=== PATIENT | female | born 1950 | race Caucasian/White ===

== ENCOUNTER → 2016-12-18 | Outpatient (CLI) | payer OTHER ==
[~2016-12-18] MED LIST: ALIGN PO; APIX1TAB3 PO; CALC8.5C PO; DIGO0.1267 PO; DILT-115 PO; FLUO40CA8 PO; LISI20TA3 PO; LSN20 PO; METO1TAB69 PO; MISC4CAP PO; MULT-506 PO; MULTCHW4 PO; MULTTAB58 PO; ONDA4TAB10 SL; OXYC-57 PO; OXYC-609 PO; OXYC1TAB3 PO; PRAV20TA PO; PRLSR20 PO; TPRSR/100 PO; VANC5CAP PO; ZINC100T2 PO; ZINC1CAP PO
[2016-12-18 16:02] LABS: URINE APPEARANCE TURBID (CLEAR); URINE COLOR DK YELLOW; URINE EPITHELIAL CELL AUTO >30 /lpf (0-5); URINE NITRITE NEG (NEG); URINE SPECIFIC GRAVITY 1.024 (1.000-1.030); UROBILINOGEN NEG (NEG)
[2016-12-18 16:19] LABS: MANUAL MICROSCOPIC REQUIRED? NO; REVIEW REQ? YES; URINE BILIRUBIN NEG (NEG)
== END | disposition home or self-care (01) ==
LOC: C.LAB1850 14:24
PROVIDERS: ATTEND Internal Medicine Infectious Disease
DX: R31.9 Hematuria, unspecified (principal)

== ENCOUNTER → 2016-12-24 | Outpatient (CLI) | payer OTHER ==
--- NOTE | 2016-12-24 11:30 | DIAGNOSTIC IMAGING REPORT ---
RENAL ULTRASOUND HISTORY: HEMATURIA COMPARISON: Abdomen and pelvis CT outside hospital 06/22/2016. FINDINGS: Right kidney: 11.4 cm. No hydronephrosis. Normal corticomedullary differentiation and cortical thickness. There is a 1 cm lower pole stone. Left kidney: 11.8 cm. No hydronephrosis. Normal corticomedullary differentiation and cortical thickness. There is a 3.5 x 3.1 cm cyst within the interpolar region. This is not significantly change. There are few stones within largest in the lower pole measuring 1 cm. Bladder: No bladder wall thickening. The bilateral ureteral jets were identified. IMPRESSION: 1. Bilateral nephrolithiasis. No hydronephrosis. 2. Left renal cyst, unchanged. Electronically signed by: Sky Gardner M.D. 12/24/2016 11:28 AM Dictated Date/Time: 12/24/2016 9:44 AM
== END | disposition home or self-care (01) ==
LOC: C.ULTR 08:53
PROVIDERS: ATTEND Internal Medicine Infectious Disease
DX: R31.9 Hematuria, unspecified (principal); N20.0 Calculus of kidney; N28.1 Cyst of kidney, acquired

== ENCOUNTER → 2016-12-27 | Outpatient (CLI) | payer OTHER ==
[2016-12-27 15:36] LABS: BASO % 0.2 %; BASO ABS # 0.01 K/uL (0-0.2); COMPLETE YES; EOS % 1.7 %; HEMATOCRIT 44.4 % (37-47); IG% 0.2 %; LYMPH % 33.1 %; LYMPH ABS # 2.13 K/uL (1.2-3.4); MEAN CELL VOLUME 96.9 fL (80-100); MEAN CORPUSCULAR HEMOGLOBIN 32.3 pg (25-34); MEAN CORPUSCULAR HGB CONC 33.3 g/dl (32-36); MEAN PLATELET VOLUME 9.4 fL (7.4-10.4); MONO % 3.6 %; NEUT % 61.2 %; PLATELET COUNT 277 K/uL (130-400); RED BLOOD COUNT 4.58 M/uL (4.2-5.4); WHITE BLOOD COUNT 6.44 K/uL (4.8-10.8)
[2016-12-27 16:21] LABS: BLOOD UREA NITROGEN 19 mg/dl (7-18); CALCIUM 9.1 mg/dl (8.5-10.1); CARBON DIOXIDE 28 mmol/L (21-32); CHLORIDE 107 mmol/L (98-107); GLUCOSE 192 mg/dl (70-99); POTASSIUM 4.1 mmol/L (3.5-5.1); SODIUM 143 mmol/L (136-145)
== END | disposition home or self-care (01) ==
LOC: C.LAB 14:34
PROVIDERS: ATTEND Urology
DX: N20.0 Calculus of kidney (principal)

== ENCOUNTER → 2017-01-04 | Day surgery (SDC) | payer OTHER ==
[2016-12-31 15:37] VITALS: Ht 160 cm; Wt 77.3 kg
[~2017-01-04] VITALS: Ht 160 cm; Wt 77.3 kg
[~2017-01-04] MED LIST changes: +ATROPINE SULFATE 0.1 MG/ML 5ML SYR IV PRN; +CIPROFLOXACIN 400MG / D5W IV SCH; +EpHEDrine SULFATE INJ 50 MG/ML AMP IV PRN; +FENTANYL CITRATE INJ 50 MCG/1 ML 2 ML VIAL IV PRN; +FENTANYL CITRATE INJ 50 MCG/1 ML 2 ML VIAL ONE; +FLUMAZENIL 0.1 MG/1 ML 10 ML VIAL IV PRN; +HYDROmorphone INJ 2 MG/ML SYR/VIAL IV PRN; +LABETALOL HCL IV 5 MG/ML 20ML IV PRN; +LACTATED RINGER'S 1000ML 1,000 ML IV SCH; +LIDOCAINE HCL 2% 2 ML VIAL (20MG/ML) ONE; -LSN20 PO; +MEPERIDINE HCL 25 MG/ML CARP IV PRN; +MIDAZOLAM HCL 1 MG/ML 2ML VIAL ONE; -MISC4CAP PO; -MULTCHW4 PO; -MULTTAB58 PO; +NALOXONE HCL 0.4 MG/1 ML VIAL/CARP IV PRN; -ONDA4TAB10 SL; +ONDANSETRON INJ 2 MG/ML 2 ML VIAL IV PRN; +ONDANSETRON INJ 2 MG/ML 2 ML VIAL ONE; +OXYCODONE/ACETAMINOPHEN 5-325 TAB PO PRN; +PHENYLEPHRINE 100MCG/ML 5ML SYR IV PRN; +PROPOFOL IV EMULSION 10 MG/ML 20 ML VIAL IV ONE; -TPRSR/100 PO; -ZINC100T2 PO
--- NOTE | 2017-01-04 11:18 | DIAGNOSTIC IMAGING REPORT ---
KUB CLINICAL HISTORY: N20.0 [id number] COMPARISON STUDY: 11/27/2016 FINDINGS: There are surgical clips within the right upper quadrant consistent with a prior cholecystectomy. There is anastomotic suture line present within the left mid abdomen and left upper quadrant. The findings are suggestive of a prior gastric bypass. There is a 13 mm lower pole right renal calculus. There are multiple small cluster left renal calculi measuring 2.6 cm in aggregate. Pelvic basin calcifications remain similar and likely represent phleboliths. IMPRESSION: Bilateral nephrolithiasis, similar to the preceding study. Electronically signed by: Shahid Dempsey M.D. 01/04/2017 11:17 AM Dictated Date/Time: 01/04/2017 11:15 AM
--- NOTE | 2017-01-04 12:08 | History & Physical Bridge Note ---
H&P Re-Evaluation Bridge Note: I have examined the patient, reviewed the History & Physical and in the interval since the performance of the History & Physical I have noted the following changes of clinical significance: No changes noted
--- NOTE | 2017-01-04 12:21 | Discharge Instructions ---
Discharge Instructions Admission Reason for Admission: Stones Discharge Discharge Diagnosis / Problem: Right renal ESWL Discharge Goals Goal(s): Decrease discomfort, Improve function, Improve disease control, Therapeutic intervention Activity Recommendations Activity Limitations: as noted below Lifting Limitations: gradually increase as tolerated Exercise/Sports Limitations: rest today May Resume Sexual Activity: when tolerated Shower/Bathe: no limitations Driving or Machine Use: resume 1 day after discharge . Instructions / Follow-Up Instructions / Follow-Up Follow-up as planned in office with KUB Xray prior to visit. Strain urine and bring in stone fragments to visit. Discharge Diet Recommended Diet: Regular Diet (good fluid intake) Procedures Procedures Performed: Right renal ESWL Pending Studies Studies pending at discharge: no Medical Emergencies . Who to Call and When: Medical Emergencies: If at any time you feel your situation is an emergency, please call 911 immediately. . Non-Emergent Contact Non-Emergency issues call your: Urologist Call Non-Emergent contact if: you have a fever, temperature is above 101, your pain is not controlled, your pain is worsening, your pain is unusual for you, your pain is concerning you, you have any medication questions . . "Provider Documentation" section prepared by Garcia Alegria. VTE Core Measure Inpt VTE Proph given/why not?: SCD's [place] Drug Monitoring Program Search Results: patient reviewed within database, no issues identified
--- NOTE | 2017-01-04 14:28 | [facility] Post Operative Brief Note ---
Immediate Operative Summary Operative Date Jan 04, 2017. Pre-Operative Diagnosis Right Renal Calculi Post-Operative Diagnosis Same Procedure(s) Performed Right Renal Extracorporeal Shock Wave Lithotripsy Surgeon Dr. Blu Alegria Dials Inspector Surgeon(s) None Estimated Blood Loss 0 mL Specimens None Drains NA Anesthesia MAC Complication(s) None Disposition Recovery Room / PACU
--- NOTE | 2017-01-04 14:51 | OPERATIVE REPORT ---
DATE OF OPERATION: 01/04/2017 PREOPERATIVE DIAGNOSIS: Right renal stone. POSTOPERATIVE DIAGNOSIS: Same. PROCEDURE: Right-sided renal extracorporeal shockwave lithotripsy. SURGEON: Dr. Garcia Alegria. JOB PLACEMENT OFFICER: None. ANESTHESIA: General anesthesia with laryngeal mask. COMPLICATIONS: None. FINDINGS: Good stone fragmentation on fluoroscopy. No intravenous antibiotics provided secondary to history of C. difficile colitis. DETAILS OF PROCEDURE: The patient was brought to the litho suite. She was correctly identified and the stone was visualized on his most recent x-rays. After the correct time out was performed the patient was positioned over the therapy head. An adequate level of anesthesia was administered. The extracorporeal shockwave lithotripsy treatment was then commenced. Please see the [place] Kidney Stone Management sheet for complete treatment summary. After completion of the procedure the patient was taken to the recovery room in stable condition. I attest to the content of the Intraoperative Record and any orders documented therein. Any exceptio ns are noted below.
[2017-01-04 15:01] VITALS: BP 154/88; PULSE 71; TEMP 36.5; O2SAT 96
--- NOTE | 2017-01-04 15:10 | Anesthesia Progress Nt - [facility] ---
Anesthesia Post Op Note Date & Time Jan 04, 2017 at 15:10 Vital Signs Pain Intensity: 0 Vital Signs Past 12 Hours Date Time Temp Pulse Resp B/P Pulse Ox O2 Delivery O2 Flow Rate FiO2 01/04/17 15:01 36.5 71 14 154/88 96 Room Air 01/04/17 14:36 36.5 62 14 128/76 96 Room Air 01/04/17 11:58 36.6 86 20 144/92 98 Room Air Notes Mental Status: alert / awake / arousable, participated in evaluation Pt Amnestic to Procedure: Yes Nausea / Vomiting: adequately controlled Pain: adequately controlled Airway Patency, RR, SpO2: stable & adequate BP & HR: stable & adequate Hydration State: stable & adequate Anesthetic Complications: no major complications apparent
== END | disposition home or self-care (01) ==
LOC: X.SURG 11:12
PROVIDERS: ATTEND Urology
DX: N20.0 Calculus of kidney (principal); R31.9 Hematuria, unspecified; I48.2 Chronic atrial fibrillation; I51.9 Heart disease, unspecified; I10 Essential (primary) hypertension; H91.90 Unspecified hearing loss, unspecified ear

== ENCOUNTER → 2017-01-17 | Outpatient (CLI) | payer OTHER ==
[~2017-01-17] MED LIST changes: -ATROPINE SULFATE 0.1 MG/ML 5ML SYR IV PRN; -CIPROFLOXACIN 400MG / D5W IV SCH; -EpHEDrine SULFATE INJ 50 MG/ML AMP IV PRN; -FENTANYL CITRATE INJ 50 MCG/1 ML 2 ML VIAL IV PRN; -FENTANYL CITRATE INJ 50 MCG/1 ML 2 ML VIAL ONE; -FLUMAZENIL 0.1 MG/1 ML 10 ML VIAL IV PRN; -HYDROmorphone INJ 2 MG/ML SYR/VIAL IV PRN; -LABETALOL HCL IV 5 MG/ML 20ML IV PRN; -LACTATED RINGER'S 1000ML 1,000 ML IV SCH; -LIDOCAINE HCL 2% 2 ML VIAL (20MG/ML) ONE; -MEPERIDINE HCL 25 MG/ML CARP IV PRN; -MIDAZOLAM HCL 1 MG/ML 2ML VIAL ONE; -NALOXONE HCL 0.4 MG/1 ML VIAL/CARP IV PRN; -ONDANSETRON INJ 2 MG/ML 2 ML VIAL IV PRN; -ONDANSETRON INJ 2 MG/ML 2 ML VIAL ONE; -OXYCODONE/ACETAMINOPHEN 5-325 TAB PO PRN; -PHENYLEPHRINE 100MCG/ML 5ML SYR IV PRN; -PROPOFOL IV EMULSION 10 MG/ML 20 ML VIAL IV ONE
--- NOTE | 2017-01-17 15:28 | DIAGNOSTIC IMAGING REPORT ---
KUB CLINICAL HISTORY: Nephrolithiasis EYES: 2 AP supine abdominal radiograph are compared to study dated 01/04/17 and correlated with abdominal CT dated 03/28/2016. There is a nonobstructed abdominal bowel gas pattern noting moderate colonic fecal retention. Suture material projects over the right upper and left lower quadrant. Cholecystectomy clips are noted. There has been partial fragmentation of a large right renal calculus as compared to previous. The largest residual fragment measures 1.3 cm. Additional smaller fragments project over the right renal pelvis. There are several stone fragments identified in the left kidney. These measure up to 7 mm. No calcifications are clearly identified projecting over the ureters. The skeletal structures are osteopenic. Mild lumbosacral spondylosis is noted. Calcified phleboliths in the pelvis are unchanged from previous. IMPRESSION: 1. The large calculus in the right kidney appears to have been partially fragmented as detailed above. 2. Additional stone fragments project over the left kidney. 3. No calcifications are clearly identified projecting over the ureters. Electronically signed by: Norberto Martinez M.D. 01/17/2017 3:26 PM Dictated Date/Time: 01/17/2017 3:23 PM
== END | disposition home or self-care (01) ==
LOC: C.RAD1850 15:07
PROVIDERS: ATTEND Urology
DX: N20.0 Calculus of kidney (principal)

== ENCOUNTER → 2017-01-17 | Outpatient (CLI) | payer OTHER ==
[2017-01-17 17:55] LABS: BASO % 0.1 %; BASO ABS # 0.01 K/uL (0-0.2); COMPLETE YES; EOS % 1.6 %; HEMATOCRIT 42.3 % (37-47); IG% 0.1 %; LYMPH % 27.8 %; LYMPH ABS # 1.94 K/uL (1.2-3.4); MEAN CELL VOLUME 94.6 fL (80-100); MEAN CORPUSCULAR HEMOGLOBIN 32.2 pg (25-34); MEAN PLATELET VOLUME 9.4 fL (7.4-10.4); MONO % 9.7 %; NEUT % 60.7 %; PLATELET COUNT 267 K/uL (130-400); RED BLOOD COUNT 4.47 M/uL (4.2-5.4); WHITE BLOOD COUNT 6.99 K/uL (4.8-10.8)
[2017-01-17 18:47] LABS: BLOOD UREA NITROGEN 17 mg/dl (7-18); BUN/CREATININE RATIO 19.4 (10-20); CALCIUM 8.8 mg/dl (8.5-10.1); CARBON DIOXIDE 25 mmol/L (21-32); CHLORIDE 109 mmol/L (98-107); CREATININE 0.87 mg/dl (0.60-1.20); GLUCOSE 132 mg/dl (70-99); POTASSIUM 3.9 mmol/L (3.5-5.1); SODIUM 144 mmol/L (136-145)
== END | disposition home or self-care (01) ==
LOC: C.LAB 16:25
PROVIDERS: ATTEND Urology
DX: N20.0 Calculus of kidney (principal)

== ENCOUNTER → 2017-01-17 | Outpatient (CLI) | payer OTHER | END | disposition home or self-care (01) | LOC: C.LABSPEC 17:30 | PROVIDERS: ATTEND Urology | DX: N20.0 Calculus of kidney (principal) ==

== ENCOUNTER → 2017-01-31 | Outpatient (CLI) | payer OTHER | END | disposition home or self-care (01) | LOC: C.LABBFT 12:01 | PROVIDERS: ATTEND Internal Medicine | DX: I48.2 Chronic atrial fibrillation (principal) ==

== ENCOUNTER → 2017-02-01 | Outpatient (CLI) | payer OTHER ==
--- NOTE | 2017-02-01 08:37 | DIAGNOSTIC IMAGING REPORT ---
KUB CLINICAL HISTORY: N20.0 NEPHROLITHIASIS COMPARISON STUDY: 01/17/2017 FINDINGS: There are surgical clips within the right upper quadrant consistent with a prior cholecystectomy. There are postsurgical changes are prior gastric bypass. There is bilateral nephrolithiasis. The findings remain similar to the preceding study. The largest cluster on the right measures 12 mm. The largest cluster on the left measures 10 mm. Pelvic basin calcifications remain similar to the prior study. IMPRESSION: Persistent bilateral nephrolithiasis. Electronically signed by: Shahid Dempsey M.D. 02/01/2017 8:35 AM Dictated Date/Time: 02/01/2017 8:34 AM
== END | disposition home or self-care (01) ==
LOC: C.RAD 07:58
PROVIDERS: ATTEND Urology
DX: R19.7 Diarrhea, unspecified (principal); N20.0 Calculus of kidney

== ENCOUNTER → 2017-02-01 | Day surgery (SDC) | payer OTHER ==
[2017-01-24 10:19] VITALS: Ht 160 cm; Wt 77.3 kg
[~2017-02-01] VITALS: Ht 160 cm; Wt 77.3 kg
[~2017-02-01] MED LIST changes: +CIPROFLOXACIN 400MG / D5W IV SCH; +DEXAMETHASONE SOD INJ 4 MG/ML VIAL ONE; +FENTANYL CITRATE INJ 50 MCG/1 ML 2 ML VIAL ONE; +LACTATED RINGER'S 1000ML 1,000 ML IV SCH; +LIDOCAINE HCL 2% 2 ML VIAL (20MG/ML) ONE; +MIDAZOLAM HCL 1 MG/ML 2ML VIAL ONE; +ONDANSETRON INJ 2 MG/ML 2 ML VIAL ONE; +PROPOFOL IV EMULSION 10 MG/ML 20 ML VIAL IV ONE
[2017-02-01 08:53] VITALS: BP 175/85; PULSE 77; TEMP 36.5; O2SAT 97
== END | disposition home or self-care (01) ==
LOC: X.SURG 08:44
PROVIDERS: ATTEND Urology
DX: N20.0 Calculus of kidney (principal)

== ENCOUNTER → 2017-02-08 | Day surgery (SDC) | payer OTHER ==
[2017-02-04 14:02] VITALS: Ht 160 cm; Wt 77.3 kg
[~2017-02-08] VITALS: Ht 160 cm; Wt 77.3 kg
[~2017-02-08] MED LIST changes: +ATROPINE SULFATE 0.1 MG/ML 5ML SYR IV PRN; +EpHEDrine SULFATE INJ 50 MG/ML AMP IV PRN; +FENTANYL CITRATE INJ 50 MCG/1 ML 2 ML VIAL IV PRN; +OXYCODONE/ACETAMINOPHEN 5-325 TAB PO PRN
--- NOTE | 2017-02-08 07:33 | DIAGNOSTIC IMAGING REPORT ---
KUB CLINICAL HISTORY: STONES nephrocalcinosis COMPARISON STUDY: 02/01/2017 FINDINGS: Bilateral nephrocalcinosis unchanged in the prior study. Nonobstructive bowel pattern. IMPRESSION: Bilateral nephrocalcinosis. No change from the prior study. Electronically signed by: Oumar Garza M.D. 02/08/2017 7:32 AM Dictated Date/Time: 02/08/2017 7:31 AM
--- NOTE | 2017-02-08 09:50 | [facility] Post Operative Brief Note ---
Immediate Operative Summary Operative Date Feb 08, 2017. Pre-Operative Diagnosis right renal stone Post-Operative Diagnosis same Procedure(s) Performed right eswl Surgeon hugh Surgical Pathologist Surgeon(s) none Estimated Blood Loss none Findings right renal stone Specimens none
--- NOTE | 2017-02-08 09:52 | Discharge Instructions-[facility] ---
Discharge Instructions Date of Service Feb 08, 2017. Visit Reason for Visit: Stones Discharge Discharge Diagnosis / Problem: stones Discharge Goals Goal(s): Therapeutic intervention Activity Recommendations Activity Limitations: resume your previous activity (take it easy today) MEDICATIONS: Resume previous medications unless instructed otherwise by your surgeon. Resume pre-ESWL medication except for aspirin, coumadin or other blood thinners. __ Toradol 10 mg every 6 hours for initial pain. __ Lortab 5 mg 1-2 every 4 hours for pain. _x_ Percocet 5 mg 1-2 every 4 hours for pain. __ Macrodantin 50 mg x 3 a day. __ Flomax 1 tab daily one half (1/2) hour after supper. SPECIAL CARE INSTRUCTIONS: 1. Get KUB (x-ray) _x_ day before or day of office visit and bring x-ray to office __ get x-ray 2 days before and tell office you are getting x-rays when you call for the appointment. 2. Strain ALL urine. 3. Please call if you have a fever, chills, severe pain, or constant dribbling of urine. 4. Office phone number . FOLLOW UP VISIT: Please call the office to schedule a follow-up appointment at . Anesthesia . Post Anesthesia Instructions: If you have had General Anesthesia or IV Sedation: * Do not drive today. * Resume driving when surgeon permits. * Do not make important decisions or sign legal documents today. * Call surgeon for: 1. Temperature elevations greater than 101 degrees F. 2. Uncontrollable pain. 3. Excessive bleeding. 4. Persistent nausea and vomiting. 5. Medication intolerance (nausea, vomiting or rash). * For nausea and vomiting use only clear liquids such as: tea, soda, bouillon until nausea subsides, then gradually increase diet as tolerated. * If you have any concerns or questions, call your surgeon's office. If physician is unavailable and it is an emergency, call 911 or go to the nearest emergency room. . Diet Recommendations Home Diet: resume previous diet Procedures Procedures Performed: right eswl Pending Studies Studies pending at discharge: no Medical Emergencies . Who to Call and When: Medical Emergencies: If at any time you feel your situation is an emergency, please call 911 immediately. . Non-Emergent Contact Non-Emergency issues call your: Urologist . . "Provider Documentation" section prepared by Damian Barnett. [place] Drug Monitoring Program Search Results: patient reviewed within database
--- NOTE | 2017-02-08 10:56 | Anesthesia Progress Nt - [facility] ---
Anesthesia Post Op Note Date & Time Feb 08, 2017 at 10:55 Vital Signs Vital Signs Past 12 Hours Date Time Temp Pulse Resp B/P Pulse Ox O2 Delivery O2 Flow Rate FiO2 02/08/17 10:48 36.8 63 16 172/82 95 Room Air 02/08/17 10:42 54 18 02/08/17 10:42 55 18 02/08/17 10:40 170/91 02/08/17 10:37 54 13 159/92 100 02/08/17 10:37 58 13 02/08/17 10:35 151/103 02/08/17 10:32 57 18 100 02/08/17 10:32 60 18 02/08/17 10:30 155/87 02/08/17 10:27 43 16 100 02/08/17 10:27 50 16 02/08/17 10:27 36.5 64 16 146/79 100 Mask 8 02/08/17 10:26 57 16 152/82 99 02/08/17 10:26 54 16 02/08/17 10:22 146/79 02/08/17 07:54 36.9 67 16 158/97 98 Room Air Notes Mental Status: alert / awake / arousable, participated in evaluation Pt Amnestic to Procedure: Yes Nausea / Vomiting: adequately controlled Pain: adequately controlled Airway Patency, RR, SpO2: stable & adequate BP & HR: stable & adequate Hydration State: stable & adequate Anesthetic Complications: no major complications apparent
[2017-02-08 11:04] VITALS: TEMP 36.4
[2017-02-08 11:30] VITALS: BP 149/76; PULSE 63; O2SAT 96
--- NOTE | 2017-02-14 09:35 | OPERATIVE REPORT ---
DATE OF OPERATION: 02/08/2017 PREOPERATIVE DIAGNOSIS: Right renal calculus. POSTOPERATIVE DIAGNOSIS: Same. PROCEDURE: Extracorporeal shockwave lithotripsy. FINDINGS: KUB showed stone right kidney. SURGEON: Dr. Barnett. ANESTHESIA: General. DRAINS: None. COMPLICATIONS: None. SPECIMENS: None. INDICATIONS: The patient is a 66-year-old white female with a right renal stone being brought in for ESWL. DETAILS OF PROCEDURE: The patient was brought to the litho suite. He was correctly identified and the stone was visualized on his most recent x-rays. After the correct time out was performed the patient was positioned over the therapy head. An adequate level of anesthesia was administered. The extracorporeal shockwave lithotripsy treatment was then commenced. Please see the [place] Kidney Stone Management sheet for complete treatment summary. After completion of the procedure the patient was taken to the recovery room in stable condition. I attest to the content of the Intraoperative Record and any orders documented therein. Any exceptio ns are noted below.
== END | disposition home or self-care (01) ==
LOC: X.SURG 07:32
PROVIDERS: ATTEND Urology
DX: N20.0 Calculus of kidney (principal); I10 Essential (primary) hypertension; I48.91 Unspecified atrial fibrillation; K21.9 Gastro-esophageal reflux disease without esophagitis; E78.5 Hyperlipidemia, unspecified; D64.9 Anemia, unspecified; G47.30 Sleep apnea, unspecified; F32.9 Major depressive disorder, single episode, unspecified; Z90.710 Acquired absence of both cervix and uterus; Z98.51 Tubal ligation status; Z98.890 Other specified postprocedural states

== ENCOUNTER → 2017-02-18 | Outpatient (CLI) | payer OTHER ==
[~2017-02-18] MED LIST changes: -ATROPINE SULFATE 0.1 MG/ML 5ML SYR IV PRN; -CIPROFLOXACIN 400MG / D5W IV SCH; -DEXAMETHASONE SOD INJ 4 MG/ML VIAL ONE; -EpHEDrine SULFATE INJ 50 MG/ML AMP IV PRN; -FENTANYL CITRATE INJ 50 MCG/1 ML 2 ML VIAL IV PRN; -FENTANYL CITRATE INJ 50 MCG/1 ML 2 ML VIAL ONE; -LACTATED RINGER'S 1000ML 1,000 ML IV SCH; -LIDOCAINE HCL 2% 2 ML VIAL (20MG/ML) ONE; -MIDAZOLAM HCL 1 MG/ML 2ML VIAL ONE; -ONDANSETRON INJ 2 MG/ML 2 ML VIAL ONE; -OXYCODONE/ACETAMINOPHEN 5-325 TAB PO PRN; -PROPOFOL IV EMULSION 10 MG/ML 20 ML VIAL IV ONE
--- NOTE | 2017-02-18 10:12 | DIAGNOSTIC IMAGING REPORT ---
KUB HISTORY: Nephrolithiasis. COMPARISON: KUB 02/08/2017. FINDINGS: The bowel gas pattern is unremarkable. There are no dilated loops of small bowel to suggest an obstruction. Prior cholecystectomy and gastric bypass. No ureteral calculi. Stable round calcifications in the deep pelvis suggestive of phleboliths. There are multiple bilateral renal calculi, unchanged. No pneumoperitoneum or pneumatosis. No ureteral calculi. IMPRESSION: Bilateral nephrolithiasis which is not significantly changed. Electronically signed by: Sky Gardner M.D. 02/18/2017 10:10 AM Dictated Date/Time: 02/18/2017 10:08 AM
== END | disposition home or self-care (01) ==
LOC: C.RAD1850 09:46
PROVIDERS: ATTEND Urology
DX: N20.0 Calculus of kidney (principal)

== ENCOUNTER → 2017-03-12 | Outpatient (CLI) | payer OTHER ==
[~2017-03-12] MED LIST changes: +METO100T44 PO; -METO1TAB69 PO
--- NOTE | 2017-03-12 14:11 | DIAGNOSTIC IMAGING REPORT ---
KUB CLINICAL HISTORY: Nephrolithiasis FINDINGS: 2 AP supine abdominal radiograph are compared to study dated 02/18/2017 and correlated with abdominal CT dated 03/28/2016. There is a nonobstructed abdominal bowel gas pattern noting moderate colonic fecal retention. Suture material projects over the right upper and left lower quadrant. Cholecystectomy clips are noted. There are least 2 large stone fragments projecting over the lower pole the right kidney. These measure 10 mm and 5 mm. Additional punctate calculi are also suspected. There several stone fragments in the left kidney are similar to 02/18/2017 and measure up to 7 mm. No calcifications are clearly identified projecting over the ureters. The skeletal structures are osteopenic. Mild lumbosacral spondylosis is noted. Calcified phleboliths in the pelvis are unchanged from previous. IMPRESSION: 1. Bilateral nephrolithiasis, overall similar in appearance to the 02/18/2017 examination. 2. No calcifications are clearly identified projecting over the ureters. Electronically signed by: Norberto Martinez M.D. 03/12/2017 2:09 PM Dictated Date/Time: 03/12/2017 2:06 PM
== END | disposition home or self-care (01) ==
LOC: C.RAD1850 13:39
PROVIDERS: ATTEND Nurse Practitioner Family
DX: N20.0 Calculus of kidney (principal)

== ENCOUNTER → 2017-03-26 | Outpatient (CLI) | payer OTHER | END | disposition home or self-care (01) | LOC: C.LAB1850 12:16 | PROVIDERS: ATTEND Internal Medicine Infectious Disease | DX: A04.7 Enterocolitis due to Clostridium difficile (principal) ==

== ENCOUNTER → 2017-04-22 | Outpatient (CLI) | payer OTHER, MEDICARE ==
--- NOTE | 2017-04-22 10:54 | DIAGNOSTIC IMAGING REPORT ---
KUB CLINICAL HISTORY: Nephrolithiasis FINDINGS: An AP supine abdominal radiograph is compared to study dated 03/12/2017 and correlated with abdominal CT dated 03/28/2016. There is a nonobstructed abdominal bowel gas pattern. Suture material projects over the right upper and left lower quadrants. Cholecystectomy clips are noted. Tiny stone fragments are suggested projecting over the lower pole the right kidney. These measure up to 3 mm. The number of fragments projecting over the left kidney have decreased from previous end measure up to 5 mm. A 5 monitor calcification projects over the left proximal ureter at the level of L3. The skeletal structures are osteopenic. Mild lumbosacral spondylosis is noted. Calcified phleboliths in the pelvis are unchanged from previous. IMPRESSION: 1. Overall decrease in the size and number of bilateral stones/stone fragments as compared to 03/12/2017. 2. A 5 mm calcification projects over the left proximal ureter and may represent a passing fragment. Electronically signed by: Norberto Martinez M.D. 04/22/2017 10:53 AM Dictated Date/Time: 04/22/2017 10:50 AM
== END | disposition home or self-care (01) ==
LOC: C.RAD1850 10:30
PROVIDERS: ATTEND Urology
DX: N20.0 Calculus of kidney (principal)

== ENCOUNTER → 2017-04-22 | Outpatient (CLI) | payer OTHER, MEDICARE | END | disposition home or self-care (01) | LOC: C.LABSPEC 17:16 | PROVIDERS: ATTEND Urology | DX: N20.0 Calculus of kidney (principal) ==

== ENCOUNTER → 2017-04-22 | Outpatient (CLI) | payer OTHER, MEDICARE ==
[2017-04-22 14:57] LABS: BASO % 0.3 %; BASO ABS # 0.02 K/uL (0-0.2); COMPLETE YES; EOS % 1.6 %; HEMATOCRIT 45.9 % (37-47); IG% 0.2 %; LYMPH % 24.8 %; LYMPH ABS # 1.55 K/uL (1.2-3.4); MEAN CELL VOLUME 98.3 fL (80-100); MEAN CORPUSCULAR HEMOGLOBIN 32.1 pg (25-34); MEAN CORPUSCULAR HGB CONC 32.7 g/dl (32-36); MEAN PLATELET VOLUME 9.3 fL (7.4-10.4); MONO % 6.6 %; NEUT % 66.5 %; PLATELET COUNT 223 K/uL (130-400); RED BLOOD COUNT 4.67 M/uL (4.2-5.4); WHITE BLOOD COUNT 6.25 K/uL (4.8-10.8)
[2017-04-22 15:23] LABS: BLOOD UREA NITROGEN 18 mg/dl (7-18); BUN/CREATININE RATIO 19.7 (10-20); CARBON DIOXIDE 27 mmol/L (21-32); CHLORIDE 109 mmol/L (98-107); CREATININE 0.93 mg/dl (0.60-1.20); POTASSIUM 3.8 mmol/L (3.5-5.1); SODIUM 143 mmol/L (136-145)
== END | disposition home or self-care (01) ==
LOC: C.LAB 14:09
PROVIDERS: ATTEND Urology
DX: N20.0 Calculus of kidney (principal)

== ENCOUNTER → 2017-04-26 | Outpatient (CLI) | payer OTHER, MEDICARE ==
[~2017-04-26] MED LIST changes: -OXYC-57 PO; -VANC5CAP PO
--- NOTE | 2017-04-26 08:47 | DIAGNOSTIC IMAGING REPORT ---
KUB HISTORY: NEPHROLITHIASIS COMPARISON: KUB 04/22/2017. FINDINGS: The bowel gas pattern is unremarkable. There are no dilated loops of small bowel to suggest an obstruction. No change in the bilateral nephrolithiasis. Cholecystectomy. Calcifications in the deep pelvis also remain stable and likely represent phleboliths. No definite ureteral calculi identified this time. Suture material within the left side the abdomen. No pneumoperitoneum or pneumatosis. IMPRESSION: Stable bilateral nephrolithiasis. No definite ureteral calculi. Electronically signed by: Sky Gardner M.D. 04/26/2017 8:45 AM Dictated Date/Time: 04/26/2017 8:44 AM
== END | disposition home or self-care (01) ==
LOC: C.RAD 06:58
PROVIDERS: ATTEND Urology
DX: N20.0 Calculus of kidney (principal)

== ENCOUNTER → 2017-04-26 | Day surgery (SDC) | payer OTHER, MEDICARE ==
[2017-04-24 10:54] VITALS: Ht 160 cm; Wt 81.8 kg
[~2017-04-26] VITALS: Ht 160 cm; Wt 81.8 kg
[~2017-04-26] MED LIST changes: +ATROPINE SULFATE 0.1 MG/ML 5ML SYR IV PRN; +CIPROFLOXACIN 400MG / D5W IV SCH; +DEXAMETHASONE SOD INJ 4 MG/ML VIAL ONE; +EpHEDrine SULFATE INJ 50 MG/ML AMP IV PRN; +FENTANYL CITRATE INJ 50 MCG/1 ML 2 ML VIAL IV PRN; +FENTANYL CITRATE INJ 50 MCG/1 ML 2 ML VIAL ONE; +HydrALAZINE HCL 20 MG/ML VIAL IM STA; +HydrALAZINE HCL 20 MG/ML VIAL ONE; +LACTATED RINGER'S 1000ML 1,000 ML IV SCH; +LIDOCAINE HCL 2% 2 ML VIAL (20MG/ML) ONE; +MIDAZOLAM HCL 1 MG/ML 2ML VIAL ONE; +NURSING VERBAL MED ORDER ONE; +ONDANSETRON INJ 2 MG/ML 2 ML VIAL ONE; +OXYCODONE/ACETAMINOPHEN 5-325 TAB PO PRN; +PROPOFOL IV EMULSION 10 MG/ML 20 ML VIAL IV ONE
--- NOTE | 2017-04-26 09:27 | Discharge Instructions ---
Discharge Instructions Date of Service April 26, 2017. Admission Reason for Admission: STONE Discharge Discharge Diagnosis / Problem: L renal stone s/p ESWL Discharge Goals Goal(s): Decrease discomfort, Improve disease control, Therapeutic intervention Activity Recommendations Activity Limitations: per Instructions/Follow-up section Lifting Limitations: no more than 25 pounds, gradually increase as tolerated Exercise/Sports Limitations: rest today, gradually increase as tolerated May Resume Sexual Activity: when tolerated Shower/Bathe: no limitations Driving or Machine Use: resume 1 day after discharge . Instructions / Follow-Up Instructions / Follow-Up Strain urine as instructed KUB Xray before follow-up visit in office Discharge Diet Recommended Diet: Regular Diet (good fluid intake) Procedures Procedures Performed: L renal ESWL Pending Studies Studies pending at discharge: no Medical Emergencies . Who to Call and When: Medical Emergencies: If at any time you feel your situation is an emergency, please call 911 immediately. . Non-Emergent Contact Non-Emergency issues call your: Urologist Call Non-Emergent contact if: you have a fever, temperature is above 101, your pain is not controlled, your pain is worsening, your pain is unusual for you, your pain is concerning you, you have any medication questions . . "Provider Documentation" section prepared by Garcia Alegria. . VTE Core Measure Inpt VTE Proph given/why not?: SCD's [place] Drug Monitoring Program Search Results: patient reviewed within database, see additional documentation (regular Rx for pain medication from numerous providers - short Rx provided for postop analgesia)
--- NOTE | 2017-04-26 09:28 | [facility] Post Operative Brief Note ---
Immediate Operative Summary Operative Date April 26, 2017. Pre-Operative Diagnosis Left renal stone Post-Operative Diagnosis Same Procedure(s) Performed L renal ESWL Surgeon Dr Hannah Alegria Radio Installer Surgeon(s) 0 Estimated Blood Loss 0 Findings Good stone fragmentation Specimens 0 Drains NA Anesthesia GALMA Complication(s) None Disposition Recovery Room / PACU
--- NOTE | 2017-04-26 09:55 | OPERATIVE REPORT ---
DATE OF OPERATION: 04/26/2017 PREOPERATIVE DIAGNOSIS: Left renal stones. POSTOPERATIVE DIAGNOSIS: Same. PROCEDURE: Left-sided extracorporeal shockwave lithotripsy, renal. SURGEON: Dr. Garcia Alegria. ROVING CHANGER: None. ANESTHESIA: General anesthesia with laryngeal mask. COMPLICATIONS: None. FINDINGS: Good stone fragmentation on fluoroscopic imaging. DETAILS OF PROCEDURE: The patient was brought to the litho suite. She was correctly identified and the stone was visualized on her most recent x-rays. After the correct time out was performed the patient was positioned over the therapy head. An adequate level of anesthesia was administered. The extracorporeal shockwave lithotripsy treatment was then commenced. Please see the [place] Kidney Stone Management sheet for complete treatment summary. After completion of the procedure the patient was taken to the recovery room in stable condition. I attest to the content of the Intraoperative Record and any orders documented therein. Any exceptio ns are noted below.
[2017-04-26 10:51] VITALS: TEMP 36.6
--- NOTE | 2017-04-26 10:54 | Anesthesia Progress Nt - [facility] ---
Anesthesia Post Op Note Date & Time April 26, 2017 at 10:54 Vital Signs Pain Intensity: 0 Vital Signs Past 12 Hours Date Time Temp Pulse Resp B/P Pulse Ox O2 Delivery O2 Flow Rate FiO2 04/26/17 10:43 36.7 78 16 152/77 96 Room Air 04/26/17 10:41 152/77 04/26/17 10:40 80 22 95 04/26/17 10:40 78 22 04/26/17 10:36 160/91 04/26/17 10:35 78 12 96 04/26/17 10:35 76 12 04/26/17 10:31 172/109 04/26/17 10:30 71 17 96 04/26/17 10:30 76 17 04/26/17 10:26 160/88 04/26/17 10:25 76 17 04/26/17 10:25 65 17 95 04/26/17 10:21 173/96 04/26/17 10:20 68 16 04/26/17 10:20 70 16 96 04/26/17 10:16 178/102 04/26/17 10:15 73 15 99 04/26/17 10:15 72 15 04/26/17 10:11 187/88 04/26/17 10:10 70 18 04/26/17 10:10 65 18 100 04/26/17 10:06 193/114 04/26/17 10:05 70 19 100 04/26/17 10:05 70 19 04/26/17 10:01 179/107 04/26/17 10:00 70 12 100 04/26/17 10:00 67 12 04/26/17 09:56 194/104 04/26/17 09:55 70 15 04/26/17 09:55 72 15 100 04/26/17 09:53 194/111 04/26/17 09:51 185/106 04/26/17 09:50 65 31 04/26/17 09:50 63 31 100 04/26/17 09:46 178/102 04/26/17 09:45 68 31 04/26/17 09:45 71 31 100 04/26/17 09:41 170/102 04/26/17 09:40 70 16 100 04/26/17 09:40 67 16 04/26/17 09:36 165/95 04/26/17 09:35 64 15 100 04/26/17 09:35 62 15 04/26/17 09:31 161/100 04/26/17 09:30 36.4 65 16 161/100 100 Mask 6 04/26/17 09:30 64 97 04/26/17 09:30 64 04/26/17 07:43 36.6 88 18 162/101 96 Room Air Notes Mental Status: alert / awake / arousable, participated in evaluation Pt Amnestic to Procedure: Yes Nausea / Vomiting: adequately controlled Pain: adequately controlled Airway Patency, RR, SpO2: stable & adequate BP & HR: stable & adequate Hydration State: stable & adequate Anesthetic Complications: no major complications apparent
[2017-04-26 11:17] VITALS: BP 134/66; PULSE 74; O2SAT 96
== END | disposition home or self-care (01) ==
LOC: X.SURG 07:28
PROVIDERS: ATTEND Urology
DX: N20.0 Calculus of kidney (principal); I48.2 Chronic atrial fibrillation; I10 Essential (primary) hypertension; K21.9 Gastro-esophageal reflux disease without esophagitis; Z90.49 Acquired absence of other specified parts of digestive tract; Z98.51 Tubal ligation status; Z98.84 Bariatric surgery status; Z98.890 Other specified postprocedural states; Z90.710 Acquired absence of both cervix and uterus; Z87.891 Personal history of nicotine dependence; Z83.3 Family history of diabetes mellitus; Z80.0 Family history of malignant neoplasm of digestive organs; Z82.49 Family history of ischemic heart disease and other diseases of the circulatory system

== ENCOUNTER → 2017-05-06 | Outpatient (CLI) | payer OTHER, MEDICARE ==
[~2017-05-06] MED LIST changes: -ATROPINE SULFATE 0.1 MG/ML 5ML SYR IV PRN; -CIPROFLOXACIN 400MG / D5W IV SCH; -DEXAMETHASONE SOD INJ 4 MG/ML VIAL ONE; -EpHEDrine SULFATE INJ 50 MG/ML AMP IV PRN; -FENTANYL CITRATE INJ 50 MCG/1 ML 2 ML VIAL IV PRN; -FENTANYL CITRATE INJ 50 MCG/1 ML 2 ML VIAL ONE; -HydrALAZINE HCL 20 MG/ML VIAL IM STA; -HydrALAZINE HCL 20 MG/ML VIAL ONE; -LACTATED RINGER'S 1000ML 1,000 ML IV SCH; -LIDOCAINE HCL 2% 2 ML VIAL (20MG/ML) ONE; -MIDAZOLAM HCL 1 MG/ML 2ML VIAL ONE; -NURSING VERBAL MED ORDER ONE; -ONDANSETRON INJ 2 MG/ML 2 ML VIAL ONE; -OXYCODONE/ACETAMINOPHEN 5-325 TAB PO PRN; -PROPOFOL IV EMULSION 10 MG/ML 20 ML VIAL IV ONE
--- NOTE | 2017-05-06 14:33 | DIAGNOSTIC IMAGING REPORT ---
KUB CLINICAL HISTORY: Nephrolithiasis. COMPARISON STUDY: KUB April 26, [address] of the abdomen and pelvis March 28, 2016. FINDINGS: Numerous bilateral renal calculi are again noted. Pelvic calcifications are unchanged and represent phleboliths or vascular calcifications. No ureteral calculi are identified on this exam although sensitivity is diminished given stool and gas within bowel. IMPRESSION: 1. Extensive bilateral nephrolithiasis. 2. No ureteral calculi identified. Electronically signed by: Robe Patterson M.D. 05/06/2017 2:32 PM Dictated Date/Time: 05/06/2017 2:08 PM
== END | disposition home or self-care (01) ==
LOC: C.RAD 12:20
PROVIDERS: ATTEND Urology
DX: N20.0 Calculus of kidney (principal)

== ENCOUNTER → 2017-06-13 | Day surgery (SDC) | payer OTHER, MEDICARE ==
[2017-06-12 14:37] VITALS: Ht 160 cm; Wt 83.6 kg
[~2017-06-13] VITALS: Ht 160 cm; Wt 83.6 kg
[~2017-06-13] MED LIST changes: +LABETALOL HCL IV 5 MG/ML 20ML IV ONE; +LIDOCAINE HCL 2% 2 ML VIAL (20MG/ML) ONE; -METO100T44 PO; +METO1TAB69 PO; +MIDAZOLAM HCL 1 MG/ML 2ML VIAL ONE; -OXYC-609 PO; +PROPOFOL IV EMULSION 10 MG/ML 20 ML VIAL IV ONE; +SODIUM CHLORIDE 0.9% 500ML 500 ML IV ONE
--- NOTE | 2017-06-13 13:44 | Endo History and Physical ---
History & Physical Date of Service: Jun 13, 2017. Chief Complaint: DIARRHEA, N/V, ABD PAIN Referring Physician: DR MONTOYA History of Present Illness Pt with diarrhea, change in BM; abdominal pain, nausea with prior gastric mass on [id number]) Past Medical History Atrial Fibrillation, Reflux Past Surgical History Hx Cardiac Surgery: Yes (CARDIAC ALBATION X 2) Hx Internal Defibrillator: No Hx Pacemaker: No Hx Abdominal Surgery: Yes (TUBAL LIGATION, GASTRIC BYPASS, ABDOMINAL MASS REMOVED X 2) Hx of Implantable Prosthesis: No Hx Post-Op Nausea and Vomiting: No Hx Cancer Surgery: No Hx Thoracic Surgery: No Hx Orthopedic: No Hx Urinary Tract Surgery: Yes (LITHOTRIPSY) Family History None Social History Smoking Status: Former Smoker Hx Substance Use: Yes (SEE MED REC) Hx Alcohol Use: Yes (RARELY) Allergies Coded Allergies: No Known Allergies (Verified , 06/13/17) Current Medications Reported Home Medications Medications Dose Route/Sig Max Daily Dose Days Date Category Dose Instructions Roxicodone Ir (Oxycodone HCl) 5 Mg Tab 5 Mg PO Q6H PRN 06/12/17 Reported Eliquis (Apixaban) 5 Mg Tab 5 Mg PO BID 04/24/17 Reported PRESENTLY STOPPED PER RECOMMENDATIONS. Zinc Sulfate 220 Mg Cap 2 Tab PO QAM 12/31/16 Reported Viactiv (Calcium W/ Vitamins D & K) 1 Chw Chw 1 Tab PO QAM 12/31/16 Reported Prilosec (Omeprazole) 20 Mg Capcr 20 Mg PO QAM 12/31/16 Reported Multivitamin (Multivitamins) Tab 1 Tab PO QAM 12/31/16 Reported Toprol-Xl (Metoprolol Succinate) 100 Mg Tabcr 200 Mg PO QAM 12/31/16 Reported Prinivil (Lisinopril) 20 Mg Tab 20 Mg PO QAM 12/31/16 Reported [Align] 1 Tab PO QAM 12/31/16 Reported Pravachol (Pravastatin Sodium) 20 Mg Tab 20 Mg PO HS 10/20/15 Reported Prozac (Fluoxetine HCl) 40 Mg Cap 40 Mg PO QAM 10/20/15 Reported Tiazac (Diltiazem HCl) 240 Mg Capcr 240 Mg PO QAM 10/20/15 Reported Lanoxin (Digoxin) 0.125 Mg Tab 1 Tab PO QAM 10/20/15 Reported Vital Signs Weight (Kilograms): 83.64 Height (Feet): 5 Height (Inches): 3 Date Time Temp Pulse Resp B/P (MAP) Pulse Ox O2 Delivery O2 Flow Rate FiO2 06/13/17 13:25 36.9 114 18 140/125 (130) 95 Room Air Physical Exam AAOx3 Nls1s2 Lungs CTA Abd soft mild tender in epigastrium; + BS - CCE Assessment and Plan EGD with bx; colon with biopsy
--- NOTE | 2017-06-13 14:31 | GI REPORT ---
Procedure Date: 06/13/2017 1:16 PM Procedure: Colonoscopy Indications: Chronic diarrhea Medicines: Propofol per Anesthesia Complications: No immediate complications. Estimated blood loss: Minimal. Estimated Blood Loss: Estimated blood loss was minimal. Procedure: Pre-Anesthesia Assessment: - Prior to the procedure, a History and Physical was performed, and patient medications and allergies were reviewed. The patient's tolerance of previous anesthesia was also reviewed. The risks and benefits of the procedure and the sedation options and risks were discussed with the patient. All questions were answered, and informed consent was obtained. Prior Anticoagulants: The patient has taken no previous anticoagulant or antiplatelet agents. ASA Grade Assessment: III - A patient with severe systemic disease. After reviewing the risks and benefits, the patient was deemed in satisfactory condition to undergo the procedure. After I obtained informed consent, the scope was passed under direct vision. Throughout the procedure, the patient's blood pressure, pulse, and oxygen saturations were monitored continuously. The scope was introduced through the anus and advanced to the terminal ileum, with identification of the appendiceal orifice and IC valve. The colonoscopy was performed without difficulty. The patient tolerated the procedure well. The quality of the bowel preparation was good. Findings: The perianal and digital rectal examinations were normal. Pertinent negatives include normal sphincter tone, no palpable rectal lesions and no anal lesion or abnormality was detected. The ileum appeared normal. Biopsies were taken with a cold forceps for histology. Verification of patient identification for the specimen was done by the physician and paint prep technician using the patient's name and medical record number. The descending colon and ascending colon appeared normal. Biopsies for histology were taken with a cold forceps from the ascending colon and descending colon for evaluation of microscopic colitis. Estimated blood loss was minimal. Verification of patient identification for the specimen was done by the physician and paint prep technician using the patient's name and medical record number. The exam was otherwise without abnormality. Non-bleeding internal hemorrhoids were found during retroflexion. The hemorrhoids were mild and small. Impression: - The terminal ileum is normal. Biopsied. - The descending colon and ascending colon are normal. Biopsied. - The examination was otherwise normal. - Non-bleeding internal hemorrhoids. Recommendation: - Discharge patient to home (ambulatory). - Advance diet as tolerated. - Continue present medications. - Await pathology results. - Return to GI clinic as previously scheduled. MD Taco Linares MD 06/13/2017 2:30:27 PM This report has been signed electronically. Note Initiated On: 06/13/2017 1:16 PM I attest to the content of the Intraoperative Record and orders documented therein, exceptions below
--- NOTE | 2017-06-13 14:40 | GI REPORT ---
Procedure Date: 06/13/2017 1:30 PM Procedure: Upper GI endoscopy Indications: Epigastric abdominal pain, Diarrhea, Vomiting Medicines: Propofol per Anesthesia Complications: No immediate complications. Estimated blood loss: Minimal. Estimated Blood Loss: Estimated blood loss was minimal. Procedure: Pre-Anesthesia Assessment: - Prior to the procedure, a History and Physical was performed, and patient medications and allergies were reviewed. The patient's tolerance of previous anesthesia was also reviewed. The risks and benefits of the procedure and the sedation options and risks were discussed with the patient. All questions were answered, and informed consent was obtained. Prior Anticoagulants: The patient has taken no previous anticoagulant or antiplatelet agents. ASA Grade Assessment: III - A patient with severe systemic disease. After reviewing the risks and benefits, the patient was deemed in satisfactory condition to undergo the procedure. After obtaining informed consent, the endoscope was passed under direct vision. Throughout the procedure, the patient's blood pressure, pulse, and oxygen saturations were monitored continuously. The scope was introduced through the mouth, and advanced to the second part of duodenum. The upper GI endoscopy was accomplished without difficulty. The patient tolerated the procedure well. Findings: The examined esophagus was normal. A widely patent and non-obstructing Schatzki ring (acquired) was found at the gastroesophageal junction. A small hiatus hernia was found. The proximal extent of the gastric folds (end of tubular esophagus) was 37 cm from the incisors. The hiatal narrowing was 40 cm from the incisors. The Z-line was 37 cm from the incisors. Evidence of a patent Billroth I appearing gastroduodenostomy was found. A gastric pouch was found containing sutures. The gastroduodenal anastomosis was characterized by erythema, inflammation and an intact suture line. This was traversed. Biopsies were taken with a cold forceps for Helicobacter pylori testing. Verification of patient identification for the specimen was done by the physician and photographic laboratory technician using the patient's name and medical record number. The examined jejunum was normal. Biopsies were taken with a cold forceps for histology. Verification of patient identification for the specimen was done by the physician and photographic laboratory technician using the patient's name and medical record number. The cardia and gastric fundus were normal on retroflexion. Retained gastric contents are not identified on this exam. Impression: - Normal esophagus. - Widely patent and non-obstructing Schatzki ring. - Small hiatus hernia. - Patent Billroth I appearing gastroduodenostomy was found, characterized by erythema, inflammation and an intact staple line. Biopsied. - Normal examined jejunum. Biopsied. Recommendation: - Discharge patient to home (ambulatory). - Advance diet as tolerated. - Continue present medications. - Resume Eliquis (apixaban) at prior dose tomorrow. - Await pathology results. - Return to GI clinic as previously scheduled. - Perform a colonoscopy today. MD Taco Linares MD 06/13/2017 2:40:01 PM This report has been signed electronically. Note Initiated On: 06/13/2017 1:30 PM I attest to the content of the Intraoperative Record and orders documented therein, exceptions below
--- NOTE | 2017-06-13 14:42 | Discharge Instructions ---
Endoscopy Patient Instructions Date / Procedure(s) Performed Jun 13, 2017. Colonoscopy, EGD Allergy Information Coded Allergies: No Known Allergies (Verified , 06/13/17) Discharge Date / Findings Jun 13, 2017. 10 colon with mild diverticulosis and otherwise normal( biopsied for diarrhea) EGD wioth post op changes and mild gastritis Medication Instructions Stopped Medication(s): ELIQUIS 06/10/17 Restart Stopped Medication(s): Reported Home Medications Medications Dose Route/Sig Max Daily Dose Days Date Category Dose Instructions Roxicodone Ir (Oxycodone HCl) 5 Mg Tab 5 Mg PO Q6H PRN 06/12/17 Reported Eliquis (Apixaban) 5 Mg Tab 5 Mg PO BID 04/24/17 Reported PRESENTLY STOPPED PER RECOMMENDATIONS. Zinc Sulfate 220 Mg Cap 2 Tab PO QAM 12/31/16 Reported Viactiv (Calcium W/ Vitamins D & K) 1 Chw Chw 1 Tab PO QAM 12/31/16 Reported Prilosec (Omeprazole) 20 Mg Capcr 20 Mg PO QAM 12/31/16 Reported Multivitamin (Multivitamins) Tab 1 Tab PO QAM 12/31/16 Reported Toprol-Xl (Metoprolol Succinate) 100 Mg Tabcr 200 Mg PO QAM 12/31/16 Reported Prinivil (Lisinopril) 20 Mg Tab 20 Mg PO QAM 12/31/16 Reported [Align] 1 Tab PO QAM 12/31/16 Reported Pravachol (Pravastatin Sodium) 20 Mg Tab 20 Mg PO HS 10/20/15 Reported Prozac (Fluoxetine HCl) 40 Mg Cap 40 Mg PO QAM 10/20/15 Reported Tiazac (Diltiazem HCl) 240 Mg Capcr 240 Mg PO QAM 10/20/15 Reported Lanoxin (Digoxin) 0.125 Mg Tab 1 Tab PO QAM 10/20/15 Reported Resume Eliquis tomorrow resume Eliquis tomorrow Provider Instructions Activity Restrictions - No exercising or heavy lifting for 24 hours. - Do not drink alcohol the day of the procedure. - Do not drive a car or operate machinery until the day after the procedure. - Do not make any important decisions or sign important papers in 24 hours after the procedure. Following Day: - Return to full activity which may include returning to work/school. Diet Start your diet with liquids and light foods (jello, soup, juice, toast). Then eat your usual diet if not nauseated. Treatment For Common After Affects For mild abdominal pain, bloating, or excessive gas: - Rest - Eat lightly - Lie on right side Follow-Up Information Follow-up with DR MONTOYA as scheduled Anesthesia Information What You Should Know You have had a procedure that required some medicine to reduce anxiety and discomfort. This treatment is called moderate sedation. After receiving the treatment, you may be sleepy, but you will be able to breathe on your own. The effects of the treatment may last for several hours. Follow these instructions along with Activity/Diet recommendations noted above: * Do NOT do anything where dizziness or clumsiness would be dangerous. * Rest quietly at home today, then you can be up and about tomorrow. * Have a responsible person stay with you the rest of today. * You may have had an I.V. today. If so, you may take the dressing off later today. Recommendations Call your doctor if: * Trouble breathing * Continuous vomiting for more than 24 hours * Temperature above 101 degrees * Severe abdominal pain or bloating * Pain not relieved by pain medicine ordered * There is increased drainage or redness from any incision * A large amount of rectal bleeding greater than 2-3 tablespoons. (If you had a polyp/s removed or have hemorrhoids, a small amount of blood - from the rectum is to be expected.) * You have any unanswered questions or concerns. IN THE EVENT OF A SERIOUS EMERGENCY, GO TO THE NEAREST EMERGENCY ROOM Your discharge instructions were prepared by provider Taco Ortiz. Patient Instructions Signature Page Tea Dawkins Patient (or Guardian) Signature/Date: I have read and understand the instructions given to me by my caregivers. Caregiver/RN/Doctor Signature/Date: The above-named patient and/or guardian has received patient instructions on this date. + Original Patient Signature Page (only) stays with chart. Please make copy for patient.
[2017-06-13 14:50] VITALS: BP 126/89; PULSE 131; O2SAT 96
--- NOTE | 2017-06-13 15:17 | Anesthesiology Progress Note ---
Anesthesia Post Op Note Date & Time Jun 13, 2017 at 15:13 Vital Signs Pain Intensity: 0 Vital Signs Past 12 Hours Date Time Temp Pulse Resp B/P (MAP) Pulse Ox O2 Delivery O2 Flow Rate FiO2 06/13/17 14:50 131 16 126/89 (101) 96 Room Air 06/13/17 14:35 118 16 166/75 (105) 96 Room Air 06/13/17 14:20 113 12 109/72 (84) 95 Mask 5 06/13/17 13:35 158/92 (114) Room Air 06/13/17 13:25 36.9 114 18 140/125 (130) 95 Room Air Notes Mental Status: alert / awake / arousable, participated in evaluation Pt Amnestic to Procedure: Yes Nausea / Vomiting: adequately controlled Pain: adequately controlled Airway Patency, RR, SpO2: stable & adequate BP & HR: stable & adequate Hydration State: stable & adequate Anesthetic Complications: no major complications apparent Pt continues to have irregular rhythm in PACU with significantly fluctuating rate by monitors. Pulse check showed rate consistently in 117s which is at her preop baseline. Patient without symptoms and otherwise hemodynamically stable. Ok to d/c home.
== END | disposition home or self-care (01) ==
LOC: C.GI 12:25
PROVIDERS: ATTEND Internal Medicine Gastroenterology
DX: R19.7 Diarrhea, unspecified (principal); R11.2 Nausea with vomiting, unspecified; R10.13 Epigastric pain; K44.9 Diaphragmatic hernia without obstruction or gangrene; K57.30 Diverticulosis of large intestine without perforation or abscess without bleeding; K29.70 Gastritis, unspecified, without bleeding; Z93.8 Other artificial opening status; Z98.84 Bariatric surgery status; Z87.891 Personal history of nicotine dependence

== ENCOUNTER → 2017-06-18 | Outpatient (CLI) | payer OTHER, MEDICARE ==
[~2017-06-18] MED LIST changes: -LABETALOL HCL IV 5 MG/ML 20ML IV ONE; -LIDOCAINE HCL 2% 2 ML VIAL (20MG/ML) ONE; -MIDAZOLAM HCL 1 MG/ML 2ML VIAL ONE; -PROPOFOL IV EMULSION 10 MG/ML 20 ML VIAL IV ONE; -SODIUM CHLORIDE 0.9% 500ML 500 ML IV ONE
[2017-06-18 18:07] LABS: BASO % 0.3 %; BASO ABS # 0.02 K/uL (0-0.2); COMPLETE YES; EOS % 0.7 %; HEMATOCRIT 41.1 % (37-47); IG% 0.1 %; LYMPH % 20.1 %; LYMPH ABS # 1.44 K/uL (1.2-3.4); MEAN CELL VOLUME 98.3 fL (80-100); MEAN CORPUSCULAR HEMOGLOBIN 32.8 pg (25-34); MEAN CORPUSCULAR HGB CONC 33.3 g/dl (32-36); MEAN PLATELET VOLUME 9.6 fL (7.4-10.4); MONO % 7.8 %; PLATELET COUNT 272 K/uL (130-400); RED BLOOD COUNT 4.18 M/uL (4.2-5.4); WHITE BLOOD COUNT 7.17 K/uL (4.8-10.8)
[2017-06-18 18:27] LABS: THYROID STIMULATING HORMONE 1.37 uIu/ml (0.300-4.500)
== END | disposition home or self-care (01) ==
LOC: C.LABBFT 11:57
PROVIDERS: ATTEND Physician Assistant Medical
DX: R10.9 Unspecified abdominal pain (principal); I48.2 Chronic atrial fibrillation; R53.83 Other fatigue

== ENCOUNTER → 2017-06-25 | Outpatient (CLI) | payer OTHER, MEDICARE ==
[2017-06-25 12:54] LABS: BLOOD UREA NITROGEN 15 mg/dl (7-18); BUN/CREATININE RATIO 19.1 (10-20); CALCIUM 8.8 mg/dl (8.5-10.1); CARBON DIOXIDE 28 mmol/L (21-32); CHLORIDE 111 mmol/L (98-107); CHOLESTEROL 152 mg/dl (0-200); CHOLESTEROL/HDL RATIO 2.9; GLUCOSE 87 mg/dl (70-99); HDL CHOLESTEROL 53 mg/dl; LDL CHOLESTEROL CALCULATED 80 mg/dl; MAGNESIUM 1.9 mg/dl (1.8-2.4); POTASSIUM 4.8 mmol/L (3.5-5.1); SODIUM 143 mmol/L (136-145); TRIGLYCERIDES 94 mg/dl (0-150); VERY LOW DENSITY LIPOPROT CALC 19 mg/dl
== END | disposition home or self-care (01) ==
LOC: C.LABBFT 09:44
PROVIDERS: ATTEND Internal Medicine
DX: I48.2 Chronic atrial fibrillation (principal); E78.5 Hyperlipidemia, unspecified

== ENCOUNTER → 2017-06-26 | Outpatient (CLI) | payer OTHER, MEDICARE | END | disposition home or self-care (01) | LOC: C.LABBFT 10:09 | PROVIDERS: ATTEND Internal Medicine | DX: R19.7 Diarrhea, unspecified (principal) ==

== ENCOUNTER → 2017-06-28 | Outpatient (CLI) | payer OTHER, MEDICARE ==
[~2017-06-28] MED LIST changes: +OPTIRAY 320 IV PRN
--- NOTE | 2017-06-28 11:43 | DIAGNOSTIC IMAGING REPORT ---
CT SCAN OF THE ABDOMEN AND PELVIS WITH IV CONTRAST CLINICAL HISTORY: Generalized abdominal pain. COMPARISON STUDY: KUB dated 05/06/2017. Abdominal CT dated 03/28/2016. TECHNIQUE: Following the IV administration of 93 cc of Optiray 320, CT scan of the abdomen and pelvis is performed from the lung bases to the proximal femora. Images are reviewed in the axial, sagittal, and coronal planes. IV contrast was administered without complication. Automated dose control exposure was utilized. A dose lowering technique was utilized adhering to the principles of ALARA. CT DOSE: 854.41 mGycm FINDINGS: Lung bases: The heart is enlarged and without pericardial effusion. The lung bases are clear. Liver: The contrast-enhanced liver is normal in size, contour, and attenuation. There is mild central intrahepatic biliary ductal dilatation. The hepatic veins and portal veins are patent. Gallbladder: Surgically absent noting clips in the gallbladder fossa. Spleen: Normal in size and attenuation. Pancreas: Unremarkable. Adrenal glands: Unremarkable. Kidneys: The contrast enhanced kidneys are atrophic and without hydronephrosis. The kidneys enhance symmetrically. There is a 3.7 cm left renal cyst. Additional smaller cysts and too small to characterize hypodensities are similar to previous. There are numerous bilateral nonobstructing renal calculi. Abdominal vasculature: The abdominal aorta is normal in course and caliber noting moderate to advanced atherosclerotic calcification. Stomach and bowel: There is a tiny hiatal hernia. Postoperative changes are consistent with a Ngoc-en-Y gastric bypass procedure. No bowel obstruction is seen. The appendix is well-visualized and normal. Peritoneum: There is no intraperitoneal free air or abdominal ascites. There is no regular mesenteric lesion seen on axial image #206. This measures approximately 2.5 x 1.5 cm. Numerous additional tiny mesenteric nodules are seen. A lesion on image #155 measures 10 mm, lesions seen on image #191 measure up to 8 mm, and numerous nodules on image #223 measure up to 8 mm. Lymphadenopathy: Prominent retroperitoneal lymph nodes measure up to 8mm in short axis. Pelvic viscera: The bladder is normal as visualized. The uterus is surgically absent. No adnexal lesion is seen. Findings suggest pelvic floor prolapse. Skeletal structures: The skeletal structures are osteopenic. Mild lumbosacral spondylosis is observed. No lytic or blastic lesions are seen. Remodeling of several posterior lumbar vertebral bodies is similar to prior studies and of doubtful significance. IMPRESSION: 1. There are no acute infectious or inflammatory findings in the abdomen or pelvis. 2. There are postoperative changes from a gastric bypass surgery. No bowel obstruction is seen. 3. There are numerous bilateral nonobstructing renal calculi. 4. Cardiomegaly. 5. A 2.5 cm mesenteric lesion is identified, with numerous additional peritoneal nodules. This is been seen on multiple prior examinations and appears to waxed/waned or time. This could represent mesenteric inflammation/fibrosis, with metastatic disease considered less likely but not excluded. Correlation the patient's medical history will be essential. 6. Additional findings as above. Electronically signed by: Norberto Martinez M.D. 06/28/2017 11:42 AM Dictated Date/Time: 06/28/2017 11:25 AM
== END | disposition home or self-care (01) ==
LOC: C.CTS 09:14
PROVIDERS: ATTEND Internal Medicine
DX: R10.9 Unspecified abdominal pain (principal); N20.0 Calculus of kidney; I51.7 Cardiomegaly; K66.9 Disorder of peritoneum, unspecified; Z98.84 Bariatric surgery status

== ENCOUNTER → 2017-07-22 | Outpatient (CLI) | payer OTHER, MEDICARE ==
[~2017-07-22] MED LIST changes: -OPTIRAY 320 IV PRN
== END | disposition home or self-care (01) ==
LOC: C.MAMM 11:13
PROVIDERS: ATTEND Internal Medicine
DX: M85.88 Other specified disorders of bone density and structure, other site (principal)

== ENCOUNTER → 2017-08-13 | Outpatient (CLI) | payer OTHER, MEDICARE ==
--- NOTE | 2017-08-14 14:21 | MAMMOGRAPHY REPORT ---
BILATERAL DIGITAL SCREENING MAMMOGRAM TOMOSYNTHESIS WITH CAD: 08/13/2017 CLINICAL HISTORY: Routine screening. Patient has no complaints. TECHNIQUE: Breast tomosynthesis in addition to standard 2D mammography was performed. Current study was also evaluated with a Computer Aided Detection (CAD) system. COMPARISON: Comparison is made to exams dated: 02/03/2016 mammogram, 10/22/2014 mammogram, 10/20/2012 mammogram, 10/21/2013 mammogram, 10/17/2011 mammogram, and 10/16/2010 mammogram - [facility]. BREAST COMPOSITION: There are scattered areas of fibroglandular density in both breasts. FINDINGS: There is stable asymmetry in the lateral left breast. No new suspicious mass, architectur al distortion or cluster of microcalcifications is seen. IMPRESSION: ACR BI-RADS CATEGORY 1: NEGATIVE There is no mammographic evidence of malignancy. A 1 year screening mammogram is recommended. The pa tient will receive written notification of the results. Approximately 10% of breast cancers are not detected with mammography. A negative mammographic report should not delay biopsy if a clinically suggestive mass is present. Anahy Rowe M.D. ay/:08/13/2017 18:21:18 Manager Customer: Inés MAYBERRY(Jeb)(Lissette), [facility] letter sent: Normal 1/2 BI-RADS Code: ACR BI-RADS Category 1: Negative
== END | disposition home or self-care (01) ==
LOC: C.MAMM 13:08
PROVIDERS: ATTEND Internal Medicine
DX: Z12.31 Encounter for screening mammogram for malignant neoplasm of breast (principal)

== ENCOUNTER → 2017-08-14 | Outpatient (CLI) | payer OTHER, MEDICARE | END | disposition home or self-care (01) | LOC: C.LABBFT 08:49 | PROVIDERS: ATTEND Physician Assistant Medical | DX: R19.7 Diarrhea, unspecified (principal) ==

== ENCOUNTER → 2017-11-06 | Outpatient (CLI) | payer OTHER, MEDICARE ==
[~2017-11-06] MED LIST changes: +METO100T44 PO; -METO1TAB69 PO
[2017-11-06 12:49] LABS: ALT/SGPT 28 U/L (12-78); AST/SGOT 18 U/L (15-37); BLOOD UREA NITROGEN 17 mg/dl (7-18); BUN/CREATININE RATIO 19.5 (10-20); CALCIUM 9.2 mg/dl (8.5-10.1); CARBON DIOXIDE 23 mmol/L (21-32); CHLORIDE 107 mmol/L (98-107); CREATININE 0.88 mg/dl (0.60-1.20); GLUCOSE 103 mg/dl (70-99); POTASSIUM 4.2 mmol/L (3.5-5.1); SODIUM 136 mmol/L (136-145)
[2017-11-06 12:50] LABS: ALB/GLOB RATIO 0.9 (0.9-2); ALKALINE PHOSPHATASE 129 U/L (45-117); CHOLESTEROL 135 mg/dl (0-200); CHOLESTEROL/HDL RATIO 1.9; HDL CHOLESTEROL 71 mg/dl; LDL CHOLESTEROL CALCULATED 48 mg/dl; TRIGLYCERIDES 81 mg/dl (0-150); VERY LOW DENSITY LIPOPROT CALC 16 mg/dl
== END | disposition home or self-care (01) ==
LOC: C.LABBFT 08:33
PROVIDERS: ATTEND Internal Medicine
DX: R19.7 Diarrhea, unspecified (principal); E78.5 Hyperlipidemia, unspecified; M85.80 Other specified disorders of bone density and structure, unspecified site

== ENCOUNTER → 2017-12-23 | Outpatient (CLI) | payer OTHER, MEDICARE ==
[~2017-12-23] MED LIST changes: +NITR100C2 PO
--- NOTE | 2017-12-23 14:28 | DIAGNOSTIC IMAGING REPORT ---
KUB HISTORY: R39.9 Urinary symptom or signR10.9 Abdominal painConcern of kidn COMPARISON: KUB 05/06/2017, CT abdomen and pelvis 06/28/2017 FINDINGS: The bowel gas pattern is non-obstructive. There is no organomegaly. Renal shadows are partially obscured by overlying bowel gas. Multiple bilateral renal calculi are again seen measuring up to 4 mm bilaterally. No definite ureteral calculi identified. Calcifications of the pelvis suggest phleboliths. Surgical clips of the right upper abdomen compatible with prior cholecystectomy. Suture material the left upper and midabdomen compatible with prior gastric bypass. No pneumoperitoneum or pneumatosis. No fracture. IMPRESSION: 1. Bilateral nephrolithiasis without ureteral calculi identified. 2. Nonobstructive bowel gas pattern. Electronically signed by: Merlin Gresham M.D. 12/23/2017 2:27 PM Dictated Date/Time: 12/23/2017 2:24 PM
== END | disposition home or self-care (01) ==
LOC: C.RAD1850 14:03
PROVIDERS: ATTEND Physician Assistant
DX: R39.9 Unspecified symptoms and signs involving the genitourinary system (principal); R10.9 Unspecified abdominal pain

== ENCOUNTER → 2017-12-23 | Outpatient (CLI) | payer OTHER, MEDICARE | END | disposition home or self-care (01) | LOC: C.LABSPEC 14:19 | PROVIDERS: ATTEND Physician Assistant | DX: R10.9 Unspecified abdominal pain (principal) ==

== ENCOUNTER 2017-12-25 11:22 | Emergency (ER) | payer OTHER, MEDICARE ==
[~2017-12-25] VITALS: Ht 160 cm; Wt 94.8 kg
[~2017-12-25 11:22] MED LIST changes: -NITR100C2 PO
[2017-12-25 11:28] VITALS: Ht 160 cm; Wt 94.8 kg
[2017-12-25] MEDS ORDERED: SODIUM CHLORIDE 0.9% 1000ML 1,000 ML IV STA (11:54)
[2017-12-25] MEDS ORDERED: ONDANSETRON INJ 2 MG/ML 2 ML VIAL IV STA (11:54)
--- NOTE | 2017-12-25 11:56 | EMERGENCY ROOM VISIT NOTE ---
History Report prepared by Neena: Justin Monahan Under the Supervision of: Dr. Michael Alcantara D.O. First contact with patient: 11:38 Chief Complaint: ABDOMINAL PAIN Stated Complaint: PAIN IN STOMACH Nursing Triage Summary: Pt reports nausea, diarrhea and mid abd pain for the past couple days. Hx of gastric bypass in 2007. SBO 2-3 yrs ago. Hx of c.diff last year, last test was neg. Pt seen at dr on Mon and placed on abx for possible kidney infection. History of Present Illness The patient is a 67 year old female who presents to the Emergency Room with complaints of waxing and waning upper/lower abdominal pain that the patient has been experiencing for the past two days. She also complains of pain in the center of her chest. She describes her chest pain as "terrible." The patient visited with her PCP two days ago and was diagnosed with a UTI. She has been having bouts of diarrhea, but this is common for her at baseline. She has a history of abdominal hernia, gastric bypass, bowel obstruction, c. Diff, and atrial fibrillation. Source of History: patient Onset: Two days [employer]OR Position: abdomen Timing: waxes/wanes Associated Symptoms: + chest pain, + diarrhea Review of Systems See HPI for pertinent positives & negatives. A total of 10 systems reviewed and were otherwise negative. Past Medical & Surgical Medical Problems: (1) ATRIAL FIBRILLATION (2) Atrial fibrillation with RVR (3) Enteritis (4) ESOPHAGEAL REFLUX (5) HYPERTENSION NOS (6) Pain in the abdomen (7) Uncontrolled hypertension Surgical Problems: (1) History of colostomy (2) Hx of cholecystectomy Family History Cancer Diabetes mellitus Gallbladder disease Heart disease Hypertension Social History Smoking Status: Former Smoker Alcohol Use: none Marital Status: Housing Status: lives with family Occupation Status: employed Current/Historical Medications Scheduled Apixaban (Eliquis), 5 MG PO BID Calcium W/ Vitamins D & K (Viactiv), 1 TAB PO QAM Diltiazem Hcl Ext Rel (Tiazac), 240 MG PO QAM Fluoxetine (Prozac), 40 MG PO QAM Lisinopril (Prinivil), 20 MG PO QAM Metoprolol Succ (Toprol Xl) (Toprol-Xl ), 200 MG PO QAM Multivitamin (Multivitamin), 1 TAB PO QAM Nitrofurantoin Macrocrystal (Nitrofurantoin Macrocryst), 100 MG PO Q12 Pravastatin (Pravachol ), 20 MG PO HS Zinc Sulfate (Zinc Sulfate), 2 TAB PO QAM [Align], 1 TAB PO QAM Scheduled PRN Oxycodone Ir (Roxicodone Ir), 5 MG PO Q6H PRN for Pain Allergies Coded Allergies: No Known Allergies (Verified , 12/25/17) Physical Exam Vital Signs Date Time Temp Pulse Resp B/P (MAP) Pulse Ox O2 Delivery O2 Flow Rate FiO2 12/25/17 16:04 95 Nasal Cannula 2.0 12/25/17 15:10 86 Room Air 12/25/17 14:49 36.9 97 16 157/93 91 Room Air 12/25/17 13:31 83 20 161/91 96 Room Air 12/25/17 13:08 84 20 179/109 Room Air 12/25/17 12:23 84 12/25/17 11:28 36.8 61 18 167/85 98 Room Air Physical Exam GENERAL: Patient is awake, alert, very anxious, and appears uncomfortable. EYES: The conjunctivae are clear. The pupils are round and reactive. EARS, NOSE, MOUTH AND THROAT: The nose is without any evidence of any deformity. Mucous membranes are moist tongue is midline NECK: The neck is nontender and supple. RESPIRATORY: Normal respiratory effort is noted there is no evidence of wheezing rhonchi or rales CARDIOVASCULAR: Regular rate and rhythm noted there no murmurs rubs or gallops normal S1 normal S2 GASTROINTESTINAL: The abdomen is diffusely tender to palpation. There is specific tenderness in the epigastric region. Bowel sounds are present in all quadrants. Abdomen is nontender MUSCULOSKELETAL/EXTREMITIES: There is no evidence of gross deformity full range of motion is noted in the hips and shoulders SKIN: There is pedal edema bilaterally. There is no obvious evidence of any rash. There are no petechiae, pallor or cyanosis noted. NEUROLOGIC: Patient is awake alert and oriented x3. Medical Decision & Procedures ER Provider Diagnostic Interpretation: Radiology results as stated below per my review and radiologist interpretation: ABDOMEN AND PELVIS CT WITH IV CONTRAST CT DOSE: 1009.00 mGy.cm HISTORY: Acute upper abdominal pain upper pain TECHNIQUE: Multiaxial CT images of the abdomen and pelvis were performed following the use of intravenous contrast. A dose lowering technique was utilized adhering to the principles of ALARA. COMPARISON STUDY: CT abdomen and pelvis 06/28/2017.. FINDINGS: Small right and trace left pleural effusions with subsegmental dependent consolidative opacities suggesting compressive atelectasis. 5 x 4 mm groundglass nodule of the right lower lobe is seen on image 7 series 3 which appears new from prior exam. Attention at follow-up recommended. Additional scattered groundglass opacities are present within the right lung base. There is no pneumatosis or pneumoperitoneum identified. Imaged inferior cardiac chambers are mildly enlarged. Prior cholecystectomy. Mild intrahepatic and extrahepatic biliary ductal dilation is likely secondary to expected postcholecystectomy state with common bile duct measuring 9 mm. The liver, spleen and right adrenal gland are unremarkable. Mild thickening of the left adrenal gland. Multiple bilateral nonobstructing nephrolithiasis with calculi on the right measuring up to 6 mm. Multiple low attenuating lesions of the kidneys bilaterally suggests renal cysts, largest of which is within the interpolar left kidney, 3.7 x 2.5 cm. Mild nonspecific bilateral perinephric stranding. There is no ureteral calculi or obstructive uropathy. Urinary bladder is partially collapsed. Prior hysterectomy. No definite adnexal mass lesions identified. Moderate to extensive atherosclerosis of the aorta. Postoperative changes from prior gastric bypass. Mild wall thickening with surrounding inflammatory stranding is seen within the excluded stomach and adjacent to the distal portion of the gastrojejunal anastomosis as seen on images 89 through 120 of series 3. The jejunal jejunal anastomosis appears intact and unremarkable. No bowel obstruction. Mild colonic diverticulosis without diverticulitis. Mild mesenteric edema. The appendix appears noninflamed. Trace fluid tracks along the left pericolic gutter. Ill-defined soft tissue attenuating mesenteric mass is again seen, 2.8 x 1.4 cm, previously measuring 2.7 x 1.5 cm. Multi mesenteric nodules are also again noted which appear unchanged measuring up to 7 mm. Soft tissues are unremarkable. Bones appear intact. IMPRESSION: 1. Prior Ngoc-en-Y gastric bypass. Mild wall thickening with surrounding inflammatory stranding involves the midportion of the excluded stomach and also adjacent to the gastrojejunal anastomosis with the jejunal jejunal anastomosis appearing intact and unremarkable. Findings may be secondary to an infectious or inflammatory gastritis/enteritis however a possible developing anastomotic dehiscence may have a similar appearance. A follow-up upper GI series may be considered to further evaluate. 2. No bowel obstruction or pneumoperitoneum. 3. Unchanged heterogeneous mildly spiculated soft tissue lesion of the mid mesentery is again seen measuring up to 2.8 cm which has not significant change from prior. Additionally, there are unchanged scattered subcentimeter soft tissue nodules throughout the mid mesentery. 4. Colonic diverticulosis without diverticulitis. 5. Small right and trace left pleural effusions with probable subsegmental bibasilar atelectasis. 6. Nonobstructing bilateral nephrolithiasis. Electronically signed by: Merlin Gresham M.D. 12/25/2017 1:19 PM Dictated Date/Time: 12/25/2017 12:57 PM CHEST ONE VIEW PORTABLE CLINICAL HISTORY: ABDOMINAL PAIN/GI pain COMPARISON STUDY: 11/27/2016 FINDINGS: Moderate stable cardiomegaly. Slight increase in pulmonary vascular congestion. Diaphragms are smooth. IMPRESSION: Moderate cardiomegaly. Pulmonary vascular congestion. The above report was generated using voice recognition software. It may contain grammatical, syntax or spelling errors. Electronically signed by: Oumar Garza M.D. 12/25/2017 12:52 PM Dictated Date/Time: 12/25/2017 12:52 PM Laboratory Results 12/25/17 12:20 Red Blood Count 4.33, Mean Corpuscular Volume 92.1, Mean Corpuscular Hemoglobin 29.6, Mean Corpuscular Hemoglobin Concent 32.1, Mean Platelet Volume 9.4, Neutrophils (%) (Auto) 71.7, Lymphocytes (%) (Auto) 20.1, Monocytes (%) (Auto) 6.5, Eosinophils (%) (Auto) 1.3, Basophils (%) (Auto) 0.2, Neutrophils # (Auto) 4.44, Lymphocytes # (Auto) 1.24, Monocytes # (Auto) 0.40, Eosinophils # (Auto) 0.08, Basophils # (Auto) 0.01 12/25/17 12:20 Test 12/25/17 12:15 12/25/17 12:20 12/25/17 12:30 12/25/17 12:35 Urine Color DK YELLOW Urine Appearance CLEAR (CLEAR) Urine pH 6.0 (4.5-7.5) Urine Specific [place] 1.021 (1.000-1.030) Urine Protein 2+ (NEG) Urine Glucose (UA) NEG (NEG) Urine Ketones TRACE (NEG) Urine Occult Blood NEG (NEG) Urine Nitrite NEG (NEG) Urine Bilirubin NEG (NEG) Urine Urobilinogen NEG (NEG) Urine Leukocyte Esterase SMALL (NEG) Urine WBC (Auto) 1-5 /hpf (0-5) Urine RBC (Auto) 0-4 /hpf (0-4) Urine Hyaline Casts (Auto) 5-10 /lpf (0-5) Urine Epithelial Cells (Auto) >30 /lpf (0-5) Urine Bacteria (Auto) NEG (NEG) White Blood Count 6.18 K/uL (4.8-10.8) Red Blood Count 4.33 M/uL (4.2-5.4) Hemoglobin 12.8 g/dL (12.0-16.0) Hematocrit 39.9 % (37-47) Mean Corpuscular Volume 92.1 fL (80-100) Mean Corpuscular Hemoglobin 29.6 pg (25-34) Mean Corpuscular Hemoglobin Concent 32.1 g/dl (32-36) Platelet Count 286 K/uL (130-400) Mean Platelet Volume 9.4 fL (7.4-10.4) Neutrophils (%) (Auto) 71.7 % Lymphocytes (%) (Auto) 20.1 % Monocytes (%) (Auto) 6.5 % Eosinophils (%) (Auto) 1.3 % Basophils (%) (Auto) 0.2 % Neutrophils # (Auto) 4.44 K/uL (1.4-6.5) Lymphocytes # (Auto) 1.24 K/uL (1.2-3.4) Monocytes # (Auto) 0.40 K/uL (0.11-0.59) Eosinophils # (Auto) 0.08 K/uL (0-0.5) Basophils # (Auto) 0.01 K/uL (0-0.2) RDW Standard Deviation 52.0 fL (36.4-46.3) RDW Coefficient of Variation 15.4 % (11.5-14.5) Immature Granulocyte % (Auto) 0.2 % Immature Granulocyte # (Auto) 0.01 K/uL (0.00-0.02) Est Creatinine Clear Calc Drug Dose 77.7 ml/min Estimated GFR () 91.0 Estimated GFR (Non- 78.6 BUN/Creatinine Ratio 18.8 (10-20) Calcium Level 9.2 mg/dl (8.5-10.1) Magnesium Level 1.9 mg/dl (1.8-2.4) Total Bilirubin 0.8 mg/dl (0.2-1) Direct Bilirubin 0.2 mg/dl (0-0.2) Aspartate Amino Transf (AST/SGOT) 16 U/L (15-37) Alanine Aminotransferase (ALT/SGPT) 25 U/L (12-78) Alkaline Phosphatase 139 U/L (45-117) Total Creatine Kinase 48 U/L (26-192) Creatine Kinase MB 1.3 ng/ml (0.5-3.6) Creatine Kinase MB Ratio 2.7 (0-3.0) Troponin I < 0.015 ng/ml (0-0.045) Total Protein 7.4 gm/dl (6.4-8.2) Albumin 3.4 gm/dl (3.4-5.0) Lipase 142 U/L (73-393) Bedside Lactic Acid Venous 1.68 mmol/L (0.90-1.70) Bedside Hemoglobin 13.3 g/dl (12.0-16.0) Bedside Hematocrit 39 % (37-47) Bedside Sodium 142 mEq/L (135-144) Bedside Potassium 3.8 mEq/L (3.3-5.0) Bedside Chloride 100 mEq/L (101-112) Bedside Total CO2 27 mEq/l (24-31) Anion Gap 19.0 mmol/L (16-25) Bedside Blood Urea Nitrogen 16 mg/dl (7-18) Bedside Creatinine 0.8 mg/dl (0.6-1.3) Bedside Glucose (other) 160 mg/dl (70-99) Bedside Ionized Calcium (Stella) 1.20 mmol/l (1.12-1.32) Test 12/25/17 13:46 Prothrombin Time 11.9 SECONDS (9.0-12.0) Prothromb Time International Ratio 1.1 (0.9-1.1) Activated Partial Thromboplast Time 26.6 SECONDS (21.0-31.0) Partial Thromboplastin Ratio 1.0 Laboratory results per my review. Medications Administered Medications (Trade) Dose Ordered Sig/Elliott Route Start Time Stop Time Status Last Admin Dose Admin Sodium Chloride 1,000 ml @ 999 mls/hr Q1H1M STAT IV 12/25/17 11:54 12/25/17 12:54 DC 12/25/17 12:35 999 MLS/HR Ondansetron HCl (Zofran Inj) 4 mg NOW STAT IV 12/25/17 11:54 12/25/17 11:56 DC 12/25/17 12:35 4 MG Morphine Sulfate (MoRPHine SULFATE INJ) 4 mg Q15M PRN IV 12/25/17 12:00 01/08/18 11:59 12/25/17 13:21 4 MG Hydromorphone HCl (Dilaudid Inj) 1 mg NOW STAT IV 12/25/17 14:59 12/25/17 15:00 DC 12/25/17 15:04 1 MG Lidocaine HCl (Viscous Lidocaine 2% Soln) 20 ml STK-MED ONCE .ROUTE 12/25/17 15:02 12/25/17 15:03 DC 12/25/17 15:04 20 ML Al Hydroxide/Mg Hydroxide (Maalox Susp) 30 ml STK-MED ONCE .ROUTE 12/25/17 15:02 12/25/17 15:03 DC 12/25/17 15:04 30 ML ECG Indication: abdominal pain Rate (beats per minute): 83 Findings: no acute ischemic change, no ectopy Comparison ECG Date: 02/24/2016 Change: no significant change Change: Patient's EKG was interpreted by me. ED Course 1151: The patient was evaluated in room C1. A complete history and physical examination were performed. 1154: Ordered Zofran 4 mg IV, Sodium Chloride 1000 mL @ 999 mL/hr IV. 1200: Ordered Morphine Sulfate 4 mg IV. 1331: I checked on the patient at this time She was resting in bed. 1332: Ordered GI Cocktail 24 mL PO. 1510: I checked on the patient at this time. She is not feeling better. 1515: Dr. Holm [facility] Hospitalist will evaluate the patient for further treatment. Medical Decision Differential diagnosis: Etiologies such as appendicitis, diverticulitis, PUD, biliary pathology, UTI, pancreatitis, obstruction, mesenteric ischemia, aortic pathology, infections, inflammatory bowel disease, renal colic, as well as others were entertained. Nursing notes reviewed. The patient is a 67-year-old female who presented to the emergency department for abdominal discomfort. The patient has a history of a pancreatic and bowel surgery in the past. She states that she's had similar problems in the past with bowel obstruction. She also had some nausea symptoms. The patient was treated with IV fluids IV pain medicine and IV antiemetics. On subsequent reevaluation she was not significantly improved. I discussed the patient's laboratory and radiographic studies with her. No definite cause for her pain could be found at this time. For this reason patient was assigned to the on- call [facility] hospitalist. They've agreed to evaluate the patient in the emergency department for further management and disposition. It is likely the patient may require an observation period until her pain is better controlled. The patient was treated with IV narcotic pain medication and started to have a low oxygen saturation but still had very significant pain. I do feel the patient 's pain is very significant at this point. Consults Time Called: 1515 Consulting Physician: Dr. M[facility] Hospitalist Returned Call: 1515 Impression Primary Impression: Intractable epigastric abdominal pain Scribe Attestation The scribe's documentation has been prepared under my direction and personally reviewed by me in its entirety. I confirm that the note above accurately reflects all work, treatment, procedures, and medical decision making performed by me. Departure Information Dispostion Being Evaluated By Hospitalist Referrals Christopher Guevara M.D. (PCP) Patient Instructions My [facility]
[2017-12-25] MEDS ORDERED: OPTIRAY 320 IV PRN (12:15)
[2017-12-25] MEDS: MoRPHine SULFATE 4 MG/ML 1 ML CARP\\VIAL IV PRN ×2 (12:34→13:21)
[2017-12-25] MEDS ORDERED: NITR100C2 PO (12:34)
[2017-12-25] MEDS ORDERED: APIX1TAB3 PO (12:36)
[2017-12-25 12:44] LABS: BASO % 0.2 %; BASO ABS # 0.01 K/uL (0-0.2); EOS % 1.3 %; EOS ABS # 0.08 K/uL (0-0.5); HEMATOCRIT 39.9 % (37-47); HEMOGLOBIN 12.8 g/dL (12.0-16.0); IG# 0.01 K/uL (0.00-0.02); LYMPH % 20.1 %; LYMPH ABS # 1.24 K/uL (1.2-3.4); MEAN CELL VOLUME 92.1 fL (80-100); MEAN CORPUSCULAR HEMOGLOBIN 29.6 pg (25-34); MEAN CORPUSCULAR HGB CONC 32.1 g/dl (32-36); MEAN PLATELET VOLUME 9.4 fL (7.4-10.4); MONO % 6.5 %; NEUT % 71.7 %; NEUT ABS # 4.44 K/uL (1.4-6.5); PLATELET COUNT 286 K/uL (130-400); RED CELL DISTRIBUTION WIDTH CV 15.4 % (11.5-14.5); WHITE BLOOD COUNT 6.18 K/uL (4.8-10.8)
[2017-12-25 12:46] LABS: ISTAT CREATININE 0.8 mg/dl (0.6-1.3); ISTAT IONIZED CALCIUM 1.2 mmol/l (1.12-1.32); ISTAT POTASSIUM 3.8 mEq/L (3.3-5.0)
--- NOTE | 2017-12-25 12:54 | DIAGNOSTIC IMAGING REPORT ---
CHEST ONE VIEW PORTABLE CLINICAL HISTORY: ABDOMINAL PAIN/GI pain COMPARISON STUDY: 11/27/2016 FINDINGS: Moderate stable cardiomegaly. Slight increase in pulmonary vascular congestion. Diaphragms are smooth. IMPRESSION: Moderate cardiomegaly. Pulmonary vascular congestion. The above report was generated using voice recognition software. It may contain grammatical, syntax or spelling errors. Electronically signed by: Oumar Garza M.D. 12/25/2017 12:52 PM Dictated Date/Time: 12/25/2017 12:52 PM
[2017-12-25 13:04] LABS: ALBUMIN 3.4 gm/dl (3.4-5.0); ALT/SGPT 25 U/L (12-78); BLOOD UREA NITROGEN 15 mg/dl (7-18); CALCIUM 9.2 mg/dl (8.5-10.1); CARBON DIOXIDE 27 mmol/L (21-32); CREATININE 0.79 mg/dl (0.60-1.20); GLUCOSE 151 mg/dl (70-99); LIPASE 142 U/L (73-393); POTASSIUM 3.7 mmol/L (3.5-5.1); SODIUM 139 mmol/L (136-145)
[2017-12-25 13:07] LABS: ALKALINE PHOSPHATASE 139 U/L (45-117); AST/SGOT 16 U/L (15-37); CKMB 1.3 ng/ml (0.5-3.6); TOTAL PROTEIN 7.4 gm/dl (6.4-8.2)
--- NOTE | 2017-12-25 13:20 | DIAGNOSTIC IMAGING REPORT ---
ABDOMEN AND PELVIS CT WITH IV CONTRAST CT DOSE: 1009.00 mGy.cm HISTORY: Acute upper abdominal pain upper pain TECHNIQUE: Multiaxial CT images of the abdomen and pelvis were performed following the use of intravenous contrast. A dose lowering technique was utilized adhering to the principles of ALARA. COMPARISON STUDY: CT abdomen and pelvis 06/28/2017.. FINDINGS: Small right and trace left pleural effusions with subsegmental dependent consolidative opacities suggesting compressive atelectasis. 5 x 4 mm groundglass nodule of the right lower lobe is seen on image 7 series 3 which appears new from prior exam. Attention at follow-up recommended. Additional scattered groundglass opacities are present within the right lung base. There is no pneumatosis or pneumoperitoneum identified. Imaged inferior cardiac chambers are mildly enlarged. Prior cholecystectomy. Mild intrahepatic and extrahepatic biliary ductal dilation is likely secondary to expected postcholecystectomy state with common bile duct measuring 9 mm. The liver, spleen and right adrenal gland are unremarkable. Mild thickening of the left adrenal gland. Multiple bilateral nonobstructing nephrolithiasis with calculi on the right measuring up to 6 mm. Multiple low attenuating lesions of the kidneys bilaterally suggests renal cysts, largest of which is within the interpolar left kidney, 3.7 x 2.5 cm. Mild nonspecific bilateral perinephric stranding. There is no ureteral calculi or obstructive uropathy. Urinary bladder is partially collapsed. Prior hysterectomy. No definite adnexal mass lesions identified. Moderate to extensive atherosclerosis of the aorta. Postoperative changes from prior gastric bypass. Mild wall thickening with surrounding inflammatory stranding is seen within the excluded stomach and adjacent to the distal portion of the gastrojejunal anastomosis as seen on images 89 through 120 of series 3. The jejunal jejunal anastomosis appears intact and unremarkable. No bowel obstruction. Mild colonic diverticulosis without diverticulitis. Mild mesenteric edema. The appendix appears noninflamed. Trace fluid tracks along the left pericolic gutter. Ill-defined soft tissue attenuating mesenteric mass is again seen, 2.8 x 1.4 cm, previously measuring 2.7 x 1.5 cm. Multi mesenteric nodules are also again noted which appear unchanged measuring up to 7 mm. Soft tissues are unremarkable. Bones appear intact. IMPRESSION: 1. Prior Nogc-en-Y gastric bypass. Mild wall thickening with surrounding inflammatory stranding involves the midportion of the excluded stomach and also adjacent to the gastrojejunal anastomosis with the jejunal jejunal anastomosis appearing intact and unremarkable. Findings may be secondary to an infectious or inflammatory gastritis/enteritis however a possible developing anastomotic dehiscence may have a similar appearance. A follow-up upper GI series may be considered to further evaluate. 2. No bowel obstruction or pneumoperitoneum. 3. Unchanged heterogeneous mildly spiculated soft tissue lesion of the mid mesentery is again seen measuring up to 2.8 cm which has not significant change from prior. Additionally, there are unchanged scattered subcentimeter soft tissue nodules throughout the mid mesentery. 4. Colonic diverticulosis without diverticulitis. 5. Small right and trace left pleural effusions with probable subsegmental bibasilar atelectasis. 6. Nonobstructing bilateral nephrolithiasis. Electronically signed by: Merlin Gresham M.D. 12/25/2017 1:19 PM Dictated Date/Time: 12/25/2017 12:57 PM
[2017-12-25] MEDS: GI COCKTAIL PO STA (13:32)
[2017-12-25 14:08] LABS: INR 1.1 (0.9-1.1); PTT PATIENT 26.6 SECONDS (21.0-31.0)
--- NOTE | 2017-12-25 14:47 | DIAGNOSTIC IMAGING REPORT ---
GI SERIES W/O KUB CLINICAL HISTORY: 67 years-old Female with epigastic pain. Acute epigastric abdominal pain and dysphasia. History of prior Ngoc-en-Y gastric bypass and hiatal hernia repair TECHNIQUE: A standard air contrast upper GI series was performed following administration of barium and effervescent crystals. Multiple spot fluoroscopic images were obtained and provided for review. COMPARISON STUDY: CT abdomen and pelvis of same day FLUOROSCOPY TIME: 2.6 minutes. 22 images were submitted. FINDINGS: The patient swallowed barium without difficulty. No aspiration was definitively visualized. The esophagus distended normally with barium and effervescent crystals. No strictures, mucosal ulcerations, or intraluminal mass lesions were identified involving the esophagus. There was no significant gastroesophageal reflux. Barium was seen to flow freely through the gastroesophageal junction. Mild to moderate distal esophageal dysmotility. No active reflux was demonstrated with Valsalva maneuver. Evaluation of the stomach demonstrates no gastric mucosal irregularity or filling defect. Postoperative changes from prior Ngoc-en-Y gastric bypass without evidence of anastomotic dehiscence or bowel obstruction. No reflux into the excluded limb. IMPRESSION: 1. Mild to moderate distal esophageal dysmotility with otherwise unremarkable upper GI series. 2. Postoperative changes from prior Ngoc-en-Y gastric bypass without evidence of anastomotic dehiscence. 3. No evidence of obstruction. The above report was generated using voice recognition software. It may contain grammatical, syntax or spelling errors. Electronically signed by: Merlin Gresham M.D. 12/25/2017 2:46 PM Dictated Date/Time: 12/25/2017 2:15 PM
[2017-12-25 14:49] VITALS: TEMP 36.9
[2017-12-25] MEDS ORDERED: HYDROmorphone INJ 1 MG/ML SYR IV STA (14:59)
[2017-12-25] MEDS ORDERED: LIDOCAINE HCL 2% VISC SOLN 20 ML UDC ONE (15:02)
[2017-12-25] MEDS ORDERED: ALUMINUM/MAGNESIUM SUSP 30 ML UDC ONE (15:02)
--- NOTE | 2017-12-25 16:48 | History and Physical ---
History & Physical Date & Time of Service: Dec 25, 2017 at 16:31 Chief Complaint: Pain In Stomach Primary Care Physician: Christopher Guevara M.D. Past Medical/Surgical History Medical Problems: (1) ATRIAL FIBRILLATION Status: Chronic (2) ESOPHAGEAL REFLUX Status: Chronic (3) HYPERTENSION NOS Status: Chronic Surgical Problems: (1) History of colostomy Status: Chronic (2) Hx of cholecystectomy Status: Chronic Family History Cancer Diabetes mellitus Gallbladder disease Heart disease Hypertension Social History Smoking Status: Former Smoker Marital Status: Housing status: lives with family Occupational Status: employed Immunizations History of Influenza Vaccine: Yes Influenza Vaccine Date: Sep 18, 2011 History of Tetanus Vaccine?: Unknown History of Pneumococcal: No History of Hepatitis B Vaccine: Yes Hepatitis Immunization Date: Mar 27, 2011 Multi-Drug Resistant Organisms History of MDRO: No Allergies Coded Allergies: No Known Allergies (Verified , 12/25/17) Home Medications Scheduled Apixaban (Eliquis), 5 MG PO BID Calcium W/ Vitamins D & K (Viactiv), 1 TAB PO QAM Diltiazem Hcl Ext Rel (Tiazac), 240 MG PO QAM Fluoxetine (Prozac), 40 MG PO QAM Lisinopril (Prinivil), 20 MG PO QAM Metoprolol Succ (Toprol Xl) (Toprol-Xl ), 200 MG PO QAM Multivitamin (Multivitamin), 1 TAB PO QAM Nitrofurantoin Macrocrystal (Nitrofurantoin Macrocryst), 100 MG PO Q12 Pravastatin (Pravachol ), 20 MG PO HS Zinc Sulfate (Zinc Sulfate), 2 TAB PO QAM [Align], 1 TAB PO QAM Scheduled PRN Oxycodone Ir (Roxicodone Ir), 5 MG PO Q6H PRN for Pain Physical Exam Vital Signs Date Time Temp Pulse Resp B/P (MAP) Pulse Ox O2 Delivery O2 Flow Rate FiO2 12/25/17 16:04 95 Nasal Cannula 2.0 12/25/17 15:10 86 Room Air 12/25/17 14:49 36.9 97 16 157/93 91 Room Air 12/25/17 13:31 83 20 161/91 96 Room Air 12/25/17 13:08 84 20 179/109 Room Air 12/25/17 12:23 84 12/25/17 11:28 36.8 61 18 167/85 98 Room Air Diagnostics Laboratory Results Results Past 24 Hours Test 12/25/17 12:15 12/25/17 12:20 12/25/17 12:30 12/25/17 12:35 Range/Units Urine Color DK YELLOW Urine Appearance CLEAR CLEAR Urine pH 6.0 4.5-7.5 Urine Specific [place] 1.021 1.000-1.030 Urine Protein 2+ NEG Urine Glucose (UA) NEG NEG Urine Ketones TRACE NEG Urine Occult Blood NEG NEG Urine Nitrite NEG NEG Urine Bilirubin NEG NEG Urine Urobilinogen NEG NEG Urine Leukocyte Esterase SMALL NEG Urine WBC (Auto) 1-5 0-5 /hpf Urine RBC (Auto) 0-4 0-4 /hpf Urine Hyaline Casts (Auto) 5-10 0-5 /lpf Urine Epithelial Cells (Auto) >30 0-5 /lpf Urine Bacteria (Auto) NEG NEG White Blood Count 6.18 4.8-10.8 K/uL Red Blood Count 4.33 4.2-5.4 M/uL Hemoglobin 12.8 12.0-16.0 g/dL Hematocrit 39.9 37-47 % Mean Corpuscular Volume 92.1 80-100 fL Mean Corpuscular Hemoglobin 29.6 25-34 pg Mean Corpuscular Hemoglobin Concent 32.1 32-36 g/dl Platelet Count 286 130-400 K/uL Mean Platelet Volume 9.4 7.4-10.4 fL Neutrophils (%) (Auto) 71.7 % Lymphocytes (%) (Auto) 20.1 % Monocytes (%) (Auto) 6.5 % Eosinophils (%) (Auto) 1.3 % Basophils (%) (Auto) 0.2 % Neutrophils # (Auto) 4.44 1.4-6.5 K/uL Lymphocytes # (Auto) 1.24 1.2-3.4 K/uL Monocytes # (Auto) 0.40 0.11-0.59 K/uL Eosinophils # (Auto) 0.08 0-0.5 K/uL Basophils # (Auto) 0.01 0-0.2 K/uL RDW Standard Deviation 52.0 36.4-46.3 fL RDW Coefficient of Variation 15.4 11.5-14.5 % Immature Granulocyte % (Auto) 0.2 % Immature Granulocyte # (Auto) 0.01 0.00-0.02 K/uL Sodium Level 139 136-145 mmol/L Potassium Level 3.7 3.5-5.1 mmol/L Chloride Level 104 98-107 mmol/L Carbon Dioxide Level 27 21-32 mmol/L Anion Gap 8.0 19.0 16-25 mmol/L Blood Urea Nitrogen 15 7-18 mg/dl Creatinine 0.79 0.60-1.20 mg/dl Est Creatinine Clear Calc Drug Dose 77.7 ml/min Estimated GFR () 91.0 Estimated GFR (Non- 78.6 BUN/Creatinine Ratio 18.8 10-20 Random Glucose 151 70-99 mg/dl Calcium Level 9.2 8.5-10.1 mg/dl Magnesium Level 1.9 1.8-2.4 mg/dl Total Bilirubin 0.8 0.2-1 mg/dl Direct Bilirubin 0.2 0-0.2 mg/dl Aspartate Amino Transf (AST/SGOT) 16 15-37 U/L Alanine Aminotransferase (ALT/SGPT) 25 12-78 U/L Alkaline Phosphatase 139 45-117 U/L Total Creatine Kinase 48 26-192 U/L Creatine Kinase MB 1.3 0.5-3.6 ng/ml Creatine Kinase MB Ratio 2.7 0-3.0 Troponin I < 0.015 0-0.045 ng/ml Total Protein 7.4 6.4-8.2 gm/dl Albumin 3.4 3.4-5.0 gm/dl Lipase 142 73-393 U/L Bedside Lactic Acid Venous 1.68 0.90-1.70 mmol/L Bedside Hemoglobin 13.3 12.0-16.0 g/dl Bedside Hematocrit 39 37-47 % Bedside Sodium 142 135-144 mEq/L Bedside Potassium 3.8 3.3-5.0 mEq/L Bedside Chloride 100 101-112 mEq/L Bedside Total CO2 27 24-31 mEq/l Bedside Blood Urea Nitrogen 16 7-18 mg/dl Bedside Creatinine 0.8 0.6-1.3 mg/dl Bedside Glucose (other) 160 70-99 mg/dl Bedside Ionized Calcium (Stella) 1.20 1.12-1.32 mmol/l Test 12/25/17 13:46 Range/Units Prothrombin Time 11.9 9.0-12.0 SECONDS Prothromb Time International Ratio 1.1 0.9-1.1 Activated Partial Thromboplast Time 26.6 21.0-31.0 SECONDS Partial Thromboplastin Ratio 1.0
[2017-12-25] MEDS ORDERED: PANTOprazole SOD 40 MG TAB PO STA (17:03)
[2017-12-25] MEDS ORDERED: RANITIDINE HCL 150 MG TAB PO ONE (17:15)
--- NOTE | 2017-12-25 17:20 | Medical Consult ---
Consultation Date of Consultation: Dec 25, 2017. Attending Physician: Reason for Consultation: Possible admission for intractable pain History of Present Illness Mrs Dawkins is a 67 year old female who presents to the ER with abdominal pain. She has LUQ cramping pain which started 3 days ago, getting progressively worse , lasting for 15 minutes at a time but occurring 3-5 times/day. No apparent association with food. Severity 10/10 at worse, 8/10 on arrival to ER, currently 5/10 when seen. She denies any nausea or vomiting and has chronic diarrhea with no recent changes. She denies any melena or GI bleeding. She notes this is similar to her chronic abdominal pains but is of increased severity which is why she came to the ER. Her chronic abdominal pain can be days or months between episodes. She is under Dr Murphy for this but with no specific diagnosis. Since receiving the GI cocktail in the ER her pain has significantly improved. Most recently she was diagnosed with a UTI by her PCP and is currently taking a course of nitrofurantoin for this. She also reportedly stopped taking omeprazole 3 weeks ago under the guidance of her PCP due to concern about termite helper side effects. She reports having worsening heartburn about a week after stopping this medication. She has a complex abdominal history with history obtained from [facility] medical records with verbal consent of the patient. She underwent laparoscopic Ngoc en Y bypass done at [facility] (Dr Ruiz) in 2007. 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 In June 2015 she had a laparoscopic duodenojejunal bypass and cholecystectomy performed at [employer] [facility] by Dr Garcia. The surgery was complicated by an incisional hernia that was repaired in September 2016. Post-operatively she developed c. diff. Since her bypass operation she notes she has had chronic abdominal pain and diarrhea (see above). She underwent her most recent EGD and colonoscopy in June 2017 which showed normal esophagus, widely patient non-obstructing Schatzki ring, small hiatus hernia, patient BillrothI appearing gastroduodenostomy, normal jejunum, non bleeding hemorrhoids and otherwise normal colonoscopy. Past Medical/Surgical History Medical Problems: (1) Abdominal pain, left upper quadrant Status: Acute (2) Chest wall pain Status: Acute (3) Intractable epigastric abdominal pain Status: Acute (4) Pain from gastrostomy tube Status: Acute (5) Substernal chest pain Status: Acute Family History Cancer Diabetes mellitus Gallbladder disease Heart disease Hypertension Social History Smoking Status: Former Smoker Marital Status: Housing Status: lives with family Occupation Status: employed Allergies Coded Allergies: No Known Allergies (Verified , 12/25/17) Home Medications Reported Home Medications Medications Dose Route/Sig Max Daily Dose Days Date Category Eliquis (Apixaban) 5 Mg Tab 5 Mg PO BID 12/25/17 Reported Nitrofurantoin Macrocryst (Nitrofurantoin Macrocrystal) 100 Mg Cap 100 Mg PO Q12 12/25/17 Reported Roxicodone Ir (Oxycodone HCl) 5 Mg Tab 5 Mg PO Q6H PRN 06/12/17 Reported Zinc Sulfate 220 Mg Cap 2 Tab PO QAM 12/31/16 Reported Viactiv (Calcium W/ Vitamins D & K) 1 Chw Chw 1 Tab PO QAM 12/31/16 Reported Multivitamin (Multivitamins) Tab 1 Tab PO QAM 12/31/16 Reported Toprol-Xl (Metoprolol Succinate) 100 Mg Tabcr 200 Mg PO QAM 12/31/16 Reported Prinivil (Lisinopril) 20 Mg Tab 20 Mg PO QAM 12/31/16 Reported [Align] 1 Tab PO QAM 12/31/16 Reported Pravachol (Pravastatin Sodium) 20 Mg Tab 20 Mg PO HS 10/20/15 Reported Prozac (Fluoxetine HCl) 40 Mg Cap 40 Mg PO QAM 10/20/15 Reported Tiazac (Diltiazem HCl) 240 Mg Capcr 240 Mg PO QAM 10/20/15 Reported Current Inpatient Medications Current Inpatient Medications Medications (Trade) Dose Ordered Sig/Elliott Route Start Time Stop Time Status Last Admin Dose Admin Ioversol (Optiray 320) 100 ml UD PRN IV 12/25/17 12:15 12/29/17 12:14 Ranitidine HCl (zANTac TAB) 150 mg NOW ONCE PO 12/25/17 17:15 12/25/17 17:16 Review of Systems Constitutional: No fever, No chills Abdomen: + pain, + diarrhea, No nausea, No vomiting, No constipation, No GI bleeding Genitourinary - Female: No dysuria Physical Exam Date Time Temp Pulse Resp B/P (MAP) Pulse Ox O2 Delivery O2 Flow Rate FiO2 12/25/17 16:04 95 Nasal Cannula 2.0 12/25/17 15:10 86 Room Air 12/25/17 14:49 36.9 97 16 157/93 91 Room Air 12/25/17 13:31 83 20 161/91 96 Room Air 12/25/17 13:08 84 20 179/109 Room Air 12/25/17 12:23 84 12/25/17 11:28 36.8 61 18 167/85 98 Room Air General Appearance: no apparent distress, + obese Head: normocephalic, atraumatic Eyes: normal inspection (pupils equal) ENT: pharynx normal Respiratory/Chest: chest non-tender, no respiratory distress, no accessory muscle use, + decreased breath sounds (poor inspiratory effort, obese) Cardiovascular: no murmur, normal peripheral pulses, + irregularly irregular Abdomen/GI: soft, + tenderness (LUQ on deep palpation, no rebound or guarding) , + abnormal bowel sounds (hypoactive) Back: no CVA tenderness Extremities/Musculoskelatal: normal capillary refill Neurologic/Psych: no motor/sensory deficits, alert, oriented x 3 Skin: normal color, warm/dry, no rash Laboratory Results Last 24 Hours Test 12/25/17 12:15 12/25/17 12:20 12/25/17 12:30 12/25/17 12:35 Urine Color DK YELLOW Urine Appearance CLEAR Urine pH 6.0 Urine Specific [place] 1.021 Urine Protein 2+ Urine Glucose (UA) NEG Urine Ketones TRACE Urine Occult Blood NEG Urine Nitrite NEG Urine Bilirubin NEG Urine Urobilinogen NEG Urine Leukocyte Esterase SMALL Urine WBC (Auto) 1-5 /hpf Urine RBC (Auto) 0-4 /hpf Urine Hyaline Casts (Auto) 5-10 /lpf Urine Epithelial Cells (Auto) >30 /lpf Urine Bacteria (Auto) NEG White Blood Count 6.18 K/uL Red Blood Count 4.33 M/uL Hemoglobin 12.8 g/dL Hematocrit 39.9 % Mean Corpuscular Volume 92.1 fL Mean Corpuscular Hemoglobin 29.6 pg Mean Corpuscular Hemoglobin Concent 32.1 g/dl Platelet Count 286 K/uL Mean Platelet Volume 9.4 fL Neutrophils (%) (Auto) 71.7 % Lymphocytes (%) (Auto) 20.1 % Monocytes (%) (Auto) 6.5 % Eosinophils (%) (Auto) 1.3 % Basophils (%) (Auto) 0.2 % Neutrophils # (Auto) 4.44 K/uL Lymphocytes # (Auto) 1.24 K/uL Monocytes # (Auto) 0.40 K/uL Eosinophils # (Auto) 0.08 K/uL Basophils # (Auto) 0.01 K/uL RDW Standard Deviation 52.0 fL RDW Coefficient of Variation 15.4 % Immature Granulocyte % (Auto) 0.2 % Immature Granulocyte # (Auto) 0.01 K/uL Sodium Level 139 mmol/L Potassium Level 3.7 mmol/L Chloride Level 104 mmol/L Carbon Dioxide Level 27 mmol/L Anion Gap 8.0 mmol/L 19.0 mmol/L Blood Urea Nitrogen 15 mg/dl Creatinine 0.79 mg/dl Est Creatinine Clear Calc Drug Dose 77.7 ml/min Estimated GFR () 91.0 Estimated GFR (Non- 78.6 BUN/Creatinine Ratio 18.8 Random Glucose 151 mg/dl Calcium Level 9.2 mg/dl Magnesium Level 1.9 mg/dl Total Bilirubin 0.8 mg/dl Direct Bilirubin 0.2 mg/dl Aspartate Amino Transf (AST/SGOT) 16 U/L Alanine Aminotransferase (ALT/SGPT) 25 U/L Alkaline Phosphatase 139 U/L Total Creatine Kinase 48 U/L Creatine Kinase MB 1.3 ng/ml Creatine Kinase MB Ratio 2.7 Troponin I < 0.015 ng/ml Total Protein 7.4 gm/dl Albumin 3.4 gm/dl Lipase 142 U/L Bedside Lactic Acid Venous 1.68 mmol/L Bedside Hemoglobin 13.3 g/dl Bedside Hematocrit 39 % Bedside Sodium 142 mEq/L Bedside Potassium 3.8 mEq/L Bedside Chloride 100 mEq/L Bedside Total CO2 27 mEq/l Bedside Blood Urea Nitrogen 16 mg/dl Bedside Creatinine 0.8 mg/dl Bedside Glucose (other) 160 mg/dl Bedside Ionized Calcium (Stella) 1.20 mmol/l Test 12/25/17 13:46 Prothrombin Time 11.9 SECONDS Prothromb Time International Ratio 1.1 Activated Partial Thromboplast Time 26.6 SECONDS Partial Thromboplastin Ratio 1.0 Assessment & Plan 67 year old female with acute on chronic abdominal pain with complex abdominal history (please see HPI). Abdominal pain - appears to have significantly improved with GI cocktail. She is not anemic. No change in chronic diarrhea and despite c. diff history. Reassuringly normal CT and upper GI series with regards to anastomosis or repeat obstruction - inflammation around stomach less likely infective given normal WBC and no fever/ chills. - the patient's main concern is the pain returning when she gets home and requested oxycodone which she has previously taken for this. On review of PDMP she has had multiple oxycodone prescriptions from different providers but appears related to history of kidney stones - most likely related to stopping her omeprazole possibly causing some gastritis. Will give ranitidine and pantoprazole in the ER and recommended she continues ranitidine for the next 3 days and continues omeprazole 40mg PO daily until follow up with her PCP. - discussed admission vs. discharge with the patient and given such a large improvement of her pain from earlier most notably with the GI cocktail she elected to go home - I discussed the patient with Dr Alcantara (ER Physician) and Dr Holm (Attending hospitalist) - given vast improvement of her pain from earlier I agreed to discharge her from the ER. - Recommended she follows up with her PCP in the next 1-2 days and call her GI doctor (Dr Murphy) to discuss sooner follow up than planned. Hypoxia - now resolved. Secondary to opiates given mixed with obesity hypoventilation. She is now saturating well off oxygen. Atrial fibrillation - appears rate controlled, continue current medications Disposition - discharge home Resident Physician Supervision Note: I was present with Dr. Alejo during the history and exam. I discussed the case with the resident and agree with the findings and plan as documented in the note. 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 he pt has chronic abdominal pain and presented with acute worsening. Imaging did not reveal an acute issue and the pt's pain largely resolved following narcotic administration. She was hypoxic following narcotic administration and was initially intended for overnight observation. The hypoxia resolved however, as did her pain and she was then requesting discharge. OE AAO x 3 S1,2 R CTAB NT, ND No CCE P: Pt will be DCd Is told to follow-up with her GI MD Would return to the hospital with recurrence of pain, N/V, fever Cont scheduled meds for AF Above discussed with pt, resident, ER attending Documented By: Real Holm Additional Copies To Kyle Murphy M.D.; Christopher Guevara M.D.
[2017-12-25] MEDS ORDERED: ONDANSETRON HOME PACK 4MG OD TAB PO ONE (17:30)
[2017-12-25] MEDS ORDERED: OXYCODONE IR HOME PACK PO ONE (17:30)
[2017-12-25 17:50] VITALS: BP 123/78; PULSE 76; O2SAT 92
== END 2017-12-25 17:50 | disposition home or self-care (01) ==
LOC: C.EDB 11:27 → C.EDC 17:50
DX: R10.13 Epigastric pain (principal); Z98.84 Bariatric surgery status; I48.91 Unspecified atrial fibrillation; R19.7 Diarrhea, unspecified; G89.29 Other chronic pain; K21.9 Gastro-esophageal reflux disease without esophagitis; I10 Essential (primary) hypertension; Z90.49 Acquired absence of other specified parts of digestive tract; Z80.9 Family history of malignant neoplasm, unspecified; Z83.3 Family history of diabetes mellitus; Z82.49 Family history of ischemic heart disease and other diseases of the circulatory system; Z87.891 Personal history of nicotine dependence; Z79.899 Other long term (current) drug therapy

== ENCOUNTER 2018-03-24 16:19 | Inpatient (IN) | payer OTHER, MEDICARE ==
[~2018-03-24] VITALS: Ht 160 cm; Wt 99.7 kg
[~2018-03-24 16:19] MED LIST changes: -DIGO0.1267 PO; +NITR-90 PO; -PRLSR20 PO
[2018-03-24] MEDS ORDERED: SODIUM CHLORIDE 0.9% 1000ML 250 ML IV STA (16:28)
--- NOTE | 2018-03-24 16:37 | EMERGENCY ROOM VISIT NOTE ---
History Report prepared by Neena: Eleazar Chou Under the Supervision of: Dr. Norberto Reynoso M.D. First contact with patient: 16:22 Chief Complaint: CHEST PAIN Stated Complaint: CHEST PAIN History of Present Illness The patient is a 67 year old female who presents to the Emergency Room by EMS with complaints of constant lower chest pain beginning one hour ago. She also complains of diaphoresis, and SOB. The patient has a history of similar symptoms with uncertain cause. She has no known history of heart attack. She has a history of A-fib for which she is on Eliquis. The patient denies nausea, vomiting, or pain radiation. She took two Oxycodone at home. She was given IV Fentanyl, oral aspirin and IV Zofran en route. The patient rates her current pain as an 8/10 in severity after the medications. She states that it was a 10/ 10 at its worst. The patient has a history of gastric bypass and bowel resection. Source of History: patient Onset: One hour ago Position: chest (lower) Symptom Intensity: 8/10 currently Timing: constant Modifying Factors (Relieving): other (Oxycodone, Fentanyl, Zofran) Associated Symptoms: + diaphoresis, + SOB, No nausea, No vomiting Note: Negative: pain radiation. Review of Systems See HPI for pertinent positives & negatives. A total of 10 systems reviewed and were otherwise negative. Past Medical & Surgical Medical Problems: (1) ATRIAL FIBRILLATION (2) Atrial fibrillation with RVR (3) Enteritis (4) ESOPHAGEAL REFLUX (5) HYPERTENSION NOS (6) Pain in the abdomen (7) Uncontrolled hypertension Surgical Problems: (1) H/O gastric bypass (2) History of colostomy (3) Hx of cholecystectomy Family History Cancer Diabetes mellitus Gallbladder disease Heart disease Hypertension Social History Smoking Status: Former Smoker Alcohol Use: none Marital Status: Housing Status: lives with family Occupation Status: employed Current/Historical Medications Scheduled Apixaban (Eliquis), 5 MG PO BID Atorvastatin (Lipitor), 40 MG PO DAILY Cholecalciferol (Vitamin D), 2,000 UNITS PO DAILY Diltiazem Hcl Ext Rel (Tiazac), 240 MG PO QAM Fluoxetine (Prozac), 40 MG PO QAM Lisinopril (Prinivil), 20 MG PO QAM Metoprolol Succ (Toprol Xl) (Toprol-Xl ), 200 MG PO QAM Metoprolol Succinate (Metoprolol Succinate ER), 100 MG PO QPM Multivitamin (Multivitamin), 1 TAB PO QAM Omeprazole (Prilosec), 20 MG PO DAILY Ranitidine HCl (Ranitidine HCl), 150 MG PO BID Zinc Sulfate (Zinc Sulfate), 2 TAB PO QAM Scheduled PRN Oxycodone Ir (Roxicodone Ir), 5 MG PO Q6H PRN for Pain Allergies Coded Allergies: No Known Allergies (Verified , 12/25/17) Physical Exam Vital Signs Date Time Temp Pulse Resp B/P (MAP) Pulse Ox O2 Delivery O2 Flow Rate FiO2 03/24/18 18:08 98 18 140/87 98 Room Air 03/24/18 16:28 80 03/24/18 16:24 Nasal Cannula 2.0 03/24/18 16:22 87 Room Air 03/24/18 16:22 98 Nasal Cannula 2.0 03/24/18 16:22 36.5 83 16 137/97 87 Room Air Physical Exam GENERAL: Patient is in no acute distress. HEENT: No acute trauma, normocephalic atraumatic, mucous membranes moist, no nasal congestion, no scleral icterus. NECK: No stridor, no adenopathy, no meningismus, trachea is midline. LUNGS: Clear to auscultation bilaterally, no wheeze, no rhonchi, breath sounds equal. HEART: Irregular with a normal rate. No murmurs. ABDOMEN: Bowel sounds are positive. No peritonitis. Abdomen is soft. Fullness in the epigastrium and RUQ on exam. No significant tenderness. EXTREMITIES: No cyanosis or edema, full range of motion of all the joints without pain or difficulty, no signs for acute trauma. NEUROLOGIC: Oriented x 3, no acute motor or sensory deficits, no focal weakness. SKIN: No rash, no jaundice, no diaphoresis. Medical Decision & Procedures ER Provider Diagnostic Interpretation: Radiology results as stated below per my review and radiologist interpretation: CHEST ONE VIEW PORTABLE FINDINGS: Moderate cardiomegaly. Slight pulmonary vascular prominence unchanged from the prior study. Diaphragms are smooth. There are no focal infiltrates. IMPRESSION: Moderate cardiomegaly. Pulmonary vascular congestion The above report was generated using voice recognition software. It may contain grammatical, syntax or spelling errors. Electronically signed by: Oumar Garza M.D. 03/24/2018 4:46 PM [address]OMEN AND PELVIS CT WITH IV CONTRAST FINDINGS: Trace right pleural effusion has improved. A few small scattered patchy groundglass densities within the lung bases. This is nonspecific and could be due to resolving atelectasis or inflammatory/infectious change. These are stable to improved. Stable 4 mm nodule within the left lower lobe. No pneumoperitoneum. No pneumatosis. No fractures within the visualized osseous structures. Stable smooth erosions within the left posterior L3 and L4 vertebral bodies. This remains unchanged. The heart remains mildly enlarged. Postoperative changes consistent with prior Ngoc-en-Y gastric bypass. The fat stranding adjacent to the gastrojejunostomy has essentially resolved. The central mesenteric fat stranding and prominent mesenteric lymph nodes is also stable to improved. Irregular soft tissue density within the central mesentery has decreased in size and almost completely resolved. This currently measures 13 mm. The bladder is unremarkable. The uterus is surgically absent. Colonic diverticulosis. No bowel wall thickening or obstruction. Normal appendix. No pelvic free fluid. Subcentimeter retroperitoneal lymph nodes are not significantly changed. Mild intrahepatic bile duct dilatation is stable to slightly progressed. Nodular contour to the liver suggestive of cirrhosis. The spleen, adrenal glands, and pancreas are unremarkable. Cholecystectomy. Bilateral renal hypodense lesions remain stable. Bilateral nephrolithiasis. No ureteral stones. No hydronephrosis. No bowel wall thickening or obstruction. IMPRESSION: 1. Improvement in the mesenteric fat stranding and near complete resolution of the irregular soft tissue density within the central mesentery. 2. Stable to slight improvement within the basilar groundglass nodular densities. 3. Trace right pleural effusion has improved. 4. Postoperative changes as described above. 5. Mild intrahepatic bile duct dilatation is stable to slightly progressed. Recommend correlation with LFTs. 6. Bilateral nephrolithiasis. No hydronephrosis. 7. Additional findings as described above. Electronically signed by: Sky Gardner M.D. 03/24/2018 6:01 PM Laboratory Results 03/24/18 16:25 03/24/18 16:25 Test 03/24/18 16:25 Red Blood Count 4.07 M/uL (4.2-5.4) Mean Corpuscular Volume 90.4 fL (80-100) Mean Corpuscular Hemoglobin 28.3 pg (25-34) Mean Corpuscular Hemoglobin Concent 31.3 g/dl (32-36) RDW Standard Deviation 50.0 fL (36.4-46.3) RDW Coefficient of Variation 15.3 % (11.5-14.5) Mean Platelet Volume 8.6 fL (7.4-10.4) Prothrombin Time 11.8 SECONDS (9.0-12.0) Prothromb Time International Ratio 1.1 (0.9-1.1) Activated Partial Thromboplast Time 24.6 SECONDS (21.0-31.0) Partial Thromboplastin Ratio 0.9 Anion Gap 8.0 mmol/L (3-11) Est Creatinine Clear Calc Drug Dose 59.8 ml/min Estimated GFR () 63.8 Estimated GFR (Non- 55.1 BUN/Creatinine Ratio 21.8 (10-20) Calcium Level 8.4 mg/dl (8.5-10.1) Magnesium Level 2.0 mg/dl (1.8-2.4) Total Bilirubin 0.8 mg/dl (0.2-1) Aspartate Amino Transf (AST/SGOT) 43 U/L (15-37) Alanine Aminotransferase (ALT/SGPT) 29 U/L (12-78) Alkaline Phosphatase 159 U/L (45-117) Troponin I < 0.015 ng/ml (0-0.045) Total Protein 6.9 gm/dl (6.4-8.2) Albumin 3.3 gm/dl (3.4-5.0) Globulin 3.6 gm/dl (2.5-4.0) Albumin/Globulin Ratio 0.9 (0.9-2) Lipase 1306 U/L (73-393) Laboratory results reviewed by me. Medications Administered Medications (Trade) Dose Ordered Sig/Elliott Route Start Time Stop Time Status Last Admin Dose Admin Sodium Chloride 250 ml @ 999 mls/hr Q16M STAT IV 03/24/18 16:28 03/24/18 16:43 DC 03/24/18 16:45 999 MLS/HR ECG Per My Interpretation Indication: chest pain Rate (beats per minute): 82 Rhythm: atrial fibrillation Findings: no ectopy, other (No PVCs. No ST elevation. ) ED Course 1621: The patient was evaluated in room B2. A complete history and physical exam was performed. 1628: Ordered Sodium Chloride 250 ml @ 999 mls/hr IV. 1808: Upon reexamination the patient is resting comfortably. I discussed results and treatment plan with the patient. She verbalizes agreement and understanding. I [place] Odon[place] [facility] [place] We discussed the patient's results and findings. The patient will be evaluated [place] [facility] [place]. Medical Decision The patient is a 67 year old female who presents to the ED with complaints of chest pain. Differential diagnoses considered include AL, angina, dysrhythmia, pancreatitis, bowel obstruction, intraabdominal mass, pneumonia, pneumothorax, and PE. There is no leukocytosis or concerning anemia. No significant electrolyte abnormality, no kidney failure. There were a few scattered liver enzyme elevations. There is elevation to the pancreatic enzymes. EKG shows A. fib with a controlled rate, no acute ischemia. Cardiac enzyme testing 1 is not consistent with acute cardiac injury. Abdominal and pelvis CT shows some chronic findings, no bowel obstruction, no free air. Chest x-ray does not show pneumonia, mediastinal widening or pneumothorax. Patient received IV saline, she has been resting comfortably. She had received aspirin prior to arrival, no additional aspirin was given. The patient is improved from how she felt earlier. I do think she requires further cardiac workup. We will need to follow her lipase values as she appears to have acute pancreatitis. I spoke with the patient and case management. The on-call hospitalist was consulted. Medication Reconcilliation Current Medication List: was personally reviewed by me Blood Pressure Screening Patient's blood pressure: Elevated blood pressure Blood pressure disposition: Elevated BP felt to be situational Consults Time Called: 1805 Consulting Physician: Dr. Odonnell - [facility] [place] Returned Call: [phone] Discussed the patient's case. The patient will be evaluated for further management. Impression Primary Impression: Precordial chest pain Additional Impression: Pancreatitis Scribe Attestation The scribe's documentation has been prepared under my direction and personally reviewed by me in its entirety. I confirm that the note above accurately reflects all work, treatment, procedures, and medical decision making performed by me. Departure Information Dispostion Being Evaluated By Hospitalist Referrals Christopher Guevara M.D. (PCP) Patient Instructions My [facility] Problem Qualifiers
[2018-03-24] MEDS ORDERED: OPTIRAY 320 IV PRN (16:45)
--- NOTE | 2018-03-24 16:47 | DIAGNOSTIC IMAGING REPORT ---
CHEST ONE VIEW PORTABLE CLINICAL HISTORY: CHEST PAIN pain COMPARISON STUDY: 12/25/2017 FINDINGS: Moderate cardiomegaly. Slight pulmonary vascular prominence unchanged from the prior study. Diaphragms are smooth. There are no focal infiltrates. IMPRESSION: Moderate cardiomegaly. Pulmonary vascular congestion The above report was generated using voice recognition software. It may contain grammatical, syntax or spelling errors. Electronically signed by: Oumar Garza M.D. 03/24/2018 4:46 PM Dictated Date/Time: 03/24/2018 4:45 PM
[2018-03-24 16:54] LABS: HEMATOCRIT 36.8 % (37-47); HEMOGLOBIN 11.5 g/dL (12.0-16.0); MEAN CELL VOLUME 90.4 fL (80-100); MEAN CORPUSCULAR HEMOGLOBIN 28.3 pg (25-34); MEAN CORPUSCULAR HGB CONC 31.3 g/dl (32-36); MEAN PLATELET VOLUME 8.6 fL (7.4-10.4); PLATELET COUNT 260 K/uL (130-400); RED CELL DISTRIBUTION WIDTH CV 15.3 % (11.5-14.5)
[2018-03-24 17:10] LABS: INR 1.1 (0.9-1.1); PTT PATIENT 24.6 SECONDS (21.0-31.0)
[2018-03-24 17:12] LABS: ALBUMIN 3.3 gm/dl (3.4-5.0); ALT/SGPT 29 U/L (12-78); AST/SGOT 43 U/L (15-37); BLOOD UREA NITROGEN 23 mg/dl (7-18); CALCIUM 8.4 mg/dl (8.5-10.1); CARBON DIOXIDE 25 mmol/L (21-32); CREATININE 1.06 mg/dl (0.60-1.20); GLUCOSE 94 mg/dl (70-99); LIPASE 1306 U/L (73-393); POTASSIUM 4.4 mmol/L (3.5-5.1); SODIUM 143 mmol/L (136-145)
[2018-03-24 17:17] LABS: ALKALINE PHOSPHATASE 159 U/L (45-117); TOTAL PROTEIN 6.9 gm/dl (6.4-8.2)
[2018-03-24] MEDS ORDERED: TPRSR/100 PO (17:26)
[2018-03-24] MEDS ORDERED: LPT40 PO (17:26)
[2018-03-24] MEDS ORDERED: RANI150T2 PO (17:26)
[2018-03-24] MEDS ORDERED: CHOL20009 PO (17:26)
[2018-03-24] MEDS ORDERED: OMEP20CA9 PO (17:26)
--- NOTE | 2018-03-24 18:03 | DIAGNOSTIC IMAGING REPORT ---
ABDOMEN AND PELVIS CT WITH IV CONTRAST CT DOSE: 994.64 mGy.cm HISTORY: Generalized abdominal pain, POSS OBSTRUCTION, IV CONTRAST ONLY TECHNIQUE: Multiaxial CT images of the abdomen and pelvis were performed following the use of intravenous contrast. A dose lowering technique was utilized adhering to the principles of ALARA. COMPARISON STUDY: Abdomen and pelvis CT 12/25/2007. FINDINGS: Trace right pleural effusion has improved. A few small scattered patchy groundglass densities within the lung bases. This is nonspecific and could be due to resolving atelectasis or inflammatory/infectious change. These are stable to improved. Stable 4 mm nodule within the left lower lobe. No pneumoperitoneum. No pneumatosis. No fractures within the visualized osseous structures. Stable smooth erosions within the left posterior L3 and L4 vertebral bodies. This remains unchanged. The heart remains mildly enlarged. Postoperative changes consistent with prior Ngoc-en-Y gastric bypass. The fat stranding adjacent to the gastrojejunostomy has essentially resolved. The central mesenteric fat stranding and prominent mesenteric lymph nodes is also stable to improved. Irregular soft tissue density within the central mesentery has decreased in size and almost completely resolved. This currently measures 13 mm. The bladder is unremarkable. The uterus is surgically absent. Colonic diverticulosis. No bowel wall thickening or obstruction. Normal appendix. No pelvic free fluid. Subcentimeter retroperitoneal lymph nodes are not significantly changed. Mild intrahepatic bile duct dilatation is stable to slightly progressed. Nodular contour to the liver suggestive of cirrhosis. The spleen, adrenal glands, and pancreas are unremarkable. Cholecystectomy. Bilateral renal hypodense lesions remain stable. Bilateral nephrolithiasis. No ureteral stones. No hydronephrosis. No bowel wall thickening or obstruction. IMPRESSION: 1. Improvement in the mesenteric fat stranding and near complete resolution of the irregular soft tissue density within the central mesentery. 2. Stable to slight improvement within the basilar groundglass nodular densities. 3. Trace right pleural effusion has improved. 4. Postoperative changes as described above. 5. Mild intrahepatic bile duct dilatation is stable to slightly progressed. Recommend correlation with LFTs. 6. Bilateral nephrolithiasis. No hydronephrosis. 7. Additional findings as described above. Electronically signed by: Sky Gardner M.D. 03/24/2018 6:01 PM Dictated Date/Time: 03/24/2018 5:41 PM
[2018-03-24] MEDS ORDERED: ALUMINUM/MAGNESIUM SUSP 30 ML UDC ONE (19:56)
[2018-03-24] MEDS ORDERED: LIDOCAINE HCL 2% VISC SOLN 20 ML UDC ONE (19:56)
[2018-03-24] MEDS ORDERED: GI COCKTAIL PO ONE (20:00)
--- NOTE | 2018-03-24 20:38 | History and Physical ---
History & Physical Date & Time of Service: Mar 24, 2018 at 19:55 Chief Complaint: Chest Pain Primary Care Physician: Christopher Guevara M.D. History of Present Illness Source: patient, family (), hospital records Mrs Dawkins is a 67 year old female who presents to the ER with sudden onset epigastric pain. She has chronic epigastric pain which occurs after she eats ever since her gastric bypass operation in 2007. On this occasion she was out doing yard work but then while sitting in the car around 3pm she noticed sudden onset epigastric pain associated with nausea, diaphoresis and shortness of breath. Severity 09/10. No radiation. She took oxycodone x2 which did not help. Her last bowel movement was watery which is unusual for her (she does have a history of c. diff. She has chronic atrial fibrillation and did not notice any palpitations during this episode. Since she was in the car she does not know if the pain was exertional or positional as they came straight to the ER. She was seen in the ER in December with LUQ cramping pain which resolved with a GI cocktail. On that occasion she was off of her omeprazole. She reports no heartburn recently. She has a complex abdominal history with history obtained from [facility] medical records on prior ER visit in Dec. She underwent laparoscopic Raudel en Y bypass done at [facility] (Dr Ruiz) in 2007. 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 In June 2015 she had a laparoscopic duodenojejunal bypass and cholecystectomy performed at [place] by Dr Garcia. The surgery was complicated by an incisional hernia that was repaired in September 2016. Post-operatively she developed c. diff. Since her bypass operation she notes she has had chronic abdominal pain and diarrhea (see above). She underwent her most recent EGD and colonoscopy in June 2017 which showed normal esophagus, widely patient non-obstructing Schatzki ring , small hiatus hernia, patient BillrothI appearing gastroduodenostomy, normal jejunum, non bleeding hemorrhoids and otherwise normal colonoscopy. Past Medical/Surgical History Medical Problems: (1) A-fib (2) Abdominal pain (3) Abdominal pain, left upper quadrant (9) Enteritis (10) ESOPHAGEAL REFLUX (11) HYPERTENSION NOS (12) Intractable epigastric abdominal pain (15) Pancreatitis Surgical Problems: (1) H/O gastric bypass (2) History of colostomy (3) Hx of cholecystectomy (4) Hx of hernia repair Family History Cancer Diabetes mellitus Gallbladder disease Heart disease Hypertension Social History Smoking Status: Former Smoker Marital Status: Housing status: lives with family Occupational Status: employed Immunizations History of Influenza Vaccine: Yes Influenza Vaccine Date: Sep 18, 2011 History of Tetanus Vaccine?: Unknown History of Pneumococcal: No History of Hepatitis B Vaccine: Yes Hepatitis Immunization Date: Mar 27, 2011 Allergies Coded Allergies: No Known Allergies (Verified , 12/25/17) Home Medications Scheduled Apixaban (Eliquis), 5 MG PO BID Atorvastatin (Lipitor), 40 MG PO DAILY Cholecalciferol (Vitamin D), 2,000 UNITS PO DAILY Diltiazem Hcl Ext Rel (Tiazac), 240 MG PO QAM Fluoxetine (Prozac), 40 MG PO QAM Lisinopril (Prinivil), 20 MG PO QAM Metoprolol Succ (Toprol Xl) (Toprol-Xl ), 200 MG PO QAM Metoprolol Succinate (Metoprolol Succinate ER), 100 MG PO QPM Multivitamin (Multivitamin), 1 TAB PO QAM Omeprazole (Prilosec), 20 MG PO DAILY Ranitidine HCl (Ranitidine HCl), 150 MG PO BID Zinc Sulfate (Zinc Sulfate), 2 TAB PO QAM Scheduled PRN Oxycodone Ir (Roxicodone Ir), 5 MG PO Q6H PRN for Pain Review of Systems All systems reviewed and otherwise negative other than HPI Physical Exam Vital Signs Date Time Temp Pulse Resp B/P (MAP) Pulse Ox O2 Delivery O2 Flow Rate FiO2 03/24/18 19:54 36.5 94 18 113/79 96 03/24/18 19:38 94 18 113/79 96 Room Air 03/24/18 18:08 98 18 140/87 98 Room Air 03/24/18 16:28 80 03/24/18 16:24 Nasal Cannula 2.0 03/24/18 16:22 87 Room Air 03/24/18 16:22 98 Nasal Cannula 2.0 03/24/18 16:22 36.5 83 16 137/97 87 Room Air General Appearance: WD/WN, no apparent distress Head: normocephalic, atraumatic Eyes: normal inspection (pupils equal) ENT: pharynx normal Neck: trachea midline Respiratory/Chest: lungs clear, normal breath sounds, no respiratory distress, no accessory muscle use Cardiovascular: no murmur, normal peripheral pulses, + irregularly irregular Abdomen/GI: normal bowel sounds, soft, + tenderness (epigastric pain without guarding or rebound tenderness) Back: no CVA tenderness Extremities/Musculoskelatal: no calf tenderness, normal capillary refill, no pedal edema 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 (no facial droop), no motor/sensory deficits (grossly normal), alert, oriented x 3 Skin: normal color, warm/dry, no rash Diagnostics Laboratory Results Results Past 24 Hours Test 03/24/18 16:25 Range/Units White Blood Count 7.30 4.8-10.8 K/uL Red Blood Count 4.07 4.2-5.4 M/uL Hemoglobin 11.5 12.0-16.0 g/dL Hematocrit 36.8 37-47 % Mean Corpuscular Volume 90.4 80-100 fL Mean Corpuscular Hemoglobin 28.3 25-34 pg Mean Corpuscular Hemoglobin Concent 31.3 32-36 g/dl RDW Standard Deviation 50.0 36.4-46.3 fL RDW Coefficient of Variation 15.3 11.5-14.5 % Platelet Count 260 130-400 K/uL Mean Platelet Volume 8.6 7.4-10.4 fL Prothrombin Time 11.8 9.0-12.0 SECONDS Prothromb Time International Ratio 1.1 0.9-1.1 Activated Partial Thromboplast Time 24.6 21.0-31.0 SECONDS Partial Thromboplastin Ratio 0.9 Sodium Level 143 136-145 mmol/L Potassium Level 4.4 3.5-5.1 mmol/L Chloride Level 110 98-107 mmol/L Carbon Dioxide Level 25 21-32 mmol/L Anion Gap 8.0 3-11 mmol/L Blood Urea Nitrogen 23 7-18 mg/dl Creatinine 1.06 0.60-1.20 mg/dl Est Creatinine Clear Calc Drug Dose 59.8 ml/min Estimated GFR () 63.8 Estimated GFR (Non- 55.1 BUN/Creatinine Ratio 21.8 10-20 Random Glucose 94 70-99 mg/dl Calcium Level 8.4 8.5-10.1 mg/dl Magnesium Level 2.0 1.8-2.4 mg/dl Total Bilirubin 0.8 0.2-1 mg/dl Aspartate Amino Transf (AST/SGOT) 43 15-37 U/L Alanine Aminotransferase (ALT/SGPT) 29 12-78 U/L Alkaline Phosphatase 159 45-117 U/L Troponin I < 0.015 0-0.045 ng/ml Total Protein 6.9 6.4-8.2 gm/dl Albumin 3.3 3.4-5.0 gm/dl Globulin 3.6 2.5-4.0 gm/dl Albumin/Globulin Ratio 0.9 0.9-2 Lipase 1306 73-393 U/L Diagnostic Radiology CHEST ONE VIEW PORTABLE CLINICAL HISTORY: CHEST PAIN pain COMPARISON STUDY: 12/25/2017 FINDINGS: Moderate cardiomegaly. Slight pulmonary vascular prominence unchanged from the prior study. Diaphragms are smooth. There are no focal infiltrates. IMPRESSION: Moderate cardiomegaly. Pulmonary vascular congestion The above report was generated using voice recognition software. It may contain grammatical, syntax or spelling errors. Electronically signed by: Oumar Garza M.D. 03/24/2018 4:46 PM Dictated Date/Time: 03/24/2018 4:45 PM EKG Atrial fibrillation probable Inferior infarct , age undetermined Abnormal ECG When compared with ECG of 25-DEC-2017 12:14, No significant change was found Confirmed by Christopher Monzon ([id number]) on 03/24/2018 5:22:32 PM Impression Assessment and Plan 67 year old female with complicated GI history including gastric raudel en Y presents with acute epigastric pain Epigastric pain - likely acute on chronic non specific epigastric pain, will try GI cocktail as this worked for her in December, consult GI (Dr Murphy) in am - possible pancreatitis given elevated lipase (see below) - will get 6 hour and AM troponin to rule out VA given risk factors but patient description is epigastric rather than chest pain Acute Pancreatitis - based on elevated lipase, unclear if this is the cause of her pain given acute on chronic nature - LR 150 MLS/HR - Ondansetron for nausea GERD - continue ranitidine - switch omeprazole to pantoprazole as per formulary Atrial fibrillation - rate controlled with metoprolol (patient reports no longer taking evening dose ) and diltiazem - anticoagulation with apixaban VTE Prophylaxis - apixaban 5mg BID I personally interviewed and examined the patient. I agree with history of present illness and physical exam mentioned above, I also performed my own history taking and examination. Past medical history and review of system has been obtained by myself I reviewed all pertinent labs and studies Reviewed current medications I discussed and formulated of the assessment and plan mentioned above. Please refer to the Summary mentioned below. 67 years old female with past medical history of Prior Raudel-en-Y gastric bypass in 2007 and atrial fibrillation currently on Eliquis. She was in her regular state of health until today she was working in the yard when she developed sudden epigastric pain slightly referred to the right side of the chest. Patient presented to the ED and was found to have extremely elevated lipase, 1300. Patient's last alcoholic beverage was about 2 weeks ago. Patient also has cholecystectomy and previous CAT scan abdomen there was some dilation and hepatic ducts possibly postoperative changes status post cholecystectomy state. On arrival to the ED patient slightly improved with IV fluid hydration and pain management. Plan Admit patient to telemetry Keep n.p.o. for bowel rest except medications and ice chips and sips of water Introduce oral intake as early as possible Generous IV fluid hydration CT scan abdomen reviewed and ruled out hemorrhagic pancreatitis Hold off on antibiotics unless hemorrhagic pancreatitis is suspected Lipid panel rule out hypertriglyceridemia Pain management Pepcid IV twice daily Heparin for DVT prophylaxis General Appearance: not in acute distress Eyes: normal Sclerae, extraocular muscle intact ENT: hearing grossly normal Neck: supple Respiratory/Chest: normal air entry bilateral ,no respiratory distress, no accessory muscle use Cardiovascular: regular rate, rhythm, no murmur Abdomen: Epigastric tenderness, soft, no masses Extremities: no edema musculoskeletal: no significant swelling or inflammation in any joint Neurologic/Psychiatric: Awake alert oriented times place and person moves all extremities sensation intact cranial nerves II-12 appear to be intact Skin: normal color, warm/dry, no rash Alexander Rivera MD, [facility] hospitalist group Resuscitation Status Full VTE Prophylaxis Will order VTE Prophylaxis: Yes (apixaban) Additional Copies To Christopher Guevara M.D. Resident Tracking Resident Involvement: Resident Care Provided Care Provided: Adult Hospital Medicine
[2018-03-24 20:53] VITALS: BP 132/84; PULSE 108; TEMP 36.5; O2SAT 94
[2018-03-24] MEDS: LACTATED RINGER'S 1000ML 1,000 ML IV SCH (21:26)
[2018-03-24] MEDS: OXYCODONE HCL IR 5 MG TAB (IMMEDIATE RELEASE) PO PRN (21:39)
[2018-03-24] MEDS: APIXABAN 2.5 MG TAB PO SCH (21:49)
[2018-03-24] MEDS: PANTOprazole SOD 40 MG TAB PO SCH (21:49)
[2018-03-24 22:15] VITALS: O2SAT 94; Ht 160 cm; Wt 99.7 kg
[2018-03-24] MEDS: RANITIDINE HCL 150 MG TAB PO SCH (22:23)
[2018-03-25] VITALS (9 sets, daily range): BP systolic 131–155; BP diastolic 81–91; PULSE 58–92; TEMP 36.7–36.8; O2SAT 90–95
[2018-03-25] MEDS: LACTATED RINGER'S 1000ML 1,000 ML IV SCH ×4 (03:56→21:48)
[2018-03-25 05:06] LABS: EOS ABS # 0.05 K/uL (0-0.5); HEMATOCRIT 35.5 % (37-47); HEMOGLOBIN 10.9 g/dL (12.0-16.0); LYMPH % 18.3 %; LYMPH ABS # 0.88 K/uL (1.2-3.4); MEAN CELL VOLUME 90.8 fL (80-100); MEAN CORPUSCULAR HEMOGLOBIN 27.9 pg (25-34); MEAN CORPUSCULAR HGB CONC 30.7 g/dl (32-36); MEAN PLATELET VOLUME 8.6 fL (7.4-10.4); MONO % 11.2 %; MONO ABS # 0.54 K/uL (0.11-0.59); NEUT % 69.5 %; NEUT ABS # 3.35 K/uL (1.4-6.5); PLATELET COUNT 221 K/uL (130-400); RED CELL DISTRIBUTION WIDTH CV 15.2 % (11.5-14.5); RED CELL DISTRIBUTION WIDTH SD 50.7 fL (36.4-46.3); WHITE BLOOD COUNT 4.82 K/uL (4.8-10.8)
[2018-03-25 05:29] LABS: ALBUMIN 2.8 gm/dl (3.4-5.0); ALT/SGPT 180 U/L (12-78); AST/SGOT 211 U/L (15-37); BLOOD UREA NITROGEN 22 mg/dl (7-18); CALCIUM 8.6 mg/dl (8.5-10.1); CARBON DIOXIDE 29 mmol/L (21-32); CREATININE 1.01 mg/dl (0.60-1.20); GLUCOSE 88 mg/dl (70-99); POTASSIUM 4.3 mmol/L (3.5-5.1); SODIUM 141 mmol/L (136-145)
[2018-03-25 05:35] LABS: ALKALINE PHOSPHATASE 313 U/L (45-117); LIPASE 2158 U/L (73-393); TOTAL PROTEIN 6.4 gm/dl (6.4-8.2)
[2018-03-25] MEDS: PANTOprazole SOD 40 MG TAB PO SCH ×2 (07:49→20:03)
[2018-03-25] MEDS: MULTIVITAMIN TAB PO SCH (07:49)
[2018-03-25] MEDS: APIXABAN 2.5 MG TAB PO SCH ×2 (07:49→20:03)
[2018-03-25] MEDS: DILTIAZEM HCL 120 MG EXT REL CAP PO SCH (07:49)
[2018-03-25] MEDS: CHOLECALCIFEROL 1000 INTER.UNIT TAB PO SCH (07:49)
[2018-03-25] MEDS: ZINC SULFATE 220 MG CAP PO SCH (07:49)
[2018-03-25] MEDS: FLUOXETINE HCL 20 MG CAP PO SCH (07:50)
[2018-03-25] MEDS: ATORVASTATIN 40 MG TAB PO SCH (07:50)
[2018-03-25] MEDS: METOPROLOL SUCC 50MG EXT REL TAB PO SCH (07:50)
[2018-03-25] MEDS: RANITIDINE HCL 150 MG TAB PO SCH ×2 (07:50→20:02)
[2018-03-25] MEDS ORDERED: LISINOPRIL 20 MG TAB PO SCH (09:00)
[2018-03-25] MEDS ORDERED: LACTATED RINGER'S 1000ML 1,000 ML IV SCH (14:15)
--- NOTE | 2018-03-25 14:28 | Gastrointestinal Consultation ---
Gastrointestinal Consultation Date of Consultation: Mar 25, 2018 Attending Physician: DR Miguel Jenkins Consulting Physician: Dr Freddy Marshall Reason for Consultation: pancreatitis History of Present Illness Patient is a 67 year old female with cc of abd pain. HPI with patient for H and P. Reviewed [place] EMR and [facility] EMR. Pt sees Dr Murphy in the office and saw him last 12/31/17. Pt has mesenteric fibrosing disease causing adhesions. She is s/p gastric bypass 2007 with benign mesenteric process developing afterwards obstructing duodenum. She had duodenal bypasss 2014. She had colonscopy to TI normal exam 06/2017 and random bx of TI and colon normal. She had EGD 06/2017 also showing gastric bypass, small HH, ring, inflammation at suture line. Random bx of jejunum and antrum negative. She had abrupt onset of epigastric/lower chest pain up to 09/10 and came to ER. CT a/p showieed cirrhosis, somewhat worse bile duct dilatation, stable LLL nodule. She is s/p irwin. Lipase elevated on admit worse today. LFTS on admit normal now worse. Abd pain better at 01/11. No i/o ordered but patient states urine cloudy and dark and burning. Some n/v with this process and had n/v today. Most recent stool was at home and loose but no stools since admit. She states lately gaining weight. No bloody stools nor black stools. Past Medical/Surgical History Medical Problems: (1) Abdominal pain, left upper quadrant Status: Acute (2) Chest wall pain Status: Acute (3) Intractable epigastric abdominal pain Status: Acute (4) Pain from gastrostomy tube Status: Acute (5) Pancreatitis Status: Acute (6) Precordial chest pain Status: Acute (7) Substernal chest pain Status: Acute Family History Cancer Diabetes mellitus Gallbladder disease Heart disease Hypertension Social History Smoking Status: Former Smoker Alcohol Use: none Marital Status: Housing Status: lives with family Occupation Status: employed Allergies Coded Allergies: No Known Allergies (Verified , 12/25/17) Current Medications Home Meds and Scripts Medications Dose Route/Sig Max Daily Dose Days Date Category Vitamin D (Cholecalciferol) 2,000 Unit Tab 2,000 Units PO DAILY 03/24/18 Reported Ranitidine HCl 150 Mg Tab 150 Mg PO BID 03/24/18 Reported Lipitor (Atorvastatin Calcium) 40 Mg Tab 40 Mg PO DAILY 03/24/18 Reported Prilosec (Omeprazole) 20 Mg Cap 20 Mg PO DAILY 03/24/18 Reported Metoprolol Succinate ER (Metoprolol Succinate) 100 Mg Tabcr 100 Mg PO QPM 03/24/18 Reported Eliquis (Apixaban) 5 Mg Tab 5 Mg PO BID 12/25/17 Reported Roxicodone Ir (Oxycodone HCl) 5 Mg Tab 5 Mg PO Q6H PRN 06/12/17 Reported Zinc Sulfate 220 Mg Cap 2 Tab PO QAM 12/31/16 Reported Multivitamin (Multivitamins) Tab 1 Tab PO QAM 12/31/16 Reported Toprol-Xl (Metoprolol Succinate) 100 Mg Tabcr 200 Mg PO QAM 12/31/16 Reported Prinivil (Lisinopril) 20 Mg Tab 20 Mg PO QAM 12/31/16 Reported Prozac (Fluoxetine HCl) 40 Mg Cap 40 Mg PO QAM 10/20/15 Reported Tiazac (Diltiazem HCl) 240 Mg Capcr 240 Mg PO QAM 10/20/15 Reported Review of Systems see HPI. Otherwise 10 ROS negative. Physical Exam Date Time Temp Pulse Resp B/P (MAP) Pulse Ox O2 Delivery O2 Flow Rate FiO2 03/25/18 11:25 36.8 75 18 155/90 (111) 92 Room Air 03/25/18 08:00 Room Air 03/25/18 07:22 36.8 77 18 148/83 (104) 90 Room Air 03/25/18 04:00 Room Air 03/25/18 04:00 36.8 58 16 137/91 (106) 92 Room Air 03/25/18 00:29 36.8 92 16 138/84 (102) 90 Room Air 03/25/18 00:00 Room Air 03/24/18 22:15 94 Room Air 03/24/18 20:53 36.5 108 18 132/84 (100) 94 Room Air 03/24/18 19:54 36.5 94 18 113/79 96 03/24/18 19:38 94 18 113/79 96 Room Air 03/24/18 18:08 98 18 140/87 98 Room Air 03/24/18 16:28 80 03/24/18 16:24 Nasal Cannula 2.0 03/24/18 16:22 87 Room Air 03/24/18 16:22 98 Nasal Cannula 2.0 03/24/18 16:22 36.5 83 16 137/97 87 Room Air General Appearance: WD/WN, no apparent distress Eyes: normal inspection, PERRL ENT: hearing grossly normal, pharynx normal Neck: supple, trachea midline Respiratory/Chest: lungs clear, no respiratory distress Cardiovascular: regular rate, rhythm, no murmur Abdomen: normal bowel sounds, soft, no organomegaly, no pulsatile mass, + tenderness (subjective epigastric pain but no guarding nor rebound) Extremities: normal range of motion, normal inspection 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, normal mood/affect, oriented x 3 Skin: normal color, warm/dry Laboratory Results Last 24 Hours Test 03/24/18 16:25 03/24/18 20:50 03/24/18 20:55 03/25/18 04:49 White Blood Count 7.30 K/uL 4.82 K/uL Red Blood Count 4.07 M/uL 3.91 M/uL Hemoglobin 11.5 g/dL 10.9 g/dL Hematocrit 36.8 % 35.5 % Mean Corpuscular Volume 90.4 fL 90.8 fL Mean Corpuscular Hemoglobin 28.3 pg 27.9 pg Mean Corpuscular Hemoglobin Concent 31.3 g/dl 30.7 g/dl RDW Standard Deviation 50.0 fL 50.7 fL RDW Coefficient of Variation 15.3 % 15.2 % Platelet Count 260 K/uL 221 K/uL Mean Platelet Volume 8.6 fL 8.6 fL Prothrombin Time 11.8 SECONDS Prothromb Time International Ratio 1.1 Activated Partial Thromboplast Time 24.6 SECONDS Partial Thromboplastin Ratio 0.9 Sodium Level 143 mmol/L 141 mmol/L Potassium Level 4.4 mmol/L 4.3 mmol/L Chloride Level 110 mmol/L 110 mmol/L Carbon Dioxide Level 25 mmol/L 29 mmol/L Anion Gap 8.0 mmol/L 2.0 mmol/L Blood Urea Nitrogen 23 mg/dl 22 mg/dl Creatinine 1.06 mg/dl 1.01 mg/dl Est Creatinine Clear Calc Drug Dose 59.8 ml/min 62.8 ml/min Estimated GFR () 63.8 67.7 Estimated GFR (Non- 55.1 58.4 BUN/Creatinine Ratio 21.8 21.9 Random Glucose 94 mg/dl 88 mg/dl Calcium Level 8.4 mg/dl 8.6 mg/dl Magnesium Level 2.0 mg/dl Total Bilirubin 0.8 mg/dl 1.2 mg/dl Aspartate Amino Transf (AST/SGOT) 43 U/L 211 U/L Alanine Aminotransferase (ALT/SGPT) 29 U/L 180 U/L Alkaline Phosphatase 159 U/L 313 U/L Troponin I < 0.015 ng/ml < 0.015 ng/ml < 0.015 ng/ml Total Protein 6.9 gm/dl 6.4 gm/dl Albumin 3.3 gm/dl 2.8 gm/dl Globulin 3.6 gm/dl 3.6 gm/dl Albumin/Globulin Ratio 0.9 0.8 Lipase 1306 U/L 2158 U/L Hepatitis C Antibody Screen NEG Neutrophils (%) (Auto) 69.5 % Lymphocytes (%) (Auto) 18.3 % Monocytes (%) (Auto) 11.2 % Eosinophils (%) (Auto) 1.0 % Basophils (%) (Auto) 0.0 % Neutrophils # (Auto) 3.35 K/uL Lymphocytes # (Auto) 0.88 K/uL Monocytes # (Auto) 0.54 K/uL Eosinophils # (Auto) 0.05 K/uL Basophils # (Auto) 0.00 K/uL Immature Granulocyte % (Auto) 0.0 % Immature Granulocyte # (Auto) 0.00 K/uL Direct Bilirubin 0.6 mg/dl Triglycerides Level 59 mg/dl Impression pancreatits--lipase worse and by clinical history urine is dark. If pancreas does not see adequate fluid the pancreatitis can turn into necrotizing pancreatits. I feel she clinically has pancreatitis although no mention on CT. Will bolus LR and increase rate to 250 ml/hour with goal to have 0.5 ml/kg/hour urine output or higher. Would not advance to solid food until clearly improved with much improved lipase. epigastric pain from pancreatiti cirrhosis suggestion on CT--no evidence of varices on EGD 06/2017, outpt workup elevated LFTS--I am worried about bump in LFTS today along with dilated duct worsening on ct --check MRCP for bile duct stone n/v--secondary to pancreaitis urine dark and burning--check UA and culture. normocytica anemia--no history of GI bleeding.
--- NOTE | 2018-03-25 18:51 | DIAGNOSTIC IMAGING REPORT ---
MRCP CLINICAL HISTORY: pancreatitis, elevated LFTs. Evaluate for common bile duct calculus. COMPARISON STUDY: CT scan dated 03/24/2018 FINDINGS: The gallbladder surgically absent. There is no pancreatic ductal dilatation. The common bile duct measures 6.7 mm. There are no filling defects to indicate common bile duct calculi. There are T2 bright renal lesions consistent with cysts. There is a T2 bright 8 mm lesion near the right hepatic dome likely representing a cyst. 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 IMPRESSION: 1. Surgically absent gallbladder 2. 6.7 mm common bile duct 3. Normal caliber pancreatic duct 4. No common bile duct calculi identified 5. Mild peripancreatic and periduodenal edema consistent with the clinical history of pancreatitis. Electronically signed by: Shahid Dempsey M.D. 03/25/2018 6:49 PM Dictated Date/Time: 03/25/2018 6:43 PM
[2018-03-25] MEDS: NITROFURANTOIN MONOHYDRATE 100 MG CAP PO SCH (20:02)
[2018-03-26] VITALS (10 sets, daily range): BP systolic 128–191; BP diastolic 80–122; PULSE 84–108; TEMP 36.4–36.9; O2SAT 91–97
[2018-03-26] MEDS: LACTATED RINGER'S 1000ML 1,000 ML IV SCH ×4 (01:14→16:20)
[2018-03-26] MEDS: OXYCODONE HCL IR 5 MG TAB (IMMEDIATE RELEASE) PO PRN (06:00)
[2018-03-26 06:48] LABS: BASO % 0.3 %; BASO ABS # 0.01 K/uL (0-0.2); EOS ABS # 0.06 K/uL (0-0.5); HEMATOCRIT 36.8 % (37-47); HEMOGLOBIN 11.6 g/dL (12.0-16.0); LYMPH % 25.9 %; LYMPH ABS # 0.78 K/uL (1.2-3.4); MEAN CELL VOLUME 90.6 fL (80-100); MEAN CORPUSCULAR HEMOGLOBIN 28.6 pg (25-34); MEAN CORPUSCULAR HGB CONC 31.5 g/dl (32-36); MEAN PLATELET VOLUME 8.8 fL (7.4-10.4); MONO ABS # 0.27 K/uL (0.11-0.59); NEUT % 62.8 %; NEUT ABS # 1.89 K/uL (1.4-6.5); PLATELET COUNT 199 K/uL (130-400); RED CELL DISTRIBUTION WIDTH CV 15.3 % (11.5-14.5); WHITE BLOOD COUNT 3.01 K/uL (4.8-10.8)
--- NOTE | 2018-03-26 06:50 | Clinical Documentation Query ---
CLINICAL DOCUMENTATION QUERY Dr. PINO, In your clinical opinion is this patient being managed for: ( x ) Urinary tract infection, POA ( ) Urinary tract infection, not POA ( ) Not Agree ( ) Other explanation of clinical findings (Please Explain. If no explanation given, this would be considered a no response.) ( ) Unable to determine ( ) Need to Discuss (Please call CDS via extension or qliq. If no interaction occurs this is considered a no response.) The medical record reflects the following clinical findings, treatment, and risk factors. Clinical Indicators: 67 yo female presenting with acute pancreatitis. UA showed Large LE, >30 WBC and +3 bacteria. Treatment: macrobid, IV fluids, UA with cx which is pending Risk Factors: age, gender Please clarify and document your clinical opinion in the progress notes and discharge summary. Terms such as "probable", "suspected", "likely", "questionable", "possible", or "still to be ruled out" are acceptable. IF IN AGREEMENT, YOU MUST DOCUMENT ABOVE DIAGNOSTIC STATEMENT IN DAILY PROGRESS NOTES AND DISCHARGE SUMMARY. This document is not part of the patient's record. Thank You, Trupti Jackman, RN [phone]
[2018-03-26 07:28] LABS: ALBUMIN 2.7 gm/dl (3.4-5.0); CALCIUM 8.4 mg/dl (8.5-10.1); CREATININE 0.82 mg/dl (0.60-1.20); POTASSIUM 3.9 mmol/L (3.5-5.1); TOTAL PROTEIN 6.3 gm/dl (6.4-8.2)
[2018-03-26] MEDS: RANITIDINE HCL 150 MG TAB PO SCH ×2 (07:55→20:41)
[2018-03-26] MEDS: PANTOprazole SOD 40 MG TAB PO SCH ×2 (07:55→20:41)
--- NOTE | 2018-03-26 08:00 | Progress Note ---
Subjective Date of Service: Mar 25, 2018. Subjective Pt evaluation today including: conversation w/ patient Late input. Patient seen on 03-25-18. Patient reports feeling better this afternoon. Patient in the AM had an episode of vomiting. Patient however states that now, her nausea has decreased, and her abdominal pain has improved. Problem List Medical Problems: (1) Abdominal pain, left upper quadrant Status: Acute (2) Chest wall pain Status: Acute (3) Intractable epigastric abdominal pain Status: Acute (4) Pain from gastrostomy tube Status: Acute (5) Pancreatitis Status: Acute (6) Precordial chest pain Status: Acute (7) Substernal chest pain Status: Acute Review of Systems Constitutional: No fever, No chills Eyes: No worsening of vision Respiratory: No cough Cardiac: No chest pain Abdomen: + pain, + nausea, + vomiting, + diarrhea Neurologic: No memory loss Psychiatric: No depression symptoms Heme: No abnormal bleeding/bruising Endo: No fatigue Skin: No rash All Other Systems: Reviewed and Negative Objective Vital Signs Date Time Temp Pulse Resp B/P (MAP) Pulse Ox O2 Delivery O2 Flow Rate FiO2 03/26/18 07:26 36.4 97 16 138/84 (102) 97 Room Air 03/26/18 04:19 36.9 84 16 152/98 (116) 91 Room Air 03/26/18 04:00 Room Air 03/26/18 00:20 Room Air 03/25/18 23:46 36.7 81 16 146/82 (103) 91 Room Air 03/25/18 20:01 36.7 71 20 146/85 (105) 95 Room Air 03/25/18 20:00 93 Room Air 03/25/18 16:00 93 Room Air 03/25/18 15:34 36.7 61 18 131/81 (98) 93 Room Air 03/25/18 11:25 36.8 75 18 155/90 (111) 92 Room Air 03/25/18 08:00 Room Air Physical Exam Comments: General Appearance: WD/WN, no apparent distress Eyes: normal inspection, PERRL ENT: hearing grossly normal, pharynx normal Neck: supple, trachea midline Respiratory/Chest: lungs clear, no respiratory distress Cardiovascular: regular rate, rhythm, no murmur Abdomen: normal bowel sounds, soft, no organomegaly, no pulsatile mass, + tenderness to epigastric region with deep palpation. Extremities: normal range of motion, normal inspection Neurologic/Psych: traffic court magistrate II-XII nml as tested, normal mood/affect, oriented x 3 Skin: normal color, warm/dry Laboratory Results Last 24 Hours Test 03/25/18 15:15 03/26/18 06:24 Urine Color YELLOW Urine Appearance CLOUDY Urine pH 5.0 Urine Specific [place] 1.021 Urine Protein NEG Urine Glucose (UA) NEG Urine Ketones NEG Urine Occult Blood 1+ Urine Nitrite POS Urine Bilirubin NEG Urine Urobilinogen NEG Urine Leukocyte Esterase LARGE Urine WBC (Auto) >30 /hpf Urine RBC (Auto) 0-4 /hpf Urine Hyaline Casts (Auto) 1-5 /lpf Urine Epithelial Cells (Auto) 20-30 /lpf Urine Bacteria (Auto) 3+ Urine Yeast (Auto) White Blood Count 3.01 K/uL Red Blood Count 4.06 M/uL Hemoglobin 11.6 g/dL Hematocrit 36.8 % Mean Corpuscular Volume 90.6 fL Mean Corpuscular Hemoglobin 28.6 pg Mean Corpuscular Hemoglobin Concent 31.5 g/dl Platelet Count 199 K/uL Mean Platelet Volume 8.8 fL Neutrophils (%) (Auto) 62.8 % Lymphocytes (%) (Auto) 25.9 % Monocytes (%) (Auto) 9.0 % Eosinophils (%) (Auto) 2.0 % Basophils (%) (Auto) 0.3 % Neutrophils # (Auto) 1.89 K/uL Lymphocytes # (Auto) 0.78 K/uL Monocytes # (Auto) 0.27 K/uL Eosinophils # (Auto) 0.06 K/uL Basophils # (Auto) 0.01 K/uL RDW Standard Deviation 51.0 fL RDW Coefficient of Variation 15.3 % Immature Granulocyte % (Auto) 0.0 % Immature Granulocyte # (Auto) 0.00 K/uL Sodium Level 140 mmol/L Potassium Level 3.9 mmol/L Chloride Level 109 mmol/L Carbon Dioxide Level 28 mmol/L Anion Gap 3.0 mmol/L Blood Urea Nitrogen 14 mg/dl Creatinine 0.82 mg/dl Est Creatinine Clear Calc Drug Dose 77.6 ml/min Estimated GFR () 87.0 Estimated GFR (Non- 75.1 BUN/Creatinine Ratio 16.8 Random Glucose 83 mg/dl Calcium Level 8.4 mg/dl Total Bilirubin 0.8 mg/dl Direct Bilirubin 0.3 mg/dl Aspartate Amino Transf (AST/SGOT) 72 U/L Alanine Aminotransferase (ALT/SGPT) 111 U/L Alkaline Phosphatase 273 U/L Total Protein 6.3 gm/dl Albumin 2.7 gm/dl Globulin 3.6 gm/dl Albumin/Globulin Ratio 0.8 Lipase 272 U/L Assessment and Plan 67 year old female with complicated GI history including gastric raudel en Y presents with acute epigastric pain Epigastric pain Likely due to pancreatitis -Consulted GI, awaiting input - Lipase elevated today, however, clinically patient is doing better. Acute Pancreatitis - based on elevated lipase, unclear if this is the cause of her pain given acute on chronic nature - LR 150 MLS/HR - Ondansetron for nausea Elevated Liver function tests awaiting GI input. patient has had cholecystectomy in the past. Given lack of alcohol history, biliary stone will need to be ruled out. Possible MRCP GERD - continue ranitidine - switch omeprazole to pantoprazole as per formulary Atrial fibrillation - rate controlled with metoprolol (patient reports no longer taking evening dose ) and diltiazem - anticoagulation with apixaban VTE Prophylaxis - apixaban 5mg BID
[2018-03-26] MEDS: ATORVASTATIN 40 MG TAB PO SCH (09:19)
[2018-03-26] MEDS: APIXABAN 2.5 MG TAB PO SCH ×2 (09:20→20:40)
[2018-03-26] MEDS: FLUOXETINE HCL 20 MG CAP PO SCH (09:20)
[2018-03-26] MEDS: CHOLECALCIFEROL 1000 INTER.UNIT TAB PO SCH (09:20)
[2018-03-26] MEDS: NITROFURANTOIN MONOHYDRATE 100 MG CAP PO SCH ×2 (09:20→20:40)
[2018-03-26] MEDS: DILTIAZEM HCL 120 MG EXT REL CAP PO SCH (09:20)
[2018-03-26] MEDS: ZINC SULFATE 220 MG CAP PO SCH (09:20)
[2018-03-26] MEDS: METOPROLOL SUCC 50MG EXT REL TAB PO SCH (09:20)
[2018-03-26] MEDS: MULTIVITAMIN TAB PO SCH (09:20)
[2018-03-26] MEDS: ONDANSETRON INJ 2 MG/ML 2 ML VIAL IV PRN ×2 (11:42→17:49)
--- NOTE | 2018-03-26 14:38 | Gastroenterology Progress Note ---
Progress Note Date of Service: Mar 26, 2018 Subjective Pt evaluation today including: conversation w/ patient, conversation w/ family (), physical exam, chart review, lab review, review of studies, review of inpatient medication list cc f/u pancreattitis HPI Pt states abd pain improved is 5/10 and states does not need IV narcotics. MRCP yesterday pancreatittis but otherwise normal. Urine output good. Review of Systems Respiratory: No shortness of breath Cardiac: No chest pain Medications Current Inpatient Medications Medications (Trade) Dose Ordered Sig/Elliott Route Start Time Stop Time Status Last Admin Dose Admin Ioversol (Optiray 320) 100 ml UD PRN IV 03/24/18 16:45 03/28/18 16:44 Ondansetron HCl (Zofran Inj) 4 mg Q4H PRN IV 03/24/18 19:30 04/23/18 19:29 03/26/18 11:42 4 MG Atorvastatin Calcium (Lipitor Tab) 40 mg DAILY PO 03/25/18 09:00 04/24/18 08:59 03/26/18 09:19 40 MG Diltiazem HCl (TIAzac CAP) 240 mg QAM PO 03/25/18 09:00 04/24/18 08:59 03/26/18 09:20 240 MG Fluoxetine HCl (Prozac Cap) 40 mg QAM PO 03/25/18 09:00 04/24/18 08:59 03/26/18 09:20 40 MG Metoprolol Succinate (Toprol Xl Tab) 200 mg QAM PO 03/25/18 09:00 04/24/18 08:59 03/26/18 09:20 200 MG Multivitamins (Multivitamin Tab) 1 tab QAM PO 03/25/18 09:00 04/24/18 08:59 03/26/18 09:20 1 TAB Oxycodone HCl (Roxicodone Immediate Rel Tab) 5 mg Q6H PRN PO 03/24/18 20:00 04/07/18 19:59 03/26/18 06:00 5 MG Ranitidine HCl (zANTac TAB) 150 mg BID PO 03/24/18 21:00 04/23/18 20:59 03/26/18 07:55 150 MG Zinc Sulfate (Zinc Sulfate Cap) 440 mg QAM PO 03/25/18 09:00 5/24/18 08:59 03/26/18 09:20 440 MG Apixaban (Eliquis Tab) 5 mg BID PO 03/24/18 21:00 04/23/18 20:59 03/26/18 09:20 5 MG Cholecalciferol (Vitamin D Tab) 2,000 inter.unit QAM PO 03/25/18 09:00 04/24/18 08:59 03/26/18 09:20 2,000 INTER.UNIT Pantoprazole Sodium (Protonix Tab) 40 mg BID PO 03/24/18 21:00 04/23/18 20:59 03/26/18 07:55 40 MG Lactated Ringer's 1,000 ml @ 200 mls/hr Q5H IV 03/25/18 15:15 04/24/18 15:14 03/26/18 11:27 200 MLS/HR Nitrofurantoin Macrocrystals (Macrobid Cap) 100 mg BID PO 03/25/18 21:00 03/30/18 20:59 03/26/18 09:20 100 MG Objective Vital Signs Date Time Temp Pulse Resp B/P (MAP) Pulse Ox O2 Delivery O2 Flow Rate FiO2 03/26/18 13:00 98 183/96 (125) 03/26/18 12:00 Room Air 03/26/18 08:00 Room Air 03/26/18 07:26 36.4 97 16 138/84 (102) 97 Room Air 03/26/18 04:19 36.9 84 16 152/98 (116) 91 Room Air 03/26/18 04:00 Room Air 03/26/18 00:20 Room Air 03/25/18 23:46 36.7 81 16 146/82 (103) 91 Room Air 03/25/18 20:01 36.7 71 20 146/85 (105) 95 Room Air 03/25/18 20:00 93 Room Air 03/25/18 16:00 93 Room Air 03/25/18 15:34 36.7 61 18 131/81 (98) 93 Room Air Physical Exam General Appearance: WD/WN, no apparent distress Respiratory/Chest: lungs clear, normal breath sounds Abdomen: normal bowel sounds, non tender, soft, no organomegaly Neurologic/Psych: alert, normal mood/affect, oriented x 3 Skin: normal color Laboratory Results Last 24 Hours Test 03/25/18 15:15 03/26/18 06:24 Urine Color YELLOW Urine Appearance CLOUDY Urine pH 5.0 Urine Specific [place] 1.021 Urine Protein NEG Urine Glucose (UA) NEG Urine Ketones NEG Urine Occult Blood 1+ Urine Nitrite POS Urine Bilirubin NEG Urine Urobilinogen NEG Urine Leukocyte Esterase LARGE Urine WBC (Auto) >30 /hpf Urine RBC (Auto) 0-4 /hpf Urine Hyaline Casts (Auto) 1-5 /lpf Urine Epithelial Cells (Auto) 20-30 /lpf Urine Bacteria (Auto) 3+ Urine Yeast (Auto) White Blood Count 3.01 K/uL Red Blood Count 4.06 M/uL Hemoglobin 11.6 g/dL Hematocrit 36.8 % Mean Corpuscular Volume 90.6 fL Mean Corpuscular Hemoglobin 28.6 pg Mean Corpuscular Hemoglobin Concent 31.5 g/dl Platelet Count 199 K/uL Mean Platelet Volume 8.8 fL Neutrophils (%) (Auto) 62.8 % Lymphocytes (%) (Auto) 25.9 % Monocytes (%) (Auto) 9.0 % Eosinophils (%) (Auto) 2.0 % Basophils (%) (Auto) 0.3 % Neutrophils # (Auto) 1.89 K/uL Lymphocytes # (Auto) 0.78 K/uL Monocytes # (Auto) 0.27 K/uL Eosinophils # (Auto) 0.06 K/uL Basophils # (Auto) 0.01 K/uL RDW Standard Deviation 51.0 fL RDW Coefficient of Variation 15.3 % Immature Granulocyte % (Auto) 0.0 % Immature Granulocyte # (Auto) 0.00 K/uL Sodium Level 140 mmol/L Potassium Level 3.9 mmol/L Chloride Level 109 mmol/L Carbon Dioxide Level 28 mmol/L Anion Gap 3.0 mmol/L Blood Urea Nitrogen 14 mg/dl Creatinine 0.82 mg/dl Est Creatinine Clear Calc Drug Dose 77.6 ml/min Estimated GFR () 87.0 Estimated GFR (Non- 75.1 BUN/Creatinine Ratio 16.8 Random Glucose 83 mg/dl Calcium Level 8.4 mg/dl Total Bilirubin 0.8 mg/dl Direct Bilirubin 0.3 mg/dl Aspartate Amino Transf (AST/SGOT) 72 U/L Alanine Aminotransferase (ALT/SGPT) 111 U/L Alkaline Phosphatase 273 U/L Total Protein 6.3 gm/dl Albumin 2.7 gm/dl Globulin 3.6 gm/dl Albumin/Globulin Ratio 0.8 Lipase 272 U/L Assessment and Plan pancreatits--improved by number with lipase and also clinicallyy epigastric pain from pancreatitis--improved cirrhosis suggestion on CT--no evidence of varices on EGD 06/2017, outpt workup-- discussed with patient and needs outpt f/u for this and to call DR Borjas office on DC to make appt. elevated LFTS--MRCP neg for obstruction--improved n/v--improved urine dark and burning--urine cx pos--defer rx to PCP normocytica anemia--no history of GI bleeding. Advance to low fat diet.
[2018-03-26] MEDS ORDERED: CAPTOPRIL 12.5 MG TAB PO ONE (15:30)
[2018-03-26] MEDS ORDERED: METOPROLOL TARTRATE 100 MG TAB PO STA (17:50)
[2018-03-26] MEDS ORDERED: METOPROLOL TARTRATE 50 MG TAB PO SCH (18:45)
[2018-03-26] MEDS ORDERED: NURSING VERBAL MED ORDER ONE (18:45)
--- NOTE | 2018-03-26 22:49 | Progress Note ---
Subjective Date of Service: Mar 26, 2018. Subjective Pt evaluation today including: conversation w/ patient 67 yo female had vomiting this AM. She vomiting 3 pills. We are unsure exactly what patient vomited. In the afternoon, patient reports that she is feeling better. She has had no nausea or vomiting. She is interested in advancing her diet. Patient also reports her dysuria has improved. Problem List Medical Problems: (1) Abdominal pain, left upper quadrant Status: Acute (2) Chest wall pain Status: Acute (3) Intractable epigastric abdominal pain Status: Acute (4) Pain from gastrostomy tube Status: Acute (5) Pancreatitis Status: Acute (6) Precordial chest pain Status: Acute (7) Substernal chest pain Status: Acute Review of Systems Constitutional: No fever, No chills Eyes: No worsening of vision Respiratory: No cough Cardiac: No chest pain Abdomen: + pain, + nausea, + vomiting, + diarrhea Neurologic: No memory loss Psychiatric: No depression symptoms Heme: No abnormal bleeding/bruising Endo: No fatigue Skin: No rash All Other Systems: Reviewed and Negative All Other Systems: Reviewed and Negative Medications Current Inpatient Medications Medications (Trade) Dose Ordered Sig/Elliott Route Start Time Stop Time Status Last Admin Dose Admin Ioversol (Optiray 320) 100 ml UD PRN IV 03/24/18 16:45 03/28/18 16:44 Ondansetron HCl (Zofran Inj) 4 mg Q4H PRN IV 03/24/18 19:30 04/23/18 19:29 03/27/18 01:01 4 MG Atorvastatin Calcium (Lipitor Tab) 40 mg DAILY PO 03/25/18 09:00 04/24/18 08:59 03/27/18 07:58 40 MG Diltiazem HCl (TIAzac CAP) 240 mg QAM PO 03/25/18 09:00 04/24/18 08:59 03/27/18 08:01 240 MG Fluoxetine HCl (Prozac Cap) 40 mg QAM PO 03/25/18 09:00 04/24/18 08:59 03/27/18 08:00 40 MG Metoprolol Succinate (Toprol Xl Tab) 200 mg QAM PO 03/25/18 09:00 04/24/18 08:59 03/27/18 07:58 200 MG Multivitamins (Multivitamin Tab) 1 tab QAM PO 03/25/18 09:00 04/24/18 08:59 03/27/18 08:00 1 TAB Oxycodone HCl (Roxicodone Immediate Rel Tab) 5 mg Q6H PRN PO 03/24/18 20:00 04/07/18 19:59 03/26/18 06:00 5 MG Ranitidine HCl (zANTac TAB) 150 mg BID PO 03/24/18 21:00 04/23/18 20:59 03/27/18 07:59 150 MG Zinc Sulfate (Zinc Sulfate Cap) 440 mg QAM PO 03/25/18 09:00 04/24/18 08:59 03/27/18 07:59 440 MG Apixaban (Eliquis Tab) 5 mg BID PO 03/24/18 21:00 04/23/18 20:59 03/27/18 07:59 5 MG Cholecalciferol (Vitamin D Tab) 2,000 inter.unit QAM PO 03/25/18 09:00 04/24/18 08:59 03/27/18 07:58 2,000 INTER.UNIT Pantoprazole Sodium (Protonix Tab) 40 mg BID PO 03/24/18 21:00 04/23/18 20:59 03/27/18 07:57 40 MG Lactated Ringer's 1,000 ml @ 125 mls/hr Q8H IV 03/25/18 15:15 04/24/18 15:14 03/27/18 00:53 125 MLS/HR Nitrofurantoin Macrocrystals (Macrobid Cap) 100 mg BID PO 03/25/18 21:00 03/30/18 20:59 03/27/18 08:00 100 MG Trazodone HCl (Desyrel Tab) 25 mg HS PRN PO 03/27/18 05:15 04/26/18 05:14 03/27/18 05:36 25 MG Objective Vital Signs Date Time Temp Pulse Resp B/P (MAP) Pulse Ox O2 Delivery O2 Flow Rate FiO2 03/26/18 20:00 Room Air 03/26/18 18:51 36.8 104 18 138/82 (100) 92 Room Air 03/26/18 18:24 108 128/80 (96) 03/26/18 17:48 151/99 (116) 03/26/18 17:36 157/103 (121) 03/26/18 16:38 171/93 (119) 03/26/18 16:04 99 191/106 (134) 03/26/18 16:00 Room Air 03/26/18 15:26 36.5 105 16 170/122 (138) 93 165/110 (128) 03/26/18 13:00 98 183/96 (125) 03/26/18 12:00 Room Air 03/26/18 08:00 Room Air 03/26/18 07:26 36.4 97 16 138/84 (102) 97 Room Air 03/26/18 04:19 36.9 84 16 152/98 (116) 91 Room Air 03/26/18 04:00 Room Air 03/26/18 00:20 Room Air 03/25/18 23:46 36.7 81 16 146/82 (103) 91 Room Air Physical Exam Comments: General Appearance: WD/WN, no apparent distress Eyes: normal inspection, PERRL ENT: hearing grossly normal, pharynx normal Neck: supple, trachea midline Respiratory/Chest: lungs clear, no respiratory distress Cardiovascular: regular rate, rhythm, no murmur Abdomen: normal bowel sounds, soft, no organomegaly, no pulsatile mass, + tenderness to epigastric region with deep palpation. Extremities: normal range of motion, normal inspection Neurologic/Psych: chief commercial officer II-XII nml as tested, normal mood/affect, oriented x 3 Skin: normal color, warm/dry Laboratory Results Last 24 Hours Test 03/26/18 06:24 White Blood Count 3.01 K/uL Red Blood Count 4.06 M/uL Hemoglobin 11.6 g/dL Hematocrit 36.8 % Mean Corpuscular Volume 90.6 fL Mean Corpuscular Hemoglobin 28.6 pg Mean Corpuscular Hemoglobin Concent 31.5 g/dl Platelet Count 199 K/uL Mean Platelet Volume 8.8 fL Neutrophils (%) (Auto) 62.8 % Lymphocytes (%) (Auto) 25.9 % Monocytes (%) (Auto) 9.0 % Eosinophils (%) (Auto) 2.0 % Basophils (%) (Auto) 0.3 % Neutrophils # (Auto) 1.89 K/uL Lymphocytes # (Auto) 0.78 K/uL Monocytes # (Auto) 0.27 K/uL Eosinophils # (Auto) 0.06 K/uL Basophils # (Auto) 0.01 K/uL RDW Standard Deviation 51.0 fL RDW Coefficient of Variation 15.3 % Immature Granulocyte % (Auto) 0.0 % Immature Granulocyte # (Auto) 0.00 K/uL Sodium Level 140 mmol/L Potassium Level 3.9 mmol/L Chloride Level 109 mmol/L Carbon Dioxide Level 28 mmol/L Anion Gap 3.0 mmol/L Blood Urea Nitrogen 14 mg/dl Creatinine 0.82 mg/dl Est Creatinine Clear Calc Drug Dose 77.6 ml/min Estimated GFR () 87.0 Estimated GFR (Non- 75.1 BUN/Creatinine Ratio 16.8 Random Glucose 83 mg/dl Calcium Level 8.4 mg/dl Total Bilirubin 0.8 mg/dl Direct Bilirubin 0.3 mg/dl Aspartate Amino Transf (AST/SGOT) 72 U/L Alanine Aminotransferase (ALT/SGPT) 111 U/L Alkaline Phosphatase 273 U/L Total Protein 6.3 gm/dl Albumin 2.7 gm/dl Globulin 3.6 gm/dl Albumin/Globulin Ratio 0.8 Lipase 272 U/L Assessment and Plan 67 year old female with complicated GI history including gastric raudel en Y presents with acute epigastric pain Epigastric pain Likely due to pancreatitis -Consulted GI, awaiting input - Lipase normalized today. MRCP was negative. UTI Present on admission Added Nitrofurantoin yesterday. Patient will be treated for 5 days. Acute Pancreatitis - based on elevated lipase, unclear if this is the cause of her pain given acute on chronic nature - LR 150 MLS/HR - Ondansetron for nausea Elevated Liver function tests awaiting GI input. patient has had cholecystectomy in the past. MRCP ruled out biliary stone GERD - continue ranitidine - switch omeprazole to pantoprazole as per formulary Atrial fibrillation - rate controlled with metoprolol (patient reports no longer taking evening dose ) and diltiazem - anticoagulation with apixaban. Heart rate is elevated today. Will give extra dose of metoprolol this PM. will monitor. VTE Prophylaxis - apixaban 5mg BID Continued [facility] stay due to: abnormal vital signs, other Discharge planning: home
[2018-03-27] VITALS (9 sets, daily range): BP systolic 141–182; BP diastolic 88–121; PULSE 66–108; TEMP 36.4–37.2; O2SAT 89–95
[2018-03-27] MEDS: LACTATED RINGER'S 1000ML 1,000 ML IV SCH ×3 (00:53→17:07)
[2018-03-27] MEDS ORDERED: NURSING VERBAL MED ORDER ONE ×3 (01:00→21:45)
[2018-03-27] MEDS: ONDANSETRON INJ 2 MG/ML 2 ML VIAL IV PRN ×2 (01:01→08:56)
[2018-03-27] MEDS ORDERED: LORAZEPAM INJ 0.5 MG in SYRINGE 0.75 ML IV ONE (01:15)
[2018-03-27] MEDS ORDERED: TRAZODONE HCL 50 MG TAB PO PRN (05:15)
[2018-03-27 07:50] LABS: BASO % 0.1 %; BASO ABS # 0.01 K/uL (0-0.2); EOS % 0.7 %; EOS ABS # 0.05 K/uL (0-0.5); HEMATOCRIT 35.7 % (37-47); HEMOGLOBIN 11.2 g/dL (12.0-16.0); IG# 0.01 K/uL (0.00-0.02); LYMPH ABS # 0.47 K/uL (1.2-3.4); MEAN CELL VOLUME 90.6 fL (80-100); MEAN CORPUSCULAR HEMOGLOBIN 28.4 pg (25-34); MEAN CORPUSCULAR HGB CONC 31.4 g/dl (32-36); MEAN PLATELET VOLUME 8.7 fL (7.4-10.4); MONO % 6.7 %; MONO ABS # 0.45 K/uL (0.11-0.59); NEUT % 85.4 %; NEUT ABS # 5.77 K/uL (1.4-6.5); PLATELET COUNT 230 K/uL (130-400); RED CELL DISTRIBUTION WIDTH CV 15.2 % (11.5-14.5); RED CELL DISTRIBUTION WIDTH SD 50.4 fL (36.4-46.3); WHITE BLOOD COUNT 6.76 K/uL (4.8-10.8)
[2018-03-27] MEDS: PANTOprazole SOD 40 MG TAB PO SCH ×2 (07:57→21:05)
[2018-03-27] MEDS: METOPROLOL SUCC 50MG EXT REL TAB PO SCH (07:58)
[2018-03-27] MEDS: ATORVASTATIN 40 MG TAB PO SCH (07:58)
[2018-03-27] MEDS: CHOLECALCIFEROL 1000 INTER.UNIT TAB PO SCH (07:58)
[2018-03-27] MEDS: RANITIDINE HCL 150 MG TAB PO SCH ×2 (07:59→21:05)
[2018-03-27] MEDS: APIXABAN 2.5 MG TAB PO SCH ×2 (07:59→21:05)
[2018-03-27] MEDS: ZINC SULFATE 220 MG CAP PO SCH (07:59)
[2018-03-27] MEDS: NITROFURANTOIN MONOHYDRATE 100 MG CAP PO SCH ×2 (08:00→21:05)
[2018-03-27] MEDS: MULTIVITAMIN TAB PO SCH (08:00)
[2018-03-27] MEDS: FLUOXETINE HCL 20 MG CAP PO SCH (08:00)
[2018-03-27] MEDS: DILTIAZEM HCL 120 MG EXT REL CAP PO SCH (08:01)
[2018-03-27 08:27] LABS: ALBUMIN 2.8 gm/dl (3.4-5.0); CALCIUM 8.1 mg/dl (8.5-10.1); CREATININE 0.94 mg/dl (0.60-1.20); POTASSIUM 3.8 mmol/L (3.5-5.1); TOTAL PROTEIN 6.5 gm/dl (6.4-8.2)
--- NOTE | 2018-03-27 12:02 | Gastroenterology Progress Note ---
Progress Note Date of Service: Mar 27, 2018 Subjective Pt evaluation today including: conversation w/ patient, physical exam, chart review, lab review, review of studies, review of inpatient medication list cc f/u pancreatitsi HPI Some SOB last night now none. Abd pain improved now . Is tolerting solid food but gets nauseated requiring meds. She states gets nausea at home also. Review of Systems Respiratory: No shortness of breath Cardiac: No chest pain Medications Current Inpatient Medications Medications (Trade) Dose Ordered Sig/Elliott Route Start Time Stop Time Status Last Admin Dose Admin Ioversol (Optiray 320) 100 ml UD PRN IV 03/24/18 16:45 03/28/18 16:44 Ondansetron HCl (Zofran Inj) 4 mg Q4H PRN IV 03/24/18 19:30 04/23/18 19:29 03/27/18 08:56 4 MG Atorvastatin Calcium (Lipitor Tab) 40 mg DAILY PO 03/25/18 09:00 04/24/18 08:59 03/27/18 07:58 40 MG Diltiazem HCl (TIAzac CAP) 240 mg QAM PO 03/25/18 09:00 04/24/18 08:59 03/27/18 08:01 240 MG Fluoxetine HCl (Prozac Cap) 40 mg QAM PO 03/25/18 09:00 04/24/18 08:59 03/27/18 08:00 40 MG Metoprolol Succinate (Toprol Xl Tab) 200 mg QAM PO 03/25/18 09:00 04/24/18 08:59 03/27/18 07:58 200 MG Multivitamins (Multivitamin Tab) 1 tab QAM PO 03/25/18 09:00 04/24/18 08:59 03/27/18 08:00 1 TAB Oxycodone HCl (Roxicodone Immediate Rel Tab) 5 mg Q6H PRN PO 03/24/18 20:00 04/07/18 19:59 03/26/18 06:00 5 MG Ranitidine HCl (zANTac TAB) 150 mg BID PO 03/24/18 21:00 04/23/18 20:59 03/27/18 07:59 150 MG Zinc Sulfate (Zinc Sulfate Cap) 440 mg QAM PO 03/25/18 09:00 04/24/18 08:59 03/27/18 07:59 440 MG Apixaban (Eliquis Tab) 5 mg BID PO 03/24/18 21:00 04/23/18 20:59 03/27/18 07:59 5 MG Cholecalciferol (Vitamin D Tab) 2,000 inter.unit QAM PO 03/25/18 09:00 04/24/18 08:59 03/27/18 07:58 2,000 INTER.UNIT Pantoprazole Sodium (Protonix Tab) 40 mg BID PO 03/24/18 21:00 04/23/18 20:59 03/27/18 07:57 40 MG Lactated Ringer's 1,000 ml @ 125 mls/hr Q8H IV 03/25/18 15:15 04/24/18 15:14 03/27/18 09:46 125 MLS/HR Nitrofurantoin Macrocrystals (Macrobid Cap) 100 mg BID PO 03/25/18 21:00 03/30/18 20:59 03/27/18 08:00 100 MG Trazodone HCl (Desyrel Tab) 25 mg HS PRN PO 03/27/18 05:15 04/26/18 05:14 03/27/18 05:36 25 MG Objective Vital Signs Date Time Temp Pulse Resp B/P (MAP) Pulse Ox O2 Delivery O2 Flow Rate FiO2 03/27/18 08:00 95 Nasal Cannula 2.0 03/27/18 07:07 36.9 103 18 168/103 (124) 95 03/27/18 04:28 36.6 108 17 141/112 (122) 91 Nasal Cannula 2.0 03/27/18 04:00 Nasal Cannula 2.0 03/27/18 01:24 36.7 84 18 182/118 (139) 90 Room Air 03/27/18 00:00 Room Air 03/26/18 20:00 Room Air 03/26/18 18:51 36.8 104 18 138/82 (100) 92 Room Air 03/26/18 18:24 108 128/80 (96) 03/26/18 17:48 151/99 (116) 03/26/18 17:36 157/103 (121) 03/26/18 16:38 171/93 (119) 03/26/18 16:04 99 191/106 (134) 03/26/18 16:00 Room Air 03/26/18 15:26 36.5 105 16 170/122 (138) 93 165/110 (128) 03/26/18 13:00 98 183/96 (125) 03/26/18 12:00 Room Air Physical Exam General Appearance: WD/WN, no apparent distress Respiratory/Chest: lungs clear, no respiratory distress Cardiovascular: regular rate, rhythm, no murmur Abdomen: normal bowel sounds, non tender, soft, no organomegaly Neurologic/Psych: alert, normal mood/affect, oriented x 3 Laboratory Results Last 24 Hours Test 03/27/18 07:20 White Blood Count 6.76 K/uL Red Blood Count 3.94 M/uL Hemoglobin 11.2 g/dL Hematocrit 35.7 % Mean Corpuscular Volume 90.6 fL Mean Corpuscular Hemoglobin 28.4 pg Mean Corpuscular Hemoglobin Concent 31.4 g/dl Platelet Count 230 K/uL Mean Platelet Volume 8.7 fL Neutrophils (%) (Auto) 85.4 % Lymphocytes (%) (Auto) 7.0 % Monocytes (%) (Auto) 6.7 % Eosinophils (%) (Auto) 0.7 % Basophils (%) (Auto) 0.1 % Neutrophils # (Auto) 5.77 K/uL Lymphocytes # (Auto) 0.47 K/uL Monocytes # (Auto) 0.45 K/uL Eosinophils # (Auto) 0.05 K/uL Basophils # (Auto) 0.01 K/uL RDW Standard Deviation 50.4 fL RDW Coefficient of Variation 15.2 % Immature Granulocyte % (Auto) 0.1 % Immature Granulocyte # (Auto) 0.01 K/uL Sodium Level 140 mmol/L Potassium Level 3.8 mmol/L Chloride Level 107 mmol/L Carbon Dioxide Level 28 mmol/L Anion Gap 6.0 mmol/L Blood Urea Nitrogen 12 mg/dl Creatinine 0.94 mg/dl Est Creatinine Clear Calc Drug Dose 68.4 ml/min Estimated GFR () 73.8 Estimated GFR (Non- 63.7 BUN/Creatinine Ratio 12.7 Random Glucose 98 mg/dl Calcium Level 8.1 mg/dl Total Bilirubin 1.0 mg/dl Direct Bilirubin 0.4 mg/dl Aspartate Amino Transf (AST/SGOT) 37 U/L Alanine Aminotransferase (ALT/SGPT) 79 U/L Alkaline Phosphatase 248 U/L Total Protein 6.5 gm/dl Albumin 2.8 gm/dl Globulin 3.7 gm/dl Albumin/Globulin Ratio 0.8 Lipase 174 U/L Assessment and Plan pancreatits--improved epigastric pain from pancreatitis--improved cirrhosis suggestion on CT--no evidence of varices on EGD 06/2017, outpt workup-- discussed with patient and needs outpt f/u for this and to call DR Borjas office on DC to make appt. elevated LFTS--MRCP neg for obstruction--improved n/v--improved urine dark and burning--urine cx pos--defer rx to PCP normocytica anemia--no history of GI bleeding-overall stable n/v currently and as outpt. Discussed doing EGD for n/v and she agrees so will be set up for tomorrow. I am going off service tomorrow 03/28/[address] Murphy is on schedule to be assuming GI care then.
[2018-03-27] MEDS ORDERED: ALBUT/IPRATROP 3MG/0.5MG NEB 3 ML VIAL INH PRN (23:00)
[2018-03-27] MEDS ORDERED: HydrALAZINE 10 MG TAB PO PRN (23:00)
--- NOTE | 2018-03-27 23:08 | Progress Note ---
Subjective Date of Service: Mar 27, 2018. Subjective Pt evaluation today including: conversation w/ patient, physical exam Patient reports feelign better today. Patient still has some nausea today. But pain is about 3/10. Problem List Medical Problems: (1) Abdominal pain, left upper quadrant Status: Acute (2) Chest wall pain Status: Acute (3) Intractable epigastric abdominal pain Status: Acute (4) Pain from gastrostomy tube Status: Acute (5) Pancreatitis Status: Acute (6) Precordial chest pain Status: Acute (7) Substernal chest pain Status: Acute Review of Systems Constitutional: No fever, No chills Eyes: No worsening of vision Respiratory: No cough Cardiac: No chest pain Abdomen: + pain, + nausea, Neurologic: No memory loss Psychiatric: No depression symptoms Heme: No abnormal bleeding/bruising Endo: No fatigue Skin: No rash Objective Vital Signs Date Time Temp Pulse Resp B/P (MAP) Pulse Ox O2 Delivery O2 Flow Rate FiO2 03/27/18 20:21 36.4 78 16 166/121 (136) 90 Room Air 03/27/18 20:00 Room Air 03/27/18 16:00 Room Air 03/27/18 15:19 37.2 66 20 150/88 (108) 89 Room Air 03/27/18 12:00 95 Nasal Cannula 03/27/18 11:47 36.7 99 18 147/95 (112) 91 Room Air 03/27/18 08:00 95 Nasal Cannula 2.0 03/27/18 07:07 36.9 103 18 168/103 (124) 95 03/27/18 04:28 36.6 108 17 141/112 (122) 91 Nasal Cannula 2.0 03/27/18 04:00 Nasal Cannula 2.0 03/27/18 01:24 36.7 84 18 182/118 (139) 90 Room Air 03/27/18 00:00 Room Air Physical Exam Comments: General Appearance: WD/WN, no apparent distress Eyes: normal inspection, PERRL ENT: hearing grossly normal, pharynx normal Neck: supple, trachea midline Respiratory/Chest: lungs clear, no respiratory distress Cardiovascular: regular rate, rhythm, no murmur Abdomen: normal bowel sounds, soft, no organomegaly, no pulsatile mass, + tenderness to epigastric region with deep palpation. Extremities: normal range of motion, normal inspection Neurologic/Psych: digital recruiter II-XII nml as tested, normal mood/affect, oriented x 3 Skin: normal color, warm/dry Laboratory Results Last 24 Hours Test 03/27/18 07:20 White Blood Count 6.76 K/uL Red Blood Count 3.94 M/uL Hemoglobin 11.2 g/dL Hematocrit 35.7 % Mean Corpuscular Volume 90.6 fL Mean Corpuscular Hemoglobin 28.4 pg Mean Corpuscular Hemoglobin Concent 31.4 g/dl Platelet Count 230 K/uL Mean Platelet Volume 8.7 fL Neutrophils (%) (Auto) 85.4 % Lymphocytes (%) (Auto) 7.0 % Monocytes (%) (Auto) 6.7 % Eosinophils (%) (Auto) 0.7 % Basophils (%) (Auto) 0.1 % Neutrophils # (Auto) 5.77 K/uL Lymphocytes # (Auto) 0.47 K/uL Monocytes # (Auto) 0.45 K/uL Eosinophils # (Auto) 0.05 K/uL Basophils # (Auto) 0.01 K/uL RDW Standard Deviation 50.4 fL RDW Coefficient of Variation 15.2 % Immature Granulocyte % (Auto) 0.1 % Immature Granulocyte # (Auto) 0.01 K/uL Sodium Level 140 mmol/L Potassium Level 3.8 mmol/L Chloride Level 107 mmol/L Carbon Dioxide Level 28 mmol/L Anion Gap 6.0 mmol/L Blood Urea Nitrogen 12 mg/dl Creatinine 0.94 mg/dl Est Creatinine Clear Calc Drug Dose 68.4 ml/min Estimated GFR () 73.8 Estimated GFR (Non- 63.7 BUN/Creatinine Ratio 12.7 Random Glucose 98 mg/dl Calcium Level 8.1 mg/dl Total Bilirubin 1.0 mg/dl Direct Bilirubin 0.4 mg/dl Aspartate Amino Transf (AST/SGOT) 37 U/L Alanine Aminotransferase (ALT/SGPT) 79 U/L Alkaline Phosphatase 248 U/L Total Protein 6.5 gm/dl Albumin 2.8 gm/dl Globulin 3.7 gm/dl Albumin/Globulin Ratio 0.8 Lipase 174 U/L Assessment and Plan 67 year old female with complicated GI history including gastric raudel en Y presents with acute epigastric pain Epigastric pain Likely due to pancreatitis -Consulted GI - Lipase normalized today. MRCP was negative. will do EGD in AM. UTI Present on admission Added Nitrofurantoin yesterday. Patient will be treated for 5 days. Acute Pancreatitis - based on elevated lipase, unclear if this is the cause of her pain given acute on chronic nature - Appears to be improving. -still on IV fluids. -No signs of pulmonary edema. - Patient still having abd. pain, but is milder Elevated Liver function tests patient has had cholecystectomy in the past. MRCP ruled out biliary stone GERD - continue ranitidine - switch omeprazole to pantoprazole as per formulary Atrial fibrillation - rate controlled with metoprolol (patient reports no longer taking evening dose ) and diltiazem - anticoagulation with apixaban. will monitor. better controlled today. VTE Prophylaxis - apixaban 5mg BID Continued [facility] stay due to: abnormal vital signs, other Discharge planning: home
[2018-03-27] MEDS ORDERED: FUROSEMIDE INJ 20 MG in SYRINGE 0 ML IV ONE (23:15)
--- NOTE | 2018-03-27 23:37 | Progress Note ---
Progress Note Date of Service Mar 27, 2018. Progress Note I received a page around [id number] about patient having chest discomfort. Upon assessment, patient denied chest pain and reported SOB, wheezing. Upon assessment , pulse ox 92 % she had left sided crackles, mild wheeze and weight has gone up 2 kg since yesterday. I ordered 20 mg of Lasix, ordered a CXR., held fluids. Given wheezing on exam, so i ordered prn duoneb
[2018-03-27] MEDS ORDERED: FUROSEMIDE 40 MG/4 ML VIAL IV ONE (23:45)
[2018-03-28] VITALS (12 sets, daily range): BP systolic 108–180; BP diastolic 69–136; PULSE 75–120; TEMP 36.6–37; O2SAT 90–97
--- NOTE | 2018-03-28 06:42 | DIAGNOSTIC IMAGING REPORT ---
CHEST ONE VIEW PORTABLE HISTORY: 67 years-old Female sob acute shortness of breath COMPARISON: Chest radiograph 03/24/2018 TECHNIQUE: Portable AP view of the chest FINDINGS: Cardiac silhouette is again enlarged, unchanged. There is no pneumothorax. Interval development of mild pulmonary edema with small right and trace left pleural effusions and hazy perihilar and bibasilar opacities. Bones of the chest appear grossly intact. Telemetry leads overlie the chest. IMPRESSION: 1. Cardiomegaly with interval development of mild pulmonary edema with small right and trace left pleural effusions 2. Right greater than left bibasilar opacities favor atelectasis. Superimposed pneumonia would be difficult to exclude. The above report was generated using voice recognition software. It may contain grammatical, syntax or spelling errors. Electronically signed by: Merlin Gresham M.D. 03/28/2018 6:41 AM Dictated Date/Time: 03/28/2018 6:39 AM
[2018-03-28 06:59] LABS: BASO % 0.2 %; BASO ABS # 0.01 K/uL (0-0.2); EOS % 0.7 %; EOS ABS # 0.04 K/uL (0-0.5); HEMATOCRIT 34.8 % (37-47); HEMOGLOBIN 11.1 g/dL (12.0-16.0); IG# 0.01 K/uL (0.00-0.02); LYMPH % 14.3 %; LYMPH ABS # 0.78 K/uL (1.2-3.4); MEAN CELL VOLUME 89.5 fL (80-100); MEAN CORPUSCULAR HEMOGLOBIN 28.5 pg (25-34); MEAN CORPUSCULAR HGB CONC 31.9 g/dl (32-36); MONO % 8.6 %; MONO ABS # 0.47 K/uL (0.11-0.59); NEUT ABS # 4.13 K/uL (1.4-6.5); PLATELET COUNT 245 K/uL (130-400); RED CELL DISTRIBUTION WIDTH CV 15.3 % (11.5-14.5); RED CELL DISTRIBUTION WIDTH SD 49.6 fL (36.4-46.3); WHITE BLOOD COUNT 5.44 K/uL (4.8-10.8)
[2018-03-28] MEDS: ALBUT/IPRATROP 3MG/0.5MG NEB 3 ML VIAL INH SCH ×4 (07:23→18:46)
[2018-03-28 07:25] LABS: CALCIUM 8.1 mg/dl (8.5-10.1); POTASSIUM 3.6 mmol/L (3.5-5.1)
[2018-03-28 07:28] LABS: TOTAL PROTEIN 6.9 gm/dl (6.4-8.2)
[2018-03-28] MEDS: CHOLECALCIFEROL 1000 INTER.UNIT TAB PO SCH (07:39)
[2018-03-28] MEDS: ZINC SULFATE 220 MG CAP PO SCH (07:39)
[2018-03-28] MEDS: PANTOprazole SOD 40 MG TAB PO SCH ×2 (07:40→21:04)
[2018-03-28] MEDS: NITROFURANTOIN MONOHYDRATE 100 MG CAP PO SCH ×2 (07:40→21:04)
[2018-03-28] MEDS: DILTIAZEM HCL 120 MG EXT REL CAP PO SCH (07:40)
[2018-03-28] MEDS: RANITIDINE HCL 150 MG TAB PO SCH ×2 (07:40→21:04)
[2018-03-28] MEDS: METOPROLOL SUCC 50MG EXT REL TAB PO SCH (07:40)
[2018-03-28] MEDS: APIXABAN 2.5 MG TAB PO SCH ×2 (07:40→21:04)
[2018-03-28] MEDS: FLUOXETINE HCL 20 MG CAP PO SCH (07:40)
[2018-03-28] MEDS: ATORVASTATIN 40 MG TAB PO SCH (07:41)
[2018-03-28] MEDS: MULTIVITAMIN TAB PO SCH (07:41)
[2018-03-28] MEDS: ONDANSETRON INJ 2 MG/ML 2 ML VIAL IV PRN (09:27)
[2018-03-28] MEDS ORDERED: FUROSEMIDE INJ 40 MG in SYRINGE 0 ML IV ONE (12:15)
--- NOTE | 2018-03-28 12:16 | Clinical Documentation Query ---
CLINICAL DOCUMENTATION QUERY Dr. PINO, In your clinical opinion is this patient being managed for: ( ) Acute pulmonary edema ( ) Not Agree ( ) Other explanation of clinical findings (Please Explain. If no explanation given, this would be considered a no response.) ( ) Unable to determine ( ) Need to Discuss (Please call CDS via extension or qliq. If no interaction occurs this is considered a no response.) The medical record reflects the following clinical findings, treatment, and risk factors. Clinical Indicators: 67 yo female who developed dyspnea and wheezing. CXR showed mild pulmonary edema with small right and trace left pleural effusions, Per I/O had 7L + fluid balance prior to lasix administration. Resident noted pt with L sided crackles and wt gain of 2 kg since prior day Treatment: IV lasix, IV hydralazine, IV fluids d/c, O2 support, duonebs, I/O, EKG Risk Factors: age, A fib, HTN, IV fluid intake Please clarify and document your clinical opinion in the progress notes and discharge summary. Terms such as "probable", "suspected", "likely", "questionable", "possible", or "still to be ruled out" are acceptable. IF IN AGREEMENT, YOU MUST DOCUMENT ABOVE DIAGNOSTIC STATEMENT IN DAILY PROGRESS NOTES AND DISCHARGE SUMMARY. This document is not part of the patient's record. Thank You, Trupti Jackman RN [phone]
--- NOTE | 2018-03-28 17:19 | PROGRESS NOTE ---
DATE: 03/28/2018 REASON FOR EVALUATION: Pancreatitis. HISTORY: The patient has mesenteric fibrosis and was admitted with pancreatitis. The patient has been placed on bowel rest and is improving. She continued to have some epigastric pain and was scheduled for an EGD today, but overnight went into rapid AFib and had some congestive heart failure with shortness of breath. So the EGD today was canceled. Currently, her blood pressure is 128/69, pulse 81, temperature is 37, lipase is 174, which is normal. Liver tests show bilirubin of 1.3, alkaline phosphatase 232, AST 27, ALT of 64. White count is 5.44, hemoglobin 11.1 which is stable, platelets 245. Imaging showed some fat stranding around the pancreas, the central mesentery from her abdominal fibrosis. The MRCP showed no pancreatic ductal dilation. Gallbladder was surgically absent. Common bile duct measures 6.7 mm which is normal. There were no filling defects. There was some mild peripancreatic edema consistent with pancreatitis. The patient did eat solid food this afternoon. Abdomen has midline scar. There is some mild diffuse tenderness throughout the abdomen. IMPRESSION: The patient has pancreatitis of unclear etiology. She is improving and is able to tolerate p.o. She did have rapid AFib and a little bit of congestive heart failure overnight. So we plan on watching her overnight and if she is improved, she can go home tomorrow and follow up as an outpatient. EGD can be done as an outpatient if needed.
--- NOTE | 2018-03-28 22:05 | Progress Note ---
Subjective Date of Service: Mar 28, 2018. Subjective Pt evaluation today including: conversation w/ patient, physical exam Patient had a. fib overnight and developed shortness of breath. Fluid was stopped. Patient received a dose of 20 mg of IV lasix. Patient ordered an additional 40mg IV of lasix. Patient reports that the past 2 nights, she has had shortness of breath. Patient reports her abdominal pain is mild. Patient denies any chest pain, nausea, vomiting today. Problem List Medical Problems: (1) Abdominal pain, left upper quadrant Status: Acute (2) Chest wall pain Status: Acute (3) Intractable epigastric abdominal pain Status: Acute (4) Pain from gastrostomy tube Status: Acute (5) Pancreatitis Status: Acute (6) Precordial chest pain Status: Acute (7) Substernal chest pain Status: Acute Review of Systems Constitutional: No fever, No chills Eyes: No worsening of vision Respiratory: No cough Cardiac: No chest pain Abdomen: + pain, + nausea, Neurologic: No memory loss Psychiatric: No depression symptoms Heme: No abnormal bleeding/bruising Endo: No fatigue Skin: No rash All Other Systems: Reviewed and Negative Medications Current Inpatient Medications Medications (Trade) Dose Ordered Sig/Elliott Route Start Time Stop Time Status Last Admin Dose Admin Ondansetron HCl (Zofran Inj) 4 mg Q4H PRN IV 03/24/18 19:30 04/23/18 19:29 03/28/18 09:27 4 MG Atorvastatin Calcium (Lipitor Tab) 40 mg DAILY PO 03/25/18 09:00 04/24/18 08:59 03/28/18 07:41 40 MG Diltiazem HCl (TIAzac CAP) 240 mg QAM PO 03/25/18 09:00 04/24/18 08:59 03/28/18 07:40 240 MG Fluoxetine HCl (Prozac Cap) 40 mg QAM PO 03/25/18 09:00 04/24/18 08:59 03/28/18 07:40 40 MG Metoprolol Succinate (Toprol Xl Tab) 200 mg QAM PO 03/25/18 09:00 04/24/18 08:59 03/28/18 07:40 200 MG Multivitamins (Multivitamin Tab) 1 tab QAM PO 03/25/18 09:00 04/24/18 08:59 03/28/18 07:41 1 TAB Oxycodone HCl (Roxicodone Immediate Rel Tab) 5 mg Q6H PRN PO 03/24/18 20:00 04/07/18 19:59 03/26/18 06:00 5 MG Ranitidine HCl (zANTac TAB) 150 mg BID PO 03/24/18 21:00 04/23/18 20:59 03/28/18 21:04 150 MG Zinc Sulfate (Zinc Sulfate Cap) 440 mg QAM PO 03/25/18 09:00 04/24/18 08:59 03/28/18 07:39 440 MG Apixaban (Eliquis Tab) 5 mg BID PO 03/24/18 21:00 04/23/18 20:59 03/28/18 21:04 5 MG Cholecalciferol (Vitamin D Tab) 2,000 inter.unit QAM PO 03/25/18 09:00 04/24/18 08:59 03/28/18 07:39 2,000 INTER.UNIT Pantoprazole Sodium (Protonix Tab) 40 mg BID PO 03/24/18 21:00 04/23/18 20:59 03/28/18 21:04 40 MG Lactated Ringer's 1,000 ml @ 125 mls/hr Q8H IV 03/25/18 15:15 04/24/18 15:14 Future Hold 03/27/18 17:07 125 MLS/HR Nitrofurantoin Macrocrystals (Macrobid Cap) 100 mg BID PO 03/25/18 21:00 03/30/18 20:59 03/28/18 21:04 100 MG Trazodone HCl (Desyrel Tab) 25 mg HS PRN PO 03/27/18 05:15 04/26/18 05:14 03/27/18 05:36 25 MG Albuterol/ Ipratropium (Duoneb) 3 ml QIDR INH 03/28/18 08:00 04/27/18 07:59 03/28/18 18:46 3 ML Albuterol/ Ipratropium (Duoneb) 3 ml Q2H PRN INH 03/27/18 23:00 04/26/18 22:59 03/27/18 23:06 3 ML Hydralazine HCl (Apresoline Tab) 10 mg Q6H PRN PO 03/27/18 23:00 04/26/18 22:59 03/28/18 00:16 10 MG Objective Vital Signs Date Time Temp Pulse Resp B/P (MAP) Pulse Ox O2 Delivery O2 Flow Rate FiO2 03/28/18 20:13 36.6 92 18 140/81 (100) 91 Room Air 03/28/18 18:48 86 16 90 Room Air 03/28/18 16:00 Room Air 03/28/18 15:06 75 16 90 Room Air 03/28/18 14:54 37.0 81 16 128/69 (88) 90 Room Air 03/28/18 12:00 Room Air 03/28/18 11:32 36.9 99 20 155/84 (107) 95 03/28/18 11:08 92 16 96 Nasal Cannula 2.0 03/28/18 08:15 Room Air 03/28/18 07:34 36.8 110 20 177/109 (131) 96 Nasal Cannula 3.0 03/28/18 07:23 100 16 97 Nasal Cannula 2.0 03/28/18 04:39 37.0 120 18 169/106 (127) 94 Nasal Cannula 2.0 03/28/18 04:00 Nasal Cannula 3.0 03/28/18 01:30 36.8 110 22 108/69 (82) 91 Room Air 03/28/18 00:28 36.9 104 20 180/136 (151) 94 Nasal Cannula 3.0 03/28/18 00:00 Nasal Cannula 3.0 03/27/18 23:08 89 16 91 Nasal Cannula 2.0 Physical Exam Comments: General Appearance: WD/WN, no apparent distress Eyes: normal inspection, PERRL ENT: hearing grossly normal, pharynx normal Neck: supple, trachea midline Respiratory/Chest: lungs clear, no respiratory distress Cardiovascular: regular rate, rhythm, no murmur Abdomen: normal bowel sounds, soft, no organomegaly, no pulsatile mass, + tenderness to epigastric region with deep palpation. Extremities: normal range of motion, normal inspection Neurologic/Psych: party director II-XII nml as tested, normal mood/affect, oriented x 3 Skin: normal color, warm/dry Laboratory Results Last 24 Hours Test 03/28/18 06:13 White Blood Count 5.44 K/uL Red Blood Count 3.89 M/uL Hemoglobin 11.1 g/dL Hematocrit 34.8 % Mean Corpuscular Volume 89.5 fL Mean Corpuscular Hemoglobin 28.5 pg Mean Corpuscular Hemoglobin Concent 31.9 g/dl Platelet Count 245 K/uL Mean Platelet Volume 9.0 fL Neutrophils (%) (Auto) 76.0 % Lymphocytes (%) (Auto) 14.3 % Monocytes (%) (Auto) 8.6 % Eosinophils (%) (Auto) 0.7 % Basophils (%) (Auto) 0.2 % Neutrophils # (Auto) 4.13 K/uL Lymphocytes # (Auto) 0.78 K/uL Monocytes # (Auto) 0.47 K/uL Eosinophils # (Auto) 0.04 K/uL Basophils # (Auto) 0.01 K/uL RDW Standard Deviation 49.6 fL RDW Coefficient of Variation 15.3 % Immature Granulocyte % (Auto) 0.2 % Immature Granulocyte # (Auto) 0.01 K/uL Sodium Level 140 mmol/L Potassium Level 3.6 mmol/L Chloride Level 106 mmol/L Carbon Dioxide Level 30 mmol/L Anion Gap 4.0 mmol/L Blood Urea Nitrogen 16 mg/dl Creatinine 1.00 mg/dl Est Creatinine Clear Calc Drug Dose 64.5 ml/min Estimated GFR () 68.5 Estimated GFR (Non- 59.1 BUN/Creatinine Ratio 15.8 Random Glucose 95 mg/dl Calcium Level 8.1 mg/dl Total Bilirubin 1.3 mg/dl Aspartate Amino Transf (AST/SGOT) 27 U/L Alanine Aminotransferase (ALT/SGPT) 64 U/L Alkaline Phosphatase 232 U/L Total Protein 6.9 gm/dl Albumin 3.0 gm/dl Globulin 3.9 gm/dl Albumin/Globulin Ratio 0.8 Assessment and Plan 67 year old female with complicated GI history including gastric raudel en Y presents with acute epigastric pain Pulmonary edema Likely precipatated by fluid patient was receiving for her pancreatitis Patient had a. fib overnight and developed shortness of breath. IVF was stopped. Patient received a dose of 20 mg of IV lasix. Patient ordered an additional 40mg IV of lasix. WILL MONITOR Is and Os. She is currently positive 6 liters. At this time will hold off echo cardiogram as this is likely iatrogenic. Epigastric pain Likely due to pancreatitis -Consulted GI - Lipase normalized today. MRCP was negative. EGD postponed due to a. fib and pulmonary edema. will f/u as outpatient. UTI Present on admission Continue nitrofurantoin Patient will be treated for 5 days. Acute Pancreatitis - based on elevated lipase, unclear if this is the cause of her pain given acute on chronic nature - Appears to be improving. -still on IV fluids. -No signs of pulmonary edema. - Patient still having abd. pain, but is milder Elevated Liver function tests patient has had cholecystectomy in the past. MRCP ruled out biliary stone GERD - continue ranitidine - switch omeprazole to pantoprazole as per formulary Atrial fibrillation - rate controlled with metoprolol (patient reports no longer taking evening dose ) and diltiazem - anticoagulation with apixaban. will monitor. better controlled today. Episodes of elevated hr coincide with albuterol neb. VTE Prophylaxis - apixaban 5mg BID Continued [facility] stay due to: abnormal vital signs, other Discharge planning: home
[2018-03-29 04:55] VITALS: BP 170/136; PULSE 91; TEMP 36.9; O2SAT 97
[2018-03-29 06:10] LABS: HEMATOCRIT 34.2 % (37-47); HEMOGLOBIN 10.6 g/dL (12.0-16.0); MEAN CELL VOLUME 90.7 fL (80-100); MEAN CORPUSCULAR HEMOGLOBIN 28.1 pg (25-34); MEAN PLATELET VOLUME 8.9 fL (7.4-10.4); PLATELET COUNT 231 K/uL (130-400); RED CELL DISTRIBUTION WIDTH CV 15.6 % (11.5-14.5); RED CELL DISTRIBUTION WIDTH SD 50.3 fL (36.4-46.3); WHITE BLOOD COUNT 4.05 K/uL (4.8-10.8)
[2018-03-29 06:38] LABS: CALCIUM 7.9 mg/dl (8.5-10.1); CREATININE 0.95 mg/dl (0.60-1.20); POTASSIUM 3.4 mmol/L (3.5-5.1)
[2018-03-29] MEDS: ALBUT/IPRATROP 3MG/0.5MG NEB 3 ML VIAL INH SCH ×2 (06:51→11:12)
[2018-03-29 06:52] VITALS: PULSE 86; O2SAT 94
[2018-03-29 07:06] VITALS: BP_SYST 155; BP_SYST 166; BP_DIAS 120; BP_DIAS 124; PULSE 92; TEMP 37; O2SAT 99
[2018-03-29] MEDS: ZINC SULFATE 220 MG CAP PO SCH (07:50)
[2018-03-29] MEDS: RANITIDINE HCL 150 MG TAB PO SCH (07:50)
[2018-03-29] MEDS: CHOLECALCIFEROL 1000 INTER.UNIT TAB PO SCH (07:50)
[2018-03-29] MEDS: FLUOXETINE HCL 20 MG CAP PO SCH (07:51)
[2018-03-29] MEDS: METOPROLOL SUCC 50MG EXT REL TAB PO SCH (07:51)
[2018-03-29] MEDS: ATORVASTATIN 40 MG TAB PO SCH (07:51)
[2018-03-29] MEDS: DILTIAZEM HCL 120 MG EXT REL CAP PO SCH (07:51)
[2018-03-29] MEDS: MULTIVITAMIN TAB PO SCH (07:51)
[2018-03-29] MEDS: PANTOprazole SOD 40 MG TAB PO SCH (07:51)
[2018-03-29] MEDS: NITROFURANTOIN MONOHYDRATE 100 MG CAP PO SCH (07:51)
[2018-03-29] MEDS: APIXABAN 2.5 MG TAB PO SCH (07:52)
[2018-03-29] MEDS ORDERED: MCRB100 PO (10:45)
--- NOTE | 2018-03-29 10:47 | Discharge Instructions ---
Discharge Instructions Date of Service Mar 29, 2018. Admission Reason for Admission: Pancreatitis Discharge Discharge Diagnosis / Problem: Pancreatitis Discharge Goals Goal(s): Decrease discomfort, Improve function Activity Recommendations Activity Limitations: resume your previous activity . Instructions / Follow-Up Instructions / Follow-Up Recommend followup with Dr. Brewer in 1-2 weeks Recommend F/U with PCP in 1 week Recommend f/u with Dr. Murphy in 1-2 weeks for possible upper endoscopy. Current Hospital Diet Patient's current hospital diet: Low Fat Diet Discharge Diet Recommended Diet: Low Fat Diet Pending Studies Studies pending at discharge: no Laboratory Results Lipid Panel Test 03/25/18 04:49 Range/Units Triglycerides Level 59 0-150 mg/dl Medical Emergencies . Who to Call and When: Medical Emergencies: If at any time you feel your situation is an emergency, please call 911 immediately. . Non-Emergent Contact Non-Emergency issues call your: Primary Care Provider Call Non-Emergent contact if: you have any medication questions . . "Provider Documentation" section prepared by Devon Ventura. .
--- NOTE | 2018-03-29 10:50 | Discharge Summary ---
Discharge Summary Date of Service Mar 29, 2018. Discharge Summary Admission Date: Mar 24, 2018 at 19:32 Discharge Date: Mar 29, 2018 Immunizations: Have You Had Influenza Vaccine: Yes Influenza Vaccine Date: Sep 18, 2011 History of Tetanus Vaccine?: Unknown History of Pneumococcal: No History of Hepatitis B Vaccine: Yes Hepatitis Immunization Date: Mar 27, 2011 Hospital Course On room air. 67 year old female with complicated GI history including gastric raudel en Y presents with acute epigastric pain Pulmonary edema Likely precipatated by fluid patient was receiving for her pancreatitis Patient had a. fib overnight and developed shortness of breath. IVF was stopped. Patient received a dose of 20 mg of IV lasix. Patient ordered an additional 40mg IV of lasix. WILL MONITOR Is and Os. She is currently positive 6 liters. At this time will hold off echo cardiogram as this is likely iatrogenic. Epigastric pain Likely due to pancreatitis -Consulted GI - Lipase normalized today. MRCP was negative. EGD postponed due to a. fib and pulmonary edema. will f/u as outpatient. UTI Present on admission Continue nitrofurantoin Patient will be treated for 5 days. Acute Pancreatitis - based on elevated lipase, unclear if this is the cause of her pain given acute on chronic nature - Appears to be improving. -still on IV fluids. -No signs of pulmonary edema. - Patient still having abd. pain, but is milder Elevated Liver function tests patient has had cholecystectomy in the past. MRCP ruled out biliary stone GERD - continue ranitidine - switch omeprazole to pantoprazole as per formulary Atrial fibrillation - rate controlled with metoprolol (patient reports no longer taking evening dose ) and diltiazem - anticoagulation with apixaban. will monitor. better controlled today. Episodes of elevated hr coincide with albuterol neb. VTE Prophylaxis - apixaban 5mg BID This includes examination of the patient, discharge planning, medication reconciliation, and communication with other providers. Discharge Instructions Please refer to the electronic Patient Visit Report (Discharge Instructions) for additional information.
[2018-03-29] MEDS ORDERED: POTASSIUM CHLORIDE 10 MEQ TABCR PO STA (10:59)
[2018-03-29] MEDS ORDERED: MCRK20 PO (11:02)
[2018-03-29] MEDS ORDERED: FUROSEMIDE INJ 20 MG in SYRINGE 0 ML IV STA (11:06)
[2018-03-29 11:13] VITALS: PULSE 86; O2SAT 94
[2018-03-29] MEDS ORDERED: FUROSEMIDE 40 MG TAB PO STA (11:19)
[2018-03-29 11:36] VITALS: BP 155/120; PULSE 86; TEMP 37; O2SAT 94
== END 2018-03-29 12:00 | disposition home or self-care (01) | DRG 438 ==
LOC: EDBD 16:19 → C.EDB 16:20 → C.MED 19:32 → ENRESERV 19:40
PROVIDERS: ADMIT Internal Medicine; ATTEND Internal Medicine Sports Medicine
DX: K85.90 Acute pancreatitis without necrosis or infection, unspecified (principal); J81.0 Acute pulmonary edema; N39.0 Urinary tract infection, site not specified; R79.89 Other specified abnormal findings of blood chemistry; I48.2 Chronic atrial fibrillation; K21.9 Gastro-esophageal reflux disease without esophagitis; I10 Essential (primary) hypertension; D64.9 Anemia, unspecified; Z79.01 Long term (current) use of anticoagulants; Z79.899 Other long term (current) drug therapy; Z98.84 Bariatric surgery status; Z87.891 Personal history of nicotine dependence

== ENCOUNTER → 2018-07-24 | Outpatient (CLI) | payer OTHER, MEDICARE ==
[~2018-07-24] MED LIST changes: -ALIGN PO; +CHOL400C6 PO; +LPT40 PO; -NITR-90 PO; +OMEP20CA9 PO; -OXYC1TAB3 PO; -PRAV20TA PO; +RANI150T2 PO; +TPRSR/100 PO
[2018-07-24 12:27] LABS: BASO % 0.4 %; BASO ABS # 0.02 K/uL (0-0.2); EOS % 2.2 %; HEMATOCRIT 42.2 % (37-47); HEMOGLOBIN 13.3 g/dL (12.0-16.0); IG# 0.01 K/uL (0.00-0.02); LYMPH % 27.4 %; LYMPH ABS # 1.24 K/uL (1.2-3.4); MEAN CELL VOLUME 91.9 fL (80-100); MEAN CORPUSCULAR HGB CONC 31.5 g/dl (32-36); MEAN PLATELET VOLUME 9.7 fL (7.4-10.4); MONO % 7.9 %; MONO ABS # 0.36 K/uL (0.11-0.59); NEUT % 61.9 %; PLATELET COUNT 270 K/uL (130-400); RED CELL DISTRIBUTION WIDTH CV 16.1 % (11.5-14.5); RED CELL DISTRIBUTION WIDTH SD 54.4 fL (36.4-46.3); WHITE BLOOD COUNT 4.53 K/uL (4.8-10.8)
== END | disposition home or self-care (01) ==
LOC: C.LABBFT 09:04
PROVIDERS: ATTEND Internal Medicine
DX: D64.9 Anemia, unspecified (principal)

== ENCOUNTER 2018-11-30 08:42 | Inpatient (IN) ==
--- NOTE | 2018-11-30 08:59 | CT Scan Report ---
CT head/brain wo con CLINICAL HISTORY: 68 years-old Female with stroke. Acute strokelike symptoms TECHNIQUE: Multiple axial CT images of the head were obtained without contrast. A dose lowering tech nique was utilized adhering to the principles of ALARA. CT DOSE: 614.27 mGy.cm COMPARISON: MRI brain 10/13/2018. FINDINGS: No acute intracranial hemorrhage, midline shift, intracranial mass, hydrocephalus, territorial ischem ia or abnormal extra-axial collection. Mild atrophy. Extensive white matter hypodensities redemonstra jeannie suggestive of advanced chronic microvascular ischemic changes. The calvarium is intact. Previously described 2.5 cm lesion of the right frontal calvarium is not def initively seen by CT. The paranasal sinuses, mastoid air cells, and middle ear cavities are clear. IMPRESSION: 1. No acute intracranial hemorrhage, midline shift or territorial infarct. 2. Mild atrophy with redemonstration of extensive white matter hypodensities suggestive of chronic mi crovascular ischemic changes with demyelinating process thought to be less likely. The above report was generated using voice recognition software. It may contain grammatical, syntax o r spelling errors. Electronically signed by: Merlin Gresham M.D. 11/30/2018 8:57 AM
[2018-11-30] MEDS ORDERED: dilTIAZem HCl 5 MG/ML 5 ML VIAL IV STA ×3 (09:05→18:24)
[2018-11-30 09:11] LABS: Hematocrit (blood only) 40.5 % (37-47); Hemoglobin 12.7 g/dL (12.0-16.0); Mean Corpuscular Hgb Conc 31.4 g/dL (32-36); Mean Corpuscular Volume 94.4 fL (80-100); Platelet Count 235 K/uL (130-400); RDW Standard Deviation 51.7 fL (36.4-46.3); Red Blood Count 4.29 M/uL (4.2-5.4); White Blood Count 5.06 K/uL (4.8-10.8)
[2018-11-30 09:20] LABS: iSTAT Hemoglobin 13.3 g/dl (12.0-16.0); iSTAT Ionized Calcium 1.2 mmol/l (1.12-1.32)
[2018-11-30 09:23] LABS: INR 1.1 (0.9-1.1); Partial Thromboplastin Ratio 0.9; Partial Thromboplastin Time 24.5 Seconds (21.0-31.0); Prothrombin Time 11.2 Seconds (9.0-12.0)
[2018-11-30 09:31] LABS: Albumin Level 3.4 gm/dl (3.4-5.0); BUN Creatinine Ratio 21.3 (10-20); Creatinine Clr Calc Pharmacy 64.9 ml/min; Est GFR (Non-African American) 58.7; Potassium 3.9 mmol/L (3.5-5.1)
[2018-11-30 09:34] LABS: Albumin Globulin Ratio 0.8 (0.9-2); Bilirubin,Total 0.8 mg/dl (0.1-1); Total Protein 7.4 gm/dl (6.4-8.2)
--- NOTE | 2018-11-30 09:49 | Emergency Department Note ---
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 She was given additional 15 mg of IV Cardizem for heart rate control in addition to the Cardizem drip at 15 mg/h. Impression & Plan Atrial fibrillation with RVR Critical Care Time I have personally spent 35minutes of critical care time in the direct management of this patient. This includes bedside care, interpretation of diagnostic studies, and testing, discussion with consultants, patient, and family members, and other required patient management activities. This 35 minutes is in excess of all separately billable procedures. Critical Care Time: Yes Total Critical Care Time: 35 Discharge Plan Visit Data Chief Complaint: Stroke/CVA Symptoms Stated Complaint: SLURRED SPEECH, UNBALANCED ED Provider: Ciro Peter Discharge Problem: Atrial fibrillation with RVR Patient Disposition: Being Evaluated by Hospitalist Forms Stand Alone Forms: My [facility] Prescriptions Prescriptions: No Action atorvastatin 40 mg tablet 40 mg PO DAILY RF: 0 diltiazem HCl 240 mg capsule,extended release 24hr 240 mg PO DAILY RF: 0 apixaban 5 mg tablet 5 mg PO BID RF: 0 multivitamin Tablet 1 tab PO DAILY RF: 0 lisinopril 20 mg tablet 20 mg PO DAILY RF: 0 omeprazole 20 mg capsule,delayed release(DR/EC) 20 mg PO BID RF: 0 fluoxetine 40 mg capsule 40 mg PO DAILY RF: 0 metoprolol succinate 100 mg tablet extended release 24 hr 100 mg PO BID RF: 0 ranitidine HCl 150 mg tablet 150 mg PO BID PRN (Reason: Heartburn) RF: 0 cholecalciferol (vitamin D3) [Vitamin D3] 400 unit Capsule 800 unit PO DAILY RF: 0 zinc sulfate [Zinc-220] 220 (50) mg Capsule 440 mg PO DAILY RF: 0 calcium carbonate-vitamin D3 [Calcium 600 with Vitamin D3] 600 mg(1,500mg) - 200 unit Tablet 1 tab PO BID RF: 0 Referrals Referrals: Donal Guevara MD [Primary Care Provider] - The scribe's documentation has been prepared under my direction and personally reviewed by me in its entirety. I confirm that the note above accurately reflects all work, treatment, procedures, and medical decision making performed by me.
[2018-11-30] MEDS ORDERED: OPTIRAY 320 125ml IV PRN (10:04)
--- NOTE | 2018-11-30 10:28 | CT Scan Report ---
CT angio neck with con, CT angio head w con CLINICAL HISTORY: 68 years-old Female with ?CVA. Acute strokelike symptoms COMPARISON STUDY: CT head 11/30/2018, MRI brain 10/13/2018 TECHNIQUE: Following the IV administration of 119 mL of Optiray 320, CT angiogram of the head and nec k was performed from the aortic arch to the skull apex. Images are reviewed in the axial, sagittal, a nd coronal planes. 3-D MIPS images are created and assessed. IV contrast was administered without com plication. All measurements were calculated based on NASCET criteria. A dose lowering technique was utilized adhering to the principles of ALARA. CT DOSE: 528.16 mGy.cm FINDINGS: Three-vessel morphology of aortic arch with moderate mixed plaque formation. Patency of the imaged bi lateral subclavian arteries. Bilateral common carotid arteries are widely patent and demonstrate mild degree of mixed plaque formation. Moderate mixed plaque formation of the bilateral carotid bulbs and proximal internal carotid arteries without high-grade stenosis. Calcified plaque noted about the cav ernous segments of the bilateral internal carotid arteries. Tortuosity about the distal cervical segm ent right ICA. The middle and anterior cerebral arteries are widely patent. 70% luminal narrowing at the origin of the left vertebral artery secondary to atheromatous and athero sclerotic plaque formation. The vertebral arteries are codominant. Calcified plaque at the origin of the right vertebral artery results in 60% luminal narrowing. Mild luminal irregularity about the V2 s egment right vertebral artery at the level of C5-C6 on image 158 series 4 is noted with associated in timal flap, compatible with a short segment dissection. The remainder of the bilateral vertebral raza izabel are unremarkable and are widely patent. The basilar artery is unremarkable and patent. The bilat eral posterior cerebral arteries are patent and within normal limits. Cerebral venous sinuses appear patent. Right pleural effusion is partially imaged. Intralobular septal thickening with groundglass opacities suggestive of pulmonary edema. Thickening of the bronchovascular bundles. Calcified granulomata abou t the right lung apex. Indeterminate AP window lymph nodes measure up to 7 mm. Multinodular thyroid. 6 mm hypodense lesion of the left thyroid cartilage on image 157 series 4, likely benign. Minimal rig htward and deviation of the true vocal fold, nonspecific. Degenerative changes of the spine. Mastoid air cells and middle ear cavities are clear. Mild mucosal thickening of the ethmoid air cells. IMPRESSION: 1. Mixed plaque formation at the origin of the bilateral vertebral arteries results in 70% stenosis o n the left and 60% stenosis on the right. 2. 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 3. Mixed plaque formation about the bilateral carotid bulbs causes less than 50% luminal narrowing. 4. No aneurysm or proximal branch occlusion. 5. Additional findings as above. The above report was generated using voice recognition software. It may contain grammatical, syntax o r spelling errors. Electronically signed by: Merlin Gresham M.D. 11/30/2018 10:25 AM
--- NOTE | 2018-11-30 10:28 | XRay Report ---
XR chest 1V portable HISTORY: 68 years-old Female afib w/ rvr acute shortness of breath with atrial fibrillation COMPARISON: Chest radiograph 10/12/2018 TECHNIQUE: Portable AP view of the chest FINDINGS: Cardiac silhouette is enlarged, unchanged. Pulmonary vascular congestion with interstitial coarsening . Small right and trace left pleural effusions. No pneumothorax. No lobar airspace consolidation. Deg enerative changes of the shoulders and spine. IMPRESSION: 1. Cardiomegaly with mild pulmonary edema. 2. Small right and trace left pleural effusions. The above report was generated using voice recognition software. It may contain grammatical, syntax o r spelling errors. Electronically signed by: Merlin Gresham M.D. 11/30/2018 10:27 AM
[2018-11-30] MEDS: dilTIAZem HCl 125 MG in DEXTROSE 5% 100 ML IV SCH ×2 (10:36→20:25)
--- NOTE | 2018-11-30 12:18 | History & Physical Report ---
Date of Service November 30, 2018 Assessment & Plan (1) TIA (transient ischemic attack): Patient presented with aphasia and some dysequilibrium for about 1 hour which spontaneously resolved. Did miss a few doses of apixaban last week when she ran out, but has been back on it for at least 3 days. - MRI brain - Started ASA 81mg - Continue statin - Neurology consult - Telemetry - Monitor BP & HR (2) Dissection of vertebral artery: CTA neck on 11/30 showed "Short segment dissection about the V2 segment right vertebral artery." Also showed some plaque formation and stenosis of both vertebral arteries. No symptoms at the time of my interview. Per my review of the guidelines in UpToDate (2013 AHA & 2011 ACCP), the standard treatment is standard TIA treatment (an anti-platelet agent in this case). If she has recurrent symptoms, would need to consider possible transfer. - Vascular consult on Saturday - Monitor for worsening stroke symptoms (higher NIHSS score) - HR and BP control (3) Atrial fibrillation with RVR: Incidentally noted to have afib with RVR in the ED. Blood pressure stable. Started on cardizem gtt. She is unsure if she took her metoprolol and/ or diltiazem this morning as she reports she takes about 1/2 her pills once in the morning, then the other half later. - Continue diltiazem gtt with titration instructions - Restart metoprolol XL 100mg PO BID - Start diltiazem 60mg PO TID to better titrate (holding her long-acting diltazem) - Continue apixaban (patient says she now has enough to last until December) (4) Hypertension: BP in good range at present (130/95). Will try to control BP slightly more than usual post-TIA given the vertebral artery dissection. - Continue home meds - Monitor BP (5) H/O gastric bypass: Takes her pills in batches to be easier on her stomach. - Continue PPI and H2 for gastric protection (especially since I'm starting ASA) (6) Depression: - Continue fluoxetine (7) DVT prophylaxis: On apixaban for afib History of Present Illness Primary Care Provider: Donal Guevara MD 68yo F w/ hx of afib, pancreatitis, Ngoc-n-Y gastric bypass who presents with an episode concerning for TIA. Per patient and , was in her normal state of health this morning when she awoke. She was going toward the car to go to [employer], when she started to mumble, have trouble speaking, and speak jibberish words. She also stumbled somewhat and had some difficulty walking and getting into the car. At no point did she have focal weakness as far as they could determine. In the ED, she had a stroke alert and went to CT scanner which did not show acute bleed. After getting back to the room, the symptoms improved and resolved about the time the CTA was ordered. At present, she reports fatigue, but is otherwise back to baseline. However, she was also noted to be in afib with RVR. She reports she took about half of her medications this morning, but is not sure which ones. Allergies Allergy/AdvReac Type Severity Reaction Status Date / Time No Known Allergies Allergy Verified 11/30/18 09:28 Home Medications Home Medications Medication Instructions Recorded Confirmed Type apixaban 5 mg PO BID 10/12/18 11/30/18 History atorvastatin 40 mg PO DAILY 10/12/18 11/30/18 History calcium carbonate-vitamin D3 1 tab PO BID 10/12/18 11/30/18 History [Calcium 600 with Vitamin D3] cholecalciferol (vitamin D3) 800 unit PO DAILY 10/12/18 11/30/18 History [Vitamin D3] diltiazem HCl 240 mg PO DAILY 10/12/18 11/30/18 History fluoxetine 40 mg PO DAILY 10/12/18 11/30/18 History lisinopril 20 mg PO DAILY 10/12/18 11/30/18 History metoprolol succinate 100 mg PO BID 10/12/18 11/30/18 History multivitamin 1 tab PO DAILY 10/12/18 11/30/18 History omeprazole 20 mg PO BID 10/12/18 11/30/18 History ranitidine HCl 150 mg PO BID PRN 10/12/18 11/30/18 History zinc sulfate [Zinc-220] 440 mg PO DAILY 10/12/18 11/30/18 History Past Med/Surg History Medical History Atrial fibrillation (Chronic) CHF (congestive heart failure) FH: cholecystectomy GERD (gastroesophageal reflux disease) H/O: hysterectomy Hypertension Pancreatitis Tubal ligation status Surgical History H/O gastric bypass (Resolved) Hx of removal of cyst Family History Other Pancreatic cancer Stomach cancer Social History Current Living Situation: Spouse Other 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 Helps Us Care for You: No Feels Safe at Home: Yes Safety Concerns: Feels Safe At This Time Smoking Status: Former smoker Second Hand Exposure: No Hx Alcohol Use: Yes Alcohol type: beer, wine and hard liquor Alcohol Intake Frequency: a few times a week Hx Substance Use: Yes substance use type: marijuana, crack/cocaine, amphetamines, hallucinogens, sedatives and opiates Substance Use Type Other:: last use was 40 years ago Beliefs That Will Affect Care: None Preferred Language: Libyan Communication Ability: Effective Review of Systems Constitutional: no fever, no chills and no sweats Eyes: no diplopia Ear, Nose, Mouth, Throat: no ear trauma, no nasal discharge and no dental pain Respiratory: no cough, no chest congestion and no dyspnea Cardiovascular: no chest pain, no dyspnea on exertion, no palpitations and no syncope Gastrointestinal: no abdominal pain, no belching, no constipation, no diarrhea/ loose stools, no blood in stools and no melena Musculoskeletal: no back pain, no joint pain and no muscle weakness Integumentary: no rash, no skin ulcer and no erythema Neurologic: no generalized weakness, no loss of sensation, no numbness and no paresthesia Psychiatric: no depression and no anxiety Endocrine: + fatigue; no polydipsia and no polyphagia Physical Exam 2 Vital Signs (Past 24 Hours): Last Vital Signs Temp 36.9 C 11/30/18 08:50 Pulse 100 H 11/30/18 11:45 Resp 17 11/30/18 11:45 BP 157/113 H 11/30/18 11:45 Pulse Ox 97 11/30/18 11:45 Constitutional: WD/WN, vitals as above + obese and + lethargic Eyes: EOM intact bilaterally; no conjunctival abnormality ENMT: external ear and nose normal, oropharynx normal Neck: trachea midline, no thyromegaly normal visual inspection Respiratory: normal respiratory effort, lungs clear to auscultation no respiratory distress Cardiovascular: Rate/Rhythm: + tachycardic; + abnormal rhythm Heart Sounds : normal S1 and normal S2 Gastrointestinal (Abdomen): Inspection/Auscultation: abdomen normal to inspection; abdomen not distended Musculoskeletal: no cyanosis or clubbing, extremities motor strength 5/5 Skin: no rashes, warm and dry Neurologic: moves all extremities and awake Psychiatric: Orientation: alert, oriented to person and cooperative _ (1) Hypertension Hypertension type: essential hypertension Qualified Code(s): I10 - Essential (primary) hypertension
[2018-11-30] MEDS ORDERED: ACETAMINOPHEN 325 MG TAB PO PRN (14:08)
[2018-11-30] MEDS ORDERED: PHARMACIST DISCHARGE MED REC CONSULT PRN (14:08)
[2018-11-30] MEDS: dilTIAZem HCl 60 MG TAB PO SCH ×2 (15:22→20:28)
--- NOTE | 2018-11-30 15:31 | Magnetic Resonance Report ---
MR brain wo con HISTORY: 68 years-old Female Possible TIA acute strokelike symptoms COMPARISON: Brain MRI 10/13/2018, CTA head 11/30/2018 TECHNIQUE: Multiplanar multisequence MRI of the brain was obtained without the use of IV contrast. FINDINGS: 2.5 cm T1 hypointense lesion of the right frontal calvarium redemonstrated which appears unchanged fr om comparison and likely benign. Degenerative changes noted about the imaged cervical spine. Sella ap pears empty. Corpus callosum, brainstem and optic chiasm appear unremarkable. No cerebellar tonsillar herniation. No restricted diffusion to suggest acute or subacute infarction. No acute intracranial hemorrhage, mi dline shift, abnormal extra-axial collections, hydrocephalus or intracranial mass. Mild to moderate a trophy. Extensive T2/FLAIR hyperintensities about the white matter redemonstrated. Major flow voids a ppear patent. Mastoid air cells are clear. Mild mucosal thickening of the ethmoid air cells and maxil shira sinuses. Orbits, and soft tissues are unremarkable. IMPRESSION: 1. No acute intracranial abnormality, specifically no acute or subacute infarction. 2. Atrophy with extensive T2/FLAIR hyperintensities again noted about the white matter suggestive of chronic microvascular ischemic changes. 3. Unchanged 2.5 cm indeterminate T1 hypointense lesion of the right frontal calvarium The above report was generated using voice recognition software. It may contain grammatical, syntax o r spelling errors. Electronically signed by: Merlin Gresham M.D. 11/30/2018 3:30 PM
[2018-11-30] MEDS ORDERED: ONDANSETRON INJ 2 MG/ML 2 ML VIAL IV PRN (18:24)
[2018-11-30] MEDS: METOPROLOL SUCC 50MG EXT REL TAB PO SCH (20:28)
[2018-11-30] MEDS: APIXABAN 5 MG TABLET PO SCH (20:28)
[2018-11-30] MEDS: PANTOprazole 40 MG TAB PO SCH (20:28)
[2018-12-01 06:04] LABS: Hemoglobin 11.8 g/dL (12.0-16.0); Mean Corpuscular Hgb Conc 31.1 g/dL (32-36); Mean Corpuscular Volume 94.1 fL (80-100); Mean Platelet Volume 9.1 fL (7.4-10.4); Platelet Count 224 K/uL (130-400); RDW Coefficient of Variation 15.2 % (11.5-14.5); RDW Standard Deviation 52.3 fL (36.4-46.3); Red Blood Count 4.04 M/uL (4.2-5.4); White Blood Count 3.47 K/uL (4.8-10.8)
[2018-12-01 06:41] LABS: BUN Creatinine Ratio 19.7 (10-20); Calcium 8.6 mg/dl (8.5-10.1); Creatinine Clr Calc Pharmacy 74.6 ml/min; Est GFR (African American) 80.5; Est GFR (Non-African American) 69.4; Magnesium 2.1 mg/dl (1.8-2.4); Potassium 3.9 mmol/L (3.5-5.1)
[2018-12-01 06:53] LABS: Estimated Average Glucose 114 mg/dl
[2018-12-01] MEDS: dilTIAZem HCl 60 MG TAB PO SCH (08:30)
[2018-12-01] MEDS: METOPROLOL SUCC 50MG EXT REL TAB PO SCH (08:31)
[2018-12-01] MEDS: PANTOprazole 40 MG TAB PO SCH (08:31)
[2018-12-01] MEDS ORDERED: LISINOPRIL 20 MG TAB PO SCH (09:00)
[2018-12-01] MEDS ORDERED: ATORVASTATIN 40 MG TAB PO SCH (09:00)
[2018-12-01] MEDS ORDERED: ASPIRIN 81 MG ECTAB PO SCH (09:00)
[2018-12-01] MEDS ORDERED: FLUOXETINE HCL 20 MG CAP PO SCH (09:00)
--- NOTE | 2018-12-01 09:20 | Neurology Consultation ---
Date of Consultation December 01, 2018 Assessment & Plan (1) TIA (transient ischemic attack): TIA probably localized in the left cerebral hemisphere, left middle cerebral artery territory. Notable risk factors in this patient include atrial fibrillation and noncompliance with anticoagulation recently. I stressed the importance of ongoing compliance with Eliquis directly with the patient to reduce her risk of stroke or TIA going forward. I agree with the addition of aspirin 81 mg/day for the time being. However, if she were to remain clinically stable over the next 3 months the daily low-dose aspirin could probably be discontinued. Continue with other medications for cardiovascular risk reduction including atorvastatin as well as her antihypertensive regimen. (2) Dissection of vertebral artery: This patient's recently completed CT angiogram of the neck reveals a short segment right vertebral dissection at the C5-6 level. This finding is incidental and of unknown chronicity. There is no role for surgical intervention. Treatment for vertebral artery dissection consists of either antiplatelet or anticoagulant medications. She is already prescribed Eliquis for her atrial fibrillation which should be adequate to address any theoretical increased risk of vertebral artery dissection related thromboembolic events. History of Present Illness Reason for Consultation: TIA Requesting Physician: Dr. Garland Alegria Attending Physician: Juventino Hui MD, PhD, [facility] History of Present Illness The patient is a 68-year old female who presented to the emergency department yesterday for further assessment of an episode of acute onset stumbling, confusion, and delayed verbal responses which occurred while she was in her garage yesterday morning just prior to going to restorationism. The patient indicates that her had considerable difficulty assisting her into the vehicle at that time. She recalls feeling as if she was completely unable to move. There was no fall or loss of consciousness. Her symptoms gradually improved and route to the hospital where she was not found to have any significant neurologic deficits at the time of arrival. The patient wonders if stress may have brought on the above episode as she admits to having a significant argument with her son prior to symptom onset. The patient denies a past medical history of stroke or TIA although she does have a history of atrial fibrillation which was diagnosed several years ago for which she has been taking Eliquis. The patient does admit that she missed at least 3 dosages of her Eliquis within the past week. The patient denies any acute or residual neurological symptoms at this point in time. She denies headache, vision loss, diplopia, vertigo, focal weakness, sensory loss, or speech changes currently. A CT of the head completed in the emergency department was negative for hemorrhage or acute process or signs suggestive of a subacute evolving infarct. The study did reveal chronic microvascular ischemic disease. A CT angiogram of the head and neck revealed a 70% narrowing of the left vertebral artery, a 60 % narrowing of the right vertebral artery, and bilateral 50% narrowing at the carotid bulbs. There was also a short segment right vertebral dissection at the level of C5-6. The patient has no known past medical history of vertebral artery dissection. She denies a past medical history of significant head or neck trauma. She denies any head or neck pain currently. A blood glucose in the emergency department was 90. Electrocardiogram revealed atrial fibrillation with a heart rate of 133 bpm. The patient was started on daily low -dose aspirin in addition to her other medications. A follow-up brain MRI was ordered as well. This study was negative for any evidence of acute or subacute infarct and revealed chronic, extensive, microvascular ischemic disease. Allergies Allergy/AdvReac Type Severity Reaction Status Date / Time No Known Allergies Allergy Verified 11/30/18 09:28 Home Medications Home Medications Medication Instructions Recorded Confirmed Type apixaban 5 mg PO BID 10/12/18 11/30/18 History atorvastatin 40 mg PO DAILY 10/12/18 11/30/18 History calcium carbonate-vitamin D3 1 tab PO BID 10/12/18 11/30/18 History [Calcium 600 with Vitamin D3] cholecalciferol (vitamin D3) 800 unit PO DAILY 10/12/18 11/30/18 History [Vitamin D3] diltiazem HCl 240 mg PO DAILY 10/12/18 11/30/18 History fluoxetine 40 mg PO DAILY 10/12/18 11/30/18 History lisinopril 20 mg PO DAILY 10/12/18 11/30/18 History metoprolol succinate 100 mg PO BID 10/12/18 11/30/18 History multivitamin 1 tab PO DAILY 10/12/18 11/30/18 History omeprazole 20 mg PO BID 10/12/18 11/30/18 History ranitidine HCl 150 mg PO BID PRN 10/12/18 11/30/18 History zinc sulfate [Zinc-220] 440 mg PO DAILY 10/12/18 11/30/18 History Patient History Medical History Atrial fibrillation (Chronic) CHF (congestive heart failure) FH: cholecystectomy GERD (gastroesophageal reflux disease) H/O: hysterectomy Hypertension Pancreatitis Tubal ligation status Surgical History H/O gastric bypass (Resolved) Hx of removal of cyst Family History Other Pancreatic cancer Stomach cancer Social History Current Living Situation: Spouse Other 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 Helps Us Care for You: No Feels Safe at Home: Yes Safety Concerns: Feels Safe At This Time Smoking Status: Former smoker Second Hand Exposure: No Hx Alcohol Use: Yes Alcohol type: beer, wine and hard liquor Alcohol Intake Frequency: a few times a week Hx Substance Use: Yes substance use type: marijuana, crack/cocaine, amphetamines, hallucinogens, sedatives and opiates Substance Use Type Other:: last use was 40 years ago Beliefs That Will Affect Care: None Preferred Language: Lithuanian Communication Ability: Effective Review of Systems Constitutional: no fever and no chills Eyes: no blind spots and no diplopia Ear, Nose, Mouth, Throat: no hearing loss Respiratory: no cough and no dyspnea Cardiovascular: no chest pain and no palpitations Gastrointestinal: no abdominal pain and no vomiting Genitourinary (Female): no dysuria Musculoskeletal: no neck pain and no myalgia Integumentary: no rash and no lesions Neurologic: as per Subjective / HPI Psychiatric: no depression and no anxiety Hematologic / Lymphatic: no easy bleeding and no easy bruising Physical Exam 2 Vital Signs (Past 24 Hours): Last Vital Signs Temp 36.7 C 12/01/18 08:19 Pulse 75 12/01/18 08:19 Resp 16 12/01/18 08:19 BP 157/74 H 12/01/18 08:19 Pulse Ox 97 12/01/18 08:19 Physical Exam: The patient is a well-developed, well-nourished elderly female. She is alert and fully oriented. Recent and remote memory intact. Attention and concentration normal. Patient exhibits a normal spontaneous speech pattern. She is able to name objects, repeat phrases, and read text. Patient exhibits an age-appropriate fund of knowledge and normal vocabulary. Visual angel full to confrontation. Visual acuity normal. Pupils equal round reactive to light and accommodation. Eye movements normal. Facial sensation intact. There is slight flattening of the right nasolabial fold. Hearing intact. Palate elevates to midline. Shoulder shrug intact. Tongue protrudes to midline. Sensation intact to all modalities in all 4 limbs. Deep tendon reflexes are intact and symmetrical for the arms and legs bilaterally. Plantar responses downgoing bilaterally. There is no dysdiadochokinesia or dysmetria finger to nose or heel to malave bilaterally. Ophthalmoscopic examination reveals normal-appearing optic disks and posterior segments. No papilledema or hemorrhages. Carotid pulses normal bilaterally, no bruits to auscultation. Gait and station not tested due to safety concerns. Patient exhibits normal muscle strength and tone for all 4 limbs. No atrophy. No abnormal movements observed.
[2018-12-01] MEDS: APIXABAN 5 MG TABLET PO SCH (10:17)
[2018-12-01] MEDS ORDERED: STROKE PATIENT DISCHARGE STA (12:34)
--- NOTE | 2018-12-01 12:37 | Discharge Summary ---
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 Per patient and , was in her normal state of health this morning when she awoke. She was going toward the car to go to [employer], when she started to mumble, have trouble speaking, and speak jibberish words. She also stumbled somewhat and had some difficulty walking and getting into the car. At no point did she have focal weakness as far as they could determine. In the ED, she had a stroke alert and went to CT scanner which did not show acute bleed. After getting back to the room, the symptoms improved and resolved about the time the CTA was ordered. At present, she reports fatigue, but is otherwise back to baseline. However, she was also noted to be in afib with RVR. She reports she took about half of her medications this morning, but is not sure which ones. Principal Diagnosis TIA, Discharge Data Allergies Allergy/AdvReac Type Severity Reaction Status Date / Time No Known Allergies Allergy Verified 11/30/18 09:28 Consultations 11/30/18 12:10 ED Decision to Admit Stat 11/30/18 14:08 Consult Case Management - Discharge Planning Routine Consult Neurology Routine 11/30/18 15:26 Consult Vascular Surgery Routine Ordered Studies 11/30/18 08:44 CT head/brain wo con Stat 11/30/18 09:35 CT angio head w con Stat CT angio neck with con Stat 11/30/18 14:08 MR brain wo con Routine Hospital Course (1) TIA (transient ischemic attack): Patient presented with aphasia and some dysequilibrium for about 1 hour which spontaneously resolved. Did miss a few doses of apixaban last week when she ran out, but has been back on it for at least 3 days. - MRI brain - Started ASA 81mg - Continue statin - Neurology consult - Telemetry - Monitor BP & HR (2) Dissection of vertebral artery: CTA neck on 11/30 showed "Short segment dissection about the V2 segment right vertebral artery." Also showed some plaque formation and stenosis of both vertebral arteries. No symptoms at the time of my interview. Per my review of the guidelines in UpToDate (2014 AHA & 2011 ACCP), the standard treatment is standard TIA treatment (an anti-platelet agent in this case). If she has recurrent symptoms, would need to consider possible transfer. - Vascular consult on Saturday - Monitor for worsening stroke symptoms (higher NIHSS score) - HR and BP control (3) Atrial fibrillation with RVR: Incidentally noted to have afib with RVR in the ED. Blood pressure stable. Started on cardizem gtt. She is unsure if she took her metoprolol and/ or diltiazem this morning as she reports she takes about 1/2 her pills once in the morning, then the other half later. - Continue diltiazem gtt with titration instructions - Restart metoprolol XL 100mg PO BID - Start diltiazem 60mg PO TID to better titrate (holding her long-acting diltazem) - Continue apixaban (patient says she now has enough to last until December) (4) Hypertension: BP in good range at present (130/95). Will try to control BP slightly more than usual post-TIA given the vertebral artery dissection. - Continue home meds - Monitor BP (5) H/O gastric bypass: Takes her pills in batches to be easier on her stomach. - Continue PPI and H2 for gastric protection (especially since I'm starting ASA) (6) Depression: - Continue fluoxetine (7) DVT prophylaxis: On apixaban for afib On the day of discharge, I saw the patient, she has been up and walk, no dizziness no weakness no difficulty finding words or dysphagia, Review of system: Constitutional: negative weakness, or fatigue Respiratory: no cough, sputum, wheezing, or dyspnea on exertion Cardiac: No chest pain, No orthopnea, No PND, No claudication, No palpitations , Abdomen: No pain, No nausea, No vomiting, No diarrhea, No constipation, No GI bleeding Musculoskeletal: No joint pain, No muscle pain, No swelling, No calf pain, No problem reported : No dysuria, No urinary frequency, No incontinence, No hematuria Neurologic: No paralysis, No weakness, No numbness/tingling, No vertigo, No balance problems Psychiatric: No depression symptoms, No anhedonism, No anxiety, No insomnia, No substance abuse Heme: No abnormal bleeding/bruising, No clotting problems, No swollen lymph nodes, No night sweats Skin: No rash, No itch, No new/changing skin lesions, No color change, No bleeding Physical exam: General Appearance: WD/WN, no apparent distress, Eyes: normal inspection, PERRL, EOMI, sclerae normal ENT: normal ENT inspection, hearing grossly normal, pharynx normal Neck: supple, no adenopathy, thyroid normal, no JVD, Respiratory/Chest: chest non-tender, decreased breath sounds, no respiratory distress, Cardiovascular: regular rate, rhythm, no JVD, no murmur Abdomen: normal bowel sounds, non tender, soft, no organomegaly, Extremities: normal range of motion, non-tender, normal inspection, no pedal edema, no calf tenderness, normal capillary refill , pelvis stable, joint has no limited range of motion, Neurologic/Psychiatric: synthetic plasterer II-XII nml as tested, no motor/sensory deficits, alert, normal mood/affect, oriented x 3 Skin: normal color, warm/dry, no rash Lymphatic: no adenopathy Labs reviewed: Laboratory Results - last 24 hr 12/01/18 12/01/18 12/01/18 05:35 05:35 05:35 WBC 3.47 L RBC 4.04 L Hgb 11.8 L Hct 38.0 MCV 94.1 MCH 29.2 MCHC 31.1 L RDW Std Deviation 52.3 H RDW Coeff of Rodrigo 15.2 H Plt Count 224 MPV 9.1 Sodium 140 Potassium 3.9 Chloride 106 Carbon Dioxide 28 Anion Gap 6.0 BUN 17 Creatinine 0.87 Est Cr Clr Drug Dosing 74.6 Est GFR ( Amer) 80.5 Est GFR (Non-Af Amer) 69.4 BUN/Creatinine Ratio 19.7 Glucose 96 Estimat Average Glucose 114 Hemoglobin A1c 5.6 Calcium 8.6 Magnesium 2.1 Triglycerides 80 Cholesterol 120 LDL Cholesterol, Calc 61 VLDL Cholesterol, Calc 16 HDL Cholesterol 43 Cholesterol/HDL Ratio 3 Upon discharge today I discussed with patient and neurologist, she has transient ischemic attack, so has atrial fibrillation, however she has been noncompliance with anticoagulation recently. I readdressed that it is so importance of ongoing compliance with Eliquis b/c you are in risk of stroke or TIA. Discussed the risk and benefit of medication, new medication is aspirin 81 mg/day for the time being. Also told her patient's mom in the bedside that she has dissection of vertebral artery per CT angiogram of the neck reveals a short segment right vertebral dissection at the C5-6 level. Follow-up with neurologist. I told patient to follow-up with PCP for other medical conditions such as A. fib , depression, hypertension, GERD, history of gastric bypass, Answered all questions, Total Time Total Time Spent Total Time Spent (In Minutes): 35 Total Time Includes: Examination of the Patient, Discharge Planning, Medication Reconciliation and Communication With Other Providers Discharge Plan Discharge Items Patient Disposition: Home - Self-Care Reason For Visit: TIA Discharge Diagnosis: TIA Condition: Fair Discharge Goals: Decrease discomfort, Diagnostic testing, Improve disease control, Improve function and Increase independence Activity: Resume your previous activity Non-emergency contact: Primary Care Provider and Neurologist Call non-emergency contact if: you have any medication questions Diet: Heart Healthy Addtl Provider Instructions: you have transient ischemic attack you have atrial fibrillation you were noncompliance with anticoagulation recently. it is so importance of ongoing compliance with Eliquis b/c you are in risk of stroke or TIA g new medication is aspirin 81 mg/day for the time being. you have Dissection of vertebral artery per CT angiogram of the neck reveals a short segment right vertebral dissection at the C5-6 level. Follow-up with neurologist you need to follow up with your primary care physician in 1 week, - take medication as instructed, never overdose or any misuse, or take with alcohol, because misuse of medicine may cause organ damage or , call me , or your primary care physician if have questions of discharge medicaitons. - call your primary care physician, or go to local emergency room if has any fever/chill, chest pain, shortness of breathing, nausea/vomiting/abdominal pain , facial droop/slurry speech/local weakness, or if has any questions. - fall precaution - diet as instructed - you need to follow up with your subspecialist, such as Dr. Campbell Risk Factors for Stroke: You can reduce your chances of stroke by working with your medical provider to adopt a healthy lifestyle. Some specific ways to lower your chance of stroke are: * If you are a smoker, now is the time to stop smoking cigarettes * If you are diabetic, improve the control of your blood sugars * Avoid excessive amounts of alcohol * Control high blood pressure * Lose weight if you are overweight * Be sure to lead an active lifestyle * Eat a healthy diet low in salt, cholesterol and fat You should know about other risk factors for stroke that you are unable to control. These include: * Age 55 years or older * Male gender * Certain racial groups: , or / * Family History of Stroke, Mini stroke or Heart Attack * Sickle Cell Disease Follow Up: It is important for you to keep your follow up appointments with your medical provider. Who to Call and When: Medical Emergencies: Call 911 immediately if you experience any of the following warning signs and symptoms of Stroke: * Sudden numbness or weakness of the face, arm or leg, especially on one side of the body * Sudden confusion, trouble speaking or understanding * Sudden trouble seeing in one or both eyes * Sudden trouble walking, dizziness, loss of balance or coordination * Sudden severe headache with no cause Do not delay calling 911 if you experience any warning signs or symptoms of a stroke. Delay in seeking medical attention may affect what treatments can be given to you. . Prescriptions: New aspirin [Ecotrin Low Strength] 81 mg Tablet,Delayed Release (Dr/Ec) 81 mg PO QAM 90 Days Qty: 90 RF: 0 Continue atorvastatin 40 mg tablet 40 mg PO DAILY RF: 0 diltiazem HCl 240 mg capsule,extended release 24hr 240 mg PO DAILY RF: 0 apixaban 5 mg tablet 5 mg PO BID RF: 0 multivitamin Tablet 1 tab PO DAILY RF: 0 lisinopril 20 mg tablet 20 mg PO DAILY RF: 0 omeprazole 20 mg capsule,delayed release(DR/EC) 20 mg PO BID RF: 0 fluoxetine 40 mg capsule 40 mg PO DAILY RF: 0 metoprolol succinate 100 mg tablet extended release 24 hr 100 mg PO BID RF: 0 ranitidine HCl 150 mg tablet 150 mg PO BID PRN (Reason: Heartburn) RF: 0 cholecalciferol (vitamin D3) [Vitamin D3] 400 unit Capsule 800 unit PO DAILY RF: 0 zinc sulfate [Zinc-220] 220 (50) mg Capsule 440 mg PO DAILY RF: 0 calcium carbonate-vitamin D3 [Calcium 600 with Vitamin D3] 600 mg(1,500mg) - 200 unit Tablet 1 tab PO BID RF: 0 Visit Report Forms: [facility] Stand-Alone Forms: [facility] Discharge Orders: Discharge Order (Routine); Ordered 12/01/18 Ordered By: Juventino Hui Admission Data Admit Date/Time: 11/30/18 12:59 Attending Provider: Juventino Hui Admit Provider: Garland Alegria. Primary Care Provider: Donal Guevara Other Providers: Garland Alegria. ; Kacie Rodríguez Eugene J Service: Telemetry
--- NOTE | 2018-12-03 07:40 | Communication Note ---
Date of Service: December 03, 2018 Pt was discharged before Vascular Surgery Consult was done.
--- NOTE | 2018-12-03 08:22 | Consultation ---
Date of Consultation December 03, 2018 History of Present Illness Attending Physician: Juventino Hui MD, PhD, [facility] History of Present Illness I was on vacation during this time. Allergies Allergy/AdvReac Type Severity Reaction Status Date / Time No Known Allergies Allergy Verified 11/30/18 09:28 Home Medications Home Medications Medication Instructions Recorded Confirmed Type apixaban 5 mg PO BID 10/12/18 11/30/18 History atorvastatin 40 mg PO DAILY 10/12/18 11/30/18 History calcium carbonate-vitamin D3 1 tab PO BID 10/12/18 11/30/18 History [Calcium 600 with Vitamin D3] cholecalciferol (vitamin D3) 800 unit PO DAILY 10/12/18 11/30/18 History [Vitamin D3] diltiazem HCl 240 mg PO DAILY 10/12/18 11/30/18 History fluoxetine 40 mg PO DAILY 10/12/18 11/30/18 History lisinopril 20 mg PO DAILY 10/12/18 11/30/18 History metoprolol succinate 100 mg PO BID 10/12/18 11/30/18 History multivitamin 1 tab PO DAILY 10/12/18 11/30/18 History omeprazole 20 mg PO BID 10/12/18 11/30/18 History ranitidine HCl 150 mg PO BID PRN 10/12/18 11/30/18 History zinc sulfate [Zinc-220] 440 mg PO DAILY 10/12/18 11/30/18 History aspirin [Ecotrin Low Strength] 81 mg PO QAM 90 Days #90 tab 12/01/18 Rx Patient History Medical History Atrial fibrillation (Chronic) CHF (congestive heart failure) FH: cholecystectomy GERD (gastroesophageal reflux disease) H/O: hysterectomy Hypertension Pancreatitis Tubal ligation status Surgical History H/O gastric bypass (Resolved) Hx of removal of cyst Family History Other Pancreatic cancer Stomach cancer Social History Current Living Situation: Spouse Other 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 Helps Us Care for You: No Feels Safe at Home: Yes Safety Concerns: Feels Safe At This Time Smoking Status: Former smoker Second Hand Exposure: No Hx Alcohol Use: Yes Alcohol type: beer, wine and hard liquor Alcohol Intake Frequency: a few times a week Hx Substance Use: Yes substance use type: marijuana, crack/cocaine, amphetamines, hallucinogens, sedatives and opiates Substance Use Type Other:: last use was 40 years ago Beliefs That Will Affect Care: None Preferred Language: Palauan Physical Exam 2 Vital Signs (Past 24 Hours): Last Vital Signs Temp 36.7 C 12/01/18 12:40 Pulse 75 12/01/18 12:40 Resp 16 12/01/18 12:40 BP 157/74 H 12/01/18 12:40 Pulse Ox 97 12/01/18 12:40
== END 2018-12-01 13:53 | disposition home or self-care (01) | DRG 308 ==
LOC: ED 08:42 → 2E 12:59 → SUATTDRO 12:59 → 2E 13:34

== ENCOUNTER 2019-12-23 23:12 | Observation (INO) ==
[2019-12-23 23:49] LABS: Basophils # (auto) 0.02 K/uL (0-0.2); Basophils % (auto) 0.2 %; Eosinophils # (auto) 0.12 K/uL (0-0.5); Eosinophils % (auto) 1.5 %; Hemoglobin 11.4 g/dL (12.0-16.0); Immature Granulocytes # (auto) 0.02 K/uL (0.00-0.02); Immature Granulocytes % (auto) 0.2 %; Lymphocytes # (auto) 1.21 K/uL (1.2-3.4); Mean Corpuscular Hgb Conc 30.8 g/dL (32-36); Mean Corpuscular Volume 87.5 fL (80-100); Mean Platelet Volume 8.7 fL (7.4-10.4); Monocytes # (auto) 0.59 K/uL (0.11-0.59); Monocytes % (auto) 7.3 %; Neutrophils # (auto) 6.11 K/uL (1.4-6.5); Neutrophils % (auto) 75.8 %; Platelet Count 295 K/uL (130-400); RDW Coefficient of Variation 16.6 % (11.5-14.5); RDW Standard Deviation 53.2 fL (36.4-46.3); Red Blood Count 4.23 M/uL (4.2-5.4); White Blood Count 8.07 K/uL (4.8-10.8)
[2019-12-24 00:08] LABS: Alanine Aminotransferase 33 U/L (12-78); Albumin Level 3.4 gm/dl (3.4-5.0); Aspartate Aminotransferase 41 U/L (15-37); BUN Creatinine Ratio 22.8 (10-20); Blood Urea Nitrogen 29 mg/dl (7-18); Calcium 8.7 mg/dl (8.5-10.1); Carbon Dioxide 27 mmol/L (21-32); Chloride 108 mmol/L (98-107); Creatinine Clr Calc Pharmacy 50.5 ml/min; Est GFR (African American) 50.6; Est GFR (Non-African American) 43.6; Glucose 102 mg/dl (70-99); Lipase 194 U/L (73-393); Potassium 4.7 mmol/L (3.5-5.1); Sodium 138 mmol/L (136-145)
[2019-12-24 00:13] LABS: Albumin Globulin Ratio 0.8 (0.9-2); Alkaline Phosphatase 121 U/L (45-117); Bilirubin,Total 0.3 mg/dl (0.2-1); Total Protein 7.4 gm/dl (6.4-8.2); Troponin I < 0.015 ng/ml (0-0.045)
--- NOTE | 2019-12-24 02:27 | Emergency Department Note ---
Entered by Estephania Alexander acting as a scribe for History of Present Illness General Chief complaint: Shortness of Breath/Dyspnea Stated complaint: CHEST PAIN/SHORT OF BREATH Time Seen by Provider: 12/23/19 23:13 History of Present Illness Provider complaint: chest pain Onset (ago): hour(s) 2 Location: chest (center) Radiation: non-radiation Pain Consistency: + now resolved Maximum Pain Intensity: 2 Quality: + sharp and + other (pressure) Relieved By: + medication (324 mg Aspirin) Associated symptoms: + shortness of breath and + other (pain started when unloading groceries) The patient is a 69 year old female who presents to the ED with complaints of now resolved chest pain that started 2 hours ago. The patient states that that t he pain was in the center of her chest and it was non-radiating. The patient states that the pain felt like pressure and it was also sharp. The patient states that she became short of breath secondary to the pain. The patient notes that she was unloading groceries when the pain started. The patient states that her pain resolved 20 minutes ago after receiving 324 mg of Aspirin from EMS. Home Medications Home Medications Medication Instructions Recorded Confirmed Type atorvastatin 40 mg PO DAILY 10/12/18 12/24/19 History diltiazem HCl 240 mg PO DAILY 10/12/18 12/24/19 History zinc sulfate [Zinc-220] 440 mg PO DAILY 10/12/18 12/24/19 History metoprolol succinate 100 mg 150 mg PO BID tab 07/09/19 12/24/19 History tablet,extended release 24 hr aspirin 81 mg tablet,delayed 81 mg PO DAILY tab 09/02/19 12/24/19 History release apixaban 5 mg tablet 5 mg PO BID #180 tab 09/23/19 12/24/19 Rx cholecalciferol (vitamin D3) 400 1,000 units PO DAILY cap 10/09/19 12/24/19 History unit capsule furosemide 40 mg tablet 40 mg PO BID #60 tab 10/09/19 12/24/19 Rx fluoxetine 40 mg capsule 40 mg PO DAILY #30 cap 10/20/19 12/24/19 Rx omeprazole 20 mg capsule,delayed 20 mg PO DAILY cap 11/23/19 12/24/19 History release ciprofloxacin HCl 500 mg tablet 500 mg PO BID 12/15/19 12/24/19 History Allergies Allergy/AdvReac Type Severity Reaction Status Date / Time No Known Allergies Allergy Unverified 12/24/19 00:02 Past Med/Surg History Medical History CHF (congestive heart failure) Depression FH: cholecystectomy GERD (gastroesophageal reflux disease) Hypertension Pancreatitis Surgical History H/O gastric bypass (Resolved) H/O: hysterectomy Hx of abdominal surgery Hx of laparoscopy Hx of removal of cyst S/P laparotomy Tubal ligation status Family History Grandmother Diabetes Hypertension Mother Hypertension Heart disease Grandfather Hypertension Stomach cancer Father Pancreatic cancer Hypertension Social History Preferred Language: Mosotho Communication Ability: Effective Visual Impairment: No Limitations Hearing Ability: Normal Mechanical Adjuster Required: No Beliefs That Will Affect Care: None marital status: Current Living Situation: Spouse 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 status: 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 and A total of 10 systems reviewed and were otherwise negative Physical Exam Vital Signs Vital Signs - 24 hr 12/23/19 23:17 12/23/19 23:39 12/24/19 00:00 Temperature 36.7 C Temperature Source Oral Pulse Rate 75 72 75 Pulse Rate from SpO2 Sensor 74 72 Respiratory Rate 22 16 17 Respiratory Effort / Characteristics Non-Labored Respiratory Depth Normal Blood Pressure 133/79 137/73 161/85 H Blood Pressure Mean 97 101 106 Blood Pressure Position Sitting Pulse Oximetry 99 98 99 Oxygen Delivery Method Room Air Room Air Sepsis Recent Fever Within 48 Hours No Sepsis Action Taken by Nursing No Action Required 12/24/19 01:00 12/24/19 01:30 12/24/19 02:00 Temperature Temperature Source Pulse Rate 73 74 72 Pulse Rate from SpO2 Sensor 72 68 62 Respiratory Rate 15 15 16 Respiratory Effort / Characteristics Respiratory Depth Blood Pressure 156/76 H 146/83 H 138/89 Blood Pressure Mean 91 99 107 Blood Pressure Position Pulse Oximetry 98 98 99 Oxygen Delivery Method Sepsis Recent Fever Within 48 Hours Sepsis Action Taken by Nursing Constitutional: Vital signs reviewed. Eyes: Pupils are equal round reactive to light. Conjunctiva are noninjected. ENT: Pharynx is clear without erythema or exudate. Mucous membranes are moist. Neck supple without meningeal signs. Respiratory: Clear to auscultation bilaterally. Breath sounds are equal bilaterally. Cardiovascular: Regular rate and irregularly irregular rhythm. No rubs or gallops. GI: Soft, nondistended and nontender. Bowel sounds are present. Musculoskeletal: Bilateral lower extremity edema, left greater than right. No lower extremity tenderness. No significant tenderness to palpation of chest. Integumentary: No cyanosis. Neurological: The patient is awake and alert. No focal deficits. Psychiatric: Normal affect. Course Course 2316: Past medical records reviewed. The patient was evaluated in room A03. A complete history and physical exam was performed. 0021: I reevaluated the patient and she is asymptomatic. I discussed the patient's test results with her. I recommended she stay in the hospital and she is agreeable. 0026: I discussed the patient's case with Dr. Somers [facility], Hospitalist. He will evaluate the patient for further management. Consultations Consultation #1: I discussed the patient's case with Dr. Somers [facility], Hospitalist. He will evaluate the patient for further management. Time: 00:26 Administered Medications Medical Decision Making Differential Diagnosis Differentials include unstable angina, [place], pleurisy, pneumothorax, pneumonia. Medical Records Attestation: I reviewed the patient's medical records. The patient follows with the heart failure clinic. She was last seen there on 11/23/2019. The patient has chronic diastolic heart failure. Home Medications Current Medication List: was personally reviewed by me Laboratory Data Attestation: I reviewed the patient's lab results. Result diagrams: 12/23/19 23:28 12/23/19 23:28 Lab Results 12/23/19 12/23/19 Range/Units 23:28 23:28 WBC 8.07 (4.8-10.8) K/uL RBC 4.23 (4.2-5.4) M/uL Hgb 11.4 L (12.0-16.0) g/dL Hct 37.0 (37-47) % MCV 87.5 (80-100) fL MCH 27.0 (25-34) pg MCHC 30.8 L (32-36) g/dL RDW Std Deviation 53.2 H (36.4-46.3) fL RDW Coeff of Rodrigo 16.6 H (11.5-14.5) % Plt Count 295 (130-400) K/uL MPV 8.7 (7.4-10.4) fL Immature Gran % (Auto) 0.2 % Neut % (Auto) 75.8 % Lymph % (Auto) 15.0 % [place] % (Auto) 7.3 % Eos % (Auto) 1.5 % Baso % (Auto) 0.2 % Immature Gran # (Auto) 0.02 (0.00-0.02) K/uL Neut # (Auto) 6.11 (1.4-6.5) K/uL Lymph # (Auto) 1.21 (1.2-3.4) K/uL [place] # (Auto) 0.59 (0.11-0.59) K/uL Eos # (Auto) 0.12 (0-0.5) K/uL Baso # (Auto) 0.02 (0-0.2) K/uL Sodium 138 (136-145) mmol/L Potassium 4.7 (3.5-5.1) mmol/L Chloride 108 H (98-107) mmol/L Carbon Dioxide 27 (21-32) mmol/L Anion Gap 3.0 (3-11) BUN 29 H (7-18) mg/dl Creatinine 1.27 H (0.6-1.2) mg/dl Est Cr Clr Drug Dosing 50.5 ml/min Est GFR ( Amer) 50.6 Est GFR (Non-Af Amer) 43.6 BUN/Creatinine Ratio 22.8 H (10-20) Glucose 102 H (70-99) mg/dl Calcium 8.7 (8.5-10.1) mg/dl Total Bilirubin 0.3 (0.2-1) mg/dl AST 41 H (15-37) U/L ALT 33 (12-78) U/L Alkaline Phosphatase 121 H (45-117) U/L Troponin I < 0.015 (0-0.045) ng/ml Total Protein 7.4 (6.4-8.2) gm/dl Albumin 3.4 (3.4-5.0) gm/dl Globulin 4.0 (2.5-4.0) gm/dl Albumin/Globulin Ratio 0.8 L (0.9-2) Lipase 194 (73-393) U/L Imaging Data Attestation: I personally reviewed and interpreted this imaging study as f lars: My Impression: No acute cardiopulmonary process, no pneumonia, no effusion. ECG Data Attestation: I personally reviewed and interpreted this ECG as follows: Indication: + chest pain Rate (beats per minute): 72 Rhythm: + atrial fibrillation ECG ST segments: no ST depression and no ST elevation ECG Findings: + Other (low voltage QRS); no PVCs Blood Pressure Blood Pressure Findings: Elevated blood pressure Blood Pressure Disposition: further management by hospitalist MDM Narrative I did evaluate the patient as noted above. The patient is presenting with chest discomfort described as a pressure and sharp pain. It is now resolved. She did receive aspirin in the ambulance. IV access was established. The patient was placed on a continuous environmental monitoring specialist. I did order and personally review the patient's 12-lead EKG as described above. Her twelve-lead EKG does not demonstrate any acute ischemia. She does have atrial fibrillation and is on Eliquis. I did order and personally reviewed the images of the patient's chest x-ray as described above. Per my interpretation this is unremarkable without acute cardiopulmonary process. I did order and review the patient's blood work as noted in the electronic medical record. CBC demonstrates a mild anemia. Her creatinine is 1.27 which is slightly elevated above her baseline. She does state that she has not been taking her Lasix but has been taking her old prescription for triamterene instead. Her troponin is negative. I did discuss the test results with her. She is not having any recurrent chest pain. I did recommend hospitalization for further care and evaluation. The manager of case management and hospitalist were informed. Impression & Plan Precordial chest pain, Anticoagulated, Elevated serum creatinine Discharge Plan Visit Data Chief Complaint: Shortness of Breath/Dyspnea Stated Complaint: CHEST PAIN/SHORT OF BREATH ED Provider: Robert,Ray S. Discharge Problem: Precordial chest pain, Anticoagulated, Elevated serum creatinine Patient Disposition: Being Evaluated by Hospitalist Forms Stand Alone Forms: My [facility] Prescriptions Prescriptions: No Action Eliquis 5 mg tablet 5 mg PO BID Qty: 180 RF: 3 fluoxetine 40 mg capsule 40 mg PO DAILY Qty: 30 RF: 0 metoprolol succinate 100 mg tablet extended release 24 hr 150 mg PO BID RF: 0 furosemide 40 mg tablet 40 mg PO BID Qty: 60 RF: 2 omeprazole 20 mg capsule,delayed release(DR/EC) 20 mg PO DAILY RF: 0 ciprofloxacin HCl 500 mg tablet 500 mg PO BID RF: 0 aspirin 81 mg tablet,delayed release (DR/EC) 81 mg PO DAILY RF: 0 atorvastatin 40 mg tablet 40 mg PO DAILY RF: 0 diltiazem HCl 240 mg capsule,extended release 24hr 240 mg PO DAILY RF: 0 zinc sulfate [Zinc-220] 220 (50) mg Capsule 440 mg PO DAILY RF: 0 cholecalciferol (vitamin D3) [Vitamin D3] 400 unit capsule 1,000 units PO DAILY RF: 0 Referrals Referrals: Donal Guevara MD [Primary Care Provider] - The scribe's documentation has been prepared under my direction and personally reviewed by me in its entirety. I confirm that the note above accurately reflects all work, treatment, procedures, and medical decision making performed by me.
[2019-12-24] MEDS ORDERED: ONDANSETRON INJ 2 MG/ML 2 ML VIAL IV PRN (03:47)
[2019-12-24] MEDS ORDERED: ACETAMINOPHEN 325 MG TAB PO PRN (03:47)
[2019-12-24] MEDS ORDERED: MoRPHine SULFATE 2 MG/ML CARP IV PRN (03:47)
[2019-12-24] MEDS ORDERED: ALUMINUM/MAGNESIUM SUSP 30 ML UDC PO PRN (03:47)
[2019-12-24] MEDS ORDERED: MAGNESIUM HYDROXIDE SUSP 30 ML UDC PO PRN (03:47)
--- NOTE | 2019-12-24 03:59 | History & Physical Report ---
Date of Service December 24, 2019 Assessment & Plan (1) Precordial chest pain: Precordial chest pains/permanent atrial fibrillation- The patient will be admitted to telemetry for serial cardiac enzymes, serial EKG's, cardiac rhythm monitoring and a 2-D echocardiogram with Dopplers. Continue apixaban 5 mg p.o. twice daily, aspirin 81 mg p.o. daily, diltiazem 240 mg p.o. daily, furosemide 40 mg p.o. twice daily, and metoprolol succinate 150 mg p.o. twice daily Consult her i&c technician Dr. Brewer Present on Admission?: Yes (2) Permanent atrial fibrillation: See above Present on Admission?: Yes (3) Hyperlipidemia LDL goal <70: Continue atorvastatin 40 mg p.o. daily. Present on Admission?: Yes (4) GERD (gastroesophageal reflux disease): Continue omeprazole 20 mg p.o. daily Present on Admission?: Yes (5) Anticoagulant long-term use: On apixaban as noted above. Present on Admission?: Yes (6) Depression: Continue fluoxetine 40 mg p.o. daily Present on Admission?: Yes History of Present Illness Chief Complaint: The patient reports acute onset of right parasternal chest discomfort, shortness of breath and dyspnea on exertion while carrying groceries into her house. Primary Care Provider: Christopher Guevara MD The patient is a 69-year-old female with a past medical history including hypertension, hyperlipidemia, TIA, sleep apnea, recurrent pancreatitis, permanent atrial fibrillation, mesenteric mass and fibrosis, cholangitis, history of C. difficile, CHF, vertebral artery dissection and long-term anticoagulant use. She presents to the emergency department due to acute onset of right parasternal chest pain of 30 minutes duration, that was accompanied by shortness of breath and dyspnea on exertion while carrying groceries into the house. The symptoms did resolve on their own, have not returned, and have not occurred prior to this event. She reports that she had her triamterene/HCTZ discontinued, and was started on Lasix 4 weeks ago at the heart failure clinic. However, she reports that her Lasix was in her truck, which is now at the shop, and has not had the Lasix for 1 week, and therefore went back to taking the triamterene/HCTZ. Allergies Allergy/AdvReac Type Severity Reaction Status Date / Time No Known Allergies Allergy Unverified 12/24/19 00:02 Home Medications Home Medications Medication Instructions Recorded Confirmed Type atorvastatin 40 mg PO DAILY 10/12/18 12/24/19 History diltiazem HCl 240 mg PO DAILY 10/12/18 12/24/19 History zinc sulfate [Zinc-220] 440 mg PO DAILY 10/12/18 12/24/19 History metoprolol succinate 100 mg 150 mg PO BID tab 07/09/19 12/24/19 History tablet,extended release 24 hr aspirin 81 mg tablet,delayed 81 mg PO DAILY tab 09/02/19 12/24/19 History release apixaban 5 mg tablet 5 mg PO BID #180 tab 09/23/19 12/24/19 Rx cholecalciferol (vitamin D3) 400 1,000 units PO DAILY cap 10/09/19 12/24/19 History unit capsule furosemide 40 mg tablet 40 mg PO BID #60 tab 10/09/19 12/24/19 Rx fluoxetine 40 mg capsule 40 mg PO DAILY #30 cap 10/20/19 12/24/19 Rx omeprazole 20 mg capsule,delayed 20 mg PO DAILY cap 11/23/19 12/24/19 History release ciprofloxacin HCl 500 mg tablet 500 mg PO BID 12/15/19 12/24/19 History Past Med/Surg History Medical History CHF (congestive heart failure) Depression FH: cholecystectomy GERD (gastroesophageal reflux disease) Hypertension Pancreatitis Surgical History H/O gastric bypass (Resolved) H/O: hysterectomy Hx of abdominal surgery Hx of laparoscopy Hx of removal of cyst S/P laparotomy Tubal ligation status Family History Grandmother Diabetes Hypertension Mother Hypertension Heart disease Grandfather Hypertension Stomach cancer Father Pancreatic cancer Hypertension Social History Preferred Language: Bhutanese Communication Ability: Effective Visual Impairment: No Limitations Hearing Ability: Normal 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: No Beliefs That Will Affect Care: None marital status: Current Living Situation: Spouse 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 status: 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 Feels Safe at Home: Yes Smoking Status: Never smoker Second Hand Exposure: No ; Hx Alcohol Use: No Hx Substance Use: Yes substance use type: marijuana, crack/cocaine, amphetamines, hallucinogens, sedatives and opiates Substance Use Type Other:: last use was 40 years ago Seatbelt Use: always Sunscreen Use: No Review of Systems Review of Systems: The patient denies shortness of breath, cough, sore throat, fevers, chills, sweats, fatigue, nausea, vomiting, diarrhea , constipation, abdominal pain, pelvic pain, blood in urine or stool, dysuria, urinary frequency or urgency, lightheadedness, dizziness, headache, memory loss, loss of consciousness, rash, abnormal bruising or bleeding, focal or generalized weakness, numbness or tingling in arms or legs, generalized arthralgias or myalgias, back or neck pain, or night sweats. The review of systems is otherwise negative other than for that already noted above, and at least 10 systems have been reviewed. Physical Exam Physical Exam: The patient is awake, alert and oriented 3, well developed and well nourished, normocephalic and atraumatic, lying in bed and in no acute distress. HEENT--PERRL, EOMI, mucous membranes and oropharynx dry. Neck--supple. No JVD. No bruits. Thyroid normal, trachea midline, no adenopathy. Heart--normal S1 and S2. No murmurs, rubs or gallops. Lungs--clear bilaterally, no respiratory distress, no accessory muscle use. Abdomen--normal bowel sounds and soft. Nontender. Nondistended. Extremities--no cyanosis or clubbing. Trace bilateral pretibial pitting edema. Dermatologic--normal skin turgor, normal color, no abnormal lymph nodes, no rash. Neurologic--cranial nerves II through XII grossly intact. Rheumatologic--normal range of motion. Psychiatric--normal affect. Results & Data Vital Signs (Past 12 Hours) Vital Signs Temp Pulse Resp BP Pulse Ox 12/24/19 03:00 67 14 143/89 H 98 12/24/19 02:30 72 17 141/101 H 98 12/24/19 02:00 72 16 138/89 99 12/24/19 01:30 74 15 146/83 H 98 12/24/19 01:00 73 15 156/76 H 98 12/24/19 00:00 75 17 161/85 H 99 12/23/19 23:39 72 16 137/73 98 12/23/19: 98.1 F 75 22 133/79 99 Laboratory Results Laboratory Results WBC 8.07 K/uL (4.8-10.8) 12/23/19: RBC 4.23 M/uL (4.2-5.4) 12/23/19: Hgb 11.4 g/dL (12.0-16.0) L 12/23/19: Hct 37.0 % (37-47) 12/23/19: MCV 87.5 fL (80-100) 12/23/19: MCH 27.0 pg (25-34) 12/23/19: MCHC 30.8 g/dL (32-36) L 12/23/19: RDW Std Deviation 53.2 fL (36.4-46.3) H 12/23/19: RDW Coeff of Rodrigo 16.6 % (11.5-14.5) H 12/23/19: Plt Count 295 K/uL (130-400) 12/23/19: MPV 8.7 fL (7.4-10.4) 12/23/19: Immature Gran % (Auto) 0.2 % 12/23/19: Neut % (Auto) 75.8 % 12/23/19: Lymph % (Auto) 15.0 % 12/23/19: [place] % (Auto) 7.3 % 12/23/19: Eos % (Auto) 1.5 % 12/23/19: Baso % (Auto) 0.2 % 12/23/19: Immature Gran # (Auto) 0.02 K/uL (0.00-0.02) 12/23/19: Neut # (Auto) 6.11 K/uL (1.4-6.5) 12/23/19: Lymph # (Auto) 1.21 K/uL (1.2-3.4) 12/23/19: [place] # (Auto) 0.59 K/uL (0.11-0.59) 12/23/19 23: Eos # (Auto) 0.12 K/uL (0-0.5) 12/23/19 23: Baso # (Auto) 0.02 K/uL (0-0.2) 12/23/19: Sodium 138 mmol/L (136-145) 12/23/19: Potassium 4.7 mmol/L (3.5-5.1) 12/23/19: Chloride 108 mmol/L (98-107) H 12/23/19: Carbon Dioxide 27 mmol/L (21-32) 12/23/19: Anion Gap 3.0 (3-11) 12/23/19: BUN 29 mg/dl (7-18) H 12/23/19: Creatinine 1.27 mg/dl (0.6-1.2) H 12/23/19: Est Cr Clr Drug Dosing 50.5 ml/min 12/23/19: Est GFR ( Amer) 50.6 12/23/19: Est GFR (Non-Af Amer) 43.6 12/23/19: BUN/Creatinine Ratio 22.8 (10-20) H 12/23/19: Glucose 102 mg/dl (70-99) H 12/23/19: Calcium 8.7 mg/dl (8.5-10.1) 12/23/19: Total Bilirubin 0.3 mg/dl (0.2-1) 12/23/19: AST 41 U/L (15-37) H 12/23/19: ALT 33 U/L (12-78) 12/23/19: Alkaline Phosphatase 121 U/L (45-117) H 12/23/19: Troponin I < 0.015 ng/ml (0-0.045) 12/23/19: Total Protein 7.4 gm/dl (6.4-8.2) 12/23/19: Albumin 3.4 gm/dl (3.4-5.0) 12/23/19: Globulin 4.0 gm/dl (2.5-4.0) 12/23/19 23:28 Albumin/Globulin Ratio 0.8 (0.9-2) L 12/23/19 23:28 Lipase 194 U/L (73-393) 12/23/19 23:28 Code Status & VTE Plan Code Status Full code VTE Prophylaxis Plan VTE Prophylaxis will be ordered: Yes PG Care Time/CCT Total # of Minutes Spent Total Time Spent with Patient: Total time spent is greater than 50% in coordination of care (as documented) at patient's floor/unit and/or counseling patient: (1) GERD (gastroesophageal reflux disease) Esophagitis presence: without esophagitis Qualified Code(s): K21.9 - Gastro- esophageal reflux disease without esophagitis
[2019-12-24] MEDS ORDERED: PNEUMOCOCCAL POLYSACCHARIDES 25 MCG/0.5 ML VIAL/SYR IM ONE (04:15)
[2019-12-24] MEDS ORDERED: PNEUMOCOCCAL ADMINISTRATION CHARGE ONE (04:15)
[2019-12-24 04:20] LABS: Basophils # (auto) 0.01 K/uL (0-0.2); Basophils % (auto) 0.2 %; Eosinophils % (auto) 1.8 %; Hematocrit (blood only) 36.1 % (37-47); Hemoglobin 11.4 g/dL (12.0-16.0); Immature Granulocytes # (auto) 0.01 K/uL (0.00-0.02); Immature Granulocytes % (auto) 0.2 %; Lymphocytes # (auto) 1.29 K/uL (1.2-3.4); Lymphocytes % (auto) 22.6 %; Mean Corpuscular Hemoglobin 27.2 pg (25-34); Mean Corpuscular Hgb Conc 31.6 g/dL (32-36); Mean Corpuscular Volume 86.2 fL (80-100); Mean Platelet Volume 8.7 fL (7.4-10.4); Monocytes # (auto) 0.44 K/uL (0.11-0.59); Monocytes % (auto) 7.7 %; Neutrophils # (auto) 3.85 K/uL (1.4-6.5); Neutrophils % (auto) 67.5 %; Platelet Count 284 K/uL (130-400); RDW Coefficient of Variation 16.7 % (11.5-14.5); Red Blood Count 4.19 M/uL (4.2-5.4)
[2019-12-24 04:37] LABS: Albumin Level 3.3 gm/dl (3.4-5.0); BUN Creatinine Ratio 23.6 (10-20); Calcium 8.8 mg/dl (8.5-10.1); Creatinine Clr Calc Pharmacy 57.5 ml/min; Est GFR (African American) 60.2; Est GFR (Non-African American) 51.9; Magnesium 2.2 mg/dl (1.8-2.4); Potassium 4.7 mmol/L (3.5-5.1)
[2019-12-24 04:40] LABS: Albumin Globulin Ratio 0.8 (0.9-2); Bilirubin,Total 0.4 mg/dl (0.2-1); Total Protein 7.3 gm/dl (6.4-8.2)
--- NOTE | 2019-12-24 08:00 | XRay Report ---
XR chest 1V portable HISTORY: Atypical Chest Pain COMPARISON: Chest 11/30/2018. FINDINGS: There are low lung volumes. The heart remains mildly enlarged. No focal lung consolidations to suggest pneumonia. No evidence for pulmonary edema. Stable right hilar prominence. No pleural eff usions. No pneumothorax. IMPRESSION: No significant change compared to the prior study. No acute process. ACT 112: Negative or not required by law. Electronically signed by: Sky Gardner M.D. 12/24/2019 7:59 AM
[2019-12-24] MEDS ORDERED: CHOLECALCIFEROL 1,000 UNITS 25 MCG TAB PO SCH (09:00)
[2019-12-24] MEDS ORDERED: PANTOprazole 40 MG TAB PO SCH (09:00)
[2019-12-24] MEDS ORDERED: CIPROFLOXACIN 500 MG TAB PO SCH (09:00)
[2019-12-24] MEDS ORDERED: ATORVASTATIN 40 MG TAB PO SCH (09:00)
[2019-12-24] MEDS ORDERED: METOPROLOL SUCC 50MG EXT REL TAB PO SCH (09:00)
[2019-12-24] MEDS ORDERED: ASPIRIN 81 MG ECTAB PO SCH (09:00)
[2019-12-24] MEDS ORDERED: APIXABAN 5 MG TABLET PO SCH (09:00)
[2019-12-24] MEDS ORDERED: dilTIAZem HCL 240 MG CAPCR PO SCH (09:00)
[2019-12-24] MEDS ORDERED: ZINC SULFATE 220 MG CAPSULE PO SCH (09:00)
[2019-12-24] MEDS ORDERED: FLUOXETINE HCL 20 MG CAP PO SCH (09:00)
[2019-12-24] MEDS: FUROSEMIDE 40 MG TAB PO SCH ×2 (09:04→16:32)
--- NOTE | 2019-12-24 12:15 | Cardiology Consultation ---
Date of Consultation December 24, 2019 Assessment & Plan (1) Chest pain: Given prodrome of GI symptoms with severe chest/epigastric pain without associated enzyme elevation or ECG changes, suspect non-cardiac etiology, possibly recurrent pancreatitis. Would check repeat lipase and check amylase. She has a third set of cardiac enzymes to around noon, if these are negative as well will proceed with a stress echocardiogram to further exclude myocardial ischemia. Given her recent dyspnea on exertion and the high dose of negative chronic troponin required for rate control, this will also allow for his assessment of her hemodynamic response to physical activity. Based on results, medications can be further titrated. Case discussed with Dr. Bell. (2) Chronic diastolic congestive heart failure: Her leg edema is minimal and she is not obviously volume overloaded by neck veins or chest x-ray. However, would recommend that she be continued on furosemide rather than Dyazide as a daily diuretic to maintain current volume status. She does have a weight based sliding scale diuretic regimen to fall at home. (3) Permanent atrial fibrillation: Continue anticoagulation with apixaban. As noted, will assess rate control with stress echo and adjust chronotropic medications accordingly. (4) Anticoagulant long-term use: She is on apixaban for her permanent atrial fibrillation. She is also on low-dose aspirin, this was started at time of a TIA. Since she has not had bleeding problems, reasonable to continue. (5) Hypertension: BP normotensive currently. (6) H/O gastric bypass: History of Present Illness Reason for Consultation: Chest Pain Attending Physician: Isra Bell, DO History of Present Illness 69-year-old woman, whom I follow for outpatient cardiology, with permanent atrial fibrillation and chronic diastolic congestive heart failure but no known history of coronary artery disease admitted last evening with severe chest pain. Her cardiac history is notable for him being permanent atrial fibrillation after 2 separate a pulmonary venous ablation procedures years apart, she is on apixaban for anticoagulation and both diltiazem and metoprolol for rate control. She also has history of chronic diastolic congestive heart failure, she had been on daily Dyazide but was recently switched to furosemide due to increasing w eight/edema. Unfortunately, she ran out of furosemide and reverted to Dyazide over the past week, as result she notes her weight is again increasing and her mild leg edema is more pronounced. She has noted increased dyspnea exertion over the past several weeks but no orthopnea or PND. She has a complex GI history including remote gastric bypass, recurrent pancreatitis, cholangitis, mesenteric mass with fibrosis, C diff colitis. She had an extensive workup at [place] and had a symptomatic improvement, but in recent weeks she has again been noting lower abdominal pain occurring unpredictably in intermittently. She is also noted postprandial nausea with occasional nonbloody emesis. These are similar to her long-term symptoms. Last evening, while carrying groceries from the car she developed the sudden severe lower sternal/epigastric region pain which was nonradiating. She denied any diaphoresis, lightheadedness, presyncope, or syncope. She did note there was difficult to catch her breath. No subjective palpitations. Symptoms resolved in about half an hour and have not recurred. She was admitted through the emergency department, ECG shows atrial fibrillation with no ischemic changes and troponin x2 her was unmeasurably low. She was comfortable at the time of my evaluation, she had just deep small breakfast had no GI symptoms and noted no dyspnea or chest pain at rest. Allergies Allergy/AdvReac Type Severity Reaction Status Date / Time No Known Allergies Allergy Unverified 12/24/19 00:02 Home Medications Home Medications Medication Instructions Recorded Confirmed Type atorvastatin 40 mg PO DAILY 10/12/18 12/24/19 History diltiazem HCl 240 mg PO DAILY 10/12/18 12/24/19 History zinc sulfate [Zinc-220] 440 mg PO DAILY 10/12/18 12/24/19 History metoprolol succinate 100 mg 150 mg PO BID tab 07/09/19 12/24/19 History tablet,extended release 24 hr aspirin 81 mg tablet,delayed 81 mg PO DAILY tab 09/02/19 12/24/19 History release apixaban 5 mg tablet 5 mg PO BID #180 tab 09/23/19 12/24/19 Rx cholecalciferol (vitamin D3) 400 1,000 units PO DAILY cap 10/09/19 12/24/19 History unit capsule furosemide 40 mg tablet 40 mg PO BID #60 tab 10/09/19 12/24/19 Rx fluoxetine 40 mg capsule 40 mg PO DAILY #30 cap 10/20/19 12/24/19 Rx omeprazole 20 mg capsule,delayed 20 mg PO DAILY cap 11/23/19 12/24/19 History release ciprofloxacin HCl 500 mg tablet 500 mg PO BID 12/15/19 12/24/19 History Patient History Medical History (Updated 12/24/19 @ 12:38 by Trace Brewer MD) Chronic diastolic congestive heart failure Depression FH: cholecystectomy GERD (gastroesophageal reflux disease) Hypertension Pancreatitis Recurrent pancreatitis (Inactive) Surgical History H/O gastric bypass (Resolved) H/O: hysterectomy Hx of abdominal surgery Hx of laparoscopy Hx of removal of cyst S/P laparotomy Tubal ligation status Family History Grandmother Diabetes Hypertension Mother Hypertension Heart disease Grandfather Hypertension Stomach cancer Father Pancreatic cancer Hypertension Social History Preferred Language: Korean Communication Ability: Effective Visual Impairment: No Limitations Hearing Ability: Normal Humanities Division Chair Required: No Beliefs That Will Affect Care: None marital status: Current Living Situation: Spouse 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 status: retired current occupation: [employer] Other 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 Helps Us Care for You: No Feels Safe at Home: Yes Safety Concerns: Feels Safe At This Time Smoking Status: Unknown if ever smoked Hx Alcohol Use: No Hx Substance Use: No Seatbelt Use: always Sunscreen Use: No Review of Systems Constitutional: + fatigue and + weight gain; no fever and no chills Eyes: no problem reported Ear, Nose, Mouth, Throat: no problem reported Respiratory: + dyspnea; no cough Cardiovascular: as per Subjective / HPI Gastrointestinal: + abdominal pain and + change in stools Genitourinary: no problem reported Musculoskeletal: no myalgia Integumentary: no rash and no new lesions Neurologic: no falls and no syncope Psychiatric: no problem reported Hematologic / Lymphatic: no easy bleeding and no easy bruising Physical Exam Physical Exam: No distress. Skin: No unusual lesions or ecchymosis. HEENT: Unremarkable. Neck: Jugular venous pulse just above the clavicle at 90, no carotid bruits. Lungs: Clear and equal breath sounds bilaterally. No wheezing or crackles. Cardiac: Irregular rhythm without obvious murmur gallop. Abdomen: Minimal epigastric tenderness, nondistended. Extremities: Nontender with trace to 1+ pretibial edema. Intact peripheral pulses. Neurologic: Normal affect, nonfocal Results & Data Vital Signs (Past 12 Hours) Vital Signs Temp Pulse Pulse Resp BP BP Pulse Ox 12/24/19 11:16 97.9 F 66 18 138/80 95 12/24/19 07:40 97.7 F 71 18 142/94 H 97 12/24/19 03:30 98.2 F 62 20 161/75 H 98 12/24/19 03:00 67 14 143/89 H 98 12/24/19 02:30 72 17 141/101 H 98 12/24/19 02:00 72 16 138/89 99 12/24/19 01:30 74 15 146/83 H 98 12/24/19 01:00 73 15 156/76 H 98 Laboratory Results 12/23/19 12/24/19 12/24/19 23:28 04:01 04:01 BUN 26 H Creatinine 1.10 Troponin I < 0.015 < 0.015 Lipase 194 Diagnostic Findings Echocardiogram April 2019 showed normal systolic function (EF 60-65%), mild mitral tricuspid regurgitation with mildly right ventricular systolic pressure. Chest x-ray was unremarkable. ECG Additional Comments: ECG showed atrial fibrillation with controlled ventricular response (70 to be p.m.), unremarkable ST and T-wave segments. No change compared with prior. PG Care Time/CCT Total # of Minutes Spent Total Time Spent with Patient: Total time spent is greater than 50% in coordination of care (as documented) at patient's floor/unit and/or counseling patient: (1) Hypertension Hypertension type: essential hypertension Qualified Code(s): I10 - Essential (primary) hypertension
--- NOTE | 2019-12-24 21:27 | Discharge Summary ---
Date of Service December 24, 2019 Admission HPI Per Admitting Provider The patient is a 69-year-old female with a past medical history including hypertension, hyperlipidemia, TIA, sleep apnea, recurrent pancreatitis, permanent atrial fibrillation, mesenteric mass and fibrosis, cholangitis, history of C. difficile, CHF, vertebral artery dissection and long-term anticoagulant use. She presents to the emergency department due to acute onset of right parasternal chest pain of 30 minutes duration, that was accompanied by shortness of breath and dyspnea on exertion while carrying groceries into the house. The symptoms did resolve on their own, have not returned, and have not occurred prior to this event. She reports that she had her triamterene/HCTZ discontinued, and was started on Lasix 4 weeks ago at the heart failure clinic. However, she reports that her Lasix was in her truck, which is now at the shop, and has not had the Lasix for 1 week, and therefore went back to taking the triamterene/HCTZ. Principal Diagnosis Chest pain Discharge Exam Constitutional WD/WN, vitals as above + overweight Eyes PERRL, conjunctivae normal, anicteric sclerae ENMT external ear and nose normal, oropharynx normal Neck trachea midline, no thyromegaly Respiratory normal respiratory effort, lungs clear to auscultation Cardiovascular RRR, no murmur, no edema Gastrointestinal (Abdomen) normal bowel sounds, soft, nontender, no hepatosplenomegaly Musculoskeletal no cyanosis or clubbing, extremities motor strength 5/5 Skin no rashes, warm and dry Neurologic patellar DTR's 2+ bilat, sensation intact and PERRL, EOMI, accommodation nl, no face palsy, no dysarthria Psychiatric A+Ox3, euthymic affect Lymphatic no cervical or axillary lymphadenopathy Discharge Data Allergies Allergy/AdvReac Type Severity Reaction Status Date / Time No Known Allergies Allergy Unverified 12/24/19 00:02 Consultations 12/24/19 00:26 ED Decision to Admit Stat 12/24/19 03:47 Consult Cardiology Routine Consult Case Management - Discharge Planning Routine Hospital Course (1) Precordial chest pain: troponin negative x 3 sets, no ischemic changes on EKG normal resting 2D echocardiogram evaluated by Dr. Brewer, he recommended exercise stress echo patient performed suboptimally but she never had chest pain, no changes on EKG discussed with Dr. Brewer, he feels that she is over medicated with her atrial fibrillation her HR could not even get above 80 on exertion he recommends decreasing Toprol to 50mg twice a day will follow up in the office, she knows to keep track of her HR at home (2) Permanent atrial fibrillation: continue Eliquis continue Diltiazem 240mg REDUCE Toprol to 50mg twice a day per Dr. Brewer's recommendations (3) Hyperlipidemia LDL goal <70: Continue atorvastatin 40 mg p.o. daily. (4) GERD (gastroesophageal reflux disease): change to Protonix 40mg daily as her symptoms sounded like GERD (5) Anticoagulant long-term use: On apixaban as noted above. (6) Depression: Continue fluoxetine 40 mg p.o. daily Total Time Total Time Spent Total Time Spent (In Minutes): 33 minutes Total Time Includes: Examination of the Patient, Discharge Planning, Medication Reconciliation and Communication With Other Providers (Dr. Brewer) Discharge Plan Discharge Items Patient Disposition: Home - Self-Care Reason For Visit: EXERTIONAL CHEST PAIN Discharge Diagnosis: Chest pain, non-cardiac Condition on Discharge: Good Goals: reduce metoprolol to 50mg twice a day trial of Protonix 40mg daily to prevent recurrence of symptoms Activity: Resume your previous activity Non-emergency contact: Primary Care Provider and Front Attendant Call non-emergency contact if: you have any medication questions, your symptoms worsen, your pain is worsening and you have a fever Follow-up/Referrals: Donal Guevara MD [Primary Care Provider] - Diet: Heart Healthy Addtl Attending Provider Instructions: Medications: - TOPROL: note that Dr. Brewer recommends reducing dose to 50mg twice a day from 150mg twice a day - PROTONIX: 40mg daily, this replaces omeprazole Chest pain no evidence of acute heart attack as heart enzymes were negative and no changes on EKG echocardiogram shows preserved ejection fraction, no wall motion abnormalities on stress test, you were unable to get your heart rate above 80, likely due to medications Dr. Brewer recommends reducing your Toprol to 50mg twice a day from 150mg twice a day he feels that you are likely over medicated continue the Diltiazem at 240mg and the Eliquis for anticoagulation Epigastric pain certainly could be reflux, recommend trying Protonix over omeprazole take daily for the next 1-2 weeks to see if there are no further symptoms please keep track of when you get symptoms, if if correlate with any specific type of food lipase and liver enzymes were noted to be normal on admission FOLLOW UP - please call for appt with Dr. Guevara to be seen in one week for hospital follow up Pending Studies at Discharge: No Stand-Alone Forms: My [facility], Smoking Cessation Medications and DC Order Prescriptions: New pantoprazole 40 mg Tablet,Delayed Release (Dr/Ec) 40 mg PO DAILY 30 Days Qty: 30 RF: 1 metoprolol succinate [Toprol XL] 50 mg tablet extended release 24 hr 50 mg PO BID Qty: 60 RF: 1 Continued Eliquis 5 mg tablet 5 mg PO BID Qty: 180 RF: 3 fluoxetine 40 mg capsule 40 mg PO DAILY Qty: 30 RF: 0 furosemide 40 mg tablet 40 mg PO BID Qty: 60 RF: 2 ciprofloxacin HCl 500 mg tablet 500 mg PO BID RF: 0 aspirin 81 mg tablet,delayed release (DR/EC) 81 mg PO DAILY RF: 0 atorvastatin 40 mg tablet 40 mg PO DAILY RF: 0 diltiazem HCl 240 mg capsule,extended release 24hr 240 mg PO DAILY RF: 0 zinc sulfate [Zinc-220] 220 (50) mg Capsule 440 mg PO DAILY RF: 0 cholecalciferol (vitamin D3) [Vitamin D3] 400 unit capsule 1,000 units PO DAILY RF: 0 Discontinued metoprolol succinate 100 mg tablet extended release 24 hr 150 mg PO BID RF: 0 omeprazole 20 mg capsule,delayed release(DR/EC) 20 mg PO DAILY RF: 0 Discharge Orders: Discharge Order (Routine); Ordered 12/24/19 Ordered By: Isra Bell Admission Data Admit Date/Time: 12/24/19 01:11 Attending Provider: Isra Bell Admit Provider: Jose Segal Primary Care Provider: Donal Guevara Other Providers: Jose Segal ; Trace Brewer Other Interventions: Discharge Summary Assessment (RN) Last Done: 12/24/19 16:25 DC Date/Time DO NOT enter until pt leaves facility: 12/24/19 16:49 Coding Level of Care Code 84151 OBS Care - Discharge Diagnoses Precordial chest pain R07.2 Permanent atrial fibrillation I48.21 Hyperlipidemia LDL goal <70 E78.5 GERD (gastroesophageal reflux disease) K21.9 Esophagitis presence: without esophagitis Anticoagulant long-term use Z79.01 Depression F32.9
--- NOTE | 2019-12-25 05:31 | Electrocardiogram Report ---
Test Reason : Blood Pressure : / mmHG Vent. Rate : 072 BPM Atrial Rate : 088 BPM P-R Int : 000 ms QRS Dur : 084 ms QT Int : 406 ms P-R-T Axes : 000 -07 005 degrees QTc Int : 444 ms Atrial fibrillation Low voltage QRS Possible Inferior infarct Abnormal ECG When compared with ECG of 30-NOV-2018 09:30, No significant change Confirmed by Leonardo Herr ([id number]) on 12/25/2019 5:31:12 AM Referred By: REFERRED SELF Confirmed By:Leonardo Herr
== END 2019-12-24 16:49 | disposition home or self-care (01) ==
LOC: ED 23:12 → 2E 23:12 → SUATTDRO 12-24 01:11 → 2E 12-24 03:13

== ENCOUNTER 2020-07-31 17:39 | Observation (INO) ==
[2020-07-31] MEDS ORDERED: ONDANSETRON INJ 2 MG/ML 2 ML VIAL IV STA ×2 (18:22→19:59)
[2020-07-31] MEDS ORDERED: MoRPHine SULFATE 4 MG/ML 1 ML CARP\\VIAL IV STA (18:22)
--- NOTE | 2020-07-31 18:27 | Emergency Department Note ---
History of Present Illness General Chief complaint: Abdominal Pain Time Seen by Provider: 07/31/20 18:16 Source: patient History of Present Illness Provider complaint: Abdominal pain Onset (ago): week(s) Location: abdomen Radiation: other (Lower chest) Severity: severe Pain Consistency: + intermittent Maximum Pain Intensity: 7 Quality: + other (Sore) Relieved By: + medication (Oxycodone) Exacerbated By: + eating Associated symptoms: + nausea/vomiting; no chest pain, no cough, no fever/chills and no shortness of breath This is a 70-year-old female presents with abdominal pain for the past week. The patient states it is in her lower abdomen. It sometimes radiates into her lower chest but she denies any chest pain or shortness of breath. She has had a few episodes of vomiting with it. She denies any diarrhea and states she had a normal bowel movement today. She denies any urinary symptoms. She does state that her pain is worse after she eats. It did get better after she took an oxycodone but this was only temporary. She did fall out of her chair when her chair collapsed about a week ago but she states that she had the pain prior to the fall. She denies any cough, fever or known exposure to COVID-19. Home Medications Home Medications Medication Instructions Recorded Confirmed Type aspirin 81 mg tablet,delayed 81 mg PO DAILY tab 09/02/19 07/31/20 History release cholecalciferol (vitamin D3) 10 1,000 units PO DAILY cap 10/09/19 07/31/20 History mcg (400 unit) capsule metoprolol succinate 50 mg 50 mg PO BID #180 tab 01/26/20 07/31/20 Rx tablet,extended release 24 hr apixaban 5 mg tablet 5 mg PO BID 04/29/20 07/31/20 History atorvastatin 40 mg tablet 40 mg PO DAILY #90 tab 04/29/20 07/31/20 Rx diltiazem HCl 240 mg PO QAM 05/23/20 07/31/20 History fluoxetine 40 mg PO QAM 05/23/20 07/31/20 History pantoprazole 40 mg PO QAM 05/23/20 07/31/20 History furosemide 40 mg tablet 80 mg PO DAILY #180 tab 06/23/20 07/31/20 Rx Iron Infusions 0 mg IV UD 07/31/20 07/31/20 History Zinc Sulfate Pill 100 mg PO BID 07/31/20 07/31/20 History Allergies Allergy/AdvReac Type Severity Reaction Status Date / Time No Known Drug Allergies Allergy Unknown Verified 07/31/20 20:19 Past Med/Surg History Medical History Anemia Atrial fibrillation dx approx 5 years ago - on eliquis - follows w/ Dr. Brewer Cardiac murmur Chronic diastolic congestive heart failure Depression Diverticular disease GERD (gastroesophageal reflux disease) HTN (hypertension) Hx SBO Hyperlipemia Hypertension Recurrent pancreatitis TIA (transient ischemic attack) approx 1 year ago - [place] - no residual Surgical History H/O: hysterectomy History of cardiac radiofrequency ablation History of cardioversion multiple History of colonoscopy History of colostomy History of colostomy reversal History of esophagogastroduodenoscopy (EGD) History of umbilical hernia repair Hx of abdominal surgery Hx of cholecystectomy Hx of laparoscopy Hx of removal of cyst Tubal ligation status Family History Grandmother Diabetes Hypertension Mother Heart disease Hypertension Grandfather Stomach cancer Hypertension Father Pancreatic cancer Hypertension Other No family history of adverse response to anesthesia Denies family history of Ovarian cancer Breast cancer Colorectal cancer Social History Smoking Status: Never smoker Second Hand Exposure: No; Hx Alcohol Use: No Hx Substance Use: No Preferred Language: Salvadorean Communication Ability: Effective Visual Impairment: No Limitations Hearing Ability: Normal Band And Cuff Cutter Required: No Beliefs That Will Affect Care: None marital status: Current Living Situation: Spouse 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 status: retired current occupation: [employer] Feels Safe at Home: Yes Safety Concerns: Feels Safe At This Time Seatbelt Use: always Sunscreen Use: No Review of Systems See HPI for pertinent positives & negatives. and A total of 10 systems reviewed and were otherwise negative Physical Exam Vital Signs Vital Signs - 24 hr 07/31/20 17:52 07/31/20 17:59 07/31/20 19:03 Temperature 36.6 C Temperature Source Oral Pulse Rate 84 Pulse Rate [Left Finger] 79 Pulse Rate from SpO2 Sensor Respiratory Rate 20 16 Blood Pressure 128/73 Blood Pressure [Left Arm] 126/91 Blood Pressure Mean 91 Blood Pressure Mean [Left Arm] 102 Pulse Oximetry 94 94 94 Oxygen Delivery Method Room Air Room Air Room Air Sepsis Recent Fever Within 48 Hours No Sepsis New/Unexplained Change in Mental Status No Sepsis Action Taken by Nursing No Action Required 07/31/20 20:01 07/31/20 20:31 07/31/20 21:01 Temperature Temperature Source Pulse Rate 77 98 H 77 Pulse Rate [Left Finger] Pulse Rate from SpO2 Sensor 78 93 H 82 Respiratory Rate 18 18 15 Blood Pressure 123/62 131/65 128/93 Blood Pressure [Left Arm] Blood Pressure Mean 90 102 102 Blood Pressure Mean [Left Arm] Pulse Oximetry 97 91 95 Oxygen Delivery Method Sepsis Recent Fever Within 48 Hours Sepsis New/Unexplained Change in Mental Status Sepsis Action Taken by Nursing Constitutional: Vital signs reviewed. Eyes: Pupils are equal round reactive to light. Conjunctiva are noninjected. ENT: Pharynx is clear without erythema or exudate. Mucous membranes are dry. Neck supple without meningeal signs. Respiratory: Clear to auscultation bilaterally. Breath sounds are equal bilaterally. Cardiovascular: Regular rate and rhythm. No rubs or gallops. GI: Soft, nondistended with suprapubic tenderness. No guarding. Bowel sounds are present. Musculoskeletal: No peripheral edema. No lower extremity tenderness. Integumentary: No cyanosis. or jaundice. Neurological: The patient is awake and alert. No focal deficits. Psychiatric: Normal affect. Not anxious appearing. Course Administered Medications Discontinued Medications Fentanyl Citrate (Fentanyl Citrate 100 Mcg/2 Ml Vial) 50 mcg IV NOW STA Stop: 07/31/20 20:00 Last Admin: 07/31/20 20:26 Dose: 50 mcg Documented by: [id number] Sodium Chloride (Nss) 500 mls @ 999 mls/hr IV .Q31M JESSIE Stop: 07/31/20 19:00 Last Infusion: 07/31/20 19:37 Dose: 0 mls/hr Documented by: [id number] Admin: 07/31/20 19:02 Dose: 999 mls/hr Documented by: [id number] Morphine Sulfate (Morphine Sulfate 4 Mg/Ml 1 Ml Carp\Vial) 4 mg IV NOW STA Stop: 07/31/20 18:23 Last Admin: 07/31/20 19:02 Dose: 4 mg Documented by: [id number] Ondansetron HCl (Ondansetron Inj 2 Mg/Ml 2 Ml Vial) 4 mg IV NOW STA Stop: 07/31/20 18:23 Last Admin: 07/31/20 19:02 Dose: 4 mg Documented by: [id number] Ondansetron HCl (Ondansetron Inj 2 Mg/Ml 2 Ml Vial) 4 mg IV NOW STA Stop: 07/31/20 20:00 Last Admin: 07/31/20 20:26 Dose: 4 mg Documented by: [id number] Medical Decision Making Differential Diagnosis Diverticulitis, abscess, perforation, UTI, IBS Medical Records Attestation: I reviewed the patient's medical records. I did perform a limited focused review of portions of the patient's old chart on the electronic medical record. The patient has had no recent pertinent visits to this hospital. Home Medications Current Medication List: was personally reviewed by me Laboratory Data Attestation: I reviewed the patient's lab results. Result diagrams: 07/31/20 19:00 07/31/20 19:00 Lab Results 07/31/20 07/31/20 07/31/20 Range/Units 19:00 19:00 19:00 WBC 8.07 (4.8-10.8) K/uL RBC 4.51 (4.2-5.4) M/uL Hgb 13.4 (12.0-16.0) g/dL Hct 43.3 (37-47) % MCV 96.0 (80-100) fL MCH 29.7 (25-34) pg MCHC 30.9 L (32-36) g/dL RDW Std Deviation 77.2 H (36.4-46.3) fL RDW Coeff of Rodrigo 21.9 H (11.5-14.5) % Plt Count 189 (130-400) K/uL MPV 9.4 (7.4-10.4) fL Immature Gran % (Auto) 0.2 % Neut % (Auto) 88.2 % Lymph % (Auto) 5.2 % [place] % (Auto) 5.9 % Eos % (Auto) 0.4 % Baso % (Auto) 0.1 % Neut # (Auto) 7.11 H (1.4-6.5) K/uL Lymph # (Auto) 0.42 L (1.2-3.4) K/uL [place] # (Auto) 0.48 (0.11-0.59) K/uL Eos # (Auto) 0.03 (0-0.5) K/uL Baso # (Auto) 0.01 (0-0.2) K/uL Immature Gran # (Auto) 0.02 (0.00-0.02) K/uL Polychromasia 1+ Anisocytosis Present Echinocytes 1+ Sodium 143 (136-145) mmol/L Potassium 4.2 (3.5-5.1) mmol/L Chloride 107 (98-107) mmol/L Carbon Dioxide 27 (21-32) mmol/L Anion Gap 8.0 (3-11) BUN 29 H (7-18) mg/dl Creatinine 1.19 (0.6-1.2) mg/dl Est Cr Clr Drug Dosing 54.5 ml/min Est GFR ( Amer) 54.3 Est GFR (Non-Af Amer) 46.9 BUN/Creatinine Ratio 24.3 H (10-20) Glucose 143 H (70-99) mg/dl Calcium 8.9 (8.5-10.1) mg/dl Total Bilirubin 1.2 H (0.2-1) mg/dl AST 155 H (15-37) U/L ALT 81 H (12-78) U/L Alkaline Phosphatase 222 H (45-117) U/L Total Protein 7.3 (6.4-8.2) gm/dl Albumin 3.6 (3.4-5.0) gm/dl Globulin 3.7 (2.5-4.0) gm/dl Albumin/Globulin Ratio 1.0 (0.9-2) Lipase 450 H Cancelled (73-393) U/L Urine Color Urine Appearance (Clear) Urine pH (4.5-7.5) Ur Specific [place] (1.000-1.030) Urine Protein (Negative) Urine Glucose (UA) (Negative) Urine Ketones (Negative) Urine Blood (Negative) Urine Nitrite (Negative) Urine Bilirubin (Negative) Urine Urobilinogen (Negative) Ur Leukocyte Esterase (Negative) Urine WBC (Auto) (0-5) /hpf Urine RBC (Auto) (0-4) /hpf U Hyaline Cast (Auto) (0-5) /lpf U Epithel Cells (Auto) (0-5) /lpf Urine Bacteria (Auto) (Negative) 07/31/20 Range/Units 19:29 WBC (4.8-10.8) K/uL RBC (4.2-5.4) M/uL Hgb (12.0-16.0) g/dL Hct (37-47) % MCV (80-100) fL MCH (25-34) pg MCHC (32-36) g/dL RDW Std Deviation (36.4-46.3) fL RDW Coeff of Rodrigo (11.5-14.5) % Plt Count (130-400) K/uL MPV (7.4-10.4) fL Immature Gran % (Auto) % Neut % (Auto) % Lymph % (Auto) % [place] % (Auto) % Eos % (Auto) % Baso % (Auto) % Neut # (Auto) (1.4-6.5) K/uL Lymph # (Auto) (1.2-3.4) K/uL [place] # (Auto) (0.11-0.59) K/uL Eos # (Auto) (0-0.5) K/uL Baso # (Auto) (0-0.2) K/uL Immature Gran # (Auto) (0.00-0.02) K/uL Polychromasia Anisocytosis Echinocytes Sodium (136-145) mmol/L Potassium (3.5-5.1) mmol/L Chloride (98-107) mmol/L Carbon Dioxide (21-32) mmol/L Anion Gap (3-11) BUN (7-18) mg/dl Creatinine (0.6-1.2) mg/dl Est Cr Clr Drug Dosing ml/min Est GFR ( Amer) Est GFR (Non-Af Amer) BUN/Creatinine Ratio (10-20) Glucose (70-99) mg/dl Calcium (8.5-10.1) mg/dl Total Bilirubin (0.2-1) mg/dl AST (15-37) U/L ALT (12-78) U/L Alkaline Phosphatase (45-117) U/L Total Protein (6.4-8.2) gm/dl Albumin (3.4-5.0) gm/dl Globulin (2.5-4.0) gm/dl Albumin/Globulin Ratio (0.9-2) Lipase (73-393) U/L Urine Color Yellow Urine Appearance Clear (Clear) Urine pH 5.0 (4.5-7.5) Ur Specific [place] 1.017 (1.000-1.030) Urine Protein Negative (Negative) Urine Glucose (UA) Negative (Negative) Urine Ketones Negative (Negative) Urine Blood Negative (Negative) Urine Nitrite Negative (Negative) Urine Bilirubin Negative (Negative) Urine Urobilinogen Negative (Negative) Ur Leukocyte Esterase Trace H (Negative) Urine WBC (Auto) 1-5 (0-5) /hpf Urine RBC (Auto) 0-4 (0-4) /hpf U Hyaline Cast (Auto) 0 (0-5) /lpf U Epithel Cells (Auto) 10-20 H (0-5) /lpf Urine Bacteria (Auto) 2+ H (Negative) Imaging Data Radiologist's Impression: CT SCAN OF THE ABDOMEN AND PELVIS WITHOUT CONTRAST CLINICAL HISTORY: Lower abdominal pain. Possible diverticulitis. COMPARISON STUDY: January 20, 2020 TECHNIQUE: CT scan of the abdomen and pelvis was performed from the lung bases to the proximal femurs. Images are reviewed in the axial, sagittal, and coronal planes. IV contrast was not administered for this examination. A dose lowering technique was utilized adhering to the principles of ALARA. CT DOSE: 1421.78 mGy.cm FINDINGS: Lower chest: There is mild right lower lobe surgical bronchiectasis. There are small right pleural effusion. There are right basilar atelectatic changes. The heart is enlarged. Liver: The liver surface is mildly lobular particularly involving the right lobe inferiorly. Evaluation of the liver is limited by the lack of intravenous contrast. There is no significant ductal dilatation. Gallbladder: Surgically absent Spleen: Normal in size and attenuation. Pancreas: Unremarkable. Adrenal glands: There is mild adrenal gland thickening Kidneys: There are bilateral hypodense renal masses, likely representing cysts. There is left-sided nephrolithiasis. There is mild right-sided hydronephrosis and perinephric stranding. There is mild right periureteral edema. No calculus is visualized. Bowel: There are postsurgical changes of a gastric bypass and Ngoc-en-Y anastomosis. There are no transition zones to indicate bowel obstruction. The appendix appears normal. There is colonic diverticulosis. There are no acute peridiverticular inflammatory changes. Peritoneum: There is no intraperitoneal free air or abdominal ascites. Vasculature: The abdominal aorta is normal in course and caliber. Adenopathy: None. Pelvic viscera: The uterus is surgically absent Skeletal structures: There is persistent dilatation of the left L3-4, and L4-5 neural foramina. The findings are likely secondary to perineural cysts although they're sheath tumors could appear similar. IMPRESSION: 1. Examination limited due to the lack of intravenous and oral contrast 2. Postsurgical changes of a gastric bypass, hysterectomy, and cholecystectomy 3. Lobulated hepatic contour 4. Left-sided nephrolithiasis 5. Right-sided hydronephrosis perinephric stranding and periureteral edema. No obstructing calculus is visualized. Clinical correlation for evidence of a recently passed calculus is recommended. Other etiologies of renal obstruction cannot be excluded. Follow-up is recommended. 6. Left-sided nephrolithiasis 7. Multiple hypodense renal masses likely representing cysts 8. No evidence of bowel obstruction. No evidence of free air 9. Normal appendix 10. Diverticulosis. No evidence of acute diverticulitis ACT 112: Negative or not required by law. Electronically signed by: Shahid Dempsey M.D. 07/31/2020 7:29 PM Dictated: 07/31/201920 Transcribed: 07/31/201928 ECG Data Attestation: I personally reviewed and interpreted this ECG as follows: Indication: + abdominal pain Rate (beats per minute): 69 Rhythm: + atrial fibrillation ECG ST segments: no ST elevation ECG Findings: + Q waves (Inferior); no PVCs Comparison ECG Date: from (December 23, 2019) Change: no significant change Blood Pressure Blood Pressure Findings: Elevated blood pressure Blood Pressure Disposition: Referred to patients primary care provider [facility] Narrative I did evaluate the patient as noted above. The patient is presenting with lower abdominal pain with tenderness in the suprapubic region. She did have some vomiting associated with it. IV access was established. I did treat her with normal saline IV. She was also given IV morphine and Zofran for pain and nausea. She had persistent pain and nausea and was given IV fentanyl and Zofran. I did order and personally review the patient's 12-lead EKG as described above. She has no acute ischemic changes on her EKG. I did order a urine analysis. There is bacteriuria but no other signs of infection. She does not appear to have hematuria. She denies any urinary symptoms. I did order and review the patient's blood work as noted in the electronic medical record. She has no leukocytosis. She is not anemic. Electrolytes are unremarkable. She has mild elevation of her total bilirubin and AST. Lipase is slightly elevated at 450. I did order a CT of the abdomen and pelvis. I did review the images myself as well as the radiology report as described above. She has right-sided hydronephrosis without evidence of a stone in the ureter. She does have left- sided nephrolithiasis. She does have diverticulosis without evidence of diverticulitis. I did discuss the test results with the patient. I did reassess her. She still has pain and nausea. She states she does not drink alcohol and has not had an alcoholic drink in 30 years. At this time it did not seem prudent to send her home with continued symptoms. It is unclear why she has hydronephrosis. It is possible she may have passed a stone but her symptomatology is not consistent with renal colic on the right side. She has had no right-sided flank pain. Her pain is mostly suprapubic and rating up towards her epigastric region. She is agreeable with the plan for hospitalization. I did discuss the case with the hospitalist and rn field case manager. Impression & Plan Intractable abdominal pain, Hydronephrosis of right kidney, Abnormal LFTs Discharge Plan Visit Data Chief Complaint: Abdominal Pain ED Provider: Ray Jones Discharge Problem: Intractable abdominal pain, Hydronephrosis of right kidney, Abnormal LFTs Patient Disposition: Admitted As Inpatient Discharge Instructions Interventions: ED Discharge Assessment Last Done: 07/31/20 22:11
[2020-07-31] MEDS ORDERED: SODIUM CHLORIDE 0.9% 500 ML IV SCH (18:30)
[2020-07-31 19:06] LABS: Hematocrit (blood only) 43.3 % (37-47); Hemoglobin 13.4 g/dL (12.0-16.0); Lymphocytes % (auto) 5.2 %; Mean Corpuscular Hemoglobin 29.7 pg (25-34); Mean Corpuscular Hgb Conc 30.9 g/dL (32-36); Mean Platelet Volume 9.4 fL (7.4-10.4); Neutrophils % (auto) 88.2 %; Platelet Count 189 K/uL (130-400); RDW Coefficient of Variation 21.9 % (11.5-14.5); RDW Standard Deviation 77.2 fL (36.4-46.3); Red Blood Count 4.51 M/uL (4.2-5.4); White Blood Count 8.07 K/uL (4.8-10.8)
[2020-07-31 19:07] LABS: Basophils # (auto) 0.01 K/uL (0-0.2); Basophils % (auto) 0.1 %; Eosinophils # (auto) 0.03 K/uL (0-0.5); Eosinophils % (auto) 0.4 %; Immature Granulocytes # (auto) 0.02 K/uL (0.00-0.02); Immature Granulocytes % (auto) 0.2 %; Lymphocytes # (auto) 0.42 K/uL (1.2-3.4); Monocytes # (auto) 0.48 K/uL (0.11-0.59); Monocytes % (auto) 5.9 %; Neutrophils # (auto) 7.11 K/uL (1.4-6.5)
[2020-07-31 19:23] LABS: Albumin Level 3.6 gm/dl (3.4-5.0); BUN Creatinine Ratio 24.3 (10-20); Calcium 8.9 mg/dl (8.5-10.1); Creatinine Clr Calc Pharmacy 54.5 ml/min; Est GFR (African American) 54.3; Est GFR (Non-African American) 46.9; Potassium 4.2 mmol/L (3.5-5.1)
[2020-07-31 19:26] LABS: Bilirubin,Total 1.2 mg/dl (0.2-1); Globulin 3.7 gm/dl (2.5-4.0); Total Protein 7.3 gm/dl (6.4-8.2)
[2020-07-31 19:28] LABS: Anisocytosis Present; Echinocytes 1+; Polychromasia 1+
--- NOTE | 2020-07-31 19:31 | CT Scan Report ---
CT SCAN OF THE ABDOMEN AND PELVIS WITHOUT CONTRAST CLINICAL HISTORY: Lower abdominal pain. Possible diverticulitis. COMPARISON STUDY: January 20, 2020 TECHNIQUE: CT scan of the abdomen and pelvis was performed from the lung bases to the proximal femurs . Images are reviewed in the axial, sagittal, and coronal planes. IV contrast was not administered fo r this examination. A dose lowering technique was utilized adhering to the principles of ALARA. CT DOSE: 1421.78 mGy.cm FINDINGS: Lower chest: There is mild right lower lobe surgical bronchiectasis. There are small right pleural ef fusion. There are right basilar atelectatic changes. The heart is enlarged. Liver: The liver surface is mildly lobular particularly involving the right lobe inferiorly. Evaluati on of the liver is limited by the lack of intravenous contrast. There is no significant ductal dilata tion. Gallbladder: Surgically absent Spleen: Normal in size and attenuation. Pancreas: Unremarkable. Adrenal glands: There is mild adrenal gland thickening Kidneys: There are bilateral hypodense renal masses, likely representing cysts. There is left-sided n ephrolithiasis. There is mild right-sided hydronephrosis and perinephric stranding. There is mild rig ht periureteral edema. No calculus is visualized. Bowel: There are postsurgical changes of a gastric bypass and Ngoc-en-Y anastomosis. There are no tra nsition zones to indicate bowel obstruction. The appendix appears normal. There is colonic diverticul osis. There are no acute peridiverticular inflammatory changes. Peritoneum: There is no intraperitoneal free air or abdominal ascites. Vasculature: The abdominal aorta is normal in course and caliber. Adenopathy: None. Pelvic viscera: The uterus is surgically absent Skeletal structures: There is persistent dilatation of the left L3-4, and L4-5 neural foramina. The f indings are likely secondary to perineural cysts although they're sheath tumors could appear similar. IMPRESSION: 1. Examination limited due to the lack of intravenous and oral contrast 2. Postsurgical changes of a gastric bypass, hysterectomy, and cholecystectomy 3. Lobulated hepatic contour 4. Left-sided nephrolithiasis 5. Right-sided hydronephrosis perinephric stranding and periureteral edema. No obstructing calculus i s visualized. Clinical correlation for evidence of a recently passed calculus is recommended. Other e tiologies of renal obstruction cannot be excluded. Follow-up is recommended. 6. Left-sided nephrolithiasis 7. Multiple hypodense renal masses likely representing cysts 8. No evidence of bowel obstruction. No evidence of free air 9. Normal appendix 10. Diverticulosis. No evidence of acute diverticulitis ACT 112: Negative or not required by law. Electronically signed by: Shahid Dempsey M.D. 07/31/2020 7:29 PM
[2020-07-31 19:44] LABS: Appearance Urine Clear (Clear); Bacteria Urine Automated 2+ (Negative); Bilirubin Urine Negative (Negative); Blood Urine Negative (Negative); Cast Urine Automated 0 /lpf (0-5); Color Urine Yellow; Glucose Urine UA Negative (Negative); Ketones Urine Negative (Negative); Leukocyte Esterase Urine Trace (Negative); Nitrite Urine Negative (Negative); Protein Urine Negative (Negative); RBC Urine Automated 0-4 /hpf (0-4); Specific Gravity Urine 1.017 (1.000-1.030); Urobilinogen Urine Negative (Negative)
[2020-07-31] MEDS ORDERED: fentaNYL citrate 100 MCG/2 ML VIAL IV STA (19:59)
--- NOTE | 2020-07-31 21:54 | History & Physical Report ---
Date of Service July 31, 2020 Assessment & Plan (1) Intractable abdominal pain: Tea Dawkins is a 70 y/o female with past medical hx of chronic diastolic failure, permanent a fib on Eliquis, HTN, morbid obesity, gastric bypass, abdominal pain, kidney stones, pancreatitis, HLD, TIA, depression, s/p cholecystectomy, s/p hysterectomy who presents with CC of Abdominal Pain. - Differential includes pain from kidney stone as questionable from CT, but no blood in urine. However colicky pain would be consistent with such. She notes pain is similar to previous. - In the setting of her gastric bypass, I believe most likely that she is eating inappropriately large meals and/or poor food choices (spicy, sodas, meats) that is leading to regurgitation, which explains worsening after meals. Would recommend small meals, will start on clear liquid diet and advance as tolerated. - She had a normal EGD performed recently within the last 2 months and is on a PPI at home. This didn't show any gastritis and she is on a PPI, but would be included on the differential. - She has several visits to the ED in the past for abdominal pain, and this could be chronic pain related to her gastric bypass. Or maybe gastroparesis, but not diabetic, but not normal anatomy from surgery. - There are no signs of infectious process, appendix was normal on CT, no diverticulitis, Lipase not 3xgreater than the upper level of normal so no pancreatitis - which she was relieved to hear. She has no Gallbladder. - This could also be from right sided hydronephrosis seen on CT scan, but unsure of clinical relevance since no stone is seen. - LFTs are slightly elevated but she has history of this and most likely from fatty liver. - She did not improve at all with morphine 4mg IV, she stressed no relief. She was given Fentanyl in ED. I discussed with her that it will be unlikely that we will eliminate all pain, but will treat her pain appropriately. I discussed that use of pain meds can cause constipation and could lead to more problems for her. I believe her pain is functional and possibly damage to ureter from kidney stone or irritation to GI lining from over-eating. - Currently, there is no consideration for consult to urology or GI. I'm not sure any further workup is needed at this time other than trialing small meals. - c/w home PPI Pantoprazole 40mg PO qAM - Had Hgb A1C two months ago that was 5.9. No need to repeat. CT Abd pelvis showed: IMPRESSION: 1. Examination limited due to the lack of intravenous and oral contrast 2. Postsurgical changes of a gastric bypass, hysterectomy, and cholecystectomy 3. Lobulated hepatic contour 4. Left-sided nephrolithiasis 5. Right-sided hydronephrosis perinephric stranding and periureteral edema. No obstructing calculus is visualized. Clinical correlation for evidence of a recently passed calculus is recommended. Other etiologies of renal obstruction cannot be excluded. Follow-up is recommended. 6. Left-sided nephrolithiasis 7. Multiple hypodense renal masses likely representing cysts 8. No evidence of bowel obstruction. No evidence of free air 9. Normal appendix 10. Diverticulosis. No evidence of acute diverticulitis DVT ppx: On Eliquis continue with FENGI: Start clear liquids, heart healthy/DM2 Dispo: Obs, med/surg Code: Full code (2) Hydronephrosis of right kidney: as noted above (3) Abnormal LFTs: as noted above, trend in AM Not from EtOH, notes last drink was 10 years ago (4) Hypertension: WNL in ED, continue with home Diltiazem 240mg PO Metoprolol succinate ER 50mg PO BID (5) GERD (gastroesophageal reflux disease): as above (6) Depression: c/w Fluoxetine 40mg PO qAM (7) Fatigue: Most likely from deconditioning and effort to move large body habitus at age 70. Discussed at length need to be more active to prevent muscle loss that could lead to eventually becoming bedbound. (8) History of gastric bypass: as noted in hx (9) Chronic diastolic congestive heart failure: Doesn't appear fluid overloaded, but weight obtained in the ED is unreliable. IandOs on the floor, recheck weight on floor consider ASA 81mg PO C/w Lasix 80mg PO daily, home dose. She follows with the heart failure clinic. She was last seen there about one month ago. From Heart failure note on 06/23/20, Her dry weight was thought to be around 220 lb. at previous visits. She has been weighing herself daily and is 233 lb today. Her range has generally been 230-235 lb. She notes compliance with meds. Heart failure clinic was also following her for dyspnea on exertion and fatigue. Weight recorded here in ED appears unreliable. Recent cardiac studies: 1. 04/09/19 Echocardiogram- LV size, wall motion, and systolic function are normal. EF 60-65%. Mild concentric LVH. RV is borderline dilated. RV systolic function is normal. Mild MR, left atrium is moderately dilated. Mild TR. PA pressure estimate is mildly increased. Borderline dilated vena cava. 2. 12/24/19 Echo- LV normal size. No wall motion abnormalities. EF 55-60%. LV systolic function is normal. Mild LVH. Mild-mod MR. Left atrium is mildly dilated. Mild TR. RVSP elevated at 40-50 mmHg. (10) Permanent atrial fibrillation: c/w eliquis and cardiac meds as noted above (11) Nausea and vomiting: as noted above Zofran 4mg IV PRN ordered. Consider Reglan could be more beneficial. (12) Hyperlipidemia LDL goal <70: c/w home atorvastatin 40mg daily History of Present Illness Chief Complaint: Abdominal Pain Primary Care Provider: Christopher Guevara MD Tea Dawkins is a 70 y/o female with past medical hx of chronic diastolic failure, permanent a fib on Eliquis, HTN, morbid obesity, gastric bypass, abdominal pain, kidney stones, pancreatitis, HLD, TIA, depression, s/p cholecystectomy, s/p hysterectomy who presents with CC of Abdominal Pain. She notes pain located to central abdomen that radiates to epigastric. She notes pain started about one week ago and has been intermittent. She notes episodes last hours. Tea states that both frequency and severity of pain increased today that led her to come here to the ED. She notes she has had similar pain in the past related to kidney stones and chronic pain s/p gastric bypass. She notes she has had nausea with vomiting that is worsened with meals, worsened with eating meats, worsened with drinking soda, and worsened with eating spicy foods. She denies any chest pain, she notes dyspnea on exertion but this is chronic. She has a history of deconditioning from review of prior EMR and notes she feels fatigued. It was mildly improved with PO Oxy at home. It was improved by avoiding meats, spicy foods, soda. She recently had an EGD on 05/26/2020 for evaluation of iron deficiency anemia, which showed normal esophagus, gastric bypass appeared normal with healthy appearing gastrojejunal anastomosis, normal jejunum, no specimen collected. She had her anemia corrected with IV Iron infusions. Her Hgb was WNL in ED. CMP showed no electrolyte abnormalities, creat 1.19, Glucose 143, AST 155, ALT 81, Lipase 450. UA was unremarkable, with epithelial cells. In the ED, she was given Morphine 4mg IV which she notes did not help with pain at all. She was given Fentanyl 50mcg IV prior to me entering room. She was also given 500cc NSS, Zofran 4mg IV x [address] Abd pelvis showed: IMPRESSION: 1. Examination limited due to the lack of intravenous and oral contrast 2. Postsurgical changes of a gastric bypass, hysterectomy, and cholecystectomy 3. Lobulated hepatic contour 4. Left-sided nephrolithiasis 5. Right-sided hydronephrosis perinephric stranding and periureteral edema. No obstructing calculus is visualized. Clinical correlation for evidence of a recently passed calculus is recommended. Other etiologies of renal obstruction cannot be excluded. Follow-up is recommended. 6. Left-sided nephrolithiasis 7. Multiple hypodense renal masses likely representing cysts 8. No evidence of bowel obstruction. No evidence of free air 9. Normal appendix 10. Diverticulosis. No evidence of acute diverticulitis She follows with the heart failure clinic. She was last seen there about one month ago. From Heart failure note on 06/23/20, Her dry weight was thought to be around 220 lb. at previous visits. She has been weighing herself daily and is 233 lb today. Her range has generally been 230-235 lb. She notes compliance with meds. Heart failure clinic was also following her for dyspnea on exertion and fatigue. Weight recorded here in ED appears unreliable. Recent cardiac studies: 1. 04/09/19 Echocardiogram- LV size, wall motion, and systolic function are normal. EF 60-65%. Mild concentric LVH. RV is borderline dilated. RV systolic function is normal. Mild MR, left atrium is moderately dilated. Mild TR. PA pressure estimate is mildly increased. Borderline dilated vena cava. 2. 12/24/19 Echo- LV normal size. No wall motion abnormalities. EF 55-60%. LV systolic function is normal. Mild LVH. Mild-mod MR. Left atrium is mildly dilated. Mild TR. RVSP elevated at 40-50 mmHg. Allergies Allergy/AdvReac Type Severity Reaction Status Date / Time No Known Drug Allergies Allergy Unknown Verified 07/31/20 20:19 Home Medications Home Medications Medication Instructions Recorded Confirmed Type aspirin 81 mg tablet,delayed 81 mg PO DAILY tab 09/02/19 07/31/20 History release cholecalciferol (vitamin D3) 10 1,000 units PO DAILY cap 10/09/19 07/31/20 History mcg (400 unit) capsule metoprolol succinate 50 mg 50 mg PO BID #180 tab 01/26/20 07/31/20 Rx tablet,extended release 24 hr apixaban 5 mg tablet 5 mg PO BID 04/29/20 07/31/20 History atorvastatin 40 mg tablet 40 mg PO DAILY #90 tab 04/29/20 07/31/20 Rx diltiazem HCl 240 mg PO QAM 05/23/20 07/31/20 History fluoxetine 40 mg PO QAM 05/23/20 07/31/20 History pantoprazole 40 mg PO QAM 05/23/20 07/31/20 History furosemide 40 mg tablet 80 mg PO DAILY #180 tab 06/23/20 07/31/20 Rx Iron Infusions 0 mg IV UD 07/31/20 07/31/20 History Zinc Sulfate Pill 100 mg PO BID 07/31/20 07/31/20 History Past Med/Surg History Medical History Anemia Atrial fibrillation dx approx 5 years ago - on eliquis - follows w/ Dr. Brewer Cardiac murmur Chronic diastolic congestive heart failure Depression Diverticular disease GERD (gastroesophageal reflux disease) HTN (hypertension) Hx SBO Hyperlipemia Hypertension Recurrent pancreatitis TIA (transient ischemic attack) approx 1 year ago - [place] - no residual Surgical History H/O: hysterectomy History of cardiac radiofrequency ablation History of cardioversion multiple History of colonoscopy History of colostomy History of colostomy reversal History of esophagogastroduodenoscopy (EGD) History of umbilical hernia repair Hx of abdominal surgery Hx of cholecystectomy Hx of laparoscopy Hx of removal of cyst Tubal ligation status Family History Grandmother Diabetes Hypertension Mother Heart disease Hypertension Grandfather Stomach cancer Hypertension Father Pancreatic cancer Hypertension Other No family history of adverse response to anesthesia Denies family history of Ovarian cancer Breast cancer Colorectal cancer Social History Smoking Status: Never smoker Second Hand Exposure: No; Hx Alcohol Use: No Hx Substance Use: No Preferred Language: Danish Communication Ability: Effective Visual Impairment: No Limitations Hearing Ability: Normal Child Care Nurse Required: No Beliefs That Will Affect Care: None marital status: Current Living Situation: Spouse 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 status: retired current occupation: [employer] Feels Safe at Home: Yes Safety Concerns: Feels Safe At This Time Seatbelt Use: always Sunscreen Use: No Review of Systems Review of Systems: All systems reviewed & are unremarkable except as noted in HPI & below Constitutional: no fever, no chills and no body aches Eyes: no blind spots and no spots in vision Ear, Nose, Mouth, Throat: no ear pain, no nasal congestion, no nasal obstruction and no epistaxis Respiratory: no cough and no dyspnea Cardiovascular: + dyspnea on exertion (chronic); no chest pain Gastrointestinal: as per Subjective / HPI; no coffee ground emesis and no constipation Genitourinary: no dysuria and no urinary frequency Musculoskeletal: no back pain and no neck pain Integumentary: no rash Neurologic: no numbness and no syncope Physical Exam Constitutional: + morbidly obese, cooperative and comfortable Eyes: PERRL, conjunctivae normal, anicteric sclerae ENMT: external ear and nose normal, oropharynx normal Neck: normal visual inspection and trachea midline Respiratory: normal respiratory effort; no respiratory distress Auscultation: + diminished lung sounds; no wheezes Cardiovascular: Rate/Rhythm: regular rate irregular irregular, 1+ pitting edema Gastrointestinal (Abdomen): Inspection/Auscultation: normal bowel sounds Percussion/Palpation: abdomen soft; abdomen nontender, no guarding and abdomen not rigid Musculoskeletal: Head/Neck/Chest: normocephalic and head atraumatic Skin: no rashes, warm and dry Neurologic: CN's II-XI intact bilaterally, moves all extremities and awake Psychiatric: Orientation: alert and oriented x 3 Results & Data Results & Data ([facility] [place]) Vital Signs (Past 12 Hours) Vital Signs Temp Pulse Pulse Resp BP BP Pulse Ox 07/31/20 20:31 98 H 18 131/65 91 07/31/20 20:01 77 18 123/62 97 07/31/20 19:03 79 16 126/91 94 07/31/20 17:59 94 07/31/20 17:52 36.6 C 84 20 128/73 94 Laboratory Results Laboratory Results - last 24 hr 07/31/20 07/31/20 07/31/20 19:00 19:00 19:00 WBC 8.07 RBC 4.51 Hgb 13.4 Hct 43.3 MCV 96.0 MCH 29.7 MCHC 30.9 L RDW Std Deviation 77.2 H RDW Coeff of Rodrigo 21.9 H Plt Count 189 MPV 9.4 Immature Gran % (Auto) 0.2 Neut % (Auto) 88.2 Lymph % (Auto) 5.2 Haines % (Auto) 5.9 Eos % (Auto) 0.4 Baso % (Auto) 0.1 Neut # (Auto) 7.11 H Lymph # (Auto) 0.42 L Haines # (Auto) 0.48 Eos # (Auto) 0.03 Baso # (Auto) 0.01 Immature Gran # (Auto) 0.02 Polychromasia 1+ Anisocytosis Present Echinocytes 1+ Sodium 143 Potassium 4.2 Chloride 107 Carbon Dioxide 27 Anion Gap 8.0 BUN 29 H Creatinine 1.19 Est Cr Clr Drug Dosing 54.5 Est GFR ( Amer) 54.3 Est GFR (Non-Af Amer) 46.9 BUN/Creatinine Ratio 24.3 H Glucose 143 H Calcium 8.9 Total Bilirubin 1.2 H AST 155 H ALT 81 H Alkaline Phosphatase 222 H Total Protein 7.3 Albumin 3.6 Globulin 3.7 Albumin/Globulin Ratio 1.0 Lipase 450 H Cancelled Urine Color Urine Appearance Urine pH Ur Specific [place] Urine Protein Urine Glucose (UA) Urine Ketones Urine Blood Urine Nitrite Urine Bilirubin Urine Urobilinogen Ur Leukocyte Esterase Urine WBC (Auto) Urine RBC (Auto) U Hyaline Cast (Auto) U Epithel Cells (Auto) Urine Bacteria (Auto) 07/31/20 19:29 WBC RBC Hgb Hct MCV MCH MCHC RDW Std Deviation RDW Coeff of Rodrigo Plt Count MPV Immature Gran % (Auto) Neut % (Auto) Lymph % (Auto) Haines % (Auto) Eos % (Auto) Baso % (Auto) Neut # (Auto) Lymph # (Auto) Haines # (Auto) Eos # (Auto) Baso # (Auto) Immature Gran # (Auto) Polychromasia Anisocytosis Echinocytes Sodium Potassium Chloride Carbon Dioxide Anion Gap BUN Creatinine Est Cr Clr Drug Dosing Est GFR ( Amer) Est GFR (Non-Af Amer) BUN/Creatinine Ratio Glucose Calcium Total Bilirubin AST ALT Alkaline Phosphatase Total Protein Albumin Globulin Albumin/Globulin Ratio Lipase Urine Color Yellow Urine Appearance Clear Urine pH 5.0 Ur Specific [place] 1.017 Urine Protein Negative Urine Glucose (UA) Negative Urine Ketones Negative Urine Blood Negative Urine Nitrite Negative Urine Bilirubin Negative Urine Urobilinogen Negative Ur Leukocyte Esterase Trace H Urine WBC (Auto) 1-5 Urine RBC (Auto) 0-4 U Hyaline Cast (Auto) 0 U Epithel Cells (Auto) 10-20 H Urine Bacteria (Auto) 2+ H Diagnostic Findings CT Abd pelvis showed: IMPRESSION: 1. Examination limited due to the lack of intravenous and oral contrast 2. Postsurgical changes of a gastric bypass, hysterectomy, and cholecystectomy 3. Lobulated hepatic contour 4. Left-sided nephrolithiasis 5. Right-sided hydronephrosis perinephric stranding and periureteral edema. No obstructing calculus is visualized. Clinical correlation for evidence of a recently passed calculus is recommended. Other etiologies of renal obstruction cannot be excluded. Follow-up is recommended. 6. Left-sided nephrolithiasis 7. Multiple hypodense renal masses likely representing cysts 8. No evidence of bowel obstruction. No evidence of free air 9. Normal appendix 10. Diverticulosis. No evidence of acute diverticulitis Code Status & VTE Plan Code Status Full Code VTE Prophylaxis Plan VTE Prophylaxis will be ordered: Yes Supervising Physician Co-Signing Physician Notes Patient seen and examined, chart reviewed, case discussed with Dr. Fernando and I agree with his assessment and plan as documented above Resident Activity Tracking Resident Involvement: Resident Care Provided Care Provided: Adult Hospital Medicine (1) GERD (gastroesophageal reflux disease) Esophagitis presence: without esophagitis Qualified Code(s): K21.9 - Gastro- esophageal reflux disease without esophagitis (2) Hypertension Hypertension type: essential hypertension Qualified Code(s): I10 - Essential (primary) hypertension
[2020-07-31] MEDS ORDERED: MoRPHine SULFATE 4 MG/ML 1 ML CARP\\VIAL IV PRN (22:55)
[2020-07-31] MEDS ORDERED: ACETAMINOPHEN 325 MG TAB PO PRN (22:55)
[2020-07-31] MEDS ORDERED: POLYETHYLENE (MIRALAX) 17 GM PACK PO PRN (22:55)
[2020-08-01] MEDS: ONDANSETRON INJ 2 MG/ML 2 ML VIAL IV PRN (00:05)
[2020-08-01] MEDS: OXYCODONE HCL IR 5 MG TAB (IMMEDIATE RELEASE) PO PRN (00:05)
[2020-08-01 06:12] LABS: Hematocrit (blood only) 39.9 % (37-47); Hemoglobin 12.3 g/dL (12.0-16.0); Mean Corpuscular Hemoglobin 29.4 pg (25-34); Mean Corpuscular Hgb Conc 30.8 g/dL (32-36); Mean Corpuscular Volume 95.2 fL (80-100); Mean Platelet Volume 9.6 fL (7.4-10.4); Platelet Count 189 K/uL (130-400); RDW Coefficient of Variation 22.1 % (11.5-14.5); RDW Standard Deviation 77.1 fL (36.4-46.3); Red Blood Count 4.19 M/uL (4.2-5.4); White Blood Count 4.42 K/uL (4.8-10.8)
[2020-08-01 06:41] LABS: Albumin Level 3.1 gm/dl (3.4-5.0); BUN Creatinine Ratio 22.9 (10-20); Calcium 8.9 mg/dl (8.5-10.1); Creatinine Clr Calc Pharmacy 56.9 ml/min; Est GFR (African American) 57.2; Est GFR (Non-African American) 49.4; Potassium 4.5 mmol/L (3.5-5.1)
[2020-08-01 06:44] LABS: Albumin Globulin Ratio 0.9 (0.9-2); Bilirubin,Total 1.1 mg/dl (0.2-1); Globulin 3.5 gm/dl (2.5-4.0); Total Protein 6.6 gm/dl (6.4-8.2)
--- NOTE | 2020-08-01 06:44 | Billing Data ---
Date of Service August 01, 2020 Coding Level of Care Code 27548 OBS Care - Level 3
[2020-08-01] MEDS: dilTIAZem HCL 240 MG CAPCR PO SCH (09:25)
[2020-08-01] MEDS: FLUOXETINE HCL 20 MG CAP PO SCH (09:26)
[2020-08-01] MEDS: APIXABAN 5 MG TABLET PO SCH ×2 (09:26→21:17)
[2020-08-01] MEDS: ASPIRIN 81 MG ECTAB PO SCH (09:27)
[2020-08-01] MEDS: FUROSEMIDE 80 MG TAB PO SCH (09:27)
[2020-08-01] MEDS: METOPROLOL SUCC 50MG EXT REL TAB PO SCH ×2 (09:27→21:17)
[2020-08-01] MEDS: PANTOprazole 40 MG TAB PO SCH (09:28)
[2020-08-01] MEDS: ATORVASTATIN 40 MG TAB PO SCH (09:28)
--- NOTE | 2020-08-01 14:45 | Hospitalist Progress Note ---
Date of Service August 01, 2020 Assessment & Plan (1) Intractable abdominal pain: Tea Dawkins is a 70 y/o female with past medical hx of chronic diastolic failure, permanent a fib on Eliquis, HTN, morbid obesity, gastric bypass, abdominal pain, kidney stones, pancreatitis, HLD, TIA, depression, s/p cholecystectomy, s/p hysterectomy who presents with CC of Abdominal Pain. Intractable abdominal pain Patient doing better today from pain - Possibly ?choledocolithiasis/?kidney stone/?gastritis - S/p cholecystectomy but elevated LFTs with R value pointing to cholestatic source--abdominal US to check for choledocolithiasis - Normal EGD within 2 months, on PPI at home--gastritis less likely - No signs of infectious cause--no diverticulitis, appendix normal on CT, lipase elevated but not to level of pancreatitis. - Left sided nephrolithiasis on CT - History of gastric bypass--possible chronic pain - Clear liquid diet, advance as tolerated - F/U abdominal US results - c/w home PPI Pantoprazole 40mg PO qAM Abnormal LFTs - As stated above - Not from EtOH--last drink 10 years ago - Trend LFTs in AM Hypertension - Well controlled currently - c/w home Metoprolol succinate ER 50mg PO BID - c/w home Diltiazem 240mg PO qAM GERD - c/w home Pantoprazole 40mg PO qAM as above Depression - c/w home Fluoxetine 40mg PO qAM Chronic diastolic congestive heart failure - c/w home lasix 80mg PO daily DVT ppx: c/w Eliquis 5mg PO BID FENGI: Start clear liquids, heart healthy/DM2 Dispo: Obs, med/surg Code: Full code (2) Hydronephrosis of right kidney: (3) Abnormal LFTs: (4) Hypertension: (5) GERD (gastroesophageal reflux disease): (6) Depression: (7) Fatigue: (8) History of gastric bypass: (9) Chronic diastolic congestive heart failure: (10) Permanent atrial fibrillation: (11) Nausea and vomiting: (12) Hyperlipidemia LDL goal <70: Admission and Anticipated Discharge Date Admission Date: July 31, 2020 Supervising Physician Co-Signing Physician Notes I personally examined the patient and verified all baxter points of history and exam, discussed case, and agree with decision making with Dr Hernandez. feeling ok now but also hasn't eaten much. no dysuria, frequency, urgency. some chills and sweats vitals noted nad heent nc at mmm breathing unlabored no accessory muscles good effort skin no rashes no pallor or icterus. mild epigastric ttp no guarding/rebound. (+) suprapubic tenderness as well no guarding/rebound abdominal pain - timing/etc fitting w UGI source - LFTs concerning for retained stone/sludge/biliary source. fortunately does not appear c/w acute cholangitis picture - but worrisome for biliary process. US. if inconclusive, then MRCP. ongoing serial exams, labs, supportive care suprapubic tendernes s- but no other urinary sx. ?due to stool in rectum behind bladder (noted on CT) - follow, serial exams, symptom monitoring - but no clear role for treatment at this time - despite urine showing gram negatives - without any symptoms would have to view as asymptomatic bacteriuria othewrise as above Subjective Patient evaluated today at bedside. She reports feeling much better and is glad the pain has subsided. Described the pain as being a deep, dull ache that went up from epigastric area to chest around an hour after a large meal. Does report having been eating irritative foods lately, especially lots of tomatoes. She's had no further symptoms since yesterday. She denies CP, palpitations, SOB, cough, dysuria, urinary frequency, nausea, vomiting, diarrhea. Review of Systems Constitutional: no fever, no chills, no sweats, no fatigue and no weakness Respiratory: no cough and no dyspnea Cardiovascular: no chest pain, no palpitations, no lightheadedness and no edema Gastrointestinal: + abdominal pain (much better today); no nausea and no vomiting Genitourinary: no dysuria, no difficulty urinating, no urinary frequency, no urinary urgency and no flank pain Physical Exam Constitutional: well developed, well nourished and + obese; no acute distress Respiratory: normal respiratory effort, lungs clear to auscultation Auscultation: no crackles, no rales, no rhonchi and no wheezes Cardiovascular: RRR, no murmur, no edema Heart Sounds: normal S1 and normal S2; no gallop, no murmur and no cardiac rub Gastrointestinal (Abdomen): Inspection/Auscultation: normal bowel sounds; abdomen not distended Percussion/Palpation: + abdomen tender (tender to palpation at midline inferiorly) Psychiatric: A+Ox3, euthymic affect Affect: euthymic affect Insight: good insight Results & Data Results & Data ([facility]) Vital Signs (Past 12 Hours) Vital Signs Temp Pulse Resp BP Pulse Ox 08/01/20 09:24 74 111/75 08/01/20 07:39 36.5 C 85 16 114/79 93 Resident Activity Tracking Resident Involvement: Resident Care Provided Care Provided: Adult Hospital Medicine (1) GERD (gastroesophageal reflux disease) Esophagitis presence: without esophagitis Qualified Code(s): K21.9 - Gastro- esophageal reflux disease without esophagitis (2) Hypertension Hypertension type: essential hypertension Qualified Code(s): I10 - Essential (primary) hypertension
--- NOTE | 2020-08-01 19:54 | Billing Data ---
Date of Service August 01, 2020 Coding Level of Care Code 90729 Subseq Obs Care Lvl 3
--- NOTE | 2020-08-02 06:36 | Electrocardiogram Report ---
Test Reason : Blood Pressure : / mmHG Vent. Rate : 069 BPM Atrial Rate : 073 BPM P-R Int : 000 ms QRS Dur : 094 ms QT Int : 424 ms P-R-T Axes : 000 -10 -01 degrees QTc Int : 454 ms Atrial fibrillation Inferior infarct , age undetermined Cannot rule out Anterior infarct , age undetermined Abnormal ECG When compared with ECG of 23-DEC-2019 23:23, No significant change Confirmed by Leonardo Herr ([id number]) on 08/02/2020 6:35:47 AM Referred By: REFERRED SELF Confirmed By:Leonardo Herr
[2020-08-02 06:44] LABS: Basophils # (auto) 0.01 K/uL (0-0.2); Basophils % (auto) 0.3 %; Eosinophils # (auto) 0.09 K/uL (0-0.5); Eosinophils % (auto) 2.5 %; Hemoglobin 13.3 g/dL (12.0-16.0); Lymphocytes # (auto) 0.48 K/uL (1.2-3.4); Lymphocytes % (auto) 13.5 %; Mean Corpuscular Hemoglobin 29.3 pg (25-34); Mean Corpuscular Hgb Conc 30.9 g/dL (32-36); Mean Corpuscular Volume 94.7 fL (80-100); Mean Platelet Volume 9.8 fL (7.4-10.4); Monocytes # (auto) 0.36 K/uL (0.11-0.59); Monocytes % (auto) 10.1 %; Neutrophils # (auto) 2.62 K/uL (1.4-6.5); Neutrophils % (auto) 73.6 %; Platelet Count 163 K/uL (130-400); RDW Coefficient of Variation 21.8 % (11.5-14.5); RDW Standard Deviation 75.9 fL (36.4-46.3); Red Blood Count 4.54 M/uL (4.2-5.4); White Blood Count 3.56 K/uL (4.8-10.8)
[2020-08-02 07:07] LABS: Anisocytosis Present
[2020-08-02 07:12] LABS: Albumin Level 3.2 gm/dl (3.4-5.0); BUN Creatinine Ratio 17.7 (10-20); Bilirubin,Total 1.4 mg/dl (0.2-1); Est GFR (African American) 54.9; Est GFR (Non-African American) 47.4; Total Protein 6.9 gm/dl (6.4-8.2)
--- NOTE | 2020-08-02 07:12 | Ultrasound Report ---
BILIARY ULTRASOUND CLINICAL HISTORY: upper abdominal pain, transaminitis COMPARISON STUDY: CT scan dated 07/31/2020 FINDINGS: The appendix appears normal as visualized. There is heterogeneous hepatic echotexture without evidence of focal mass. The gallbladder is surgically absent. The common bile duct measures 8 mm. There is mild right-sided hydronephrosis. There is a small right pleural effusion. IMPRESSION: 1. Surgically absent gallbladder. 2. 8 mm common bile duct 3. Mild right-sided hydronephrosis 4. Mildly heterogeneous hepatic echotexture 5. Small right pleural effusion ACT 112: Negative or not required by law. Electronically signed by: Shahid Dempsey M.D. 08/02/2020 7:11 AM
[2020-08-02 07:19] LABS: Potassium 3.8 mmol/L (3.5-5.1)
[2020-08-02] MEDS: ONDANSETRON INJ 2 MG/ML 2 ML VIAL IV PRN (07:46)
[2020-08-02] MEDS: OXYCODONE HCL IR 5 MG TAB (IMMEDIATE RELEASE) PO PRN (07:48)
[2020-08-02] MEDS: dilTIAZem HCL 240 MG CAPCR PO SCH (08:33)
[2020-08-02] MEDS: FUROSEMIDE 80 MG TAB PO SCH (08:34)
[2020-08-02] MEDS: APIXABAN 5 MG TABLET PO SCH (08:34)
[2020-08-02] MEDS: ASPIRIN 81 MG ECTAB PO SCH (08:34)
[2020-08-02] MEDS: FLUOXETINE HCL 20 MG CAP PO SCH (08:35)
[2020-08-02] MEDS: PANTOprazole 40 MG TAB PO SCH (08:35)
[2020-08-02] MEDS: ATORVASTATIN 40 MG TAB PO SCH (08:35)
[2020-08-02] MEDS: METOPROLOL SUCC 50MG EXT REL TAB PO SCH (08:36)
--- NOTE | 2020-08-02 09:18 | Hospitalist Progress Note ---
Date of Service August 02, 2020 Assessment & Plan (1) Intractable abdominal pain: Tea Dawkins is a 70 y/o female with past medical hx of chronic diastolic failure, permanent a fib on Eliquis, HTN, morbid obesity, gastric bypass, abdominal pain, kidney stones, pancreatitis, HLD, TIA, depression, s/p cholecystectomy, s/p hysterectomy who presents with CC of Abdominal Pain. Intractable abdominal pain Patient does not have pain today. Cause of abdominal pain uncertain but has subsided today. - S/p cholecystectomy but elevated LFTs with R value pointing to cholestatic source--abdominal US to check for choledocolithiasis - Normal EGD within 2 months, on PPI at home--gastritis less likely - No signs of infectious cause--no diverticulitis, appendix normal on CT, lipase elevated but not to level of pancreatitis. - Left sided nephrolithiasis on CT - History of gastric bypass--possible chronic pain - Clear liquid diet, advance as tolerated - Abdominal US and MRCP done today--no bile duct calculi - Advance diet to regular--monitor response - c/w home PPI Pantoprazole 40mg PO qAM UTI - Patient complaining otday of increased urinary frequency and suprapubic tenderness - Positive urine culture - Start macrobid 100mg PO BID Abnormal LFTs - As stated above - Not from EtOH--last drink 10 years ago - Trend LFTs in AM Hypertension - Well controlled currently - c/w home Metoprolol succinate ER 50mg PO BID - c/w home Diltiazem 240mg PO qAM GERD - c/w home Pantoprazole 40mg PO qAM as above Depression - c/w home Fluoxetine 40mg PO qAM Chronic diastolic congestive heart failure - c/w home lasix 80mg PO daily DVT ppx: c/w Eliquis 5mg PO BID FENGI: Heart healthy/DM2 Dispo: Med/surg Code: Full code Admission and Anticipated Discharge Date Admission Date: July 31, 2020 Subjective Patient evaluated today at bedside. She reports feeling much better and is glad the pain has subsided. Described the pain as being a deep, dull ache that went up from epigastric area to chest a round an hour after a large meal. Does report having been eating irritative foods lately, especially lots of tomatoes. She's had no further symptoms since yesterday. She denies CP, palpitations, SOB, cough, dysuria, urinary frequency, nausea, vomiting, diarrhea. Review of Systems Constitutional: no fever, no chills, no sweats, no fatigue and no malaise Respiratory: no cough and no dyspnea Cardiovascular: no chest pain, no palpitations and no edema Gastrointestinal: + abdominal pain (suprapubic tenderness); no nausea and no vomiting Genitourinary: + urinary frequency; no dysuria, no difficulty urinating and no hematuria Physical Exam Constitutional: well developed, well nourished and + obese; no acute distress Respiratory: normal respiratory effort, lungs clear to auscultation Auscultation: no crackles, no rales, no rhonchi and no wheezes Cardiovascular: RRR, no murmur, no edema Heart Sounds: normal S1 and normal S2; no gallop, no murmur and no cardiac rub Gastrointestinal (Abdomen): Inspection/Auscultation: normal bowel sounds; abdomen not distended Percussion/Palpation: + abdomen tender (supapubic tenderness) Psychiatric: A+Ox3, euthymic affect Affect: euthymic affect Insight: good insight Results & Data Results & Data ([facility]) Vital Signs (Past 12 Hours) Vital Signs Temp Pulse Resp BP BP Pulse Ox 08/02/20 08:31 87 139/94 08/02/20 07:32 36.5 C 91 H 16 148/90 H 96 08/01/20 23:17 36.6 C 73 16 111/75 93
--- NOTE | 2020-08-02 13:55 | Magnetic Resonance Report ---
MR MRCP CLINICAL HISTORY: postprandial pain, elevated LFTs COMPARISON STUDY: Biliary ultrasound dated 08/01/2020, CT scan dated 07/31/2020 FINDINGS: A breath-hold MRCP was performed. MIP images were acquired. There is a small right pleural effusion. The gallbladder is surgically absent. The common bile duct measures 7 mm, likely secondary to a reservoir effect from prior cholecystectomy . There are no filling defects to indicate common bile duct calculi. There are a few small subcentimeter pancreatic cystic lesions measuring up to 6 mm. Side branch IPMN' s are suspected There are bilateral renal cysts. There is right-sided hydronephrosis. There is infiltration of the right perinephric fat and infiltrat ion of the fat surrounding the proximal right ureter. Further renal workup is recommended. There are left spinal perineural cysts with secondary bony remodeling. IMPRESSION: 1. Surgically absent gallbladder 2. Minimal ductal prominence including a 7 mm common bile duct likely secondary to a reservoir effect from prior cholecystectomy 3. No evidence of common bile duct calculi 4. Small cystic pancreatic lesions likely representing side branch IPMN's 5. Right-sided hydronephrosis and infiltration of the right renal hilum and proximal ureteral soft ti ssues. Further renal workup is recommended. 6. Small right pleural effusion ACT 112: Negative or not required by law. Electronically signed by: Shahid Dempsey M.D. 08/02/2020 1:54 PM
--- NOTE | 2020-08-02 18:52 | Discharge Summary ---
Date of Service August 02, 2020 Admission HPI Per Admitting Provider Tea Dawkins is a 70 y/o female with past medical hx of chronic diastolic failure, permanent a fib on Eliquis, HTN, morbid obesity, gastric bypass, abdominal pain, kidney stones, pancreatitis, HLD, TIA, depression, s/p cholecystectomy, s/p hysterectomy who presents with CC of Abdominal Pain. She notes pain located to central abdomen that radiates to epigastric. She notes pain started about one week ago and has been intermittent. She notes episodes last hours. Tea states that both frequency and severity of pain increased today that led her to come here to the ED. She notes she has had similar pain in the past related to kidney stones and chronic pain s/p gastric bypass. She notes she has had nausea with vomiting that is worsened with meals, worsened with eating meats, worsened with drinking soda, and worsened with eating spicy foods. She denies any chest pain, she notes dyspnea on exertion but this is chronic. She has a history of deconditioning from review of prior EMR and notes she feels fatigued. It was mildly improved with PO Oxy at home. It was improved by avoiding meats, spicy foods, soda. She recently had an EGD on 05/26/2020 for evaluation of iron deficiency anemia, which showed normal esophagus, gastric bypass appeared normal with healthy appearing gastrojejunal anastomosis, normal jejunum, no specimen collected. She had her anemia corrected with IV Iron infusions. Her Hgb was WNL in ED. CMP showed no electrolyte abnormalities, creat 1.19, Glucose 143, AST 155, ALT 81, Lipase 450. UA was unremarkable, with epithelial cells. In the ED, she was given Morphine 4mg IV which she notes did not help with pain at all. She was given Fentanyl 50mcg IV prior to me entering room. She was also given 500cc NSS, Zofran 4mg IV x [address] Abd pelvis showed: IMPRESSION: 1. Examination limited due to the lack of intravenous and oral contrast 2. Postsurgical changes of a gastric bypass, hysterectomy, and cholecystectomy 3. Lobulated hepatic contour 4. Left-sided nephrolithiasis 5. Right-sided hydronephrosis perinephric stranding and periureteral edema. No obstructing calculus is visualized. Clinical correlation for evidence of a recently passed calculus is recommended. Other etiologies of renal obstruction cannot be excluded. Follow-up is recommended. 6. Left-sided nephrolithiasis 7. Multiple hypodense renal masses likely representing cysts 8. No evidence of bowel obstruction. No evidence of free air 9. Normal appendix 10. Diverticulosis. No evidence of acute diverticulitis She follows with the heart failure clinic. She was last seen there about one month ago. From Heart failure note on 06/23/20, Her dry weight was thought to be around 220 lb. at previous visits. She has been weighing herself daily and is 233 lb today. Her range has generally been 230-235 lb. She notes compliance with meds. Heart failure clinic was also following her for dyspnea on exertion and fatigue. Weight recorded here in ED appears unreliable. Recent cardiac studies: 1. 04/09/19 Echocardiogram- LV size, wall motion, and systolic function are normal. EF 60-65%. Mild concentric LVH. RV is borderline dilated. RV systolic function is normal. Mild MR, left atrium is moderately dilated. Mild TR. PA pressure estimate is mildly increased. Borderline dilated vena cava. 2. 12/24/19 Echo- LV normal size. No wall motion abnormalities. EF 55-60%. LV systolic function is normal. Mild LVH. Mild-mod MR. Left atrium is mildly dilated. Mild TR. RVSP elevated at 40-50 mmHg. Admission Exam Per Admitting Provider Constitutional: morbidly obese, cooperative and comfortable Eyes: PERRL, conjunctivae normal, anicteric sclerae ENMT: external ear and nose normal, oropharynx normal Neck: normal visual inspection and trachea midline Respiratory: normal respiratory effort; no respiratory distress Auscultation: + diminished lung sounds; no wheezes Cardiovascular: Rate/Rhythm: regular rate irregular irregular, 1+ pitting edema Gastrointestinal (Abdomen): Inspection/Auscultation: normal bowel sounds Percussion/Palpation: abdomen soft; abdomen nontender, no guarding and abdomen not rigid Musculoskeletal: Head/Neck/Chest: normocephalic and head atraumatic Skin: no rashes, warm and dry Neurologic: CN's II-XI intact bilaterally, moves all extremities and awake Psychiatric: Orientation: alert and oriented x 3 Principal Diagnosis Intractable abdominal pain Discharge Exam Constitutional WD/WN, vitals as above cooperative and comfortable Respiratory normal respiratory effort, lungs clear to auscultation Auscultation: no crackles, no rales, no rhonchi and no wheezes Cardiovascular RRR, no murmur, no edema Heart Sounds: normal S1 and normal S2; no click, no gallop, no murmur and no cardiac rub Gastrointestinal (Abdomen) Inspection/Auscultation: abdomen not distended Percussion/Palpation: + abdomen tender (suprapubic) and abdomen soft Discharge Data Allergies Allergy/AdvReac Type Severity Reaction Status Date / Time No Known Drug Allergies Allergy Unknown Verified 07/31/20 20:19 Consultations 07/31/20 20:16 ED Decision to Admit Stat Ordered Studies 07/31/20 18:22 CT abd pelvis wo con Stat 08/01/20 14:12 US abdomen limited Urgent 08/02/20 08:42 MR MRCP Routine Hospital Course (1) Intractable abdominal pain: Tea Dawkins is a 70 y/o female with past medical hx of chronic diastolic failure, permanent a fib on Eliquis, HTN, morbid obesity, gastric bypass, abdominal pain, kidney stones, pancreatitis, HLD, TIA, depression, s/p cholecystectomy, s/p hysterectomy who presents with CC of Abdominal Pain. Intractable abdominal pain Patient does not have pain today. Cause of abdominal pain uncertain but has subsided today. - S/p cholecystectomy but elevated LFTs with R value pointing to cholestatic source--abdominal US to check for choledocolithiasis - Normal EGD within 2 months, on PPI at home--gastritis less likely - No signs of infectious cause--no diverticulitis, appendix normal on CT, lipase elevated but not to level of pancreatitis. - Left sided nephrolithiasis on CT - History of gastric bypass--possible chronic pain - Abdominal US and MRCP done--no bile duct calculi - Advanced diet to regular--responded well - continued home PPI Pantoprazole 40mg PO qAM UTI - Patient complaining otday of increased urinary frequency and suprapubic tenderness - Positive urine culture - Start macrobid 100mg PO BID Abnormal LFTs - As stated above - Not from EtOH--last drink 10 years ago Hypertension - Well controlled - continued home Metoprolol succinate ER 50mg PO BID - continued home Diltiazem 240mg PO qAM GERD - continued home Pantoprazole 40mg PO qAM as above Depression - continued home Fluoxetine 40mg PO qAM Chronic diastolic congestive heart failure - continued home lasix 80mg PO daily FENGI: Heart healthy/DM2 Dispo: Home Code: Full code Total Time Total Time Spent Total Time Spent (In Minutes): see Attending attestation Discharge Plan Discharge Items Patient Disposition: Home - Self-Care Reason For Visit: ABDOMINAL PAIN Discharge Diagnosis: Abdominal pain Activity: Per Instructions section Non-emergency contact: Primary Care Provider Call non-emergency contact if: your symptoms worsen, your pain is not controlled, your pain is worsening and your pain is unusual for you Follow-up/Referrals: Donal Guevara MD [Primary Care Provider] - Diet: Carb Consistent or DM2 and Heart Healthy Addtl Attending Provider Instructions: You came to [facility] for abdominal pain. During your hospital stay you were evaluated for several causes with lab tests and imaging including ultrasound, CT, and MRI. No immediate causes were found but you progressed well while here. Most likely y ou had transient biliary sludge that escaped imaging, or a viral process that passed on its own. You developed suprapubic discomfort and urinary frequency while here. Due to your positive urinary culture you will receive antibiotics at home. Please follow up with you primary care provider at your earliest convenience. Pending Studies at Discharge: No Stand-Alone Forms: My [facility], Smoking Cessation Medications and DC Order Prescriptions: New nitrofurantoin monohyd/m-cryst 100 mg capsule 100 mg PO BID Qty: 14 RF: 0 Continued metoprolol succinate [Toprol XL] 50 mg tablet extended release 24 hr 50 mg PO BID Qty: 180 RF: 3 Eliquis 5 mg tablet 5 mg PO BID RF: 0 atorvastatin 40 mg tablet 40 mg PO DAILY Qty: 90 RF: 3 furosemide 40 mg tablet 80 mg PO DAILY Qty: 180 RF: 3 aspirin 81 mg tablet,delayed release (DR/EC) 81 mg PO DAILY RF: 0 fluoxetine 40 mg capsule 40 mg PO QAM RF: 0 diltiazem HCl 240 mg capsule,extended release 24hr 240 mg PO QAM RF: 0 pantoprazole 40 mg tablet,delayed release (DR/EC) 40 mg PO QAM RF: 0 Iron Infusions 0 mg IV UD RF: 0 Zinc Sulfate Pill 100 mg PO BID RF: 0 cholecalciferol (vitamin D3) [Vitamin D3] 400 unit capsule 1,000 units PO DAILY RF: 0 Discharge Orders: Discharge Order (Routine); Ordered 08/02/20 Ordered By: Stepan Zabala/Other Patient Handouts: Abdominal Pain, Healthy Kidneys, How Your Kidneys Work, Understanding Hydronephrosis Admission Data Admit Date/Time: 07/31/20 21:30 Attending Provider: Darius Bates Admit Provider: Davi Segal Primary Care Provider: Donal Guevara Other Providers: Bindu Kumar Other Interventions: Discharge Summary Assessment (RN) Last Done: 08/02/20 19:21 Supervising Physician Co-Signing Physician Notes I personally examined the patient and verified all baxter points of history and exam, discussed case, and agree with decision making with Dr Hernandez. feeling better, really wants to go home. no new complaints. hasn't had recurrence of UGI sx again. ongoing suprapubic pressure vitals noted nad heent nc at mmm breathing unlabored no accessory muscles good effort skin no rashes no pallor or icterus neuro no focal deficits upper abdominal pain, elevated bili, alk phos, ast/alt -CT, US, MRCP without telling features - sx were c/w biliary colic / indigestion - but with LFT pattern concern on hepatobiliary (despite lack of GB) -no cholangitis -no stone/sludge seen - although imaging was done after sx had abated - ?possibly small amount of sludge that passed before imaging would capture -?possibly intrahepatic cholestatic if she had mild viral illness that bumped AST/ALT first then a little swelling caused intrahepatic compression --->either way getting better clinically. discussed GI consult inpt vs trial of food and if does well - then home, PCP f/u labs (starting on 08/04) and then following through until normalized -she opted for the latter - ate well, stable for home -next labs (CMP) on 08/04 suprapubic pain, mild urinary frequency -macrobid (cabrera sensitive E Coli on culture) Resident Activity Tracking Resident Involvement: Resident Care Provided Care Provided: Adult Hospital Medicine
--- NOTE | 2020-08-02 20:19 | Billing Data ---
Date of Service August 02, 2020 Coding Level of Care Code D/C Day Management <30 mins
[2020-08-02] MEDS ORDERED: NITROFURANTOIN MONOHYDRATE 100 MG CAP PO SCH (21:00)
== END 2020-08-02 19:52 | disposition home or self-care (01) ==
LOC: 3W 17:39 → ED 17:39 → SUATTDRO 21:30 → 3W 22:11

== ENCOUNTER 2020-11-03 14:26 | Observation (INO) ==
--- NOTE | 2020-11-03 14:44 | Emergency Department Note ---
Impression & Plan Infection due to ESBL-producing Escherichia coli, Nausea & vomiting, Dehydration ED Provider Note NAME: GUSTABO MCKEON AGE: 70 SEX: F : 1950 ARRIVES VIA: Walk-In INFORMANT: Patient, ED PROVIDER(S): Ahmet Ricardo MD Chief Complaint: Nausea vomiting HPI: Patient does present with nausea and vomiting decreased p.o. intake. The patient was recently seen on November 01 diagnosed with a pyelonephritis with some right-sided hydronephrosis. The patient at that time had complained of some flank and abdominal pain. The patient was treated initially with Rocephin and discharged on p.o. Keflex twice daily. The patient's urine culture did come back with ESBL E. coli but given the patient's weakness nausea and vomiting the patient was encouraged to return for evaluation treatment and likely IV antibiotic therapy. The patient states that her pain is improved. The patient states that she has not had any bloody emesis. Patient states that this is only happened several times. Patient denies any changes in diet. Patient still complains of nausea. The patient believes that she has been able to take her regular medications. The patient has felt warm but has not taken a temperature to indicate true fever. The patient has had regular bowel movements and denies any blood in the urine. Patient states that she is to take the Keflex. ROS: See HPI for pertinent positives and negatives. A total of 10 systems were reviewed and otherwise negative. Past medical history: See below Surgical history: See below Social history: See below Physical Exam: GENERAL: Wearing a mask, mildly ill in appearance but nontoxic. EYE EXAM: Normal conjunctiva. PERRL, no anisocoria and EOM's grossly intact w/o pain. NECK: Supple, no nuchal rigidity, no adenopathy, non-tender. No signs of meningismus. LUNGS: Clear to auscultation. Normal chest wall mechanics. HEART: NSR, no MRG. ABDOMEN: Abdomen soft, non-tender, normo-active bowel sounds, no masses, no rebound or guarding. BACK: No CVA TTP. SKIN: No rashes and no bruising. UPPER EXTREMITIES: Upper extremities are grossly normal. LOWER EXTREMITIES: Grossly normal, no edema. NEURO EXAM: A&O x3, cranial nerves II-XII grossly intact, normal speech, moves all 4 extremities on command w/o issue. Differential diagnoses: Renal colic, UTI, appendicitis, diverticulitis, mesenteric ischemia, aortic pathology, infections, inflammatory bowel disease, PUD, biliary pathology, as well as other pathologies. Course: Patient was seen and evaluated the bedside. Full history physical exam was performed. EKG: None Imaging Studies: None Cardiac monitoring: An order was placed for continuous cardiac monitoring. The monitor shows a rate of 85 with sinus rhythm. MDM: Patient does present with concern for pyelonephritis but is resistant to the antibiotics that she was taking at home. The patient does not complain of any pain currently has no CVA tenderness palpation. The patient is afebrile. Blood work was obtained and the patient was given nausea medication. The patient has a normal white count H&H and platelet count. The patient's kidney function is slightly worse compared to prior with an BUN of 35 and creatinine 1.7. Prior of 26 and 1.2. Would not be surprising given the possibility of dehydration. Patient's urinalysis still shows positive leuks and whites but no obvious bacteria. Patient was ordered ertapenem per pharmacy. Given the patient's symptoms dehydration nausea vomiting and ESBL believe the patient would benefit from admission. I did speak the on-call hospitalist Dr. Kumar. Patient was admitted to the medicine service. Do not believe the patient requires a repeat CT scan at this time. Believe the patient's ARIADNE is likely related to dehydration with the nausea and vomiting. The patient does not have any CVA tenderness to palpation and no abdominal pain. The patient is afebrile with normal white count. Past Med/Surg History Medical History (Updated 11/03/20 @ 19:11 by Ahmet Ricardo MD) Abnormal LFTs Anemia Atrial fibrillation dx approx 5 years ago - on eliquis - follows w/ Dr. Brewer Cardiac murmur Chronic diastolic congestive heart failure Depression Diverticular disease GERD (gastroesophageal reflux disease) HTN (hypertension) Hx SBO Hyperlipemia Hypertension Intractable abdominal pain Recurrent pancreatitis TIA (transient ischemic attack) approx 1 year ago - [place] - no residual Surgical History H/O: hysterectomy History of cardiac radiofrequency ablation History of cardioversion multiple History of colonoscopy History of colostomy History of colostomy reversal History of esophagogastroduodenoscopy (EGD) History of umbilical hernia repair Hx of abdominal surgery Hx of cholecystectomy Hx of laparoscopy Hx of removal of cyst Tubal ligation status Family History Grandmother Diabetes Hypertension Mother Heart disease Hypertension Grandfather Stomach cancer Hypertension Father Pancreatic cancer Hypertension Other No family history of adverse response to anesthesia Denies family history of Ovarian cancer Breast cancer Colorectal cancer Social History Smoking Status: Never smoker Second Hand Exposure: No; Hx Alcohol Use: No Hx Substance Use: No Preferred Language: [place] Communication Ability: Effective Visual Impairment: No Limitations Hearing Ability: Normal 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 Beliefs That Will Affect Care: None marital status: Current Living Situation: Spouse 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 status: retired 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 Safe at Home: Yes Seatbelt Use: always Sunscreen Use: No Assistive Devices: None Allergies Allergies Allergy/AdvReac Type Severity Reaction Status Date / Time No Known Allergies Allergy Verified 11/03/20 16:12 Home Meds Home Medications Medication Instructions Recorded Confirmed aspirin 81 mg tablet,delayed 81 mg PO QAM tab 09/02/19 11/03/20 release diltiazem HCl 240 mg PO QAM 05/23/20 11/03/20 pantoprazole 40 mg PO QAM 05/23/20 11/03/20 atorvastatin 40 mg PO QAM 11/03/20 11/03/20 cholecalciferol (vitamin D3) 1,000 unit PO QAM 11/03/20 11/03/20 [Vitamin D3] fluoxetine 20 mg PO QAM 11/03/20 11/03/20 fluoxetine 40 mg PO QAM 11/03/20 11/03/20 furosemide 80 mg PO QAM 11/03/20 11/03/20 zinc 100 mg PO QAM 11/03/20 11/03/20 Previous Rx's Medication Instructions Recorded metoprolol succinate 50 mg 50 mg PO BID #180 tab 01/26/20 tablet,extended release 24 hr apixaban 5 mg tablet 5 mg PO BID #180 tab 08/25/20 Results & Data (ED) Vital Signs Vital Signs - 24 hr 11/03/20 14:30 11/03/20 15:42 11/03/20 16:00 Temperature 36.5 C Temperature Source Oral Pulse Rate 93 H 93 H 80 Pulse Rate from SpO2 Sensor 86 Pulse Rhythm Regular Respiratory Rate 18 18 16 Blood Pressure 140/82 149/91 H Blood Pressure Mean 101 100 Pulse Oximetry 96 96 97 Oxygen Delivery Method Room Air Sepsis Recent Fever Within 48 Hours No Sepsis New/Unexplained Change in Mental Status No Sepsis Action Taken by Nursing No Action Required 11/03/20 16:30 11/03/20 17:00 Temperature Temperature Source Pulse Rate 85 92 H Pulse Rate from SpO2 Sensor 86 92 H Pulse Rhythm Respiratory Rate 18 20 Blood Pressure 154/96 H 161/93 H Blood Pressure Mean 124 102 Pulse Oximetry 98 98 Oxygen Delivery Method Sepsis Recent Fever Within 48 Hours Sepsis New/Unexplained Change in Mental Status Sepsis Action Taken by Long-Term Medications Current Medication List: was personally reviewed by me Laboratory Data Attestation: I reviewed the patient's lab results. Result diagrams: 11/03/20 14:45 11/03/20 14:45 Lab Results 11/03/20 11/03/20 11/03/20 Range/Units 14:45 14:45 15:40 WBC 7.71 (4.8-10.8) K/uL RBC 4.13 L (4.2-5.4) M/uL Hgb 13.6 (12.0-16.0) g/dL Hct 40.7 (37-47) % MCV 98.5 (80-100) fL MCH 32.9 (25-34) pg MCHC 33.4 (32-36) g/dL RDW Std Deviation 52.3 H (36.4-46.3) fL RDW Coeff of Rodrigo 14.5 (11.5-14.5) % Plt Count 160 (130-400) K/uL MPV 10.2 (7.4-10.4) fL Immature Gran % (Auto) 0.1 % Neut % (Auto) 90.1 % Lymph % (Auto) 3.4 % [place] % (Auto) 5.7 % Eos % (Auto) 0.6 % Baso % (Auto) 0.1 % Neut # (Auto) 6.94 H (1.4-6.5) K/uL Lymph # (Auto) 0.26 L (1.2-3.4) K/uL [place] # (Auto) 0.44 (0.11-0.59) K/uL Eos # (Auto) 0.05 (0-0.5) K/uL Baso # (Auto) 0.01 (0-0.2) K/uL Immature Gran # (Auto) 0.01 (0.00-0.02) K/uL Sodium 140 (136-145) mmol/L Potassium 3.6 (3.5-5.1) mmol/L Chloride 106 (98-107) mmol/L Carbon Dioxide 30 (21-32) mmol/L Anion Gap 4.0 (3-11) BUN 35 H (7-18) mg/dl Creatinine 1.77 H (0.6-1.2) mg/dl Est Cr Clr Drug Dosing 36.0 ml/min Est GFR ( Amer) 33.6 Est GFR (Non-Af Amer) 29.0 BUN/Creatinine Ratio 19.7 (10-20) Glucose 98 (70-99) mg/dl Calcium 8.7 (8.5-10.1) mg/dl Magnesium 2.3 (1.8-2.4) mg/dl Total Bilirubin 0.9 (0.2-1) mg/dl AST 19 (15-37) U/L ALT 21 (12-78) U/L Alkaline Phosphatase 145 H (45-117) U/L Total Protein 7.2 (6.4-8.2) gm/dl Albumin 3.0 L (3.4-5.0) gm/dl Globulin 4.2 H (2.5-4.0) gm/dl Albumin/Globulin Ratio 0.7 L (0.9-2) TSH 0.879 (0.300-4.500) uIu/ml Urine Color Yellow Urine Appearance Turbid A (Clear) Urine pH 5.0 (4.5-7.5) Ur Specific [place] 1.016 (1.000-1.030) Urine Protein Trace H (Negative) Urine Glucose (UA) Negative (Negative) Urine Ketones Negative (Negative) Urine Blood 3+ H (Negative) Urine Nitrite Negative (Negative) Urine Bilirubin Negative (Negative) Urine Urobilinogen Negative (Negative) Ur Leukocyte Esterase 3+ H (Negative) Urine WBC (Auto) >30 H (0-5) /hpf Urine RBC (Auto) 10-30 H (0-4) /hpf U Hyaline Cast (Auto) 1-5 (0-5) /lpf U Epithel Cells (Auto) 10-20 H (0-5) /lpf Urine Bacteria (Auto) Negative (Negative) Urine Yeast Not Reportable SARS-CoV-2 Ag (Rapid) (Negative) 11/03/20 Range/Units 17:09 WBC (4.8-10.8) K/uL RBC (4.2-5.4) M/uL Hgb (12.0-16.0) g/dL Hct (37-47) % MCV (80-100) fL MCH (25-34) pg MCHC (32-36) g/dL RDW Std Deviation (36.4-46.3) fL RDW Coeff of Rodrigo (11.5-14.5) % Plt Count (130-400) K/uL MPV (7.4-10.4) fL Immature Gran % (Auto) % Neut % (Auto) % Lymph % (Auto) % [place] % (Auto) % Eos % (Auto) % Baso % (Auto) % Neut # (Auto) (1.4-6.5) K/uL Lymph # (Auto) (1.2-3.4) K/uL [place] # (Auto) (0.11-0.59) K/uL Eos # (Auto) (0-0.5) K/uL Baso # (Auto) (0-0.2) K/uL Immature Gran # (Auto) (0.00-0.02) K/uL Sodium (136-145) mmol/L Potassium (3.5-5.1) mmol/L Chloride (98-107) mmol/L Carbon Dioxide (21-32) mmol/L Anion Gap (3-11) BUN (7-18) mg/dl Creatinine (0.6-1.2) mg/dl Est Cr Clr Drug Dosing ml/min Est GFR ( Amer) Est GFR (Non-Af Amer) BUN/Creatinine Ratio (10-20) Glucose (70-99) mg/dl Calcium (8.5-10.1) mg/dl Magnesium (1.8-2.4) mg/dl Total Bilirubin (0.2-1) mg/dl AST (15-37) U/L ALT (12-78) U/L Alkaline Phosphatase (45-117) U/L Total Protein (6.4-8.2) gm/dl Albumin (3.4-5.0) gm/dl Globulin (2.5-4.0) gm/dl Albumin/Globulin Ratio (0.9-2) TSH (0.300-4.500) uIu/ml Urine Color Urine Appearance (Clear) Urine pH (4.5-7.5) Ur Specific [place] (1.000-1.030) Urine Protein (Negative) Urine Glucose (UA) (Negative) Urine Ketones (Negative) Urine Blood (Negative) Urine Nitrite (Negative) Urine Bilirubin (Negative) Urine Urobilinogen (Negative) Ur Leukocyte Esterase (Negative) Urine WBC (Auto) (0-5) /hpf Urine RBC (Auto) (0-4) /hpf U Hyaline Cast (Auto) (0-5) /lpf U Epithel Cells (Auto) (0-5) /lpf Urine Bacteria (Auto) (Negative) Urine Yeast SARS-CoV-2 Ag (Rapid) Negative (Negative) Administered Medications Discontinued Medications Ertapenem 1,000 mg/ Sodium (Chloride) 60 mls @ 100 mls/hr IV NOW STA Stop: 11/03/20 15:24 Last Infusion: 11/03/20 16:32 Dose: 0 mls/hr Documented by: [id number] Admin: 11/03/20 15:45 Dose: 100 mls/hr Documented by: [id number] Sodium Chloride (Nss 1000ml) 1,000 mls @ 999 mls/hr IV .[id number] [email or web address] Stop: 11/03/20 16:15 Last Infusion: 11/03/20 17:03 Dose: 0 mls/hr Documented by: [id number] Admin: 11/03/20 15:45 Dose: 999 mls/hr Documented by: [id number] Ondansetron HCl (Ondansetron Inj 2 Mg/Ml 2 Ml Vial) 4 mg IV NOW STA Stop: 11/03/20 15:09 Last Admin: 11/03/20 15:45 Dose: 4 mg Documented by: [id number] Discharge Plan Visit Data Chief Complaint: Urinary Symptoms Stated Complaint: KIDNEY INFECTION, SENT FOR ADMISSION ED Provider: Ahmet Ricardo Discharge Problem: Infection due to ESBL-producing Escherichia coli, Nausea & vomiting, Dehydration Discharge Instructions Interventions: ED Discharge Assessment Last Done: 11/03/20 18:55 Discharge Problem: Nausea & vomiting Qualifiers: Vomiting type: unspecified Vomiting Intractability: non-intractable Qualified Code(s): R11.2 - Nausea with vomiting, unspecified
[2020-11-03] MEDS ORDERED: ERTAPENEM SODIUM 1,000 MG in SODIUM CHLORIDE 0.9% 50 ML IV STA (14:49)
[2020-11-03] MEDS ORDERED: ONDANSETRON INJ 2 MG/ML 2 ML VIAL IV STA (15:08)
[2020-11-03] MEDS ORDERED: SODIUM CHLORIDE 0.9% 1000ML 1,000 ML IV SCH (15:15)
--- NOTE | 2020-11-03 16:03 | Electrocardiogram Report ---
Test Reason : Blood Pressure : / mmHG Vent. Rate : 096 BPM Atrial Rate : 108 BPM P-R Int : 000 ms QRS Dur : 098 ms QT Int : 332 ms P-R-T Axes : 000 -05 -03 degrees QTc Int : 419 ms Atrial fibrillation Abnormal ECG Confirmed by Christopher Monzon ([id number]) on 11/03/2020 4:02:50 PM Referred By: REFERRED SELF Confirmed By:Ramon Monzon
[2020-11-03 16:11] LABS: Appearance Urine Turbid (Clear); Bacteria Urine Automated Negative (Negative); Bilirubin Urine Negative (Negative); Blood Urine 3+ (Negative); Color Urine Yellow; Glucose Urine UA Negative (Negative); Ketones Urine Negative (Negative); Leukocyte Esterase Urine 3+ (Negative); Nitrite Urine Negative (Negative); Protein Urine Trace (Negative); Specific Gravity Urine 1.016 (1.000-1.030); Urobilinogen Urine Negative (Negative); WBC Urine Automated >30 /hpf (0-5)
[2020-11-03 16:12] LABS: BUN Creatinine Ratio 19.7 (10-20); Calcium 8.7 mg/dl (8.5-10.1); Est GFR (African American) 33.6; Magnesium 2.3 mg/dl (1.8-2.4); Potassium 3.6 mmol/L (3.5-5.1)
[2020-11-03 16:16] LABS: Basophils # (auto) 0.01 K/uL (0-0.2); Basophils % (auto) 0.1 %; Eosinophils # (auto) 0.05 K/uL (0-0.5); Eosinophils % (auto) 0.6 %; Hematocrit (blood only) 40.7 % (37-47); Hemoglobin 13.6 g/dL (12.0-16.0); Immature Granulocytes # (auto) 0.01 K/uL (0.00-0.02); Immature Granulocytes % (auto) 0.1 %; Lymphocytes # (auto) 0.26 K/uL (1.2-3.4); Lymphocytes % (auto) 3.4 %; Mean Corpuscular Hemoglobin 32.9 pg (25-34); Mean Corpuscular Hgb Conc 33.4 g/dL (32-36); Mean Corpuscular Volume 98.5 fL (80-100); Mean Platelet Volume 10.2 fL (7.4-10.4); Monocytes # (auto) 0.44 K/uL (0.11-0.59); Monocytes % (auto) 5.7 %; Neutrophils # (auto) 6.94 K/uL (1.4-6.5); Neutrophils % (auto) 90.1 %; Platelet Count 160 K/uL (130-400); RDW Coefficient of Variation 14.5 % (11.5-14.5); RDW Standard Deviation 52.3 fL (36.4-46.3); Red Blood Count 4.13 M/uL (4.2-5.4); White Blood Count 7.71 K/uL (4.8-10.8)
[2020-11-03 16:22] LABS: Albumin Globulin Ratio 0.7 (0.9-2); Bilirubin,Total 0.9 mg/dl (0.2-1); Globulin 4.2 gm/dl (2.5-4.0); Thyroid Stimulating Hormone 0.879 uIu/ml (0.300-4.500); Total Protein 7.2 gm/dl (6.4-8.2)
--- NOTE | 2020-11-03 17:29 | History & Physical Report ---
Date of Service November 03, 2020 Assessment & Plan (1) Infection due to ESBL-producing Escherichia coli: Patient afebrile, HD stable. Still with persistent nausea, mild abdominal pain. -Follow culture sent from ER -Ertapenem 1gm IV daily - consider DC home with Ciprofloxacin -Tylenol as needed for fever -Urology followup - patient with abnormal soft tissue findings in the ureteropelvic junction Present on Admission?: Yes (2) Nausea & vomiting: Possibly secondary to underlying infection -Zofran PRN Present on Admission?: Yes (3) Atrial fibrillation: Rate controlled -Continue Metoprolol -Continue Cardizem -Continue Apixaban Present on Admission?: Yes (4) Dehydration: Mildly elevated BUN and Cr -NSS as below Present on Admission?: Yes (5) Hypertension: Blood pressure mildly elevated -Continue Metoprolol -Continue Diltiazem Present on Admission?: Yes (6) GERD (gastroesophageal reflux disease): Chronic -Continue Protonix 40mg po qAM Present on Admission?: Yes (7) TIA (transient ischemic attack): Chronic. -Continue ASA 81mg po daily -Continue Atorvastatin 40mg po daily Present on Admission?: Yes (8) Depression: Chronic. Stable -Continue Prozac 60mg po qdaily Present on Admission?: Yes (9) Hyperlipidemia LDL goal <70: Chronic -Continue Atorvastatin Present on Admission?: Yes (10) Chronic diastolic congestive heart failure: Chronic. Patient appears mildly hypovolemic -Continue Metoprolol -Continue Lasix Present on Admission?: Yes (11) Vitamin D deficiency: Chronic -Continue Vitamin D supplementation F/E/N - NSS at 80mL/hr, monitor electrolytes and replete as needed, heart healthy diet as tolerated Ppx - Continue Apixaban Code - Full Dispo - Observation to medical Present on Admission?: Yes History of Present Illness Chief Complaint: nausea/vomiting, abdominal pain Primary Care Provider: Christopher Guevara MD Tea Dawkins is a 70yo C female with history of AF, HTN/HLP/GERD presenting with nausea/vomiting and decreased oral intake. She was seen in the ER yesterday 11/01/20 and diagnosed with pyelonephritis with right sided hydronephrosis. She was given Ceftriaxone in the ER and discharged home on Keflex. She returns today with persistent symptoms. Urine culture from yesterday with ESBL E.coli Sn to Cefoxitin, Cipro, Ertapenem, Levofloxacin, Meropenem, Nitrofurantoin and Zosyn. No additional complaints at this time. Rapid Covid-19 antigen testing performed in ER and is NEGATIVE ER Course: Ertapenem 1gm, Zofran 4mg Allergies Allergy/AdvReac Type Severity Reaction Status Date / Time No Known Allergies Allergy Verified 11/03/20 16:12 Home Medications Medication Instructions Recorded Confirmed Type aspirin 81 mg tablet,delayed 81 mg PO QAM tab 09/02/19 11/03/20 History release metoprolol succinate 50 mg 50 mg PO BID #180 tab 01/26/20 11/03/20 Rx tablet,extended release 24 hr diltiazem HCl 240 mg PO QAM 05/23/20 11/03/20 History pantoprazole 40 mg PO QAM 05/23/20 11/03/20 History apixaban 5 mg tablet 5 mg PO BID #180 tab 08/25/20 11/03/20 Rx atorvastatin 40 mg PO QAM 11/03/20 11/03/20 History cholecalciferol (vitamin D3) 1,000 unit PO QAM 11/03/20 11/03/20 History [Vitamin D3] fluoxetine 20 mg PO QAM 11/03/20 11/03/20 History fluoxetine 40 mg PO QAM 11/03/20 11/03/20 History furosemide 80 mg PO QAM 11/03/20 11/03/20 History zinc 100 mg PO QAM 11/03/20 11/03/20 History Past Med/Surg History Medical History (Updated 11/03/20 @ 20:33 by Bindu Kumar DO) Abnormal LFTs Anemia Atrial fibrillation dx approx 5 years ago - on eliquis - follows w/ Dr. Brewer Cardiac murmur Chronic diastolic congestive heart failure Depression Diverticular disease GERD (gastroesophageal reflux disease) HTN (hypertension) Hx SBO Hyperlipemia Hypertension Intractable abdominal pain Recurrent pancreatitis TIA (transient ischemic attack) approx 1 year ago - [place] - no residual Surgical History H/O: hysterectomy History of cardiac radiofrequency ablation History of cardioversion multiple History of colonoscopy History of colostomy History of colostomy reversal History of esophagogastroduodenoscopy (EGD) History of umbilical hernia repair Hx of abdominal surgery Hx of cholecystectomy Hx of laparoscopy Hx of removal of cyst Tubal ligation status Family History Grandmother Diabetes Hypertension Mother Heart disease Hypertension Grandfather Stomach cancer Hypertension Father Pancreatic cancer Hypertension Other No family history of adverse response to anesthesia Denies family history of Ovarian cancer Breast cancer Colorectal cancer Social History Smoking Status: Never smoker Second Hand Exposure: No; Hx Alcohol Use: No Hx Substance Use: No Preferred Language: Syriac Communication Ability: Effective Visual Impairment: No Limitations Hearing Ability: Normal Real Estate Coordinator Required: No Beliefs That Will Affect Care: None marital status: Current Living Situation: Spouse 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 status: retired current occupation: [employer] Feels Safe at Home: Yes Seatbelt Use: always Sunscreen Use: No Assistive Devices: None Review of Systems Review of Systems: All systems reviewed & are unremarkable except as noted in HPI & below Physical Exam Physical Exam: General: patient resting comfortably, NAD, non-toxic in meir earance, AA&O x 4 Skin: warm, dry, intact, no rashes or lesions HEENT: NC/AT, PERRL, EOMI, anicteric sclera, conjunctiva without injection, external ear normal to inspection and nontender, nares patent, moist mucus membranes, dentition intact, no oropharyngeal lesions, neck supple, trachea midline, no LAD, no thyromegaly, no JVD Heart: +S1/S2, irregularly irregular, 2/6 KASIE at LSB Lungs: equal air entry bilaterally, no rales/rhonchi/wheezes Abd: +BS, soft, ND, mild tenderness with deep palpation, no rebound/guarding, no masses/organomegaly/ascites Ext: warm, 2+ pulses in UE/LE bilaterally, no clubbing/cyanosis, trace pitting edema bilateral LEs Neuro: nonfocal, patient AA&O x 4, speech intact, no facial droop, moving all extremities on command with equal strength 5/5 Results & Data Results & Data ([facility]) Vital Signs (Past 12 Hours) Vital Signs Temp Pulse Resp BP Pulse Ox 11/03/20 17:00 92 H 20 161/93 H 98 11/03/20 16:30 85 18 154/96 H 98 11/03/20 16:00 80 16 149/91 H 97 11/03/20 15:42 93 H 18 96 11/03/20 14:30 36.5 C 93 H 18 140/82 96 Laboratory Results Lab Results 11/03/20 11/03/20 11/03/20 Range/Units 14:45 14:45 14:45 WBC 7.71 (4.8-10.8) K/uL RBC 4.13 L (4.2-5.4) M/uL Hgb 13.6 (12.0-16.0) g/dL Hct 40.7 (37-47) % MCV 98.5 (80-100) fL MCH 32.9 (25-34) pg MCHC 33.4 (32-36) g/dL RDW Std Deviation 52.3 H (36.4-46.3) fL RDW Coeff of Rodrigo 14.5 (11.5-14.5) % Plt Count 160 (130-400) K/uL MPV 10.2 (7.4-10.4) fL Immature Gran % (Auto) 0.1 % Neut % (Auto) 90.1 % Lymph % (Auto) 3.4 % [place] % (Auto) 5.7 % Eos % (Auto) 0.6 % Baso % (Auto) 0.1 % Neut # (Auto) 6.94 H (1.4-6.5) K/uL Lymph # (Auto) 0.26 L (1.2-3.4) K/uL [place] # (Auto) 0.44 (0.11-0.59) K/uL Eos # (Auto) 0.05 (0-0.5) K/uL Baso # (Auto) 0.01 (0-0.2) K/uL Immature Gran # (Auto) 0.01 (0.00-0.02) K/uL Sodium 140 (136-145) mmol/L Potassium 3.6 (3.5-5.1) mmol/L Chloride 106 (98-107) mmol/L Carbon Dioxide 30 (21-32) mmol/L Anion Gap 4.0 (3-11) BUN 35 H (7-18) mg/dl Creatinine 1.77 H (0.6-1.2) mg/dl Est Cr Clr Drug Dosing 36.0 ml/min Est GFR ( Amer) 33.6 Est GFR (Non-Af Amer) 29.0 BUN/Creatinine Ratio 19.7 (10-20) Glucose 98 (70-99) mg/dl Calcium 8.7 (8.5-10.1) mg/dl Magnesium 2.3 (1.8-2.4) mg/dl Total Bilirubin 0.9 (0.2-1) mg/dl AST 19 (15-37) U/L ALT 21 (12-78) U/L Alkaline Phosphatase 145 H (45-117) U/L Total Protein 7.2 (6.4-8.2) gm/dl Albumin 3.0 L (3.4-5.0) gm/dl Globulin 4.2 H (2.5-4.0) gm/dl Albumin/Globulin Ratio 0.7 L (0.9-2) Lipase 75 (73-393) U/L TSH 0.879 (0.300-4.500) uIu/ml Urine Color Urine Appearance (Clear) Urine pH (4.5-7.5) Ur Specific [place] (1.000-1.030) Urine Protein (Negative) Urine Glucose (UA) (Negative) Urine Ketones (Negative) Urine Blood (Negative) Urine Nitrite (Negative) Urine Bilirubin (Negative) Urine Urobilinogen (Negative) Ur Leukocyte Esterase (Negative) Urine WBC (Auto) (0-5) /hpf Urine RBC (Auto) (0-4) /hpf U Hyaline Cast (Auto) (0-5) /lpf U Epithel Cells (Auto) (0-5) /lpf Urine Bacteria (Auto) (Negative) Urine Yeast SARS-CoV-2 Ag (Rapid) (Negative) 11/03/20 11/03/20 Range/Units 15:40 17:09 WBC (4.8-10.8) K/uL RBC (4.2-5.4) M/uL Hgb (12.0-16.0) g/dL Hct (37-47) % MCV (80-100) fL MCH (25-34) pg MCHC (32-36) g/dL RDW Std Deviation (36.4-46.3) fL RDW Coeff of Rodrigo (11.5-14.5) % Plt Count (130-400) K/uL MPV (7.4-10.4) fL Immature Gran % (Auto) % Neut % (Auto) % Lymph % (Auto) % [place] % (Auto) % Eos % (Auto) % Baso % (Auto) % Neut # (Auto) (1.4-6.5) K/uL Lymph # (Auto) (1.2-3.4) K/uL [place] # (Auto) (0.11-0.59) K/uL Eos # (Auto) (0-0.5) K/uL Baso # (Auto) (0-0.2) K/uL Immature Gran # (Auto) (0.00-0.02) K/uL Sodium (136-145) mmol/L Potassium (3.5-5.1) mmol/L Chloride (98-107) mmol/L Carbon Dioxide (21-32) mmol/L Anion Gap (3-11) BUN (7-18) mg/dl Creatinine (0.6-1.2) mg/dl Est Cr Clr Drug Dosing ml/min Est GFR ( Amer) Est GFR (Non-Af Amer) BUN/Creatinine Ratio (10-20) Glucose (70-99) mg/dl Calcium (8.5-10.1) mg/dl Magnesium (1.8-2.4) mg/dl Total Bilirubin (0.2-1) mg/dl AST (15-37) U/L ALT (12-78) U/L Alkaline Phosphatase (45-117) U/L Total Protein (6.4-8.2) gm/dl Albumin (3.4-5.0) gm/dl Globulin (2.5-4.0) gm/dl Albumin/Globulin Ratio (0.9-2) Lipase (73-393) U/L TSH (0.300-4.500) uIu/ml Urine Color Yellow Urine Appearance Turbid A (Clear) Urine pH 5.0 (4.5-7.5) Ur Specific [place] 1.016 (1.000-1.030) Urine Protein Trace H (Negative) Urine Glucose (UA) Negative (Negative) Urine Ketones Negative (Negative) Urine Blood 3+ H (Negative) Urine Nitrite Negative (Negative) Urine Bilirubin Negative (Negative) Urine Urobilinogen Negative (Negative) Ur Leukocyte Esterase 3+ H (Negative) Urine WBC (Auto) >30 H (0-5) /hpf Urine RBC (Auto) 10-30 H (0-4) /hpf U Hyaline Cast (Auto) 1-5 (0-5) /lpf U Epithel Cells (Auto) 10-20 H (0-5) /lpf Urine Bacteria (Auto) Negative (Negative) Urine Yeast Not Reportable SARS-CoV-2 Ag (Rapid) Negative (Negative) Diagnostic Findings CT SCAN OF THE ABDOMEN AND PELVIS WITHOUT IV CONTRAST CLINICAL HISTORY: Hematuria. Generalized abdominal pain radiating to the back. COMPARISON STUDY: Abdominal CT dated 07/31/2020 end 03/24/2018. TECHNIQUE: CT scan of the abdomen and pelvis is performed from the lung bases to the proximal femora. Images are reviewed in the axial, sagittal, and coronal planes. IV contrast was not administered for this examination as per the referring clinician. A dose lowering technique was utilized adhering to the principles of ALARA. CT DOSE: 1529.91 mGy.cm FINDINGS: Lung bases: The heart is enlarged and without pericardial effusion. There is a small right pleural effusion with associated atelectasis. No airspace consolidation is seen typical for pneumonia. Liver: The unenhanced liver is normal in size and heterogeneous in attenuation. Nodularity of the surface contour suggests early change of cirrhosis. There is minimal central intrahepatic biliary ductal dilatation. Gallbladder: Surgically absent noting clips in the gallbladder fossa. Spleen: Normal in size and attenuation. Pancreas: The unenhanced pancreas is moderately atrophic and grossly unremarkable. Adrenal glands: Unremarkable. Kidneys: The unenhanced kidneys demonstrate cortical atrophy. There is moderate right-sided hydronephrosis. No obstructing calculus is identified, and the right ureter is normal in caliber. Question abnormal soft tissue in the region of the right ureteropelvic junction (axial image #178). Inflammatory stranding and trace fluid is seen around the right kidney. There is no left-sided h ydronephrosis. There are 2 nonobstructing left renal calculi which measure up to 12 mm. No right renal calculi are seen. Bilateral renal cysts measure up to 4.7 cm. Abdominal vasculature: The abdominal aorta is normal in course and caliber noting advanced atherosclerotic calcification. Stomach and bowel: Postoperative change is consistent with a history of Ngoc-en-Y gastric bypass surgery. Mild dilatation at the distal anastomosis is likely related to denervation. There is mild colonic diverticulosis without CT evidence of acute diverticulitis. No bowel obstruction is seen. The appendix is well-visualized and normal. Peritoneum: There is no intraperitoneal free air or abdominal ascites. Mesenteric stranding and nodularity is unchanged from prior studies. Lymphadenopathy: There are prominent subcentimeter retroperitoneal lymph nodes. An aortocaval node on image #144 measures 7 mm in short axis. Pelvic viscera: The bladder is normal as visualized. The uterus is surgically absent. No adnexal lesion is seen. Skeletal structures: The skeletal structures are osteopenic. No lytic or blastic lesions are seen. There is mild lumbosacral spondylosis. Low attenuation expansile lesions are again seen extending the left neural foramina at L3-L4 and L4-L5. IMPRESSION: 1. There is moderate right hydronephrosis with associated perinephric stranding and trace fluid. No right renal or ureteral calculi are identified, and there is suspected abnormal soft tissue within the region of the ureteropelvic junction. An obstructing urothelial lesion is not excluded. Follow-up with urology is recommended. 2. There are nonobstructing left renal calculi. 3. Cardiomegaly and small right pleural effusion. 4. Postoperative change is consistent with a Ngoc-en-Y gastric bypass procedure. No bowel obstruction is seen. 5. The appearance of the liver suggests early change of cirrhosis. 6. Additional findings as above. ACT 112: Negative or not required by law. Electronically signed by: Norberto Martinez M.D. 11/01/2020 3:35 PM Dictated: 11/01/20 1516Transcribed: 11/01/20 1516 ECG Additional Comments: DICTATED BY: Christopher Monzon MD Test Reason : Blood Pressure : / mmHG Vent. Rate : 096 BPM Atrial Rate : 108 BPM P-R Int : 000 ms QRS Dur : 098 ms QT Int : 332 ms P-R-T Axes : 000 -05 -03 degrees QTc Int : 419 ms Atrial fibrillation Abnormal ECG Confirmed by Christopher Monzon ([id number]) on 11/03/2020 4:02:50 PM Referred By: REFERRED SELF Confirmed By:Ramon Monzon Code Status & VTE Plan Code Status Full PG Care Time/CCT Total # of Minutes Spent Total Time Spent with Patient: Total time spent is greater than 50% in coordination of care (as documented) at patient's floor/unit and/or counseling patient: Coding Level of Care Code 29081 OBS Care - Level 3 Diagnoses Infection due to ESBL-producing Escherichia coli A49.8; Z16.12 Nausea & vomiting R11.2 Vomiting Intractability: non-intractable Vomiting type: unspecified Atrial fibrillation I48.91 Dehydration E86.0 Hypertension I10 Hypertension type: essential hypertension GERD (gastroesophageal reflux disease) K21.9 Esophagitis presence: without esophagitis TIA (transient ischemic attack) G45.9 Depression F32.9 Depression Type: unspecified Hyperlipidemia LDL goal <70 E78.5 Chronic diastolic congestive heart failure I50.32 Vitamin D deficiency E55.9 (1) Nausea & vomiting Vomiting Intractability: non-intractable Vomiting type: unspecified Qualified Code(s): R11.2 - Nausea with vomiting, unspecified (2) Hypertension Hypertension type: essential hypertension Qualified Code(s): I10 - Essential (primary) hypertension (3) GERD (gastroesophageal reflux disease) Esophagitis presence: without esophagitis Qualified Code(s): K21.9 - Gastro- esophageal reflux disease without esophagitis (4) Depression Depression Type: unspecified Qualified Code(s): F32.9 - Major depressive disorder, single episode, unspecified
[2020-11-03] MEDS ORDERED: ACETAMINOPHEN 325 MG TAB PO PRN (19:41)
[2020-11-03] MEDS ORDERED: ONDANSETRON INJ 2 MG/ML 2 ML VIAL IV PRN (19:41)
[2020-11-03] MEDS ORDERED: POLYETHYLENE (MIRALAX) 17 GM PACK PO PRN (19:41)
[2020-11-03] MEDS: SODIUM CHLORIDE 0.9% 1000ML 1,000 ML IV SCH (19:54)
[2020-11-03] MEDS ORDERED: PROMETHAZINE HCL 6.25 MG in SODIUM CHLORIDE 0.9% 50 ML IV STA (20:08)
[2020-11-03] MEDS: METOPROLOL SUCC 50MG EXT REL TAB PO SCH (20:44)
[2020-11-03] MEDS: APIXABAN 5 MG TABLET PO SCH (20:44)
[2020-11-04] MEDS: SODIUM CHLORIDE 0.9% 1000ML 1,000 ML IV SCH (06:19)
[2020-11-04 08:02] LABS: Basophils # (auto) 0.01 K/uL (0-0.2); Basophils % (auto) 0.2 %; Eosinophils # (auto) 0.09 K/uL (0-0.5); Eosinophils % (auto) 1.5 %; Hematocrit (blood only) 40.7 % (37-47); Hemoglobin 13.3 g/dL (12.0-16.0); Immature Granulocytes # (auto) 0.01 K/uL (0.00-0.02); Immature Granulocytes % (auto) 0.2 %; Lymphocytes # (auto) 0.36 K/uL (1.2-3.4); Lymphocytes % (auto) 6.1 %; Mean Corpuscular Hemoglobin 32.1 pg (25-34); Mean Corpuscular Hgb Conc 32.7 g/dL (32-36); Mean Corpuscular Volume 98.3 fL (80-100); Mean Platelet Volume 9.7 fL (7.4-10.4); Monocytes # (auto) 0.36 K/uL (0.11-0.59); Monocytes % (auto) 6.1 %; Neutrophils # (auto) 5.05 K/uL (1.4-6.5); Neutrophils % (auto) 85.9 %; Platelet Count 138 K/uL (130-400); RDW Coefficient of Variation 14.5 % (11.5-14.5); Red Blood Count 4.14 M/uL (4.2-5.4); White Blood Count 5.88 K/uL (4.8-10.8)
[2020-11-04 08:36] LABS: BUN Creatinine Ratio 19.8 (10-20); Calcium 8.8 mg/dl (8.5-10.1); Creatinine Clr Calc Pharmacy 48.9 ml/min; Est GFR (African American) 48.4; Est GFR (Non-African American) 41.7; Potassium 3.4 mmol/L (3.5-5.1)
[2020-11-04] MEDS: METOPROLOL SUCC 50MG EXT REL TAB PO SCH (08:56)
[2020-11-04] MEDS: APIXABAN 5 MG TABLET PO SCH (08:56)
[2020-11-04] MEDS ORDERED: FLUoxetine HCL 20 MG CAP PO SCH ×2 (09:00)
[2020-11-04] MEDS ORDERED: CHOLECALCIFEROL 1,000 UNITS 25 MCG TAB PO SCH (09:00)
[2020-11-04] MEDS ORDERED: ZINC SULFATE 220 MG CAPSULE PO SCH (09:00)
[2020-11-04] MEDS ORDERED: ASPIRIN 81 MG ECTAB PO SCH (09:00)
[2020-11-04] MEDS ORDERED: dilTIAZem HCL 240 MG CAPCR PO SCH (09:00)
[2020-11-04] MEDS ORDERED: PANTOprazole 40 MG TAB PO SCH (09:00)
[2020-11-04] MEDS ORDERED: ATORVASTATIN 40 MG TAB PO SCH (09:00)
[2020-11-04] MEDS ORDERED: FUROSEMIDE 80 MG TAB PO SCH (09:00)
--- NOTE | 2020-11-04 14:23 | Discharge Summary ---
Date of Service November 04, 2020 Admission HPI Per Admitting Provider Tea Dawkins is a 70yo C female with history of AF, HTN/HLP/GERD presenting with nausea/vomiting and decreased oral intake. She was seen in the ER yesterday 11/01/20 and diagnosed with pyelonephritis with right sided hydronephrosis. She was given Ceftriaxone in the ER and discharged home on Keflex. She returns today with persistent symptoms. Urine culture from yesterday with ESBL E.coli Sn to Cefoxitin, Cipro, Ertapenem, Levofloxacin, Meropenem, Nitrofurantoin and Zosyn. No additional complaints at this time. Rapid Covid-19 antigen testing performed in ER and is NEGATIVE ER Course: Ertapenem 1gm, Zofran 4mg Admission Exam Per Admitting Provider General: patient resting comfortably, NAD, non-toxic in appearance, AA&O x 4 Skin: warm, dry, intact, no rashes or lesions HEENT: NC/AT, PERRL, EOMI, anicteric sclera, conjunctiva without injection, external ear normal to inspection and nontender, nares patent, moist mucus membranes, dentition intact, no oropharyngeal lesions, neck supple, trachea midline, no LAD, no thyromegaly, no JVD Heart: +S1/S2, irregularly irregular, 2/6 KASIE at LSB Lungs: equal air entry bilaterally, no rales/rhonchi/wheezes Abd: +BS, soft, ND, mild tenderness with deep palpation, no rebound/guarding, no masses/organomegaly/ascites Ext: warm, 2+ pulses in UE/LE bilaterally, no clubbing/cyanosis, trace pitting edema bilateral LEs Neuro: nonfocal, patient AA&O x 4, speech intact, no facial droop, moving all extremities on command with equal strength 5/5 Principal Diagnosis Pyelonephritis Discharge Exam Constitutional well developed, well nourished and cooperative; no acute distress Eyes + anicteric sclerae ENMT external ear and nose normal, oropharynx normal Neck normal visual inspection and trachea midline Respiratory normal respiratory effort, lungs clear to auscultation Cardiovascular Rate/Rhythm: + irregularly irregular Heart Sounds: normal S1 and normal S2 Extremities: + pedal edema (trace) Gastrointestinal (Abdomen) Inspection/Auscultation: normal bowel sounds Percussion/Palpation: + abdomen tender Skin no rashes, warm and dry Psychiatric A+Ox3, euthymic affect Genitourinary no CVA tenderness Discharge Data Allergies Allergy/AdvReac Type Severity Reaction Status Date / Time No Known Allergies Allergy Verified 11/03/20 16:12 Consultations 11/03/20 16:46 ED Decision to Admit Stat Hospital Course (1) Pyelonephritis: Mrs. Dawkins is a 70 yo F who was admitted to [facility] for pyelonephritis. On 11/01/20 she came to the emergency department at which time her urinalysis was concerning for infection. She was given a dose of Ceftriaxone and sent out with a script for cephalexin. She was contacted on 11/03/20 by our staff when her urine culture grew multi-drug resistant ESBL e.coli - bacteria was sensitive to Cefoxitin, Cipro, Ertapenem, Levofloxacin, Meropenem, Nitrofurantoin and Zosyn. Mrs. Dawkins denies any risk factors for multi-drug resistant bacteria - she does not reside in a alf care facility, she had no recent antibiotic use or hospitalizations. Has had several UTIs in the past, but not recurrent infections. Mrs. Dawkins was started on IV Ertapenum and IV saline. She remained afebrile and was hemodynamically stable throughout her hospitalization. Her WBC normalized, and her creatinine trended down to 1.6. She was discharged with direction to complete 5 days of Ciprofloxacin 500mg, PO, BID for 5 days (total of a 7 day antimicrobial course). A cat scan was obtained of abdomen on admission which showed 2 non-obstructing stones in the left kidney, bilateral renal cysts and a small tissues abnormality in the R ureteropelvic junction. She has follow up arranged with Dr. Barnett in urology next week. Atrial fibrillation: - chronic. Rate controlled -Continue Metoprolol -Continue Cardizem -Continue Apixaban Hypertension: -Continue Metoprolol -Continue Diltiazem GERD (gastroesophageal reflux disease): - Chronic. Continue Protonix 40mg po qAM TIA (transient ischemic attack): - Chronic. -Continue ASA 81mg po daily -Continue Atorvastatin 40mg po daily Depression: Chronic. Stable -Continue Prozac 60mg po qdaily Hyperlipidemia LDL goal <70: Chronic -Continue Atorvastatin Chronic diastolic congestive heart failure: Chronic. -Continue Metoprolol -Continue Lasix Vitamin D deficiency: Chronic -Continue Vitamin D supplementation Total Time Total Time Spent Total Time Spent (In Minutes): see attending attestation Discharge Plan Discharge Items Patient Disposition: Home - Self-Care Reason For Visit: ESBL UTI, PELVIC PAIN Discharge Diagnosis: Pyelonephritis Activity: Resume your previous activity Non-emergency contact: Primary Care Provider Call non-emergency contact if: you have any medication questions and your symptoms worsen Follow-up/Referrals: Donal Guevara MD [Primary Care Provider] - 11/08/20 9:00 am (Your appointment is with the physician loan assistant, Angela Palomino.If you need to change this appointment, please call [phone].) Diet: Regular Addtl Attending Provider Instructions: You were hospitalized at [facility] for a urinary tract infection that ascended up from the bladder to the kidneys. This kind of infection is known as pyelonephritis. Your urine culture from 11/01/20 grew a strain of e.coli (bacteria) that was resistant to multiple antibiotics - that is why the antibiotic you were given initially in the emergency department on 11/01 did not work (the bacteria was resistant to it). A cat scan of your abdomen and pelvis was obtained during your hospital stay, which showed two stones in the left kidney, cysts on both kidneys, and an abnormality of the soft tissue on the R side of your urinary tract. Please follow up with Dr. Franco next week to discuss these findings. During your overnight hospital stay, you were treated with a potent IV antibiotic that we know (from the culture results) will kill the bacteria. You clinically improved while under our care. In order to totally treat your infection, you will need to complete the following antibiotic course at home: Ciprofloxacin, 500mg, twice daily for 5 days. Please follow up with your primary care provider within 1 week of hospital discharge. Pending Studies at Discharge: Yes Stand-Alone Forms: My [facility] Kiosked, Smoking Cessation Medications and DC Order Prescriptions: New ciprofloxacin HCl 500 mg tablet 500 mg PO BID 5 Days Qty: 10 RF: 0 Continued metoprolol succinate [Toprol XL] 50 mg tablet extended release 24 hr 50 mg PO BID Qty: 180 RF: 3 Eliquis 5 mg tablet 5 mg PO BID Qty: 180 RF: 3 aspirin 81 mg tablet,delayed release (DR/EC) 81 mg PO QAM RF: 0 diltiazem HCl 240 mg capsule,extended release 24hr 240 mg PO QAM RF: 0 pantoprazole 40 mg tablet,delayed release (DR/EC) 40 mg PO QAM RF: 0 zinc 50 mg Tablet 100 mg PO QAM RF: 0 cholecalciferol (vitamin D3) [Vitamin D3] 25 mcg (1,000 unit) Capsule 1,000 unit PO QAM RF: 0 fluoxetine 40 mg capsule 40 mg PO QAM RF: 0 furosemide 40 mg tablet 80 mg PO QAM RF: 0 atorvastatin 40 mg tablet 40 mg PO QAM RF: 0 fluoxetine 20 mg capsule 20 mg PO QAM RF: 0 Discharge Orders: Discharge Order (Routine); Ordered 11/04/20 Ordered By: Kimber Moraes Admission Data Admit Date/Time: 11/03/20 17:27 Attending Provider: Donal Rhoades Admit Provider: Bindu Kumar Primary Care Provider: Donal Guevara Other Providers: Bindu Kumar Other Interventions: Discharge Summary Assessment (RN) Last Done: 11/04/20 16:18 Supervising Physician Co-Signing Physician Notes Attending attestation Pt seen and examined in concert with Dr. Moraes. In agreement with the documented findings as noted in the resident documentation with any exceptions or additions as noted here. 70 y/o female h/o AF, HTN p/w UTI, complicated PErsistent but improved suprapubic discomfort. Tolerating POI liquids and some food without nausea, though still decreased appetite. On examination, S1/S2 nl RRR no MCG. CTAB. Abd TTP suprapubically BS+ve UTI, complicated - complete course of ciprofloxacin Else see resident documentation as noted. Resident Activity Tracking Resident Involvement: Resident Care Provided Care Provided: Adult Hospital Medicine
[2020-11-04] MEDS ORDERED: ERTAPENEM SODIUM 1,000 MG in SODIUM CHLORIDE 0.9% 50 ML IV SCH (16:00)
== END 2020-11-04 17:00 | disposition home or self-care (01) ==
LOC: 2W 14:26 → ED 14:26 → SUATTDRO 17:27 → 2W 18:55

== ENCOUNTER 2021-04-07 16:59 | Observation (INO) ==
[2021-04-07] MEDS ORDERED: ONDANSETRON INJ 2 MG/ML 2 ML VIAL IV STA (18:42)
--- NOTE | 2021-04-07 19:08 | Emergency Department Note ---
Impression & Plan Abdominal pain, acute, epigastric, Abnormal results of liver function studies, Urinary tract infection, Abnormal computed tomography of abdomen and pelvis ED Provider Note NAME: GUSTABO MCKEON AGE: 70 SEX: F : 1950 ARRIVES VIA: Walk-In INFORMANT: Patient, ED PROVIDER(S): Michael Alcantara DO CHIEF COMPLAINT: Epigastric pain HPI: The patient is a 70-year-old female who presented to the emergency department with epigastric pain. She had an acute onset of epigastric pain which began a few hours prior to arrival. The patient states that she noticed that it radiates into her lower abdomen. She was short of breath when the pain started. She denies having any chest pain or back pain at this time. She denies having any nausea. She denies had any lower extremity swelling or pain. She did take 2 of her outpatient prescribed pain pills with some relief of her symptoms. The pain continued so she presented to the emergency department for further evaluation. Pain is worsened with ambulation as well as palpation over the abdomen. She denies having any recent trauma. She was not seen by her primary care physician for the symptoms today. She does have a history of kidney problems and had a CT of the abdomen and pelvis as recently as March. ROS: See above HPI for pertinent positives & negatives. A total of 10 systems reviewed and were otherwise negative. PAST MEDICAL HISTORY: See Below PAST SURGICAL HISTORY: See Below FAMILY HISTORY: See Below SOCIAL HISTORY: See Below HOME MEDICATIONS: See Below ALLERGIES: See Below VITALS: See Below PHYSICAL EXAMINATION: GENERAL: The patient is awake and alert. She is somewhat anxious appearing and appears to be uncomfortable. EYES: The conjunctivae are clear. The pupils are round and reactive. EARS, NOSE, MOUTH AND THROAT: The nose is without any evidence of any deformity. NECK: The neck is nontender and supple. RESPIRATORY: Normal respiratory effort is noted there is no evidence of wheezing rhonchi or rales CARDIOVASCULAR: Irregular rhythm was noted to auscultation. There was no definite murmur. GASTROINTESTINAL: The abdomen is mildly distended but soft. There is tenderness to palpation which is significant in the epigastric region as well as lower abdomen. MUSCULOSKELETAL/EXTREMITIES: There is no evidence of gross deformity full range of motion is noted in the hips and shoulders. SKIN: There is no obvious evidence of any rash. Trace pedal edema was noted bilaterally. NEUROLOGIC: Patient is awake alert and oriented x3. MEDICAL DECISION MAKING: The patient is a 70-year-old female who presented to the emergency department for an evaluation of epigastric pain. The patient had very significant reproducible upper abdominal pain as well as lower abdominal pain. The patient was treated with IV fluids and IV pain medication emergency department. She was also treated with IV antibiotics. I discussed the patient's laboratory and radiographic studies with her. She was found to have elevation in her liver function studies. She did have a mild elevation in her pancreas levels however I do not feel this is consistent with pancreatitis. The patient's other CT fi ndings appear to be consistent with her previous findings specifically the hydronephrosis in the right kidney. Given the patient's worsening pain I discussed her case with the on-call [facility] hospitalist. They have agreed to evaluate the patient in the emergency department for further management and disposition. Triage Nursing notes reviewed. Prior medical records reviewed Vital Signs: reviewed and remarkable for no significant abnormalities Differential diagnosis: Etiologies such as appendicitis, diverticulitis, obstruction, inflammatory bowel disease, renal colic, PUD, biliary pathology, pancreatitis, mesenteric ischemia, aortic pathology, infections, genitourinary, UTI, perforated viscus, as well as others were entertained. ER treatment provided: See below Diagnostics interpreted by me: ECG: EKG was obtained in the emergency department. My interpretation is atrial fibrillation at 83 bpm. There was no PVCs noted. There was no acute ST segment abnormalities noted. This was compared to a tracing from November [id number]. No significant changes were noted. Cardiac Monitoring: An order was placed for continuous cardiac monitoring. The monitor shows a rate of 85 beats per with sinus rhythm. Laboratory studies: As stated above and show below. Imaging studies: See below Consultation(s): Dr. Kumar with the [facility] hospitalist group was notified about the patient. Past Med/Surg History Medical History Anemia HX OF - IRON INFUSION SEVERAL MONTHS AGO Atrial fibrillation Dx approx 5 years ago - follows w/ Dr. Brewer (s/p remote pulmonary venous ablation X 2, on Eliquis and multiple negative chronotropes Cardiac murmur Mild-moderate mitral regurgitation on 12/2019 echo, mild TR and [place] Chronic diastolic congestive heart failure GERD (gastroesophageal reflux disease) History of skin cancer & REMOVED History of sleep apnea HX SLEEP STUDY AND MACHINE, SINCE D/C'D - SLEEP APNEA RESOLVED Hyperlipemia Hypertension Kidney stones Lesion of ureter biopsy 12/29/2020 (pt unsure of results) Morbid obesity PFO (patent foramen ovale) Suspected per records Recurrent pancreatitis HX OF / 3-4 YR AGO SOB (shortness of breath) on exertion TIA (transient ischemic attack) 2018- [place] - no residual -NO ISSUES SINCE Surgical History H/O: hysterectomy History of cardiac radiofrequency ablation D/T AFIB - PT REPORTS HAD 1 BUT MAYBE 2 - NOT SURE DATES ([place]) History of cardioversion multiple History of colonoscopy History of colostomy History of colostomy reversal History of cystoscopy and Right Ureteroscopy with stent. Following with Dr Rowe. 12/2020. History of esophagogastroduodenoscopy (EGD) History of tubal ligation History of umbilical hernia repair Hx of abdominal surgery FOR REMOVAL OF CYST - PT NOT SURE TYPE Hx of cholecystectomy Hx of laparoscopy Family History Grandmother Diabetes Hypertension Mother Heart disease Hypertension Grandfather Stomach cancer Hypertension Father Pancreatic cancer Hypertension Other No family history of adverse response to anesthesia Denies family history of Ovarian cancer Breast cancer Colorectal cancer Social History Smoking Status: Never smoker Second Hand Exposure: No; Hx Alcohol Use: No Hx Substance Use: Yes Substance Use Type Other:: last use was 40 years ago Preferred Language: Romanian Communication Ability: Effective Visual Impairment: No Limitations Hearing Ability: Normal Hand Former Required: No Beliefs That Will Affect Care: None marital status: Current Living Situation: Spouse 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 status: retired 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 other: [employer] Feels Safe at Home: Yes Seatbelt Use: always Sunscreen Use: No Assistive Devices: None Allergies Allergies Allergy/AdvReac Type Severity Reaction Status Date / Time No Known Allergies Allergy Verified 04/07/21 19:20 Home Meds Home Medications Medication Instructions Recorded Confirmed aspirin 81 mg tablet,delayed 81 mg PO QAM tab 09/02/19 04/07/21 release atorvastatin 40 mg PO QAM 11/03/20 04/07/21 fluoxetine 20 mg PO QAM 11/03/20 04/07/21 fluoxetine 40 mg PO QAM 11/03/20 04/07/21 cholecalciferol (vitamin D3) 25 2,000 unit PO QAM cap 02/07/21 04/07/21 mcg (1,000 unit) capsule furosemide 100 mg PO QAM 03/24/21 04/07/21 losartan 25 mg PO QAM 03/24/21 04/07/21 Previous Rx's Medication Instructions Recorded apixaban 5 mg tablet 5 mg PO BID #180 tab 08/25/20 diltiazem HCl 240 mg 240 mg PO QAM #90 cap 12/09/20 capsule,extended release 24 hr hydrocodone-acetaminophen 1 tab PO Q6H PRN #15 tab 12/29/20 nystatin 100,000 unit/gram topical 1 applic TOPICAL BID PRN #60 g 02/06/21 powder metoprolol succinate 50 mg 50 mg PO BID #180 tab 02/17/21 tablet,extended release 24 hr pantoprazole 40 mg tablet,delayed 40 mg PO BID #90 tab 03/09/21 release Results & Data (ED) Vital Signs Vital Signs - 24 hr 04/07/21 17:08 04/07/21 20:00 04/07/21 20:30 Temperature 36.4 C L Temperature Source Oral Pulse Rate 75 79 81 Pulse Rate from SpO2 Sensor 76 81 Pulse Rhythm Regular Pulse Strength Normal Respiratory Rate 20 14 15 Respiratory Effort / Characteristics Non-Labored Spontaneous Respiratory Depth Normal Respiratory Pattern Regular Blood Pressure 127/80 140/92 Blood Pressure Mean 95 108 Pulse Oximetry 96 97 97 Oxygen Delivery Method Room Air Sepsis Recent Fever Within 48 Hours No Sepsis New/Unexplained Change in Mental Status No Sepsis Action Taken by Nursing No Action Required 04/07/21 23:00 04/07/21 23:30 04/07/21 23:33 Temperature Temperature Source Pulse Rate 88 87 82 Pulse Rate from SpO2 Sensor 85 75 84 Pulse Rhythm Pulse Strength Respiratory Rate 19 13 13 Respiratory Effort / Characteristics Respiratory Depth Respiratory Pattern Blood Pressure 124/84 Blood Pressure Mean 97 Pulse Oximetry 95 96 97 Oxygen Delivery Method Room Air Room Air Room Air Sepsis Recent Fever Within 48 Hours Sepsis New/Unexplained Change in Mental Status Sepsis Action Taken by Nursing 04/08/21 00:00 04/08/21 00:30 Temperature Temperature Source Pulse Rate 78 83 Pulse Rate from SpO2 Sensor 80 79 Pulse Rhythm Pulse Strength Respiratory Rate 17 22 Respiratory Effort / Characteristics Respiratory Depth Respiratory Pattern Blood Pressure Blood Pressure Mean Pulse Oximetry 96 96 Oxygen Delivery Method Room Air Room Air Sepsis Recent Fever Within 48 Hours Sepsis New/Unexplained Change in Mental Status Sepsis Action Taken by [facility] Medications Current Medication List: was personally reviewed by me Laboratory Data Attestation: I reviewed the patient's lab results. Result diagrams: 04/07/21 20:30 04/07/21 20:30 Lab Results 04/07/21 04/07/21 04/07/21 Range/Units 20:30 20:30 20:30 WBC 8.89 (4.8-10.8) K/uL RBC 4.15 L (4.2-5.4) M/uL Hgb 13.3 (12.0-16.0) g/dL Hct 40.5 (37-47) % MCV 97.6 (80-100) fL MCH 32.0 (25-34) pg MCHC 32.8 (32-36) g/dL RDW Std Deviation 49.1 H (36.4-46.3) fL RDW Coeff of Rodrigo 13.8 (11.5-14.5) % Plt Count 204 (130-400) K/uL MPV 9.3 (7.4-10.4) fL Immature Gran % (Auto) 0.2 % Neut % (Auto) 86.0 % Lymph % (Auto) 7.9 % [place] % (Auto) 5.6 % Eos % (Auto) 0.2 % Baso % (Auto) 0.1 % Neut # (Auto) 7.64 H (1.4-6.5) K/uL Lymph # (Auto) 0.70 L (1.2-3.4) K/uL [place] # (Auto) 0.50 (0.11-0.59) K/uL Eos # (Auto) 0.02 (0-0.5) K/uL Baso # (Auto) 0.01 (0-0.2) K/uL Immature Gran # (Auto) 0.02 (0.00-0.02) K/uL ESR 16 (0-30) mm/hr PT 10.6 (9.0-12.0) Seconds INR 1.0 (0.9-1.1) APTT 23.2 (21.0-31.0) Seconds PTT Ratio 0.9 Sodium (136-145) mmol/L Potassium (3.5-5.1) mmol/L Chloride (98-107) mmol/L Carbon Dioxide (21-32) mmol/L Anion Gap (3-11) BUN (7-18) mg/dl Creatinine (0.6-1.2) mg/dl Est Cr Clr Drug Dosing ml/min Est GFR ( Amer) Est GFR (Non-Af Amer) BUN/Creatinine Ratio (10-20) Glucose (70-99) mg/dl Calcium (8.5-10.1) mg/dl Total Bilirubin (0.2-1) mg/dl AST (15-37) U/L ALT (12-78) U/L Alkaline Phosphatase (45-117) U/L Troponin I (0-0.045) ng/ml C-Reactive Protein (0-0.29) mg/dl Total Protein (6.4-8.2) gm/dl Albumin (3.4-5.0) gm/dl Globulin (2.5-4.0) gm/dl Albumin/Globulin Ratio (0.9-2) Lipase (73-393) U/L Urine Color Urine Appearance (Clear) Urine pH (4.5-7.5) Ur Specific [place] (1.000-1.030) Urine Protein (Negative) Urine Glucose (UA) (Negative) Urine Ketones (Negative) Urine Blood (Negative) Urine Nitrite (Negative) Urine Bilirubin (Negative) Urine Urobilinogen (Negative) Ur Leukocyte Esterase (Negative) Urine WBC (Auto) (0-5) /hpf Urine RBC (Auto) (0-4) /hpf U Hyaline Cast (Auto) (0-5) /lpf U Epithel Cells (Auto) (0-5) /lpf Urine Bacteria (Auto) (Negative) Urine Yeast (None Prsent) COVID-19 Eval Order 04/07/21 04/07/21 04/07/21 Range/Units 20:30 22:35 23:51 WBC (4.8-10.8) K/uL RBC (4.2-5.4) M/uL Hgb (12.0-16.0) g/dL Hct (37-47) % MCV (80-100) fL MCH (25-34) pg MCHC (32-36) g/dL RDW Std Deviation (36.4-46.3) fL RDW Coeff of Rodrigo (11.5-14.5) % Plt Count (130-400) K/uL MPV (7.4-10.4) fL Immature Gran % (Auto) % Neut % (Auto) % Lymph % (Auto) % [place] % (Auto) % Eos % (Auto) % Baso % (Auto) % Neut # (Auto) (1.4-6.5) K/uL Lymph # (Auto) (1.2-3.4) K/uL [place] # (Auto) (0.11-0.59) K/uL Eos # (Auto) (0-0.5) K/uL Baso # (Auto) (0-0.2) K/uL Immature Gran # (Auto) (0.00-0.02) K/uL ESR (0-30) mm/hr PT (9.0-12.0) Seconds INR (0.9-1.1) APTT (21.0-31.0) Seconds PTT Ratio Sodium 140 (136-145) mmol/L Potassium 4.6 D (3.5-5.1) mmol/L Chloride 107 (98-107) mmol/L Carbon Dioxide 28 (21-32) mmol/L Anion Gap 5.0 (3-11) BUN 34 H (7-18) mg/dl Creatinine 1.29 H (0.6-1.2) mg/dl Est Cr Clr Drug Dosing 53.6 ml/min Est GFR ( Amer) 49.3 Est GFR (Non-Af Amer) 42.5 BUN/Creatinine Ratio 26.7 H (10-20) Glucose 121 H (70-99) mg/dl Calcium 8.7 (8.5-10.1) mg/dl Total Bilirubin 0.8 (0.2-1) mg/dl AST 222 H (15-37) U/L ALT 121 H (12-78) U/L Alkaline Phosphatase 281 H (45-117) U/L Troponin I < 0.015 (0-0.045) ng/ml C-Reactive Protein < 0.29 (0-0.29) mg/dl Total Protein 6.9 (6.4-8.2) gm/dl Albumin 3.4 (3.4-5.0) gm/dl Globulin 3.5 (2.5-4.0) gm/dl Albumin/Globulin Ratio 1.0 (0.9-2) Lipase 651 H (73-393) U/L Urine Color Yellow Urine Appearance Cloudy A (Clear) Urine pH 5.0 (4.5-7.5) Ur Specific [place] 1.017 (1.000-1.030) Urine Protein Negative (Negative) Urine Glucose (UA) Negative (Negative) Urine Ketones Negative (Negative) Urine Blood Trace H (Negative) Urine Nitrite Negative (Negative) Urine Bilirubin Negative (Negative) Urine Urobilinogen Negative (Negative) Ur Leukocyte Esterase 2+ H (Negative) Urine WBC (Auto) >30 H (0-5) /hpf Urine RBC (Auto) 0-4 (0-4) /hpf U Hyaline Cast (Auto) 1-5 (0-5) /lpf U Epithel Cells (Auto) >30 H (0-5) /lpf Urine Bacteria (Auto) Negative (Negative) Urine Yeast Budding A (None Prsent) COVID-19 Eval Order [facility]FluRsv at [facility] Administered Medications Fentanyl Citrate (Fentanyl Citrate 100 Mcg/2 Ml Vial) 50 mcg IV Q15M PRN PRN Reason: Pain Stop: 04/21/21 18:41 Last Admin: 04/07/21 20:35 Dose: 50 mcg Documented by: [id number] Discontinued Medications Piperacillin Sod/Tazobactam Sod (Zosyn) 4.5 gm in 120 mls @ 240 mls/hr IV NOW ONE Stop: 04/08/21 00:10 Last Infusion: 04/08/21 00:33 Dose: 0 mls/hr Documented by: [id number] Admin: 04/07/21 23:59 Dose: 240 mls/hr Documented by: [id number] Ioversol (Optiray 300 100ml) 86 ml IV ONCE ONE Stop: 04/07/21 21:34 Last Admin: 04/07/21 21:34 Dose: 86 ml Documented by: [id number] Ondansetron HCl (Ondansetron Inj 2 Mg/Ml 2 Ml Vial) 4 mg IV NOW STA Stop: 04/07/21 18:43 Last Admin: 04/07/21 20:35 Dose: 4 mg Documented by: [id number] Imaging Data Radiologist's Impression: Chest X-Ray 04/07/21 18:42 SINGLE VIEW CHEST CLINICAL HISTORY: Epigastric abdominal pain. FINDINGS: An AP, portable, upright chest radiograph is compared to study dated 12/23/2020. The heart is enlarged. The pulmonary vasculature is noncongested. Chronic interstitial thickening is similar to previous. There is mild bibasilar atelectasis. The lungs and pleural spaces are otherwise clear. No pneumothorax is seen. The skeletal structures are osteopenic. The bony thorax is grossly intact. IMPRESSION: Cardiomegaly with no active disease in the chest. ACT 112: Negative or not required by law. Electronically signed by: Norberto Martinez M.D. 04/07/2021 8:00 PM Abdomen/Pelvis CT 04/07/21 18:45 CT SCAN OF THE ABDOMEN AND PELVIS WITH IV CONTRAST CLINICAL HISTORY: Epigastric abdominal pain. COMPARISON STUDY: Abdominal CT dated 03/13/2021. TECHNIQUE: Following the IV administration of 86 cc of Optiray 300, CT scan of the abdomen and pelvis is performed from the lung bases to the proximal femora. Images are reviewed in the axial, sagittal, and coronal planes. IV contrast was administered without complication. A dose lowering technique was utilized adhering to the principles of ALARA. CT DOSE: 1411.58 mGy.cm FINDINGS: Lung bases: The heart is mildly enlarged and without pericardial effusion. There is trace right pleural effusion and bibasilar atelectasis. Liver: The contrast-enhanced liver is cirrhotic in morphology and heterogeneous in attenuation. There is nodularity of the hepatic surface contour. There is mild intrahepatic biliary ductal dilatation. The hepatic veins and portal veins are patent. Gallbladder: Surgically absent noting clips in the gallbladder fossa. Spleen: Normal in size and attenuation. Pancreas: Moderately atrophic and grossly unremarkable. Adrenal glands: Unremarkable. Kidneys: The contrast enhanced kidneys demonstrate cortical atrophy. There is moderate right-sided hydronephrosis, with associated urothelial thickening and enhancement the right renal pelvis and associated perinephric stranding. No obstructing calculus is identified, and this is similar in appearance to the 03/13/2021 examination. Stricture or urothelial neoplasm at the ureteropelvic junction is not excluded. The kidneys enhance symmetrically. Bilateral renal cysts are unchanged and measure up to 4.7 cm. There are at least 3 nonobstructing left renal calculi which measure up to 9 mm. No right renal calculi are identified on this contrast-enhanced examination. Abdominal vasculature: The abdominal aorta is normal in course and caliber. Stomach and bowel: Postoperative changes consistent with a history of Ngoc-en-Y gastric bypass surgery. There is mild colonic diverticulosis without CT evidence of acute diverticulitis No bowel obstruction is seen. The appendix is well- visualized and normal. Peritoneum: There is no intraperitoneal free air or abdominal ascites noting advanced atherosclerotic calcification. Lymphadenopathy: None. Pelvic viscera: The bladder is normal as visualized. The uterus is surgically absent. No adnexal lesion is seen. Skeletal structures: The skeletal structures are osteopenic. There is mild lumbo sacral spondylosis. No lytic or blastic lesions are seen. IMPRESSION: 1. Again seen is moderate right-sided hydroureteronephrosis with associated urothelial thickening/enhancement and perinephric stranding. No obstructing calculus is identified. Correlate clinically for evidence of urinary tract infection. This is similar to the 03/13/2021 examination. 2. Stricture or urothelial neoplasm at the ureteropelvic junction is not excluded. This was better assessed on the recent CT urogram. 3. Left-sided nephrolithiasis. 4. Cirrhotic liver morphology. 5. Cardiomegaly and trace right pleural effusion. This is similar to previous. 6. Additional findings as above. ACT 112: Negative or not required by law. Electronically signed by: Norberto Martinez M.D. 04/07/2021 9:53 PM Discharge Plan Visit Data Chief Complaint: Cardiac Assessment Stated Complaint: PAIN BETWEEN BREASTS ED Provider: Michael Alcantara Discharge Problem: Abdominal pain, acute, epigastric, Abnormal results of liver function studies, Urinary tract infection, Abnormal computed tomography of abdomen and pelvis Patient Disposition: Being Evaluated by Hospitalist Condition: Good Forms Stand Alone Forms: My Diversion Prescriptions Prescriptions: No Action Eliquis 5 mg tablet 5 mg PO BID Qty: 180 RF: 3 diltiazem HCl 240 mg capsule,extended release 24hr 240 mg PO QAM Qty: 90 RF: 3 cholecalciferol (vitamin D3) [Vitamin D3] 25 mcg (1,000 unit) capsule 2,000 unit PO QAM RF: 0 metoprolol succinate [Toprol XL] 50 mg tablet extended release 24 hr 50 mg PO BID Qty: 180 RF: 3 pantoprazole 40 mg tablet,delayed release (DR/EC) 40 mg PO BID Qty: 90 RF: 1 aspirin 81 mg tablet,delayed release (DR/EC) 81 mg PO QAM RF: 0 nystatin 100,000 unit/gram powder 1 applic topical BID PRN (Reason: Candidiasis) Qty: 60 RF: 5 fluoxetine 40 mg capsule 40 mg PO QAM RF: 0 atorvastatin 40 mg tablet 40 mg PO QAM RF: 0 fluoxetine 20 mg capsule 20 mg PO QAM RF: 0 hydrocodone-acetaminophen 5-325 mg tablet 1 tab PO Q6H PRN (Reason: pain) Qty: 15 RF: 0 furosemide 40 mg tablet 100 mg PO QAM RF: 0 losartan 25 mg tablet 25 mg PO QAM RF: 0 Referrals Referrals: Donal Guevara MD [Primary Care Provider] - Discharge Problem: Urinary tract infection Qualifiers: Urinary tract infection type: site unspecified Hematuria presence: without hematuria Qualified Code(s): N39.0 - Urinary tract infection, site not specified
--- NOTE | 2021-04-07 20:01 | XRay Report ---
SINGLE VIEW CHEST CLINICAL HISTORY: Epigastric abdominal pain. FINDINGS: An AP, portable, upright chest radiograph is compared to study dated 12/23/2020. The heart i s enlarged. The pulmonary vasculature is noncongested. Chronic interstitial thickening is similar to previous. There is mild bibasilar atelectasis. The lungs and pleural spaces are otherwise clear. No p neumothorax is seen. The skeletal structures are osteopenic. The bony thorax is grossly intact. IMPRESSION: Cardiomegaly with no active disease in the chest. ACT 112: Negative or not required by law. Electronically signed by: Norberto Martinez M.D. 04/07/2021 8:00 PM
[2021-04-07] MEDS: fentaNYL citrate 100 MCG/2 ML VIAL IV PRN (20:35)
[2021-04-07 20:57] LABS: Basophils # (auto) 0.01 K/uL (0-0.2); Basophils % (auto) 0.1 %; Eosinophils # (auto) 0.02 K/uL (0-0.5); Eosinophils % (auto) 0.2 %; Hematocrit (blood only) 40.5 % (37-47); Hemoglobin 13.3 g/dL (12.0-16.0); Immature Granulocytes # (auto) 0.02 K/uL (0.00-0.02); Immature Granulocytes % (auto) 0.2 %; Lymphocytes % (auto) 7.9 %; Mean Corpuscular Hgb Conc 32.8 g/dL (32-36); Mean Corpuscular Volume 97.6 fL (80-100); Mean Platelet Volume 9.3 fL (7.4-10.4); Monocytes % (auto) 5.6 %; Neutrophils # (auto) 7.64 K/uL (1.4-6.5); Platelet Count 204 K/uL (130-400); RDW Coefficient of Variation 13.8 % (11.5-14.5); RDW Standard Deviation 49.1 fL (36.4-46.3); Red Blood Count 4.15 M/uL (4.2-5.4); White Blood Count 8.89 K/uL (4.8-10.8)
[2021-04-07 21:02] LABS: Partial Thromboplastin Ratio 0.9; Partial Thromboplastin Time 23.2 Seconds (21.0-31.0); Prothrombin Time 10.6 Seconds (9.0-12.0)
[2021-04-07 21:06] LABS: Alanine Aminotransferase 121 U/L (12-78); Albumin Level 3.4 gm/dl (3.4-5.0); Aspartate Aminotransferase 222 U/L (15-37); BUN Creatinine Ratio 26.7 (10-20); Blood Urea Nitrogen 34 mg/dl (7-18); C Reactive Protein < 0.29 mg/dl (0-0.29); Calcium 8.7 mg/dl (8.5-10.1); Carbon Dioxide 28 mmol/L (21-32); Chloride 107 mmol/L (98-107); Creatinine Clr Calc Pharmacy 53.6 ml/min; Est GFR (African American) 49.3; Est GFR (Non-African American) 42.5; Glucose 121 mg/dl (70-99); Lipase 651 U/L (73-393); Potassium 4.6 mmol/L (3.5-5.1); Sodium 140 mmol/L (136-145)
[2021-04-07 21:11] LABS: Alkaline Phosphatase 281 U/L (45-117); Bilirubin,Total 0.8 mg/dl (0.2-1); Globulin 3.5 gm/dl (2.5-4.0); Total Protein 6.9 gm/dl (6.4-8.2); Troponin I < 0.015 ng/ml (0-0.045)
[2021-04-07] MEDS ORDERED: OPTIRAY 300 100mL IV ONE (21:33)
--- NOTE | 2021-04-07 21:54 | CT Scan Report ---
CT SCAN OF THE ABDOMEN AND PELVIS WITH IV CONTRAST CLINICAL HISTORY: Epigastric abdominal pain. COMPARISON STUDY: Abdominal CT dated 03/13/2021. TECHNIQUE: Following the IV administration of 86 cc of Optiray 300, CT scan of the abdomen and pelvi s is performed from the lung bases to the proximal femora. Images are reviewed in the axial, sagittal , and coronal planes. IV contrast was administered without complication. A dose lowering technique wa s utilized adhering to the principles of ALARA. CT DOSE: 1411.58 mGy.cm FINDINGS: Lung bases: The heart is mildly enlarged and without pericardial effusion. There is trace right pleur al effusion and bibasilar atelectasis. Liver: The contrast-enhanced liver is cirrhotic in morphology and heterogeneous in attenuation. There is nodularity of the hepatic surface contour. There is mild intrahepatic biliary ductal dilatation. The hepatic veins and portal veins are patent. Gallbladder: Surgically absent noting clips in the gallbladder fossa. Spleen: Normal in size and attenuation. Pancreas: Moderately atrophic and grossly unremarkable. Adrenal glands: Unremarkable. Kidneys: The contrast enhanced kidneys demonstrate cortical atrophy. There is moderate right-sided hy dronephrosis, with associated urothelial thickening and enhancement the right renal pelvis and associ ated perinephric stranding. No obstructing calculus is identified, and this is similar in appearance to the 03/13/2021 examination. Stricture or urothelial neoplasm at the ureteropelvic junction is not e xcluded. The kidneys enhance symmetrically. Bilateral renal cysts are unchanged and measure up to 4.7 cm. There are at least 3 nonobstructing left renal calculi which measure up to 9 mm. No right renal calculi are identified on this contrast-enhanced examination. Abdominal vasculature: The abdominal aorta is normal in course and caliber. Stomach and bowel: Postoperative changes consistent with a history of Ngoc-en-Y gastric bypass surger y. There is mild colonic diverticulosis without CT evidence of acute diverticulitis No bowel obstruct ion is seen. The appendix is well-visualized and normal. Peritoneum: There is no intraperitoneal free air or abdominal ascites noting advanced atherosclerotic calcification. Lymphadenopathy: None. Pelvic viscera: The bladder is normal as visualized. The uterus is surgically absent. No adnexal lesi on is seen. Skeletal structures: The skeletal structures are osteopenic. There is mild lumbosacral spondylosis. N o lytic or blastic lesions are seen. IMPRESSION: 1. Again seen is moderate right-sided hydroureteronephrosis with associated urothelial thickening/enh ancement and perinephric stranding. No obstructing calculus is identified. Correlate clinically for e vidence of urinary tract infection. This is similar to the 03/13/2021 examination. 2. Stricture or urothelial neoplasm at the ureteropelvic junction is not excluded. This was better as sessed on the recent CT urogram. 3. Left-sided nephrolithiasis. 4. Cirrhotic liver morphology. 5. Cardiomegaly and trace right pleural effusion. This is similar to previous. 6. Additional findings as above. ACT 112: Negative or not required by law. Electronically signed by: Norberto Martinez M.D. 04/07/2021 9:53 PM
[2021-04-07 22:58] LABS: Appearance Urine Cloudy (Clear); Bacteria Urine Automated Negative (Negative); Bilirubin Urine Negative (Negative); Blood Urine Trace (Negative); Color Urine Yellow; Epithelial Cell Urine Auto >30 /lpf (0-5); Glucose Urine UA Negative (Negative); Ketones Urine Negative (Negative); Leukocyte Esterase Urine 2+ (Negative); Nitrite Urine Negative (Negative); Protein Urine Negative (Negative); RBC Urine Automated 0-4 /hpf (0-4); Specific Gravity Urine 1.017 (1.000-1.030); Urobilinogen Urine Negative (Negative); WBC Urine Automated >30 /hpf (0-5)
[2021-04-07] MEDS ORDERED: PIPERACILL/TAZOBAC CONSULT ACTIVE PRN (23:41)
[2021-04-07] MEDS ORDERED: PIPERACILLIN/TAZOBACTAM 4.5 GM/120 ML BAG IV ONE (23:41)
[2021-04-08] MEDS: fentaNYL citrate 100 MCG/2 ML VIAL IV PRN (00:47)
[2021-04-08 01:09] LABS: Influenza A virus by PCR Negative (Neg); Influenza B virus by PCR Negative (Neg); RSV by PCR Negative (Neg); SARS CoV2 RNA(COVID-19) InHosp NEGATIVE (Negative)
[2021-04-08] MEDS ORDERED: HYDROCODONE/ACETAMOPHEN 5/325MG TAB PO PRN (02:50)
[2021-04-08] MEDS ORDERED: NYSTATIN POWDER 15GM BTL EXT PRN (02:50)
[2021-04-08] MEDS ORDERED: ONDANSETRON INJ 2 MG/ML 2 ML VIAL IV PRN (02:50)
[2021-04-08] MEDS ORDERED: SIMETHICONE 80 MG CHEW PO PRN (02:50)
[2021-04-08] MEDS ORDERED: MoRPHine SULFATE 2 MG/ML CARP IV PRN (02:50)
--- NOTE | 2021-04-08 04:41 | History & Physical Report ---
Date of Service April 08, 2021 Assessment & Plan (1) Abdominal pain, acute, epigastric: Resolved. Patient denies melena/hematochezia -Continue PPI -Continue to monitor -Repeat LFTs in AM (2) Abnormal results of liver function studies: Etiology uncertain. Patient has had elevated LFTs in the past -Repeat LFTs in AM -Hold Atorvastatin for now Present on Admission?: Yes (3) Hypertension: Blood pressure adequately controlled -Continue Metoprolol -Continue Losartan -Continue Diltiazem -Monitor (4) GERD (gastroesophageal reflux disease): Chronic -Continue Protonix 40mg po BID Present on Admission?: Yes (5) Depression: Chronic -Continue Fluoxetine Present on Admission?: Yes (6) Permanent atrial fibrillation: Rate controlled. Anticoagulated on Apixaban -Continue Apixaban 5mg po BID -Continue Diltiazem -Continue Metoprolol -Continue to monitor F/E/N - Ppx - On Apixaban and Protonix Code - Full Dispo - Observation to medical Present on Admission?: Yes Admission and Anticipated Discharge Date Admission Date: April 08, 2021 History of Present Illness Chief Complaint: ABDOMINAL PAIN Primary Care Provider: Christopher Guevara MD Tea Dawkins is a 70yo C female with history of HTN, HLP, GERD, AF on anticoagulation, recurrent pancreatitis presenting with abdominal discomfort. Patient has frequent episodes of abdominal pain at baseline. She reports over the last several years getting intermittent episodes of epigastric pain that radiates to her lower abdomen. She also has nausea with vomiting 1-2 times per week at baseline and intermittent diarrhea. These complaints have been ongoing for several years. She also reports worsening exercise tolerance, SOB, fatigue and LE ongoing for the last year She presents today with an episode of her usual abdominal pain - epigastric with radiation to her lower abdomen. Pain much more severe than prior episodes. Lasted approximately 1 hour and was associated with dizziness and sweating. She passed gas which provided some relief. No additional episodes of abdominal pain. Allergies Allergy/AdvReac Type Severity Reaction Status Date / Time No Known Allergies Allergy Verified 04/07/21 19:20 Home Medications Medication Instructions Recorded Confirmed Type aspirin 81 mg tablet,delayed 81 mg PO QAM tab 09/02/19 04/07/21 History release apixaban 5 mg tablet 5 mg PO BID #180 tab 08/25/20 04/07/21 Rx atorvastatin 40 mg PO QAM 11/03/20 04/07/21 History fluoxetine 20 mg PO QAM 11/03/20 04/07/21 History fluoxetine 40 mg PO QAM 11/03/20 04/07/21 History diltiazem HCl 240 mg 240 mg PO QAM #90 cap 12/09/20 04/07/21 Rx capsule,extended release 24 hr hydrocodone-acetaminophen 1 tab PO Q6H PRN #15 tab 12/29/20 04/07/21 Rx nystatin 100,000 unit/gram topical 1 applic TOPICAL BID PRN #60 g 02/06/21 04/07/21 Rx powder cholecalciferol (vitamin D3) 25 2,000 unit PO QAM cap 02/07/21 04/07/21 History mcg (1,000 unit) capsule metoprolol succinate 50 mg 50 mg PO BID #180 tab 02/17/21 04/07/21 Rx tablet,extended release 24 hr pantoprazole 40 mg tablet,delayed 40 mg PO BID #90 tab 03/09/21 04/07/21 Rx release furosemide 100 mg PO QAM 03/24/21 04/07/21 History losartan 25 mg PO QAM 03/24/21 04/07/21 History Past Med/Surg History Medical History Anemia HX OF - IRON INFUSION SEVERAL MONTHS AGO Atrial fibrillation Dx approx 5 years ago - follows w/ Dr. Brewer (s/p remote pulmonary venous ablation X 2, on Eliquis and multiple negative chronotropes Cardiac murmur Mild-moderate mitral regurgitation on 12/2019 echo, mild TR and [place] Chronic diastolic congestive heart failure GERD (gastroesophageal reflux disease) History of skin cancer & REMOVED History of sleep apnea HX SLEEP STUDY AND MACHINE, SINCE D/C'D - SLEEP APNEA RESOLVED Hyperlipemia Hypertension Kidney stones Lesion of ureter biopsy 12/29/2020 (pt unsure of results) Morbid obesity PFO (patent foramen ovale) Suspected per records Recurrent pancreatitis HX OF / 3-4 YR AGO SOB (shortness of breath) on exertion TIA (transient ischemic attack) 2017- [place] - no residual -NO ISSUES SINCE Surgical History H/O: hysterectomy History of cardiac radiofrequency ablation D/T AFIB - PT REPORTS HAD 1 BUT MAYBE 2 - NOT SURE DATES ([facility]) History of cardioversion multiple History of colonoscopy History of colostomy History of colostomy reversal History of cystoscopy and Right Ureteroscopy with stent. Following with Dr Rowe. 12/2020. History of esophagogastroduodenoscopy (EGD) History of tubal ligation History of umbilical hernia repair Hx of abdominal surgery FOR REMOVAL OF CYST - PT NOT SURE TYPE Hx of cholecystectomy Hx of laparoscopy Family History Grandmother Diabetes Hypertension Mother Heart disease Hypertension Grandfather Stomach cancer Hypertension Father Pancreatic cancer Hypertension Other No family history of adverse response to anesthesia Denies family history of Ovarian cancer Breast cancer Colorectal cancer Social History Smoking Status: Never smoker Second Hand Exposure: No; Hx Alcohol Use: No Hx Substance Use: Yes Substance Use Type Other:: last use was 40 years ago Preferred Language: Yi Communication Ability: Effective Visual Impairment: No Limitations Hearing Ability: Normal Calibration Tester Required: No Beliefs That Will Affect Care: None marital status: Current Living Situation: Spouse 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 status: retired 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 Other 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 Helps Us Care for You: No other: [employer] Feels Safe at Home: Yes Seatbelt Use: always Sunscreen Use: No Assistive Devices: None Review of Systems Review of Systems: All systems reviewed & are unremarkable except as noted in HPI & below Physical Exam Physical Exam: General: patient resting comfortably, NAD, non-toxic in appearance, AA&O x 4 Skin: warm, dry, intact, redness under bilateral breasts HEENT: NC/AT, PERRL, EOMI, anicteric sclera, conjunctiva without injection, external ear normal to inspection and nontender, nares patent, moist mucus membranes, dentition intact, no oropharyngeal lesions, neck supple, trachea midline, no LAD, no thyromegaly, no JVD Heart: +S1/S2, irregularly irregular, no m/r/g Lungs: equal air entry bilaterally, no rales/rhonchi/wheezes Abd: +BS, soft, ND, no masses/organomegaly/ascites, tender in the epigastric area, very tender in lower abdomen with voluntary guarding Ext: warm, 2+ pulses in UE/LE bilaterally, no clubbing/cyanosis or edema Neuro: nonfocal, patient AA&O x 4, speech intact, no facial droop, moving all extremities on command with equal strength 5/5 Results & Data Results & Data ([facility]) Vital Signs (Past 12 Hours) Vital Signs Temp Pulse Pulse Resp BP BP Pulse Ox 04/08/21 02:51 36.5 C 91 H 16 121/81 95 04/08/21 02:50 36.5 C 91 H 16 121/81 95 04/08/21 02:24 74 12 98/68 L 95 04/08/21 00:53 83 18 150/80 H 98 04/08/21 00:30 83 22 96 04/08/21 00:00 78 17 96 04/07/21 23:33 82 13 124/84 97 04/07/21 23:30 87 13 96 04/07/21 23:00 88 19 95 04/07/21 20:30 81 15 140/92 97 04/07/21 20:00 79 14 97 04/07/21 17:08 36.4 C L 75 20 127/80 96 Laboratory Results Lab Results 04/07/21 04/07/21 04/07/21 Range/Units 20:30 20:30 20:30 WBC 8.89 (4.8-10.8) K/uL RBC 4.15 L (4.2-5.4) M/uL Hgb 13.3 (12.0-16.0) g/dL Hct 40.5 (37-47) % MCV 97.6 (80-100) fL MCH 32.0 (25-34) pg MCHC 32.8 (32-36) g/dL RDW Std Deviation 49.1 H (36.4-46.3) fL RDW Coeff of Rodrigo 13.8 (11.5-14.5) % Plt Count 204 (130-400) K/uL MPV 9.3 (7.4-10.4) fL Immature Gran % (Auto) 0.2 % Neut % (Auto) 86.0 % Lymph % (Auto) 7.9 % [place] % (Auto) 5.6 % Eos % (Auto) 0.2 % Baso % (Auto) 0.1 % Neut # (Auto) 7.64 H (1.4-6.5) K/uL Lymph # (Auto) 0.70 L (1.2-3.4) K/uL [place] # (Auto) 0.50 (0.11-0.59) K/uL Eos # (Auto) 0.02 (0-0.5) K/uL Baso # (Auto) 0.01 (0-0.2) K/uL Immature Gran # (Auto) 0.02 (0.00-0.02) K/uL ESR 16 (0-30) mm/hr PT 10.6 (9.0-12.0) Seconds INR 1.0 (0.9-1.1) APTT 23.2 (21.0-31.0) Seconds PTT Ratio 0.9 Sodium (136-145) mmol/L Potassium (3.5-5.1) mmol/L Chloride (98-107) mmol/L Carbon Dioxide (21-32) mmol/L Anion Gap (3-11) BUN (7-18) mg/dl Creatinine (0.6-1.2) mg/dl Est Cr Clr Drug Dosing ml/min Est GFR ( Amer) Est GFR (Non-Af Amer) BUN/Creatinine Ratio (10-20) Glucose (70-99) mg/dl Calcium (8.5-10.1) mg/dl Total Bilirubin (0.2-1) mg/dl AST (15-37) U/L ALT (12-78) U/L Alkaline Phosphatase (45-117) U/L Troponin I (0-0.045) ng/ml C-Reactive Protein (0-0.29) mg/dl Total Protein (6.4-8.2) gm/dl Albumin (3.4-5.0) gm/dl Globulin (2.5-4.0) gm/dl Albumin/Globulin Ratio (0.9-2) Lipase (73-393) U/L Urine Color Urine Appearance (Clear) Urine pH (4.5-7.5) Ur Specific [place] (1.000-1.030) Urine Protein (Negative) Urine Glucose (UA) (Negative) Urine Ketones (Negative) Urine Blood (Negative) Urine Nitrite (Negative) Urine Bilirubin (Negative) Urine Urobilinogen (Negative) Ur Leukocyte Esterase (Negative) Urine WBC (Auto) (0-5) /hpf Urine RBC (Auto) (0-4) /hpf U Hyaline Cast (Auto) (0-5) /lpf U Epithel Cells (Auto) (0-5) /lpf Urine Bacteria (Auto) (Negative) Urine Yeast (None Prsent) COVID-19 Eval Order SARS-CoV-2 (PCR) (Negative) Influenza Type A (PCR) (Neg) Influenza Type B (PCR) (Neg) RSV (RT-PCR) (Neg) 04/07/21 04/07/21 04/07/21 Range/Units 20:30 22:35 23:51 WBC (4.8-10.8) K/uL RBC (4.2-5.4) M/uL Hgb (12.0-16.0) g/dL Hct (37-47) % MCV (80-100) fL MCH (25-34) pg MCHC (32-36) g/dL RDW Std Deviation (36.4-46.3) fL RDW Coeff of Rodrigo (11.5-14.5) % Plt Count (130-400) K/uL MPV (7.4-10.4) fL Immature Gran % (Auto) % Neut % (Auto) % Lymph % (Auto) % [place] % (Auto) % Eos % (Auto) % Baso % (Auto) % Neut # (Auto) (1.4-6.5) K/uL Lymph # (Auto) (1.2-3.4) K/uL [place] # (Auto) (0.11-0.59) K/uL Eos # (Auto) (0-0.5) K/uL Baso # (Auto) (0-0.2) K/uL Immature Gran # (Auto) (0.00-0.02) K/uL ESR (0-30) mm/hr PT (9.0-12.0) Seconds INR (0.9-1.1) APTT (21.0-31.0) Seconds PTT Ratio Sodium 140 (136-145) mmol/L Potassium 4.6 D (3.5-5.1) mmol/L Chloride 107 (98-107) mmol/L Carbon Dioxide 28 (21-32) mmol/L Anion Gap 5.0 (3-11) BUN 34 H (7-18) mg/dl Creatinine 1.29 H (0.6-1.2) mg/dl Est Cr Clr Drug Dosing 53.6 ml/min Est GFR ( Amer) 49.3 Est GFR (Non-Af Amer) 42.5 BUN/Creatinine Ratio 26.7 H (10-20) Glucose 121 H (70-99) mg/dl Calcium 8.7 (8.5-10.1) mg/dl Total Bilirubin 0.8 (0.2-1) mg/dl AST 222 H (15-37) U/L ALT 121 H (12-78) U/L Alkaline Phosphatase 281 H (45-117) U/L Troponin I < 0.015 (0-0.045) ng/ml C-Reactive Protein < 0.29 (0-0.29) mg/dl Total Protein 6.9 (6.4-8.2) gm/dl Albumin 3.4 (3.4-5.0) gm/dl Globulin 3.5 (2.5-4.0) gm/dl Albumin/Globulin Ratio 1.0 (0.9-2) Lipase 651 H (73-393) U/L Urine Color Yellow Urine Appearance Cloudy A (Clear) Urine pH 5.0 (4.5-7.5) Ur Specific [place] 1.017 (1.000-1.030) Urine Protein Negative (Negative) Urine Glucose (UA) Negative (Negative) Urine Ketones Negative (Negative) Urine Blood Trace H (Negative) Urine Nitrite Negative (Negative) Urine Bilirubin Negative (Negative) Urine Urobilinogen Negative (Negative) Ur Leukocyte Esterase 2+ H (Negative) Urine WBC (Auto) >30 H (0-5) /hpf Urine RBC (Auto) 0-4 (0-4) /hpf U Hyaline Cast (Auto) 1-5 (0-5) /lpf U Epithel Cells (Auto) >30 H (0-5) /lpf Urine Bacteria (Auto) Negative (Negative) Urine Yeast Budding A (None Prsent) COVID-19 Eval Order CovFluRsv at [facility] SARS-CoV-2 (PCR) (Negative) Influenza Type A (PCR) (Neg) Influenza Type B (PCR) (Neg) RSV (RT-PCR) (Neg) 04/07/21 Range/Units 23:51 WBC (4.8-10.8) K/uL RBC (4.2-5.4) M/uL Hgb (12.0-16.0) g/dL Hct (37-47) % MCV (80-100) fL MCH (25-34) pg MCHC (32-36) g/dL RDW Std Deviation (36.4-46.3) fL RDW Coeff of Rodrigo (11.5-14.5) % Plt Count (130-400) K/uL MPV (7.4-10.4) fL Immature Gran % (Auto) % Neut % (Auto) % Lymph % (Auto) % [place] % (Auto) % Eos % (Auto) % Baso % (Auto) % Neut # (Auto) (1.4-6.5) K/uL Lymph # (Auto) (1.2-3.4) K/uL [place] # (Auto) (0.11-0.59) K/uL Eos # (Auto) (0-0.5) K/uL Baso # (Auto) (0-0.2) K/uL Immature Gran # (Auto) (0.00-0.02) K/uL ESR (0-30) mm/hr PT (9.0-12.0) Seconds INR (0.9-1.1) APTT (21.0-31.0) Seconds PTT Ratio Sodium (136-145) mmol/L Potassium (3.5-5.1) mmol/L Chloride (98-107) mmol/L Carbon Dioxide (21-32) mmol/L Anion Gap (3-11) BUN (7-18) mg/dl Creatinine (0.6-1.2) mg/dl Est Cr Clr Drug Dosing ml/min Est GFR ( Amer) Est GFR (Non-Af Amer) BUN/Creatinine Ratio (10-20) Glucose (70-99) mg/dl Calcium (8.5-10.1) mg/dl Total Bilirubin (0.2-1) mg/dl AST (15-37) U/L ALT (12-78) U/L Alkaline Phosphatase (45-117) U/L Troponin I (0-0.045) ng/ml C-Reactive Protein (0-0.29) mg/dl Total Protein (6.4-8.2) gm/dl Albumin (3.4-5.0) gm/dl Globulin (2.5-4.0) gm/dl Albumin/Globulin Ratio (0.9-2) Lipase (73-393) U/L Urine Color Urine Appearance (Clear) Urine pH (4.5-7.5) Ur Specific [place] (1.000-1.030) Urine Protein (Negative) Urine Glucose (UA) (Negative) Urine Ketones (Negative) Urine Blood (Negative) Urine Nitrite (Negative) Urine Bilirubin (Negative) Urine Urobilinogen (Negative) Ur Leukocyte Esterase (Negative) Urine WBC (Auto) (0-5) /hpf Urine RBC (Auto) (0-4) /hpf U Hyaline Cast (Auto) (0-5) /lpf U Epithel Cells (Auto) (0-5) /lpf Urine Bacteria (Auto) (Negative) Urine Yeast (None Prsent) COVID-19 Eval Order SARS-CoV-2 (PCR) NEGATIVE (Negative) Influenza Type A (PCR) Negative (Neg) Influenza Type B (PCR) Negative (Neg) RSV (RT-PCR) Negative (Neg) Diagnostic Findings CT SCAN OF THE ABDOMEN AND PELVIS WITH IV CONTRAST CLINICAL HISTORY: Epigastric abdominal pain. COMPARISON STUDY: Abdominal CT dated 03/13/2021. TECHNIQUE: Following the IV administration of 86 cc of Optiray 300, CT scan of the abdomen and pelvis is performed from the lung bases to the proximal femora. Images are reviewed in the axial, sagittal, and coronal planes. IV contrast was administered without complication. A dose lowering technique was utilized adhering to the principles of ALARA. CT DOSE: 1411.58 mGy.cm FINDINGS: Lung bases: The heart is mildly enlarged and without pericardial effusion. There is trace right pleural effusion and bibasilar atelectasis. Liver: The contrast-enhanced liver is cirrhotic in morphology and heterogeneous in attenuation. There is nodularity of the hepatic surface contour. There is mild intrahepatic biliary ductal dilatation. The hepatic veins and portal veins are patent. Gallbladder: Surgically absent noting clips in the gallbladder fossa. Spleen: Normal in size and attenuation. Pancreas: Moderately atrophic and grossly unremarkable. Adrenal glands: Unremarkable. Kidneys: The contrast enhanced kidneys demonstrate cortical atrophy. There is moderate right-sided hydronephrosis, with associated urothelial thickening and enhancement the right renal pelvis and associated perinephric stranding. No obstructing calculus is identified, and this is similar in appearance to the 03/13/2021 examination. Stricture or urothelial neoplasm at the ureteropelvic junction is not excluded. The kidneys enhance symmetrically. Bilateral renal cysts are unchanged and measure up to 4.7 cm. There are at least 3 nonobstructing left renal calculi which measure up to 9 mm. No right renal calculi are identified on this contrast-enhanced examination. Abdominal vasculature: The abdominal aorta is normal in course and caliber. Stomach and bowel: Postoperative changes consistent with a history of Ngoc-en-Y gastric bypass surgery. There is mild colonic diverticulosis without CT evidence of acute diverticulitis No bowel obstruction is seen. The appendix is well- visualized and normal. Peritoneum: There is no intraperitoneal free air or abdominal ascites noting advanced atherosclerotic calcification. Lymphadenopathy: None. Pelvic viscera: The bladder is normal as visualized. The uterus is surgically absent. No adnexal lesion is seen. Skeletal structures: The skeletal structures are osteopenic. There is mild lumbosacral spondylosis. No lytic or blastic lesions are seen. IMPRESSION: 1. Again seen is moderate right-sided hydroureteronephrosis with associated urothelial thickening/enhancement and perinephric stranding. No obstructing calculus is identified. Correlate clinically for evidence of urinary tract infection. This is similar to the 03/13/2021 examination. 2. Stricture or urothelial neoplasm at the ureteropelvic junction is not excluded. This was better assessed on the recent CT urogram. 3. Left-sided nephrolithiasis. 4. Cirrhotic liver morphology. 5. Cardiomegaly and trace right pleural effusion. This is similar to previous. 6. Additional findings as above. ACT 112: Negative or not required by law. Electronically signed by: Norberto Martinez M.D. 04/07/2021 9:53 PM Dictated: [id number]: 04/07/212143 SINGLE VIEW CHEST CLINICAL HISTORY: Epigastric abdominal pain. FINDINGS: An AP, portable, upright chest radiograph is compared to study dated 12/23/2020. The heart is enlarged. The pulmonary vasculature is noncongested. Chronic interstitial thickening is similar to previous. There is mild bibasilar atelectasis. The lungs and pleural spaces are otherwise clear. No pneumothorax is seen. The skeletal structures are osteopenic. The bony thorax is grossly intact. IMPRESSION: Cardiomegaly with no active disease in the chest. ACT 112: Negative or not required by law. Electronically signed by: Norberto Martinez M.D. 04/07/2021 8:00 PM Dictated: [id number]: 04/07/211958 PG Care Time/CCT Total # of Minutes Spent Total Time Spent with Patient: Total time spent is greater than 50% in coordination of care (as documented) at patient's floor/unit and/or counseling patient: Coding Level of Care Code 76483 OBS Care - Level 3 Diagnoses Abdominal pain, acute, epigastric R10.13 Abnormal results of liver function studies R94.5 Hypertension I10 Hypertension type: essential hypertension GERD (gastroesophageal reflux disease) K21.9 Esophagitis presence: without esophagitis Depression F32.9 Depression Type: unspecified Permanent atrial fibrillation I48.21 (1) Hypertension Hypertension type: essential hypertension Qualified Code(s): I10 - Essential (primary) hypertension (2) GERD (gastroesophageal reflux disease) Esophagitis presence: without esophagitis Qualified Code(s): K21.9 - Gastro- esophageal reflux disease without esophagitis (3) Depression Depression Type: unspecified Qualified Code(s): F32.9 - Major depressive disorder, single episode, unspecified
[2021-04-08] MEDS: APIXABAN 5 MG TABLET PO SCH ×2 (08:20→21:04)
[2021-04-08] MEDS: PANTOprazole 40 MG TAB PO SCH ×2 (08:21→21:04)
[2021-04-08] MEDS: FLUoxetine HCL 20 MG CAP PO SCH (08:21)
[2021-04-08] MEDS: ASPIRIN 81 MG ECTAB PO SCH (08:21)
[2021-04-08] MEDS: dilTIAZem HCL 240 MG CAPCR PO SCH (08:21)
[2021-04-08] MEDS: METOPROLOL SUCC 50MG EXT REL TAB PO SCH ×2 (08:21→21:04)
[2021-04-08] MEDS: LOSARTAN POTASSIUM 25 MG TAB PO SCH (08:22)
[2021-04-08] MEDS: FUROSEMIDE 20 MG TAB PO SCH (08:22)
[2021-04-08] MEDS ORDERED: FLUoxetine HCL 20 MG CAP PO SCH (09:00)
[2021-04-08] MEDS ORDERED: ATORVASTATIN 40 MG TAB PO SCH (09:00)
[2021-04-08 09:38] LABS: Albumin Level 3.3 gm/dl (3.4-5.0); BUN Creatinine Ratio 20.4 (10-20); Calcium 8.6 mg/dl (8.5-10.1); Creatinine Clr Calc Pharmacy 46.5 ml/min; Est GFR (African American) 45.4; Est GFR (Non-African American) 39.2; Potassium 4.3 mmol/L (3.5-5.1)
[2021-04-08 09:41] LABS: Albumin Globulin Ratio 0.9 (0.9-2); Bilirubin,Total 0.8 mg/dl (0.2-1); Globulin 3.5 gm/dl (2.5-4.0); Total Protein 6.8 gm/dl (6.4-8.2)
--- NOTE | 2021-04-08 09:54 | Electrocardiogram Report ---
Test Reason : Blood Pressure : / mmHG Vent. Rate : 083 BPM Atrial Rate : 089 BPM P-R Int : 000 ms QRS Dur : 096 ms QT Int : 422 ms P-R-T Axes : 000 -09 009 degrees QTc Int : 495 ms Atrial fibrillation Inferior infarct (cited on or before 07-APR-2021) Poor R wave progression, consider anterior TX vs. lead placement vs. LVH Abnormal ECG When compared with ECG of 03-NOV-2020 15:42, QT has lengthened Confirmed by Michael Stanley ([id number]) on 04/08/2021 9:54:17 AM Referred By: REFERRED SELF Confirmed By:Michael Stanley
--- NOTE | 2021-04-08 10:36 | Hospitalist Progress Note ---
Date of Service April 08, 2021 Assessment & Plan (1) Exertional dyspnea: Tea Dawkins is a 70 y/o F with PMH significant for HTN, HLP, GERD, AF on Eliquis, and recurrent pancreatitis; who presented to the ER for concerns of persistent abdominal discomfort. Exertional dyspnea: - shortness of breath with exertion over the last several months - previous history of sleep apnea but has not utilized CPAP in many years as she hated the mask, and was told that she had improved - negative troponin on admission - given history of potential sleep apnea in the absence of CPAP use, this could contribute to right sided heart failure from pulmonary hypertension with subsequent development portal congestion - last sleep study (12/26/18): No evidence of clinically significant sleep apnea/hypopnea or nocturnal hypoxemia. - Echo in AM - follow accordingly. - Consider event monitor as outpatient. - EKG noted - should have stress test if no new WMA in am. Permanent atrial fibrillation: Currently in A fib - Rate controlled - Continue Apixaban 5mg po BID - Continue Diltiazem - Continue Metoprolol Abdominal pain, acute, epigastric: - resolved at this time - troponin neg. Abnormal results of liver function studies: - AST/ALT/Alk phos elevated on admission - patient is many months from - Repeat LFTs in AM demonstrating slight downtrend - Liver US demonstrating cirrhosis, obscured pancreas - continue to hold Atorvastatin given potential confounding increase in LFTs while on medication GERD (gastroesophageal reflux disease): - Continue Protonix 40mg po BID Depression: - Continue Fluoxetine Diet: Heart healthy DVT ppx: Eliquis CODE STATUS: Full code (2) Abdominal discomfort, epigastric: (3) Hypertension: (4) Cirrhosis: (5) Abnormal results of liver function studies: (6) Fatigue: (7) Permanent atrial fibrillation: Admission and Anticipated Discharge Date Admission Date: April 08, 2021 Supervising Physician Co-Signing Physician Notes Resident Physician Supervision Note: I independently interviewed and examined the patient and verified the baxter history and physical, reviewed labs and image studies and agree with resident Dr. Cohen findings and care plan. Subjective Patient's abdominal pain and discomfort has continued to be resolved this morning, with tolerance of food and drink without difficulty at this time. Expresses concern regarding her recent shortness of breath with walking short distances that she has been having over the last 3-6 months. Does not have difficulty with laying flat, has not noticed progressive swelling of her arms or feet. Does not have the shortness of breath or feelings of fatigue at rest. Knows that she previously was supposed to use her CPAP mask nightly for sleep apnea, but she stopped using it and subsequently had a sleep study that said she did not have sleep apnea anymore. Review of Systems Review of Systems: All systems reviewed & are unremarkable except as noted in Subjective Physical Exam Constitutional: WD/WN, vitals as above Eyes: PERRL, conjunctivae normal, anicteric sclerae Respiratory: normal respiratory effort, lungs clear to auscultation Auscultation: no crackles, no rales, no rhonchi and no wheezes Cardiovascular: Rate/Rhythm: regular rate and regular rhythm Heart Sounds: no gallop, no murmur and no cardiac rub Vessels: normal peripheral pulses; no JVD Extremities: no edema Gastrointestinal (Abdomen): Inspection/Auscultation: normal bowel sounds; abdomen not distended Percussion/Palpation: abdomen soft; abdomen nontender and no guarding Musculoskeletal: no cyanosis or clubbing, extremities motor strength 5/5 Skin: no rashes, warm and dry Neurologic: PERRL, EOMI, accommodation nl, no face palsy, no dysarthria CN's II-XI intact bilaterally and moves all extremities Psychiatric: Orientation: alert and oriented x 3 Results & Data Results & Data ([facility]) Vital Signs (Past 12 Hours) Vital Signs Temp Pulse Pulse Resp BP BP Pulse Ox 04/08/21 02:51 36.5 C 91 H 16 121/81 95 04/08/21 02:50 36.5 C 91 H 16 121/81 95 04/08/21 02:24 74 12 98/68 L 95 04/08/21 00:53 83 18 150/80 H 98 04/08/21 00:30 83 22 96 04/08/21 00:00 78 17 96 04/07/21 23:33 82 13 124/84 97 04/07/21 23:30 87 13 96 04/07/21 23:00 88 19 95 Laboratory Results 04/08/21 04/07/21 04/07/21 Range/Units 08:54 23:51 23:51 WBC (4.8-10.8) K/uL RBC (4.2-5.4) M/uL Hgb (12.0-16.0) g/dL Hct (37-47) % MCV (80-100) fL MCH (25-34) pg MCHC (32-36) g/dL RDW Std Deviation (36.4-46.3) fL RDW Coeff of Rodrigo (11.5-14.5) % Plt Count (130-400) K/uL MPV (7.4-10.4) fL Immature Gran % (Auto) % Neut % (Auto) % Lymph % (Auto) % Montgomery % (Auto) % Eos % (Auto) % Baso % (Auto) % Neut # (Auto) (1.4-6.5) K/uL Lymph # (Auto) (1.2-3.4) K/uL Montgomery # (Auto) (0.11-0.59) K/uL Eos # (Auto) (0-0.5) K/uL Baso # (Auto) (0-0.2) K/uL Immature Gran # (Auto) (0.00-0.02) K/uL ESR (0-30) mm/hr PT (9.0-12.0) Seconds INR (0.9-1.1) APTT (21.0-31.0) Seconds PTT Ratio Sodium 143 (136-145) mmol/L Potassium 4.3 (3.5-5.1) mmol/L Chloride 110 H (98-107) mmol/L Carbon Dioxide 30 (21-32) mmol/L Anion Gap 3.0 (3-11) BUN 28 H (7-18) mg/dl Creatinine 1.38 H (0.6-1.2) mg/dl Est Cr Clr Drug Dosing 46.5 ml/min Est GFR ( Amer) 45.4 Est GFR (Non-Af Amer) 39.2 BUN/Creatinine Ratio 20.4 H (10-20) Glucose 169 H (70-99) mg/dl Calcium 8.6 (8.5-10.1) mg/dl Total Bilirubin 0.8 (0.2-1) mg/dl AST 85 H (15-37) U/L ALT 101 H (12-78) U/L Alkaline Phosphatase 278 H (45-117) U/L Troponin I (0-0.045) ng/ml C-Reactive Protein (0-0.29) mg/dl Total Protein 6.8 (6.4-8.2) gm/dl Albumin 3.3 L (3.4-5.0) gm/dl Globulin 3.5 (2.5-4.0) gm/dl Albumin/Globulin Ratio 0.9 (0.9-2) Lipase (73-393) U/L Urine Color Urine Appearance (Clear) Urine pH (4.5-7.5) Ur Specific S[place] (1.000-1.030) Urine Protein (Negative) Urine Glucose (UA) (Negative) Urine Ketones (Negative) Urine Blood (Negative) Urine Nitrite (Negative) Urine Bilirubin (Negative) Urine Urobilinogen (Negative) Ur Leukocyte Esterase (Negative) Urine WBC (Auto) (0-5) /hpf Urine RBC (Auto) (0-4) /hpf U Hyaline Cast (Auto) (0-5) /lpf U Epithel Cells (Auto) (0-5) /lpf Urine Bacteria (Auto) (Negative) Urine Yeast (None Prsent) COVID-19 Eval Order CovFluRsv at [facility] SARS-CoV-2 (PCR) NEGATIVE (Negative) Hepatitis C Ab Screen Influenza Type A (PCR) Negative (Neg) Influenza Type B (PCR) Negative (Neg) RSV (RT-PCR) Negative (Neg) 04/07/21 04/07/21 04/07/21 Range/Units 22:35 20:30 20:30 WBC (4.8-10.8) K/uL RBC (4.2-5.4) M/uL Hgb (12.0-16.0) g/dL Hct (37-47) % MCV (80-100) fL MCH (25-34) pg MCHC (32-36) g/dL RDW Std Deviation (36.4-46.3) fL RDW Coeff of Rodrigo (11.5-14.5) % Plt Count (130-400) K/uL MPV (7.4-10.4) fL Immature Gran % (Auto) % Neut % (Auto) % Lymph % (Auto) % Montgomery % (Auto) % Eos % (Auto) % Baso % (Auto) % Neut # (Auto) (1.4-6.5) K/uL Lymph # (Auto) (1.2-3.4) K/uL Montgomery # (Auto) (0.11-0.59) K/uL Eos # (Auto) (0-0.5) K/uL Baso # (Auto) (0-0.2) K/uL Immature Gran # (Auto) (0.00-0.02) K/uL ESR (0-30) mm/hr PT 10.6 (9.0-12.0) Seconds INR 1.0 (0.9-1.1) APTT 23.2 (21.0-31.0) Seconds PTT Ratio 0.9 Sodium 140 (136-145) mmol/L Potassium 4.6 D (3.5-5.1) mmol/L Chloride 107 (98-107) mmol/L Carbon Dioxide 28 (21-32) mmol/L Anion Gap 5.0 (3-11) BUN 34 H (7-18) mg/dl Creatinine 1.29 H (0.6-1.2) mg/dl Est Cr Clr Drug Dosing 53.6 ml/min Est GFR ( Amer) 49.3 Est GFR (Non-Af Amer) 42.5 BUN/Creatinine Ratio 26.7 H (10-20) Glucose 121 H (70-99) mg/dl Calcium 8.7 (8.5-10.1) mg/dl Total Bilirubin 0.8 (0.2-1) mg/dl AST 222 H (15-37) U/L ALT 121 H (12-78) U/L Alkaline Phosphatase 281 H (45-117) U/L Troponin I < 0.015 (0-0.045) ng/ml C-Reactive Protein < 0.29 (0-0.29) mg/dl Total Protein 6.9 (6.4-8.2) gm/dl Albumin 3.4 (3.4-5.0) gm/dl Globulin 3.5 (2.5-4.0) gm/dl Albumin/Globulin Ratio 1.0 (0.9-2) Lipase 651 H (73-393) U/L Urine Color Yellow Urine Appearance Cloudy A (Clear) Urine pH 5.0 (4.5-7.5) Ur Specific [place] 1.017 (1.000-1.030) Urine Protein Negative (Negative) Urine Glucose (UA) Negative (Negative) Urine Ketones Negative (Negative) Urine Blood Trace H (Negative) Urine Nitrite Negative (Negative) Urine Bilirubin Negative (Negative) Urine Urobilinogen Negative (Negative) Ur Leukocyte Esterase 2+ H (Negative) Urine WBC (Auto) >30 H (0-5) /hpf Urine RBC (Auto) 0-4 (0-4) /hpf U Hyaline Cast (Auto) 1-5 (0-5) /lpf U Epithel Cells (Auto) >30 H (0-5) /lpf Urine Bacteria (Auto) Negative (Negative) Urine Yeast Budding A (None Prsent) COVID-19 Eval Order SARS-CoV-2 (PCR) (Negative) Hepatitis C Ab Screen Influenza Type A (PCR) (Neg) Influenza Type B (PCR) (Neg) RSV (RT-PCR) (Neg) 04/07/21 04/07/21 04/07/21 Range/Units 20:30 20:30 20:25 WBC 8.89 (4.8-10.8) K/uL RBC 4.15 L (4.2-5.4) M/uL Hgb 13.3 (12.0-16.0) g/dL Hct 40.5 (37-47) % MCV 97.6 (80-100) fL MCH 32.0 (25-34) pg MCHC 32.8 (32-36) g/dL RDW Std Deviation 49.1 H (36.4-46.3) fL RDW Coeff of Rodrigo 13.8 (11.5-14.5) % Plt Count 204 (130-400) K/uL MPV 9.3 (7.4-10.4) fL Immature Gran % (Auto) 0.2 % Neut % (Auto) 86.0 % Lymph % (Auto) 7.9 % Montgomery % (Auto) 5.6 % Eos % (Auto) 0.2 % Baso % (Auto) 0.1 % Neut # (Auto) 7.64 H (1.4-6.5) K/uL Lymph # (Auto) 0.70 L (1.2-3.4) K/uL Montgomery # (Auto) 0.50 (0.11-0.59) K/uL Eos # (Auto) 0.02 (0-0.5) K/uL Baso # (Auto) 0.01 (0-0.2) K/uL Immature Gran # (Auto) 0.02 (0.00-0.02) K/uL ESR 16 (0-30) mm/hr PT (9.0-12.0) Seconds INR (0.9-1.1) APTT (21.0-31.0) Seconds PTT Ratio Sodium (136-145) mmol/L Potassium (3.5-5.1) mmol/L Chloride (98-107) mmol/L Carbon Dioxide (21-32) mmol/L Anion Gap (3-11) BUN (7-18) mg/dl Creatinine (0.6-1.2) mg/dl Est Cr Clr Drug Dosing ml/min Est GFR ( Amer) Est GFR (Non-Af Amer) BUN/Creatinine Ratio (10-20) Glucose (70-99) mg/dl Calcium (8.5-10.1) mg/dl Total Bilirubin (0.2-1) mg/dl AST (15-37) U/L ALT (12-78) U/L Alkaline Phosphatase (45-117) U/L Troponin I (0-0.045) ng/ml C-Reactive Protein (0-0.29) mg/dl Total Protein (6.4-8.2) gm/dl Albumin (3.4-5.0) gm/dl Globulin (2.5-4.0) gm/dl Albumin/Globulin Ratio (0.9-2) Lipase (73-393) U/L Urine Color Urine Appearance (Clear) Urine pH (4.5-7.5) Ur Specific [place] (1.000-1.030) Urine Protein (Negative) Urine Glucose (UA) (Negative) Urine Ketones (Negative) Urine Blood (Negative) Urine Nitrite (Negative) Urine Bilirubin (Negative) Urine Urobilinogen (Negative) Ur Leukocyte Esterase (Negative) Urine WBC (Auto) (0-5) /hpf Urine RBC (Auto) (0-4) /hpf U Hyaline Cast (Auto) (0-5) /lpf U Epithel Cells (Auto) (0-5) /lpf Urine Bacteria (Auto) (Negative) Urine Yeast (None Prsent) COVID-19 Eval Order SARS-CoV-2 (PCR) (Negative) Hepatitis C Ab Screen Pending Influenza Type A (PCR) (Neg) Influenza Type B (PCR) (Neg) RSV (RT-PCR) (Neg) Medications Administered Current Inpatient Medications Hydrocodone Bitart/Acetaminophen (Hydrocodone/Acetamophen 5/325mg Tab) 1 tab PO Q6H PRN PRN Reason: pain Stop: 04/22/21 02:49 Apixaban (Apixaban 5 Mg Tablet) 5 mg PO BID [facility] Stop: 05/08/21 08:59 Last Admin: 04/08/21 08:20 Dose: 5 mg Documented by: Aspirin (Aspirin 81 Mg Ectab) 81 mg PO [facility] Stop: 05/08/21 08:59 Last Admin: 04/08/21 08:21 Dose: 81 mg Documented by: Diltiazem HCl (Diltiazem Hcl 240 Mg Capcr) 240 mg PO [facility] Stop: 05/08/21 08:59 Last Admin: 04/08/21 08:21 Dose: 240 mg Documented by: Fluoxetine HCl (Fluoxetine Hcl 20 Mg Cap) 60 mg PO [facility] Stop: 05/08/21 08:59 Last Admin: 04/08/21 08:21 Dose: 60 mg Documented by: Furosemide (Furosemide 20 Mg Tab) 100 mg PO [facility] Stop: 05/08/21 08:59 Last Admin: 04/08/21 08:22 Dose: 100 mg Documented by: Losartan Potassium (Losartan Potassium 25 Mg Tab) 25 mg PO [facility] Stop: 05/08/21 08:59 Last Admin: 04/08/21 08:22 Dose: 25 mg Documented by: Metoprolol Succinate (Metoprolol Succ 50mg Ext Rel Tab) 50 mg PO BID [facility] Stop: 05/08/21 08:59 Last Admin: 04/08/21 08:21 Dose: 50 mg Documented by: Morphine Sulfate (Morphine Sulfate 2 Mg/Ml Carp) 1 mg IV Q4H PRN PRN Reason: Pain Stop: 04/22/21 02:49 Nystatin (Nystatin Powder 15gm Btl) 1 appln EXT BID PRN PRN Reason: Candidiasis Stop: 05/08/21 02:49 Ondansetron HCl (Ondansetron Inj 2 Mg/Ml 2 Ml Vial) 4 mg IV Q6H PRN PRN Reason: Nausea And Vomiting Stop: 05/08/21 02:49 Pantoprazole Sodium (Pantoprazole 40 Mg Tab) 40 mg PO BID J[facility]IE Stop: 05/08/21 08:59 Last Admin: 04/08/21 08:21 Dose: 40 mg Documented by: Simethicone (Simethicone 80 Mg Chew) 80 mg PO Q6H PRN PRN Reason: Gas or Constipation Stop: 05/08/21 02:49 Resident Activity Tracking Resident Involvement: Resident Care Provided Care Provided: Adult Hospital Medicine (1) Hypertension Hypertension type: essential hypertension Qualified Code(s): I10 - Essential (primary) hypertension
--- NOTE | 2021-04-08 13:46 | Ultrasound Report ---
US liver CLINICAL HISTORY: elevated LFTs, continued abdominal pain COMPARISON STUDY: CT of the abdomen and pelvis April 07, 2021. FINDINGS: This exam is compromised by suboptimal penetration. Liver is heterogeneous. Sensitivity for detection of hepatic lesions is diminished on this exam. Slight dilatation of the common bile duct i s likely related to cholecystectomy. The pancreas is obscured. A 2.4 cm lesion within the upper pole of the right kidney favors a cyst. Right hydronephrosis is again noted. This was shown on CT of April. IMPRESSION: 1. Exam compromised by suboptimal penetration. Obscured pancreas. 2. Cirrhosis. 2. Redemonstration of right hydronephrosis, shown on CT of April 07, 2021. ACT 112: Negative or not required by law. Electronically signed by: Robe Patterson M.D. 04/08/2021 1:45 PM
[2021-04-09 05:58] LABS: Basophils # (auto) 0.01 K/uL (0-0.2); Basophils % (auto) 0.3 %; Eosinophils # (auto) 0.14 K/uL (0-0.5); Eosinophils % (auto) 3.5 %; Hematocrit (blood only) 40.5 % (37-47); Hemoglobin 13.2 g/dL (12.0-16.0); Lymphocytes # (auto) 0.92 K/uL (1.2-3.4); Lymphocytes % (auto) 23.1 %; Mean Corpuscular Hgb Conc 32.6 g/dL (32-36); Mean Corpuscular Volume 98.3 fL (80-100); Mean Platelet Volume 9.4 fL (7.4-10.4); Monocytes # (auto) 0.38 K/uL (0.11-0.59); Monocytes % (auto) 9.5 %; Neutrophils # (auto) 2.54 K/uL (1.4-6.5); Neutrophils % (auto) 63.6 %; Platelet Count 202 K/uL (130-400); RDW Coefficient of Variation 14.1 % (11.5-14.5); RDW Standard Deviation 50.1 fL (36.4-46.3); Red Blood Count 4.12 M/uL (4.2-5.4); White Blood Count 3.99 K/uL (4.8-10.8)
[2021-04-09 06:30] LABS: Albumin Level 3.2 gm/dl (3.4-5.0); BUN Creatinine Ratio 25.4 (10-20); Bilirubin Direct 0.1 mg/dl (0-0.2); Calcium 8.3 mg/dl (8.5-10.1); Creatinine Clr Calc Pharmacy 50.2 ml/min; Est GFR (African American) 49.7; Est GFR (Non-African American) 42.9; Potassium 4.1 mmol/L (3.5-5.1)
[2021-04-09 06:33] LABS: Bilirubin,Total 0.5 mg/dl (0.2-1); Total Protein 6.6 gm/dl (6.4-8.2)
[2021-04-09] MEDS: METOPROLOL SUCC 50MG EXT REL TAB PO SCH (08:12)
[2021-04-09] MEDS: PANTOprazole 40 MG TAB PO SCH (08:12)
[2021-04-09] MEDS: APIXABAN 5 MG TABLET PO SCH (08:12)
[2021-04-09] MEDS: LOSARTAN POTASSIUM 25 MG TAB PO SCH (08:13)
[2021-04-09] MEDS: ASPIRIN 81 MG ECTAB PO SCH (08:13)
[2021-04-09] MEDS: dilTIAZem HCL 240 MG CAPCR PO SCH (08:14)
[2021-04-09] MEDS: FLUoxetine HCL 20 MG CAP PO SCH (08:14)
[2021-04-09] MEDS: FUROSEMIDE 20 MG TAB PO SCH (08:14)
--- NOTE | 2021-04-09 16:14 | Discharge Summary ---
Date of Service April 09, 2021 Admission HPI Per Admitting Provider Tea Dawkins is a 70yo C female with history of HTN, HLP, GERD, AF on anticoagulation, recurrent pancreatitis presenting with abdominal discomfort. Patient has frequent episodes of abdominal pain at baseline. She reports over the last several years getting intermittent episodes of epigastric pain that radiates to her lower abdomen. She also has nausea with vomiting 1-2 times per week at baseline and intermittent diarrhea. These complaints have been ongoing for several years. She also reports worsening exercise tolerance, SOB, fatigue and LE ongoing for the last year She presents today with an episode of her usual abdominal pain - epigastric with radiation to her lower abdomen. Pain much more severe than prior episodes. Lasted approximately 1 hour and was associated with dizziness and sweating. She passed gas which provided some relief. No additional episodes of abdominal pain. Principal Diagnosis exertional dyspnea Discharge Exam Constitutional WD/WN, vitals as above Eyes PERRL, conjunctivae normal, anicteric sclerae Respiratory normal respiratory effort, lungs clear to auscultation Auscultation: no crackles, no rales, no rhonchi and no wheezes Cardiovascular Rate/Rhythm: regular rate and regular rhythm Heart Sounds: no gallop, no murmur and no cardiac rub Vessels: normal peripheral pulses; no JVD Extremities: no edema Gastrointestinal (Abdomen) Inspection/Auscultation: normal bowel sounds; abdomen not distended Percussion/Palpation: + abdomen tender (suprapubic tenderness) and abdomen soft; no guarding Musculoskeletal no cyanosis or clubbing, extremities motor strength 5/5 Skin no rashes, warm and dry Neurologic PERRL, EOMI, accommodation nl, no face palsy, no dysarthria CN's II-XI intact bilaterally and moves all extremities Psychiatric Orientation: alert and oriented x 3 Discharge Data Allergies Allergy/AdvReac Type Severity Reaction Status Date / Time No Known Allergies Allergy Verified 04/07/21 19:20 Consultations 04/08/21 00:19 ED Decision to Admit Stat Ordered Studies 04/07/21 18:45 CT abd pelvis IV con only Stat 04/08/21 12:41 US liver Routine Hospital Course (1) Exertional dyspnea: Tea Dawkins is a 70 y/o F with PMH significant for HTN, HLP, GERD, AF on Eliquis, and recurrent pancreatitis; who presented to the ER for concerns of persistent abdominal discomfort. Exertional dyspnea: - shortness of breath with exertion over the last several months - previous history of sleep apnea but has not utilized CPAP in many years as she hated the mask, and was told that she had improved - negative troponins during admission - last sleep study (12/26/18): No evidence of clinically significant sleep apnea/hypopnea or nocturnal hypoxemia. So, less concern of right sided dysfunction. - Echo to have final read on 04/10 but preliminary review by camera tuning engineer indicates good function - Recommend event monitor as outpatient for persistent exertional symptoms Permanent atrial fibrillation: Currently in A fib - Rate controlled - Continue Apixaban 5mg po BID - Continue Diltiazem - Continue Metoprolol Abdominal pain, acute, epigastric with elevated LFT: - troponins negative - AST/ALT/Alk phos elevated on admission - Repeat LFTs in AM demonstrating continued downtrend - Liver US demonstrating cirrhosis, obscured pancreas - Held Atorvastatin on admission - resumed on discharged. - s/p cholecystectomy - so likely not biliary colic. - Etiology - ? intestinal colic. - symptoms never recurred during hospital stay. - follow as outpatient. GERD (gastroesophageal reflux disease): - Continue Protonix 40mg po BID Depression: - Continue Fluoxetine Urinary Tract Infection: - patient with increased frequency of urination, with suprapubic tenderness - Urinalysis with 2+ leuk esterase, >30 WBC, and >30 epithelial cells - Urine culture demonstrating normal mixed luis - 5 days of Bactrim provided (2) Abdominal discomfort, epigastric: (3) Hypertension: (4) Cirrhosis: (5) Abnormal results of liver function studies: (6) Fatigue: (7) Permanent atrial fibrillation: Total Time Total Time Spent Total Time Spent (In Minutes): <30 Discharge Plan Discharge Items Patient Disposition: Home - Self-Care Reason For Visit: ABDOMINAL PAIN Discharge Diagnosis: dyspnea on exertion Condition on Discharge: Good Activity: Per Instructions section Non-emergency contact: Primary Care Provider Call non-emergency contact if: you have any medication questions, your symptoms worsen and you have a fever Follow-up/Referrals: Donal Guevara MD [Primary Care Provider] - (follow-up within one week) Diet: Regular Addtl Attending Provider Instructions: You were seen and admitted for concern for returned abdominal pain, your abdominal pain resolved, but with further conversations it was revealed that you have also been having increased shortness of breath with activity over the last several months. For this you had additional evaluations that ultimately were unable to determine the origin of your shortness of breath. You should continue to work with your family doctor on determining the origin of your shortness of breath of this time. They may consider doing a longer monitor of your heart activity that is called an event monitor to determine if the rhythm of your heart is changing during these times when you feel short of breath. Separately, you had a urine study that demonstrated signs of urinary tract infection, while this would not explain your shortness of breath, with your recent increased frequency of urination and the urine test showing signs of infection we determined that it was important to treat at this point. You will have an antibiotic that you can take twice a day for the next 5 days, which will resolve the concerns for the infection. Pending Studies at Discharge: No Stand-Alone Forms: My [facility], Opioid Pain Management, Smoking Cessation Medications and DC Order Prescriptions: New sulfamethoxazole-trimethoprim 800-160 mg Tablet 1 tab PO Q12 5 Days Qty: 9 RF: 0 Continued Eliquis 5 mg tablet 5 mg PO BID Qty: 180 RF: 3 diltiazem HCl 240 mg capsule,extended release 24hr 240 mg PO QAM Qty: 90 RF: 3 cholecalciferol (vitamin D3) [Vitamin D3] 25 mcg (1,000 unit) capsule 2,000 unit PO QAM RF: 0 metoprolol succinate [Toprol XL] 50 mg tablet extended release 24 hr 50 mg PO BID Qty: 180 RF: 3 pantoprazole 40 mg tablet,delayed release (DR/EC) 40 mg PO BID Qty: 90 RF: 1 aspirin 81 mg tablet,delayed release (DR/EC) 81 mg PO QAM RF: 0 nystatin 100,000 unit/gram powder 1 applic topical BID PRN (Reason: Candidiasis) Qty: 60 RF: 5 fluoxetine 40 mg capsule 40 mg PO QAM RF: 0 atorvastatin 40 mg tablet 40 mg PO QAM RF: 0 fluoxetine 20 mg capsule 20 mg PO QAM RF: 0 hydrocodone-acetaminophen 5-325 mg tablet 1 tab PO Q6H PRN (Reason: pain) Qty: 15 RF: 0 furosemide 40 mg tablet 100 mg PO QAM RF: 0 losartan 25 mg tablet 25 mg PO QAM RF: 0 Discharge Orders: Discharge Order (Routine); Ordered 04/09/21 Ordered By: Jairon Zabala/Other Patient Handouts: Understanding Urinary Tract ... Admission Data Admit Date/Time: 04/08/21 01:17 Attending Provider: Erin Jensen Admit Provider: Bindu Kumar Primary Care Provider: Donal Guevara Other Providers: Bindu Kumar Other Interventions: Discharge Summary Assessment (RN) Last Done: 04/09/21 16:11 Supervising Physician Co-Signing Physician Notes Resident Physician Supervision Note: I independently interviewed and examined the patient and verified the baxter history and physical, reviewed labs and image studies and agree with resident Dr. Cohen findings and care plan. Resident Activity Tracking Resident Involvement: Resident Care Provided Care Provided: Adult Hospital Medicine
[2021-04-09] MEDS ORDERED: SULFAMETHOXAZOLE/TRIMETHOPRIM DS 800/160MG TAB PO SCH (21:00)
--- NOTE | 2021-04-10 15:36 | XCELERA ---
[id number]
== END 2021-04-09 17:19 | disposition home or self-care (01) ==
LOC: ED 16:59 → 3W 16:59 → SUATTDRO 04-08 01:17 → 3W 04-08 02:31

== ENCOUNTER 2021-04-16 20:00 | Inpatient (IN) ==
[2021-04-16] MEDS ORDERED: SODIUM CHLORIDE 0.9% 1000ML 1,000 ML IV ONE (20:21)
[2021-04-16] MEDS ORDERED: MoRPHine SULFATE 4 MG/ML 1 ML CARP\\VIAL IV STA ×2 (20:21→22:35)
[2021-04-16] MEDS ORDERED: ONDANSETRON INJ 2 MG/ML 2 ML VIAL IV STA (20:21)
--- NOTE | 2021-04-16 20:25 | Emergency Department Note ---
Impression & Plan Abdominal pain, Chest pain, ARIADNE (acute kidney injury) ED Provider Note NAME: GUSTABO MCKEON AGE: 71 SEX: F : 1950 ARRIVES VIA: Walk-In INFORMANT: Patient ED PROVIDER(S): Darius Zimmerman DO CHIEF COMPLAINT: Abdominal pain HPI: Patient is a 71-year-old female who presents to the ER for abdominal pain. She was here several days ago and had a ureteral stent replaced. For the past 3 days she has been having nausea and vomiting. This has improved markedly today. She denies any headache or change in vision. No chest pain or shortness of breath. Denies any dysuria, urgency, or frequency. She does have pain in the lower pelvis. Is about a 6 out of 10. No other exacerbating or remitting factors. She then later started complaining of chest pain which was in the middle of her chest. She describes as a sharp stabbing/tightness. ROS: See above HPI for pertinent positives & negatives. A total of 10 systems reviewed and were otherwise negative. PAST MEDICAL HISTORY:See Below PAST SURGICAL HISTORY:See Below FAMILY HISTORY:See Below SOCIAL HISTORY:See Below HOME MEDICATIONS:See Below ALLERGIES:See Below VITALS:See Below PHYSICAL EXAMINATION: GENERAL: Sitting up in bed, alert, well appearing, well nourished, no distress, non-toxic EYE EXAM: normal conjunctiva. OROPHARYNX: no exudate, no erythema, lips, buccal mucosa, and tongue normal and mucous membranes are moist NECK: supple, no nuchal rigidity, no adenopathy, non-tender LUNGS: Clear to auscultation. Normal chest wall mechanics HEART: no murmurs, S1 normal and S2 normal ABDOMEN: abdomen soft, tender in the lower abdomen, normo-active bowel sounds, no masses, no rebound or guarding. UPPER EXTREMITIES: upper extremities are grossly normal. LOWER EXTREMITIES: No pitting edema. NEURO EXAM: Normal sensorium, cranial nerves II-XII grossly intact, normal speech, no gross weakness of arms, no gross weakness of legs. MEDICAL DECISION MAKING: Patient is a 71-year-old female who presents the ER for abdominal pain associate with nausea vomiting. She notes that she has been unable to get out of bed and unable to keep any down for the past 2 to 3 days. It has improved a little bit today. IV was established blood work was obtained. Labs showed no significant leukocytosis or anemia. INR was unremarkable. BMP with an elevated BUN at 35. Creatinine at 1.83 up from baseline of 1.2-1.1. LFTs bilirubin was unremarkable. Troponin was negative. Lipase was unremarkable. Covid was negative. CT abdomen pelvis showed ureteral stent in place with some hydro-. Does not appear to be significantly changed from previous. After evaluation was near complete started complaining of chest pain. EKG was obtained as well as chest x-ray and troponin. She was given morphine. I do favor that this is likely musculoskeletal but cannot be certain. She notes that she was feeling worse. Eventually discussed the case with the hospitalist for observation. She does have an extensive history of CVA, hypertension, morbid obesity and CAD Triage Nursing notes reviewed. Limited review of prior medical records performed Vital Signs: reviewed and remarkable for Tachy Differential diagnosis: Differential diagnoses includes but is not limited to gastritis, peptic ulcer disease, GERD, gallbladder disease, pancreatitis, small bowel obstruction, acute coronary syndrome, pericarditis, ischemic bowel, irritable bowel disease, irritable bowel syndrome, appendicitis, diverticulitis, malignancy, hernia, u rinary tract infection, torsion, /ectopic (if female), perforation, trauma, infectious. ER treatment provided: See below Diagnostics interpreted by me: ECG:/A. fib rate of 97 Normal axis Low voltage QTC 490 Septal Q waves Cardiac Monitoring: An order was placed for continuous cardiac monitoring. The monitor shows a rate of 92 with A. fib rhythm. Laboratory studies: As stated above and show below. Imaging studies: CT abdomen pelvis as discussed above Consultation(s): none Procedures: none Critical Care: None Past Med/Surg History Medical History (Updated 04/17/21 @ 00:07 by Darius Zimmerman DO) Abdominal pain, acute, epigastric Abnormal computed tomography of abdomen and pelvis Abnormal results of liver function studies Anemia HX OF - IRON INFUSION SEVERAL MONTHS AGO Atrial fibrillation Dx approx 5 years ago - follows w/ Dr. Brewer (s/p remote pulmonary venous ablation X 2, on Eliquis and multiple negative chronotropes Bilateral pleural effusion Cardiac murmur Mild-moderate mitral regurgitation on 12/2019 echo, mild TR and MT Cholangitis Chronic diastolic congestive heart failure Cirrhosis Diaphoresis Dissection of vertebral artery Encounter for pre-operative examination Fecal incontinence GERD (gastroesophageal reflux disease) History of skin cancer & REMOVED History of sleep apnea HX SLEEP STUDY AND MACHINE, SINCE D/C'D - SLEEP APNEA RESOLVED Hydronephrosis of right kidney Hyperlipemia Hypertension Infection due to ESBL-producing Escherichia coli Kidney stones Lesion of ureter biopsy 12/29/2020 (pt unsure of results) Morbid obesity Pain in the abdomen Perineal itching, female PFO (patent foramen ovale) Suspected per records Recurrent pancreatitis HX OF / 3-4 YR AGO Scalp itch Skin abscess Skin irritation SOB (shortness of breath) on exertion TIA (transient ischemic attack) TIA (transient ischemic attack) 2018- [place] - no residual -NO ISSUES SINCE Tick bite Urinary tract infection Surgical History (Updated 04/17/21 @ 00:05 by Marielena Benavides MD) H/O: hysterectomy History of cardiac radiofrequency ablation D/T AFIB - PT REPORTS HAD 1 BUT MAYBE 2 - NOT SURE DATES ([facility]) History of cardioversion multiple History of colonoscopy History of colostomy History of colostomy reversal History of cystoscopy and Right Ureteroscopy with stent. Following with Dr Rowe. 12/2020. History of esophagogastroduodenoscopy (EGD) History of tubal ligation History of umbilical hernia repair Hx of abdominal surgery FOR REMOVAL OF CYST - PT NOT SURE TYPE Hx of cholecystectomy Hx of laparoscopy Hx of removal of cyst Tubal ligation status Family History Grandmother Diabetes Hypertension Mother Heart disease Hypertension Grandfather Stomach cancer Hypertension Father Pancreatic cancer Hypertension Other No family history of adverse response to anesthesia Denies family history of Ovarian cancer Breast cancer Colorectal cancer Social History Smoking Status: Never smoker Second Hand Exposure: No; Hx Alcohol Use: No Hx Substance Use: Yes Substance Use Type Other:: last use was 40 years ago Preferred Language: Vietnamese Communication Ability: Effective Visual Impairment: No Limitations Hearing Ability: Normal Molecular Biology Director Required: No Beliefs That Will Affect Care: None marital status: Current Living Situation: Spouse 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 status: 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 other: H[employer]IEF [employer] Feels Safe at Home: Yes Seatbelt Use: always Sunscreen Use: No Assistive Devices: None Allergies Allergies Allergy/AdvReac Type Severity Reaction Status Date / Time No Known Allergies Allergy Verified 04/16/21 22:14 Home Meds Home Medications Medication Instructions Recorded Confirmed aspirin 81 mg tablet,delayed 81 mg PO QAM tab 09/02/19 04/16/21 release atorvastatin 40 mg PO QAM 11/03/20 04/16/21 fluoxetine 20 mg PO QAM 11/03/20 04/16/21 fluoxetine 40 mg PO QAM 11/03/20 04/16/21 cholecalciferol (vitamin D3) 25 2,000 unit PO QAM cap 02/07/21 04/16/21 mcg (1,000 unit) capsule furosemide 80 mg PO QAM 03/24/21 04/16/21 losartan 25 mg PO QAM 03/24/21 04/16/21 Previous Rx's Medication Instructions Recorded apixaban 5 mg tablet 5 mg PO BID #180 tab 08/25/20 diltiazem HCl 240 mg 240 mg PO QAM #90 cap 12/09/20 capsule,extended release 24 hr nystatin 100,000 unit/gram topical 1 applic TOPICAL BID PRN #60 g 02/06/21 powder metoprolol succinate 50 mg 50 mg PO BID #180 tab 02/17/21 tablet,extended release 24 hr pantoprazole 40 mg tablet,delayed 40 mg PO BID #90 tab 03/09/21 release ciprofloxacin HCl [Cipro] 500 mg PO BID #6 tab 04/13/21 hydrocodone-acetaminophen 1 tab PO Q6H PRN #20 tab 04/13/21 Results & Data (ED) Vital Signs Vital Signs - 24 hr 04/16/21 20:01 04/16/21 20:41 04/16/21 20:42 Temperature 36.4 C L Temperature Source Temporal Artery Scan Pulse Rate 107 H 94 H 96 H Pulse Rate from SpO2 Sensor 104 H 96 H Respiratory Rate 18 22 28 H Respiratory Effort / Characteristics Non-Labored Spontaneous Respiratory Depth Normal Blood Pressure 117/81 113/76 Blood Pressure Mean 93 88 Pulse Oximetry 95 96 95 Oxygen Delivery Method Room Air Sepsis Recent Fever Within 48 Hours No Sepsis New/Unexplained Change in Mental Status N/A Sepsis Action Taken by Nursing No Action Required 04/16/21 20:46 04/16/21 21:00 04/16/21 21:01 Temperature Temperature Source Pulse Rate 87 92 H Pulse Rate from SpO2 Sensor 90 96 H Respiratory Rate 14 18 Respiratory Effort / Characteristics Respiratory Depth Blood Pressure 107/64 Blood Pressure Mean 78 Pulse Oximetry 94 94 94 Oxygen Delivery Method Room Air Sepsis Recent Fever Within 48 Hours Sepsis New/Unexplained Change in Mental Status Sepsis Action Taken by Nursing 04/16/21 21:31 04/16/21 21:33 04/16/21 22:00 Temperature Temperature Source Pulse Rate 91 H 93 H 88 Pulse Rate from SpO2 Sensor 92 H 96 H 93 H Respiratory Rate 15 13 19 Respiratory Effort / Characteristics Respiratory Depth Blood Pressure 122/76 125/75 Blood Pressure Mean 91 91 Pulse Oximetry 96 95 96 Oxygen Delivery Method Sepsis Recent Fever Within 48 Hours Sepsis New/Unexplained Change in Mental Status Sepsis Action Taken by Nursing 04/16/21 22:30 04/16/21 22:31 04/16/21 23:00 Temperature Temperature Source Pulse Rate 89 98 H 98 H Pulse Rate from SpO2 Sensor 87 95 H 94 H Respiratory Rate 16 17 14 Respiratory Effort / Characteristics Respiratory Depth Blood Pressure 123/73 115/82 Blood Pressure Mean 89 93 Pulse Oximetry 93 94 96 Oxygen Delivery Method Sepsis Recent Fever Within 48 Hours Sepsis New/Unexplained Change in Mental Status Sepsis Action Taken by Nursing 04/16/21 23:01 04/16/21 23:30 Temperature Temperature Source Pulse Rate 92 H 94 H Pulse Rate from SpO2 Sensor 93 H 96 H Respiratory Rate 15 14 Respiratory Effort / Characteristics Respiratory Depth Blood Pressure 102/63 Blood Pressure Mean 76 Pulse Oximetry 95 94 Oxygen Delivery Method Sepsis Recent Fever Within 48 Hours Sepsis New/Unexplained Change in Mental Status Sepsis Action Taken by Nursing Laboratory Data Result diagrams: 04/16/21 20:35 04/16/21 20:35 Lab Results 04/16/21 04/16/21 04/16/21 Range/Units 20:35 20:35 20:35 WBC 4.94 (4.8-10.8) K/uL RBC 4.41 (4.2-5.4) M/uL Hgb 14.3 (12.0-16.0) g/dL POC Hgb (12.0-16.0) g/dl Hct 42.4 (37-47) % POC Hct (37-47) % MCV 96.1 (80-100) fL MCH 32.4 (25-34) pg MCHC 33.7 (32-36) g/dL RDW Std Deviation 50.1 H (36.4-46.3) fL RDW Coeff of Rodrigo 14.2 (11.5-14.5) % Plt Count 195 (130-400) K/uL MPV 9.2 (7.4-10.4) fL Immature Gran % (Auto) 0.2 % Neut % (Auto) 79.2 % Lymph % (Auto) 10.9 % Leon % (Auto) 9.1 % Eos % (Auto) 0.4 % Baso % (Auto) 0.2 % Neut # (Auto) 3.91 (1.4-6.5) K/uL Lymph # (Auto) 0.54 L (1.2-3.4) K/uL Leon # (Auto) 0.45 (0.11-0.59) K/uL Eos # (Auto) 0.02 (0-0.5) K/uL Baso # (Auto) 0.01 (0-0.2) K/uL Immature Gran # (Auto) 0.01 (0.00-0.02) K/uL PT 10.8 (9.0-12.0) Seconds INR 1.1 (0.9-1.1) POC Sodium (135-144) mmol/L Sodium 137 (136-145) mmol/L POC Potassium (3.3-5.0) mmol/L Potassium 4.2 (3.5-5.1) mmol/L POC Chloride (101-112) mmol/L Chloride 103 (98-107) mmol/L Carbon Dioxide 25 (21-32) mmol/L POC Total CO2 (24-31) mmol/L Anion Gap 10.0 (3-11) POC Anion Gap (16-25) mmol/L POC BUN (7-18) mg/dl BUN 33 H (7-18) mg/dl Creatinine 1.83 H (0.6-1.2) mg/dl POC Creatinine (0.6-1.3) mg/dl Est Cr Clr Drug Dosing 34.0 ml/min Est GFR ( Amer) 32.1 ml/min Est GFR (Non-Af Amer) 27.7 ml/min BUN/Creatinine Ratio 18.0 (10-20) Glucose 137 H (70-99) mg/dl POC Glucose (other) (70-99) mg/dl Calcium 8.7 (8.5-10.1) mg/dl POC Ioniz Calcium Stella (1.12-1.32) mmol/l Total Bilirubin 0.6 (0.2-1) mg/dl AST 31 (15-37) U/L ALT 32 (12-78) U/L Alkaline Phosphatase 147 H (45-117) U/L Troponin I (0-0.045) ng/ml Total Protein 7.4 (6.4-8.2) gm/dl Albumin 3.2 L (3.4-5.0) gm/dl Globulin 4.2 H (2.5-4.0) gm/dl Albumin/Globulin Ratio 0.8 L (0.9-2) Lipase 132 (73-393) U/L Specimen Hemolysis COVID-19 Eval Order SARS-CoV-2 (PCR) (Negative) 04/16/21 04/16/21 04/16/21 Range/Units 20:45 22:44 22:44 WBC (4.8-10.8) K/uL RBC (4.2-5.4) M/uL Hgb (12.0-16.0) g/dL POC Hgb 14.6 (12.0-16.0) g/dl Hct (37-47) % POC Hct 43 (37-47) % MCV (80-100) fL MCH (25-34) pg MCHC (32-36) g/dL RDW Std Deviation (36.4-46.3) fL RDW Coeff of Rodrigo (11.5-14.5) % Plt Count (130-400) K/uL MPV (7.4-10.4) fL Immature Gran % (Auto) % Neut % (Auto) % Lymph % (Auto) % Leon % (Auto) % Eos % (Auto) % Baso % (Auto) % Neut # (Auto) (1.4-6.5) K/uL Lymph # (Auto) (1.2-3.4) K/uL Leon # (Auto) (0.11-0.59) K/uL Eos # (Auto) (0-0.5) K/uL Baso # (Auto) (0-0.2) K/uL Immature Gran # (Auto) (0.00-0.02) K/uL PT (9.0-12.0) Seconds INR (0.9-1.1) POC Sodium 138 (135-144) mmol/L Sodium (136-145) mmol/L POC Potassium 4.3 (3.3-5.0) mmol/L Potassium (3.5-5.1) mmol/L POC Chloride 102 (101-112) mmol/L Chloride (98-107) mmol/L Carbon Dioxide (21-32) mmol/L POC Total CO2 28 (24-31) mmol/L Anion Gap (3-11) POC Anion Gap 13.0 L (16-25) mmol/L POC BUN 35 H (7-18) mg/dl BUN (7-18) mg/dl Creatinine (0.6-1.2) mg/dl POC Creatinine 2.2 H (0.6-1.3) mg/dl Est Cr Clr Drug Dosing ml/min Est GFR ( Amer) ml/min Est GFR (Non-Af Amer) ml/min BUN/Creatinine Ratio (10-20) Glucose (70-99) mg/dl POC Glucose (other) 135 H (70-99) mg/dl Calcium (8.5-10.1) mg/dl POC Ioniz Calcium Stella 1.03 L (1.12-1.32) mmol/l Total Bilirubin (0.2-1) mg/dl AST (15-37) U/L ALT (12-78) U/L Alkaline Phosphatase (45-117) U/L Troponin I (0-0.045) ng/ml Total Protein (6.4-8.2) gm/dl Albumin (3.4-5.0) gm/dl Globulin (2.5-4.0) gm/dl Albumin/Globulin Ratio (0.9-2) Lipase (73-393) U/L Specimen Hemolysis COVID-19 Eval Order Covid19 at [facility] SARS-CoV-2 (PCR) NEGATIVE (Negative) 04/16/21 Range/Units 23:08 WBC (4.8-10.8) K/uL RBC (4.2-5.4) M/uL Hgb (12.0-16.0) g/dL POC Hgb (12.0-16.0) g/dl Hct (37-47) % POC Hct (37-47) % MCV (80-100) fL MCH (25-34) pg MCHC (32-36) g/dL RDW Std Deviation (36.4-46.3) fL RDW Coeff of Rodrigo (11.5-14.5) % Plt Count (130-400) K/uL MPV (7.4-10.4) fL Immature Gran % (Auto) % Neut % (Auto) % Lymph % (Auto) % Leon % (Auto) % Eos % (Auto) % Baso % (Auto) % Neut # (Auto) (1.4-6.5) K/uL Lymph # (Auto) (1.2-3.4) K/uL Leon # (Auto) (0.11-0.59) K/uL Eos # (Auto) (0-0.5) K/uL Baso # (Auto) (0-0.2) K/uL Immature Gran # (Auto) (0.00-0.02) K/uL PT (9.0-12.0) Seconds INR (0.9-1.1) POC Sodium (135-144) mmol/L Sodium (136-145) mmol/L POC Potassium (3.3-5.0) mmol/L Potassium (3.5-5.1) mmol/L POC Chloride (101-112) mmol/L Chloride (98-107) mmol/L Carbon Dioxide (21-32) mmol/L POC Total CO2 (24-31) mmol/L Anion Gap (3-11) POC Anion Gap (16-25) mmol/L POC BUN (7-18) mg/dl BUN (7-18) mg/dl Creatinine (0.6-1.2) mg/dl POC Creatinine (0.6-1.3) mg/dl Est Cr Clr Drug Dosing ml/min Est GFR ( Amer) ml/min Est GFR (Non-Af Amer) ml/min BUN/Creatinine Ratio (10-20) Glucose (70-99) mg/dl POC Glucose (other) (70-99) mg/dl Calcium (8.5-10.1) mg/dl POC Ioniz Calcium Stella (1.12-1.32) mmol/l Total Bilirubin (0.2-1) mg/dl AST (15-37) U/L ALT (12-78) U/L Alkaline Phosphatase (45-117) U/L Troponin I < 0.015 (0-0.045) ng/ml Total Protein (6.4-8.2) gm/dl Albumin (3.4-5.0) gm/dl Globulin (2.5-4.0) gm/dl Albumin/Globulin Ratio (0.9-2) Lipase (73-393) U/L Specimen Hemolysis COVID-19 Eval Order SARS-CoV-2 (PCR) (Negative) Administered Medications Discontinued Medications Sodium Chloride (Nss 1000ml) 1,000 mls @ 999 mls/hr IV .[id number] ONE Stop: 04/16/21 21:21 Last Infusion: 04/16/21 22:00 Dose: 999 mls/hr Documented by: [id number] Admin: 04/16/21 20:39 Dose: 999 mls/hr Documented by: [id number] Morphine Sulfate (Morphine Sulfate 4 Mg/Ml 1 Ml Carp\Vial) 4 mg IV NOW STA Stop: 04/16/21 20:22 Last Admin: 04/16/21 20:38 Dose: 4 mg Documented by: [id number] Morphine Sulfate (Morphine Sulfate 4 Mg/Ml 1 Ml Carp\Vial) 4 mg IV NOW STA Stop: 04/16/21 22:36 Last Admin: 04/16/21 22:41 Dose: 4 mg Documented by: [id number] Ondansetron HCl (Ondansetron Inj 2 Mg/Ml 2 Ml Vial) 4 mg IV NOW STA Stop: 04/16/21 20:22 Last Admin: 04/16/21 20:39 Dose: 4 mg Documented by: [id number] Discharge Plan Visit Data Chief Complaint: Constipation Stated Complaint: CONSTIPATED ED Provider: Darius Zimmerman Discharge Problem: Abdominal pain, Chest pain, ARIADNE (acute kidney injury) Discharge Instructions Interventions: ED Discharge Assessment Last Done: 04/16/21 23:57 Forms Stand Alone Forms: [facility] Prescriptions Prescriptions: No Action Eliquis 5 mg tablet 5 mg PO BID Qty: 180 RF: 3 diltiazem HCl 240 mg capsule,extended release 24hr 240 mg PO QAM Qty: 90 RF: 3 cholecalciferol (vitamin D3) [Vitamin D3] 25 mcg (1,000 unit) capsule 2,000 unit PO QAM RF: 0 metoprolol succinate [Toprol XL] 50 mg tablet extended release 24 hr 50 mg PO BID Qty: 180 RF: 3 pantoprazole 40 mg tablet,delayed release (DR/EC) 40 mg PO BID Qty: 90 RF: 1 aspirin 81 mg tablet,delayed release (DR/EC) 81 mg PO QAM RF: 0 nystatin 100,000 unit/gram powder 1 applic topical BID PRN (Reason: Candidiasis) Qty: 60 RF: 5 fluoxetine 40 mg capsule 40 mg PO QAM RF: 0 atorvastatin 40 mg tablet 40 mg PO QAM RF: 0 fluoxetine 20 mg capsule 20 mg PO QAM RF: 0 furosemide 40 mg tablet 80 mg PO QAM RF: 0 losartan 25 mg tablet 25 mg PO QAM RF: 0 ciprofloxacin HCl [Cipro] 500 mg tablet 500 mg PO BID Qty: 6 RF: 0 hydrocodone-acetaminophen 5-325 mg tablet 1 tab PO Q6H PRN (Reason: pain) Qty: 20 RF: 0 Referrals Referrals: Donal Guevara MD [Primary Care Provider] - Discharge Problem: Abdominal pain Qualifiers: Abdominal location: unspecified location Qualified Code(s): R10.9 - Unspecified abdominal pain Chest pain Qualifiers: Chest pain type: unspecified Qualified Code(s): R07.9 - Chest pain, unspecified
[2021-04-16 20:51] LABS: Basophils # (auto) 0.01 K/uL (0-0.2); Basophils % (auto) 0.2 %; Eosinophils # (auto) 0.02 K/uL (0-0.5); Eosinophils % (auto) 0.4 %; Hematocrit (blood only) 42.4 % (37-47); Hemoglobin 14.3 g/dL (12.0-16.0); Immature Granulocytes # (auto) 0.01 K/uL (0.00-0.02); Immature Granulocytes % (auto) 0.2 %; Lymphocytes # (auto) 0.54 K/uL (1.2-3.4); Lymphocytes % (auto) 10.9 %; Mean Corpuscular Hemoglobin 32.4 pg (25-34); Mean Corpuscular Hgb Conc 33.7 g/dL (32-36); Mean Corpuscular Volume 96.1 fL (80-100); Mean Platelet Volume 9.2 fL (7.4-10.4); Monocytes # (auto) 0.45 K/uL (0.11-0.59); Monocytes % (auto) 9.1 %; Neutrophils # (auto) 3.91 K/uL (1.4-6.5); Neutrophils % (auto) 79.2 %; Platelet Count 195 K/uL (130-400); RDW Coefficient of Variation 14.2 % (11.5-14.5); RDW Standard Deviation 50.1 fL (36.4-46.3); Red Blood Count 4.41 M/uL (4.2-5.4); White Blood Count 4.94 K/uL (4.8-10.8)
[2021-04-16 20:59] LABS: iSTAT Creatinine 2.2 mg/dl (0.6-1.3); iSTAT Hemoglobin 14.6 g/dl (12.0-16.0); iSTAT Ionized Calcium 1.03 mmol/l (1.12-1.32); iSTAT Potassium 4.3 mmol/L (3.3-5.0)
[2021-04-16 21:00] LABS: INR 1.1 (0.9-1.1); Prothrombin Time 10.8 Seconds (9.0-12.0)
[2021-04-16 21:14] LABS: Albumin Globulin Ratio 0.8 (0.9-2); Albumin Level 3.2 gm/dl (3.4-5.0); Bilirubin,Total 0.6 mg/dl (0.2-1); Calcium 8.7 mg/dl (8.5-10.1); Est GFR (African American) 32.1 ml/min; Est GFR (Non-African American) 27.7 ml/min; Globulin 4.2 gm/dl (2.5-4.0); Potassium 4.2 mmol/L (3.5-5.1); Total Protein 7.4 gm/dl (6.4-8.2)
--- NOTE | 2021-04-16 23:01 | History & Physical Report ---
Date of Service April 16, 2021 Assessment & Plan (1) Constipation: 71 yo F w extensive PMH including Afib, cirrhosis, TIA, GERD, HTN,HFpEF, morbid obesity, recently had a ureteral stent placed for hydronephrosis of r kidney. Constipation - CT A/P negative for infection - Scheduled miralax BID, senna daily - gentle IV fluids NS 125 - ambulate ad patricia ARIADNE on CKD - Cr normally 1.18- 1.23, 1.83 today - fluids as above - most likely secondary to poor PO intake in addition to recent urologic procedure - daily CMP S/P R Ureteral Stent placement - continue ciprofloxacin BID - monitor I/O - daily CBC Chronic Medical Problems GERD - cont pantoprazole AFib - cont diltiazem, eliquis Hx TIA - cont statin, ASA Anx/Dep - cont fluoxetine 60 mg AM HTN - cont losartan, metoprolol DVT ppx: on eliquis FEN/GI: full liquid diet, pantoprazole Code Status: Full Code Dispo: Med/surg (2) Exertional dyspnea: (3) Cirrhosis: (4) Hypertension: (5) GERD (gastroesophageal reflux disease): (6) TIA (transient ischemic attack): (7) Acute renal insufficiency: (8) Anticoagulant long-term use: (9) BMI 36.0-36.9,adult: (10) Permanent atrial fibrillation: (11) Chronic diastolic congestive heart failure: (12) Morbid obesity: (13) ARIADNE (acute kidney injury): History of Present Illness 71-year-old female with a past medical history of cirrhosis, hypertension, GERD, TIA, vertebral artery dissection, mesenteric fibrosis, PAF, ESBL UTI, diastolic heart failure who presents to the emergency department for week of ongoing abdominal pain. She states that earlier in the week she had acute abdominal pain and was seen by urology who placed a ureteral stent on the right side for an infection stones. She states that since then she has continued to have nausea and some episodes of nonbilious nonbloody vomiting. She states she also has not had an bowel movement in approximately 4 days. She describes her pain as being in the anterior lower abdomen as a from her uterus. She is menopausal and denies any vaginal bleeding but says she has had hematuria. She denies any melanotic stools or diarrhea. She denies any fevers or chills at home. She does attest to having dyspnea on exertion but is been worsening over the last few months particularly when she is going up steps. Primary Care Provider: Christopher Guevraa MD Allergies Allergy/AdvReac Type Severity Reaction Status Date / Time No Known Allergies Allergy Verified 04/16/21 22:14 Home Medications Medication Instructions Recorded Confirmed Type aspirin 81 mg tablet,delayed 81 mg PO QAM tab 09/02/19 04/20/21 History release apixaban 5 mg tablet 5 mg PO BID #180 tab 08/25/20 04/20/21 Rx atorvastatin 40 mg PO QAM 11/03/20 04/20/21 History fluoxetine 20 mg PO QAM 11/03/20 04/20/21 History fluoxetine 40 mg PO QAM 11/03/20 04/20/21 History diltiazem HCl 240 mg 240 mg PO QAM #90 cap 12/09/20 04/20/21 Rx capsule,extended release 24 hr nystatin 100,000 unit/gram topical 1 applic TOPICAL BID PRN #60 g 02/06/21 04/20/21 Rx powder cholecalciferol (vitamin D3) 25 2,000 unit PO QAM cap 02/07/21 04/20/21 History mcg (1,000 unit) capsule metoprolol succinate 50 mg 50 mg PO BID #180 tab 02/17/21 04/20/21 Rx tablet,extended release 24 hr pantoprazole 40 mg tablet,delayed 40 mg PO BID #90 tab 03/09/21 04/20/21 Rx release furosemide 80 mg PO QAM 03/24/21 04/20/21 History losartan 25 mg PO QAM 03/24/21 04/20/21 History hydrocodone-acetaminophen 1 tab PO Q6H PRN #20 tab 04/13/21 04/20/21 Rx polyethylene glycol 3350 [Miralax] 8.5 g PO DAILY PRN #119 g 04/19/21 04/20/21 Rx Past Med/Surg History Medical History Abdominal pain, acute, epigastric Abnormal computed tomography of abdomen and pelvis Abnormal results of liver function studies Anemia HX OF - IRON INFUSION SEVERAL MONTHS AGO Atrial fibrillation Dx approx 5 years ago - follows w/ Dr. Brewer (s/p remote pulmonary venous ablation X 2, on Eliquis and multiple negative chronotropes Bilateral pleural effusion Cardiac murmur Mild-moderate mitral regurgitation on 12/2019 echo, mild TR and [place] Cholangitis Chronic diastolic congestive heart failure Cirrhosis Diaphoresis Dissection of vertebral artery Encounter for pre-operative examination Fecal incontinence GERD (gastroesophageal reflux disease) History of skin cancer & REMOVED History of sleep apnea HX SLEEP STUDY AND MACHINE, SINCE D/C'D - SLEEP APNEA RESOLVED Hydronephrosis of right kidney Hyperlipemia Hypertension Infection due to ESBL-producing Escherichia coli Kidney stones Lesion of ureter biopsy 12/29/2020 (pt unsure of results) Morbid obesity Pain in the abdomen Perineal itching, female PFO (patent foramen ovale) Suspected per records Recurrent pancreatitis HX OF / 3-4 YR AGO Scalp itch Skin abscess Skin irritation SOB (shortness of breath) on exertion TIA (transient ischemic attack) TIA (transient ischemic attack) 2018- [place] - no residual -NO ISSUES SINCE Tick bite Urinary tract infection Surgical History H/O: hysterectomy History of cardiac radiofrequency ablation D/T AFIB - PT REPORTS HAD 1 BUT MAYBE 2 - NOT SURE DATES ([facility]) History of cardioversion multiple History of colonoscopy History of colostomy History of colostomy reversal History of cystoscopy and Right Ureteroscopy with stent. Following with Dr Rowe. 12/2020. History of esophagogastroduodenoscopy (EGD) History of tubal ligation History of umbilical hernia repair Hx of abdominal surgery FOR REMOVAL OF CYST - PT NOT SURE TYPE Hx of cholecystectomy Hx of laparoscopy Hx of removal of cyst Tubal ligation status Family History Grandmother Diabetes Hypertension Mother Heart disease Hypertension Grandfather Stomach cancer Hypertension Father Pancreatic cancer Hypertension Other No family history of adverse response to anesthesia Denies family history of Ovarian cancer Breast cancer Colorectal cancer Social History Smoking Status: Former smoker Second Hand Exposure: No; Hx Alcohol Use: No Hx Substance Use: No Preferred Language: Italian Communication Ability: Effective Visual Impairment: No Limitations Hearing Ability: Normal Saw Straightener Required: No Beliefs That Will Affect Care: None marital status: Current Living Situation: Spouse 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 status: retired current occupation: [employer] other: [employer] Feels Safe at Home: Yes Seatbelt Use: always Sunscreen Use: No Assistive Devices: None Review of Systems Constitutional: no fever, no chills, no sweats and no fatigue Eyes: no blind spots and no discharge Ear, Nose, Mouth, Throat: no hearing loss and no nasal congestion Respiratory: no cough and no dyspnea Cardiovascular: no chest pain, no dyspnea on exertion and no edema Gastrointestinal: + abdominal pain, + nausea, + vomiting and + constipation; no diarrhea/loose stools and no blood in stools Genitourinary: no dysuria Musculoskeletal: no joint pain and no myalgia Neurologic: no tingling, no numbness and no headache(s) Endocrine: no fatigue Physical Exam Physical Exam: Constitutional: obese, in no apparent distress,laying comfortably in bed. Eyes: EOMI, pupils equal and reactive bilaterally, no scleral icterus Cardiac: RRR, no murmurs, gallops or rubs. Normal S1, S2 Pulm: CTA BL, no wheezes, rhonchi, crackles or rubs, moving air well throughout both lungs Abd: soft, distended, TTP in right and left lower quadrants, normal bowel sounds, no rebound or guarding Extremities: 2+ peripheral pulses, no edema Neuro: no focal deficits, moving all 4 limbs, A&Ox3 Results & Data Results & Data ([facility]) Vital Signs (Past 12 Hours) Vital Signs Temp Pulse Resp BP Pulse Ox 04/16/21 22:31 98 H 17 94 04/16/21 22:30 89 16 123/73 93 04/16/21 22:00 88 19 125/75 96 04/16/21 21:33 93 H 13 95 04/16/21 21:31 91 H 15 122/76 96 04/16/21 21:01 92 H 18 94 04/16/21 21:00 87 14 107/64 94 04/16/21 20:46 94 04/16/21 20:42 96 H 28 H 95 04/16/21 20:41 94 H 22 113/76 96 04/16/21 20:01 36.4 C L 107 H 18 117/81 95 Laboratory Results WBC 4.94 K/uL (4.8-10.8) 04/16/21 20:35 RBC 4.41 M/uL (4.2-5.4) 04/16/21 20:35 Hgb 14.3 g/dL (12.0-16.0) 04/16/21 20:35 POC Hgb 14.6 g/dl (12.0-16.0) 04/16/21 20:45 Hct 42.4 % (37-47) 04/16/21 20:35 POC Hct 43 % (37-47) 04/16/21 20:45 MCV 96.1 fL (80-100) 04/16/21 20:35 MCH 32.4 pg (25-34) 04/16/21 20:35 MCHC 33.7 g/dL (32-36) 04/16/21 20:35 RDW Std Deviation 50.1 fL (36.4-46.3) H 04/16/21 20:35 RDW Coeff of Rodrigo 14.2 % (11.5-14.5) 04/16/21 20:35 Plt Count 195 K/uL (130-400) 04/16/21 20:35 MPV 9.2 fL (7.4-10.4) 04/16/21 20:35 Immature Gran % (Auto) 0.2 % 04/16/21 20:35 Neut % (Auto) 79.2 % 04/16/21 20:35 Lymph % (Auto) 10.9 % 04/16/21 20:35 Delta % (Auto) 9.1 % 04/16/21 20:35 Eos % (Auto) 0.4 % 04/16/21 20:35 Baso % (Auto) 0.2 % 04/16/21 20:35 Neut # (Auto) 3.91 K/uL (1.4-6.5) 04/16/21 20:35 Lymph # (Auto) 0.54 K/uL (1.2-3.4) L 04/16/21 20:35 Delta # (Auto) 0.45 K/uL (0.11-0.59) 04/16/21 20:35 Eos # (Auto) 0.02 K/uL (0-0.5) 04/16/21 20:35 Baso # (Auto) 0.01 K/uL (0-0.2) 04/16/21 20:35 Immature Gran # (Auto) 0.01 K/uL (0.00-0.02) 04/16/21 20:35 PT 10.8 Seconds (9.0-12.0) 04/16/21 20:35 INR 1.1 (0.9-1.1) 04/16/21 20:35 POC Sodium 138 mmol/L (135-144) 04/16/21 20:45 Sodium 137 mmol/L (136-145) 04/16/21 20:35 POC Potassium 4.3 mmol/L (3.3-5.0) 04/16/21 20:45 Potassium 4.2 mmol/L (3.5-5.1) 04/16/21 20:35 POC Chloride 102 mmol/L (101-112) 04/16/21 20:45 Chloride 103 mmol/L (98-107) 04/16/21 20:35 Carbon Dioxide 25 mmol/L (21-32) 04/16/21 20:35 POC Total CO2 28 mmol/L (24-31) 04/16/21 20:45 Anion Gap 10.0 (3-11) 04/16/21 20:35 POC Anion Gap 13.0 mmol/L (16-25) L 04/16/21 20:45 POC BUN 35 mg/dl (7-18) H 04/16/21 20:45 BUN 33 mg/dl (7-18) H 04/16/21 20:35 Creatinine 1.83 mg/dl (0.6-1.2) H 04/16/21 20:35 POC Creatinine 2.2 mg/dl (0.6-1.3) H 04/16/21 20:45 Est Cr Clr Drug Dosing 34.0 ml/min 04/16/21 20:35 Est GFR ( Amer) 32.1 ml/min 04/16/21 20:35 Est GFR (Non-Af Amer) 27.7 ml/min 04/16/21 20:35 BUN/Creatinine Ratio 18.0 (10-20) 04/16/21 20:35 Glucose 137 mg/dl (70-99) H 04/16/21 20:35 POC Glucose (other) 135 mg/dl (70-99) H 04/16/21 20:45 Calcium 8.7 mg/dl (8.5-10.1) 04/16/21 20:35 POC Ioniz Calcium Stella 1.03 mmol/l (1.12-1.32) L 04/16/21 20:45 Total Bilirubin 0.6 mg/dl (0.2-1) 04/16/21 20:35 AST 31 U/L (15-37) 04/16/21 20:35 ALT 32 U/L (12-78) 04/16/21 20:35 Alkaline Phosphatase 147 U/L (45-117) H 04/16/21 20:35 Troponin I < 0.015 ng/ml (0-0.045) 04/16/21 23:08 Total Protein 7.4 gm/dl (6.4-8.2) 04/16/21 20:35 Albumin 3.2 gm/dl (3.4-5.0) L 04/16/21 20:35 Globulin 4.2 gm/dl (2.5-4.0) H 04/16/21 20:35 Albumin/Globulin Ratio 0.8 (0.9-2) L 04/16/21 20:35 Lipase 132 U/L (73-393) 04/16/21 20:35 Specimen Hemolysis 04/16/21 20:35 COVID-19 Eval Order Covid19 at [facility] 04/16/21 22:44 SARS-CoV-2 (PCR) NEGATIVE (Negative) 04/16/21 22:44 Supervising Physician Co-Signing Physician Notes Attending addendum: I have physically seen this patient, have supervised the medical residents activities, and agree with the H&P unless as otherwise noted. Assessment and Plan: Constipation- CT abdomen pelvis negative MiraLAX 17 g p.o. twice daily, senna daily NSS 125 mils per hour Dulcolax suppository daily as needed ARIADNE on CKD- creatinine 1.83 today, with baseline range 1.18-1.23 Continue IV fluids as noted above Repeat laboratories in a.m. Status post right ureteral stent placement- In position on CT Continue Cipro p.o. twice daily Remaining orders and notations as noted Resident Activity Tracking Resident Involvement: Resident Care Provided Care Provided: Adult Hospital Medicine (1) GERD (gastroesophageal reflux disease) Esophagitis presence: without esophagitis Qualified Code(s): K21.9 - Gastro- esophageal reflux disease without esophagitis (2) Hypertension Hypertension type: essential hypertension Qualified Code(s): I10 - Essential (primary) hypertension
[2021-04-17] MEDS ORDERED: MAGNESIUM HYDROXIDE SUSP 30 ML UDC PO PRN (00:22)
[2021-04-17] MEDS ORDERED: ALUMINUM/MAGNESIUM SUSP 30 ML UDC PO PRN (00:22)
[2021-04-17] MEDS ORDERED: NYSTATIN POWDER 15GM BTL EXT PRN (00:22)
[2021-04-17] MEDS ORDERED: ACETAMINOPHEN 325 MG TAB PO PRN (00:22)
[2021-04-17] MEDS: SODIUM CHLORIDE 0.9% 1000ML 1,000 ML IV SCH ×2 (01:12→08:09)
[2021-04-17] MEDS: METOPROLOL SUCC 50MG EXT REL TAB PO SCH ×3 (01:19→21:16)
[2021-04-17] MEDS: PANTOprazole 40 MG TAB PO SCH ×2 (01:56→07:57)
[2021-04-17] MEDS: APIXABAN 5 MG TABLET PO SCH ×2 (01:56→07:58)
[2021-04-17] MEDS: CIPROFLOXACIN 500 MG TAB PO SCH ×3 (01:56→21:15)
--- NOTE | 2021-04-17 07:26 | XRay Report ---
SINGLE VIEW CHEST CLINICAL HISTORY: Atypical chest pain. FINDINGS: An AP, portable, upright chest radiograph is compared to study dated 04/07/2021. The heart is enlarged. The pulmonary vasculature is noncongested. Chronic interstitial thickening is similar to p revious. There is bibasilar scarring/atelectasis. No airspace consolidation or large pleural effusion is identified. No pneumothorax is seen. The skeletal structures are osteopenic. The bony thorax is g rossly intact. Degenerative change is seen throughout the thoracic spine. IMPRESSION: Cardiomegaly with no acute cardiopulmonary abnormality. ACT 112: Negative or not required by law. Electronically signed by: Norberto Martinez M.D. 04/17/2021 7:25 AM
[2021-04-17] MEDS: ONDANSETRON INJ 2 MG/ML 2 ML VIAL IV PRN ×2 (07:47→18:37)
--- NOTE | 2021-04-17 07:51 | CT Scan Report ---
ABDOMEN AND PELVIS CT WITHOUT CONTRAST CT DOSE: 1289.03 mGy.cm HISTORY: Acute bilateral flank pain with nausea and vomiting flank pain and lower abd pain w/ n/v TECHNIQUE: Multiaxial CT images of the abdomen and pelvis were performed without contrast. A dose lo wering technique was utilized adhering to the principles of ALARA. COMPARISON STUDY: Chest radiograph of same day, CT abdomen pelvis 04/07/2021 FINDINGS: Mild cardiomegaly. Coronary artery calcifications. Trace right pleural effusion has decreas ed in size in the interval. Mild bibasilar atelectasis. No pneumatosis or pneumoperitoneum. The unenh anced spleen, pancreas, and adrenal glands are unremarkable. Cholecystectomy. Mild marginal nodularit y of the liver suggestive of cirrhosis redemonstrated. Bilateral renal hypodensities suggestive of cysts are redemonstrated measuring up to 4.7 cm on the le ft. There are at least 5 nonobstructing calculi left kidney redemonstrated measuring up to approximat elliot 7 mm. A right ureteral stent appears to be in satisfactory positioning. No right-sided renal or u reteral calculi are identified. Mild persistent right-sided hydroureteronephrosis. There is suggestio n of persistent urothelial thickening of the right renal collecting system and right ureter. There is persistent perinephric and periureteral stranding. Unremarkable urinary bladder. Hysterectomy. No ad nexal mass lesion. Extensive calcified plaque of the abdominal aorta and branch vessels. There is no adenopathy. Prior gastric bypass. There is no high-grade small bowel obstruction or bowel wall thickening. Modera te fecal retention of the rectum. Mild colonic diverticulosis. Mild perirectal stranding. Numerous st ool-filled loops of small bowel. Several loops of small bowel are mildly dilated within the midabdome n measuring up to 3.2 cm proximal to the small bowel anastomosis. Noninflamed appendix. IMPRESSION: 1. Satisfactory positioning of the right ureteral stent with mild hydroureteronephrosis. Urothelial t hickening of the right renal collecting system and ureter redemonstrated. No right-sided renal or ure teral calculi. 2. Left-sided nephrolithiasis. 3. Constipation with moderate fecal retention of the rectum. Additionally, there are numerous mildly dilated stool-filled loops of small bowel within the midabdomen proximal to the small bowel anastomos is. Findings may reflect decreased small bowel transit with developing low-grade small bowel obstruct ion considered less likely. Follow-up recommended. 4. Cirrhotic liver. 5. Cardiomegaly with trace right pleural effusion. 6. Additional findings as above. ACT 112: Negative or not required by law. The above report was generated using voice recognition software. It may contain grammatical, syntax o r spelling errors. Electronically signed by: Jeffery Gresham M.D. 04/17/2021 7:49 AM
[2021-04-17] MEDS: FLUoxetine HCL 20 MG CAP PO SCH (07:55)
[2021-04-17] MEDS: ASPIRIN 81 MG ECTAB PO SCH (07:55)
[2021-04-17] MEDS: ATORVASTATIN 40 MG TAB PO SCH (07:55)
[2021-04-17] MEDS: CHOLECALCIFEROL 1,000 UNITS 25 MCG TAB PO SCH (07:56)
[2021-04-17] MEDS: dilTIAZem HCL 240 MG CAPCR PO SCH (07:56)
[2021-04-17] MEDS ORDERED: LOSARTAN POTASSIUM 25 MG TAB PO SCH (09:00)
[2021-04-17] MEDS ORDERED: FLUoxetine HCL 20 MG CAP PO SCH (09:00)
[2021-04-17] MEDS ORDERED: FUROSEMIDE 80 MG TAB PO SCH (09:00)
[2021-04-17] MEDS ORDERED: POLYETHYLENE (MIRALAX) 17 GM PACK PO SCH (09:00)
[2021-04-17] MEDS ORDERED: SENNA 8.6 MG TAB PO SCH (09:00)
[2021-04-17] MEDS ORDERED: bisacodyL 5 MG TABEC PO ONE (09:11)
[2021-04-17 09:45] LABS: Hematocrit (blood only) 39.4 % (37-47); Hemoglobin 12.8 g/dL (12.0-16.0); Mean Corpuscular Hemoglobin 32.2 pg (25-34); Mean Corpuscular Hgb Conc 32.5 g/dL (32-36); Mean Platelet Volume 8.9 fL (7.4-10.4); Platelet Count 168 K/uL (130-400); RDW Coefficient of Variation 14.2 % (11.5-14.5); RDW Standard Deviation 51.5 fL (36.4-46.3); Red Blood Count 3.98 M/uL (4.2-5.4); White Blood Count 4.24 K/uL (4.8-10.8)
[2021-04-17 10:18] LABS: BUN Creatinine Ratio 20.1 (10-20); Calcium 8.4 mg/dl (8.5-10.1); Est GFR (African American) 37.7 ml/min; Est GFR (Non-African American) 32.5 ml/min; Potassium 3.7 mmol/L (3.5-5.1)
[2021-04-17 10:27] LABS: Thyroid Stimulating Hormone 1.49 uIu/ml (0.300-4.500)
--- NOTE | 2021-04-17 11:01 | Hospitalist Progress Note ---
Date of Service April 17, 2021 Assessment & Plan (1) Constipation: 71 yo F w extensive PMH including Afib, cirrhosis, TIA, GERD, HTN,HFpEF, morbid obesity, recently had a ureteral stent placed for hydronephrosis of r kidney. Had scope in past 5-10 years. Hx gastric bypass 20+ years ago. Initia lly with anion gap 12, now resolved. Changed to full admission Constipation --> SMALL BOWEL OBSTRUCTION * - CT A/P negative for infection but does note constipation with moderate fecal retention of the rectum. Additionally, there are numerous mildly dilated stool-filled loops of small bowel within the midabdomen proximal to the small bowel anastomosis. Findings may reflect decreased small bowel transit with developing low-grade small bowel obstruction considered less likely. Follow-up recommended. * Scheduled miralax BID, senna daily * --> Added dulcolax PO daily * 04/17 KUB:--> with Mildly dilated loops of small bowel within the left midabdomen are re-demonstrated. Follow-up recommended to exclude a developing low-grade small bowel obstruction * General surgery consulted -- appreciate recs * Made NPO * NSS @125cc/hr * TSH wnl * Mag level pending * Labs in AM ARIADNE on CKD, also possible UTI * also possibly with UTI, retention possibly secondary to constipation * Cr normally 1.18- 1.23, 1.83 on admission * most likely secondary to poor PO intake in addition to recent urologic pr ocedure * Cr improving -- currently 1.6 * Will hold lasix 80mg daily and losartan 25mg (did get her doses this morning 04/17) * UA cloudy with +leuk est, WBC>epi, RBC and noted small amount of clot * --> Urology consulted s well given recent RIGHT ureteral stent * --> Placed on Ceftriaxone as above (possible Ecoli/quinolone resistance?) * fluids as above * daily CMP S/P R Ureteral Stent placement * continue ciprofloxacin BID * monitor I/O --> required st cath for PVR >600 -- see above * Urology on consult GERD * cont pantoprazole BID AFib * cont diltiazem 240 PO daily, eliquis 5mg PO BID Hx TIA * cont statin, ASA Anx/Dep * cont fluoxetine 60 mg AM HTN * BP 109/76 * Metoprolol 50mg PO BID continued * Holding losartan/lasix as above * Continue to monitor Vit D deficiency -Low january. Continue supplementation 2000IU daily DVT ppx: * on eliquis Dispo: continued inpatient stay (2) Exertional dyspnea: (3) Cirrhosis: (4) Hypertension: (5) GERD (gastroesophageal reflux disease): (6) TIA (transient ischemic attack): (7) Acute renal insufficiency: (8) Anticoagulant long-term use: (9) BMI 36.0-36.9,adult: (10) Permanent atrial fibrillation: (11) Chronic diastolic congestive heart failure: (12) Morbid obesity: (13) ARIADNE (acute kidney injury): Admission and Anticipated Discharge Date Admission Date: April 16, 2021 Subjective Patient seen this morning. Some nausea but no vomiting. No further chest pain -- of note, she had been vomiting LEAF TIER and wretching and this could have been contributing. She has had c-scope in past 5-[address] Foster. History of gastric bypass ~20 years ago. She notes pain is in umbilical region but she also has suprapubic discomfort and her RLQ. Less urination with her constipation. Did have liquid diet this morning but did not eat much. She notes she took approximately 3-4 hydrocodone since her stent procedure and this can contribute to constipation as well as possible SBO on imaging. Got miralax, dulcolax and senna so far. Passing gas but still now 5 days without BM. Will repeat KUB and possibly make NPO +/- consultation with GI pending KUB results. NO fever, chills, chest pain, shortness of breath. Review of Systems Review of Systems: All systems reviewed & are unremarkable except as noted in HPI & below Physical Exam Physical Exam: Constitutional: obese, ,laying comfortably in bed. NAD Eyes: EOMI, pupils equal and reactive bilaterally, no scleral icterus Cardiac: RRR, no murmurs, gallops or rubs. Normal S1, S2 Pulm: CTA BL, no wheezes, rhonchi, crackles or rubs, moving air well throughout both lungs Abd: soft, distended, TTP in right lower quadrants, suprapubic region and umbilical region. +BS, hypoactive, no rebound or guarding Extremities: 2+ peripheral pulses, no edema Neuro: no focal deficits, moving all 4 limbs, A&Ox3 Results & Data Results & Data (MN) Vital Signs (Past 12 Hours) Vital Signs Temp Pulse Pulse Resp BP BP BP 04/17/21 07:59 36.4 C L 97 H 18 109/76 04/17/21 07:55 36.4 C L 88 18 101/68 04/17/21 00:26 36.4 C L 108 H 20 100/70 04/16/21 23:30 94 H 14 102/63 04/16/21 23:01 92 H 15 Pulse Ox 04/17/21 07:59 95 04/17/21 07:55 95 04/17/21 00:26 92 04/16/21 23:30 94 04/16/21 23:01 95 Laboratory Results 04/17/21 04/17/21 04/17/21 Range/Units 09:33 09:33 09:33 WBC 4.24 L (4.8-10.8) K/uL RBC 3.98 L (4.2-5.4) M/uL Hgb 12.8 (12.0-16.0) g/dL POC Hgb (12.0-16.0) g/dl Hct 39.4 (37-47) % POC Hct (37-47) % MCV 99.0 (80-100) fL MCH 32.2 (25-34) pg MCHC 32.5 (32-36) g/dL RDW Std Deviation 51.5 H (36.4-46.3) fL RDW Coeff of Rodrigo 14.2 (11.5-14.5) % Plt Count 168 (130-400) K/uL MPV 8.9 (7.4-10.4) fL Immature Gran % (Auto) % Neut % (Auto) % Lymph % (Auto) % [place] % (Auto) % Eos % (Auto) % Baso % (Auto) % Neut # (Auto) (1.4-6.5) K/uL Lymph # (Auto) (1.2-3.4) K/uL [place] # (Auto) (0.11-0.59) K/uL Eos # (Auto) (0-0.5) K/uL Baso # (Auto) (0-0.2) K/uL Immature Gran # (Auto) (0.00-0.02) K/uL PT (9.0-12.0) Seconds INR (0.9-1.1) POC Sodium (135-144) mmol/L Sodium 141 (136-145) mmol/L POC Potassium (3.3-5.0) mmol/L Potassium 3.7 (3.5-5.1) mmol/L POC Chloride (101-112) mmol/L Chloride 109 H (98-107) mmol/L Carbon Dioxide 23 (21-32) mmol/L POC Total CO2 (24-31) mmol/L Anion Gap 9.0 (3-11) POC Anion Gap (16-25) mmol/L POC BUN (7-18) mg/dl BUN 32 H (7-18) mg/dl Creatinine 1.60 H (0.6-1.2) mg/dl POC Creatinine (0.6-1.3) mg/dl Est Cr Clr Drug Dosing 39.0 ml/min Est GFR ( Amer) 37.7 ml/min Est GFR (Non-Af Amer) 32.5 ml/min BUN/Creatinine Ratio 20.1 H (10-20) Glucose 166 H (70-99) mg/dl POC Glucose (other) (70-99) mg/dl Calcium 8.4 L (8.5-10.1) mg/dl POC Ioniz Calcium Stella (1.12-1.32) mmol/l Magnesium Pending Total Bilirubin (0.2-1) mg/dl AST (15-37) U/L ALT (12-78) U/L Alkaline Phosphatase (45-117) U/L Troponin I (0-0.045) ng/ml Total Protein (6.4-8.2) gm/dl Albumin (3.4-5.0) gm/dl Globulin (2.5-4.0) gm/dl Albumin/Globulin Ratio (0.9-2) Lipase (73-393) U/L TSH 1.490 (0.300-4.500) uIu/ml Specimen Hemolysis COVID-19 Eval Order SARS-CoV-2 (PCR) (Negative) 04/16/21 04/16/21 04/16/21 Range/Units 23:08 22:44 22:44 WBC (4.8-10.8) K/uL RBC (4.2-5.4) M/uL Hgb (12.0-16.0) g/dL POC Hgb (12.0-16.0) g/dl Hct (37-47) % POC Hct (37-47) % MCV (80-100) fL MCH (25-34) pg MCHC (32-36) g/dL RDW Std Deviation (36.4-46.3) fL RDW Coeff of Rodrigo (11.5-14.5) % Plt Count (130-400) K/uL MPV (7.4-10.4) fL Immature Gran % (Auto) % Neut % (Auto) % Lymph % (Auto) % [place] % (Auto) % Eos % (Auto) % Baso % (Auto) % Neut # (Auto) (1.4-6.5) K/uL Lymph # (Auto) (1.2-3.4) K/uL [place] # (Auto) (0.11-0.59) K/uL Eos # (Auto) (0-0.5) K/uL Baso # (Auto) (0-0.2) K/uL Immature Gran # (Auto) (0.00-0.02) K/uL PT (9.0-12.0) Seconds INR (0.9-1.1) POC Sodium (135-144) mmol/L Sodium (136-145) mmol/L POC Potassium (3.3-5.0) mmol/L Potassium (3.5-5.1) mmol/L POC Chloride (101-112) mmol/L Chloride (98-107) mmol/L Carbon Dioxide (21-32) mmol/L POC Total CO2 (24-31) mmol/L Anion Gap (3-11) POC Anion Gap (16-25) mmol/L POC BUN (7-18) mg/dl BUN (7-18) mg/dl Creatinine (0.6-1.2) mg/dl POC Creatinine (0.6-1.3) mg/dl Est Cr Clr Drug Dosing ml/min Est GFR ( Amer) ml/min Est GFR (Non-Af Amer) ml/min BUN/Creatinine Ratio (10-20) Glucose (70-99) mg/dl POC Glucose (other) (70-99) mg/dl Calcium (8.5-10.1) mg/dl POC Ioniz Calcium Stella (1.12-1.32) mmol/l Magnesium Total Bilirubin (0.2-1) mg/dl AST (15-37) U/L ALT (12-78) U/L Alkaline Phosphatase (45-117) U/L Troponin I < 0.015 (0-0.045) ng/ml Total Protein (6.4-8.2) gm/dl Albumin (3.4-5.0) gm/dl Globulin (2.5-4.0) gm/dl Albumin/Globulin Ratio (0.9-2) Lipase (73-393) U/L TSH (0.300-4.500) uIu/ml Specimen Hemolysis COVID-19 Eval Order Covid19 at [facility] SARS-CoV-2 (PCR) NEGATIVE (Negative) 04/16/21 04/16/21 04/16/21 Range/Units 20:45 20:35 20:35 WBC (4.8-10.8) K/uL RBC (4.2-5.4) M/uL Hgb (12.0-16.0) g/dL POC Hgb 14.6 (12.0-16.0) g/dl Hct (37-47) % POC Hct 43 (37-47) % MCV (80-100) fL MCH (25-34) pg MCHC (32-36) g/dL RDW Std Deviation (36.4-46.3) fL RDW Coeff of Rodrigo (11.5-14.5) % Plt Count (130-400) K/uL MPV (7.4-10.4) fL Immature Gran % (Auto) % Neut % (Auto) % Lymph % (Auto) % [place] % (Auto) % Eos % (Auto) % Baso % (Auto) % Neut # (Auto) (1.4-6.5) K/uL Lymph # (Auto) (1.2-3.4) K/uL [place] # (Auto) (0.11-0.59) K/uL Eos # (Auto) (0-0.5) K/uL Baso # (Auto) (0-0.2) K/uL Immature Gran # (Auto) (0.00-0.02) K/uL PT 10.8 (9.0-12.0) Seconds INR 1.1 (0.9-1.1) POC Sodium 138 (135-144) mmol/L Sodium 137 (136-145) mmol/L POC Potassium 4.3 (3.3-5.0) mmol/L Potassium 4.2 (3.5-5.1) mmol/L POC Chloride 102 (101-112) mmol/L Chloride 103 (98-107) mmol/L Carbon Dioxide 25 (21-32) mmol/L POC Total CO2 28 (24-31) mmol/L Anion Gap 10.0 (3-11) POC Anion Gap 13.0 L (16-25) mmol/L POC BUN 35 H (7-18) mg/dl BUN 33 H (7-18) mg/dl Creatinine 1.83 H (0.6-1.2) mg/dl POC Creatinine 2.2 H (0.6-1.3) mg/dl Est Cr Clr Drug Dosing 34.0 ml/min Est GFR ( Amer) 32.1 ml/min Est GFR (Non-Af Amer) 27.7 ml/min BUN/Creatinine Ratio 18.0 (10-20) Glucose 137 H (70-99) mg/dl POC Glucose (other) 135 H (70-99) mg/dl Calcium 8.7 (8.5-10.1) mg/dl POC Ioniz Calcium Stella 1.03 L (1.12-1.32) mmol/l Magnesium Total Bilirubin 0.6 (0.2-1) mg/dl AST 31 (15-37) U/L ALT 32 (12-78) U/L Alkaline Phosphatase 147 H (45-117) U/L Troponin I (0-0.045) ng/ml Total Protein 7.4 (6.4-8.2) gm/dl Albumin 3.2 L (3.4-5.0) gm/dl Globulin 4.2 H (2.5-4.0) gm/dl Albumin/Globulin Ratio 0.8 L (0.9-2) Lipase 132 (73-393) U/L TSH (0.300-4.500) uIu/ml Specimen Hemolysis COVID-19 Eval Order SARS-CoV-2 (PCR) (Negative) 04/16/21 Range/Units 20:35 WBC 4.94 (4.8-10.8) K/uL RBC 4.41 (4.2-5.4) M/uL Hgb 14.3 (12.0-16.0) g/dL POC Hgb (12.0-16.0) g/dl Hct 42.4 (37-47) % POC Hct (37-47) % MCV 96.1 (80-100) fL MCH 32.4 (25-34) pg MCHC 33.7 (32-36) g/dL RDW Std Deviation 50.1 H (36.4-46.3) fL RDW Coeff of Rodrigo 14.2 (11.5-14.5) % Plt Count 195 (130-400) K/uL MPV 9.2 (7.4-10.4) fL Immature Gran % (Auto) 0.2 % Neut % (Auto) 79.2 % Lymph % (Auto) 10.9 % [place] % (Auto) 9.1 % Eos % (Auto) 0.4 % Baso % (Auto) 0.2 % Neut # (Auto) 3.91 (1.4-6.5) K/uL Lymph # (Auto) 0.54 L (1.2-3.4) K/uL [place] # (Auto) 0.45 (0.11-0.59) K/uL Eos # (Auto) 0.02 (0-0.5) K/uL Baso # (Auto) 0.01 (0-0.2) K/uL Immature Gran # (Auto) 0.01 (0.00-0.02) K/uL PT (9.0-12.0) Seconds INR (0.9-1.1) POC Sodium (135-144) mmol/L Sodium (136-145) mmol/L POC Potassium (3.3-5.0) mmol/L Potassium (3.5-5.1) mmol/L POC Chloride (101-112) mmol/L Chloride (98-107) mmol/L Carbon Dioxide (21-32) mmol/L POC Total CO2 (24-31) mmol/L Anion Gap (3-11) POC Anion Gap (16-25) mmol/L POC BUN (7-18) mg/dl BUN (7-18) mg/dl Creatinine (0.6-1.2) mg/dl POC Creatinine (0.6-1.3) mg/dl Est Cr Clr Drug Dosing ml/min Est GFR ( Amer) ml/min Est GFR (Non-Af Amer) ml/min BUN/Creatinine Ratio (10-20) Glucose (70-99) mg/dl POC Glucose (other) (70-99) mg/dl Calcium (8.5-10.1) mg/dl POC Ioniz Calcium Stella (1.12-1.32) mmol/l Magnesium Total Bilirubin (0.2-1) mg/dl AST (15-37) U/L ALT (12-78) U/L Alkaline Phosphatase (45-117) U/L Troponin I (0-0.045) ng/ml Total Protein (6.4-8.2) gm/dl Albumin (3.4-5.0) gm/dl Globulin (2.5-4.0) gm/dl Albumin/Globulin Ratio (0.9-2) Lipase (73-393) U/L TSH (0.300-4.500) uIu/ml Specimen Hemolysis COVID-19 Eval Order SARS-CoV-2 (PCR) (Negative) Diagnostic Findings Abdomen/Pelvis CT 04/16/21 20:[address] WITHOUT CONTRAST CT DOSE: 1289.03 mGy.cm HISTORY: Acute bilateral flank pain with nausea and vomiting flank pain and lower abd pain w/ n/v TECHNIQUE: Multiaxial CT images of the abdomen and pelvis were performed without contrast. A dose lowering technique was utilized adhering to the principles of ALARA. COMPARISON STUDY: Chest radiograph of same day, CT abdomen pelvis 04/07/2021 FINDINGS: Mild cardiomegaly. Coronary artery calcifications. Trace right pleural effusion has decreased in size in the interval. Mild bibasilar atelectasis. No pneumatosis or pneumoperitoneum. The unenhanced spleen, pancreas, and adrenal glands are unremarkable. Cholecystectomy. Mild marginal nodularity of the liver suggestive of cirrhosis redemonstrated. Bilateral renal hypodensities suggestive of cysts are redemonstrated measuring up to 4.7 cm on the left. There are at least 5 nonobstructing calculi left kidney redemonstrated measuring up to approximately 7 mm. A right ureteral stent appears to be in satisfactory positioning. No right-sided renal or ureteral calculi are identified. Mild persistent right-sided hydroureteronephrosis. There is suggestion of persistent urothelial thickening of the right renal collecting system and right ureter. There is persistent perinephric and periureteral stranding. Unremarkable urinary bladder. Hysterectomy. No adnexal mass lesion. Extensive calcified plaque of the abdominal aorta and branch vessels. There is no adenopathy. Prior gastric bypass. There is no high-grade small bowel obstruction or bowel wall thickening. Moderate fecal retention of the rectum. Mild colonic diverticulosis. Mild perirectal stranding. Numerous stool-filled loops of small bowel. Several loops of small bowel are mildly dilated within the midabdomen measuring up to 3.2 cm proximal to the small bowel anastomosis. Noninflamed appendix. IMPRESSION: 1. Satisfactory positioning of the right ureteral stent with mild hydroureteronephrosis. Urothelial thickening of the right renal collecting system and ureter redemonstrated. No right-sided renal or ureteral calculi. 2. Left-sided nephrolithiasis. 3. Constipation with moderate fecal retention of the rectum. Additionally, there are numerous mildly dilated stool-filled loops of small bowel within the midabdomen proximal to the small bowel anastomosis. Findings may reflect decreased small bowel transit with developing low-grade small bowel obstruction considered less likely. Follow-up recommended. 4. Cirrhotic liver. 5. Cardiomegaly with trace right pleural effusion. 6. Additional findings as above. ACT 112: Negative or not required by law. The above report was generated using voice recognition software. It may contain grammatical, syntax or spelling errors. Electronically signed by: Jeffery Gresham M.D. 04/17/2021 7:49 AM Chest X-Ray 04/16/21 22:30 SINGLE VIEW CHEST CLINICAL HISTORY: Atypical chest pain. FINDINGS: An AP, portable, upright chest radiograph is compared to study dated 04/07/2021. The heart is enlarged. The pulmonary vasculature is noncongested. Chronic interstitial thickening is similar to previous. There is bibasilar scarring/atelectasis. No airspace consolidation or large pleural effusion is identified. No pneumothorax is seen. The skeletal structures are osteopenic. The bony thorax is grossly intact. Degenerative change is seen throughout the thoracic spine. IMPRESSION: Cardiomegaly with no acute cardiopulmonary abnormality. ACT 112: Negative or not required by law. Electronically signed by: Norberto Martinez M.D. 04/17/2021 7:25 AM KUB X-Ray 04/17/21 10:39 KUB HISTORY: Follow up study in a patient with constipation f/u constipation COMPARISON: CT abdomen pelvis 04/16/2021 FINDINGS: Cholecystectomy. A right ureteral stent appears to be in satisfactory positioning. No ureteral calculi identified. Left nephrolithiasis is better appreciated on the CT abdomen and pelvis study of same day. Surgical suture material of the epigastric and left midabdomen from prior gastric bypass. Moderate fecal retention. Mildly dilated loops of small bowel are again noted within the left midabdomen measuring up to approximately 4.2 cm transversely. No acute fracture. IMPRESSION: 1. Satisfactory positioning of the right ureteral stent. No ureteral calculi identified. 2. Left nephrolithiasis are better appreciated on the CT study of same day. 3. Moderate fecal retention. 4. Mildly dilated loops of small bowel within the left midabdomen are redemonstrated. Follow-up recommended to exclude a developing low-grade small bowel obstruction. ACT 112: Negative or not required by law. The above report was generated using voice recognition software. It may contain grammatical, syntax or spelling errors. Electronically signed by: Jeffery Gresham M.D. 04/17/2021 12:18 PM PG Care Time/CCT Total # of Minutes Spent Total Time Spent with Patient: Total time spent is greater than 50% in coordination of care (as documented) at patient's floor/unit and/or counseling patient: Coding Level of Care Code 55353 Subseq Hosp Care Lvl 3 Diagnoses Constipation K59.00 Exertional dyspnea R06.00 Cirrhosis K74.60 Hypertension I10 Hypertension type: essential hypertension GERD (gastroesophageal reflux disease) K21.9 Esophagitis presence: without esophagitis TIA (transient ischemic attack) G45.9 Acute renal insufficiency N28.9 Anticoagulant long-term use Z79.01 BMI 36.0-36.9,adult Z68.36 Permanent atrial fibrillation I48.21 Chronic diastolic congestive heart failure I50.32 Morbid obesity E66.01 ARIADNE (acute kidney injury) N17.9 (1) GERD (gastroesophageal reflux disease) Esophagitis presence: without esophagitis Qualified Code(s): K21.9 - Gastro- esophageal reflux disease without esophagitis (2) Hypertension Hypertension type: essential hypertension Qualified Code(s): I10 - Essential (primary) hypertension
[2021-04-17] MEDS: HYDROCODONE/ACETAMOPHEN 5/325MG TAB PO PRN (11:54)
--- NOTE | 2021-04-17 12:19 | XRay Report ---
KUB HISTORY: Follow up study in a patient with constipation f/u constipation COMPARISON: CT abdomen pelvis 04/16/2021 FINDINGS: Cholecystectomy. A right ureteral stent appears to be in satisfactory positioning. No urete ral calculi identified. Left nephrolithiasis is better appreciated on the CT abdomen and pelvis study of same day. Surgical suture material of the epigastric and left midabdomen from prior gastric bypas s. Moderate fecal retention. Mildly dilated loops of small bowel are again noted within the left mida bdomen measuring up to approximately 4.2 cm transversely. No acute fracture. IMPRESSION: 1. Satisfactory positioning of the right ureteral stent. No ureteral calculi identified. 2. Left nephrolithiasis are better appreciated on the CT study of same day. 3. Moderate fecal retention. 4. Mildly dilated loops of small bowel within the left midabdomen are redemonstrated. Follow-up recom mended to exclude a developing low-grade small bowel obstruction. ACT 112: Negative or not required by law. The above report was generated using voice recognition software. It may contain grammatical, syntax o r spelling errors. Electronically signed by: Jeffery Gresham M.D. 04/17/2021 12:18 PM
[2021-04-17] MEDS ORDERED: ACETAMINOPHEN 1000 MG/100 ML IV IV PRN (13:22)
[2021-04-17] MEDS ORDERED: SOD PHOSPHATE/SOD BIPHOSPHATE ENEMA 132 ML BTL PR PRN (13:23)
[2021-04-17 13:29] LABS: Appearance Urine Cloudy (Clear); Bilirubin Urine 1+ (Negative); Blood Urine 3+ (Negative); Color Urine Brown; Glucose Urine UA Negative (Negative); Ketones Urine Negative (Negative); Leukocyte Esterase Urine Negative (Negative); Nitrite Urine Negative (Negative); Protein Urine 3+ (Negative); Specific Gravity Urine 1.025 (1.000-1.030); Urobilinogen Urine Negative (Negative); pH Urine 5.5 (4.5-7.5)
[2021-04-17 13:35] LABS: Bacteria Urine 1+ (Negative); RBC Urine >30 /hpf (0-4)
--- NOTE | 2021-04-17 13:54 | Urology Consultation ---
Date of Consultation April 17, 2021 Assessment & Plan (1) Hematuria: (2) S/P ureteral stent placement: 71 year-old female patient, with multiple comorbidities, admitted with constipation with concern for SBO, nausea, and ARIADNE on CKD. -Patient s/p cystoscopy, right ureteroscopy, ureteral biopsies, and insertion of right ureteral stent on with Dr. Rowe on 04/13/21. -Plan of care reviewed with Will. -Reassured patient that hematuria can be expected post urologic procedure and with ureteral stent in place. -She is afebrile. -Imaging reviewed - satisfactory position of right ureteral stent. -Labs reviewed - white count stable, creatinine elevated above baseline at 1.60 (improved from prior 1.83). -Urine culture pending, await results and treat if indicated. -Recommend bowel regimen, general surgery also consulted. -Patient declines indwelling greenfield catheter at this time. -Monitor for continued retention with bladder scan q shift and PRN. Straight cath PRN if bladder scan >300 ml. -No acute urologic intervention required at this time. -Will continue to follow while inpatient. History of Present Illness Reason for Consultation: s/p stent placement, hematuria with clot Attending Physician: Garland Alegria MD History of Present Illness 71-year-old female with a past medical history of cirrhosis, hypertension, GERD, TIA, vertebral artery dissection, mesenteric fibrosis, atrial fibrillation on chronic anticoagulation, hx of ESBL UTI, diastolic heart failure, and other comorbidities listed below who presented to the emergency department with complaints of abdominal pain that started roughly one week ago. She also was experiencing intermittent nausea and vomiting. Imaging was performed which was consistent with constipation and concern for low-grade small bowel obstruction. She was admitted to medicine for further evaluation and treatment. Urology consulted for evaluation of hematuria with clots s/p stent placement. Patient known to [facility] urology, follows with Dr. Rowe. Follows with urology service for right-sided filling defect and right hydronephrosis. She recently underwent cystoscopy, right ureteronephroscopy, ureteral biopsies, and insertion of right ureteral stent with Dr. Rowe on 04/13/21. Pathology of areas biopsied - A. Ureter, right #1, biopsy: - Benign urothelium and submucosa with mild chronic inflammation - Negative for atypia and malignancy B. Ureter, right #2, biopsy: - Benign urothelium and submucosa with mild chronic inflammation - Negative for atypia and malignancy C. Ureter, right #3, biopsy: - Benign urothelium and submucosa with mild to moderate chronic inflammation - Negative for atypia and malignancy Chart review: Afebrile Wbc 4.24 Hgb 12.8 Creatinine 1.60 (previously 1.83) - preoperative creatinine 1.28. Urinalysis negative leukocytes, >30 rbc, 10-30 wbc, +1 bacteria, negative nitrates. Urine culture 04/07 with more than three types of organisms present, all high counts mixed probable skin luis. Repeat urine culture 04/17 pending. Patient placed on IV Ceftriaxone. Imaging - CT abd/pelvis without contrast - IMPRESSION: 1. Satisfactory positioning of the right ureteral stent with mild hydroureteronephrosis. Urothelial thickening of the right renal collecting system and ureter redemonstrated. No right-sided renal or ureteral calculi. 2. Left-sided nephrolithiasis. 3. Constipation with moderate fecal retention of the rectum. Additionally, there are numerous mildly dilated stool-filled loops of small bowel within the midabdomen proximal to the small bowel anastomosis. Findings may reflect decreased small bowel transit with developing low-grade small bowel obstruction considered less likely. Follow-up recommended. 4. Cirrhotic liver. 5. Cardiomegaly with trace right pleural effusion. KUB - IMPRESSION: 1. Satisfactory positioning of the right ureteral stent. No ureteral calculi identified. 2. Left nephrolithiasis are better appreciated on the CT study of same day. 3. Moderate fecal retention. 4. Mildly dilated loops of small bowel within the left midabdomen are re- demonstrated. Follow-up recommended to exclude a developing low-grade small bowel obstruction. Patient seen and examined at bedside. She is resting comfortably. Currently denies significant abdominal pain, does not "soreness" to abdomen. Denies flank pain. States she currently does not have nausea or vomiting. Has been NPO. States she believes she had a fever over the weekend, unsure of what her temperature was exactly. Currently denies fevers or chills. She states she has had gross hematuria intermittently since urology procedure. Denies dysuria. Patient recently was straight catheterized for for roughly 800 ml urine due inability to urinate. Per nursing, a small clot was noted. Patient reports she had bladder pressure prior to cath and was unable to initiate stream. Denied significant urgency/frequency prior to this. Tolerated catheterization well without difficulty. Patient is requesting not to have greenfield catheter at this time. Denies additional urologic concerns today. Allergies Allergy/AdvReac Type Severity Reaction Status Date / Time No Known Allergies Allergy Verified 04/16/21 22:14 Home Medications Medication Instructions Recorded Confirmed Type aspirin 81 mg tablet,delayed 81 mg PO QAM tab 09/02/19 04/16/21 History release apixaban 5 mg tablet 5 mg PO BID #180 tab 08/25/20 04/16/21 Rx atorvastatin 40 mg PO QAM 11/03/20 04/16/21 History fluoxetine 20 mg PO QAM 11/03/20 04/16/21 History fluoxetine 40 mg PO QAM 11/03/20 04/16/21 History diltiazem HCl 240 mg 240 mg PO QAM #90 cap 12/09/20 04/16/21 Rx capsule,extended release 24 hr nystatin 100,000 unit/gram topical 1 applic TOPICAL BID PRN #60 g 02/06/21 04/16/21 Rx powder cholecalciferol (vitamin D3) 25 2,000 unit PO QAM cap 02/07/21 04/16/21 History mcg (1,000 unit) capsule metoprolol succinate 50 mg 50 mg PO BID #180 tab 02/17/21 04/16/21 Rx tablet,extended release 24 hr pantoprazole 40 mg tablet,delayed 40 mg PO BID #90 tab 03/09/21 04/16/21 Rx release furosemide 80 mg PO QAM 03/24/21 04/16/21 History losartan 25 mg PO QAM 03/24/21 04/16/21 History ciprofloxacin HCl [Cipro] 500 mg PO BID #6 tab 04/13/21 04/16/21 Rx hydrocodone-acetaminophen 1 tab PO Q6H PRN #20 tab 04/13/21 04/16/21 Rx Patient History Medical History Abdominal pain, acute, epigastric Abnormal computed tomography of abdomen and pelvis Abnormal results of liver function studies Anemia HX OF - IRON INFUSION SEVERAL MONTHS AGO Atrial fibrillation Dx approx 5 years ago - follows w/ Dr. Brewer (s/p remote pulmonary venous ablation X 2, on Eliquis and multiple negative chronotropes Bilateral pleural effusion Cardiac murmur Mild-moderate mitral regurgitation on 12/2019 echo, mild TR and [place] Cholangitis Chronic diastolic congestive heart failure Cirrhosis Diaphoresis Dissection of vertebral artery Encounter for pre-operative examination Fecal incontinence GERD (gastroesophageal reflux disease) History of skin cancer & REMOVED History of sleep apnea HX SLEEP STUDY AND MACHINE, SINCE D/C'D - SLEEP APNEA RESOLVED Hydronephrosis of right kidney Hyperlipemia Hypertension Infection due to ESBL-producing Escherichia coli Kidney stones Lesion of ureter biopsy 12/29/2020 (pt unsure of results) Morbid obesity Pain in the abdomen Perineal itching, female PFO (patent foramen ovale) Suspected per records Recurrent pancreatitis HX OF / 3-4 YR AGO Scalp itch Skin abscess Skin irritation SOB (shortness of breath) on exertion TIA (transient ischemic attack) TIA (transient ischemic attack) 2018- [place] - no residual -NO ISSUES SINCE Tick bite Urinary tract infection Surgical History H/O: hysterectomy History of cardiac radiofrequency ablation D/T AFIB - PT REPORTS HAD 1 BUT MAYBE 2 - NOT SURE DATES ([place]) History of cardioversion multiple History of colonoscopy History of colostomy History of colostomy reversal History of cystoscopy and Right Ureteroscopy with stent. Following with Dr Rowe. 12/2020. History of esophagogastroduodenoscopy (EGD) History of tubal ligation History of umbilical hernia repair Hx of abdominal surgery FOR REMOVAL OF CYST - PT NOT SURE TYPE Hx of cholecystectomy Hx of laparoscopy Hx of removal of cyst Tubal ligation status Family History Grandmother Diabetes Hypertension Mother Heart disease Hypertension Grandfather Stomach cancer Hypertension Father Pancreatic cancer Hypertension Other No family history of adverse response to anesthesia Denies family history of Ovarian cancer Breast cancer Colorectal cancer Social History Smoking Status: Former smoker Second Hand Exposure: No; Hx Alcohol Use: No Hx Substance Use: No Preferred Language: Italian Communication Ability: Effective Visual Impairment: No Limitations Hearing Ability: Normal Finish Machine Tender Required: No Beliefs That Will Affect Care: None marital status: Current Living Situation: Spouse 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 status: retired 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 [employer] Other 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 Helps Us Care for You: 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 [employer]TTIME Feels Safe at Home: Yes Safety Concerns: Feels Safe At This Time Seatbelt Use: always Sunscreen Use: No Assistive Devices: None Review of Systems Constitutional: as per Subjective / HPI Eyes: no problem reported Ear, Nose, Mouth, Throat: + dizziness Respiratory: + dyspnea on exertion (chronic for patient); no cough Cardiovascular: + chest pain (Intermittent mid sternal discomfort); no edema Gastrointestinal: as per Subjective / HPI Genitourinary: as per Subjective / HPI Musculoskeletal: as per Subjective / HPI Neurologic: + dizziness (Intermittent) Endocrine: + fatigue Hematologic / Lymphatic: as per Subjective / HPI Physical Exam Constitutional: well developed and well nourished; no acute distress and not ill appearing ENMT: Ears: no external ear abnormality Nose: no external nose abnormality Neck: normal visual inspection and trachea midline Respiratory: normal respiratory effort and able to speak in complete sentences; no respiratory distress and no audible wheezes Cardiovascular: Extremities: no calf tenderness and no edema Gastrointestinal (Abdomen): Inspection/Auscultation: abdomen normal to inspection and + abdomen distended Percussion/Palpation: + abdomen tender (Diffuse tenderness to abdomen. ) and abdomen soft; no guarding Musculoskeletal: Moves all extremities without difficulty. Skin: No visible rashes, lesions, or wounds noted. Neurologic: moves all extremities and awake Psychiatric: Orientation: alert, oriented x 3 and cooperative Affect: euthymic affect Genitourinary: no CVA tenderness Results & Data ([facility]) Vital Signs (Past 12 Hours) Vital Signs Temp Pulse Resp BP BP Pulse Ox 04/17/21 07:59 36.4 C L 97 H 18 109/76 95 04/17/21 07:55 36.4 C L 88 18 101/68 95 PG Care Time/CCT Total # of Minutes Spent Total Time Spent with Patient: Total time spent is greater than 50% in coordination of care (as documented) at patient's floor/unit and/or counseling patient: Coding Level of Care Code 74154 Initial Inpt Care Lvl 2 Diagnoses Hematuria R31.9 S/P ureteral stent placement Z96.0
--- NOTE | 2021-04-17 14:01 | Surgery Consultation ---
Date of Consultation April 17, 2021 Assessment & Plan (1) Constipation: This is a 71y F with a PMH of afib on eliquis, morbid obesity, history of gastric bypass, who presents to the [facility] ED on 04/16/21 with nausea/vomiting and abdominal pain. She has a recent history of a R ureteral stent placed on 04/13 and her abdominal pain/n/v started one day after the procedure. She has not had a BM in 4 days which is unusual for her. She has not vomited since a couple days ago, but did report some nausea earlier today and her abd pain remains present and intermittent. She underwent a CT a/p and a KUB that showed mildly dilated loops of small bowel with concerns for developing low grade SBO. She also has moderate fecal retention. WBC 4. Patient's VSS. She points to her epigastric region and b/l lower abdomen when asked where her pain is. Her PSH includes a gastric bypass, abdominal surgery for bowel obstruction at [place], cholecystectomy, hysterectomy, and cysts removed from the abdomen. She did have an EGD with Dr. Foster earlier this year that showed chronic esophagitis with an intact GJ anastomosis that was friable and erythematous. On exam patient's abdomen is soft, she reports some discomfort to palpation in the bilateral lower abdomen. At this time would proceed with conservative management, bowel rest and IVF for hydration. No need for an NGT unless develops worsening nausea and + vomiting. No plans for surgical intervention at this time. as above. pt with multiple abdominal surgeries. feeling better now. no nausea or pain. would like something to drink. no bowel fx yet. agree with suppositories and enemas. will recheck KUB tomorrow. if still indications of early/psbo will obtain a sbft. may have ice chips tonight. will hold eliquis for now. History of Present Illness Attending Physician: Garland Alegria MD History of Present Illness This is a 71y F with a PMH of afib on eliquis, morbid obesity, history of gastric bypass, who presents to the [facility] ED on 04/16/21 with nausea/vomiting and abdominal pain. Patient had a R ureteral stent placed by Urology on 04/13 and she reports the day after she developed abdominal pain along with n/v. She reports her abdominal pain is in the epigastric region and bilateral lower abdomen. She is also concerned because she has not had a BM in 4 days. She reports passing flatus currently. In the ER she underwent a CT a/p that revealed constipation with moderate fecal retention of the rectum, along with numerous mildly dilated stool-filled loops of small bowel within the midabdomen proximal to the small bowel anastomosis concerning for slow gastric transit vs low grade SBO. KUB today showed mildly dilated loops of small bowel within the left midabdomen c/f low grade SBO. Patient's past surgical history includes a gastric bypass, abdominal surgery for bowel obstruction at [place], cholecystectomy, hysterectomy, and cysts removed from the abdomen. She states she feels about the same as when she came in for admission and that the pain comes and goes. She says this is the 2nd time she has been told she has an obstruction. Allergies Allergy/AdvReac Type Severity Reaction Status Date / Time No Known Allergies Allergy Verified 04/16/21 22:14 Home Medications Medication Instructions Recorded Confirmed Type aspirin 81 mg tablet,delayed 81 mg PO QAM tab 09/02/19 04/16/21 History release apixaban 5 mg tablet 5 mg PO BID #180 tab 08/25/20 04/16/21 Rx atorvastatin 40 mg PO QAM 11/03/20 04/16/21 History fluoxetine 20 mg PO QAM 11/03/20 04/16/21 History fluoxetine 40 mg PO QAM 11/03/20 04/16/21 History diltiazem HCl 240 mg 240 mg PO QAM #90 cap 12/09/20 04/16/21 Rx capsule,extended release 24 hr nystatin 100,000 unit/gram topical 1 applic TOPICAL BID PRN #60 g 02/06/21 04/16/21 Rx powder cholecalciferol (vitamin D3) 25 2,000 unit PO QAM cap 02/07/21 04/16/21 History mcg (1,000 unit) capsule metoprolol succinate 50 mg 50 mg PO BID #180 tab 02/17/21 04/16/21 Rx tablet,extended release 24 hr pantoprazole 40 mg tablet,delayed 40 mg PO BID #90 tab 03/09/21 04/16/21 Rx release furosemide 80 mg PO QAM 03/24/21 04/16/21 History losartan 25 mg PO QAM 03/24/21 04/16/21 History ciprofloxacin HCl [Cipro] 500 mg PO BID #6 tab 04/13/21 04/16/21 Rx hydrocodone-acetaminophen 1 tab PO Q6H PRN #20 tab 04/13/21 04/16/21 Rx Patient History Medical History Abdominal pain, acute, epigastric Abnormal computed tomography of abdomen and pelvis Abnormal results of liver function studies Anemia HX OF - IRON INFUSION SEVERAL MONTHS AGO Atrial fibrillation Dx approx 5 years ago - follows w/ Dr. Brewer (s/p remote pulmonary venous ablation X 2, on Eliquis and multiple negative chronotropes Bilateral pleural effusion Cardiac murmur Mild-moderate mitral regurgitation on 12/2019 echo, mild TR and [place] Cholangitis Chronic diastolic congestive heart failure Cirrhosis Diaphoresis Dissection of vertebral artery Encounter for pre-operative examination Fecal incontinence GERD (gastroesophageal reflux disease) History of skin cancer & REMOVED History of sleep apnea HX SLEEP STUDY AND MACHINE, SINCE D/C'D - SLEEP APNEA RESOLVED Hydronephrosis of right kidney Hyperlipemia Hypertension Infection due to ESBL-producing Escherichia coli Kidney stones Lesion of ureter biopsy 12/29/2020 (pt unsure of results) Morbid obesity Pain in the abdomen Perineal itching, female PFO (patent foramen ovale) Suspected per records Recurrent pancreatitis HX OF / 3-4 YR AGO Scalp itch Skin abscess Skin irritation SOB (shortness of breath) on exertion TIA (transient ischemic attack) TIA (transient ischemic attack) 2018- [place] - no residual -NO ISSUES SINCE Tick bite Urinary tract infection Surgical History H/O: hysterectomy History of cardiac radiofrequency ablation D/T AFIB - PT REPORTS HAD 1 BUT MAYBE 2 - NOT SURE DATES ([place]) History of cardioversion multiple History of colonoscopy History of colostomy History of colostomy reversal History of cystoscopy and Right Ureteroscopy with stent. Following with Dr Rowe. 12/2020. History of esophagogastroduodenoscopy (EGD) History of tubal ligation History of umbilical hernia repair Hx of abdominal surgery FOR REMOVAL OF CYST - PT NOT SURE TYPE Hx of cholecystectomy Hx of laparoscopy Hx of removal of cyst Tubal ligation status Family History Grandmother Diabetes Hypertension Mother Heart disease Hypertension Grandfather Stomach cancer Hypertension Father Pancreatic cancer Hypertension Other No family history of adverse response to anesthesia Denies family history of Ovarian cancer Breast cancer Colorectal cancer Social History Smoking Status: Former smoker Second Hand Exposure: No; Hx Alcohol Use: No Hx Substance Use: No Preferred Language: Maldivian Communication Ability: Effective Visual Impairment: No Limitations Hearing Ability: Normal Poultry Raiser Required: No Beliefs That Will Affect Care: None marital status: Current Living Situation: Spouse 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 status: 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 Other 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 Helps Us Care for 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 [employer] Feels Safe at Home: Yes Safety Concerns: Feels Safe At This Time Seatbelt Use: always Sunscreen Use: No Assistive Devices: None Review of Systems Constitutional: + fever (subjective fevers after stent, but not today) Respiratory: no dyspnea Cardiovascular: no chest pain Gastrointestinal: + abdominal pain, + nausea, + vomiting and + constipation; no bloating + flatus Physical Exam Physical Exam: awake Constitutional: + morbidly obese; no acute distress Respiratory: normal respiratory effort Gastrointestinal (Abdomen): Inspection/Auscultation: abdomen not distended Percussion/Palpation: + abdomen tender (generalized discomfort to palpation, mostly lower abdomen) and abdomen soft; no guarding Results & Data ([facility]) Vital Signs (Past 12 Hours) Vital Signs Temp Pulse Resp BP BP Pulse Ox 04/17/21 07:59 36.4 C L 97 H 18 109/76 95 04/17/21 07:55 36.4 C L 88 18 101/[address] WITHOUT CONTRAST CT DOSE: 1289.03 mGy.cm HISTORY: Acute bilateral flank pain with nausea and vomiting flank pain and lower abd pain w/ n/v TECHNIQUE: Multiaxial CT images of the abdomen and pelvis were performed without contrast. A dose lowering technique was utilized adhering to the principles of ALARA. COMPARISON STUDY: Chest radiograph of same day, CT abdomen pelvis 04/07/2021 FINDINGS: Mild cardiomegaly. Coronary artery calcifications. Trace right pleural effusion has decreased in size in the interval. Mild bibasilar atelectasis. No pneumatosis or pneumoperitoneum. The unenhanced spleen, pancreas, and adrenal glands are unremarkable. Cholecystectomy. Mild marginal nodularity of the liver suggestive of cirrhosis redemonstrated. Bilateral renal hypodensities suggestive of cysts are redemonstrated measuring up to 4.7 cm on the left. There are at least 5 nonobstructing calculi left kidney redemonstrated measuring up to approximately 7 mm. A right ureteral stent appears to be in satisfactory positioning. No right-sided renal or ureteral calculi are identified. Mild persistent right-sided hydroureteronephrosis. There is suggestion of persistent urothelial thickening of the right renal collecting system and right ureter. There is persistent perinephric and periureteral stranding. Unremarkable urinary bladder. Hysterectomy. No adnexal mass lesion. Extensive calcified plaque of the abdominal aorta and branch vessels. There is no adenopathy. Prior gastric bypass. There is no high-grade small bowel obstruction or bowel wall thickening. Moderate fecal retention of the rectum. Mild colonic diverticulosis. Mild perirectal stranding. Numerous stool-filled loops of small bowel. Several loops of small bowel are mildly dilated within the midabdomen measuring up to 3.2 cm proximal to the small bowel anastomosis. Noninflamed appendix. IMPRESSION: 1. Satisfactory positioning of the right ureteral stent with mild hydroureteronephrosis. Urothelial thickening of the right renal collecting system and ureter redemonstrated. No right-sided renal or ureteral calculi. 2. Left-sided nephrolithiasis. 3. Constipation with moderate fecal retention of the rectum. Additionally, there are numerous mildly dilated stool-filled loops of small bowel within the midabdomen proximal to the small bowel anastomosis. Findings may reflect decreased small bowel transit with developing low-grade small bowel obstruction considered less likely. Follow-up recommended. 4. Cirrhotic liver. 5. Cardiomegaly with trace right pleural effusion. 6. Additional findings as above. ACT 112: Negative or not required by law. The above report was generated using voice recognition software. It may contain grammatical, syntax or spelling errors. Electronically signed by: Jeffery Gresham M.D. 04/17/2021 7:49 AM KUB HISTORY: Follow up study in a patient with constipation f/u constipation COMPARISON: CT abdomen pelvis 04/16/2021 FINDINGS: Cholecystectomy. A right ureteral stent appears to be in satisfactory positioning. No ureteral calculi identified. Left nephrolithiasis is better appreciated on the CT abdomen and pelvis study of same day. Surgical suture material of the epigastric and left midabdomen from prior gastric bypass. Moderate fecal retention. Mildly dilated loops of small bowel are again noted within the left midabdomen measuring up to approximately 4.2 cm transversely. No acute fracture. IMPRESSION: 1. Satisfactory positioning of the right ureteral stent. No ureteral calculi identified. 2. Left nephrolithiasis are better appreciated on the CT study of same day. 3. Moderate fecal retention. 4. Mildly dilated loops of small bowel within the left midabdomen are redemonstrated. Follow-up recommended to exclude a developing low-grade small bowel obstruction. ACT 112: Negative or not required by law. The above report was generated using voice recognition software. It may contain grammatical, syntax or spelling errors. Electronically signed by: Jeffery Gresham M.D. 04/17/2021 12:18 PM PG Care Time/CCT Total # of Minutes Spent Total Time Spent with Patient: Total time spent is greater than 50% in coordination of care (as documented) at patient's floor/unit and/or counseling patient: Coding Level of Care Code 72261 Initial Inpt Care Lvl 3 Diagnoses Constipation K59.00
[2021-04-17] MEDS ORDERED: cefTRIAXone SODIUM 1,000 MG in DEXTROSE 5% 50 ML IV SCH (14:15)
[2021-04-17] MEDS: cefTRIAXone SODIUM 2,000 MG in DEXTROSE 5% 50 ML IV SCH (15:58)
[2021-04-17] MEDS ORDERED: bisacodyL 10 MG SUPP PR PRN (16:02)
--- NOTE | 2021-04-17 17:56 | Electrocardiogram Report ---
Test Reason : Blood Pressure : / mmHG Vent. Rate : 097 BPM Atrial Rate : 084 BPM P-R Int : 000 ms QRS Dur : 102 ms QT Int : 386 ms P-R-T Axes : 000 037 023 degrees QTc Int : 490 ms Atrial fibrillation Low voltage QRS Abnormal ECG When compared with ECG of 07-APR-2021 17:12, Criteria for Inferior infarct are no longer Present T wave amplitude has decreased in Lateral leads Confirmed by Christopher Monzon ([id number]) on 04/17/2021 5:56:13 PM Referred By: REFERRED SELF Confirmed By:Ramon Monzon
[2021-04-17] MEDS: PANTOprazole 40 MG in SYRINGE 0 ML IV SCH (21:17)
[2021-04-18] MEDS: HYDROCODONE/ACETAMOPHEN 5/325MG TAB PO PRN (00:30)
[2021-04-18 07:44] LABS: Basophils # (auto) 0.01 K/uL (0-0.2); Basophils % (auto) 0.2 %; Eosinophils # (auto) 0.08 K/uL (0-0.5); Eosinophils % (auto) 1.2 %; Hemoglobin 12.6 g/dL (12.0-16.0); Immature Granulocytes # (auto) 0.02 K/uL (0.00-0.02); Immature Granulocytes % (auto) 0.3 %; Lymphocytes # (auto) 0.53 K/uL (1.2-3.4); Mean Corpuscular Hgb Conc 32.3 g/dL (32-36); Mean Platelet Volume 9.1 fL (7.4-10.4); Monocytes # (auto) 0.53 K/uL (0.11-0.59); Neutrophils # (auto) 5.42 K/uL (1.4-6.5); Neutrophils % (auto) 82.3 %; Platelet Count 189 K/uL (130-400); RDW Coefficient of Variation 14.3 % (11.5-14.5); RDW Standard Deviation 52.3 fL (36.4-46.3); Red Blood Count 3.94 M/uL (4.2-5.4); White Blood Count 6.59 K/uL (4.8-10.8)
[2021-04-18 08:12] LABS: Albumin Level 2.8 gm/dl (3.4-5.0); BUN Creatinine Ratio 21.4 (10-20); Calcium 8.9 mg/dl (8.5-10.1); Creatinine Clr Calc Pharmacy 44.9 ml/min; Est GFR (African American) 45.1 ml/min; Est GFR (Non-African American) 38.9 ml/min; Potassium 4.3 mmol/L (3.5-5.1)
[2021-04-18 08:14] LABS: Albumin Globulin Ratio 0.8 (0.9-2); Bilirubin,Total 0.4 mg/dl (0.2-1); Globulin 3.6 gm/dl (2.5-4.0); Total Protein 6.4 gm/dl (6.4-8.2)
--- NOTE | 2021-04-18 08:50 | Surgery Progress Note ---
Date of Service April 18, 2021 Assessment & Plan (1) Abdominal pain: Patient feeling better today Denies abdominal pain/nausea/vomiting + Flatus and BM's Will evaluate KUB this AM, if improved can start liquids and ADAT Can continue prn suppositories/enema's as above. feeling better. +large bm overnight. KUB better. will start liquids and can advance as tolerated. Admission and Anticipated Discharge Date Admission Date: April 17, 2021 Subjective Patient says she feels like she turned a corner today. She denies nausea/vomiting or abdominal pain. She is starting to pass flatus and had a BM. She said she was able to void on her own. Physical Exam Physical Exam: awake/alert Constitutional: no acute distress Respiratory: normal respiratory effort Gastrointestinal (Abdomen): Inspection/Auscultation: abdomen not distended Percussion/Palpation: abdomen soft; abdomen nontender Results & Data ([facility]) Vital Signs (Past 12 Hours) Vital Signs Temp Pulse Resp BP Pulse Ox 04/17/21 21:16 36.6 C 90 18 107/71 99 PG Care Time/CCT Total # of Minutes Spent Total Time Spent with Patient: Total time spent is greater than 50% in coordination of care (as documented) at patient's floor/unit and/or counseling patient: Coding Level of Care Code 42489 Subseq Hosp Care Lvl 2 Diagnoses Abdominal pain R10.9 Abdominal location: unspecified location (1) Abdominal pain Abdominal location: unspecified location Qualified Code(s): R10.9 - Unspecified abdominal pain
--- NOTE | 2021-04-18 09:01 | Urology Progress Note ---
Date of Service April 18, 2021 Assessment & Plan (1) Hematuria: (2) S/P ureteral stent placement: 71 year-old female patient, with multiple comorbidities, admitted with constipation with concern for SBO, nausea, and ARIADNE on CKD. -Patient s/p cystoscopy, right ureteroscopy, ureteral biopsies, and insertion of right ureteral stent on with Dr. Rowe on 04/13/21. -Patient with improvement of pain, spontaneous voiding, and bowel function. -Reassured patient that hematuria can be expected post urologic procedure and with ureteral stent in place. -She remains afebrile. -Labs reviewed - white count stable, creatinine improved to 1.38 (previously 1.60). -Urine culture pending, await final and treat if indicated. -Recommend continued bowel regimen - general surgery also following. -Continue to monitor for retention with bladder scan q shift and PRN. -No acute urologic intervention required at this time. -Does have outpatient follow-up with urology service scheduled 05/02/21 for stent removal. -Expected clinical course reviewed with patient, all questions answered. Thank you for allowing us to participate in the acute care of Mrs. Dawkins. Please reconsult us with additional questions, concerns or changes in patient status. Admission and Anticipated Discharge Date Admission Date: April 17, 2021 Subjective Patient examined at bedside - she is alert, awake, comfortable. States her abdominal and flank pain have resolved. Currently denies nausea or vomiting. Denies fevers or chills. Has been urinating spontaneously without dysuria. Does report hematuria as expected with stent. Denies urinary frequency/urgency. Feel she empties her bladder fully now. Bladder scans reviewed - 72 ml last evening, 25 ml this AM. Patient did also have a BM, went for KUB this AM. Chart review: Afebrile Wbc 6.59 Hgb 12.6 Creatinine 1.38 (previously 1.60). Urine culture pending. Patient on IV Ceftriaxone. Denies additional urologic concerns today. Review of Systems Constitutional: as per Subjective / HPI; no fever and no chills Gastrointestinal: as per Subjective / HPI; no nausea and no vomiting Genitourinary: as per Subjective / HPI Physical Exam Constitutional: well developed and well nourished; no acute distress and not ill appearing Respiratory: normal respiratory effort and able to speak in complete sentences; no respiratory distress and no audible wheezes Gastrointestinal (Abdomen): Inspection/Auscultation: abdomen normal to inspection; abdomen not distended Percussion/Palpation: abdomen soft; abdomen nontender and no guarding Psychiatric: Orientation: alert, oriented x 3 and cooperative Affect: euthymic affect Genitourinary: no CVA tenderness Results & Data ([facility]) Vital Signs (Past 12 Hours) Vital Signs Temp Pulse Resp BP Pulse Ox 04/17/21 21:16 36.6 C 90 18 107/71 99 PG Care Time/CCT Total # of Minutes Spent Total Time Spent with Patient: Total time spent is greater than 50% in coordination of care (as documented) at patient's floor/unit and/or counseling patient: Coding Level of Care Code 10535 Subseq Hosp Care Lvl 2 Diagnoses Hematuria R31.9 S/P ureteral stent placement Z96.0
--- NOTE | 2021-04-18 09:10 | XRay Report ---
KUB HISTORY: Small bowel obstruction. Follow-up. COMPARISON: 04/17/2021. FINDINGS: The bowel gas pattern is unremarkable. There are no dilated loops of small bowel to suggest an obstruction. A right ureteral stent remains in good position. Stable left-sided nephrolithiasis. There is suture material in the left side of the abdomen. No ureteral calculi. Calcifications in the deep pelvis likely represent phleboliths. No pneumoperitoneum or pneumatosis. Moderate well-formed s tool seen within the colon. IMPRESSION: 1. Stable left-sided nephrolithiasis and a right ureteral stent. No ureteral calculi. 2. No dilated loops of bowel to suggest an obstruction. ACT 112: Negative or not required by law. Electronically signed by: Sky Gardner M.D. 04/18/2021 9:09 AM
[2021-04-18] MEDS ORDERED: SODIUM CHLORIDE 0.45 % 1,000 ML IV SCH (09:15)
--- NOTE | 2021-04-18 09:27 | Hospitalist Progress Note ---
Date of Service April 18, 2021 Assessment & Plan (1) Constipation: 71 yo F w extensive PMH including Afib, cirrhosis, TIA, GERD, HTN,HFpEF, morbid obesity, recently had a ureteral stent placed for hydronephrosis of r kidney. Had scope in past years. Hx gastric bypass 20+ years ago, also with hysterectomy and cholecystectomy. Initially with anion gap 12, now resolved. Changed to full admission Constipation --> SMALL BOWEL OBSTRUCTION * - CT A/P negative for infection but does note constipation with moderate fecal retention of the rectum. Additionally, there are numerous mildly dilated stool-filled loops of small bowel within the midabdomen proximal to the small bowel anastomosis. Findings may reflect decreased small bowel transit with developing low-grade small bowel obstruction considered less likely. Follow-up recommended. * Scheduled miralax BID, senna daily * --> Added dulcolax PO daily * 04/17 KUB:--> with Mildly dilated loops of small bowel within the left midabdomen are re-demonstrated. Follow-up recommended to exclude a developing low-grade small bowel obstruction * General surgery consulted -- appreciate recs * Made NPO after midnight. +BM evening 04/17 * Repeat KUB without evidence of obstruction * Liquid diet this morning -- advance as tolerated to low fiber diet * 1/2 NSS @80cc/hr for now * TSH wnl * Mag level wnl * Labs in AM ARIADNE on CKD, also possible UTI * also possibly with UTI, secondary to retention, possibly secondary to constipation * Cr normally 1.18- 1.23, 1.83 on admission-- most likely secondary to poor PO intake in addition to recent urologic procedure * Cr improving -- 1.6 and improved to 1.38 * Continuing to hold lasix 80mg daily and losartan 25mg (did get her doses this morning 04/17) * UA cloudy with +leuk est, WBC>epi, RBC and noted small amount of clot * --> Urology consulted s well given recent RIGHT ureteral stent * --> Placed on Ceftriaxone as above (possible Ecoli/quinolone resistance?) * --> suspect infection given UA and resolution of discomfort/symptoms since starting abx * fluids as above * Follow urine culture -- (has been on cipro...?resistance if + cx) * daily CMP S/P R Ureteral Stent placement * continue ciprofloxacin BID * monitor I/O --> required st cath for PVR >600 -- see above * Urology on consult GERD * cont pantoprazole BID -- placed on IV BID while NPO and will switch back AFib /chronic diastolic heart failure * stable cont diltiazem 240 PO daily, metoprolol. Holding lasix/losartan as above * eliquis 5mg PO BID held evening 04/17 in event for possible need for surgery --> will resume in AM if continues to be stable * No s/sx volume overload/sob/edema -- monitor IVF use cautiously as lasix on hold as above Hx TIA * cont statin, ASA Anx/Dep * cont fluoxetine 60 mg AM HTN * BP 124/90 * Metoprolol 50mg PO BID continued * Holding losartan/lasix as above * Continue to monitor Vit D deficiency * Low january. Continue supplementation 2000IU daily Elevated LFTs * -- suspect secondary to abx use/GI source. No elevation in Tbili. Hx cholecystectomy * also could be secondary to acetaminophen with pain medication -- will change to Alida * CTAP without evidence of infection. Did have constipation, cirrhosis * Monitor LFTs in AM DVT ppx: * on eliquis (on hold evening 04/17) -- to be resumed in AM Dispo: continued inpatient stay (2) Exertional dyspnea: (3) Cirrhosis: (4) Hypertension: (5) GERD (gastroesophageal reflux disease): (6) TIA (transient ischemic attack): (7) Acute renal insufficiency: (8) Anticoagulant long-term use: (9) BMI 36.0-36.9,adult: (10) Permanent atrial fibrillation: (11) Chronic diastolic congestive heart failure: (12) Morbid obesity: (13) ARIADNE (acute kidney injury): Admission and Anticipated Discharge Date Admission Date: April 17, 2021 Subjective Patient seen this morning. Feeling much better. Large BM last evening. Urinating without issue now that bowels moving. Tolerated diet without n/v. Will advance this evening and d/c fluids if keeping up with oral intake. No fever, chills, chest pain, shortness of breath, abdominal discomfort/flank pain, suprapubic discomfort or dysuria. Still with hematuria on occasion as expected with stents. Questions/concerns addressed at this time. Review of Systems Review of Systems: All systems reviewed & are unremarkable except as noted in HPI & below Physical Exam Physical Exam: Constitutional: obese, ,sitting up in bed, NAD ENT: EOMI, pupils equal and reactive bilaterally, no scleral icterus. mmm Cardiac: RRR, no murmurs, gallops or rubs. Normal S1, S2 Pulm: CTA BL, no wheezes, rhonchi, crackles or rubs, moving air well throughout both lungs Abd: soft, non-distended, non-tender to palpation. +BS throughout, no guarding or rigidity Extremities: 2+ peripheral pulses, no edema Neuro/psych: no focal deficits, moving all 4 limbs, A&Ox3, euthymic Results & Data Results & Data ([facility]) Vital Signs (Past 12 Hours) Vital Signs Temp Pulse Resp BP Pulse Ox 04/18/21 08:58 36.5 C 91 H 16 124/90 96 Laboratory Results 04/18/21 04/18/21 04/17/21 Range/Units 07:26 07:26 12:45 WBC 6.59 (4.8-10.8) K/uL RBC 3.94 L (4.2-5.4) M/uL Hgb 12.6 (12.0-16.0) g/dL Hct 39.0 (37-47) % MCV 99.0 (80-100) fL MCH 32.0 (25-34) pg MCHC 32.3 (32-36) g/dL RDW Std Deviation 52.3 H (36.4-46.3) fL RDW Coeff of Rodrigo 14.3 (11.5-14.5) % Plt Count 189 (130-400) K/uL MPV 9.1 (7.4-10.4) fL Immature Gran % (Auto) 0.3 % Neut % (Auto) 82.3 % Lymph % (Auto) 8.0 % [place] % (Auto) 8.0 % Eos % (Auto) 1.2 % Baso % (Auto) 0.2 % Neut # (Auto) 5.42 (1.4-6.5) K/uL Lymph # (Auto) 0.53 L (1.2-3.4) K/uL [place] # (Auto) 0.53 (0.11-0.59) K/uL Eos # (Auto) 0.08 (0-0.5) K/uL Baso # (Auto) 0.01 (0-0.2) K/uL Immature Gran # (Auto) 0.02 (0.00-0.02) K/uL Sodium 144 (136-145) mmol/L Potassium 4.3 D (3.5-5.1) mmol/L Chloride 111 H (98-107) mmol/L Carbon Dioxide 27 (21-32) mmol/L Anion Gap 6.0 (3-11) BUN 30 H (7-18) mg/dl Creatinine 1.38 H (0.6-1.2) mg/dl Est Cr Clr Drug Dosing 44.9 ml/min Est GFR ( Amer) 45.1 ml/min Est GFR (Non-Af Amer) 38.9 ml/min BUN/Creatinine Ratio 21.4 H (10-20) Glucose 97 (70-99) mg/dl Calcium 8.9 (8.5-10.1) mg/dl Magnesium (1.8-2.4) mg/dl Total Bilirubin 0.4 (0.2-1) mg/dl AST 107 H (15-37) U/L ALT 137 H (12-78) U/L Alkaline Phosphatase 463 H D (45-117) U/L Total Protein 6.4 (6.4-8.2) gm/dl Albumin 2.8 L (3.4-5.0) gm/dl Globulin 3.6 (2.5-4.0) gm/dl Albumin/Globulin Ratio 0.8 L (0.9-2) TSH (0.300-4.500) uIu/ml Urine Color Brown Urine Appearance Cloudy A (Clear) Urine pH 5.5 (4.5-7.5) Ur Specific [place] 1.025 (1.000-1.030) Urine Protein 3+ H (Negative) Urine Glucose (UA) Negative (Negative) Urine Ketones Negative (Negative) Urine Blood 3+ H (Negative) Urine Nitrite Negative (Negative) Urine Bilirubin 1+ H (Negative) Urine Urobilinogen Negative (Negative) Ur Leukocyte Esterase Negative (Negative) Urine RBC >30 H (0-4) /hpf Urine WBC 10-30 H (0-5) /hpf Ur Epithelial Cells 5-10 H (0-5) /lpf Urine Bacteria 1+ H (Negative) 04/17/21 04/17/21 04/17/21 Range/Units 09:33 09:33 09:33 WBC 4.24 L (4.8-10.8) K/uL RBC 3.98 L (4.2-5.4) M/uL Hgb 12.8 (12.0-16.0) g/dL Hct 39.4 (37-47) % MCV 99.0 (80-100) fL MCH 32.2 (25-34) pg MCHC 32.5 (32-36) g/dL RDW Std Deviation 51.5 H (36.4-46.3) fL RDW Coeff of Rodrigo 14.2 (11.5-14.5) % Plt Count 168 (130-400) K/uL MPV 8.9 (7.4-10.4) fL Immature Gran % (Auto) % Neut % (Auto) % Lymph % (Auto) % [place] % (Auto) % Eos % (Auto) % Baso % (Auto) % Neut # (Auto) (1.4-6.5) K/uL Lymph # (Auto) (1.2-3.4) K/uL [place] # (Auto) (0.11-0.59) K/uL Eos # (Auto) (0-0.5) K/uL Baso # (Auto) (0-0.2) K/uL Immature Gran # (Auto) (0.00-0.02) K/uL Sodium 141 (136-145) mmol/L Potassium 3.7 (3.5-5.1) mmol/L Chloride 109 H (98-107) mmol/L Carbon Dioxide 23 (21-32) mmol/L Anion Gap 9.0 (3-11) BUN 32 H (7-18) mg/dl Creatinine 1.60 H (0.6-1.2) mg/dl Est Cr Clr Drug Dosing 39.0 ml/min Est GFR ( Amer) 37.7 ml/min Est GFR (Non-Af Amer) 32.5 ml/min BUN/Creatinine Ratio 20.1 H (10-20) Glucose 166 H (70-99) mg/dl Calcium 8.4 L (8.5-10.1) mg/dl Magnesium 2.6 H (1.8-2.4) mg/dl Total Bilirubin (0.2-1) mg/dl AST (15-37) U/L ALT (12-78) U/L Alkaline Phosphatase (45-117) U/L Total Protein (6.4-8.2) gm/dl Albumin (3.4-5.0) gm/dl Globulin (2.5-4.0) gm/dl Albumin/Globulin Ratio (0.9-2) TSH 1.490 (0.300-4.500) uIu/ml Urine Color Urine Appearance (Clear) Urine pH (4.5-7.5) Ur Specific [place] (1.000-1.030) Urine Protein (Negative) Urine Glucose (UA) (Negative) Urine Ketones (Negative) Urine Blood (Negative) Urine Nitrite (Negative) Urine Bilirubin (Negative) Urine Urobilinogen (Negative) Ur Leukocyte Esterase (Negative) Urine RBC (0-4) /hpf Urine WBC (0-5) /hpf Ur Epithelial Cells (0-5) /lpf Urine Bacteria (Negative) Diagnostic Findings KUB X-Ray 04/17/21 10:39 KUB HISTORY: Follow up study in a patient with constipation f/u constipation COMPARISON: CT abdomen pelvis 04/16/2021 FINDINGS: Cholecystectomy. A right ureteral stent appears to be in satisfactory positioning. No ureteral calculi identified. Left nephrolithiasis is better appreciated on the CT abdomen and pelvis study of same day. Surgical suture material of the epigastric and left midabdomen from prior gastric bypass. Moderate fecal retention. Mildly dilated loops of small bowel are again noted within the left midabdomen measuring up to approximately 4.2 cm transversely. No acute fracture. IMPRESSION: 1. Satisfactory positioning of the right ureteral stent. No ureteral calculi identified. 2. Left nephrolithiasis are better appreciated on the CT study of same day. 3. Moderate fecal retention. 4. Mildly dilated loops of small bowel within the left midabdomen are redemonstrated. Follow-up recommended to exclude a developing low-grade small bowel obstruction. ACT 112: Negative or not required by law. The above report was generated using voice recognition software. It may contain grammatical, syntax or spelling errors. Electronically signed by: Jeffery Gresham M.D. 04/17/2021 12:18 PM KUB X-Ray 04/18/21 00:00 KUB HISTORY: Small bowel obstruction. Follow-up. COMPARISON: 04/17/2021. FINDINGS: The bowel gas pattern is unremarkable. There are no dilated loops of small bowel to suggest an obstruction. A right ureteral stent remains in good position. Stable left-sided nephrolithiasis. There is suture material in the left side of the abdomen. No ureteral calculi. Calcifications in the deep pelvis likely represent phleboliths. No pneumoperitoneum or pneumatosis. Moderate well- formed stool seen within the colon. IMPRESSION: 1. Stable left-sided nephrolithiasis and a right ureteral stent. No ureteral calculi. 2. No dilated loops of bowel to suggest an obstruction. ACT 112: Negative or not required by law. Electronically signed by: Sky Gardner M.D. 04/18/2021 9:09 AM PG Care Time/CCT Total # of Minutes Spent Total Time Spent with Patient: Total time spent is greater than 50% in coordination of care (as documented) at patient's floor/unit and/or counseling patient: Coding Level of Care Code 44842 Subseq Hosp Care Lvl 3 Diagnoses Constipation K59.00 Exertional dyspnea R06.00 Cirrhosis K74.60 Hypertension I10 Hypertension type: essential hypertension GERD (gastroesophageal reflux disease) K21.9 Esophagitis presence: without esophagitis TIA (transient ischemic attack) G45.9 Acute renal insufficiency N28.9 Anticoagulant long-term use Z79.01 BMI 36.0-36.9,adult Z68.36 Permanent atrial fibrillation I48.21 Chronic diastolic congestive heart failure I50.32 Morbid obesity E66.01 ARIADNE (acute kidney injury) N17.9 (1) GERD (gastroesophageal reflux disease) Esophagitis presence: without esophagitis Qualified Code(s): K21.9 - Gastro- esophageal reflux disease without esophagitis (2) Hypertension Hypertension type: essential hypertension Qualified Code(s): I10 - Essential (primary) hypertension
[2021-04-18] MEDS: CIPROFLOXACIN 500 MG TAB PO SCH ×2 (10:22→20:15)
[2021-04-18] MEDS: ASPIRIN 81 MG ECTAB PO SCH (10:23)
[2021-04-18] MEDS: dilTIAZem HCL 240 MG CAPCR PO SCH (10:23)
[2021-04-18] MEDS: FLUoxetine HCL 20 MG CAP PO SCH (10:24)
[2021-04-18] MEDS: METOPROLOL SUCC 50MG EXT REL TAB PO SCH ×2 (10:24→20:15)
[2021-04-18] MEDS: PANTOprazole 40 MG in SYRINGE 0 ML IV SCH (10:25)
[2021-04-18] MEDS: cefTRIAXone SODIUM 2,000 MG in DEXTROSE 5% 50 ML IV SCH (10:27)
[2021-04-18] MEDS ORDERED: oxyCODONE HCL IR 5 MG TAB (IMMEDIATE RELEASE) PO PRN (11:07)
[2021-04-18] MEDS ORDERED: LACTATED RINGER'S 1,000 ML IV SCH (18:30)
[2021-04-18] MEDS: PANTOprazole 40 MG TAB PO SCH (20:14)
[2021-04-18] MEDS: APIXABAN 5 MG TABLET PO SCH (20:14)
[2021-04-19 05:38] LABS: Hematocrit (blood only) 36.5 % (37-47); Mean Corpuscular Hemoglobin 31.8 pg (25-34); Mean Corpuscular Hgb Conc 32.9 g/dL (32-36); Mean Corpuscular Volume 96.8 fL (80-100); Mean Platelet Volume 8.9 fL (7.4-10.4); Platelet Count 190 K/uL (130-400); RDW Coefficient of Variation 14.3 % (11.5-14.5); RDW Standard Deviation 51.2 fL (36.4-46.3); Red Blood Count 3.77 M/uL (4.2-5.4); White Blood Count 3.78 K/uL (4.8-10.8)
[2021-04-19 05:55] LABS: Albumin Level 2.7 gm/dl (3.4-5.0); BUN Creatinine Ratio 18.7 (10-20); Bilirubin Direct 0.1 mg/dl (0-0.2); Calcium 8.3 mg/dl (8.5-10.1); Est GFR (African American) 55.1 ml/min; Est GFR (Non-African American) 47.5 ml/min; Potassium 4.2 mmol/L (3.5-5.1)
[2021-04-19 05:58] LABS: Bilirubin,Total 0.4 mg/dl (0.2-1); Total Protein 6.1 gm/dl (6.4-8.2)
[2021-04-19] MEDS: CIPROFLOXACIN 500 MG TAB PO SCH (08:04)
[2021-04-19] MEDS: METOPROLOL SUCC 50MG EXT REL TAB PO SCH (08:04)
[2021-04-19] MEDS: APIXABAN 5 MG TABLET PO SCH (08:05)
[2021-04-19] MEDS: FLUoxetine HCL 20 MG CAP PO SCH (08:06)
[2021-04-19] MEDS: ASPIRIN 81 MG ECTAB PO SCH (08:06)
[2021-04-19] MEDS: PANTOprazole 40 MG TAB PO SCH (08:06)
[2021-04-19] MEDS: dilTIAZem HCL 240 MG CAPCR PO SCH (08:06)
--- NOTE | 2021-04-19 08:26 | Surgery Progress Note ---
Date of Service April 19, 2021 Assessment & Plan (1) Abdominal pain: Here with concern of SBO and constipation KUB yesterday revealed non obstructive bowel gas pattern Diet has been advanced to full liquids which she is tolerating without abdominal complaints + flatus/BMs Okay to advance diet this AM to regular If tolerates she may be discharged today from our standpoint as above. looks good. no pain or nausea. +more bm's. advance diet. discharge planning. Admission and Anticipated Discharge Date Admission Date: April 17, 2021 Subjective Patient states she is feeling well. Passing flatus and BM's. Tolerating a liquid diet, no nausea/vomiting. Hoping to go home today. Physical Exam Physical Exam: awake/alert Constitutional: well developed and well nourished; no acute distress Gastrointestinal (Abdomen): Percussion/Palpation: abdomen soft; abdomen nontender Results & Data ([facility]) Vital Signs (Past 12 Hours) Vital Signs Temp Pulse Resp BP Pulse Ox 04/19/21 07:34 36.7 C 98 H 16 123/81 96 04/18/21 23:17 36.6 C 85 16 114/78 96 PG Care Time/CCT Total # of Minutes Spent Total Time Spent with Patient: Total time spent is greater than 50% in script coordinator rdination of care (as documented) at patient's floor/unit and/or counseling patient: Coding Level of Care Code 46856 Subseq Hosp Care Lvl 2 Diagnoses Abdominal pain R10.9 Abdominal location: unspecified location (1) Abdominal pain Abdominal location: unspecified location Qualified Code(s): R10.9 - Unspecified abdominal pain
[2021-04-19] MEDS: ATORVASTATIN 40 MG TAB PO SCH (09:08)
[2021-04-19] MEDS: CHOLECALCIFEROL 1,000 UNITS 25 MCG TAB PO SCH (09:08)
--- NOTE | 2021-04-19 09:48 | Hospitalist Progress Note ---
Date of Service April 19, 2021 Assessment & Plan (1) Constipation: 71 yo F w extensive PMH including Afib, cirrhosis, TIA, GERD, HTN,HFpEF, morbid obesity, recently had a ureteral stent placed for hydronephrosis of r kidney. Had scope in past years. Hx gastric bypass 20+ years ago, also with hysterectomy and cholecystectomy. Initially with anion gap 12, now resolved. Changed to full admission Constipation --> SMALL BOWEL OBSTRUCTION * - CT A/P negative for infection but does note constipation with moderate fecal retention of the rectum. Additionally, there are numerous mildly dilated stool-filled loops of small bowel within the midabdomen proximal to the small bowel anastomosis. Findings may reflect decreased small bowel transit with developing low-grade small bowel obstruction considered less likely. Follow-up recommended. * Scheduled miralax BID, senna daily * --> Added dulcolax PO daily * 04/17 KUB:--> with Mildly dilated loops of small bowel within the left midabdomen are re-demonstrated. Follow-up recommended to exclude a developing low-grade small bowel obstruction * General surgery consulted -- appreciate recs * Made NPO after midnight. +BM evening 04/17 * Repeat KUB without evidence of obstruction * Liquid diet this morning -- advance as tolerated to low fiber diet * 1/2 NSS @80cc/hr for now * TSH wnl * Mag level wnl * Labs in AM ARIADNE on CKD, also possible UTI * also possibly with UTI, secondary to retention, possibly secondary to constipation * Cr normally 1.18- 1.23, 1.83 on admission-- most likely secondary to poor PO intake in addition to recent urologic procedure * Cr improving -- 1.6 and improved to 1.38 * Continuing to hold lasix 80mg daily and losartan 25mg (did get her doses this morning 04/17) * UA cloudy with +leuk est, WBC>epi, RBC and noted small amount of clot * --> Urology consulted s well given recent RIGHT ureteral stent * --> Placed on Ceftriaxone as above (possible Ecoli/quinolone resistance?) * --> suspect infection given UA and resolution of discomfort/symptoms since starting abx * fluids as above * Follow urine culture -- (has been on cipro...?resistance if + cx) * daily CMP S/P R Ureteral Stent placement * continue ciprofloxacin BID * monitor I/O --> required st cath for PVR >600 -- see above * Urology on consult GERD * cont pantoprazole BID -- placed on IV BID while NPO and will switch back AFib /chronic diastolic heart failure * stable cont diltiazem 240 PO daily, metoprolol. Holding lasix/losartan as above * eliquis 5mg PO BID held evening 04/17 in event for possible need for surgery --> will resume in AM if continues to be stable * No s/sx volume overload/sob/edema -- monitor IVF use cautiously as lasix on hold as above Hx TIA * cont statin, ASA Anx/Dep * cont fluoxetine 60 mg AM HTN * BP 124/90 * Metoprolol 50mg PO BID continued * Holding losartan/lasix as above * Continue to monitor Vit D deficiency * Low january. Continue supplementation 2000IU daily Elevated LFTs * -- suspect secondary to abx use/GI source. No elevation in Tbili. Hx cholecystectomy * also could be secondary to acetaminophen with pain medication -- will change to Alida * CTAP without evidence of infection. Did have constipation, cirrhosis * Monitor LFTs in AM DVT ppx: * on eliquis (on hold evening 04/17) -- to be resumed in AM Dispo: continued inpatient stay (2) Exertional dyspnea: (3) Cirrhosis: (4) Hypertension: (5) GERD (gastroesophageal reflux disease): (6) TIA (transient ischemic attack): (7) Acute renal insufficiency: (8) Anticoagulant long-term use: (9) BMI 36.0-36.9,adult: (10) Permanent atrial fibrillation: (11) Chronic diastolic congestive heart failure: (12) Morbid obesity: (13) ARIADNE (acute kidney injury): Admission and Anticipated Discharge Date Admission Date: April 17, 2021 Results & Data Results & Data ([facility]) Vital Signs (Past 12 Hours) Vital Signs Temp Pulse Resp BP Pulse Ox 04/19/21 07:34 36.7 C 98 H 16 123/81 96 04/18/21 23:17 36.6 C 85 16 114/78 96 Laboratory Results 04/19/21 04/19/21 04/19/21 Range/Units 05:22 05:22 05:22 WBC (4.8-10.8) K/uL RBC (4.2-5.4) M/uL Hgb (12.0-16.0) g/dL Hct (37-47) % MCV (80-100) fL MCH (25-34) pg MCHC (32-36) g/dL RDW Std Deviation (36.4-46.3) fL RDW Coeff of Rodrigo (11.5-14.5) % Plt Count (130-400) K/uL MPV (7.4-10.4) fL Sodium (136-145) mmol/L Potassium (3.5-5.1) mmol/L Chloride (98-107) mmol/L Carbon Dioxide (21-32) mmol/L Anion Gap (3-11) BUN (7-18) mg/dl Creatinine (0.6-1.2) mg/dl Est Cr Clr Drug Dosing ml/min Est GFR ( Amer) ml/min Est GFR (Non-Af Amer) ml/min BUN/Creatinine Ratio (10-20) Glucose (70-99) mg/dl Calcium (8.5-10.1) mg/dl Total Bilirubin (0.2-1) mg/dl Direct Bilirubin (0-0.2) mg/dl GGT Pending AST (15-37) U/L ALT (12-78) U/L Alkaline Phosphatase (45-117) U/L Total Protein (6.4-8.2) gm/dl Albumin (3.4-5.0) gm/dl 25-OH Vitamin D Total Pending Anti-Mitochondrial Ab Pending CMV IgM Ab Pending CMV IgG Ab/TORCH Pending 04/19/21 04/19/21 Range/Units 05:22 05:22 WBC 3.78 L (4.8-10.8) K/uL RBC 3.77 L (4.2-5.4) M/uL Hgb 12.0 (12.0-16.0) g/dL Hct 36.5 L (37-47) % MCV 96.8 (80-100) fL MCH 31.8 (25-34) pg MCHC 32.9 (32-36) g/dL RDW Std Deviation 51.2 H (36.4-46.3) fL RDW Coeff of Rodrigo 14.3 (11.5-14.5) % Plt Count 190 (130-400) K/uL MPV 8.9 (7.4-10.4) fL Sodium 144 (136-145) mmol/L Potassium 4.2 (3.5-5.1) mmol/L Chloride 112 H (98-107) mmol/L Carbon Dioxide 26 (21-32) mmol/L Anion Gap 6.0 (3-11) BUN 22 H (7-18) mg/dl Creatinine 1.17 (0.6-1.2) mg/dl Est Cr Clr Drug Dosing 53.0 ml/min Est GFR ( Amer) 55.1 ml/min Est GFR (Non-Af Amer) 47.5 ml/min BUN/Creatinine Ratio 18.7 (10-20) Glucose 90 (70-99) mg/dl Calcium 8.3 L (8.5-10.1) mg/dl Total Bilirubin 0.4 (0.2-1) mg/dl Direct Bilirubin 0.1 (0-0.2) mg/dl GGT AST 51 H (15-37) U/L ALT 92 H (12-78) U/L Alkaline Phosphatase 361 H (45-117) U/L Total Protein 6.1 L (6.4-8.2) gm/dl Albumin 2.7 L (3.4-5.0) gm/dl 25-OH Vitamin D Total Anti-Mitochondrial Ab CMV IgM Ab CMV IgG Ab/TORCH PG Care Time/CCT Total # of Minutes Spent Total Time Spent with Patient: Total time spent is greater than 50% in coordination of care (as documented) at patient's floor/unit and/or counseling patient: Coding Diagnoses Constipation K59.00 Exertional dyspnea R06.00 Cirrhosis K74.60 Hypertension I10 Hypertension type: essential hypertension GERD (gastroesophageal reflux disease) K21.9 Esophagitis presence: without esophagitis TIA (transient ischemic attack) G45.9 Acute renal insufficiency N28.9 Anticoagulant long-term use Z79.01 BMI 36.0-36.9,adult Z68.36 Permanent atrial fibrillation I48.21 Chronic diastolic congestive heart failure I50.32 Morbid obesity E66.01 ARIADNE (acute kidney injury) N17.9 (1) Hypertension Hypertension type: essential hypertension Qualified Code(s): I10 - Essential (primary) hypertension (2) GERD (gastroesophageal reflux disease) Esophagitis presence: without esophagitis Qualified Code(s): K21.9 - Gastro- esophageal reflux disease without esophagitis
--- NOTE | 2021-04-19 11:35 | Discharge Summary ---
Date of Service April 19, 2021 Admission HPI Per Admitting Provider 71-year-old female with a past medical history of cirrhosis, hypertension, GERD, TIA, vertebral artery dissection, mesenteric fibrosis, PAF, ESBL UTI, diastolic heart failure who presents to the emergency department for week of ongoing abdominal pain. She states that earlier in the week she had acute abdominal pain and was seen by urology who placed a ureteral stent on the right side for an infection stones. She states that since then she has continued to have nausea and some episodes of nonbilious nonbloody vomiting. She states she also has not had an bowel movement in approximately 4 days. She describes her pain as being in the anterior lower abdomen as a from her uterus. She is menopausal and denies any vaginal bleeding but says she has had hematuria. She denies any melanotic stools or diarrhea. She denies any fevers or chills at home. She does attest to having dyspnea on exertion but is been worsening over the last few months particularly when she is going up steps. Primary Care Provider: Christopher Guevara MD Admission Exam Per Admitting Provider Constitutional: obese, in no apparent distress,laying comfortably in bed. Eyes: EOMI, pupils equal and reactive bilaterally, no scleral icterus Cardiac: RRR, no murmurs, gallops or rubs. Normal S1, S2 Pulm: CTA BL, no wheezes, rhonchi, crackles or rubs, moving air well throughout both lungs Abd: soft, distended, TTP in right and left lower quadrants, normal bowel sounds, no rebound or guarding Extremities: 2+ peripheral pulses, no edema Neuro: no focal deficits, moving all 4 limbs, A&Ox3 Principal Diagnosis partial SBO, constipation Discharge Exam Constitutional: well developed, well nourished, morbidly obese, ,sitting up in chair, NAD EENT: EOMI, pupils equal and reactive bilaterally, no scleral icterus. mmm Cardiac: irregularly irregular, no murmurs, gallops or rubs. Normal S1, S2, cap refill <3 seconds, no edema Pulm: CTAB, no wheezes, rhonchi, crackles or rubs, not tachypneic, no cough. on room air Abd: soft, non-distended, non-tender to palpation. +BS throughout, no guarding or rigidity Extremities: 2+ peripheral pulses, no edema, moves all extremities, walks without assistive device Skin: warm, dry Neuro: no focal deficits, moving all 4 limbs Psych: A&Ox3, euthymic Discharge Data Allergies Allergy/AdvReac Type Severity Reaction Status Date / Time No Known Allergies Allergy Verified 04/16/21 22:14 Consultations 04/16/21 22:52 ED Decision to Admit Stat 04/17/21 12:19 Consult General Surgery Routine 04/17/21 13:21 Consult Urology Routine Ordered Studies 04/16/21 20:58 CT abd pelvis wo con Urgent 04/17 KUB 04/18 KUB Hospital Course (1) Constipation: 71 yo F w extensive PMH including Afib, cirrhosis, TIA, GERD, HTN, HFpEF, morbid obesity, recently had a ureteral stent placed for hydronephrosis of r kidney. Had EGD in past year which showed chronic inflammation. Hx gastric bypass , also with hysterectomy and cholecystectomy. Lengthy work-up in past for chronic abd pain. She does have a history of mesenteric fibrosis and it is thought that much of her typical pain is related to adhesive disease from prior surgeries. Recs by GI in past locally for addition of Metamucil however patient did not take this. * Admitted for constipation as she had not moved her bowels for several days. * Was provided bowel regimen and full liquid diet and then developed worsening abdominal pain, urinary retention, and lack of flatus/BS * CTAP on admission with numerous mildly dilated stool-filled loops of small bowel within the midabdomen proximal to the small bowel anastomosis. Findings may reflect decreased small bowel transit with developing low-grade small bowel obstruction considered less likely. Follow-up recommended. * Made NPO * General surgery consulted * Supportive care, pain control, IVF for dehydration. (Lasix held for ARIADNE and instructed patient to f/u with cards about need for this continuous vs prn weight gain/edema and to prevent constipation) * KUB obtained which showed mildly dilated loops of small bowel within the left midabdomen , possible development of SBO * Enema with +BM * Repeat KUB with resolution and tolerated liquid diet without issue, no pain/n/v, and was advanced to low fiber to be continued for 2 weeks post-d/c. * Discussed with GI locally and they feel she should continue to undergo work-up for chronic issues with [facility] as previously scheduled for May but would be happy to see sooner if needed * Instructed to continue with bowel regimen at home until return to normal and then could consider fiber/bulking agent but ensure she is drinking plenty of water to ensure efficacy * No pain, eating well, moving bowels prior to d/c Cirrhosis/LFT elevation * -- unknown etiology, could be from obesity. but does have hx mesenteric fibrosis. ?PBC or other liver pathology. * Imaging c/w cirrhosis. RUQ US on 04/08 with cirrhosis. Hx cholecystectomy * LFTs elevated while inpatient (acute rise possible from GI source, Tbili wnl and chronic elevations) but did trend down prior to d/c but still elevated * Recommended continuing prior scheduled outpt f/u with [facility] in May. +/- heme/onc * ALEXANDRU+ in past, felt to be non-contributory. AMA pending prior to d/c as well as GGT Acute Kidney Injury on CKD III * also possibly with UTI secondary to retention but had been on Cipro abx for recent stent placement. Pathology negative for malignancy * Urology consulted for hematuria -- expected and to f/u as previously scheduled * Cr typically 1.1-1.2 and was elevated to 1.83 on admission secondary to poor PO intake and recent urological procedure * UA appeared infected, but cx NEGATIVE. Ceftriaxone d/c'd as was placed in case of resistance and suprapubic discomfort, but could have been from constipation/retention * Completed course of cipro while inpatient, no further doses required at d/c. WBC wnl. Afebrile * IVF provided and lasix/losartan held * Cr improved to 1.17 prior to d/c * Given labs for repeat BMP in 3 days S/P R Ureteral Stent placement, Hematuria * continue ciprofloxacin BID, completed while inpatient * monitor I/O --> required st cath for PVR >600 x1. * blood counts stable, expected hematuria following stent per urology consultation * She does have multiple stable left sided calculi as well, largest 7mm with b/l renal cysts measuring up to 4.7cm on the left --> rec outpt f/u already scheduled GERD * cont'd pantoprazole BID but utilized IV BID while NPO Permanent Atrial fibrillation/chronic diastolic heart failure * stable. * cont diltiazem 240 PO daily, metoprolol, Eliquis 5mg BID as above * Held lasix/losartan for above ARIADNE/dehydration * Resumed losartan at d/c * Instructed to resume lasix 04/20 but instructed to discuss with cardiology about continued use and monitoring her weights at home and utilizing prn * She had been 235lb on admission. --> Of note, patient stated she did not weigh herself regularly at home but review of chart that she follows with CHF clinic and dry weight 235lb. She was 233 lb at d/c and continued to hold her lasix through tomorrow. Per CHF clinic note, if weight is <230lb patient should drop to 40mg of Lasix daily * --> Messaged Valery Perkins from CHF program about calling patient tomorrow to discuss continued recommendations to prevent readmission and clarify diuretic dosing instructions Hx TIA * cont statin, ASA Anx/Dep * cont fluoxetine 60 mg AM HTN * BP 123/81 * Metoprolol 50mg PO BID continued * losartan/Lasix as above Vit D deficiency * Low january. Repeat 35. Continue supplementation 2000IU daily DVT ppx: * Eliquis Patient stated she felt better. Tolerated diet. No pain, no fever, no n/v. States she is eager for discharge. (2) Cirrhosis: (3) Hypertension: (4) GERD (gastroesophageal reflux disease): (5) TIA (transient ischemic attack): (6) Acute renal insufficiency: (7) Anticoagulant long-term use: (8) BMI 36.0-36.9,adult: (9) Permanent atrial fibrillation: (10) Chronic diastolic congestive heart failure: (11) Morbid obesity: (12) ARIADNE (acute kidney injury): Total Time Total Time Spent Total Time Spent (In Minutes): 70 Discharge Plan Discharge Items Patient Disposition: Home - Self-Care Reason For Visit: CONSTIPATION, ABD PAIN Discharge Diagnosis: Constipation, possible small bowel obstruction Goals: You have been hospitalized for an acute medical problem. During your stay at [facility], we have made an effort to correct the problem that brought you to the hospital while keeping you as comfortable as possible. Medications were used to bring your condition under control and your discharge instructions will include directions for any medications you should take after leaving the hospital. Please make sure you see your Primary Care Provider as part of your follow up plan. Activity: Resume your previous activity Non-emergency contact: Primary Care Provider and Battery Service Technician Call non-emergency contact if: you have any medication questions, your symptoms worsen and your pain is not controlled Follow-up/Referrals: Ashwin Foster DO [Physician] - 05/15/21 11:40 am (1 month) Donal Guevara MD [Primary Care Provider] - 04/26/21 1:00 pm ([facility]) Deandre Solis DO [Physician] - 05/02/21 2:50 pm (May) Diet: Heart Healthy and Low Fiber Addtl Attending Provider Instructions: You have been hospitalized for constipation. You were treated with medications to help get your bowels moving but then developed a possible small bowel obstruction and were given bowel rest and suppositories and IV fluids. Your bowels have begun to move again and you have been tolerating a low fiber diet which you should continue for the next two weeks, then advance as tolerated. Repeat imaging showed resolution of obstruction. Your liver enzymes were elevated and are better, but still elevated. You should keep your follow up appointment with [facility] for further work-up of your cirrhosis. You have completed treatment with Ciprofloxacin from Urology. Repeat urine culture was NEGATIVE and you do not need further treatment. You should discuss continued use of furosemide/daily weights with your cold meat cook to determine if maybe this may be used on an as needed basis to pre vent constipation and dehydration. Your lasix had been held while in the hospital and it is recommended that you call their office prior to resuming this. You may resume your losartan tomorrow but should have repeat labs in the next week to ensure no electrolyte issues. You should utilize miralax/colace over the counter as needed to help you keep bowels moving if needed but once normal you should consider fiber/metamucil to help bulk stools --> PLEASE NOTE, you need to have GLASS of water with metamucil to prevent worsening constipation. Please follow up with Urology in next 2 weeks for stent removal as previously scheduled and for continued monitoring of left sided stones. Please follow up with primary care in the next 1-2 weeks to monitor your progress. Please return to the emergency department with any worsening abdominal pain, fever, chills, chest pain, shortness of breath, or for any other symptoms that are concerning for you. It has been a pleasure being a part of the medical team providing for you while you have been in the hospital. Take care! Pending Studies at Discharge: Yes Studies:: AMA, GGT Stand-Alone Forms: [facility], Smoking Cessation Medications and DC Order Prescriptions: New polyethylene glycol 3350 [Miralax] 17 gram/dose powder 8.5 g PO DAILY PRN (Reason: constipation) Qty: 119 RF: 0 Continued Eliquis 5 mg tablet 5 mg PO BID Qty: 180 RF: 3 diltiazem HCl 240 mg capsule,extended release 24hr 240 mg PO QAM Qty: 90 RF: 3 cholecalciferol (vitamin D3) [Vitamin D3] 25 mcg (1,000 unit) capsule 2,000 unit PO QAM RF: 0 metoprolol succinate [Toprol XL] 50 mg tablet extended release 24 hr 50 mg PO BID Qty: 180 RF: 3 pantoprazole 40 mg tablet,delayed release (DR/EC) 40 mg PO BID Qty: 90 RF: 1 aspirin 81 mg tablet,delayed release (DR/EC) 81 mg PO QAM RF: 0 nystatin 100,000 unit/gram powder 1 applic topical BID PRN (Reason: Candidiasis) Qty: 60 RF: 5 fluoxetine 40 mg capsule 40 mg PO QAM RF: 0 atorvastatin 40 mg tablet 40 mg PO QAM RF: 0 fluoxetine 20 mg capsule 20 mg PO QAM RF: 0 furosemide 40 mg tablet 80 mg PO QAM RF: 0 losartan 25 mg tablet 25 mg PO QAM RF: 0 hydrocodone-acetaminophen 5-325 mg tablet 1 tab PO Q6H PRN (Reason: pain) Qty: 20 RF: 0 Discharge Orders: Discharge Order (Routine); Ordered 04/19/21 Ordered By: Batool Zabala/Other Patient Handouts: Treating Constipation Admission Data Admit Date/Time: 04/17/21 14:15 Attending Provider: Estela Alex Admit Provider: Marielena Benavides Primary Care Provider: Donal Guevara Other Providers: Garland Alegria ; Deandre Solis ; Ziggy Michelle Other Interventions: Discharge Summary Assessment (RN) Last Done: 04/19/21 12:44 Supervising Physician Co-Signing Physician Notes PA Supervision Note: I personally saw and examined the patient. I verified all baxter points and agree with SKYLAR Fajardo with the following exceptions and/or additions: S-Pt feeling well, moving bowels, no abd pain, no N/V, is lolly reg diet. No CP or SOB O- Vitals reviewed Gen: [AAOx3, NAD] HEENT: [anicteric sclerae, EOMI] CV: [irreg irreg, normal rate no mgr nl S1S2] Pulm: [CTAB no wcr] Abd: [+BS soft NT ND no masses or hernias] Ext: [no edema, 2+ DP pulses] Skin: [no rashes, warm/dry] Neuro: [full strength throughout] A/P-71 yo female here with partial SBO, now resolved, doing wlel, f/u with Urology and rest of plan as outlined above Coding Level of Care Code D/C Day Management >30 mins Diagnoses Constipation K59.00 Cirrhosis K74.60 Hypertension I10 Hypertension type: essential hypertension GERD (gastroesophageal reflux disease) K21.9 Esophagitis presence: without esophagitis TIA (transient ischemic attack) G45.9 Acute renal insufficiency N28.9 Anticoagulant long-term use Z79.01 BMI 36.0-36.9,adult Z68.36 Permanent atrial fibrillation I48.21 Chronic diastolic congestive heart failure I50.32 Morbid obesity E66.01 ARIADNE (acute kidney injury) N17.9
--- NOTE | 2021-04-21 02:40 | Billing Data ---
Date of Service April 21, 2021 Coding Level of Care Code 76770 Initial Inpt Care Lvl 2
[2021-04-21 12:09] LABS: Anti Mitochondrial Antibody NEGATIVE (NEGATIVE); CMV IgG Antibody <0.60 U/mL; CMV IgM Antibody <30.00 AU/mL
== END 2021-04-19 14:14 | disposition home or self-care (01) | DRG 389 ==
LOC: ED 20:00 → 3W 20:00 → SUATTDRO 23:06 → 3W 23:57 → SUATTDRO 04-17 14:15

== ENCOUNTER 2021-06-22 12:43 | Inpatient (IN) ==
[2021-06-22] MEDS ORDERED: ONDANSETRON INJ 2 MG/ML 2 ML VIAL IV STA (13:55)
--- NOTE | 2021-06-22 14:28 | Emergency Department Note ---
Impression & Plan Melena, Cirrhosis, Anticoagulant long-term use ED Provider Note NAME: GUSTABO MCKEON AGE: 71 SEX: F ARRIVES VIA: Walk-In INFORMANT: patient ED PROVIDER(S): Avtar Astorga MD CHIEF COMPLAINT: black stool PLAN: Disposition: Admit MEDICAL DECISION MAKING: The patient is a pleasant 71-year-old woman with a past medical history of HOFFMAN cirrhosis, hypertension, GERD, TIA, vertebral artery dissection, mesenteric fibrosis, PAF on eliquis, ESBL UTI, diastolic heart failure who presents to the emergency department for evaluation of new black watery stool that began this morning with associated weakness where she reports having recent blood work yesterday showing anemia. She denies abdominal pain. She reports nausea but denies vomiting. She reports having history of constipation and was recently started on Lactulose for her cirrhosis. She denies fevers, cough, congestion, CP, SOB. The patient was seen on 06/01/2021 by [facility] [place] and was considered to have well-compensated cirrhosis with most recent MELD 14. On arrival the patient is chronically ill appearing but in NAD, AFVSS. MM dry. Abdomen is mildly distended but soft. She has generalized abdominal tenderness to palpation, which her and her report is her baseline. No rebound or guarding. EKG without overt acute ischemia. WBC and platelets wnl. H/H 11.1/35.5, essentially unchanged from 2 days ago. INR 1.0. Chemistry without acidosis. BUN 32, increased from 20 two days ago. Electrolytes unremarkable. LFTs without significant abnormality. Ammonia wnl. L ipase wnl. UA without convincing evidence of infection. Covid-[address] abd pelvis demonstrates known hepatic cirrhosis. However, no ascites. Mild dilation of right renal collecting system appreciated with equivocal mild uroepithelial thickening of the right renal pelvis likely related to previous nephroureteral stent that had been removed. Otherwise, no acute process. Oly-Blatchford Bleeding Score is high risk, thus reasonable to admit for further management including PPI, octreotide, and GI consultation. Patient agrees with plan for admission. Resident, Dr Benavides, discussed the patient's case with Dr. Holm, [facility] hospitalist, who will evaluate the patient for admission. This patient was managed with the assistance of resident, Dr. Benavides. I discussed the case with the resident, examined the patient, and confirm the findings and plan as documented in this note. Triage Nursing notes reviewed and agree them. prior medical records reviewed Vital Signs: reviewed and remarkable for no significant abnormalities Differential diagnosis: Diverticulosis, AVM, coagulopathy, colitis, inflammatory bowel disease, malignancy, Lianet-Cartagena tear, esophagitis, peptic ulcer disease, variceal bleed, gastritis, epistaxis, fissure, hemorrhoids, as well as other pathologies. ER treatment provided: See below. Diagnostics interpreted by me: ECG: Atrial fibrillation, 88 bpm, no ectopy, no overt ST elevation or depression. . Cardiac Monitoring: An order for continuous cardiac monitoring was placed and demonstrated Atrial fibrillation, 88 bpm, no ectopy. Laboratory studies: see below Imaging studies: See below Consultation(s): Dr. Holm, [facility] hospitalist, who will evaluate the patient for admission. HPI: The patient is a pleasant 71-year-old woman with a past medical history of HOFFMAN cirrhosis, hypertension, GERD, TIA, vertebral artery dissection, mesenteric fibrosis, PAF on eliquis, ESBL UTI, diastolic heart failure who presents to the emergency department for evaluation of new black watery stool that began this morning with associated weakness where she reports having recent blood work yesterday showing anemia. She denies abdominal pain. She reports nausea but denies vomiting. She reports having history of constipation and was recently started on Lactulose for her cirrhosis. She denies fevers, cough, congestion, CP, SOB. The patient was seen on 06/01/2021 by [facility] [place] and was considered to have well-compensated cirrhosis with most recent MELD 14. ROS: See above HPI for pertinent positives & negatives. A total of 10 systems reviewed and were otherwise negative. PAST MEDICAL HISTORY: see Below PAST SURGICAL HISTORY: see Below FAMILY HISTORY:See Below SOCIAL HISTORY: see Below HOME MEDICATIONS: see Below ALLERGIES: see Below VITALS: see Below PHYSICAL EXAMINATION: GENERAL: Awake, alert, chronically ill-appearing, in no distress, BMI 43.7. HENT: Normocephalic, atraumatic. Oropharynx with dry mucous membranes and otherwise unremarkable. EYES: Normal conjunctiva. Sclera non-icteric. NECK: Supple. No nuchal rigidity. FROM. No JVD. RESPIRATORY: Clear to auscultation. CARDIAC: Regular rate, normal rhythm. Extremities warm and well perfused. Pulses equal. ABDOMEN: Distended but soft. Mild generalized abdominal tenderness to palpation. No rebound or guarding. No masses. RECTAL: Per resident exam, dark/melanotic stool, heme-occult positive. No gross blood/hemorrhage. MUSCULOSKELETAL: Chest examination reveals no tenderness. The back is symmetrical on inspection without obvious abnormality. There is no CVA tenderness to palpation. No joint edema. LOWER EXTREMITIES: Calves are equal size bilaterally and non-tender. 1+ BLE edema. No discoloration. NEURO: Normal sensorium. No sensory or motor deficits noted. No asterixis. SKIN: No rash or jaundice noted. ED Course: Critical Care: I have personally spent greater than 45 minutes of critical care time in the dir ect management of this patient. This includes bedside care, interpretation of diagnostic studies, and testing, discussion with consultants, patient, and family members, and other required patient management activities. This 45 minutes is in excess of all separately billable procedures. Avtar Astorga MD Past Med/Surg History Medical History Abdominal pain, acute, epigastric Abnormal computed tomography of abdomen and pelvis Abnormal results of liver function studies Anemia HX OF - IRON INFUSION SEVERAL MONTHS AGO Atrial fibrillation Dx approx 5 years ago - follows w/ Dr. Brewer (s/p remote pulmonary venous ablation X 2, on Eliquis and multiple negative chronotropes Bilateral pleural effusion Cardiac murmur Mild-moderate mitral regurgitation on 12/2019 echo, mild TR and CT Cholangitis Chronic diastolic congestive heart failure Cirrhosis Diaphoresis Dissection of vertebral artery Encounter for pre-operative examination Fecal incontinence GERD (gastroesophageal reflux disease) History of skin cancer & REMOVED History of sleep apnea HX SLEEP STUDY AND MACHINE, SINCE D/C'D - SLEEP APNEA RESOLVED Hydronephrosis of right kidney Hyperlipemia Hypertension Infection due to ESBL-producing Escherichia coli Kidney stones Lesion of ureter biopsy 12/29/2020 (pt unsure of results) Morbid obesity Nephrolithiasis Pain in the abdomen Perineal itching, female PFO (patent foramen ovale) Suspected per records Recurrent pancreatitis HX OF / 3-4 YR AGO Scalp itch Skin abscess Skin irritation SOB (shortness of breath) on exertion TIA (transient ischemic attack) TIA (transient ischemic attack) 2018- [place] - no residual -NO ISSUES SINCE Tick bite Urinary tract infection Surgical History H/O: hysterectomy History of cardiac radiofrequency ablation D/T AFIB - PT REPORTS HAD 1 BUT MAYBE 2 - NOT SURE DATES ([place]) History of cardioversion multiple History of colonoscopy History of colostomy History of colostomy reversal History of cystoscopy and Right Ureteroscopy with stent. Following with Dr Rowe. 12/2020. History of esophagogastroduodenoscopy (EGD) History of tubal ligation History of umbilical hernia repair Hx of abdominal surgery FOR REMOVAL OF CYST - PT NOT SURE TYPE Hx of cholecystectomy Hx of laparoscopy Hx of removal of cyst Tubal ligation status Family History Grandmother Diabetes Hypertension Mother Heart disease Hypertension Grandfather Stomach cancer Hypertension Father Pancreatic cancer Hypertension Other No family history of adverse response to anesthesia Denies family history of Ovarian cancer Breast cancer Colorectal cancer Social History Smoking Status: Never smoker Second Hand Exposure: No; Hx Alcohol Use: No Hx Substance Use: No Preferred Language: Vietnamese Communication Ability: Effective Visual Impairment: No Limitations Hearing Ability: Normal Dye Box Operator Required: No Beliefs That Will Affect Care: None marital status: Current Living Situation: Spouse 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 status: retired 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 Other 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 Helps Us Care for You: No other: [employer]GER [employer] Feels Safe at Home: Yes Seatbelt Use: always Sunscreen Use: No Assistive Devices: None Allergies Allergies Allergy/AdvReac Type Severity Reaction Status Date / Time No Known Allergies Allergy Verified 06/22/21 15:39 Home Meds Home Medications Medication Instructions Recorded Confirmed aspirin 81 mg tablet,delayed 81 mg PO QAM tab 09/02/19 06/22/21 release fluoxetine 20 mg capsule 20 mg PO QAM 11/03/20 06/22/21 fluoxetine 40 mg capsule 40 mg PO QAM 11/03/20 06/22/21 cholecalciferol (vitamin D3) 25 2,000 unit PO QAM cap 02/07/21 06/22/21 mcg (1,000 unit) capsule (Vitamin D3) losartan 25 mg tablet 25 mg PO QAM 03/24/21 06/22/21 carvedilol 6.25 mg tablet 6.25 mg PO BID 06/22/21 06/22/21 pantoprazole 40 mg tablet,delayed 40 mg PO DIRECTED 06/22/21 06/22/21 release Previous Rx's Medication Instructions Recorded apixaban 5 mg tablet (Eliquis) 5 mg PO BID #180 tab 08/25/20 diltiazem HCl 240 mg 240 mg PO QAM #90 cap 12/09/20 capsule,extended release 24 hr nystatin 100,000 unit/gram topical 1 applic TOPICAL BID PRN #60 g 02/06/21 powder hydrocodone 5 mg-acetaminophen 325 1 tab PO Q6H PRN #20 tab 04/13/21 mg tablet atorvastatin 40 mg tablet 40 mg PO QAM #90 tab 05/15/21 metoprolol succinate 25 mg 25 mg PO BID #180 tab 06/02/21 tablet,extended release 24 hr furosemide 40 mg tablet 80 mg PO QAM #180 tab 06/15/21 spironolactone 25 mg tablet 25 mg PO DAILY #30 tab 06/19/21 Results & Data (ED) Vital Signs Vital Signs - 24 hr 06/22/21 13:08 06/22/21 13:45 06/22/21 14:49 Temperature 36.9 C Temperature Source Temporal Artery Scan Pulse Rate 81 87 Pulse Rate from SpO2 Sensor 84 Respiratory Rate 18 14 20 Respiratory Effort / Characteristics Non-Labored Respiratory Depth Normal Blood Pressure 135/87 153/95 H Blood Pressure [Right Arm] 148/95 H Blood Pressure Mean 103 114 Blood Pressure Mean [Right Arm] 112 Blood Pressure Position [Right Arm] Lying Pulse Oximetry 96 98 97 Oxygen Delivery Method Room Air Room Air Room Air Sepsis Recent Fever Within 48 Hours No Sepsis New/Unexplained Change in Mental Status No Sepsis Action Taken by Nursing No Action Required 06/22/21 15:30 06/22/21 16:00 06/22/21 17:00 Temperature Temperature Source Pulse Rate 95 H 97 H 95 H Pulse Rate from SpO2 Sensor Respiratory Rate 18 17 19 Respiratory Effort / Characteristics Respiratory Depth Blood Pressure 151/118 H 151/93 H 160/98 H Blood Pressure [Right Arm] Blood Pressure Mean 129 112 118 Blood Pressure Mean [Right Arm] Blood Pressure Position [Right Arm] Pulse Oximetry 97 98 96 Oxygen Delivery Method Sepsis Recent Fever Within 48 Hours Sepsis New/Unexplained Change in Mental Status Sepsis Action Taken by Nursing Laboratory Data Attestation: I reviewed the patient's lab results. Result diagrams: 06/22/21 22:41 06/22/21 14:35 Lab Results 06/22/21 06/22/21 06/22/21 Range/Units 13:50 14:35 14:35 WBC 6.07 (4.8-10.8) K/uL RBC 3.76 L (4.2-5.4) M/uL Hgb 11.1 L (12.0-16.0) g/dL Hct 35.5 L (37-47) % MCV 94.4 (80-100) fL MCH 29.5 (25-34) pg MCHC 31.3 L (32-36) g/dL RDW Std Deviation 49.6 H (36.4-46.3) fL RDW Coeff of Rodrigo 14.4 (11.5-14.5) % Plt Count 225 (130-400) K/uL MPV 8.6 (7.4-10.4) fL Immature Gran % (Auto) 0.2 % Neut % (Auto) 70.8 % Lymph % (Auto) 19.6 % Wirt % (Auto) 8.2 % Eos % (Auto) 1.0 % Baso % (Auto) 0.2 % Neut # (Auto) 4.30 (1.4-6.5) K/uL Lymph # (Auto) 1.19 L (1.2-3.4) K/uL Wirt # (Auto) 0.50 (0.11-0.59) K/uL Eos # (Auto) 0.06 (0-0.5) K/uL Baso # (Auto) 0.01 (0-0.2) K/uL Immature Gran # (Auto) 0.01 (0.00-0.02) K/uL PT (9.0-12.0) Seconds INR (0.9-1.1) APTT (21.0-31.0) Seconds PTT Ratio Sodium 141 (136-145) mmol/L Potassium 4.4 (3.5-5.1) mmol/L Chloride 109 H (98-107) mmol/L Carbon Dioxide 30 (21-32) mmol/L Anion Gap 2.0 L (3-11) BUN 32 H (7-18) mg/dl Creatinine 1.12 (0.6-1.2) mg/dl Est Cr Clr Drug Dosing 57.0 ml/min Est GFR ( Amer) 58.0 ml/min Est GFR (Non-Af Amer) 50.1 ml/min BUN/Creatinine Ratio 28.3 H (10-20) Glucose 93 (70-99) mg/dl Calcium 9.3 (8.5-10.1) mg/dl Total Bilirubin 0.6 (0.2-1) mg/dl AST 14 L (15-37) U/L ALT 19 (12-78) U/L Alkaline Phosphatase 125 H (45-117) U/L Ammonia (11-32) umol/L Total Protein 7.1 (6.4-8.2) gm/dl Albumin 3.5 (3.4-5.0) gm/dl Globulin 3.6 (2.5-4.0) gm/dl Albumin/Globulin Ratio 1.0 (0.9-2) Lipase 114 (73-393) U/L Urine Color Yellow Urine Appearance Clear (Clear) Urine pH 5.5 (4.5-7.5) Ur Specific [place] 1.008 (1.000-1.030) Urine Protein Negative (Negative) Urine Glucose (UA) Negative (Negative) Urine Ketones Negative (Negative) Urine Blood Negative (Negative) Urine Nitrite Negative (Negative) Urine Bilirubin Negative (Negative) Urine Urobilinogen Negative (Negative) Ur Leukocyte Esterase Trace H (Negative) Urine WBC (Auto) 1-5 (0-5) /hpf Urine RBC (Auto) 0-4 (0-4) /hpf U Hyaline Cast (Auto) 1-5 (0-5) /lpf U Epithel Cells (Auto) 20-30 H (0-5) /lpf Urine Bacteria (Auto) Negative (Negative) COVID-19 Eval Order SARS-CoV-2 (PCR) (Negative) 06/22/21 06/22/21 06/22/21 Range/Units 14:35 15:18 15:18 WBC (4.8-10.8) K/uL RBC (4.2-5.4) M/uL Hgb (12.0-16.0) g/dL Hct (37-47) % MCV (80-100) fL MCH (25-34) pg MCHC (32-36) g/dL RDW Std Deviation (36.4-46.3) fL RDW Coeff of Rodrigo (11.5-14.5) % Plt Count (130-400) K/uL MPV (7.4-10.4) fL Immature Gran % (Auto) % Neut % (Auto) % Lymph % (Auto) % Wirt % (Auto) % Eos % (Auto) % Baso % (Auto) % Neut # (Auto) (1.4-6.5) K/uL Lymph # (Auto) (1.2-3.4) K/uL Wirt # (Auto) (0.11-0.59) K/uL Eos # (Auto) (0-0.5) K/uL Baso # (Auto) (0-0.2) K/uL Immature Gran # (Auto) (0.00-0.02) K/uL PT 10.8 (9.0-12.0) Seconds INR 1.1 (0.9-1.1) APTT 23.8 (21.0-31.0) Seconds PTT Ratio 0.9 Sodium (136-145) mmol/L Potassium (3.5-5.1) mmol/L Chloride (98-107) mmol/L Carbon Dioxide (21-32) mmol/L Anion Gap (3-11) BUN (7-18) mg/dl Creatinine (0.6-1.2) mg/dl Est Cr Clr Drug Dosing ml/min Est GFR ( Amer) ml/min Est GFR (Non-Af Amer) ml/min BUN/Creatinine Ratio (10-20) Glucose (70-99) mg/dl Calcium (8.5-10.1) mg/dl Total Bilirubin (0.2-1) mg/dl AST (15-37) U/L ALT (12-78) U/L Alkaline Phosphatase (45-117) U/L Ammonia (11-32) umol/L Total Protein (6.4-8.2) gm/dl Albumin (3.4-5.0) gm/dl Globulin (2.5-4.0) gm/dl Albumin/Globulin Ratio (0.9-2) Lipase (73-393) U/L Urine Color Urine Appearance (Clear) Urine pH (4.5-7.5) Ur Specific [place] (1.000-1.030) Urine Protein (Negative) Urine Glucose (UA) (Negative) Urine Ketones (Negative) Urine Blood (Negative) Urine Nitrite (Negative) Urine Bilirubin (Negative) Urine Urobilinogen (Negative) Ur Leukocyte Esterase (Negative) Urine WBC (Auto) (0-5) /hpf Urine RBC (Auto) (0-4) /hpf U Hyaline Cast (Auto) (0-5) /lpf U Epithel Cells (Auto) (0-5) /lpf Urine Bacteria (Auto) (Negative) COVID-19 Eval Order Covid19 at [facility] SARS-CoV-2 (PCR) NEGATIVE (Negative) 06/22/21 Range/Units 15:28 WBC (4.8-10.8) K/uL RBC (4.2-5.4) M/uL Hgb (12.0-16.0) g/dL Hct (37-47) % MCV (80-100) fL MCH (25-34) pg MCHC (32-36) g/dL RDW Std Deviation (36.4-46.3) fL RDW Coeff of Rodrigo (11.5-14.5) % Plt Count (130-400) K/uL MPV (7.4-10.4) fL Immature Gran % (Auto) % Neut % (Auto) % Lymph % (Auto) % Wirt % (Auto) % Eos % (Auto) % Baso % (Auto) % Neut # (Auto) (1.4-6.5) K/uL Lymph # (Auto) (1.2-3.4) K/uL Wirt # (Auto) (0.11-0.59) K/uL Eos # (Auto) (0-0.5) K/uL Baso # (Auto) (0-0.2) K/uL Immature Gran # (Auto) (0.00-0.02) K/uL PT (9.0-12.0) Seconds INR (0.9-1.1) APTT (21.0-31.0) Seconds PTT Ratio Sodium (136-145) mmol/L Potassium (3.5-5.1) mmol/L Chloride (98-107) mmol/L Carbon Dioxide (21-32) mmol/L Anion Gap (3-11) BUN (7-18) mg/dl Creatinine (0.6-1.2) mg/dl Est Cr Clr Drug Dosing ml/min Est GFR ( Amer) ml/min Est GFR (Non-Af Amer) ml/min BUN/Creatinine Ratio (10-20) Glucose (70-99) mg/dl Calcium (8.5-10.1) mg/dl Total Bilirubin (0.2-1) mg/dl AST (15-37) U/L ALT (12-78) U/L Alkaline Phosphatase (45-117) U/L Ammonia 15.0 (11-32) umol/L Total Protein (6.4-8.2) gm/dl Albumin (3.4-5.0) gm/dl Globulin (2.5-4.0) gm/dl Albumin/Globulin Ratio (0.9-2) Lipase (73-393) U/L Urine Color Urine Appearance (Clear) Urine pH (4.5-7.5) Ur Specific [place] (1.000-1.030) Urine Protein (Negative) Urine Glucose (UA) (Negative) Urine Ketones (Negative) Urine Blood (Negative) Urine Nitrite (Negative) Urine Bilirubin (Negative) Urine Urobilinogen (Negative) Ur Leukocyte Esterase (Negative) Urine WBC (Auto) (0-5) /hpf Urine RBC (Auto) (0-4) /hpf U Hyaline Cast (Auto) (0-5) /lpf U Epithel Cells (Auto) (0-5) /lpf Urine Bacteria (Auto) (Negative) COVID-19 Eval Order SARS-CoV-2 (PCR) (Negative) Administered Medications Carvedilol (Carvedilol 6.25 Mg Tab) 6.25 mg PO BID JESSIE Stop: 07/22/21 20:59 Last Admin: 06/22/21 22:22 Dose: 6.25 mg Documented by: [id number] Pantoprazole Sodium 40 mg/ (Syringe) 10 mls @ 5 mls/min IV BID JESSIE Stop: 07/22/21 20:59 Last Admin: 06/22/21 21:04 Dose: 5 mls/min Documented by: [id number] Ceftriaxone Sodium 2,000 mg/ (Dextrose) 70 mls @ 140 mls/hr IV Q24H JESSIE Stop: 07/02/21 20:59 Last Infusion: 06/22/21 23:25 Dose: 0 mls/hr Documented by: [id number] Admin: 06/22/21 22:22 Dose: 140 mls/hr Documented by: [id number] Octreotide Acetate 500 mcg/ (Sodium Chloride) 105 mls @ 10.5 mls/hr IV .Q10H JESSIE Stop: 07/22/21 23:44 Last Admin: 06/22/21 23:55 Dose: 50 mcg/hr, 10.5 mls/hr Documented by: [id number] Metoprolol Succinate (Metoprolol Succ 25mg Ext Rel Tab) 25 mg PO BID JESSIE Stop: 07/22/21 20:59 Last Admin: 06/22/21 22:22 Dose: 25 mg Documented by: [id number] Discontinued Medications Octreotide Acetate 50 mcg/ (Syringe) 10 mls @ 3 mls/min IV ONE STA Stop: 06/22/21 16:43 Last Admin: 06/22/21 18:07 Dose: Not Given Documented by: [id number] Ioversol (Optiray 320 100ml) 94 ml IV ONCE ONE Stop: 06/22/21 15:36 Last Admin: 06/22/21 15:35 Dose: 94 ml Documented by: [id number] Ondansetron HCl (Ondansetron Inj 2 Mg/Ml 2 Ml Vial) 4 mg IV NOW STA Stop: 06/22/21 13:56 Last Admin: 06/22/21 14:39 Dose: 4 mg Documented by: [id number] Imaging Data Radiologist's Impression: Abdomen/Pelvis CT 06/22/21 14:38 CT abd pelvis IV con only CLINICAL HISTORY: cirrhosis, GI bleed COMPARISON STUDY: 04/16/2021 TECHNIQUE: Patient was scanned in a dynamic helical fashion during intravenous administration of 94 cc of Optiray 320. A dose lowering technique was utilized adhering to the principles of ALARA. CT DOSE: 1510.30 mGy.cm FINDINGS: Lower chest: There is a small right pleural effusion. There are right basilar compressive atelectatic changes. Liver: The liver demonstrates a slightly nodular contour suggestive of underlying hepatic cirrhosis. There is a 9 mm hypodense nodule within the right hepatic lobe inferiorly. There is interval decrease in the size of a 1 cm exophytic nodule arising from the right lobe the liver inferiorly. Gallbladder: Surgically absent Spleen: Normal in size and attenuation. Pancreas: Unremarkable. Adrenal glands: Unremarkable. Kidneys: There are multiple nonobstructing left renal calculi. There are bilateral hypodense renal lesions consistent with cysts. There is mild dilatation of the right renal collecting system with equivocal mild uroepithelial thickening Bowel: There are no transition zones to indicate bowel obstruction. There is no evidence of acute diverticulitis. There are postsurgical changes of a gastric bypass and Ngoc-en-Y anastomosis. The appendix appears normal. Peritoneum: There is no intraperitoneal free air or abdominal ascites. Vasculature: The abdominal aorta is normal in course and caliber. Adenopathy: None. Pelvic viscera: The uterus is surgically absent. Skeletal structures: No destructive osseous lesions are seen. IMPRESSION: 1. Suspected hepatic cirrhosis 2. Indeterminate 9 mm hypodense nodule within the right lobe the liver inferiorly 3. Postsurgical changes of a gastric bypass and Ngoc-en-Y anastomosis 4. Colonic diverticulosis. No evidence of acute diverticulitis. Normal appendix. 5. Left-sided nephrolithiasis 6. Mild dilatation the right renal collecting system. Equivocal mild uroepithelial thickening of the right renal pelvis. Interval removal of the previously identified double pigtail right-sided nephroureteral stent 7. Right pleural effusion ACT 112: Negative or not required by law. Electronically signed by: Shahid Dempsey M.D. 06/22/2021 3:57 PM Discharge Plan Visit Data Chief Complaint: GI Assessment Stated Complaint: BOWEL ISSUES, BLACK ED Provider: Avtar Astorga ED Midlevel Provider: Marielena Benavides Discharge Problem: Melena, Cirrhosis, Anticoagulant long-term use Patient Disposition: Admitted As Inpatient Discharge Instructions Interventions: ED Discharge Assessment Last Done: 06/22/21 19:35 Discharge Problem: Cirrhosis Qualifiers: Hepatic cirrhosis type: unspecified hepatic cirrhosis Ascites presence: with ascites Qualified Code(s): K74.60 - Unspecified cirrhosis of liver
[2021-06-22 14:30] LABS: Appearance Urine Clear (Clear); Bacteria Urine Automated Negative (Negative); Bilirubin Urine Negative (Negative); Blood Urine Negative (Negative); Color Urine Yellow; Epithelial Cell Urine Auto 20-30 /lpf (0-5); Glucose Urine UA Negative (Negative); Ketones Urine Negative (Negative); Leukocyte Esterase Urine Trace (Negative); Nitrite Urine Negative (Negative); Protein Urine Negative (Negative); RBC Urine Automated 0-4 /hpf (0-4); Specific Gravity Urine 1.008 (1.000-1.030); Urobilinogen Urine Negative (Negative); pH Urine 5.5 (4.5-7.5)
[2021-06-22 14:44] LABS: Basophils # (auto) 0.01 K/uL (0-0.2); Basophils % (auto) 0.2 %; Eosinophils # (auto) 0.06 K/uL (0-0.5); Hematocrit (blood only) 35.5 % (37-47); Hemoglobin 11.1 g/dL (12.0-16.0); Immature Granulocytes # (auto) 0.01 K/uL (0.00-0.02); Immature Granulocytes % (auto) 0.2 %; Lymphocytes # (auto) 1.19 K/uL (1.2-3.4); Lymphocytes % (auto) 19.6 %; Mean Corpuscular Hemoglobin 29.5 pg (25-34); Mean Corpuscular Hgb Conc 31.3 g/dL (32-36); Mean Corpuscular Volume 94.4 fL (80-100); Mean Platelet Volume 8.6 fL (7.4-10.4); Monocytes % (auto) 8.2 %; Neutrophils % (auto) 70.8 %; Platelet Count 225 K/uL (130-400); RDW Coefficient of Variation 14.4 % (11.5-14.5); RDW Standard Deviation 49.6 fL (36.4-46.3); Red Blood Count 3.76 M/uL (4.2-5.4); White Blood Count 6.07 K/uL (4.8-10.8)
[2021-06-22 14:56] LABS: INR 1.1 (0.9-1.1); Partial Thromboplastin Ratio 0.9; Partial Thromboplastin Time 23.8 Seconds (21.0-31.0); Prothrombin Time 10.8 Seconds (9.0-12.0)
[2021-06-22 15:16] LABS: Albumin Level 3.5 gm/dl (3.4-5.0); BUN Creatinine Ratio 28.3 (10-20); Calcium 9.3 mg/dl (8.5-10.1); Est GFR (Non-African American) 50.1 ml/min; Potassium 4.4 mmol/L (3.5-5.1)
--- NOTE | 2021-06-22 15:17 | Electrocardiogram Report ---
Test Reason : Blood Pressure : / mmHG Vent. Rate : 088 BPM Atrial Rate : 093 BPM P-R Int : 000 ms QRS Dur : 082 ms QT Int : 374 ms P-R-T Axes : 000 -09 011 degrees QTc Int : 452 ms Atrial fibrillation Possible Old Inferior infarct Abnormal ECG When compared with ECG of 16-APR-2021 22:14, Borderline Criteria for Inferior infarct is now Present Confirmed by Trace Brewer ([id number]) on 06/22/2021 3:17:28 PM Referred By: ED Confirmed By:Trace Brewer
[2021-06-22 15:19] LABS: Bilirubin,Total 0.6 mg/dl (0.2-1); Globulin 3.6 gm/dl (2.5-4.0); Total Protein 7.1 gm/dl (6.4-8.2)
[2021-06-22] MEDS ORDERED: OPTIRAY 320 100ml IV ONE (15:35)
--- NOTE | 2021-06-22 15:58 | CT Scan Report ---
CT abd pelvis IV con only CLINICAL HISTORY: cirrhosis, GI bleed COMPARISON STUDY: 04/16/2021 TECHNIQUE: Patient was scanned in a dynamic helical fashion during intravenous administration of 94 c c of Optiray 320. A dose lowering technique was utilized adhering to the principles of ALARA. CT DOSE: 1510.30 mGy.cm FINDINGS: Lower chest: There is a small right pleural effusion. There are right basilar compressive atelectatic changes. Liver: The liver demonstrates a slightly nodular contour suggestive of underlying hepatic cirrhosis. There is a 9 mm hypodense nodule within the right hepatic lobe inferiorly. There is interval decrease in the size of a 1 cm exophytic nodule arising from the right lobe the liver inferiorly. Gallbladder: Surgically absent Spleen: Normal in size and attenuation. Pancreas: Unremarkable. Adrenal glands: Unremarkable. Kidneys: There are multiple nonobstructing left renal calculi. There are bilateral hypodense renal le sions consistent with cysts. There is mild dilatation of the right renal collecting system with equiv ocal mild uroepithelial thickening Bowel: There are no transition zones to indicate bowel obstruction. There is no evidence of acute div erticulitis. There are postsurgical changes of a gastric bypass and Ngoc-en-Y anastomosis. The append ix appears normal. Peritoneum: There is no intraperitoneal free air or abdominal ascites. Vasculature: The abdominal aorta is normal in course and caliber. Adenopathy: None. Pelvic viscera: The uterus is surgically absent. Skeletal structures: No destructive osseous lesions are seen. IMPRESSION: 1. Suspected hepatic cirrhosis 2. Indeterminate 9 mm hypodense nodule within the right lobe the liver inferiorly 3. Postsurgical changes of a gastric bypass and Ngoc-en-Y anastomosis 4. Colonic diverticulosis. No evidence of acute diverticulitis. Normal appendix. 5. Left-sided nephrolithiasis 6. Mild dilatation the right renal collecting system. Equivocal mild uroepithelial thickening of the right renal pelvis. Interval removal of the previously identified double pigtail right-sided nephrour eteral stent 7. Right pleural effusion ACT 112: Negative or not required by law. Electronically signed by: Shahid Dempsey M.D. 06/22/2021 3:57 PM
[2021-06-22] MEDS ORDERED: OCTREOTIDE ACETATE 50 MCG in SYRINGE 9.5 ML IV STA (16:40)
--- NOTE | 2021-06-22 18:05 | History & Physical Report ---
Date of Service June 22, 2021 Assessment & Plan (1) ARIADNE (acute kidney injury): Plan: Tea is a 71-year-old female with a notable history of nonalcoholic hepatic cirrhosis [place] [facility] [place] previous Ngoc-en-Y gastric bypass, hypertension, GERD, previous TIA, vertebral artery dissection, mesenteric fibrosis, atrial fibrillation on chronic anticoagulation, heart failure with preserved ejection fraction who presented to [facility] for evaluation of melanotic stools, subsequently found to have mild anemia (11.1) and heme-occult (+) stools upon arrival. Melena In the setting of known nonalcoholic hepatic cirrhosis and chronic anticoagulation for atrial fibrillation On arrival, patient found to be hemodynamically stable with hemoglobin 11.1, just mildly reduced from a few days prior Given her hepatic cirrhosis, certainly elevated concern for esophageal varices as potential source N.p.o. Initiate Protonix twice daily IV Patient given 1 dose of octreotide in the ED Given presence of cirrhosis and concern for upper GI bleed, will initiate ceftriaxone Hold Eliquis, aspirin Consult GI for aid in management and need for potential endoscopy Type and screen, recheck H&H at 2200 continue home Coreg, metoprolol for beta-blockade effect (patient currently transitioning at direction of cardiology, hepatology) HOFFMAN Cirrhosis LFTs, INR, ammonia WNL on arrival Hold home lactulose for right now given NPO [place] [facility] [place] per last [place]. No h/o esophageal varices prior. Mild Normocytic Anemia LNN in 04/2021 - at 12.0. On 06/20, reported at 11.4, today 11.1 Suspect d/t mild blood loss at this time Not symptomatic at present. Transfuse Hgb < 7 or if symptomatic CBC qAM Permanent Atrial Fibrillation Noted on exam, rate controlled Hold home Eliquis, as above Continue metoprolol, Coreg (patient on both per recent cardiology note - weening off metoprolol) Continue diltiazem HFpEF Stable. No signs of volume overload on exam today Continue beta-blockade, as above Continue home diuretics for now. Low threshold to discontinue should HoTN become a concern. ASCVD / HTN / H/O TIA Continue statin Hold ASA Continue losartan Anxiety Continue Prozac Code: Full code Diet: NPO Dispo: MS/Tele PPX: Hold pharmacologic in setting of possible GIB. SCDs. (2) Cirrhosis: (3) Hypertension: (4) GERD (gastroesophageal reflux disease): (5) Anemia: (6) Anticoagulant long-term use: (7) Chronic pain of inguinal region: (8) Hyperlipidemia LDL goal <70: (9) Permanent atrial fibrillation: (10) Abdominal discomfort, epigastric: (11) Chronic diastolic congestive heart failure: (12) Morbid obesity: (13) Abdominal pain: History of Present Illness Primary Care Provider: Christopher Guevara MD Tea is a 71-year-old female with a notable history of nonalcoholic hepatic cirrhosis [place] [facility] [place] previous Ngoc-en-Y gastric bypass, hypertension, GERD, previous TIA, vertebral artery dissection, mesenteric fibrosis, atrial fibrillation on chronic anticoagulation, heart failure with preserved ejection fraction who presented to [facility] for evaluation of melanotic stools. Patient said that she felt relatively in her normal health up through this morning, where she did endorse passing two darkly discolored stools. Although she has never had these before, she recognize that they may be a sign of GI bleed, so it was suggested by her primary care physician to come in to be evaluated. She denied any new abdominal pain, loss of appetite, nausea, vomiting over the last several days. Further, she denied any lightheadedness, dizziness, new shortness of breath, or symptoms of presyncope today or over the last several days. Of note, she does receive her [place] care [place] [facility] [place] During her recent visit, she was recommended to transition onto Coreg and off of her ARBwhich is currently in process. She has been taking her medications as prescribed. In the emergency room, she was found to be hemodynamically stable with a hemoglobin of 11.1, just slightly decreased from 11.4 several days ago. Hemoccult was positive. She was started on IV Protonix and given a single dose of octeotride. Medicine was engaged for admission for potential UGIB. Allergies Allergy/AdvReac Type Severity Reaction Status Date / Time No Known Allergies Allergy Verified 06/22/21 15:39 Home Medications Medication Instructions Recorded Confirmed Type aspirin 81 mg tablet,delayed 81 mg PO QAM tab 09/02/19 06/22/21 History release apixaban 5 mg tablet (Eliquis) 5 mg PO BID #180 tab 08/25/20 06/22/21 Rx fluoxetine 20 mg capsule 20 mg PO QAM 11/03/20 06/22/21 History fluoxetine 40 mg capsule 40 mg PO QAM 11/03/20 06/22/21 History diltiazem HCl 240 mg 240 mg PO QAM #90 cap 12/09/20 06/22/21 Rx capsule,extended release 24 hr nystatin 100,000 unit/gram topical 1 applic TOPICAL BID PRN #60 g 02/06/21 06/22/21 Rx powder cholecalciferol (vitamin D3) 25 2,000 unit PO QAM cap 02/07/21 06/22/21 History mcg (1,000 unit) capsule (Vitamin D3) losartan 25 mg tablet 25 mg PO QAM 03/24/21 06/22/21 History hydrocodone 5 mg-acetaminophen 325 1 tab PO Q6H PRN #20 tab 04/13/21 06/22/21 Rx mg tablet atorvastatin 40 mg tablet 40 mg PO QAM #90 tab 05/15/21 06/22/21 Rx metoprolol succinate 25 mg 25 mg PO BID #180 tab 06/02/21 06/22/21 Rx tablet,extended release 24 hr furosemide 40 mg tablet 80 mg PO QAM #180 tab 06/15/21 06/22/21 Rx spironolactone 25 mg tablet 25 mg PO DAILY #30 tab 06/19/21 06/22/21 Rx carvedilol 6.25 mg tablet 6.25 mg PO BID 06/22/21 06/22/21 History pantoprazole 40 mg tablet,delayed 40 mg PO DIRECTED 06/22/21 06/22/21 History release Past Med/Surg History Medical History (Updated 06/13/21 @ 11:57 by Damian Barnett MD) Abdominal pain, acute, epigastric Abnormal computed tomography of abdomen and pelvis Abnormal results of liver function studies Anemia HX OF - IRON INFUSION SEVERAL MONTHS AGO Atrial fibrillation Dx approx 5 years ago - follows w/ Dr. Brewer (s/p remote pulmonary venous ablation X 2, on Eliquis and multiple negative chronotropes Bilateral pleural effusion Cardiac murmur Mild-moderate mitral regurgitation on 12/2019 echo, mild TR and VA Cholangitis Chronic diastolic congestive heart failure Cirrhosis Diaphoresis Dissection of vertebral artery Encounter for pre-operative examination Fecal incontinence GERD (gastroesophageal reflux disease) History of skin cancer & REMOVED History of sleep apnea HX SLEEP STUDY AND MACHINE, SINCE D/C'D - SLEEP APNEA RESOLVED Hydronephrosis of right kidney Hyperlipemia Hypertension Infection due to ESBL-producing Escherichia coli Kidney stones Lesion of ureter biopsy 12/29/2020 (pt unsure of results) Morbid obesity Nephrolithiasis Pain in the abdomen Perineal itching, female PFO (patent foramen ovale) Suspected per records Recurrent pancreatitis HX OF / 3-4 YR AGO Scalp itch Skin abscess Skin irritation SOB (shortness of breath) on exertion TIA (transient ischemic attack) TIA (transient ischemic attack) 2018- [place] - no residual -NO ISSUES SINCE Tick bite Urinary tract infection Surgical History H/O: hysterectomy History of cardiac radiofrequency ablation D/T AFIB - PT REPORTS HAD 1 BUT MAYBE 2 - NOT SURE DATES ([facility]) History of cardioversion multiple History of colonoscopy History of colostomy History of colostomy reversal History of cystoscopy and Right Ureteroscopy with stent. Following with Dr Rowe. 12/2020. History of esophagogastroduodenoscopy (EGD) History of tubal ligation History of umbilical hernia repair Hx of abdominal surgery FOR REMOVAL OF CYST - PT NOT SURE TYPE Hx of cholecystectomy Hx of laparoscopy Hx of removal of cyst Tubal ligation status Family History Grandmother Diabetes Hypertension Mother Heart disease Hypertension Grandfather Stomach cancer Hypertension Father Pancreatic cancer Hypertension Other No family history of adverse response to anesthesia Denies family history of Ovarian cancer Breast cancer Colorectal cancer Social History Smoking Status: Never smoker Second Hand Exposure: No; Hx Alcohol Use: No Hx Substance Use: No Preferred Language: Spanish Communication Ability: Effective Visual Impairment: No Limitations Hearing Ability: Normal Apartment Coordinator Required: No Beliefs That Will Affect Care: None marital status: Current Living Situation: Spouse 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 status: retired 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 [employer] Feels Safe at Home: Yes Seatbelt Use: always Sunscreen Use: No Assistive Devices: None Review of Systems Review of Systems: Constitutional: Denies fever, chills, malaise, weight change Eyes: Denies double vision, vision change, eye pain ENT: Denies ear pain, sore throat, sinus pain Cardiovascular: Denies Chest pain, chest pressure, palpitations, extremity swelling Respiratory: Denies shortness of breath, cough, sputum production, difficulty breathing Gastrointestinal: Denies abdominal pain, nausea, vomiting, constipation, diarrhea Genitourinary: Denies urinary symptoms including dysuria Musculoskeletal: Denies weakness, muscle aches/pain, joint aches/pain Integumentary:Denies rash, lesions, bruising Neurological: Denies headache, numbness, tingling, focal weakness Physical Exam Physical Exam: General: Tired appearing 71-year-old female who is lying back in her hospital bed, relaxed upon my arrival. She converses freely and is in no acute distress. HEENT: NCAT. Eyes - Sclera are white, anicteric, and without injection. No conjunctival pallor. PERRL. Cardiac: Normal rate and irregular rhythm; S1 and S2 present with no murmurs, rubs, or gallops. No JVD. Pulmonary: Good respiratory effort with symmetric expansion of the chest. No use of accessory muscles. Lungs were clear to auscultation bilaterally with no crackles or wheezes. Abdominal: Normoactive bowel sounds. Abdomen was soft and nondistended. There was tenderness to palpation within the left and right lower quadrants, as well as in the suprapubic region. Extremities: Upper and lower extremities are warm and well perfused. There was trace peripheral edema in the lower extremities. Psych: Well-developed, well-nourished, appropriately dressed for occasion. Behavior is cooperative and appropriate. Affect is WNL. Insight is appropriate. Results & Data Results & Data ([facility]) Vital Signs (Past 12 Hours) Vital Signs Temp Pulse Resp BP BP Pulse Ox 06/22/21 16:00 97 H 17 151/93 H 98 06/22/21 15:30 95 H 18 151/118 H 97 06/22/21 14:49 87 20 153/95 H 97 06/22/21 13:45 14 148/95 H 98 06/22/21 13:08 36.9 C 81 18 135/87 96 Code Status & VTE Plan VTE Prophylaxis Plan VTE Prophylaxis will be ordered: No Supervising Physician Co-Signing Physician Notes 71 y/o F Hx HTN, HLD, nonalcoholic cirrhosis, mild systolic CHF, prior TIA, prior gastric bypass, AF - anticoagulated with Eliquis. Presents with 2 episodes of black, tarry stool this AM. The pt did not c/o abominal pain, nausea, vomiting, diarrhea or lightheadedness. Her Hb on arrival was 11.0 from 11.4 a few days prior. A CT abdomen was negative for acute findings. OE: General: AAO x 3, no distress ENT: No erythema or exudates, no thrush Eyes: URIEL, EOMI Head and neck: Normocephalic, atraumatic, No JVD, neck is supple. Chest/heart: Nontender, S1,2, RRR, no murmurs, no gallops Lungs: CTAB, no wheezing or crackles Abdomen: She is tender to palpation in her lower quadrants BL Neuro: AAO x 3, speech is clear, no unilateral weakness or loss of sensation, coordination intact Musculoskeletal: No joint inflammation, muscle tenderness, FROM Skin: No acute rashes or ulcers Extremities: No clubbing, cyanosis, edema P: 1) GI bleed - Due to her Hx of cirrhosis nonalcoholic cirrhosis, she is placed on both octreotide and a PPi. We will trend Hb, transfuse as needed and consult GI. 2) CHF - she has been on both Lasix and Aldactone which are held. We will continue carvedilol as tolerated. She is euvolemic on admission. 3) AF - cont Carvedilol - she is tapering off metoprolol as well. Apixaban is held and may need to be replaced with a more easily reversible agent if varices are discovered. 4) HTN, HLD - resume Losartan, statin when placed on diet 5) History of TIA - ASA held - resume statin as above when taking PO Full code Total time for this admit including review of labs, meds, imaging, records - discussion with pt, resident and ER attending - 45 min Resident Activity Tracking Resident Involvement: Resident Care Provided Care Provided: Adult Hospital Medicine (1) GERD (gastroesophageal reflux disease) Esophagitis presence: without esophagitis Qualified Code(s): K21.9 - Gastro- esophageal reflux disease without esophagitis (2) Abdominal pain Abdominal location: unspecified location Qualified Code(s): R10.9 - Unspecified abdominal pain (3) Hypertension Hypertension type: essential hypertension Qualified Code(s): I10 - Essential (primary) hypertension
[2021-06-22] MEDS ORDERED: ACETAMINOPHEN 325 MG TAB PO PRN (20:50)
[2021-06-22] MEDS ORDERED: cefTRIAXone SODIUM 1,000 MG in DEXTROSE 5% 50 ML IV SCH (20:50)
[2021-06-22] MEDS ORDERED: cefTRIAXone SODIUM 2,000 MG in DEXTROSE 5% 50 ML IV SCH (21:00)
[2021-06-22] MEDS: PANTOprazole 40 MG in SYRINGE 0 ML IV SCH (21:04)
[2021-06-22] MEDS: carvediloL 6.25 MG TAB PO SCH (22:22)
[2021-06-22] MEDS: METOPROLOL SUCC 25MG EXT REL TAB PO SCH (22:22)
[2021-06-22 22:57] LABS: Hematocrit (blood only) 32.6 % (37-47); Hemoglobin 10.4 g/dL (12.0-16.0)
[2021-06-22] MEDS ORDERED: SIMETHICONE 80 MG CHEW PO PRN (23:31)
[2021-06-22] MEDS: OCTREOTIDE ACETATE 500 MCG in 0.9 % SODIUM CHLORIDE 100 ML IV SCH (23:55)
[2021-06-23] MEDS ORDERED: MoRPHine SULFATE 2 MG/ML CARP IV STA (01:23)
[2021-06-23] MEDS ORDERED: MoRPHine SULFATE 2 MG/ML CARP ONE (01:26)
[2021-06-23] MEDS ORDERED: PROMETHAZINE HCL 25 MG in SODIUM CHLORIDE 0.9% 50 ML IV STA (01:39)
[2021-06-23] MEDS ORDERED: MoRPHine SULFATE 4 MG/ML 1 ML CARP\\VIAL IV STA (02:17)
--- NOTE | 2021-06-23 07:19 | XRay Report ---
KUB CLINICAL HISTORY: Abdominal pain. COMPARISON STUDY: CT of the abdomen and pelvis June 22, 2021. FINDINGS: This exam is compromised by suboptimal penetration. Note is made of cholecystectomy clips a s well as postoperative findings from right gastric bypass. There is contrast within the bladder and left collecting system from recent contrast-enhanced CT. Small right pleural effusion is noted. IMPRESSION: No evidence for a bowel obstruction. Exam compromised by suboptimal penetration. ACT 112: Negative or not required by law. Electronically signed by: Robe Pattersno M.D. 06/23/2021 7:18 AM
[2021-06-23 07:27] LABS: Eosinophils # (auto) 0.03 K/uL (0-0.5); Eosinophils % (auto) 0.5 %; Hematocrit (blood only) 33.8 % (37-47); Hemoglobin 10.4 g/dL (12.0-16.0); Immature Granulocytes # (auto) 0.01 K/uL (0.00-0.02); Immature Granulocytes % (auto) 0.2 %; Lymphocytes # (auto) 0.58 K/uL (1.2-3.4); Lymphocytes % (auto) 8.9 %; Mean Corpuscular Hemoglobin 29.6 pg (25-34); Mean Corpuscular Hgb Conc 30.8 g/dL (32-36); Mean Corpuscular Volume 96.3 fL (80-100); Mean Platelet Volume 9.2 fL (7.4-10.4); Monocytes # (auto) 0.33 K/uL (0.11-0.59); Neutrophils % (auto) 85.4 %; Platelet Count 243 K/uL (130-400); RDW Coefficient of Variation 14.5 % (11.5-14.5); RDW Standard Deviation 50.6 fL (36.4-46.3); Red Blood Count 3.51 M/uL (4.2-5.4); White Blood Count 6.55 K/uL (4.8-10.8)
[2021-06-23 07:44] LABS: Partial Thromboplastin Ratio 0.8; Partial Thromboplastin Time 21.9 Seconds (21.0-31.0); Prothrombin Time 10.6 Seconds (9.0-12.0)
[2021-06-23 07:53] LABS: Albumin Level 3.2 gm/dl (3.4-5.0); BUN Creatinine Ratio 25.9 (10-20); Calcium 8.6 mg/dl (8.5-10.1); Creatinine Clr Calc Pharmacy 54.8 ml/min; Est GFR (African American) 55.6 ml/min; Potassium 4.3 mmol/L (3.5-5.1)
[2021-06-23 08:39] LABS: Albumin Globulin Ratio 0.9 (0.9-2); Bilirubin,Total 0.9 mg/dl (0.2-1); Globulin 3.7 gm/dl (2.5-4.0); Total Protein 6.9 gm/dl (6.4-8.2)
[2021-06-23] MEDS ORDERED: FLUoxetine HCL 20 MG CAP PO SCH (09:00)
[2021-06-23] MEDS: PANTOprazole 40 MG in SYRINGE 0 ML IV SCH (09:18)
[2021-06-23] MEDS: carvediloL 6.25 MG TAB PO SCH ×2 (09:19→22:30)
[2021-06-23] MEDS: FLUoxetine HCL 20 MG CAP PO SCH (09:19)
[2021-06-23] MEDS: CHOLECALCIFEROL 1,000 UNITS 25 MCG TAB PO SCH (09:19)
[2021-06-23] MEDS: dilTIAZem HCL 240 MG CAPCR PO SCH (09:19)
[2021-06-23] MEDS: ATORVASTATIN 40 MG TAB PO SCH (09:19)
[2021-06-23] MEDS: METOPROLOL SUCC 25MG EXT REL TAB PO SCH ×2 (09:19→22:27)
[2021-06-23] MEDS: OCTREOTIDE ACETATE 500 MCG in 0.9 % SODIUM CHLORIDE 100 ML IV SCH (09:31)
--- NOTE | 2021-06-23 09:41 | Anesthesiology Consultation ---
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 Rafa Craig MD Height/Weight Height: 5 ft 3 in Weight: 110.9 kg Allergies Allergy/AdvReac Type Severity Reaction Status Date / Time No Known Allergies Allergy Verified 06/22/21 15:39 Medications Home Medications Medication Instructions Recorded Confirmed Last Taken aspirin 81 mg tablet,delayed 81 mg PO QAM tab 09/02/19 06/22/21 06/22/21 09:00 release apixaban 5 mg tablet (Eliquis) 5 mg PO BID #180 tab 08/25/20 06/22/21 06/22/21 09:00 fluoxetine 20 mg capsule 20 mg PO QAM 11/03/20 06/22/21 06/22/21 09:00 fluoxetine 40 mg capsule 40 mg PO QAM 11/03/20 06/22/21 06/22/21 09:00 diltiazem HCl 240 mg 240 mg PO QAM #90 cap 12/09/20 06/22/21 06/22/21 09:00 capsule,extended release 24 hr nystatin 100,000 unit/gram topical 1 applic TOPICAL BID PRN #60 g 02/06/21 06/22/21 04/12/21 21:00 powder cholecalciferol (vitamin D3) 25 2,000 unit PO QAM cap 02/07/21 06/22/21 06/22/21 09:00 mcg (1,000 unit) capsule (Vitamin D3) losartan 25 mg tablet 25 mg PO QAM 03/24/21 06/22/21 06/22/21 09:00 hydrocodone 5 mg-acetaminophen 325 1 tab PO Q6H PRN #20 tab 04/13/21 06/22/21 Unknown mg tablet atorvastatin 40 mg tablet 40 mg PO QAM #90 tab 05/15/21 06/22/21 06/22/21 09:00 metoprolol succinate 25 mg 25 mg PO BID #180 tab 06/02/21 06/22/21 06/22/21 09:00 tablet,extended release 24 hr furosemide 40 mg tablet 80 mg PO QAM #180 tab 06/15/21 06/22/21 06/22/21 09:00 spironolactone 25 mg tablet 25 mg PO DAILY #30 tab 06/19/21 06/22/21 06/22/21 09:00 carvedilol 6.25 mg tablet 6.25 mg PO BID 06/22/21 06/22/21 06/22/21 09:00 pantoprazole 40 mg tablet,delayed 40 mg PO DIRECTED 06/22/21 06/22/21 06/22/21 09:00 release Active Medications Generic Name Dose Route Start Last Admin Trade Name Kamilla PRN Reason Stop Dose Admin Atorvastatin Calcium 40 mg 06/23/21 09:00 06/23/21 09:19 Atorvastatin 40 Mg Tab PO 07/23/21 08:59 40 mg QAM JESSIE Administration Carvedilol 6.25 mg 06/22/21 21:00 06/23/21 09:19 Carvedilol 6.25 Mg Tab PO 07/22/21 20:59 6.25 mg BID JESSIE Administration Diltiazem HCl 240 mg 06/23/21 09:00 06/23/21 09:19 Diltiazem Hcl 240 Mg Capcr PO 07/23/21 08:59 240 mg QAM JESSIE Administration Fluoxetine HCl 60 mg 06/23/21 09:00 06/23/21 09:19 Fluoxetine Hcl 20 Mg Cap PO 07/23/21 08:59 60 mg QAM JESSIE Administration Pantoprazole Sodium 40 mg/ 10 mls @ 5 mls/min 06/22/21 21:00 06/23/21 09:18 Syringe IV 07/22/21 20:59 5 mls/min BID JESSIE Administration Ceftriaxone Sodium 2,000 mg/ 70 mls @ 140 mls/hr 06/22/21 21:00 06/22/21 23:25 Dextrose IV 07/02/21 20:59 Infused Q24H JESSIE Infusion Octreotide Acetate 500 mcg/ 105 mls @ 10.5 mls/hr 06/22/21 23:45 06/23/21 09:31 Sodium Chloride IV 07/22/21 23:44 50 mcg/hr .Q10H JESSIE 10.5 mls/hr Administration 50 MCG/HR Metoprolol Succinate 25 mg 06/22/21 21:00 06/23/21 09:19 Metoprolol Succ 25mg Ext Rel Tab PO 07/22/21 20:59 25 mg BID JESSIE Administration Simethicone 80 mg 06/22/21 23:31 06/23/21 01:23 Simethicone 80 Mg Chew PO 07/22/21 23:30 80 mg Q6H PRN Administration bloating Vitamin D 2,000 units 06/23/21 09:00 06/23/21 09:19 Cholecalciferol 1,000 Units 25 Mcg Tab PO 07/23/21 08:59 2,000 units QAM JESSIE Administration Past Medical History Medical History Abdominal pain, acute, epigastric Abnormal computed tomography of abdomen and pelvis Abnormal results of liver function studies Anemia HX OF - IRON INFUSION SEVERAL MONTHS AGO Atrial fibrillation Dx approx 5 years ago - follows w/ Dr. Brewer (s/p remote pulmonary venous ablation X 2, on Eliquis and multiple negative chronotropes Bilateral pleural effusion Cardiac murmur Mild-moderate mitral regurgitation on 12/2019 echo, mild TR and [place] Cholangitis Chronic diastolic congestive heart failure Cirrhosis Diaphoresis Dissection of vertebral artery Encounter for pre-operative examination Fecal incontinence GERD (gastroesophageal reflux disease) History of skin cancer & REMOVED History of sleep apnea HX SLEEP STUDY AND MACHINE, SINCE D/C'D - SLEEP APNEA RESOLVED Hydronephrosis of right kidney Hyperlipemia Hypertension Infection due to ESBL-producing Escherichia coli Kidney stones Lesion of ureter biopsy 12/29/2020 (pt unsure of results) Morbid obesity Nephrolithiasis Pain in the abdomen Perineal itching, female PFO (patent foramen ovale) Suspected per records Recurrent pancreatitis HX OF / 3-4 YR AGO Scalp itch Skin abscess Skin irritation SOB (shortness of breath) on exertion TIA (transient ischemic attack) TIA (transient ischemic attack) 2018- [place] - no residual -NO ISSUES SINCE Tick bite Urinary tract infection Past Family History Family History Grandmother Diabetes Hypertension Mother Heart disease Hypertension Grandfather Stomach cancer Hypertension Father Pancreatic cancer Hypertension Other No family history of adverse response to anesthesia Denies family history of Ovarian cancer Breast cancer Colorectal cancer Past Surgical History Surgical History H/O: hysterectomy History of cardiac radiofrequency ablation D/T AFIB - PT REPORTS HAD 1 BUT MAYBE 2 - NOT SURE DATES ([facility]) History of cardioversion multiple History of colonoscopy History of colostomy History of colostomy reversal History of cystoscopy and Right Ureteroscopy with stent. Following with Dr Rowe. 12/2020. History of esophagogastroduodenoscopy (EGD) History of tubal ligation History of umbilical hernia repair Hx of abdominal surgery FOR REMOVAL OF CYST - PT NOT SURE TYPE Hx of cholecystectomy Hx of laparoscopy Hx of removal of cyst Tubal ligation status Social History Smoking Status: Never smoker tobacco type: cigarettes Hx Alcohol Use: No alcohol intake frequency: a few times a week Hx Substance Use: No substance use type: former substance user, marijuana, crack/cocaine, hallucinogens, sedatives and opiates Substance Use Type Other:: last use was 40 years ago Physical Exam Vital Signs Last Vital Signs Temp 36.4 C L 06/23/21 07:11 Pulse 106 H 06/23/21 07:11 Resp 18 06/23/21 07:11 BP 113/65 06/23/21 07:11 Pulse Ox 92 06/23/21 07:11 Testing Laboratory Results 06/23/21 06:20 06/23/21 06:20 PT 10.6 Seconds (9.0-12.0) 06/23/21 06:20 INR 1.0 (0.9-1.1) 06/23/21 06:20 APTT 21.9 Seconds (21.0-31.0) 06/23/21 06:20 Urine Color Yellow 06/22/21 13:50 Urine Appearance Clear (Clear) 06/22/21 13:50 Urine pH 5.5 (4.5-7.5) 06/22/21 13:50 Ur Specific [place] 1.008 (1.000-1.030) 06/22/21 13:50 Urine Protein Negative (Negative) 06/22/21 13:50 Urine Glucose (UA) Negative (Negative) 06/22/21 13:50 Urine Ketones Negative (Negative) 06/22/21 13:50 Urine Nitrite Negative (Negative) 06/22/21 13:50 Ur Leukocyte Esterase Trace (Negative) H 07/22/21 13:50 Urine WBC (Auto) 1-5 /hpf (0-5) 06/22/21 13:50 Urine RBC (Auto) 0-4 /hpf (0-4) 06/22/21 13:50 U Hyaline Cast (Auto) 1-5 /lpf (0-5) 06/22/21 13:50 U Epithel Cells (Auto) 20-30 /lpf (0-5) H 06/22/21 13:50 Urine Bacteria (Auto) Negative (Negative) 06/22/21 13:50 Blood Type A Positive 06/22/21 22:41 Antibody Screen NEGATIVE 06/22/21 22:41 06/23/21 07:50 POC Glucose 126 H Electrocardiogram Date: 06/22/21 Test Reason : Blood Pressure : / mmHG Vent. Rate : 088 BPM Atrial Rate : 093 BPM P-R Int : 000 ms QRS Dur : 082 ms QT Int : 374 ms P-R-T Axes : 000 -09 011 degrees QTc Int : 452 ms Atrial fibrillation Possible Old Inferior infarct Abnormal ECG When compared with ECG of 16-APR-2021 22:14, Borderline Criteria for Inferior infarct is now Present Confirmed by Trace Brewer ([id number]) on 06/22/2021 3:17:28 PM Chest X-Ray Date: 04/21/21 SINGLE VIEW CHEST CLINICAL HISTORY: Atypical chest pain. FINDINGS: An AP, portable, upright chest radiograph is compared to study dated 04/07/2021. The heart is enlarged. The pulmonary vasculature is noncongested. Chronic interstitial thickening is similar to previous. There is bibasilar scarring/atelectasis. No airspace consolidation or large pleural effusion is identified. No pneumothorax is seen. The skeletal structures are osteopenic. The bony thorax is grossly intact. Degenerative change is seen throughout the thoracic spine. IMPRESSION: Cardiomegaly with no acute cardiopulmonary abnormality. Echocardiogram Date: 04/09/21 EF: 60-65%
--- NOTE | 2021-06-23 09:54 | Gastrointestinal Consultation ---
Date of Consultation June 23, 2021 Assessment & Plan (1) Melena: (2) Acute blood loss anemia: (3) Cirrhosis: Patient is a 71 y.o. female with a history of morbid obesity s/p gastric bypass and HOFFMAN cirrhosis admitted with melena and acute blood loss anemia. Suspect bleeding likely from anastomosis site of prior bypass as no evidence of varices on EGD from January of 2021. * Keep NPO for now. * Continue Protonix 40 mg BID. * EGD today for further evaluation by Dr. Craig. * Further recommendations pending results of testing. Thank you for allowing us to participate in the care of this pleasant patient. If you have any questions or concerns, please do not hesitate to contact us. Supervising Physician Co-Signing Physician Notes I personally evaluated the patient and agree with the findings as documented by MOLLY Wetzel Exam: abd: soft, nt, nd Proceed with EGD. History of Present Illness Reason for Consultation: GIB Requesting Physician: Dr. Cao Attending Physician: Rafael Fish History of Present Illness Patient is a 71 y.o. female with a history of HOFFMAN cirrhosis, Afib, and morbid obesity s/p gastric bypass presenting with melena. 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 In the ER, she was noted to be heme positive. H&H was normal in April of 2021, but was noted to be 11.1/35.5 on admission. Today, however, her H&H has dropped ot 10.4/33.8. The patient has been made NPO and placed on Protonix 40 mg IV BID. She did undergo an upper endoscopy by Dr. Foster in January of this year. She was noted to have erythema and friability of a suture from prior gastric bypass but no esophageal varices. She denies any melena this morning but endorses epigastric pain. No n/v or hematemesis. +fatigue. Allergies Allergy/AdvReac Type Severity Reaction Status Date / Time No Known Allergies Allergy Verified 06/23/21 11:29 Home Medications Medication Instructions Recorded Confirmed Type aspirin 81 mg tablet,delayed 81 mg PO QAM tab 09/02/19 06/22/21 History release apixaban 5 mg tablet (Eliquis) 5 mg PO BID #180 tab 08/25/20 06/22/21 Rx fluoxetine 20 mg capsule 20 mg PO QAM 11/03/20 06/22/21 History fluoxetine 40 mg capsule 40 mg PO QAM 11/03/20 06/22/21 History diltiazem HCl 240 mg 240 mg PO QAM #90 cap 12/09/20 06/22/21 Rx capsule,extended release 24 hr nystatin 100,000 unit/gram topical 1 applic TOPICAL BID PRN #60 g 02/06/21 06/22/21 Rx powder cholecalciferol (vitamin D3) 25 2,000 unit PO QAM cap 02/07/21 06/22/21 History mcg (1,000 unit) capsule (Vitamin D3) losartan 25 mg tablet 25 mg PO QAM 03/24/21 06/22/21 History hydrocodone 5 mg-acetaminophen 325 1 tab PO Q6H PRN #20 tab 04/13/21 06/22/21 Rx mg tablet atorvastatin 40 mg tablet 40 mg PO QAM #90 tab 05/15/21 06/22/21 Rx metoprolol succinate 25 mg 25 mg PO BID #180 tab 06/02/21 06/22/21 Rx tablet,extended release 24 hr furosemide 40 mg tablet 80 mg PO QAM #180 tab 06/15/21 06/22/21 Rx spironolactone 25 mg tablet 25 mg PO DAILY #30 tab 06/19/21 06/22/21 Rx carvedilol 6.25 mg tablet 6.25 mg PO BID 06/22/21 06/22/21 History pantoprazole 40 mg tablet,delayed 40 mg PO DIRECTED 06/22/21 06/22/21 History release Patient History Medical History Abdominal pain, acute, epigastric Abnormal computed tomography of abdomen and pelvis Abnormal results of liver function studies Anemia HX OF - IRON INFUSION SEVERAL MONTHS AGO Atrial fibrillation Dx approx 5 years ago - follows w/ Dr. Brewer (s/p remote pulmonary venous ablation X 2, on Eliquis and multiple negative chronotropes Bilateral pleural effusion Cardiac murmur Mild-moderate mitral regurgitation on 12/2019 echo, mild TR and [place] Cholangitis Chronic diastolic congestive heart failure Cirrhosis Diaphoresis Dissection of vertebral artery Encounter for pre-operative examination Fecal incontinence GERD (gastroesophageal reflux disease) History of skin cancer & REMOVED History of sleep apnea HX SLEEP STUDY AND MACHINE, SINCE D/C'D - SLEEP APNEA RESOLVED Hydronephrosis of right kidney Hyperlipemia Hypertension Infection due to ESBL-producing Escherichia coli Kidney stones Lesion of ureter biopsy 12/29/2020 (pt unsure of results) Morbid obesity Nephrolithiasis Pain in the abdomen Perineal itching, female PFO (patent foramen ovale) Suspected per records Recurrent pancreatitis HX OF / 3-4 YR AGO Scalp itch Skin abscess Skin irritation SOB (shortness of breath) on exertion TIA (transient ischemic attack) TIA (transient ischemic attack) 2018- [place] - no residual -NO ISSUES SINCE Tick bite Urinary tract infection Surgical History H/O: hysterectomy History of cardiac radiofrequency ablation D/T AFIB - PT REPORTS HAD 1 BUT MAYBE 2 - NOT SURE DATES ([place]) History of cardioversion multiple History of colonoscopy History of colostomy History of colostomy reversal History of cystoscopy and Right Ureteroscopy with stent. Following with Dr Rowe. 12/2020. History of esophagogastroduodenoscopy (EGD) History of tubal ligation History of umbilical hernia repair Hx of abdominal surgery FOR REMOVAL OF CYST - PT NOT SURE TYPE Hx of cholecystectomy Hx of laparoscopy Hx of removal of cyst Tubal ligation status Family History Grandmother Diabetes Hypertension Mother Heart disease Hypertension Grandfather Stomach cancer Hypertension Father Pancreatic cancer Hypertension Other No family history of adverse response to anesthesia Denies family history of Ovarian cancer Breast cancer Colorectal cancer Social History Smoking Status: Never smoker Second Hand Exposure: No; Hx Alcohol Use: No Hx Substance Use: No Preferred Language: Greek Communication Ability: Effective Visual Impairment: No Limitations Hearing Ability: Normal Population Health Coach Required: No Beliefs That Will Affect Care: None marital status: Current Living Situation: Spouse 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 status: retired 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 Other 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 Helps Us Care for You: No 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 [employer] Feels Safe at Home: Yes Seatbelt Use: always Sunscreen Use: No Assistive Devices: None Review of Systems Constitutional: as per Subjective / HPI Respiratory: no cough and no dyspnea Cardiovascular: no chest pain and no palpitations Gastrointestinal: as per Subjective / HPI Physical Exam Constitutional: WD/WN, vitals as above Respiratory: normal respiratory effort, lungs clear to auscultation Cardiovascular: Rate/Rhythm: + tachycardic (irregular rhythm) Gastrointestinal (Abdomen): Inspection/Auscultation: normal bowel sounds (abdomen obese) Percussion/Palpation: + abdomen tender (epigastric) and abdomen soft Psychiatric: A+Ox3, euthymic affect Results & Data ([facility]) Vital Signs (Past 12 Hours) Vital Signs Temp Pulse Pulse Resp BP Pulse Ox 06/23/21 07:11 36.4 C L 106 H 18 113/65 92 06/23/21 03:17 90 06/23/21 03:05 36.6 C 98 H 20 111/69 06/23/21 01:31 36.4 C L 97 H 18 131/84 06/22/21 23:45 36.4 C L 95 H 16 136/80 97 06/22/21 23:08 100 H 06/22/21 22:21 93 H 158/85 H Laboratory Results Abnormal lab results 06/22/21 06/22/21 06/22/21 Range/Units 13:50 14:35 14:35 RBC 3.76 L (4.2-5.4) M/uL Hgb 11.1 L (12.0-16.0) g/dL Hct 35.5 L (37-47) % MCHC 31.3 L (32-36) g/dL RDW Std Deviation 49.6 H (36.4-46.3) fL Lymph # (Auto) 1.19 L (1.2-3.4) K/uL Chloride 109 H (98-107) mmol/L Anion Gap 2.0 L (3-11) BUN 32 H (7-18) mg/dl BUN/Creatinine Ratio 28.3 H (10-20) Glucose (70-99) mg/dl POC Glucose (70-99) mg/dl AST 14 L (15-37) U/L ALT (12-78) U/L Alkaline Phosphatase 125 H (45-117) U/L Albumin (3.4-5.0) gm/dl Ur Leukocyte Esterase Trace H (Negative) U Epithel Cells (Auto) 20-30 H (0-5) /lpf 06/22/21 06/22/2106/23/21 Range/Units 21:15 22:41 06:20 RBC 3.51 L (4.2-5.4) M/uL Hgb 10.4 L 10.4 L (12.0-16.0) g/dL Hct 32.6 L 33.8 L (37-47) % MCHC 30.8 L (32-36) g/dL RDW Std Deviation 50.6 H (36.4-46.3) fL Lymph # (Auto) 0.58 L (1.2-3.4) K/uL Chloride (98-107) mmol/L Anion Gap (3-11) BUN (7-18) mg/dl BUN/Creatinine Ratio (10-20) Glucose (70-99) mg/dl POC Glucose 112 H (70-99) mg/dl AST (15-37) U/L ALT (12-78) U/L Alkaline Phosphatase (45-117) U/L Albumin (3.4-5.0) gm/dl Ur Leukocyte Esterase (Negative) U Epithel Cells (Auto) (0-5) /lpf 06/23/21 06/23/21 Range/Units 06:20 07:50 RBC (4.2-5.4) M/uL Hgb (12.0-16.0) g/dL Hct (37-47) % MCHC (32-36) g/dL RDW Std Deviation (36.4-46.3) fL Lymph # (Auto) (1.2-3.4) K/uL Chloride 109 H (98-107) mmol/L Anion Gap (3-11) BUN 30 H (7-18) mg/dl BUN/Creatinine Ratio 25.9 H (10-20) Glucose 132 H (70-99) mg/dl POC Glucose 126 H (70-99) mg/dl AST 161 H (15-37) U/L ALT 84 H (12-78) U/L Alkaline Phosphatase 285 H D (45-117) U/L Albumin 3.2 L (3.4-5.0) gm/dl Ur Leukocyte Esterase (Negative) U Epithel Cells (Auto) (0-5) /lpf PG Care Time/CCT Total # of Minutes Spent Total Time Spent with Patient: Total time spent is greater than 50% in coordination of care (as documented) at patient's floor/unit and/or counseling patient: Coding Level of Care Code 41851 Initial Inpt Care Lvl 3 Diagnoses Melena K92.1 Acute blood loss anemia D62 Cirrhosis K74.60; R18.8 Ascites presence: with ascites Hepatic cirrhosis type: unspecified hepatic cirrhosis (1) Cirrhosis Ascites presence: with ascites Hepatic cirrhosis type: unspecified hepatic cirrhosis Qualified Code(s): K74.60 - Unspecified cirrhosis of liver; R18.8 - Other ascites
[2021-06-23] MEDS ORDERED: LIDOCAINE 2% 2 ML VIAL/AMP(20MG/ML) INFIL ONE (11:46)
[2021-06-23] MEDS ORDERED: PROPOFOL IV EMULSION 10 MG/ML 20 ML VIAL IV ONE (11:46)
--- NOTE | 2021-06-23 12:35 | GI REPORT ---
Patient Name: Tea Dawkins Procedure Date: 06/23/2021 11:45 AM Date of : 1950 Admit Type: Inpatient Age: 71 Gender: Female Attending MD: Alfonso Craig MD Procedure: Upper GI endoscopy Providers: Alfonso Craig MD Referring MD: Rafael Castro Indications: Melena Medicines: Monitored Anesthesia Care Complications: No immediate complications. Estimated blood loss: None. Estimated Blood Loss: Estimated blood loss: none. Estimated blood loss: none. Procedure: Pre-Anesthesia Assessment: - Prior Anticoagulants: The patient has taken no previous anticoagulant or antiplatelet agents. - ASA Grade Assessment: II - A patient with mild systemic disease. After obtaining informed consent, the endoscope was passed under direct vision. Throughout the procedure, the patient's blood pressure, pulse, and oxygen saturations were monitored continuously. The Endoscope was introduced through the mouth, and advanced to the second part of duodenum. The upper GI endoscopy was accomplished without difficulty. The patient tolerated the procedure well. Findings: The examined esophagus was normal. The anastomosis was normal as well as the remnant stomach. The examined duodenum was normal. No evidence of blood nor active bleeding throughout entire exam. Impression: - Normal esophagus. - Normal anastomosis. - Normal examined duodenum. - No specimens collected. Recommendation: - [facility] care. - Advance diet as tolerated today. -supportive care, trend H/H, transfuse prn -will likely need colonoscopy as an outpatient for further evaluation. Alfonso Craig MD 06/23/2021 12:35:03 PM This report has been signed electronically. Note Initiated On: 06/23/2021 11:45 AM Number of Addenda: 0 I attest to the content of the Intraoperative Record and orders documented therein, exceptions below {[id number]}
--- NOTE | 2021-06-23 13:19 | Anesthesiology Progress Note ---
Date of Service June 23, 2021 Anesthesia Post Procedure Vital Signs Vital Signs: Temp Pulse Pulse Resp BP BP Pulse Ox 06/23/21 13:05 69 16 123/67 93 06/23/21 12:50 76 12 116/69 94 06/23/21 12:35 95 H 12 88/52 L 95 06/23/21 11:31 36.8 C 93 H 18 154/92 H 94 06/23/21 07:11 36.4 C L 106 H 18 113/65 92 06/23/21 07:00 107 H 06/23/21 03:17 90 06/23/21 03:05 36.6 C 98 H 20 111/69 06/23/21 01:31 36.4 C L 97 H 18 131/84 06/22/21 23:45 36.4 C L 95 H 16 136/80 97 06/22/21 23:08 100 H 06/22/21 22:21 93 H 158/85 H 06/22/21 21:26 98 H 142/93 H 06/22/21 20:58 97 H 06/22/21 20:50 36.5 C 102 H 18 196/116 H 95 06/22/21 19:29 36.7 C 94 H 21 140/88 97 06/22/21 19:00 96 H 16 140/88 96 06/22/21 18:08 96 H 17 129/78 97 06/22/21 18:06 96 H 20 95 06/22/21 17:00 95 H 19 160/98 H 96 06/22/21 16:00 97 H 17 151/93 H 98 06/22/21 15:30 95 H 18 151/118 H 97 06/22/21 14:49 87 20 153/95 H 97 06/22/21 13:45 14 148/95 H 98 Pain Intensity Abdomen: Pain Intensity: 10 Transfer of Care Handoff Completed per policy Notes Mental Status: alert / awake / arousable and participated in evaluation Patient Amnestic to Procedure: Yes Nausea / Vomiting: adequately controlled Pain: adequately controlled Airway Patency, RR, SpO2: stable & adequate BP & HR: stable & adequate Hydration State: stable & adequate Anesthetic Complications: no major complications apparent and Pt Satisfied with anesthetic care
--- NOTE | 2021-06-23 16:59 | Hospitalist Progress Note ---
Date of Service June 23, 2021 Assessment & Plan (1) Melena: Plan: likely small bowel in origin; EGD neg for source H/H stable (2) Acute blood loss anemia: Plan: mild, <1gm drop heme + stool, melena reported, EGD neg so small bowel source suspected (3) Abdominal pain: Plan: intestinal spasm? passed a small kidney stone given her right-sided renal collection system dilatation? other? either way resolved (4) Cirrhosis: Plan: 2nd HOFFMAN compensated no hepatic encephalopathy either (5) B12 deficiency: Plan: 2nd gastric bypass status b12 level <300 recently (6) Hypertension: Plan: no issues (7) Iron deficiency: Plan: 2nd gastric bypass status ferritin 15 recently (8) GERD (gastroesophageal reflux disease): (9) Anticoagulant long-term use: (10) Hyperlipidemia LDL goal <70: (11) Permanent atrial fibrillation: Plan: rates acceptable (12) Chronic diastolic congestive heart failure: Plan: compensated (13) Morbid obesity: Plan: BMI 44 Plan: 1. clears, then advance as tolerated 2. d/c PPI drip - no bleed source found 3. d/c octreotide - no varices on EGD 4. venofer 300mg IV x 1 5. b12 injection - 1000mcg daily x 2 doses; then resume as outpatient 6. cbc am 7. cmp am 8. hold eliquis 1 more day updated bedside home tomorrow?? Admission and Anticipated Discharge Date Admission Date: June 22, 2021 Subjective patient feeling well post-EGD no abd pain no stools while hospitalized no emesis no nausea had high epigastric discomfort at home while having the melena stools never had flank pain no urinary symptoms was to have IV iron this Saturday at [facility] has had b12 injections in the past Review of Systems Constitutional: no fever and no chills Cardiovascular: no chest pain Gastrointestinal: no abdominal pain, no nausea, no vomiting and no blood in stools (no bright red blood ) Physical Exam Physical Exam: Gen: NAD, a/o x 3 skin: no rash mouth: MMM heart: RRR, s1 s2 lungs: CTA b/l abd: soft, NT, ND, BS+, no hepatomegaly ext: no edema neuro: no asterixis Results & Data Results & Data ([facility]) Vital Signs (Past 12 Hours) Vital Signs Temp Pulse Pulse Resp BP Pulse Ox 06/23/21 15:14 36.4 C L 77 19 119/80 95 06/23/21 13:05 69 16 123/67 93 06/23/21 12:50 76 12 116/69 94 06/23/21 12:35 95 H 12 88/52 L 95 06/23/21 11:31 36.8 C 93 H 18 154/92 H 94 06/23/21 07:11 36.4 C L 106 H 18 113/65 92 06/23/21 07:00 107 H Laboratory Results Hb 11.1 (at admission) this afternoon Hb 10.6 Diagnostic Findings EGD findings reviewed PG Care Time/CCT Total # of Minutes Spent Total Time Spent with Patient: Total time spent is greater than 50% in coordination of care (as documented) at patient's floor/unit and/or counseling p atient: Coding Level of Care Code 28177 Subseq Hosp Care Lvl 3 Diagnoses Cirrhosis K74.60 Hypertension I10 Hypertension type: essential hypertension GERD (gastroesophageal reflux disease) K21.9 Esophagitis presence: without esophagitis Anticoagulant long-term use Z79.01 Hyperlipidemia LDL goal <70 E78.5 Permanent atrial fibrillation I48.21 Chronic diastolic congestive heart failure I50.32 Morbid obesity E66.01 Abdominal pain R10.9 Abdominal location: unspecified location Acute blood loss anemia D62 Melena K92.1 Iron deficiency E61.1 B12 deficiency E53.8 (1) GERD (gastroesophageal reflux disease) Esophagitis presence: without esophagitis Qualified Code(s): K21.9 - Gastro- esophageal reflux disease without esophagitis (2) Abdominal pain Abdominal location: unspecified location Qualified Code(s): R10.9 - Unspecified abdominal pain (3) Hypertension Hypertension type: essential hypertension Qualified Code(s): I10 - Essential (primary) hypertension
[2021-06-23 17:30] LABS: Hematocrit (blood only) 34.3 % (37-47); Hemoglobin 10.6 g/dL (12.0-16.0)
[2021-06-23] MEDS ORDERED: IRON SUCROSE 300 MG in SODIUM CHLORIDE 0.9% 250 ML IV ONE (17:30)
[2021-06-23] MEDS: CYANOCOBALAMIN 1000 MCG/ML VIAL IM SCH (18:15)
[2021-06-24] MEDS: FLUoxetine HCL 20 MG CAP PO SCH (08:27)
[2021-06-24] MEDS: CHOLECALCIFEROL 1,000 UNITS 25 MCG TAB PO SCH (08:27)
[2021-06-24] MEDS: dilTIAZem HCL 240 MG CAPCR PO SCH (08:27)
[2021-06-24] MEDS: CYANOCOBALAMIN 1000 MCG/ML VIAL IM SCH (08:28)
[2021-06-24] MEDS: carvediloL 6.25 MG TAB PO SCH (08:28)
[2021-06-24] MEDS: ATORVASTATIN 40 MG TAB PO SCH (08:28)
[2021-06-24] MEDS ORDERED: PANTOprazole 40 MG TAB PO SCH (09:00)
[2021-06-24 10:29] LABS: Hematocrit (blood only) 33.6 % (37-47); Hemoglobin 10.5 g/dL (12.0-16.0); Mean Corpuscular Hgb Conc 31.3 g/dL (32-36); Mean Platelet Volume 8.6 fL (7.4-10.4); Platelet Count 223 K/uL (130-400); RDW Coefficient of Variation 14.8 % (11.5-14.5); RDW Standard Deviation 50.8 fL (36.4-46.3); White Blood Count 4.46 K/uL (4.8-10.8)
[2021-06-24 10:48] LABS: Albumin Level 3.1 gm/dl (3.4-5.0); BUN Creatinine Ratio 21.3 (10-20); Calcium 8.4 mg/dl (8.5-10.1); Creatinine Clr Calc Pharmacy 64.2 ml/min; Est GFR (African American) 66.6 ml/min; Est GFR (Non-African American) 57.4 ml/min; Potassium 4.4 mmol/L (3.5-5.1)
[2021-06-24 10:51] LABS: Bilirubin,Total 0.5 mg/dl (0.2-1); Globulin 3.2 gm/dl (2.5-4.0); Total Protein 6.3 gm/dl (6.4-8.2)
--- NOTE | 2021-06-24 13:35 | Discharge Summary ---
Date of Service date of admission - June 22, 2021 date of discharge - June 24, 2021 Admission HPI Per Admitting Provider Tea is a 71-year-old female with a notable history of nonalcoholic hepatic cirrhosis followed by [facility], previous Ngoc-en-Y gastric bypass, hypertension, GERD, previous TIA, vertebral artery dissection, mesenteric fibrosis, atrial fibrillation on chronic anticoagulation, heart failure with preserved ejection fraction who presented to [facility] for evaluation of melanotic stools. Patient said that she felt relatively in her normal health up through this morning, where she did endorse passing two darkly discolored stools. Although she has never had these before, she recognize that they may be a sign of GI bleed, so it was suggested by her primary care physician to come in to be evaluated. She denied any new abdominal pain, loss of appetite, nausea, vomiting over the last several days. Further, she denied any lightheadedness, dizziness, new shortness of breath, or symptoms of presyncope today or over the last several days. Of note, she does receive her hepatology care through [facility]. During her recent visit, she was recommended to transition onto Coreg and off of her ARBwhich is currently in process. She has been taking her medications as prescribed. In the emergency room, she was found to be hemodynamically stable with a hemoglobin of 11.1, just slightly decreased from 11.4 several days ago. Hemoccult was positive. She was started on IV Protonix and given a single dose of octeotride. Medicine was engaged for admission for potential UGIB. Principal Diagnosis Melena stools, negative EGD, source of bleeding uncertain but presumed small bowel Severe iron deficiency Vitamin B12 deficiency Discharge Exam Gen: obese, NAD Eyes: nonicteric Mouth: MMM Heart: irregular, s1, s2 Lungs: CTA b/l Abd: soft, NT, ND, BS+ Ext: no edema Discharge Data Allergies Allergy/AdvReac Type Severity Reaction Status Date / Time No Known Allergies Allergy Verified 07/04/21 14:34 Consultations [facility] Procedures Performed Operation Date: 06/23/21 16:30 Actual Procedures p Esophagogastroduodenoscopy - Alfonso Craig MD - Normal esophagus. - Normal anastomosis. - Normal examined duodenum. - No specimens collected Ordered Studies Abdomen/Pelvis CT 06/22/21 14:38 CT abd pelvis IV con only CLINICAL HISTORY: cirrhosis, GI bleed COMPARISON STUDY: 04/16/2021 TECHNIQUE: Patient was scanned in a dynamic helical fashion during intravenous administration of 94 cc of Optiray 320. A dose lowering technique was utilized adhering to the principles of ALARA. CT DOSE: 1510.30 mGy.cm FINDINGS: Lower chest: There is a small right pleural effusion. There are right basilar compressive atelectatic changes. Liver: The liver demonstrates a slightly nodular contour suggestive of underlying hepatic cirrhosis. There is a 9 mm hypodense nodule within the right hepatic lobe inferiorly. There is interval decrease in the size of a 1 cm exophytic nodule arising from the right lobe the liver inferiorly. Gallbladder: Surgically absent Spleen: Normal in size and attenuation. Pancreas: Unremarkable. Adrenal glands: Unremarkable. Kidneys: There are multiple nonobstructing left renal calculi. There are bilateral hypodense renal lesions consistent with cysts. There is mild dilatation of the right renal collecting system with equivocal mild uroepithelial thickening Bowel: There are no transition zones to indicate bowel obstruction. There is no evidence of acute diverticulitis. There are postsurgical changes of a gastric bypass and Ngoc-en-Y anastomosis. The appendix appears normal. Peritoneum: There is no intraperitoneal free air or abdominal ascites. Vasculature: The abdominal aorta is normal in course and caliber. Adenopathy: None. Pelvic viscera: The uterus is surgically absent. Skeletal structures: No destructive osseous lesions are seen. IMPRESSION: 1. Suspected hepatic cirrhosis 2. Indeterminate 9 mm hypodense nodule within the right lobe the liver inferiorly 3. Postsurgical changes of a gastric bypass and Ngoc-en-Y anastomosis 4. Colonic diverticulosis. No evidence of acute diverticulitis. Normal appendix. 5. Left-sided nephrolithiasis 6. Mild dilatation the right renal collecting system. Equivocal mild uroepithelial thickening of the right renal pelvis. Interval removal of the previously identified double pigtail right-sided nephroureteral stent 7. Right pleural effusion ACT 112: Negative or not required by law. Electronically signed by: Shahid Dempsey M.D. 06/22/2021 3:57 PM KUB X-Ray 06/23/21 01:25 KUB CLINICAL HISTORY: Abdominal pain. COMPARISON STUDY: CT of the abdomen and pelvis June 22, 2021. FINDINGS: This exam is compromised by suboptimal penetration. Note is made of cholecystectomy clips as well as postoperative findings from right gastric bypass. There is contrast within the bladder and left collecting system from recent contrast-enhanced CT. Small right pleural effusion is noted. IMPRESSION: No evidence for a bowel obstruction. Exam compromised by suboptimal penetration. ACT 112: Negative or not required by law. Electronically signed by: Robe Patterson M.D. 06/23/2021 7:18 AM Hospital Course (1) Melena: Presenting hemoglobin was 11.1. Hemoglobin on AM of discharge was 10.5. She was seen by [facility], Dr Alfonso Craig, and underwent EGD. EGD was entirely normal; no source for her melena/GI bleeding was found. She had mild associated abdominal pain at time of presentation that promptly resolved. See below. She will need a repeat CBC within a few days of hospital discharge to ensure stability. We discussed that her melena may have been from a small bowel bleed for which a capsule endoscopy could be considered if deemed a candidate for such. [facility] also discussed possible outpatient colonoscopy. (2) Acute blood loss anemia: mild, <1gm drop heme + stool, melena reported, EGD neg so small bowel source suspected (3) Abdominal pain: intestinal spasm? passed a small kidney stone given her right-sided renal collection system dilatation? other? either way resolved (4) Cirrhosis: 2nd HOFFMAN compensated no hepatic encephalopathy while hospitalized (5) B12 deficiency: 2nd gastric bypass status b12 level <300 recently received 2 injections of vitamin B12 1000mcg each I recommended she increase the frequency of her outpatient b12 injections for a period of time, then transition to once monthly thereafter (6) Hypertension: no issues while hospitalized the following were advised - * stop losartan * increase coreg to 12.5mg bid * lower metoprolol from BID to once daily dosing (7) Iron deficiency: 2nd gastric bypass status ferritin 15 recently received IV venofer without incident while here (8) GERD (gastroesophageal reflux disease): cont PPI (9) Anticoagulant long-term use: patient will hold eliquis at time of discharge due to the heme+ stool she will then report for a CBC in the week post-discharge if H/H stay stable can likely resume eliquis at that time (10) Hyperlipidemia LDL goal <70: remains on lipitor (11) Permanent atrial fibrillation: rates were acceptable at rest but were high with activity. thus, she was instructed to increase her coreg to 12.5mg BID and continue on diltizem 240mg daily. her metoprolol was lowered from BID dosing to daily dosing (the metoprolol was being weaned off by cardiology prior to admission). she will hold eliquis temporarily until repeat cbc is obtained post-discharge. (12) Chronic diastolic congestive heart failure: compensated during the stay (13) Morbid obesity: BMI 44 Total Time Total Time Spent Total Time Spent (In Minutes): 45 Discharge Plan Discharge Items Patient Disposition: Home - Self-Care Reason For Visit: Abdominal pain and melena stools Discharge Diagnosis: 1. melena/dark stool (contains blood) - resolved. Exact cause uncertain. Your upper GI tract (esophagus, gastric pouch, etc) was normal on EGD.0 The bleeding may have been from a spot in your small intestine. 2. abdominal pain - likely due to #1 above but can't rule out a tiny, passed kidney stone. 3. iron and vitamin B12 deficiency. 4. atrial fibrillation. Activity: Resume your previous activity Activity Comment: as tolerated Non-emergency contact: Primary Care Provider and Communications Systems Engineer Call non-emergency contact if: you have any medication questions, your symptoms worsen, your pain is not controlled, your pain is worsening, your pain is unusual for you and your pain is concerning for you Follow-up/Referrals: Trace Brewer MD [Physician] - (see Dr Brewer or SKYLAR Pettit - within a week - to recheck your heart medications and a.fib) Donal Guevara MD [Primary Care Provider] - (see Dr Guevara 1-2 weeks ) Diet: Heart Healthy Fluids: 1800ml (7 cups) Addtl Attending Provider Instructions: Mrs Dawkins, Jose Antonio were admitted for dark-appearing stools that indeed contained blood. You also had had abdominal pain. You were seen by Norman ROCKWELL and underwent an EGD (upper endoscopy) to exclude ulcers and other causes of bleeding. This test was completely normal. Thus, it is suspected that the bleeding came from another portion of your small intestine. For the remainder of your stay your blood counts remained very stable. Your discharge hemoglobin level is 10.5. You do have significant iron deficiency and we gave you IV iron on 06/23/21. You can likely skip your iron infusion on Saturday and have it a week later or so. You also have vitamin B12 deficiency and we gave you shots. Recommendations - 1. HOLD your eliquis for now. 2. Ok to resume your baby aspirin. 3. Do not take atha-nfl-aipvyzo motrin, ibuprofen, etc. 4. Ok to resume a normal diet. 5. Have a blood draw on 06/26/21. If this blood work is normal you can likely resume your eliquis early this week. Wait to hear your test results before resuming your eliquis, however. 6. A.fib/heart medications -- * INCREASE your carvedilol to 12.5mg twice daily, first dose tonight * LOWER your metoprolol to once daily (from twice daily); take your next dose tomorrow morning; Dr Brewer or Ms Perkins can wean you off the rest next week * STOP your losartan 7. continue to check daily weights at home. Call your steel fitter if you gain more than 2-3 pounds over 1-2 days. This is usually a sign of fluid retention. Follow-up - see separate section Return to [facility] if - 1. you have worsening / recurrent abdominal pain 2. you have bright red bleeding from your rectum, persistent dark stools (you may have 1-2 more bowel movements that look dark but should resolve by Saturday/Saturday), or you vomit dark material or bright red blood 3. you have shortness of breath 4. any other concerns Stay well! Dr Fish Pending Studies at Discharge: No Stand-Alone Forms: My [facility], Smoking Cessation Medications and DC Order Prescriptions: Continued cholecalciferol (vitamin D3) [Vitamin D3] 25 mcg (1,000 unit) capsule 2,000 unit PO QAM RF: 0 fluoxetine [Prozac] 40 mg capsule 40 mg PO QAM RF: 0 fluoxetine [Prozac] 20 mg capsule 20 mg PO QAM RF: 0 pantoprazole [Protonix] 40 mg tablet,delayed release (DR/EC) 40 mg PO BID RF: 0 Discontinued Eliquis 5 mg tablet 5 mg PO BID Qty: 180 RF: 3 metoprolol succinate 25 mg tablet extended release 24 hr 25 mg PO BID Qty: 180 RF: 3 losartan 25 mg tablet 25 mg PO QAM RF: 0 carvedilol 6.25 mg tablet 6.25 mg PO BID RF: 0 No Action aspirin [Aspirin Low Dose] 81 mg tablet,delayed release (DR/EC) 81 mg PO Q OTHER DAY RF: 0 metoprolol succinate [Toprol XL] 50 mg tablet extended release 24 hr 25 mg PO QAM RF: 0 furosemide [Lasix] 40 mg tablet 80 mg PO QAM RF: 0 atorvastatin [Lipitor] 40 mg tablet 40 mg PO QAM RF: 0 carvedilol [Coreg] 12.5 mg tablet 12.5 mg PO BID RF: 0 diltiazem HCl [Cardizem CD] 240 mg capsule,extended release 24hr 240 mg PO QAM RF: 0 spironolactone [Aldactone] 25 mg tablet 25 mg PO QAM RF: 0 nystatin [Nystop] 100,000 unit/gram powder 1 applic topical BID PRN (Reason: Candidiasis) RF: 0 Discharge Orders: Discharge Order (Routine); Ordered 06/24/21 Ordered By: Rafael Fish Admission Data Admit Date/Time: 06/22/21 17:43 Attending Provider: Rafael Fish Admit Provider: Darius Cao Primary Care Provider: Donal Guevara Other Providers: Real Holm ; Ashwin Foster ; Fara Fox ; Rebeka Gonzalez ; Alfonso Craig Other Interventions: Discharge Summary Assessment (RN) Last Done: 06/24/21 13:38 Coding Level of Care Code D/C DAY MANAGEMENT >30 MINS Diagnoses Melena K92.1 Acute blood loss anemia D62 Abdominal pain R10.9 Abdominal location: unspecified location Cirrhosis K74.60 B12 deficiency E53.8 Hypertension I10 Hypertension type: essential hypertension Iron deficiency E61.1 GERD (gastroesophageal reflux disease) K21.9 Esophagitis presence: without esophagitis Anticoagulant long-term use Z79.01 Hyperlipidemia LDL goal <70 E78.5 Permanent atrial fibrillation I48.21 Chronic diastolic congestive heart failure I50.32 Morbid obesity E66.01
== END 2021-06-24 14:01 | disposition home or self-care (01) | DRG 378 ==
LOC: ED 12:43 → 2E 17:43 → SUATTDRO 17:43 → 2E 19:35

== ENCOUNTER 2021-12-19 09:39 | Inpatient (IN) ==
[2021-12-19] MEDS ORDERED: MoRPHine SULFATE 4 MG/ML 1 ML CARP\\VIAL IV STA (10:03)
[2021-12-19] MEDS ORDERED: ONDANSETRON INJ 2 MG/ML 2 ML VIAL IV STA ×2 (10:03→16:03)
--- NOTE | 2021-12-19 10:04 | Emergency Department Note ---
Impression & Plan Abdominal pain, Atrial fibrillation, Liver cirrhosis secondary to CALVILLO, Abdominal mass, CHF (congestive heart failure) ED Provider Note NAME: GUSTABO MCKEON AGE: 71 SEX: F : 1950 ARRIVES VIA: Walk-In INFORMANT: Patient ED PROVIDER(S): Darius Zimmerman DO CHIEF COMPLAINT: abdominal pain HPI: Patient is a 71-year-old female with a past medical history of CKD, CHF, Calvillo, A. fib on Eliquis presents to the ER for bilateral lower abdominal pain which has been present for the past several weeks. She notes she saw her PCP today and was referred over to the ER. She has also gained 7 pounds in the past week and has increased edema in the lower extremities. She stopped her Lasix per her physician's direction during the same time. She denies any headache or change in vision. No chest pain. She notes she does have a history of A. fib and did take her medications this morning. No dysuria, urgency, or frequency. No fevers. She does have some intermittent shortness of breath but none now. No other exacerbating remitting factors. ROS: See above HPI for pertinent positives & negatives. A total of 10 systems reviewed and were otherwise negative. PAST MEDICAL HISTORY:See Below PAST SURGICAL HISTORY:See Below FAMILY HISTORY:See Below SOCIAL HISTORY:See Below HOME MEDICATIONS:See Below ALLERGIES:See Below VITALS:See Below PHYSICAL EXAMINATION: GENERAL: Sitting up in bed, alert, well-appearing, obese, no acute distress talking full sentences EYE EXAM: normal conjunctiva. PERRL and EOM's grossly intact. OROPHARYNX: Mask in place NECK: supple, no nuchal rigidity, no adenopathy, non-tender LUNGS: Clear to auscultation. Normal chest wall mechanics HEART: Tachycardic and irregular regular, S1 normal and S2 normal ABDOMEN: abdomen soft, tender in the bilateral lower abdomen, normo-active bowel sounds, no masses, no rebound or guarding. BACK: Back is symmetrical on inspection and there is no deformity, no midline tenderness, no CVA tenderness. SKIN: no rashes and no bruising UPPER EXTREMITIES: upper extremities are grossly normal. LOWER EXTREMITIES: Calves are equal bilateral with pitting edema NEURO EXAM: Normal sensorium, cranial nerves II-XII grossly intact, normal speech, no gross weakness of arms, no gross weakness of legs. MEDICAL DECISION MAKING: Patient is a 71-year-old female who presents to the ER for severe abdominal pain. IV was established blood work was obtained. Referred in by PCP. Labs show no significant leukocytosis or anemia. BMP with creatinine 1.3. LFTs bilirubin are unremarkable. Troponin was negative. Lipase was unremarkable. UA was clean. COVID was negative. CT abdomen pelvis shows likely mesenteric mass with stranding. Do favor this to likely cause her symptoms. She did drop her pressures and was given IV fluids although she has a component of CHF. She was given some morphine as well due to the recurrent severe pain. She is updated at bedside. Discussed with the hospitalist and she will be admitted for further work-up. Initially she was A. fib with RVR but as her pain was controlled to slow down to appropriate rate. Triage Nursing notes reviewed. Limited review of prior medical records performed Vital Signs: reviewed and remarkable for no significant abnormalities Differential diagnosis: Differential diagnoses includes but is not limited to gastritis, peptic ulcer disease, GERD, gallbladder disease, pancreatitis, small bowel obstruction, acute coronary syndrome, pericarditis, ischemic bowel, irritable bowel disease, irritable bowel syndrome, appendicitis, diverticulitis, malignancy, hernia, urinary tract infection, torsion, perforation, trauma, infectious. ER treatment provided: See below Diagnostics interpreted by me: ECG: A. fib RVR rate of 125 Left axis No PVCs QTC 447 Cardiac Monitoring: An order was placed for continuous cardiac monitoring. The monitor shows a rate of 92 with A. fib rhythm. Laboratory studies: As stated above and show below. Imaging studies: CT abdomen pelvis as discussed above Consultation(s): Discussed with Dr. Dumont for further evaluation Procedures: none Critical Care: None Past Med/Surg History Medical History Abdominal pain, acute, epigastric Abnormal computed tomography of abdomen and pelvis Abnormal results of liver function studies ARIADNE (acute kidney injury) Anemia Anemia HX OF - IRON INFUSION SEVERAL MONTHS AGO Anticoagulant long-term use Atrial fibrillation Dx approx 5 years ago - follows w/ Dr. Brewer (s/p remote pulmonary venous ablation X 2, on Eliquis and multiple negative chronotropes Bilateral pleural effusion Cardiac murmur Mild-moderate mitral regurgitation on 12/2019 echo, mild TR and NH Cholangitis Chronic pain of inguinal region Cirrhosis Cirrhosis Diaphoresis Dissection of vertebral artery Encounter for pre-operative examination Fecal incontinence GERD (gastroesophageal reflux disease) History of skin cancer & REMOVED History of sleep apnea HX SLEEP STUDY AND MACHINE, SINCE D/C'D - SLEEP APNEA RESOLVED Hydronephrosis of right kidney Hyperlipemia Hyperlipidemia LDL goal <70 Hypertension Infection due to ESBL-producing Escherichia coli Kidney stones Lesion of ureter biopsy 12/29/2020 (pt unsure of results) Melena Mesenteric mass Nephrolithiasis Pain in the abdomen Perineal itching, female Permanent atrial fibrillation PFO (patent foramen ovale) Suspected per records Recurrent pancreatitis HX OF / 3-4 YR AGO Scalp itch Skin abscess Skin irritation SOB (shortness of breath) on exertion TIA (transient ischemic attack) TIA (transient ischemic attack) 2018- [place] - no residual -NO ISSUES SINCE Tick bite Urinary tract infection Surgical History H/O: hysterectomy History of cardiac radiofrequency ablation D/T AFIB - PT REPORTS HAD 1 BUT MAYBE 2 - NOT SURE DATES ([facility]) History of cardioversion multiple History of colonoscopy History of colostomy History of colostomy reversal History of cystoscopy and Right Ureteroscopy with stent. Following with Dr Rowe. 12/2020. History of esophagogastroduodenoscopy (EGD) History of tubal ligation History of umbilical hernia repair Hx of abdominal surgery FOR REMOVAL OF CYST - PT NOT SURE TYPE Hx of cholecystectomy Hx of laparoscopy Hx of removal of cyst Tubal ligation status Family History Grandmother Diabetes Hypertension Mother Heart disease Hypertension Grandfather Stomach cancer Hypertension Father Pancreatic cancer Hypertension Other No family history of adverse response to anesthesia Denies family history of Ovarian cancer Breast cancer Colorectal cancer Social History Smoking Status: Former smoker Tobacco Type: Cigarettes Second Hand Exposure: No; Hx Alcohol Use: No Hx Substance Use: No Preferred Language: Scottish Communication Ability: Effective Visual Impairment: No Limitations Hearing Ability: Normal Insurance Instructor Required: No Beliefs That Will Affect Care: None marital status: Current Living Situation: Spouse 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 status: retired 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 other: [employer] Feels Safe at Home: Yes caffeine: No Dental Care, Regularly: Yes Physical Activity Frequency: Does not Exercise Seatbelt Use: always Sunscreen Use: No Assistive Devices: None Allergies Allergies Allergy/AdvReac Type Severity Reaction Status Date / Time No Known Allergies Allergy Verified 12/19/21 10:52 Home Meds Home Medications Medication Instructions Recorded Confirmed cholecalciferol (vitamin D3) 25 2,000 unit PO QAM cap 02/07/21 12/19/21 mcg (1,000 unit) capsule (Vitamin D3) atorvastatin 40 mg tablet (Lipitor) 40 mg PO QAM 06/30/21 12/19/21 nystatin 100,000 unit/gram topical 1 applic TOPICAL HS 06/30/21 12/19/21 powder (Nystop) pantoprazole 40 mg tablet,delayed 40 mg PO DAILYBB tab 10/16/21 12/19/21 release (Protonix) furosemide 40 mg tablet (Lasix) 40 mg PO QAM tab 12/07/21 12/19/21 Previous Rx's Medication Instructions Recorded bupropion HCl 150 mg 24 hr tablet, 150 mg PO QAM #30 tab 09/07/21 extended release spironolactone 25 mg tablet 25 mg PO QAM #90 tab 09/14/21 (Aldactone) apixaban 2.5 mg tablet 2.5 mg PO BID #180 tab 09/29/21 carvedilol 12.5 mg tablet (Coreg) 12.5 mg PO BID #180 tab 10/23/21 diltiazem HCl 240 mg 240 mg PO QAM #90 cap 10/31/21 capsule,extended release 24 hr (Cardizem CD) Results & Data (ED) Vital Signs Vital Signs - 24 hr 12/19/21 09:42 12/19/21 10:10 12/19/21 11:11 Temperature 37.3 C Temperature Source Temporal Artery Scan Pulse Rate 97 H 110 H Pulse Rate [Apical] 71 Pulse Rhythm Irregular Pulse Rhythm [Apical] Regular Pulse Strength [Apical] Normal Respiratory Rate 20 20 20 Respiratory Effort / Characteristics Non-Labored Non-Labored Spontaneous Respiratory Depth Normal Normal Respiratory Pattern Regular Blood Pressure 140/90 Blood Pressure [Left Arm] 86/49 L Blood Pressure Mean 106 Blood Pressure Mean [Left Arm] 61 Blood Pressure Position [Left Arm] Sitting Pulse Oximetry 97 96 95 Oxygen Delivery Method Room Air Room Air Room Air Oxygen Flow Rate Sepsis Recent Fever Within 48 Hours No Sepsis New/Unexplained Change in Mental Status N/A Sepsis Action Taken by Nursing No Action Required 12/19/21 11:49 12/19/21 13:22 Temperature Temperature Source Pulse Rate Pulse Rate [Apical] 87 Pulse Rhythm Pulse Rhythm [Apical] Irregular Pulse Strength [Apical] Normal Respiratory Rate 18 Respiratory Effort / Characteristics Non-Labored Spontaneous Respiratory Depth Normal Respiratory Pattern Regular Blood Pressure Blood Pressure [Left Arm] 100/54 L Blood Pressure Mean Blood Pressure Mean [Left Arm] 69 Blood Pressure Position [Left Arm] Sitting Pulse Oximetry 100 100 Oxygen Delivery Method Nasal Cannula Room Air Oxygen Flow Rate 2 Sepsis Recent Fever Within 48 Hours Sepsis New/Unexplained Change in Mental Status Sepsis Action Taken by Nursing Laboratory Data Result diagrams: 12/19/21 10:05 12/19/21 10:05 Lab Results 12/19/21 12/19/21 12/19/21 Range/Units 10:05 10:05 10:05 WBC 6.69 (4.8-10.8) K/uL RBC 4.30 (4.2-5.4) M/uL Hgb 12.5 (12.0-16.0) g/dL Hct 40.3 (37-47) % MCV 93.7 (80-100) fL MCH 29.1 (25-34) pg MCHC 31.0 L (32-36) g/dL RDW Std Deviation 54.9 H (36.4-46.3) fL RDW Coeff of Rodrigo 16.1 H (11.5-14.5) % Plt Count 298 (130-400) K/uL MPV 9.2 (7.4-10.4) fL Immature Gran % (Auto) 0.1 % Neut % (Auto) 74.8 % Lymph % (Auto) 12.4 % [place] % (Auto) 11.1 % Eos % (Auto) 1.3 % Baso % (Auto) 0.3 % Neut # (Auto) 5.00 (1.4-6.5) K/uL Lymph # (Auto) 0.83 L (1.2-3.4) K/uL [place] # (Auto) 0.74 H (0.11-0.59) K/uL Eos # (Auto) 0.09 (0-0.5) K/uL Baso # (Auto) 0.02 (0-0.2) K/uL Immature Gran # (Auto) 0.01 (0.00-0.02) K/uL PT 10.4 (9.0-12.0) Seconds INR 1.0 (0.9-1.1) Sodium 140 (136-145) mmol/L Potassium 4.8 (3.5-5.1) mmol/L Chloride 107 (98-107) mmol/L Carbon Dioxide 27 (21-32) mmol/L Anion Gap 6 (3-11) BUN 25 H (6-23) mg/dl Creatinine 1.38 H (0.6-1.2) mg/dl Est Cr Clr Drug Dosing 46.4 ml/min Est GFR ( Amer) 45.1 ml/min Est GFR (Non-Af Amer) 38.9 ml/min BUN/Creatinine Ratio 18.1 (10-20) Glucose 90 (70-99(Fasting)) mg/dl Calcium 9.2 (8.5-10.1) mg/dl Total Bilirubin 0.7 (0.2-1.0) mg/dl AST 18 (13-39) U/L ALT 15 (7-52) U/L Alkaline Phosphatase 113 H (34-104) U/L Troponin I < 0.03 (0-0.04) ng/ml B-Natriuretic Peptide (0-100) pg/ml Total Protein 6.7 (6.0-8.3) gm/dl Albumin 3.8 (3.4-5.0) gm/dl Globulin 2.9 (2.5-4.0) gm/dl Albumin/Globulin Ratio 1.3 (0.9-2) Lipase 24 (11-82) U/L Urine Color Urine Appearance (Clear) Urine pH (4.5-7.5) Ur Specific Swiss (1.000-1.030) Urine Protein (Negative) Urine Glucose (UA) (Negative) Urine Ketones (Negative) Urine Blood (Negative) Urine Nitrite (Negative) Urine Bilirubin (Negative) Urine Urobilinogen (Negative) Ur Leukocyte Esterase (Negative) Urine WBC (Auto) (0-5) /hpf Urine RBC (Auto) (0-4) /hpf U Hyaline Cast (Auto) (0-5) /lpf U Epithel Cells (Auto) (0-5) /lpf Urine Bacteria (Auto) (Negative) SARS-CoV-2, RNA, NAAT (NEGATIVE) 12/19/21 12/19/21 12/19/21 Range/Units 10:14 10:19 10:35 WBC (4.8-10.8) K/uL RBC (4.2-5.4) M/uL Hgb (12.0-16.0) g/dL Hct (37-47) % MCV (80-100) fL MCH (25-34) pg MCHC (32-36) g/dL RDW Std Deviation (36.4-46.3) fL RDW Coeff of Rodrigo (11.5-14.5) % Plt Count (130-400) K/uL MPV (7.4-10.4) fL Immature Gran % (Auto) % Neut % (Auto) % Lymph % (Auto) % [place] % (Auto) % Eos % (Auto) % Baso % (Auto) % Neut # (Auto) (1.4-6.5) K/uL Lymph # (Auto) (1.2-3.4) K/uL [place] # (Auto) (0.11-0.59) K/uL Eos # (Auto) (0-0.5) K/uL Baso # (Auto) (0-0.2) K/uL Immature Gran # (Auto) (0.00-0.02) K/uL PT (9.0-12.0) Seconds INR (0.9-1.1) Sodium (136-145) mmol/L Potassium (3.5-5.1) mmol/L Chloride (98-107) mmol/L Carbon Dioxide (21-32) mmol/L Anion Gap (3-11) BUN (6-23) mg/dl Creatinine (0.6-1.2) mg/dl Est Cr Clr Drug Dosing ml/min Est GFR ( Amer) ml/min Est GFR (Non-Af Amer) ml/min BUN/Creatinine Ratio (10-20) Glucose (70-99(Fasting)) mg/dl Calcium (8.5-10.1) mg/dl Total Bilirubin (0.2-1.0) mg/dl AST (13-39) U/L ALT (7-52) U/L Alkaline Phosphatase (34-104) U/L Troponin I (0-0.04) ng/ml B-Natriuretic Peptide 230 H (0-100) pg/ml Total Protein (6.0-8.3) gm/dl Albumin (3.4-5.0) gm/dl Globulin (2.5-4.0) gm/dl Albumin/Globulin Ratio (0.9-2) Lipase (11-82) U/L Urine Color Yellow Urine Appearance Clear (Clear) Urine pH 5.0 (4.5-7.5) Ur Specific Swiss 1.007 (1.000-1.030) Urine Protein Negative (Negative) Urine Glucose (UA) Negative (Negative) Urine Ketones Negative (Negative) Urine Blood Negative (Negative) Urine Nitrite Negative (Negative) Urine Bilirubin Negative (Negative) Urine Urobilinogen Negative (Negative) Ur Leukocyte Esterase Trace H (Negative) Urine WBC (Auto) 1-5 (0-5) /hpf Urine RBC (Auto) 0-4 (0-4) /hpf U Hyaline Cast (Auto) 0 (0-5) /lpf U Epithel Cells (Auto) 10-20 H (0-5) /lpf Urine Bacteria (Auto) Negative (Negative) SARS-CoV-2, RNA, NAAT NEGATIVE (NEGATIVE) Administered Medications Discontinued Medications Sodium Chloride (Nss) 250 mls @ 999 mls/hr IV .Q16M ONE Stop: 12/19/21 12:17 Last Infusion: 12/19/21 14:43 Dose: 0 mls/hr Documented by: [id number] Admin: 12/19/21 12:46 Dose: 999 mls/hr Documented by: [id number] Ioversol (Optiray 320 100ml) 95 ml IV ONCE ONE Stop: 12/19/21 11:31 Last Admin: 12/19/21 11:30 Dose: 95 ml Documented by: [id number] Morphine Sulfate (Morphine Sulfate 4 Mg/Ml 1 Ml Carp\Vial) 4 mg IV NOW STA Stop: 12/19/21 10:04 Last Admin: 12/19/21 10:20 Dose: 4 mg Documented by: [id number] Morphine Sulfate (Morphine Sulfate 10 Mg/Ml Carp/Vial) 6 mg IV NOW STA Stop: 12/19/21 10:59 Last Admin: 12/19/21 11:09 Dose: 6 mg Documented by: [id number] Ondansetron HCl (Ondansetron Inj 2 Mg/Ml 2 Ml Vial) 4 mg IV NOW STA Stop: 12/19/21 10:04 Last Admin: 12/19/21 10:20 Dose: 4 mg Documented by: [id number] Imaging Data Radiologist's Impression: Abdomen/Pelvis CT 12/19/21 09:59 CT abd pelvis IV con only CLINICAL HISTORY: abd pain lower b/l TECHNIQUE: Helical axial images of the abdomen and pelvis were obtained and displayed. Automated dose lowering techniques and/or adjustment according to patient size were utilized for this exam. This exam was performed with intravenous contrast. COMPARISON: Comparison is made to CT abdomen pelvis 06/22/2021 FINDINGS: Lower chest: Small right pleural effusion is seen with associated atelectasis. Cardiomegaly is seen. Liver: Irregularity and ill-defined hypodense nodules are again noted in the liver. These are unchanged from prior exam. Gallbladder and biliary tree: Patient is status post cholecystectomy. Physiologic prominence of the biliary ducts is noted. Pancreas: Unremarkable, no focal lesions. Spleen: Unremarkable. Adrenals: Unremarkable. Kidneys and ureters: Previously noted renal cysts are stable. Bladder: Unremarkable. Reproductive organs: Unremarkable. Bowel: Status post gastric surgery. A hiatal hernia is seen. Lymph nodes Retroperitoneal: Subcentimeter lymph nodes are noted. Mesenteric: There is a soft tissue nodule mesentery measuring 28 x 18 x 14 mm with surrounding fat stranding, previously measured 13 x 10 x 10 mm. Pelvic: Subcentimeter lymph nodes are noted. Peritoneum: Normal. Vessels: Atherosclerotic calcifications are seen. Abdominal wall: Midline incision is seen. Bones: Unremarkable. IMPRESSION: 1. Interval enlargement of a mesenteric soft tissue nodule with spiculation surrounding fat stranding. Findings are concerning for neoplasm. 2. Redemonstration of ill-defined nodules in the liver. If further evaluation is desired, MRI hepatic mass protocol can be considered. 3. Cardiomegaly and right pleural effusion are partially visualized. 4. Additional findings as above. ACT 112: Negative or not required by law. Electronically signed by: Isra Wise M.D. 12/19/2021 11:56 AM Chest X-Ray 12/19/21 09:59 XR chest 1V portable CLINICAL HISTORY: swelling in leg. Evaluate cardiopulmonary status COMPARISON STUDY: 04/16/2021 TECHNIQUE: 1 view of the chest FINDINGS: Single frontal view of the chest demonstrates the heart to again be enlarged. The lungs are clear of alveolar opacities. There is no evidence for pleural effusion. There is no evidence for vascular congestion. There is no acute osse ous pathology. IMPRESSION: No acute cardiopulmonary disease. ACT 112: Negative or not required by law. Electronically signed by: Kavon Erickson M.D. 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, Abdominal mass, CHF (congestive heart failure) Forms Stand Alone Forms: My [facility] Exposed Vocals Prescriptions Prescriptions: No Action cholecalciferol (vitamin D3) [Vitamin D3] 25 mcg (1,000 unit) capsule 2,000 unit PO QAM RF: 0 carvedilol [Coreg] 12.5 mg tablet 12.5 mg PO BID Qty: 180 RF: 3 diltiazem HCl [Cardizem CD] 240 mg capsule,extended release 24hr 240 mg PO QAM Qty: 90 RF: 3 spironolactone [Aldactone] 25 mg tablet 25 mg PO QAM Qty: 90 RF: 3 apixaban 2.5 mg tablet 2.5 mg PO BID Qty: 180 RF: 3 pantoprazole [Protonix] 40 mg tablet,delayed release (DR/EC) 40 mg PO DAILYBB RF: 0 furosemide [Lasix] 40 mg tablet 40 mg PO QAM RF: 0 bupropion HCl 150 mg tablet extended release 24 hr 150 mg PO QAM Qty: 30 RF: 5 atorvastatin [Lipitor] 40 mg tablet 40 mg PO QAM RF: 0 nystatin [Nystop] 100,000 unit/gram powder 1 applic topical HS RF: 0 Referrals Referrals: Christopher Guevara MD [Primary Care Provider] -
--- NOTE | 2021-12-19 10:18 | XRay Report ---
XR chest 1V portable CLINICAL HISTORY: swelling in leg. Evaluate cardiopulmonary status COMPARISON STUDY: 04/16/2021 TECHNIQUE: 1 view of the chest FINDINGS: Single frontal view of the chest demonstrates the heart to again be enlarged. The lungs are clear of alveolar opacities. There is no evidence for pleural effusion. There is no evidence for vascular corie estion. There is no acute osseous pathology. IMPRESSION: No acute cardiopulmonary disease. ACT 112: Negative or not required by law. Electronically signed by: Kavon Erickson M.D. 12/19/2021 10:17 AM
[2021-12-19 10:29] LABS: Prothrombin Time 10.4 Seconds (9.0-12.0)
[2021-12-19 10:43] LABS: Basophils # (auto) 0.02 K/uL (0-0.2); Basophils % (auto) 0.3 %; Eosinophils # (auto) 0.09 K/uL (0-0.5); Eosinophils % (auto) 1.3 %; Hematocrit (blood only) 40.3 % (37-47); Hemoglobin 12.5 g/dL (12.0-16.0); Immature Granulocytes # (auto) 0.01 K/uL (0.00-0.02); Immature Granulocytes % (auto) 0.1 %; Lymphocytes # (auto) 0.83 K/uL (1.2-3.4); Lymphocytes % (auto) 12.4 %; Mean Corpuscular Hemoglobin 29.1 pg (25-34); Mean Corpuscular Volume 93.7 fL (80-100); Mean Platelet Volume 9.2 fL (7.4-10.4); Monocytes # (auto) 0.74 K/uL (0.11-0.59); Monocytes % (auto) 11.1 %; Neutrophils % (auto) 74.8 %; Platelet Count 298 K/uL (130-400); RDW Coefficient of Variation 16.1 % (11.5-14.5); RDW Standard Deviation 54.9 fL (36.4-46.3); White Blood Count 6.69 K/uL (4.8-10.8)
[2021-12-19 10:44] LABS: Appearance Urine Clear (Clear); Bacteria Urine Automated Negative (Negative); Bilirubin Urine Negative (Negative); Blood Urine Negative (Negative); Cast Urine Automated 0 /lpf (0-5); Color Urine Yellow; Glucose Urine UA Negative (Negative); Ketones Urine Negative (Negative); Leukocyte Esterase Urine Trace (Negative); Nitrite Urine Negative (Negative); Protein Urine Negative (Negative); RBC Urine Automated 0-4 /hpf (0-4); Specific Gravity Urine 1.007 (1.000-1.030); Urobilinogen Urine Negative (Negative)
[2021-12-19 10:53] LABS: Alanine Aminotransferase 15 U/L (7-52); Albumin Globulin Ratio 1.3 (0.9-2); Albumin Level 3.8 gm/dl (3.4-5.0); Alkaline Phosphatase 113 U/L (34-104); Anion Gap 6 (3-11); Aspartate Aminotransferase 18 U/L (13-39); BUN Creatinine Ratio 18.1 (10-20); Bilirubin,Total 0.7 mg/dl (0.2-1.0); Blood Urea Nitrogen 25 mg/dl (6-23); Calcium 9.2 mg/dl (8.5-10.1); Carbon Dioxide 27 mmol/L (21-32); Chloride 107 mmol/L (98-107); Creatinine Clr Calc Pharmacy 46.4 ml/min; Est GFR (African American) 45.1 ml/min; Est GFR (Non-African American) 38.9 ml/min; Globulin 2.9 gm/dl (2.5-4.0); Glucose 90 mg/dl (70-99(Fasting)); Lipase 24 U/L (11-82); Potassium 4.8 mmol/L (3.5-5.1); Sodium 140 mmol/L (136-145); Total Protein 6.7 gm/dl (6.0-8.3)
[2021-12-19 10:56] LABS: Troponin I < 0.03 ng/ml (0-0.04)
[2021-12-19] MEDS ORDERED: MoRPHine SULFATE 10 MG/ML CARP/VIAL IV STA (10:58)
[2021-12-19] MEDS ORDERED: OPTIRAY 320 100ml IV ONE (11:30)
--- NOTE | 2021-12-19 11:58 | CT Scan Report ---
CT abd pelvis IV con only CLINICAL HISTORY: abd pain lower b/l TECHNIQUE: Helical axial images of the abdomen and pelvis were obtained and displayed. Automated dose lowering techniques and/or adjustment according to patient size were utilized for this exam. This e xam was performed with intravenous contrast. COMPARISON: Comparison is made to CT abdomen pelvis 06/22/2021 FINDINGS: Lower chest: Small right pleural effusion is seen with associated atelectasis. Cardiomegaly is seen. Liver: Irregularity and ill-defined hypodense nodules are again noted in the liver. These are unchang ed from prior exam. Gallbladder and biliary tree: Patient is status post cholecystectomy. Physiologic prominence of the b iliary ducts is noted. Pancreas: Unremarkable, no focal lesions. Spleen: Unremarkable. Adrenals: Unremarkable. Kidneys and ureters: Previously noted renal cysts are stable. Bladder: Unremarkable. Reproductive organs: Unremarkable. Bowel: Status post gastric surgery. A hiatal hernia is seen. Lymph nodes Retroperitoneal: Subcentimeter lymph nodes are noted. Mesenteric: There is a soft tissue nodule mesentery measuring 28 x 18 x 14 mm with surrounding fat st randing, previously measured 13 x 10 x 10 mm. Pelvic: Subcentimeter lymph nodes are noted. Peritoneum: Normal. Vessels: Atherosclerotic calcifications are seen. Abdominal wall: Midline incision is seen. Bones: Unremarkable. IMPRESSION: 1. Interval enlargement of a mesenteric soft tissue nodule with spiculation surrounding fat strandin g. Findings are concerning for neoplasm. 2. Redemonstration of ill-defined nodules in the liver. If further evaluation is desired, MRI hepati c mass protocol can be considered. 3. Cardiomegaly and right pleural effusion are partially visualized. 4. Additional findings as above. ACT 112: Negative or not required by law. Electronically signed by: Isra Wise M.D. 12/19/2021 11:56 AM
[2021-12-19] MEDS ORDERED: SODIUM CHLORIDE 0.9% 250 ML IV ONE (12:02)
--- NOTE | 2021-12-19 14:04 | History & Physical Report ---
Date of Service December 19, 2021 Assessment & Plan (1) Fluid overload: Plan: Fluid overload may be multifactorial. Can consider ascites from known cirrhosis/Calvillo, acute on chronic diastolic CHF. Last echo from 04/21 shows EF of 60/65%. Moderate tricuspid regurg, mild mitral regurg. We will repeat study this admission Patient is on Lasix 40 mg p.o. daily, will change to 40 mg IV twice daily. Also on Aldactone 25 mg daily which we will continue (2) Abdominal mass: Plan: Unclear from CT what this represents but certainly may be the cause of patient's abdominal pain along with fluid overload considering fat stranding Will check MRI of the abdomen Will ask GI to evaluate the patient here. Also consider general surgery consultation (3) Atrial fibrillation: Plan: Concern PCP office and the patient was in rapid atrial fibrillation. I do see EKG that shows rate controlled atrial fibrillation at 70bpm Patient is on carvedilol and diltiazem which we will continue Patient is on apixaban 2.5 mg twice daily. 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 Patient is a decent historian. 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 She follows with a it technical support specialist at an outside facility. Patient states that over the past few days she has had abdominal pain along with a 7 pound weight gain. There was some minimal shortness of breath associated with this. Patient went to see her primary care provider earlier today. In their office she had a low- grade fever. Because the patient's pain and weight gain, there was concern that she had acute CHF and was told to present to the emergency room for further evaluation. The emergency room she was afebrile with a low normal blood pressure. Work-up included a CT of the abdomen and revealed a possible mesenteric mass that was concerning for neoplasm. There is also a liver nodule although, looking back on previous films I did see if this was noted in previous ultrasounds. Patient is now being mated for shortness of breath secondary to fluid overload and a new potential gastric neoplasm. Allergies Allergy/AdvReac Type Severity Reaction Status Date / Time No Known Allergies Allergy Verified 12/19/21 10:52 Home Medications Medication Instructions Recorded Confirmed Type cholecalciferol (vitamin D3) 25 2,000 unit PO QAM cap 02/07/21 12/19/21 History mcg (1,000 unit) capsule (Vitamin D3) atorvastatin 40 mg tablet (Lipitor) 40 mg PO QAM 06/30/21 12/19/21 History nystatin 100,000 unit/gram topical 1 applic TOPICAL HS 06/30/21 12/19/21 History powder (Nystop) bupropion HCl 150 mg 24 hr tablet, 150 mg PO QAM #30 tab 09/07/21 12/19/21 Rx extended release spironolactone 25 mg tablet 25 mg PO QAM #90 tab 09/14/21 12/19/21 Rx (Aldactone) apixaban 2.5 mg tablet 2.5 mg PO BID #180 tab 09/29/21 12/19/21 Rx pantoprazole 40 mg tablet,delayed 40 mg PO DAILYBB tab 10/16/21 12/19/21 History release (Protonix) carvedilol 12.5 mg tablet (Coreg) 12.5 mg PO BID #180 tab 10/23/21 12/19/21 Rx diltiazem HCl 240 mg 240 mg PO QAM #90 cap 10/31/21 12/19/21 Rx capsule,extended release 24 hr (Cardizem CD) furosemide 40 mg tablet (Lasix) 40 mg PO QAM tab 12/07/21 12/19/21 History Past Med/Surg History Medical History Abdominal pain, acute, epigastric Abnormal computed tomography of abdomen and pelvis Abnormal results of liver function studies ARIADNE (acute kidney injury) Anemia Anemia HX OF - IRON INFUSION SEVERAL MONTHS AGO Anticoagulant long-term use Atrial fibrillation Dx approx 5 years ago - follows w/ Dr. Brewer (s/p remote pulmonary venous ablation X 2, on Eliquis and multiple negative chronotropes Bilateral pleural effusion Cardiac murmur Mild-moderate mitral regurgitation on 12/2019 echo, mild TR and NH Cholangitis Chronic pain of inguinal region Cirrhosis Cirrhosis Diaphoresis Dissection of vertebral artery Encounter for pre-operative examination Fecal incontinence GERD (gastroesophageal reflux disease) History of skin cancer & REMOVED History of sleep apnea HX SLEEP STUDY AND MACHINE, SINCE D/C'D - SLEEP APNEA RESOLVED Hydronephrosis of right kidney Hyperlipemia Hyperlipidemia LDL goal <70 Hypertension Infection due to ESBL-producing Escherichia coli Kidney stones Lesion of ureter biopsy 12/29/2020 (pt unsure of results) Melena Mesenteric mass Nephrolithiasis Pain in the abdomen Perineal itching, female Permanent atrial fibrillation PFO (patent foramen ovale) Suspected per records Recurrent pancreatitis HX OF / 3-4 YR AGO Scalp itch Skin abscess Skin irritation SOB (shortness of breath) on exertion TIA (transient ischemic attack) TIA (transient ischemic attack) 2018- [place] - no residual -NO ISSUES SINCE Tick bite Urinary tract infection Surgical History H/O: hysterectomy History of cardiac radiofrequency ablation D/T AFIB - PT REPORTS HAD 1 BUT MAYBE 2 - NOT SURE DATES ([facility]) History of cardioversion multiple History of colonoscopy History of colostomy History of colostomy reversal History of cystoscopy and Right Ureteroscopy with stent. Following with Dr Rowe. 12/2020. History of esophagogastroduodenoscopy (EGD) History of tubal ligation History of umbilical hernia repair Hx of abdominal surgery FOR REMOVAL OF CYST - PT NOT SURE TYPE Hx of cholecystectomy Hx of laparoscopy Hx of removal of cyst Tubal ligation status Family History Grandmother Diabetes Hypertension Mother Heart disease Hypertension Grandfather Stomach cancer Hypertension Father Pancreatic cancer Hypertension Other No family history of adverse response to anesthesia Denies family history of Ovarian cancer Breast cancer Colorectal cancer Social History Smoking Status: Former smoker Tobacco Type: Cigarettes Second Hand Exposure: No; Hx Alcohol Use: No Hx Substance Use: No Preferred Language: [place] Communication Ability: Effective Visual Impairment: No Limitations Hearing Ability: Normal 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 Beliefs That Will Affect Care: None marital status: Current Living Situation: Spouse 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 status: retired 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 [employer] Feels Safe at Home: Yes caffeine: No Dental Care, Regularly: Yes Physical Activity Frequency: Does not Exercise Seatbelt Use: always Sunscreen Use: No Assistive Devices: None Review of Systems Constitutional: + fever, + fatigue and + weight gain; no chills, no weakness and no weight loss Eyes: as per Subjective / HPI Respiratory: + dyspnea on exertion; no cough, no chest congestion and no dyspnea Cardiovascular: no chest pain, no orthopnea, no palpitations, no lightheadedness and no edema Gastrointestinal: + abdominal pain and + diarrhea/loose stools; no heartburn, no nausea, no vomiting, no coffee ground emesis and no constipation Genitourinary: no dysuria, no difficulty urinating, no urinary frequency, no urinary hesitancy, no urinary urgency and no flank pain Musculoskeletal: no back pain, no neck pain, no joint pain, no stiffness and no myalgia Integumentary: no rash Neurologic: no gait abnormality, no unsteadiness, no falls and no generalized weakness Physical Exam Constitutional: cooperative; no acute distress Neck: trachea midline, no thyromegaly Respiratory: normal respiratory effort Auscultation: lungs clear to auscultation bilaterally; no crackles, no rales, no rhonchi and no wheezes Cardiovascular: Rate/Rhythm: regular rate and regular rhythm Heart Sounds: normal S1 and normal S2 Extremities: + edema (2+) Gastrointestinal (Abdomen): Inspection/Auscultation: abdomen normal to inspection Percussion/Palpation: + abdomen tender, + guarding, abdomen soft and + fluid wave; abdomen not rigid and no hepatosplenomegaly Skin: no rashes, warm and dry Results & Data Results & Data ([facility]) Vital Signs (Past 12 Hours) Vital Signs Temp Pulse Pulse Resp BP BP Pulse Ox 12/19/21 13:22 87 18 100/54 L 100 12/19/21 11:49 100 12/19/21 11:11 71 20 86/49 L 95 12/19/21 10:10 110 H 20 96 12/19/21 09:42 37.3 C 97 H 20 140/90 97 Laboratory Results Laboratory Results WBC 6.69 K/uL (4.8-10.8) 12/19/21 10:05 RBC 4.30 M/uL (4.2-5.4) 12/19/21 10:05 Hgb 12.5 g/dL (12.0-16.0) 12/19/21 10:05 Hct 40.3 % (37-47) 12/19/21 10:05 MCV 93.7 fL (80-100) 12/19/21 10:05 MCH 29.1 pg (25-34) 12/19/21 10:05 MCHC 31.0 g/dL (32-36) L 12/19/21 10:05 RDW Std Deviation 54.9 fL (36.4-46.3) H 12/19/21 10:05 RDW Coeff of Rodrigo 16.1 % (11.5-14.5) H 12/19/21 10:05 Plt Count 298 K/uL (130-400) 12/19/21 10:05 MPV 9.2 fL (7.4-10.4) 12/19/21 10:05 Immature Gran % (Auto) 0.1 % 12/19/21 10:05 Neut % (Auto) 74.8 % 12/19/21 10:05 Lymph % (Auto) 12.4 % 12/19/21 10:05 [facility] % (Auto) 11.1 % 12/19/21 10:05 Eos % (Auto) 1.3 % 12/19/21 10:05 Baso % (Auto) 0.3 % 12/19/21 10:05 Neut # (Auto) 5.00 K/uL (1.4-6.5) 12/19/21 10:05 Lymph # (Auto) 0.83 K/uL (1.2-3.4) L 12/19/21 10:05 [facility] # (Auto) 0.74 K/uL (0.11-0.59) H 12/19/21 10:05 Eos # (Auto) 0.09 K/uL (0-0.5) 12/19/21 10:05 Baso # (Auto) 0.02 K/uL (0-0.2) 12/19/21 10:05 Immature Gran # (Auto) 0.01 K/uL (0.00-0.02) 12/19/21 10:05 PT 10.4 Seconds (9.0-12.0) 12/19/21 10:05 INR 1.0 (0.9-1.1) 12/19/21 10:05 Sodium 140 mmol/L (136-145) 12/19/21 10:05 Potassium 4.8 mmol/L (3.5-5.1) 12/19/21 10:05 Chloride 107 mmol/L (98-107) 12/19/21 10:05 Carbon Dioxide 27 mmol/L (21-32) 12/19/21 10:05 Anion Gap 6 (3-11) 12/19/21 10:05 BUN 25 mg/dl (6-23) H 12/19/21 10:05 Creatinine 1.38 mg/dl (0.6-1.2) H 12/19/21 10:05 Est Cr Clr Drug Dosing 46.4 ml/min 12/19/21 10:05 Est GFR ( Amer) 45.1 ml/min 12/19/21 10:05 Est GFR (Non-Af Amer) 38.9 ml/min 12/19/21 10:05 BUN/Creatinine Ratio 18.1 (10-20) 12/19/21 10:05 Glucose 90 mg/dl (70-99(Fasting)) 12/19/21 10:05 Calcium 9.2 mg/dl (8.5-10.1) 12/19/21 10:05 Total Bilirubin 0.7 mg/dl (0.2-1.0) 12/19/21 10:05 AST 18 U/L (13-39) 12/19/21 10:05 ALT 15 U/L (7-52) 12/19/21 10:05 Alkaline Phosphatase 113 U/L (34-104) H 12/19/21 10:05 Troponin I < 0.03 ng/ml (0-0.04) 12/19/21 10:05 B-Natriuretic Peptide 230 pg/ml (0-100) H 12/19/21 10:19 Total Protein 6.7 gm/dl (6.0-8.3) 12/19/21 10:05 Albumin 3.8 gm/dl (3.4-5.0) 12/19/21 10:05 Globulin 2.9 gm/dl (2.5-4.0) 12/19/21 10:05 Albumin/Globulin Ratio 1.3 (0.9-2) 12/19/21 10:05 Lipase 24 U/L (11-82) 12/19/21 10:05 Urine Color Yellow 12/19/21 10:14 Urine Appearance Clear (Clear) 12/19/21 10:14 Urine pH 5.0 (4.5-7.5) 12/19/21 10:14 Ur Specific [place] 1.007 (1.000-1.030) 12/19/21 10:14 Urine Protein Negative (Negative) 12/19/21 10:14 Urine Glucose (UA) Negative (Negative) 12/19/21 10:14 Urine Ketones Negative (Negative) 12/19/21 10:14 Urine Blood Negative (Negative) 12/19/21 10:14 Urine Nitrite Negative (Negative) 12/19/21 10:14 Urine Bilirubin Negative (Negative) 12/19/21 10:14 Urine Urobilinogen Negative (Negative) 12/19/21 10:14 Ur Leukocyte Esterase Trace (Negative) H 12/19/21 10:14 Urine WBC (Auto) 1-5 /hpf (0-5) 12/19/21 10:14 Urine RBC (Auto) 0-4 /hpf (0-4) 12/19/21 10:14 U Hyaline Cast (Auto) 0 /lpf (0-5) 12/19/21 10:14 U Epithel Cells (Auto) 10-20 /lpf (0-5) H 12/19/21 10:14 Urine Bacteria (Auto) Negative (Negative) 12/19/21 10:14 SARS-CoV-2, RNA, NAAT NEGATIVE (NEGATIVE) 12/19/21 10:35 Impressions Abdomen/Pelvis CT 12/19/21 09:59 CT abd pelvis IV con only CLINICAL HISTORY: abd pain lower b/l TECHNIQUE: Helical axial images of the abdomen and pelvis were obtained and displayed. Automated dose lowering techniques and/or adjustment according to patient size were utilized for this exam. This exam was performed with intravenous contrast. COMPARISON: Comparison is made to CT abdomen pelvis 06/22/2021 FINDINGS: Lower chest: Small right pleural effusion is seen with associated atelectasis. Cardiomegaly is seen. Liver: Irregularity and ill-defined hypodense nodules are again noted in the liver. These are unchanged from prior exam. Gallbladder and biliary tree: Patient is status post cholecystectomy. Physiologic prominence of the biliary ducts is noted. Pancreas: Unremarkable, no focal lesions. Spleen: Unremarkable. Adrenals: Unremarkable. Kidneys and ureters: Previously noted renal cysts are stable. Bladder: Unremarkable. Reproductive organs: Unremarkable. Bowel: Status post gastric surgery. A hiatal hernia is seen. Lymph nodes Retroperitoneal: Subcentimeter lymph nodes are noted. Mesenteric: There is a soft tissue nodule mesentery measuring 28 x 18 x 14 mm with surrounding fat stranding, previously measured 13 x 10 x 10 mm. Pelvic: Subcentimeter lymph nodes are noted. Peritoneum: Normal. Vessels: Atherosclerotic calcifications are seen. Abdominal wall: Midline incision is seen. Bones: Unremarkable. IMPRESSION: 1. Interval enlargement of a mesenteric soft tissue nodule with spiculation surrounding fat stranding. Findings are concerning for neoplasm. 2. Redemonstration of ill-defined nodules in the liver. If further evaluation is desired, MRI hepatic mass protocol can be considered. 3. Cardiomegaly and right pleural effusion are partially visualized. 4. Additional findings as above. ACT 112: Negative or not required by law. Electronically signed by: Isra Wise M.D. 12/19/2021 11:56 AM Chest X-Ray 12/19/21 09:59 XR chest 1V portable CLINICAL HISTORY: swelling in leg. Evaluate cardiopulmonary status COMPARISON STUDY: 04/16/2021 TECHNIQUE: 1 view of the chest FINDINGS: Single frontal view of the chest demonstrates the heart to again be enlarged. The lungs are clear of alveolar opacities. There is no evidence for pleural effusion. There is no evidence for vascular congestion. There is no acute osseous pathology. IMPRESSION: No acute cardiopulmonary disease. ACT 112: Negative or not required by law. Electronically signed by: Kavon Erickson M.D. 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
[2021-12-19] MEDS ORDERED: ONDANSETRON INJ 2 MG/ML 2 ML VIAL ONE ×2 (15:14→16:06)
--- NOTE | 2021-12-19 16:27 | XCELERA ---
[id number]
[2021-12-19] MEDS ORDERED: GADOXETATE DISODIUM IV ONE (16:45)
[2021-12-19] MEDS ORDERED: ONDANSETRON INJ 2 MG/ML 2 ML VIAL IV PRN (17:39)
--- NOTE | 2021-12-19 21:19 | Electrocardiogram Report ---
Test Reason : Blood Pressure : / mmHG Vent. Rate : 125 BPM Atrial Rate : 117 BPM P-R Int : 000 ms QRS Dur : 088 ms QT Int : 310 ms P-R-T Axes : 000 -18 003 degrees QTc Int : 447 ms Atrial fibrillation with rapid ventricular response Inferior infarct , age undetermined Abnormal ECG When compared with ECG of 30-JUN-2021 12:00, Vent. rate has increased BY 50 BPM Inferior infarct is now Present Inverted T waves have replaced nonspecific T wave abnormality in Inferior leads Confirmed by Leonardo Herr ([id number]) on 12/19/2021 9:18:59 PM Referred By: SELF Confirmed By:Leonardo Herr
[2021-12-19] MEDS: APIXABAN 2.5 MG TAB PO SCH (21:22)
[2021-12-19] MEDS: carvediloL 12.5 MG TAB PO SCH (21:22)
[2021-12-19] MEDS: FUROSEMIDE 40 MG/4 ML VIAL IV SCH (21:57)
--- NOTE | 2021-12-20 05:58 | Electrocardiogram Report ---
Test Reason : Blood Pressure : / mmHG Vent. Rate : 079 BPM Atrial Rate : 076 BPM P-R Int : 000 ms QRS Dur : 094 ms QT Int : 400 ms P-R-T Axes : 000 -16 -10 degrees QTc Int : 458 ms Atrial fibrillation Inferior infarct (cited on or before 19-DEC-2021) Abnormal ECG When compared with ECG of 19-DEC-2021 09:53, Vent. rate has decreased BY 46 BPM Confirmed by Leonardo Herr ([id number]) on 12/20/2021 5:57:58 AM Referred By: CLOLEEN Confirmed By:Leonardo Herr
[2021-12-20 06:18] LABS: Basophils # (auto) 0.01 K/uL (0-0.2); Basophils % (auto) 0.2 %; Eosinophils # (auto) 0.04 K/uL (0-0.5); Eosinophils % (auto) 0.7 %; Hematocrit (blood only) 39.8 % (37-47); Hemoglobin 12.3 g/dL (12.0-16.0); Immature Granulocytes # (auto) 0.01 K/uL (0.00-0.02); Immature Granulocytes % (auto) 0.2 %; Lymphocytes # (auto) 0.86 K/uL (1.2-3.4); Mean Corpuscular Hemoglobin 29.1 pg (25-34); Mean Corpuscular Hgb Conc 30.9 g/dL (32-36); Mean Corpuscular Volume 94.1 fL (80-100); Monocytes # (auto) 0.47 K/uL (0.11-0.59); Monocytes % (auto) 8.7 %; Neutrophils # (auto) 3.99 K/uL (1.4-6.5); Neutrophils % (auto) 74.2 %; Platelet Count 258 K/uL (130-400); RDW Coefficient of Variation 16.1 % (11.5-14.5); RDW Standard Deviation 55.5 fL (36.4-46.3); Red Blood Count 4.23 M/uL (4.2-5.4); White Blood Count 5.38 K/uL (4.8-10.8)
[2021-12-20] MEDS ORDERED: PANTOprazole 40 MG TAB PO SCH (06:30)
[2021-12-20 06:56] LABS: Albumin Globulin Ratio 1.3 (0.9-2); Albumin Level 3.7 gm/dl (3.4-5.0); BUN Creatinine Ratio 18.1 (10-20); Bilirubin,Total 0.9 mg/dl (0.2-1.0); Calcium 8.8 mg/dl (8.5-10.1); Creatinine Clr Calc Pharmacy 44.5 ml/min; Est GFR (African American) 42.8 ml/min; Globulin 2.9 gm/dl (2.5-4.0); Magnesium 2.1 mg/dl (1.7-2.4); Potassium 4.4 mmol/L (3.5-5.1); Total Protein 6.6 gm/dl (6.0-8.3)
--- NOTE | 2021-12-20 08:32 | Magnetic Resonance Report ---
MR abdomen wo/w con HISTORY: Evaluate mesenteric mass TECHNIQUE: Multiplanar multisequence MRI of the abdomen was performed both before and after the intra venous administration of 10 cc of Eovist contrast to evaluate the liver. COMPARISON STUDY: Abdomen and pelvis CT 12/19/2021. FINDINGS: There is small right pleural effusion, unchanged. The heart remains mildly enlarged. Subopt imal evaluation the abdomen due to motion artifact. Multiple T2 hyperintense nonenhancing lesion with in the kidneys with the largest in the left kidney measuring 4.8 cm. These are consistent with cysts. No hydronephrosis. The adrenal glands and pancreas unremarkable. Prior cholecystectomy. The common b ile duct measures up to 7.9 mm. This is considered to be within the range normal limits given the pat ient's postcholecystectomy state. No filling defects within the common bile duct. The main pancreatic duct is normal in course and caliber. No retroperitoneal lymphadenopathy. Redemonstration of the irr egular and enhancing soft tissue nodule within the central mesentery abutting and partially encasing the superior mesenteric vessels. This measures 2.2 cm. This is highly suspicious for a neoplastic pro cess/metastatic disease. Stable prominent cystic foci along the left side of the L3 and L4 vertebral body suggesting lateral thoracic meningoceles or perineural cysts. These are likely benign. Postopera tive changes consistent with prior Ngoc-en-Y gastric bypass. Redemonstration of the exophytic 9 mm no dule within the right hepatic lobe inferiorly. This is suboptimally assessed due to the motion artifa ct at this location but could represent normal liver parenchyma. Otherwise, no suspicious hepatic les ions identified. The main portal vein is patent. Normal caliber abdominal aorta. No suspicious osseou s lesions. IMPRESSION: 1. Redemonstration of the exophytic 9 mm nodule within the right hepatic lobe inferiorly. This is gregg boptimally assessed due to the motion artifact at this location but could represent normal liver pare nchyma. Otherwise, no suspicious hepatic lesions identified. 2. There is again noted a 2.2 cm irregular soft tissue nodule within the central mesentery abutting a nd partially encasing the superior mesenteric vessels. This is high suspicious for a neoplastic proce ss/metastatic disease. 3. Small right pleural effusion, unchanged. 4. Additional findings as described above. ACT 112: Negative or not required by law. Electronically signed by: Sky Gardner M.D. 12/20/2021 8:31 AM
[2021-12-20] MEDS ORDERED: SPIRONOLACTONE 25 MG TAB PO SCH (09:00)
[2021-12-20] MEDS ORDERED: CHOLECALCIFEROL 1,000 UNITS 25 MCG TAB PO SCH (09:00)
[2021-12-20] MEDS ORDERED: ATORVASTATIN 40 MG TAB PO SCH (09:00)
[2021-12-20] MEDS ORDERED: dilTIAZem HCL 240 MG CAPCR PO SCH (09:00)
[2021-12-20] MEDS ORDERED: buPROPion XL 150 MG TABCR PO SCH (09:00)
[2021-12-20] MEDS: APIXABAN 2.5 MG TAB PO SCH (09:44)
[2021-12-20] MEDS: carvediloL 12.5 MG TAB PO SCH (09:44)
[2021-12-20] MEDS: FUROSEMIDE 40 MG/4 ML VIAL IV SCH (09:44)
--- NOTE | 2021-12-20 09:46 | Gastrointestinal Consultation ---
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 Recommend general surgery consultation or radiology assisted bx. 2. Outpatient follow up for HOFFMAN cirrhosis/colonoscopy as recommended by Dr. Foster. 3. Rest per primary team. Supervising Physician Co-Signing Physician Notes I personally evaluated the patient and agree with the findings as documented by MOLLY Wetzel Exam: abd: soft, nt, nd History of Present Illness Reason for Consultation: abd pain, mesenteric mass Requesting Physician: Dr. Prado Attending Physician: Darius Bates DO History of Present Illness Tea Dawkins is a 71 y.o. known to our office due to history of HOFFMAN cirrhosis. She was last seen in the office by Dr. Foster on 09/07/21. She was reporting sleeping difficulties at that time. This was not felt related to HE due to normal ammonia levels at that time. She presents to the hospital yesterday with an abrupt onset of severe "worst pain I have ever had" 10/10 abdominal pain in the midabdomen radiating into the substernal chest region. Reports associated nausea. She also endorses frequent bilateral lower quadrant cramping and urge to defecate. CT imaging obtained in the ER demonstrated a 2.2cm nodule in the mesentery abutting the superior mesenteric vessel. GI has been consulted in this regard. Allergies Allergy/AdvReac Type Severity Reaction Status Date / Time No Known Allergies Allergy Verified 12/19/21 10:52 Home Medications Medication Instructions Recorded Confirmed Type cholecalciferol (vitamin D3) 25 2,000 unit PO QAM cap 02/07/21 12/19/21 History mcg (1,000 unit) capsule (Vitamin D3) atorvastatin 40 mg tablet (Lipitor) 40 mg PO QAM 06/30/21 12/19/21 History nystatin 100,000 unit/gram topical 1 applic TOPICAL HS 06/30/21 12/19/21 History powder (Nystop) bupropion HCl 150 mg 24 hr tablet, 150 mg PO QAM #30 tab 09/07/21 12/19/21 Rx extended release spironolactone 25 mg tablet 25 mg PO QAM #90 tab 09/14/21 12/19/21 Rx (Aldactone) apixaban 2.5 mg tablet 2.5 mg PO BID #180 tab 09/29/21 12/19/21 Rx pantoprazole 40 mg tablet,delayed 40 mg PO DAILYBB tab 10/16/21 12/19/21 History release (Protonix) carvedilol 12.5 mg tablet (Coreg) 12.5 mg PO BID #180 tab 10/23/21 12/19/21 Rx diltiazem HCl 240 mg 240 mg PO QAM #90 cap 10/31/21 12/19/21 Rx capsule,extended release 24 hr (Cardizem CD) furosemide 40 mg tablet (Lasix) 40 mg PO QAM tab 12/07/21 12/19/21 History spironolactone 25 mg tablet 25 mg PO QAM 30 Days #30 tab 12/20/21 Rx Patient History Medical History Abdominal pain, acute, epigastric Abnormal computed tomography of abdomen and pelvis Abnormal results of liver function studies ARIADNE (acute kidney injury) Anemia Anemia HX OF - IRON INFUSION SEVERAL MONTHS AGO Anticoagulant long-term use Atrial fibrillation Dx approx 5 years ago - follows w/ Dr. Brewer (s/p remote pulmonary venous ablation X 2, on Eliquis and multiple negative chronotropes Bilateral pleural effusion Cardiac murmur Mild-moderate mitral regurgitation on 12/2019 echo, mild TR and OR Cholangitis Chronic pain of inguinal region Cirrhosis Cirrhosis Diaphoresis Dissection of vertebral artery Encounter for pre-operative examination Fecal incontinence GERD (gastroesophageal reflux disease) History of skin cancer & REMOVED History of sleep apnea HX SLEEP STUDY AND MACHINE, SINCE D/C'D - SLEEP APNEA RESOLVED Hydronephrosis of right kidney Hyperlipemia Hyperlipidemia LDL goal <70 Hypertension Infection due to ESBL-producing Escherichia coli Kidney stones Lesion of ureter biopsy 12/29/2020 (pt unsure of results) Melena Mesenteric mass Nephrolithiasis Pain in the abdomen Perineal itching, female Permanent atrial fibrillation PFO (patent foramen ovale) Suspected per records Recurrent pancreatitis HX OF / 3-4 YR AGO Scalp itch Skin abscess Skin irritation SOB (shortness of breath) on exertion TIA (transient ischemic attack) TIA (transient ischemic attack) 2018- [place] - no residual -NO ISSUES SINCE Tick bite Urinary tract infection Surgical History H/O: hysterectomy History of cardiac radiofrequency ablation D/T AFIB - PT REPORTS HAD 1 BUT MAYBE 2 - NOT SURE DATES ([place]) History of cardioversion multiple History of colonoscopy History of colostomy History of colostomy reversal History of cystoscopy and Right Ureteroscopy with stent. Following with Dr Rowe. 12/2020. History of esophagogastroduodenoscopy (EGD) History of tubal ligation History of umbilical hernia repair Hx of abdominal surgery FOR REMOVAL OF CYST - PT NOT SURE TYPE Hx of cholecystectomy Hx of laparoscopy Hx of removal of cyst Tubal ligation status Family History Grandmother Diabetes Hypertension Mother Heart disease Hypertension Grandfather Stomach cancer Hypertension Father Pancreatic cancer Hypertension Other No family history of adverse response to anesthesia Denies family history of Ovarian cancer Breast cancer Colorectal cancer Social History Smoking Status: Former smoker Tobacco Type: Cigarettes Second Hand Exposure: No; Hx Alcohol Use: No Hx Substance Use: No Preferred Language: Mexican Communication Ability: Effective Visual Impairment: No Limitations Hearing Ability: Normal 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: No Beliefs That Will Affect Care: None marital status: Current Living Situation: Spouse 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 status: retired 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 [employer] Feels Safe at Home: Yes caffeine: No Dental Care, Regularly: Yes Physical Activity Frequency: Does not Exercise Seatbelt Use: always Sunscreen Use: No Assistive Devices: None Review of Systems Constitutional: no fever and no chills Gastrointestinal: as per Subjective / HPI Physical Exam Constitutional: WD/WN, vitals as above Respiratory: normal respiratory effort, lungs clear to auscultation Cardiovascular: RRR, no murmur, no edema Gastrointestinal (Abdomen): normal bowel sounds, soft, nontender, no hepatosplenomegaly Psychiatric: A+Ox3, euthymic affect Results & Data ([facility]) Vital Signs (Past 12 Hours) Vital Signs Pulse Pulse Resp BP BP Pulse Ox 12/20/21 09:40 100 H 24 126/79 97 12/20/21 03:30 93 H 19 121/78 96 12/19/21 23:27 116 H 18 119/87 97 12/19/21 23:00 16 12/19/21 22:30 14 95 12/19/21 22:00 19 126/94 96 PG Care Time/CCT Total # of Minutes Spent Total Time Spent with Patient: Total time spent is greater than 50% in coordination of care (as documented) at patient's floor/unit and/or counseling patient: Coding Level of Care Code 14037 Initial Inpt Care Lvl 3 Diagnoses Abdominal mass R19.00 Abdominal location: unspecified location 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
--- NOTE | 2021-12-20 11:40 | Hospitalist Progress Note ---
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 fib pre sents complaining of abdominal pain and weight gain. #Fluid overload Likely multifactorial, combination of chronic diastolic CHF, cirrhosis/HOFFMAN. Most recent echo was from 04/21 demonstrates an EF of 6065%, moderate tricuspid regurg, mild mitral regurg. As an outpatient patient is on 40 mg of Lasix p.o. daily. -12/20 echo normal LV size and systolic function, EF 60 to 65%, no regional wall motion abnormalities, moderate concentric LVH, severe biatrial dilation, A. fib. Similar findings to study on 04/09/2021 -Lasix 40 mg IV twice daily -Started Aldactone 25 mg daily -Patient reports improvement in her symptoms since admission -Daily weights: 122.5 #Abdominal mass CT demonstrating abdominal mass which could be related to patient's underlying presentation.Abdominal MRI was performed demonstrating exophytic 9 mm nodule within the right hepatic lobe inferiorly suboptimally assessed due to motion artifact could represent normal liver parenchyma. 2.2 cm irregular soft tissue nodule within the central mesentery abutting and partially encasing the superior mesenteric vessel suspicious for neoplastic versus metastatic disease. -GI consulted following recommendations -Consult surgery -Outpatient follow-up for HOFFMAN -General surgery consulted appreciate recommendations #Atrial fibrillation In PCPs office patient was then rapid atrial fibrillation, currently while hospitalized EKG demonstrating rate controlled A. fib at 100 bpm. -Monitor on telemetry -Continue carvedilol 12.5 mg p.o. twice daily -Continue diltiazem 240 mg p.o. every morning -Continue apixaban 2.5 mg p.o. 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 Grammatical errors, random word insertions, pronoun errors, and in complete sentences are an occasional consequence of the system. Any questions or concerns about the content, text, or information contained within the body of this dictation should be addressed directly to the physician for clarification. Admission and Anticipated Discharge Date Admission Date: December 19, 2021 Subjective Patient lying in bed this morning in no acute distress. Patient related history similar to that presented in the H&P. Patient endorses abdominal pain, she is unsure whether it is superficial or deep. She reports she has not had a bowel movement in 2 days. otherwise she reports tolerating her diet and voiding and sleeping. Acute concerns related to abdominal mass on imaging, all questions answered. Physical Exam Physical Exam: General: Lying in bed in no acute distress HEENT: Normocephalic atraumatic Neck: Normal to visual inspection Cardiac: Irregularly irregular rhythm I did not appreciate any significant murmurs rubs or gallops, normal S1, normal S2, negative pedal edema, negative calf tenderness Respiratory: Clear to auscultation bilaterally with symmetrical chest expansion I did not appreciate any significant wheezes, rales, rhonchi GI: Soft, distended, positive right upper quadrant and right lower quadrant tenderness MSK: Moves all extremities Neuro: Alert and oriented x3 Psych: Calm and cooperative with the interview Results & Data Results & Data ([facility]) Vital Signs (Past 12 Hours) Vital Signs Pulse Pulse Resp BP BP Pulse Ox 12/20/21 09:40 100 H 24 126/79 97 12/20/21 03:30 93 H 19 121/78 96 12/19/21 23:27 116 H 18 119/87 97 Laboratory Results 12/20/21 12/20/21 Range/Units 05:54 05:54 WBC 5.38 (4.8-10.8) K/uL RBC 4.23 (4.2-5.4) M/uL Hgb 12.3 (12.0-16.0) g/dL Hct 39.8 (37-47) % MCV 94.1 (80-100) fL MCH 29.1 (25-34) pg MCHC 30.9 L (32-36) g/dL RDW Std Deviation 55.5 H (36.4-46.3) fL RDW Coeff of Rodrigo 16.1 H (11.5-14.5) % Plt Count 258 (130-400) K/uL MPV 9.0 (7.4-10.4) fL Immature Gran % (Auto) 0.2 % Neut % (Auto) 74.2 % Lymph % (Auto) 16.0 % [place] % (Auto) 8.7 % Eos % (Auto) 0.7 % Baso % (Auto) 0.2 % Neut # (Auto) 3.99 (1.4-6.5) K/uL Lymph # (Auto) 0.86 L (1.2-3.4) K/uL [place] # (Auto) 0.47 (0.11-0.59) K/uL Eos # (Auto) 0.04 (0-0.5) K/uL Baso # (Auto) 0.01 (0-0.2) K/uL Immature Gran # (Auto) 0.01 (0.00-0.02) K/uL Sodium 140 (136-145) mmol/L Potassium 4.4 (3.5-5.1) mmol/L Chloride 104 (98-107) mmol/L Carbon Dioxide 30 (21-32) mmol/L Anion Gap 6 (3-11) BUN 26 H (6-23) mg/dl Creatinine 1.44 H (0.6-1.2) mg/dl Est Cr Clr Drug Dosing 44.5 ml/min Est GFR ( Amer) 42.8 ml/min Est GFR (Non-Af Amer) 37.0 ml/min BUN/Creatinine Ratio 18.1 (10-20) Glucose 90 (70-99(Fasting)) mg/dl Calcium 8.8 (8.5-10.1) mg/dl Magnesium 2.1 (1.7-2.4) mg/dl Total Bilirubin 0.9 (0.2-1.0) mg/dl AST 114 H (13-39) U/L ALT 120 H (7-52) U/L Alkaline Phosphatase 241 H D (34-104) U/L Total Protein 6.6 (6.0-8.3) gm/dl Albumin 3.7 (3.4-5.0) gm/dl Globulin 2.9 (2.5-4.0) gm/dl Albumin/Globulin Ratio 1.3 (0.9-2) Medications Administered Current Inpatient Medications Apixaban (Apixaban 2.5 Mg Tab) 2.5 mg PO BID [facility] Stop: 01/18/22 20:59 Last Admin: 12/20/21 09:44 Dose: 2.5 mg Documented by: Atorvastatin Calcium (Atorvastatin 40 Mg Tab) 40 mg PO QAM [facility] Stop: 01/19/22 08:59 Last Admin: 12/20/21 09:44 Dose: 40 mg Documented by: Bupropion HCl (Bupropion Xl 150 Mg Tabcr) 150 mg PO QAM [facility] Stop: 01/19/22 08:59 Last Admin: 12/20/21 09:44 Dose: 150 mg Documented by: Carvedilol (Carvedilol 12.5 Mg Tab) 12.5 mg PO BID [facility] Stop: 01/18/22 20:59 Last Admin: 12/20/21 09:44 Dose: 12.5 mg Documented by: Diltiazem HCl (Diltiazem Hcl 240 Mg Capcr) 240 mg PO [facility] Stop: 01/19/22 08:59 Last Admin: 12/20/21 09:44 Dose: 240 mg Documented by: Furosemide (Furosemide 40 Mg/4 Ml Vial) 40 mg IV BID [facility] Stop: 01/18/22 20:59 Last Admin: 12/20/21 09:44 Dose: 40 mg Documented by: Ondansetron HCl (Ondansetron Inj 2 Mg/Ml 2 Ml Vial) 4 mg IV Q6H PRN PRN Reason: Nausea Stop: 01/18/22 17:38 Pantoprazole Sodium (Pantoprazole 40 Mg Tab) 40 mg PO DAILYBB [facility] Stop: 01/19/22 06:29 Last Admin: 12/20/21 05:34 Dose: 40 mg Documented by: Spironolactone (Spironolactone 25 Mg Tab) 25 mg PO QAM [facility] Stop: 01/19/22 08:59 Last Admin: 12/20/21 09:44 Dose: 25 mg Documented by: Vitamin D (Cholecalciferol 1,000 Units 25 Mcg Tab) 2,000 units PO QAM [facility] Stop: 01/19/22 08:59 Last Admin: 12/20/21 09:44 Dose: 2,000 units Documented by: Resident Activity Tracking Resident Involvement: Resident Care Provided Care Provided: Adult Hospital Medicine (1) Abdominal mass Abdominal location: unspecified location Qualified Code(s): R19.00 - Intra- abdominal and pelvic swelling, mass and lump, unspecified site (2) Atrial fibrillation Atrial fibrillation type: unspecified Qualified Code(s): I48.91 - Unspecified atrial fibrillation
[2021-12-20] MEDS ORDERED: POLYETHYLENE (MIRALAX) 17 GM PACK PO ONE (11:43)
--- NOTE | 2021-12-20 12:14 | Surgery Consultation ---
Date of Consultation December 20, 2021 Assessment & Plan (1) Mesenteric mass: This is a 71y F with PMH/PSH of afib on eliquis, CKD, HOFFMAN cirrhosis, CHF, cholecystectomy, hysterectomy, gastric bypass, surgery for SBO who presents to the [facility] ED on 12/19/21 after referral by her PCP for weight gain c/f volume overload in the setting of CHF and abdominal pain. Workup with a CT a/p and an MRI revealed findings of a 2.2cm irregular soft tissue nodule in the central mesentery abutting and partially encasing the superior mesenteric vessels, highly suspicious for neoplasm vs metastatic disease, along with a 9mm hepatic nodule. Based on location of the mesenteric mass and proximity to mesenteric vessels we would not surgically resect or biopsy this here. Would recommend tertiary center for IR guided biopsy of the area with +/- surgical oncology capabilities if needed. Unclear if this is the cause of her abdominal pain and multiple symptoms, but she will need further workup of the mass for diagnosis. History of Present Illness Attending Physician: Darius Bates DO History of Present Illness This is a 71y F with PMH/PSH of afib on eliquis, CKD, HOFFMAN cirrhosis, CHF, cholecystectomy, hysterectomy, gastric bypass, surgery for SBO who presents to the [facility] ED on 12/19/21 after referral by her PCP for weight gain c/f volume overload and abdominal pain. Patient reports multiple symptoms of abdominal pain into her back, dizziness, GOOD, f/c, n/v that have been present on and off over the course of the last couple of months, but worsened over the last couple of days. She saw her PCP yesterday who was concerned for acute CHF and the etiology of her abdominal complaints and was told her to come into the ER for evaluation. She underwent a CT a/p that revealed findings concerning for a suspicious mass c/f neoplasm in her mesentery. She reports low appetite over the last 2days. Her last BM was 2 days ago, normally diarrhea is her baseline. Allergies Allergy/AdvReac Type Severity Reaction Status Date / Time No Known Allergies Allergy Verified 12/19/21 10:52 Home Medications Medication Instructions Recorded Confirmed Type cholecalciferol (vitamin D3) 25 2,000 unit PO QAM cap 02/07/21 12/19/21 History mcg (1,000 unit) capsule (Vitamin D3) atorvastatin 40 mg tablet (Lipitor) 40 mg PO QAM 06/30/21 12/19/21 History nystatin 100,000 unit/gram topical 1 applic TOPICAL HS 06/30/21 12/19/21 History powder (Nystop) bupropion HCl 150 mg 24 hr tablet, 150 mg PO QAM #30 tab 09/07/21 12/19/21 Rx extended release spironolactone 25 mg tablet 25 mg PO QAM #90 tab 09/14/21 12/19/21 Rx (Aldactone) apixaban 2.5 mg tablet 2.5 mg PO BID #180 tab 09/29/21 12/19/21 Rx pantoprazole 40 mg tablet,delayed 40 mg PO DAILYBB tab 10/16/21 12/19/21 History release (Protonix) carvedilol 12.5 mg tablet (Coreg) 12.5 mg PO BID #180 tab 10/23/21 12/19/21 Rx diltiazem HCl 240 mg 240 mg PO QAM #90 cap 10/31/21 12/19/21 Rx capsule,extended release 24 hr (Cardizem CD) furosemide 40 mg tablet (Lasix) 40 mg PO QAM tab 12/07/21 12/19/21 History Patient History Medical History Abdominal pain, acute, epigastric Abnormal computed tomography of abdomen and pelvis Abnormal results of liver function studies ARIADNE (acute kidney injury) Anemia Anemia HX OF - IRON INFUSION SEVERAL MONTHS AGO Anticoagulant long-term use Atrial fibrillation Dx approx 5 years ago - follows w/ Dr. Brewer (s/p remote pulmonary venous ablation X 2, on Eliquis and multiple negative chronotropes Bilateral pleural effusion Cardiac murmur Mild-moderate mitral regurgitation on 12/2019 echo, mild TR and NM Cholangitis Chronic pain of inguinal region Cirrhosis Cirrhosis Diaphoresis Dissection of vertebral artery Encounter for pre-operative examination Fecal incontinence GERD (gastroesophageal reflux disease) History of skin cancer & REMOVED History of sleep apnea HX SLEEP STUDY AND MACHINE, SINCE D/C'D - SLEEP APNEA RESOLVED Hydronephrosis of right kidney Hyperlipemia Hyperlipidemia LDL goal <70 Hypertension Infection due to ESBL-producing Escherichia coli Kidney stones Lesion of ureter biopsy 12/29/2020 (pt unsure of results) Melena Mesenteric mass Nephrolithiasis Pain in the abdomen Perineal itching, female Permanent atrial fibrillation PFO (patent foramen ovale) Suspected per records Recurrent pancreatitis HX OF / 3-4 YR AGO Scalp itch Skin abscess Skin irritation SOB (shortness of breath) on exertion TIA (transient ischemic attack) TIA (transient ischemic attack) 2018- [place] - no residual -NO ISSUES SINCE Tick bite Urinary tract infection Surgical History H/O: hysterectomy History of cardiac radiofrequency ablation D/T AFIB - PT REPORTS HAD 1 BUT MAYBE 2 - NOT SURE DATES ([place]) History of cardioversion multiple History of colonoscopy History of colostomy History of colostomy reversal History of cystoscopy and Right Ureteroscopy with stent. Following with Dr Rowe. 12/2020. History of esophagogastroduodenoscopy (EGD) History of tubal ligation History of umbilical hernia repair Hx of abdominal surgery FOR REMOVAL OF CYST - PT NOT SURE TYPE Hx of cholecystectomy Hx of laparoscopy Hx of removal of cyst Tubal ligation status Family History Grandmother Diabetes Hypertension Mother Heart disease Hypertension Grandfather Stomach cancer Hypertension Father Pancreatic cancer Hypertension Other No family history of adverse response to anesthesia Denies family history of Ovarian cancer Breast cancer Colorectal cancer Social History Smoking Status: Former smoker Tobacco Type: Cigarettes Second Hand Exposure: No; Hx Alcohol Use: No Hx Substance Use: No Preferred Language: Chinese Communication Ability: Effective Visual Impairment: No Limitations Hearing Ability: Normal Alkylation Operator Required: No Beliefs That Will Affect Care: None marital status: Current Living Situation: Spouse 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 status: retired 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 other: [employer] Feels Safe at Home: Yes caffeine: No Dental Care, Regularly: Yes Physical Activity Frequency: Does not Exercise Seatbelt Use: always Sunscreen Use: No Assistive Devices: None Review of Systems Constitutional: + fever, + chills, + anorexia and + weight gain Cardiovascular: Additional Comments: low chest pain Gastrointestinal: + abdominal pain, + bloating, + nausea, + vomiting and + diarrhea/loose stools Neurologic: + dizziness and + headache(s) Physical Exam Physical Exam: awake/alert Respiratory: normal respiratory effort Gastrointestinal (Abdomen): Inspection/Auscultation: + abdominal surgical scar; abdomen not distended Percussion/Palpation: + abdomen tender (generalized discomfort to palpation) and abdomen soft Results & Data ([facility]) Vital Signs (Past 12 Hours) Vital Signs Pulse Pulse Resp BP BP Pulse Ox 12/20/21 09:40 100 H 24 126/79 97 12/20/21 03:30 93 H 19 121/78 96 Diagnostic Findings MR abdomen wo/w con HISTORY: Evaluate mesenteric mass TECHNIQUE: Multiplanar multisequence MRI of the abdomen was performed both before and after the intravenous administration of 10 cc of Eovist contrast to evaluate the liver. COMPARISON STUDY: Abdomen and pelvis CT 12/19/2021. FINDINGS: There is small right pleural effusion, unchanged. The heart remains mildly enlarged. Suboptimal evaluation the abdomen due to motion artifact. Multiple T2 hyperintense nonenhancing lesion within the kidneys with the largest in the left kidney measuring 4.8 cm. These are consistent with cysts. No hydronephrosis. The adrenal glands and pancreas unremarkable. Prior cholecystectomy. The common bile duct measures up to 7.9 mm. This is considered to be within the range normal limits given the patient's postcholecystectomy state. No filling defects within the common bile duct. The main pancreatic duct is normal in course and caliber. No retroperitoneal lymphadenopathy. Redemonstration of the irregular and enhancing soft tissue nodule within the central mesentery abutting and partially encasing the superior mesenteric vessels. This measures 2.2 cm. This is highly suspicious for a neoplastic process/metastatic disease. Stable prominent cystic foci along the left side of the L3 and L4 vertebral body suggesting lateral thoracic meningoceles or perineural cysts. These are likely benign. Postoperative changes consistent with prior Ngoc-en-Y gastric bypass. Redemonstration of the exophytic 9 mm nodule within the right hepatic lobe inferiorly. This is suboptimally assessed due to the motion artifact at this location but could represent normal liver parenchyma. Otherwise, no suspicious hepatic lesions identified. The main portal vein is patent. Normal caliber abdominal aorta. No suspicious osseous lesions. IMPRESSION: 1. Redemonstration of the exophytic 9 mm nodule within the right hepatic lobe inferiorly. This is suboptimally assessed due to the motion artifact at this location but could represent normal liver parenchyma. Otherwise, no suspicious hepatic lesions identified. 2. There is again noted a 2.2 cm irregular soft tissue nodule within the central mesentery abutting and partially encasing the superior mesenteric vessels. This is high suspicious for a neoplastic process/metastatic disease. 3. Small right pleural effusion, unchanged. 4. Additional findings as described above. ACT 112: Negative or not required by law. Electronically signed by: Sky Gardner M.D. 12/20/2021 8:[address] abd pelvis IV con only CLINICAL HISTORY: abd pain lower b/l TECHNIQUE: Helical axial images of the abdomen and pelvis were obtained and displayed. Automated dose lowering techniques and/or adjustment according to patient size were utilized for this exam. This exam was performed with intravenous contrast. COMPARISON: Comparison is made to CT abdomen pelvis 06/22/2021 FINDINGS: Lower chest: Small right pleural effusion is seen with associated atelectasis. Cardiomegaly is seen. Liver: Irregularity and ill-defined hypodense nodules are again noted in the liver. These are unchanged from prior exam. Gallbladder and biliary tree: Patient is status post cholecystectomy. Physiologic prominence of the biliary ducts is noted. Pancreas: Unremarkable, no focal lesions. Spleen: Unremarkable. Adrenals: Unremarkable. Kidneys and ureters: Previously noted renal cysts are stable. Bladder: Unremarkable. Reproductive organs: Unremarkable. Bowel: Status post gastric surgery. A hiatal hernia is seen. Lymph nodes Retroperitoneal: Subcentimeter lymph nodes are noted. Mesenteric: There is a soft tissue nodule mesentery measuring 28 x 18 x 14 mm with surrounding fat stranding, previously measured 13 x 10 x 10 mm. Pelvic: Subcentimeter lymph nodes are noted. Peritoneum: Normal. Vessels: Atherosclerotic calcifications are seen. Abdominal wall: Midline incision is seen. Bones: Unremarkable. IMPRESSION: 1. Interval enlargement of a mesenteric soft tissue nodule with spiculation surrounding fat stranding. Findings are concerning for neoplasm. 2. Redemonstration of ill-defined nodules in the liver. If further evaluation is desired, MRI hepatic mass protocol can be considered. 3. Cardiomegaly and right pleural effusion are partially visualized. 4. Additional findings as above. ACT 112: Negative or not required by law. PG Care Time/CCT Total # of Minutes Spent Total Time Spent with Patient: Total time spent is greater than 50% in coordination of care (as documented) at patient's floor/unit and/or counseling patient: Coding Level of Care Code 62171 Initial Inpt Care Lvl 1 Diagnoses Mesenteric mass K63.89
--- NOTE | 2021-12-20 15:37 | Discharge Summary ---
Date of Service December 20, 2021 Admission HPI Per Admitting Provider This is a 71-year-old female with past medical history of Calvillo, CKD, previous atrial fibrillation that presents complaining of abdominal pain and weight gain. Patient is a decent historian. 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 She follows with a full stack developer at an outside facility. Patient states that over the past few days she has had abdominal pain along with a 7 pound weight gain. There was some minimal shortness of breath associated with this. Patient went to see her primary care provider earlier today. In their office she had a low- grade fever. Because the patient's pain and weight gain, there was concern that she had acute CHF and was told to present to the emergency room for further evaluation. The emergency room she was afebrile with a low normal blood pressure. Work-up included a CT of the abdomen and revealed a possible mesenteric mass that was concerning for neoplasm. There is also a liver nodule although, looking back on previous films I did see if this was noted in previous ultrasounds. Patient is now being mated for shortness of breath secondary to fluid overload and a new potential gastric neoplasm. Admission Exam Per Admitting Provider Constitutional: cooperative; no acute distress Neck: trachea midline, no thyromegaly Respiratory: normal respiratory effort Auscultation: lungs clear to auscultation bilaterally; no crackles, no rales, no rhonchi and no wheezes Cardiovascular: Rate/Rhythm: regular rate and regular rhythm Heart Sounds: normal S1 and normal S2 Extremities: + edema (2+) Gastrointestinal (Abdomen): Inspection/Auscultation: abdomen normal to inspection Percussion/Palpation: + abdomen tender, + guarding, abdomen soft and + fluid wave; abdomen not rigid and no hepatosplenomegaly Skin: no rashes, warm and dry Principal Diagnosis ABD pain Discharge Exam General: Lying in bed in no acute distress HEENT: Normocephalic atraumatic Neck: Normal to visual inspection Cardiac: Irregularly irregular rhythm I did not appreciate any significant murmurs rubs or gallops, normal S1, normal S2, negative pedal edema, negative calf tenderness Respiratory: Clear to auscultation bilaterally with symmetrical chest expansion I did not appreciate any significant wheezes, rales, rhonchi GI: Soft, distended, positive right upper quadrant and right lower quadrant tenderness MSK: Moves all extremities Neuro: Alert and oriented x3 Psych: Calm and cooperative with the interview Discharge Data Allergies Allergy/AdvReac Type Severity Reaction Status Date / Time No Known Allergies Allergy Verified 12/19/21 10:52 Consultations 12/19/21 12:18 ED Decision to Admit Stat 12/19/21 17:39 Consult Gastroenterology Routine 12/20/21 11:25 Consult General Surgery Routine Ordered Studies 12/19/21 09:59 CT abd pelvis IV con only Stat 12/19/21 14:22 MR abdomen wo/w con Routine Hospital Course (1) Abdominal mass: (2) Liver cirrhosis secondary to CALVILLO: (3) Atrial fibrillation: (4) CKD (chronic kidney disease), stage III: 71-year-old female with past medical history of Calvillo, CKD, previous A. fib presents complaining of abdominal pain and weight gain. #Fluid overload Likely multifactorial, combination of chronic diastolic CHF, cirrhosis/CALVILLO. Most recent echo was from 04/21 demonstrates an EF of 6065%, moderate tricuspid regurg, mild mitral regurg. As an outpatient patient is on 40 mg of Lasix p.o. daily. -12/20 echo normal LV size and systolic function, EF 60 to 65%, no regional wall motion abnormalities, moderate concentric LVH, severe biatrial dilation, A. fib. Similar findings to study on 04/09/2021 -Lasix 40 mg IV twice daily, transition to po on d/c -Started Aldactone 25 mg daily -Patient reports improvement in her symptoms since admission #Abdominal mass CT demonstrating abdominal mass which could be related to patient's underlying presentation.Abdominal MRI was performed demonstrating exophytic 9 mm nodule within the right hepatic lobe inferiorly suboptimally assessed due to motion artifact could represent normal liver parenchyma. 2.2 cm irregular soft tissue nodule within the central mesentery abutting and partially encasing the superior mesenteric vessel suspicious for neoplastic versus metastatic disease. -GI consulted following recommendations -Consult surgery -Outpatient follow-up for CALVILLO -General surgery consulted appreciate recommendations -Unable to perform procedure here recommending referral to tertiary care center -We will arrange for outpatient follow-up with interventional radiology or surgical oncology as expeditiously as possible -Patient requested appointment with [facility] [place] [place] -If we do not confirm an appt by discharge. Case Management will Follow up as an outpatient. #Atrial fibrillation In PCPs office patient was then rapid atrial fibrillation, currently while hospitalized EKG demonstrating rate controlled A. fib at 100 bpm. -Monitor on telemetry -Continued carvedilol 12.5 mg p.o. twice daily -Continued diltiazem 240 mg p.o. every morning -Continued apixaban 2.5 mg p.o. twice daily #Liver cirrhosis secondary to CALVILLO -GI consulted recommending outpatient follow-up -Continue Aldactone -Continue Lasix -Ammonia 15 -Outpt CMP tomorrow #Constipation We will initiate bowel regimen with MiraLAX twice daily #Chest pain secondary to costochondritis Reproducible on physical exam. Thought to be costochondritis David Kumar MD PGY 3, FCM This chart was completed utilizing [employer] voice recognition software. Grammatical errors, random word insertions, pronoun errors, and in complete sentences are an occasional consequence of the system. Any questions or concerns about the content, text, or information contained within the body of this dictation should be addressed directly to the physician for clarification. Total Time Total Time Spent Total Time Spent (In Minutes): >30 Discharge Plan Discharge Items Patient Disposition: Home - Self-Care Reason For Visit: ABD PAIN Discharge Diagnosis: Abdominal pain with new suspicious abdominal mass requiring biopsy in tertiary care center Activity: Resume your previous activity Non-emergency contact: Primary Care Provider Call non-emergency contact if: you have any medication questions and your symptoms worsen Follow-up/Referrals: Christopher Guevara MD [Primary Care Provider] - Diet: Low Sodium (2gm) Addtl Attending Provider Instructions: Care instructions: You were admitted to [facility] for treatment of abdominal pain. You were assessed in the emergency department and provided with Lasix and remove some fluid with improvement in your subjective symptoms. Your chest pain was evaluated and determined to be costochondritis. We recommend stretching exercises. Your liver enzymes were elevated on admission. We have provided you with an order to get a laboratory test called a CMP. We recommend you have that test performed tomorrow and follow-up with your primary care provider at your earliest convenience. While hospitalized it was noted on CT and MRI abdominal imaging that there was a suspicious mass near your superior mesenteric artery. This will require further evaluation and biopsy. Unfortunately we are unable to perform this procedure at our facility. We discussed options and you elected for outpatient elective referral to interventional radiology. We have requested that our employment evaluator/case manager assist in helping you schedule an appointment as soon as possible. To Do: -Start taking Aldactone 25 mg/day -CMP Lab Test tomorrow -Schedule follow-up with Dr. Guevara -Follow-up with interventional radiology for biopsy, if we do not confirm an appt by discharge. Case Management will Follow up as an outpatient. A discharge summary will be sent to your primary care physician to ensure continuity of care. Please bring this discharge summary with you to your next office appointment so that your provider can review it at that time. Follow-up appointments: - Keep all your follow-up appointments as already scheduled. If you cannot make an appointment, notify your provider. - Please call to request a follow-up appointment with your primary care physician within one week of discharge. Please let us know if you are unable to obtain an appointment Follow-up labs: - Please go to a lab nearest you and obtain the requested lab work. Please have this completed at least 3 hours before your doctor's appointment (or the day before your appointment if possible). Medications: - Your medication list has been reviewed and reconciled upon discharge to ensure accuracy and continuity of care. - You are provided with a list of all your current medications at this time. Please review this list closely and make note of any changes. - Please take all of your medications exactly as prescribed. - Tell your primary care provider if you cannot afford your medications. - Call your primary care provider if you are having any side effects or any other problems. - Call your primary care provider before taking any over the counter medications or supplements, including herbals and vitamins, because some of these may interact with your current medications and/or make your symptoms worse. Symptoms: Please call your primary care provider for symptoms including, but not limited to: fevers (temperatures greater than 100.4), chills, intractable nausea or vomiting, diarrhea, rash, shortness of breath, bleeding, pain, or if you experience any worsening of the symptoms that brought you to the hospital. For EMERGENCY and VERY SERIOUS health-related issues, such as chest pain, shortness of breath, or sudden onset of the symptoms that brought you to the hospital, you may need to call 911 or go directly to the Emergency Room It has been our privilege to take care of you during your hospital stay. And Above All Else Feel Better! Best Wishes, David Kumar MD PGY3 Resident, Family & Community Medicine [facility] Residency at [facility] [place] [address], [address] MC: [address] [place] [address], [place] [address] Pending Studies at Discharge: No Stand-Alone Forms: My [facility], Smoking Cessation Medications and DC Order Prescriptions: New spironolactone 25 mg Tablet 25 mg PO QAM 30 Days Qty: 30 RF: 0 Continued cholecalciferol (vitamin D3) [Vitamin D3] 25 mcg (1,000 unit) capsule 2,000 unit PO QAM RF: 0 carvedilol [Coreg] 12.5 mg tablet 12.5 mg PO BID Qty: 180 RF: 3 diltiazem HCl [Cardizem CD] 240 mg capsule,extended release 24hr 240 mg PO QAM Qty: 90 RF: 3 spironolactone [Aldactone] 25 mg tablet 25 mg PO QAM Qty: 90 RF: 3 apixaban 2.5 mg tablet 2.5 mg PO BID Qty: 180 RF: 3 pantoprazole [Protonix] 40 mg tablet,delayed release (DR/EC) 40 mg PO DAILYBB RF: 0 furosemide [Lasix] 40 mg tablet 40 mg PO QAM RF: 0 bupropion HCl 150 mg tablet extended release 24 hr 150 mg PO QAM Qty: 30 RF: 5 atorvastatin [Lipitor] 40 mg tablet 40 mg PO QAM RF: 0 nystatin [Nystop] 100,000 unit/gram powder 1 applic topical HS RF: 0 Discharge Orders: Discharge Order (Routine); Ordered 12/20/21 Ordered By: David Kumar Admission Data Admit Date/Time: 12/19/21 14:22 Attending Provider: Darius Bates Admit Provider: Jose Enrique Prado Primary Care Provider: Christopher Guevara Other Providers: Jose Enrique Prado ; Ashwin Foster ; Antonio Leger ; Aidan Javier ; Heladio Venegas ; Davi Pantoja Jr ; Ziggy Michelle ; Damian Cool ; Bina Ramos ; Jose R Hernandez ; Holden,Rosendo R Other Interventions: Discharge Summary Assessment (RN) Last Done: 12/20/21 16:59 Supervising Physician Co-Signing Physician Notes I personally examined the patient and verified all baxter points of history and exam, discussed case, and agree with decision making with Dr Kumar. Feeling better and would like to go home. Discussed LFTs being a little more up than yesterday but not in and of themselves concerning particular given her historyand need for repeat LFTs later this week in the office. Discussed need for biopsyand options of trying to transfer inpatient to inpatient for biopsy versus trying to get arranged as an outpatienthe preferred the latter. Extensive discussion of her multitude of symptoms, answered all questions to the best my ability and to her satisfaction. Vitals noted, in general she is awake and alert pleasant no distress. HEENT normocephalic atraumatic mucous membranes moist. Breathing unlabored no accessory muscle use good effort. Abdomen is soft nondistended nontender. Neur o without focal deficits. Abdominal painprobably multifactorial and somewhat nonspecificmass probably plays a role, liver disease may play a role, constipation may play a role. Improved, and safe to go home. Complexity and location of lesion, combined with morbid obesity with BMI of 43.9, makes it most rational to have specialist such as interventional radiology obtain biopsyresident physician is working on facilitating this as an outpatient. Labs later this week as an outpatient, close PCP follow-up. Otherwise stable for home.
--- NOTE | 2021-12-20 18:14 | Billing Data ---
Date of Service December 20, 2021 Coding Level of Care Code D/C DAY MANAGEMENT >30 MINS
[2021-12-20] MEDS ORDERED: POLYETHYLENE (MIRALAX) 17 GM PACK PO SCH (21:00)
== END 2021-12-21 09:18 | disposition home or self-care (01) | DRG 432 ==
LOC: ED 09:39 → SUATTDRO 14:22 → EDINP 14:22
DX: K75.81 Nonalcoholic steatohepatitis (NASH); E87.70 Fluid overload, unspecified; R19.00 Intra-abdominal and pelvic swelling, mass and lump, unspecified site; M94.0 Chondrocostal junction syndrome [Tietze]; R18.8 Other ascites; D49.0 Neoplasm of unspecified behavior of digestive system; I50.32 Chronic diastolic (congestive) heart failure; Z68.41 Body mass index [BMI] 40.0-44.9, adult; K59.00 Constipation, unspecified; Z87.891 Personal history of nicotine dependence; I50.33 Acute on chronic diastolic (congestive) heart failure; E66.01 Morbid (severe) obesity due to excess calories; I48.21 Permanent atrial fibrillation; I13.0 Hypertensive heart and chronic kidney disease with heart failure and stage 1 through stage 4 chronic kidney disease, or unspecified chronic kidney disease; K74.69 Other cirrhosis of liver; N18.30 Chronic kidney disease, stage 3 unspecified; Z83.3 Family history of diabetes mellitus; Z79.01 Long term (current) use of anticoagulants

== ENCOUNTER 2022-12-22 16:47 | Inpatient (IN) ==
[2022-12-22] MEDS ORDERED: CEFEPIME 20 ML IV STA (17:13)
[2022-12-22 17:30] LABS: Appearance Urine Cloudy (Clear); Bacteria Urine Automated Negative (Negative); Bilirubin Urine Negative (Negative); Blood Urine 1+ (Negative); Color Urine Yellow; Epithelial Cell Urine Auto 20-30 /lpf (0-5); Glucose Urine UA Negative (Negative); Ketones Urine Negative (Negative); Leukocyte Esterase Urine Trace (Negative); Nitrite Urine Positive (Negative); Protein Urine 1+ (Negative); Specific Gravity Urine 1.011 (1.000-1.030); Urobilinogen Urine Negative (Negative); WBC Urine Automated >30 /hpf (0-5)
--- NOTE | 2022-12-22 17:33 | Emergency Department Note ---
History of Present Illness General Chief complaint: Abdominal Pain Stated complaint: ABD PAIN,GOOD,CHILLS,LEG PAIN Time Seen by Provider: 12/22/22 17:03 Source: patient and family ( who is at the bedside) Mode of arrival: ambulatory Limitations: no limitations History of Present Illness Maximum Pain Intensity: 9 This patient is a 9-year-old female comes in saying that she is "very sick". She is been feeling not well for couple weeks is gotten worse over last couple days she was diagnosed with a UTI and started on Macrobid by her urologist a couple days ago she has been taking that she is bilateral lower abdominal pain. No dysuria hematuria. She had normal bowel movements no diarrhea constipation she said fever started today she had a little bit of nausea and vomiting as well. No back pain. No chest pain or shortness of breath or cough. Denies that she is allergic to any medication does have pain in her legs bilaterally. She does have a history of CHF and they have increased her Lasix and she has lost some weight recently. She is also on chronic anticoagulants with apixaban and denies any fall or trauma she also started chemo recently for lymphoma. She took her first dose about 2 weeks ago was followed by Dr. Jade for this. Home Medications Medication Instructions Recorded Confirmed Type bupropion HCl 150 mg 24 hr tablet, 150 mg PO QAM #90 tabs 03/01/22 12/22/22 Rx extended release nystatin 100,000 unit/gram topical 1 applic topical HS PRN fungal site 06/24/22 12/22/22 History powder (Nystop) atorvastatin 40 mg tablet (Lipitor) 40 mg PO QAM #90 tabs 07/06/22 12/22/22 Rx spironolactone 25 mg tablet 25 mg PO QAM #90 tabs 08/21/22 12/22/22 Rx (Aldactone) carvedilol 12.5 mg tablet (Coreg) 12.5 mg PO BID #180 tabs 10/31/22 12/22/22 Rx furosemide 40 mg tablet (Lasix) 40 mg PO Q OTHER DAY weight gain 11/12/22 12/22/22 Rx #90 tabs cholecalciferol (vitamin D3) 25 1,000 unit PO QAM 11/20/22 12/22/22 History mcg (1,000 unit) capsule (Vitamin D3) diltiazem HCl 180 mg capsule,24 180 mg PO DAILY #90 caps 11/20/22 12/22/22 Rx hr,extended release allopurinol 300 mg tablet 300 mg PO QAM 12/04/22 12/22/22 History apixaban 2.5 mg tablet 2.5 mg PO BID #180 tabs 12/07/22 12/22/22 Rx hydrocodone 5 mg-acetaminophen 325 1 tab PO Q4H PRN pain #10 tabs 12/10/22 12/22/22 Rx mg tablet pantoprazole 40 mg tablet,delayed 20 mg PO BID 12/10/22 12/22/22 History release nitrofurantoin macrocrystal 100 mg 100 mg PO BID #14 caps 12/20/22 12/22/22 Rx capsule oxycodone-acetaminophen 5 mg-325 1 tab PO Q6H PRN pain #10 tabs 12/20/22 12/22/22 Rx mg tablet (Percocet) Allergies Allergy/AdvReac Type Severity Reaction Status Date / Time No Known Allergies Allergy Verified 12/22/22 17:58 Past Med/Surg History Medical History Anticoagulant long-term use B-cell lymphoma NEW DX Carcinoid tumor PET SCAN AT [facility]> "PLANS TO TREAT FOR B CELL LYMPHOMA SHOULD TREAT CARCINOID TUMOR" Cardiac murmur Mild MR and TR per 10/2022 ECHO Chronic diastolic congestive heart failure Chronic pain of inguinal region Cirrhosis CKD (chronic kidney disease), stage III Depression Dissection of vertebral artery pt unsure/unaware Dysuria GERD (gastroesophageal reflux disease) History of anemia IRON INFUSIONS IN PAST History of COVID-19 07/2022>RESOLVED History of skin cancer Hx of pancreatitis Hyperlipemia Hypertension Kidney stones CURRENT BUT NO CAUSES NO PROBLEM Lesion of ureter biopsy 12/29/2020 Mesenteric mass recent PET scan --- RECENT B CELL LYMPHOMA CONFIRMED Permanent atrial fibrillation PFO (patent foramen ovale) Suspected per records Prediabetes Sleep apnea NO DEVICE SOB (shortness of breath) on exertion TIA (transient ischemic attack) 2018- [place] - no residual -NO ISSUES SINCE Surgical History H/O: hysterectomy History of bone marrow biopsy History of bowel resection WITH COLOSTOMY R/T SBO History of cardiac radiofrequency ablation D/T AFIB - PT REPORTS HAD 1 BUT MAYBE 2 - NOT SURE DATES ([facility]) History of cardioversion multiple History of colonoscopy (05/2022) History of colostomy r/t bowel blockage History of colostomy reversal History of cystoscopy History of esophagogastroduodenoscopy (EGD) History of tubal ligation History of umbilical hernia repair Hx of abdominal surgery FOR REMOVAL OF CYST - PT NOT SURE TYPE Hx of cholecystectomy Hx of laparoscopy Hx of lymph node biopsy Hx of removal of cyst Port-A-Cath in place (12/10/22) Access port placement and use of fluoroscopy. Dr. 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8 C H Temperature Source Oral Pulse Rate 116 H Respiratory Rate 20 Blood Pressure 128/88 Blood Pressure Mean 101 Blood Pressure Position Sitting Pulse Oximetry 97 Oxygen Delivery Method Room Air Sepsis Recent Fever Within 48 Hours No Sepsis New/Unexplained Change in Mental Status No Sepsis Action Taken by Nursing No Action Required General: Well developed well nourished older female who in no acute distress, breathing comfortably on room air. Normal speech HEENT: Normal cephalic atraumatic. Pupils are equal round and reactive to light. Extraocular movements are intact. Oropharynx is pink with moist mucous membranes. No swelling of the mouth lips or tongue. Neck: Supple with a midline trachea. No meningeal signs or stiffness, no JVD or bruits. No Stridor. Chest: Clear to auscultation bilaterally. No wheezes or rhonchi. No increased work of breathing. Heart: Regular rate and rhythm without murmurs or gallops. Abdomen: Soft, moderately tender in the lower abdomen bilaterally nondistended without rebound guarding or rigidity. Extremities: No cyanosis clubbing or edema. No calf tenderness or assymetry. Le gs are mildly tender bilaterally but not red or warm Spine/Back. Non tender to palpation. No CVA tenderness Skin: Good turgor without rashes. Neurologic exam: Cranial nerves two through 12 are intact. Motor and sensation are intact and symmetrical throughout. Course Administered Medications Discontinued Medications Cefepime HCl (Maxipime) 20 mls @ 5 mls/min IV NOW STA Stop: 12/22/22 17:16 Last Admin: 12/22/22 18:01 Dose: 5 mls/min Documented By: TRUNG Critical Care Time Critical Care Time: Yes Total Critical Care Time: 32 Due to the patient's complex medical history, concern for sepsis, tachycardia, need for multiple blood work, IV antibiotics and frequent reassessment and consultation with hospitalist, I have personally spent greater than 32 minutes of critical care time in the direct management of this patient. This includes bedside care, interpretation of diagnostic studies, and testing, discussion with consultants, patient, and family members, and other required patient management activities. This 32 minutes is in excess of all separately billable procedures. Medical Decision Making Differential Diagnosis Sepsis, UTI, obstructive uropathy, complication related to cancer, neutropenia, intra-abdominal infection or process, bowel obstruction, cardiac disease, CHF Medical Records Attestation: I reviewed the patient's medical records. Home Medications Current Medication List: was personally reviewed by me Laboratory Data Attestation: I reviewed the patient's lab results. Result diagrams: 12/22/22 17:31 12/22/22 17:37 Lab Results 12/22/22 12/22/22 12/22/22 Range/Units 17:05 17:23 17:31 WBC 0.18 L* (4.8-10.8) K/ul RBC 3.57 L (3.93-5.22) M/uL Hgb 12.2 (12.0-16.0) g/dl Hct 35.7 (34.1-44.9) % MCV 100.0 (80.0-100.0) fL MCH 34.2 H (25.0-34.0) pg MCHC 34.2 (32.0-36.0) g/dL RDW Std Deviation 44.7 (36.4-46.3) fL RDW Coeff of Rodrigo 12.2 (11.5-14.5) % Plt Count 51 L (130-400) K/uL MPV 10.2 (9.4-12.3) fL Immature Gran % (Auto) Cancelled Neut % (Auto) Cancelled Lymph % (Auto) Cancelled [place] % (Auto) Cancelled Eos % (Auto) Cancelled Baso % (Auto) Cancelled Neut # (Auto) Cancelled Lymph # (Auto) Cancelled [place] # (Auto) Cancelled Eos # (Auto) Cancelled Baso # (Auto) Cancelled Immature Gran # (Auto) Cancelled Neutrophils % (Manual) Cancelled Band Neutrophils % Cancelled Lymphocytes % (Manual) Cancelled Prolymphocyte % Cancelled Reactive Lymphs % (Man) Cancelled Monocytes % (Manual) Cancelled Eosinophils % (Manual) Cancelled Basophils % (Manual) Cancelled Metamyelocytes % (Man) Cancelled Myelocytes % (Man) Cancelled Promyelocytes % (Man) Cancelled Blast Cells % (Manual) Cancelled Plasma Cell % (Manual) Cancelled Other Cells % Cancelled Nucleated RBC % Cancelled Neutrophils # (Manual) Cancelled Band Neutrophils # Cancelled Total Absolute Neuts Cancelled Lymphocytes # (Manual) Cancelled Prolymphocyte # Cancelled Reactive Lymphs # Cancelled Total Abs Lymphocytes Cancelled Monocytes # (Manual) Cancelled Eosinophils # (Manual) Cancelled Basophils # (Manual) Cancelled Metamyelocytes # (Man) Cancelled Myelocytes # (Manual) Cancelled Promyelocytes # (Man) Cancelled Blast Cells # (Man) Cancelled Plasma Cell # (Manual) Cancelled Other Cells # Cancelled Nucleated RBCs # (Man) Cancelled Hypersegmented Neuts Cancelled Hyposegmented Neuts Cancelled Hypogranular Neuts Cancelled Large Granular Lymphs Cancelled # Lrg Granular Lymphs Cancelled Hairy Cells Cancelled Smudge Cells Cancelled Toxic Granulation Cancelled Toxic Vacuolation Cancelled Dohle Bodies Cancelled Jyoti Rods Cancelled Hypogranular Platelets Cancelled Clumped Platelets Cancelled Giant Platelets Cancelled Platelet Satelliting Cancelled RBC Morphology Cancelled Polychromasia Cancelled Hypochromasia Cancelled Poikilocytosis Cancelled Basophilic Stippling Cancelled Anisocytosis Cancelled Microcytosis Cancelled Macrocytosis Cancelled Spherocytes Cancelled Pappenheimer Bodies Cancelled Sickle Cells Cancelled Target Cells Cancelled Tear Drop Cells Cancelled Ovalocytes Cancelled Stomatocytes Cancelled [place] Bodies Cancelled Echinocytes Cancelled Acanthocytes (Spur) Cancelled Rouleaux Cancelled RBC Agglutinates Cancelled Schistocytes Cancelled [place] Cell Cancelled Sodium (136-145) mmol/L Potassium (3.5-5.1) mmol/L Chloride (98-107) mmol/L Carbon Dioxide (21-32) mmol/L Anion Gap (3-11) BUN (6-23) mg/dl Creatinine (0.6-1.2) mg/dl Est Cr Clr Drug Dosing ml/min Est GFR ( Amer) ml/min Est GFR (Non-Af Amer) ml/min BUN/Creatinine Ratio (10-20) Glucose (70-99(Fasting)) mg/dl Lactate (0.4-2.0) mmol/L Calcium (8.5-10.1) mg/dl Magnesium (1.7-2.4) mg/dl Total Bilirubin (0.2-1.0) mg/dl Direct Bilirubin (0-0.2) mg/dl AST (13-39) U/L ALT (7-52) U/L Alkaline Phosphatase (34-104) U/L Troponin I High Sens (0-14) pg/ml C-Reactive Protein (0-0.5) mg/dl B-Natriuretic Peptide (0-100) pg/ml Total Protein (6.0-8.3) gm/dl Albumin (3.4-5.0) gm/dl Procalcitonin (0-0.5) ng/ml Urine Color Yellow Urine Appearance Cloudy A (Clear) Urine pH 5.0 (4.5-7.5) Ur Specific [place] 1.011 (1.000-1.030) Urine Protein 1+ H (Negative) Urine Glucose (UA) Negative (Negative) Urine Ketones Negative (Negative) Urine Blood 1+ H (Negative) Urine Nitrite Positive A (Negative) Urine Bilirubin Negative (Negative) Urine Urobilinogen Negative (Negative) Ur Leukocyte Esterase Trace H (Negative) Urine WBC (Auto) >30 H (0-5) /hpf Urine RBC (Auto) 5-10 H (0-4) /hpf U Hyaline Cast (Auto) 1-5 (0-5) /lpf U Epithel Cells (Auto) 20-30 H (0-5) /lpf Urine Bacteria (Auto) Negative (Negative) SARS-CoV-2, RNA, NAAT NEGATIVE (NEGATIVE) Blood Parasites ID Cancelled 12/22/22 12/22/22 12/22/22 Range/Units 17:37 17:37 17:37 WBC (4.8-10.8) K/ul RBC (3.93-5.22) M/uL Hgb (12.0-16.0) g/dl Hct (34.1-44.9) % MCV (80.0-100.0) fL MCH (25.0-34.0) pg MCHC (32.0-36.0) g/dL RDW Std Deviation (36.4-46.3) fL RDW Coeff of Rodrigo (11.5-14.5) % Plt Count (130-400) K/uL MPV (9.4-12.3) fL Immature Gran % (Auto) Neut % (Auto) Lymph % (Auto) [place] % (Auto) Eos % (Auto) Baso % (Auto) Neut # (Auto) Lymph # (Auto) [place] # (Auto) Eos # (Auto) Baso # (Auto) Immature Gran # (Auto) Neutrophils % (Manual) Band Neutrophils % Lymphocytes % (Manual) Prolymphocyte % Reactive Lymphs % (Man) Monocytes % (Manual) Eosinophils % (Manual) Basophils % (Manual) Metamyelocytes % (Man) Myelocytes % (Man) Promyelocytes % (Man) Blast Cells % (Manual) Plasma Cell % (Manual) Other Cells % Nucleated RBC % Neutrophils # (Manual) Band Neutrophils # Total Absolute Neuts Lymphocytes # (Manual) Prolymphocyte # Reactive Lymphs # Total Abs Lymphocytes Monocytes # (Manual) Eosinophils # (Manual) Basophils # (Manual) Metamyelocytes # (Man) Myelocytes # (Manual) Promyelocytes # (Man) Blast Cells # (Man) Plasma Cell # (Manual) Other Cells # Nucleated RBCs # (Man) Hypersegmented Neuts Hyposegmented Neuts Hypogranular Neuts Large Granular Lymphs # Lrg Granular Lymphs Hairy Cells Smudge Cells Toxic Granulation Toxic Vacuolation Dohle Bodies Jyoti Rods Hypogranular Platelets Clumped Platelets Giant Platelets Platelet Satelliting RBC Morphology Polychromasia Hypochromasia Poikilocytosis Basophilic Stippling Anisocytosis Microcytosis Macrocytosis Spherocytes Pappenheimer Bodies Sickle Cells Target Cells Tear Drop Cells Ovalocytes Stomatocytes [place] Bodies Echinocytes Acanthocytes (Spur) Rouleaux RBC Agglutinates Schistocytes [place] Cell Sodium 138 (136-145) mmol/L Potassium 3.7 (3.5-5.1) mmol/L Chloride 103 (98-107) mmol/L Carbon Dioxide 28 (21-32) mmol/L Anion Gap 7 (3-11) BUN 19 (6-23) mg/dl Creatinine 1.24 H (0.6-1.2) mg/dl Est Cr Clr Drug Dosing 48.1 ml/min Est GFR ( Amer) 51.0 ml/min Est GFR (Non-Af Amer) 44.0 ml/min BUN/Creatinine Ratio 15.3 (10-20) Glucose 134 H (70-99(Fasting)) mg/dl Lactate 1.2 (0.4-2.0) mmol/L Calcium 8.5 (8.5-10.1) mg/dl Magnesium 1.2 L (1.7-2.4) mg/dl Total Bilirubin 1.2 H (0.2-1.0) mg/dl Direct Bilirubin 0.3 H (0-0.2) mg/dl AST 10 L (13-39) U/L ALT 7 (7-52) U/L Alkaline Phosphatase 81 (34-104) U/L Troponin I High Sens 39.4 H (0-14) pg/ml C-Reactive Protein (0-0.5) mg/dl B-Natriuretic Peptide (0-100) pg/ml Total Protein 6.2 (6.0-8.3) gm/dl Albumin 3.3 L (3.4-5.0) gm/dl Procalcitonin 0.14 (0-0.5) ng/ml Urine Color Urine Appearance (Clear) Urine pH (4.5-7.5) Ur Specific [place] (1.000-1.030) Urine Protein (Negative) Urine Glucose (UA) (Negative) Urine Ketones (Negative) Urine Blood (Negative) Urine Nitrite (Negative) Urine Bilirubin (Negative) Urine Urobilinogen (Negative) Ur Leukocyte Esterase (Negative) Urine WBC (Auto) (0-5) /hpf Urine RBC (Auto) (0-4) /hpf U Hyaline Cast (Auto) (0-5) /lpf U Epithel Cells (Auto) (0-5) /lpf Urine Bacteria (Auto) (Negative) SARS-CoV-2, RNA, NAAT (NEGATIVE) Blood Parasites ID 12/22/22 12/22/22 Range/Units 17:37 17:37 WBC (4.8-10.8) K/ul RBC (3.93-5.22) M/uL Hgb (12.0-16.0) g/dl Hct (34.1-44.9) % MCV (80.0-100.0) fL MCH (25.0-34.0) pg MCHC (32.0-36.0) g/dL RDW Std Deviation (36.4-46.3) fL RDW Coeff of Rodrigo (11.5-14.5) % Plt Count (130-400) K/uL MPV (9.4-12.3) fL Immature Gran % (Auto) Neut % (Auto) Lymph % (Auto) [place] % (Auto) Eos % (Auto) Baso % (Auto) Neut # (Auto) Lymph # (Auto) [place] # (Auto) Eos # (Auto) Baso # (Auto) Immature Gran # (Auto) Neutrophils % (Manual) Band Neutrophils % Lymphocytes % (Manual) Prolymphocyte % Reactive Lymphs % (Man) Monocytes % (Manual) Eosinophils % (Manual) Basophils % (Manual) Metamyelocytes % (Man) Myelocytes % (Man) Promyelocytes % (Man) Blast Cells % (Manual) Plasma Cell % (Manual) Other Cells % Nucleated RBC % Neutrophils # (Manual) Band Neutrophils # Total Absolute Neuts Lymphocytes # (Manual) Prolymphocyte # Reactive Lymphs # Total Abs Lymphocytes Monocytes # (Manual) Eosinophils # (Manual) Basophils # (Manual) Metamyelocytes # (Man) Myelocytes # (Manual) Promyelocytes # (Man) Blast Cells # (Man) Plasma Cell # (Manual) Other Cells # Nucleated RBCs # (Man) Hypersegmented Neuts Hyposegmented Neuts Hypogranular Neuts Large Granular Lymphs # Lrg Granular Lymphs Hairy Cells Smudge Cells Toxic Granulation Toxic Vacuolation Dohle Bodies Jyoti Rods Hypogranular Platelets Clumped Platelets Giant Platelets Platelet Satelliting RBC Morphology Polychromasia Hypochromasia Poikilocytosis Basophilic Stippling Anisocytosis Microcytosis Macrocytosis Spherocytes Pappenheimer Bodies Sickle Cells Target Cells Tear Drop Cells Ovalocytes Stomatocytes [place] Bodies Echinocytes Acanthocytes (Spur) Rouleaux RBC Agglutinates Schistocytes [place] Cell Sodium (136-145) mmol/L Potassium (3.5-5.1) mmol/L Chloride (98-107) mmol/L Carbon Dioxide (21-32) mmol/L Anion Gap (3-11) BUN (6-23) mg/dl Creatinine (0.6-1.2) mg/dl Est Cr Clr Drug Dosing ml/min Est GFR ( Amer) ml/min Est GFR (Non-Af Amer) ml/min BUN/Creatinine Ratio (10-20) Glucose (70-99(Fasting)) mg/dl Lactate (0.4-2.0) mmol/L Calcium (8.5-10.1) mg/dl Magnesium (1.7-2.4) mg/dl Total Bilirubin (0.2-1.0) mg/dl Direct Bilirubin (0-0.2) mg/dl AST (13-39) U/L ALT (7-52) U/L Alkaline Phosphatase (34-104) U/L Troponin I High Sens (0-14) pg/ml C-Reactive Protein 23.57 H (0-0.5) mg/dl B-Natriuretic Peptide 245 H (0-100) pg/ml Total Protein (6.0-8.3) gm/dl Albumin (3.4-5.0) gm/dl Procalcitonin (0-0.5) ng/ml Urine Color Urine Appearance (Clear) Urine pH (4.5-7.5) Ur Specific [place] (1.000-1.030) Urine Protein (Negative) Urine Glucose (UA) (Negative) Urine Ketones (Negative) Urine Blood (Negative) Urine Nitrite (Negative) Urine Bilirubin (Negative) Urine Urobilinogen (Negative) Ur Leukocyte Esterase (Negative) Urine WBC (Auto) (0-5) /hpf Urine RBC (Auto) (0-4) /hpf U Hyaline Cast (Auto) (0-5) /lpf U Epithel Cells (Auto) (0-5) /lpf Urine Bacteria (Auto) (Negative) SARS-CoV-2, RNA, NAAT (NEGATIVE) Blood Parasites ID Imaging Data Attestation: I personally reviewed and interpreted this imaging study as follows: My Impression: Chest x-rayno acute infiltrate, failure, pneumothorax seen Radiologist's Impression: Abdomen/Pelvis CT 12/22/22 17:12 CT abd pelvis wo con CLINICAL HISTORY: lower abd pain TECHNIQUE: Helical axial images of the abdomen and pelvis were obtained. Automated dose lowering techniques and/or adjustment according to patient size were utilized for this exam. This exam was performed without intravenous contrast. CT DOSE: 1189.83 mGy.cm COMPARISON: Comparison is made to CT abdomen pelvis 08/10/2022 FINDINGS: Lower chest: No acute abnormality. Liver: Nodular contour of the liver is seen compatible with cirrhosis. Gallbladder and biliary tree: Patient is status post cholecystectomy. No intra- or extrahepatic biliary ductal dilation. Pancreas: Unremarkable, no focal lesions. Spleen: Unremarkable. Adrenals: Unremarkable. Kidneys and ureters: Multiple renal cysts are seen. There are a few nonobstructive stones. Perinephric stranding is seen. Bladder: Unremarkable. Reproductive organs: Patient is status post hysterectomy. Bowel: Postsurgical changes of Ngoc-en-Y gastric bypass are seen. Lymph nodes Retroperitoneal: There is ill-defined soft tissue density about the right renal vein which appears increased from prior exam, underlying lymph nodes cannot be excluded. Pelvic: Unremarkable. Mesenteric: Unremarkable. Peritoneum: There is a 34 mm nodule in the mid abdomen encasing the superior mesenteric vein, unchanged from prior exam. Vessels: Unremarkable. Abdominal wall: Unremarkable. Bones: Unremarkable. IMPRESSION: 1. No acute abnormalities are seen. There is redemonstration of a ill-defined soft tissue mass encasing the superior mesenteric vein, obstruction cannot be excluded. There may be a soft tissue mass in the right pericaval region as well, although evaluation is limited by noncontrast technique. 2. Additional findings as above. ACT 112: Negative or not required by law. Electronically signed by: Isra Wise M.D. 12/22/2022 6:36 PM Chest X-Ray 12/22/22 17:12 XR chest 1V portable CLINICAL HISTORY: Sepsis TECHNIQUE: Single frontal radiograph of the chest was obtained. Comparison: Comparison is made to chest radiograph 12/10/2022 FINDINGS: Right portacatheter is seen. The aorta is tortuous. The remainder of the cardiomediastinal silhouette is unremarkable. The lungs are clear. No evidence of pleural effusion or pneumothorax. IMPRESSION: No acute abnormalities and in particular no evidence of pneumonia. ACT 112: Negative or not required by law. Electronically signed by: Isra Wise M.D. 12/22/2022 6:15 PM ECG Data Attestation: I personally reviewed and interpreted this ECG as follows: Indication: + tachycardia and + weakness Rate (beats per minute): 115 Rhythm: + atrial fibrillation ECG Intervals/blocks: + Normal QRS and + Normal QT ECG [place]: + Normal ECG ST segments: + Normal ST segments ECG Findings: no PACs or no PVCs Comparison ECG Date: from (06/24/22) Change: no significant change (The rate has increased but otherwise no change) MDM Narrative This patient is a 9-year-old female with a complex medical history as of late as she is being treated for UTI currently and also for lymphoma additionally has a history of being on a blood thinner and CHF, comes in after not feeling well having a fever and having lower abdominal pain. I did establish an IV. Multipl e blood testing was obtained given her history of CHF I did hold off on this fluid boluses as she was normotensive initially and has concern about being fluid overloaded. EKG chest x-ray multiple blood testing was obtained. EKG shows A. fib with a rate of 115. We did access her report. Her COVID testing was negative. Her urinalysis does suggest a UTI. I did review her cultures from the other day and discussed this with her ED pharmacist who recommended cefepime which was ordered IV. I did do a noncontrast CT to evaluate her for obstructive uropathy. CAT scan shows no acute abnormalities she has a soft tissue mass which was previously known and likely the former. She was found to be neutropenic she has been on antibiotics. Her troponin is also mildly elevated and she is a mildly rapid A. fib. She is had no chest pain or shortness of breath to suggest acute ischemia or any EKG changes to suggest ischemia. Her magnesium was low and this was repleted by the hospitalist IV. CRP was also elevated, concerning for infection, although lactate and procalcitonin are normal. I did discuss the case with the hospitalist on several occasions they have assumed care and are evaluating her. The meantime the chest x-ray came back clear. She has been normotensive and given her histor y of CHF and elevated BNP I did not give her any further fluids because of concern for fluid overload. Talking to her she is been fluid overloaded in the past with IV fluids. The hospitalist will further evaluate her and put more orders in and admit her. The hospitalist have ordered a small mount of Plasma-Lyte to help fluid resuscitate her but we are doing this very gently given her history. The patient and her are happy the plan she will be admitted Continuous cardiac monitoring: Orders placed in EMR for continuous Monitoring. Upon interpretation, the patient was noted to be in A. fib with mild tachycardia at 110. Impression & Plan Neutropenic fever, Acute UTI, Lab test negative for COVID-19 virus, A-fib, Current use of bed bug exterminator anticoagulation, Elevated troponin, Hypomagnesemia Discharge Plan Visit Data Chief Complaint: Abdominal Pain Stated Complaint: ABD PAIN,GOOD,CHILLS,LEG PAIN ED Provider: Freddy Gandhi Discharge Problem: Neutropenic fever, Acute UTI, Lab test negative for COVID-19 virus, A-fib, Current use of bed bug exterminator anticoagulation, Elevated troponin, Hypomagnesemia Forms Stand Alone Forms: [facility] [employer] Prescriptions Prescriptions: No Action bupropion HCl 150 mg tablet extended release 24 hr 150 mg PO QAM Qty: 90 3RF atorvastatin [Lipitor] 40 mg tablet 40 mg PO QAM Qty: 90 3RF spironolactone [Aldactone] 25 mg tablet 25 mg PO QAM Qty: 90 3RF carvedilol [Coreg] 12.5 mg tablet 12.5 mg PO BID Qty: 180 3RF Rx Instructions: must administer with a meal/food furosemide [Lasix] 40 mg tablet 40 mg PO Q OTHER DAY Qty: 90 3RF cholecalciferol (vitamin D3) [Vitamin D3] 25 mcg (1,000 unit) capsule 1,000 unit PO QAM apixaban 2.5 mg tablet 2.5 mg PO BID Qty: 180 3RF allopurinol 300 mg tablet 300 mg PO QAM diltiazem HCl 180 mg capsule,extended release 24 hr 180 mg PO DAILY Qty: 90 3RF Label Comments: QAM nitrofurantoin macrocrystal 100 mg capsule 100 mg PO BID Qty: 14 0RF Rx Instructions: STARTED 12/20/22 FOR 7 DAYS. must administer with a meal/food oxycodone-acetaminophen [Percocet] 5-325 mg tablet 1 tab PO Q6H PRN (Reason: pain) Qty: 10 0RF nystatin [Nystop] 100,000 unit/gram powder 1 applic topical HS PRN (Reason: fungal site) pantoprazole 40 mg tablet,delayed release (DR/EC) 20 mg PO BID hydrocodone-acetaminophen 5-325 mg tablet 1 tab PO Q4H PRN (Reason: pain) Qty: 10 0RF Rx Instructions: For severe pain you may take 2 tablets but not more than 6 tablets in a single day Referrals Referrals: Christopher Guevara MD [Primary Care Provider] -
[2022-12-22 17:59] LABS: Hematocrit (blood only) 35.7 % (34.1-44.9); Hemoglobin 12.2 g/dl (12.0-16.0); Mean Corpuscular Hemoglobin 34.2 pg (25.0-34.0); Mean Corpuscular Hgb Conc 34.2 g/dL (32.0-36.0); RDW Coefficient of Variation 12.2 % (11.5-14.5); RDW Standard Deviation 44.7 fL (36.4-46.3); Red Blood Count 3.57 M/uL (3.93-5.22); White Blood Count 0.18 K/ul (4.8-10.8)
[2022-12-22 18:10] LABS: Albumin Level 3.3 gm/dl (3.4-5.0); BUN Creatinine Ratio 15.3 (10-20); Bilirubin Direct 0.3 mg/dl (0-0.2); Bilirubin,Total 1.2 mg/dl (0.2-1.0); Calcium 8.5 mg/dl (8.5-10.1); Creatinine Clr Calc Pharmacy 48.1 ml/min; Magnesium 1.2 mg/dl (1.7-2.4); Potassium 3.7 mmol/L (3.5-5.1); Total Protein 6.2 gm/dl (6.0-8.3)
[2022-12-22 18:13] LABS: Mean Platelet Volume 10.2 fL (9.4-12.3); Platelet Count 51 K/uL (130-400)
[2022-12-22 18:16] LABS: Troponin I High Sensitivity 39.4 pg/ml (0-14)
--- NOTE | 2022-12-22 18:17 | History & Physical Report ---
Date of Service December 22, 2022 Assessment & Plan (1) Acute UTI: Plan: - Started empirically on macrobid 12/20, urine cx growing E Col, Enterobacter cloacae resistant to Macrobid, Rocephin (inducible resistance per discussion with pharmacy, despite reported sensitivity to Rocephin). - Per discussion with pharmacy, patient needs to be admitted with cefepime, may be d/c'd on fluoroquinolone. - UA here with nitrites, leuk esterase, WBC. - Repeat urine culture pending. - Cefepime and vanco x1 dose in ED for now for neutropenic fever, plan to d/c vanco after first dose. (2) Neutropenic fever: Plan: - T 100*F, WBC .018, diff pending. - Started R-CHOP for lymphoma 2 weeks ago, now with diffuse complaints: abdominal pain,leg pain, headache, mouth sores. - Started empirically on cefepime and vancomycin x1 dose in ED, suspect UTI as source of infection/sepsis. - 500 cc bolus followed by IVF 125cc/hr x 0.5 L. - Neutropenic precautions. - CT A/P: No acute abnormalities are seen. There is redemonstration of a ill- defined soft tissue mass encasing the superior mesenteric vein, obstruction cannot be excluded. There may be a soft tissue mass in the right pericaval region as well, although evaluation is limited by noncontrast technique. (3) Sepsis: Plan: - WBC 0.18, tachycardic 110s, PLT 51. With recent chemo initiation, UTi with putpa. - Broad spectrum abx as above. (4) Pancytopenia: Plan: - WBC 0.18, RBC 3.5, PLT 51, all acutely low s/p R-CHOP 2 weeks ago. - Trend daily CBC. (5) Elevated troponin: Plan: - HS trop mildly elevated at 39, no chest pain, suspect secondary to demand from a fib RVR, infection. - Trend overnight. Defer echo as she just had one performed 2 months ago prior to beginning chemo. (6) Lymphoma: Plan: - Extensive work up since initial mesenteric mass seen one year ago, per PCP note from 11/14 for detailed timeline of events over past year. 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 Jade at [facility]. - Defer oncology consult at this time. (7) CKD (chronic kidney disease), stage III: Plan: - Cr 1.24, at/improved from recent baseline. - Mg 1.2, no other electrolyte abnormalities. - Replte lytes prn, CMP daily. - Avoid nephrotoxins, renally dose medications as able. (8) Chronic diastolic congestive heart failure: Plan: - Echo Oct 23: EF 55%, no wma, RV function normal, no significant valvular disease. - ZINC FURNACE CHARGER--> Lasix 40 mg QOD, Aldactone 25 mg daily. Hold on admission for sepsis to avoid hypotension. - Cautious IVF for sepsis, encourage PO intake, monitor for volume overload. - Daily standing weight, strict I/Os. (9) Permanent atrial fibrillation: Plan: - Tachy 100-130. - Continue diltiazem, Eliquis. - EKG with a fib RVR, suspect tachycardia secondary to acute infection/pain/pongoing emesis, will defer on rate control agents other than her daily dilt for now and monitor for resolution of tachycardia with infection treatment. - IVF: 500 cc bolus in ED, followed by Normosol 125 cc/hr x 0.5L, replete ma gm ordered for ED, two additional gm on floor. 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 (11) GERD (gastroesophageal reflux disease): Plan: - Pepcid in Ed for nausea, vomitnig, continue IV - Continue Protonix. (12) Hypertension: Plan: - Hold Coreg on admission to avoid hypotension given sepsis, most likely secondary to UTI. - ZINC FURNACE CHARGER--> Coreg 12.5 mg BID, Lasix + aldactone for HFpEF/NAH< diltiazaem for a fib rate control. (13) Hyperlipemia: Plan: - Contunue statin threapy. Plan - Admit to PCU. - SCDs, Eliquis for VTE ppx. - Full Code. History of Present Illness Chief Complaint: "stomach pain, headache, leg pain, mouth ulcers for a couple days" Primary Care Provider: Christopher Guevara MD Tea Dawkins is a 72-year-old female with a past medical history significant for recently diagnosed follicular lymphoma/? B-cell lymphoma, HOFFMAN cirrhosis, hyperlipidemia, CKD3, HFpEF, A. fib, previous TIA, GERD, ROMULO, hypertension, obesity s/p Ngoc-en-Y bypass in 2007, depression, and anxiety. Her concerns are pain in her stomach that been ongoing for a week, terrible headache, pain shooting up and down her legs, and ulcers in her mouth. She began R-CHOP for lymphoma treatment 2 weeks ago, follows with Dr. Jade. Since starting chemotherapy she has just felt unwell in general, however the past couple days developed dysuria and increased urinary frequency. She was diagnosed with UTI and started on Macrobid 12/20 and has since developed lower abdominal pain, nausea, and vomiting with diffuse body aches and headache. She denies any fevers, chest pain, palpitations, shortness of breath, cough, hematemesis, hematochezia, melena, diarrhea, constipation. No recent falls. Has been compliant with her medications. Her urine culture from the is come back positive for E. coli as well as Enterobacter cloacae, resistant to Macrobid, also with resistance to Rocephin per pharmacy discussion due to inducible resistance. Patient empirically started on cefepime in ED. On presentation she is febrile with a temp 37.8 C and tachycardic at 116, normotensive and 97% on room air. Labs notable for a white count of 0.18, RBC 3.5, platelets 51, all acutely low with new pancytopenia. Lactate 1.2, procalcitonin 0.14, prior, CRP 23.57. Creatinine 1.24, at baseline and magnesium low at 1.2. T bili mildly elevated, AST and ALT within normal limits. Troponin 39.4, BNP 245. CT A/P: No acute abnormalities are seen. There is redemonstration of a ill- defined soft tissue mass encasing the superior mesenteric vein, obstruction cannot be excluded. There may be a soft tissue mass in the right pericaval region as well, although evaluation is limited by noncontrast technique. CXR unremarkable, specifically there is no pneumonia or evidence of pulmonary edema. Allergies Allergy/AdvReac Type Severity Reaction Status Date / Time No Known Allergies Allergy Verified 12/22/22 17:58 Home Medications Medication Instructions Recorded Confirmed Type bupropion HCl 150 mg 24 hr tablet, 150 mg PO QAM #90 tabs 03/01/22 12/22/22 Rx extended release nystatin 100,000 unit/gram topical 1 applic topical HS PRN fungal site 06/24/22 12/22/22 History powder (Nystop) atorvastatin 40 mg tablet (Lipitor) 40 mg PO QAM #90 tabs 07/06/22 12/22/22 Rx spironolactone 25 mg tablet 25 mg PO QAM #90 tabs 08/21/22 12/22/22 Rx (Aldactone) carvedilol 12.5 mg tablet (Coreg) 12.5 mg PO BID #180 tabs 10/31/22 12/22/22 Rx furosemide 40 mg tablet (Lasix) 40 mg PO Q OTHER DAY weight gain 11/12/22 12/22/22 Rx #90 tabs cholecalciferol (vitamin D3) 25 1,000 unit PO QAM 11/20/22 12/22/22 History mcg (1,000 unit) capsule (Vitamin D3) diltiazem HCl 180 mg capsule,24 180 mg PO DAILY #90 caps 11/20/22 12/22/22 Rx hr,extended release allopurinol 300 mg tablet 300 mg PO QAM 12/04/22 12/22/22 History apixaban 2.5 mg tablet 2.5 mg PO BID #180 tabs 12/07/22 12/22/22 Rx hydrocodone 5 mg-acetaminophen 325 1 tab PO Q4H PRN pain #10 tabs 12/10/22 12/22/22 Rx mg tablet pantoprazole 40 mg tablet,delayed 20 mg PO BID 12/10/22 12/22/22 History release nitrofurantoin macrocrystal 100 mg 100 mg PO BID #14 caps 12/20/22 12/22/22 Rx capsule oxycodone-acetaminophen 5 mg-325 1 tab PO Q6H PRN pain #10 tabs 12/20/22 12/22/22 Rx mg tablet (Percocet) Past Med/Surg History Medical History Anticoagulant long-term use B-cell lymphoma NEW DX Carcinoid tumor PET SCAN AT [facility]> "PLANS TO TREAT FOR B CELL LYMPHOMA SHOULD TREAT CARCINOID TUMOR" Cardiac murmur Mild MR and TR per 10/2022 ECHO Chronic diastolic congestive heart failure Chronic pain of inguinal region Cirrhosis CKD (chronic kidney disease), stage III Depression Dissection of vertebral artery pt unsure/unaware Dysuria GERD (gastroesophageal reflux disease) History of anemia IRON INFUSIONS IN PAST History of COVID-19 07/2022>RESOLVED History of skin cancer Hx of pancreatitis Hyperlipemia Hypertension Kidney stones CURRENT BUT NO CAUSES NO PROBLEM Lesion of ureter biopsy 12/29/2020 Mesenteric mass recent PET scan --- RECENT B CELL LYMPHOMA CONFIRMED Permanent atrial fibrillation PFO (patent foramen ovale) Suspected per records Prediabetes Sleep apnea NO DEVICE SOB (shortness of breath) on exertion TIA (transient ischemic attack) 2018- [place] - no residual -NO ISSUES SINCE Surgical History H/O: hysterectomy History of bone marrow biopsy History of bowel resection WITH COLOSTOMY R/T SBO History of cardiac radiofrequency ablation D/T AFIB - PT REPORTS HAD 1 BUT MAYBE 2 - NOT SURE DATES (SARGENT) History of cardioversion multiple History of colonoscopy (05/2022) History of colostomy r/t bowel blockage History of colostomy reversal History of cystoscopy History of esophagogastroduodenoscopy (EGD) History of tubal ligation History of umbilical hernia repair Hx of abdominal surgery FOR REMOVAL OF CYST - PT NOT SURE TYPE Hx of cholecystectomy Hx of laparoscopy Hx of lymph node biopsy Hx of removal of cyst Port-A-Cath in place (12/10/22) Access port placement and use of fluoroscopy. Dr. Leger Family History Grandmother Diabetes Hypertension Mother Heart disease Hypertension Grandfather Stomach cancer Hypertension Father Pancreatic cancer Hypertension Other No family history of adverse response to anesthesia Denies family history of Ovarian cancer Breast cancer Colorectal cancer Social History Smoking Status: Former smoker Tobacco Type: Cigarettes Second Hand Exposure: No; Hx Alcohol Use: No Hx Substance Use: No Preferred Language: Indian Communication Ability: Effective Visual Impairment: No Limitations Hearing Ability: Normal Operator [employer] Required: No Beliefs That Will Affect Care: Buddhism Buddhism Beliefs: TENRIISM marital status: Current Living Situation: Spouse 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 status: retired 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) How many Children do You have: 1 other: [employer] Feels Safe at Home: Yes caffeine: No Dental Care, Regularly: Yes Physical Activity Frequency: Does not Exercise Seatbelt Use: always Sunscreen Use: No Assistive Devices: Glasses Review of Systems Review of Systems: Constitutional: No fever/chills, weakness, fatigue, myalgias, anorexia, night sweats Eyes: No diplopia, no worsening or blurred vision ENT: normal hearing, no trouble swallowing Respiratory: No cough, sputum, dyspnea at rest or on exertion Cardiovascular: No chest pain, tightness or palpitations Abdomen: diffuse abdominal pain for several days with nausea, vomiting today; n o diarrhea or constipation : dysuria, increased urgency/frequency x1 week, no hematuria, urinary retention Musculoskeletal: b/l leg pain; No joint pain, calf pain, swelling Neurologic: No weakness, numbness/tingling, or balance problems Psychiatric: No anxiety or depression Skin: No rash or itch Physical Exam Physical Exam: General: awake, alert, no apparent distress Head: Normocephalic, atraumatic ENT: PERRL, EOMI, no pharyngeal exudate, mucous membranes moist Chest: Clear to auscultation, on room air, no adventitious breath sounds Cardiac: Tachycardic, irregularly irregular rhythm consistent with permanent A. fib, no murmur, no JVD, normal peripheral pulses, good capillary refill Abdominal: NABS x 4 quadrants, soft, nontender to palpation, no rebound, guarding or tenderness Extremities: Some mild bilateral lower leg edema, otherwise normal inspection, no peripheral edema or erythema, calfs nontender to palpation Psych: Normal mood and affect Neuro: AAO x 3, strength intact bilaterally and rated 5/5, no motor deficits, speech is clear, no peripheral sensory deficits Skin: no rash or erythema Results & Data Results & Data ([facility]) Vital Signs (Past 12 Hours) Vital Signs Temp Pulse Resp BP Pulse Ox O2 Del Method 12/22/22 16:50 37.8 C H 116 H 20 128/88 97 Room Air Laboratory Results Abnormal lab results 12/22/22 12/22/22 12/22/22 Range/Units 17:05 17:31 17:37 WBC 0.18 L* (4.8-10.8) K/ul RBC 3.57 L (3.93-5.22) M/uL MCH 34.2 H (25.0-34.0) pg Plt Count 51 L (130-400) K/uL Creatinine 1.24 H (0.6-1.2) mg/dl Glucose 134 H (70-99(Fasting)) mg/dl Magnesium 1.2 L (1.7-2.4) mg/dl Total Bilirubin 1.2 H (0.2-1.0) mg/dl Direct Bilirubin 0.3 H (0-0.2) mg/dl AST 10 L (13-39) U/L Troponin I High Sens 39.4 H (0-14) pg/ml C-Reactive Protein (0-0.5) mg/dl B-Natriuretic Peptide (0-100) pg/ml Albumin 3.3 L (3.4-5.0) gm/dl Urine Appearance Cloudy A (Clear) Urine Protein 1+ H (Negative) Urine Blood 1+ H (Negative) Urine Nitrite Positive A (Negative) Ur Leukocyte Esterase Trace H (Negative) Urine WBC (Auto) >30 H (0-5) /hpf Urine RBC (Auto) 5-10 H (0-4) /hpf U Epithel Cells (Auto) 20-30 H (0-5) /lpf 12/22/22 12/22/22 Range/Units 17:37 17:37 WBC (4.8-10.8) K/ul RBC (3.93-5.22) M/uL MCH (25.0-34.0) pg Plt Count (130-400) K/uL Creatinine (0.6-1.2) mg/dl Glucose (70-99(Fasting)) mg/dl Magnesium (1.7-2.4) mg/dl Total Bilirubin (0.2-1.0) mg/dl Direct Bilirubin (0-0.2) mg/dl AST (13-39) U/L Troponin I High Sens (0-14) pg/ml C-Reactive Protein 23.57 H (0-0.5) mg/dl B-Natriuretic Peptide 245 H (0-100) pg/ml Albumin (3.4-5.0) gm/dl Urine Appearance (Clear) Urine Protein (Negative) Urine Blood (Negative) Urine Nitrite (Negative) Ur Leukocyte Esterase (Negative) Urine WBC (Auto) (0-5) /hpf Urine RBC (Auto) (0-4) /hpf U Epithel Cells (Auto) (0-5) /lpf Diagnostic Findings Abdomen/Pelvis CT 12/22/22 17:12 CT abd pelvis wo con CLINICAL HISTORY: lower abd pain TECHNIQUE: Helical axial images of the abdomen and pelvis were obtained. Automated dose lowering techniques and/or adjustment according to patient size were utilized for this exam. This exam was performed without intravenous contrast. CT DOSE: 1189.83 mGy.cm COMPARISON: Comparison is made to CT abdomen pelvis 08/10/2022 FINDINGS: Lower chest: No acute abnormality. Liver: Nodular contour of the liver is seen compatible with cirrhosis. Gallbladder and biliary tree: Patient is status post cholecystectomy. No intra- or extrahepatic biliary ductal dilation. Pancreas: Unremarkable, no focal lesions. Spleen: Unremarkable. Adrenals: Unremarkable. Kidneys and ureters: Multiple renal cysts are seen. There are a few nonobstructive stones. Perinephric stranding is seen. Bladder: Unremarkable. Reproductive organs: Patient is status post hysterectomy. Bowel: Postsurgical changes of Ngoc-en-Y gastric bypass are seen. Lymph nodes Retroperitoneal: There is ill-defined soft tissue density about the right renal vein which appears increased from prior exam, underlying lymph nodes cannot be excluded. Pelvic: Unremarkable. Mesenteric: Unremarkable. Peritoneum: There is a 34 mm nodule in the mid abdomen encasing the superior mesenteric vein, unchanged from prior exam. Vessels: Unremarkable. Abdominal wall: Unremarkable. Bones: Unremarkable. IMPRESSION: 1. No acute abnormalities are seen. There is redemonstration of a ill-defined soft tissue mass encasing the superior mesenteric vein, obstruction cannot be excluded. There may be a soft tissue mass in the right pericaval region as well, although evaluation is limited by noncontrast technique. 2. Additional findings as above. ACT 112: Negative or not required by law. Electronically signed by: Isra Wise M.D. 12/22/2022 6:36 PM Chest X-Ray 12/22/22 17:12 XR chest 1V portable CLINICAL HISTORY: Sepsis TECHNIQUE: Single frontal radiograph of the chest was obtained. Comparison: Comparison is made to chest radiograph 12/10/2022 FINDINGS: Right portacatheter is seen. The aorta is tortuous. The remainder of the cardiomediastinal silhouette is unremarkable. The lungs are clear. No evidence of pleural effusion or pneumothorax. IMPRESSION: No acute abnormalities and in particular no evidence of pneumonia. ACT 112: Negative or not required by law. Electronically signed by: Isra Wise M.D. 12/22/2022 6:15 PM ECG Additional Comments: Atrial fibrillation with rapid ventricular response Inferior infarct (cited on or before 19-DEC-2021) Cannot rule out Anterior infarct , age undetermined Abnormal ECG When compared with ECG of 24-JUN-2022 17:57, Minimal criteria for Anterior infarct are now Present. Code Status & VTE Plan Code Status Full Code. Supervising Physician Co-Signing Physician Notes Patient seen and examined, chart reviewed, case discussed with Alana Dockery PA-C and I agree with the assessment and plan as above except as otherwise noted Labs and images reviewed Tea is a 72-year-old female with a past medical history of recently diagnosed follicular B-cell lymphoma, HOFFMAN, hyperlipidemia, CKD 3, HFpEF, TIA, ROMULO, A. fib on Eliquis, obesity s/p Ngoc-en-Y bypass 2007, anxiety/depression who presents with abdominal pain, headache, and oral ulcers after starting RCHOP treatment for lymphoma 2 weeks ago with [facility]. 2 days ago patient had dysuria and was diagnosed with a UTI, and was placed on nitrofurantoin. Urine culture shows E. coli/Enterobacter cloaca with Macrobid r esistance. Patient is admitted for neutropenic fever suspect due to UTI. Patient seen at bedside, is nauseous and vomiting clear material without blood/bile. Reports that she has had dysuria and burning with her urine for several days which has not improved on "the antibiotic prescribed ". She denies chest pressure, chest pain, palpitations, shortness of breath, difficulty breathing. Has felt feverish and tired. Lungs are clear on auscultation, heart rate is irregular and tachycardic, legs are with trace ankle edema, abdomen is mildly tender infraumbilically. Neutropenic fever suspect 2/2 UTI UC 12/20 positive for E. coli and Enterobacter cloaca Enterobacter with potential inducible resistance, do not use Rocephin despite sensitivity report per pharmacy discussion. Can treat with cefepime at this time, and can likely target luis quinolone as oral discharge agent if patient is doing well. Given neutropenic fever patient was also treated with vancomycin pending completion of work-up and blood cultures WBC 0.18, differential pending presumed neutropenia Continue cefepime, 1 dose of empiric vancomycin given while pending completion of sepsis work-up including blood cultures. Prior echo with EF 55%, although BNP is elevated. Given her concern for fluid retention/CHF we will treat cautiously with fluids, patient is receiving 500 cc of normal saline as a slightly clinically dry and with tachycardia of this may be reactive to fever and UTI. Continue to follow, encourage p.o. CRP 23.57, trended troponin 39.4 without chest pain, trended. Patient is anticoagulated on DOAC - PCT pending The CT/A&P redemonstrates mass, no acute findings. Nausea/vomiting In the setting of recent chemotherapy and fever/UTI. Pepcid given, Zofran added. QT is not prolonged. Magnesium being repleted. Continue on telemetry. A. fib With intermittent tachycardia ranging from 1001 30, does increase with vomiting which appears reactive. Cautious fluids in the setting of history of CHF, 500 cc running, no significant edema at bedside and CXR is without pulmonary edema. Follicular B-cell lymphoma On R-CHOP therapy with [facility] Defer hematology oncology consultation at this time. CBC daily. Defer Neupogen. CKD Baseline creatinine 1.31.6, admitting creatinine 1.24 Renally dose medications as needed No superimposed ARIADNE on admission Hypomagnesemia Magnesium 1.2, repleted with IV followed by oral. 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
[2022-12-22] MEDS ORDERED: VANCOMYCIN CONSULT ACTIVE PRN ×2 (18:24→21:06)
[2022-12-22] MEDS ORDERED: VANCOMYCIN HCL 2,000 MG in SODIUM CHLORIDE 0.9% 500 ML IV ONE (18:24)
[2022-12-22] MEDS ORDERED: MAGNESIUM SULFATE / D5W 1 GM/100 ML BAG IV ONE (18:27)
--- NOTE | 2022-12-22 18:39 | CT Scan Report ---
CT abd pelvis wo con CLINICAL HISTORY: lower abd pain TECHNIQUE: Helical axial images of the abdomen and pelvis were obtained. Automated dose lowering tech niques and/or adjustment according to patient size were utilized for this exam. This exam was perfor med without intravenous contrast. CT DOSE: 1189.83 mGy.cm COMPARISON: Comparison is made to CT abdomen pelvis 08/10/2022 FINDINGS: Lower chest: No acute abnormality. Liver: Nodular contour of the liver is seen compatible with cirrhosis. Gallbladder and biliary tree: Patient is status post cholecystectomy. No intra- or extrahepatic bilia ry ductal dilation. Pancreas: Unremarkable, no focal lesions. Spleen: Unremarkable. Adrenals: Unremarkable. Kidneys and ureters: Multiple renal cysts are seen. There are a few nonobstructive stones. Perinephri c stranding is seen. Bladder: Unremarkable. Reproductive organs: Patient is status post hysterectomy. Bowel: Postsurgical changes of Ngoc-en-Y gastric bypass are seen. Lymph nodes Retroperitoneal: There is ill-defined soft tissue density about the right renal vein which appears in creased from prior exam, underlying lymph nodes cannot be excluded. Pelvic: Unremarkable. Mesenteric: Unremarkable. Peritoneum: There is a 34 mm nodule in the mid abdomen encasing the superior mesenteric vein, unchang ed from prior exam. Vessels: Unremarkable. Abdominal wall: Unremarkable. Bones: Unremarkable. IMPRESSION: 1. No acute abnormalities are seen. There is redemonstration of a ill-defined soft tissue mass encas ing the superior mesenteric vein, obstruction cannot be excluded. There may be a soft tissue mass in the right pericaval region as well, although evaluation is limited by noncontrast technique. 2. Additional findings as above. ACT 112: Negative or not required by law. Electronically signed by: Isra Wise M.D. 12/22/2022 6:36 PM
[2022-12-22] MEDS ORDERED: SODIUM CHLORIDE 0.9% 1000ML 500 ML IV ONE (18:48)
[2022-12-22] MEDS ORDERED: FAMOTIDINE 20 MG in SYRINGE 3 ML IV ONE (18:53)
[2022-12-22] MEDS ORDERED: ONDANSETRON INJ 2 MG/ML 2 ML VIAL IV STA (18:53)
[2022-12-22] MEDS ORDERED: NORMOSOL-R 1,000 ML IV SCH (19:00)
[2022-12-22] MEDS ORDERED: FAMOTIDINE 20MG/5ML IV PUSH IV ONE (19:14)
[2022-12-22] MEDS ORDERED: ACETAMINOPHEN 325 MG TAB PO PRN (21:06)
[2022-12-22 21:16] LABS: INR 1.2 (0.9-1.1); Prothrombin Time 12.4 Seconds (9.0-12.0)
[2022-12-22] MEDS: MAGNESIUM SULFATE / D5W 1 GM/100 ML BAG IV SCH ×4 (21:29→23:23)
[2022-12-22] MEDS: FIRST - Mouthwash BLM 119 ML PO SCH (22:29)
[2022-12-22] MEDS: PANTOprazole 40 MG TAB PO SCH (22:29)
[2022-12-22] MEDS: APIXABAN 2.5 MG TAB PO SCH (22:29)
[2022-12-22] MEDS: HYDROCODONE/ACETAMOPHEN 5/325MG TAB PO PRN (22:35)
[2022-12-23] MEDS: MAGNESIUM SULFATE / D5W 1 GM/100 ML BAG IV SCH (01:30)
[2022-12-23] MEDS: HYDROCODONE/ACETAMOPHEN 5/325MG TAB PO PRN ×2 (04:37→21:09)
[2022-12-23] MEDS ORDERED: VANCOMYCIN HCL 1,500 MG in SODIUM CHLORIDE 0.9% 500 ML IV SCH (06:00)
[2022-12-23] MEDS: CEFEPIME 2,000 MG in SYRINGE 0 ML IV SCH ×2 (06:16→17:14)
[2022-12-23 06:22] LABS: Albumin Globulin Ratio 1.1 (0.9-2); Albumin Level 2.8 gm/dl (3.4-5.0); C Reactive Protein 21.5 mg/dl (0-0.5); Calcium 8.2 mg/dl (8.5-10.1); Creatinine Clr Calc Pharmacy 56.1 ml/min; Est GFR (African American) 60.9 ml/min; Est GFR (Non-African American) 52.6 ml/min; Globulin 2.6 gm/dl (2.5-4.0); Magnesium 2.7 mg/dl (1.7-2.4); Potassium 3.5 mmol/L (3.5-5.1); Total Protein 5.4 gm/dl (6.0-8.3)
[2022-12-23 06:31] LABS: Hematocrit (blood only) 30.3 % (34.1-44.9); Hemoglobin 10.3 g/dl (12.0-16.0); Mean Corpuscular Hemoglobin 34.1 pg (25.0-34.0); Mean Corpuscular Volume 100.3 fL (80.0-100.0); Mean Platelet Volume 9.9 fL (9.4-12.3); Platelet Count 66 K/uL (130-400); RDW Coefficient of Variation 12.2 % (11.5-14.5); RDW Standard Deviation 45.4 fL (36.4-46.3); Red Blood Count 3.02 M/uL (3.93-5.22); White Blood Count 0.22 K/ul (4.8-10.8)
[2022-12-23] MEDS: allopurinoL 300 MG TAB PO SCH (08:45)
[2022-12-23] MEDS: PANTOprazole 40 MG TAB PO SCH ×2 (08:45→20:56)
[2022-12-23] MEDS: APIXABAN 2.5 MG TAB PO SCH ×2 (08:45→20:56)
[2022-12-23] MEDS: CHOLECALCIFEROL 1,000 UNITS 25 MCG TAB PO SCH (08:46)
[2022-12-23] MEDS: FIRST - Mouthwash BLM 119 ML PO SCH ×4 (08:46→20:54)
[2022-12-23] MEDS: ATORVASTATIN 40 MG TAB PO SCH (08:48)
--- NOTE | 2022-12-23 09:01 | Hospitalist Progress Note ---
Date of Service December 23, 2022 Assessment & Plan (1) Acute UTI: Plan: acute infection- Started empirically on macrobid 12/20, urine cx growing E Col, Enterobacter cloacae resistant to Macrobid, Rocephin (inducible resistance per discussion with pharmacy, despite reported sensitivity to Rocephin). -conitnue cefepime while neutorpenic , may be d/c'd on fluoroquinolone. - Repeat urine culture pending. - vanco x1 dose in ED d/c vanco (2) Neutropenic fever: Plan: -acute neutropenic fever, risk to multiple systems - Started R-CHOP for lymphoma 2 weeks ago, now with diffuse complaints: abdomi nal pain,leg pain, headache, mouth sores. - Started empirically on cefepime and vancomycin x1 dose in ED, suspect UTI as source of infection/sepsis. - Neutropenic precautions. - CT A/P: No acute abnormalities are seen. There is redemonstration of a ill- defined soft tissue mass encasing the superior mesenteric vein, obstruction cannot be excluded. There may be a soft tissue mass in the right pericaval region as well, although evaluation is limited by noncontrast technique. (3) Sepsis: Plan: - acute and resolved cefepime monotherapy Patient not receive complete volume resuscitation due to concern for chronic diastolic heart failure (4) Pancytopenia: Plan: - acute, chemotherapy iniduced (5) Elevated troponin: Plan: -acute self limited problem demand ischemia (6) Lymphoma: Plan: - now acute on chronic issue Extensive work up since initial mesenteric mass seen one year ago, per PCP note from 11/14 for detailed timeline of events over past year. 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 Jade at [facility]. - Defer oncology consult at this time. (7) CKD (chronic kidney disease), stage III: Plan: Chronic and stable - Avoid nephrotoxins, renally dose medications as able. (8) Chronic diastolic congestive heart failure: Plan: - Chronic and stable Echo Oct 23: EF 55%, no wma, RV function normal, no significant valvular disease. 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 Hold on admission for sepsis to avoid hypotension. - (9) Permanent atrial fibrillation: Plan: - Chronic and stable likely influenced by physiological stressors - Continue diltiazem, Eliquis. 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 (11) GERD (gastroesophageal reflux disease): Plan: - Pepcid in Ed for nausea, vomitnig, continue IV - Continue Protonix. (12) Hypertension: Plan: chronic now unstable -restart coreg 12/24/22 (13) Hyperlipemia: Plan: - Contunue statin threapy. Plan - - SCDs, Eliquis for VTE ppx. - Full Code. Admission and Anticipated Discharge Date Admission Date: December 22, 2022 Subjective pt is accompanied by and mother, she is weak and tired has some c/o sore throat Physical Exam Physical Exam: Patient is awake alert appropriate she complains of sore throat. She has no oropharyngeal lesions erythema or exudates. Her throat is without fluctuance or lymphadenopathy her cardiac exam is regular lungs are clear Results & Data Results & Data ([facility]) Vital Signs (Past 12 Hours) Vital Signs Temp Pulse Pulse Resp BP Pulse Ox Pulse Ox 12/23/22 08:00 98.4 F 94 H 18 112/77 94 12/22/22 21:06 96 12/22/22 21:06 12/22/22 23:00 125 H 12/22/22 21:06 120 H 12/23/22 04:32 99.5 F 103 H 17 106/68 92 12/22/22 23:47 99.0 F 112 H 18 120/78 93 O2 Del Method O2 Del Method 12/23/22 08:00 Room Air 12/22/22 21:06 Room Air 12/22/22 21:06 Room Air 12/22/22 23:00 12/22/22 21:06 12/23/22 04:32 Room Air 12/22/22 23:47 Room Air Diagnostic Findings CBC shows pancytopenia and neutropenia platelet counts is 66 Chemistry reviewed is stable CRP is 21.5 with neutropenic fever PG Care Time/CCT Total # of Minutes Spent Total Time Spent with Patient: Total time spent is greater than 50% in coordination of care (as documented) at patient's floor/unit and/or counseling patient: Coding Level of Care Code 90152 SUB INP/OBS CARE 350MIN Diagnoses Acute UTI N39.0 Neutropenic fever D70.9; R50.81 Sepsis A41.9 Pancytopenia D61.818 Elevated troponin R77.8 Lymphoma C85.90 CKD (chronic kidney disease), stage III N18.30 Chronic diastolic congestive heart failure I50.32 Permanent atrial fibrillation I48.21 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
--- NOTE | 2022-12-23 10:48 | Electrocardiogram Report ---
Test Reason : Blood Pressure : / mmHG Vent. Rate : 115 BPM Atrial Rate : 113 BPM P-R Int : 000 ms QRS Dur : 098 ms QT Int : 318 ms P-R-T Axes : 000 -13 -03 degrees QTc Int : 439 ms Atrial fibrillation with rapid ventricular response Inferior infarct (cited on or before 19-DEC-2021) Cannot rule out Anterior infarct , age undetermined vs lead placement Abnormal ECG When compared with ECG of 24-JUN-2022 17:57, Minimal criteria for Anterior infarct are now Present Confirmed by Estiven Schroeder ([id number]) on 12/23/2022 10:48:04 AM Referred By: REFERRED SELF Confirmed By:Estiven Schroeder
[2022-12-23] MEDS: ONDANSETRON INJ 2 MG/ML 2 ML VIAL IV PRN (13:49)
[2022-12-23] MEDS ORDERED: FIRST - Mouthwash BLM 119 ML PO PRN (15:01)
[2022-12-23] MEDS: carvediloL 3.125 MG TAB PO SCH (20:54)
[2022-12-24] MEDS: ONDANSETRON INJ 2 MG/ML 2 ML VIAL IV PRN ×2 (03:58→17:48)
[2022-12-24 04:48] LABS: Albumin Level 2.7 gm/dl (3.4-5.0); Bilirubin,Total 0.8 mg/dl (0.2-1.0); Calcium 8.3 mg/dl (8.5-10.1); Creatinine Clr Calc Pharmacy 56.6 ml/min; Est GFR (African American) 61.6 ml/min; Est GFR (Non-African American) 53.2 ml/min; Globulin 2.7 gm/dl (2.5-4.0); Potassium 3.6 mmol/L (3.5-5.1); Total Protein 5.4 gm/dl (6.0-8.3)
[2022-12-24 05:03] LABS: Hematocrit (blood only) 30.5 % (34.1-44.9); Hemoglobin 10.3 g/dl (12.0-16.0); Mean Corpuscular Hgb Conc 33.8 g/dL (32.0-36.0); Mean Corpuscular Volume 100.7 fL (80.0-100.0); Mean Platelet Volume 9.7 fL (9.4-12.3); Platelet Count 86 K/uL (130-400); RDW Coefficient of Variation 12.4 % (11.5-14.5); RDW Standard Deviation 46.5 fL (36.4-46.3); Red Blood Count 3.03 M/uL (3.93-5.22); White Blood Count 0.48 K/ul (4.8-10.8)
[2022-12-24 05:14] LABS: Dohle Bodies 1+; Giant Platelets 1+; Toxic Granulation 3+
[2022-12-24 05:15] LABS: Immature Granulocytes # (auto) 0.01 K/uL (0.00-0.02); Immature Granulocytes % (auto) 2.1 %; Lymphocytes # (auto) 0.22 K/uL (1.2-3.4); Lymphocytes % (auto) 45.8 %; Monocytes # (auto) 0.13 K/uL (0.24-0.82); Monocytes % (auto) 27.1 %; Neutrophils # (auto) 0.12 K/uL (1.4-6.5)
[2022-12-24] MEDS: CEFEPIME 2,000 MG in SYRINGE 0 ML IV SCH ×2 (08:01→17:48)
[2022-12-24] MEDS: APIXABAN 2.5 MG TAB PO SCH ×2 (08:02→20:24)
[2022-12-24] MEDS: allopurinoL 300 MG TAB PO SCH (08:02)
[2022-12-24] MEDS: PANTOprazole 40 MG TAB PO SCH ×2 (08:02→20:24)
[2022-12-24] MEDS: CHOLECALCIFEROL 1,000 UNITS 25 MCG TAB PO SCH (08:02)
[2022-12-24] MEDS: carvediloL 3.125 MG TAB PO SCH (08:02)
[2022-12-24] MEDS: ATORVASTATIN 40 MG TAB PO SCH (08:02)
[2022-12-24] MEDS: FIRST - Mouthwash BLM 119 ML PO SCH ×4 (08:03→20:25)
[2022-12-24] MEDS ORDERED: carvediloL 3.125 MG TAB PO ONE (09:14)
--- NOTE | 2022-12-24 16:53 | Hospitalist Progress Note ---
Date of Service December 24, 2022 Assessment & Plan (1) Acute UTI: Plan: acute infection- Started empirically on macrobid 12/20, urine cx growing E Col, Enterobacter cloacae resistant to Macrobid, Rocephin (inducible resistance per discussion with pharmacy, despite reported sensitivity to Rocephin). -conitnue cefepime while neutropenic , may be d/c'd on fluoroquinolone. - Repeat urine culture appears to be a contaminated specimen. - vanco x1 dose in ED d/c vanco (2) Neutropenic fever: Plan: -acute neutropenic fever, risk to multiple systems 12/24 pt remains neutropenic and pancytopenic due to chemotherapy - Started R-CHOP for lymphoma 2 weeks ago, now with diffuse complaints: abdominal pain,leg pain, headache, mouth sores. - Started empirically on cefepime and vancomycin x1 dose in ED, suspect UTI as source of infection/sepsis. - Neutropenic precautions. - CT A/P: No acute abnormalities are seen. There is redemonstration of a ill- defined soft tissue mass encasing the superior mesenteric vein, obstruction cannot be excluded. There may be a soft tissue mass in the right pericaval region as well, although evaluation is limited by noncontrast technique. (3) Sepsis: Plan: - acute and resolved cefepime monotherapy Patient not receive complete volume resuscitation due to concern for chronic diastolic heart failure (4) Pancytopenia: Plan: - acute, chemotherapy iniduced (5) Elevated troponin: Plan: -acute self limited problem demand ischemia (6) Lymphoma: Plan: - now acute on chronic issue Extensive work up since initial mesenteric mass seen one year ago, per PCP note from 11/14 for detailed timeline of events over past year. 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 Jade at [facility]. - Defer oncology consult at this time. (7) CKD (chronic kidney disease), stage III: Plan: Chronic and stable - Avoid nephrotoxins, renally dose medications as able. (8) Chronic diastolic congestive heart failure: Plan: - Chronic and stable Echo Oct 23: EF 55%, no wma, RV function normal, no significant valvular disease. 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 Hold on admission for sepsis to avoid hypotension. - (9) Permanent atrial fibrillation: Plan: - Chronic and stable likely influenced by physiological stressors - Continue diltiazem, Eliquis. 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 (11) GERD (gastroesophageal reflux disease): Plan: - Pepcid in Ed for nausea, vomitnig, continue IV - Continue Protonix. (12) Hypertension: Plan: chronic now unstable -restart coreg 12/24/22 (13) Hyperlipemia: Plan: - Contunue statin threapy. Plan - - SCDs, Eliquis for VTE ppx. - Full Code. Admission and Anticipated Discharge Date Admission Date: December 22, 2022 Subjective pt is accompanied by , she is weak and tired, improved sore throat Physical Exam Physical Exam: The patient appeared stable Vital signs as documented. Lungs are clear to auscultation and appear unlabored Cardiac exam, Rhythm is regular.. No murmurs, rubs or gallops. Abdominal exam reveals normal bowel sounds, soft non tender, no masses Extremities are nonedematous and both pedal pulses are normal. Neurologic exam is alert and oriented, no focal loss of strength or sensation Skin is without bruises or rashes Psychologically is with concerns for depression. Results & Data Results & Data ([facility]) Vital Signs (Past 12 Hours) Vital Signs Temp Pulse Pulse Resp BP Pulse Ox O2 Del Method 12/24/22 15:47 120 H 12/24/22 15:46 97.7 F 112 H 18 121/85 97 Room Air 12/24/22 11:21 97.7 F 114 H 18 115/79 97 Room Air 12/24/22 08:47 97.7 F 123 H 17 117/66 96 Room Air PG Care Time/CCT Total # of Minutes Spent Total Time Spent with Patient: Total time spent is greater than 50% in coordination of care (as documented) at patient's floor/unit and/or counseling patient: Coding Level of Care Code 54919 SUB INP/OBS CARE 2/35MIN Diagnoses Acute UTI N39.0 Neutropenic fever D70.9; R50.81 Sepsis A41.9 Pancytopenia D61.818 Elevated troponin R77.8 Lymphoma C85.90 CKD (chronic kidney disease), stage III N18.30 Chronic diastolic congestive heart failure I50.32 Permanent atrial fibrillation I48.21 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
[2022-12-24] MEDS: HYDROCODONE/ACETAMOPHEN 5/325MG TAB PO PRN (17:48)
[2022-12-24] MEDS: carvediloL 12.5 MG TAB PO SCH (20:24)
[2022-12-25] MEDS: HYDROCODONE/ACETAMOPHEN 5/325MG TAB PO PRN ×4 (00:58→23:20)
[2022-12-25] MEDS: CEFEPIME 2,000 MG in SYRINGE 0 ML IV SCH ×2 (06:07→17:49)
[2022-12-25] MEDS: PANTOprazole 40 MG TAB PO SCH ×2 (08:21→21:31)
[2022-12-25] MEDS: carvediloL 12.5 MG TAB PO SCH ×2 (08:21→21:31)
[2022-12-25] MEDS: ATORVASTATIN 40 MG TAB PO SCH (08:22)
[2022-12-25] MEDS: CHOLECALCIFEROL 1,000 UNITS 25 MCG TAB PO SCH (08:22)
[2022-12-25] MEDS: APIXABAN 2.5 MG TAB PO SCH ×2 (08:22→21:31)
[2022-12-25] MEDS: allopurinoL 300 MG TAB PO SCH (08:22)
[2022-12-25] MEDS: FIRST - Mouthwash BLM 119 ML PO SCH ×4 (08:24→21:31)
[2022-12-25] MEDS: HEPARIN 100 UNIT/ML 5ML FLUSH FLUSH PRN (08:55)
[2022-12-25] MEDS: METOPROLOL TARTRATE 1 MG/ML VIAL IV PRN (09:29)
[2022-12-25 10:48] LABS: Hematocrit (blood only) 31.4 % (34.1-44.9); Hemoglobin 10.5 g/dl (12.0-16.0); Mean Corpuscular Hemoglobin 34.1 pg (25.0-34.0); Mean Corpuscular Hgb Conc 33.4 g/dL (32.0-36.0); Mean Corpuscular Volume 101.9 fL (80.0-100.0); Mean Platelet Volume 9.8 fL (9.4-12.3); Nucleated RBC # (auto) 0.03 K/uL (0-0); Nucleated RBC % (auto) 3.2 %; Platelet Count 143 K/uL (130-400); RDW Coefficient of Variation 12.5 % (11.5-14.5); RDW Standard Deviation 47.2 fL (36.4-46.3); Red Blood Count 3.08 M/uL (3.93-5.22); White Blood Count 0.93 K/ul (4.8-10.8)
[2022-12-25 10:55] LABS: BUN Creatinine Ratio 18.6 (10-20); Calcium 8.2 mg/dl (8.5-10.1); Est GFR (African American) 54.1 ml/min; Est GFR (Non-African American) 46.7 ml/min; Potassium 3.4 mmol/L (3.5-5.1)
[2022-12-25 11:02] LABS: Toxic Granulation 1+
[2022-12-25 11:03] LABS: Basophils # (auto) 0.01 K/uL (0-0.2); Basophils % (auto) 1.1 %; Immature Granulocytes # (auto) 0.01 K/uL (0.00-0.02); Immature Granulocytes % (auto) 1.1 %; Lymphocytes # (auto) 0.27 K/uL (1.2-3.4); Monocytes # (auto) 0.21 K/uL (0.24-0.82); Monocytes % (auto) 22.6 %; Neutrophils # (auto) 0.43 K/uL (1.4-6.5); Neutrophils % (auto) 46.2 %
--- NOTE | 2022-12-25 18:01 | Hospitalist Progress Note ---
Date of Service December 25, 2022 Assessment & Plan (1) Acute UTI: Plan: acute infection- Started empirically on macrobid 12/20, urine cx growing E Col, Enterobacter cloacae resistant to Macrobid, Rocephin (inducible resistance per discussion with pharmacy, despite reported sensitivity to Rocephin). -conitnue cefepime while neutropenic , may be d/c'd on fluoroquinolone. - Repeat urine culture appears to be a contaminated specimen. - vanco x1 dose in ED d/c vanco (2) Neutropenic fever: Plan: -acute neutropenic fever, risk to multiple systems 12/25 pt remains neutropenic and pancytopenic due to chemotherapy however counts are improving and we are hopeful they are moving in the right direction - Started R-CHOP for lymphoma 2 weeks ago, now with diffuse complaints: abdominal pain,leg pain, headache, mouth sores. - Started empirically on cefepime and vancomycin x1 dose in ED, suspect UTI as source of infection/sepsis. - Neutropenic precautions. - CT A/P: No acute abnormalities are seen. There is redemonstration of a ill- defined soft tissue mass encasing the superior mesenteric vein, obstruction cannot be excluded. There may be a soft tissue mass in the right pericaval region as well, although evaluation is limited by noncontrast technique. (3) Sepsis: Plan: - acute and resolved cefepime monotherapy Patient not receive complete volume resuscitation due to concern for chronic diastolic heart failure (4) Pancytopenia: Plan: - acute, chemotherapy iniduced (5) Elevated troponin: Plan: -acute self limited problem demand ischemia (6) Lymphoma: Plan: - now acute on chronic issue Extensive work up since initial mesenteric mass seen one year ago, per PCP note from 11/14 for detailed timeline of events over past year. 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 Jade at [facility]. -Outpatient follow-up with oncology will be arranged at time of discharge (7) CKD (chronic kidney disease), stage III: Plan: Chronic and stable - Avoid nephrotoxins, renally dose medications as able. Augment hypokalemia by oral medication (8) Chronic diastolic congestive heart failure: Plan: - Chronic and stable Echo Oct 23: EF 55%, no wma, RV function normal, no significant valvular disease. 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 Hold on admission for sepsis to avoid hypotension. - (9) Permanent atrial fibrillation: Plan: - Chronic and unstable likely influenced by physiological stressors patient has a access to as needed metoprolol dosing - Continue diltiazem, Eliquis. 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 (11) GERD (gastroesophageal reflux disease): Plan: - Pepcid for nausea, vomitnig, continue IV - Continue Protonix. (12) Hypertension: Plan: chronic now unstable -restarted coreg 12/24/22 (13) Hyperlipemia: Plan: - Contunue statin threapy. Plan - - SCDs, Eliquis for VTE ppx. - Full Code. Admission and Anticipated Discharge Date Admission Date: December 22, 2022 Subjective Patient is a good condition today she is got no focal complaints or problems. Her neck and throat pain have improved. Her A. fib control is variable Physical Exam Physical Exam: Awake alert appropriate Irregular heart rhythm tachycardic at times otherwise rate controlled Lungs are clear Right upper chest Mediport site is healing well sutures are in place we will likely try to remove sutures on 12/26/2022 Results & Data Results & Data ([facility]) Vital Signs (Past 12 Hours) Vital Signs Temp Pulse Pulse Resp BP BP Pulse Ox 12/25/22 11:54 115 H 18 109/74 96 12/25/22 11:19 97.5 F L 93 H 18 97/68 L 97 12/25/22 09:29 165 H 119/77 12/25/22 08:25 97.9 F 102 H 18 105/74 96 12/25/22 06:47 94 H O2 Del Method 12/25/22 11:54 Room Air 12/25/22 11:19 Room Air 12/25/22 09:29 12/25/22 08:25 Room Air 12/25/22 06:47 Diagnostic Findings Review of CBC shows total white count of 930 with neutrophil count of 430 Chemistry electrolytes show mild reduction of potassium 3.4 to be augmented orally PG Care Time/CCT Total # of Minutes Spent Total Time Spent with Patient: Total time spent is greater than 50% in coordination of care (as documented) at patient's floor/unit and/or counseling patient: Coding Level of Care Code 73712 SUB INP/OBS CARE 2/35MIN Diagnoses Acute UTI N39.0 Neutropenic fever D70.9; R50.81 Sepsis A41.9 Pancytopenia D61.818 Elevated troponin R77.8 Lymphoma C85.90 CKD (chronic kidney disease), stage III N18.30 Chronic diastolic congestive heart failure I50.32 Permanent atrial fibrillation I48.21 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
[2022-12-25] MEDS: POTASSIUM CHLORIDE CRTAB 20 MEQ TABCR PO SCH (21:31)
[2022-12-26] MEDS: METOPROLOL TARTRATE 1 MG/ML VIAL IV PRN ×2 (01:04→09:15)
[2022-12-26] MEDS: CEFEPIME 2,000 MG in SYRINGE 0 ML IV SCH (06:01)
[2022-12-26] MEDS: HEPARIN 100 UNIT/ML 5ML FLUSH FLUSH PRN (06:02)
[2022-12-26 06:44] LABS: Hemoglobin 10.1 g/dl (12.0-16.0); Mean Corpuscular Hemoglobin 34.5 pg (25.0-34.0); Mean Corpuscular Hgb Conc 33.7 g/dL (32.0-36.0); Mean Corpuscular Volume 102.4 fL (80.0-100.0); Mean Platelet Volume 9.5 fL (9.4-12.3); Nucleated RBC # (auto) 0.02 K/uL (0-0); Nucleated RBC % (auto) 1.3 %; Platelet Count 165 K/uL (130-400); RDW Coefficient of Variation 12.7 % (11.5-14.5); RDW Standard Deviation 47.8 fL (36.4-46.3); Red Blood Count 2.93 M/uL (3.93-5.22); White Blood Count 1.52 K/ul (4.8-10.8)
[2022-12-26 06:57] LABS: Albumin Globulin Ratio 1.1 (0.9-2); Albumin Level 2.8 gm/dl (3.4-5.0); BUN Creatinine Ratio 21.1 (10-20); Bilirubin,Total 0.4 mg/dl (0.2-1.0); Calcium 8.5 mg/dl (8.5-10.1); Creatinine Clr Calc Pharmacy 55.1 ml/min; Est GFR (African American) 59.6 ml/min; Est GFR (Non-African American) 51.4 ml/min; Globulin 2.5 gm/dl (2.5-4.0); Potassium 4.4 mmol/L (3.5-5.1); Total Protein 5.3 gm/dl (6.0-8.3)
[2022-12-26 07:10] LABS: Basophils # (auto) 0.01 K/uL (0-0.2); Basophils % (auto) 0.7 %; Immature Granulocytes # (auto) 0.03 K/uL (0.00-0.02); Lymphocytes # (auto) 0.47 K/uL (1.2-3.4); Lymphocytes % (auto) 30.9 %; Monocytes # (auto) 0.32 K/uL (0.24-0.82); Monocytes % (auto) 21.1 %; Neutrophils # (auto) 0.69 K/uL (1.4-6.5); Neutrophils % (auto) 45.3 %
[2022-12-26] MEDS: carvediloL 12.5 MG TAB PO SCH (07:56)
[2022-12-26] MEDS: POTASSIUM CHLORIDE CRTAB 20 MEQ TABCR PO SCH (07:56)
[2022-12-26] MEDS: CHOLECALCIFEROL 1,000 UNITS 25 MCG TAB PO SCH (07:57)
[2022-12-26] MEDS: ATORVASTATIN 40 MG TAB PO SCH (07:57)
[2022-12-26] MEDS: FIRST - Mouthwash BLM 119 ML PO SCH ×2 (07:57→12:30)
[2022-12-26] MEDS: APIXABAN 2.5 MG TAB PO SCH (07:57)
[2022-12-26] MEDS: allopurinoL 300 MG TAB PO SCH (07:57)
[2022-12-26] MEDS: PANTOprazole 40 MG TAB PO SCH (07:57)
[2022-12-26] MEDS ORDERED: dilTIAZem HCL 30 MG TAB PO ONE (13:36)
--- NOTE | 2022-12-26 13:36 | Hospitalist Progress Note ---
Date of Service December 26, 2022 Assessment & Plan (1) Acute UTI: Plan: acute infection- Started empirically on macrobid 12/20, urine cx growing E Col, Enterobacter cloacae resistant to Macrobid, Rocephin (inducible resistance per discussion with pharmacy, despite reported sensitivity to Rocephin). -conitnue cefepime while neutropenic , may be d/c'd on fluoroquinolone to complete one week LD 12/29/22. - Repeat urine culture appears to be a contaminated specimen. - vanco x1 dose in ED d/c vanco (2) Neutropenic fever: Plan: -acute neutropenic fever, risk to multiple systems 12/26 pt remains neutropenic and pancytopenic due to chemotherapy however counts continue to improve, no further fever - Started R-CHOP for lymphoma 2 weeks ago, now with diffuse complaints: abdominal pain,leg pain, headache, mouth sores. - Started empirically on cefepime and vancomycin x1 dose in ED, suspect UTI as source of infection/sepsis. - Neutropenic precautions. - CT A/P: No acute abnormalities are seen. There is re demonstration of a ill- defined soft tissue mass encasing the superior mesenteric vein, obstruction cannot be excluded. There may be a soft tissue mass in the right pericaval region as well, although evaluation is limited by noncontrast technique. (3) Sepsis: Plan: - acute and resolved cefepime monotherapy Patient not receive complete volume resuscitation due to concern for chronic diastolic heart failure (4) Pancytopenia: Plan: - acute, chemotherapy iniduced (5) Elevated troponin: Plan: -acute self limited problem demand ischemia (6) Lymphoma: Plan: - now acute on chronic issue Extensive work up since initial mesenteric mass seen one year ago, per PCP note from 11/14 for detailed timeline of events over past year. 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 Jade at [facility]. -Outpatient follow-up with oncology will be arranged at time of discharge (7) CKD (chronic kidney disease), stage III: Plan: Chronic and stable - Avoid nephrotoxins, renally dose medications as able. Augment hypokalemia by oral medication (8) Chronic diastolic congestive heart failure: Plan: - Chronic and stable Echo Oct 23: EF 55%, no wma, RV function normal, no significant valvular disease. 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 Hold on admission for sepsis to avoid hypotension. - (9) Permanent atrial fibrillation: Plan: - Chronic and remains unstable likely influenced by physiological stressors patient has a access to as needed metoprolol dosing - Continue coreg restart diltiazem 12/26/22, remains on Eliquis. 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 (11) GERD (gastroesophageal reflux disease): Plan: - Pepcid for nausea, vomitnig, continue IV - Continue Protonix. (12) Hypertension: Plan: chronic now unstable -restarted coreg 12/24/22 (13) Hyperlipemia: Plan: - Contunue statin threapy. Plan - - SCDs, Eliquis for VTE ppx. - Full Code. sutures removed from mediport site by nursing after my inspection, 12/26/22 Admission and Anticipated Discharge Date Admission Date: December 22, 2022 Subjective Patient is a good condition today she is got no focal complaints or problems. he throat pain is resolved Her A. fib control is variable Physical Exam Physical Exam: Awake alert appropriate Irregular heart rhythm tachycardic at times otherwise rate controlled Lungs are clear Right upper chest Mediport site is healing well sutures are in place we will likely try to remove sutures on 12/26/2022 Results & Data Results & Data ([facility]) Vital Signs (Past 12 Hours) Vital Signs Temp Pulse Pulse Resp BP BP Pulse Ox 12/26/22 11:25 97.9 F 84 18 114/73 96 12/26/22 09:15 157 H 126/68 12/26/22 08:08 12/26/22 07:13 126 H 12/26/22 06:58 98.2 F 98 H 17 114/75 95 12/26/22 03:26 97.7 F 92 H 18 106/66 95 O2 Del Method 12/26/22 11:25 Room Air 12/26/22 09:15 12/26/22 08:08 Room Air 12/26/22 07:13 12/26/22 06:58 Room Air 12/26/22 03:26 Room Air Diagnostic Findings Reviewed CBC results with neutropenia Reviewed chemistry panel stable PG Care Time/CCT Total # of Minutes Spent Total Time Spent with Patient: Total time spent is greater than 50% in coordination of care (as documented) at patient's floor/unit and/or counseling patient: Coding Level of Care Code 58369 SUB INP/OBS CARE 3/50MIN Diagnoses Acute UTI N39.0 Neutropenic fever D70.9; R50.81 Sepsis A41.9 Pancytopenia D61.818 Elevated troponin R77.8 Lymphoma C85.90 CKD (chronic kidney disease), stage III N18.30 Chronic diastolic congestive heart failure I50.32 Permanent atrial fibrillation I48.21 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
--- NOTE | 2022-12-26 14:42 | Discharge Summary ---
Date of Service December 26, 2022 Admission HPI Per Admitting Provider Tea Dawkins is a 72-year-old female with a past medical history significant for recently diagnosed follicular lymphoma/? B-cell lymphoma, HOFFMAN cirrhosis, hyperlipidemia, CKD3, HFpEF, A. fib, previous TIA, GERD, ROMULO, hypertension, obesity s/p [place] bypass in 2007, depression, and anxiety. Her concerns are pain in her stomach that been ongoing for a week, terrible headache, pain shooting up and down her legs, and ulcers in her mouth. She began R-CHOP for lymphoma treatment 2 weeks ago, follows with Dr. Jade. Since starting chemotherapy she has just felt unwell in general, however the past couple days d eveloped dysuria and increased urinary frequency. She was diagnosed with UTI and started on Macrobid 12/20 and has since developed lower abdominal pain, nausea, and vomiting with diffuse body aches and headache. She denies any fevers, chest pain, palpitations, shortness of breath, cough, hematemesis, hematochezia, melena, diarrhea, constipation. No recent falls. Has been compliant with her medications. Her urine culture from the is come back positive for E. coli as well as Enterobacter cloacae, resistant to Macrobid, also with resistance to Rocephin per pharmacy discussion due to inducible resistance. Patient empirically started on cefepime in ED. On presentation she is febrile with a temp 37.8 C and tachycardic at 116, normotensive and 97% on room air. Labs notable for a white count of 0.18, RBC 3.5, platelets 51, all acutely low with new pancytopenia. Lactate 1.2, procalcitonin 0.14, prior, CRP 23.57. Creatinine 1.24, at baseline and magnesium low at 1.2. T bili mildly elevated, AST and ALT within normal limits. Troponin 39.4, BNP 245. CT A/P: No acute abnormalities are seen. There is redemonstration of a ill- defined soft tissue mass encasing the superior mesenteric vein, obstruction cannot be excluded. There may be a soft tissue mass in the right pericaval region as well, although evaluation is limited by noncontrast technique. CXR unremarkable, specifically there is no pneumonia or evidence of pulmonary edema. Principal Diagnosis Pancytopenia secondary to chemotherapy Urinary tract infection present on admission Atrial fibrillation RVR Discharge Exam Patient is awake and alert. Her sutures were removed from her Mediport site. Her heart is irregular but tachycardic at times, she has history of atrial fibrillation her lungs are clear Discharge Data Allergies Allergy/AdvReac Type Severity Reaction Status Date / Time No Known Allergies Allergy Verified 12/22/22 17:58 Consultations 12/22/22 18:09 ED Decision to Admit Stat Ordered Studies 12/22/22 17:12 CT stones [CT abd pelvis wo con] Stat Hospital Course (1) Acute UTI: acute infection- Started empirically on macrobid 12/20, urine cx growing E Col, Enterobacter cloacae resistant to Macrobid, Rocephin (inducible resistance per discussion with pharmacy, despite reported sensitivity to Rocephin). Patient was treated with cefepime from admission till the day of discharge she will be discharged on Cipro 250 twice daily for an additional 6 doses - Repeat urine culture appears to be a contaminated specimen. - vanco x1 dose in ED d/c vanco (2) Neutropenic fever: -acute neutropenic fever, risk to multiple systems 12/26 pt remains neutropenic and pancytopenic due to chemotherapy however counts continue to improve, no further fever patient be discharged home with antibiotics in the care of her family - Started R-CHOP for lymphoma 2 weeks ago, now with diffuse complaints: abdominal pain,leg pain, headache, mouth sores. - Started empirically on cefepime and vancomycin x1 dose in ED, suspect UTI as source of infection/sepsis. - - CT A/P: No acute abnormalities are seen. There is re demonstration of a ill- defined soft tissue mass encasing the superior mesenteric vein, obstruction cannot be excluded. There may be a soft tissue mass in the right pericaval region as well, although evaluation is limited by noncontrast technique. (3) Sepsis: - acute and resolved cefepime monotherapy transition to Cipro at discharge Patient not receive complete volume resuscitation due to concern for chronic diastolic heart failure (4) Pancytopenia: - acute, chemotherapy induced [facility] (5) Elevated troponin: -acute self limited problem demand ischemia (6) Lymphoma: - chronic issue Extensive work up since initial mesenteric mass seen one year ago, per PCP note from 11/14 for detailed timeline of events over past year. - Recently diagnosed with follicular B madi lymphoma ans started R-[employer] 2 weeks ago, followw with Dr. Jade at [facility]. -Outpatient follow-up with oncology will be arranged at time of discharge (7) CKD (chronic kidney disease), stage III: Chronic and stable - (8) Chronic diastolic congestive heart failure: - Chronic and stable Echo Oct 23: EF 55%, no wma, RV function normal, no significant valvular disease. - [employer]--> Lasix 40 mg QOD, Aldactone 25 mg daily. Hold on admission for sepsis to avoid hypotension. - (9) Permanent atrial fibrillation: - Chronic and remains unstable likely influenced by physiological stressors patient has a access to as needed metoprolol dosing - Continue coreg restart diltiazem 12/26/22, remains on Eliquis. (10) Liver 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: - Chronic and stable Lasix and Aldactone restart on dc (11) GERD (gastroesophageal reflux disease): - Pepcid for nausea, vomitnig, continue IV - Continue Protonix. (12) Hypertension: chronic now unstable -restarted coreg 12/24/22 (13) Hyperlipemia: - Contunue statin threapy. Plan - - SCDs, Eliquis for VTE ppx. - Full Code. sutures removed from mediport site by nursing after my inspection, 12/26/22 Total Time Total Time Spent Total Time Spent (In Minutes): It required greater than 30 minutes to prepare this patient for discharge Discharge Plan Discharge Items Patient Disposition: Home - Self-Care Reason For Visit: ABD PAIN,GOOD,CHILLS,LEG PAIN Discharge Diagnosis: Pancytopenia from chemotherapy Urinary tract infection present on admission Activity: Per Instructions section Activity Comment: Slowly increase activity Non-emergency contact: Primary Care Provider and Oncologist Call non-emergency contact if: your symptoms worsen Follow-up/Referrals: Christopher Guevara MD [Primary Care Provider] - Diet: Regular Addtl Attending Provider Instructions: Complete your antibiotics plenty of liquids hydration rest and good food Be sure to [facility] for instructions on outpatient blood work and what your next appointment will be Pending Studies at Discharge: No Stand-Alone Forms: My [employer], Smoking Cessation Medications and DC Order Prescriptions: New ciprofloxacin HCl [Cipro] 250 mg tablet 250 mg PO BID Qty: 6 0RF Continued bupropion HCl 150 mg tablet extended release 24 hr 150 mg PO QAM Qty: 90 3RF atorvastatin [Lipitor] 40 mg tablet 40 mg PO QAM Qty: 90 3RF spironolactone [Aldactone] 25 mg tablet 25 mg PO QAM Qty: 90 3RF carvedilol [Coreg] 12.5 mg tablet 12.5 mg PO BID Qty: 180 3RF Rx Instructions: must administer with a meal/food furosemide [Lasix] 40 mg tablet 40 mg PO Q OTHER DAY Qty: 90 3RF cholecalciferol (vitamin D3) [Vitamin D3] 25 mcg (1,000 unit) capsule 1,000 unit PO QAM apixaban 2.5 mg tablet 2.5 mg PO BID Qty: 180 3RF allopurinol 300 mg tablet 300 mg PO QAM diltiazem HCl 180 mg capsule,extended release 24 hr 180 mg PO DAILY Qty: 90 3RF Label Comments: QAM oxycodone-acetaminophen [Percocet] 5-325 mg tablet 1 tab PO Q6H PRN (Reason: pain) Qty: 10 0RF nystatin [Nystop] 100,000 unit/gram powder 1 applic topical HS PRN (Reason: fungal site) pantoprazole 40 mg tablet,delayed release (DR/EC) 20 mg PO BID hydrocodone-acetaminophen 5-325 mg tablet 1 tab PO Q4H PRN (Reason: pain) Qty: 10 0RF Rx Instructions: For severe pain you may take 2 tablets but not more than 6 tablets in a single day Discontinued nitrofurantoin macrocrystal 100 mg capsule 100 mg PO BID Qty: 14 0RF Rx Instructions: STARTED 12/20/22 FOR 7 DAYS. must administer with a meal/food Admission Data Admit Date/Time: 12/22/22 18:24 Attending Provider: Ray Chavez Admit Provider: Jesse Fu Primary Care Provider: Christopher Guevara Other Providers: Jesse Fu Coding Level of Care Code HOSP INP/OBS DISCH >30 MIN Diagnoses Acute UTI N39.0 Neutropenic fever D70.9; R50.81 Sepsis A41.9 Pancytopenia D61.818 Elevated troponin R77.8 Lymphoma C85.90 CKD (chronic kidney disease), stage III N18.30 Chronic diastolic congestive heart failure I50.32 Permanent atrial fibrillation I48.21 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
[2022-12-26] MEDS ORDERED: dilTIAZem HCl 60 MG TAB PO SCH (20:00)
[2022-12-27] MEDS ORDERED: dilTIAZem HCL 180 MG CAPCR PO SCH (09:00)
== END 2022-12-26 18:08 | disposition home or self-care (01) | DRG 871 ==
LOC: ED 16:47 → SUATTDRO 18:24 → 4W 18:24

== ENCOUNTER 2023-01-08 08:53 | Inpatient (IN) ==
[2023-01-08] MEDS ORDERED: dilTIAZem HCl 5 MG/ML 5 ML VIAL IV STA ×2 (09:14→10:20)
[2023-01-08] MEDS ORDERED: SODIUM CHLORIDE 0.9% 1000ML 500 ML IV ONE (09:14)
--- NOTE | 2023-01-08 09:24 | Emergency Department Note ---
Impression & Plan Atrial fibrillation with rapid ventricular response, Substernal chest pain, Generalized abdominal pain ED Provider Note INFORMANT: Patient and ED PROVIDER(S): Vincent Burgos MD CHIEF COMPLAINT: Chest pain PLAN: Disposition: Admitted Condition: Good Outpatient prescription management: none Referral: None MEDICAL DECISION MAKING: Patient presented because of chest discomfort. She also has some mild abdominal discomfort on examination. She underwent a work-up. Her CBC showed a mildly low white blood cell count and hemoglobin. Chemistry panel reveals mild de hydration. Magnesium and potassium measurements were within normal limits but on the low end. She had rapid atrial fibrillation noted on ECG as well as cardiac monitoring. She received 2 doses of IV Cardizem. She was gently hydrated. Her heart rate was better controlled. She was still fluctuating but was not nearly as fast as she had been upon presentation. She was still feeling some discomfort in the chest. Cardiac troponin was within normal limits. COVID testing was negative. Patient was given IV magnesium and potassium. On reassessment she was feeling somewhat better. I discussed further management in the hospital. The patient and were in agreement. I discussed the case with the [facility] hospitalist service, Dr Fu.. I did note the patient was having abdominals comfort and was ordering a CT scan of the abdomen pelvis given her history of diarrhea as well as the chemo and cancer. He did ask for chest CT to be added for further evaluation and help with management in the hospital. This was done. Thankfully no major problems were noted on CT angiography of the chest as well as CT scan of the abdomen pelvis. Patient was evaluated in the emergency department by internal medicine and admitted for further management After review of the information above and other included data, I feel the patient requires admission. Triage Nursing notes reviewed and agree them. Vital Signs: reviewed and remarkable for tachycardia Prior /Outside records reviewed: none Differential diagnosis: Dysrhythmia, cardiac ischemia, aortic dissection, pulmonary embolism, pneumothorax, pneumonia, pericarditis, myocarditis, esophageal rupture, GERD, cholecystitis, pancreatitis, musculoskeletal, as well as other pathologies. Diagnostics, as interpreted by me: ECG: Twelve-lead ECG reveals atrial fibrillation with rapid ventricular response at 144 bpm. Inferior Q waves present. Anterior Q waves present. No ST elevation. No ST depression. Cardiac Monitoring: Cardiac monitoring ordered by me: The patient was placed on continuous cardiac monitoring and observed. It revealed a atrial fibrillation at 151 bpm. Medical decision rules: none Imaging studies: A chest x-ray was performed and revealed no pneumothorax, effusion, infiltrate, pulmonary edema, free air under the diaphragm, or wide mediastinum. CT scans as noted above. I refer you to the EMR for further details. HPI: The patient is a 72year old female who presents to the Emergency Room with complaints of chest pain. This started this morning and is persisting. Patient states it feels like a pressure in her chest.. The patient also notes the following associated symptoms, palpitations, aching in her upper thighs, mild generalized abdominal pain, diarrhea. The patient has found no relieving factors. Current pain is rated as 10/10. Patient has a history of atrial fibrillation. She is anticoagulated. She has just started chemotherapy for lymphoma. Pt denies LOC, headache, fevers, chills, diaphoresis, visual changes, neck pain, breathing difficulties, nausea, vomiting, abdominal pain, back pain, melena, hematochezia, urinary symptoms, numbness, weakness, lymphadenopathy, rash, or other complaints. PAST MEDICAL HISTORY: See Below, A-fib, lymphoma PAST SURGICAL HISTORY: See Below, Mediport SOCIAL HISTORY: See Below, HOME MEDICATIONS: See Below ALLERGIES: See Below VITALS: See Below PHYSICAL EXAMINATION: GENERAL: Awake, alert, uncomfortable-appearing, in no distress HENT: Normocephalic, atraumatic. Oropharynx unremarkable. EYES: Normal conjunctiva. Sclera non-icteric. NECK: Inspection normal. Non-tender. Supple. No nuchal rigidity. FROM. No masses. RESPIRATORY: Clear to auscultation. No wheezes. No rales. Normal respiratory effort. CARDIAC: Tachycardic rate. Irregular rhythm. No murmurs. No rubs. Extremities warm and well perfused. Pulses equal. No JVD. GI: Soft, non-distended. Generalized tenderness to palpation. No rebound but mild guarding. No masses. RECTAL: Deferred. MUSCULOSKELETAL: Atraumatic. Chest examination reveals no tenderness. The back is symmetrical on inspection without obvious abnormality. No joint edema. LOWER EXTREMITIES: Calves are equal size bilaterally and non-tender. No edema. No discoloration. NEURO: Normal sensorium. No sensory or motor deficits noted. SKIN: No rash or jaundice noted. CRITICAL CARE: I have personally spent greater than 31 minutes of critical care time in the direct management of this patient. This includes bedside care, interpretation of diagnostic studies, and testing, discussion with consultants, patient, and family members, and other required patient management activities. These minutes are in excess of all separately billable procedures. Past Med/Surg History Medical History Anticoagulant long-term use B-cell lymphoma Carcinoid tumor Cardiac murmur Chronic diastolic congestive heart failure Chronic pain of inguinal region Cirrhosis CKD (chronic kidney disease), stage III Depression Dissection of vertebral artery Dysuria GERD (gastroesophageal reflux disease) History of anemia History of COVID-19 History of skin cancer Hx of pancreatitis Hyperlipemia Hypertension Kidney stones Lesion of ureter Mesenteric mass Permanent atrial fibrillation PFO (patent foramen ovale) Prediabetes Sleep apnea SOB (shortness of breath) on exertion TIA (transient ischemic attack) Surgical History H/O: hysterectomy History of bone marrow biopsy History of bowel resection History of cardiac radiofrequency ablation History of cardioversion History of colonoscopy (05/2022) History of colostomy History of colostomy reversal History of cystoscopy History of esophagogastroduodenoscopy (EGD) History of tubal ligation History of umbilical hernia repair Hx of abdominal surgery Hx of cholecystectomy Hx of laparoscopy Hx of lymph node biopsy Hx of removal of cyst Port-A-Cath in place (12/10/22) Family History Grandmother Diabetes Hypertension Mother Heart disease Hypertension Grandfather Stomach cancer Hypertension Father Pancreatic cancer Hypertension Other No family history of adverse response to anesthesia Denies family history of Ovarian cancer Breast cancer Colorectal cancer Social History Smoking Status: Former smoker Tobacco Type: Cigarettes Smoking End Date: 20 years ago; Second Hand Exposure: No; Hx Alcohol Use: No Hx Substance Use: No Preferred Language: Vietnamese Communication Ability: Effective Visual Impairment: No Limitations Hearing Ability: Normal [place] S[employer] Required: No Beliefs That Will Affect Care: None marital status: Current Living Situation: Spouse 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 status: retired 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) How many Children do You have: 1 Other 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 Helps Us Care for You: No other: [place] [employer]ATE PARTTIME Feels Safe at Home: Yes Safety Concerns: Feels Safe At This Time caffeine: No Dental Care, Regularly: Yes Physical Activity Frequency: Does not Exercise Seatbelt Use: always Sunscreen Use: No Assistive Devices: Glasses Allergies Allergies Allergy/AdvReac Type Severity Reaction Status Date / Time No Known Allergies Allergy Verified 01/02/23 14:00 Home Meds Home Medications Medication Instructions Recorded Confirmed nystatin 100,000 unit/gram topical 1 applic topical HS PRN fungal site 06/24/22 01/08/23 powder (Nystop) cholecalciferol (vitamin D3) 25 1,000 unit PO QAM 11/20/22 01/08/23 mcg (1,000 unit) capsule (Vitamin D3) allopurinol 300 mg tablet 300 mg PO QAM 12/04/22 01/08/23 pantoprazole 40 mg tablet,delayed 20 mg PO BID 12/10/22 01/08/23 release furosemide 40 mg tablet (Lasix) 40 mg PO DAILY weight gain 01/02/23 01/08/23 prednisone 20 mg tablet 20 mg PO 01/02/23 01/02/23 Previous Rx's Medication Instructions Recorded bupropion HCl 150 mg 24 hr tablet, 150 mg PO QAM #90 tabs 03/01/22 extended release atorvastatin 40 mg tablet (Lipitor) 40 mg PO QAM #90 tabs 07/06/22 spironolactone 25 mg tablet 25 mg PO QAM #90 tabs 08/21/22 (Aldactone) carvedilol 12.5 mg tablet (Coreg) 12.5 mg PO BID #180 tabs 10/31/22 diltiazem HCl 180 mg capsule,24 180 mg PO DAILY #90 caps 11/20/22 hr,extended release apixaban 2.5 mg tablet 2.5 mg PO BID #180 tabs 12/07/22 hydrocodone 5 mg-acetaminophen 325 1 tab PO Q4H PRN pain #10 tabs 12/10/22 mg tablet oxycodone-acetaminophen 5 mg-325 1 tab PO Q6H PRN pain #10 tabs 12/20/22 mg tablet (Percocet) Results & Data (ED) Vital Signs Vital Signs - 24 hr 01/08/23 08:57 01/08/23 09:11 01/08/23 09:11 Temperature 36.6 C Temperature Source Temporal Artery Scan Pulse Rate 122 H 131 H Pulse Rate [Right Finger] Pulse Rate from SpO2 Sensor Respiratory Rate 20 25 H Respiratory Effort / Characteristics Non-Labored Respiratory Depth Normal Blood Pressure 125/86 128/89 Blood Pressure [Right Arm] Blood Pressure Mean 99 102 Blood Pressure Mean [Right Arm] Blood Pressure Position [Right Arm] Pulse Oximetry 97 Oxygen Delivery Method Room Air Sepsis Recent Fever Within 48 Hours No Sepsis New/Unexplained Change in Mental Status N/A Sepsis Action Taken by Nursing No Action Required 01/08/23 09:30 01/08/23 09:40 01/08/23 09:40 Temperature Temperature Source Pulse Rate 131 H 140 H Pulse Rate [Right Finger] Pulse Rate from SpO2 Sensor 117 H 123 H Respiratory Rate 19 20 Respiratory Effort / Characteristics Respiratory Depth Blood Pressure 131/72 Blood Pressure [Right Arm] Blood Pressure Mean 91 Blood Pressure Mean [Right Arm] Blood Pressure Position [Right Arm] Pulse Oximetry 97 96 Oxygen Delivery Method Sepsis Recent Fever Within 48 Hours Sepsis New/Unexplained Change in Mental Status Sepsis Action Taken by Nursing 01/08/23 09:46 01/08/23 09:46 01/08/23 09:50 Temperature Temperature Source Pulse Rate 116 H Pulse Rate [Right Finger] Pulse Rate from SpO2 Sensor 106 H Respiratory Rate 19 Respiratory Effort / Characteristics Respiratory Depth Blood Pressure 113/79 121/66 Blood Pressure [Right Arm] Blood Pressure Mean 90 84 Blood Pressure Mean [Right Arm] Blood Pressure Position [Right Arm] Pulse Oximetry 98 Oxygen Delivery Method Sepsis Recent Fever Within 48 Hours Sepsis New/Unexplained Change in Mental Status Sepsis Action Taken by Nursing 01/08/23 09:50 01/08/23 09:55 01/08/23 09:55 Temperature Temperature Source Pulse Rate 113 H 115 H Pulse Rate [Right Finger] Pulse Rate from SpO2 Sensor 113 H 91 H Respiratory Rate 30 H 19 Respiratory Effort / Characteristics Respiratory Depth Blood Pressure 114/88 Blood Pressure [Right Arm] Blood Pressure Mean 96 Blood Pressure Mean [Right Arm] Blood Pressure Position [Right Arm] Pulse Oximetry 97 97 Oxygen Delivery Method Sepsis Recent Fever Within 48 Hours Sepsis New/Unexplained Change in Mental Status Sepsis Action Taken by Nursing 01/08/23 10:00 01/08/23 10:01 01/08/23 10:01 Temperature Temperature Source Pulse Rate 104 H 106 H Pulse Rate [Right Finger] Pulse Rate from SpO2 Sensor 97 H 95 H Respiratory Rate 25 H 21 Respiratory Effort / Characteristics Respiratory Depth Blood Pressure 104/79 Blood Pressure [Right Arm] Blood Pressure Mean 87 Blood Pressure Mean [Right Arm] Blood Pressure Position [Right Arm] Pulse Oximetry 96 97 Oxygen Delivery Method Sepsis Recent Fever Within 48 Hours Sepsis New/Unexplained Change in Mental Status Sepsis Action Taken by Nursing 01/08/23 10:06 01/08/23 10:06 01/08/23 10:11 Temperature Temperature Source Pulse Rate 109 H Pulse Rate [Right Finger] Pulse Rate from SpO2 Sensor 112 H Respiratory Rate 25 H Respiratory Effort / Characteristics Respiratory Depth Blood Pressure 130/93 133/79 Blood Pressure [Right Arm] Blood Pressure Mean 105 97 Blood Pressure Mean [Right Arm] Blood Pressure Position [Right Arm] Pulse Oximetry 97 Oxygen Delivery Method Sepsis Recent Fever Within 48 Hours Sepsis New/Unexplained Change in Mental Status Sepsis Action Taken by Nursing 01/08/23 10:11 01/08/23 10:30 01/08/23 10:31 Temperature Temperature Source Pulse Rate 121 H 111 H Pulse Rate [Right Finger] Pulse Rate from SpO2 Sensor 116 H 111 H Respiratory Rate 16 22 Respiratory Effort / Characteristics Respiratory Depth Blood Pressure 120/76 Blood Pressure [Right Arm] Blood Pressure Mean 90 Blood Pressure Mean [Right Arm] Blood Pressure Position [Right Arm] Pulse Oximetry 98 96 Oxygen Delivery Method Sepsis Recent Fever Within 48 Hours Sepsis New/Unexplained Change in Mental Status Sepsis Action Taken by Nursing 01/08/23 10:31 01/08/23 11:31 01/08/23 11:31 Temperature Temperature Source Pulse Rate 128 H 122 H Pulse Rate [Right Finger] 134 H Pulse Rate from SpO2 Sensor 107 H Respiratory Rate 29 H 18 18 Respiratory Effort / Characteristics Non-Labored Spontaneous Respiratory Depth Normal Blood Pressure Blood Pressure [Right Arm] 136/81 Blood Pressure Mean Blood Pressure Mean [Right Arm] 99 Blood Pressure Position [Right Arm] Lying Pulse Oximetry 97 96 95 Oxygen Delivery Method Room Air Room Air Sepsis Recent Fever Within 48 Hours Sepsis New/Unexplained Change in Mental Status Sepsis Action Taken by Nursing Laboratory Data 01/08/23 09:35 01/08/23 09:35 Lab Results 01/08/23 01/08/23 01/08/23 Range/Units 09:30 09:35 09:35 WBC 2.80 L (4.8-10.8) K/ul RBC 3.20 L (4.20-5.40) M/uL Hgb 11.0 L (12.0-16.0) g/dl Hct 32.7 L (37.0-47.0) % MCV 102.2 H (80.0-100.0) fL MCH 34.4 H (25.0-34.0) pg MCHC 33.6 (32.0-36.0) g/dL RDW Std Deviation 49.4 H (36.4-46.3) fL RDW Coeff of Rodrigo 13.6 (11.5-14.5) % Plt Count 190 (130-400) K/uL MPV 9.6 (9.4-12.4) fL Immature Gran % (Auto) 6.8 % Neut % (Auto) 47.4 % Lymph % (Auto) 22.9 % [place] % (Auto) 21.8 % Eos % (Auto) 0.0 % Baso % (Auto) 1.1 % Neut # (Auto) 1.33 L (1.40-6.50) K/uL Lymph # (Auto) 0.64 L (1.2-3.4) K/uL [place] # (Auto) 0.61 H (0.11-0.59) K/uL Eos # (Auto) 0.00 (0-0.50) K/uL Baso # (Auto) 0.03 (0-0.2) K/uL Immature Gran # (Auto) 0.19 (0.01-0.20) K/uL Absolute Nucleated RBC 0.21 H (0-0.12) K/uL Nucleated RBC % (auto) 7.5 % PT 11.5 (9.0-12.0) Seconds INR 1.1 (0.9-1.1) APTT 24.7 (21.0-31.0) Seconds PTT Ratio 0.9 Sodium (136-145) mmol/L Potassium (3.5-5.1) mmol/L Chloride (98-107) mmol/L Carbon Dioxide (21-32) mmol/L Anion Gap (3-11) BUN (6-23) mg/dl Creatinine (0.6-1.2) mg/dl Est Cr Clr Drug Dosing ml/min Est GFR ( Amer) ml/min Est GFR (Non-Af Amer) ml/min BUN/Creatinine Ratio (10-20) Glucose (70-99(Fasting)) mg/dl Calcium (8.5-10.1) mg/dl Magnesium (1.7-2.4) mg/dl Total Bilirubin (0.2-1.0) mg/dl AST (13-39) U/L ALT (7-52) U/L Alkaline Phosphatase (34-104) U/L Troponin I High Sens (0-14) pg/ml Total Protein (6.0-8.3) gm/dl Albumin (3.4-5.0) gm/dl Globulin (2.5-4.0) gm/dl Albumin/Globulin Ratio (0.9-2) Lipase (11-82) U/L Urine Color Urine Appearance (Clear) Urine pH (4.5-7.5) Ur Specific [place] (1.000-1.030) Urine Protein (Negative) Urine Glucose (UA) (Negative) Urine Ketones (Negative) Urine Blood (Negative) Urine Nitrite (Negative) Urine Bilirubin (Negative) Urine Urobilinogen (Negative) Ur Leukocyte Esterase (Negative) Urine WBC (Auto) (0-5) /hpf Urine RBC (Auto) (0-4) /hpf U Hyaline Cast (Auto) (0-5) /lpf U Epithel Cells (Auto) (0-5) /lpf Urine Bacteria (Auto) (Negative) SARS-CoV-2, RNA, NAAT NEGATIVE (NEGATIVE) 01/08/23 01/08/23 Range/Units 09:35 11:23 WBC (4.8-10.8) K/ul RBC (4.20-5.40) M/uL Hgb (12.0-16.0) g/dl Hct (37.0-47.0) % MCV (80.0-100.0) fL MCH (25.0-34.0) pg MCHC (32.0-36.0) g/dL RDW Std Deviation (36.4-46.3) fL RDW Coeff of Rodrigo (11.5-14.5) % Plt Count (130-400) K/uL MPV (9.4-12.4) fL Immature Gran % (Auto) % Neut % (Auto) % Lymph % (Auto) % [place] % (Auto) % Eos % (Auto) % Baso % (Auto) % Neut # (Auto) (1.40-6.50) K/uL Lymph # (Auto) (1.2-3.4) K/uL [place] # (Auto) (0.11-0.59) K/uL Eos # (Auto) (0-0.50) K/uL Baso # (Auto) (0-0.2) K/uL Immature Gran # (Auto) (0.01-0.20) K/uL Absolute Nucleated RBC (0-0.12) K/uL Nucleated RBC % (auto) % PT (9.0-12.0) Seconds INR (0.9-1.1) APTT (21.0-31.0) Seconds PTT Ratio Sodium 143 (136-145) mmol/L Potassium 3.8 (3.5-5.1) mmol/L Chloride 109 H (98-107) mmol/L Carbon Dioxide 27 (21-32) mmol/L Anion Gap 7 (3-11) BUN 26 H (6-23) mg/dl Creatinine 1.05 (0.6-1.2) mg/dl Est Cr Clr Drug Dosing 57.1 ml/min Est GFR ( Amer) 62.3 ml/min Est GFR (Non-Af Amer) 53.8 ml/min BUN/Creatinine Ratio 24.8 H (10-20) Glucose 95 (70-99(Fasting)) mg/dl Calcium 8.9 (8.5-10.1) mg/dl Magnesium 1.7 (1.7-2.4) mg/dl Total Bilirubin 0.7 (0.2-1.0) mg/dl AST 12 L (13-39) U/L ALT 9 (7-52) U/L Alkaline Phosphatase 91 (34-104) U/L Troponin I High Sens 9.0 (0-14) pg/ml Total Protein 6.1 (6.0-8.3) gm/dl Albumin 3.5 (3.4-5.0) gm/dl Globulin 2.6 (2.5-4.0) gm/dl Albumin/Globulin Ratio 1.3 (0.9-2) Lipase 21 (11-82) U/L Urine Color Yellow Urine Appearance Cloudy A (Clear) Urine pH 5.0 (4.5-7.5) Ur Specific [place] 1.020 (1.000-1.030) Urine Protein Trace H (Negative) Urine Glucose (UA) Negative (Negative) Urine Ketones Negative (Negative) Urine Blood Negative (Negative) Urine Nitrite Negative (Negative) Urine Bilirubin Negative (Negative) Urine Urobilinogen Negative (Negative) Ur Leukocyte Esterase 1+ H (Negative) Urine WBC (Auto) >30 H (0-5) /hpf Urine RBC (Auto) 0-4 (0-4) /hpf U Hyaline Cast (Auto) 1-5 (0-5) /lpf U Epithel Cells (Auto) >30 H (0-5) /lpf Urine Bacteria (Auto) Negative (Negative) SARS-CoV-2, RNA, NAAT (NEGATIVE) Administered Medications Allopurinol (Allopurinol 300 Mg Tab) 300 mg PO QAM [facility] Stop: 02/07/23 13:50 Last Admin: 01/08/23 15:13 Dose: 300 mg Documented By: COTY Apixaban (Apixaban 2.5 Mg Tab) 2.5 mg PO BID [facility] Stop: 02/07/23 13:50 Last Admin: 01/08/23 15:12 Dose: 2.5 mg Documented By: COTY Furosemide (Furosemide 40 Mg Tab) 40 mg PO DAILY [facility] Stop: 02/07/23 13:50 Last Admin: 01/08/23 15:13 Dose: 40 mg Documented By: COTY Sodium Chloride (Nss 1000ml) 1,000 mls @ 80 mls/hr IV .[id number] [facility] Stop: 02/07/23 09:14 Last Admin: 01/08/23 10:14 Dose: 80 mls/hr Documented By: NOEMÍ Cefepime HCl 2,000 mg/ Syringe 20 mls @ 5 mls/min IV Q12H [facility]; Protocol Stop: 01/18/23 12:59 Last Admin: 01/08/23 13:26 Dose: 5 mls/min Documented By: COTY Metoprolol Tartrate (Metoprolol Tartrate 1 Mg/Ml Vial) 5 mg IV Q4H PRN PRN Reason: Tachycardia, systained HR >120 Stop: 02/07/23 12:29 Last Admin: 01/08/23 13:26 Dose: 5 mg Documented By: COTY Spironolactone (Spironolactone 25 Mg Tab) 25 mg PO QAM JESSIE Stop: 02/07/23 13:50 Last Admin: 01/08/23 15:13 Dose: 25 mg Documented By: COTY Discontinued Medications Carvedilol (Carvedilol 12.5 Mg Tab) 12.5 mg PO NOW ONE Stop: 01/08/23 12:15 Last Admin: 01/08/23 12:53 Dose: 12.5 mg Documented By: COTY Diltiazem HCl (Diltiazem Hcl 5 Mg/Ml 5 Ml Vial) 10 mg IV NOW STA Stop: 01/08/23 09:15 Last Admin: 01/08/23 09:36 Dose: 10 mg Documented By: HS Co-signed By: SELENA Diltiazem HCl (Diltiazem Hcl 5 Mg/Ml 5 Ml Vial) 10 mg IV NOW STA Stop: 01/08/23 10:21 Last Admin: 01/08/23 10:37 Dose: 10 mg Documented By: HS Co-signed By: VINCE Diltiazem HCl (Diltiazem Hcl 180 Mg Capcr) 180 mg PO ONCE STA Stop: 01/08/23 12:15 Last Admin: 01/08/23 12:51 Dose: 180 mg Documented By: COTY Sodium Chloride (Nss 1000ml) 500 mls @ 999 mls/hr IV .Q31M ONE Stop: 01/08/23 09:44 Last Infusion: 01/08/23 10:15 Dose: 0 mls/hr Documented By: Admin: 01/08/23 09:42 Dose: 999 mls/hr Documented By: NOEMÍ Potassium Chloride (K Raj / Wtr) 10 meq in 100 mls @ 100 mls/hr IV ONE ONE; Protocol Stop: 01/08/23 11:51 Last Infusion: 01/08/23 12:51 Dose: 0 mls/hr Documented By: Admin: 01/08/23 11:19 Dose: 100 mls/hr Documented By: COTY Magnesium Sulfate/Dextrose (Magnesium Sulfate / D5w) 1 gm in 100 mls @ 50 mls/hr IV ONE ONE Stop: 01/08/23 12:51 Last Infusion: 01/08/23 14:02 Dose: 0 mls/hr Documented By: Admin: 01/08/23 11:18 Dose: 50 mls/hr Documented By: COTY Ioversol (Optiray 320 500ml) 113 ml IV ONCE ONE Stop: 01/08/23 12:46 Last Admin: 01/08/23 12:46 Dose: 113 ml Documented By: GLEN Imaging Data Radiologist's Impression: Chest X-Ray 01/08/23 09:04 XR chest 1V portable CLINICAL HISTORY: Chest pain, nonspecific COMPARISON STUDY: Chest radiograph December 22, 2022. PET/CT November 14, 2021. FINDINGS a right subclavian [id number] is in place. There is no pneumothorax or pleural effusion. There is no consolidation or evidence for pulmonary edema. Cardiomegaly is unchanged. The appearance of the chest is unchanged. IMPRESSION: No acute cardiopulmonary findings. ACT 112: Negative or not required by law. Electronically signed by: Robe Patterson M.D. 01/08/2023 10:58 AM Abdomen/Pelvis CT 01/08/23 11:12 CT OF THE ABDOMEN AND PELVIS WITH CONTRAST CLINICAL HISTORY: Abdominal pain. Lymphoma. COMPARISON STUDY: PET/CT November 14, 2022. CT of the abdomen and pelvis December 22, 2022. TECHNIQUE: Following IV administration of 113 mL of Optiray, axial images of the abdomen and pelvis were obtained from the lung bases to the proximal femurs. Images were reviewed in the axial, sagittal, and coronal planes. IV contrast was administered without complication. Automated exposure control was utilized for the study. A dose lowering technique was utilized adhering to the principles of ALARA. FINDINGS: A small right pleural effusion is noted. There is no pneumatosis, free air or portal venous gas. There are no suspicious hepatic lesions. Liver surface is slightly lobulated. There is no significant biliary ductal dilatation status post cholecystectomy. Spleen, adrenal glands and pancreas are unremarkable. There is no peripancreatic infiltration. Water attenuation bilateral renal lesions reflect cysts. Multiple left renal calculi measure up to 8 mm. There are no ureteral calculi. There is no hydronephrosis. Urothelial thickening of the collecting systems and proximal ureters is again noted. This is been shown on several prior exams. Ill-defined right retroperitoneal soft tissue superior to the right renal hilum has significantly decreased since PET/CT of November 14, 2022. This measures 4.3 x 2.7 cm. This is unchanged or slightly increased since CT of December 22, 2022. Ill-defined soft tissue within the central mesentery on axial image 164 measures 2.9 x 2.2 cm. This is also significantly improved since prior PET/CT. Lobulated water attenuation left groin abnormalities remain unchanged. This favors postsurgical change. These may reflect seromas. There is no evidence for a bowel obstruction. Sigmoid diverticulosis is present. No evidence for acute diverticulitis. The appendix is normal. Mild mesenteric stranding remains unchanged. No acute fractures are noted. IMPRESSION: 1. No acute process within the abdomen or pelvis. No bowel obstruction. 2. Ill-defined right retroperitoneal and central mesenteric soft tissue, significantly decreased since PET/CT of November 14, 2022. This favors lymphoma with significant treatment response. 3. Bilateral urothelial thickening which has been shown on prior exams. This co uld be correlated with urinalysis. 4. Left-sided nephrolithiasis. No ureteral calculi. 5. Lobulated low-attenuation fluid collections within the left groin which favor seromas. These are unchanged since CT of December 22, 2022. ACT 112: Negative or not required by law. Electronically signed by: Robe Patterson M.D. 01/08/2023 1:38 PM Chest CTA 01/08/23 11:18 CHEST CTA for PULMONARY ARTERIES CT DOSE: 1784.27 mGy.cm HISTORY: Atypical chest pain, eval for PE, hx of lymphoma TECHNIQUE: Multiaxial CT images of the chest were performed following the intravenous administration of contrast to evaluate the pulmonary arteries. Maximal intensity projection images were also obtained. A dose lowering technique was utilized adhering to the principles of ALARA. COMPARISON STUDY: PET CT 11/14/2022. FINDINGS: Normal caliber thoracic aorta with no evidence for a dissection. Mild calcified plaque within the thoracic aorta. A right subclavian Port-A-Cath remains in the SVC. The heart is mildly enlarged. There is a small right pleural effusion. No pleural effusion. Postoperative changes consistent with prior gastric bypass. There is a small hiatus hernia. No filling defects within the pulmonary arteries to suggest a pulmonary embolus. The thyroid gland enhances normally. No mediastinal or hilar lymphadenopathy. Subcutaneous soft tissue nodules in the prior study are no longer visualized. No suspicious lytic or blastic osseous lesions. Stable 3 mm nodule within the left lung apex on image 225. There are few punctate calcified granulomas within the right lung apex and mild dependent changes seen within the lung bases. No focal lung consolidations to suggest a pneumonia. No evidence for pulmonary edema. The central airways are patent. IMPRESSION: 1. No evidence for a pulmonary embolus. 2. Small right pleural effusion. 3. No lymphadenopathy. 4. Mild cardiomegaly. ACT 112: Negative or not required by law. Electronically signed by: Sky Gardner M.D. 01/08/2023 1:22 PM Discharge Plan Visit Data Chief Complaint: Chest Pain Stated Complaint: CHEST PAINS ED Provider: Vincent Burgos Discharge Problem: Atrial fibrillation with rapid ventricular response, Substernal chest pain, Generalized abdominal pain Discharge Instructions Interventions: ED Discharge Assessment Last Done: 01/08/23 13:51
[2023-01-08] MEDS: SODIUM CHLORIDE 0.9% 1000ML 1,000 ML IV SCH ×2 (10:14→20:27)
[2023-01-08 10:27] LABS: Albumin Globulin Ratio 1.3 (0.9-2); Albumin Level 3.5 gm/dl (3.4-5.0); BUN Creatinine Ratio 24.8 (10-20); Bilirubin,Total 0.7 mg/dl (0.2-1.0); Calcium 8.9 mg/dl (8.5-10.1); Creatinine Clr Calc Pharmacy 57.1 ml/min; Est GFR (African American) 62.3 ml/min; Est GFR (Non-African American) 53.8 ml/min; Globulin 2.6 gm/dl (2.5-4.0); Magnesium 1.7 mg/dl (1.7-2.4); Potassium 3.8 mmol/L (3.5-5.1); Total Protein 6.1 gm/dl (6.0-8.3)
[2023-01-08 10:36] LABS: Hematocrit (blood only) 32.7 % (37.0-47.0); Mean Corpuscular Hemoglobin 34.4 pg (25.0-34.0); Mean Corpuscular Hgb Conc 33.6 g/dL (32.0-36.0); Mean Corpuscular Volume 102.2 fL (80.0-100.0); Mean Platelet Volume 9.6 fL (9.4-12.4); Nucleated RBC # (auto) 0.21 K/uL (0-0.12); Nucleated RBC % (auto) 7.5 %; Platelet Count 190 K/uL (130-400); RDW Coefficient of Variation 13.6 % (11.5-14.5); RDW Standard Deviation 49.4 fL (36.4-46.3)
[2023-01-08 10:37] LABS: Basophils # (auto) 0.03 K/uL (0-0.2); Basophils % (auto) 1.1 %; Immature Granulocytes # (auto) 0.19 K/uL (0.01-0.20); Immature Granulocytes % (auto) 6.8 %; Lymphocytes # (auto) 0.64 K/uL (1.2-3.4); Lymphocytes % (auto) 22.9 %; Monocytes # (auto) 0.61 K/uL (0.11-0.59); Monocytes % (auto) 21.8 %; Neutrophils # (auto) 1.33 K/uL (1.40-6.50); Neutrophils % (auto) 47.4 %
[2023-01-08] MEDS ORDERED: MAGNESIUM SULFATE / D5W 1 GM/100 ML BAG IV ONE (10:52)
[2023-01-08] MEDS ORDERED: POTASSIUM CHLORIDE / WTR 10 MEQ/100 ML PLCT IV ONE (10:52)
[2023-01-08 10:54] LABS: INR 1.1 (0.9-1.1); Partial Thromboplastin Ratio 0.9; Partial Thromboplastin Time 24.7 Seconds (21.0-31.0); Prothrombin Time 11.5 Seconds (9.0-12.0)
--- NOTE | 2023-01-08 11:00 | XRay Report ---
XR chest 1V portable CLINICAL HISTORY: Chest pain, nonspecific COMPARISON STUDY: Chest radiograph December 22, 2022. PET/CT November 14, 2021. FINDINGS a right subclavian Rnjncn-b-Rskh is in place. There is no pneumothorax or pleural effusion. There is no consolidation or evidence for pulmonary edema. Cardiomegaly is unchanged. The appearance of the chest is unchanged. IMPRESSION: No acute cardiopulmonary findings. ACT 112: Negative or not required by law. Electronically signed by: Robe Patterson M.D. 01/08/2023 10:58 AM
[2023-01-08 11:39] LABS: Appearance Urine Cloudy (Clear); Bacteria Urine Automated Negative (Negative); Bilirubin Urine Negative (Negative); Blood Urine Negative (Negative); Color Urine Yellow; Epithelial Cell Urine Auto >30 /lpf (0-5); Glucose Urine UA Negative (Negative); Ketones Urine Negative (Negative); Leukocyte Esterase Urine 1+ (Negative); Nitrite Urine Negative (Negative); Protein Urine Trace (Negative); RBC Urine Automated 0-4 /hpf (0-4); Urobilinogen Urine Negative (Negative); WBC Urine Automated >30 /hpf (0-5)
--- NOTE | 2023-01-08 11:43 | History & Physical Report ---
Date of Service January 08, 2023 Assessment & Plan (1) Atrial fibrillation with rapid ventricular response: Plan: -Admit to the PCU on tele -At this time the patient is currently afebrile, hemodynamically stable, stable on RA and wit a HR ranging from the low 100's-103's at the time of the admission -Patient has a known history of permanent afib, unsure of the exactly etiology of her RVR at this time. Her mag was low-normal at 1.7 but otherwise no other electrolyte abnormalities. -CT chest with PE protocol ordered by the ED, will monitor for results to rule out PE, patient is on Eliquis but at a low dose (2.5 mg PO BID) and has active cancer -S/P 2 boluses of diltiazem, patient did not have her morning doses of Diltiazem or carvedilol, will give her am doses now -Will order prn IV lopressor 5 mg q4h prn sustained HR > 120 -Initial High sensitivity trop is 9.0, continue to monitor on tele and pulse oximetry -Will touch base with Dr. Jade to see if her dose of Eliquis needs to be increased -AM CBC, BMP, MAG, PT/INR (2) Substernal chest pain: Plan: -At this time the etiology of the patient's chest pain is unknown -Possibly related to her afib RVR but the pain is also close to her epigastric region so cannot rule out GERD -Initial trop is WNL, patient is currently without chest pain at the time of the exam -Will repeat a 2 hour troponin and monitor on tele (3) Generalized abdominal pain: Plan: -Unsure of the exact etiology at this time -Patient has been undergoing R-Chop chemotherapy with increased episodes of diarrhea recently -Will await results of the abdomen/pelvis CT with IV contrast, will also obtain stool studies as she was recently treated with IV antibiotics for her recent admission for sepsis and UTI -Will hold antidiarrheals until her stool studies result (4) Pancytopenia: Plan: -Currently stable and improved compared to previous admission -Continue to monitor daily (5) Dysuria: Plan: -Patient noted to have dysuria and increased urinary frequency on exam today -Was recently admitted and treated for UTI growing E.coli, and Enterobacter resistant to Macrobid with suspected inducible resistance to ceftriaxone. 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 Jade and had recent chemo last week -Continue to follow with Dr. Jade (10) Depression: Plan: -Continue Bupropion (11) Hyperlipemia: Plan: -Continue statin (12) Chronic diastolic congestive heart failure: Plan: -Examines Euvolemic today -Continue lasix and spironolactone Plan The patient was seen with and discussed with Dr. Fu at the time of the admission History of Present Illness Chief Complaint: Chest pain Primary Care Provider: Christopher Guevara MD Tea Dawkins is a 72-year-old female with a past medical history significant for recently diagnosed follicular lymphoma/B-cell lymphoma (Follows with Dr. Jade and currently on R-CHOP therapy), HOFFMAN cirrhosis, HTN, hyperlipidemia, CKD3, HFpEF, A. fib (on Eliquis), previous TIA, GERD, ROMULO, hypertension, obesity s/p Ngoc-en-Y bypass in 2007, depression, and anxiety who presented to the [facility] ED on 01/08/23 with a chief complaint of substernal chest pain. In the ED the patient was found to be afebrile, hemodynamically stable, stable on RA, but found to be in afib RVR with HR in the 150's. Labs were remarkable for a WBC of 2.80 with neutrophil count of 1.33, stable Hgb of 11.0, stable platelets of 190, stable cr of 1.05, stable electrolytes with a mag of 1.7, stable LFTs, initial high sensitivity trop of 9.0, lipase of 21, and covid negative, and UA showing a cloudy appearance, 1+ leukocyte esterase, >30 WBC, but negative for backteria. The patient was initially given two doses of 10 mg IV diltiazem, 1L NSS, 1gm IV mag, and 10 meq IV KCl and her HR improved into the low 100's. At the time of the admission the patient was undergoing CT of the abdomen/pelvis with IV contrast and CT chest PE protocol. Per chart review, the patient was recent admitted to [facility] from 12/24/22- 12/26/22 for Acute UTI, neutropenic fever, and new pancytopenia. Her UTI grew E.coli Enterobacter resistant to Macrobid with inducible resistance to Rocehpin. She was treated with Cefepime while admitted and then discharged with a course of Ciprofloxacin. Her pancytopenia was thought to be from recently starting R- CHOP therapy and her cell lines continued to improve prior to discharge home. At the time of the exam the patient was resting comfortably in bed in no acute distress with her sitting bedside, history was obtained from both. She states that she woke up this am and shortly after developed lower substernal/epigastric pain. She described the pain as sharp, a 10/10, and constant for approximately 2-3 hours. She took one of her "pain pills" and this did help to reduce the pain but not completely resolve it. Due the episode of chest pain she did become light headed at times but did not lose consciousness. When asked, she states that her chest discomfort did radiate to her shoulder blades at times and she was experiencing pain in the BL upper thighs with her left being worse than her right. She notes that she had lymph nodes removed from her upper left thigh previously and has experienced more swelling and underwent an US of the are last week. Review of her imaging shows a left groin ultrasound completed on 01/02/23. It was read as "Three left groin fluid collections, the largest of which measures 8 x 2.1 x 5.5 cm. Although sterility cannot be assessed by sonography, these are relatively similar appearing and not highly suggestive of abscesses. These may reflect seromas or old liquefying hematomas.". Her last dose of chemo was last Saturday. She feels as though she has been febrile with chills at times over the past few days but did not take her temperature. She denies recent SOB, nausea, vomiting, increased lower extremity swelling, and recent falls. When asked, she states that she has been having baseline diarrhea since starting chemotherapy but her diarrhea has been worse over the past week. She has been experiencing approximately 4-5 episodes of non- bloody diarrhea daily. When asked, she noted that she has been experiencing d ysuria and increased urinary frequency but denies hematuria. When asked, she confirms that these are the same symptoms she had last time she was admitted with the UTI in December. The patient wishes to be a full code and for her to make medical decisions for her if she could not make them herself. Please refer to Dr. Fu's attestation for any changes to the treatment plan Allergies Allergy/AdvReac Type Severity Reaction Status Date / Time No Known Allergies Allergy Verified 01/02/23 14:00 Home Medications Medication Instructions Recorded Confirmed Type bupropion HCl 150 mg 24 hr tablet, 150 mg PO QAM #90 tabs 03/01/22 01/08/23 Rx extended release nystatin 100,000 unit/gram topical 1 applic topical HS PRN fungal site 06/24/22 01/08/23 History powder (Nystop) atorvastatin 40 mg tablet (Lipitor) 40 mg PO QAM #90 tabs 07/06/22 01/08/23 Rx spironolactone 25 mg tablet 25 mg PO QAM #90 tabs 08/21/22 01/08/23 Rx (Aldactone) carvedilol 12.5 mg tablet (Coreg) 12.5 mg PO BID #180 tabs 10/31/22 01/08/23 Rx cholecalciferol (vitamin D3) 25 1,000 unit PO QAM 11/20/22 01/08/23 History mcg (1,000 unit) capsule (Vitamin D3) diltiazem HCl 180 mg capsule,24 180 mg PO DAILY #90 caps 11/20/22 01/08/23 Rx hr,extended release allopurinol 300 mg tablet 300 mg PO QAM 12/04/22 01/08/23 History apixaban 2.5 mg tablet 2.5 mg PO BID #180 tabs 12/07/22 01/08/23 Rx hydrocodone 5 mg-acetaminophen 325 1 tab PO Q4H PRN pain #10 tabs 12/10/22 01/08/23 Rx mg tablet pantoprazole 40 mg tablet,delayed 20 mg PO BID 12/10/22 01/08/23 History release oxycodone-acetaminophen 5 mg-325 1 tab PO Q6H PRN pain #10 tabs 12/20/22 01/08/23 Rx mg tablet (Percocet) furosemide 40 mg tablet (Lasix) 40 mg PO DAILY weight gain 01/02/23 01/08/23 History prednisone 20 mg tablet 20 mg PO 01/02/23 01/02/23 History Past Med/Surg History Medical History Anticoagulant long-term use B-cell lymphoma Carcinoid tumor Cardiac murmur Chronic diastolic congestive heart failure Chronic pain of inguinal region Cirrhosis CKD (chronic kidney disease), stage III Depression Dissection of vertebral artery Dysuria GERD (gastroesophageal reflux disease) History of anemia History of COVID-19 History of skin cancer Hx of pancreatitis Hyperlipemia Hypertension Kidney stones Lesion of ureter Mesenteric mass Permanent atrial fibrillation PFO (patent foramen ovale) Prediabetes Sleep apnea SOB (shortness of breath) on exertion TIA (transient ischemic attack) Surgical History H/O: hysterectomy History of bone marrow biopsy History of bowel resection History of cardiac radiofrequency ablation History of cardioversion History of colonoscopy (05/2022) History of colostomy History of colostomy reversal History of cystoscopy History of esophagogastroduodenoscopy (EGD) History of tubal ligation History of umbilical hernia repair Hx of abdominal surgery Hx of cholecystectomy Hx of laparoscopy Hx of lymph node biopsy Hx of removal of cyst Port-A-Cath in place (12/10/22) Family History Grandmother Diabetes Hypertension Mother Heart disease Hypertension Grandfather Stomach cancer Hypertension Father Pancreatic cancer Hypertension Other No family history of adverse response to anesthesia Denies family history of Ovarian cancer Breast cancer Colorectal cancer Social History Smoking Status: Former smoker Tobacco Type: Cigarettes Second Hand Exposure: No; Hx Alcohol Use: No Hx Substance Use: No Preferred Language: French Communication Ability: Effective Visual Impairment: No Limitations Hearing Ability: Normal Butcher Or Smallgoods Maker Required: No Beliefs That Will Affect Care: None marital status: Current Living Situation: Spouse 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 status: retired 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 All systems have been reviewed and are otherwise negative. Physical Exam Physical Exam: Physical Exam: General: In no acute distress, stated age, chronically ill-appearing but non- toxic appearing HEENT: Normocephalic, atraumatic, no scleral icterus, pupils around round, symmetrical, and reactive to light, moist mucus membranes, trachea midline, no thyromegaly Chest/Pulm: No respiratory distress, symmetrical chest expansion, clear breath sounds throughout Cardiac: irregular rate and rhythm, no murmurs noted Abdomen: Negative for ascites and bruising, normoactive bowel sounds, soft, tender to palpation throughout Musculoskeletal: Symmetrical and without signs of acute trauma, upper and lower extremities with full ROM, no atrophy, spasticity, or flaccidity Extremities: Radial, dorsalis pedis, and posterior tibial pulses are intact and symmetrical, no edema noted in the BL LE's, patient with a small fluid collection at her lymph node resection site in the left upper groin which is non-tender to palpation and without signs of infection Skin: Warm, dry, no rashes , lesions, or scars noted Neuro: Alert and oriented to person, place, month, year, and president, no focal defects, CN II-XII tested and intact, no tremors noted Psych: No acute distress, calm and cooperative during the exam Results & Data Results & Data ([facility]) Vital Signs (Past 12 Hours) Vital Signs Temp Pulse Resp BP Pulse Ox O2 Del Method 01/08/23 10:31 128 H 29 H 97 01/08/23 10:31 120/76 01/08/23 10:30 111 H 22 96 01/08/23 10:11 121 H 16 98 01/08/23 10:11 133/79 01/08/23 10:06 109 H 25 H 97 01/08/23 10:06 130/93 01/08/23 10:01 106 H 21 97 01/08/23 10:01 104/79 01/08/23 10:00 104 H 25 H 96 01/08/23 09:55 114/88 01/08/23 09:55 115 H 19 97 01/08/23 09:50 113 H 30 H 97 01/08/23 09:50 121/66 01/08/23 09:46 116 H 19 98 01/08/23 09:46 113/79 01/08/23 09:40 131/72 01/08/23 09:40 140 H 20 96 01/08/23 09:30 131 H 19 97 01/08/23 09:11 131 H 25 H 01/08/23 09:11 128/89 01/08/23 08:57 36.6 C 122 H 20 125/86 97 Room Air Laboratory Results Abnormal lab results 01/08/23 01/08/23 01/08/23 Range/Units 09:35 09:35 11:23 WBC 2.80 L (4.8-10.8) K/ul RBC 3.20 L (4.20-5.40) M/uL Hgb 11.0 L (12.0-16.0) g/dl Hct 32.7 L (37.0-47.0) % MCV 102.2 H (80.0-100.0) fL MCH 34.4 H (25.0-34.0) pg RDW Std Deviation 49.4 H (36.4-46.3) fL Neut # (Auto) 1.33 L (1.40-6.50) K/uL Lymph # (Auto) 0.64 L (1.2-3.4) K/uL George # (Auto) 0.61 H (0.11-0.59) K/uL Absolute Nucleated RBC 0.21 H (0-0.12) K/uL Chloride 109 H (98-107) mmol/L BUN 26 H (6-23) mg/dl BUN/Creatinine Ratio 24.8 H (10-20) AST 12 L (13-39) U/L Urine Appearance Cloudy A (Clear) Urine Protein Trace H (Negative) Ur Leukocyte Esterase 1+ H (Negative) Urine WBC (Auto) >30 H (0-5) /hpf U Epithel Cells (Auto) >30 H (0-5) /lpf Diagnostic Findings Chest X-Ray 01/08/23 09:04 XR chest 1V portable CLINICAL HISTORY: Chest pain, nonspecific COMPARISON STUDY: Chest radiograph December 22, 2022. PET/CT November 14, 2021. FINDINGS a right subclavian Oaidzv-d-Rhvl is in place. There is no pneumothorax or pleural effusion. There is no consolidation or evidence for pulmonary edema. Cardiomegaly is unchanged. The appearance of the chest is unchanged. IMPRESSION: No acute cardiopulmonary findings. ACT 112: Negative or not required by law. Electronically signed by: Robe Patterson M.D. 01/08/2023 10:58 AM ECG Additional Comments: Atrial fibrillation with rapid ventricular response Old Inferior infarct (cited on or before 19-DEC-2021) Possible Old Anterior infarct (cited on or before 22-DEC-2022) Abnormal ECG When compared with ECG of 22-DEC-2022 17:19, HR has increased by 29 bpm Otherwise no significant change Code Status & VTE Plan Code Status Full code VTE Prophylaxis Plan VTE Prophylaxis will be ordered: Yes Supervising Physician Co-Signing Physician Notes Tea Dawkins is a 72-year-old female with past medical history of A-fib on Eliquis, hyperlipidemia on atorvastatin, lymphoma, CKD, prediabetes, liver cirrhosis 2/2 HOFFMAN, hypertension who presented in A-fib RVR with feelings of abdominal pain markedly different from her prior abdominal/lymphoma pain. While in the ER she was given diltiazem 10 mg pushes x2 for A-fib with RVR rate into the 150s with downtrending rate 117773. At bedside assessment SpO2 with good waveform fluctuating 88%-94%. She is on dose reduced apixaban 2.5 p.o. twice daily, with a BMI of 40 and creatinine clearance of 60 on admission. Patient was pending CT for abdomen with contrast. Did have intermittent hypoxia, presentation with chest pain radiating between shoulder blades, and is at increased risk for clots 2/2 malignancy. Is on eliquis but dose reduced w/ BMI 40 and admit cr 1.08. D-dimer would be presumably positive in the setting of cancer regardless CTA was obtained at the same time to minimize contrast load. No leg swelling. Hr tachycardic irregular on exam. Lungs clear to auscultation. +epigastric tenderness. Permanent atrial fibrillation Rates 150s in ER, received diltiazem 10 mg x 2 with improvement to 376308s Continue carvedilol, diltiazem Electrolyte repletion as noted Pt with pain >8 hours, hs trop is negative. - Last echo 10/2022 EF 55%. Ok to use diltiazem for rate control. Metastatic carcinoid tumor/abdominal mass/follicular lymphoma suspected B-cell lymphoma Follows with CCP, on RCHOP as outpatient which was began in the beginning of 12/2022. Receiving every 21 days. Has been seen at [facility] 12/2021, 09/2022. Not felt to be a surgical candidate for mass resection given location and encasement of SMA. Cirrhosis 2/2 HOFFMAN: Cirrhotic appearance on CT, on lactulose/carvedilol/spironolactone Hyperlipidemia: Atorvastatin CKD 3: Follows with [facility], last baseline around 1.8 with EGFR 30 cc, on admission creatinine is 1.05 with clearance of 57. Trend, renally dose as needed Hypertension: As above Obesity: S/p Ngoc-en-Y gastric bypass 05/2008 at [facility]. +epigastric tenderness to palpation. +PPI as above Depression/anxiety: Wellbutrin Osteopenia: Vitamin D PG Care Time/CCT Total # of Minutes Spent Total Time Spent with Patient: Total time spent is greater than 50% in coordination of care (as documented) at patient's floor/unit and/or counseling patient: Coding [place] [address] INT INP/OBS CARE 3/75MIN Patient Type Established History Comprehensive Exam Comprehensive Medical Decision Making High Complexity Diagnoses Atrial fibrillation with rapid ventricular response I48.91 Substernal chest pain R07.2 Generalized abdominal pain R10.84 Pancytopenia D61.818 Dysuria R30.0 Hypertension I10 GERD (gastroesophageal reflux disease) K21.9 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
[2023-01-08] MEDS ORDERED: carvediloL 12.5 MG TAB PO ONE (12:14)
[2023-01-08] MEDS ORDERED: dilTIAZem HCL 180 MG CAPCR PO STA (12:14)
--- NOTE | 2023-01-08 12:26 | Electrocardiogram Report ---
Test Reason : Blood Pressure : / mmHG Vent. Rate : 144 BPM Atrial Rate : 153 BPM P-R Int : 000 ms QRS Dur : 088 ms QT Int : 284 ms P-R-T Axes : 000 -21 000 degrees QTc Int : 439 ms Atrial fibrillation with rapid ventricular response Old Inferior infarct (cited on or before 19-DEC-2021) Possible Old Anterior infarct (cited on or before 22-DEC-2022) Abnormal ECG When compared with ECG of 22-DEC-2022 17:19, HR has increased by 29 bpm Otherwise no significant change Confirmed by Trace Brewer ([id number]) on 01/08/2023 12:25:49 PM Referred By: ED Confirmed By:Trace Brewer
[2023-01-08] MEDS ORDERED: OPTIRAY 320 500ml IV ONE (12:45)
--- NOTE | 2023-01-08 13:23 | CT Scan Report ---
CHEST CTA for PULMONARY ARTERIES CT DOSE: 1784.27 mGy.cm HISTORY: Atypical chest pain, eval for PE, hx of lymphoma TECHNIQUE: Multiaxial CT images of the chest were performed following the intravenous administration of contrast to evaluate the pulmonary arteries. Maximal intensity projection images were also obtaine d. A dose lowering technique was utilized adhering to the principles of ALARA. COMPARISON STUDY: PET CT 11/14/2022. FINDINGS: Normal caliber thoracic aorta with no evidence for a dissection. Mild calcified plaque with in the thoracic aorta. A right subclavian Port-A-Cath remains in the SVC. The heart is mildly enlarge d. There is a small right pleural effusion. No pleural effusion. Postoperative changes consistent wit h prior gastric bypass. There is a small hiatus hernia. No filling defects within the pulmonary arter ies to suggest a pulmonary embolus. The thyroid gland enhances normally. No mediastinal or hilar lymp hadenopathy. Subcutaneous soft tissue nodules in the prior study are no longer visualized. No suspici ous lytic or blastic osseous lesions. Stable 3 mm nodule within the left lung apex on image 225. Ther e are few punctate calcified granulomas within the right lung apex and mild dependent changes seen wi thin the lung bases. No focal lung consolidations to suggest a pneumonia. No evidence for pulmonary e jacky. The central airways are patent. IMPRESSION: 1. No evidence for a pulmonary embolus. 2. Small right pleural effusion. 3. No lymphadenopathy. 4. Mild cardiomegaly. ACT 112: Negative or not required by law. Electronically signed by: Sky Gardner M.D. 01/08/2023 1:22 PM
[2023-01-08] MEDS: CEFEPIME 2,000 MG in SYRINGE 0 ML IV SCH ×2 (13:26→23:53)
[2023-01-08] MEDS: METOPROLOL TARTRATE 1 MG/ML VIAL IV PRN ×2 (13:26→23:53)
--- NOTE | 2023-01-08 13:40 | CT Scan Report ---
CT OF THE ABDOMEN AND PELVIS WITH CONTRAST CLINICAL HISTORY: Abdominal pain. Lymphoma. COMPARISON STUDY: PET/CT November 14, 2022. CT of the abdomen and pelvis December 22, 2022. TECHNIQUE: Following IV administration of 113 mL of Optiray, axial images of the abdomen and pelvis w ere obtained from the lung bases to the proximal femurs. Images were reviewed in the axial, sagittal, and coronal planes. IV contrast was administered without complication. Automated exposure control w as utilized for the study. A dose lowering technique was utilized adhering to the principles of DENTON Garcia. FINDINGS: A small right pleural effusion is noted. There is no pneumatosis, free air or portal venous gas. There are no suspicious hepatic lesions. Liver surface is slightly lobulated. There is no signi ficant biliary ductal dilatation status post cholecystectomy. Spleen, adrenal glands and pancreas are unremarkable. There is no peripancreatic infiltration. Water attenuation bilateral renal lesions ref lect cysts. Multiple left renal calculi measure up to 8 mm. There are no ureteral calculi. There is n o hydronephrosis. Urothelial thickening of the collecting systems and proximal ureters is again noted . This is been shown on several prior exams. Ill-defined right retroperitoneal soft tissue superior t o the right renal hilum has significantly decreased since PET/CT of November 14, 2022. This measures 4.3 x 2.7 cm. This is unchanged or slightly increased since CT of December 22, 2022. Ill-defined soft tissue within the central mesentery on axial image 164 measures 2.9 x 2.2 cm. This is also significan tly improved since prior PET/CT. Lobulated water attenuation left groin abnormalities remain unchange d. This favors postsurgical change. These may reflect seromas. There is no evidence for a bowel obstr uction. Sigmoid diverticulosis is present. No evidence for acute diverticulitis. The appendix is norm al. Mild mesenteric stranding remains unchanged. No acute fractures are noted. IMPRESSION: 1. No acute process within the abdomen or pelvis. No bowel obstruction. 2. Ill-defined right retroperitoneal and central mesenteric soft tissue, significantly decreased sinc e PET/CT of November 14, 2022. This favors lymphoma with significant treatment response. 3. Bilateral urothelial thickening which has been shown on prior exams. This could be correlated with urinalysis. 4. Left-sided nephrolithiasis. No ureteral calculi. 5. Lobulated low-attenuation fluid collections within the left groin which favor seromas. These are u nchanged since CT of December 22, 2022. ACT 112: Negative or not required by law. Electronically signed by: Robe Patterson M.D. 01/08/2023 1:38 PM
[2023-01-08] MEDS ORDERED: HYDROCODONE/ACETAMOPHEN 5/325MG TAB PO PRN (13:51)
[2023-01-08] MEDS ORDERED: ACETAMINOPHEN 325 MG TAB PO PRN (13:51)
[2023-01-08] MEDS ORDERED: oxyCODONE/ACETAMINOPHEN 5mg/325mg TAB PO PRN (13:51)
[2023-01-08] MEDS: APIXABAN 2.5 MG TAB PO SCH ×2 (15:12→20:27)
[2023-01-08] MEDS: allopurinoL 300 MG TAB PO SCH (15:13)
[2023-01-08] MEDS: SPIRONOLACTONE 25 MG TAB PO SCH (15:13)
[2023-01-08] MEDS: FUROSEMIDE 40 MG TAB PO SCH (15:13)
[2023-01-08] MEDS ORDERED: HEPARIN 100 UNIT/ML 5ML FLUSH FLUSH PRN (17:57)
[2023-01-08] MEDS: carvediloL 12.5 MG TAB PO SCH (20:26)
[2023-01-09] MEDS ORDERED: carvediloL 12.5 MG TAB PO ONE (02:00)
[2023-01-09 06:43] LABS: Hematocrit (blood only) 30.2 % (37.0-47.0); Hemoglobin 10.2 g/dl (12.0-16.0); Mean Corpuscular Hemoglobin 34.3 pg (25.0-34.0); Mean Corpuscular Hgb Conc 33.8 g/dL (32.0-36.0); Mean Corpuscular Volume 101.7 fL (80.0-100.0); Mean Platelet Volume 9.9 fL (9.4-12.4); Nucleated RBC % (auto) 4.8 %; Platelet Count 171 K/uL (130-400); RDW Coefficient of Variation 13.7 % (11.5-14.5); RDW Standard Deviation 49.6 fL (36.4-46.3); Red Blood Count 2.97 M/uL (4.20-5.40); White Blood Count 4.13 K/ul (4.8-10.8)
[2023-01-09 06:58] LABS: BUN Creatinine Ratio 21.5 (10-20); Calcium 8.7 mg/dl (8.5-10.1); Creatinine Clr Calc Pharmacy 56.4 ml/min; Est GFR (African American) 60.9 ml/min; Est GFR (Non-African American) 52.6 ml/min; Magnesium 1.9 mg/dl (1.7-2.4); Potassium 3.8 mmol/L (3.5-5.1)
[2023-01-09 07:16] LABS: INR 1.1 (0.9-1.1); Prothrombin Time 11.4 Seconds (9.0-12.0)
[2023-01-09] MEDS ORDERED: dilTIAZem HCL 180 MG CAPCR PO SCH (09:00)
[2023-01-09] MEDS: SPIRONOLACTONE 25 MG TAB PO SCH (09:05)
[2023-01-09] MEDS: carvediloL 12.5 MG TAB PO SCH ×2 (09:05→20:46)
[2023-01-09] MEDS: PANTOprazole 40 MG TAB PO SCH (09:05)
[2023-01-09] MEDS: buPROPion XL 150 MG TABCR PO SCH (09:05)
[2023-01-09] MEDS: ATORVASTATIN 40 MG TAB PO SCH (09:05)
[2023-01-09] MEDS: allopurinoL 300 MG TAB PO SCH (09:05)
[2023-01-09] MEDS: APIXABAN 2.5 MG TAB PO SCH ×2 (09:05→20:45)
[2023-01-09] MEDS: FUROSEMIDE 40 MG TAB PO SCH (09:05)
[2023-01-09] MEDS: SODIUM CHLORIDE 0.9% 1000ML 1,000 ML IV SCH ×2 (10:11→20:45)
[2023-01-09 11:28] LABS: Adenovirus F 40/41 PCR Not Detected (NotDetected); Astrovirus PCR Not Detected (NotDetected); Campylobacter PCR Not Detected (NotDetected); Cryptosporidium PCR Not Detected (NotDetected); Cyclospora cayetanensis PCR Not Detected (NotDetected); Entamoeba histolytica PCR Not Detected (NotDetected); Enteroaggregative E.coli(EAEC) Not Detected (NotDetected); Enteropathogenic E.coli (EPEC) Not Detected (NotDetected); Enterotoxigenic E.coli (ETEC) Not Detected (NotDetected); Giardia lamblia PCR Not Detected (NotDetected); Norovirus GI/GII PCR Not Detected (NotDetected); Plesiomonas shigelloides PCR Not Detected (NotDetected); Rotavirus A PCR Not Detected (NotDetected); Salmonella PCR Not Detected (NotDetected); Sapovirus PCR Not Detected (NotDetected); Shiga-like Toxin E.coli (STEC) Not Detected (NotDetected); Shigella/Enteroinvasive E.coli Not Detected (NotDetected); Vibrio cholerae PCR Not Detected (NotDetected); Vibrio species PCR Not Detected (NotDetected); Yersinia enterocolitica PCR Not Detected (NotDetected)
[2023-01-09] MEDS ORDERED: dilTIAZem HCl 60 MG TAB PO STA (12:28)
--- NOTE | 2023-01-09 12:38 | Hospitalist Progress Note ---
Date of Service January 09, 2023 Assessment & Plan (1) Atrial fibrillation with rapid ventricular response: Plan: Diltiazem dosage uptitrated slightly. Continue current Coreg dosage. Recent cardiac echo done October 2022 noted. Cardiology consultation pending. Co ntinue Eliquis. Chest CTA negative for PE. (2) Substernal chest pain: Plan: Resolved. Troponin series is normal and not trending. Repeat EKG does not reveal any acute findings. Will await cardiology consultation to determine if stress testing is necessary at this time (3) Generalized abdominal pain: Plan: Now resolved. CAT scan unremarkable. (4) Pancytopenia: Plan: Due to recent chemotherapy. No intervention necessary at this time. Serial labs (5) Dysuria: Plan: No definite evidence of urinary tract infection. Cefepime discontinued. 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 Stable . Treated with lasix and spironolactone (9) Lymphoma: Plan: Follows with Dr. Jade and had recent chemo last week (10) Depression: Plan: Stable and treated with Bupropion (11) Hyperlipemia: Plan: Treated with diet and statin (12) Chronic diastolic congestive heart failure: Plan: No acute exacerbation. Continue current medical management. Monitor intake and output Plan Anticipate discharge home tomorrow, January 10 Admission and Anticipated Discharge Date Admission Date: January 08, 2023 Subjective Alert and oriented. She denies any current chest pain. Troponin series is normal and not trending. Repeat EKG reveals atrial fibrillation with nonspecific ST and T wave changes with slightly rapid rate. Diltiazem CD dosage increased from 1 80-2 40. Continue Coreg at current dosage. Cardiology consu ltation pending. Recent cardiac echo reveals normal left ventricular ejection fraction with age-related valvular changes. Chest CTA negative for PE. Chest x-ray unremarkable. Review of Systems Review of Systems: Constitutional-no fever or chills ENT-no blurred vision, no double vision, no epistaxis, no sore throat Respiratory-no cough, no wheezing, no shortness of breath Cardiac- vague chest discomfort has resolved. Denies feeling palpitations. No syncope GI-no nausea, vomiting, diarrhea, melena, hematochezia. Discomfort has resolved -no urinary retention, no urinary incontinence, no dysuria, no hematuria Musculoskeletal-no joint pain, no muscle tenderness Skin-no bruising, no rashes, no pruritus Neuro-no isolated weakness, no paresthesia, no weakness Psych-no depression, no anxiety Physical Exam Physical Exam: General-alert and oriented x3, no fevers, no chills HEENT-head atraumatic and normocephalic, pupils equal and reactive to light, extraocular muscles intact Neck-no lymphadenopathy or thyromegaly, trachea midline Chest-clear to auscultation percussion. No rales wheezing or rhonchi Cardiac-irregular rhythm, slightly rapid rate. Normal S1 and S2 Abdomen-normal bowel sounds, nontender, no hepatosplenomegaly Extremities-no cyanosis, clubbing, or edema Neuro-cranial nerves II through XII intact, motor and sensory function within normal limits, strength symmetrical , no focal deficits Psych-normal affect, normal mood Results & Data Results & Data ([facility]) Vital Signs (Past 12 Hours) Vital Signs Temp Pulse Resp BP Pulse Ox O2 Del Method 01/09/23 10:51 36.7 C 96 H 19 111/72 95 Room Air 01/09/23 07:00 36.7 C 85 19 119/75 95 Room Air 01/09/23 03:55 108 H 01/09/23 02:28 36.7 C 124 H 16 109/73 94 Room Air Laboratory Results 01/09/23 05:23 01/09/23 05:23 PG Care Time/CCT Total # of Minutes Spent Total Time Spent with Patient: Total time spent is greater than 50% in coordination of care (as documented) at patient's floor/unit and/or counseling patient: Coding Level of Care Code 93728 SUB INP/OBS CARE 3/50MIN Diagnoses Atrial fibrillation with rapid ventricular response I48.91 Substernal chest pain R07.2 Generalized abdominal pain R10.84 Pancytopenia D61.818 Dysuria R30.0 Hypertension I10 GERD (gastroesophageal reflux disease) K21.9 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
--- NOTE | 2023-01-09 14:11 | Electrocardiogram Report ---
Test Reason : Blood Pressure : / mmHG Vent. Rate : 103 BPM Atrial Rate : 105 BPM P-R Int : 000 ms QRS Dur : 106 ms QT Int : 362 ms P-R-T Axes : 000 -16 -03 degrees QTc Int : 474 ms Atrial fibrillation with rapid ventricular response Old Inferior infarct (cited on or before 19-DEC-2021) Old Anterior infarct (cited on or before 22-DEC-2022) Abnormal ECG When compared with ECG of 08-JAN-2023 09:04, No significant change was found Confirmed by Trace Brewer ([id number]) on 01/09/2023 2:10:53 PM Referred By: REFERRED SELF Confirmed By:Trace Brewer
--- NOTE | 2023-01-09 19:15 | Cardiology Consultation ---
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 Negative troponins and absence of dynamic ST changes on ECG despite significant hemodynamic stress away against myocardial ischemia/significant coronary artery disease. As noted, rate control of her atrial fibrillation has been challenging over the years. Unfortunately, doubt that she can tolerate higher doses of diltiazem due to her tendency to hypotension and orthostasis. Would recommend remaining on a low-dose of diltiazem (120 mg daily) if blood pressure allows, while adding other negative chronotropic agents with less hypotensive impact. If she remains borderline hypotensive tomorrow, would hold even diltiazem. Add digoxin 125 mcg daily for additional rate control without BP effect. Beta-evelyn issue is difficult, as delinquent tax collector assistant prefers carvedilol over metoprolol. Unfortunately, carvedilol adds to the hypotensive effect and she needs additional negative chronotropic medications. I have at times use both agents, particularly when more beta-blockade is necessary but additional alpha blocking properties are not desired (e.g., patient exhibiting hypotension). At this point, would reduce her carvedilol to 6.25 mg twice daily with hold orders for systolic blood pressure less than 100 mmHg and start metoprolol 25 mg twice daily. Fortunately, she appears near euvolemic currently and has no heart failure symptoms. Her spironolactone has been continued, low threshold for restarting her furosemide if BP allows to avoid volume retention. Further recommendations based on her hemodynamic response to the above manipulations tomorrow, I will continue to follow her closely over the next several days. History of Present Illness Reason for Consultation: Atrial fibrillation with rapid response Requesting Physician: Antonio Connolly MD Attending Physician: Antonio Connolly MD History of Present Illness 72-year-old woman with permanent atrial fibrillation (s/p remote pulmonary venous ablation X 2, on apixaban/CCB/BB), HFpEF, HOFFMAN with cirrhosis, and lymphoma (undergoing cheotherapy) who was admitted 01/08/23 with abdominal and chest symptoms 1 week after her last chemotherapy regimen of R-CHOP and was noted to have atrial fibrillation and RVR. Her heart rate is quite variable, the past 4 years are plotted above, most of the high rate episodes are during periods of acute medical stress (such as GI bleeding or UTI), often during hospitalizations, of note her rate control had been better over the past year prior to this hospitalization. Due to difficulty controlling her ventricular response, during the initial years her negative chronotropic regimen was progressively increased, with a maximum dose of diltiazem 240 mg daily concurrent with metoprolol 150 mg twice daily. After stress study December 2019 during which she achieved only 64% of maximum predicted heart rate, at a time when she was complaining of marked fatigue, her metoprolol dose was reduced to 50 mg twice daily. Subsequently, at the suggestion of the delinquent tax collector assistant at [place] following her cirrhosis, in 2020 she was changed from metoprolol to carvedilol and this was titrated upward. Most recently (November 2022), due to orthostatic lightheadedness with orthostatic hypotension on exam, her diltiazem dose was reduced from 240 mg daily to 120 mg daily. She is also struggled with volume status, diuretics have been titrated over the years and most recently she has been on furosemide 40 mg daily/spironolactone 25 mg daily. She notes that over the past week her weight has been very steady. She has not had any recent overt heart failure symptoms. Since admission yesterday, she has received increasing doses of diltiazem and currently has good rate control (90 bpm), although her BP is borderline hypotensive (103/67 mmHg). At the time of my evaluation, she was sitting comfortably and had no abdominal or chest discomfort and no dyspnea. Allergies Allergy/AdvReac Type Severity Reaction Status Date / Time No Known Allergies Allergy Verified 01/02/23 14:00 Home Medications Medication Instructions Recorded Confirmed Type bupropion HCl 150 mg 24 hr tablet, 150 mg PO QAM #90 tabs 03/01/22 01/08/23 Rx extended release nystatin 100,000 unit/gram topical 1 applic topical HS PRN fungal site 06/24/22 01/08/23 History powder (Nystop) atorvastatin 40 mg tablet (Lipitor) 40 mg PO QAM #90 tabs 07/06/22 01/08/23 Rx spironolactone 25 mg tablet 25 mg PO QAM #90 tabs 08/21/22 01/08/23 Rx (Aldactone) carvedilol 12.5 mg tablet (Coreg) 12.5 mg PO BID #180 tabs 10/31/22 01/08/23 Rx cholecalciferol (vitamin D3) 25 1,000 unit PO QAM 11/20/22 01/08/23 History mcg (1,000 unit) capsule (Vitamin D3) diltiazem HCl 180 mg capsule,24 180 mg PO DAILY #90 caps 11/20/22 01/08/23 Rx hr,extended release allopurinol 300 mg tablet 300 mg PO QAM 12/04/22 01/08/23 History apixaban 2.5 mg tablet 2.5 mg PO BID #180 tabs 12/07/22 01/08/23 Rx hydrocodone 5 mg-acetaminophen 325 1 tab PO Q4H PRN pain #10 tabs 12/10/22 01/08/23 Rx mg tablet pantoprazole 40 mg tablet,delayed 20 mg PO BID 12/10/22 01/08/23 History release oxycodone-acetaminophen 5 mg-325 1 tab PO Q6H PRN pain #10 tabs 12/20/22 01/08/23 Rx mg tablet (Percocet) furosemide 40 mg tablet (Lasix) 40 mg PO DAILY weight gain 01/02/23 01/08/23 History prednisone 20 mg tablet 20 mg PO 01/02/23 01/02/23 History Patient History Medical History Anticoagulant long-term use B-cell lymphoma Carcinoid tumor Cardiac murmur Chronic diastolic congestive heart failure Chronic pain of inguinal region Cirrhosis CKD (chronic kidney disease), stage III Depression Dissection of vertebral artery Dysuria GERD (gastroesophageal reflux disease) History of anemia History of COVID-19 History of skin cancer Hx of pancreatitis Hyperlipemia Hypertension Kidney stones Lesion of ureter Mesenteric mass Permanent atrial fibrillation PFO (patent foramen ovale) Prediabetes Sleep apnea SOB (shortness of breath) on exertion TIA (transient ischemic attack) Surgical History H/O: hysterectomy History of bone marrow biopsy History of bowel resection History of cardiac radiofrequency ablation History of cardioversion History of colonoscopy (05/2022) History of colostomy History of colostomy reversal History of cystoscopy History of esophagogastroduodenoscopy (EGD) History of tubal ligation History of umbilical hernia repair Hx of abdominal surgery Hx of cholecystectomy Hx of laparoscopy Hx of lymph node biopsy Hx of removal of cyst Port-A-Cath in place (12/10/22) Family History Grandmother Diabetes Hypertension Mother Heart disease Hypertension Grandfather Stomach cancer Hypertension Father Pancreatic cancer Hypertension Other No family history of adverse response to anesthesia Denies family history of Ovarian cancer Breast cancer Colorectal cancer Social History Smoking Status: Former smoker Tobacco Type: Cigarettes Smoking End Date: 20 years ago; Second Hand Exposure: No; Hx Alcohol Use: No Hx Substance Use: No Preferred Language: Belarusian Communication Ability: Effective Visual Impairment: No Limitations Hearing Ability: Normal Road Driver Required: No Beliefs That Will Affect Care: None marital status: Current Living Situation: Spouse 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 status: retired 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 Current weight of 229 pounds is at the low end of her range over the past year (224-248 pounds). BP low normal. Skin: No obvious ecchymoses only, no generalized lesions. HEENT: unremarkable. Neck: Jugular venous pulse just above the clavicle at 90, no carotid bruits. Lungs clear. Cardiac: irregular rhythm with no murmur or gallop. Abdomen: Soft and nontender. Extremities: No edema, pulses brisk. Neurologic: normal affect and conversation, nonfocal. Results & Data ([facility]) Vital Signs (Past 12 Hours) Vital Signs Temp Pulse Resp BP Pulse Ox O2 Del Method 01/09/23 19:00 97.7 F 86 18 103/67 97 Room Air 01/09/23 15:18 98.1 F 82 19 112/76 95 Room Air 01/09/23 10:51 98.1 F 96 H 19 111/72 95 Room Air Laboratory Results High-sensitivity troponin negative x2. Normal electrolytes, BUN 23, creatinine 1.07. Diagnostic Findings Initial ECG showed atrial fibrillation with ventricular rate of 144 bpm, poor R wave progression and possible old inferior infarct. ECG today showed atrial fibrillation with ventricular rate 103 bpm with possible old inferior and anterior infarcts. Echocardiogram October 2022 showed EF 55% with mild MR/TR. Chest x-ray showed no acute findings. Chest CT showed no evidence of pulmonary embolism but did show small right pleural effusion. 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
[2023-01-10 06:35] LABS: Hematocrit (blood only) 28.6 % (37.0-47.0); Hemoglobin 9.5 g/dl (12.0-16.0); Mean Corpuscular Hemoglobin 33.9 pg (25.0-34.0); Mean Corpuscular Hgb Conc 33.2 g/dL (32.0-36.0); Mean Corpuscular Volume 102.1 fL (80.0-100.0); Mean Platelet Volume 9.8 fL (9.4-12.4); Nucleated RBC # (auto) 0.12 K/uL (0-0.12); Nucleated RBC % (auto) 2.6 %; Platelet Count 141 K/uL (130-400); RDW Coefficient of Variation 13.7 % (11.5-14.5); RDW Standard Deviation 49.5 fL (36.4-46.3); White Blood Count 4.67 K/ul (4.8-10.8)
[2023-01-10 06:45] LABS: BUN Creatinine Ratio 21.4 (10-20); Calcium 7.9 mg/dl (8.5-10.1); Creatinine Clr Calc Pharmacy 61.8 ml/min; Est GFR (African American) 67.7 ml/min; Est GFR (Non-African American) 58.4 ml/min; Potassium 3.6 mmol/L (3.5-5.1)
[2023-01-10] MEDS ORDERED: DIGOXIN 0.125 MG TAB PO ONE (08:30)
[2023-01-10] MEDS: FUROSEMIDE 40 MG TAB PO SCH (08:33)
[2023-01-10] MEDS: SPIRONOLACTONE 25 MG TAB PO SCH (08:33)
[2023-01-10] MEDS: ATORVASTATIN 40 MG TAB PO SCH (08:33)
[2023-01-10] MEDS: allopurinoL 300 MG TAB PO SCH (08:33)
[2023-01-10] MEDS: buPROPion XL 150 MG TABCR PO SCH (08:33)
[2023-01-10] MEDS: carvediloL 12.5 MG TAB PO SCH (08:34)
[2023-01-10] MEDS: PANTOprazole 40 MG TAB PO SCH (08:34)
[2023-01-10] MEDS: APIXABAN 2.5 MG TAB PO SCH (08:34)
[2023-01-10] MEDS ORDERED: dilTIAZem HCL 180 MG CAPCR PO SCH (09:00)
[2023-01-10] MEDS ORDERED: dilTIAZem HCL 240 MG CAPCR PO SCH (09:00)
[2023-01-10] MEDS: dilTIAZem HCL 120 MG CAPCR PO SCH (09:22)
--- NOTE | 2023-01-10 10:34 | Cardiology Progress Note ---
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 As noted in consultation, rate control can be quite challenging. Recommend the following for additional rate control while reducing risk of hypo tension: 1. Long-acting diltiazem 120 mg daily. 2. Metoprolol tartrate 25 mg every 8 hours while inpatient. 3. Digoxin 125 mcg loading dose now, second dose at 4 PM and 125 mg daily. In regards to anticoagulation, she was on reduced dose apixaban because of borderline renal function in the past, unspecified cancer diagnosis (which initially appeared to be a solid pancreatic region tumor tumor which would increase risk of bleeding secondary to invasive phenomenon), and the presence of cirrhosis. Her renal function has improved, her cancer is actually lymphoma and not a solid tumor with risk of invasion, and her cirrhosis is not severe and does not appear to impact her coagulation parameters (INR 1.1). Therefore, would recommend increasing apixaban from 2.5 mg twice daily to standard dose 5 mg twice daily. Patient is aware. We will continue to follow, will check back later this afternoon. Admission and Anticipated Discharge Date Admission Date: January 08, 2023 Subjective Uneventful night. She denies any chest pain, dyspnea, palpitations, or lightheadedness. She is comfortable currently. Telemetry showed atrial fibrillation with ventricular rates up to 170 bpm, most recently 110-120 bpm. Physical Exam Physical Exam: No distress. Weight up 1 pound overnight. BP normotensive. Pulse 112 bpm and irregular. Skin: No obvious ecchymoses only, no generalized lesions. HEENT: unremarkable. Neck: Jugular venous pulse at the clavicle at 90, no carotid bruits. Lungs clear. Cardiac: irregular, tachycardic rhythm with no murmur or gallop. Abdomen: Soft and nontender. Extremities: No edema, pulses brisk. Neurologic: normal affect and conversation, nonfocal. Results & Data ([facility]) Vital Signs (Past 12 Hours) Vital Signs Temp Pulse Pulse Resp BP Pulse Ox O2 Del Method 01/10/23 07:06 97.9 F 111 H 19 119/75 97 Room Air 01/10/23 03:00 97.7 F 98 H 18 110/75 96 Room Air 01/09/23 22:30 108 H 01/10/23 00:00 97.9 F 90 18 96/62 L 98 Room Air PG Care Time/CCT Total # of Minutes Spent Total Time Spent with Patient: Total time spent is greater than 50% in coordination of care (as documented) at patient's floor/unit and/or counseling patient: Coding Level of Care Code 41442 SUB INP/OBS CARE 3/50MIN Diagnoses Atrial fibrillation with rapid ventricular response I48.91 (HFpEF) heart failure with preserved ejection fraction I50.30 Current use of penitentiary anticoagulation Z79.01 Lymphoma C85.90 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
[2023-01-10] MEDS: METOPROLOL TARTRATE 25 MG TAB PO SCH ×2 (11:12→18:28)
[2023-01-10] MEDS: SODIUM CHLORIDE 0.9% 1000ML 1,000 ML IV SCH (12:40)
--- NOTE | 2023-01-10 12:57 | Hospitalist Progress Note ---
Date of Service January 10, 2023 Assessment & Plan (1) Atrial fibrillation with rapid ventricular response: Plan: Lanoxin has been added. Diltiazem and metoprolol dosages have been adjusted. Continue current Coreg dosage. Recent cardiac echo done October 2022 noted. Cardiology consultation and recommendations appreciated. Eliquis dosage has also been uptitrated. Chest CTA negative for PE. (2) Substernal chest pain: Plan: Resolved. Troponin series is normal and not trending. Repeat EKG does not reveal any acute findings. Continue telemetry (3) Generalized abdominal pain: Plan: Now resolved. CAT scan unremarkable. (4) Pancytopenia: Plan: Due to recent chemotherapy. No intervention necessary at this time. Serial labs (5) Dysuria: Plan: No definite evidence of urinary tract infection. Cefepime has already been discontinued. 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 Stable . Treated with lasix and spironolactone (9) Lymphoma: Plan: Follows with Dr. Jade and had recent chemo last week (10) Depression: Plan: Stable and treated with Bupropion (11) Hyperlipemia: Plan: Treated with diet and statin (12) Chronic diastolic congestive heart failure: Plan: No acute exacerbation. Continue current medical management. Monitor intake and output Plan Hopeful discharge home tomorrow, January 11 Admission and Anticipated Discharge Date Admission Date: January 08, 2023 Subjective Alert and oriented. We discussed medication changes and cardiology consultation recommendations. Eliquis has been uptitrated. She is now on digoxin. Dosages of diltiazem and metoprolol have been adjusted. Hopefully she can go home tomorrow, January 11 Review of Systems Review of Systems: Constitutional-no fever or chills ENT-no blurred vision, no double vision, no epistaxis, no sore throat Respiratory-no cough, no wheezing, no shortness of breath Cardiac- vague chest discomfort has resolved. Denies feeling palpitations. No syncope GI-no nausea, vomiting, diarrhea, melena, hematochezia. Discomfort has resolved -no urinary retention, no urinary incontinence, no dysuria, no hematuria Musculoskeletal-no joint pain, no muscle tenderness Skin-no bruising, no rashes, no pruritus Neuro-no isolated weakness, no paresthesia, no weakness Psych-no depression, no anxiety Physical Exam Physical Exam: General-alert and oriented x3, no fevers, no chills HEENT-head atraumatic and normocephalic, pupils equal and reactive to light, extraocular muscles intact Neck-no lymphadenopathy or thyromegaly, trachea midline Chest-clear to auscultation percussion. No rales wheezing or rhonchi Cardiac-irregular rhythm, slightly rapid rate. Normal S1 and S2 Abdomen-normal bowel sounds, nontender, no hepatosplenomegaly Extremities-no cyanosis, clubbing, or edema Neuro-cranial nerves II through XII intact, motor and sensory function within normal limits, strength symmetrical , no focal deficits Psych-normal affect, normal mood Results & Data Results & Data ([facility]) Vital Signs (Past 12 Hours) Vital Signs Temp Pulse Resp BP Pulse Ox O2 Del Method 01/10/23 10:49 36.6 C 100 H 19 107/72 96 Room Air 01/10/23 07:06 36.6 C 111 H 19 119/75 97 Room Air 01/10/23 03:00 36.5 C 98 H 18 110/75 96 Room Air Laboratory Results 01/10/23 05:42 01/10/23 05:42 PG Care Time/CCT Total # of Minutes Spent Total Time Spent with Patient: Total time spent is greater than 50% in coordination of care (as documented) at patient's floor/unit and/or counseling patient: Coding Level of Care Code 71746 SUB INP/OBS CARE 3/50MIN Diagnoses Atrial fibrillation with rapid ventricular response I48.91 Substernal chest pain R07.2 Generalized abdominal pain R10.84 Pancytopenia D61.818 Dysuria R30.0 Hypertension I10 GERD (gastroesophageal reflux disease) K21.9 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
[2023-01-10] MEDS ORDERED: DIGOXIN 0.125 MG TAB PO SCH (16:00)
[2023-01-10] MEDS: APIXABAN 5 MG TABLET PO SCH (20:09)
[2023-01-11] MEDS: METOPROLOL TARTRATE 25 MG TAB PO SCH (05:29)
[2023-01-11 06:42] LABS: Calcium 8.3 mg/dl (8.5-10.1); Potassium 3.6 mmol/L (3.5-5.1)
[2023-01-11 06:47] LABS: BUN Creatinine Ratio 19.2 (10-20); Creatinine Clr Calc Pharmacy 61.2 ml/min; Est GFR (African American) 66.9 ml/min; Est GFR (Non-African American) 57.7 ml/min
[2023-01-11] MEDS: allopurinoL 300 MG TAB PO SCH (08:13)
[2023-01-11] MEDS: buPROPion XL 150 MG TABCR PO SCH (08:14)
[2023-01-11] MEDS: ATORVASTATIN 40 MG TAB PO SCH (08:14)
[2023-01-11] MEDS: FUROSEMIDE 40 MG TAB PO SCH (08:14)
[2023-01-11] MEDS: SPIRONOLACTONE 25 MG TAB PO SCH (08:14)
[2023-01-11] MEDS: PANTOprazole 40 MG TAB PO SCH (08:14)
[2023-01-11] MEDS: APIXABAN 5 MG TABLET PO SCH (08:15)
[2023-01-11] MEDS: dilTIAZem HCL 120 MG CAPCR PO SCH (08:15)
[2023-01-11] MEDS ORDERED: carvediloL 6.25 MG TAB PO SCH (09:00)
--- NOTE | 2023-01-11 11:30 | Cardiology Progress Note ---
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 Given breakthrough episodes of tachycardia, would complete the transition by discontinuing carvedilol and increasing metoprolol to 50 mg twice daily. Continue long-acting diltiazem 120 mg daily as well as digoxin 125 mcg daily. She appears euvolemic, continue furosemide 40 mg daily. She will increase her apixaban from 2.5 mg twice daily to 5 mg twice daily. Okay for discharge, case discussed with Dr. Connolly. Follow-up with me in 1 to 2 weeks. Admission and Anticipated Discharge Date Admission Date: January 08, 2023 Subjective Aside from mild fatigue, she continues to feel well, even during periods of tachycardia. Rate generally well controlled overnight (80-90 bpm) with transient elevations this morning (up to 150 bpm briefly). At the time of my evaluation, she had no somatic complaints. Physical Exam Physical Exam: No distress. Weight unchanged overnight. BP normotensive. Pulse 90 bpm and irregular. Skin: No obvious ecchymoses only, no generalized lesions. HEENT: unremarkable. Neck: Jugular venous pulse at the clavicle at 90, no carotid bruits. Lungs clear. Cardiac: irregular, tachycardic rhythm with no murmur or gallop. Abdomen: Soft and nontender. Extremities: No edema, pulses brisk. Neurologic: normal affect and conversation, nonfocal. Results & Data ([facility]) Laboratory Results Normal electrolytes, BUN 19, creatinine 0.99. 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
--- NOTE | 2023-01-11 11:40 | Discharge Summary ---
Date of Service January 11, 2023 Admission HPI Per Admitting Provider Tea Dawkins is a 72-year-old female with a past medical history significant for recently diagnosed follicular lymphoma/B-cell lymphoma (Follows with Dr. Jade and currently on R-CHOP therapy), HOFFMAN cirrhosis, HTN, hyperlipidemia, CKD3, HFpEF, A. fib (on Eliquis), previous TIA, GERD, ROMULO, hypertension, obesity s/p [place]-Y bypass in 2007, depression, and anxiety who presented to the [facility] ED on 01/08/23 with a chief complaint of substernal chest pain. In the ED the patient was found to be afebrile, hemodynamically stable, stable on RA, but found to be in afib RVR with HR in the 150's. Labs were remarkable for a WBC of 2.80 with neutrophil count of 1.33, stable Hgb of 11.0, stable platelets of 190, stable cr of 1.05, stable electrolytes with a mag of 1.7, stable LFTs, initial high sensitivity trop of 9.0, lipase of 21, and covid negative, and UA showing a cloudy appearance, 1+ leukocyte esterase, >30 WBC, but negative for backteria. The patient was initially given two doses of 10 mg IV diltiazem, 1L NSS, 1gm IV mag, and 10 meq IV KCl and her HR improved into the low 100's. At the time of the admission the patient was undergoing CT of the abdomen/pelvis with IV contrast and CT chest PE protocol. Per chart review, the patient was recent admitted to [facility] from 12/24/22- 12/26/22 for Acute UTI, neutropenic fever, and new pancytopenia. Her UTI grew E.coli Enterobacter resistant to Macrobid with inducible resistance to Rocehpin. She was treated with Cefepime while admitted and then discharged with a course of Ciprofloxacin. Her pancytopenia was thought to be from recently starting R- CHOP therapy and her cell lines continued to improve prior to discharge home. At the time of the exam the patient was resting comfortably in bed in no acute distress with her sitting bedside, history was obtained from both. She states that she woke up this am and shortly after developed lower substernal/epigastric pain. She described the pain as sharp, a 10/10, and constant for approximately 2-3 hours. She took one of her "pain pills" and this did help to reduce the pain but not completely resolve it. Due the episode of chest pain she did become light headed at times but did not lose consciousness. When asked, she states that her chest discomfort did radiate to her shoulder blades at times and she was experiencing pain in the BL upper thighs with her left being worse than her right. She notes that she had lymph nodes removed from her upper left thigh previously and has experienced more swelling and underwent an US of the are last week. Review of her imaging shows a left groin ultrasound completed on 01/02/23. It was read as "Three left groin fluid collections, the largest of which measures 8 x 2.1 x 5.5 cm. Although sterility cannot be assessed by sonography, these are relatively similar appearing and not highly suggestive of abscesses. These may reflect seromas or old liquefying hematomas.". Her last dose of chemo was last Saturday. She feels as though she has been febrile with chills at times over the past few days but did not take her temperature. She denies recent SOB, nausea, vomiting, increased lower extremity swelling, and recent falls. When asked, she states that she has been having baseline diarrhea since starting chemotherapy but her diarrhea has been worse over the past week. She has been experiencing approximately 4-5 episodes of non- bloody diarrhea daily. When asked, she noted that she has been experiencing dysuria and increased urinary frequency but denies hematuria. When asked, she confirms that these are the same symptoms she had last time she was admitted with the UTI in December. The patient wishes to be a full code and for her to make medical decisions for her if she could not make them herself. Please refer to Dr. Fu's attestation for any changes to the treatment plan Principal Diagnosis Chronic atrial fibrillation with rapid ventricular rate, chest pain, abdominal pain Discharge Exam General-alert and oriented x3, no fevers, no chills HEENT-head atraumatic and normocephalic, pupils equal and reactive to light, extraocular muscles intact Neck-no lymphadenopathy or thyromegaly, trachea midline Chest-clear to auscultation percussion. No rales wheezing or rhonchi Cardiac-irregular rhythm, slightly rapid rate. Normal S1 and S2 Abdomen-normal bowel sounds, nontender, no hepatosplenomegaly Extremities-no cyanosis, clubbing, or edema Neuro-cranial nerves II through XII intact, motor and sensory function within normal limits, strength symmetrical , no focal deficits Psych-normal affect, normal mood Discharge Data Allergies Allergy/AdvReac Type Severity Reaction Status Date / Time No Known Allergies Allergy Verified 01/02/23 14:00 Consultations 01/09/23 12:31 Consult Cardiology Routine Ordered Studies 01/08/23 11:12 CT Abd and Pelvis [CT abd pelvis IV con only] Stat 01/08/23 11:18 CT angio chest PE protocol Stat Hospital Course (1) Atrial fibrillation with rapid ventricular response: Lanoxin has been added. Diltiazem and metoprolol dosages have been adjusted. Case discussed with cardiology. Coreg will be discontinued. Recent cardiac echo done October 2022 noted. Cardiology consultation and recommendations appreciated. Eliquis dosage has also been uptitrated. Chest CTA negative for PE. (2) Substernal chest pain: Resolved. Troponin series is normal and not trending. Repeat EKG does not reveal any acute findings. Continue telemetry (3) Generalized abdominal pain: Now resolved. CAT scan unremarkable. (4) Pancytopenia: Due to recent chemotherapy. No intervention necessary at this time. Serial labs (5) Dysuria: No definite evidence of urinary tract infection. Cefepime has already been discontinued. 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 Stable . Treated with lasix and spironolactone (9) Lymphoma: Follows with Dr. Jade and had recent chemo last week (10) Depression: Stable and treated with Bupropion (11) Hyperlipemia: Treated with diet and statin (12) Chronic diastolic congestive heart failure: No acute exacerbation. Continue current medical management. Monitor intake and output Plan Discharge to home todayJanuary 11 Total Time Total Time Spent Total Time Spent (In Minutes): 35 minutes Discharge Plan Discharge Items Patient Disposition: Home - Self-Care Reason For Visit: CHEST PAIN Discharge Diagnosis: Chronic atrial fibrillation with rapid ventricular rate, noncardiac chest pain, abdominal pain Activity: Resume your previous activity Non-emergency contact: Primary Care Provider Call non-emergency contact if: you have any medication questions Follow-up/Referrals: Christopher Guevara MD [Primary Care Provider] - Diet: Heart Healthy Addtl Attending Provider Instructions: Carvedilol has been discontinued. Metoprolol is new. Eliquis dosage has been increased. Lanoxin is new. Diltiazem dosage has been decreased Pending Studies at Discharge: No Stand-Alone Forms: My [facility], Smoking Cessation Medications and DC Order Prescriptions: New metoprolol tartrate 50 mg Tablet 50 mg PO BID Qty: 60 0RF diltiazem HCl [Cardizem CD] 120 mg Capsule,Extended Release 24hr 120 mg PO DAILY Qty: 30 0RF digoxin [Digitek] 125 mcg (0.125 mg) Tablet 0.125 mg PO DAILY@1600 Qty: 30 0RF Eliquis 5 mg Tablet 5 mg PO BID Qty: 0 0RF Continued bupropion HCl 150 mg tablet extended release 24 hr 150 mg PO QAM Qty: 90 3RF atorvastatin [Lipitor] 40 mg tablet 40 mg PO QAM Qty: 90 3RF spironolactone [Aldactone] 25 mg tablet 25 mg PO QAM Qty: 90 3RF cholecalciferol (vitamin D3) [Vitamin D3] 25 mcg (1,000 unit) capsule 1,000 unit PO QAM allopurinol 300 mg tablet 300 mg PO QAM oxycodone-acetaminophen [Percocet] 5-325 mg tablet 1 tab PO Q6H PRN (Reason: pain) Qty: 10 0RF furosemide [Lasix] 40 mg tablet 40 mg PO DAILY prednisone 20 mg tablet 20 mg PO Label Comments: as directed at begining of [place] nystatin [Nystop] 100,000 unit/gram powder 1 applic topical HS PRN (Reason: fungal site) pantoprazole 40 mg tablet,delayed release (DR/EC) 20 mg PO BID hydrocodone-acetaminophen 5-325 mg tablet 1 tab PO Q4H PRN (Reason: pain) Qty: 10 0RF Rx Instructions: For severe pain you may take 2 tablets but not more than 6 tablets in a single day Discontinued carvedilol [Coreg] 12.5 mg tablet 12.5 mg PO BID Qty: 180 3RF Rx Instructions: must administer with a meal/food apixaban 2.5 mg tablet 2.5 mg PO BID Qty: 180 3RF diltiazem HCl 180 mg capsule,extended release 24 hr 180 mg PO DAILY Qty: 90 3RF Label Comments: QAM Discharge Orders: Discharge Order (Routine); Ordered 01/11/23 Ordered By: Antonio Connolly Admission Data Admit Date/Time: 01/08/23 11:43 Attending Provider: Antonio Connolly Admit Provider: Jesse Fu Primary Care Provider: Christopher Guevara Other Providers: Filemon Mueller ; Trace Brewer ; Michael Stanley ; Alexey Decker ; Radu Núñez ; Checo Carrillo Jr ; Leonardo Herr ; Desi Bender ; Anahy John ; Donal Jackman ; Christopher Monzon ; Antonio Clarke ; Ivonne Perkins ; Mae Foster ; Chan Day ; José Aleman Henry C. ; Alexey Griggs V. 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
[2023-01-11] MEDS ORDERED: METOPROLOL TARTRATE 50 MG TAB PO SCH (21:00)
== END 2023-01-11 12:14 | disposition home or self-care (01) | DRG 309 ==
LOC: ED 08:53 → EDINP 11:43 → SUATTDRO 11:43 → 4W 13:51

== ENCOUNTER 2023-04-08 12:09 | Inpatient (IN) ==
[2023-04-08] MEDS ORDERED: CEFEPIME 2,000 MG in SYRINGE 0 ML IV STA (13:03)
--- NOTE | 2023-04-08 13:03 | Emergency Department Note ---
History of Present Illness General Chief complaint: Edema To Extremity Stated complaint: UPPER INNER THIGH SWOLLEN AND HOT TO TOUCH Time Seen by Provider: 04/08/23 12:35 Source: patient, family ( who is at the bedside) and old records reviewed (Old records from recent visit/hospitalization. Also an ultrasound report from January 2023) Mode of arrival: ambulatory Limitations: no limitations History of Present Illness Maximum Pain Intensity: 8 This patient is 72-year-old female with a complex medical history with non- Hodgkin's lymphoma, comes in with redness and swelling in her left thigh. It is in the anterior thigh and goes medially. Is been going on for about 2 days she had a lymph node removed and there about 6 months ago. No history of DVT she is on Eliquis for chronic A-fib. She also says she finished her non-Hodgkin's mueller treatment last week is waiting a follow-up PET scan she has had trouble when she eats it feels like her stomach is raw she had no food for 3 days when she eats she gets upset she is also had low back pain but no dysuria or hematuria. no fall or trauma. no abdominal pain.no chest pain or shortness of breath.. She denies any allergies. Home Medications Medication Instructions Recorded Confirmed Type nystatin 100,000 unit/gram topical 1 applic topical HS PRN fungal site 06/24/22 04/08/23 History powder (Nystop) atorvastatin 40 mg tablet (Lipitor) 40 mg PO QAM #90 tabs 07/06/22 04/08/23 Rx spironolactone 25 mg tablet 25 mg PO QAM #90 tabs 08/21/22 04/08/23 Rx (Aldactone) allopurinol 300 mg tablet 300 mg PO QAM 12/04/22 04/08/23 History oxycodone-acetaminophen 5 mg-325 1 tab PO Q6H PRN pain #10 tabs 12/20/22 04/08/23 Rx mg tablet (Percocet) diltiazem HCl 120 mg 120 mg PO DAILY #90 caps 01/22/23 04/08/23 Rx capsule,extended release 24 hr (Cardizem CD) pantoprazole 20 mg tablet,delayed 20 mg PO BID #180 tabs 01/22/23 04/08/23 Rx release bupropion HCl 150 mg 24 hr tablet, 150 mg PO QAM #90 tabs 01/29/23 04/08/23 Rx extended release apixaban 5 mg tablet (Eliquis) 5 mg PO BID #180 tabs 02/05/23 04/08/23 Rx digoxin 125 mcg (0.125 mg) tablet 0.125 mg PO DAILY 02/11/23 04/08/23 History (Digitek) sennosides 8.6 mg-docusate sodium 1 - 2 tab-cap PO BID PRN 02/11/23 04/08/23 Rx 50 mg tablet (Senokot-S) constipation #60 tabs cholecalciferol (vitamin D3) 25 2,000 unit PO QAM 02/19/23 04/08/23 History mcg (1,000 unit) capsule (Vitamin D3) metoprolol tartrate 50 mg tablet 50 mg PO BID #180 tabs 02/19/23 04/08/23 Rx furosemide 40 mg tablet (Lasix) 40 mg PO DAILY weight gain #180 03/18/23 04/08/23 Rx tabs Allergies Allergy/AdvReac Type Severity Reaction Status Date / Time No Known Allergies Allergy Verified 04/08/23 14:46 Past Med/Surg History Medical History (HFpEF) heart failure with preserved ejection fraction Abdominal discomfort, epigastric Acute blood loss anemia Anticoagulant long-term use B-cell lymphoma NEW DX B12 deficiency Carcinoid tumor PET SCAN AT [facility]> "PLANS TO TREAT FOR B CELL LYMPHOMA SHOULD TREAT CARCINOID TUMOR" Cardiac murmur Mild MR and TR per 10/2022 ECHO Chronic diastolic congestive heart failure Chronic diastolic congestive heart failure Chronic pain of inguinal region Cirrhosis Cirrhosis CKD (chronic kidney disease), stage III 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 Depression Dissection of vertebral artery pt unsure/unaware Dysuria Fatigue GERD (gastroesophageal reflux disease) GERD (gastroesophageal reflux disease) History of anemia IRON INFUSIONS IN PAST History of COVID-19 07/2022>RESOLVED History of skin cancer Hx of pancreatitis Hyperlipemia Hypertension Hypertension Iron deficiency Kidney stones CURRENT BUT NO CAUSES NO PROBLEM Lesion of ureter biopsy 12/29/2020 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 recent PET scan --- RECENT B CELL LYMPHOMA CONFIRMED Morbid obesity Nausea and vomiting Pancytopenia Permanent atrial fibrillation PFO (patent foramen ovale) Suspected per records Prediabetes Sleep apnea NO DEVICE SOB (shortness of breath) on exertion TIA (transient ischemic attack) 2018- [place] - no residual -NO ISSUES SINCE Surgical History H/O: hysterectomy History of bone marrow biopsy History of bowel resection WITH COLOSTOMY R/T SBO History of cardiac radiofrequency ablation D/T AFIB - PT REPORTS HAD 1 BUT MAYBE 2 - NOT SURE DATES ([facility]) History of cardioversion multiple History of colonoscopy (05/2022) History of colostomy r/t bowel blockage History of colostomy reversal History of cystoscopy History of esophagogastroduodenoscopy (EGD) History of gastric bypass History of tubal ligation History of umbilical hernia repair Hx of abdominal surgery FOR REMOVAL OF CYST - PT NOT SURE TYPE Hx of cholecystectomy Hx of laparoscopy Hx of lymph node biopsy Hx of removal of cyst Port-A-Cath in place (12/10/22) Access port placement and use of fluoroscopy. Dr. Leger S/P ureteral stent placement Family History Grandmother Diabetes Hypertension Mother Heart disease Hypertension Grandfather Stomach cancer Hypertension Father Pancreatic cancer Hypertension Other No family history of adverse response to anesthesia Denies family history of Ovarian cancer Breast cancer Colorectal cancer Social History Smoking Status: Never smoker Tobacco Type: Cigarettes Second Hand Exposure: No; Do You Dip or Chew Tobacco: No; Hx Alcohol Use: No Hx Substance Use: No Preferred Language: Slovak Communication Ability: Effective Visual Impairment: No Limitations Hearing Ability: Normal Dog Beautician Required: No Beliefs That Will Affect Care: None marital status: Current Living Situation: Spouse 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 status: retired 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) How many Children do You have: 1 other: WE[employer] DES[employer]ER [employer] Feels Safe at Home: Yes Diet: regular caffeine: No Dental Care, Regularly: Yes Physical Activity Frequency: Does not Exercise Seatbelt Use: always Sunscreen Use: No Assistive Devices: None Review of Systems A total of 10 systems reviewed and were otherwise negative Physical Exam Vital Signs Vital Signs - 24 hr 04/08/23 12:14 04/08/23 13:32 04/08/23 14:13 Temperature 36.5 C Temperature Source Temporal Artery Scan Pulse Rate 87 86 98 H Pulse Rate [Apical] Pulse Rhythm Regular Respiratory Rate 20 21 Respiratory Effort / Characteristics Non-Labored Spontaneous Respiratory Depth Normal Blood Pressure 133/72 163/74 H Blood Pressure [Left Arm] Blood Pressure Mean 92 103 Blood Pressure Mean [Left Arm] Pulse Oximetry 97 97 Oxygen Delivery Method Room Air Sepsis Recent Fever Within 48 Hours No Sepsis New/Unexplained Change in Mental Status No Sepsis Action Taken by Nursing No Action Required 04/08/23 14:31 04/08/23 16:03 04/08/23 16:05 Temperature Temperature Source Pulse Rate 84 Pulse Rate [Apical] 86 Pulse Rhythm Respiratory Rate 24 20 Respiratory Effort / Characteristics Non-Labored Spontaneous Respiratory Depth Normal Blood Pressure 122/61 Blood Pressure [Left Arm] 153/83 H Blood Pressure Mean 81 Blood Pressure Mean [Left Arm] 106 Pulse Oximetry 94 97 97 Oxygen Delivery Method Room Air Room Air Sepsis Recent Fever Within 48 Hours Sepsis New/Unexplained Change in Mental Status Sepsis Action Taken by Nursing General: Well developed well nourished older female who in no acute distress, breathing comfortably on room air. Normal speech HEENT: Normal cephalic atraumatic. Pupils are equal round and reactive to light. Extraocular movements are intact. Oropharynx is pink with moist mucous membranes. No swelling of the mouth lips or tongue. Neck: Supple with a midline trachea. No meningeal signs or stiffness, no JVD or bruits. No Stridor. Chest: Clear to auscultation bilaterally. No wheezes or rhonchi. No increased work of breathing. Heart: Regular rate and rhythm without murmurs or gallops. Abdomen: Soft nontender, nondistended without rebound guarding or rigidity. Extremities: No cyanosis clubbing or edema. No calf tenderness or assymetry. The left anterior groin is indurated an red it is very tender and the induration area is large. No crepitus. there is a scar from a previous lymph node removal. Spine/Back. Non tender to palpation. No CVA tenderness Skin: Good turgor without rashes. Neurologic exam: Cranial nerves two through 12 are intact. Motor and sensation are intact and symmetrical throughout. Course Administered Medications Discontinued Medications Cefepime HCl 2,000 mg/ Syringe 20 mls @ 5 mls/min IV NOW STA; Protocol Stop: 04/08/23 13:06 Last Admin: 04/08/23 14:07 Dose: 5 mls/min Documented By: MT Morphine Sulfate (Morphine Sulfate 2 Mg/Ml Carp) 2 mg IV NOW STA Stop: 04/08/23 15:23 Last Admin: 04/08/23 15:30 Dose: 2 mg Documented By: HS Ondansetron HCl (Ondansetron Inj 2 Mg/Ml 2 Ml Vial) 4 mg IV NOW STA Stop: 04/08/23 15:23 Last Admin: 04/08/23 15:55 Dose: 4 mg Documented By: HS Medical Decision Making Differential Diagnosis DVT, abscess, hematoma, dehydration, cancer related complications, sepsis, electrolyte or metabolic abnormality, anemia Medical Records Attestation: I reviewed the patient's medical records. Home Medications Current Medication List: was personally reviewed by me Laboratory Data Attestation: I reviewed the patient's lab results. 04/08/23 12:29 04/08/23 12:29 Lab Results 04/08/23 04/08/23 04/08/23 Range/Units 12:29 12:29 12:29 WBC 1.82 L (4.8-10.8) K/ul RBC 2.68 L (4.20-5.40) M/uL Hgb 9.7 L (12.0-16.0) g/dl Hct 29.1 L (37.0-47.0) % MCV 108.6 H (80.0-100.0) fL MCH 36.2 H (25.0-34.0) pg MCHC 33.3 (32.0-36.0) g/dL RDW Std Deviation 58.4 H (36.4-46.3) fL RDW Coeff of Rodrigo 14.6 H (11.5-14.5) % Plt Count 123 L (130-400) K/uL MPV 10.0 (9.4-12.4) fL Immature Gran % (Auto) 6.0 % Neut % (Auto) 67.6 % Lymph % (Auto) 15.4 % [place] % (Auto) 8.8 % Eos % (Auto) 1.1 % Baso % (Auto) 1.1 % Neut # (Auto) 1.23 L (1.40-6.50) K/uL Lymph # (Auto) 0.28 L (1.2-3.4) K/uL [place] # (Auto) 0.16 (0.11-0.59) K/uL Eos # (Auto) 0.02 (0-0.50) K/uL Baso # (Auto) 0.02 (0-0.2) K/uL Immature Gran # (Auto) 0.11 (0.01-0.20) K/uL Toxic Vacuolation 1+ Dohle Bodies 1+ Tear Drop Cells 1+ Ovalocytes 1+ PT 12.3 H (9.0-12.0) Seconds INR 1.1 (0.9-1.1) APTT 31.9 H (21.0-31.0) Seconds PTT Ratio 1.1 Sodium 139 (136-145) mmol/L Potassium 3.7 (3.5-5.1) mmol/L Chloride 101 (98-107) mmol/L Carbon Dioxide 31 (21-32) mmol/L Anion Gap 7 (3-11) BUN 19 (6-23) mg/dl Creatinine 1.04 (0.6-1.2) mg/dl Est Cr Clr Drug Dosing 56.0 ml/min Est GFR ( Amer) 63.0 ml/min Est GFR (Non-Af Amer) 54.4 ml/min BUN/Creatinine Ratio 18.3 (10-20) Glucose 116 H (70-99(Fasting)) mg/dl Lactate (0.4-2.0) mmol/L Calcium 8.5 L (8.6-10.3) mg/dl Magnesium 1.7 (1.7-2.4) mg/dl Total Bilirubin 1.1 H (0.2-1.0) mg/dl Direct Bilirubin 0.2 (0-0.2) mg/dl AST 10 L (13-39) U/L ALT 8 (7-52) U/L Alkaline Phosphatase 94 (34-104) U/L Troponin I High Sens 14.5 H (0-14) pg/ml Total Protein 6.1 (6.0-8.3) gm/dl Albumin 3.5 (3.4-5.0) gm/dl Procalcitonin (0-0.5) ng/ml Urine Color Urine Appearance (Clear) Urine pH (4.5-7.5) Ur Specific [place] (1.000-1.030) Urine Protein (Negative) Urine Glucose (UA) (Negative) Urine Ketones (Negative) Urine Blood (Negative) Urine Nitrite (Negative) Urine Bilirubin (Negative) Urine Urobilinogen (Negative) Ur Leukocyte Esterase (Negative) 04/08/23 04/08/23 04/08/23 Range/Units 12:29 14:04 Unknown WBC (4.8-10.8) K/ul RBC (4.20-5.40) M/uL Hgb (12.0-16.0) g/dl Hct (37.0-47.0) % MCV (80.0-100.0) fL MCH (25.0-34.0) pg MCHC (32.0-36.0) g/dL RDW Std Deviation (36.4-46.3) fL RDW Coeff of Rodrigo (11.5-14.5) % Plt Count (130-400) K/uL MPV (9.4-12.4) fL Immature Gran % (Auto) % Neut % (Auto) % Lymph % (Auto) % [place] % (Auto) % Eos % (Auto) % Baso % (Auto) % Neut # (Auto) (1.40-6.50) K/uL Lymph # (Auto) (1.2-3.4) K/uL [place] # (Auto) (0.11-0.59) K/uL Eos # (Auto) (0-0.50) K/uL Baso # (Auto) (0-0.2) K/uL Immature Gran # (Auto) (0.01-0.20) K/uL Toxic Vacuolation Dohle Bodies Tear Drop Cells Ovalocytes PT (9.0-12.0) Seconds INR (0.9-1.1) APTT (21.0-31.0) Seconds PTT Ratio Sodium (136-145) mmol/L Potassium (3.5-5.1) mmol/L Chloride (98-107) mmol/L Carbon Dioxide (21-32) mmol/L Anion Gap (3-11) BUN (6-23) mg/dl Creatinine (0.6-1.2) mg/dl Est Cr Clr Drug Dosing ml/min Est GFR ( Amer) ml/min Est GFR (Non-Af Amer) ml/min BUN/Creatinine Ratio (10-20) Glucose (70-99(Fasting)) mg/dl Lactate 0.9 (0.4-2.0) mmol/L Calcium (8.6-10.3) mg/dl Magnesium (1.7-2.4) mg/dl Total Bilirubin (0.2-1.0) mg/dl Direct Bilirubin (0-0.2) mg/dl AST (13-39) U/L ALT (7-52) U/L Alkaline Phosphatase (34-104) U/L Troponin I High Sens (0-14) pg/ml Total Protein (6.0-8.3) gm/dl Albumin (3.4-5.0) gm/dl Procalcitonin 0.20 (0-0.5) ng/ml Urine Color Yellow Urine Appearance Clear (Clear) Urine pH 6.0 (4.5-7.5) Ur Specific [place] 1.011 (1.000-1.030) Urine Protein Negative (Negative) Urine Glucose (UA) Negative (Negative) Urine Ketones Negative (Negative) Urine Blood Negative (Negative) Urine Nitrite Negative (Negative) Urine Bilirubin Negative (Negative) Urine Urobilinogen Negative (Negative) Ur Leukocyte Esterase Negative (Negative) Imaging Data Attestation: I personally reviewed and interpreted this imaging study as follow s: My Impression: Chest x-rayno acute infiltrate, failure, pneumothorax seen Radiologist's Impression: Chest X-Ray 04/08/23 12:55 XR chest 1V portable CLINICAL HISTORY: Sepsis TECHNIQUE: Single frontal radiograph of the chest was obtained. Comparison: Comparison is made to chest radiograph 01/08/2023 FINDINGS: A port catheter is seen. The cardiomediastinal silhouette is normal. The lungs are clear. No evidence of pleural effusion or pneumothorax. IMPRESSION: No acute chest disease. ACT 112: Negative or not required by law. Electronically signed by: Isra Wise M.D. 04/08/2023 1:11 PM Venous Doppler Study 04/08/23 12:56 US venous doppler LE CLINICAL HISTORY: eval for DVT TECHNIQUE: Left lower extremity real-time compression venous ultrasound with Color Doppler imaging. Utilizing real-time ultrasonic imaging multiple real time high-resolution ultrasonic images with compression and noncompression maneuvers of the deep venous system in addition to color doppler imaging were performed from the common femoral vein through the proximal calf veins. COMPARISON: Comparison is made to CT abdomen pelvis 02/11/2023 FINDINGS/IMPRESSION: Currently there is normal compressibility of the deep venous system from the common femoral vein through the proximal calf veins. Exam is limited by inability to compress vessels due to patient pain, there is a complex collection in the left groin measuring 10.1 x 5.1 x 7.6 cm which was seen on prior exams. ACT 112: Negative or not required by law. Electronically signed by: Isra Wise M.D. 04/08/2023 4:03 PM ECG Data Attestation: I personally reviewed and interpreted this ECG as follows: Indication: + weakness Rate (beats per minute): 85 Rhythm: + atrial fibrillation ECG Intervals/blocks: + Normal QRS and + Normal QT ECG [place]: + Normal ECG ST segments: + Nonspecific ST abnormalities ECG Findings: no PACs or no PVCs Comparison ECG Date: from (04/08/23) Change: no significant change MDM Narrative This patient comes in as described above she has several complaints the main complaint seems to be the induration and swelling the left thigh. Distally, she has normal perfusion and normal pulses. This could be an infection. It also could be hematoma or abscess or vascular issue. I did order an venous ultrasound of her leg to evaluate for possible DVT and also ordered an ultrasound of this indurated area. She does have an a port that was accessed. EKG was obtained I did not initially give her fluid as she was afebrile and normotensive and has a history of CHF so I do not want to fluid overload her. I did give her cefepime 2 g IV to cover the possibility of sepsis/infection. Her white count is low consistent with recent chemo she is not neutropenic. Hemoglobin and platelets are also low consistent with pancytopenia likely related to her chemo she has no significant lecture light or metabolic abnormalities. Urinalysis does not suggest a UTI. Chest x-ray was unremarkable. EKG does not suggest cardiac disease. Ultrasound shows a large fluid collection. It apparently was present back in January. I think she likely has a cellulitis with an underlying secondary hematoma and/or abscess. She may have bled into it given the fact that she is on a blood thinner and caused her to be more irritated. Her inflammatory markers are not severely elevated however she is potentially immunocompromise given the fact that she is pancytopenic. She does receive IV antibiotics. Her lactic acid is not elevated I did not treat her with fluid boluses given her CHF history as well. I do think she needs to be admitted for further treatment evaluation of discussed the case at length with Dr. 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, Non Hodgkin's lymphoma, Pancytopenia Discharge Plan Visit Data Chief Complaint: Edema To Extremity Stated Complaint: UPPER INNER THIGH SWOLLEN AND HOT TO TOUCH ED Provider: Freddy Gandhi Discharge Problem: Cellulitis, Hematoma, Current use of senior care anticoagulation, Non Hodgkin's lymphoma, Pancytopenia Forms Stand Alone Forms: My [facility] Prescriptions Prescriptions: No Action atorvastatin [Lipitor] 40 mg tablet 40 mg PO QAM Qty: 90 3RF spironolactone [Aldactone] 25 mg tablet 25 mg PO QAM Qty: 90 3RF diltiazem HCl [Cardizem CD] 120 mg capsule,extended release 24hr 120 mg PO DAILY Qty: 90 3RF pantoprazole 20 mg tablet,delayed release (DR/EC) 20 mg PO BID Qty: 180 3RF bupropion HCl 150 mg tablet extended release 24 hr 150 mg PO QAM Qty: 90 3RF Eliquis 5 mg tablet 5 mg PO BID Qty: 180 3RF cholecalciferol (vitamin D3) [Vitamin D3] 25 mcg (1,000 unit) capsule 2,000 unit PO QAM allopurinol 300 mg tablet 300 mg PO QAM furosemide [Lasix] 40 mg tablet 40 mg PO DAILY Qty: 180 3RF Rx Instructions: Increase to 80 mg daily for weight gain, swelling, SOB. metoprolol tartrate 50 mg tablet 50 mg PO BID Qty: 180 3RF oxycodone-acetaminophen [Percocet] 5-325 mg tablet 1 tab PO Q6H PRN (Reason: pain) Qty: 10 0RF nystatin [Nystop] 100,000 unit/gram powder 1 applic topical HS PRN (Reason: fungal site) sennosides-docusate sodium [Senokot-S] 8.6-50 mg tablet 1 - 2 tab-cap PO BID PRN (Reason: constipation) Qty: 60 2RF digoxin [Digitek] 125 mcg (0.125 mg) tablet 0.125 mg PO DAILY Referrals Referrals: Christopher Guevara MD [Primary Care Provider] -
--- NOTE | 2023-04-08 13:12 | XRay Report ---
XR chest 1V portable CLINICAL HISTORY: Sepsis TECHNIQUE: Single frontal radiograph of the chest was obtained. Comparison: Comparison is made to chest radiograph 01/08/2023 FINDINGS: A port catheter is seen. The cardiomediastinal silhouette is normal. The lungs are clear. No evidence of pleural effusion or pneumothorax. IMPRESSION: No acute chest disease. ACT 112: Negative or not required by law. Electronically signed by: Isra Wise M.D. 04/08/2023 1:11 PM
[2023-04-08 13:47] LABS: Albumin Level 3.5 gm/dl (3.4-5.0); BUN Creatinine Ratio 18.3 (10-20); Bilirubin Direct 0.2 mg/dl (0-0.2); Bilirubin,Total 1.1 mg/dl (0.2-1.0); Calcium 8.5 mg/dl (8.6-10.3); Est GFR (Non-African American) 54.4 ml/min; Magnesium 1.7 mg/dl (1.7-2.4); Potassium 3.7 mmol/L (3.5-5.1); Total Protein 6.1 gm/dl (6.0-8.3)
[2023-04-08 13:48] LABS: Troponin I High Sensitivity 14.5 pg/ml (0-14)
[2023-04-08 13:51] LABS: INR 1.1 (0.9-1.1); Partial Thromboplastin Ratio 1.1; Partial Thromboplastin Time 31.9 Seconds (21.0-31.0); Prothrombin Time 12.3 Seconds (9.0-12.0)
[2023-04-08 14:11] LABS: Basophils # (auto) 0.02 K/uL (0-0.2); Basophils % (auto) 1.1 %; Dohle Bodies 1+; Eosinophils # (auto) 0.02 K/uL (0-0.50); Eosinophils % (auto) 1.1 %; Hematocrit (blood only) 29.1 % (37.0-47.0); Hemoglobin 9.7 g/dl (12.0-16.0); Immature Granulocytes # (auto) 0.11 K/uL (0.01-0.20); Lymphocytes # (auto) 0.28 K/uL (1.2-3.4); Lymphocytes % (auto) 15.4 %; Mean Corpuscular Hemoglobin 36.2 pg (25.0-34.0); Mean Corpuscular Hgb Conc 33.3 g/dL (32.0-36.0); Mean Corpuscular Volume 108.6 fL (80.0-100.0); Monocytes # (auto) 0.16 K/uL (0.11-0.59); Monocytes % (auto) 8.8 %; Neutrophils # (auto) 1.23 K/uL (1.40-6.50); Neutrophils % (auto) 67.6 %; Ovalocytes 1+; Platelet Count 123 K/uL (130-400); RDW Coefficient of Variation 14.6 % (11.5-14.5); RDW Standard Deviation 58.4 fL (36.4-46.3); Red Blood Count 2.68 M/uL (4.20-5.40); Tear Drop Cells 1+; Toxic Vacuolation 1+; White Blood Count 1.82 K/ul (4.8-10.8)
[2023-04-08] MEDS ORDERED: ONDANSETRON INJ 2 MG/ML 2 ML VIAL IV STA (15:22)
[2023-04-08] MEDS ORDERED: MoRPHine SULFATE 2 MG/ML CARP IV STA (15:22)
--- NOTE | 2023-04-08 16:04 | Ultrasound Report ---
US venous doppler LE LT CLINICAL HISTORY: eval for DVT TECHNIQUE: Left lower extremity real-time compression venous ultrasound with Color Doppler imaging. U tilizing real-time ultrasonic imaging multiple real time high-resolution ultrasonic images with compr ession and noncompression maneuvers of the deep venous system in addition to color doppler imaging we re performed from the common femoral vein through the proximal calf veins. COMPARISON: Comparison is made to CT abdomen pelvis 02/11/2023 FINDINGS/IMPRESSION: Currently there is normal compressibility of the deep venous system from the common femoral vein thro ugh the proximal calf veins. Exam is limited by inability to compress vessels due to patient pain, t here is a complex collection in the left groin measuring 10.1 x 5.1 x 7.6 cm which was seen on prior exams. ACT 112: Negative or not required by law. Electronically signed by: Isra Wise M.D. 04/08/2023 4:03 PM
[2023-04-08 16:27] LABS: Appearance Urine Clear (Clear); Bilirubin Urine Negative (Negative); Blood Urine Negative (Negative); Color Urine Yellow; Glucose Urine UA Negative (Negative); Ketones Urine Negative (Negative); Leukocyte Esterase Urine Negative (Negative); Nitrite Urine Negative (Negative); Protein Urine Negative (Negative); Specific Gravity Urine 1.011 (1.000-1.030); Urobilinogen Urine Negative (Negative)
--- NOTE | 2023-04-08 18:04 | History & Physical Report ---
Date of Service April 08, 2023 Assessment & Plan (1) Cellulitis: Plan: Cefepime given in ER. Due to immunocompromised state will also cover for MRSA with vancomycin. Follow up blood cultures (2) Groin fluid collection: Plan: Noted prior CT guided biopsy of left inguinal lymph node 10/2022 then with left inguinal lymph node excision 12/2022 Fluid collection appears to have first been seen on CT on 12/22/2022 therefore suspect post operative seroma/hematoma from excision above. 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 Monitor with CBC in AM (5) Atrial fibrillation with rapid ventricular response: Plan: Last took Eliquis this morning - will hold further doses pending surgical decision regarding fluid collection. Continue rate control wiht metoprolol, digoxin and diltiazem (6) Generalized abdominal pain: Plan: History of raudel en Y - will start on GI prophylaxis with femotidine 20mg IV daily although no specific heartburn or acid reflux symptoms she is high risk of this Continue PPI (7) Cirrhosis: Plan: Spironolactone/Lasix on hold. Monitor for ascites on IV fluids. Plan VTE Prophyalis - Eliquis on hold Diet - NPO Disposition - admit to med/tele Admission and Anticipated Discharge Date Admission Date: April 09, 2023 History of Present Illness Chief Complaint: Left leg pain and swelling Primary Care Provider: Christopher Guevara MD Tea Dawkins is a 72 year old female with history of raudel-en Y and B cell lymphoma who presents to the ER with left leg pain and swelling. No fever or chills. Left leg pain and swelling getting worse over the last 2-3 days. Associated diarrhea and decreased appetite, abdominal pain after eating. No dysphagia, odynophagia, watery stool, melena or hematochezia. Currently on R- CHOP for B cell lymphoma with last chemotherapy on Saturday. Leg erythema and swelling is over site of previous fluid collection that has been there since December after left inguinal excision removal but has been getting larger since then. Never been infected previously and erythema and swelling never been there before. Allergies Allergy/AdvReac Type Severity Reaction Status Date / Time No Known Allergies Allergy Verified 04/08/23 14:46 Home Medications Medication Instructions Recorded Confirmed Type nystatin 100,000 unit/gram topical 1 applic topical HS PRN fungal site 06/24/22 04/08/23 History powder (Nystop) atorvastatin 40 mg tablet (Lipitor) 40 mg PO QAM #90 tabs 07/06/22 04/08/23 Rx spironolactone 25 mg tablet 25 mg PO QAM #90 tabs 08/21/22 04/08/23 Rx (Aldactone) allopurinol 300 mg tablet 300 mg PO QAM 12/04/22 04/08/23 History oxycodone-acetaminophen 5 mg-325 1 tab PO Q6H PRN pain #10 tabs 12/20/22 04/08/23 Rx mg tablet (Percocet) diltiazem HCl 120 mg 120 mg PO DAILY #90 caps 01/22/23 04/08/23 Rx capsule,extended release 24 hr (Cardizem CD) pantoprazole 20 mg tablet,delayed 20 mg PO BID #180 tabs 01/22/23 04/08/23 Rx release bupropion HCl 150 mg 24 hr tablet, 150 mg PO QAM #90 tabs 01/29/23 04/08/23 Rx extended release apixaban 5 mg tablet (Eliquis) 5 mg PO BID #180 tabs 02/05/23 04/08/23 Rx digoxin 125 mcg (0.125 mg) tablet 0.125 mg PO DAILY 02/11/23 04/08/23 History (Digitek) sennosides 8.6 mg-docusate sodium 1 - 2 tab-cap PO BID PRN 02/11/23 04/08/23 Rx 50 mg tablet (Senokot-S) constipation #60 tabs cholecalciferol (vitamin D3) 25 2,000 unit PO QAM 02/19/23 04/08/23 History mcg (1,000 unit) capsule (Vitamin D3) metoprolol tartrate 50 mg tablet 50 mg PO BID #180 tabs 02/19/23 04/08/23 Rx furosemide 40 mg tablet (Lasix) 40 mg PO DAILY weight gain #180 03/18/23 04/08/23 Rx tabs Past Med/Surg History Medical History (HFpEF) heart failure with preserved ejection fraction Abdominal discomfort, epigastric Acute blood loss anemia Anticoagulant long-term use B-cell lymphoma NEW DX B12 deficiency Carcinoid tumor PET SCAN AT [facility]> "PLANS TO TREAT FOR B CELL LYMPHOMA SHOULD TREAT CARCINOID TUMOR" Cardiac murmur Mild MR and TR per 10/2022 ECHO Chronic diastolic congestive heart failure Chronic diastolic congestive heart failure Chronic pain of inguinal region Cirrhosis Cirrhosis CKD (chronic kidney disease), stage III Current use of halfway anticoagulation Depression Dissection of vertebral artery pt unsure/unaware Dysuria Fatigue GERD (gastroesophageal reflux disease) GERD (gastroesophageal reflux disease) History of anemia IRON INFUSIONS IN PAST History of COVID-19 07/2022>RESOLVED History of skin cancer Hx of pancreatitis Hyperlipemia Hypertension Hypertension Iron deficiency Kidney stones CURRENT BUT NO CAUSES NO PROBLEM Lesion of ureter biopsy 12/29/2020 Liver cirrhosis secondary to [place] Lymphoma Mesenteric mass recent PET scan --- RECENT B CELL LYMPHOMA CONFIRMED Morbid obesity Nausea and vomiting Pancytopenia Permanent atrial fibrillation PFO (patent foramen ovale) Suspected per records Prediabetes Sleep apnea NO DEVICE SOB (shortness of breath) on exertion TIA (transient ischemic attack) 2018- [place] - no residual -NO ISSUES SINCE Surgical History H/O: hysterectomy History of bone marrow biopsy History of bowel resection WITH COLOSTOMY R/T SBO History of cardiac radiofrequency ablation D/T AFIB - PT REPORTS HAD 1 BUT MAYBE 2 - NOT SURE DATES ([place]) History of cardioversion multiple History of colonoscopy (05/2022) History of colostomy r/t bowel blockage History of colostomy reversal History of cystoscopy History of esophagogastroduodenoscopy (EGD) History of gastric bypass History of tubal ligation History of umbilical hernia repair Hx of abdominal surgery FOR REMOVAL OF CYST - PT NOT SURE TYPE Hx of cholecystectomy Hx of laparoscopy Hx of lymph node biopsy Hx of removal of cyst Port-A-Cath in place (12/10/22) Access port placement and use of fluoroscopy. Dr. Leger S/P ureteral stent placement Family History Grandmother Diabetes Hypertension Mother Heart disease Hypertension Grandfather Stomach cancer Hypertension Father Pancreatic cancer Hypertension Other No family history of adverse response to anesthesia Denies family history of Ovarian cancer Breast cancer Colorectal cancer Social History Smoking Status: Former smoker Tobacco Type: Cigarettes Second Hand Exposure: No; Do You Dip or Chew Tobacco: No; Hx Alcohol Use: No Hx Substance Use: No Preferred Language: Mongolian Communication Ability: Effective Visual Impairment: No Limitations Hearing Ability: Normal Porcelain Slusher Required: No Beliefs That Will Affect Care: None marital status: Current Living Situation: Spouse Current Living Situation Comment: home with 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 status: retired 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) How many Children do You have: 1 Other 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 Helps Us Care for You: No other: [employer] Feels Safe at Home: Yes Safety Concerns: Feels Safe At This Time Diet: regular caffeine: No Dental Care, Regularly: Yes Physical Activity Frequency: Does not Exercise Seatbelt Use: always Sunscreen Use: No Assistive Devices: None Review of Systems Review of Systems: All systems reviewed & are unremarkable except as noted in HPI & below Physical Exam Constitutional: WD/WN, vitals as above Eyes: + anicteric sclerae; normal pupil size Neck: trachea midline, no thyromegaly Respiratory: normal respiratory effort, lungs clear to auscultation Cardiovascular: Rate/Rhythm: regular rate and + irregularly irregular Heart Sounds: + murmur Extremities: normal capillary refill and + pedal edema (1+ equal b/l pitting); no calf tenderness Gastrointestinal (Abdomen): Inspection/Auscultation: abdomen normal to inspection; abdomen not distended Percussion/Palpation: + abdomen tender (generalized without rebound) and abdomen soft; no guarding and abdomen not rigid Musculoskeletal: no cyanosis or clubbing, extremities motor strength 5/5 Skin: Erythema and swelling over anterior medial left thigh from groin to knee Neurologic: moves all extremities and awake; not confused Psychiatric: A+Ox3, euthymic affect Genitourinary: no CVA tenderness Results & Data Results & Data Vital Signs (Past 12 Hours) Vital Signs Temp Pulse Pulse Resp BP BP Pulse Ox 04/08/23 17:32 104 H 04/08/23 16:05 97 04/08/23 16:03 86 20 153/83 H 97 04/08/23 14:31 84 24 122/61 94 04/08/23 14:13 98 H 21 163/74 H 97 04/08/23 13:32 86 04/08/23 12:14 36.5 C 87 20 133/72 97 O2 Del Method 04/08/23 17:32 04/08/23 16:05 Room Air 04/08/23 16:03 Room Air 04/08/23 14:31 04/08/23 14:13 04/08/23 13:32 04/08/23 12:14 Room Air Diagnostic Findings XR chest 1V portable CLINICAL HISTORY: Sepsis TECHNIQUE: Single frontal radiograph of the chest was obtained. Comparison: Comparison is made to chest radiograph 01/08/2023 FINDINGS: A port catheter is seen. The cardiomediastinal silhouette is normal. The lungs are clear. No evidence of pleural effusion or pneumothorax. IMPRESSION: No acute chest disease. US venous doppler LE LT CLINICAL HISTORY: eval for DVT TECHNIQUE: Left lower extremity real-time compression venous ultrasound with Color Doppler imaging. Utilizing real-time ultrasonic imaging multiple real time high-resolution ultrasonic images with compression and noncompression maneuvers of the deep venous system in addition to color doppler imaging were performed from the common femoral vein through the proximal calf veins. COMPARISON: Comparison is made to CT abdomen pelvis 02/11/2023 FINDINGS/IMPRESSION: Currently there is normal compressibility of the deep venous system from the common femoral vein through the proximal calf veins. Exam is limited by inability to compress vessels due to patient pain, there is a complex collection in the left groin measuring 10.1 x 5.1 x 7.6 cm which was seen on prior exams. Medications Administered ER Medications Given: Cefepime 2g IV Morphine 2mg IV Ondansetron 4mg IV ECG Rate (beats per minute): 88 Rhythm: atrial fibrillation Findings: + other (T wave flattening in lateral leads) Comparison ECG Date: from (Jan 28, 2023) Change: no significant change Code Status & VTE Plan Code Status Full VTE Prophylaxis Plan VTE Prophylaxis will be ordered: No PG Care Time/CCT Total # of Minutes Spent Total Time Spent with Patient: Total time spent is greater than 50% in coordination of care (as documented) at patient's floor/unit and/or counseling patient: Coding Level of Care Code 97152 INT INP/OBS CARE MIN Diagnoses Cellulitis L03.114 Laterality: left Site of cellulitis: extremity Site of cellulitis of extremity: upper extremity Groin fluid collection R18.8 Non Hodgkin's lymphoma C85.90 Non-Hodgkin lymphoma type: unspecified type Pancytopenia due to antineoplastic chemotherapy D61.810; T45.1X5A Atrial fibrillation with rapid ventricular response I48.91 Generalized abdominal pain R10.84 Cirrhosis K74.60 (1) Cellulitis Laterality: left Site of cellulitis: extremity Site of cellulitis of extremity: upper extremity Qualified Code(s): L03.114 - Cellulitis of left upper limb (3) Non Hodgkin's lymphoma Non-Hodgkin lymphoma type: unspecified type
[2023-04-08] MEDS ORDERED: VANCOMYCIN CONSULT ACTIVE PRN (18:28)
[2023-04-08] MEDS ORDERED: VANCOMYCIN HCL 2,000 MG in SODIUM CHLORIDE 0.9% 500 ML IV ONE (19:15)
[2023-04-08] MEDS ORDERED: FAMOTIDINE 20 MG in SYRINGE 3 ML IV STA (19:30)
[2023-04-08] MEDS ORDERED: OPTIRAY 320 100ml IV ONE (19:41)
--- NOTE | 2023-04-08 19:49 | Surgery Consultation ---
Date of Consultation April 08, 2023 Assessment & Plan (1) Groin fluid collection: The patient is being admitted on the hospitalist service. From a surgical perspective we recommend proceeding as follows: Antibiotics in the form of cefepime and vancomycin have been initiated.The patient has had blood cultures obtained today which are pending. Would recommend continuing broad-spectrum antibiotics until further culture data is available. As noted, the patient had a pansensitive E. coli urinary tract infection at the end of March of this year. This raises the concern of whether patient may have seeded this fluid collection from urinary tract infection. The selected antibiotics should be effective against the strain of E. coli if this is what caused the infection. Serial labs should be followed IV fluids for hydration should be provided Admitting service has ordered additional imaging including a CT scan of the abdomen and pelvis as well as a CT scan of the left leg for further evaluation of this fluid collection. We will check on these results once available (see below) Would recommend holding patient's Eliquis if clinically feasible Would recommend making the patient n.p.o. after midnight. Patient will be reevaluated in the morning, assessing her clinical response to her antibiotics and intravenous fluids. Upon reassessment a determination will be made if patient will require incision and drainage of her left groin. As noted the patient had a CT scan of the abdomen pelvis along with a CT scan of the left femur that was pending at the time of my initial encounter with the patient. The CT scan of the femur shows the patient has a fluid collection noted from previous studies measuring approximately 13 x 6 x 6.5 cm. There is no gas noted in the soft tissue but the fluid collection was noted to be thick walled with inflammatory changes noted. This fluid collection was also noted on the abdominal CT scan with the surrounding inflammation of the fluid collection noted to be increased from previous studies. On the abdominal portion of the CT scan there is no sign of small bowel obstruction or other infectious or inflammatory processes. I discussed the above plan with my attending physician as well as the attending hospitalist attending to the patient. Supervising Physician Co-Signing Physician Notes I personally saw and evaluated the patient with Aidan Javier PA-C and agree with the assessment and plan. 72-year-old female with left groin abscess versus seroma versus lymphocele status post open left inguinal lymph node biopsy December [address] images and results were personally viewed by myself, she does have some inflammation throughout the skin however unsure if this is lymph versus purulence She is being admitted to the medical service and her Eliquis is being held We will see how she progresses and see if I&D versus percutaneous drainage is indicated History of Present Illness Reason for Consultation: Left groin fluid collection History of Present Illness This is a 72-year-old female who presented to the emergency department at [facility] secondary to redness and swelling of her left thigh. This patient has a past medical history significant for B-cell lymphoma. The patient notes that she believes that this was diagnosed in November 2022. The patient notes that she required a left groin lymph node biopsy to obtain this diagnosis. She notes this surgery was performed in an open fashion and performed performed at [facility]. The patient has been undergoing R-CHOP therapy which was initiated on 12/11/2022. She does note that her most recent chemotherapy session was approximately 1 week ago on April 01, 2023. The patient notes that she is now in the process of scheduling another PET scan which will determine the next course of action concerning her lymphoma. The patient notes that since she had this lymph node biopsy she developed a fluid collection in the left groin at the site of her surgery. Imaging which describes this fluid collection is listed below. Patient did present to the hospital today because she notes that for approximate the past 3 days she notes that the left fluid collection in her groin has become more swollen, red, and painful. She specifically denies any fevers, shakes, or chills. She also denies any nausea or vomiting. She denies any sore throat or cough. She denies any dysuria. She denies any pain at her port site which is in the right subclavian position. Patient does report she has intermittent diarrhea and some abdominal painthe patient notes that both of these issues have been ongoing for several months. Concerning her abdominal pain, she does note it is primarily located on the left side of her abdomen without radiation or additional modifying factors. It is noteworthy to mention that although the patient does deny dysuria she was recently treated for urinary tract infection. A urine culture from 03/24/2023 did grow E. coli which was noted to be pansensitive. Patient reports that she did take antibiotics for approximately 5 days. The patient also adds that she does take Eliquis for history of atrial fibrillation and her most recent dose was this morning (04/08/2023) her most recent oral intake was 1.5 hours ago where she took a few bites of rice and chicken while she was in the emergency department awaiting her bed assignment. Patient's previous diagnostic imaging was reviewed and the patient did have a CT scan on 01/28/2023 that showed a lobulated fluid collections within the left groin. The interpreting radiologist felt that these favored seromas. These fluid collections were also noted on a CT scan of the abdomen pelvis on 01/08/2023 and also 12/22/2022. In addition, the patient's most recent PET scan was reviewed which was on 01/30/2023. On this study the patient was noted to have a left groin/proximal medial thigh hyperdense fluid collection which was suggestive of a seroma. Since arrival to the hospital today the patient has had a venous Doppler study. On this study the patient was not noted to have any DVT but there was a complex fluid collection in the left groin measuring 10.1 x 5.1 x 7.6 cm. In addition, the patient has had labs were patient's white blood cell count was 1.8. Her hemoglobin and hematocrit were 9.7 and 29.1. Platelet count was 123,000. The patient's neutrophil count was noted to be 1.23. Coagulation studies revealed an INR of 1.1. Her PTT was 31.9. Chemistry profile showed sodium, potassium, BUN, and creatinine were all within normal range. Lactic acid level was checked and was nonelevated at 0.9. Procalcitonin was not elevated at point. A urinalysis was performed and was not indicative of infection. A COVID test was also noted to be negative. At the time of my interview the patient was resting comfortably in bed and she was in no distress. Allergies Allergy/AdvReac Type Severity Reaction Status Date / Time No Known Allergies Allergy Verified 04/08/23 14:46 Home Medications Medication Instructions Recorded Confirmed Type nystatin 100,000 unit/gram topical 1 applic topical HS PRN fungal site 06/24/22 04/08/23 History powder (Nystop) atorvastatin 40 mg tablet (Lipitor) 40 mg PO QAM #90 tabs 07/06/22 04/08/23 Rx spironolactone 25 mg tablet 25 mg PO QAM #90 tabs 08/21/22 04/08/23 Rx (Aldactone) allopurinol 300 mg tablet 300 mg PO QAM 12/04/22 04/08/23 History oxycodone-acetaminophen 5 mg-325 1 tab PO Q6H PRN pain #10 tabs 12/20/22 04/08/23 Rx mg tablet (Percocet) diltiazem HCl 120 mg 120 mg PO DAILY #90 caps 01/22/23 04/08/23 Rx capsule,extended release 24 hr (Cardizem CD) pantoprazole 20 mg tablet,delayed 20 mg PO BID #180 tabs 01/22/23 04/08/23 Rx release bupropion HCl 150 mg 24 hr tablet, 150 mg PO QAM #90 tabs 01/29/23 04/08/23 Rx extended release apixaban 5 mg tablet (Eliquis) 5 mg PO BID #180 tabs 02/05/23 04/08/23 Rx digoxin 125 mcg (0.125 mg) tablet 0.125 mg PO DAILY 02/11/23 04/08/23 History (Digitek) sennosides 8.6 mg-docusate sodium 1 - 2 tab-cap PO BID PRN 02/11/23 04/08/23 Rx 50 mg tablet (Senokot-S) constipation #60 tabs cholecalciferol (vitamin D3) 25 2,000 unit PO QAM 02/19/23 04/08/23 History mcg (1,000 unit) capsule (Vitamin D3) metoprolol tartrate 50 mg tablet 50 mg PO BID #180 tabs 02/19/23 04/08/23 Rx furosemide 40 mg tablet (Lasix) 40 mg PO DAILY weight gain #180 03/18/23 04/08/23 Rx tabs Patient History Medical History (HFpEF) heart failure with preserved ejection fraction Abdominal discomfort, epigastric Acute blood loss anemia Anticoagulant long-term use B-cell lymphoma NEW DX B12 deficiency Carcinoid tumor PET SCAN AT [facility]> "PLANS TO TREAT FOR B CELL LYMPHOMA SHOULD TREAT CARCINOID TUMOR" Cardiac murmur Mild MR and TR per 10/2022 ECHO Chronic diastolic congestive heart failure Chronic diastolic congestive heart failure Chronic pain of inguinal region Cirrhosis Cirrhosis CKD (chronic kidney disease), stage III Current use of [facility] anticoagulation Depression Dissection of vertebral artery pt unsure/unaware Dysuria Fatigue GERD (gastroesophageal reflux disease) GERD (gastroesophageal reflux disease) History of anemia IRON INFUSIONS IN PAST History of COVID-19 07/2022>RESOLVED History of skin cancer Hx of pancreatitis Hyperlipemia Hypertension Hypertension Iron deficiency Kidney stones CURRENT BUT NO CAUSES NO PROBLEM Lesion of ureter biopsy 12/29/2020 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 recent PET scan --- RECENT B CELL LYMPHOMA CONFIRMED Morbid obesity Nausea and vomiting Pancytopenia Permanent atrial fibrillation PFO (patent foramen ovale) Suspected per records Prediabetes Sleep apnea NO DEVICE SOB (shortness of breath) on exertion TIA (transient ischemic attack) 2018- [place] - no residual -NO ISSUES SINCE Surgical History H/O: hysterectomy History of bone marrow biopsy History of bowel resection WITH COLOSTOMY R/T SBO History of cardiac radiofrequency ablation D/T AFIB - PT REPORTS HAD 1 BUT MAYBE 2 - NOT SURE DATES ([place]) History of cardioversion multiple History of colonoscopy (05/2022) History of colostomy r/t bowel blockage History of colostomy reversal History of cystoscopy History of esophagogastroduodenoscopy (EGD) History of gastric bypass History of tubal ligation History of umbilical hernia repair Hx of abdominal surgery FOR REMOVAL OF CYST - PT NOT SURE TYPE Hx of cholecystectomy Hx of laparoscopy Hx of lymph node biopsy Hx of removal of cyst Port-A-Cath in place (12/10/22) Access port placement and use of fluoroscopy. Dr. Leger S/P ureteral stent placement Family History Grandmother Diabetes Hypertension Mother Heart disease Hypertension Grandfather Stomach cancer Hypertension Father Pancreatic cancer Hypertension Other No family history of adverse response to anesthesia Denies family history of Ovarian cancer Breast cancer Colorectal cancer Social History Smoking Status: Former smoker Tobacco Type: Cigarettes Second Hand Exposure: No; Do You Dip or Chew Tobacco: No; Hx Alcohol Use: No Hx Substance Use: No Preferred Language: Kiswahili Communication Ability: Effective Visual Impairment: No Limitations Hearing Ability: Normal Microbiology Lab Assistant Required: No Beliefs That Will Affect Care: None marital status: Current Living Situation: Spouse Current Living Situation Comment: home with 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 status: retired 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) How many Children do You have: 1 Other 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 Helps Us Care for You: No other: [employer] Feels Safe at Home: Yes Safety Concerns: Feels Safe At This Time Diet: regular caffeine: No Dental Care, Regularly: Yes Physical Activity Frequency: Does not Exercise Seatbelt Use: always Sunscreen Use: No Assistive Devices: None Review of Systems Constitutional: no fever and no chills Eyes: no eye pain Ear, Nose, Mouth, Throat: no hearing loss and no sore throat Respiratory: no cough and no dyspnea Cardiovascular: no chest pain Gastrointestinal: + abdominal pain and + diarrhea/loose stools; no nausea and no vomiting Genitourinary: no dysuria Musculoskeletal: + back pain (Chronic) Integumentary: no rash Neurologic: no localized weakness Physical Exam Constitutional: WD/WN, vitals as above Eyes: no conjunctival abnormality ENMT: Ears: no hearing impairment and no external ear abnormality Mouth: no oropharynx abnormality No signs of pharyngeal erythema or oral mucositis Neck: trachea midline No nuchal rigidity noted Respiratory: normal respiratory effort, lungs clear to auscultation Cardiovascular: Rate/Rhythm: regular rate, regular rhythm and + tachycardic Vessels: dorsalis pedis pulses present and radial pulses present Gastrointestinal (Abdomen): Abdomen is rotund and soft. It is nondistended. There is some generalized tenderness with palpation but there is no rebound tenderness or guarding. Musculoskeletal: Feet are warm and well-perfused. The patient's left groin was examined. When compared to her right groin there is a greater degree of warmth. There is also swelling noted in the left groin about the size of a baseball. There is a small amount of overlying erythema. There is no open areas or areas of drainage. There is no crepitus noted in the soft tissue. I do not appreciate any lymphatic streaking. The area was painful to palpation. Skin: no rashes Neurologic: moves all extremities Psychiatric: A+Ox3, euthymic affect Results & Data Vital Signs (Past 12 Hours) Vital Signs Temp Pulse Pulse Resp BP BP Pulse Ox 04/08/23 19:01 148/110 H 04/08/23 19:01 115 H 31 H 95 04/08/23 19:00 118 H 21 86 L 04/08/23 18:30 103 H 28 H 96 04/08/23 18:30 136/61 04/08/23 18:00 122 H 28 H 04/08/23 18:00 137/73 04/08/23 17:58 132/65 04/08/23 17:58 112 H 24 95 04/08/23 17:30 95 H 19 96 04/08/23 17:00 96 H 21 94 04/08/23 16:30 100 H 19 95 04/08/23 16:00 108 H 22 04/08/23 16:00 154/83 H 04/08/23 15:59 104 H 26 H 04/08/23 15:00 90 25 H 04/08/23 15:00 141/95 H 04/08/23 17:32 104 H 04/08/23 16:05 97 04/08/23 16:03 86 20 153/83 H 97 04/08/23 14:31 84 24 122/61 94 04/08/23 14:13 98 H 21 163/74 H 97 04/08/23 13:32 86 04/08/23 12:14 36.5 C 87 20 133/72 97 O2 Del Method 04/08/23 19:01 04/08/23 19:01 04/08/23 19:00 04/08/23 18:30 04/08/23 18:30 04/08/23 18:00 04/08/23 18:00 04/08/23 17:58 04/08/23 17:58 04/08/23 17:30 04/08/23 17:00 04/08/23 16:30 04/08/23 16:00 04/08/23 16:00 04/08/23 15:59 04/08/23 15:00 04/08/23 15:00 04/08/23 17:32 04/08/23 16:05 Room Air 04/08/23 16:03 Room Air 04/08/23 14:31 04/08/23 14:13 04/08/23 13:32 04/08/23 12:14 Room Air PG Care Time/CCT Total # of Minutes Spent Total Time Spent with Patient: Total time spent is greater than 50% in coordination of care (as documented) at patient's floor/unit and/or counseling patient: Coding Level of Care Code 81183 INT INP/OBS CARE MIN Diagnoses Groin fluid collection R18.8
[2023-04-08] MEDS ORDERED: ACETAMINOPHEN 325 MG TAB PO PRN (20:00)
--- NOTE | 2023-04-08 20:56 | CT Scan Report ---
CT SCAN OF THE LEFT FEMUR WITH IV CONTRAST CLINICAL HISTORY: Fluid collection in the left thigh. COMPARISON STUDY: Pelvic CT dated 02/11/2023. TECHNIQUE: Following the IV administration of 86 cc of Optiray 320, CT scan of the left femur was per formed from the bony pelvis to the knee. Images are reviewed in the axial, sagittal, and coronal plan es. Other contrast was administered without complication. A dose lowering technique was utilized adhe ring to the principles of ALARA. CT DOSE: 1612.38 mGy.cm FINDINGS: The skeletal structures are osteopenic. There is no evidence of left femoral fracture. The hip and knee joints appear to be maintained. The visualized left hemipelvis appears intact. No lytic or blastic lesion is seen. There is no bony erosion or periostitis. Soft tissue inflammation is seen in the left upper thigh. There is a thick walled and peripherally enhancing multiloculated fluid lili ection in the anterior thigh. This extends from the level of the lesser trochanter to the mid shaft o f the femur. The fluid collection measures approximately 13 x 6 x 6.5 cm in aggregate dimension. Ther e are adjacent surgical clips. No soft tissue gas is seen. The femoral vessels appear patent. There i s generalized atrophy of the regional musculature. No pathologically enlarged left pelvic sidewall or inguinal lymph nodes are identified. The bladder is normal as visualized. The uterus is surgically a bsent. Superficial venous varicosities are present in the thigh. IMPRESSION: 1. No bony abnormality is seen involving the left femur. 2. There is a thick walled and peripherally enhancing multiloculated fluid collection within the ante rior left upper thigh with significant surrounding inflammation as detailed above. The fluid collecti on was present on 02/11/2023. Inflammatory change in the upper thigh around this collection is signifi cantly increased from previous. The sterility of this fluid cannot be assessed by imaging, and super imposed infection is not excluded. Correlate clinically. ACT 112: Negative or not required by law. Dictated: 04/08/2023 7:47 PM Transcribed: 04/08/2023 8:15 PM David [id number] Boogie [id number] Electronically signed by: Norberto Martinez M.D. 04/08/2023 8:55 PM
--- NOTE | 2023-04-08 20:58 | CT Scan Report ---
CT SCAN OF THE ABDOMEN AND PELVIS WITH IV CONTRAST CLINICAL HISTORY: Generalized abdominal pain. Nausea and vomiting. Reported history of lymphoma. COMPARISON STUDY: Numerous prior abdominal CT scans, most recently dated 02/11/2023. PET/CT dated 01/30. TECHNIQUE: Following the IV administration of 86 cc of Optiray 320, CT scan of the abdomen and pelvi s is performed from the lung bases to the proximal femora. Images are reviewed in the axial, sagittal , and coronal planes. IV contrast was administered without complication. A dose lowering technique wa s utilized adhering to the principles of ALARA. FINDINGS: Lung bases: The heart is enlarged and without pericardial effusion. There is a small right pleural ef fusion with associated atelectasis. No airspace consolidation is seen typical for pneumonia. Liver: The contrast-enhanced liver is normal in size, contour, and attenuation. There is mild intrahe patic biliary ductal dilatation. The hepatic veins and portal veins are patent. Gallbladder: Surgically absent noting clips in the gallbladder fossa. Spleen: Normal in size and attenuation. Pancreas: Atrophic and grossly unremarkable. Adrenal glands: Unremarkable. Kidneys: The contrast enhanced kidneys are atrophic and without hydronephrosis. The kidneys enhance s ymmetrically. Bilateral renal cysts measuring up to 5 cm. Additional subcentimeter cortical hypodensi ties also likely represent cysts but are too small for definitive characterization. A 12 mm nonobstru cting calculus is seen in the left lower pole. Abdominal vasculature: The abdominal aorta is normal in course and caliber noting advanced atheroscle rotic calcification. Stomach and bowel: There is a tiny hiatal hernia. Postsurgical change is consistent with a history of Ngoc-en-Y gastric bypass surgery. Dilatation of the distal anastomosis suggests focal denervation. N o bowel obstruction is seen. There is moderate colonic diverticulosis without CT evidence of acute di verticulitis. The appendix is well-visualized and normal. Peritoneum: There is no intraperitoneal free air or abdominal ascites. Lymphadenopathy: Soft tissue thickening in the central mesentery on image #176 and a 3.2 cm residual right retroperitoneal lesion adjacent to the renal hilum on image #149 likely represent treated disea se. Residual lymphoma is not excluded. Pelvic viscera: The bladder is normal as visualized. The uterus is surgically absent. No adnexal lesi on is seen. A multiloculated fluid collection is again seen in the left groin/upper thigh. Imaged por tions measure up to 7 cm. There is increasing inflammation around this collection as compared to prev ious. See report of left femoral CT performed concurrently for detailed findings. Skeletal structures: The skeletal structures are osteopenic. There is moderate lumbosacral spondylosi s. No lytic or blastic lesions are seen. IMPRESSION: 1. No acute infectious or inflammatory findings are identified in the abdomen or pelvis. 2. Soft tissue thickening in the mesentery and a residual right retroperitoneal lesion are unchanged from 02/11/2023 and likely represent treated disease. Residual lymphoma is not excluded. 3. Cardiomegaly and small right pleural effusion. 4. Left-sided nephrolithiasis. 5. A fluid collection in the left groin/upper thigh is partially visualized. Surrounding inflammation has increased from previous. See report of left femoral CT performed concurrently for detailed findi ngs. 6. Additional findings as above. ACT 112: Negative or not required by law. Electronically signed by: Norberto Martinez M.D. 04/08/2023 8:57 PM
[2023-04-08] MEDS: PANTOprazole 40 MG TAB PO SCH (21:10)
[2023-04-08] MEDS: METOPROLOL TARTRATE 50 MG TAB PO SCH (21:10)
--- NOTE | 2023-04-08 21:34 | Pharmacy Report ---
Pharmacy PK ABX Note - Date of Service April 08, 2023 - Assessment and Plan Assessment 72 year old F receiving CEFEPIME/VANCOMYCIN for treatment of cellulitis/groin fluid collection. Patient with recent chemotherapy for non-Hodgkin's lymphoma, hx of antibiotics in last 90 days: cefdinir. Pertinent microbiologic data includes: remote hx of ESBL E. coli (urine). Blood cultures currently pending Plan Vancomycin * Loading dose: 2000 mg IV x 1 * Maintenance dose: 750 mg IV every 12 hours * Regimen is predicted to achieve target AUC/JULIANNA of 400-600 mg/L.hr * Random level to be ordered if vancomycin continued >48 hrs Pharmacy will continue to follow and will adjust dose/frequency as necessary. Thank you. Pharmacy has transitioned to AUC monitoring for vancomycin. AUC/JULIANNA is the preferred PK/PD target and is associated with decreased risk of nephrotoxicity compared to traditional trough targets.
[2023-04-08] MEDS: LACTATED RINGER'S 1,000 ML IV SCH (23:16)
[2023-04-08] MEDS: MAGNESIUM SULFATE / D5W 1 GM/100 ML BAG IV SCH (23:16)
[2023-04-09] MEDS: CEFEPIME 2,000 MG in SYRINGE 0 ML IV SCH ×3 (01:52→17:52)
[2023-04-09] MEDS: MAGNESIUM SULFATE / D5W 1 GM/100 ML BAG IV SCH (01:56)
[2023-04-09] MEDS ORDERED: HEPARIN 100 UNIT/ML 5ML FLUSH FLUSH PRN (02:38)
[2023-04-09] MEDS ORDERED: CALCIUM CARBONATE 500 MG CHEWABLE TAB PO PRN (03:30)
[2023-04-09] MEDS: VANCOMYCIN HCL 750 MG in SODIUM CHLORIDE 0.9% 250 ML IV SCH ×2 (05:02→17:52)
[2023-04-09] MEDS: LACTATED RINGER'S 1,000 ML IV SCH ×3 (06:16→21:15)
[2023-04-09 07:21] LABS: BUN Creatinine Ratio 16.7 (10-20); Calcium 7.9 mg/dl (8.6-10.3); Creatinine Clr Calc Pharmacy 60.5 ml/min; Est GFR (African American) 69.4 ml/min; Est GFR (Non-African American) 59.9 ml/min; Magnesium 2.3 mg/dl (1.7-2.4); Potassium 3.5 mmol/L (3.5-5.1)
[2023-04-09 07:29] LABS: Partial Thromboplastin Ratio 1.1; Partial Thromboplastin Time 30.5 Seconds (21.0-31.0); Prothrombin Time 11.4 Seconds (9.0-12.0)
[2023-04-09 07:48] LABS: Hematocrit (blood only) 25.6 % (37.0-47.0); Hemoglobin 8.4 g/dl (12.0-16.0); Mean Corpuscular Hemoglobin 36.2 pg (25.0-34.0); Mean Corpuscular Hgb Conc 32.8 g/dL (32.0-36.0); Mean Corpuscular Volume 110.3 fL (80.0-100.0); Mean Platelet Volume 10.1 fL (9.4-12.4); Nucleated RBC # (auto) 0.02 K/uL (0-0.12); Platelet Count 97 K/uL (130-400); Platelet Estimate Decreased (Normal); Polychromasia 1+; RDW Coefficient of Variation 14.6 % (11.5-14.5); RDW Standard Deviation 59.8 fL (36.4-46.3); Red Blood Count 2.32 M/uL (4.20-5.40); Tear Drop Cells 1+; White Blood Count 1.01 K/ul (4.8-10.8)
[2023-04-09 07:50] LABS: Immature Granulocytes % (auto) 12.9 %; Lymphocytes % (auto) 23.8 %; Monocytes % (auto) 16.8 %; Neutrophils % (auto) 44.5 %
[2023-04-09 07:51] LABS: Basophils # (auto) 0.01 K/uL (0-0.2); Eosinophils # (auto) 0.01 K/uL (0-0.50); Immature Granulocytes # (auto) 0.13 K/uL (0.01-0.20); Lymphocytes # (auto) 0.24 K/uL (1.2-3.4); Monocytes # (auto) 0.17 K/uL (0.11-0.59); Neutrophils # (auto) 0.45 K/uL (1.40-6.50)
[2023-04-09] MEDS: allopurinoL 300 MG TAB PO SCH (08:02)
[2023-04-09] MEDS: DIGOXIN 0.125 MG TAB PO SCH (08:03)
[2023-04-09] MEDS: buPROPion XL 150 MG TABCR PO SCH (08:03)
[2023-04-09] MEDS: ATORVASTATIN 40 MG TAB PO SCH (08:03)
[2023-04-09] MEDS: CHOLECALCIFEROL 1,000 UNITS 25 MCG TAB PO SCH (08:03)
[2023-04-09] MEDS: dilTIAZem HCL 120 MG CAPCR PO SCH (08:04)
[2023-04-09] MEDS: PANTOprazole 40 MG TAB PO SCH ×2 (08:04→20:38)
[2023-04-09] MEDS: METOPROLOL TARTRATE 50 MG TAB PO SCH ×2 (08:04→20:33)
--- NOTE | 2023-04-09 08:47 | Hospitalist Progress Note ---
Date of Service April 09, 2023 Assessment & Plan (1) Groin abscess: Plan: Hx left inguinal excision in December, with now area of fluid collection and cellulitis in this area. CTAP and CT L femur note 13 x 6 x 6.5 cm multiloculated fluid collection with surrounding inflammation. Continue vanc/cefepime; BCx pending. General surgery consulted and appreciate recs, currently NPO for hopefully percutaneous drainage of fluid collection. (2) Sepsis due to cellulitis: Plan: With elevated HR and leukopenia on admission, in the setting of immunocompromise and Hx B cell lymphoma. Did not receive bolus IVF on admission due to history of fluid overload and CHF, and patient was hemodynamically stable. Continue IVF LR at 125cc/hr with close monitoring of fluids status. 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 Leukopenia with neutropenia, plts 90s, Hgb 8.5. No evidence of bleeding. Monitor daily. (6) Neutropenia: Plan: Associated with B cell lymphoma, see above. Daily CBC. Neutropenia precautions. (7) Atrial fibrillation with rapid ventricular response: Plan: Last took Eliquis 5/8 AM, continue to hold pending anticipated fluids drainage. Continue metoprolol, diltiazem, digoxin. (8) Generalized abdominal pain: Plan: History of Ngoc-en-Y . Continue PPI. (9) Cirrhosis: Plan: Spironolactone/Lasix on hold in setting of sepsis, monitor closely for fluid overload. Plan VTE Prophylaxis - Eliquis on hold, resume as soon as able Diet - NPO with LR at 125cc/hr, diet post-procedure Disposition - Med/Tele FULL CODE status Admission and Anticipated Discharge Date Admission Date: April 08, 2023 Subjective Patient without any acute events overnight. She is having some softer BPs this morning in the high 90s, asymptomatic. No other concerns from nursing staff. Patient herself reports less redness of her thigh but still with a lot of pain in that area. She is very nervous about having the area drained. Review of Systems Review of Systems: All systems reviewed & are unremarkable except as noted in Subjective Physical Exam Constitutional: WD/WN, vitals as above Respiratory: normal respiratory effort, lungs clear to auscultation Cardiovascular: irregularly irregular HR without murmurs, bilateral 1+ edema Gastrointestinal (Abdomen): normal bowel sounds, soft, nontender, no hepatosplenomegaly Skin: left anteromedial thigh with baseball-sized area of swelling without overlying erythema, tender to palpation Psychiatric: A+Ox3, euthymic affect Results & Data Results & Data Vital Signs (Past 12 Hours) Vital Signs Temp Pulse Pulse Pulse Resp BP Pulse Ox 04/09/23 06:01 86 04/09/23 07:25 36.7 C 95 H 16 112/68 96 04/09/23 04:00 37.2 C 88 22 103/64 95 04/08/23 22:56 37.1 C 85 19 101/45 L 96 O2 Del Method 04/09/23 06:01 04/09/23 07:25 Room Air 04/09/23 04:00 Room Air 04/08/23 22:56 Room Air PG Care Time/CCT Total # of Minutes Spent Total Time Spent with Patient: Total time spent is greater than 50% in coordination of care (as documented) at patient's floor/unit and/or counseling patient: Coding Level of Care Code 23039 SUB INP/OBS CARE 3/50MIN Diagnoses Groin abscess L02.214 Sepsis due to cellulitis L03.90; A41.9 Cellulitis L03.114 Laterality: left Site of cellulitis: extremity Site of cellulitis of extremity: upper extremity Non Hodgkin's lymphoma C85.90 Non-Hodgkin lymphoma type: unspecified type Pancytopenia due to antineoplastic chemotherapy D61.810; T45.1X5A Neutropenia D70.1; T45.1X5A Neutropenia type: secondary to cancer chemotherapy Atrial fibrillation with rapid ventricular response I48.91 Generalized abdominal pain R10.84 Cirrhosis K74.60 (3) Cellulitis Laterality: left Site of cellulitis: extremity Site of cellulitis of extremity: upper extremity Qualified Code(s): L03.114 - Cellulitis of left upper limb (4) Non Hodgkin's lymphoma Non-Hodgkin lymphoma type: unspecified type (6) Neutropenia Neutropenia type: secondary to cancer chemotherapy Qualified Code(s): D70.1 - Agranulocytosis secondary to cancer chemotherapy; T45.1X5A - Adverse effect of antineoplastic and immunosuppressive drugs, initial encounter
--- NOTE | 2023-04-09 11:08 | Surgery Progress Note ---
Date of Service April 09, 2023 Assessment & Plan (1) Groin abscess: Plan: Her CT images and results were again reviewed by myself I think based on her overall clinical picture, she likely has had a slow lymph leak since her open lymph node biopsy With increasing pain and warmth over the area, there is concern for some infection at this point I did discuss with her surgical drainage versus percutaneous drainage With her pancytopenia and recent chemotherapy this would put her at very high risk for wound healing complications I think trying to percutaneously drain the area to minimize this open wound would be the best step for her We will follow along (2) Groin fluid collection: Admission and Anticipated Discharge Date Admission Date: April 08, 2023 Subjective Patient seen and examined. Still with tenderness in her left groin. Afebrile. Review of Systems Constitutional: no fever and no chills Gastrointestinal: + abdominal pain; no nausea and no vomiting Integumentary: + skin swelling Physical Exam Constitutional: WD/WN, vitals as above Skin: Left groin with out skin erythema, 6 to 7 cm area of swelling, tender to touch Results & Data Vital Signs (Past 12 Hours) Vital Signs Temp Pulse Pulse Resp BP Pulse Ox O2 Del Method 04/09/23 10:13 Room Air 04/09/23 06:01 86 04/09/23 07:25 36.7 C 95 H 16 112/68 96 Room Air 04/09/23 04:00 37.2 C 88 22 103/64 95 Room Air PG Care Time/CCT Total # of Minutes Spent Total Time Spent with Patient: Total time spent is greater than 50% in coordination of care (as documented) at patient's floor/unit and/or counseling patient: Coding Level of Care Code 10508 SUB INP/OBS CARE 12/26MIN Diagnoses Groin abscess L02.214 Groin fluid collection R18.8
[2023-04-09] MEDS ORDERED: fentaNYL citrate PF 100 MCG/2 ML VIAL ONE (14:51)
--- NOTE | 2023-04-09 15:22 | Ultrasound Report ---
ULTRASOUND-GUIDED LEFT GROIN/THIGH FLUID COLLECTION DRAIN PLACEMENT CLINICAL HISTORY: Fluid collection left groin/thigh; cellulitis COMPARISON STUDY: CT scan of the left femur dated 04/08/2023. PROCEDURE: Procedure and risks were explained. Informed consent was obtained. A final timeout was com pleted. The left anterior thigh was prepped and draped in sterile fashion. 1% buffered lidocaine was utilized for skin anesthesia. The patient received 25 mcg fentanyl IV. Utilizing ultrasound guidance, an 8 [place] skater catheter was advanced into the left groin/thigh flu id collection. Ultrasound images were obtained. Approximately 100 mL of cloudy yellow fluid was remov ed and sent to lab for analysis. The catheter was sutured to the skin with 2-0 silk and placed to suc tion bag drainage. The patient tolerated the procedure well. Post ultrasound imaging demonstrated connie quate catheter position with significant reduction of the left groin/thigh fluid collection. Vital si gns will be monitored on the floor postprocedure. IMPRESSION: Ultrasound-guided left groin/thigh drainage catheter placement as above. Performed, dictated, and signed by Ziggy Solis PA-C; to be co-signed by Dr. Norberto Martinez. Electronically signed by: Norberto Martinez M.D. 04/09/2023 4:00 PM
[2023-04-10] MEDS: CEFEPIME 2,000 MG in SYRINGE 0 ML IV SCH ×3 (01:33→18:01)
--- NOTE | 2023-04-10 05:10 | Electrocardiogram Report ---
Test Reason : Blood Pressure : / mmHG Vent. Rate : 088 BPM Atrial Rate : 000 BPM P-R Int : 000 ms QRS Dur : 090 ms QT Int : 344 ms P-R-T Axes : 000 -19 -03 degrees QTc Int : 416 ms Atrial fibrillation Possible Anterior infarct (cited on or before 22-DEC-2022) Possible Inferior infarct Nonspecific T wave abnormality Abnormal ECG When compared with ECG of 28-JAN-2023 16:35, Nonspecific T wave abnormality, worse in Lateral leads Confirmed by Leonardo Herr ([id number]) on 04/10/2023 5:10:04 AM Referred By: Ramon Guevara Confirmed By:Leonardo Herr
[2023-04-10] MEDS: VANCOMYCIN HCL 750 MG in SODIUM CHLORIDE 0.9% 250 ML IV SCH ×2 (05:35→18:01)
[2023-04-10] MEDS: LACTATED RINGER'S 1,000 ML IV SCH ×2 (05:35→15:04)
[2023-04-10 07:52] LABS: Est GFR (African American) 77.2 ml/min; Est GFR (Non-African American) 66.6 ml/min
[2023-04-10] MEDS: allopurinoL 300 MG TAB PO SCH (08:54)
[2023-04-10] MEDS: ATORVASTATIN 40 MG TAB PO SCH (08:54)
[2023-04-10] MEDS: buPROPion XL 150 MG TABCR PO SCH (08:55)
[2023-04-10] MEDS: CHOLECALCIFEROL 1,000 UNITS 25 MCG TAB PO SCH (08:55)
[2023-04-10] MEDS: dilTIAZem HCL 120 MG CAPCR PO SCH (08:55)
[2023-04-10] MEDS: DIGOXIN 0.125 MG TAB PO SCH (08:55)
[2023-04-10] MEDS: METOPROLOL TARTRATE 50 MG TAB PO SCH ×2 (08:56→20:46)
[2023-04-10] MEDS: PANTOprazole 40 MG TAB PO SCH ×2 (08:59→21:36)
[2023-04-10] MEDS ORDERED: SODIUM CHLORIDE 0.9% 1000ML 500 ML IV ONE (09:44)
--- NOTE | 2023-04-10 10:22 | Surgery Progress Note ---
Date of Service April 10, 2023 Assessment & Plan (1) Groin fluid collection: Plan: s/p IR drainage of L groin fluid collection yesterday. Fluid sent for cultures/gram stain IR drain output appears yellow and not infected appearing Will f/u on cultures. Continue IR drain for now Swelling mildly improved, pain and symptoms improving per pt Diet as tolerates No plans for surgical intervention indicated at this time Admission and Anticipated Discharge Date Admission Date: April 08, 2023 Supervising Physician Co-Signing Physician Notes I personally saw and evaluated the patient with Bina Ramos PA-C and agree with the assessment and plan. 72-year-old female with left groin lymphocele status post IR guided drain pl acement IR notes reviewed, 100 cc of straw-colored fluid removed at initial drain placement Drains in place and still draining adequately Patient feels much better status post drain placement No plans for any surgical drainage We will touch base with IR to see if they manage the drain and timing of removal versus following up with surgery for this Subjective Patient states she is feeling better than yesterday. Remains with pain in groin, but improved. No CP. Physical Exam Physical Exam: awake/alert, no distress Respiratory: normal respiratory effort Cardiovascular: Rate/Rhythm: + tachycardic Skin: L groin/thigh with improving tenderness to palpation, no overlying skin changes, remains with some swelling. IR drain with a yellow outpt Results & Data Vital Signs (Past 12 Hours) Vital Signs Temp Pulse Pulse Resp BP Pulse Ox O2 Del Method 04/10/23 08:55 126 H 04/10/23 08:44 129 H 20 110/54 L 95 Room Air 04/10/23 07:51 Room Air 04/10/23 07:26 36.4 C L 96 H 18 136/77 97 Room Air 04/10/23 05:57 96 H 04/10/23 03:49 36.0 C L 93 H 20 111/69 93 Room Air 04/10/23 00:15 36.5 C 87 20 123/71 96 Room Air PG Care Time/CCT Total # of Minutes Spent Total Time Spent with Patient: Total time spent is greater than 50% in coordination of care (as documented) at patient's floor/unit and/or counseling patient: Coding Level of Care Code 20122 SUB INP/OBS CARE 1/25MIN Diagnoses Groin fluid collection R18.8
--- NOTE | 2023-04-10 10:36 | Hospitalist Progress Note ---
Date of Service April 10, 2023 Assessment & Plan (1) Groin abscess: Plan: Suspected Hx left inguinal excision in December, treated for fluid collection and cellulitis in this area. CTAP and CT L femur note 13 x 6 x 6.5 cm multiloculated fluid collection with surrounding inflammation. Continue vanc/cefepime; BCx pending, as well as fluid cultures though the fluid does not appear particularly purulent. General surgery consulted and appreciate recs, continuing to follow at this time. (2) Sepsis due to cellulitis: Plan: With elevated HR and leukopenia on admission, in the setting of immunocompromise and Hx B cell lymphoma. Did not receive bolus IVF on admission due to history of fluid overload and CHF, and patient was hemodynamically stable. Received IVF at 125 cc/h overnight, can discontinue in favor of oral intake. 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 Leukopenia with neutropenia on admission, with improvement in WBCs and platelets in the last 24 hours, no longer neutropenic. Hemoglobin 9.1 today, stable and no evidence of acute blood loss. (6) Neutropenia: Plan: Associated with B cell lymphoma, see above. Daily CBC. Neutropenia precautions as required. (7) Atrial fibrillation with rapid ventricular response: Plan: Last took Eliquis 5/8 AM, resume tomorrow AM. Continue metoprolol, diltiazem, digoxin. Episode of atrial fibrillation with rapid ventricular response this morning in the setting of recovering infection, dehydration, improved with rest without any IV medications required. Continue to monitor on telemetry. (8) Generalized abdominal pain: Plan: History of Ngoc-en-Y . Continue PPI. (9) Cirrhosis: Plan: Spironolactone/Lasix on hold in setting of sepsis, monitor closely for fluid overload. Plan VTE Prophylaxis - Eliquis on hold, resume tomorrow a.m. Diet -regular diet Disposition - Med/Tele FULL CODE status Admission and Anticipated Discharge Date Admission Date: April 08, 2023 Subjective Patient without any acute events overnight. She reports that her thigh feels somewhat better today compared to yesterday, distiller but not quite like yesterday. She reports that the redness is better than it was on admission. She did have brief episode of A-fib with rapid ventricular response this morning while getting up to use the bathroom with heart rates in the 160s, rapidly decreased to the 120s, by time of my evaluation patient's heart rate was in the 80s. She denies chest pain or trouble breathing, but does note some sensation of palpitations during that episode of elevated heart rate that has since resolved. Review of Systems Review of Systems: All systems reviewed & are unremarkable except as noted in Subjective Physical Exam Constitutional: WD/WN, vitals as above Respiratory: normal respiratory effort, lungs clear to auscultation Cardiovascular: irregularly irregular HR without murmurs, nontachycardic, bilateral 1+ edema Gastrointestinal (Abdomen): normal bowel sounds, soft, nontender, no hepatosplenomegaly Skin: left anteromedial thigh with swelling without overlying erythema, tender to palpation, drain with clear yellow fluid does not appear purulent Psychiatric: A+Ox3, euthymic affect Results & Data Results & Data Vital Signs (Past 12 Hours) Vital Signs Temp Pulse Pulse Resp BP Pulse Ox O2 Del Method 04/10/23 08:55 126 H 04/10/23 08:44 129 H 20 110/54 L 95 Room Air 04/10/23 07:51 Room Air 04/10/23 07:26 36.4 C L 96 H 18 136/77 97 Room Air 04/10/23 05:57 96 H 04/10/23 03:49 36.0 C L 93 H 20 111/69 93 Room Air 04/10/23 00:15 36.5 C 87 20 123/71 96 Room Air PG Care Time/CCT Total # of Minutes Spent Total Time Spent with Patient: Total time spent is greater than 50% in coordination of care (as documented) at patient's floor/unit and/or counseling patient: Coding Level of Care Code 34075 SUB INP/OBS CARE 3/50MIN Diagnoses Groin abscess L02.214 Sepsis due to cellulitis L03.90; A41.9 Cellulitis L03.114 Laterality: left Site of cellulitis: extremity Site of cellulitis of extremity: upper extremity Non Hodgkin's lymphoma C85.90 Non-Hodgkin lymphoma type: unspecified type Pancytopenia due to antineoplastic chemotherapy D61.810; T45.1X5A Neutropenia D70.1; T45.1X5A Neutropenia type: secondary to cancer chemotherapy Atrial fibrillation with rapid ventricular response I48.91 Generalized abdominal pain R10.84 Cirrhosis K74.60 (3) Cellulitis Laterality: left Site of cellulitis: extremity Site of cellulitis of extremity: upper extremity Qualified Code(s): L03.114 - Cellulitis of left upper limb (4) Non Hodgkin's lymphoma Non-Hodgkin lymphoma type: unspecified type (6) Neutropenia Neutropenia type: secondary to cancer chemotherapy Qualified Code(s): D70.1 - Agranulocytosis secondary to cancer chemotherapy; T45.1X5A - Adverse effect of antineoplastic and immunosuppressive drugs, initial encounter
[2023-04-10 12:41] LABS: Hematocrit (blood only) 28.5 % (37.0-47.0); Hemoglobin 9.1 g/dl (12.0-16.0); Mean Corpuscular Hemoglobin 35.3 pg (25.0-34.0); Mean Corpuscular Hgb Conc 31.9 g/dL (32.0-36.0); Mean Corpuscular Volume 110.5 fL (80.0-100.0); Nucleated RBC # (auto) 0.03 K/uL (0-0.12); Nucleated RBC % (auto) 1.3 %; Platelet Count 111 K/uL (130-400); RDW Coefficient of Variation 14.5 % (11.5-14.5); RDW Standard Deviation 59.1 fL (36.4-46.3); Red Blood Count 2.58 M/uL (4.20-5.40); White Blood Count 2.27 K/ul (4.8-10.8)
[2023-04-10 13:03] LABS: Basophils # (auto) 0.01 K/uL (0-0.2); Basophils % (auto) 0.4 %; Dohle Bodies 1+; Eosinophils # (auto) 0.02 K/uL (0-0.50); Eosinophils % (auto) 0.9 %; Immature Granulocytes # (auto) 0.04 K/uL (0.01-0.20); Immature Granulocytes % (auto) 1.8 %; Lymphocytes # (auto) 0.24 K/uL (1.2-3.4); Lymphocytes % (auto) 10.6 %; Macrocytosis Present; Monocytes # (auto) 0.17 K/uL (0.11-0.59); Monocytes % (auto) 7.5 %; Neutrophils # (auto) 1.79 K/uL (1.40-6.50); Neutrophils % (auto) 78.8 %; Ovalocytes 1+; Polychromasia 1+; Tear Drop Cells 1+; Toxic Granulation 1+
[2023-04-10 13:04] LABS: Calcium 8.2 mg/dl (8.6-10.3); Potassium 3.9 mmol/L (3.5-5.1)
[2023-04-10 13:10] LABS: BUN Creatinine Ratio 15.7 (10-20); Est GFR (African American) 64.5 ml/min; Est GFR (Non-African American) 55.7 ml/min
--- NOTE | 2023-04-10 13:22 | Pharmacy Report ---
Pharmacy PK ABX Note - Date of Service April 10, 2023 - Assessment and Plan Assessment 04/10/23 * Patient is s/p IR drainage of groin fluid collection yesterday, culture pending. Blood culture negative. * No plans for surgical intervention at this time * Continues with vancomycin/cefepime - awaiting final culture results 04/08/23 * 72 year old F receiving CEFEPIME/VANCOMYCIN for treatment of cellulitis/groin fluid collection. Patient with recent chemotherapy for non-Hodgkin's lymphoma, hx of antibiotics in last 90 days: cefdinir. Pertinent microbiologic data includes: remote hx of ESBL E. coli (urine). Blood cultures currently pending Plan Vancomycin * Random vancomycin level came back at ~18 mcg/ml today - patient receiving vancomycin 750 mg iv q 12 hours * Plan to continue current vancomycin regimen as dosing is estimated to achieve a target AUC/JULIANNA of 400-600 mg/L.hr Pharmacy will continue to follow and will adjust dose/frequency as necessary. Thank you. Pharmacy has transitioned to AUC monitoring for vancomycin. AUC/JULIANNA is the preferred PK/PD target and is associated with decreased risk of nephrotoxicity compared to traditional trough targets.
[2023-04-11] MEDS: CEFEPIME 2,000 MG in SYRINGE 0 ML IV SCH ×3 (02:25→17:27)
--- NOTE | 2023-04-11 05:38 | Electrocardiogram Report ---
Test Reason : Blood Pressure : / mmHG Vent. Rate : 118 BPM Atrial Rate : 122 BPM P-R Int : 000 ms QRS Dur : 088 ms QT Int : 314 ms P-R-T Axes : 000 -18 -11 degrees QTc Int : 440 ms Atrial fibrillation with rapid ventricular response Inferior infarct , age undetermined Anterior infarct (cited on or before 22-DEC-2022) Nonspecific T wave abnormality Abnormal ECG When compared with ECG of 08-APR-2023 13:24, No significant change was found Confirmed by Leonardo Herr ([id number]) on 04/11/2023 5:37:52 AM Referred By: Ramon Guevara Confirmed By:Leonardo Herr
[2023-04-11] MEDS: VANCOMYCIN HCL 750 MG in SODIUM CHLORIDE 0.9% 250 ML IV SCH ×2 (05:59→17:27)
[2023-04-11 07:52] LABS: Hematocrit (blood only) 23.9 % (37.0-47.0); Hemoglobin 7.8 g/dl (12.0-16.0); Mean Corpuscular Hemoglobin 35.6 pg (25.0-34.0); Mean Corpuscular Hgb Conc 32.6 g/dL (32.0-36.0); Mean Corpuscular Volume 109.1 fL (80.0-100.0); Mean Platelet Volume 10.2 fL (9.4-12.4); Nucleated RBC # (auto) 0.02 K/uL (0-0.12); Nucleated RBC % (auto) 0.8 %; Platelet Count 102 K/uL (130-400); RDW Coefficient of Variation 14.6 % (11.5-14.5); RDW Standard Deviation 58.4 fL (36.4-46.3); Red Blood Count 2.19 M/uL (4.20-5.40); White Blood Count 2.63 K/ul (4.8-10.8)
[2023-04-11 08:11] LABS: Calcium 7.7 mg/dl (8.6-10.3); Potassium 3.7 mmol/L (3.5-5.1)
[2023-04-11 08:17] LABS: BUN Creatinine Ratio 14.9 (10-20); Basophils # (auto) 0.01 K/uL (0-0.2); Basophils % (auto) 0.4 %; Creatinine Clr Calc Pharmacy 66.7 ml/min; Dohle Bodies 1+; Eosinophils # (auto) 0.02 K/uL (0-0.50); Eosinophils % (auto) 0.8 %; Est GFR (African American) 78.2 ml/min; Est GFR (Non-African American) 67.5 ml/min; Immature Granulocytes # (auto) 0.12 K/uL (0.01-0.20); Immature Granulocytes % (auto) 4.6 %; Lymphocytes # (auto) 0.24 K/uL (1.2-3.4); Lymphocytes % (auto) 9.1 %; Monocytes # (auto) 0.23 K/uL (0.11-0.59); Monocytes % (auto) 8.7 %; Neutrophils # (auto) 2.01 K/uL (1.40-6.50); Neutrophils % (auto) 76.4 %; Ovalocytes 1+; Polychromasia 1+; Tear Drop Cells 1+; Toxic Granulation 1+
--- NOTE | 2023-04-11 08:59 | Surgery Progress Note ---
Date of Service April 11, 2023 Assessment & Plan (1) Groin fluid collection: Plan: s/p IR drainage of L groin fluid collection on 04/09. Fluid sent for cultures/gram stain, says few GPCs but reincubating...likely will be sent home on course of abx IR drain output remains a clear yellow Swelling mildly improved, pain and symptoms improving per pt Diet as tolerates Upon discharge she should follow up with us within 1 week for follow up and drain removal We will sign off, but call with questions/concerns Admission and Anticipated Discharge Date Admission Date: April 08, 2023 Supervising Physician Co-Signing Physician Notes I personally saw and evaluated the patient with Bina Ramos PA-C and agree with the assessment and plan. 72-year-old female with left groin lymphocele status post IR guided drain placement She is doing well status post IR drainage of her left groin lymphocele Cultures are still pending, if they grow out bacteria would place her on antibiotics for 14-day course She can follow-up with me in 1 week status post discharge to follow her drain Surgical sign off at this time, please call with questions or concerns Subjective Patient still with some pain in groin but improved. offers no complaints Physical Exam Physical Exam: awake/alert, no distress Respiratory: normal respiratory effort Gastrointestinal (Abdomen): L groin/thigh remains tender to palpation but improved since admission. IR drain with yellow/serous drainage Results & Data Vital Signs (Past 12 Hours) Vital Signs Temp Pulse Pulse Resp BP Pulse Ox O2 Del Method 04/11/23 07:38 36.7 C 91 H 18 116/70 94 Room Air 04/11/23 07:15 98 H 04/10/23 22:00 74 04/11/23 03:34 36.8 C 80 18 112/70 94 Room Air 04/10/23 22:53 36.8 C 77 18 155/83 H 94 Room Air PG Care Time/CCT Total # of Minutes Spent Total Time Spent with Patient: Total time spent is greater than 50% in coordination of care (as documented) at patient's floor/unit and/or counseling patient: Coding Level of Care Code 53715 SUB INP/OBS CARE 1/25MIN Diagnoses Groin fluid collection R18.8
[2023-04-11] MEDS: PANTOprazole 40 MG TAB PO SCH ×2 (09:09→19:44)
[2023-04-11] MEDS: APIXABAN 5 MG TABLET PO SCH ×2 (09:09→19:43)
[2023-04-11] MEDS: DIGOXIN 0.125 MG TAB PO SCH (09:09)
[2023-04-11] MEDS: allopurinoL 300 MG TAB PO SCH (09:09)
[2023-04-11] MEDS: METOPROLOL TARTRATE 50 MG TAB PO SCH ×2 (09:10→19:43)
[2023-04-11] MEDS: buPROPion XL 150 MG TABCR PO SCH (09:10)
[2023-04-11] MEDS: dilTIAZem HCL 120 MG CAPCR PO SCH (09:10)
[2023-04-11] MEDS: ATORVASTATIN 40 MG TAB PO SCH (09:11)
[2023-04-11] MEDS: CHOLECALCIFEROL 1,000 UNITS 25 MCG TAB PO SCH (09:11)
--- NOTE | 2023-04-11 14:14 | Hospitalist Progress Note ---
Date of Service April 11, 2023 Assessment & Plan (1) Groin abscess: Plan: Possible. Hx left inguinal excision in December, treated for fluid collection and cellulitis in this area. CTAP and CT L femur this admission noted 13 x 6 x 6.5 cm multiloculated fluid collection with surrounding inflammation. Continue vanc/cefepime; BCx negative to date, fluid culture with pinpoint growth that is reaccumulating. General surgery consulted and appreciate recs, will maintain drain and have follow-up with patient next week. Infectious disease consulted for antibiotic recommendations given recent neutropenia, cancer diagnosis, and ongoing infection treatment; case discussed with Dr. Mckee. (2) Sepsis due to cellulitis: Plan: With elevated HR and leukopenia on admission, in the setting of immunocompromise and Hx B cell lymphoma. Did not receive bolus IVF on admission due to history of fluid overload and CHF, and patient was hemodynamically stable. Received IVF at 125 cc/hr x2 days on admission. 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 R-CHOP started 12/11/2022 with inguinal lymph node excision confirming low grade B cell lymphoma. (5) Pancytopenia due to antineoplastic chemotherapy: Plan: In the setting of R-CHOP therapy for B cell lymphoma. Leukopenia with neutropenia on admission, with improvement in WBCs and platelets in the last 24 hours, no longer neutropenic. Hemoglobin 7.8 today, no evidence of acute blood loss, continue to monitor. (6) Neutropenia: Plan: Associated with B cell lymphoma, see above. Daily CBC. Neutropenia precautions as required. (7) Atrial fibrillation with rapid ventricular response: Plan: Last took Eliquis 58 AM, resume tomorrow AM. Continue metoprolol, diltiazem, digoxin. Episode of atrial fibrillation with rapid ventricular response 04/10 in the setting of recovering infection, dehydration, improved with rest without any IV medications required. Continue to monitor on telemetry. (8) Generalized abdominal pain: Plan: History of Ngoc-en-Y . Continue PPI. (9) Cirrhosis: Plan: Spironolactone/Lasix on hold in setting of sepsis, monitor closely for fluid overload. Plan VTE Prophylaxis - Eliquis Diet - regular diet Disposition - Med/Tele FULL CODE status Admission and Anticipated Discharge Date Admission Date: April 08, 2023 Subjective Patient without any acute events overnight. No fevers. She denies shortness of breath or chest pain. endorses some thigh discomfort still. No lightheadedness. Review of Systems Review of Systems: All systems reviewed & are unremarkable except as noted in Subjective Physical Exam Constitutional: WD/WN, vitals as above Respiratory: normal respiratory effort, lungs clear to auscultation Cardiovascular: irregularly irregular HR without murmurs, nontachycardic, bilateral 1+ edema Gastrointestinal (Abdomen): normal bowel sounds, soft, nontender, no hepatosplenomegaly Skin: left anteromedial thigh with swelling without overlying erythema, tender to palpation, drain with clear yellow fluid does not appear purulent Psychiatric: A+Ox3, euthymic affect Results & Data Results & Data Vital Signs (Past 12 Hours) Vital Signs Temp Pulse Pulse Resp BP Pulse Ox O2 Del Method 04/11/23 11:07 36.8 C 70 18 112/69 95 Room Air 04/11/23 07:38 36.7 C 91 H 18 116/70 94 Room Air 04/11/23 07:15 98 H 04/11/23 03:34 36.8 C 80 18 112/70 94 Room Air PG Care Time/CCT Total # of Minutes Spent Total Time Spent with Patient: Total time spent is greater than 50% in coordination of care (as documented) at patient's floor/unit and/or counseling patient: Coding Level of Care Code 39292 SUB INP/OBS CARE 3/50MIN Diagnoses Groin abscess L02.214 Sepsis due to cellulitis L03.90; A41.9 Cellulitis L03.114 Laterality: left Site of cellulitis: extremity Site of cellulitis of extremity: upper extremity Non Hodgkin's lymphoma C85.90 Non-Hodgkin lymphoma type: unspecified type Pancytopenia due to antineoplastic chemotherapy D61.810; T45.1X5A Neutropenia D70.1; T45.1X5A Neutropenia type: secondary to cancer chemotherapy Atrial fibrillation with rapid ventricular response I48.91 Generalized abdominal pain R10.84 Cirrhosis K74.60 (3) Cellulitis Laterality: left Site of cellulitis: extremity Site of cellulitis of extremity: upper extremity Qualified Code(s): L03.114 - Cellulitis of left upper limb (4) Non Hodgkin's lymphoma Non-Hodgkin lymphoma type: unspecified type (6) Neutropenia Neutropenia type: secondary to cancer chemotherapy Qualified Code(s): D70.1 - Agranulocytosis secondary to cancer chemotherapy; T45.1X5A - Adverse effect of antineoplastic and immunosuppressive drugs, initial encounter
[2023-04-11] MEDS ORDERED: FUROSEMIDE 40 MG TAB PO PRN (17:21)
[2023-04-12] MEDS: CEFEPIME 2,000 MG in SYRINGE 0 ML IV SCH ×2 (02:28→09:01)
[2023-04-12] MEDS: VANCOMYCIN HCL 750 MG in SODIUM CHLORIDE 0.9% 250 ML IV SCH (05:46)
[2023-04-12 06:57] LABS: Basophils # (auto) 0.01 K/uL (0-0.2); Basophils % (auto) 0.3 %; Eosinophils # (auto) 0.01 K/uL (0-0.50); Eosinophils % (auto) 0.3 %; Hematocrit (blood only) 23.9 % (37.0-47.0); Hemoglobin 7.7 g/dl (12.0-16.0); Immature Granulocytes # (auto) 0.05 K/uL (0.01-0.20); Immature Granulocytes % (auto) 1.7 %; Lymphocytes # (auto) 0.35 K/uL (1.2-3.4); Lymphocytes % (auto) 12.2 %; Mean Corpuscular Hemoglobin 35.8 pg (25.0-34.0); Mean Corpuscular Hgb Conc 32.2 g/dL (32.0-36.0); Mean Corpuscular Volume 111.2 fL (80.0-100.0); Mean Platelet Volume 10.5 fL (9.4-12.4); Monocytes # (auto) 0.22 K/uL (0.11-0.59); Monocytes % (auto) 7.7 %; Neutrophils # (auto) 2.23 K/uL (1.40-6.50); Neutrophils % (auto) 77.8 %; Nucleated RBC # (auto) 0.03 K/uL (0-0.12); Platelet Count 109 K/uL (130-400); RDW Coefficient of Variation 14.7 % (11.5-14.5); RDW Standard Deviation 59.9 fL (36.4-46.3); Red Blood Count 2.15 M/uL (4.20-5.40); White Blood Count 2.87 K/ul (4.8-10.8)
[2023-04-12 07:11] LABS: BUN Creatinine Ratio 16.7 (10-20); Calcium 7.8 mg/dl (8.6-10.3); Creatinine Clr Calc Pharmacy 64.5 ml/min; Est GFR (African American) 75.1 ml/min; Est GFR (Non-African American) 64.8 ml/min; Potassium 3.6 mmol/L (3.5-5.1)
[2023-04-12 07:25] LABS: Dohle Bodies 2+; Ovalocytes 1+; Polychromasia 1+; Tear Drop Cells 1+
[2023-04-12] MEDS: PANTOprazole 40 MG TAB PO SCH (08:20)
[2023-04-12] MEDS: buPROPion XL 150 MG TABCR PO SCH (08:21)
[2023-04-12] MEDS: APIXABAN 5 MG TABLET PO SCH (08:21)
[2023-04-12] MEDS: DIGOXIN 0.125 MG TAB PO SCH (08:21)
[2023-04-12] MEDS: ATORVASTATIN 40 MG TAB PO SCH (08:21)
[2023-04-12] MEDS: allopurinoL 300 MG TAB PO SCH (08:21)
[2023-04-12] MEDS: METOPROLOL TARTRATE 50 MG TAB PO SCH (08:21)
[2023-04-12] MEDS: CHOLECALCIFEROL 1,000 UNITS 25 MCG TAB PO SCH (08:21)
[2023-04-12] MEDS: dilTIAZem HCL 120 MG CAPCR PO SCH (08:21)
--- NOTE | 2023-04-12 08:44 | Discharge Summary ---
Discharge Summary Date of Service April 12, 2023 Admission HPI Per Admitting Provider Tea Dawkins is a 72 year old female with history of ngoc-en Y and B cell lymphoma who presents to the ER with left leg pain and swelling. No fever or chills. Left leg pain and swelling getting worse over the last 2-3 days. Associated diarrhea and decreased appetite, abdominal pain after eating. No dysphagia, odynophagia, watery stool, melena or hematochezia. Currently on R- CHOP for B cell lymphoma with last chemotherapy on Saturday. Leg erythema and swelling is over site of previous fluid collection that has been there since December after left inguinal excision removal but has been getting larger since then. Never been infected previously and erythema and swelling never been there before. Admission Exam Per Admitting Provider Constitutional: WD/WN, vitals as above Eyes: + anicteric sclerae; normal pupil size Neck: trachea midline, no thyromegaly Respiratory: normal respiratory effort, lungs clear to auscultation Cardiovascular: Rate/Rhythm: regular rate and + irregularly irregular Heart Sounds: + murmur Extremities: normal capillary refill and + pedal edema (1+ equal b/l pitting); no calf tenderness Gastrointestinal (Abdomen): Inspection/Auscultation: abdomen normal to inspection; abdomen not distended Percussion/Palpation: + abdomen tender (generalized without rebound) and abdomen soft; no guarding and abdomen not rigid Musculoskeletal: no cyanosis or clubbing, extremities motor strength 5/5 Skin: Erythema and swelling over anterior medial left thigh from groin to knee Neurologic: moves all extremities and awake; not confused Psychiatric: A+Ox3, euthymic affect Genitourinary: no CVA tenderness Principal Dx & Hospital Course #1 = Principal Diagnosis (1) Groin abscess: Suspected. Hx left inguinal excision in December, treated for fluid collection and cellulitis in this area. CTAP and CT L femur this admission noted 13 x 6 x 6.5 cm multiloculated fluid collection with surrounding inflammation. BCx negative to date, fluid culture with pinpoint growth that is reaccumulating. General surgery consulted and appreciate recs, s/p IR fluid collection drainage 04/09/2023, will maintain drain and have follow-up with surgical office next week. Infectious disease consulted for antibiotic recommendations given recent neutropenia, cancer diagnosis, and ongoing infection treatment; case discussed with Dr. Mckee. Recommended Augmentin/doxycycline x3 weeks, with follow-up thigh ultrasound in 1 week to evaluate for resolution of fluid collection. Can discontinue antibiotics at 2 weeks if fluid collection has resolved, will ultimately need ongoing antibiotics until fluid collection is resolved given immunocompromise status and recent neutropenia. (2) Sepsis due to cellulitis: With elevated HR and leukopenia on admission, in the setting of immunocompromise and Hx B cell lymphoma. Did not receive bolus IVF on admission due to history of fluid overload and CHF, and patient was hemodynamically stable. Received IVF at 125 cc/hr x2 days on admission. 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 R-CHOP started 12/11/2022 with inguinal lymph node excision confirming low grade B cell lymphoma. Per oncology patient is done with treatments at least at this time. (5) Pancytopenia due to antineoplastic chemotherapy: In the setting of R-CHOP therapy for B cell lymphoma. Leukopenia with neutropenia on admission, with improvement in WBCs and platelets in the last 48 hours, no longer neutropenic. Hemoglobin stable at 7.7 today, no evidence of acute blood loss, recommend continued outpatient monitoring. (6) Neutropenia: Associated with B cell lymphoma, see above, resolved. (7) Atrial fibrillation with rapid ventricular response: Eliquis resumed on day of discharge. Continue metoprolol, diltiazem, digoxin. Episode of atrial fibrillation with rapid ventricular response 04/10 in the setting of recovering infection, dehydration, improved with rest without any IV medications required. (8) Generalized abdominal pain: History of Ngoc-en-Y. Continue PPI. (9) Cirrhosis: Can resume home spironolactone and as needed Lasix with close follow-up with heart failure clinic. Plan Disposition: Home with self-care, with close follow-up with general surgery and follow-up ultrasound, Augmentin/doxycycline x3-week Discharge Exam Constitutional WD/WN, vitals as above Skin left anteromedial thigh with swelling without overlying erythema, tender to palpation, drain with clear yellow fluid does not appear purulent Updated Medication List Medication Instructions Recorded Confirmed Type nystatin 100,000 unit/gram topical 1 applic topical HS PRN fungal site 06/24/22 04/08/23 History powder (Nystop) atorvastatin 40 mg tablet (Lipitor) 40 mg PO QAM #90 tabs 07/06/22 04/08/23 Rx spironolactone 25 mg tablet 25 mg PO QAM #90 tabs 08/21/22 04/08/23 Rx (Aldactone) allopurinol 300 mg tablet 300 mg PO QAM 12/04/22 04/08/23 History oxycodone-acetaminophen 5 mg-325 1 tab PO Q6H PRN pain #10 tabs 12/20/22 04/08/23 Rx mg tablet (Percocet) diltiazem HCl 120 mg 120 mg PO DAILY #90 caps 01/22/23 04/08/23 Rx capsule,extended release 24 hr (Cardizem CD) pantoprazole 20 mg tablet,delayed 20 mg PO BID #180 tabs 01/22/23 04/08/23 Rx release bupropion HCl 150 mg 24 hr tablet, 150 mg PO QAM #90 tabs 01/29/23 04/08/23 Rx extended release apixaban 5 mg tablet (Eliquis) 5 mg PO BID #180 tabs 02/05/23 04/08/23 Rx digoxin 125 mcg (0.125 mg) tablet 0.125 mg PO DAILY 02/11/23 04/08/23 History (Digitek) sennosides 8.6 mg-docusate sodium 1 - 2 tab-cap PO BID PRN 02/11/23 04/08/23 Rx 50 mg tablet (Senokot-S) constipation #60 tabs cholecalciferol (vitamin D3) 25 2,000 unit PO QAM 02/19/23 04/08/23 History mcg (1,000 unit) capsule (Vitamin D3) metoprolol tartrate 50 mg tablet 50 mg PO BID #180 tabs 02/19/23 04/08/23 Rx amoxicillin 875 mg-potassium 1 tab PO BID 21 days #42 tabs 04/12/23 Rx clavulanate 125 mg tablet doxycycline hyclate 100 mg capsule 100 mg PO BID 21 days #42 caps 04/12/23 Rx furosemide 40 mg tablet (Lasix) 40 mg PO DAILY PRN swelling/weight 04/12/23 04/08/23 Rx gain #180 tabs Hospital Stay Data Consultations 04/08/23 17:06 ED Decision to Admit Stat 04/08/23 19:26 Consult General Surgery Routine 04/11/23 13:49 Consult Infectious Diseases Routine Diagnostic Imagining Performed 04/08/23 12:56 US venous doppler LE LT Stat 04/08/23 18:45 CT abd pelvis IV con only Stat CT femur LT w con Stat 04/09/23 IR AD softtisspercutan w/gdnce Routine Discharge Instructions Given to Patient (Per Discharging Provider) You were admitted for sepsis due to a thigh infection and sepsis. You had a drain placed to drain the fluid collection. You were given IV antibiotics with improvement in your cellulitis and infection. You were transitioned to Augmentin and doxycycline, to be continued for 3 weeks. This was sent to [facility]. You will have a follow up ultrasound in the future of your thigh to make sure the fluid collection is going down. You will be discharged with a drain in place. Please record output daily and bring record to follow up appointment with Dr. Hernandez in 1 weeks time. Please call [phone] to schedule a post op appointment with the surgery office. You can also call that office if you have questions of concerns about thigh redness, or your bag filling up. I have also ordered an ultrasound for follow up of the fluid collection (this should be in your discharge paperwork). You will need to call [phone] and ask for extension [phone] to talk with the outpatient Radiology schedulers to schedule this for about a week from now. Total Time Total Time Spent Total Time Spent (In Minutes): 40 minutes Coding Level of Care Code 25881 INP/OBS DISCH >30 MIN Diagnoses Groin abscess L02.214 Sepsis due to cellulitis L03.90; A41.9 Cellulitis L03.114 Laterality: left Site of cellulitis: extremity Site of cellulitis of extremity: upper extremity Non Hodgkin's lymphoma C85.90 Non-Hodgkin lymphoma type: unspecified type Pancytopenia due to antineoplastic chemotherapy D61.810; T45.1X5A Neutropenia D70.1; T45.1X5A Neutropenia type: secondary to cancer chemotherapy Atrial fibrillation with rapid ventricular response I48.91 Generalized abdominal pain R10.84 Cirrhosis K74.60
--- NOTE | 2023-04-12 14:26 | Infectious Disease Consult ---
Date of Consultation April 12, 2023 Assessment & Plan (1) Neutropenia: (2) Groin abscess: (3) Sepsis due to cellulitis: (4) Non Hodgkin's lymphoma: Plan #Left groin infected fluid collection s/p drainage #Left upper thigh cellulitis #Neutropenia, resolved #Pancytopenia #NHL 72 year old female with history of raudel-en Y, atrial fibrillation on Eliquis, B cell lymphoma on R CHOP most recently given 04/08, who presents to the ER with left leg pain and swelling on 04/08. Patient with long standing history of right groin fluid collection after CT guided left inguinal node biopsy in 10/2022. Infectious diseases has been consulted for antibiotic management of collection and cellulitis. Patent underwent L groin Lymph node biopsy in 10/2022, Subsequently developed fluid collection noted in 12/2022 and was monitored. Patient denies pain or erythema at site. Left groin ultrasound 01/02 showed 3 fluid eollections 8 x 2.1 x 5.5, 2.9 x 2 x 2.6, and 6.7 x 1.4 x 1.4 these appeared to be hematomas based on imaging. PET scan on 01/30 noted these to be consistent with seromas on 01/30. Patient received her last round of RCHOP on 04/08 and did well however developed acutely redness and pain in L groing. She was admitted on 04/08, WBC 1. CT Femur showed these collections to be multi-loculated with significant increased size since 02/11 imaging She underwent IR drainage of left groin fluid on 04/09, where 100 mL of cloudy yellow fluid was removed, gram stain showed few wbcs and few gram positive cocci, preliminary cultures grew probably skin microbiota. 04/08 Blood cultures no growth Discussion: Patient long standing fluid collection that I suspect became superinfected in setting of chemotherapy. Now she is s/p drainage with no significant growth. Blood cultures are also negative and she has had marked improvement on Vancomycin and Cefepime. I believe we need to treat to collection resolution which will be decided by imaging. Unlikely collection is pseudomonas and suspect this is likely skin micro. Recommend: -Likekly transition to Doxycycline 100mg po BID and Augmentin 875/125 1 po BID -Recommend CBC with diff, CMP weekly -Plan for reimaing with ultrasound in 1 week to evaluate collections if these collections are resolved would treat with above anitbiotics for a total of 2 weeks, if smaller but near resolved would plan for an additional 2 more weeks (for a total of 3 weeks) - I discussed importance of taking pills with food and avoiding dairy 2 hours before/after I spoke with Dr. Michael Mckee MD Infectious Disease, [facility] Consultation Information Consultation was provided via telemedicine using two-way real-time interactive telecommunication between the patient and the telemedicine provider. For the duration of the visit, the provider was performing the assessment from a different facility than the patient. This includesuse of bluetooth stethoscope forauscultationperformed by the telepresenter that the telemedicine provider can hear if described in the physical exam. Senior Hadoop Developer contact information: Please call [facility] [phone]. (Phone Number For Physician Use Only) After establishing a telemedicine visit, patient was: Patient was verified with two unique identifiers, Patient/authorized rep acknowledged consent and understanding and Gave permission to continue telehealth session Time Spent with Patient: Initial => 55 min History of Present Illness Reason for Consultation: Left groin infection, neutropenia Attending Physician: Etta Peace DO History of Present Illness 72 year old female with history of raudel-en Y, atrial fibrillation on Eliquis, B cell lymphoma on R CHOP most recently given 04/08, who presents to the ER with left leg pain and swelling on 04/08. Patient with long standing history of right groin fluid collection after CT guided left inguinal node biopsy in 10/2022. Infectious diseases has been consulted for antibiotic management of collection and cellulitis. Patent underwent L groin Lymph node biopsy in 10/2022, Subsequently developed fluid collection noted in 12/2022 and was monitored. Patient denies pain or erythema at site. Left groin ultrasound 01/02 showed 3 fluid eollections 8 x 2.1 x 5.5, 2.9 x 2 x 2.6, and 6.7 x 1.4 x 1.4 these appeared to be hematomas based on imaging. PET scan on 01/30 noted these to be consistent with seromas on 01/30. Patient received her last round of RCHOP on 04/08 and did well however developed acutely redness and pain in L groing. She was admitted on 04/08, WBC 1. CT Femur showed these collections to be multi-loculated with significant increased size since 02/11 imaging She underwent IR drainage of left groin fluid on 04/09, where 100 mL of cloudy yellow fluid was removed, gram stain showed few wbcs and few gram positive cocc i, preliminary cultures grew probably skin microbiota. 04/08 Blood cultures no growth Today, she is feeling about much better. No fevers/chills. She states swelling and redness of L thigh have improved about 70 percent. No injury to leg. She did have a cat scratch her R arm but denies any animal bites or scratches to L groin. She has a planned repeat PET soon and tells me she has R breast follow up. No other acute issues. ROS is o/w negative Allergies Allergy/AdvReac Type Severity Reaction Status Date / Time No Known Allergies Allergy Verified 04/08/23 14:46 Home Medications Medication Instructions Recorded Confirmed Type nystatin 100,000 unit/gram topical 1 applic topical HS PRN fungal site 06/24/22 04/08/23 History powder (Nystop) atorvastatin 40 mg tablet (Lipitor) 40 mg PO QAM #90 tabs 07/06/22 04/08/23 Rx spironolactone 25 mg tablet 25 mg PO QAM #90 tabs 08/21/22 04/08/23 Rx (Aldactone) allopurinol 300 mg tablet 300 mg PO QAM 12/04/22 04/08/23 History oxycodone-acetaminophen 5 mg-325 1 tab PO Q6H PRN pain #10 tabs 12/20/22 04/08/23 Rx mg tablet (Percocet) diltiazem HCl 120 mg 120 mg PO DAILY #90 caps 01/22/23 04/08/23 Rx capsule,extended release 24 hr (Cardizem CD) pantoprazole 20 mg tablet,delayed 20 mg PO BID #180 tabs 01/22/23 04/08/23 Rx release bupropion HCl 150 mg 24 hr tablet, 150 mg PO QAM #90 tabs 01/29/23 04/08/23 Rx extended release apixaban 5 mg tablet (Eliquis) 5 mg PO BID #180 tabs 02/05/23 04/08/23 Rx digoxin 125 mcg (0.125 mg) tablet 0.125 mg PO DAILY 02/11/23 04/08/23 History (Digitek) sennosides 8.6 mg-docusate sodium 1 - 2 tab-cap PO BID PRN 02/11/23 04/08/23 Rx 50 mg tablet (Senokot-S) constipation #60 tabs cholecalciferol (vitamin D3) 25 2,000 unit PO QAM 02/19/23 04/08/23 History mcg (1,000 unit) capsule (Vitamin D3) metoprolol tartrate 50 mg tablet 50 mg PO BID #180 tabs 02/19/23 04/08/23 Rx furosemide 40 mg tablet (Lasix) 40 mg PO DAILY weight gain #180 03/18/23 04/08/23 Rx tabs amoxicillin 875 mg-potassium 1 tab PO BID 21 days #42 tabs 04/12/23 Rx clavulanate 125 mg tablet doxycycline hyclate 100 mg capsule 100 mg PO BID 21 days #42 caps 04/12/23 Rx Patient History Medical History (HFpEF) heart failure with preserved ejection fraction Abdominal discomfort, epigastric Acute blood loss anemia Anticoagulant long-term use B-cell lymphoma NEW DX B12 deficiency Carcinoid tumor PET SCAN AT [facility]> "PLANS TO TREAT FOR B CELL LYMPHOMA SHOULD TREAT CARCINOID TUMOR" Cardiac murmur Mild MR and TR per 10/2022 ECHO Chronic diastolic congestive heart failure Chronic diastolic congestive heart failure Chronic pain of inguinal region Cirrhosis Cirrhosis CKD (chronic kidney disease), stage III 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 Depression Dissection of vertebral artery pt unsure/unaware Dysuria Fatigue GERD (gastroesophageal reflux disease) GERD (gastroesophageal reflux disease) History of anemia IRON INFUSIONS IN PAST History of COVID-19 07/2022>RESOLVED History of skin cancer Hx of pancreatitis Hyperlipemia Hypertension Hypertension Iron deficiency Kidney stones CURRENT BUT NO CAUSES NO PROBLEM Lesion of ureter biopsy 12/29/2020 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 recent PET scan --- RECENT B CELL LYMPHOMA CONFIRMED Morbid obesity Nausea and vomiting Neutropenia Pancytopenia Permanent atrial fibrillation PFO (patent foramen ovale) Suspected per records Prediabetes Sleep apnea NO DEVICE SOB (shortness of breath) on exertion TIA (transient ischemic attack) 2018- [place] - no residual -NO ISSUES SINCE Surgical History H/O: hysterectomy History of bone marrow biopsy History of bowel resection WITH COLOSTOMY R/T SBO History of cardiac radiofrequency ablation D/T AFIB - PT REPORTS HAD 1 BUT MAYBE 2 - NOT SURE DATES ([facility]) History of cardioversion multiple History of colonoscopy (05/2022) History of colostomy r/t bowel blockage History of colostomy reversal History of cystoscopy History of esophagogastroduodenoscopy (EGD) History of gastric bypass History of tubal ligation History of umbilical hernia repair Hx of abdominal surgery FOR REMOVAL OF CYST - PT NOT SURE TYPE Hx of cholecystectomy Hx of laparoscopy Hx of lymph node biopsy Hx of removal of cyst Port-A-Cath in place (12/10/22) Access port placement and use of fluoroscopy. Dr. Leger S/P ureteral stent placement Family History Grandmother Diabetes Hypertension Mother Heart disease Hypertension Grandfather Stomach cancer Hypertension Father Pancreatic cancer Hypertension Other No family history of adverse response to anesthesia Denies family history of Ovarian cancer Breast cancer Colorectal cancer Social History Smoking Status: Former smoker Tobacco Type: Cigarettes Second Hand Exposure: No; Do You Dip or Chew Tobacco: No; Hx Alcohol Use: No Hx Substance Use: No Preferred Language: Kyrgyz Communication Ability: Effective Visual Impairment: No Limitations Hearing Ability: Normal Tool And Die Repair Required: No Beliefs That Will Affect Care: None marital status: Current Living Situation: Spouse Current Living Situation Comment: home with 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 status: retired 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) How many Children do You have: 1 Other 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 Helps Us Care for You: No other: DEPUTY B[employer] Feels Safe at Home: Yes Safety Concerns: Feels Safe At This Time Diet: regular caffeine: No Dental Care, Regularly: Yes Physical Activity Frequency: Does not Exercise Seatbelt Use: always Sunscreen Use: No Assistive Devices: Glasses and Walker Review of System as per HPI Physical Exam Physical Exam: NAD, pleasant R Chest mediport nontender c/d/i L groin drain with yellow fluid, serous 300cc L groin erythema Results & Data Vital Signs (Past 12 Hours) Vital Signs Temp Pulse Resp BP Pulse Ox O2 Del Method 04/12/23 11:29 36.6 C 81 18 121/69 96 Room Air 04/12/23 08:02 36.5 C 100 H 20 116/63 95 Room Air 04/12/23 03:21 36.8 C 86 16 119/71 95 Room Air Laboratory Results Laboratory Results - last 48 hr 04/11/23 04/11/23 04/11/23 07:17 07:17 Unknown WBC 2.63 L RBC 2.19 L Hgb 7.8 L Hct 23.9 L MCV 109.1 H MCH 35.6 H MCHC 32.6 RDW Std Deviation 58.4 H RDW Coeff of Rodrigo 14.6 H Plt Count 102 L MPV 10.2 Immature Gran % (Auto) 4.6 Neut % (Auto) 76.4 Lymph % (Auto) 9.1 Hettinger % (Auto) 8.7 Eos % (Auto) 0.8 Baso % (Auto) 0.4 Neut # (Auto) 2.01 Lymph # (Auto) 0.24 L Hettinger # (Auto) 0.23 Eos # (Auto) 0.02 Baso # (Auto) 0.01 Immature Gran # (Auto) 0.12 Absolute Nucleated RBC 0.02 Nucleated RBC % (auto) 0.8 Toxic Granulation 1+ Dohle Bodies 1+ Polychromasia 1+ Tear Drop Cells 1+ Ovalocytes 1+ Sodium 141 Potassium 3.7 Chloride 110 H Carbon Dioxide 25 Anion Gap 6 BUN 13 Creatinine 0.87 Est Cr Clr Drug Dosing 66.7 Est GFR ( Amer) 78.2 Est GFR (Non-Af Amer) 67.5 BUN/Creatinine Ratio 14.9 Glucose 97 Calcium 7.7 L Nasal Screen MRSA (PCR) Negative Random Vancomycin 04/12/23 04/12/23 04/12/23 06:32 06:32 13:08 WBC 2.87 L RBC 2.15 L Hgb 7.7 L Hct 23.9 L MCV 111.2 H MCH 35.8 H MCHC 32.2 RDW Std Deviation 59.9 H RDW Coeff of Rodrigo 14.7 H Plt Count 109 L MPV 10.5 Immature Gran % (Auto) 1.7 Neut % (Auto) 77.8 Lymph % (Auto) 12.2 Hettinger % (Auto) 7.7 Eos % (Auto) 0.3 Baso % (Auto) 0.3 Neut # (Auto) 2.23 Lymph # (Auto) 0.35 L Hettinger # (Auto) 0.22 Eos # (Auto) 0.01 Baso # (Auto) 0.01 Immature Gran # (Auto) 0.05 Absolute Nucleated RBC 0.03 Nucleated RBC % (auto) 1.0 Toxic Granulation Dohle Bodies 2+ Polychromasia 1+ Tear Drop Cells 1+ Ovalocytes 1+ Sodium 141 Potassium 3.6 Chloride 113 H Carbon Dioxide 24 Anion Gap 4 BUN 15 Creatinine 0.90 Est Cr Clr Drug Dosing 64.5 Est GFR ( Amer) 75.1 Est GFR (Non-Af Amer) 64.8 BUN/Creatinine Ratio 16.7 Glucose 107 H Calcium 7.8 L Nasal Screen MRSA (PCR) Random Vancomycin 19.2 Microbiology 04/08/23 13:47 Blood Aerobic Blood Culture - Preliminary No growth in Aerobic bottle after 48 hours. 04/08/23 13:47 Blood Anaerobic Blood Culture - Preliminary No growth in Anaerobic bottle after 48 hours. 04/09/23 Unknown Groin Gram Stain - Final 04/09/23 Unknown Groin Aerobic and Anaerobic Culture - Preliminary Pin-point growth present, reincubating. Medications Administered Current Inpatient Medications Acetaminophen (Acetaminophen 325 Mg Tab) 650 mg PO Q4H PRN PRN Reason: Pain or Fever Stop: 05/08/23 19:59 Allopurinol (Allopurinol 300 Mg Tab) 300 mg PO [facility] Stop: 05/09/23 08:59 Last Admin: 04/12/23 08:21 Dose: 300 mg Apixaban (Apixaban 5 Mg Tablet) 5 mg PO BID [facility] Stop: 05/11/23 08:59 Last Admin: 04/12/23 08:21 Dose: 5 mg Atorvastatin Calcium ([facility]vastatin 40 Mg Tab) [facility] [place] Stop: 05/09/23 08:59 Last Admin: 04/12/23 08:21 Dose: 40 mg Bupropion HCl (Bupropion Xl 150 Mg Tabcr) [facility] [place] Stop: 05/09/23 08:59 Last Admin: 04/12/23 08:21 Dose: 150 mg Calcium Carbonate (Calcium Carbonate 500 Mg Chewable Tab) 500 mg PO TID PRN PRN Reason: Indigestion Stop: 05/09/23 03:29 Last Admin: 04/09/23 03:39 Dose: 500 mg Digoxin (Digoxin 0.125 Mg Tab) 0.125 mg PO DAILY [facility] Stop: 05/09/23 08:59 Last Admin: 04/12/23 08:21 Dose: 0.125 mg Diltiazem HCl (Diltiazem Hcl 120 Mg Capcr) 120 mg PO DAILY JESSIE Stop: 05/09/23 08:59 Last Admin: 04/12/23 08:21 Dose: 120 mg Furosemide (Furosemide 40 Mg Tab) 40 mg PO DAILY PRN PRN Reason: Weight gain Stop: 05/12/23 08:59 Heparin Sodium (Porcine) (Heparin 100 Unit/Ml 5ml Flush) 5 ml FLUSH PRN PRN PRN Reason: Flush Stop: 05/09/23 02:37 Vancomycin HCl 750 mg/ Sodium (Chloride) 265 mls @ 200 mls/hr IV Q12H [facility]; Protocol Stop: 04/16/23 05:59 Last Infusion: 04/12/23 07:11 Dose: Infused Cefepime HCl 2,000 mg/ Syringe 20 mls @ 5 mls/min IV Q8H [facility]; Protocol Stop: 04/16/23 01:59 Last Admin: 04/12/23 09:01 Dose: 5 mls/min Metoprolol Tartrate (Metoprolol Tartrate 50 Mg Tab) 50 mg PO BID JESSIE Stop: 05/08/23 20:59 Last Admin: 04/12/23 08:21 Dose: 50 mg Miscellaneous Information (Vancomycin Consult Active) 1 each N/A UD PRN PRN Reason: Consult Stop: 05/08/23 18:27 Pantoprazole Sodium (Pantoprazole 40 Mg Tab) 40 mg PO BID [facility] Stop: 05/08/23 20:59 Vitamin D (Cholecalciferol 1,000 Units 25 Mcg Tab) 2,000 units PO QAM [facility] Stop: 05/09/23 08:59 Last Admin: 04/12/23 08:21 Dose: 2,000 units (1) Neutropenia Neutropenia type: secondary to cancer chemotherapy Qualified Code(s): D70.1 - Agranulocytosis secondary to cancer chemotherapy; T45.1X5A - Adverse effect of antineoplastic and immunosuppressive drugs, initial encounter (4) Non Hodgkin's lymphoma Non-Hodgkin lymphoma type: unspecified type
--- NOTE | 2023-04-12 15:10 | Pharmacy Report ---
Pharmacy PK ABX Note - Date of Service April 12, 2023 - Assessment and Plan Assessment 04/12: * Today is day 5 of Vancomycin therapy. * Patient is on Vancomycin 750 mg IV Q12h for L groin abscess and cellulitis. * Trough Vancomycin level obtained today 5 hrs before dose at 18:00 today 04/10/23 * Patient is s/p IR drainage of groin fluid collection yesterday, culture pending. Blood culture negative. * No plans for surgical intervention at this time * Continues with vancomycin/cefepime - awaiting final culture results 04/08/23 * 72 year old F receiving CEFEPIME/VANCOMYCIN for treatment of cellulitis/groin fluid collection. Patient with recent chemotherapy for non-Hodgkin's lymphoma, hx of antibiotics in last 90 days: cefdinir. Pertinent microbiologic data includes: remote hx of ESBL E. coli (urine). Blood cultures currently pending Plan Vancomycin * Random vancomycin level came back at ~19.2 mcg/ml today at 13:08- patient receiving vancomycin 750 mg iv q 12 hours. Next dose due at 18:00. * This is predicted to achieve target AUC/JULIANNA of 400-600 mg/L.hr * Predicted AUC at steady state: 456 mg/L.hr * Continue Vancomycin 750 mg IV q12h. * Will repeat level in the next 72 hours if therapy is continued and/or change in patient clinical status Pharmacy will continue to follow and will adjust dose/frequency as necessary. Thank you. Pharmacy has transitioned to AUC monitoring for vancomycin. AUC/JULIANNA is the preferred PK/PD target and is associated with decreased risk of nephrotoxicity compared to traditional trough targets.
[2023-04-12] MEDS ORDERED: PANTOprazole 40 MG TAB PO SCH (21:00)
== END 2023-04-12 16:50 | disposition home or self-care (01) | DRG 871 ==
LOC: ED 12:09 → 2N 18:22 → SUATTDRO 18:22 → 2N 20:04

== ENCOUNTER 2023-06-15 03:53 | Inpatient (IN) ==
--- NOTE | 2023-06-15 04:23 | Emergency Department Note ---
History of Present Illness General Chief complaint: Abdominal Pain Stated complaint: ABD PAIN,VOMITING Time Seen by Provider: 06/15/23 04:20 History of Present Illness Maximum Pain Intensity: 10 This 73-year-old female patient presents to the emergency department with her for evaluation of abdominal pain and vomiting that started a few hours ago. Started in the periumbilical area, but has now spread to the rest of her abdomen. Has had 3 episodes of vomiting so far. Denies any urinary symptoms. Typically has loose stools 3 times a day. No recent change in her BMs. Denies chest pain, but has some SOB from the pain. She has a history of CHF. She has had intermittent abdominal pain over the past couple months, but today the pain is much more severe and seems different than usual. She has a history of pancreatitis in the past. She is status postcholecystectomy. She has a history of Non-Hodgkins Lymphoma with a known mass in her abdomen. They are unable to operate on the mass due to the location. She finished chemo approximately 1 month ago for treatment. Recently had a PET scan, but did not get results yet per patient. She took one of her Morphine pills without relief. She states that the oxycodone that she has works better, but she has run out. She rates her discomfort as 10/10. Home Medications Medication Instructions Recorded Confirmed Type spironolactone 25 mg tablet 25 mg PO QAM #90 tabs 08/21/22 06/15/23 Rx (Aldactone) allopurinol 300 mg tablet 300 mg PO QAM 12/04/22 06/15/23 History diltiazem HCl 120 mg 120 mg PO DAILY #90 caps 01/22/23 06/15/23 Rx capsule,extended release 24 hr (Cardizem CD) pantoprazole 20 mg tablet,delayed 20 mg PO BID #180 tabs 01/22/23 06/15/23 Rx release bupropion HCl 150 mg 24 hr tablet, 150 mg PO QAM #90 tabs 01/29/23 06/15/23 Rx extended release apixaban 5 mg tablet (Eliquis) 5 mg PO BID #180 tabs 02/05/23 06/15/23 Rx digoxin 125 mcg (0.125 mg) tablet 0.125 mg PO DAILY 02/11/23 06/15/23 History (Digitek) sennosides 8.6 mg-docusate sodium 1 - 2 tab-cap PO BID PRN 02/11/23 06/15/23 Rx 50 mg tablet (Senokot-S) constipation #60 tabs cholecalciferol (vitamin D3) 25 2,000 unit PO QAM 02/19/23 06/15/23 History mcg (1,000 unit) capsule (Vitamin D3) metoprolol tartrate 50 mg tablet 50 mg PO BID #180 tabs 02/19/23 06/15/23 Rx ondansetron 8 mg disintegrating 8 mg translingual Q8H 05/09/23 06/15/23 History tablet nausea/vomitting prochlorperazine maleate 10 mg 10 mg PO Q6H PRN Nausea 05/09/23 06/15/23 History tablet atorvastatin 40 mg tablet (Lipitor) 40 mg PO QAM #90 tabs 06/07/23 06/15/23 Rx Allergies Allergy/AdvReac Type Severity Reaction Status Date / Time No Known Allergies Allergy Verified 06/15/23 07:00 Past Med/Surg History Medical History (HFpEF) heart failure with preserved ejection fraction Abdominal discomfort, epigastric Acute blood loss anemia Anticoagulant long-term use B-cell lymphoma NEW DX B12 deficiency Carcinoid tumor PET SCAN AT [facility]> "PLANS TO TREAT FOR B CELL LYMPHOMA SHOULD TREAT CARCINOID TUMOR" Cardiac murmur Mild MR and TR per 10/2022 ECHO Chronic diastolic congestive heart failure Chronic diastolic congestive heart failure Chronic pain of inguinal region Cirrhosis Cirrhosis CKD (chronic kidney disease), stage III Current use of detention anticoagulation Depression Dissection of vertebral artery pt unsure/unaware Dysuria Fatigue GERD (gastroesophageal reflux disease) GERD (gastroesophageal reflux disease) History of anemia IRON INFUSIONS IN PAST History of COVID-19 07/2022>RESOLVED History of skin cancer Hx of pancreatitis Hyperlipemia Hypertension Hypertension Iron deficiency Kidney stones CURRENT BUT NO CAUSES NO PROBLEM Lesion of ureter biopsy 12/29/2020 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 recent PET scan --- RECENT B CELL LYMPHOMA CONFIRMED Morbid obesity Nausea and vomiting Neutropenia Pancytopenia Permanent atrial fibrillation PFO (patent foramen ovale) Suspected per records Prediabetes Sleep apnea NO DEVICE SOB (shortness of breath) on exertion TIA (transient ischemic attack) 2018- [place] - no residual -NO ISSUES SINCE Surgical History H/O: hysterectomy History of bone marrow biopsy History of bowel resection WITH COLOSTOMY R/T SBO History of cardiac radiofrequency ablation D/T AFIB - PT REPORTS HAD 1 BUT MAYBE 2 - NOT SURE DATES ([facility]) History of cardioversion multiple History of colonoscopy (05/2022) History of colostomy r/t bowel blockage History of colostomy reversal History of cystoscopy History of esophagogastroduodenoscopy (EGD) History of gastric bypass History of tubal ligation History of umbilical hernia repair Hx of abdominal surgery FOR REMOVAL OF CYST - PT NOT SURE TYPE Hx of cholecystectomy Hx of laparoscopy Hx of lymph node biopsy Hx of removal of cyst Port-A-Cath in place (12/10/22) Access port placement and use of fluoroscopy. Dr. Leger S/P ureteral stent placement Family History Grandmother Diabetes Hypertension Mother Heart disease Hypertension Grandfather Stomach cancer Hypertension Father Pancreatic cancer Hypertension Other No family history of adverse response to anesthesia Denies family history of Ovarian cancer Breast cancer Colorectal cancer Social History Smoking Status: Former smoker Tobacco Type: Cigarettes Second Hand Exposure: No; Do You Dip or Chew Tobacco: No; Hx Alcohol Use: No Hx Substance Use: No Preferred Language: Luxembourgish Communication Ability: Effective Visual Impairment: No Limitations Hearing Ability: Normal Channel Rebuilder Required: No Beliefs That Will Affect Care: None marital status: Current Living Situation: Spouse Current Living Situation Comment: home with 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 status: retired 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 Physical Exam Vital Signs Vital Signs - 24 hr 06/15/23 04:00 06/15/23 04:19 06/15/23 04:20 Temperature 36.4 C L Temperature Source Temporal Artery Scan Pulse Rate 111 H 103 H 113 H Pulse Rate from SpO2 Sensor 91 H 107 H Respiratory Rate 20 20 19 Blood Pressure 158/108 H Blood Pressure Mean 124 Pulse Oximetry 98 96 96 Oxygen Delivery Method Room Air Room Air Room Air Sepsis Recent Fever Within 48 Hours No Sepsis New/Unexplained Change in Mental Status No Sepsis Action Taken by Nursing No Action Required 06/15/23 04:30 06/15/23 04:40 06/15/23 04:50 Temperature Temperature Source Pulse Rate 132 H 106 H 113 H Pulse Rate from SpO2 Sensor 94 H 97 H 105 H Respiratory Rate 22 17 16 Blood Pressure 145/104 H Blood Pressure Mean 117 Pulse Oximetry 97 97 96 Oxygen Delivery Method Room Air Sepsis Recent Fever Within 48 Hours Sepsis New/Unexplained Change in Mental Status Sepsis Action Taken by Nursing 06/15/23 05:00 06/15/23 04:18 06/15/23 05:30 Temperature Temperature Source Pulse Rate 103 H 114 H 117 H Pulse Rate from SpO2 Sensor 109 H Respiratory Rate 21 19 Blood Pressure 133/113 H 152/108 H Blood Pressure Mean 119 122 Pulse Oximetry 96 93 Oxygen Delivery Method Room Air Room Air Sepsis Recent Fever Within 48 Hours Sepsis New/Unexplained Change in Mental Status Sepsis Action Taken by Nursing 06/15/23 05:58 06/15/23 06:05 06/15/23 06:10 Temperature Temperature Source Pulse Rate 105 H 97 H 105 H Pulse Rate from SpO2 Sensor 108 H 104 H 96 H Respiratory Rate 20 22 19 Blood Pressure 142/98 H 136/80 Blood Pressure Mean 112 98 Pulse Oximetry 97 97 95 Oxygen Delivery Method Room Air Room Air Sepsis Recent Fever Within 48 Hours Sepsis New/Unexplained Change in Mental Status Sepsis Action Taken by Nursing 06/15/23 07:00 06/15/23 08:00 06/15/23 08:25 Temperature Temperature Source Pulse Rate 76 69 84 Pulse Rate from SpO2 Sensor Respiratory Rate 16 20 Blood Pressure 151/101 H 137/68 Blood Pressure Mean 117 91 Pulse Oximetry 98 96 Oxygen Delivery Method Sepsis Recent Fever Within 48 Hours Sepsis New/Unexplained Change in Mental Status Sepsis Action Taken by Nursing VITALS: Vitals are noted on the nurse's note and reviewed by myself. GENERAL: Non toxic, no acute distress, non-diaphoretic. SKIN: Capillary refill <2 sec. EYES: PERRLA. EOMI. Conjunctivae without injection, sclerae without icterus. NOSE: Patent without discharge. MOUTH: Mucous membranes moist. Uvula midline. Airway patent. NECK: Supple without nuchal rigidity. HEART: Regular rate and rhythm without murmurs gallops or rubs. LUNGS: Clear to auscultation bilaterally without wheezes, rales or rhonchi. No retractions or accessory muscle use. ABDOMEN: Positive bowel sounds x 4. Normal tympanic percussion. Soft, diffusely tender to palpation over the entire abdomen. No masses or organomegal y. Hanna sign negative. No CVA tenderness. No guarding or rebound tenderness. No focal RLQ or LLQ tenderness. NEURO: Patient was alert and oriented to person place and time. No focal neurological deficits. Course Administered Medications Discontinued Medications Diltiazem HCl (Diltiazem Hcl 5 Mg/Ml 5 Ml Vial) 10 mg IV NOW STA Stop: 06/15/23 06:07 Last Admin: 06/15/23 06:11 Dose: 10 mg Documented By: YELENA Co-signed By: JEAN-CLAUDE Sodium Chloride (Nss) 500 mls @ 999 mls/hr IV .Q31M STA Stop: 06/15/23 05:01 Last Infusion: 06/15/23 05:19 Dose: 0 mls/hr Documented By: Admin: 06/15/23 04:46 Dose: 999 mls/hr Documented By: YELENA Ioversol (Optiray 320 100ml) 93 ml IV ONCE ONE Stop: 06/15/23 05:55 Last Admin: 06/15/23 05:50 Dose: 93 ml Documented By: GRIFFIN Morphine Sulfate (Morphine Sulfate 4 Mg/Ml 1 Ml Carp\\Vial) 4 mg IV NOW STA Stop: 06/15/23 04:32 Last Admin: 06/15/23 04:45 Dose: 4 mg Documented By: YELENA Ondansetron HCl (Ondansetron Inj 2 Mg/Ml 2 Ml Vial) 4 mg IV NOW STA Stop: 06/15/23 04:32 Last Admin: 06/15/23 04:46 Dose: 4 mg Documented By: YELENA Medical Decision Making Differential Diagnosis Differential diagnosis includes hepatitis, pancreatitis, cholecystitis, cholelithiasis, appendicitis, kidney stone, pyelonephritis, UTI, gastritis, gastroenteritis, mesenteric adenitis, obstruction, constipation, hernia, abdominal abscess, perforation, diverticulitis, IBD, ischemic colitis, abdominal aortic aneurysm, or others. Laboratory Data Attestation: I reviewed the patient's lab results. 06/15/23 04:40 06/15/23 04:40 Lab Results 06/15/23 06/15/23 06/15/23 Range/Units 04:17 04:40 04:40 WBC 6.39 (4.8-10.8) K/ul RBC 2.85 L (4.20-5.40) M/uL Hgb 10.3 L (12.0-16.0) g/dl Hct 31.7 L (37.0-47.0) % MCV 111.2 H (80.0-100.0) fL MCH 36.1 H (25.0-34.0) pg MCHC 32.5 (32.0-36.0) g/dL RDW Std Deviation 61.7 H (36.4-46.3) fL RDW Coeff of Rodrigo 15.0 H (11.5-14.5) % Plt Count 163 (130-400) K/uL MPV 9.4 (9.4-12.4) fL Immature Gran % (Auto) 0.5 % Neut % (Auto) 84.9 % Lymph % (Auto) 6.3 % [place] % (Auto) 7.8 % Eos % (Auto) 0.3 % Baso % (Auto) 0.2 % Neut # (Auto) 5.43 (1.40-6.50) K/uL Lymph # (Auto) 0.40 L (1.2-3.4) K/uL [place] # (Auto) 0.50 (0.11-0.59) K/uL Eos # (Auto) 0.02 (0-0.50) K/uL Baso # (Auto) 0.01 (0-0.2) K/uL Immature Gran # (Auto) 0.03 (0.01-0.20) K/uL Polychromasia 1+ Poikilocytosis Present Macrocytosis Present Sodium 141 (136-145) mmol/L Potassium 4.1 (3.5-5.1) mmol/L Chloride 113 H (98-107) mmol/L Carbon Dioxide 21 (21-32) mmol/L Anion Gap 7 (3-11) BUN 21 (6-23) mg/dl Creatinine 0.99 (0.6-1.2) mg/dl Est Cr Clr Drug Dosing 57.2 ml/min Est GFR ( Amer) 66.4 ml/min Est GFR (Non-Af Amer) 57.3 ml/min BUN/Creatinine Ratio 21.2 H (10-20) Glucose 141 H (70-99(Fasting)) mg/dl Lactate (0.4-2.0) mmol/L Calcium 8.4 L (8.6-10.3) mg/dl Total Bilirubin 0.9 (0.2-1.0) mg/dl AST 72 H (13-39) U/L ALT 34 (7-52) U/L Alkaline Phosphatase 128 H (34-104) U/L Troponin I High Sens 93.3 H* (0-14) pg/ml Total Protein 6.2 (6.0-8.3) gm/dl Albumin 3.7 (3.4-5.0) gm/dl Globulin 2.5 (2.5-4.0) gm/dl Albumin/Globulin Ratio 1.5 (0.9-2) Lipase 683 H (11-82) U/L Urine Color Yellow Urine Appearance Cloudy A (Clear) Urine pH 5.0 (4.5-7.5) Ur Specific [place]son 1.018 (1.000-1.030) Urine Protein Negative (Negative) Urine Glucose (UA) Negative (Negative) Urine Ketones Negative (Negative) Urine Blood Negative (Negative) Urine Nitrite Negative (Negative) Urine Bilirubin Negative (Negative) Urine Urobilinogen Negative (Negative) Ur Leukocyte Esterase Trace H (Negative) Urine WBC (Auto) 1-5 (0-5) /hpf Urine RBC (Auto) 0-4 (0-4) /hpf U Hyaline Cast (Auto) 1-5 (0-5) /lpf U Epithel Cells (Auto) >30 H (0-5) /lpf Urine Bacteria (Auto) Negative (Negative) SARS-CoV-2, RNA, NAAT (NEGATIVE) 06/15/23 06/15/23 06/15/23 Range/Units 04:40 04:40 06:40 WBC (4.8-10.8) K/ul RBC (4.20-5.40) M/uL Hgb (12.0-16.0) g/dl Hct (37.0-47.0) % MCV (80.0-100.0) fL MCH (25.0-34.0) pg MCHC (32.0-36.0) g/dL RDW Std Deviation (36.4-46.3) fL RDW Coeff of Rodrigo (11.5-14.5) % Plt Count (130-400) K/uL MPV (9.4-12.4) fL Immature Gran % (Auto) % Neut % (Auto) % Lymph % (Auto) % [place] % (Auto) % Eos % (Auto) % Baso % (Auto) % Neut # (Auto) (1.40-6.50) K/uL Lymph # (Auto) (1.2-3.4) K/uL [place] # (Auto) (0.11-0.59) K/uL Eos # (Auto) (0-0.50) K/uL Baso # (Auto) (0-0.2) K/uL Immature Gran # (Auto) (0.01-0.20) K/uL Polychromasia Poikilocytosis Macrocytosis Sodium (136-145) mmol/L Potassium (3.5-5.1) mmol/L Chloride (98-107) mmol/L Carbon Dioxide (21-32) mmol/L Anion Gap (3-11) BUN (6-23) mg/dl Creatinine (0.6-1.2) mg/dl Est Cr Clr Drug Dosing ml/min Est GFR ( Amer) ml/min Est GFR (Non-Af Amer) ml/min BUN/Creatinine Ratio (10-20) Glucose (70-99(Fasting)) mg/dl Lactate 1.6 (0.4-2.0) mmol/L Calcium (8.6-10.3) mg/dl Total Bilirubin (0.2-1.0) mg/dl AST (13-39) U/L ALT (7-52) U/L Alkaline Phosphatase (34-104) U/L Troponin I High Sens 82.9 H* D (0-14) pg/ml Total Protein (6.0-8.3) gm/dl Albumin (3.4-5.0) gm/dl Globulin (2.5-4.0) gm/dl Albumin/Globulin Ratio (0.9-2) Lipase (11-82) U/L Urine Color Urine Appearance (Clear) Urine pH (4.5-7.5) Ur Specific [place] (1.000-1.030) Urine Protein (Negative) Urine Glucose (UA) (Negative) Urine Ketones (Negative) Urine Blood (Negative) Urine Nitrite (Negative) Urine Bilirubin (Negative) Urine Urobilinogen (Negative) Ur Leukocyte Esterase (Negative) Urine WBC (Auto) (0-5) /hpf Urine RBC (Auto) (0-4) /hpf U Hyaline Cast (Auto) (0-5) /lpf U Epithel Cells (Auto) (0-5) /lpf Urine Bacteria (Auto) (Negative) SARS-CoV-2, RNA, NAAT NEGATIVE (NEGATIVE) Imaging Data Attestation: I personally reviewed and interpreted this imaging study as fol lows: My Impression: Chest x-ray was reviewed by myself as Cardiomegaly with mild congestive change, but no acute changes from previous chest x-ray. Radiology report still pending Radiologist's Impression: Abdomen/Pelvis CT 06/15/23 04:[address] WITH IV CONTRAST CT DOSE: 1322.95 mGy.cm HISTORY: Generalized abdominal pain, nausea, vomiting TECHNIQUE: Multiaxial CT images of the abdomen and pelvis were performed following the use of intravenous contrast. A dose lowering technique was ut ilized adhering to the principles of ALARA. COMPARISON STUDY: Abdomen and pelvis CT 05/09/2023. PET CT 06/05/2023. FINDINGS: There is a small right pleural effusion, unchanged. No pneumoperitoneum. No pneumatosis. No suspicious lytic or blastic osseous lesions. The heart remains mildly enlarged. The left groin fluid collection appears to have decreased in size. This is only partially imaged on this study. The left inguinal lymphadenopathy has also improved. Cholecystectomy. This likely accounts for the mild bile duct dilatation. This remains unchanged. No hepatic masses. The main portal vein is patent. The spleen is normal in size. The adrenal glands and pancreas are unremarkable. Multiple bilateral renal hypodense lesions again noted. These likely represent cysts. There is left-sided nephrolithiasis. No ureteral stones. No hydronephrosis. Calcified plaque within the normal caliber abdominal aorta. Ill-defined soft tissue encasing the right renal vessels and adjacent to the superior mesenteric vessels remains unchanged. Otherwise, no retroperitoneal or pelvic lymphadenopathy. The bladder is unremarkable. Prior hysterectomy. No pelvic free fluid. Colonic diverticulosis. No evidence for acute diverticulitis. Normal appendix. Postoperative changes consistent with prior gastric bypass. Focal dilatation within the proximal duodenum at the anastomotic suture. This is similar to the 04/08/2023 CT examination. Therefore, this is likely transient. Otherwise, no dilated loops of bowel to suggest an obstruction. No bowel wall thickening identified. IMPRESSION: 1. Interval decrease in size in the left groin fluid collection and improvement in the left inguinal lymphadenopathy. 2. Small right pleural effusion, unchanged. 3. No change in the ill-defined soft tissue thickening within the central mesentery and surrounding the right renal vessels. This suggests residual lymphoma/treated disease. 4. No new/progressive lymphadenopathy identified. 5. Left-sided nephrolithiasis. No hydronephrosis. 6. No definite bowel wall thickening or obstruction. 7. Focal dilatation within the proximal duodenum is similar to the prior studies. Therefore, this is likely transient. A. Colonic diverticulosis. No evidence for acute diverticulitis. 9. Additional findings as described above. ACT 112: Negative or not required by law. Electronically signed by: Sky Gardner M.D. 06/15/2023 7:58 AM Chest X-Ray 06/15/23 04:33 XR chest 1V portable HISTORY: Shortness of breath. Generalized abdominal pain. COMPARISON: Chest 05/09/2023. FINDINGS: No pneumothorax. A trace right pleural effusion persists. The heart is enlarged. A few bibasilar linear densities favor subsegmental atelectasis. The upper lung zones remain clear. There is mild pulmonary vascular congestion without overt edema. A right subclavian Port-A-Cath remains in the SVC. IMPRESSION: Cardiomegaly with mild congestive change and a trace right pleural effusion. This is similar to the prior study. ACT 112: Negative or not required by law. Electronically signed by: Sky Gardner M.D. 06/15/2023 8:02 AM MDM Narrative I examined the patient. An IV lock was placed and labs were drawn. She was given a total of 500 mL normal saline solution bolus. She was given morphine 4 mg IV and Zofran 4 mg IV with improvement of her pain and nausea. Initial EKG was interpreted by marionelf and Dr. Davison as A-fib with RVR at 110 bpm, but no acute ST or T wave changes. Repeat EKG was interpreted by myself and Dr. Davison as A-fib with RVR at 113 bpm, but no acute ST or T wave changes. Continuous manager nursing: Order was placed for continuous manager nursing. Patient was placed on the manager nursing and continuous pulse ox. Patient was noted to be in A-fib with RVR ranging from 100 to 117 bpm per my interpretation. The patient was given Cardizem 10 mg IV with improvement of her hypertension as well as her heart rate. White blood cell count normal at 6.39. Hemoglobin improved at 10.3. Platelet count normal at 163. Glucose 141, AST 72, and alk phos 128, but CMP otherwise essentially unremarkable. Lactate and procalcitonin are normal. Lipase elevated at 683. Urinalysis negative for UTI. COVID-negative. Initial high- sensitivity troponin elevated at 93.3. Repeat high-sensitivity troponin improved to 82.9. Chest x-ray was interpreted by myself as cardiomegaly with congestive change, but no acute abnormalities compared to her previous chest x-ray. Radiology rep ort still pending. CT scan of the abdomen pelvis with IV contrast was reviewed by myself and read by radiology as above. Pancreas is normal. Minimal decrease in size in the left groin fluid collection and improvement in the left inguinal lymphadenopathy. Small right pleural effusion which is unchanged. No change in the ill-defined soft tissue thickening within the central mesentery and surroun ding the right renal vessels. This suggests residual lymphoma/treated disease. No new or progressive lymphadenopathy identified. Focal dilation within the proximal duodenum was similar to prior studies. No other acute abnormalities. The patient's elevated troponin may be secondary to her A-fib with RVR, but cannot rule out NSTEMI at this time. While the patient's pancreas is normal on CT scan, her lipase is elevated and she has a history of pancreatitis. Pancreatitis could be the cause of her symptoms. The patient has a history of CHF and I was cautious with IV hydration. The patient has been n.p.o. while in the emergency department. I had a meaningful discussion about this patient with Dr. Davison who agrees with my assessment and the treatment plan. We feel the patient requires admission for further evaluation and treatment. I spoke with the on-call hospitalist who agreed to admit the patient. Please refer to their dictation for further details. The patient's care was transferred in stable condition. Impression & Plan Abdominal pain, Non Hodgkin's lymphoma, Nausea & vomiting, Elevated troponin, Elevated lipase Discharge Plan Visit Data Chief Complaint: Abdominal Pain Stated Complaint: ABD PAIN,VOMITING ED Provider: Ludivina Davison ED Midlevel Provider: Rosy Gifford Discharge Problem: Abdominal pain, Non Hodgkin's lymphoma, Nausea & vomiting, Elevated troponin, Elevated lipase Forms Stand Alone Forms: My [facility] Prescriptions Prescriptions: No Action spironolactone [Aldactone] 25 mg tablet 25 mg PO QAM Qty: 90 3RF diltiazem HCl [Cardizem CD] 120 mg capsule,extended release 24hr 120 mg PO DAILY Qty: 90 3RF pantoprazole 20 mg tablet,delayed release (DR/EC) 20 mg PO BID Qty: 180 3RF bupropion HCl 150 mg tablet extended release 24 hr 150 mg PO QAM Qty: 90 3RF Eliquis 5 mg tablet 5 mg PO BID Qty: 180 3RF cholecalciferol (vitamin D3) [Vitamin D3] 25 mcg (1,000 unit) capsule 2,000 unit PO QAM atorvastatin [Lipitor] 40 mg tablet 40 mg PO QAM Qty: 90 3RF allopurinol 300 mg tablet 300 mg PO QAM metoprolol tartrate 50 mg tablet 50 mg PO BID Qty: 180 3RF prochlorperazine maleate 10 mg tablet 10 mg PO Q6H PRN (Reason: Nausea) ondansetron 8 mg tablet,disintegrating 8 mg translingual Q8H sennosides-docusate sodium [Senokot-S] 8.6-50 mg tablet 1 - 2 tab-cap PO BID PRN (Reason: constipation) Qty: 60 2RF digoxin [Digitek] 125 mcg (0.125 mg) tablet 0.125 mg PO DAILY Referrals Referrals: Christopher Guevara MD [Primary Care Provider] -
[2023-06-15] MEDS ORDERED: ONDANSETRON INJ 2 MG/ML 2 ML VIAL IV STA (04:31)
[2023-06-15] MEDS ORDERED: MoRPHine SULFATE 4 MG/ML 1 ML CARP\\VIAL IV STA (04:31)
[2023-06-15] MEDS ORDERED: SODIUM CHLORIDE 0.9% 500 ML IV STA (04:31)
[2023-06-15 04:46] LABS: Appearance Urine Cloudy (Clear); Bacteria Urine Automated Negative (Negative); Bilirubin Urine Negative (Negative); Blood Urine Negative (Negative); Color Urine Yellow; Epithelial Cell Urine Auto >30 /lpf (0-5); Glucose Urine UA Negative (Negative); Ketones Urine Negative (Negative); Leukocyte Esterase Urine Trace (Negative); Nitrite Urine Negative (Negative); Protein Urine Negative (Negative); RBC Urine Automated 0-4 /hpf (0-4); Specific Gravity Urine 1.018 (1.000-1.030); Urobilinogen Urine Negative (Negative)
[2023-06-15 05:23] LABS: Basophils # (auto) 0.01 K/uL (0-0.2); Basophils % (auto) 0.2 %; Eosinophils # (auto) 0.02 K/uL (0-0.50); Eosinophils % (auto) 0.3 %; Hematocrit (blood only) 31.7 % (37.0-47.0); Hemoglobin 10.3 g/dl (12.0-16.0); Immature Granulocytes # (auto) 0.03 K/uL (0.01-0.20); Immature Granulocytes % (auto) 0.5 %; Lymphocytes % (auto) 6.3 %; Mean Corpuscular Hemoglobin 36.1 pg (25.0-34.0); Mean Corpuscular Hgb Conc 32.5 g/dL (32.0-36.0); Mean Corpuscular Volume 111.2 fL (80.0-100.0); Mean Platelet Volume 9.4 fL (9.4-12.4); Monocytes % (auto) 7.8 %; Neutrophils # (auto) 5.43 K/uL (1.40-6.50); Neutrophils % (auto) 84.9 %; Platelet Count 163 K/uL (130-400); RDW Standard Deviation 61.7 fL (36.4-46.3); Red Blood Count 2.85 M/uL (4.20-5.40); White Blood Count 6.39 K/ul (4.8-10.8)
[2023-06-15 05:31] LABS: BUN Creatinine Ratio 21.2 (10-20); Calcium 8.4 mg/dl (8.6-10.3); Creatinine Clr Calc Pharmacy 57.2 ml/min; Est GFR (African American) 66.4 ml/min; Est GFR (Non-African American) 57.3 ml/min; Potassium 4.1 mmol/L (3.5-5.1)
[2023-06-15 05:43] LABS: Albumin Globulin Ratio 1.5 (0.9-2); Albumin Level 3.7 gm/dl (3.4-5.0); Bilirubin,Total 0.9 mg/dl (0.2-1.0); Globulin 2.5 gm/dl (2.5-4.0); Total Protein 6.2 gm/dl (6.0-8.3); Troponin I High Sensitivity 93.3 pg/ml (0-14)
[2023-06-15 05:54] LABS: Macrocytosis Present; Poikilocytosis Present; Polychromasia 1+
[2023-06-15] MEDS ORDERED: OPTIRAY 320 100ml IV ONE (05:54)
[2023-06-15] MEDS ORDERED: dilTIAZem HCl 5 MG/ML 5 ML VIAL IV STA (06:06)
--- NOTE | 2023-06-15 08:00 | CT Scan Report ---
ABDOMEN AND PELVIS CT WITH IV CONTRAST CT DOSE: 1322.95 mGy.cm HISTORY: Generalized abdominal pain, nausea, vomiting TECHNIQUE: Multiaxial CT images of the abdomen and pelvis were performed following the use of intrave nous contrast. A dose lowering technique was utilized adhering to the principles of ALARA. COMPARISON STUDY: Abdomen and pelvis CT 05/09/2023. PET CT 06/05/2023. FINDINGS: There is a small right pleural effusion, unchanged. No pneumoperitoneum. No pneumatosis. No suspicious lytic or blastic osseous lesions. The heart remains mildly enlarged. The left groin fluid collection appears to have decreased in size. This is only partially imaged on this study. The left inguinal lymphadenopathy has also improved. Cholecystectomy. This likely accounts for the mild bile d uct dilatation. This remains unchanged. No hepatic masses. The main portal vein is patent. The spleen is normal in size. The adrenal glands and pancreas are unremarkable. Multiple bilateral renal hypode nse lesions again noted. These likely represent cysts. There is left-sided nephrolithiasis. No ureter al stones. No hydronephrosis. Calcified plaque within the normal caliber abdominal aorta. Ill-defined soft tissue encasing the right renal vessels and adjacent to the superior mesenteric vessels remains unchanged. Otherwise, no retroperitoneal or pelvic lymphadenopathy. The bladder is unremarkable. Lisa or hysterectomy. No pelvic free fluid. Colonic diverticulosis. No evidence for acute diverticulitis. Normal appendix. Postoperative changes consistent with prior gastric bypass. Focal dilatation within the proximal duodenum at the anastomotic suture. This is similar to the 04/08/2023 CT examination. Ther efore, this is likely transient. Otherwise, no dilated loops of bowel to suggest an obstruction. No b owel wall thickening identified. IMPRESSION: 1. Interval decrease in size in the left groin fluid collection and improvement in the left inguinal lymphadenopathy. 2. Small right pleural effusion, unchanged. 3. No change in the ill-defined soft tissue thickening within the central mesentery and surrounding t he right renal vessels. This suggests residual lymphoma/treated disease. 4. No new/progressive lymphadenopathy identified. 5. Left-sided nephrolithiasis. No hydronephrosis. 6. No definite bowel wall thickening or obstruction. 7. Focal dilatation within the proximal duodenum is similar to the prior studies. Therefore, this is likely transient. A. Colonic diverticulosis. No evidence for acute diverticulitis. 9. Additional findings as described above. ACT 112: Negative or not required by law. Electronically signed by: Sky Gardner M.D. 06/15/2023 7:58 AM
--- NOTE | 2023-06-15 08:04 | XRay Report ---
XR chest 1V portable HISTORY: Shortness of breath. Generalized abdominal pain. COMPARISON: Chest 05/09/2023. FINDINGS: No pneumothorax. A trace right pleural effusion persists. The heart is enlarged. A few biba silar linear densities favor subsegmental atelectasis. The upper lung zones remain clear. There is mi ld pulmonary vascular congestion without overt edema. A right subclavian Port-A-Cath remains in the S VC. IMPRESSION: Cardiomegaly with mild congestive change and a trace right pleural effusion. This is similar to the p rior study. ACT 112: Negative or not required by law. Electronically signed by: Sky Gardner M.D. 06/15/2023 8:02 AM
--- NOTE | 2023-06-15 08:24 | History & Physical Report ---
Date of Service June 15, 2023 Assessment & Plan (1) Abdominal pain: Plan: likely acute pancreatitits mildy elevated lipase. will try NPO, and wiull place on IV fluid will closely monitor abdominal pain. Pancreatitis does not fit exact clinical history. will obtain mesenteric ultrasound will monitor pain (2) Elevated lipase: Plan: as above (3) Cirrhosis: Plan: Spironolactone/Lasix on hold. Monitor for ascites on IV fluids. (4) A-fib: Plan: Continue rate control wiht metoprolol, digoxin and diltiazem on eliquis (5) (HFpEF) heart failure with preserved ejection fraction: Plan: stable History of Present Illness Chief Complaint: abdominal pain Primary Care Provider: Christopher Guevara MD 73 yo female reports worsening abdominal pain. Patient reports having pain in her abdomen epsigastric region whcih worsened over the past day. Patient reports though that this pain has gia ongoing for he past few months and has become more frequent over the past 2 weeks. Pain is now daily. The intensity of the pain worsened over the past 24 hours which prompted her to come in. Patient reports that she has had weight loss over the past 3 months due to a decreased appetite. She reports her pain worsene almost immediately after finishing her meals. Allergies Allergy/AdvReac Type Severity Reaction Status Date / Time No Known Allergies Allergy Verified 06/15/23 07:00 Home Medications Medication Instructions Recorded Confirmed Type spironolactone 25 mg tablet 25 mg PO QAM #90 tabs 08/21/22 06/15/23 Rx (Aldactone) allopurinol 300 mg tablet 300 mg PO QAM 12/04/22 06/15/23 History diltiazem HCl 120 mg 120 mg PO DAILY #90 caps 01/22/23 06/15/23 Rx capsule,extended release 24 hr (Cardizem CD) pantoprazole 20 mg tablet,delayed 20 mg PO BID #180 tabs 01/22/23 06/15/23 Rx release bupropion HCl 150 mg 24 hr tablet, 150 mg PO QAM #90 tabs 01/29/23 06/15/23 Rx extended release apixaban 5 mg tablet (Eliquis) 5 mg PO BID #180 tabs 02/05/23 06/15/23 Rx digoxin 125 mcg (0.125 mg) tablet 0.125 mg PO DAILY 02/11/23 06/15/23 History (Digitek) sennosides 8.6 mg-docusate sodium 1 - 2 tab-cap PO BID PRN 02/11/23 06/15/23 Rx 50 mg tablet (Senokot-S) constipation #60 tabs cholecalciferol (vitamin D3) 25 2,000 unit PO QAM 02/19/23 06/15/23 History mcg (1,000 unit) capsule (Vitamin D3) metoprolol tartrate 50 mg tablet 50 mg PO BID #180 tabs 02/19/23 06/15/23 Rx ondansetron 8 mg disintegrating 8 mg translingual Q8H 05/09/23 06/15/23 History tablet nausea/vomitting prochlorperazine maleate 10 mg 10 mg PO Q6H PRN Nausea 05/09/23 06/15/23 History tablet atorvastatin 40 mg tablet (Lipitor) 40 mg PO QAM #90 tabs 06/07/23 06/15/23 Rx Past Med/Surg History Medical History (Updated 06/16/23 @ 22:33 by Devon Ventura) (HFpEF) heart failure with preserved ejection fraction Abdominal discomfort, epigastric Acute blood loss anemia Anticoagulant long-term use B-cell lymphoma NEW DX B12 deficiency Carcinoid tumor PET SCAN AT [facility]> "PLANS TO TREAT FOR B CELL LYMPHOMA SHOULD TREAT CARCINOID TUMOR" Cardiac murmur Mild MR and TR per 10/2022 ECHO Chronic diastolic congestive heart failure Chronic diastolic congestive heart failure Chronic pain of inguinal region Cirrhosis Cirrhosis CKD (chronic kidney disease), stage III Current use of assisted anticoagulation Depression Dissection of vertebral artery pt unsure/unaware Dysuria Fatigue GERD (gastroesophageal reflux disease) GERD (gastroesophageal reflux disease) History of anemia IRON INFUSIONS IN PAST History of COVID-19 07/2022>RESOLVED History of skin cancer Hx of pancreatitis Hyperlipemia Hypertension Hypertension Iron deficiency Kidney stones CURRENT BUT NO CAUSES NO PROBLEM Lesion of ureter biopsy 12/29/2020 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 recent PET scan --- RECENT B CELL LYMPHOMA CONFIRMED Morbid obesity Nausea and vomiting Neutropenia Pancytopenia Permanent atrial fibrillation PFO (patent foramen ovale) Suspected per records Prediabetes Sleep apnea NO DEVICE SOB (shortness of breath) on exertion TIA (transient ischemic attack) 2018- [place] - no residual -NO ISSUES SINCE Surgical History H/O: hysterectomy History of bone marrow biopsy History of bowel resection WITH COLOSTOMY R/T SBO History of cardiac radiofrequency ablation D/T AFIB - PT REPORTS HAD 1 BUT MAYBE 2 - NOT SURE DATES ([facility]) History of cardioversion multiple History of colonoscopy (05/2022) History of colostomy r/t bowel blockage History of colostomy reversal History of cystoscopy History of esophagogastroduodenoscopy (EGD) History of gastric bypass History of tubal ligation History of umbilical hernia repair Hx of abdominal surgery FOR REMOVAL OF CYST - PT NOT SURE TYPE Hx of cholecystectomy Hx of laparoscopy Hx of lymph node biopsy Hx of removal of cyst Port-A-Cath in place (12/10/22) Access port placement and use of fluoroscopy. Dr. Leger S/P ureteral stent placement Family History Grandmother Diabetes Hypertension Mother Heart disease Hypertension Grandfather Stomach cancer Hypertension Father Pancreatic cancer Hypertension Other No family history of adverse response to anesthesia Denies family history of Ovarian cancer Breast cancer Colorectal cancer Social History Smoking Status: Never smoker Tobacco Type: Cigarettes Second Hand Exposure: No; Do You Dip or Chew Tobacco: No; Hx Alcohol Use: No Hx Substance Use: No Preferred Language: Nepali Communication Ability: Effective Visual Impairment: No Limitations Hearing Ability: Normal Outside 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 Account Executive Required: No Beliefs That Will Affect Care: None marital status: Current Living Situation: Spouse and Family Current Living Situation Comment: home with 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 status: retired 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) How many Children do You have: 1 Other 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 Helps Us Care for You: No other: [employer] PARTTIME Feels Safe at Home: Yes Safety Concerns: Feels Safe At This Time Diet: regular caffeine: No Dental Care, Regularly: Yes Physical Activity Frequency: Does not Exercise Seatbelt Use: always Sunscreen Use: No Assistive Devices: None Review of Systems Review of Systems: All systems reviewed & are unremarkable except as noted in HPI & below Physical Exam Physical Exam: Constitutional: WD/WN, vitals as above Eyes: + anicteric sclerae; normal pupil size Neck: trachea midline, no thyromegaly Respiratory: normal respiratory effort, lungs clear to auscultation Cardiovascular: Rate/Rhythm: regular rate and + irregularly irregular Heart Sounds: + murmur Extremities: normal capillary refill and + pedal edema (1+ equal b/l pitting); no calf tenderness Gastrointestinal (Abdomen): Inspection/Auscultation: abdomen normal to inspection; abdomen not distended Percussion/Palpation: + abdomen tender (generalized without rebound) and abdomen soft; no guarding and abdomen not rigid Musculoskeletal: no cyanosis or clubbing, extremities motor strength 5/5 Skin: Erythema and swelling over anterior medial left thigh from groin to knee Neurologic: moves all extremities and awake; not confused Psychiatric: A+Ox3, euthymic affect Genitourinary: no CVA tenderness Results & Data Results & Data Vital Signs (Past 12 Hours) Vital Signs Temp Pulse Resp BP Pulse Ox O2 Del Method 06/15/23 07:00 76 16 151/101 H 98 06/15/23 06:10 105 H 19 95 06/15/23 06:05 97 H 22 136/80 97 Room Air 06/15/23 05:58 105 H 20 142/98 H 97 Room Air 06/15/23 05:30 117 H 19 152/108 H 93 Room Air 06/15/23 04:18 114 H 06/15/23 05:00 103 H 21 133/113 H 96 Room Air 06/15/23 04:50 113 H 16 145/104 H 96 06/15/23 04:40 106 H 17 97 06/15/23 04:30 132 H 22 97 Room Air 06/15/23 04:20 113 H 19 96 Room Air 06/15/23 04:19 103 H 20 96 Room Air 06/15/23 04:00 36.4 C L 111 H 20 158/108 H 98 Room Air PG Care Time/CCT Total # of Minutes Spent Total Time Spent with Patient: Total time spent is greater than 50% in coordination of care (as documented) at patient's floor/unit and/or counseling patient: Coding Level of Care Code 09172 INT INP/OBS CARE 3/75MIN Diagnoses Abdominal pain R10.84 Abdominal location: generalized Elevated lipase R74.8 Cirrhosis K74.60 A-fib I48.91 (HFpEF) heart failure with preserved ejection fraction I50.30 (1) Abdominal pain Abdominal location: generalized Qualified Code(s): R10.84 - Generalized abdominal pain
[2023-06-15] MEDS: LACTATED RINGER'S 1,000 ML IV SCH ×2 (10:42→18:38)
[2023-06-15] MEDS: dilTIAZem HCL 120 MG CAPCR PO SCH (10:45)
[2023-06-15] MEDS: PANTOprazole 40 MG TAB PO SCH ×2 (10:45→20:24)
[2023-06-15] MEDS: buPROPion XL 150 MG TABCR PO SCH (10:45)
[2023-06-15] MEDS: SPIRONOLACTONE 25 MG TAB PO SCH (10:46)
[2023-06-15] MEDS: METOPROLOL TARTRATE 50 MG TAB PO SCH ×2 (10:46→20:24)
[2023-06-15] MEDS: DOCUSATE SODIUM/SENNA 50/8.6MG TAB PO SCH ×2 (10:46→20:24)
--- NOTE | 2023-06-15 14:16 | Electrocardiogram Report ---
Test Reason : Blood Pressure : / mmHG Vent. Rate : 110 BPM Atrial Rate : 000 BPM P-R Int : 000 ms QRS Dur : 086 ms QT Int : 314 ms P-R-T Axes : 000 -17 000 degrees QTc Int : 424 ms Atrial fibrillation with rapid ventricular response Inferior infarct (cited on or before 19-DEC-2021) Anterior infarct (cited on or before 22-DEC-2022) Abnormal ECG When compared with ECG of 09-MAY-2023 13:13, Nonspecific T wave abnormality no longer evident in Anterolateral leads Confirmed by Michael Stanley ([id number]) on 06/15/2023 2:15:37 PM Referred By: REFERRED SELF Confirmed By:Michael Stanley
--- NOTE | 2023-06-15 14:16 | Electrocardiogram Report ---
Test Reason : Blood Pressure : / mmHG Vent. Rate : 113 BPM Atrial Rate : 000 BPM P-R Int : 000 ms QRS Dur : 088 ms QT Int : 336 ms P-R-T Axes : 000 -20 -25 degrees QTc Int : 460 ms Atrial fibrillation with rapid ventricular response Inferior infarct (cited on or before 19-DEC-2021) Abnormal ECG When compared with ECG of 15-JUN-2023 04:13, (unconfirmed) No significant change was found Confirmed by Michael Stanley ([id number]) on 06/15/2023 2:15:50 PM Referred By: REFERRED SELF Confirmed By:Michael Stanley
[2023-06-15] MEDS ORDERED: DIGOXIN 0.125 MG TAB PO SCH (16:00)
[2023-06-15] MEDS: APIXABAN 5 MG TABLET PO SCH (20:24)
[2023-06-16] MEDS: DOCUSATE SODIUM/SENNA 50/8.6MG TAB PO SCH ×2 (10:57→19:38)
[2023-06-16] MEDS: APIXABAN 5 MG TABLET PO SCH ×2 (10:57→21:24)
[2023-06-16] MEDS: PANTOprazole 40 MG TAB PO SCH ×2 (10:58→21:24)
[2023-06-16] MEDS: METOPROLOL TARTRATE 50 MG TAB PO SCH (10:58)
[2023-06-16] MEDS: SPIRONOLACTONE 25 MG TAB PO SCH (10:59)
[2023-06-16] MEDS: buPROPion XL 150 MG TABCR PO SCH (10:59)
[2023-06-16] MEDS: dilTIAZem HCL 120 MG CAPCR PO SCH (11:00)
[2023-06-16] MEDS ORDERED: HEPARIN 100 UNIT/ML 5ML FLUSH FLUSH PRN (11:03)
--- NOTE | 2023-06-16 11:17 | Ultrasound Report ---
US duplex mesenteric CLINICAL HISTORY: chronic abdominal pain TECHNIQUE: Grayscale, color and spectral waveform Doppler examination of the abdomen was performed. Comparison: Comparison is made to CT abdomen pelvis 06/15/2023 FINDINGS: All vessels are patent without evidence of elevated velocities as follows: Celiac artery: 146 cm/s SMA: 97 cm/s Hepatic artery: 74 cm/s Splenic artery 95 cm/s IMPRESSION: No evidence of elevated velocities. ACT 112: Negative or not required by law. Electronically signed by: Isra Wise M.D. 06/16/2023 11:16 AM
[2023-06-16] MEDS ORDERED: LACTATED RINGER'S 1,000 ML IV SCH (15:00)
[2023-06-16] MEDS ORDERED: ACETAMINOPHEN 1,000 MG/100 ML VIAL IV STA (16:08)
[2023-06-16] MEDS ORDERED: MoRPHine SULFATE 2 MG/ML CARP IV PRN (17:09)
[2023-06-16] MEDS: METOPROLOL TARTRATE 25 MG TAB PO SCH (21:23)
[2023-06-16] MEDS: ACETAMINOPHEN 325 MG TAB PO SCH (21:24)
--- NOTE | 2023-06-16 22:38 | Hospitalist Progress Note ---
Date of Service June 16, 2023 Assessment & Plan (1) Abdominal pain: Plan: likely acute pancreatitits mildy elevated lipase. will try NPO, and wiull place on IV fluid will closely monitor abdominal pain. Pancreatitis does not fit exact clinical history. will obtain mesenteric ultrasound is negative. Given that pain returned after Lunch, I am concerned about a possible duodenal ulcer. Patient may benefit from an upper endoscopy. will consult GI. (2) Elevated lipase: Plan: as above (3) Cirrhosis: Plan: Spironolactone/Lasix on hold. Monitor for ascites on IV fluids. (4) A-fib: Plan: Continue rate control wiht metoprolol, digoxin and diltiazem on eliquis (5) (HFpEF) heart failure with preserved ejection fraction: Plan: stable Admission and Anticipated Discharge Date Admission Date: June 15, 2023 Subjective Patient reports her abdominal pain has subsided at time of lunch. She did not have pain in the AM. Update: Patient had 6/10 pain after finishing her lunch Review of Systems Review of Systems: All systems reviewed & are unremarkable except as noted in HPI & below Physical Exam Physical Exam: Constitutional: WD/WN, vitals as above Eyes: + anicteric sclerae; normal pupil size Neck: trachea midline, no thyromegaly Respiratory: normal respiratory effort, lungs clear to auscultation Cardiovascular: Rate/Rhythm: regular rate and + irregularly irregular Heart Sounds: + murmur Extremities: normal capillary refill and + pedal edema (1+ equal b/l pitting); no calf tenderness Gastrointestinal (Abdomen): Inspection/Auscultation: abdomen normal to inspection; abdomen not distended Percussion/Palpation: + abdomen decreased tenderness (generalized without rebound) and abdomen soft; no guarding and abdomen not rigid Musculoskeletal: no cyanosis or clubbing, extremities motor strength 5/5 Skin: Erythema and swelling over anterior medial left thigh from groin to knee Neurologic: moves all extremities and awake; not confused Psychiatric: A+Ox3, euthymic affect Genitourinary: no CVA tenderness Results & Data Results & Data Vital Signs (Past 12 Hours) Vital Signs Temp Pulse Pulse Resp BP Pulse Ox O2 Del Method 06/16/23 19:47 36.4 C L 67 18 117/57 L 96 Room Air 06/16/23 15:00 56 L 06/16/23 15:28 36.7 C 68 17 129/77 96 Room Air 06/16/23 11:18 36.4 C L 69 18 163/81 H 99 Room Air PG Care Time/CCT Total # of Minutes Spent Total Time Spent with Patient: Total time spent is greater than 50% in coordination of care (as documented) at patient's floor/unit and/or counseling patient: Coding Level of Care Code 60550 SUB INP/OBS CARE 3/50MIN Diagnoses Abdominal pain R10.84 Abdominal location: generalized Elevated lipase R74.8 Cirrhosis K74.60 A-fib I48.91 (HFpEF) heart failure with preserved ejection fraction I50.30 (1) Abdominal pain Abdominal location: generalized Qualified Code(s): R10.84 - Generalized abdominal pain
[2023-06-17] MEDS: DOCUSATE SODIUM/SENNA 50/8.6MG TAB PO SCH (08:38)
[2023-06-17] MEDS: ACETAMINOPHEN 325 MG TAB PO SCH ×3 (08:38→16:39)
[2023-06-17] MEDS: PANTOprazole 40 MG TAB PO SCH (08:42)
[2023-06-17] MEDS: buPROPion XL 150 MG TABCR PO SCH (08:42)
[2023-06-17] MEDS: dilTIAZem HCL 120 MG CAPCR PO SCH (08:42)
[2023-06-17] MEDS: SPIRONOLACTONE 25 MG TAB PO SCH (08:43)
[2023-06-17] MEDS: METOPROLOL TARTRATE 25 MG TAB PO SCH (08:43)
[2023-06-17] MEDS: APIXABAN 5 MG TABLET PO SCH (08:43)
--- NOTE | 2023-06-17 09:24 | Gastrointestinal Consultation ---
Date of Consultation June 17, 2023 Assessment & Plan (1) Abdominal pain: -Given Lipase elevation and epigastric pain, can approach like a mild pancreatitis with NPO status with advancement as tolerated, IV fluids, & pain management -No urgent role for endoscopy, particularly in the setting of possible pancr eatitis and elevated Troponin. Would advise treating empirically with Protonix 40 mg BID, Famotidine 20 mg BID, & Carafate 1 gm four times daily before meals and at bedtime. When acute picture resolves, she can have an EGD as an outpatient. History of Present Illness Reason for Consultation: Abdominal pain Attending Physician: Devon Ventura History of Present Illness Patient is a 73 yo female with multiple medical comorbidities who is admitted to the hospital due to abdominal pain. Patient has been extensively evaluated for her abdominal pain through [facility] as well as [facility]. She was seen in our clinic in 2020 initially after an extensive work-up at that time include multiple colonoscopies, EGDs, CT scans, abdominal/renal US, KUBs, & MRCP. She was seen locally by Dr. Murphy for this work-up. She had an MRCP that questioned some intrahepatic biliary dilatation and ended up being referred to [place] for ERCP. Despite this intervention she continued with abdominal discomfort. 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 She developed an incisional hernia that was felt to intermittently compress her bowels causing abdominal pain and intermittent diarrhea. This was repaired with mesh. She had a CT at the time to indicate resolution of the mesenteric mass. She had an unremarkable EGD in 2020 & colonoscopy in 2021, and was referred to pain management for further evaluation of her abdominal pain. I do not have records of this and am unclear if this was pursued. She had an EUS at [facility] in March 2022 done for a "suspected mass" on CT scan, however they were not able to appreciate any mass on EUS due to her surgical anatomy s/p raudel-en-y bypass. She is currently undergoing chemotherapy for carcinoid vs lymphoma. Due to her history of cirrhosis, she has continued to follow with [facility] hepatology and our office. She presented with complaints of epigastric pain, worsened with food. She notes issues with lower abdominal pain and diarrhea daily, but now noted she is having worsening epigastric pain. Last week it began and she had several episodes of vomiting. No overt GI bleeding. This admission, she notes epigastric pain post- prandially, but does feel better than on admission. CT on admission indicated non-specific findings of focal dilatation of the proximal duodenum felt to be related to transient change. A mesenteric US was unremarkable as well. Of note, her LFTs are not significant this admission (mere AST elevation of 72, ALT 34, AP 128). T Bili unremarkable. Lipase is elevated, however pancreas does appear to be normal on CT scan. Of note, her troponin is 82.9. Allergies Allergy/AdvReac Type Severity Reaction Status Date / Time No Known Allergies Allergy Verified 06/15/23 07:00 Home Medications Medication Instructions Recorded Confirmed Type spironolactone 25 mg tablet 25 mg PO QAM #90 tabs 08/21/22 06/15/23 Rx (Aldactone) allopurinol 300 mg tablet 300 mg PO QAM 12/04/22 06/15/23 History diltiazem HCl 120 mg 120 mg PO DAILY #90 caps 01/22/23 06/15/23 Rx capsule,extended release 24 hr (Cardizem CD) pantoprazole 20 mg tablet,delayed 20 mg PO BID #180 tabs 01/22/23 06/15/23 Rx release bupropion HCl 150 mg 24 hr tablet, 150 mg PO QAM #90 tabs 01/29/23 06/15/23 Rx extended release apixaban 5 mg tablet (Eliquis) 5 mg PO BID #180 tabs 02/05/23 06/15/23 Rx digoxin 125 mcg (0.125 mg) tablet 0.125 mg PO DAILY 02/11/23 06/15/23 History (Digitek) sennosides 8.6 mg-docusate sodium 1 - 2 tab-cap PO BID PRN 02/11/23 06/15/23 Rx 50 mg tablet (Senokot-S) constipation #60 tabs cholecalciferol (vitamin D3) 25 2,000 unit PO QAM 02/19/23 06/15/23 History mcg (1,000 unit) capsule (Vitamin D3) metoprolol tartrate 50 mg tablet 50 mg PO BID #180 tabs 02/19/23 06/15/23 Rx ondansetron 8 mg disintegrating 8 mg translingual Q8H 05/09/23 06/15/23 History tablet nausea/vomitting prochlorperazine maleate 10 mg 10 mg PO Q6H PRN Nausea 05/09/23 06/15/23 History tablet atorvastatin 40 mg tablet (Lipitor) 40 mg PO QAM #90 tabs 06/07/23 06/15/23 Rx Patient History Medical History (HFpEF) heart failure with preserved ejection fraction Abdominal discomfort, epigastric Acute blood loss anemia Anticoagulant long-term use B-cell lymphoma NEW DX B12 deficiency Carcinoid tumor PET SCAN AT [facility]> "PLANS TO TREAT FOR B CELL LYMPHOMA SHOULD TREAT CARCINOID TUMOR" Cardiac murmur Mild MR and TR per 10/2022 ECHO Chronic diastolic congestive heart failure Chronic diastolic congestive heart failure Chronic pain of inguinal region Cirrhosis Cirrhosis CKD (chronic kidney disease), stage III Current use of terminal superintendent anticoagulation Depression Dissection of vertebral artery pt unsure/unaware Dysuria Fatigue GERD (gastroesophageal reflux disease) GERD (gastroesophageal reflux disease) History of anemia IRON INFUSIONS IN PAST History of COVID-19 07/2022>RESOLVED History of skin cancer Hx of pancreatitis Hyperlipemia Hypertension Hypertension Iron deficiency Kidney stones CURRENT BUT NO CAUSES NO PROBLEM Lesion of ureter biopsy 12/29/2020 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 recent PET scan --- RECENT B CELL LYMPHOMA CONFIRMED Morbid obesity Nausea and vomiting Neutropenia Pancytopenia Permanent atrial fibrillation PFO (patent foramen ovale) Suspected per records Prediabetes Sleep apnea NO DEVICE SOB (shortness of breath) on exertion TIA (transient ischemic attack) 2018- [place] - no residual -NO ISSUES SINCE Surgical History H/O: hysterectomy History of bone marrow biopsy History of bowel resection WITH COLOSTOMY R/T SBO History of cardiac radiofrequency ablation D/T AFIB - PT REPORTS HAD 1 BUT MAYBE 2 - NOT SURE DATES ([facility]) History of cardioversion multiple History of colonoscopy (05/2022) History of colostomy r/t bowel blockage History of colostomy reversal History of cystoscopy History of esophagogastroduodenoscopy (EGD) History of gastric bypass History of tubal ligation History of umbilical hernia repair Hx of abdominal surgery FOR REMOVAL OF CYST - PT NOT SURE TYPE Hx of cholecystectomy Hx of laparoscopy Hx of lymph node biopsy Hx of removal of cyst Port-A-Cath in place (12/10/22) Access port placement and use of fluoroscopy. Dr. Leger S/P ureteral stent placement Family History Grandmother Diabetes Hypertension Mother Heart disease Hypertension Grandfather Stomach cancer Hypertension Father Pancreatic cancer Hypertension Other No family history of adverse response to anesthesia Denies family history of Ovarian cancer Breast cancer Colorectal cancer Social History Smoking Status: Never smoker Tobacco Type: Cigarettes Second Hand Exposure: No; Do You Dip or Chew Tobacco: No; Hx Alcohol Use: No Hx Substance Use: No Preferred Language: Pashto Communication Ability: Effective Visual Impairment: No Limitations Hearing Ability: Normal Concrete Finisher Required: No Beliefs That Will Affect Care: None marital status: Current Living Situation: Spouse and Family Current Living Situation Comment: home with 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 status: retired 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) How many Children do You have: 1 Other 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 Helps Us Care for You: No other: SUPER[employer]ING [employer] Feels Safe at Home: Yes Safety Concerns: Feels Safe At This Time Diet: regular caffeine: No Dental Care, Regularly: Yes Physical Activity Frequency: Does not Exercise Seatbelt Use: always Sunscreen Use: No Assistive Devices: None Review of Systems Constitutional: no fever and no chills Respiratory: no cough and no dyspnea Cardiovascular: no chest pain Gastrointestinal: + abdominal pain (improving) Physical Exam Constitutional: well developed Respiratory: normal respiratory effort Cardiovascular: Rate/Rhythm: regular rate Gastrointestinal (Abdomen): Inspection/Auscultation: abdomen normal to inspection Percussion/Palpation: + abdomen tender and abdomen soft Psychiatric: Orientation: alert and oriented x 3 Results & Data Vital Signs (Past 12 Hours) Vital Signs Temp Pulse Pulse Resp BP Pulse Ox O2 Del Method 06/17/23 07:53 85 06/17/23 07:21 36.8 C 84 19 146/79 H 98 Room Air 06/17/23 03:30 36.4 C L 74 18 143/77 H 95 Room Air 06/16/23 23:00 74 06/16/23 23:03 36.6 C 67 18 130/78 95 Room Air PG Care Time/CCT Total # of Minutes Spent Total Time Spent with Patient: Total time spent is greater than 50% in coordination of care (as documented) at patient's floor/unit and/or counseling patient: Coding Level of Care Code 45624 INT INP/OBS CARE 3/75MIN Diagnoses Abdominal pain R10.84 Abdominal location: generalized (1) Abdominal pain Abdominal location: generalized Qualified Code(s): R10.84 - Generalized abdominal pain
[2023-06-17] MEDS ORDERED: FAMOTIDINE 20 MG TAB PO SCH (09:30)
[2023-06-17] MEDS: SUCRALFATE 1 GM/10 ML UDC PO SCH ×2 (11:32→16:38)
--- NOTE | 2023-06-17 13:24 | Electrocardiogram Report ---
Test Reason : Blood Pressure : / mmHG Vent. Rate : 071 BPM Atrial Rate : 066 BPM P-R Int : 000 ms QRS Dur : 098 ms QT Int : 370 ms P-R-T Axes : 000 -14 -11 degrees QTc Int : 402 ms Atrial fibrillation Inferior infarct (cited on or before 19-DEC-2021) Poor R wave progression, consider anterior IL vs. lead placement vs. LVH Abnormal ECG When compared with ECG of 15-JUN-2023 06:02, Vent. rate has decreased BY 42 BPM Confirmed by Michael Stanley ([id number]) on 06/17/2023 1:23:43 PM Referred By: REFERRED SELF Confirmed By:Michael Stanley
--- NOTE | 2023-06-17 17:53 | Discharge Summary ---
Date of Service June 17, 2023 Admission HPI Per Admitting Provider 73 yo female reports worsening abdominal pain. Patient reports having pain in her abdomen epsigastric region whcih worsened over the past day. Patient reports though that this pain has gia ongoing for he past few months and has become more frequent over the past 2 weeks. Pain is now daily. The intensity of the pain worsened over the past 24 hours which prompted her to come in. Patient reports that she has had weight loss over the past 3 months due to a decreased appetite. She reports her pain worsene almost immediately after finishing her meals. Principal Diagnosis acute pancreatitis Discharge Exam Constitutional: WD/WN, vitals as above Eyes: + anicteric sclerae; normal pupil size Neck: trachea midline, no thyromegaly Respiratory: normal respiratory effort, lungs clear to auscultation Cardiovascular: Rate/Rhythm: regular rate and + irregularly irregular Heart Sounds: + murmur Extremities: normal capillary refill and + pedal edema (1+ equal b/l pitting); no calf tenderness Gastrointestinal (Abdomen): Inspection/Auscultation: abdomen normal to inspection; abdomen not distended Percussion/Palpation: + abdomen decreased tenderness (generalized without rebound) and abdomen soft; no guarding and abdomen not rigid Musculoskeletal: no cyanosis or clubbing, extremities motor strength 5/5 Skin: Erythema and swelling over anterior medial left thigh from groin to knee Neurologic: moves all extremities and awake; not confused Psychiatric: A+Ox3, euthymic affect Genitourinary: no CVA tenderness Discharge Data Allergies Allergy/AdvReac Type Severity Reaction Status Date / Time No Known Allergies Allergy Verified 06/15/23 07:00 Consultations 06/15/23 08:18 ED Decision to Admit Stat 06/17/23 07:27 Consult Gastroenterology Routine Ordered Studies 06/15/23 04:31 CT abd pelvis IV con only Stat 06/16/23 17:33 US duplex mesenteric Routine Hospital Course (1) Abdominal pain: likely acute pancreatitits mildy elevated lipase. Pancreatitis does not fit exact clinical history of subacute abdominal pain. mesenteric ultrasound is negative. Consulted GI: -No urgent role for endoscopy, particularly in the setting of possible pancreatitis and elevated Troponin. Would advise treating empirically with Protonix 40 mg BID, Famotidine 20 mg BID, & Carafate 1 gm four times daily before meals and at bedtime. When acute picture resolves, she can have an EGD as an outpatient. (2) Elevated lipase: as above (3) Cirrhosis: Spironolactone/Lasix on hold while in house (4) A-fib: Continue rate control wiht metoprolol, digoxin and diltiazem on eliquis (5) (HFpEF) heart failure with preserved ejection fraction: stable Total Time Total Time Spent Total Time Spent (In Minutes): 35 Discharge Plan Discharge Items Patient Disposition: Home - Self-Care Reason For Visit: PANCREATITIS/ELEVATED TROP Discharge Diagnosis: pancreatitits Activity: Resume your previous activity Non-emergency contact: Primary Care Provider Call non-emergency contact if: you have any medication questions Follow-up/Referrals: Christopher Guevara MD [Primary Care Provider] - Diet: Low Fat Addtl Attending Provider Instructions: Recommend followup with your PCP in 1-2 weeks. Recommend followup with GI in 4-6 weeks A low-fat diet focuses on reducing the intake of dietary fats, particularly saturated and trans fats. Here are some general guidelines for following a low- fat diet: 1. Choose lean protein sources: Opt for lean cuts of meat, skinless poultry, fish, legumes, and low-fat dairy products like skim milk or low-fat yogurt. Limit processed meats and high-fat cuts of meat. 2. Incorporate fruits and vegetables: Include a variety of colorful fruits and vegetables in your diet. They provide essential nutrients, fiber, and are naturally low in fat. 3. Emphasize whole grains: Choose whole grain products like whole wheat bread, brown rice, quinoa, and whole grain cereals. These are higher in fiber and nutrients compared to refined grains. 4. Limit or avoid high-fat dairy: Choose low-fat or fat-free dairy options such as skim milk, low-fat yogurt, and reduced-fat cheeses. Limit or avoid full-fat dairy products like whole milk and regular cheese. 5. Be mindful of cooking methods: Opt for cooking methods that use little to no added fats, such as grilling, baking, steaming, or boiling. Avoid deep frying or using excessive amounts of oil. 6. Reduce added fats and oils: Limit the use of oils, butter, margarine, and salad dressings. When using oils, choose healthier options like olive oil or canola oil in moderation. 7. Read food labels: Check the nutrition labels of packaged foods for the fat content and choose options that are low in saturated and trans fats. Be aware of hidden fats in processed and packaged foods. 8. Limit high-fat snacks and desserts: Minimize consumption of high-fat snacks like chips, cookies, cakes, and pastries. Opt for healthier alternatives like fresh fruits, vegetables, or air-popped popcorn. 9. Practice portion control: Be mindful of portion sizes to avoid overeating, even if the food is low in fat. Moderation is baxter to maintaining a balanced diet. Pending Studies at Discharge: No Stand-Alone Forms: My [facility], Smoking Cessation Medications and DC Order Prescriptions: New famotidine 20 mg Tablet 20 mg PO BID Qty: 60 0RF sucralfate 1 gram tablet 1 g PO ACHS 28 Days Qty: 112 0RF Continued spironolactone [Aldactone] 25 mg tablet 25 mg PO QAM Qty: 90 3RF diltiazem HCl [Cardizem CD] 120 mg capsule,extended release 24hr 120 mg PO DAILY Qty: 90 3RF bupropion HCl 150 mg tablet extended release 24 hr 150 mg PO QAM Qty: 90 3RF Eliquis 5 mg tablet 5 mg PO BID Qty: 180 3RF cholecalciferol (vitamin D3) [Vitamin D3] 25 mcg (1,000 unit) capsule 2,000 unit PO QAM atorvastatin [Lipitor] 40 mg tablet 40 mg PO QAM Qty: 90 3RF allopurinol 300 mg tablet 300 mg PO QAM prochlorperazine maleate 10 mg tablet 10 mg PO Q6H PRN (Reason: Nausea) ondansetron 8 mg tablet,disintegrating 8 mg translingual Q8H sennosides-docusate sodium [Senokot-S] 8.6-50 mg tablet 1 - 2 tab-cap PO BID PRN (Reason: constipation) Qty: 60 2RF digoxin [Digitek] 125 mcg (0.125 mg) tablet 0.125 mg PO DAILY pantoprazole 20 mg tablet,delayed release (DR/EC) 20 mg PO BID Qty: 180 3RF Changed metoprolol tartrate 50 mg tablet 25 mg PO BID Qty: 180 3RF Discharge Orders: Discharge Order (Routine); Ordered 06/17/23 Ordered By: Devon Ventura Admission Data Admit Date/Time: 06/15/23 08:17 Attending Provider: Devon Ventura Admit Provider: Devon Ventura Primary Care Provider: Christopher Guevara Other Providers: Devon Ventura ; Sarina Bell ; Ashwin Foster ; Fara Fox ; Kae Montalvo ; Rebeka Gonzalez ; Shirley Benavidez ; Alfonso Craig ; Jimmy Mora ; Boris Espinoza ; Dominique Sharif ; Alejandro Quevedo ; Claritza Barnard ; Daija Diaz ; Mary Anne Marcus ; Shelia Padron ; Sussy Huffman ; Neo Griffin ; Benigno Hurt ; Sapna Merino ; Alba Tyson Jr Other Interventions: Discharge Summary Assessment (RN) Last Done: 06/17/23 18:17 Coding Level of Care Code 34785 INP/OBS DISCH >30 MIN Diagnoses Abdominal pain R10.84 Abdominal location: generalized Elevated lipase R74.8 Cirrhosis K74.60 A-fib I48.91 (HFpEF) heart failure with preserved ejection fraction I50.30
== END 2023-06-17 18:36 | disposition home or self-care (01) | DRG 439 ==
LOC: ED 03:53 → 2S 08:17

== ENCOUNTER 2023-07-27 12:11 | Inpatient (IN) ==
[2023-07-27 13:15] LABS: Hemoglobin 11.6 g/dl (12.0-16.0); Mean Corpuscular Hemoglobin 35.5 pg (25.0-34.0); Mean Corpuscular Hgb Conc 33.1 g/dL (32.0-36.0); Mean Platelet Volume 9.3 fL (9.4-12.4); Platelet Count 177 K/uL (130-400); RDW Coefficient of Variation 13.7 % (11.5-14.5); RDW Standard Deviation 54.5 fL (36.4-46.3); Red Blood Count 3.27 M/uL (4.20-5.40); White Blood Count 5.22 K/ul (4.8-10.8)
--- NOTE | 2023-07-27 13:15 | CT Scan Report ---
CT OF THE HEAD WITHOUT CONTRAST CLINICAL HISTORY: Neuro deficit, acute, stroke suspected COMPARISON STUDY: MRI of the brain November 30, 2018. Head CT June 24, 2022. CT DOSE: 625.80 mGy.cm TECHNIQUE: Helical axial images of the head were obtained without IV contrast. Automated exposure con trol was utilized for the study. A dose lowering technique was utilized adhering to the principles o f ALARA. FINDINGS: No acute intracranial hemorrhage, midline shift or mass effect is present. Multifocal white matter hypodensities are unchanged. The ventricular system is unremarkable. The basal cisterns are p atent. No extra-axial collections are present. There are no findings to suggest acute dural sinus thr ombosis or acute territorial infarct. No significant calvarial abnormalities are present. Visualized portions of the sinuses and mastoid air cells are clear. IMPRESSION: No acute intracranial findings. No change in appearance of the brain. ACT 112: Negative or not required by law. Electronically signed by: Robe Patterson M.D. 07/27/2023 1:12 PM
[2023-07-27] MEDS ORDERED: diphenhydrAMINE 50 MG/ML VIAL IV STA (13:27)
[2023-07-27] MEDS ORDERED: METOCLOPRAMIDE HCL INJ 5 MG/ML 2 ML VIAL IV ONE (13:27)
[2023-07-27] MEDS ORDERED: KETOROLAC TROMETHAMINE 15 MG/ML VIAL IV STA (13:27)
[2023-07-27] MEDS ORDERED: SODIUM CHLORIDE 0.9% 500 ML IV SCH (13:30)
[2023-07-27 13:41] LABS: Albumin Level 3.8 gm/dl (3.4-5.0); Anion Gap 7 (3-11); Bilirubin,Total 0.8 mg/dl (0.2-1.0); Calcium 8.8 mg/dl (8.6-10.3); Carbon Dioxide 22 mmol/L (21-32); Chloride 111 mmol/L (98-107); INR 1.1 (0.9-1.1); Magnesium 1.7 mg/dl (1.7-2.4); Partial Thromboplastin Time 28.2 Seconds (21.0-31.0); Potassium 4.1 mmol/L (3.5-5.1); Prothrombin Time 11.6 Seconds (9.0-12.0); Sodium 140 mmol/L (136-145)
[2023-07-27 13:47] LABS: Alanine Aminotransferase 12 U/L (7-52); Albumin Globulin Ratio 1.5 (0.9-2); Alkaline Phosphatase 128 U/L (34-104); Aspartate Aminotransferase 19 U/L (13-39); BUN Creatinine Ratio 17.2 (10-20); Blood Urea Nitrogen 16 mg/dl (6-23); Est GFR (African American) 71.7 ml/min; Est GFR (Non-African American) 61.8 ml/min; Globulin 2.5 gm/dl (2.5-4.0); Glucose 161 mg/dl (70-99(Fasting)); Total Protein 6.3 gm/dl (6.0-8.3)
--- NOTE | 2023-07-27 13:51 | XRay Report ---
XR chest 1V portable CLINICAL HISTORY: stroke alert COMPARISON STUDY: Chest CT January 08, 2023. Chest radiograph July 17, 2023. PET/CT June 05, 2023. FINDINGS: Right subclavian [id number] is in place. There is no pneumothorax. Small right and trace left pleural effusions are present. Interstitial thickening favors pulmonary edema. Cardiac silhouet te is enlarged. This is accentuated on this hypoventilatory study. IMPRESSION: Cardiomegaly with a small right pleural effusion and mild interstitial pulmonary edema. ACT 112: Negative or not required by law. Electronically signed by: Robe Patterson M.D. 07/27/2023 1:50 PM
--- NOTE | 2023-07-27 13:52 | History & Physical Report ---
Date of Service July 27, 2023 Assessment & Plan (1) Stroke-like symptoms: Plan: Generalized weakness and confusion but expressive dysphagia out of proportion to other symptoms Brain MRI - if negative consider infective etiology however procalcitonin negative and WBC normal Will defer TTE unless brain MRI positive for stroke given ongoing symptoms doubtful TIA Consult neurology (2) Permanent atrial fibrillation: Plan: Continue digoxin, metoprolol, diltiazem for rate control Eliquis for anticoagulation (3) Generalized abdominal pain: Plan: No acute pathology on CT yesterday - suspected due to her B cell lymphoma (4) Non Hodgkin's lymphoma: Plan VTE Prophylaxis - Eliquis Diet - heart healthy Disposition - observation to med/tele Admission and Anticipated Discharge Date Admission Date: July 27, 2023 History of Present Illness Chief Complaint: Confusion, headache and aphasia Primary Care Provider: Christopher Guevara MD Tea Dawkins is a 73 year old female who presents to the ER with confusion, headache and aphasia. She reports her symptoms started yesterday around 10am following her CT scan for routine follow up of her B cell lymphoma. She went to urgent care with dysphasia and therefore was sent to [facility] where she h ad a CT and was reportedly told she did not have a stroke and was discharged. She reports still having some dysphasia but it is improving. No coughing or choking after swallowing. She also reports generalized weakness and confusion with this. No fever, chills, cough, shortness of breath, urinary symptoms or new GI symptoms with this. She does note ongoing generalized abdominal pain although this is ongoing since her cancer diagnosis and CT yesterday showed no acute findings and it is not worse than then and ongoing for weeks. She denies any one sided weakness, change in vision or hearing. She has atrial fibrillation and is compliant Eliquis. Allergies Allergy/AdvReac Type Severity Reaction Status Date / Time No Known Allergies Allergy Verified 07/27/23 14:20 Home Medications Medication Instructions Recorded Confirmed Type spironolactone 25 mg tablet 25 mg PO QAM #90 tabs 08/21/22 07/27/23 Rx (Aldactone) bupropion HCl 150 mg 24 hr tablet, 150 mg PO QAM #90 tabs 01/29/23 07/27/23 Rx extended release apixaban 5 mg tablet (Eliquis) 5 mg PO BID #180 tabs 02/05/23 07/27/23 Rx digoxin 125 mcg (0.125 mg) tablet 0.125 mg PO . DAILY @ 4:00PM 02/11/23 07/27/23 History (Digitek) cholecalciferol (vitamin D3) 25 2,000 unit PO QAM 02/19/23 07/27/23 History mcg (1,000 unit) capsule (Vitamin D3) prochlorperazine maleate 10 mg 10 mg PO Q6H PRN Nausea 05/09/23 07/27/23 History tablet famotidine 20 mg tablet 20 mg PO BID #60 tabs 06/17/23 07/27/23 Rx pantoprazole 20 mg tablet,delayed 20 mg PO BID #180 tabs 06/17/23 07/27/23 Rx release nystatin 100,000 unit/gram topical 1 applic topical HS PRN fungal 06/26/23 07/27/23 Rx powder (Nystop) site #15 grams diltiazem HCl 120 mg 120 mg PO QAM 07/05/23 07/27/23 History capsule,extended release 24 hr (Cardizem CD) sucralfate 1 gram tablet 1 g PO UD 07/05/23 07/27/23 History atorvastatin 40 mg tablet (Lipitor) 40 mg PO QAM #90 tabs 07/19/23 07/27/23 Rx allopurinol 300 mg tablet 300 mg PO DAILY 07/27/23 07/27/23 History metoprolol tartrate 50 mg tablet 50 mg PO TID 07/27/23 07/27/23 History Past Med/Surg History Medical History (HFpEF) heart failure with preserved ejection fraction f/u dr. 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 Depression Dissection of vertebral artery pt unsure/unaware Fatigue GERD (gastroesophageal reflux disease) History of anemia IRON INFUSIONS IN PAST History of COVID-19 07/2022>RESOLVED History of skin cancer Hx of pancreatitis has had a couple times; most recent was 3 weeks ago, hospitalized at [facility] for 2 nights Hyperlipemia Hypertension Iron deficiency Kidney stones CURRENTLY, NOT CAUSING ISSUES Lesion of ureter biopsy 12/29/2020 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 recent PET scan --- RECENT B CELL LYMPHOMA CONFIRMED, growth has recently stopped due to chemo Morbid obesity Nausea and vomiting Neutropenia Pancytopenia Permanent atrial fibrillation PFO (patent foramen ovale) Suspected per records Prediabetes Sleep apnea NO DEVICE SOB (shortness of breath) on exertion TIA (transient ischemic attack) 2018- [place] - no residual -NO ISSUES SINCE Surgical History H/O: hysterectomy History of bone marrow biopsy History of bowel resection WITH COLOSTOMY R/T SBO History of cardiac radiofrequency ablation D/T AFIB - PT REPORTS HAD 1 BUT MAYBE 2 - NOT SURE DATES ([facility]) History of cardioversion multiple History of colonoscopy (05/2022) History of colostomy r/t bowel blockage History of colostomy reversal History of cystoscopy History of esophagogastroduodenoscopy (EGD) History of gastric bypass History of tubal ligation History of umbilical hernia repair Hx of abdominal surgery FOR REMOVAL OF CYST - PT NOT SURE TYPE Hx of cholecystectomy Hx of laparoscopy Hx of lymph node biopsy Port-A-Cath in place (12/10/22) Access port placement and use of fluoroscopy. Dr. Leger S/P ureteral stent placement Family History Grandmother Diabetes Hypertension Mother Heart disease Hypertension Grandfather Stomach cancer Hypertension Father Pancreatic cancer Hypertension Other No family history of adverse response to anesthesia Denies family history of Ovarian cancer Breast cancer Colorectal cancer Social History Smoking Status: Former smoker Tobacco Type: Cigarettes Second Hand Exposure: No; Do You Dip or Chew Tobacco: No; Tobacco Cessation Education Requested by Patient: No Hx Alcohol Use: No Hx Substance Use: No Preferred Language: Lithuanian Communication Ability: Effective Visual Impairment: No Limitations Hearing Ability: Normal 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: No Beliefs That Will Affect Care: None marital status: Current Living Situation: Spouse Current Living Situation Comment: home with 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 status: retired 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) How many Children do You have: 1 Other 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 Helps Us Care for You: No 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 [employer] Feels Safe at Home: Yes Safety Concerns: Feels Safe At This Time Diet: regular caffeine: No Dental Care, Regularly: Yes Physical Activity Frequency: Does not Exercise Seatbelt Use: always Sunscreen Use: No Assistive Devices: Glasses Review of Systems Review of Systems: All systems reviewed & are unremarkable except as noted in HPI & below Physical Exam Constitutional: WD/WN, vitals as above Eyes: PERRL, conjunctivae normal, anicteric sclerae ENMT: external ear and nose normal, oropharynx normal Respiratory: normal respiratory effort; no respiratory distress Auscultation: + breath sounds absent (right base) Cardiovascular: Rate/Rhythm: regular rate and + irregularly irregular Extremities: normal capillary refill; no calf tenderness and no pedal edema Gastrointestinal (Abdomen): normal bowel sounds, soft, nontender, no hepatosplenomegaly Musculoskeletal: no cyanosis or clubbing, extremities motor strength 5/5 Skin: no rashes, warm and dry Neurologic: moves all extremities and awake; no focal motor deficits and not confused Speech / Cognition: normal speech Motor/Sensory: no tremor, no pronator drift and no sensory deficit Cranial Nerves: PERRL, EOM intact bilaterally, normal facial strength, tongue midline, able to rotate head bilaterally, able to elevate shoulders bilaterally, no nystagmus and symmetric palate elevation Coordination: normal [id number] test Psychiatric: A+Ox3, euthymic affect Genitourinary: no CVA tenderness Results & Data Results & Data Vital Signs (Past 12 Hours) Vital Signs Temp Pulse Resp BP Pulse Ox O2 Del Method 07/27/23 13:33 53 L 07/27/23 12:15 36.2 C L 70 20 147/89 H 97 Room Air Laboratory Results Abnormal lab results 07/27/23 07/27/23 Range/Units 12:50 12:50 RBC 3.27 L (4.20-5.40) M/uL Hgb 11.6 L (12.0-16.0) g/dl Hct 35.0 L (37.0-47.0) % MCV 107.0 H (80.0-100.0) fL MCH 35.5 H (25.0-34.0) pg RDW Std Deviation 54.5 H (36.4-46.3) fL MPV 9.3 L (9.4-12.4) fL Chloride 111 H (98-107) mmol/L Glucose 161 H (70-99(Fasting)) mg/dl Alkaline Phosphatase 128 H (34-104) U/L Diagnostic Findings CT OF THE HEAD WITHOUT CONTRAST CLINICAL HISTORY: Neuro deficit, acute, stroke suspected COMPARISON STUDY: MRI of the brain November 30, 2018. Head CT June 24, 2022. CT DOSE: 625.80 mGy.cm TECHNIQUE: Helical axial images of the head were obtained without IV contrast. Automated exposure control was utilized for the study. A dose lowering technique was utilized adhering to the principles of ALARA. FINDINGS: No acute intracranial hemorrhage, midline shift or mass effect is present. Multifocal white matter hypodensities are unchanged. The ventricular system is unremarkable. The basal cisterns are patent. No extra-axial collections are present. There are no findings to suggest acute dural sinus thrombosis or acute territorial infarct. No significant calvarial abnormalities are present. Visualized portions of the sinuses and mastoid air cells are clear. IMPRESSION: No acute intracranial findings. No change in appearance of the brain. XR chest 1V portable CLINICAL HISTORY: stroke alert COMPARISON STUDY: Chest CT January 08, 2023. Chest radiograph July 17, 2023. PET/CT June 05, 2023. FINDINGS: Right subclavian [id number] is in place. There is no pneumothorax. Small right and trace left pleural effusions are present. Interstitial thickening favors pulmonary edema. Cardiac silhouette is enlarged. This is accentuated on this hypoventilatory study. IMPRESSION: Cardiomegaly with a small right pleural effusion and mild interstitial pulmonary edema. Medications Administered ER Medications Given: Diphenhydramine 25mg IV Metoclopramide 5mg IV Toradol 15mg IV ECG Rate (beats per minute): 79 Rhythm: atrial fibrillation Findings: no acute ischemic change Comparison ECG Date: from (June 17, 2023) Change: no significant change Code Status & VTE Plan Code Status Full VTE Prophylaxis Plan VTE Prophylaxis will be ordered: Yes PG Care Time/CCT Total # of Minutes Spent Total Time Spent with Patient: Total time spent is greater than 50% in coordination of care (as documented) at patient's floor/unit and/or counseling patient: Coding Level of Care Code 58293 INT INP/OBS CARE MIN Diagnoses Stroke-like symptoms R29.90 Permanent atrial fibrillation I48.21 Generalized abdominal pain R10.84 Non Hodgkin's lymphoma C85.90
[2023-07-27] MEDS ORDERED: PHARMACIST DISCHARGE MED REC CONSULT PRN (15:14)
[2023-07-27 15:49] LABS: Lipase 18 U/L (11-82)
[2023-07-27] MEDS ORDERED: GADOBUTROL 10ML VIAL IV ONE (15:58)
--- NOTE | 2023-07-27 16:39 | Magnetic Resonance Report ---
MRI OF THE BRAIN WITHOUT AND WITH IV CONTRAST CLINICAL HISTORY: expressive dysphasia COMPARISON STUDY: Head CT July 27, 2023. MRI of the brain November 30, 2018. TECHNIQUE: Utilizing a 1.5 Holly magnet and dedicated coil, multiplanar, multiecho imaging of the br ain was performed pre and postcontrast administration. IV administration of 9 mL of Gadavist contras t was uneventful. Thin cut T1 post contrast imaging was performed. FINDINGS: There are no foci of restricted diffusion to suggest acute infarct. No acute intracranial h emorrhage, midline shift or mass effect is present. Prominent of the extra-axial spaces is unchanged. There is no intracranial mass or pathologic enhancement. Extensive white matter T2 hyperintense foci are similar to previous MRI. A 2.5 cm T1 hypointense right frontal bone lesion remains unchanged sin ce previous MRI. No evidence for sinusitis. Orbits are unremarkable on this nondedicated exam. IMPRESSION: 1. No acute intracranial findings. 2. No sniffing change in appearance of the brain since MRI of November 30, 2018. ACT 112: Negative or not required by law. Electronically signed by: Robe Patterson M.D. 07/27/2023 4:36 PM
--- NOTE | 2023-07-27 16:57 | Emergency Department Note ---
History of Present Illness General Chief complaint: TIA Symptoms Stated complaint: SLURRED SPEECH, CONFUSION, HEADACHE Time Seen by Provider: 07/27/23 13:19 History of Present Illness Provider complaint: Difficulty speaking Onset (ago): day(s) 2 Maximum Pain Intensity: 8 73-year-old female presents emergency department for difficulty speaking. Patient is on Eliquis. Patient reports her symptoms began 2 days ago. Patient reports that she went to [place] emergency department yesterday and was told that she does not have a stroke after obtaining a CT scan. Patient states her symptoms never improved so she came to this emergency department today. Home Medications Medication Instructions Recorded Confirmed Type spironolactone 25 mg tablet 25 mg PO QAM #90 tabs 08/21/22 07/27/23 Rx (Aldactone) bupropion HCl 150 mg 24 hr tablet, 150 mg PO QAM #90 tabs 01/29/23 07/27/23 Rx extended release apixaban 5 mg tablet (Eliquis) 5 mg PO BID #180 tabs 02/05/23 07/27/23 Rx digoxin 125 mcg (0.125 mg) tablet 0.125 mg PO . DAILY @ 4:00PM 02/11/23 07/27/23 History (Digitek) cholecalciferol (vitamin D3) 25 2,000 unit PO QAM 02/19/23 07/27/23 History mcg (1,000 unit) capsule (Vitamin D3) prochlorperazine maleate 10 mg 10 mg PO Q6H PRN Nausea 05/09/23 07/27/23 History tablet famotidine 20 mg tablet 20 mg PO BID #60 tabs 06/17/23 07/27/23 Rx pantoprazole 20 mg tablet,delayed 20 mg PO BID #180 tabs 06/17/23 07/27/23 Rx release nystatin 100,000 unit/gram topical 1 applic topical HS PRN fungal 06/26/23 07/27/23 Rx powder (Nystop) site #15 grams diltiazem HCl 120 mg 120 mg PO QAM 07/05/23 07/27/23 History capsule,extended release 24 hr (Cardizem CD) sucralfate 1 gram tablet 1 g PO UD 07/05/23 07/27/23 History atorvastatin 40 mg tablet (Lipitor) 40 mg PO QAM #90 tabs 07/19/23 07/27/23 Rx allopurinol 300 mg tablet 300 mg PO DAILY 07/27/23 07/27/23 History metoprolol tartrate 50 mg tablet 50 mg PO TID 07/27/23 07/27/23 History Allergies Allergy/AdvReac Type Severity Reaction Status Date / Time No Known Allergies Allergy Verified 07/27/23 14:20 Past Med/Surg History Medical History (HFpEF) heart failure with preserved ejection fraction f/u dr. 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 Depression Dissection of vertebral artery pt unsure/unaware Fatigue GERD (gastroesophageal reflux disease) History of anemia IRON INFUSIONS IN PAST History of COVID-19 07/2022>RESOLVED History of skin cancer Hx of pancreatitis has had a couple times; most recent was 3 weeks ago, hospitalized at [facility] for 2 nights Hyperlipemia Hypertension Iron deficiency Kidney stones CURRENTLY, NOT CAUSING ISSUES Lesion of ureter biopsy 12/29/2020 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 recent PET scan --- RECENT B CELL LYMPHOMA CONFIRMED, growth has recently stopped due to chemo Morbid obesity Nausea and vomiting Neutropenia Pancytopenia Permanent atrial fibrillation PFO (patent foramen ovale) Suspected per records Prediabetes Sleep apnea NO DEVICE SOB (shortness of breath) on exertion TIA (transient ischemic attack) 2018- [place] - no residual -NO ISSUES SINCE Surgical History H/O: hysterectomy History of bone marrow biopsy History of bowel resection WITH COLOSTOMY R/T SBO History of cardiac radiofrequency ablation D/T AFIB - PT REPORTS HAD 1 BUT MAYBE 2 - NOT SURE DATES ([facility]) History of cardioversion multiple History of colonoscopy (05/2022) History of colostomy r/t bowel blockage History of colostomy reversal History of cystoscopy History of esophagogastroduodenoscopy (EGD) History of gastric bypass History of tubal ligation History of umbilical hernia repair Hx of abdominal surgery FOR REMOVAL OF CYST - PT NOT SURE TYPE Hx of cholecystectomy Hx of laparoscopy Hx of lymph node biopsy Port-A-Cath in place (12/10/22) Access port placement and use of fluoroscopy. Dr. Leger S/P ureteral stent placement Family History Grandmother Diabetes Hypertension Mother Heart disease Hypertension Grandfather Stomach cancer Hypertension Father Pancreatic cancer Hypertension Other No family history of adverse response to anesthesia Denies family history of Ovarian cancer Breast cancer Colorectal cancer Social History Smoking Status: Former smoker Tobacco Type: Cigarettes Second Hand Exposure: No; Do You Dip or Chew Tobacco: No; Hx Alcohol Use: No Hx Substance Use: Yes Last Used Substance Other:: years ago Substance Use Type Other:: last use was 40 years ago Preferred Language: Albanian Communication Ability: Effective Visual Impairment: No Limitations Hearing Ability: Normal 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 Required: No Beliefs That Will Affect Care: None marital status: Current Living Situation: Spouse Current Living Situation Comment: home with 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 status: 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) How many Children do You have: 1 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 Feels Safe at Home: Yes Diet: regular caffeine: No Dental Care, Regularly: Yes Physical Activity Frequency: Does not Exercise Seatbelt Use: always Sunscreen Use: No Assistive Devices: Glasses Physical Exam Vital Signs Vital Signs - 24 hr 07/27/23 12:15 07/27/23 13:33 07/27/23 12:21 Temperature 36.2 C L Temperature Source Temporal Artery Scan Pulse Rate 70 53 L Pulse Rhythm Regular Pulse Strength Normal Respiratory Rate 20 Respiratory Effort / Characteristics Non-Labored Spontaneous Respiratory Depth Normal Respiratory Pattern Regular Blood Pressure 147/89 H Blood Pressure Mean 108 Blood Pressure Position Sitting Pulse Oximetry 97 97 Oxygen Delivery Method Room Air Room Air Sepsis Recent Fever Within 48 Hours No Sepsis New/Unexplained Change in Mental Status No Sepsis Action Taken by Nursing No Action Required Physical Exam HENT: Exam performed. -Head: Normocephalic and atraumatic. -Mouth/Throat: The oropharynx is clear and moist. No trismus in the jaw. No dental abscesses or uvula swelling. No oropharyngeal exudate or tonsillar abscesses. EYES: Conjunctivae and EOM are normal. Pupils are equal, round, and reactive to light. Right eye exhibits no discharge. Left eye exhibits no discharge. No scleral icterus. NECK: Normal range of motion. Neck supple. No JVD present. CV: Normal rate, irregular rhythm, normal heart sounds and intact distal pulses. There is no peripheral edema. Palpable radial pulses bue. PULM/CHEST: Effort normal and breath sounds normal. No respiratory distress. No stridor. She has no wheezes. She has no rales. ABD: The abdomen is soft. There is no tenderness. There is no rebound, no guarding MUSC/SKEL: Normal range of motion. There is no peripheral edema, tenderness or deformity. NEURO: She is alert and oriented to person, place, and time. She has normal strength. No cranial nerve deficit or sensory deficit. Mild dysarthria and expressive aphasia. Course Course 1319: The patient was evaluated in room C4. A complete history and physical exam was performed Administered Medications Discontinued Medications Diphenhydramine HCl (Diphenhydramine 50 Mg/Ml Vial) 25 mg IV NOW STA Stop: 07/27/23 13:28 Last Admin: 07/27/23 14:04 Dose: 25 mg Documented By: DALTON Gadobutrol (Gadobutrol 10ml Vial) 9 ml IV ONCE ONE Stop: 07/27/23 15:59 Last Admin: 07/27/23 15:58 Dose: 9 ml Documented By: BARRERA Sodium Chloride (Nss) 500 mls @ 125 mls/hr IV .Q4H JESSIE Stop: 08/26/23 13:29 Last Admin: 07/27/23 13:55 Dose: 125 mls/hr Documented By: DALTON Ketorolac Tromethamine (Ketorolac Tromethamine 15 Mg/Ml Vial) 15 mg IV NOW STA Stop: 07/27/23 13:28 Last Admin: 07/27/23 14:05 Dose: 15 mg Documented By: DALTON Metoclopramide HCl (Metoclopramide Hcl Inj 5 Mg/Ml 2 Ml Vial) 5 mg IV ONE ONE Stop: 07/27/23 13:28 Last Admin: 07/27/23 14:03 Dose: 5 mg Documented By: DALTON Medical Decision Making Laboratory Data Attestation: I reviewed the patient's lab results. 07/27/23 12:50 07/27/23 12:50 Lab Results 07/27/23 07/27/23 07/27/23 Range/Units 12:50 12:50 12:50 WBC 5.22 (4.8-10.8) K/ul RBC 3.27 L (4.20-5.40) M/uL Hgb 11.6 L (12.0-16.0) g/dl Hct 35.0 L (37.0-47.0) % MCV 107.0 H (80.0-100.0) fL MCH 35.5 H (25.0-34.0) pg MCHC 33.1 (32.0-36.0) g/dL RDW Std Deviation 54.5 H (36.4-46.3) fL RDW Coeff of Rodrigo 13.7 (11.5-14.5) % Plt Count 177 (130-400) K/uL MPV 9.3 L (9.4-12.4) fL ESR (0-30) mm/hr PT 11.6 (9.0-12.0) Seconds INR 1.1 (0.9-1.1) APTT 28.2 (21.0-31.0) Seconds PTT Ratio 1.0 Sodium 140 (136-145) mmol/L Potassium 4.1 (3.5-5.1) mmol/L Chloride 111 H (98-107) mmol/L Carbon Dioxide 22 (21-32) mmol/L Anion Gap 7 (3-11) BUN 16 (6-23) mg/dl Creatinine 0.93 (0.6-1.2) mg/dl Est Cr Clr Drug Dosing Not Reportable Est GFR ( Amer) 71.7 ml/min Est GFR (Non-Af Amer) 61.8 ml/min BUN/Creatinine Ratio 17.2 (10-20) Glucose 161 H (70-99(Fasting)) mg/dl Calcium 8.8 (8.6-10.3) mg/dl Magnesium 1.7 (1.7-2.4) mg/dl Total Bilirubin 0.8 (0.2-1.0) mg/dl AST 19 (13-39) U/L ALT 12 (7-52) U/L Alkaline Phosphatase 128 H (34-104) U/L Total Protein 6.3 (6.0-8.3) gm/dl Albumin 3.8 (3.4-5.0) gm/dl Globulin 2.5 (2.5-4.0) gm/dl Albumin/Globulin Ratio 1.5 (0.9-2) Lipase 18 (11-82) U/L Procalcitonin (0-0.5) ng/ml 07/27/23 07/27/23 Range/Units 12:50 12:50 WBC (4.8-10.8) K/ul RBC (4.20-5.40) M/uL Hgb (12.0-16.0) g/dl Hct (37.0-47.0) % MCV (80.0-100.0) fL MCH (25.0-34.0) pg MCHC (32.0-36.0) g/dL RDW Std Deviation (36.4-46.3) fL RDW Coeff of Rodrigo (11.5-14.5) % Plt Count (130-400) K/uL MPV (9.4-12.4) fL ESR 17 (0-30) mm/hr PT (9.0-12.0) Seconds INR (0.9-1.1) APTT (21.0-31.0) Seconds PTT Ratio Sodium (136-145) mmol/L Potassium (3.5-5.1) mmol/L Chloride (98-107) mmol/L Carbon Dioxide (21-32) mmol/L Anion Gap (3-11) BUN (6-23) mg/dl Creatinine (0.6-1.2) mg/dl Est Cr Clr Drug Dosing Est GFR ( Amer) ml/min Est GFR (Non-Af Amer) ml/min BUN/Creatinine Ratio (10-20) Glucose (70-99(Fasting)) mg/dl Calcium (8.6-10.3) mg/dl Magnesium (1.7-2.4) mg/dl Total Bilirubin (0.2-1.0) mg/dl AST (13-39) U/L ALT (7-52) U/L Alkaline Phosphatase (34-104) U/L Total Protein (6.0-8.3) gm/dl Albumin (3.4-5.0) gm/dl Globulin (2.5-4.0) gm/dl Albumin/Globulin Ratio (0.9-2) Lipase (11-82) U/L Procalcitonin < 0.05 (0-0.5) ng/ml Imaging Data Attestation: I personally reviewed and interpreted this imaging study as follows: My Impression: CT head: No ICH Radiologist's Impression: Chest X-Ray 07/27/23 12:21 XR chest 1V portable CLINICAL HISTORY: stroke alert COMPARISON STUDY: Chest CT January 08, 2023. Chest radiograph July 17, 2023. PET/CT June 05, 2023. FINDINGS: Right subclavian [id number] is in place. There is no pneumothorax. Small right and trace left pleural effusions are present. Interstitial thickening favors pulmonary edema. Cardiac silhouette is enlarged. This is ac centuated on this hypoventilatory study. IMPRESSION: Cardiomegaly with a small right pleural effusion and mild interstitial pulmonary edema. ACT 112: Negative or not required by law. Electronically signed by: Robe Patterson M.D. 07/27/2023 1:[address] 07/27/23 12:21 CT OF THE HEAD WITHOUT CONTRAST CLINICAL HISTORY: Neuro deficit, acute, stroke suspected COMPARISON STUDY: MRI of the brain November 30, 2018. Head CT June 24, 2022. CT DOSE: 625.80 mGy.cm TECHNIQUE: Helical axial images of the head were obtained without IV contrast. Automated exposure control was utilized for the study. A dose lowering technique was utilized adhering to the principles of ALARA. FINDINGS: No acute intracranial hemorrhage, midline shift or mass effect is present. Multifocal white matter hypodensities are unchanged. The ventricular system is unremarkable. The basal cisterns are patent. No extra-axial collections are present. There are no findings to suggest acute dural sinus thrombosis or acute territorial infarct. No significant calvarial abnormalities are present. Visualized portions of the sinuses and mastoid air cells are clear. IMPRESSION: No acute intracranial findings. No change in appearance of the brain. ACT 112: Negative or not required by law. Electronically signed by: Robe Patterson M.D. 07/27/2023 1:12 PM ECG Data Attestation: I personally reviewed and interpreted this ECG as follows: Rate (beats per minute): 79 Rhythm: + atrial fibrillation ECG Intervals/blocks: + Normal QRS and + Normal QT-c ECG ST segments: + Normal ST segments MDM Narrative Cardiac monitoring: An order was placed for continuous cardiac monitoring. The monitor shows a rate of 80 with atrial fibrilation rhythm interpreted by me No code stroke was called as patient is on Eliquis and symptoms have been present for the last 2 days. Vital signs stable. Labs within normal limits imaging shows no ICH patient be admitted for stroke/TIA work-up admitting hospitalist Dr. Alejo notified. Impression & Plan Stroke-like symptoms Discharge Plan Visit Data Chief Complaint: TIA Symptoms Stated Complaint: SLURRED SPEECH, CONFUSION, HEADACHE ED Provider: Soren Colin Discharge Problem: Stroke-like symptoms Patient Disposition: Admitted As Inpatient Discharge Instructions Interventions: ED Discharge Assessment Last Done: 07/27/23 15:05
--- NOTE | 2023-07-27 17:36 | Electrocardiogram Report ---
Test Reason : Blood Pressure : / mmHG Vent. Rate : 079 BPM Atrial Rate : 000 BPM P-R Int : 000 ms QRS Dur : 088 ms QT Int : 376 ms P-R-T Axes : 000 -21 -06 degrees QTc Int : 431 ms Atrial fibrillation Low voltage QRS Inferior infarct (cited on or before 19-DEC-2021) Cannot rule out Anterior infarct (cited on or before 22-DEC-2022) Abnormal ECG Confirmed by Christopher Monzon ([id number]) on 07/27/2023 5:36:06 PM Referred By: Confirmed By:Ramon Monzon
[2023-07-27] MEDS: DIGOXIN 0.125 MG TAB PO SCH (18:56)
[2023-07-27] MEDS: METOPROLOL TARTRATE 50 MG TAB PO SCH (20:33)
[2023-07-27] MEDS: PANTOprazole 40 MG TAB PO SCH (20:33)
[2023-07-27] MEDS: APIXABAN 5 MG TABLET PO SCH (20:34)
[2023-07-27] MEDS: FAMOTIDINE 20 MG TAB PO SCH (20:34)
[2023-07-28] MEDS: ACETAMINOPHEN 325 MG TAB PO PRN ×3 (02:55→18:18)
[2023-07-28 07:42] LABS: Basophils # (auto) 0.01 K/uL (0.00-0.20); Basophils % (auto) 0.2 %; Eosinophils # (auto) 0.05 K/uL (0.00-0.50); Eosinophils % (auto) 0.9 %; Hematocrit (blood only) 35.1 % (37.0-47.0); Hemoglobin 11.8 g/dl (12.0-16.0); Immature Granulocytes # (auto) 0.03 K/uL (0.01-0.20); Immature Granulocytes % (auto) 0.6 %; Lymphocytes # (auto) 0.66 K/uL (1.20-3.40); Lymphocytes % (auto) 12.4 %; Mean Corpuscular Hgb Conc 33.6 g/dL (32.0-36.0); Mean Corpuscular Volume 104.2 fL (80.0-100.0); Mean Platelet Volume 9.9 fL (9.4-12.4); Monocytes # (auto) 0.55 K/uL (0.11-0.59); Monocytes % (auto) 10.3 %; Neutrophils # (auto) 4.02 K/uL (1.40-6.50); Neutrophils % (auto) 75.6 %; Platelet Count 173 K/uL (130-400); RDW Coefficient of Variation 13.5 % (11.5-14.5); RDW Standard Deviation 51.8 fL (36.4-46.3); Red Blood Count 3.37 M/uL (4.20-5.40); White Blood Count 5.32 K/ul (4.8-10.8)
[2023-07-28 07:51] LABS: Estimated Average Glucose 103 mg/dl; Hemoglobin A1C 5.2 % (4.5-5.6)
[2023-07-28 07:54] LABS: BUN Creatinine Ratio 17.4 (10-20); Calcium 8.7 mg/dl (8.6-10.3); Chol HDL Ratio 3.5 (0-5); Creatinine Clr Calc Pharmacy 61.5 ml/min; Est GFR (African American) 72.6 ml/min; Est GFR (Non-African American) 62.6 ml/min
[2023-07-28] MEDS: ATORVASTATIN 40 MG TAB PO SCH (07:58)
[2023-07-28] MEDS: dilTIAZem HCL 120 MG CAPCR PO SCH (07:59)
[2023-07-28] MEDS: PANTOprazole 40 MG TAB PO SCH ×2 (07:59→19:36)
[2023-07-28] MEDS: buPROPion XL 150 MG TABCR PO SCH (07:59)
[2023-07-28] MEDS: APIXABAN 5 MG TABLET PO SCH ×2 (07:59→19:37)
[2023-07-28] MEDS: allopurinoL 300 MG TAB PO SCH ×2 (07:59→08:00)
[2023-07-28] MEDS: FAMOTIDINE 20 MG TAB PO SCH ×2 (07:59→19:37)
[2023-07-28] MEDS: METOPROLOL TARTRATE 50 MG TAB PO SCH ×3 (07:59→19:37)
[2023-07-28] MEDS: FUROSEMIDE 40 MG/4 ML VIAL IV SCH ×2 (08:06→19:35)
[2023-07-28 09:58] LABS: Appearance Urine Clear (Clear); Bacteria Urine Automated Negative (Negative); Bilirubin Urine Negative (Negative); Blood Urine Negative (Negative); Cast Urine Automated 0 /lpf (0-5); Color Urine Yellow; Epithelial Cell Urine Auto >30 /lpf (0-5); Glucose Urine UA Negative (Negative); Ketones Urine Negative (Negative); Leukocyte Esterase Urine Trace (Negative); Nitrite Urine Negative (Negative); Protein Urine Negative (Negative); RBC Urine Automated 0-4 /hpf (0-4); Specific Gravity Urine 1.013 (1.000-1.030); Urobilinogen Urine Negative (Negative)
--- NOTE | 2023-07-28 11:39 | XCELERA ---
[id number] \\[id number]
[2023-07-28] MEDS: SUCRALFATE 1 GM/10 ML UDC PO SCH ×3 (12:35→19:38)
[2023-07-28] MEDS: ASPIRIN 81 MG ECTAB PO SCH (12:36)
--- NOTE | 2023-07-28 12:51 | Hospitalist Progress Note ---
Date of Service July 28, 2023 Assessment & Plan (1) Stroke-like symptoms: Plan: Several episodes of expressive dysphagia could be TIA symptoms. Low-dose aspirin started. Brain MRI scan negative for CVA. Neurology consultation is not necessary at this time. (2) Acute on chronic diastolic CHF (congestive heart failure): Plan: Parenteral Lasix diuresis. Monitor intake and output. Serial chest x-rays. Blood pressure control (3) Permanent atrial fibrillation: Plan: Continue digoxin, metoprolol, diltiazem for rate control. Eliquis for anticoagulation (4) Generalized abdominal pain: Plan: Actually, localized to epigastric area. No specific findings on abdomen CT scan. We will treat with Protonix and Carafate suspension. No evidence of recurrent lymphoma on CT scan (5) Non Hodgkin's lymphoma: Plan: Treated in the past. Recent abdomen CT scan negative for recurrence Plan Eventual discharge to home Admission and Anticipated Discharge Date Admission Date: July 27, 2023 Subjective Alert and oriented. Pleasant. She has had episodes of expressive dysphagia which sound like TIA symptoms. Brain MRI scan negative for CVA. Low-dose aspirin has been started despite epigastric discomfort which could be acute gastritis. Recent CT scan of the abdomen reveals no significant changes. She appears to have acute on chronic diastolic CHF per chest x-ray. She is now on Lasix diuresis. Repeat cardiac echo is pending. Review of Systems Review of Systems: Constitutional-no fever or chills ENT-no blurred vision, no double vision, no epistaxis, no sore throat Respiratory-no cough, no wheezing, no shortness of breath Cardiac-no palpitations, no chest pain, no syncope GI-epigastric discomfort. Chronic diarrhea. No melena or hematochezia. No vomiting. -no urinary retention, no urinary incontinence, no dysuria, no hematuria Musculoskeletal-no joint pain, no muscle tenderness Skin-no bruising, no rashes, no pruritus Neuro-no isolated weakness, no paresthesia, no weakness Psych-no depression, no anxiety Physical Exam Physical Exam: General-alert and oriented x3, no fevers, no chills HEENT-head atraumatic and normocephalic, pupils equal and reactive to light, extraocular muscles intact Neck-no lymphadenopathy or thyromegaly, trachea midline Chest-diminished breath sounds at both bases. Inspiratory bibasilar rales. No wheezing. i Cardiac-irregular rhythm. Controlled rate. Normal S1 and S2. Abdomen-normal bowel sounds,no hepatosplenomegaly. Epigastric area is tender to palpation. No masses. No rebound or guarding Extremities-no cyanosis, clubbing, or edema Neuro-cranial nerves II through XII intact, motor and sensory function within normal limits, strength symmetrical, no focal deficits Psych-normal affect, normal mood Results & Data Results & Data Vital Signs (Past 12 Hours) Vital Signs Temp Pulse Pulse Pulse Resp BP Pulse Ox 07/28/23 11:43 36.7 C 72 19 134/84 97 07/28/23 11:01 07/28/23 11:01 07/28/23 08:13 36.4 C L 83 20 173/125 H 97 07/28/23 07:53 73 07/28/23 03:30 36.4 C L 64 16 152/93 H 95 Pulse Ox O2 Del Method O2 Del Method 07/28/23 11:43 Room Air 07/28/23 11:01 Room Air 07/28/23 11:01 95 Room Air 07/28/23 08:13 Room Air 07/28/23 07:53 07/28/23 03:30 Room Air Laboratory Results 07/28/23 07:05 07/28/23 07:05 PG Care Time/CCT Total # of Minutes Spent Total Time Spent with Patient: Total time spent is greater than 50% in coordination of care (as documented) at patient's floor/unit and/or counseling patient: Coding Level of Care Code 90881 SUB INP/OBS CARE 3/50MIN Diagnoses Stroke-like symptoms R29.90 Acute on chronic diastolic CHF (congestive heart failure) I50.33 Permanent atrial fibrillation I48.21 Generalized abdominal pain R10.84 Non Hodgkin's lymphoma C85.90
[2023-07-28 15:37] LABS: Adenovirus F 40/41 PCR Not Detected (NotDetected); Astrovirus PCR Not Detected (NotDetected); Campylobacter PCR Not Detected (NotDetected); Cryptosporidium PCR Not Detected (NotDetected); Cyclospora cayetanensis PCR Not Detected (NotDetected); Entamoeba histolytica PCR Not Detected (NotDetected); Enteroaggregative E.coli(EAEC) Not Detected (NotDetected); Enteropathogenic E.coli (EPEC) Not Detected (NotDetected); Enterotoxigenic E.coli (ETEC) Not Detected (NotDetected); Giardia lamblia PCR Not Detected (NotDetected); Norovirus GI/GII PCR Not Detected (NotDetected); Plesiomonas shigelloides PCR Not Detected (NotDetected); Rotavirus A PCR Not Detected (NotDetected); Salmonella PCR Not Detected (NotDetected); Sapovirus PCR Not Detected (NotDetected); Shiga-like Toxin E.coli (STEC) Not Detected (NotDetected); Shigella/Enteroinvasive E.coli Not Detected (NotDetected); Vibrio cholerae PCR Not Detected (NotDetected); Vibrio species PCR Not Detected (NotDetected); Yersinia enterocolitica PCR Not Detected (NotDetected)
[2023-07-28] MEDS: DIGOXIN 0.125 MG TAB PO SCH (16:26)
[2023-07-28] MEDS ORDERED: BUTALBITAL/ACETAMIN/CAFFEINE TAB PO STA (19:48)
[2023-07-29 07:08] LABS: Basophils # (auto) 0.02 K/uL (0.00-0.20); Basophils % (auto) 0.3 %; Eosinophils # (auto) 0.05 K/uL (0.00-0.50); Eosinophils % (auto) 0.8 %; Hematocrit (blood only) 35.7 % (37.0-47.0); Immature Granulocytes # (auto) 0.02 K/uL (0.01-0.20); Immature Granulocytes % (auto) 0.3 %; Lymphocytes # (auto) 0.69 K/uL (1.20-3.40); Lymphocytes % (auto) 11.3 %; Mean Corpuscular Hgb Conc 33.6 g/dL (32.0-36.0); Mean Corpuscular Volume 104.1 fL (80.0-100.0); Mean Platelet Volume 9.9 fL (9.4-12.4); Monocytes # (auto) 0.69 K/uL (0.11-0.59); Monocytes % (auto) 11.3 %; Neutrophils # (auto) 4.66 K/uL (1.40-6.50); Platelet Count 194 K/uL (130-400); RDW Coefficient of Variation 13.5 % (11.5-14.5); RDW Standard Deviation 52.1 fL (36.4-46.3); Red Blood Count 3.43 M/uL (4.20-5.40); White Blood Count 6.13 K/ul (4.8-10.8)
[2023-07-29 07:36] LABS: BUN Creatinine Ratio 16.8 (10-20); Creatinine Clr Calc Pharmacy 49.7 ml/min; Est GFR (African American) 56.6 ml/min; Est GFR (Non-African American) 48.9 ml/min; Potassium 3.6 mmol/L (3.5-5.1)
[2023-07-29] MEDS: ASPIRIN 81 MG ECTAB PO SCH (08:09)
[2023-07-29] MEDS: buPROPion XL 150 MG TABCR PO SCH (08:09)
[2023-07-29] MEDS: dilTIAZem HCL 120 MG CAPCR PO SCH (08:09)
[2023-07-29] MEDS: allopurinoL 300 MG TAB PO SCH (08:09)
[2023-07-29] MEDS: ATORVASTATIN 40 MG TAB PO SCH (08:09)
[2023-07-29] MEDS: APIXABAN 5 MG TABLET PO SCH ×2 (08:09→20:00)
[2023-07-29] MEDS: FUROSEMIDE 40 MG/4 ML VIAL IV SCH ×2 (08:10→20:00)
[2023-07-29] MEDS: FAMOTIDINE 20 MG TAB PO SCH ×2 (08:10→20:00)
[2023-07-29] MEDS: METOPROLOL TARTRATE 50 MG TAB PO SCH ×2 (08:10→20:00)
[2023-07-29] MEDS: SUCRALFATE 1 GM/10 ML UDC PO SCH ×4 (08:10→20:26)
[2023-07-29] MEDS: PANTOprazole 40 MG TAB PO SCH ×2 (08:11→20:00)
[2023-07-29] MEDS ORDERED: HEPARIN 100 UNIT/ML 5ML FLUSH FLUSH PRN (08:43)
--- NOTE | 2023-07-29 11:34 | Gastrointestinal Consultation ---
Date of Consultation July 29, 2023 Assessment & Plan (1) Abdominal pain: (2) Diarrhea: Plan Patient is a 73 y.o. female admitted with stroke-like sx, now improved with abdominal pain, mostly bilateral lower quadrant with diarrhea. 1. Stool for C Diff. 2. Continue Pantoprazole 40 mg BID and Carafate 1 g ACHS. 3. If C Diff negative, could consider trial of antispasmodic. 4. Continue supportive care. Thank you for allowing us to participate in the care of this patient. If you have any questions or concerns, please do not hesitate to contact us. Supervising Physician Co-Signing Physician Notes Agree with MOLLY Wetzel as above Abd: Soft, Tender b/l LQ, ND, +BS Continue current therapy and supportive care No plans for invasive workup History of Present Illness Reason for Consultation: Epigastric pain Requesting Physician: Dr. Ventura Attending Physician: Devon Ventura History of Present Illness Patient is a 73 y.o. female with a history of CHF, permanent atrial fibrillation, NHL, CKD, cirrhosis, and nephrolithiasis admitted with stroke-like symptoms concerning for possible TIA. Brain MRI was unremarkable. She was reportedly confused and with aphasia at the time of admission. This has since improved. GI has been consulted in regard to epigastric pain. States she was having the pain for "a while" and did have a diagnosed EGD by Dr. Foster on 07/12/23 for evaluation of this symptom. The procedure demonstrated evidence of prior Ngoc-en-Y bypass but was unremarkable in regard to symptoms. She has been started on BID PPI, Carafate and Famotidine since admission. Today, the patient reports improved epigastric pain but is having more significant bilateral lower quadrant abdominal pain. She describes the pain as sharp and crampy "like menstrual pain". There is associated abdominal tenderness and loose stools. No bloody or melanotic stools. Hemoglobin was 12.0 this morning. Normal renal panel. Stool Biofire was negative. No C Diff testing was performed. Abdominal imaging prior to admission reviewed. She has undergone a recent CT a/p as well as abdominal series which were unremarkable. Allergies Allergy/AdvReac Type Severity Reaction Status Date / Time No Known Allergies Allergy Verified 07/27/23 14:20 Home Medications Medication Instructions Recorded Confirmed Type spironolactone 25 mg tablet 25 mg PO QAM #90 tabs 08/21/22 07/27/23 Rx (Aldactone) bupropion HCl 150 mg 24 hr tablet, 150 mg PO QAM #90 tabs 01/29/23 07/27/23 Rx extended release apixaban 5 mg tablet (Eliquis) 5 mg PO BID #180 tabs 02/05/23 07/27/23 Rx digoxin 125 mcg (0.125 mg) tablet 0.125 mg PO . DAILY @ 4:00PM 02/11/23 07/27/23 History (Digitek) cholecalciferol (vitamin D3) 25 2,000 unit PO QAM 02/19/23 07/27/23 History mcg (1,000 unit) capsule (Vitamin D3) prochlorperazine maleate 10 mg 10 mg PO Q6H PRN Nausea 05/09/23 07/27/23 History tablet famotidine 20 mg tablet 20 mg PO BID #60 tabs 06/17/23 07/27/23 Rx pantoprazole 20 mg tablet,delayed 20 mg PO BID #180 tabs 06/17/23 07/27/23 Rx release nystatin 100,000 unit/gram topical 1 applic topical HS PRN fungal 06/26/23 07/27/23 Rx powder (Nystop) site #15 grams diltiazem HCl 120 mg 120 mg PO QAM 07/05/23 07/27/23 History capsule,extended release 24 hr (Cardizem CD) sucralfate 1 gram tablet 1 g PO UD 07/05/23 07/27/23 History atorvastatin 40 mg tablet (Lipitor) 40 mg PO QAM #90 tabs 07/19/23 07/27/23 Rx allopurinol 300 mg tablet 300 mg PO DAILY 07/27/23 07/27/23 History metoprolol tartrate 50 mg tablet 50 mg PO TID 07/27/23 07/27/23 History Patient History Medical History (HFpEF) heart failure with preserved ejection fraction f/u dr. hernandez, [facility] [place] Abdominal discomfort, epigastric currently Anticoagulant long-term use B-cell lymphoma dx ~03/2022, chemo tx, last tx ~1-2 months ago @[facility] B12 deficiency Carcinoid tumor PET SCAN AT [facility]> "PLANS TO TREAT FOR B CELL LYMPHOMA SHOULD TREAT CARCINOID TUMOR" Cardiac murmur Mild MR and TR per 10/2022 ECHO Chronic diastolic congestive heart failure Chronic pain of inguinal region Cirrhosis CKD (chronic kidney disease), stage III Current use of longterm anticoagulation Depression Dissection of vertebral artery pt unsure/unaware Fatigue GERD (gastroesophageal reflux disease) History of anemia IRON INFUSIONS IN PAST History of COVID-19 07/2022>RESOLVED History of skin cancer Hx of pancreatitis has had a couple times; most recent was 3 weeks ago, hospitalized at [facility] for 2 nights Hyperlipemia Hypertension Iron deficiency Kidney stones CURRENTLY, NOT CAUSING ISSUES Lesion of ureter biopsy 12/29/2020 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 recent PET scan --- RECENT B CELL LYMPHOMA CONFIRMED, growth has recently stopped due to chemo Morbid obesity Nausea and vomiting Neutropenia Pancytopenia Permanent atrial fibrillation PFO (patent foramen ovale) Suspected per records Prediabetes Sleep apnea NO DEVICE SOB (shortness of breath) on exertion TIA (transient ischemic attack) 2018- [place] - no residual -NO ISSUES SINCE Surgical History H/O: hysterectomy History of bone marrow biopsy History of bowel resection WITH COLOSTOMY R/T SBO History of cardiac radiofrequency ablation D/T AFIB - PT REPORTS HAD 1 BUT MAYBE 2 - NOT SURE DATES ([facility]) History of cardioversion multiple History of colonoscopy (05/2022) History of colostomy r/t bowel blockage History of colostomy reversal History of cystoscopy History of esophagogastroduodenoscopy (EGD) History of gastric bypass History of tubal ligation History of umbilical hernia repair Hx of abdominal surgery FOR REMOVAL OF CYST - PT NOT SURE TYPE Hx of cholecystectomy Hx of laparoscopy Hx of lymph node biopsy Port-A-Cath in place (12/10/22) Access port placement and use of fluoroscopy. Dr. Leger S/P ureteral stent placement Family History Grandmother Diabetes Hypertension Mother Heart disease Hypertension Grandfather Stomach cancer Hypertension Father Pancreatic cancer Hypertension Other No family history of adverse response to anesthesia Denies family history of Ovarian cancer Breast cancer Colorectal cancer Social History Smoking Status: Former smoker Tobacco Type: Cigarettes Second Hand Exposure: No; Do You Dip or Chew Tobacco: No; Tobacco Cessation Education Requested by Patient: No Hx Alcohol Use: No Hx Substance Use: No Preferred Language: Vietnamese Communication Ability: Effective Visual Impairment: No Limitations Hearing Ability: Normal Movie Projectionist Required: No Beliefs That Will Affect Care: None marital status: Current Living Situation: Spouse Current Living Situation Comment: home with 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 status: 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) How many Children do You have: 1 Other 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 Helps Us Care for You: No 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[employer] Feels Safe at Home: Yes Safety Concerns: Feels Safe At This Time Diet: regular caffeine: No Dental Care, Regularly: Yes Physical Activity Frequency: Does not Exercise Seatbelt Use: always Sunscreen Use: No Assistive Devices: Glasses and Walker Review of Systems Constitutional: + fatigue Gastrointestinal: as per Subjective / HPI Psychiatric: as per Subjective / HPI Physical Exam Constitutional: WD/WN, vitals as above Eyes: EOM intact bilaterally Neck: normal appearance Respiratory: normal respiratory effort, lungs clear to auscultation Cardiovascular: Rate/Rhythm: + irregularly irregular Gastrointestinal (Abdomen): Inspection/Auscultation: + hyperactive bowel sounds Percussion/Palpation: + abdomen tender (bilateral lower quadrants) and abdomen soft; no guarding and abdomen not rigid Musculoskeletal: Extremities: no cyanosis no lower extremity edema Skin: no rashes, warm and dry Neurologic: moves all extremities Psychiatric: A+Ox3, euthymic affect Results & Data Vital Signs (Past 12 Hours) Vital Signs Temp Pulse Pulse Resp BP Pulse Ox O2 Del Method 07/29/23 07:00 97 H 07/29/23 07:59 36.7 C 101 H 20 149/85 H 96 Room Air 07/29/23 02:52 37 C 86 18 157/92 H 97 Room Air Diagnostic Findings Laboratory Results WBC 6.13 K/ul (4.8-10.8) 07/29/23 06:16 RBC 3.43 M/uL (4.20-5.40) L 07/29/23 06:16 Hgb 12.0 g/dl (12.0-16.0) 07/29/23 06:16 Hct 35.7 % (37.0-47.0) L 07/29/23 06:16 MCV 104.1 fL (80.0-100.0) H 07/29/23 06:16 MCH 35.0 pg (25.0-34.0) H 07/29/23 06:16 MCHC 33.6 g/dL (32.0-36.0) 07/29/23 06:16 RDW Std Deviation 52.1 fL (36.4-46.3) H 07/29/23 06:16 RDW Coeff of Rodrigo 13.5 % (11.5-14.5) 07/29/23 06:16 Plt Count 194 K/uL (130-400) 07/29/23 06:16 MPV 9.9 fL (9.4-12.4) 07/29/23 06:16 Immature Gran % (Auto) 0.3 % 07/29/23 06:16 Neut % (Auto) 76.0 % 07/29/23 06:16 Lymph % (Auto) 11.3 % 07/29/23 06:16 [place] % (Auto) 11.3 % 07/29/23 06:16 Eos % (Auto) 0.8 % 07/29/23 06:16 Baso % (Auto) 0.3 % 07/29/23 06:16 Neut # (Auto) 4.66 K/uL (1.40-6.50) 07/29/23 06:16 Lymph # (Auto) 0.69 K/uL (1.20-3.40) L 07/29/23 06:16 [place] # (Auto) 0.69 K/uL (0.11-0.59) H 07/29/23 06:16 Eos # (Auto) 0.05 K/uL (0.00-0.50) 07/29/23 06:16 Baso # (Auto) 0.02 K/uL (0.00-0.20) 07/29/23 06:16 Immature Gran # (Auto) 0.02 K/uL (0.01-0.20) 07/29/23 06:16 ESR 17 mm/hr (0-30) 07/27/23 12:50 PT 11.6 Seconds (9.0-12.0) 07/27/23 12:50 INR 1.1 (0.9-1.1) 07/27/23 12:50 APTT 28.2 Seconds (21.0-31.0) 07/27/23 12:50 PTT Ratio 1.0 07/27/23 12:50 Sodium 142 mmol/L (136-145) 07/29/23 06:16 Potassium 3.6 mmol/L (3.5-5.1) 07/29/23 06:16 Chloride 107 mmol/L (98-107) 07/29/23 06:16 Carbon Dioxide 26 mmol/L (21-32) 07/29/23 06:16 Anion Gap 9 (3-11) 07/29/23 06:16 BUN 19 mg/dl (6-23) 07/29/23 06:16 Creatinine 1.13 mg/dl (0.6-1.2) 07/29/23 06:16 Est Cr Clr Drug Dosing 49.7 ml/min 07/29/23 06:16 Est GFR ( Amer) 56.6 ml/min 07/29/23 06:16 Est GFR (Non-Af Amer) 48.9 ml/min 07/29/23 06:16 BUN/Creatinine Ratio 16.8 (10-20) 07/29/23 06:16 Glucose 100 mg/dl (70-99(Fasting)) H 07/29/23 06:16 POC Glucose 108 mg/dl (70-99) H 07/27/23 14:12 Estimat Average Glucose 103 mg/dl 07/28/23 07:05 Hemoglobin A1c 5.2 % (4.5-5.6) 07/28/23 07:05 Calcium 9.0 mg/dl (8.6-10.3) 07/29/23 06:16 Magnesium 1.7 mg/dl (1.7-2.4) 07/27/23 12:50 Total Bilirubin 0.8 mg/dl (0.2-1.0) 07/27/23 12:50 AST 19 U/L (13-39) 07/27/23 12:50 ALT 12 U/L (7-52) 07/27/23 12:50 Alkaline Phosphatase 128 U/L (34-104) H 07/27/23 12:50 B-Natriuretic Peptide 438 pg/ml (0-100) H 07/28/23 08:12 Total Protein 6.3 gm/dl (6.0-8.3) 07/27/23 12:50 Albumin 3.8 gm/dl (3.4-5.0) 07/27/23 12:50 Globulin 2.5 gm/dl (2.5-4.0) 07/27/23 12:50 Albumin/Globulin Ratio 1.5 (0.9-2) 07/27/23 12:50 Triglycerides 154 mg/dl (0-150) H 07/28/23 07:05 Cholesterol 123 mg/dl (0-200) 07/28/23 07:05 LDL Cholesterol, Calc 57 mg/dl 07/28/23 07:05 VLDL Cholesterol, Calc 31 mg/dl (0-30) H 07/28/23 07:05 HDL Cholesterol 35 mg/dl 07/28/23 07:05 Cholesterol/HDL Ratio 3.5 (0-5) 07/28/23 07:05 Lipase 18 U/L (11-82) 07/27/23 12:50 Vitamin B12 200 pg/ml (180-914) 07/28/23 07:05 Procalcitonin < 0.05 ng/ml (0-0.5) 07/27/23 12:50 Urine Color Yellow 07/28/23 09:20 Urine Appearance Clear (Clear) 07/28/23 09:20 Urine pH 5.0 (4.5-7.5) 07/28/23 09:20 Ur Specific Stratton 1.013 (1.000-1.030) 07/28/23 09:20 Urine Protein Negative (Negative) 07/28/23 09:20 Urine Glucose (UA) Negative (Negative) 07/28/23 09:20 Urine Ketones Negative (Negative) 07/28/23 09:20 Urine Blood Negative (Negative) 07/28/23 09:20 Urine Nitrite Negative (Negative) 07/28/23 09:20 Urine Bilirubin Negative (Negative) 07/28/23 09:20 Urine Urobilinogen Negative (Negative) 07/28/23 09:20 Ur Leukocyte Esterase Trace (Negative) H 07/28/23 09:20 Urine WBC (Auto) 1-5 /hpf (0-5) 07/28/23 09:20 Urine RBC (Auto) 0-4 /hpf (0-4) 07/28/23 09:20 U Hyaline Cast (Auto) 0 /lpf (0-5) 07/28/23 09:20 U Epithel Cells (Auto) >30 /lpf (0-5) H 07/28/23 09:20 Urine Bacteria (Auto) Negative (Negative) 07/28/23 09:20 Stl C. cayetanensis PCR Not Detected (NotDetected) 07/28/23 13:59 Stool Rotavirus A PCR Not Detected (NotDetected) 07/28/23 13:59 Stl Adenov F 40/41 PCR Not Detected (NotDetected) 07/28/23 13:59 Stool Astrovirus (PCR) Not Detected (NotDetected) 07/28/23 13:59 Stool Campylobacter PCR Not Detected (NotDetected) 07/28/23 13:59 Stool Cryptosporidium PCR Not Detected (NotDetected) 07/28/23 13:59 Stl E.coli Shiga Tox PCR Not Detected (NotDetected) 07/28/23 13:59 Stl Enterotoxigenic E PCR Not Detected (NotDetected) 07/28/23 13:59 Stool EPEC (PCR) Not Detected (NotDetected) 07/28/23 13:59 Stool EAEC (PCR) Not Detected (NotDetected) 07/28/23 13:59 Stl E. histolytica PCR Not Detected (NotDetected) 07/28/23 13:59 Stool Giardia Lamblia PCR Not Detected (NotDetected) 07/28/23 13:59 Stool Salmonella PCR Not Detected (NotDetected) 07/28/23 13:59 Stool Sapovirus (PCR) Not Detected (NotDetected) 07/28/23 13:59 Stl P. shigelloides PCR Not Detected (NotDetected) 07/28/23 13:59 Stl Shigella/EIEC PCR Not Detected (NotDetected) 07/28/23 13:59 St Y.enterocolitica PCR Not Detected (NotDetected) 07/28/23 13:59 Stool Vibrio (PCR) Not Detected (NotDetected) 07/28/23 13:59 Stl Vibrio cholerae PCR Not Detected (NotDetected) 07/28/23 13:59 Stl Norovirus GI/GII PCR Not Detected (NotDetected) 07/28/23 13:59 Impressions Chest X-Ray 07/27/23 12:21 XR chest 1V portable CLINICAL HISTORY: stroke alert COMPARISON STUDY: Chest CT January 08, 2023. Chest radiograph July 17, 2023. PET/CT June 05, 2023. FINDINGS: Right subclavian [id number]-Cchm is in place. There is no pneumothorax. Small right and trace left pleural effusions are present. Interstitial thickening favors pulmonary edema. Cardiac silhouette is enlarged. This is accentuated on this hypoventilatory study. IMPRESSION: Cardiomegaly with a small right pleural effusion and mild interstitial pulmonary edema. ACT 112: Negative or not required by law. Electronically signed by: Robe Patterson M.D. 07/27/2023 1:[address] 07/27/23 12:21 CT OF THE HEAD WITHOUT CONTRAST CLINICAL HISTORY: Neuro deficit, acute, stroke suspected COMPARISON STUDY: MRI of the brain November 30, 2018. Head CT June 24, 2022. CT DOSE: 625.80 mGy.cm TECHNIQUE: Helical axial images of the head were obtained without IV contrast. Automated exposure control was utilized for the study. A dose lowering technique was utilized adhering to the principles of ALARA. FINDINGS: No acute intracranial hemorrhage, midline shift or mass effect is present. Multifocal white matter hypodensities are unchanged. The ventricular system is unremarkable. The basal cisterns are patent. No extra-axial collect ions are present. There are no findings to suggest acute dural sinus thrombosis or acute territorial infarct. No significant calvarial abnormalities are present. Visualized portions of the sinuses and mastoid air cells are clear. IMPRESSION: No acute intracranial findings. No change in appearance of the brain. ACT 112: Negative or not required by law. Electronically signed by: Robe Patterson M.D. 07/27/2023 1:12 PM Brain MRI 07/27/23 14:46 MRI OF THE BRAIN WITHOUT AND WITH IV CONTRAST CLINICAL HISTORY: expressive dysphasia COMPARISON STUDY: Head CT July 27, 2023. MRI of the brain November 30, 2018. TECHNIQUE: Utilizing a 1.5 Holly magnet and dedicated coil, multiplanar, multiecho imaging of the brain was performed pre and postcontrast administration. IV administration of 9 mL of Gadavist contrast was uneventful. Thin cut T1 post contrast imaging was performed. FINDINGS: There are no foci of restricted diffusion to suggest acute infarct. No acute intracranial hemorrhage, midline shift or mass effect is present. Prominent of the extra-axial spaces is unchanged. There is no intracranial mass or pathologic enhancement. Extensive white matter T2 hyperintense foci are similar to previous MRI. A 2.5 cm T1 hypointense right frontal bone lesion remains unchanged since previous MRI. No evidence for sinusitis. Orbits are unremarkable on this nondedicated exam. IMPRESSION: 1. No acute intracranial findings. 2. No sniffing change in appearance of the brain since MRI of November 30, 2018. ACT 112: Negative or not required by law. Electronically signed by: Robe Patterson M.D. 07/27/2023 4:36 PM PG Care Time/CCT Total # of Minutes Spent Total Time Spent with Patient: Total time spent is greater than 50% in coordination of care (as documented) at patient's floor/unit and/or counseling patient: Coding Level of Care Code 88447 INT INP/OBS CARE 3/75MIN Diagnoses Abdominal pain R10.84 Abdominal location: generalized Diarrhea R19.7 (1) Abdominal pain Abdominal location: generalized Qualified Code(s): R10.84 - Generalized abdominal pain
[2023-07-29] MEDS: ACETAMINOPHEN 325 MG TAB PO PRN ×2 (12:02→19:56)
[2023-07-29] MEDS ORDERED: diphenhydrAMINE 50 MG/ML VIAL IV ONE (12:05)
[2023-07-29] MEDS ORDERED: PROCHLORPERAZINE 10 MG in SYRINGE 8 ML IV ONE (12:15)
[2023-07-29] MEDS: DIGOXIN 0.125 MG TAB PO SCH (16:37)
--- NOTE | 2023-07-29 16:44 | Emergency Department Note ---
ED Visit Note I was consulted by the Advanced Practice Provider. I saw the patient personally and performed a substantive portion of the visit. This includes aspects of the HPI, MDM, diagnostic interpretations, and disposition/plan. .
--- NOTE | 2023-07-29 22:19 | Hospitalist Progress Note ---
Date of Service July 29, 2023 Assessment & Plan (1) Stroke-like symptoms: Plan: Several episodes of expressive dysphagia could be TIA symptoms. Low-dose aspirin started. Brain MRI scan negative for CVA. Neurology consultation will be placed. Unsure if this is a TIA. This could be a complex migraine. atient recived and tolerated benadryl and compazine. (2) Acute on chronic diastolic CHF (congestive heart failure): Plan: Parenteral Lasix diuresis. Monitor intake and output. Serial chest x-rays. Blood pressure control (3) Permanent atrial fibrillation: Plan: Continue digoxin, metoprolol, diltiazem for rate control. Eliquis for anticoagulation (4) Generalized abdominal pain: Plan: Actually, localized to epigastric area. No specific findings on abdomen CT scan. We will treat with Protonix and Carafate suspension. No evidence of recurrent lymphoma on CT scan (5) Non Hodgkin's lymphoma: Plan: Treated in the past. Recent abdomen CT scan negative for recurrence Plan Eventual discharge to home Admission and Anticipated Discharge Date Admission Date: July 29, 2023 Subjective Patient reported having aphasia yesterday with a headache which improved with fioricet. Patient reports this happened again. Her reports that her words were unintelligible and sounded like Venezuelan and she does not speak Venezuelan. Review of Systems Review of Systems: All systems reviewed & are unremarkable except as noted in HPI & below Physical Exam Physical Exam: Constitutional: WD/WN, vitals as above Eyes: PERRL, conjunctivae normal, anicteric sclerae ENMT: external ear and nose normal, oropharynx normal Respiratory: normal respiratory effort; no respiratory distress Cardiovascular: Rate/Rhythm: regular rate and + irregularly irregular Extremities: normal capillary refill; no calf tenderness and no pedal edema Gastrointestinal (Abdomen): normal bowel sounds, soft, nontender, no hepatosplenomegaly Musculoskeletal: no cyanosis or clubbing, extremities motor strength 5/5 Skin: no rashes, warm and dry Neurologic: moves all extremities and awake; no focal motor deficits and not confused Speech / Cognition: normal speech Psychiatric: A+Ox3, euthymic affect Genitourinary: no CVA tenderness Results & Data Results & Data Vital Signs (Past 12 Hours) Vital Signs Temp Pulse Pulse Resp BP BP Pulse Ox 07/29/23 20:12 36.6 C 66 18 110/71 92 07/29/23 16:09 36.8 C 73 16 120/79 96 07/29/23 15:20 80 07/29/23 11:00 07/29/23 11:45 36.5 C 70 16 111/71 96 Pulse Ox O2 Del Method O2 Del Method 07/29/23 20:12 Room Air 07/29/23 16:09 Room Air 07/29/23 15:20 07/29/23 11:00 97 Room Air 07/29/23 11:45 Room Air PG Care Time/CCT Total # of Minutes Spent Total Time Spent with Patient: Total time spent is greater than 50% in coordination of care (as documented) at patient's floor/unit and/or counseling patient: Coding Level of Care Code 56240 SUB INP/OBS CARE 2/35MIN Diagnoses Stroke-like symptoms R29.90 Acute on chronic diastolic CHF (congestive heart failure) I50.33 Permanent atrial fibrillation I48.21 Generalized abdominal pain R10.84 Non Hodgkin's lymphoma C85.90
[2023-07-30] MEDS ORDERED: BUTALBITAL/ACETAMIN/CAFFEINE TAB PO STA (05:13)
[2023-07-30 06:10] LABS: Basophils # (auto) 0.01 K/uL (0.00-0.20); Basophils % (auto) 0.2 %; Eosinophils # (auto) 0.07 K/uL (0.00-0.50); Eosinophils % (auto) 1.2 %; Hematocrit (blood only) 36.9 % (37.0-47.0); Hemoglobin 12.6 g/dl (12.0-16.0); Immature Granulocytes # (auto) 0.02 K/uL (0.01-0.20); Immature Granulocytes % (auto) 0.4 %; Lymphocytes # (auto) 0.84 K/uL (1.20-3.40); Lymphocytes % (auto) 14.7 %; Mean Corpuscular Hgb Conc 34.1 g/dL (32.0-36.0); Mean Corpuscular Volume 102.5 fL (80.0-100.0); Mean Platelet Volume 9.7 fL (9.4-12.4); Monocytes # (auto) 0.71 K/uL (0.11-0.59); Monocytes % (auto) 12.5 %; Neutrophils # (auto) 4.05 K/uL (1.40-6.50); Platelet Count 199 K/uL (130-400); RDW Coefficient of Variation 13.3 % (11.5-14.5)
[2023-07-30 06:19] LABS: BUN Creatinine Ratio 18.2 (10-20); Calcium 8.9 mg/dl (8.6-10.3); Creatinine Clr Calc Pharmacy 42.9 ml/min; Est GFR (African American) 46.9 ml/min; Est GFR (Non-African American) 40.5 ml/min; Potassium 3.8 mmol/L (3.5-5.1)
[2023-07-30] MEDS: allopurinoL 300 MG TAB PO SCH (08:29)
[2023-07-30] MEDS: PANTOprazole 40 MG TAB PO SCH (08:30)
[2023-07-30] MEDS: METOPROLOL TARTRATE 50 MG TAB PO SCH (08:30)
[2023-07-30] MEDS: FAMOTIDINE 20 MG TAB PO SCH (08:30)
[2023-07-30] MEDS: SUCRALFATE 1 GM/10 ML UDC PO SCH ×3 (08:30→17:18)
[2023-07-30] MEDS: APIXABAN 5 MG TABLET PO SCH (08:30)
[2023-07-30] MEDS: ASPIRIN 81 MG ECTAB PO SCH (08:30)
[2023-07-30] MEDS: FUROSEMIDE 40 MG/4 ML VIAL IV SCH (08:31)
[2023-07-30] MEDS: buPROPion XL 150 MG TABCR PO SCH (08:31)
[2023-07-30] MEDS: ATORVASTATIN 40 MG TAB PO SCH (08:31)
[2023-07-30] MEDS: dilTIAZem HCL 120 MG CAPCR PO SCH (08:31)
[2023-07-30] MEDS: ACETAMINOPHEN 325 MG TAB PO PRN ×2 (09:48→16:10)
--- NOTE | 2023-07-30 10:27 | Neurology Consultation ---
Date of Consultation July 30, 2023 Assessment & Plan (1) Complicated migraine: (2) Chronic cerebral ischemia: (3) History of TIA (transient ischemic attack): Plan Patient has had the onset of episodes intermittently of expressive aphasia and headache. She can have headaches without other symptoms also. On neurologic examination she has no focal findings, meningeal signs, or encephalopathy. She is quite normal/back to baseline currently. MRI of the brain showed no acute stroke but she does have [id number] old small-vessel ischemic disease. 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 We could consider carotid ultrasound and MR angiography of the head (avoid contrast). This could be done as an inpatient or outpatient. 2. Consider low-dose verapamil (120 mg ER) each morning, which is my drug of choice to prevent vasospasm (complicated migraine). 3. I have no further neurologic recommendations to make at this time. Please contact me if I can be of further assistance. Overall, I spent a total of 75 minutes with this case including review of records, review of MRI films, report generation, direct evaluation the patient at bedside, and discussion of the case with the patient, , and RN at bedside as well as Dr. Ventura including differential diagnosis and treatment options. History of Present Illness Reason for Consultation: Patient is a 73-year-old, who I was asked to see the request of Dr. Ventura, neurologic consultation regarding stroke-like symptoms. Requesting Physician: Dr. 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 Recently, she was discovered to have B-cell lymphoma (diffuse non-Hodgkin's lymphoma, large cell) and the carcinoid tumor was increasing. She has a history of Ngoc-en-Y gastric bypass with iron and B12 deficiency in the past. The patient received multiple doses of R-CHOP starting December 2022 and completed 6 cycles in April of 2023. Apparently, a recent PET-CT showed improvement in all of her cancer diagnoses. She is followed by [facility]. Jade[facility] The patient had an episode in 2018 of headache and blurry vision, and ended up being admitted. An MRI of the brain showed no acute CVA but had moderate old small-vessel ischemic disease. She was not put on any antiplatelet medication. A TIA diagnosis was given at that time. The patient does not have a history of migraine headaches. She started getting headaches about a month ago. She can have intermittent headaches lasting up to 4 hours without any other symptoms (most recent was 4:00 a.m. this morning). They tend to be left or bifrontal and dull to sharp. She could have lightheadedness or blurry vision associated, but tends not to get nausea, vomiting, photophobia, or phonophobia. Over the last week she is had several episodes of headache and difficulty speaking occurring at once. This would occur suddenly without warning. She could comprehend what people say to her but even trying to figure out what she wanted to say was difficult. According to her spouse who was present in the room, she would be jumbled and difficult to understand. The speech problem and the headache would be together and then both resolve the same time. She was admitted July 27. CBC showed an elevated MCV and slight anemia. Chem profile was largely unremarkable. On admission a beta protein was elevated at 438. Triglycerides 154 total cholesterol 123. Vitamin B12 was 200. An MRI of the brain obtained July 27 was remarkable for [id number] old small-vessel ischemic disease (fairly similar to the scan of 2018). There was mild generalized atrophy but no acute stroke. I reviewed these films. Today she feels much better with no speech issues her headaches. She has no weakness or numbness in the limbs or other pain except for her left shoulder. She is in permanent AFib at a rate is in the 80s and 90s since admission. Allergies Allergy/AdvReac Type Severity Reaction Status Date / Time No Known Allergies Allergy Verified 07/27/23 14:20 Home Medications Medication Instructions Recorded Confirmed Type spironolactone 25 mg tablet 25 mg PO QAM #90 tabs 08/21/22 07/27/23 Rx (Aldactone) bupropion HCl 150 mg 24 hr tablet, 150 mg PO QAM #90 tabs 01/29/23 07/27/23 Rx extended release apixaban 5 mg tablet (Eliquis) 5 mg PO BID #180 tabs 02/05/23 07/27/23 Rx digoxin 125 mcg (0.125 mg) tablet 0.125 mg PO . DAILY @ 4:00PM 02/11/23 07/27/23 History (Digitek) cholecalciferol (vitamin D3) 25 2,000 unit PO QAM 02/19/23 07/27/23 History mcg (1,000 unit) capsule (Vitamin D3) prochlorperazine maleate 10 mg 10 mg PO Q6H PRN Nausea 05/09/23 07/27/23 History tablet famotidine 20 mg tablet 20 mg PO BID #60 tabs 06/17/23 07/27/23 Rx pantoprazole 20 mg tablet,delayed 20 mg PO BID #180 tabs 06/17/23 07/27/23 Rx release nystatin 100,000 unit/gram topical 1 applic topical HS PRN fungal 06/26/23 07/27/23 Rx powder (Nystop) site #15 grams diltiazem HCl 120 mg 120 mg PO QAM 07/05/23 07/27/23 History capsule,extended release 24 hr (Cardizem CD) sucralfate 1 gram tablet 1 g PO UD 07/05/23 07/27/23 History atorvastatin 40 mg tablet (Lipitor) 40 mg PO QAM #90 tabs 07/19/23 07/27/23 Rx allopurinol 300 mg tablet 300 mg PO DAILY 07/27/23 07/27/23 History metoprolol tartrate 50 mg tablet 50 mg PO TID 07/27/23 07/27/23 History Patient History Medical History (HFpEF) heart failure with preserved ejection fraction f/u dr. hernandez, [facility] Abdominal discomfort, epigastric currently Anticoagulant long-term use B-cell lymphoma dx ~03/2022, chemo tx, last tx ~1-2 months ago @[facility] B12 deficiency Carcinoid tumor PET SCAN AT [facility]> "PLANS TO TREAT FOR B CELL LYMPHOMA SHOULD TREAT CARCINOID TUMOR" Cardiac murmur Mild MR and TR per 10/2022 ECHO Chronic diastolic congestive heart failure Chronic pain of inguinal region Cirrhosis CKD (chronic kidney disease), stage III Current use of [facility] anticoagulation Depression Dissection of vertebral artery pt unsure/unaware Fatigue GERD (gastroesophageal reflux disease) History of anemia IRON INFUSIONS IN PAST History of COVID-19 07/2022>RESOLVED History of skin cancer Hx of pancreatitis has had a couple times; most recent was 3 weeks ago, hospitalized at [facility] for 2 nights Hyperlipemia Hypertension Iron deficiency Kidney stones CURRENTLY, NOT CAUSING ISSUES Lesion of ureter biopsy 12/29/2020 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 recent PET scan --- RECENT B CELL LYMPHOMA CONFIRMED, growth has recently stopped due to chemo Morbid obesity Nausea and vomiting Neutropenia Pancytopenia Permanent atrial fibrillation PFO (patent foramen ovale) Suspected per records Prediabetes Sleep apnea NO DEVICE SOB (shortness of breath) on exertion TIA (transient ischemic attack) 2018- [place] - no residual -NO ISSUES SINCE Surgical History H/O: hysterectomy History of bone marrow biopsy History of bowel resection WITH COLOSTOMY R/T SBO History of cardiac radiofrequency ablation D/T AFIB - PT REPORTS HAD 1 BUT MAYBE 2 - NOT SURE DATES ([facility]) History of cardioversion multiple History of colonoscopy (05/2022) History of colostomy r/t bowel blockage History of colostomy reversal History of cystoscopy History of esophagogastroduodenoscopy (EGD) History of gastric bypass History of tubal ligation History of umbilical hernia repair Hx of abdominal surgery FOR REMOVAL OF CYST - PT NOT SURE TYPE Hx of cholecystectomy Hx of laparoscopy Hx of lymph node biopsy Port-A-Cath in place (12/10/22) Access port placement and use of fluoroscopy. Dr. Leger S/P ureteral stent placement Family History (Updated 07/30/23 @ 10:17 by Eliseo Noble MD) Grandmother Diabetes Hypertension Mother Heart disease Hypertension Grandfather Stomach cancer Hypertension Father , early 80s of pancreatic cancer Pancreatic cancer Hypertension Other No family history of adverse response to anesthesia Denies family history of Ovarian cancer Breast cancer Colorectal cancer Social History (Updated 07/30/23 @ 10:18 by Eliseo Noble MD) Smoking Status: Former smoker Tobacco Type: Cigarettes Age Started Using Tobacco: 20; Age Quit Using Tobacco: 42; packs per day: 1; Second Hand Exposure: No; Do You Dip or Chew Tobacco: No; Hx Alcohol Use: No Hx Substance Use: No Preferred Language: Italian Communication Ability: Effective Visual Impairment: No Limitations Hearing Ability: Normal Citizenship Teacher Required: No Beliefs That Will Affect Care: None marital status: Current Living Situation: Spouse Current Living Situation Comment: home with 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 status: retired 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) How many Children do You have: 1 other: [employer] Feels Safe at Home: Yes Diet: regular caffeine: No Dental Care, Regularly: Yes Physical Activity Frequency: Does not Exercise Seatbelt Use: always Sunscreen Use: No Assistive Devices: Glasses and Walker Review of Systems Constitutional: + fatigue; no fever and no weakness Eyes: no diplopia, no eye pain and no worsening vision Ear, Nose, Mouth, Throat: no ear pain, no tinnitus, no hearing loss, no dizziness, no snoring, no hoarseness and no dysphagia Respiratory: no cough and no dyspnea Cardiovascular: no chest pain, no palpitations and no lightheadedness Gastrointestinal: no abdominal pain, no nausea and no vomiting Genitourinary: no dysuria, no urinary frequency and no urinary incontinence Musculoskeletal: no back pain, no neck pain, no radicular pain, no joint pain and no myalgia Integumentary: no rash and no lesions Neurologic: + headache(s) and + abnormal speech; no gait abnormality, no localized weakness, no generalized weakness, no tingling, no numbness, no tremor(s), no abnormal movements, no confusion and no memory loss Psychiatric: no depression, no irritability, no anxiety, no difficulty concentrating, no confusion and no hallucinations Endocrine: no fatigue and no flushing Hematologic / Lymphatic: no easy bleeding and no easy bruising Allergy / Immunological: no urticaria and no problem reported Exam (Neuro) Physical Exam: The patient is right-handed. The patient is awake, alert, and attentive. Speech is normal without any aphasia or dysarthria. The patient can name objects, repeat phrases, and has normal spontaneous speech. Mentation and thought processes are intact, with orientation to person, place and time, and normal fund of knowledge. Attention and concentration are normal. Mood and affect are normal and appropriate. General appearance and grooming are normal. Short and long-term memory are intact. Pupils are 4 mm bilaterally and reactive to light. Extraocular eye muscles are intact without nystagmus. Visual acuity and visual angel seem normal grossly to confrontation. There are no deficits to sensation in the face in all 3 distributions of the fifth cranial nerve bilaterally. Corneal reflexes are positive bilaterally. Facial strength and symmetry was normal bilaterally. Hearing seems normal bilaterally. Palate moves well without asymmetry. There is normal sternocleidomastoid and trapezius (shoulder shrug) strength bilaterally. Tongue is midline with good strength bilaterally. Neck has a full range of motion without discomfort. There are no cervical bruits bilaterally. There are no cranial or ocular bruits. Heart is without murmur. There is a regular rhythm and rate. Cervical, thoracic, and lumbar spine are nontender to palpation. Gait is narrow based, with good arm swing, turns, and stance. Balance is normal eyes open or closed. With outstretched arms there is no drift. There are no resting, postural, or action tremors. There is no ataxia with finger to nose testing. There is good facility in the hands. No other abnormal involuntary movements are noted. Motor strength is 5/5 diffusely in the arms bilaterally including deltoids, biceps, triceps, brachioradialis, wrist flexors and extensors, retort engineer, and intrinsic hand muscles. Motor strength is 5/5 diffusely in the legs bilaterally including hip flexors, quadriceps, hamstrings, gastrocnemius, tibialis anterior, tibialis posterior, and Peroneii muscles. Toe extensors are normal and there is good bulk in the extensor digitorum brevis muscles bilaterally. The limbs have good tone without rigidity or spasticity. There is no atrophy noted in the muscles. Muscle bulk is normal, there is no tenderness to palpation, no myotonia to percussion, and no fasciculations seen. Sensory examination is intact to touch and pin throughout all 4 limbs diffusely. Reflexes are 9/4 in the biceps, triceps, brachioradialis, quadriceps, and Achilles tendons bilaterally. There is no clonus bilaterally. Toes are downgoing with plantar stimulation bilaterally. Peripheral pulses are present and of normal quality distally in all 4 limbs. There is no peripheral edema noted in the limbs. Results & Data Vital Signs (Past 12 Hours) Vital Signs Temp Pulse Pulse Resp BP Pulse Ox O2 Del Method 07/30/23 07:46 36.6 C 93 H 19 143/88 H 97 Room Air 07/30/23 07:45 77 07/30/23 03:07 36.6 C 78 20 142/78 H 96 Room Air 07/30/23 00:25 36.8 C 79 20 117/72 95 Room Air PG Care Time/CCT Total # of Minutes Spent Total Time Spent with Patient: Total time spent is greater than 50% in coordination of care (as documented) at patient's floor/unit and/or counseling patient: Coding Level of Care Code 13008 INT INP/OBS CARE 3/75MIN Diagnoses Complicated migraine G43.109 Chronic cerebral ischemia I67.82 History of TIA (transient ischemic attack) Z86.73 Time Spent (min) 75
[2023-07-30] MEDS ORDERED: LACTATED RINGER'S 1,000 ML IV SCH (10:45)
--- NOTE | 2023-07-30 10:48 | Communication Note ---
Date of Service: July 30, 2023 Acute kidney failure Likely iatrogenic, will hold lasix further. Will give IVF. Baseline Cr 0.93 which as trended up to 1.32 Treatment: daily wts, I/O, tele monitoring Risk Factor(s): IV lasix for acute diastolic CHF
--- NOTE | 2023-07-30 10:49 | Discharge Summary ---
Date of Service July 30, 2023 Admission HPI Per Admitting Provider Tea Dawkins is a 73 year old female who presents to the ER with confusion, headache and aphasia. She reports her symptoms started yesterday around 10am following her CT scan for routine follow up of her B cell lymphoma. She went to urgent care with dysphasia and therefore was sent to [place] [facility] where she had a CT and was reportedly told she did not have a stroke and was discharged. She reports still having some dysphasia but it is improving. No coughing or choking after swallowing. She also reports generalized weakness and confusion with this. No fever, chills, cough, shortness of breath, urinary symptoms or new GI symptoms with this. She does note ongoing generalized abdominal pain although this is ongoing since her cancer diagnosis and CT yesterday showed no acute findings and it is not worse than then and ongoing for weeks. She denies any one sided weakness, change in vision or hearing. She has atrial fibrillation and is compliant Eliquis. Principal Diagnosis complex migraine Discharge Exam Constitutional: WD/WN, vitals as above Eyes: PERRL, conjunctivae normal, anicteric sclerae ENMT: external ear and nose normal, oropharynx normal Respiratory: normal respiratory effort; no respiratory distress Cardiovascular: Rate/Rhythm: regular rate Extremities: normal capillary refill; no calf tenderness and no pedal edema Gastrointestinal (Abdomen): normal bowel sounds, soft, nontender, no hepatosplenomegaly Musculoskeletal: no cyanosis or clubbing, extremities motor strength 5/5 Skin: no rashes, warm and dry Neurologic: moves all extremities and awake; no focal motor deficits and not confused Speech / Cognition: normal speech Psychiatric: A+Ox3, euthymic affect Genitourinary: no CVA tenderness Discharge Data Allergies Allergy/AdvReac Type Severity Reaction Status Date / Time No Known Allergies Allergy Verified 07/31/23 11:01 Consultations 07/27/23 13:26 ED Decision to Admit Stat 07/29/23 11:06 Consult Gastroenterology Routine 07/29/23 11:53 Consult Neurology Routine Ordered Studies 07/27/23 12:21 CT head/brain wo con Stat 07/27/23 14:46 MRI Brain [MR brain wo/w con] Stat Hospital Course (1) Stroke-like symptoms: Several episodes of expressive dysphagia could be TIA symptoms. Low-dose aspirin started. Brain MRI scan negative for CVA. Neurology consultation will be placed. This could be a complex migraine. Patient recived and tolerated benadryl and compazine. recommend followup with Neuro as an outpatient. CTA head/neck obtained. No urgent intervention needed (2) Acute on chronic diastolic CHF (congestive heart failure): Parenteral Lasix diuresis. Monitor intake and output. Serial chest x-rays. Blood pressure control hold further lasix (3) Permanent atrial fibrillation: Continue digoxin, metoprolol, diltiazem for rate control. Eliquis for anticoagulation (4) Generalized abdominal pain: Actually, localized to epigastric area. No specific findings on abdomen CT scan. We will treat with Protonix and Carafate suspension. No evidence of recurrent lymphoma on CT scan (5) Non Hodgkin's lymphoma: Treated in the past. Recent abdomen CT scan negative for recurrence Acute kidney failure Baseline Cr 0.93 which as trended up to 1.32 Treatment: daily wts, I/O, tele monitoring Risk Factor(s): IV lasix for acute diastolic CHF Likely iatrogenic, will hold further lasix and monitor as an outpatient. Plan Eventual discharge to home Total Time Total Time Spent Total Time Spent (In Minutes): 32 Discharge Plan Discharge Items Patient Disposition: Home - Self-Care Reason For Visit: STROKE-LIKE SYMPTOMS Discharge Diagnosis: stroke like symptoms Activity: Resume your previous activity Non-emergency contact: Primary Care Provider Call non-emergency contact if: you have any medication questions Follow-up/Referrals: Christopher Guevara MD [Primary Care Provider] - 08/06/23 2:00 pm (APPT. WITH Gerald ESCOTO PA-C) Diet: Heart Healthy Addtl Attending Provider Instructions: Recommend followup with Neurology in 2-3 weeks It appears this is a complex migraine. The migraine is causing your symptoms of difficulty speaking. We will switch your diltiazem to verapamil. This will help decrease your episodes. Please continue to take Tylenol as needed. We will also recommend cutting back on your digoxin to one dose every 2 days. It was a pleasure taking care of you Mrs. Dawkins. I wish you the best. Kindest regards, Devon Audrey Pending Studies at Discharge: No Stand-Alone Forms: My [facility] Oxigene, Smoking Cessation Medications and DC Order Prescriptions: New aspirin 81 mg Tablet,Delayed Release (Dr/Ec) 81 mg PO QAM Qty: 30 0RF verapamil 120 mg tablet extended release 120 mg PO DAILY Qty: 30 0RF Continued spironolactone [Aldactone] 25 mg tablet 25 mg PO QAM Qty: 90 3RF bupropion HCl 150 mg tablet extended release 24 hr 150 mg PO QAM Qty: 90 3RF Eliquis 5 mg tablet 5 mg PO BID Qty: 180 3RF cholecalciferol (vitamin D3) [Vitamin D3] 25 mcg (1,000 unit) capsule 2,000 unit PO QAM nystatin [Nystop] 100,000 unit/gram powder 1 applic topical HS PRN (Reason: fungal site) Qty: 15 1RF atorvastatin [Lipitor] 40 mg tablet 40 mg PO QAM Qty: 90 3RF pantoprazole 20 mg tablet,delayed release (DR/EC) 20 mg PO BID Qty: 180 3RF Changed digoxin [Digitek] 125 mcg (0.125 mg) tablet 0.125 mg PO Q2D@1600 Qty: 15 0RF Discontinued diltiazem HCl [Cardizem CD] 120 mg capsule,extended release 24hr 120 mg PO QAM No Action metoprolol tartrate 50 mg tablet 50 mg PO BID Patient Comments: PER SHE TAKES 50MG BID. CONFIRMED 07/31. folic acid 1 mg tablet 1 mg PO DAILY Patient Comments: CONFIRMED W/ 07/31 Discharge Orders: Discharge Order (Routine); Ordered 07/30/23 Ordered By: Devon Ventura Admission Data Admit Date/Time: 07/29/23 11:07 Attending Provider: Devon Ventura Admit Provider: Rafael Alejo Primary Care Provider: Christopher Guevara Other Providers: Rafael Alejo ; Sarina Bell ; Ashwin Foster ; Fara Fox ; Kae Montalvo ; Rebeka Gonzalez ; Shirley Benavidez ; Alfonso Craig ; Jimmy Mora ; Boris Espinoza ; Dominique Sharif ; Alejandro Quevedo ; Claritza Barnard ; Daija Diaz ; Mary Anne Marcus ; Shelia Padron ; Sussy Huffman ; Neo Griffin ; Benigno Hurt ; Sapna Merino ; Alba Tyson Jr ; Eliseo Noble Other Interventions: Discharge Summary Assessment (RN) Last Done: 07/30/23 18:12 Coding Level of Care Code 05790 INP/OBS DISCH >30 MIN Diagnoses Stroke-like symptoms R29.90 Acute on chronic diastolic CHF (congestive heart failure) I50.33 Permanent atrial fibrillation I48.21 Generalized abdominal pain R10.84 Non Hodgkin's lymphoma C85.90
[2023-07-30] MEDS ORDERED: IOVERSOL 350 MG 125mL Prefilled Syringe IV ONE (11:40)
[2023-07-30] MEDS ORDERED: diphenhydrAMINE 50 MG/ML VIAL IV ONE (11:49)
--- NOTE | 2023-07-30 11:52 | CT Scan Report ---
CT ANGIOGRAM OF THE NECK CLINICAL HISTORY: Episodes of expressive aphasia. Headaches. Stroke like symptoms. COMPARISON STUDY: CT angiogram of the neck dated 11/30/2018. TECHNIQUE: Following the IV administration of 115 of Optiray 350, CT angiogram of the neck was perfor med from the aortic arch to the skull base. Images are reviewed in the axial, sagittal, and coronal p lanes. 3-D MIPS images are created and assessed. IV contrast was administered without complication. A ll measurements were calculated based on NASCET criteria. A dose lowering technique was utilized adh ering to the principles of ALARA. FINDINGS: Thoracic aorta: There is atherosclerotic calcification of the thoracic aorta. Visualized portions of the thoracic aorta are normal in caliber. The aortic arch demonstrates standard 3-vessel anatomy. Right carotid arterial system: The right common carotid artery is widely patent, as are the right int ernal and external carotid arteries. Calcified plaque is noted in the carotid bulb. Left carotid arterial system: The left common carotid artery is widely patent, as are the left fashion intern al and external carotid arteries. Calcified plaque is noted in the carotid bulbs. Vertebral arteries: There is mild stenosis of the origin of the left vertebral artery. The vertebral arteries are otherwise widely patent bilaterally and codominant. Subclavian arteries: Widely patent bilaterally. Intracranial vasculature: The visualized intracranial vessels at the skull base are patent. Jugular veins: Widely patent bilaterally. Brain parenchyma: The visualized brain parenchyma the skull base is within normal limits. Lung apices: Partially visualized upper lobe lung parenchyma appears clear. Soft tissues: The visualized pharyngeal soft tissues are normal in appearance noting angiographic pha se technique. The oropharyngeal airway appears widely patent. The thyroid gland is heterogeneous. The salivary Glands are normal in appearance. No cervical lymphadenopathy is seen. Skeletal structures: The skeletal structures are osteopenic. The visualized calvarium at the skull ba se appears intact. The imaged cervical spine is within normal limits. Sinuses and mastoids: A 12 mm retention cyst is noted in the right maxillary antrum. The remaining vi sualized paranasal sinuses are clear. The mastoid air cells are well pneumatized. IMPRESSION: 1. Mild stenosis of the origin of the left vertebral artery. 2. Otherwise unremarkable CT angiogram of the neck. ACT 112: Negative or not required by law. Electronically signed by: Norberto Martinez M.D. 07/30/2023 11:51 AM
[2023-07-30] MEDS ORDERED: PROCHLORPERAZINE 10 MG in SYRINGE 8 ML IV ONE (12:15)
--- NOTE | 2023-07-30 16:07 | CT Scan Report ---
CT angio head wo/w CLINICAL HISTORY: stroke like symptoms TECHNIQUE: Contiguous axial CT images of the head were acquired from the base of the skull to the faisal janie without intravenous contrast administration. CT angiography of the head and neck was performed f ollowing intravenous administration of iodinated contrast. Coronal and sagittal MIPS were obtained fr om the axial data set and were submitted for review. Automated dose lowering techniques and/or adjus tment according to patient size were utilized for this examination. All measurements were calculated based on NASCET criteria. CT DOSE: 1055.16 mGy.cm Comparison: Comparison is made to CT head 07/27/2023 FINDINGS: CT head: There is no acute intracranial hemorrhage or evidence of acute territorial infarction. No sh ift of the midline structures, mass effect, or extra-axial abnormalities are shown. CTA Head: The anterior and posterior cerebral circulations are patent. No hemodynamically significan t stenosis, aneurysm, dissection, or arteriovenous malformation is shown. IMPRESSION: 1. No acute intracranial hemorrhage, evidence of acute territorial infarction, or other acute intrac ranial disease process. 2. No occlusion, hemodynamically significant stenosis, aneurysm, dissection, or arteriovenous malfor mation in the major intracranial arteries. Assessment of stenosis of the internal carotid arteries is based on NASCET criteria. ACT 112: Negative or not required by law. Electronically signed by: Isra Wise M.D. 07/30/2023 4:06 PM
[2023-07-30] MEDS ORDERED: VERAPAMIL HCL 40 MG TAB PO ONE (16:25)
[2023-07-30] MEDS: DIGOXIN 0.125 MG TAB PO SCH (16:50)
[2023-08-01] MEDS ORDERED: DIGOXIN 0.125 MG TAB PO SCH (16:00)
== END 2023-07-30 18:48 | disposition home or self-care (01) | DRG 102 ==
LOC: ED 12:11 → EDINP 12:11 → SUATTDRO 13:58 → 2N 17:17

== ENCOUNTER 2024-03-13 11:33 | Observation (INO) ==
[2024-03-13 12:14] LABS: Basophils # (auto) 0.02 K/uL (0.00-0.20); Basophils % (auto) 0.3 %; Eosinophils # (auto) 0.05 K/uL (0.00-0.50); Eosinophils % (auto) 0.8 %; Hematocrit (blood only) 41.4 % (37.0-47.0); Immature Granulocytes # (auto) 0.04 K/uL (0.01-0.20); Immature Granulocytes % (auto) 0.6 %; Lymphocytes # (auto) 0.66 K/uL (1.20-3.40); Lymphocytes % (auto) 10.5 %; Mean Corpuscular Hemoglobin 34.1 pg (25.0-34.0); Mean Corpuscular Hgb Conc 33.8 g/dL (32.0-36.0); Mean Corpuscular Volume 100.7 fL (80.0-100.0); Mean Platelet Volume 9.1 fL (9.4-12.4); Monocytes # (auto) 0.77 K/uL (0.11-0.59); Monocytes % (auto) 12.3 %; Neutrophils # (auto) 4.72 K/uL (1.40-6.50); Neutrophils % (auto) 75.5 %; Platelet Count 195 K/uL (130-400); RDW Coefficient of Variation 13.9 % (11.5-14.5); RDW Standard Deviation 51.3 fL (36.4-46.3); Red Blood Count 4.11 M/uL (4.20-5.40); White Blood Count 6.26 K/ul (4.8-10.8)
--- NOTE | 2024-03-13 12:38 | Emergency Department Note ---
Impression & Plan Abdominal pain, Nausea ED Provider Note Provider: Tam Bautista MD DATE OF SERVICE: 03/13/2024 CHIEF COMPLAINT: Abdominal pain, nausea HISTORY OF PRESENT ILLNESS: Patient is a 73-year-old female extensive past medical history including A-fib on Eliquis, heart failure, CKD, non-Hodgkin's lymphoma, and HOFFMAN presenting here today with developing mid abdominal pain maybe little left lower quadrant yesterday. Nausea but no vomiting. Decreased intake. No diarrhea. No falls or trauma. History of multiple abdominal surgery in the past including gastric bypass. On treatment for non-Hodgkin's lymphoma and last. She was in remission's and things were okay. Has been following with nephrology due to chronic kidney disease. Denies to me any significant chest pain or shortness of breath. Oxycodone ineffective for pain control at home. Was initially at the doctor's office for evaluation today but pain got worse and she got diaphoretic/sweaty and thus came here for evaluation via ambulance. PAST MEDICAL HISTORY: As noted above MEDICATIONS: Reviewed home medications includes Eliquis and digoxin SOCIAL HISTORY: PHYSICAL EXAM: GENERAL: alert and oriented in no acute distress on stretcher Head: normocephalic and atraumatic EYES: No injection, discharge or icterus. NECK: Trachea midline. ENT: Mucous membranes pink and moist. LUNGS: Airway patent. No retractions. Breath sounds clear HEART: Regular rate and rhythm. No chest wall tenderness ABDOMEN: Soft mid abdominal tenderness to left lower quadrant. No guarding. SKIN: Acyanotic, warm, dry, without rashes EXTREMITIES: Without swelling, tenderness or deformity NEUROLOGICAL: No focal deficits. No aphasia. No facial droop or slurred speech. EK bpm atrial fibrillation. No acute ST segment elevation or depression with nonspecific T wave inversions. QTc 428. CONTINUOUS CARDIAC MONITORING: was ordered and showed a heart rate of 60s to 90s bpm in atrial fibrillation Patient's laboratory studies and imaging reviewed. Differential includes Appendicitis, diverticulitis, UTI, obstruction, mesenteric ischemia, aortic pathology, inflammatory bowel disease, renal colic, PUD, pancreatitis, biliary pathology, hernia, volvulus, constipation, as well as other pathologies. IMPRESSION/MEDICAL DECISION MAKING: Some mid abdominal left lower quadrant pain. Extensive history of abdominal surgeries. Unfortunate history of fairly severe CKD. Will obtain CT of the abdomen pelvis. Chest x-ray obtained but denies significant shortness of breath to me. EKG and troponin completed as well as basic labs. No significant leukocytosis or anemia on lab work. Normal platelet count. Given some IV fluid, Zofran, and morphine for pain control. Blood work here without significant leukocytosis or anemia. No findings of worsened renal function baseline CKD. No severe electrolyte abnormality. No troponin elevation. No evidence of acute hepatitis or pancreatitis although AST is very slightly elevated at 78 and alkaline phosphatase of 200. Therapeutic digoxin level. Later given some fentanyl for additional pain control. CT of the abdomen pelvis without contrast given her significant renal dysfunction was completed and shows by report no evidence of bowel thickening or obstruction. There is report of question of some residual lymphoma but no progressive lymphadenopathy reported by radiologist. Stable chronic urethral thickening noted. No free air reported. No report of inflammation of the appendix. Discussed findings with patient and . Nausea is improved. Still with significant abdominal pain. Has been through with an 8 mg of morphine as well as some fentanyl here. Given the patient's age and comorbidities with significant pain without clear explanation there are some concerns about sending her home at this time. Did discuss with the patient and her findings and discussed with her possible further observation given her severe abdominal discomfort without etiology. Patient wished for this. Discussed with hospitalist team. Given her history of gastric bypass low no significant stigmata report of any bleeding or bloody stools or elevated BUN of significance, will give an dose of IV Protonix. DIAGNOSIS: Abdominal pain, nausea DISPOSITION: Hospitalist will evaluate Patient was agreeable with this plan. 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 B12 deficiency Iron deficiency PFO (patent foramen ovale) Abdominal discomfort, epigastric Cirrhosis Lesion of ureter Morbid obesity SOB (shortness of breath) on exertion Kidney stones History of skin cancer Cardiac murmur TIA (transient ischemic attack) Hyperlipemia Fatigue Permanent atrial fibrillation Mesenteric mass Depression Chronic pain of inguinal region Anticoagulant long-term use Dissection of vertebral artery GERD (gastroesophageal reflux disease) Hypertension Surgical History Port-A-Cath in place (12/10/22) History of bowel resection Hx of lymph node biopsy History of bone marrow biopsy S/P ureteral stent placement History of cystoscopy History of tubal ligation History of umbilical hernia repair History of colostomy reversal History of esophagogastroduodenoscopy (EGD) History of colonoscopy (05/2022) History of cardiac radiofrequency ablation History of cardioversion History of gastric bypass Hx of laparoscopy Hx of abdominal surgery History of colostomy H/O: hysterectomy Hx of removal of cyst (11/14/23) Hx of cholecystectomy Family History Grandmother Diabetes Hypertension Mother Heart disease Hypertension Grandfather Stomach cancer Hypertension Father Pancreatic cancer Hypertension Other No family history of adverse response to anesthesia Denies family history of Ovarian cancer Breast cancer Colorectal cancer Social History (Updated 03/13/24 @ 10:35 by Consuelo Dawkins LPN) Smoking Status: Unknown if ever smoked Tobacco Type: Cigarettes Age Started Using Tobacco: 20; Age Quit Using Tobacco: 42; packs per day: 1; Second Hand Exposure: No; Do You Dip or Chew Tobacco: No; Hx Alcohol Use: No Hx Substance Use: No Preferred Language: Sudanese Communication Ability: Effective Visual Impairment: No Limitations Hearing Ability: Normal Exceptional Needs Teacher Required: No Beliefs That Will Affect Care: None marital status: Current Living Situation: Spouse Current Living Situation Comment: home with 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 status: retired 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) How many Children do You have: 1 other: [employer] Feels Safe at Home: Yes Diet: regular caffeine: No Dental Care, Regularly: Yes Physical Activity Frequency: Does not Exercise Seatbelt Use: always Sunscreen Use: No Assistive Devices: Glasses Allergies Allergies Allergy/AdvReac Type Severity Reaction Status Date / Time No Known Allergies Allergy Verified 03/13/24 10:22 Home Meds Home Medications Medication Instructions Recorded Confirmed folic acid 1 mg tablet 1 mg PO QAM 07/31/23 03/13/24 magnesium 1 dose PO HS 09/10/23 03/13/24 bumetanide 2 mg tablet 2 mg PO QAM 01/13/24 03/13/24 cholecalciferol (vitamin D3) 25 2,000 unit PO BID 02/12/24 03/13/24 mcg (1,000 unit) capsule (Vitamin D3) ferrous sulfate 325 mg (65 mg 325 mg PO DAILY 02/19/24 03/13/24 iron) tablet (FeroSul) Previous Rx's Medication Instructions Recorded bupropion HCl 150 mg 24 hr tablet, 150 mg PO QAM #90 tabs 01/29/23 extended release apixaban 5 mg tablet (Eliquis) 5 mg PO BID #180 tabs 02/05/23 atorvastatin 40 mg tablet (Lipitor) 40 mg PO QAM #90 tabs 07/19/23 aspirin 81 mg tablet,delayed 81 mg PO QAM #30 tabs 07/30/23 release cyanocobalamin (vitamin B-12) 1,000 mcg IM .COMPLEX PRN B12 08/13/23 1,000 mcg/mL injection solution Deficiency #4 mL metoprolol tartrate 50 mg tablet 50 mg PO BID #180 tabs 12/16/23 pantoprazole 20 mg tablet,delayed 20 mg PO BID #180 tabs 12/16/23 release oxycodone 5 mg tablet 5 mg PO Q6H PRN pain #5 tabs 01/17/24 tamsulosin 0.4 mg capsule (Flomax) 0.4 mg PO DAILY #30 caps 01/17/24 verapamil 120 mg tablet,extended 120 mg PO QAM #90 tabs 02/12/24 release digoxin 125 mcg (0.125 mg) tablet 125 mcg PO .COMPLEX #45 tabs 03/12/24 Results & Data (ED) Vital Signs Vital Signs - 24 hr 03/13/24 11:43 03/13/24 11:43 03/13/24 11:48 Temperature 36.8 C Temperature Source Oral Pulse Rate 64 64 65 Pulse Rate from SpO2 Sensor Respiratory Rate 20 22 20 Blood Pressure 151/100 H 151/100 H Blood Pressure Mean 117 117 Blood Pressure Position Lying Pulse Oximetry 96 96 96 Oxygen Delivery Method Room Air Room Air Sepsis Recent Fever Within 48 Hours No Sepsis New/Unexplained Change in Mental Status No Sepsis Action Taken by Nursing No Action Required 03/13/24 12:00 03/13/24 12:08 03/13/24 12:10 Temperature Temperature Source Pulse Rate 65 75 63 Pulse Rate from SpO2 Sensor 65 Respiratory Rate 18 19 Blood Pressure 147/84 H Blood Pressure Mean 105 Blood Pressure Position Pulse Oximetry 96 96 Oxygen Delivery Method Sepsis Recent Fever Within 48 Hours Sepsis New/Unexplained Change in Mental Status Sepsis Action Taken by Nursing 03/13/24 12:20 03/13/24 14:08 03/13/24 14:30 Temperature Temperature Source Pulse Rate 72 92 H 87 Pulse Rate from SpO2 Sensor 73 Respiratory Rate 15 17 22 Blood Pressure 146/84 H 131/69 Blood Pressure Mean 104 89 Blood Pressure Position Pulse Oximetry 95 97 96 Oxygen Delivery Method Sepsis Recent Fever Within 48 Hours Sepsis New/Unexplained Change in Mental Status Sepsis Action Taken by Nursing 03/13/24 15:00 03/13/24 15:30 Temperature Temperature Source Pulse Rate 80 89 Pulse Rate from SpO2 Sensor 84 Respiratory Rate 23 23 Blood Pressure 136/81 121/76 Blood Pressure Mean 99 91 Blood Pressure Position Pulse Oximetry 98 96 Oxygen Delivery Method Sepsis Recent Fever Within 48 Hours Sepsis New/Unexplained Change in Mental Status Sepsis Action Taken by Nursing Laboratory Data 03/13/24 11:54 03/13/24 11:54 Lab Results 03/13/24 Range/Units 11:54 WBC 6.26 (4.8-10.8) K/ul RBC 4.11 L (4.20-5.40) M/uL Hgb 14.0 (12.0-16.0) g/dl Hct 41.4 (37.0-47.0) % MCV 100.7 H (80.0-100.0) fL MCH 34.1 H (25.0-34.0) pg MCHC 33.8 (32.0-36.0) g/dL RDW Std Deviation 51.3 H (36.4-46.3) fL RDW Coeff of Rodrigo 13.9 (11.5-14.5) % Plt Count 195 (130-400) K/uL MPV 9.1 L (9.4-12.4) fL Immature Gran % (Auto) 0.6 % Neut % (Auto) 75.5 % Lymph % (Auto) 10.5 % Mckean % (Auto) 12.3 % Eos % (Auto) 0.8 % Baso % (Auto) 0.3 % Neut # (Auto) 4.72 (1.40-6.50) K/uL Lymph # (Auto) 0.66 L (1.20-3.40) K/uL Mckean # (Auto) 0.77 H (0.11-0.59) K/uL Eos # (Auto) 0.05 (0.00-0.50) K/uL Baso # (Auto) 0.02 (0.00-0.20) K/uL Immature Gran # (Auto) 0.04 (0.01-0.20) K/uL PT 11.7 (9.0-12.0) Seconds INR 1.1 (0.9-1.1) APTT 30 (21-31) Seconds PTT Ratio 1.1 Sodium 141 (136-145) mmol/L Potassium 4.4 (3.5-5.1) mmol/L Chloride 107 (98-107) mmol/L Carbon Dioxide 28 (21-32) mmol/L Anion Gap 6 (3-11) BUN 34 H (6-23) mg/dl Creatinine 1.37 H (0.6-1.2) mg/dl Est Cr Clr Drug Dosing 40.5 ml/min Est GFR ( Amer) 44.9 ml/min Est GFR (Non-Af Amer) 38.7 ml/min BUN/Creatinine Ratio 24.8 H (10-20) Glucose 89 (70-99(Fasting)) mg/dl Calcium 9.1 (8.6-10.3) mg/dl Total Bilirubin 0.9 (0.2-1.0) mg/dl AST 78 H (13-39) U/L ALT 44 (7-52) U/L Alkaline Phosphatase 200 H (34-104) U/L Troponin I High Sens 6.9 (0-14) pg/ml Total Protein 6.3 (6.0-8.3) gm/dl Albumin 3.8 (3.4-5.0) gm/dl Globulin 2.5 (2.5-4.0) gm/dl Albumin/Globulin Ratio 1.5 (0.9-2) Lipase 40 (11-82) U/L Digoxin 0.7 L (0.8-2.0) ng/ml Administered Medications Discontinued Medications Fentanyl Citrate (Fentanyl Citrate Pf 100 Mcg/2 Ml Vial) 50 mcg IV NOW STA Stop: 03/13/24 13:21 Last Admin: 03/13/24 13:29 Dose: 50 mcg Documented By: CPB Sodium Chloride (Nss) 500 mls @ 999 mls/hr IV .Q31M ONE Stop: 03/13/24 13:06 Last Infusion: 03/13/24 13:15 Dose: Infused Documented By: Admin: 03/13/24 12:43 Dose: 999 mls/hr Documented By: CPB Morphine Sulfate (Morphine Sulfate 4 Mg/Ml 1 Ml Carp\Vial) 4 mg IV NOW STA Stop: 03/13/24 12:37 Last Admin: 03/13/24 12:43 Dose: 4 mg Documented By: CPB Morphine Sulfate (Morphine Sulfate 4 Mg/Ml 1 Ml Carp\Vial) 4 mg IV NOW STA Stop: 03/13/24 14:47 Last Admin: 03/13/24 14:53 Dose: 4 mg Documented By: CPB Ondansetron HCl (Ondansetron Inj 2 Mg/Ml 2 Ml Vial) 4 mg IV NOW STA Stop: 03/13/24 12:37 Last Admin: 03/13/24 12:43 Dose: 4 mg Documented By: CPB Imaging Data Radiologist's Impression: Chest X-Ray 03/13/24 11:47 XR chest 1V portable HISTORY: 73 years-old Female Chest pain, nonspecific acute chest pain COMPARISON: Chest CT 12/19/2023 TECHNIQUE: AP view of the chest FINDINGS: Cardiac silhouette is enlarged. Right subclavian [id number] catheter distal tip noted within the expected location of the mid SVC. No pneumothorax, large pleural effusion, airspace consolidation or overt pulmonary edema. IMPRESSION: Cardiomegaly without acute process. ACT 112: Negative or not required by law. The above report was generated using voice recognition software. It may contain grammatical, syntax or spelling errors. Electronically signed by: Jeffery Gresham M.D. 03/13/2024 12:56 PM Abdomen/Pelvis CT 03/13/24 12:[address] WITHOUT CONTRAST CT DOSE: 1245.44 mGy.cm HISTORY: mid abd pain, nausea, hx gastric bypass TECHNIQUE: Multiaxial CT images of the abdomen and pelvis were performed without contrast. A dose lowering technique was utilized adhering to the principles of ALARA. COMPARISON STUDY: Abdomen and pelvis CT 12/19/2023. FINDINGS: The heart is mildly enlarged. A trace right pleural effusion has improved. No pneumoperitoneum. No pneumatosis. No suspicious lytic or blastic osseous lesions. Chronic remodeling at the left L3 and L4 vertebral bodies remains unchanged. This may represent dural ectasia. Small linear scarlike density remaining within the left groin adjacent to multiple surgical clips again noted. No inguinal lymphadenopathy or fluid collections identified. Small amount of ill-defined soft tissue surrounding the right renal vessels and central mesentery remains unchanged. This may represent treated/residual lymphoma. No new or progressive lymphadenopathy within the abdomen or pelvis. Advanced calcified plaque within the normal caliber abdominal aorta. Cholecystectomy. No hepatic or splenic masses. The spleen is normal in size. The pancreas and adrenal glands unremarkable. Left-sided nephrolithiasis again noted. Bilateral renal hypodense lesions remain unchanged. These favor cysts. No ureteral stones. Mild fullness within the right renal collecting system again noted. Mild urothelial thickening within the bilateral renal collecting systems and ureters, unchanged. This is likely chronic.. The main portal vein is patent. Prior Ngoc-en-Y gastric bypass. Normal bladder. Prior hysterectomy. Colonic diverticulosis. No evidence for acute diverticulitis. No bowel wall thickening or obstruction. Normal appendix. IMPRESSION: 1. No bowel wall thickening or obstruction. 2. Small amount of ill-defined soft tissue surrounding the right renal vessels and within the central mesentery again noted. This may represent treated/residual lymphoma. 3. No new/progressive lymphadenopathy. 4. Mild fullness within the right renal collecting system, unchanged. There is stable chronic urothelial thickening within the bilateral renal collecting systems and ureters.. 5. Left-sided nephrolithiasis. No left-sided hydronephrosis. 6. Trace right pleural effusion has improved. 7. Additional findings as described above. ACT 112: Negative or not required by law. Electronically signed by: Sky Gardner M.D. 03/13/2024 2:49 PM Discharge Plan Visit Data Chief Complaint: Abdominal Pain Stated Complaint: AB PAIN ED Provider: Tam Bautista Discharge Problem: Abdominal pain, Nausea Patient Disposition: Being Evaluated by Hospitalist Forms Stand Alone Forms: My [facility] Prescriptions Prescriptions: No Action bupropion HCl 150 mg tablet extended release 24 hr 150 mg PO QAM Qty: 90 3RF Eliquis 5 mg tablet 5 mg PO BID Qty: 180 3RF Hold Instructions: Resume on 01/20/24. atorvastatin [Lipitor] 40 mg tablet 40 mg PO QAM Qty: 90 3RF folic acid 1 mg tablet 1 mg PO QAM Patient Comments: CONFIRMED W/ 07/31 cholecalciferol (vitamin D3) [Vitamin D3] 25 mcg (1,000 unit) capsule 2,000 unit PO BID Hold Instructions: weekly dose digoxin 125 mcg (0.125 mg) tablet 125 mcg PO .COMPLEX Qty: 45 3RF Rx Instructions: 125 mcg orally every other day; cyanocobalamin (vitamin B-12) 1,000 mcg/mL solution 1,000 mcg IM .COMPLEX PRN (Reason: B12 Deficiency ) Qty: 4 1RF Rx Instructions: 1,000 mcg intramuscularly every week x 4 weeks then once monthly thereafter; PRN; verapamil 120 mg tablet extended release 120 mg PO QAM Qty: 90 3RF pantoprazole 20 mg tablet,delayed release (DR/EC) 20 mg PO BID Qty: 180 3RF metoprolol tartrate 50 mg tablet 50 mg PO BID Qty: 180 3RF magnesium 1 dose PO HS ferrous sulfate [FeroSul] 325 mg (65 mg iron) tablet 325 mg PO DAILY aspirin 81 mg Tablet,Delayed Release (Dr/Ec) 81 mg PO QAM Qty: 30 0RF Hold Instructions: Resume on 01/20/24. bumetanide 2 mg tablet 2 mg PO QAM Rx Instructions: May increase to BID dosing as needed for weight gain, swelling, SOB. tamsulosin [Flomax] 0.4 mg capsule 0.4 mg PO DAILY Qty: 30 0RF oxycodone 5 mg tablet 5 mg PO Q6H PRN (Reason: pain) Qty: 5 0RF Referrals Referrals: Christopher Guevara MD [Primary Care Provider] -
[2024-03-13 12:41] LABS: Albumin Globulin Ratio 1.5 (0.9-2); Albumin Level 3.8 gm/dl (3.4-5.0); BUN Creatinine Ratio 24.8 (10-20); Bilirubin,Total 0.9 mg/dl (0.2-1.0); Calcium 9.1 mg/dl (8.6-10.3); Creatinine Clr Calc Pharmacy 40.5 ml/min; Est GFR (African American) 44.9 ml/min; Est GFR (Non-African American) 38.7 ml/min; Globulin 2.5 gm/dl (2.5-4.0); Potassium 4.4 mmol/L (3.5-5.1); Total Protein 6.3 gm/dl (6.0-8.3)
[2024-03-13] MEDS: ONDANSETRON INJ 2 MG/ML 2 ML VIAL IV STA (12:43)
[2024-03-13] MEDS: SODIUM CHLORIDE 0.9% 500 ML IV ONE (12:43)
[2024-03-13] MEDS: MoRPHine SULFATE 4 MG/ML 1 ML CARP\\VIAL IV STA ×2 (12:43→14:53)
[2024-03-13 12:45] LABS: Troponin I High Sensitivity 6.9 pg/ml (0-14)
[2024-03-13 12:51] LABS: INR 1.1 (0.9-1.1); Partial Thromboplastin Ratio 1.1; Partial Thromboplastin Time 30 Seconds (21-31); Prothrombin Time 11.7 Seconds (9.0-12.0)
--- NOTE | 2024-03-13 12:57 | XRay Report ---
XR chest 1V portable HISTORY: 73 years-old Female Chest pain, nonspecific acute chest pain COMPARISON: Chest CT 12/19/2023 TECHNIQUE: AP view of the chest FINDINGS: Cardiac silhouette is enlarged. Right subclavian Vrflxm-u-[id number] catheter distal tip noted within the e xpected location of the mid SVC. No pneumothorax, large pleural effusion, airspace consolidation or o vert pulmonary edema. IMPRESSION: Cardiomegaly without acute process. ACT 112: Negative or not required by law. The above report was generated using voice recognition software. It may contain grammatical, syntax o r spelling errors. Electronically signed by: Jeffery Gresham M.D. 03/13/2024 12:56 PM
[2024-03-13] MEDS: fentaNYL citrate PF 100 MCG/2 ML VIAL IV STA (13:29)
--- NOTE | 2024-03-13 14:51 | CT Scan Report ---
ABDOMEN AND PELVIS CT WITHOUT CONTRAST CT DOSE: 1245.44 mGy.cm HISTORY: mid abd pain, nausea, hx gastric bypass TECHNIQUE: Multiaxial CT images of the abdomen and pelvis were performed without contrast. A dose lo wering technique was utilized adhering to the principles of ALARA. COMPARISON STUDY: Abdomen and pelvis CT 12/19/2023. FINDINGS: The heart is mildly enlarged. A trace right pleural effusion has improved. No pneumoperiton eum. No pneumatosis. No suspicious lytic or blastic osseous lesions. Chronic remodeling at the left L 3 and L4 vertebral bodies remains unchanged. This may represent dural ectasia. Small linear scarlike density remaining within the left groin adjacent to multiple surgical clips again noted. No inguinal lymphadenopathy or fluid collections identified. Small amount of ill-defined soft tissue surrounding the right renal vessels and central mesentery remains unchanged. This may represent treated/residual lymphoma. No new or progressive lymphadenopathy within the abdomen or pelvis. Advanced calcified plaq ue within the normal caliber abdominal aorta. Cholecystectomy. No hepatic or splenic masses. The sple en is normal in size. The pancreas and adrenal glands unremarkable. Left-sided nephrolithiasis again noted. Bilateral renal hypodense lesions remain unchanged. These favor cysts. No ureteral stones. Mil d fullness within the right renal collecting system again noted. Mild urothelial thickening within th e bilateral renal collecting systems and ureters, unchanged. This is likely chronic.. The main portal vein is patent. Prior Ngoc-en-Y gastric bypass. Normal bladder. Prior hysterectomy. Colonic divertic ulosis. No evidence for acute diverticulitis. No bowel wall thickening or obstruction. Normal appendi x. IMPRESSION: 1. No bowel wall thickening or obstruction. 2. Small amount of ill-defined soft tissue surrounding the right renal vessels and within the central mesentery again noted. This may represent treated/residual lymphoma. 3. No new/progressive lymphadenopathy. 4. Mild fullness within the right renal collecting system, unchanged. There is stable chronic urothel ial thickening within the bilateral renal collecting systems and ureters.. 5. Left-sided nephrolithiasis. No left-sided hydronephrosis. 6. Trace right pleural effusion has improved. 7. Additional findings as described above. ACT 112: Negative or not required by law. Electronically signed by: Sky Gardner M.D. 03/13/2024 2:49 PM
--- NOTE | 2024-03-13 15:51 | History & Physical Report ---
Date of Service March 13, 2024 Assessment & Plan (1) Abdominal pain: Plan: Abdominal pain/chest pain Epigastric pain radiating into the chest and neck Does have some concerning features that she has recently been sweaty and somewhat short of breath when these episodes occur, they last 15 minutes to around 2 hours and have been lasting longer recently. Her current pain has been going on for 4 hours; however despite this has a negative troponin and a normal EKG With history of GERD, and lymphoma. No leukocytosis is seen, renal function is at baseline, BUN is without acute elevation from her baseline, no evidence of GIB Digoxin level is slightly low at 0.7, she is not supratherapeutic on admission CTA/P: No acute findings. No signs of bowel obstruction. Stable chronic findings With history of GERD and Ngoc-en-Y bypass, last endoscopy was without evidence of abnormal mucosa/ulcers No evidence of acute obstructive or infectious pathology on admission. DDx includes cardiac, although suspect this is less likely given several hours of pain with normal biomarkers and no EKG changes although some shortness of breath and sweating with it is concerning. Will continue to follow on telemetry and repeat EKG for worsened pain episodes. trop trended x1. DDx includes esophageal spasm which she has had in the past, gerd. Will trial PPI for hx gerd, additional for ?spasm isosorbide dinitrate as she is already on a calcium channel evelyn and see if this improves her pain. If recurrent worsening chest pain/shortness of breath/diaphoresis repeat EKG and troponin. Patient is anticoagulated with apixaban will continue this for now however if concern for cardiac etiology rises hold this and transition to heparin (2) CKD (chronic kidney disease), stage III: Plan: CKD 3 Baseline creatinine appears around 1.21.3, 1.37 on admission. She appears slightly volume contracted, powers sno pulmonary edema, and has had poor p.o. intake in the last 2 days. Will add gentle maintenance fluids and hold her diuretic Known secondary hyperparathyroidism with stable PTH (3) B-cell lymphoma: Plan: History of B-cell lymphoma, metastatic carcinoid S/p R-CHOP 2022 Follows with [facility], no evidence of worsening/recurrence/expanding mass on imaging (4) Cirrhosis: Plan: Nonalcoholic steatohepatitis with cirrhosis Follows with Dr. Foster in [place] [facility] Spironolactone discontinued due to hyperkalemia EGD 12/06/2023 with normal mucosa, normal jejunum (5) Chronic diastolic congestive heart failure: Plan: Chronic diastolic CHF Last EF 07/2020 360 to 65% Patient has been on Bumex since 12/2023 (6) A-fib: Plan: Permanent A-fib Continue Eliquis, verapamil, metoprolol, digoxin Plan Chronic stable issues Complex migraine: Continue verapamil Depression/anxiety: Continue home medicines Osteopenia: Continue vitamin D Hyperlipidemia: Continue statin - History of TIA with 70% left vertebral artery stenosis, 60% right vertebral artery stenosis: Aspirin, Anticoagulation continued. No residual deficits History of Present Illness Primary Care Provider: Christopher Guevara MD Tea is a 73-year-old female with past medical history of Ngoc-en-Y gastric bypass, A-fib/a flutter on Eliquis and digoxin, heart failure with preserved ejection fraction, B-cell lymphoma s/p Rituxan treatment last 2022, possible carcinoid versus lymphoma previously on octreotide, nonalcoholic steatohepatitis no longer on spironolactone due to hyperkalemia who presents with abdominal pain Suzanna reports for several years she has had intermittent pain in her stomach with get 'very sore and are increadibly painful'. Come and go on their own. Has not noticed any exacerbating factors, seem to happen both at rest and with activity with no pattern. She thinks food can bring out the discomfort and make it worse. Episodes had been lasting from a few minutes ot a few hours, but episodes seem to be lasting longer lately. Episode yesterday lasted about 2 hours. No known remitting factors. Hydrocodone at home and morphine in the ER have helped, sometimes the hydrocodone gets rid of the pain completely and sometimes is only helps a little. At time of admitting assessment pain has improved to a 5/10.More recently pain has started going into her LEFT arm and shoulder and have been associated with shortness of breath and soaking sweats. She has a history of afib and CHF, no history of heart attacks or stents. Did have a TIA in the past with no residual symptoms. Is on eliquis and baby asprin daily. Took all her medications today. Also has a hx of complex migraine with presented with speech deficits and which improved with verapamil. Has a R port, no longer on any type of chemo. Exercises 3 times per week with no pain. Pain today has been present for 4 hours. Trop is normal. Medical History: Reviewed Medications: Reviewed Surgical History: Reviewed Family history: Reviewed Allergies: Reviewed Social History: No tobacco use, no etoh use Code Status: Full Code Allergies Allergy/AdvReac Type Severity Reaction Status Date / Time No Known Allergies Allergy Verified 03/13/24 10:22 Home Medications Medication Instructions Recorded Confirmed Type bupropion HCl 150 mg 24 hr tablet, 150 mg PO QAM #90 tabs 01/29/23 03/13/24 Rx extended release apixaban 5 mg tablet (Eliquis) 5 mg PO BID #180 tabs 02/05/23 03/13/24 Rx atorvastatin 40 mg tablet (Lipitor) 40 mg PO QAM #90 tabs 07/19/23 03/13/24 Rx aspirin 81 mg tablet,delayed 81 mg PO QAM #30 tabs 07/30/23 03/13/24 Rx release folic acid 1 mg tablet 1 mg PO QAM 07/31/23 03/13/24 History cyanocobalamin (vitamin B-12) 1,000 mcg IM .COMPLEX PRN B12 08/13/23 03/13/24 Rx 1,000 mcg/mL injection solution Deficiency #4 mL magnesium 1 dose PO HS 09/10/23 03/13/24 History metoprolol tartrate 50 mg tablet 50 mg PO BID #180 tabs 12/16/23 03/13/24 Rx pantoprazole 20 mg tablet,delayed 20 mg PO BID #180 tabs 12/16/23 03/13/24 Rx release bumetanide 2 mg tablet 2 mg PO QAM 01/13/24 03/13/24 History oxycodone 5 mg tablet 5 mg PO Q6H PRN pain #5 tabs 01/17/24 03/13/24 Rx tamsulosin 0.4 mg capsule (Flomax) 0.4 mg PO DAILY #30 caps 01/17/24 03/13/24 Rx cholecalciferol (vitamin D3) 25 2,000 unit PO BID 02/12/24 03/13/24 History mcg (1,000 unit) capsule (Vitamin D3) verapamil 120 mg tablet,extended 120 mg PO QAM #90 tabs 02/12/24 03/13/24 Rx release ferrous sulfate 325 mg (65 mg 325 mg PO DAILY 02/19/24 03/13/24 History iron) tablet (FeroSul) digoxin 125 mcg (0.125 mg) tablet 125 mcg PO .COMPLEX #45 tabs 03/12/24 03/13/24 Rx Past Med/Surg History Medical History (Updated 03/13/24 @ 16:14 by Jesse Fu MD) Chronic diastolic congestive heart failure Non-Hodgkin lymphoma in remission Neutropenia (HFpEF) heart failure with preserved ejection fraction f/u dr. brewer, [facility] [place] Pancytopenia Current use of retirement anticoagulation Hx of pancreatitis no episodes since Jul 2023 History of anemia IRON INFUSIONS IN PAST History of COVID-19 07/2022 > RESOLVED Sleep apnea NO DEVICE B-cell lymphoma dx ~03/2022, no longer in chemo Lymphoma hx Prediabetes pt unaware Carcinoid tumor PET SCAN AT [facility]> "PLANS TO TREAT FOR B CELL LYMPHOMA SHOULD TREAT CARCINOID TUMOR" > resolved per pt CKD (chronic kidney disease), stage III follows with [place] [facility] per pt Liver 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 B12 deficiency Iron deficiency PFO (patent foramen ovale) Suspected per records Abdominal discomfort, epigastric just on occasion per pt Cirrhosis Lesion of ureter biopsy 12/29/2020 Morbid obesity SOB (shortness of breath) on exertion Kidney stones hx and at present History of skin cancer removed Cardiac murmur Mild MR and TR per 10/2022 ECHO TIA (transient ischemic attack) 2018- [place] - no residual -NO ISSUES SINCE Hyperlipemia Fatigue chronic Permanent atrial fibrillation follows with Dr. Brewer > med controlled Mesenteric mass recent PET scan --- RECENT B CELL LYMPHOMA CONFIRMED, growth has recently stopped due to chemo Depression Chronic pain of inguinal region Anticoagulant long-term use Dissection of vertebral artery pt unsure/unaware GERD (gastroesophageal reflux disease) Hypertension Surgical History Port-A-Cath in place (12/10/22) Access port placement and use of fluoroscopy. Dr. Leger History of bowel resection WITH COLOSTOMY R/T SBO > colostomy reversed Hx of lymph node biopsy groin area History of bone marrow biopsy S/P ureteral stent placement History of cystoscopy History of tubal ligation History of umbilical hernia repair History of colostomy reversal History of esophagogastroduodenoscopy (EGD) History of colonoscopy (05/2022) History of cardiac radiofrequency ablation D/T AFIB - PT REPORTS HAD 1 BUT MAYBE 2 - NOT SURE DATES ([place]) History of cardioversion multiple History of gastric bypass Hx of laparoscopy Hx of abdominal surgery FOR REMOVAL OF CYST - PT NOT SURE TYPE History of colostomy r/t bowel blockage H/O: hysterectomy Hx of removal of cyst (11/14/23) FINAL DIAGNOSIS In office procedure Dr. Hernandez Skin, left flank mass, excision: - Epidermal inclusion cyst Hx of cholecystectomy Family History Grandmother Diabetes Hypertension Mother Heart disease Hypertension Grandfather Stomach cancer Hypertension Father Pancreatic cancer Hypertension Other No family history of adverse response to anesthesia Denies family history of Ovarian cancer Breast cancer Colorectal cancer Social History (Updated 03/13/24 @ 10:35 by Consuelo Dawkins LPN) Smoking Status: Unknown if ever smoked Tobacco Type: Cigarettes Age Started Using Tobacco: 20; Age Quit Using Tobacco: 42; packs per day: 1; Second Hand Exposure: No; Do You Dip or Chew Tobacco: No; Hx Alcohol Use: No Hx Substance Use: No Preferred Language: Kazakh Communication Ability: Effective Visual Impairment: No Limitations Hearing Ability: Normal Car Deliverer Required: No Beliefs That Will Affect Care: None marital status: Current Living Situation: Spouse Current Living Situation Comment: home with 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 status: retired 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 NAD. Cooperative. HEENT: Atraumatic, normocephalic. R port present, C/D/I and without erythema or tenderness Pulm: CTAB A&P. -wheezes, -rales, -rhonchi. Symmetrical chest rise. No increased work of breathing. No respiratory distress. Cardiac: irir, -mrg. Radial pulses intact and symmetrical. Abdominal: Nontender, nondistended, soft. BS present. Results & Data Results & Data Vital Signs (Past 12 Hours) Vital Signs Temp Pulse Resp BP Pulse Ox O2 Del Method 03/13/24 14:08 92 H 17 146/84 H 97 04/12/24 12:20 72 15 95 03/13/24 12:10 63 19 96 03/13/24 12:08 75 03/13/24 12:00 65 18 147/84 H 96 03/13/24 11:48 65 20 96 Room Air 03/13/24 11:43 64 22 151/100 H 96 03/13/24 11:43 36.8 C 64 20 151/100 H 96 Room Air PG Care Time/CCT Total # of Minutes Spent Total Time Spent with Patient: Total time spent is greater than 50% in coordination of care (as documented) at patient's floor/unit and/or counseling patient: Coding Level of Care Code 27398 INT INP/OBS CARE 3/75MIN Diagnoses Abdominal pain R10.9 Stage 3a chronic kidney disease N18.31 Chronic kidney disease stage 3 subtype: stage 3a (GFR 45-59) B-cell lymphoma C85.10 Other cirrhosis of liver K74.69 Hepatic cirrhosis type: other cirrhosis Chronic diastolic congestive heart failure I50.32 Permanent atrial fibrillation I48.21 Atrial fibrillation type: permanent (2) CKD (chronic kidney disease), stage III Chronic kidney disease stage 3 subtype: stage 3a (GFR 45-59) Qualified Code(s): N18.31 - Chronic kidney disease, stage 3a (4) Cirrhosis Hepatic cirrhosis type: other cirrhosis Qualified Code(s): K74.69 - Other cirrhosis of liver (6) A-fib Atrial fibrillation type: permanent Qualified Code(s): I48.21 - Permanent atrial fibrillation
[2024-03-13] MEDS: PANTOprazole 40 MG in SYRINGE 0 ML IV ONE (16:23)
[2024-03-13] MEDS: LACTATED RINGER'S 250 ML IV ONE (17:03)
[2024-03-13] MEDS: LACTATED RINGER'S 1,000 ML IV SCH (17:05)
[2024-03-13] MEDS: ISOSORBIDE DINITRATE 5 MG TAB PO SCH (18:10)
[2024-03-13] MEDS ORDERED: ACETAMINOPHEN 325 MG TAB PO PRN (19:02)
[2024-03-13] MEDS ORDERED: CYANOCOBALAMIN 1000 MCG/ML VIAL IM PRN (19:02)
[2024-03-13] MEDS ORDERED: ONDANSETRON INJ 2 MG/ML 2 ML VIAL IV PRN (19:02)
[2024-03-13] MEDS ORDERED: oxyCODONE HCL IR 5 MG TAB (IMMEDIATE RELEASE) PO PRN (19:02)
[2024-03-13] MEDS: APIXABAN 5 MG TABLET PO SCH (20:30)
[2024-03-13] MEDS: METOPROLOL TARTRATE 50 MG TAB PO SCH (20:30)
[2024-03-13] MEDS: DIGOXIN 0.125 MG TAB PO SCH (20:31)
[2024-03-13] MEDS: MAGNESIUM OXIDE 400 MG TAB PO SCH (20:31)
[2024-03-13] MEDS: CHOLECALCIFEROL 25 MCG (1000 UNITS) TAB PO SCH (20:32)
[2024-03-13] MEDS: PANTOprazole 40 MG TAB PO SCH (21:01)
--- NOTE | 2024-03-14 00:15 | Electrocardiogram Report ---
Test Reason : Blood Pressure : / mmHG Vent. Rate : 069 BPM Atrial Rate : 000 BPM P-R Int : 000 ms QRS Dur : 086 ms QT Int : 400 ms P-R-T Axes : 000 -14 -06 degrees QTc Int : 428 ms Atrial fibrillation Inferior infarct (cited on or before 19-DEC-2021) Anterior infarct (cited on or before 22-DEC-2022) Abnormal ECG When compared with ECG of 27-JUL-2023 12:29, Questionable change in initial forces of Anterior leads Confirmed by Leonardo Herr ([id number]) on 03/14/2024 12:15:48 AM Referred By: Confirmed By:Leonardo Herr
[2024-03-14] MEDS ORDERED: Nursing to Pharmacy Communication SCH (02:30)
[2024-03-14] MEDS: FOLIC ACID 1 MG TAB PO SCH (07:40)
[2024-03-14] MEDS: buPROPion XL 150 MG TABCR PO SCH (07:41)
[2024-03-14] MEDS: TAMSULOSIN HCL 0.4 MG CAP PO SCH (07:41)
[2024-03-14] MEDS: VERAPAMIL HCL 120 MG TABCR PO SCH (07:42)
[2024-03-14] MEDS: ASPIRIN 81 MG ECTAB PO SCH (07:43)
[2024-03-14] MEDS: ATORVASTATIN 40 MG TAB PO SCH (07:43)
[2024-03-14 07:53] LABS: Basophils # (auto) 0.02 K/uL (0.00-0.20); Basophils % (auto) 0.4 %; Eosinophils # (auto) 0.05 K/uL (0.00-0.50); Eosinophils % (auto) 0.9 %; Hematocrit (blood only) 38.5 % (37.0-47.0); Hemoglobin 13.1 g/dl (12.0-16.0); Immature Granulocytes # (auto) 0.09 K/uL (0.01-0.20); Immature Granulocytes % (auto) 1.6 %; Lymphocytes # (auto) 0.25 K/uL (1.20-3.40); Lymphocytes % (auto) 4.6 %; Mean Corpuscular Hemoglobin 34.3 pg (25.0-34.0); Mean Corpuscular Volume 100.8 fL (80.0-100.0); Mean Platelet Volume 8.5 fL (9.4-12.4); Monocytes # (auto) 0.39 K/uL (0.11-0.59); Monocytes % (auto) 7.1 %; Neutrophils # (auto) 4.68 K/uL (1.40-6.50); Neutrophils % (auto) 85.4 %; Platelet Count 145 K/uL (130-400); RDW Coefficient of Variation 13.9 % (11.5-14.5); RDW Standard Deviation 51.3 fL (36.4-46.3); Red Blood Count 3.82 M/uL (4.20-5.40); White Blood Count 5.48 K/ul (4.8-10.8)
[2024-03-14 08:06] LABS: BUN Creatinine Ratio 20.8 (10-20); Calcium 8.7 mg/dl (8.6-10.3); Creatinine Clr Calc Pharmacy 46.3 ml/min; Est GFR (African American) 52.7 ml/min; Est GFR (Non-African American) 45.4 ml/min; Potassium 4.3 mmol/L (3.5-5.1)
--- NOTE | 2024-03-14 09:06 | Hospitalist Progress Note ---
Date of Service March 14, 2024 Assessment & Plan (1) Abdominal pain: Plan: - Presented with abdominal pain with unclear etiology. - Concern for cardiac origin, as patient also had pain radiating to chest and neck, shortness of breath, and was diaphoretic. -- Troponin trended and negative. EKG normal. -- On digoxin for A fib. Digoxin level is slightly low at 0.7, she is not supratherapeutic on admission. -- Last echo 07/2020: EF 60-65%. Consider new echo. -- Cardiac etiology is less likely given the several hours of pain with normal biomarkers and no EKG changes. -- Continue to monitor on telemetry. Repeat EKG and troponin if pain worsens. -- Anticoagulated with apixaban, continue for now. If concern for cardiac etiology rises, hold apixaban and transition to heparin. - Concern for GI origin. -- History of Ngoc-en-Y bypass. Last endoscopy 12/2023 was without evidence of abnormal mucosa/ulcers. -- History of GERD, on Protonix at home. History of esophageal spasm, on verapamil at home. Trial of isosorbide dinitrate to see if this improves pain, although continued esophageal spasm on CCB is unlikely. -- No signs of GI bleed. - On admission: -- No leukocytosis, renal function at baseline, BUN without acute elevation from baseline. -- CTA/P: No acute findings. No signs of bowel obstruction. Stable chronic findings. -- No evidence of acute obstructive or infectious pathology on admission. - Continue Zofran, acetaminophen and oxycodone for pain, Protonix, isosorbide dinitrate, and verapamil. (2) A-fib: Plan: Permanent A-fib Continue Eliquis, verapamil, metoprolol, digoxin (3) CKD (chronic kidney disease), stage III: Plan: - Baseline creatinine appears around 1.21.3, 1.37 on admission. She appeared slightly volume contracted on presentation, had no pulmonary edema, and had poor p.o. intake 2 days prior to admission. - Gentle maintenance fluids and hold her diuretic - Known secondary hyperparathyroidism with stable PTH (4) B-cell lymphoma: Plan: History of B-cell lymphoma, metastatic carcinoid S/p R-CHOP 2022 Follows with [facility], no evidence of worsening/recurrence/expanding mass on imaging (5) Cirrhosis: Plan: Nonalcoholic steatohepatitis with cirrhosis Follows with Dr. Foster in [place] hepatology Spironolactone discontinued due to hyperkalemia EGD 12/06/2023 with normal mucosa, normal jejunum (6) Chronic diastolic congestive heart failure: Plan: Chronic heart failure with preserved ejection fraction Last EF 07/2020 60 to 65% Patient has been on Bumex since 12/2023 Plan Chronic stable issues Complex migraine: Continue verapamil Depression/anxiety: Continue home medicines Osteopenia: Continue vitamin D Hyperlipidemia: Continue statin - History of TIA with 70% left vertebral artery stenosis, 60% right vertebral artery stenosis: Aspirin, Anticoagulation continued. No residual deficits. CODE STATUS: Full code Admission and Anticipated Discharge Date Admission Date: March 13, 2024 Physical Exam Physical Exam: ... ... Results & Data Results & Data Vital Signs (Past 12 Hours) Vital Signs Temp Pulse Pulse Resp BP Pulse Ox O2 Del Method 03/14/24 07:58 36.5 C 87 18 117/73 95 Room Air 03/14/24 07:09 89 03/14/24 03:37 36.7 C 91 H 18 123/81 93 Room Air 03/13/24 23:00 36.5 C 83 18 121/82 95 Room Air 03/13/24 22:00 71 Laboratory Results Reviewed CBC Reviewed chemistries PG Care Time/CCT Total # of Minutes Spent Total Time Spent with Patient: Total time spent is greater than 50% in coordination of care (as documented) at patient's floor/unit and/or counseling patient: Coding Diagnoses Abdominal pain R10.9 Permanent atrial fibrillation I48.21 Atrial fibrillation type: permanent Stage 3a chronic kidney disease N18.31 Chronic kidney disease stage 3 subtype: stage 3a (GFR 45-59) B-cell lymphoma C85.10 Other cirrhosis of liver K74.69 Hepatic cirrhosis type: other cirrhosis Chronic diastolic congestive heart failure I50.32 (2) A-fib Atrial fibrillation type: permanent Qualified Code(s): I48.21 - Permanent atrial fibrillation (3) CKD (chronic kidney disease), stage III Chronic kidney disease stage 3 subtype: stage 3a (GFR 45-59) Qualified Code(s): N18.31 - Chronic kidney disease, stage 3a (5) Cirrhosis Hepatic cirrhosis type: other cirrhosis Qualified Code(s): K74.69 - Other cirrhosis of liver
--- NOTE | 2024-03-14 15:36 | Discharge Summary ---
Date of Service March 14, 2024 Admission HPI Per Admitting Provider Tea is a 73-year-old female with past medical history of Ngoc-en-Y gastric bypass, A-fib/a flutter on Eliquis and digoxin, heart failure with preserved ejection fraction, B-cell lymphoma s/p Rituxan treatment last 2022, possible carcinoid versus lymphoma previously on octreotide, nonalcoholic steatohepatitis no longer on spironolactone due to hyperkalemia who presents with abdominal pain Suzanna reports for several years she has had intermittent pain in her stomach with get 'very sore and are increadibly painful'. Come and go on their own. Has not noticed any exacerbating factors, seem to happen both at rest and with activity with no pattern. She thinks food can bring out the discomfort and make it worse. Episodes had been lasting from a few minutes ot a few hours, but episodes seem to be lasting longer lately. Episode yesterday lasted about 2 hours. No known remitting factors. Hydrocodone at home and morphine in the ER have helped, sometimes the hydrocodone gets rid of the pain completely and sometimes is only helps a little. At time of admitting assessment pain has improved to a 5/10.More recently pain has started going into her LEFT arm and shoulder and have been associated with shortness of breath and soaking sweats. She has a history of afib and CHF, no history of heart attacks or stents. Did have a TIA in the past with no residual symptoms. Is on eliquis and baby asprin daily. Took all her medications today. Also has a hx of complex migraine with presented with speech deficits and which improved with verapamil. Has a R port, no longer on any type of chemo. Exercises 3 times per week with no pain. Pain today has been present for 4 hours. Trop is normal. Medical History: Reviewed Medications: Reviewed Surgical History: Reviewed Family history: Reviewed Allergies: Reviewed Social History: No tobacco use, no etoh use Code Status: Full Code Admission Exam Per Admitting Provider General: A&Ox3. NAD. Cooperative. HEENT: Atraumatic, normocephalic. R port present, C/D/I and without erythema or tenderness Pulm: CTAB A&P. -wheezes, -rales, -rhonchi. Symmetrical chest rise. No increased work of breathing. No respiratory distress. Cardiac: irir, -mrg. Radial pulses intact and symmetrical. Abdominal: Nontender, nondistended, soft. BS present. Principal Diagnosis Abdominal pain with unclear etiology, resolved. Discharge Exam General: No acute distress, nondiaphoretic, well-developed, well-nourished. Skin: The skin was without rashes, erythema, edema, or bruising. Cardiac: Regular rate, irregular rhythm, without murmurs gallops or rubs. Pulm: Clear to auscultation bilaterally without wheezes, rales or rhonchi. No retractions or accessory muscle use. Abdominal: Positive bowel sounds x 4. Soft, nontender, without masses or organomegaly. No guarding or rebound tenderness. Neuro: A&O x3. No focal neurological deficits. Discharge Data Allergies Allergy/AdvReac Type Severity Reaction Status Date / Time No Known Allergies Allergy Verified 03/13/24 10:22 Consultations 03/13/24 15:36 ED Decision to Admit Stat Ordered Studies 03/13/24 12:34 CT abd pelvis wo con Stat Hospital Course (1) Abdominal pain: - Presented with abdominal pain with unclear etiology. - Concern for cardiac origin, as patient also had pain radiating to chest and neck, shortness of breath, and was diaphoretic. -- Troponin trended and negative. EKG normal. -- On digoxin for A fib. Digoxin level is slightly low at 0.7, she is not supratherapeutic on admission. -- Last echo 07/2020: EF 60-65%. No indication for updated echo during this hospitalization. -- Cardiac etiology is less likely given the several hours of pain with normal biomarkers and no EKG changes. - Concern for GI origin. -- History of Ngoc-en-Y bypass. Last endoscopy 12/2023 was without evidence of abnormal mucosa/ulcers. -- History of GERD, on Protonix at home. History of esophageal spasm, on verapamil at home. Trial of isosorbide dinitrate to see if this improves pain, although continued esophageal spasm on CCB is unlikely. -- No signs of GI bleed. - On admission: -- No leukocytosis, renal function at baseline, BUN without acute elevation from baseline. -- CTA/P: No acute findings. No signs of bowel obstruction. Stable chronic findings. -- No evidence of acute obstructive or infectious pathology on admission. - Upon discharge: continue home medications as prescribed, including acetaminophen and oxycodone for pain, Protonix, and verapamil. (2) A-fib: - Permanent A-fib. Reviewed heart monitoring and the patient is rate controlled. - Continue Eliquis, verapamil, metoprolol, digoxin (3) CKD (chronic kidney disease), stage III: - Baseline creatinine appears around 1.21.3, 1.37 on admission. She appeared slightly volume contracted on presentation, had no pulmonary edema, and had poor p.o. intake 2 days prior to admission. - Gentle maintenance fluids and hold her diuretic - Known secondary hyperparathyroidism with stable PTH (4) B-cell lymphoma: History of B-cell lymphoma, metastatic carcinoid S/p R-CHOP 2022 Follows with [facility], no evidence of worsening/recurrence/expanding mass on imaging (5) Cirrhosis: Nonalcoholic steatohepatitis with cirrhosis Follows with Dr. Foster in [place] [facility] Spironolactone discontinued due to hyperkalemia EGD 12/06/2023 with normal mucosa, normal jejunum (6) Chronic diastolic congestive heart failure: Chronic heart failure with preserved ejection fraction Last EF 07/2020 60 to 65% Patient has been on Bumex since 12/2023 Plan Chronic stable issues Complex migraine: Continue verapamil Depression/anxiety: Continue home medicines Osteopenia: Continue vitamin D Hyperlipidemia: Continue statin - History of TIA with 70% left vertebral artery stenosis, 60% right vertebral artery stenosis: Aspirin, Anticoagulation continued. No residual deficits. CODE STATUS: Full code Total Time Total Time Spent Total Time Spent (In Minutes): Greater than 30 minutes spent completing this discharge process including direct patient care, medication reconciliation, documentation, review of labs and images, and coordination of care. Discharge Plan Discharge Items Patient Disposition: Home - Self-Care Reason For Visit: ABDOMINAL/CHEST PEST Discharge Diagnosis: Abdominal pain, unknown clear etiology Activity: Resume your previous activity Non-emergency contact: Primary Care Provider Call non-emergency contact if: you have any medication questions and your symptoms worsen Follow-up/Referrals: Christopher Guevara MD [Primary Care Provider] - Diet: Heart Healthy Addtl Attending Provider Instructions: Mrs. Dawkins, Jose Antonio were admitted to the hospital due to abdominal pain. Since receiving pain medication in the emergency department yesterday upon arrival, you have not received any pain medicine since then and your pain has now returned. There was concern the pain you are experiencing was from a cardiac origin, however this was ruled out with a normal EKG and normal troponin levels. It is possible that the abdominal pain you experienced is from a GI origin. However your last endoscopy in December 2023 did not show any abnormal mucosa or ulcers. Given you take Protonix at home, it is unlikely that you have any ulcers currently. Additionally, since you take a calcium channel evelyn at home, it is unlikely that you are experiencing esophageal spasm. All of this to be said, it is unclear why you had this abdominal pain and have had intermittent episodes of similar pain in the past. This can be further worked up with your primary care provider. Upon discharge from the hospital: * Continue your medications as prescribed. * You can follow-up with your primary care provider as needed. Please return to the hospital if you experience any of the following: Return of severe abdominal pain, severe nausea or vomiting, lightheadedness or dizziness, chest pain or pressure, shortness of breath, difficulty breathing, passing out or fainting. It was a pleasure taking care of you while you were in the hospital, Amanda Muñoz PA-C Pending Studies at Discharge: No Stand-Alone Forms: My [facility], Smoking Cessation Medications and DC Order Prescriptions: Continued bupropion HCl 150 mg tablet extended release 24 hr 150 mg PO QAM Qty: 90 3RF Eliquis 5 mg tablet 5 mg PO BID Qty: 180 3RF Hold Instructions: Resume on 01/20/24. atorvastatin [Lipitor] 40 mg tablet 40 mg PO QAM Qty: 90 3RF folic acid 1 mg tablet 1 mg PO QAM Patient Comments: CONFIRMED W/ 07/31 cholecalciferol (vitamin D3) [Vitamin D3] 25 mcg (1,000 unit) capsule 2,000 unit PO BID Hold Instructions: weekly dose digoxin 125 mcg (0.125 mg) tablet 125 mcg PO .COMPLEX Qty: 45 3RF Rx Instructions: 125 mcg orally every other day; cyanocobalamin (vitamin B-12) 1,000 mcg/mL solution 1,000 mcg IM .COMPLEX PRN (Reason: B12 Deficiency ) Qty: 4 1RF Rx Instructions: 1,000 mcg intramuscularly every week x 4 weeks then once monthly thereafter; PRN; verapamil 120 mg tablet extended release 120 mg PO QAM Qty: 90 3RF pantoprazole 20 mg tablet,delayed release (DR/EC) 20 mg PO BID Qty: 180 3RF metoprolol tartrate 50 mg tablet 50 mg PO BID Qty: 180 3RF magnesium 1 dose PO HS ferrous sulfate [FeroSul] 325 mg (65 mg iron) tablet 325 mg PO DAILY aspirin 81 mg Tablet,Delayed Release (Dr/Ec) 81 mg PO QAM Qty: 30 0RF Hold Instructions: Resume on 01/20/24. bumetanide 2 mg tablet 2 mg PO QAM Rx Instructions: May increase to BID dosing as needed for weight gain, swelling, SOB. tamsulosin [Flomax] 0.4 mg capsule 0.4 mg PO DAILY Qty: 30 0RF oxycodone 5 mg tablet 5 mg PO Q6H PRN (Reason: pain) Qty: 5 0RF Discharge Orders: Discharge Order (Routine); Ordered 03/14/24 Ordered By: Amanda Muñoz Admission Data Admit Date/Time: 03/13/24 16:18 Attending Provider: Ray Chavez Admit Provider: Jesse Fu Primary Care Provider: Christopher Guevara Other Providers: Jesse Fu Other Interventions: Discharge Summary Assessment (RN) Last Done: 03/14/24 14:51 Coding Level of Care Code 08403 INP/OBS DISCH >30 MIN Diagnoses Abdominal pain R10.9 Permanent atrial fibrillation I48.21 Atrial fibrillation type: permanent Stage 3a chronic kidney disease N18.31 Chronic kidney disease stage 3 subtype: stage 3a (GFR 45-59) B-cell lymphoma C85.10 Other cirrhosis of liver K74.69 Hepatic cirrhosis type: other cirrhosis Chronic diastolic congestive heart failure I50.32
[2024-03-14] MEDS: HEPARIN 100 UNIT/ML 5ML FLUSH FLUSH PRN (15:51)
== END 2024-03-14 17:22 | disposition home or self-care (01) ==
LOC: ED 11:33 → 2N 11:33 → SUATTDRO 16:18 → 2N 17:57

== ENCOUNTER 2024-07-29 12:01 | Inpatient (IN) ==
[2024-07-29 12:43] LABS: Hematocrit (blood only) 38.2 % (37.0-47.0); Hemoglobin 12.6 g/dl (12.0-16.0); Mean Platelet Volume 9.1 fL (9.4-12.4); Platelet Count 175 K/uL (130-400); RDW Coefficient of Variation 13.8 % (11.5-14.5); RDW Standard Deviation 51.7 fL (36.4-46.3); Red Blood Count 3.71 M/uL (4.20-5.40); White Blood Count 4.58 K/ul (4.8-10.8)
[2024-07-29] MEDS ORDERED: SODIUM CHLORIDE 0.9% 250 ML IV PRN (12:46)
[2024-07-29 12:47] LABS: Partial Thromboplastin Time 26 Seconds (21-31); Prothrombin Time 11.2 Seconds (9.0-12.0)
--- NOTE | 2024-07-29 12:48 | Emergency Department Note ---
Impression & Plan Acute GI bleeding, Atrial fibrillation with RVR, Anemia ED Provider Note NAME: GUSTABO MCKEON AGE: 74 SEX: F : 1950 ARRIVES VIA: Walk-In INFORMANT: Patient ED PROVIDER(S): Darius Zimmerman DO CHIEF COMPLAINT: black stools HPI: Patient is a 74-year-old female with a past medical history of A-fib, TIA, pancytopenia on Eliquis who presents to the ER for dark tarry stools which has been present for the past 3 days. Patient denies any head pain or neck pain. No chest pain or shortness of breath. Admits to chronic upset stomach but notes that this has been present for several months and has been unchanged. Denies any dysuria, urgency, or frequency. No other exacerbating or remitting factors. provides additional history and notes that he believes she has maybe had this once before but is not certain. ADDITIONAL HISTORY OBTAINED: Per HPI Chronic Medical/Social Conditions Affecting Care: Per HPI PAST MEDICAL HISTORY:See Below PAST SURGICAL HISTORY:See Below FAMILY HISTORY:See Below SOCIAL HISTORY:See Below HOME MEDICATIONS:See Below ALLERGIES:See Below VITALS:See Below PHYSICAL EXAMINATION: GENERAL: Sitting up in bed, alert, well appearing, well nourished, no distress, non-toxic EYE EXAM: normal conjunctiva. OROPHARYNX: mucous membranes are moist NECK: supple, no nuchal rigidity, no adenopathy, non-tender LUNGS: Clear to auscultation. Normal chest wall mechanics HEART: no murmurs, S1 normal and S2 normal ABDOMEN: abdomen soft, non-tender, normo-active bowel sounds, no masses, no rebound or guarding. GI: rectal hem + black stools UPPER EXTREMITIES: upper extremities are grossly normal. LOWER EXTREMITIES: No pitting edema. NEURO EXAM: Normal sensorium, cranial nerves II-XII grossly intact, normal speech, no gross weakness of arms, no gross weakness of legs. MEDICAL DECISION MAKING: Patient is a 74-year-old female female who presents ER for the above-stated complaint. IV was established blood work is obtained. Labs show an mild leukopenia 4.5 thousand. Hemoglobin of 12.6 which is fairly consistent with previous around 13. INR unremarkable. BMP with creatinine 1.4. BUN was elevated suggesting an upper GI bleed in combination with heme positive dark stools on rectal exam. LFTs bilirubin was unremarkable. Troponin was negative. Patient was typed and crossed but was not transfused with a current hemoglobin level of 12. Was placed on a Protonix drip and bolus. Discussed case with the hospitalist for further evaluation management treatment. Also patient was in A- fib with RVR upon arrival. She was given IV Lopressor heart rate trended down to the low 100s from the 120s. This was done after the result of the hemoglobin which showed that this is likely not secondary to rapid GI bleeding. She was also given IV fluids here while in the ER. I did also discuss the case with gastroenterology and they will evaluate the patient as well at the request of the hospital service. Consults/Care Managements Discussions: Per [facility] Triage Nursing notes reviewed. Limited review of prior medical records performed Vital Signs: reviewed and remarkable for tachy Differential diagnosis: Differential diagnosis includes etiologies such as diverticulitis, diverticulosis, AVM, coagulopathy, colitis, inflammatory bowel disease, malignancy, Lianet-Cartagena tear, esophagitis, peptic ulcer disease, variceal bleed, gastritis, epistaxis, fissure, hemorrhoids, as well as others were entertained. ER treatment provided: See below Diagnostics interpreted by me include EKG and cardiac monitoring as listed below: -Cardiac Monitoring: An order was placed for continuous cardiac monitoring. The monitor shows a rate of 116 with AFIB rhythm. -ECG: A-pending sale to [facility] RVR rate of 121 Left axis No PVCs Nonspecific ST wave changes in the inferior leads -Laboratory studies:Interpreted by me as stated above in MDM and shown below. Imaging studies: Xrays: As interpreted by me:none CTs show: none Procedures:none Critical Care: I have personally spent 31 minutes of critical care time in the direct management of this patient. This includes bedside care, interpretation of diagnostic studies, and testing, discussion with consultants, patient, and family members, and other required patient management activities. This 31 minutes is in excess of all separately billable procedures. 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 Abdominal pain (Acute) Hyperparathyroidism Physical deconditioning Urinary symptom or sign History of TIA (transient ischemic attack) Chronic cerebral ischemia Complicated migraine Lymphocele after surgical procedure Pancytopenia due to antineoplastic chemotherapy Non Hodgkin's lymphoma (Acute) Current use of intermediate accountant anticoagulation (Acute) A-fib (Acute) History of back problems Fecal incontinence Permanent atrial fibrillation Mesenteric mass Nephrolithiasis Exertional dyspnea Vitamin D deficiency (Acute) Ventral hernia (Acute) Sleep apnea (Acute) Mesenteric fibrosis (Acute) Leukopenia (Acute) BMI 36.0-36.9,adult (Acute) B12 deficiency Kidney stones hx and at present Lesion of ureter biopsy 12/29/2020 Cirrhosis CKD (chronic kidney disease), stage III follows with [place] [facility] per pt Carcinoid tumor PET SCAN AT [facility]> "PLANS TO TREAT FOR B CELL LYMPHOMA SHOULD TREAT CARCINOID TUMOR" > resolved per pt Prediabetes pt unaware (HFpEF) heart failure with preserved ejection fraction f/u dr. brewer, 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 Brewer > med controlled Mesenteric mass recent PET scan --- RECENT B CELL LYMPHOMA CONFIRMED, growth has recently stopped due to chemo Depression Chronic pain of inguinal region Anticoagulant long-term use Dissection of vertebral artery pt unsure/unaware GERD (gastroesophageal reflux disease) Hypertension Surgical History Port-A-Cath in place (12/10/22) Access port placement and use of fluoroscopy. Dr. Leger History of bowel resection WITH COLOSTOMY R/T SBO > colostomy reversed Hx of lymph node biopsy groin area History of bone marrow biopsy S/P ureteral stent placement History of cystoscopy History of tubal ligation History of umbilical hernia repair History of colostomy reversal History of esophagogastroduodenoscopy (EGD) History of colonoscopy (05/2022) History of cardiac radiofrequency ablation D/T AFIB - PT REPORTS HAD 1 BUT MAYBE 2 - NOT SURE DATES ([place]) History of cardioversion multiple History of gastric bypass Hx of laparoscopy Hx of abdominal surgery FOR REMOVAL OF CYST - PT NOT SURE TYPE History of colostomy r/t bowel blockage H/O: hysterectomy Hx of removal of cyst (11/14/23) FINAL DIAGNOSIS In office procedure Dr. Hernandez Skin, left flank mass, excision: - Epidermal inclusion cyst Hx of cholecystectomy Family History Grandmother Diabetes Hypertension Mother Heart disease Hypertension Grandfather Stomach cancer Hypertension Father Pancreatic cancer Hypertension Other No family history of adverse response to anesthesia Denies family history of Ovarian cancer Breast cancer Colorectal cancer Social History Smoking Status: Never smoker Tobacco Type: Cigarettes Age Started Using Tobacco: 20; Age Quit Using Tobacco: 42; packs per day: 1; Second Hand Exposure: No; Do You Dip or Chew Tobacco: No; Hx Alcohol Use: No Hx Substance Use: No Preferred Language: Citizen Of [place] Communication Ability: Effective Visual Impairment: No Limitations Hearing Ability: Normal Health Manager Required: No Beliefs That Will Affect Care: None marital status: Current Living Situation: Spouse Current Living Situation Comment: home with 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 status: retired 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) How many Children do You have: 1 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 [employer] Feels Safe at Home: Yes Diet: regular caffeine: No Dental Care, Regularly: Yes Physical Activity Frequency: Does not Exercise Seatbelt Use: always Sunscreen Use: No Assistive Devices: Glasses Allergies Allergies Allergy/AdvReac Type Severity Reaction Status Date / Time No Known Allergies Allergy Verified 06/02/24 10:12 Home Meds Home Medications Medication Instructions Recorded Confirmed folic acid 1 mg tablet 1 mg PO QAM 07/31/23 07/29/24 magnesium 1 dose PO HS 09/10/23 07/29/24 ferrous sulfate 325 mg (65 mg 325 mg PO DAILY 02/19/24 07/29/24 iron) tablet (FeroSul) cholecalciferol (vitamin D3) 25 2,000 unit PO DAILY 03/16/24 07/29/24 mcg (1,000 unit) capsule (Vitamin D3) atorvastatin 40 mg tablet 40 mg PO QAM 07/29/24 07/29/24 bumetanide 2 mg tablet 2 mg PO UD 07/29/24 07/29/24 Previous Rx's Medication Instructions Recorded aspirin 81 mg tablet,delayed 81 mg PO QAM #30 tabs 07/30/23 release cyanocobalamin (vitamin B-12) 1,000 mcg IM .COMPLEX PRN B12 08/13/23 1,000 mcg/mL injection solution Deficiency #4 mL pantoprazole 20 mg tablet,delayed 20 mg PO BID #180 tabs 12/16/23 release oxycodone 5 mg tablet 5 mg PO Q6H PRN pain #5 tabs 01/17/24 apixaban 5 mg tablet (Eliquis) 5 mg PO BID #180 tabs 03/18/24 bupropion HCl 150 mg 24 hr tablet, 150 mg PO QAM #90 tabs 03/24/24 extended release metoprolol tartrate 50 mg tablet 50 mg PO BID #180 tabs 03/24/24 spironolactone 25 mg tablet 12.5 mg (1/2 x 25 mg) PO QAM #45 03/31/24 (Aldactone) tabs Results & Data (ED) Vital Signs Vital Signs - 24 hr 07/29/24 12:06 07/29/24 12:43 07/29/24 13:02 Temperature 36.6 C Temperature Source Temporal Artery Scan Pulse Rate 121 H 125 H 119 H Pulse Rate [Finger] Pulse Rhythm Regular Pulse Strength Normal Respiratory Rate 20 Respiratory Effort / Characteristics Non-Labored Spontaneous Respiratory Depth Normal Respiratory Pattern Blood Pressure 134/76 133/85 Blood Pressure [Left Arm] Blood Pressure Mean 95 Blood Pressure Mean [Left Arm] Pulse Oximetry 98 Oxygen Delivery Method Room Air Sepsis Recent Fever Within 48 Hours No Sepsis New/Unexplained Change in Mental Status N/A Sepsis Action Taken by Nursing No Action Required 07/29/24 13:30 07/29/24 14:00 Temperature Temperature Source Pulse Rate 91 H Pulse Rate [Finger] 106 H Pulse Rhythm Pulse Strength Respiratory Rate 18 Respiratory Effort / Characteristics Non-Labored Respiratory Depth Normal Respiratory Pattern Regular Blood Pressure 111/72 Blood Pressure [Left Arm] 114/82 Blood Pressure Mean Blood Pressure Mean [Left Arm] 92 Pulse Oximetry 97 Oxygen Delivery Method Room Air Sepsis Recent Fever Within 48 Hours Sepsis New/Unexplained Change in Mental Status Sepsis Action Taken by Nursing Laboratory Data 07/29/24 16:25 07/29/24 12:25 Lab Results 07/29/24 07/29/24 Range/Units 12:25 12:27 WBC 4.58 L (4.8-10.8) K/ul RBC 3.71 L (4.20-5.40) M/uL Hgb 12.6 (12.0-16.0) g/dl Hct 38.2 (37.0-47.0) % MCV 103.0 H (80.0-100.0) fL MCH 34.0 (25.0-34.0) pg MCHC 33.0 (32.0-36.0) g/dL RDW Std Deviation 51.7 H (36.4-46.3) fL RDW Coeff of Rodrigo 13.8 (11.5-14.5) % Plt Count 175 (130-400) K/uL MPV 9.1 L (9.4-12.4) fL PT 11.2 (9.0-12.0) Seconds INR 1.0 (0.9-1.1) APTT 26 (21-31) Seconds PTT Ratio 1.0 Sodium 139 (136-145) mmol/L Potassium 4.0 (3.5-5.1) mmol/L Chloride 106 (98-107) mmol/L Carbon Dioxide 24 (21-32) mmol/L Anion Gap 9 (3-11) BUN 52 H (6-23) mg/dl Creatinine 1.41 H (0.6-1.2) mg/dl Est Cr Clr Drug Dosing 40.0 ml/min Est GFR ( Amer) 43.0 ml/min Est GFR (Non-Af Amer) 37.1 ml/min BUN/Creatinine Ratio 36.9 H (10-20) Glucose 206 H (70-99(Fasting)) mg/dl Calcium 8.7 (8.6-10.3) mg/dl Total Bilirubin 0.7 (0.2-1.0) mg/dl AST 16 (13-39) U/L ALT 13 (7-52) U/L Alkaline Phosphatase 89 (34-104) U/L Troponin I High Sens 5.7 (0-14) pg/ml Total Protein 6.2 (6.0-8.3) gm/dl Albumin 3.9 (3.4-5.0) gm/dl Globulin 2.3 L (2.5-4.0) gm/dl Albumin/Globulin Ratio 1.7 (0.9-2) Blood Type A Positive Antibody Screen NEGATIVE Crossmatch See Detail Administered Medications Pantoprazole Sodium 40 mg/ (Dextrose) 100 mls @ 20 mls/hr IV Q5H JESSIE Stop: 08/28/24 12:59 Last Admin: 07/29/24 13:36 Dose: 8 mg/hr, 20 mls/hr Documented By: PAYTON Discontinued Medications Sodium Chloride (Nss) 500 mls @ 999 mls/hr IV .Q31M ONE Stop: 07/29/24 13:16 Last Infusion: 07/29/24 14:27 Dose: Infused Documented By: Admin: 07/29/24 13:11 Dose: 999 mls/hr Documented By: PAYTON Pantoprazole Sodium 80 mg/ (Dextrose) 120 mls @ 480 mls/hr IV NOW ONE Stop: 07/29/24 12:59 Last Infusion: 07/29/24 13:45 Dose: Infused Documented By: Admin: 07/29/24 13:07 Dose: 480 mls/hr Documented By: PAYTON Metoprolol Tartrate (Metoprolol Tartrate 1 Mg/Ml Vial) 2.5 mg IV NOW STA Stop: 07/29/24 12:47 Last Admin: 07/29/24 13:02 Dose: 2.5 mg Documented By: PAYTON Pantoprazole Sodium (Pantoprazole Bolus/Drip) 1 each IV NOW STA Stop: 07/29/24 12:46 Last Admin: 07/29/24 13:13 Dose: Not Given Documented By: PAYTON Discharge Plan Visit Data Chief Complaint: Referred by Doctor Stated Complaint: BLACK STOOL ED Provider: Darius Zimmerman Discharge Problem: Acute GI bleeding, Atrial fibrillation with RVR, Anemia Patient Disposition: Admitted As Inpatient Discharge Instructions Interventions: ED Discharge Assessment Last Done: 07/29/24 16:30 Discharge Problem: Anemia Qualifiers: Anemia type: unspecified type Qualified Code(s): D64.9 - Anemia, unspecified
[2024-07-29] MEDS: METOPROLOL TARTRATE 1 MG/ML VIAL IV STA (13:02)
[2024-07-29] MEDS: PANTOprazole 80 MG in DEXTROSE 5% 100 ML IV ONE (13:07)
[2024-07-29] MEDS: SODIUM CHLORIDE 0.9% 500 ML IV ONE (13:11)
[2024-07-29] MEDS: PANTOPRAZOLE BOLUS/DRIP IV STA (13:13)
[2024-07-29 13:18] LABS: Albumin Globulin Ratio 1.7 (0.9-2); Albumin Level 3.9 gm/dl (3.4-5.0); BUN Creatinine Ratio 36.9 (10-20); Bilirubin,Total 0.7 mg/dl (0.2-1.0); Calcium 8.7 mg/dl (8.6-10.3); Est GFR (Non-African American) 37.1 ml/min; Globulin 2.3 gm/dl (2.5-4.0); Total Protein 6.2 gm/dl (6.0-8.3)
[2024-07-29 13:23] LABS: Troponin I High Sensitivity 5.7 pg/ml (0-14)
[2024-07-29] MEDS: PANTOprazole 40 MG in DEXTROSE 5% MINI-B 100 ML IV SCH (13:36)
--- NOTE | 2024-07-29 13:54 | History & Physical Report ---
Date of Service July 29, 2024 Assessment & Plan (1) Upper GI bleed: Plan: Referred by doctor on 07/29 for dark stool x 3 days Hemoccult (+) on arrival Hx of gastric bypass BUN/creatinine level elevated >30 Hgb 12.6 on arrival; Trend H&H q4h Protonix IV bolus + drip Keep n.p.o. for now except for medications, then advance to clear liquid diet as tolerated 1 unit pRBCs ordered, held Gastroenterology consult appreciated A.m. CBC, BMP, mag (2) Atrial fibrillation with RVR: Plan: Patient in A-fib with RVR on arrival Metoprolol 5 mg IV q6h as needed for HR > 140bpm Continue home metoprolol Continuous telemetry monitoring on PCU Hold Eliquis in the setting of acute GI bleed (3) (HFpEF) heart failure with preserved ejection fraction: Plan: Last echocardiogram on LVEF at 60 to 65% with severe biatrial dilation Daily weights Strict I&O monitoring Hold Lasix and spironolactone for now (4) CKD (chronic kidney disease), stage III: Plan: Avoid nephrotoxic agents for possible Plan Disposition: Admit to PCU telemetry Full code N.p.o. then advance to VTE PPx: Hold Eliquis/aspirin; SCDs History of Present Illness Chief Complaint: Referred by Doctor Primary Care Provider: Christopher Guevara MD Tea is a 74-year-old female with PMH of HFpEF, prediabetes, carcinoid tumor, CKD stage III, cirrhosis, sleep apnea, non-Hodgkin's lymphoma, B-cell lymphoma atrial fibrillation (on Eliquis), TIA, and hyperparathyroidism. She presented on 07/29 at the behest of her PCP for dark stools x 3 days. No prior history of GI bleeds. She reports her stool has been a consistency that is both formed at times and diarrhea at times. She also notes mucus in her stool x 1 week. Occasionally, she will note bright red blood in her stool with melena. Patient took her regular morning medications today. Patient takes aspirin for history of heart failure and preventative prophylaxis; no history of stents. She did recently finish a course of ciprofloxacin for UTI. No other recent change in medications. She denies any recent Pepto-Bismol or NSAID use. She does have history of a colonoscopy within the past year. History of multiple abdominal surgeries; gastric bypass in 2007, cyst removal, and hernia repair with mesh. Patient denies smoking, tobacco use, recent alcohol use. Patient is tachycardic at 119 bpm at time of admission; vitals otherwise stable. ED course: Pantoprazole IV bolus + drip Lopressor 2.5 mg IV NSS 750 mL IV ROS: Patient endorses occasional intermittent chest palpitations, abdominal pain (not new; chronic), and melena/black tarry stool with occasional BRB in stool. Patient denies fever, chills, night-sweats, dizziness, lightheadedness, GOOD, chest pain, SOB, nausea, vomiting, burning with urination (recently resolved), or blood in the urine. Allergies Allergy/AdvReac Type Severity Reaction Status Date / Time No Known Allergies Allergy Verified 06/02/24 10:12 Home Medications Medication Instructions Recorded Confirmed Type aspirin 81 mg tablet,delayed 81 mg PO QAM #30 tabs 07/30/23 07/29/24 Rx release folic acid 1 mg tablet 1 mg PO QAM 07/31/23 07/29/24 History cyanocobalamin (vitamin B-12) 1,000 mcg IM .COMPLEX PRN B12 08/13/23 07/29/24 Rx 1,000 mcg/mL injection solution Deficiency #4 mL magnesium 1 dose PO HS 09/10/23 07/29/24 History pantoprazole 20 mg tablet,delayed 20 mg PO BID #180 tabs 12/16/23 07/29/24 Rx release oxycodone 5 mg tablet 5 mg PO Q6H PRN pain #5 tabs 01/17/24 07/29/24 Rx ferrous sulfate 325 mg (65 mg 325 mg PO DAILY 02/19/24 07/29/24 History iron) tablet (FeroSul) cholecalciferol (vitamin D3) 25 2,000 unit PO DAILY 03/16/24 07/29/24 History mcg (1,000 unit) capsule (Vitamin D3) apixaban 5 mg tablet (Eliquis) 5 mg PO BID #180 tabs 03/18/24 07/29/24 Rx bupropion HCl 150 mg 24 hr tablet, 150 mg PO QAM #90 tabs 03/24/24 07/29/24 Rx extended release metoprolol tartrate 50 mg tablet 50 mg PO BID #180 tabs 03/24/24 07/29/24 Rx spironolactone 25 mg tablet 12.5 mg (1/2 x 25 mg) PO QAM #45 03/31/24 07/29/24 Rx (Aldactone) tabs atorvastatin 40 mg tablet 40 mg PO QAM 07/29/24 07/29/24 History bumetanide 2 mg tablet 2 mg PO UD 07/29/24 07/29/24 History Past Med/Surg History Problem List (Updated 07/29/24 @ 13:56 by Sky Griffin PA-C) Upper GI bleed Atrial fibrillation with RVR Atrial fibrillation with slow ventricular response Chronic diastolic congestive heart failure B-cell lymphoma dx ~03/2022, no longer in chemo Abdominal pain (Acute) Hyperparathyroidism Physical deconditioning Urinary symptom or sign History of TIA (transient ischemic attack) Chronic cerebral ischemia Complicated migraine Lymphocele after surgical procedure Pancytopenia due to antineoplastic chemotherapy Non Hodgkin's lymphoma (Acute) Current use of stonework tracer anticoagulation (Acute) A-fib (Acute) History of back problems Fecal incontinence Permanent atrial fibrillation Mesenteric mass Nephrolithiasis Exertional dyspnea Vitamin D deficiency (Acute) Ventral hernia (Acute) Sleep apnea (Acute) Mesenteric fibrosis (Acute) Leukopenia (Acute) BMI 36.0-36.9,adult (Acute) B12 deficiency Kidney stones hx and at present Lesion of ureter biopsy 12/29/2020 Cirrhosis CKD (chronic kidney disease), stage III follows with [place] [facility] per pt Carcinoid tumor PET SCAN AT [facility]> "PLANS TO TREAT FOR B CELL LYMPHOMA SHOULD TREAT CARCINOID TUMOR" > resolved per pt Prediabetes pt unaware (HFpEF) heart failure with preserved ejection fraction f/[place] dr[place] bre[place] [facility] [place] (Updated 07/29/24 @ 13:56 by Sky Griffin PA-C) Nausea Non-Hodgkin lymphoma in remission Neutropenia Pancytopenia Current use of correction anticoagulation Hx of pancreatitis no episodes since Jul 2023 History of anemia IRON INFUSIONS IN PAST History of COVID-19 07/2022 > RESOLVED Sleep apnea NO DEVICE Lymphoma hx 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 Brewer > med controlled Mesenteric mass recent PET scan --- RECENT B CELL LYMPHOMA CONFIRMED, growth has recently stopped due to chemo Depression Chronic pain of inguinal region Anticoagulant long-term use Dissection of vertebral artery pt unsure/unaware GERD (gastroesophageal reflux disease) Hypertension Surgical History Port-A-Cath in place (12/10/22) Access port placement and use of fluoroscopy. Dr. Leger History of bowel resection WITH COLOSTOMY R/T SBO > colostomy reversed Hx of lymph node biopsy groin area History of bone marrow biopsy S/P ureteral stent placement History of cystoscopy History of tubal ligation History of umbilical hernia repair History of colostomy reversal History of esophagogastroduodenoscopy (EGD) History of colonoscopy (05/2022) History of cardiac radiofrequency ablation D/T AFIB - PT REPORTS HAD 1 BUT MAYBE 2 - NOT SURE DATES ([place]) History of cardioversion multiple History of gastric bypass Hx of laparoscopy Hx of abdominal surgery FOR REMOVAL OF CYST - PT NOT SURE TYPE History of colostomy r/t bowel blockage H/O: hysterectomy Hx of removal of cyst (11/14/23) FINAL DIAGNOSIS In office procedure Dr. Hernandez Skin, left flank mass, excision: - Epidermal inclusion cyst Hx of cholecystectomy Family History Grandmother Diabetes Hypertension Mother Heart disease Hypertension Grandfather Stomach cancer Hypertension Father Pancreatic cancer Hypertension Other No family history of adverse response to anesthesia Denies family history of Ovarian cancer Breast cancer Colorectal cancer Social History Smoking Status: Never smoker Tobacco Type: Cigarettes Age Started Using Tobacco: 20; Age Quit Using Tobacco: 42; packs per day: 1; Second Hand Exposure: No; Do You Dip or Chew Tobacco: No; Hx Alcohol Use: No Hx Substance Use: No Preferred Language: Tuvaluan Communication Ability: Effective Visual Impairment: No Limitations Hearing Ability: Normal Recruiting Coordinator Required: No Beliefs That Will Affect Care: None marital status: Current Living Situation: Spouse Current Living Situation Comment: home with 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 status: retired 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) How many Children do You have: 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 Feels Safe at Home: Yes Diet: regular caffeine: No Dental Care, Regularly: Yes Physical Activity Frequency: Does not Exercise Seatbelt Use: always Sunscreen Use: No Assistive Devices: Glasses Review of Systems Review of Systems: See HPI above Physical Exam Physical Exam: General: no acute distress; pleasant affect; non-toxic appearing; well- nourished; cooperative; SpO2 97% on RA HEENT: normocephalic, atraumatic; no scleral icterus; PERRLA w/ EOMs intact; vision and hearing grossly intact Neck: supple; no lymphadenopathy; trachea midline Skin: warm, dry without signs of tenting; no cyanosis; no rashes, bruising, les ions, or erythema noted CV: chest wall NTP; irregularly irregular rhythm tachycardic around 100 bpm; S1/S2 normal; no murmurs/rubs/gallops; pulses intact and symmetric at radial, DP, and PT Lungs: no acute respiratory distress; symmetrical chest wall expansion; clear breath sounds across all lung angel w/o adventitious sounds; no wheezing ABD: Soft; mildly TTP in the lower quadrants bilaterally; no signs of rashes or bruising on the abdomen or flanks; BS present; no rebound/guarding; moderate distention secondary to body habitus MSK: no tics or fasciculations; no edema noted in the LEs b/l, nonerythematous Neuro: A&Ox3; normal mood and affect; fluent speech; no focal deficits; sensation grossly intact and symmetric in the LEs b/l Results & Data Results & Data Vital Signs (Past 12 Hours) Vital Signs Temp Pulse Resp BP Pulse Ox O2 Del Method 07/29/24 13:02 119 H 133/85 07/29/24 12:43 125 H 07/29/24 12:06 36.6 C 121 H 20 134/76 98 Room Air Laboratory Results Abnormal lab results 07/29/24 07/29/24 Range/Units 12:25 12:27 WBC 4.58 L (4.8-10.8) K/ul RBC 3.71 L (4.20-5.40) M/uL MCV 103.0 H (80.0-100.0) fL RDW Std Deviation 51.7 H (36.4-46.3) fL MPV 9.1 L (9.4-12.4) fL BUN 52 H (6-23) mg/dl Creatinine 1.41 H (0.6-1.2) mg/dl BUN/Creatinine Ratio 36.9 H (10-20) Glucose 206 H (70-99(Fasting)) mg/dl Globulin 2.3 L (2.5-4.0) gm/dl Crossmatch See Detail ECG Additional Comments: ECG revealed atrial fibrillation with RVR at 121 bpm; QTc 477 Code Status & VTE Plan Code Status Full code VTE Prophylaxis Plan VTE Prophylaxis will be ordered: Yes Supervising Physician Co-Signing Physician Notes Patient seen and examined, chart reviewed, case discussed with Sky Griffin PA-C and I agree with the assessment and plan as above except as otherwise noted Labs and images reviewed 74yo F who presents with 3 days of melena, no prior GIB. Is on anticoagulation for Afib. Occasional hematochezia. +hx of gastric bipass 2007. Hgb 14.1 --> 12.6. Transiently tachycardic, rate improved post fluids. No NSAID use. At risk for ulcers at bipass site. BUN is acutely elevated. no epigastric TTP. Admitted on PPI drip. GI following. No indication for transfusion at time of admission. Eliquis and aspirin temporarily held. Agree w/ above. PG Care Time/CCT Total # of Minutes Spent Total Time Spent with Patient: Total time spent is greater than 50% in coordination of care (as documented) at patient's floor/unit and/or counseling patient: Coding [place] [address] INT INP/OBS CARE 3/75MIN Patient Type Established History Comprehensive Exam Comprehensive Medical Decision Making High Complexity Diagnoses Upper GI bleed K92.2 Atrial fibrillation with RVR I48.91 (HFpEF) heart failure with preserved ejection fraction I50.30 Stage 3a chronic kidney disease N18.31 Chronic kidney disease stage 3 subtype: stage 3a (GFR 45-59) (4) CKD (chronic kidney disease), stage III Chronic kidney disease stage 3 subtype: stage 3a (GFR 45-59) Qualified Code(s): N18.31 - Chronic kidney disease, stage 3a
--- NOTE | 2024-07-29 14:56 | Gastrointestinal Consultation ---
Date of Consultation July 29, 2024 Assessment & Plan (1) Upper GI bleed: Patient is a 74 year old female here with a few day history of dark stools. hgb currently stable at 12.6. she is on eliquis as an outpatient for a fib with last dose this morning. - continue with protonix drip at this time. - monitor hgb/hct and transfuse as needed. - will plan for EGD to further evaluate but given that she appears stable at this time, will need to wait since she has been on eliquis. last dose was in AM 07/29. Will plan to monitor tomorrow and proceed with EGD Saturday. Supervising Physician Co-Signing Physician Notes I saw and examined this patient with our nurse practitioner and agree with her assessment and plan. Clinical picture consistent with upper GI bleed. Status post gastric bypass need to consider anastomotic ulcer. Last endoscopy was unrevealing back in December. Hemodynamically stable hemoglobin 12.6. Will proceed with upper endoscopy once Eliquis washout has occurred. Plan for Saturday. Continue IV PPI. History of Present Illness Reason for Consultation: Melena Requesting Physician: Dr. Zimmerman History of Present Illness Patient is a 74 year old female with a past medical history of HFpEF, prediabetes, carcinoid tumor, CKD stage III, cirrhosis, sleep apnea, non- Hodgkin's lymphoma, B-cell lymphoma atrial fibrillation (on Eliquis), TIA, and hyperparathyroidism who presented to the ED on 07/29 at the request of her PCP for dark stools x 3 days. she admits to several stools daily over this course. stools tested heme positive on arrival to ED. she is also having mid epigastric pain. no nsaid use. rest of GI ros unermarkable. she does use eliquis as an outpatient for a fib with her last dose being in the AM today 07/29. Last EGD in 12/2023 was unremarkable with healthy mucosa at gastric bypass. she also had colonoscopy at that time with internal hemorrhoids and diverticulosis. 07/29 hgb 12.6 Allergies Allergy/AdvReac Type Severity Reaction Status Date / Time No Known Allergies Allergy Verified 06/02/24 10:12 Home Medications Medication Instructions Recorded Confirmed Type aspirin 81 mg tablet,delayed 81 mg PO QAM #30 tabs 07/30/23 07/29/24 Rx release folic acid 1 mg tablet 1 mg PO QAM 07/31/23 07/29/24 History cyanocobalamin (vitamin B-12) 1,000 mcg IM .COMPLEX PRN B12 08/13/23 07/29/24 Rx 1,000 mcg/mL injection solution Deficiency #4 mL magnesium 1 dose PO HS 09/10/23 07/29/24 History pantoprazole 20 mg tablet,delayed 20 mg PO BID #180 tabs 12/16/23 07/29/24 Rx release oxycodone 5 mg tablet 5 mg PO Q6H PRN pain #5 tabs 01/17/24 07/29/24 Rx ferrous sulfate 325 mg (65 mg 325 mg PO DAILY 02/19/24 07/29/24 History iron) tablet (FeroSul) cholecalciferol (vitamin D3) 25 2,000 unit PO DAILY 03/16/24 07/29/24 History mcg (1,000 unit) capsule (Vitamin D3) apixaban 5 mg tablet (Eliquis) 5 mg PO BID #180 tabs 03/18/24 07/29/24 Rx bupropion HCl 150 mg 24 hr tablet, 150 mg PO QAM #90 tabs 03/24/24 07/29/24 Rx extended release metoprolol tartrate 50 mg tablet 50 mg PO BID #180 tabs 03/24/24 07/29/24 Rx spironolactone 25 mg tablet 12.5 mg (1/2 x 25 mg) PO QAM #45 03/31/24 07/29/24 Rx (Aldactone) tabs atorvastatin 40 mg tablet 40 mg PO QAM 07/29/24 07/29/24 History bumetanide 2 mg tablet 2 mg PO UD 07/29/24 07/29/24 History Patient History Medical History (Updated 07/29/24 @ 13:56 by Sky Griffin PA-C) Nausea Non-Hodgkin lymphoma in remission Neutropenia Pancytopenia Current use of intermediate card tender anticoagulation Hx of pancreatitis no episodes since Jul 2023 History of anemia IRON INFUSIONS IN PAST History of COVID-19 07/2022 > RESOLVED Sleep apnea NO DEVICE Lymphoma hx 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 Brewer > med controlled Mesenteric mass recent PET scan --- RECENT B CELL LYMPHOMA CONFIRMED, growth has recently stopped due to chemo Depression Chronic pain of inguinal region Anticoagulant long-term use Dissection of vertebral artery pt unsure/unaware GERD (gastroesophageal reflux disease) Hypertension Surgical History Port-A-Cath in place (12/10/22) Access port placement and use of fluoroscopy. Dr. Leger History of bowel resection WITH COLOSTOMY R/T SBO > colostomy reversed Hx of lymph node biopsy groin area History of bone marrow biopsy S/P ureteral stent placement History of cystoscopy History of tubal ligation History of umbilical hernia repair History of colostomy reversal History of esophagogastroduodenoscopy (EGD) History of colonoscopy (05/2022) History of cardiac radiofrequency ablation D/T AFIB - PT REPORTS HAD 1 BUT MAYBE 2 - NOT SURE DATES ([place]) History of cardioversion multiple History of gastric bypass Hx of laparoscopy Hx of abdominal surgery FOR REMOVAL OF CYST - PT NOT SURE TYPE History of colostomy r/t bowel blockage H/O: hysterectomy Hx of removal of cyst (11/14/23) FINAL DIAGNOSIS In office procedure Dr. Hernandez Skin, left flank mass, excision: - Epidermal inclusion cyst Hx of cholecystectomy Family History Grandmother Diabetes Hypertension Mother Heart disease Hypertension Grandfather Stomach cancer Hypertension Father Pancreatic cancer Hypertension Other No family history of adverse response to anesthesia Denies family history of Ovarian cancer Breast cancer Colorectal cancer Social History Smoking Status: Never smoker Tobacco Type: Cigarettes Age Started Using Tobacco: 20; Age Quit Using Tobacco: 42; packs per day: 1; Second Hand Exposure: No; Do You Dip or Chew Tobacco: No; Hx Alcohol Use: No Hx Substance Use: No Preferred Language: [place] Communication Ability: Effective Visual Impairment: No Limitations Hearing Ability: Normal 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: No Beliefs That Will Affect Care: None marital status: Current Living Situation: Spouse Current Living Situation Comment: home with 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 status: retired 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 Safe at Home: Yes Diet: regular caffeine: No Dental Care, Regularly: Yes Physical Activity Frequency: Does not Exercise Seatbelt Use: always Sunscreen Use: No Assistive Devices: Glasses Review of Systems Review of Systems: All systems reviewed & are unremarkable except as noted in HPI & below Physical Exam Constitutional: WD/WN, vitals as above Respiratory: normal respiratory effort, lungs clear to auscultation Cardiovascular: Rate/Rhythm: regular rate and regular rhythm Gastrointestinal (Abdomen): normal bowel sounds, soft, nontender, no hepatosplenomegaly Psychiatric: Orientation: alert and oriented x 3 Affect: euthymic affect Results & Data Vital Signs (Past 12 Hours) Vital Signs Temp Pulse Pulse Resp BP BP Pulse Ox 07/29/24 14:00 91 H 111/72 07/29/24 13:30 106 H 18 114/82 97 07/29/24 13:02 119 H 133/85 07/29/24 12:43 125 H 07/29/24 12:06 97.9 F 121 H 20 134/76 98 O2 Del Method 07/29/24 14:00 07/29/24 13:30 Room Air 07/29/24 13:02 07/29/24 12:43 07/29/24 12:06 Room Air Laboratory Results Laboratory Results - last 48 hr 07/29/24 07/29/24 12:25 12:27 WBC 4.58 L RBC 3.71 L Hgb 12.6 Hct 38.2 MCV 103.0 H MCH 34.0 MCHC 33.0 RDW Std Deviation 51.7 H RDW Coeff of Rodrigo 13.8 Plt Count 175 MPV 9.1 L PT 11.2 INR 1.0 APTT 26 PTT Ratio 1.0 Sodium 139 Potassium 4.0 Chloride 106 Carbon Dioxide 24 Anion Gap 9 BUN 52 H Creatinine 1.41 H Est Cr Clr Drug Dosing 40.0 Est GFR ( Amer) 43.0 Est GFR (Non-Af Amer) 37.1 BUN/Creatinine Ratio 36.9 H Glucose 206 H Calcium 8.7 Total Bilirubin 0.7 AST 16 ALT 13 Alkaline Phosphatase 89 Troponin I High Sens 5.7 Total Protein 6.2 Albumin 3.9 Globulin 2.3 L Albumin/Globulin Ratio 1.7 Blood Type A Positive Antibody Screen NEGATIVE Crossmatch See Detail Coding Level of Care Code 33505 INT INP/OBS CARE MIN Diagnoses Upper GI bleed K92.2
[2024-07-29] MEDS ORDERED: METOPROLOL TARTRATE 1 MG/ML VIAL IV PRN (16:29)
[2024-07-29] MEDS ORDERED: ACETAMINOPHEN 325 MG TAB PO PRN (16:29)
[2024-07-29 16:39] LABS: Hematocrit (blood only) 34.3 % (37.0-47.0); Hemoglobin 11.3 g/dl (12.0-16.0)
[2024-07-29] MEDS ORDERED: MAGNESIUM PO SCH (21:00)
[2024-07-29 21:11] LABS: Hematocrit (blood only) 35.3 % (37.0-47.0); Hemoglobin 11.6 g/dl (12.0-16.0)
[2024-07-29] MEDS: METOPROLOL TARTRATE 50 MG TAB PO SCH (21:19)
--- OUTSIDE RECORDS SUMMARY | 2024-07-29 23:31 | External Medical Summary | Continuity of Care Document ---
Author Name Unknown Organization [facility] [address] Address [address] [place], [place] [id number] Care Team Providers Care Line Inspector Name Role Phone Christopher Guevara Primary Care Physician [phone] [id number] Date(s): 06/19/24 - 06/19/24 [facility] [address] [facility] [address], [address] [place], [place] [phone] Encounter Diagnosis Unspecified cirrhosis of liver(Final) - Discharge Disposition: Home or Self Care Attending Physician: MD Angelia, Rafael Rodriguez Referring Physician: MD Angelia, Rafael Rodriguez Allergies, Adverse Reactions, Alerts No Known Allergies Immunizations Given and Recorded Vaccine Date Status Refusal Reason influenza virus vaccine, inactivated 1 09/13/16 Gi makenna 1Early/Late Reason: Other : Medications aspirin 81 mg oral delayed release tablet Start: 06/19/24 2:20:00 PM EDT, 1 tab, PO, Daily Start Date: 06/19/24 Status: Ordered atorvastatin 40 mg oral tablet Start: 02/19/19 3:03:00 PM EDT, 1 tab, PO, Daily Start Date: 02/19/19 Status: Ordered bumetanide 2 mg oral tablet Start: 06/19/24 2:20:00 PM EDT, 1 tab, PO, Daily Start Date: 06/19/24 Status: Ordered buPROPion 150 mg/24 hours (XL) oral tablet, extended release Start: 12/29/21 1:54:00 PM EST, 1 tab, PO, Daily Start Date: 12/29/21 Status: Ordered DilTIAZem (Eqv-Cardizem CD) 120 mg/24 hours oral capsule, extended release Start: 01/25/23 11:39:00 AM EST, 1 cap, PO, Daily Start Date: 01/25/23 Status: Ordered Eliquis 5 mg oral tablet Start: 01/25/23 11:39:00 AM EST, 1 tab, PO, bid Start Date: 01/25/23 Status: Ordered folic acid Start: 10/31/23 8:12:00 AM EST Start Date: 10/31/23 Status: Ordered Lasix 40 mg oral tablet Start: 11/20/23 1:16:00 PM EST, 1 tab, PO, bid, Disp# 60 tab, Refills: 11, take 1 tab daily., Pharmacy: [facility] Start Date: 11/20/23 Status: Ordered magnesium sulfate Start: 10/31/23 8:12:00 AM EST Start Date: 10/31/23 Status: Ordered pantoprazole 40 mg oral delayed release tablet Start: 01/22/20 5:16:00 PM EST, 1 tab, PO, bid Start Date: 01/22/20 Status: Ordered spironolactone 25 mg oral tablet Start: 06/19/24 2:19:00 PM EDT, 0.5 tab, PO, Daily Start Date: 06/19/24 Status: Ordered Vitamin D3 Start: 11/16/22 2:07:00 PM EST, PO, Daily Start Date: 11/16/22 Status: Ordered Problem List Condition Confirmation Course Effective Dates Status H ealt Status Informant Mesenteric mass Confirmed Active Abdominal pain Confirmed Active Atrial Fibrillation Confirmed Active Atrial fibrillation Confirmed Active Dilated bile duct Confirmed Active Cirrhosis Confirmed Active C. difficile diarrhea Confirmed Active Pancreatic cyst Confirmed Active Depression Confirmed Active Diarrhea Confirmed Active Hematuria Confirmed Active GERD Confirmed Active Heart failure Confirmed Active Ventral hernia Confirmed Active Left hip pain Confirmed Active Hyperlipidemia Confirmed Active Hypertension Confirmed Active LUQ pain Confirmed Active Low back pain Confirmed Active Skin cancer Confirmed Active Metabolic syndrome Confirmed Active HOFFMAN (nonalcoholic steatohepatitis) Confirmed Active Pre-op exam Confirmed Active Recurrent pancreatitis Confirmed Active Sleep apnea Confirmed Active Small bowel obstruction Confirmed Active Tobacco user Confirmed Active Brain TIA Confirmed Active Trochanteric bursitis, left hip Confirmed Active Weight disorder Confirmed Active Procedures Procedure Date Related Diagnosis Body Site Status CT of abdomen and pelvis 1 10/12/18 Completed Upper GI endoscopy 2 06/25/18 Comp leted MRCP - Magnetic resonance cholangiopancreatography 3 03/25/18 Compl eted Colonoscopy 4, 5 06/13/17 Complete d Upper GI endoscopy 6, 7 06/13/[address] of abdomen and pelvis wit h contrast 8 03/28/16 Completed Ultrasound-Abdominal 9 02/10/16 Co mpleted Anesthesia for endoscopy 2016 Completed Cholecystectomy 06/15/15 Completed Creation of tube gastrostomy ,GOT INFECTION 06/15/15 Completed Colonoscopy 10 04/11/15 Completed Gastric bypass 2014 Completed Hysterectomy and bilateral salpingo-oophorectomy sample 06/01/14 Com pleted Cardiac albation 2012 Complete d Tubal ligation 2009 Completed 11) Slight increase in size in the trace right pleural effusion. 2) There is slight progression in the peripancreatic/mesenteric fat stranding. This raises the possibiliity of acute pancreatitis. Recommend correlation with pancreatic enzymes for further evaluation. 3) No bowel wall thickening or obstruction. 4) B/L nephrolithiasis. No hydronephrosis. 5) Additional stable findings as described above. 2Z-line regular, 35 cm from the incisors. Widely patent Schatzki ring. Gastric bypass with intact staple line. Gastrojejunal anastomosis characterized by healthy appearing mucosa. Normal examined jejunum. No specimens collected 3surgically absent gallbladder 6.7mm common bile duct Normal caliber pancreatic duct No common bile duct calculi identified Mild peripancreatic and periduodenal edema consistent with the clinical history of pancreatitis 4The terminal ileum is normal, biopsied. The descending colon and ascending colon are normal, biopsied. The examination was otherwise normal. Non-bleeding internal hemorrhoids. 5Pathology results: A) Terminal ileum, biopsies: benign unremarkable ileal mucosa B) Colon, ascending, biopsies: benign unremarkable colonic mucosa C) Colon, descending, biopsies: Benign unremarkable colonic mucosa. 6Pathology results: A) Jejunum, biopsies: benign unremarkable small bowel mucosa. B) Stomach/gastricpouch biopsies: 1) Benign unremarkable gastric mucosa. 2) Negative for gastritis, intestinal metaplasia, dysplasia and carcinoma. 3) No H. pylori organisms identified on H&E stain. 7Normal esophagus Widely patent and non-obstructing Schatzki ring. Small hiatal hernia. Patent Billroth I appearing gastroduodenostomy was found, characterized by erythema, inflammation and an intact staple line. Biopsied. 81) Considerable improvement as compared to the prior study. 2) Small residual right effusion considerably impproved from the prior exam. 3) Considerable decrease in the mid mesenteric infilitrative change with mild improvement of the infilitrative changes of the lateral paracolic gutter regions. 4) Mild residual nodularity and/or gonzalez changes mid mesentery with at least one short segment residual lloop of small bowel thickening 5) Unchanging bowel containing ventral hernia 6) Several nonobstructiong renal calcifications unchanged. 9ilateral nephrolithiasis. No hydronephrosis Left renal cyst Prior cholecystectomy Mild hepatomegaly. There is also slightly nodular contour to the liver suggestive of cirrosis Trace ascites 10Diverticulosis in sigmoid colon Non bleeding internal hemorrhoids. No specimens collected. Repeat 10 YRS for screening. Results Laboratory List Name Date Basic Metabolic Panel (BASIC METAB PANEL ) 06/19/24 Most recent to oldest [Reference Range]: 1 eGFR CKD-EPI [>60 mL/min/1.73 m2] 40 mL/ min/1.73 m2 1 *LOW* (06/19/24 3:02 PM) Estimated CrCl 39.59 mL/min (06/19/24 3:28 PM) Anion Gap [5-14 mmol/L] 4 mmol/L *LOW* (06/19/24 3:02 PM) BUN [7-20 mg/dL] 39 mg/dL *HI* (06/19/24 3:02 PM) Ca [8.4-10.2 mg/dL] 8.7 mg/dL (06/19/24 3:02 PM) Cl- [96-107 mmol/L] 109 mmol/L *HI* (06/19/24 3:02 PM) HCO3 [22-30 mmol/L] 27 mmol/L (06/19/24 3:02 PM) Cret [0.60-1.00 mg/dL] 1.40 mg/dL *HI* (06/19/24 3:02 PM) Glu [74-106 mg/dL] 102 mg/dL (06/19/24 3:02 PM) K [3.5-5.1 mmol/L] 4.3 mmol/L (06/19/24 3:02 PM) Na [137-145 mmol/L] 140 mmol/L (06/19/24 3:02 PM) 1Result Comment: Testing Performed By: Dept of Pathology [facility] [address], [address], [place] [address] Social History Social History Type Response Smoking Status Current every day li ght smoker Sex Female Patient Care team information Care Team Personnel Name: MOLLY Su Ann Smith Position: Nurse Pract - Surgery Oncology Member Role: Lifetime Relationship Address: Address: [address] [place] [phone] Name: MD Paola, Christopher Henderson Position: Referring DIRECT Member Role: Primary Care Provider Address: Address: [address] [place] [id number] Name: MD Montano Jay D Position: Physician - Urology Member Role: Lifetime Relationship Address: Address: [address] [place] [address] [place] Care Team Related Persons Name: JAMILA TEMPLE Address: home No Address Provided SKYLAR HINKLE [phone] Name: MARY JO MCKEON Address: home [address] [place] [phone]
--- OUTSIDE RECORDS SUMMARY | 2024-07-29 23:31 | External Medical Summary | Continuity of Care Document ---
Author Name Unknown Organization [facility] [address] [facility] Address [address], [place] [id number] Care Team Providers Care Occupational Health Nurse Name Role Phone Christopher Guevara Primary Care Physician [phone] [id number] Date(s): 06/19/24 - 06/19/24 [facility], [address] [place] [address] [phone] Encounter Diagnosis Hyperparathyroidism(Discharge Diagnosis) - 06/19/24 Abnormal weight gain(Discharge Diagnosis) - 06/19/24 Abnormal weight gain(Final) - Discharge Disposition: Home or Self Care Attending Physician: DO Jordan Melissa M Referring Physician: MD Paul Stephen M Allergies, Adverse Reactions, Alerts No Known Allergies Assessment and Plan Extracted from: Title:Office Visit Note Author:DO Jordan Meliss a M Date:06/19/24 Hyperparathyroidism It is my impression that Tea Dawkins is a 74-year-old female with biochemical diagnosis of hyperparathyroidism. I do think this is likely secondaryto her Ngoc-en-Y gastric bypass procedure given the normal calciumsthat she has had even when her PTH was around 300 and now around 670. We discussed that surgery for secondary hyperparathyroidism involves 3 or 3-1/2 gland parathyroidectomy. I think this will be problematic for Mrs. Dawkins given the gastric bypass procedure. The Ngoc-en-Y bypass is amalabsorptive procedureand in performing that degree of parathyroidectomy she will most certainlyhave symptomatic hypocalcemia. Supplementation in patients with Ngoc-en-Y gastric bypassgiven their abnormal anatomy is problematic and she will likelynot be able to absorb a significant amount of supplemental calcium +/- vitaminD as the duodenum is bypassed. Thesymptoms from hypocalcemia can be far worse than what she is experiencing currently. Therefore I do not currently recommend aparathyroidectomy for her. Certainly if her PTH risesinto the level of the thousands we could reconsider;I think at this timethe risks of the surgeryparticularlythe postop hypocalcemia far outweigh the benefit. Immunizations Given and Recorded Vaccine Date Status [...] PO, Daily Start Date: 11/16/22 Status: Ordered Mental Status 06/19/24 Barriers to Learning one year None evide nt Mandatory Health Literacy Documentation Yes Health Literacy Communication Barriers N ever Primary Language Cambodian Problem List Condition Confirmation Course Effective Dates Status H ealth Status Informant Mesenteric mass Confirmed Active Abdominal [...] hip Confirmed Active Weight disorder Confirmed Active Diagnosis Diagnosis Type Effective Dates Health Status Clinical Service Informant Hyperparathyroidism Discharge Diagnosis 06/19/24 Non-Specified Abnormal weight gain Discharge Diagnosis 06/19/24 Non-Specified Procedures Procedure Date Related Diagnosis Body Site [...] for screening. Results Laboratory List Name Date Free T3 (T3, FREE) 06/19/24 T4, Free (T4, FREE) 06/19/24 Thyroid Stimulating Hormone (TSH) 4 Most recent to oldest [Reference Range]: 1 Free T4 [0.9-1.7 ng/dL] 1.11 ng/dL (06/19/24 2:59 PM) TSH [0.47-4.68 uIU/mL] 2.01 uIU/mL 1 (06/19/24 2:59 PM) Free T3 [2.0-4.4 pg/mL] 2.3 pg/mL (06/19/24 2:59 PM) 1Result Comment: Testing Performed By: Dept of Pathology [facility], [address] [facility] [place] [address] Vital Signs Most recent to oldest [Reference Range]: 1 Patient Weight 94 kg (06/19/24 2:24 PM) Heart Rate 106 bpm (06/19/24 2:24 PM) Blood Pressure 104/70mmHg (06/19/24 2:24 PM) BP Location # 1 Right Arm (06/19/24 2:24 PM) Social History Social History Type Response Smoking Status Current every day li ght smoker Sex Female Outpatient Note * DO Jordan Melissa M: PERFORM Event Display: .Outpt Note Authored Date: Chief Complaint Hyperthyroid Dr Paul her nephro sent pt due to lab results, no symptoms History of Present Illness I had the pleasure meeting Tea Dawkins in the endocrine surgery clinic at [facility] today on June 18, 2024.She is a 74-year-old female who was referred to me by her nephrologistDr. Paul within the [facility] physician group. The referral isfor biochemical diagnosis of hyperparathyroidism. The most recent labs I have are from May 13, 2024. This revealed a calcium of 9with a phosphorus of 3.5 and a PTH of 672. Looking through her recordsI founda PTH of 292.2 on August 06, 2023. Her calcium levels have been normal; in November 2023 it was 8.5 andin March2024 it was 8.7. She tells me that she does not recall having a PTH checkedprior to the onein August. Additionally, on renal ultrasound performedin January 2022 she had left-sided kidney stones. Otherwise in terms of symptomatologyshjanel reports some neurocognitive complaints such as short-term memory loss may be some brain fog. Otherwise she does not have any other symptoms of excessive fatigue or myalgias or arthralgias. Her surgical history is notable for gastric [id number] procedure performed in about 2006. I did ask about her calcium and PTH levelsas well as vitamin D levels at about that time but she does not recallif she isever had those labs drawn. Additionally her medical history is noted for chronic kidney disease stage IIIbwith baseline creatinine of 1.8as well as vitamin D deficiency, atrial fibrillation, chronic congestive heart failure, cirrhosis, TIA,B-cell lymphoma for whichalyce is in remission. With respect to family history she has no family history of hypercalcemiaor kidney stones. She is reported no personal history of head or neck radiation. Review of Systems 14 point review of systems is negative except as stated above. Physical Exam Vitals & Measurements HR:106(Monitored) BP:104/70 SpO2:98% WT:94kg WT:94.000kg(Dosing) On physical exam she is well-appearing. Her sclera anicteric and mucous membranes are moist. Skin over the anterior neck is smooth. Thyroid is nonpalpable. There are no palpable lymph nodes in the cervical chains bilaterally. Neck ultrasonography was done in the office today. This revealed the thyroid to be overall normal in size with fineechogenicity.She had a subcentimeter thyroid nodule on the left that was complex.Otherwise there were no lesions to suggest parathyroid adenoma. She had benign-appearing lymph nodes in cervicalneck compartments bilaterally. Assessment/Plan Hyperparathyroidism It is my impression that Tea Dawkins is a 74-year-old female with biochemical diagnosis of hyperparathyroidism. I do think this is likely secondaryto her Ngoc-en-Y gastric bypass procedure given the normal calciumsthat she has had even when her PTH was around 300 and now around 670. We discussed that surgery for secondary hyperparathyroidism involves 3 or 3-1/2 gland parathyroidectomy. I think this will be problematic for Mrs. Dawkins given the gastric bypass procedure. The Ngoc-en-Y bypass is amalabsorptive procedureand in performing that degree of parathyroidectomy she will most certainlyhave symptomatic hypocalcemia. Supplementation in patients with Ngoc-en-Y gastric bypassgiven their abnormal anatomy is problematic and she will likelynot be able to absorb a significant amount of supplemental calcium +/- vitaminD as the duodenum is bypassed. Thesymptoms from hypocalcemia can be far worse than what she is experiencing currently. Therefore I do not currently recommend aparathyroidectomy for her. Certainly if her PTH risesinto the level of the thousands we could reconsider;I think at this timethe risks of the surgeryparticularlythe postop hypocalcemia far outweigh the benefit. Problem List/Past Medical History Ongoing Abdominal pain Atrial Fibrillation Atrial fibrillation Brain TIA C. difficile diarrhea Cirrhosis Depression Diarrhea Dilated bile duct GERD Heart failure Hematuria Hyperlipidemia Hypertension Left hip pain Low back pain LUQ pain Mesenteric mass Metabolic syndrome HOFFMAN (nonalcoholic steatohepatitis) Pancreatic cyst Pre-op exam Recurrent pancreatitis Skin cancer Sleep apnea Small bowel obstruction Tobacco user Trochanteric bursitis, left hip Ventral hernia Weight disorder Procedure/Surgical History CT of abdomen and pelvis| Service Date: 10/12/2018Upper GI endoscopy| Service Date: 06/25/2018MRCP - Magnetic resonance cholangiopancreatography| Service Date: 03/25/2018Colonoscopy| Service Date: 06/13/2017Upper GI endoscopy| Service Date: 06/13/2017CT of abdomen and pelvis with contrast| Service Date: 03/28/2016Ultrasound-Abdominal| Service Date: 02/10/2016Anesthesia forendoscopy| Service Date: 2015Cholecystectomy| Service Date: 06/15/2015Creation of tube gastrostomy,GOT INFECTION| Service Date: 06/15/2015Colonoscopy| Service Date: 04/11/2015Gastric bypass| Service Date: 2014Hysterectomy and bilateral salpingo-oophorectomy sample| Service Date: 06/01/2014Cardiac albation| Service Date: 2012Tubal ligation| Service Date: 2009 Medications apixaban(Eliquis 5 mg oral tablet), 5 mg= 1 tab, PO, bid aspirin(aspirin 81 mg oral delayed release tablet), 81 mg= 1 tab, PO, Daily atorvastatin(atorvastatin 40 mg oral tablet), 40 mg= 1 tab, PO, Daily bumetanide(bumetanide 2 mg oral tablet), 2 mg= 1 tab, PO, Daily buPROPion(buPROPion 150 mg/24 hours (XL) oral tablet, extended release), 150 mg= 1 tab, PO, Daily cholecalciferol(Vitamin D3), PO, Daily dilTIAZem(DilTIAZem (Eqv-Cardizem CD) 120 mg/24 hours oral capsule, extended release), 120 mg= 1 cap, PO, Daily folic acid furosemide(Lasix 40 mg oral tablet), 40 mg= 1 tab, PO, bid, 11 refills magnesium sulfate pantoprazole(pantoprazole 40 mg oral delayed release tablet), 40 mg= 1 tab, PO, bid spironolactone(spironolactone 25 mg oral tablet), 12.5 mg= 0.5 tab, PO, Daily Allergies NKA Social History Smoking Status Current every day light smoker Family History Heart disease: Unknown. Hypertension: Unknown. Pancreatic cancer..: Mother. Health Status Family Member(s) Immunizations Vaccine Date Status influenza virus vaccine, inactivated 09/13/2016 Given Comments : Other : Recommendations Health Maintenance Pending(in the next year) Due Adult Influenza Vaccine due05/31/24and every 1year Adult COVID-19 Vaccination due06/21/24Unknown Frequency Adult Social Determinants of Health Screening due06/21/24Unknown Frequency Adult Tdap/Td Vaccine due06/21/24Unknown Frequency Breast Cancer Screening due06/21/24Unknown Frequency Medicare Annual Wellness Visit due06/21/24and every 1year Osteoporosis Screening due06/21/24One-time only Shingles Vaccine due06/21/24One-time only Due In Future Body Mass Index not due until06/20/25and every Satisfied(in the past 1 year) Satisfied Body Mass Index on10/31/23.Satisfied by FARA Vela Rebecca A Electronic Signature on File CC: Deandre Paul MD [facility] [address] [facility] [id number] * CC: Christopher Guevara MD [address] [place] [phone] * Electronically Reviewed/Signed by: Brie Jordan DO Author Signature Dt/Tm:06/21/2024 01:11 PM Division of General Surgery [facility] Patient Care team information Care Team Personnel Name: MOLLY Su Ann Smith Position: Nurse Pract - Surgery Oncology Member Role: Lifetime Relationship Address: Address: [address] [place] [phone] Name: MD Paola, Christopher Henderson Position: Referring DIRECT Member Role: Primary Care Provider Address: Address: [address] [place] [phone] Name: MD Montano Jay D Position: Physician - Urology Member Role: Lifetime Relationship Address: Address: [address] [place] [phone] Care Team Related Persons Name: JAMILA TEMPLE Address: home No Address Provided SKYLAR HINKLE [phone] Name: MARY JO DAWKINS Address: home [address] [place] [phone]"
[2024-07-30 07:44] LABS: Hematocrit (blood only) 32.9 % (37.0-47.0); Hemoglobin 11.1 g/dl (12.0-16.0); Mean Corpuscular Hgb Conc 33.7 g/dL (32.0-36.0); Mean Corpuscular Volume 100.9 fL (80.0-100.0); Platelet Count 157 K/uL (130-400); RDW Coefficient of Variation 13.7 % (11.5-14.5); RDW Standard Deviation 50.6 fL (36.4-46.3); Red Blood Count 3.26 M/uL (4.20-5.40); White Blood Count 3.42 K/ul (4.8-10.8)
[2024-07-30 08:11] LABS: BUN Creatinine Ratio 34.1 (10-20); Calcium 8.3 mg/dl (8.6-10.3); Creatinine Clr Calc Pharmacy 43.8 ml/min; Est GFR (African American) 47.9 ml/min; Est GFR (Non-African American) 41.3 ml/min; Potassium 4.2 mmol/L (3.5-5.1)
[2024-07-30] MEDS: buPROPion XL 150 MG TABCR PO SCH (08:22)
[2024-07-30] MEDS: FOLIC ACID 1 MG TAB PO SCH (08:22)
[2024-07-30] MEDS: FERROUS SULFATE 325 MG TAB PO SCH (08:22)
--- NOTE | 2024-07-30 10:17 | Gastroenterology Progress Note ---
Date of Service July 30, 2024 Assessment & Plan (1) Upper GI bleed: Plan: Patient is a 74 year old female here with a few day history of dark stools. hgb slightly lower today. she is on eliquis as an outpatient for a fib with last dose this 07/29. - continue with protonix drip at this time. - monitor hgb/hct and transfuse as needed. - will plan for EGD to further evaluate but given that she appears stable at this time, will need to wait since she has been on eliquis. last dose was in AM 07/29. Will plan to proceed with EGD Tuesday 07/31. Admission and Anticipated Discharge Date Admission Date: July 29, 2024 Supervising Physician Co-Signing Physician Notes I saw and examined this patient with our nurse practitioner and agree with her assessment and plan. Clinically stable no overt bleeding. Hemoglobin stable. Will plan for endoscopy in a.m. Continue IV Protonix. Subjective Patient tells me no further episodes of dark stool since admission. rest of GI ros unremarkable. she questions advance in diet. 07/30/24 hgb 11.1. (previously 11.6) Review of Systems Review of Systems: All systems reviewed & are unremarkable except as noted in HPI & below Physical Exam Constitutional: WD/WN, vitals as above Respiratory: normal respiratory effort, lungs clear to auscultation Cardiovascular: Rate/Rhythm: regular rate and regular rhythm Gastrointestinal (Abdomen): normal bowel sounds, soft, nontender, no hepatosplenomegaly Psychiatric: Orientation: alert and oriented x 3 Affect: euthymic affect Results & Data Results & Data Vital Signs (Past 12 Hours) Vital Signs Temp Pulse Pulse Resp BP BP Pulse Ox 07/30/24 07:22 97.7 F 78 20 113/75 95 07/30/24 03:10 98.1 F 88 16 91/51 L 94 07/29/24 22:41 111 H O2 Del Method 07/30/24 07:22 Room Air 07/30/24 03:10 Room Air 07/29/24 22:41 Laboratory Results Laboratory Results - last 48 hr 07/29/24 07/29/24 07/29/24 12:25 12:27 16:25 WBC 4.58 L RBC 3.71 L Hgb 12.6 11.3 L Hct 38.2 34.3 L MCV 103.0 H MCH 34.0 MCHC 33.0 RDW Std Deviation 51.7 H RDW Coeff of Rodrigo 13.8 Plt Count 175 MPV 9.1 L PT 11.2 INR 1.0 APTT 26 PTT Ratio 1.0 Sodium 139 Potassium 4.0 Chloride 106 Carbon Dioxide 24 Anion Gap 9 BUN 52 H Creatinine 1.41 H Est Cr Clr Drug Dosing 40.0 Est GFR ( Amer) 43.0 Est GFR (Non-Af Amer) 37.1 BUN/Creatinine Ratio 36.9 H Glucose 206 H Calcium 8.7 Total Bilirubin 0.7 AST 16 ALT 13 Alkaline Phosphatase 89 Troponin I High Sens 5.7 Total Protein 6.2 Albumin 3.9 Globulin 2.3 L Albumin/Globulin Ratio 1.7 POC Stool Occult Blood Blood Type A Positive Antibody Screen NEGATIVE Crossmatch See Detail 07/29/24 07/29/24 07/30/24 19:01 20:45 07:30 WBC 3.42 L RBC 3.26 L Hgb 11.6 L 11.1 L Hct 35.3 L 32.9 L MCV 100.9 H MCH 34.0 MCHC 33.7 RDW Std Deviation 50.6 H RDW Coeff of Rodrigo 13.7 Plt Count 157 MPV 9.0 L PT INR APTT PTT Ratio Sodium 142 Potassium 4.2 Chloride 108 H Carbon Dioxide 30 Anion Gap 4 BUN 44 H Creatinine 1.29 H Est Cr Clr Drug Dosing 43.8 Est GFR ( Amer) 47.9 Est GFR (Non-Af Amer) 41.3 BUN/Creatinine Ratio 34.1 H Glucose 127 H Calcium 8.3 L Total Bilirubin AST ALT Alkaline Phosphatase Troponin I High Sens Total Protein Albumin Globulin Albumin/Globulin Ratio POC Stool Occult Blood Positive A Blood Type Antibody Screen Crossmatch Coding Level of Care Code 31458 SUB INP/OBS CARE 12/26MIN Diagnoses Upper GI bleed K92.2
[2024-07-30] MEDS: ATORVASTATIN 40 MG TAB PO SCH (10:41)
--- NOTE | 2024-07-30 12:42 | Hospitalist Progress Note ---
Date of Service July 30, 2024 Assessment & Plan (1) Upper GI bleed: Plan: Patient was asked to come to the hospital by her PCP on account of the fact that his stools. Positive Hemoccult stool in the emergency department Denies history of heartburn of constant use of NSAIDs also denies excessive use of alcohol Hx of gastric bypass Hemoglobin stable on arrival Protonix IV bolus + drip GI consulted, plan is for EGD tomorrow (2) Atrial fibrillation with RVR: Plan: Patient in A-fib with RVR on arrival Metoprolol 5 mg IV q6h as needed for HR > 140bpm Continue home metoprolol Continuous telemetry monitoring on PCU Hold Eliquis in the setting of acute GI bleed (3) (HFpEF) heart failure with preserved ejection fraction: Plan: Last echocardiogram on LVEF at 60 to 65% with severe biatrial dilation Daily weights Strict I&O monitoring Hold Lasix and spironolactone for now (4) CKD (chronic kidney disease), stage III: Plan: Avoid nephrotoxic agents for possible Plan Disposition: Admit to PCU telemetry Full code N.p.o. then advance to VTE PPx: Hold Eliquis/aspirin; SCDs Admission and Anticipated Discharge Date Admission Date: July 29, 2024 Subjective Patient seen and examined, no further stools while in the hospital, no abdominal pain. Review of Systems Review of Systems: All systems reviewed are negative, apart from the ones contained in the history. Physical Exam Physical Exam: The patient is awake, alert and oriented 3, well developed and well nourished, normocephalic and atraumatic, lying in bed and in no acute distress. HEENT--PERRL, EOMI, mucous membranes and oropharynx mildly dry Neck--supple. No JVD. No bruits. Thyroid normal, trachea midline, no adenopathy. Heart--normal S1 and S2. No murmurs, rubs or gallops. Lungs--clear bilaterally, no respiratory distress, no accessory muscle use. Abdomen--normal bowel sounds and soft. Extremities--no cyanosis or clubbing. No edema. Dermatologic--normal skin turgor, normal color, no abnormal lymph nodes, no rash. Neurologic--cranial nerves II through XII grossly intact. Rheumatologic--normal range of motion. Psychiatric--normal affect. Results & Data Results & Data Vital Signs (Past 12 Hours) Vital Signs Temp Pulse Resp BP BP Pulse Ox O2 Del Method 07/30/24 11:31 97.5 F L 87 19 116/80 96 Room Air 07/30/24 07:22 97.7 F 78 20 113/75 95 Room Air 07/30/24 03:10 98.1 F 88 16 91/51 L 94 Room Air PG Care Time/CCT Total # of Minutes Spent Total Time Spent with Patient: Total time spent is greater than 50% in coordination of care (as documented) at patient's floor/unit and/or counseling patient: Coding Level of Care Code 03627 SUB INP/OBS CARE 2/35MIN Diagnoses Upper GI bleed K92.2 Atrial fibrillation with RVR I48.91 (HFpEF) heart failure with preserved ejection fraction I50.30 Stage 3a chronic kidney disease N18.31 Chronic kidney disease stage 3 subtype: stage 3a (GFR 45-59) Time Spent (min) 35 (4) CKD (chronic kidney disease), stage III Chronic kidney disease stage 3 subtype: stage 3a (GFR 45-59) Qualified Code(s): N18.31 - Chronic kidney disease, stage 3a
[2024-07-31] MEDS ORDERED: HEPARIN 100 UNIT/ML 5ML FLUSH FLUSH PRN (04:08)
[2024-07-31 07:33] LABS: Hematocrit (blood only) 33.1 % (37.0-47.0); Hemoglobin 11.1 g/dl (12.0-16.0); Mean Corpuscular Hemoglobin 34.2 pg (25.0-34.0); Mean Corpuscular Hgb Conc 33.5 g/dL (32.0-36.0); Mean Corpuscular Volume 101.8 fL (80.0-100.0); Platelet Count 149 K/uL (130-400); RDW Coefficient of Variation 13.7 % (11.5-14.5); RDW Standard Deviation 50.5 fL (36.4-46.3); Red Blood Count 3.25 M/uL (4.20-5.40); White Blood Count 4.23 K/ul (4.8-10.8)
[2024-07-31] MEDS: ONDANSETRON INJ 2 MG/ML 2 ML VIAL IV PRN (09:03)
--- NOTE | 2024-07-31 10:08 | History & Physical Bridge Note ---
Date of Service July 31, 2024 History & Physical Bridge Note I have examined the patient, reviewed the History & Physical and in the interval since the performance of the History & Physical I have noted the following changes of clinical significance: no changes noted. hgb stable at 11.1 today, but she reports that she did have 3 dark bowel movements overnight. she is also having nausea and epigastric discomfort. no chest pain or sob. she has been NPO since midnight. - plan for EGD today to further evaluate. Supervising Physician Co-Signing Physician Notes I saw and examined this patient with our nurse practitioner and agree with her assessment and plan. Will proceed with endoscopy to further evaluate cause of upper GI bleeding.
--- NOTE | 2024-07-31 10:21 | Anesthesiology Consultation ---
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 Al Melendez MD Height/Weight Height: 5 ft 3 in Weight: 94.3 kg Allergies Allergy/AdvReac Type Severity Reaction Status Date / Time No Known Allergies Allergy Verified 06/02/24 10:12 Medications Home Medications Medication Instructions Recorded Confirmed Last Taken aspirin 81 mg tablet,delayed 81 mg PO QAM #30 tabs 07/30/23 07/29/24 01/09/24 release folic acid 1 mg tablet 1 mg PO QAM 07/31/23 07/29/24 12/05/23 cyanocobalamin (vitamin B-12) 1,000 mcg IM .COMPLEX PRN B12 08/13/23 07/29/24 11/20/23 1,000 mcg/mL injection solution Deficiency #4 mL magnesium 1 dose PO HS 09/10/23 07/29/24 12/05/23 pantoprazole 20 mg tablet,delayed 20 mg PO BID #180 tabs 12/16/23 07/29/24 01/17/24 05:00 release oxycodone 5 mg tablet 5 mg PO Q6H PRN pain #5 tabs 01/17/24 07/29/24 Unknown ferrous sulfate 325 mg (65 mg 325 mg PO DAILY 02/19/24 07/29/24 Unknown iron) tablet (FeroSul) cholecalciferol (vitamin D3) 25 2,000 unit PO DAILY 03/16/24 07/29/24 Unknown mcg (1,000 unit) capsule (Vitamin D3) apixaban 5 mg tablet (Eliquis) 5 mg PO BID #180 tabs 03/18/24 07/29/24 Unknown bupropion HCl 150 mg 24 hr tablet, 150 mg PO QAM #90 tabs 03/24/24 07/29/24 Unknown extended release metoprolol tartrate 50 mg tablet 50 mg PO BID #180 tabs 03/24/24 07/29/24 Unknown spironolactone 25 mg tablet 12.5 mg (1/2 x 25 mg) PO QAM #45 03/31/24 07/29/24 Unknown (Aldactone) tabs atorvastatin 40 mg tablet 40 mg PO QAM 07/29/24 07/29/24 Unknown bumetanide 2 mg tablet 2 mg PO UD 07/29/24 07/29/24 Unknown Active Medications Generic Name Dose Route Start Last Admin Trade Name Freq PRN Reason Stop Dose Admin Bupropion HCl 150 mg 07/30/24 09:00 07/31/24 08:02 Bupropion Xl 150 Mg Tabcr PO 08/29/24 08:59 150 mg QAM JESSIE Administration Ferrous Sulfate 325 mg 07/30/24 09:00 07/31/24 08:02 Ferrous Sulfate 325 Mg Tab PO 08/29/24 08:59 325 mg DAILY JESSIE Administration Folic Acid 1 mg 07/30/24 09:00 07/31/24 08:01 Folic Acid 1 Mg Tab PO 08/29/24 08:59 1 mg QAM JESSIE Administration Pantoprazole Sodium 40 mg/ 100 mls @ 20 mls/hr 07/29/24 13:00 07/31/24 10:02 Dextrose IV 08/28/24 12:59 8 mg/hr Q5H JESSIE 20 mls/hr Administration 8 MG/HR Metoprolol Tartrate 50 mg 07/29/24 21:00 07/31/24 08:02 Metoprolol Tartrate 50 Mg Tab PO 08/28/24 20:59 Not Given BID JESSIE Ondansetron HCl 4 mg 07/29/24 16:29 07/31/24 09:03 Ondansetron Inj 2 Mg/Ml 2 Ml Vial IV 08/28/24 16:28 4 mg Q6H PRN Administration Nausea Past Medical History Medical History Nausea Non-Hodgkin lymphoma in remission Neutropenia Pancytopenia 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 Brewer > med controlled Mesenteric mass recent PET scan --- RECENT B CELL LYMPHOMA CONFIRMED, growth has recently stopped due to chemo Depression Chronic pain of inguinal region Anticoagulant long-term use Dissection of vertebral artery pt unsure/unaware GERD (gastroesophageal reflux disease) Hypertension Past Family History Family History Grandmother Diabetes Hypertension Mother Heart disease Hypertension Grandfather Stomach cancer Hypertension Father , early 80s of pancreatic cancer Pancreatic cancer Hypertension Other No family history of adverse response to anesthesia Denies family history of Ovarian cancer Breast cancer Colorectal cancer Past Surgical History Surgical History Port-A-Cath in place (12/10/22) Access port placement and use of fluoroscopy. Dr. Leger History of bowel resection WITH COLOSTOMY R/T SBO > colostomy reversed Hx of lymph node biopsy groin area History of bone marrow biopsy S/P ureteral stent placement History of cystoscopy History of tubal ligation History of umbilical hernia repair History of colostomy reversal History of esophagogastroduodenoscopy (EGD) History of colonoscopy (05/2022) History of cardiac radiofrequency ablation D/T AFIB - PT REPORTS HAD 1 BUT MAYBE 2 - NOT SURE DATES ([place]) History of cardioversion multiple History of gastric bypass Hx of laparoscopy Hx of abdominal surgery FOR REMOVAL OF CYST - PT NOT SURE TYPE History of colostomy r/t bowel blockage H/O: hysterectomy Hx of removal of cyst (11/14/23) FINAL DIAGNOSIS In office procedure Dr. Hernandez Skin, left flank mass, excision: - Epidermal inclusion cyst Hx of cholecystectomy Social History Smoking Status: Former smoker tobacco type: cigarettes Do You Dip or Chew Tobacco: No Hx Alcohol Use: No alcohol intake frequency: a few times a week Hx Substance Use: No substance use type: does not use Substance Use Type Other:: last use was 40 years ago Last Used Substance Other:: years ago Physical Exam Vital Signs Last Vital Signs Temp 36.4 C L 07/31/24 07:42 Pulse 91 H 07/31/24 07:42 Resp 18 07/31/24 07:42 BP 95/63 L 07/31/24 07:42 Pulse Ox 95 07/31/24 07:42 O2 Del Method Room Air 07/31/24 07:42 Testing Laboratory Results 07/31/24 06:53 07/30/24 07:30 PT 11.2 Seconds (9.0-12.0) 07/29/24 12:25 INR 1.0 (0.9-1.1) 07/29/24 12: APTT 26 Seconds (21-31) 07/29/24 12:25 Blood Type A Positive 07/29/24 12:27 Antibody Screen NEGATIVE 07/29/24 12:27 Electrocardiogram Date: 07/29/24 AF with RVR @ 121 Chest X-Ray Date: 03/13/24 TECHNIQUE: AP view of the chest FINDINGS: Cardiac silhouette is enlarged. Right subclavian Eognvp-g-Osch catheter distal tip noted within the expected location of the mid SVC. No pneumothorax, large pleural effusion, airspace consolidation or overt pulmonary edema. IMPRESSION: Cardiomegaly without acute process. Echocardiogram Date: 07/28/23 EF: 60-65 LV Function: normal RWMA: + none Other Findings: + atrial enlargement (severe bilaterally) and + LVH (mod) AF rhythm
--- NOTE | 2024-07-31 11:00 | Hospitalist Progress Note ---
Date of Service July 31, 2024 Assessment & Plan (1) Upper GI bleed: Plan: Patient was asked to come to the hospital by her PCP on account of the fact that his stools. Positive Hemoccult stool in the emergency department Denies history of heartburn of constant use of NSAIDs also denies excessive use of alcohol Hx of gastric bypass Hemoglobin stable on arrival Protonix IV bolus + drip GI consulted, plan is for EGD today (2) Atrial fibrillation with RVR: Plan: Patient in A-fib with RVR on arrival Metoprolol 5 mg IV q6h as needed for HR > 140bpm Continue home metoprolol Continuous telemetry monitoring on PCU Hold Eliquis in the setting of acute GI bleed (3) (HFpEF) heart failure with preserved ejection fraction: Plan: Last echocardiogram on LVEF at 60 to 65% with severe biatrial dilation Daily weights Strict I&O monitoring Hold Lasix and spironolactone for now (4) CKD (chronic kidney disease), stage III: Plan: Avoid nephrotoxic agents for possible Plan Disposition: Admit to PCU telemetry Full code N.p.o. then advance to VTE PPx: Hold Eliquis/aspirin; SCDs Admission and Anticipated Discharge Date Admission Date: July 29, 2024 Subjective Plan is for EGD today Review of Systems Review of Systems: All systems reviewed are negative, apart from the ones contained in the history. Physical Exam Physical Exam: The patient is awake, alert and oriented 3, well developed and well nourished, normocephalic and atraumatic, lying in bed and in no acute distress. HEENT--PERRL, EOMI, mucous membranes and oropharynx mildly dry Neck--supple. No JVD. No bruits. Thyroid normal, trachea midline, no adenopathy. Heart--normal S1 and S2. No murmurs, rubs or gallops. Lungs--clear bilaterally, no respiratory distress, no accessory muscle use. Abdomen--normal bowel sounds and soft. Extremities--no cyanosis or clubbing. No edema. Dermatologic--normal skin turgor, normal color, no abnormal lymph nodes, no rash. Neurologic--cranial nerves II through XII grossly intact. Rheumatologic--normal range of motion. Psychiatric--normal affect. Results & Data Results & Data Vital Signs (Past 12 Hours) Vital Signs Temp Pulse Resp BP BP Pulse Ox O2 Del Method 07/31/24 10:54 97.7 F 95 H 18 110/72 93 Room Air 07/31/24 07:42 97.5 F L 91 H 18 95/63 L 95 Room Air 07/31/24 03:22 97.7 F 93 H 17 103/71 96 Room Air 07/30/24 23:28 98.2 F 100 H 17 111/76 96 Room Air PG Care Time/CCT Total # of Minutes Spent Total Time Spent with Patient: Total time spent is greater than 50% in coordination of care (as documented) at patient's floor/unit and/or counseling patient: Coding Level of Care Code 87571 SUB INP/OBS CARE 2/35MIN Diagnoses Upper GI bleed K92.2 Atrial fibrillation with RVR I48.91 (HFpEF) heart failure with preserved ejection fraction I50.30 Stage 3a chronic kidney disease N18.31 Chronic kidney disease stage 3 subtype: stage 3a (GFR 45-59) Time Spent (min) 35 (4) CKD (chronic kidney disease), stage III Chronic kidney disease stage 3 subtype: stage 3a (GFR 45-59) Qualified Code(s): N18.31 - Chronic kidney disease, stage 3a
--- NOTE | 2024-07-31 13:33 | GI REPORT ---
[facility] Patient: GUSTABO MCKEON : 1950 Sex at : Female Age: 74 Years Procedure: Upper GI endoscopy Date: 07/31/2024 Attending Physician: Justin Melendez MD Referring MD: Jesse Fu MD Indications: - Active gastrointestinal bleeding Medications: - Monitored Anesthesia Care Complications: - No immediate complications. Estimated Blood Loss: - Estimated blood loss was minimal. Procedure: - Prior to the procedure, a History and Physical was performed, and patient medications and allergies were reviewed. The patient's tolerance of previous anesthesia was also reviewed. The risks and benefits of the procedure and the sedation options and risks were discussed with the patient. All questions were answered, and informed consent was obtained. [Anticoagulant Agents] [Days Prior to Procedure]. [ASA Grade]. After reviewing the risks and benefits, the patient was deemed in satisfactory condition to undergo the procedure. - The egd scope was introduced through the mouth and advanced to the second part of the duodenum. - The upper GI endoscopy was accomplished without difficulty. - The patient tolerated the procedure well. Findings: - The examined esophagus was normal. - Evidence of a gastric bypass was found. A gastric pouch with a medium size was found. [Staple Line]. The gastrojejunal anastomosis was characterized by friable mucosa and healthy appearing mucosa. [Traversed]. The qcbox-ib-pchxxup limb [Pouch to Jejunum Length ] [Ifmew-yz-Pjybizr Description]. [Jejunojejunal Description]. [Rafa-kc-Tljgfiw Examined?] [Gnbo-xm-Lcmbsap Length] [Vzaa-ck-Wzaynob Description]. The excluded stomach [Excluded Stomach Examined?] and was characterized by [Excluded Stomach Description]. Biopsies were taken with a cold forceps for histology. The bleeding occurred after biopsies treated with 3 endoclips with control of bleeding - The examined jejunum was normal. Impression: - Normal esophagus. - Gastric bypass with a medium-sized pouch. Gastrojejunal anastomosis characterized by friable mucosa and healthy appearing mucosa. Biopsied. 3 endoclips placed postbiopsy. - Normal examined jejunum. Recommendation: - Resume previous diet. - Patient has a contact number available for emergencies. The signs and symptoms of potential delayed complications were discussed with the patient. Return to normal activities tomorrow. Written discharge instructions were provided to the patient. Procedure Code(s): - 27668, Esophagogastroduodenoscopy, flexible, transoral; with biopsy, single or multiple Diagnosis Code(s): - K92.2, Gastrointestinal hemorrhage, unspecified - Z98.84, Bariatric surgery status CPT(R) - 2023 copyright [employer]. All Rights Reserved. The CPT codes, CCI edits and ICD codes generated are intended as suggestions and were generated based on input data. These codes are preliminary and upon him coder review may be revised to meet current compliance and payer requirements. The provider is responsible for the final determination of appropriate codes, and modifiers. Justin Melendez MD This document has been electronically signed. Note Initiated:07/31/2024 Note Completed:07/31/2024 1:32 PM \\[email or web address]\Provation\Results\[email or web address]\[id number]
[2024-07-31] MEDS: LIDOCAINE 2% 2 ML VIAL/AMP(20MG/ML) INFIL ONE (14:24)
[2024-07-31] MEDS: SODIUM CHLORIDE 0.9% 500 ML IV SCH (14:24)
[2024-07-31] MEDS: PHENYLEPHRINE 100MCG/ML 10ML SYR IV ONE (14:25)
[2024-07-31] MEDS: PROPOFOL IV EMULSION 10 MG/ML 20 ML VIAL IV ONE (14:25)
--- NOTE | 2024-07-31 14:41 | Anesthesiology Progress Note ---
Date of Service July 31, 2024 Anesthesia Post Procedure Vital Signs Vital Signs: Temp Pulse Pulse Pulse Resp BP BP 07/31/24 14:00 109 H 17 129/98 07/31/24 13:45 93 H 17 114/95 07/31/24 13:31 100 H 21 98/54 L 07/31/24 12:47 36.5 C 91 H 18 136/80 07/31/24 10:54 36.5 C 95 H 18 110/72 07/31/24 08:00 99 H 07/31/24 07:42 36.4 C L 91 H 18 95/63 L 07/31/24 03:22 36.5 C 93 H 17 103/71 07/30/24 23:28 36.8 C 100 H 17 111/76 07/30/24 19:34 36.6 C 87 19 125/81 07/30/24 15:12 36.3 C L 88 18 113/79 Pulse Ox O2 Del Method 07/31/24 14:00 97 Room Air 07/31/24 13:45 97 Room Air 07/31/24 13:31 97 Room Air 07/31/24 12:47 98 Room Air 07/31/24 10:54 93 Room Air 07/31/24 08:00 07/31/24 07:42 95 Room Air 07/31/24 03:22 96 Room Air 07/30/24 23:28 96 Room Air 07/30/24 19:34 96 Room Air 07/30/24 15:12 96 Room Air Transfer of Care Handoff Completed per policy Notes Mental Status: alert / awake / arousable and participated in evaluation Patient Amnestic to Procedure: Yes Nausea / Vomiting: adequately controlled Pain: adequately controlled Airway Patency, RR, SpO2: stable & adequate BP & HR: stable & adequate Hydration State: stable & adequate Anesthetic Complications: no major complications apparent
--- NOTE | 2024-07-31 21:50 | Electrocardiogram Report ---
Test Reason : Blood Pressure : */* mmHG Vent. Rate : 121 BPM Atrial Rate : * BPM P-R Int : * ms QRS Dur : 86 ms QT Int : 336 ms P-R-T Axes : * -20 11 degrees QTcB Int : 477 ms Poor data quality, interpretation may be adversely affected Atrial fibrillation with rapid ventricular response Nonspecific T wave abnormality Cannot rule out Anterior infarct (cited on or before 13-Mar-2024) Abnormal ECG When compared with ECG of 13-Mar-2024 11:48, Vent. rate has increased by 52 bpm Criteria for Inferior infarct are no longer Present Confirmed by Leonardo Herr ([id number]) on 07/31/2024 9:50:05 PM Referred By: REFERRED SELF Confirmed By: Leonardo Herr
[2024-08-01 06:03] LABS: Hematocrit (blood only) 33.7 % (37.0-47.0); Hemoglobin 11.1 g/dl (12.0-16.0); Mean Corpuscular Hemoglobin 33.8 pg (25.0-34.0); Mean Corpuscular Hgb Conc 32.9 g/dL (32.0-36.0); Mean Corpuscular Volume 102.7 fL (80.0-100.0); Mean Platelet Volume 9.3 fL (9.4-12.4); Platelet Count 156 K/uL (130-400); RDW Coefficient of Variation 13.5 % (11.5-14.5); RDW Standard Deviation 50.6 fL (36.4-46.3); Red Blood Count 3.28 M/uL (4.20-5.40); White Blood Count 4.06 K/ul (4.8-10.8)
[2024-08-01 07:35] VITALS: BP 101/69; RESP 18; TEMP 97.5; O2SAT 95
--- NOTE | 2024-08-01 09:48 | Gastroenterology Progress Note ---
Date of Service August 01, 2024 Assessment & Plan (1) Acute GI bleeding: Plan: Clinically resolved hemoglobin stable. Endoscopy nondiagnostic however status post gastric bypass with friable mucosa at anastomosis requiring endoscopic clipping after biopsies suggest that this could be an area of chronic blood loss possibly aggravated by her anticoagulation. Okay for discharge today recommend that she follow-up in our office with Dr. Foster. Will send her home on a daily dose of a proton pump inhibitor. Admission and Anticipated Discharge Date Admission Date: July 29, 2024 Subjective Feels well no complaints denies abdominal pain shortness of breath or chest pain no evidence of overt GI bleeding Physical Exam Physical Exam: Eyes; anicteric HENT No masses Chest clear to A Cor S1, S2 physiologic Abd: softer nontender no masses Ext no edema Results & Data Results & Data Vital Signs (Past 12 Hours) Vital Signs Temp Pulse Pulse Pulse Resp BP BP 08/01/24 08:20 104 H 08/01/24 07:35 36.4 C L 75 18 101/69 08/01/24 03:00 36.7 C 96 H 17 95/63 L 07/31/24 23:30 88 07/31/24 23:18 36.7 C 81 17 100/63 Pulse Ox O2 Del Method 08/01/24 08:20 08/01/24 07:35 95 Room Air 08/01/24 03:00 94 Room Air 07/31/24 23:30 07/31/24 23:18 96 Room Air Laboratory Results Laboratory Results - last 48 hr 07/31/24 08/01/24 06:53 05:05 WBC 4.23 L 4.06 L RBC 3.25 L 3.28 L Hgb 11.1 L 11.1 L Hct 33.1 L 33.7 L MCV 101.8 H 102.7 H MCH 34.2 H 33.8 MCHC 33.5 32.9 RDW Std Deviation 50.5 H 50.6 H RDW Coeff of Rodrigo 13.7 13.5 Plt Count 149 156 MPV 9.0 L 9.3 L PG Care Time/CCT Total # of Minutes Spent Total Time Spent with Patient: Total time spent is greater than 50% in coordination of care (as documented) at patient's floor/unit and/or counseling patient: Coding Level of Care Code 23335 SUB INP/OBS CARE 2/35MIN Diagnoses Acute GI bleeding K92.2
--- NOTE | 2024-08-01 10:43 | Discharge Summary ---
Date of Service August 01, 2024 Admission HPI Per Admitting Provider Tea is a 74-year-old female with PMH of HFpEF, prediabetes, carcinoid tumor, CKD stage III, cirrhosis, sleep apnea, non-Hodgkin's lymphoma, B-cell lymphoma atrial fibrillation (on Eliquis), TIA, and hyperparathyroidism. She presented on 07/29 at the behest of her PCP for dark stools x 3 days. No prior history of GI bleeds. She reports her stool has been a consistency that is both formed at times and diarrhea at times. She also notes mucus in her stool x 1 week. Occasionally, she will note bright red blood in her stool with melena. Patient took her regular morning medications today. Patient takes aspirin for history of heart failure and preventative prophylaxis; no history of stents. She did recently finish a course of ciprofloxacin for UTI. No other recent change in medications. She denies any recent Pepto-Bismol or NSAID use. She does have history of a colonoscopy within the past year. History of multiple abdominal surgeries; gastric bypass in 2007, cyst removal, and hernia repair with mesh. Patient denies smoking, tobacco use, recent alcohol use. Patient is tachycardic at 119 bpm at time of admission; vitals otherwise stable. ED course: Pantoprazole IV bolus + drip Lopressor 2.5 mg IV NSS 750 mL IV ROS: Patient endorses occasional intermittent chest palpitations, abdominal pain (not new; chronic), and melena/black tarry stool with occasional BRB in stool. Patient denies fever, chills, night-sweats, dizziness, lightheadedness, GOOD, chest pain, SOB, nausea, vomiting, burning with urination (recently resolved), or blood in the urine. Admission Exam (Per Admitting) Constitutional The patient is awake, alert and oriented 3, well developed and well nourished, normocephalic and atraumatic, lying in bed and in no acute distress. HEENT--PERRL, EOMI, mucous membranes and oropharynx mildly dry Neck--supple. No JVD. No bruits. Thyroid normal, trachea midline, no adenopathy. Heart--normal S1 and S2. No murmurs, rubs or gallops. Lungs--clear bilaterally, no respiratory distress, no accessory muscle use. Abdomen--normal bowel sounds and soft. Extremities--no cyanosis or clubbing. No edema. Dermatologic--normal skin turgor, normal color, no abnormal lymph nodes, no rash. Neurologic--cranial nerves II through XII grossly intact. Rheumatologic--normal range of motion. Psychiatric--normal affect. Discharge Data Consultations 07/29/24 13:13 ED Decision to Admit Stat 07/29/24 16:29 Consult Gastroenterology Routine Procedures Performed Operation Date: 07/31/24 16:30 Actual Procedures p EGD Biopsy Cytology - Justin Melendez MD Hospital Course (1) Upper GI bleed: Patient was asked to come to the hospital by her PCP on account of the fact that his stools. Positive Hemoccult stool in the emergency department Denies history of heartburn of constant use of NSAIDs also denies excessive use of alcohol Hx of gastric bypass Hemoglobin stable on arrival s/p EGD which did not show any active bleed, biopsies taken Discharge home on PO Protonix 40mg daily for 30 days (2) Atrial fibrillation with RVR: Patient in A-fib with RVR on arrival Metoprolol 5 mg IV q6h as needed for HR > 140bpm Continue home metoprolol Continuous telemetry monitoring on PCU Hold Eliquis in the setting of acute GI bleed (3) (HFpEF) heart failure with preserved ejection fraction: Last echocardiogram on LVEF at 60 to 65% with severe biatrial dilation Daily weights Strict I&O monitoring Hold Lasix and spironolactone for now (4) CKD (chronic kidney disease), stage III: Avoid nephrotoxic agents for possible Plan Disposition: Admit to PCU telemetry Full code N.p.o. then advance to VTE PPx: Hold Eliquis/aspirin; SCDs Coding Level of Care Code 83950 INP/OBS DISCH >30 MIN Diagnoses Upper GI bleed K92.2 Atrial fibrillation with RVR I48.91 (HFpEF) heart failure with preserved ejection fraction I50.30 Stage 3a chronic kidney disease N18.31 Chronic kidney disease stage 3 subtype: stage 3a (GFR 45-59) Time Spent (min) 35
[2024-08-01 10:56] VITALS: PULSE 96
== END 2024-08-01 11:15 | disposition home or self-care (01) | DRG 378 ==
LOC: ED 12:01 → EDINP 14:24 → SUATTDRO 14:24 → EDINP 16:30 → 4W 22:21

== ENCOUNTER 2024-09-14 10:11 | Inpatient (IN) ==
[2024-09-14 11:42] LABS: Basophils # (auto) 0.02 K/uL (0.00-0.20); Basophils % (auto) 0.4 %; Eosinophils # (auto) 0.06 K/uL (0.00-0.50); Eosinophils % (auto) 1.1 %; Hematocrit (blood only) 40.9 % (37.0-47.0); Immature Granulocytes # (auto) 0.02 K/uL (0.01-0.20); Immature Granulocytes % (auto) 0.4 %; Lymphocytes # (auto) 0.73 K/uL (1.20-3.40); Lymphocytes % (auto) 13.6 %; Mean Corpuscular Hemoglobin 34.7 pg (25.0-34.0); Mean Corpuscular Hgb Conc 34.2 g/dL (32.0-36.0); Mean Corpuscular Volume 101.2 fL (80.0-100.0); Mean Platelet Volume 9.1 fL (9.4-12.4); Monocytes # (auto) 0.73 K/uL (0.11-0.59); Monocytes % (auto) 13.6 %; Neutrophils # (auto) 3.81 K/uL (1.40-6.50); Neutrophils % (auto) 70.9 %; Platelet Count 213 K/uL (130-400); RDW Coefficient of Variation 13.1 % (11.5-14.5); RDW Standard Deviation 48.8 fL (36.4-46.3); Red Blood Count 4.04 M/uL (4.20-5.40); White Blood Count 5.37 K/ul (4.8-10.8)
--- NOTE | 2024-09-14 11:54 | XRay Report ---
XR chest 1V portable CLINICAL HISTORY: GI bleed TECHNIQUE: Single frontal radiograph of the chest was obtained. Comparison: Comparison is made to chest radiograph 03/13/2024 FINDINGS: Right port catheter is unchanged. The cardiomediastinal silhouette is stable. The lungs are clear. No evidence of pleural effusion or pneumothorax. IMPRESSION: No acute chest disease. Cardiomegaly is noted. ACT 112: Negative or not required by law. Electronically signed by: Isra Wise M.D. 09/14/2024 11:53 AM
[2024-09-14 11:58] LABS: Albumin Globulin Ratio 1.6 (0.9-2); Albumin Level 3.9 gm/dl (3.4-5.0); Bilirubin,Total 0.8 mg/dl (0.2-1.0); Calcium 8.9 mg/dl (8.6-10.3); Creatinine Clr Calc Pharmacy 44.7 ml/min; Globulin 2.5 gm/dl (2.5-4.0); Total Protein 6.4 gm/dl (6.0-8.3)
[2024-09-14 12:09] LABS: INR 1.1 (0.9-1.1); Partial Thromboplastin Ratio 0.9; Partial Thromboplastin Time 25 Seconds (21-31); Prothrombin Time 11.4 Seconds (9.0-12.0)
--- NOTE | 2024-09-14 12:19 | Electrocardiogram Report ---
Test Reason : Blood Pressure : */* mmHG Vent. Rate : 102 BPM Atrial Rate : * BPM P-R Int : * ms QRS Dur : 94 ms QT Int : 370 ms P-R-T Axes : * -19 -8 degrees QTcB Int : 482 ms Atrial fibrillation with rapid ventricular response Low voltage QRS Abnormal ECG When compared with ECG of 29-Jul-2024 12:17, No significant change was found Confirmed by Trace Brewer ([id number]) on 09/14/2024 12:19:01 PM Referred By: Christopher Guevara Confirmed By: Trace Brewer
--- NOTE | 2024-09-14 13:52 | Gastrointestinal Consultation ---
<Statement entered by Adan Benson MD - 09/14/24 13:59> I personally saw and examined the patient. I have reviewed the chart and agree with the documentation provided by the ASSOCIATE EMBALMER/FUNERAL DIRECTOR including discussion about the assessment, treatment and plan. Briefly, 74 year old female with history of HFpEF, prediabetes, carcinoid tumor, CKD-III, cirrhosis, sleep apnea, non- Hodgkin's lymphoma, B-cell lymphoma atrial fibrillation (on Eliquis), TIA, and hyperparathyroidism who presented through the ED w/ reports of black stools x 3 days. Hgb is stable at 14. EGD x 2 and colonoscopy in past 6 months, see below. She has h/o mesenteric mass which was biopsy negative and thought to be incisional hernia. Also with h/o B cell lymphoma. Obscure GIB likely from anastamosis friability in setting of asa and eliquis. Will ask cards and neuro if both anti-coag agents needed. PPI bid for now. If persistent bleeding, can do push enteroscopy in am. Otherwise, suggest an outpt capsule endoscopy with patency capsule. Pt agrees and will f/up. Kelley Date of Consultation September 14, 2024 Assessment & Plan (1) Anemia: 74 year old female with history of HFpEF, prediabetes, carcinoid tumor, CKD-III, cirrhosis, sleep apnea, non-Hodgkin's lymphoma, B-cell lymphoma atrial fibrillation (on Eliquis), TIA, and hyperparathyroidism who presented through the ED w/ reports of black stools x 3 days She is hemodynamically stable w/ stable HGB at 14 without BUN elevation. Suspected she has some oozing related to friable mucosa noted at anastomosis on EGD in July. No urgent indiciation for EGD today. Agree w/ admission for observation Agree w/ CT imaging of abd/pelvis Clear liquid diet today NPO aftermidnight until re-evaluated by GI Increase PPI to twice daily Hold NSAIDs, AC Trend H&H Monitor and document GI output Transfuse PRN per primary service If HGB remains stable overnight, will plan for referral for possible VCE as an OP Continued follow up with your hepatology providers through [facility] I spent a total of 60 minutes on the date of service in review of patient's record, and previously obtained information in person and appropriate medical visit, discussion and education of plan, with patient and/or caregiver, placing orders for tests/referral/procedures as medically necessary and documentation of pertinent clinical information in patient's medical records for their visit today. Thank you for allowing us to participate in the care of this patient. Please call with any acute changes, questions or concerns. Please see addendum below with additional recommendation from my supervising physician. History of Present Illness Reason for Consultation: melena Requesting Physician: Vincent Burgos MD Attending Physician: Vincent Burgos MD History of Present Illness 74 year old female with history of HFpEF, prediabetes, carcinoid tumor, CKD-III, cirrhosis, sleep apnea, non-Hodgkin's lymphoma, B-cell lymphoma atrial fibrillation (on Eliquis), TIA, and hyperparathyroidism who presented through the ED w/ reports of black stool. Daily ASA On eliquis No other NSAIDs No ETOH No tobacco HGB 14 BUN 31 EGD 2023: Normal esophagus. - Gastric bypass with a medium-sized pouch. Gastrojejunal anastomosis characterized by friable mucosa and healthy appearing mucosa. Biopsied. 3 endoclips placed postbiopsy. - Normal examined jejunum. EGD 2023: - Normal esophagus. - Gastric bypass with a normal-sized pouch and intact staple line. Gastrojejunal anastomosis characterized by healthy appearing mucosa. - Normal examined jejunum. - No specimens collected. Colonoscopy 2023: - Diverticulosis in the sigmoid colon. - Non-bleeding internal hemorrhoids. - No specimens collected. Allergies Allergy/AdvReac Type Severity Reaction Status Date / Time No Known Allergies Allergy Verified 09/08/24 13:07 Home Medications Medication Instructions Recorded Confirmed Type aspirin 81 mg tablet,delayed 81 mg PO QAM #30 tabs 07/30/23 09/08/24 Rx release folic acid 1 mg tablet 1 mg PO QAM 07/31/23 09/08/24 History cyanocobalamin (vitamin B-12) 1,000 mcg IM .COMPLEX PRN B12 08/13/23 09/08/24 Rx 1,000 mcg/mL injection solution Deficiency #4 mL magnesium 1 dose PO HS 09/10/23 09/08/24 History oxycodone 5 mg tablet 5 mg PO Q6H PRN pain #5 tabs 01/17/24 09/08/24 Rx ferrous sulfate 325 mg (65 mg 325 mg PO DAILY 02/19/24 09/08/24 History iron) tablet (FeroSul) cholecalciferol (vitamin D3) 25 2,000 unit PO DAILY 03/16/24 09/08/24 History mcg (1,000 unit) capsule (Vitamin D3) apixaban 5 mg tablet (Eliquis) 5 mg PO BID #180 tabs 03/18/24 09/08/24 Rx bupropion HCl 150 mg 24 hr tablet, 150 mg PO QAM #90 tabs 03/24/24 09/08/24 Rx extended release metoprolol tartrate 50 mg tablet 50 mg PO BID #180 tabs 03/24/24 09/08/24 Rx spironolactone 25 mg tablet 12.5 mg (1/2 x 25 mg) PO QAM #45 03/31/24 09/08/24 Rx (Aldactone) tabs atorvastatin 40 mg tablet 40 mg PO QAM 07/29/24 09/08/24 History pantoprazole 40 mg tablet,delayed 40 mg PO DAILY #30 tabs 08/01/24 09/08/24 Rx release (Protonix) bumetanide 2 mg tablet 2 mg PO UD 08/05/24 09/08/24 History amoxicillin 875 mg-potassium 1 tab PO BID 7 days #14 tabs 09/08/24 09/08/24 Rx clavulanate 125 mg tablet Patient History Medical History Nausea Non-Hodgkin lymphoma in remission Neutropenia Pancytopenia Current use of rn long term care anticoagulation Hx of pancreatitis History of anemia History of COVID-19 Sleep apnea Lymphoma Liver 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 Iron deficiency PFO (patent foramen ovale) Abdominal discomfort, epigastric Morbid obesity SOB (shortness of breath) on exertion History of skin cancer Cardiac murmur TIA (transient ischemic attack) Hyperlipemia Fatigue Permanent atrial fibrillation Mesenteric mass Depression Chronic pain of inguinal region Anticoagulant long-term use Dissection of vertebral artery GERD (gastroesophageal reflux disease) Hypertension Surgical History Port-A-Cath in place (12/10/22) History of bowel resection Hx of lymph node biopsy History of bone marrow biopsy S/P ureteral stent placement History of cystoscopy History of tubal ligation History of umbilical hernia repair History of colostomy reversal History of esophagogastroduodenoscopy (EGD) History of colonoscopy (05/2022) History of cardiac radiofrequency ablation History of cardioversion History of gastric bypass Hx of laparoscopy Hx of abdominal surgery History of colostomy H/O: hysterectomy Hx of removal of cyst (11/14/23) Hx of cholecystectomy Family History Grandmother Diabetes Hypertension Mother Heart disease Hypertension Grandfather Stomach cancer Hypertension Father Pancreatic cancer Hypertension Other No family history of adverse response to anesthesia Denies family history of Ovarian cancer Breast cancer Colorectal cancer Social History Smoking Status: Former smoker Tobacco Type: Cigarettes Age Started Using Tobacco: 20; Age Quit Using Tobacco: 42; packs per day: 1; Second Hand Exposure: No; Do You Dip or Chew Tobacco: No; Hx Alcohol Use: No Hx Substance Use: No Preferred Language: Luxembourgish Communication Ability: Effective Visual Impairment: No Limitations Hearing Ability: Normal [employer] French Teacher Required: No Beliefs That Will Affect Care: None marital status: Current Living Situation: Spouse Current Living Situation Comment: home with 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 status: retired 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 Physical Exam Constitutional: WD/WN, vitals as above Respiratory: normal respiratory effort Cardiovascular: Rate/Rhythm: regular rate Gastrointestinal (Abdomen): normal bowel sounds, soft, nontender, no hepatosplenomegaly Skin: no rashes, warm and dry Results & Data Vital Signs (Past 12 Hours) Vital Signs Temp Pulse Pulse Resp BP BP Pulse Ox 09/14/24 13:03 116 H 17 82 L 09/14/24 13:01 125/88 09/14/24 13:01 125/88 09/14/24 12:48 108 H 15 96 09/14/24 12:45 98 H 19 96 09/14/24 12:36 86 19 96 09/14/24 12:21 84 21 92 09/14/24 12:15 97 H 22 96 09/14/24 12:05 119/83 09/14/24 12:05 119/83 09/14/24 12:05 119/83 09/14/24 12:03 96 H 18 96 09/14/24 12:00 118/75 09/14/24 12:00 118/75 09/14/24 12:00 118/75 09/14/24 11:55 115/79 09/14/24 11:55 115/79 09/14/24 11:55 115/79 09/14/24 11:55 115/79 09/14/24 11:51 86 18 116/88 96 09/14/24 11:49 100 H 20 96 09/14/24 11:45 93 H 15 122/83 96 09/14/24 11:44 92 H 20 122/83 95 09/14/24 11:39 85 20 118/85 96 09/14/24 11:30 99 H 20 124/87 97 09/14/24 11:27 91 H 18 144/72 H 97 09/14/24 10:45 94 H 20 97 09/14/24 10:18 36.7 C 113 H 20 149/81 H 99 O2 Del Method 09/14/24 13:03 09/14/24 13:01 09/14/24 13:01 09/14/24 12:48 09/14/24 12:45 09/14/24 12:36 09/14/24 12:21 09/14/24 12:15 09/14/24 12:05 09/14/24 12:05 09/14/24 12:05 09/14/24 12:03 09/14/24 12:00 09/14/24 12:00 09/14/24 12:00 09/14/24 11:55 09/14/24 11:55 09/14/24 11:55 09/14/24 11:55 09/14/24 11:51 09/14/24 11:49 Room Air 09/14/24 11:45 09/14/24 11:44 Room Air 09/14/24 11:39 09/14/24 11:30 09/14/24 11:27 09/14/24 10:45 09/14/24 10:18 Room Air Laboratory Results 09/14/24 09/14/24 Range/Units 11:49 10:55 WBC 5.37 (4.8-10.8) K/ul RBC 4.04 L (4.20-5.40) M/uL Hgb 14.0 (12.0-16.0) g/dl Hct 40.9 (37.0-47.0) % MCV 101.2 H (80.0-100.0) fL MCH 34.7 H (25.0-34.0) pg MCHC 34.2 (32.0-36.0) g/dL RDW Std Deviation 48.8 H (36.4-46.3) fL RDW Coeff of Rodrigo 13.1 (11.5-14.5) % Plt Count 213 (130-400) K/uL MPV 9.1 L (9.4-12.4) fL Immature Gran % (Auto) 0.4 % Neut % (Auto) 70.9 % Lymph % (Auto) 13.6 % [place] % (Auto) 13.6 % Eos % (Auto) 1.1 % Baso % (Auto) 0.4 % Neut # (Auto) 3.81 (1.40-6.50) K/uL Lymph # (Auto) 0.73 L (1.20-3.40) K/uL [place] # (Auto) 0.73 H (0.11-0.59) K/uL Eos # (Auto) 0.06 (0.00-0.50) K/uL Baso # (Auto) 0.02 (0.00-0.20) K/uL Immature Gran # (Auto) 0.02 (0.01-0.20) K/uL PT 11.4 (9.0-12.0) Seconds INR 1.1 (0.9-1.1) APTT 25 (21-31) Seconds PTT Ratio 0.9 Sodium 140 (136-145) mmol/L Potassium 4.0 (3.5-5.1) mmol/L Chloride 105 (98-107) mmol/L Carbon Dioxide 27 (21-32) mmol/L Anion Gap 8 (3-11) BUN 31 H (6-23) mg/dl Creatinine 1.29 H (0.6-1.2) mg/dl Est Cr Clr Drug Dosing 44.7 ml/min eGFR 44.10 BUN/Creatinine Ratio 24.0 H (10-20) Glucose 76 (70-99(Fasting)) mg/dl Calcium 8.9 (8.6-10.3) mg/dl Total Bilirubin 0.8 (0.2-1.0) mg/dl AST 19 (13-39) U/L ALT 13 (7-52) U/L Alkaline Phosphatase 106 H (34-104) U/L Total Protein 6.4 (6.0-8.3) gm/dl Albumin 3.9 (3.4-5.0) gm/dl Globulin 2.5 (2.5-4.0) gm/dl Albumin/Globulin Ratio 1.6 (0.9-2) Blood Type A Positive Antibody Screen NEGATIVE PG Care Time/CCT Total # of Minutes Spent Total Time Spent with Patient: Total time spent is greater than 50% in coordination of care (as documented) at patient's floor/unit and/or counseling patient: Coding Level of Care Code 03799 INT INP/OBS CARE 2/55MIN Diagnoses Anemia D64.9 Anemia type: unspecified type (1) Anemia Anemia type: unspecified type Qualified Code(s): D64.9 - Anemia, unspecified
[2024-09-14] MEDS: OPTIRAY 320 100ml IV ONE (14:12)
--- NOTE | 2024-09-14 14:12 | History & Physical Report ---
Date of Service September 14, 2024 Assessment & Plan (1) Acute GI bleeding: Plan: Melena, upper/mid GI bleed With recent GI bleed 08/01/2024 with nondiagnostic endoscopy 07/31/2024 but friable gastric bypass mucosa. GI consulted. Recommended for follow-up CTA/P, admission for observation, clears today, n.p.o. after midnight for GI reevaluation in the morning. Possible capsule endoscopy as outpatient pending hemoglobin stability. Appreciate recommendations CTA/P: No acute process of the abdomen or pelvis. No evidence for bowel obstruction. S/p gastric bypass. Left nephrolithiasis. No change in soft tissue of the right renal hilum and mesentery suggestive of treated lymphoma. No active bleeding/extravasation is noted. Continue PPI twice daily Transfusion threshold 8.0 given underlying cardiac disease. BUN slightly elevated at 31 N.p.o. at midnight Hemoglobin baseline approximately 1113. Hemoglobin on admission 14 Mildly tachycardic at 981 16. Normotensive Discontinued per GI recommendations, IV fluids avoided in period of critical shortage. Renal function at baseline on admission (2) Chronic diastolic congestive heart failure: Plan: Heart failure with preserved ejection fraction Near euvolemic, clinically without chest pain/chest pressure. EKG is A-fib without ischemic changes Bumex held Metoprolol converted to IV while anticipated to be n.p.o. Aspirin temporarily held for acute GI bleed (3) Atrial fibrillation with slow ventricular response: Plan: A-fib Anticoagulation temporarily held for acute melena and pending hemoglobin stability EKG: A-fib without ischemic changes Atorvastatin, spironolactone held while n.p.o. Plan Chronic stable issues Anxiety/depression: Wellbutrin temporarily held, resume once tolerating p.o. DVT prophylaxis: Pharmacoprophylaxis deferred due to melena/GI bleed, patient previously anticoagulated Disposition: PCU CODE STATUS: Full code Diet: Clears until midnight, n.p.o. after midnight pending reevaluation History of Present Illness Primary Care Provider: Christopher Guevara MD Tea is a 74-year-old female with a past medical history of heart failure with preserved ejection fraction, carcinoid, CKD 3, gastric bypass, ROMULO, non- Hodgkin's lymphoma, B-cell lymphoma, atrial fibrillation on Eliquis, TIA, hyperparathyroidism with daily aspirin use and no NSAID use who presented to the ER with melena. Seen at the bedside. She reports that for the last 3 days she has had black bowel movements similar to past GI bleeding. She reports she did have some suprapubic discomfort and burning with urination a week ago was diagnosed with a UTI was put on Augmentin. She reports since that time the dysuria has improved although she deals still have some midline low abdominal/suprapubic discomfort to palpation. Denies epigastric pain. Has been on Eliquis and aspirin, denies history of heart/vascular stents. She took her metoprolol this morning at around 6 AM. She has not had any lightheadedness or dizziness. No chest pain chest pressure shortness of breath or difficulty breathing. Other than the melena and abdominal discomfort, denies other symptoms. Denies NSAID use. Medical History: Reviewed Medications: Reviewed Surgical History: Reviewed Family history: Reviewed Allergies: Reviewed Social History: Denies tobacco/alcohol use Code Status: Full code Allergies Allergy/AdvReac Type Severity Reaction Status Date / Time No Known Allergies Allergy Verified 09/08/24 13:07 Home Medications Medication Instructions Recorded Confirmed Type aspirin 81 mg tablet,delayed 81 mg PO QAM #30 tabs 07/30/23 09/14/24 Rx release folic acid 1 mg tablet 1 mg PO QAM 07/31/23 09/14/24 History cyanocobalamin (vitamin B-12) 1,000 mcg IM .COMPLEX PRN B12 08/13/23 09/14/24 Rx 1,000 mcg/mL injection solution Deficiency #4 mL magnesium 1 dose PO HS 09/10/23 09/14/24 History ferrous sulfate 325 mg (65 mg 325 mg PO DAILY 02/19/24 09/14/24 History iron) tablet (FeroSul) cholecalciferol (vitamin D3) 25 2,000 unit PO DAILY 03/16/24 09/14/24 History mcg (1,000 unit) capsule (Vitamin D3) bupropion HCl 150 mg 24 hr tablet, 150 mg PO QAM #90 tabs 03/24/24 09/14/24 Rx extended release metoprolol tartrate 50 mg tablet 50 mg PO BID #180 tabs 03/24/24 09/14/24 Rx atorvastatin 40 mg tablet 40 mg PO QAM 07/29/24 09/14/24 History pantoprazole 40 mg tablet,delayed 40 mg PO DAILY #30 tabs 08/01/24 09/14/24 Rx release (Protonix) bumetanide 2 mg tablet 2 mg PO UD 08/05/24 09/14/24 History amoxicillin 875 mg-potassium 1 tab PO BID 7 days #14 tabs 09/08/24 09/14/24 Rx clavulanate 125 mg tablet apixaban 5 mg tablet (Eliquis) 5 mg PO UD 09/14/24 09/14/24 History oxycodone 5 mg tablet 5 mg PO UD PRN pain 09/14/24 09/14/24 History spironolactone 25 mg tablet 12.5 mg PO UD 09/14/24 09/14/24 History (Aldactone) Past Med/Surg History Problem List (Updated 09/01/24 @ 00:08 by Background Daemon) Anemia (Acute) Acute GI bleeding (Acute) Upper GI bleed Atrial fibrillation with RVR Atrial fibrillation with slow ventricular response Chronic diastolic congestive heart failure B-cell lymphoma dx ~03/2022, no longer in chemo Abdominal pain (Acute) Hyperparathyroidism Physical deconditioning Urinary symptom or sign History of TIA (transient ischemic attack) Chronic cerebral ischemia Complicated migraine Lymphocele after surgical procedure Pancytopenia due to antineoplastic chemotherapy Non Hodgkin's lymphoma (Acute) Current use of long chain beamer anticoagulation (Acute) A-fib (Acute) History of back problems Fecal incontinence Permanent atrial fibrillation Mesenteric mass Nephrolithiasis Exertional dyspnea Vitamin D deficiency (Acute) Ventral hernia (Acute) Sleep apnea (Acute) Mesenteric fibrosis (Acute) Leukopenia (Acute) BMI 36.0-36.9,adult (Acute) B12 deficiency Kidney stones hx and at present Lesion of ureter biopsy 12/29/2020 Cirrhosis CKD (chronic kidney disease), stage III follows with [facility] per pt Carcinoid tumor PET SCAN AT [facility]> "PLANS TO TREAT FOR B CELL LYMPHOMA SHOULD TREAT CARCINOID TUMOR" > resolved per pt Prediabetes pt unaware (HFpEF) heart failure with preserved ejection fraction f/u dr. 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 Iron deficiency PFO (patent foramen ovale) Abdominal discomfort, epigastric Morbid obesity SOB (shortness of breath) on exertion History of skin cancer Cardiac murmur TIA (transient ischemic attack) Hyperlipemia Fatigue Permanent atrial fibrillation Mesenteric mass Depression Chronic pain of inguinal region Anticoagulant long-term use Dissection of vertebral artery GERD (gastroesophageal reflux disease) Hypertension Surgical History Port-A-Cath in place (12/10/22) History of bowel resection Hx of lymph node biopsy History of bone marrow biopsy S/P ureteral stent placement History of cystoscopy History of tubal ligation History of umbilical hernia repair History of colostomy reversal History of esophagogastroduodenoscopy (EGD) History of colonoscopy (05/2022) History of cardiac radiofrequency ablation History of cardioversion History of gastric bypass Hx of laparoscopy Hx of abdominal surgery History of colostomy H/O: hysterectomy Hx of removal of cyst (11/14/23) Hx of cholecystectomy Family History Grandmother Diabetes Hypertension Mother Heart disease Hypertension Grandfather Stomach cancer Hypertension Father Pancreatic cancer Hypertension Other No family history of adverse response to anesthesia Denies family history of Ovarian cancer Breast cancer Colorectal cancer Social History Smoking Status: Former smoker Tobacco Type: Cigarettes Age Started Using Tobacco: 20; Age Quit Using Tobacco: 42; packs per day: 1; Second Hand Exposure: No; Do You Dip or Chew Tobacco: No; Hx Alcohol Use: No Hx Substance Use: No Preferred Language: Frisian Communication Ability: Effective Visual Impairment: No Limitations Hearing Ability: Normal Nail Sticker Required: No Beliefs That Will Affect Care: None marital status: Current Living Situation: Spouse Current Living Situation Comment: home with 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 status: retired 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 NAD. Cooperative. HEENT: Atraumatic, normocephalic. Vision and hearing grossly intact. Pupils equal and reactive to light. Pulm: CTAB A&P. -wheezes, -rales, -rhonchi. Symmetrical chest rise. No increased work of breathing. No respiratory distress. Cardiac: Irregularly irregular, soft systolic murmur. Radial pulses intact and symmetrical. Abdominal: Mild tenderness to palpation at the epigastrium, left lower quadrant. No rebound/guarding. Abdomen is not rigid Extremities: Some diffuse muscle soreness of the lower extremities without focal tenderness, no calf swelling or asymmetry. No ankle edema Results & Data Results & Data Vital Signs (Past 12 Hours) Vital Signs Temp Pulse Pulse Resp BP BP Pulse Ox 09/14/24 13:30 108 H 18 114/73 96 09/14/24 13:21 93 H 17 97 09/14/24 13:03 116 H 17 82 L 09/14/24 13:01 125/88 09/14/24 13:01 125/88 09/14/24 12:48 108 H 15 96 09/14/24 12:45 98 H 19 96 09/14/24 12:36 86 19 96 09/14/24 12:21 84 21 92 09/14/24 12:15 97 H 22 96 09/14/24 12:05 119/83 09/14/24 12:05 119/83 09/14/24 12:05 119/83 09/14/24 12:03 96 H 18 96 09/14/24 12:00 118/75 09/14/24 12:00 118/75 09/14/24 12:00 118/75 09/14/24 11:55 115/79 09/14/24 11:55 115/79 09/14/24 11:55 115/79 09/14/24 11:55 115/79 09/14/24 11:51 86 18 116/88 96 09/14/24 11:49 100 H 20 96 09/14/24 11:45 93 H 15 122/83 96 09/14/24 11:44 92 H 20 122/83 95 09/14/24 11:39 85 20 118/85 96 09/14/24 11:30 99 H 20 124/87 97 09/14/24 11:27 91 H 18 144/72 H 97 09/14/24 10:45 94 H 20 97 09/14/24 10:18 36.7 C 113 H 20 149/81 H 99 O2 Del Method 09/14/24 13:30 09/14/24 13:21 09/14/24 13:03 09/14/24 13:01 09/14/24 13:01 09/14/24 12:48 09/14/24 12:45 09/14/24 12:36 09/14/24 12:21 09/14/24 12:15 09/14/24 12:05 09/14/24 12:05 09/14/24 12:05 09/14/24 12:03 09/14/24 12:00 09/14/24 12:00 09/14/24 12:00 09/14/24 11:55 09/14/24 11:55 09/14/24 11:55 09/14/24 11:55 09/14/24 11:51 09/14/24 11:49 Room Air 09/14/24 11:45 09/14/24 11:44 Room Air 09/14/24 11:39 09/14/24 11:30 09/14/24 11:27 09/14/24 10:45 09/14/24 10:18 Room Air PG Care Time/CCT Total # of Minutes Spent Total Time Spent with Patient: Total time spent is greater than 50% in coordination of care (as documented) at patient's floor/unit and/or counseling patient: Coding Level of Care Code 71713 INT INP/OBS CARE 3/75MIN Diagnoses Acute GI bleeding K92.2 Chronic diastolic congestive heart failure I50.32 Atrial fibrillation with slow ventricular response I48.91
[2024-09-14] MEDS: PANTOprazole 80 MG in DEXTROSE 5% 100 ML IV ONE (14:28)
--- NOTE | 2024-09-14 14:28 | CT Scan Report ---
CT OF THE ABDOMEN AND PELVIS WITH CONTRAST CLINICAL HISTORY: Upper GI bleed. History of lymphoma. COMPARISON STUDY: CT of the abdomen pelvis June 01, 2024. TECHNIQUE: Following IV administration of 94 mL of Optiray, axial images of the abdomen and pelvis we re obtained from the lung bases to the proximal femurs. Images were reviewed in the axial, sagittal, and coronal planes. IV contrast was administered without complication. Automated exposure control wa s utilized for the study. A dose lowering technique was utilized adhering to the principles of ALARA . CT DOSE: 1299.06 mGy.cm FINDINGS: Lung bases are unremarkable. No pneumatosis, free air or portal venous gas is present. Ther e is no biliary ductal dilatation status post cholecystectomy. Spleen, adrenal glands and pancreas ar e unremarkable. Water attenuation bilateral renal lesions represent cysts. Multiple subcentimeter rohith al lesions are too small to characterize. Left renal calculi measure up to 8 mm. No ureteral calculi. No hydronephrosis. Soft tissue thickening within the right renal hilum and mesentery remains unchang ed. There is no evidence for a bowel obstruction status post Ngoc-en-Y gastric bypass. No intralumina l contrast within the bowel to suggest active GI bleed by CT is present. There are no fluid collectio ns. No new sites of lymphadenopathy are present. IMPRESSION: 1. No acute process within the abdomen or pelvis. 2. No evidence for a bowel obstruction status post Ngoc-en-Y gastric bypass. No bowel wall thickening . 3. Left nephrolithiasis. No ureteral calculi or hydronephrosis. 4. No change in soft tissue thickening within the right renal hilum and mesentery suggestive of treat ed lymphoma. ACT 112: Negative or not required by law. Electronically signed by: Robe Patterson M.D. 09/14/2024 2:27 PM
[2024-09-14 14:57] LABS: Magnesium 2.1 mg/dl (1.7-2.4)
[2024-09-14] MEDS: PANTOPRAZOLE BOLUS/DRIP IV STA (16:02)
[2024-09-14 16:04] LABS: Hematocrit (blood only) 43.3 % (37.0-47.0); Hemoglobin 14.5 g/dl (12.0-16.0)
[2024-09-14] MEDS: PANTOprazole 40 MG in DEXTROSE 5% MINI-B 100 ML IV SCH (16:18)
[2024-09-14] MEDS: METOPROLOL TARTRATE 1 MG/ML VIAL IV SCH (17:44)
--- NOTE | 2024-09-14 19:52 | Emergency Department Note ---
Impression & Plan Acute upper GI bleed ED Provider Note NAME: GUSTABO MCKEON AGE: 74 SEX: Female INFORMANT: Patient ED PROVIDER(S): Vincent Burgos MD CHIEF COMPLAINT: Melanotic stool PLAN: Disposition: Admitted Outpatient prescription management: none Referral: None MEDICAL DECISION MAKING: Patient presented because of melanotic stool. Rectal examination was Hemoccult positive. Patient had an unremarkable CBC and chemistry panel. Patient underwent CT imaging and no acute intra-abdominal process was noted. Findings consistent with gastric bypass present. Patient had a consultation placed with Dr. Benson of gastroenterology. Case was discussed. He did evaluate the patient in the emergency department. Recommended acid suppression and observation. If the patient does well she may require pill endoscopy. If the patient has worsening bleeding issues she may require endoscopy tomorrow. Patient is in agreement with admission. Patient was treated with pantoprazole IV bolus and drip. Consultation was made with Dr. Jesse Fu of the [facility] service. Patient was evaluated in the ER for further management. Care/management discussed with: manager of administration requires escalation of care to admission Level of care consideration(s): After review of the information above and other included data, I feel the patient requires escalation of care to admission. Triage Nursing notes: reviewed and agree them. Vital Signs: reviewed and remarkable for no significant abnormalities Additional History obtained from: none Chronic Medical/Social Conditions affecting care: Anticoagulation Prior/ Outside/ External records reviewed: none Differential Diagnosis: Anastomotic ulcer, Diverticulosis, AVM, coagulopathy, colitis, inflammatory bowel disease, malignancy, Lianet-Cartagena tear, esophagitis, peptic ulcer disease, variceal bleed, gastritis, epistaxis, fissure, hemorrhoids, as well as other pathologies. Diagnostics, independently interpreted by me: ECG: twelve-lead ECG reveals atrial fibrillation at [address] elevation or depression. No T WI. Cardiac Monitoring: Cardiac monitoring ordered by me: The patient was placed on continuous cardiac monitoring and observed. It revealed A-fib at 82 bpm. Medical decision rules: none Imaging studies: CT scan of the abdomen pelvis is negative for acute pathology. Chest x-ray. Findings: A chest x-ray was performed and revealed no pneumothorax, effusion, infiltrate, pulmonary edema, free air under the diaphragm, or wide mediastinum. Impression: No acute disease. I refer you to the EMR for further details. HPI: 74 year old Female arrives for evaluation of melanotic stool. This been present about 3 days. Patient notes history of GI bleed. Patient is anticoagulated. She takes Protonix daily. Patient denies any NSAID use. Notes intermittent abdominal discomfort. .Pt denies LOC, headache, fevers, chills, diaphoresis, visual changes, neck pain, chest pain, breathing difficulties, nausea, vomiting,back pain, hematochezia, urinary symptoms, numbness, weakness, lymphadenopathy, rash, or other complaints. PAST MEDICAL HISTORY: See Below, anticoagulation, A-fib PAST SURGICAL HISTORY: See Below, SOCIAL HISTORY: See Below, HOME MEDICATIONS: See Below ALLERGIES: See Below VITALS: See Below PHYSICAL EXAMINATION: GENERAL: Awake, alert, well-appearing, in no distress HENT: Normocephalic, atraumatic. Oropharynx unremarkable. EYES: Normal conjunctiva. Sclera non-icteric. NECK: Inspection normal. Non-tender. Supple. No nuchal rigidity. FROM. No masses. RESPIRATORY: Clear to auscultation. No wheezes. No rales. Normal respiratory effort. CARDIAC: Normal rate. Normal rhythm. No murmurs. No rubs. Extremities warm and well perfused. Pulses equal. No JVD. GI: Soft, non-distended. Minimal epigastric tenderness to palpation. No rebound or guarding. No masses. RECTAL: Dark stool, Hemoccult positive MUSCULOSKELETAL: Atraumatic. Chest examination reveals no tenderness. The back is symmetrical on inspection without obvious abnormality. There is no CVA tenderness to palpation. No joint edema. LOWER EXTREMITIES: Calves are equal size bilaterally and non-tender. No edema. No discoloration. NEURO: Normal sensorium. No sensory or motor deficits noted. SKIN: No rash or jaundice noted. 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 Abdominal pain (Acute) Hyperparathyroidism Physical deconditioning Urinary symptom or sign History of TIA (transient ischemic attack) Chronic cerebral ischemia Complicated migraine Lymphocele after surgical procedure Pancytopenia due to antineoplastic chemotherapy Non Hodgkin's lymphoma (Acute) Current use of penitentiary anticoagulation (Acute) A-fib (Acute) History of back problems Fecal incontinence Permanent atrial fibrillation Mesenteric mass Nephrolithiasis Exertional dyspnea Vitamin D deficiency (Acute) Ventral hernia (Acute) Sleep apnea (Acute) Mesenteric fibrosis (Acute) Leukopenia (Acute) BMI 36.0-36.9,adult (Acute) B12 deficiency Kidney stones hx and at present Lesion of ureter biopsy 12/29/2020 Cirrhosis CKD (chronic kidney disease), stage III follows with [place] [facility] per pt Carcinoid tumor PET SCAN AT [facility]> "PLANS TO TREAT FOR B CELL LYMPHOMA SHOULD TREAT CARCINOID TUMOR" > resolved per pt Prediabetes pt unaware (HFpEF) heart failure with preserved ejection fraction f/u dr. 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 Iron deficiency PFO (patent foramen ovale) Abdominal discomfort, epigastric Morbid obesity SOB (shortness of breath) on exertion History of skin cancer Cardiac murmur TIA (transient ischemic attack) Hyperlipemia Fatigue Permanent atrial fibrillation Mesenteric mass Depression Chronic pain of inguinal region Anticoagulant long-term use Dissection of vertebral artery GERD (gastroesophageal reflux disease) Hypertension Surgical History Port-A-Cath in place (12/10/22) History of bowel resection Hx of lymph node biopsy History of bone marrow biopsy S/P ureteral stent placement History of cystoscopy History of tubal ligation History of umbilical hernia repair History of colostomy reversal History of esophagogastroduodenoscopy (EGD) History of colonoscopy (05/2022) History of cardiac radiofrequency ablation History of cardioversion History of gastric bypass Hx of laparoscopy Hx of abdominal surgery History of colostomy H/O: hysterectomy Hx of removal of cyst (11/14/23) Hx of cholecystectomy Family History Grandmother Diabetes Hypertension Mother Heart disease Hypertension Grandfather Stomach cancer Hypertension Father Pancreatic cancer Hypertension Other No family history of adverse response to anesthesia Denies family history of Ovarian cancer Breast cancer Colorectal cancer Social History Smoking Status: Former smoker Tobacco Type: Cigarettes Age Started Using Tobacco: 20; Age Quit Using Tobacco: 42; packs per day: 1; Second Hand Exposure: No; Do You Dip or Chew Tobacco: No; Hx Alcohol Use: No Hx Substance Use: No Preferred Language: Vietnamese Communication Ability: Effective Visual Impairment: No Limitations Hearing Ability: Normal Property Consultant Required: No Beliefs That Will Affect Care: None marital status: Current Living Situation: Spouse Current Living Situation Comment: home with 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 status: retired 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) How many Children do You have: 1 Other 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 Helps Us Care for You: No 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 Feels Safe at Home: Yes Safety Concerns: Feels Safe At This Time Diet: regular caffeine: No Dental Care, Regularly: Yes Physical Activity Frequency: Does not Exercise Seatbelt Use: always Sunscreen Use: No Assistive Devices: None Allergies Allergies Allergy/AdvReac Type Severity Reaction Status Date / Time No Known Allergies Allergy Verified 09/08/24 13:07 Home Meds Home Medications Medication Instructions Recorded Confirmed folic acid 1 mg tablet 1 mg PO QAM 07/31/23 09/14/24 magnesium 1 dose PO HS 09/10/23 09/14/24 ferrous sulfate 325 mg (65 mg 325 mg PO DAILY 02/19/24 09/14/24 iron) tablet (FeroSul) cholecalciferol (vitamin D3) 25 2,000 unit PO DAILY 03/16/24 09/14/24 mcg (1,000 unit) capsule (Vitamin D3) atorvastatin 40 mg tablet 40 mg PO QAM 07/29/24 09/14/24 bumetanide 2 mg tablet 2 mg PO UD 08/05/24 09/14/24 apixaban 5 mg tablet (Eliquis) 5 mg PO UD 09/14/24 09/14/24 oxycodone 5 mg tablet 5 mg PO UD PRN pain 09/14/24 09/14/24 spironolactone 25 mg tablet 12.5 mg PO UD 09/14/24 09/14/24 (Aldactone) Previous Rx's Medication Instructions Recorded aspirin 81 mg tablet,delayed 81 mg PO QAM #30 tabs 07/30/23 release cyanocobalamin (vitamin B-12) 1,000 mcg IM .COMPLEX PRN B12 08/13/23 1,000 mcg/mL injection solution Deficiency #4 mL bupropion HCl 150 mg 24 hr tablet, 150 mg PO QAM #90 tabs 03/24/24 extended release metoprolol tartrate 50 mg tablet 50 mg PO BID #180 tabs 03/24/24 pantoprazole 40 mg tablet,delayed 40 mg PO DAILY #30 tabs 08/01/24 release (Protonix) amoxicillin 875 mg-potassium 1 tab PO BID 7 days #14 tabs 09/08/24 clavulanate 125 mg tablet Results & Data (ED) Vital Signs Vital Signs - 24 hr 09/14/24 10:18 09/14/24 10:45 09/14/24 11:27 Temperature 36.7 C Temperature Source Skin Pulse Rate 113 H 94 H 91 H Pulse Rate [Finger] Pulse Rate from SpO2 Sensor 97 H 85 Pulse Rhythm Respiratory Rate 20 20 18 Respiratory Effort / Characteristics Non-Labored Spontaneous Respiratory Depth Normal Respiratory Pattern Regular Blood Pressure 149/81 H 144/72 H Blood Pressure [Left Arm] Blood Pressure Mean 103 96 Blood Pressure Mean [Left Arm] Pulse Oximetry 99 97 97 Oxygen Delivery Method Room Air Sepsis Recent Fever Within 48 Hours No Sepsis New/Unexplained Change in Mental Status N/A Sepsis Action Taken by Nursing No Action Required 09/14/24 11:30 09/14/24 11:39 09/14/24 11:44 Temperature Temperature Source Pulse Rate 99 H 85 Pulse Rate [Finger] 92 H Pulse Rate from SpO2 Sensor 87 86 Pulse Rhythm Respiratory Rate 20 20 20 Respiratory Effort / Characteristics Respiratory Depth Respiratory Pattern Blood Pressure 124/87 118/85 Blood Pressure [Left Arm] 122/83 Blood Pressure Mean 99 96 Blood Pressure Mean [Left Arm] 96 Pulse Oximetry 97 96 95 Oxygen Delivery Method Room Air Sepsis Recent Fever Within 48 Hours Sepsis New/Unexplained Change in Mental Status Sepsis Action Taken by Nursing 09/14/24 11:45 09/14/24 11:49 09/14/24 11:51 Temperature Temperature Source Pulse Rate 93 H 100 H 86 Pulse Rate [Finger] Pulse Rate from SpO2 Sensor 98 H 84 Pulse Rhythm Irregular Respiratory Rate 15 20 18 Respiratory Effort / Characteristics Respiratory Depth Respiratory Pattern Blood Pressure 122/83 116/88 Blood Pressure [Left Arm] Blood Pressure Mean 96 97 Blood Pressure Mean [Left Arm] Pulse Oximetry 96 96 96 Oxygen Delivery Method Room Air Sepsis Recent Fever Within 48 Hours Sepsis New/Unexplained Change in Mental Status Sepsis Action Taken by Nursing 09/14/24 11:55 09/14/24 11:55 09/14/24 11:55 Temperature Temperature Source Pulse Rate Pulse Rate [Finger] Pulse Rate from SpO2 Sensor Pulse Rhythm Respiratory Rate Respiratory Effort / Characteristics Respiratory Depth Respiratory Pattern Blood Pressure 115/79 115/79 115/79 Blood Pressure [Left Arm] Blood Pressure Mean 94 94 94 Blood Pressure Mean [Left Arm] Pulse Oximetry Oxygen Delivery Method Sepsis Recent Fever Within 48 Hours Sepsis New/Unexplained Change in Mental Status Sepsis Action Taken by Nursing 09/14/24 11:55 09/14/24 12:00 09/14/24 12:00 Temperature Temperature Source Pulse Rate Pulse Rate [Finger] Pulse Rate from SpO2 Sensor Pulse Rhythm Respiratory Rate Respiratory Effort / Characteristics Respiratory Depth Respiratory Pattern Blood Pressure 115/79 118/75 118/75 Blood Pressure [Left Arm] Blood Pressure Mean 94 101 101 Blood Pressure Mean [Left Arm] Pulse Oximetry Oxygen Delivery Method Sepsis Recent Fever Within 48 Hours Sepsis New/Unexplained Change in Mental Status Sepsis Action Taken by Nursing 09/14/24 12:00 09/14/24 12:03 09/14/24 12:05 Temperature Temperature Source Pulse Rate 96 H Pulse Rate [Finger] Pulse Rate from SpO2 Sensor 98 H Pulse Rhythm Respiratory Rate 18 Respiratory Effort / Characteristics Respiratory Depth Respiratory Pattern Blood Pressure 118/75 119/83 Blood Pressure [Left Arm] Blood Pressure Mean 101 90 Blood Pressure Mean [Left Arm] Pulse Oximetry 96 Oxygen Delivery Method Sepsis Recent Fever Within 48 Hours Sepsis New/Unexplained Change in Mental Status Sepsis Action Taken by Nursing 09/14/24 12:05 09/14/24 12:05 09/14/24 12:15 Temperature Temperature Source Pulse Rate 97 H Pulse Rate [Finger] Pulse Rate from SpO2 Sensor 89 Pulse Rhythm Respiratory Rate 22 Respiratory Effort / Characteristics Respiratory Depth Respiratory Pattern Blood Pressure 119/83 119/83 Blood Pressure [Left Arm] Blood Pressure Mean 90 90 Blood Pressure Mean [Left Arm] Pulse Oximetry 96 Oxygen Delivery Method Sepsis Recent Fever Within 48 Hours Sepsis New/Unexplained Change in Mental Status Sepsis Action Taken by Nursing 09/14/24 12:21 09/14/24 12:36 09/14/24 12:45 Temperature Temperature Source Pulse Rate 84 86 98 H Pulse Rate [Finger] Pulse Rate from SpO2 Sensor 81 89 86 Pulse Rhythm Respiratory Rate 21 19 19 Respiratory Effort / Characteristics Respiratory Depth Respiratory Pattern Blood Pressure Blood Pressure [Left Arm] Blood Pressure Mean Blood Pressure Mean [Left Arm] Pulse Oximetry 92 96 96 Oxygen Delivery Method Sepsis Recent Fever Within 48 Hours Sepsis New/Unexplained Change in Mental Status Sepsis Action Taken by Nursing 09/14/24 12:48 09/14/24 13:01 09/14/24 13:01 Temperature Temperature Source Pulse Rate 108 H Pulse Rate [Finger] Pulse Rate from SpO2 Sensor 86 Pulse Rhythm Respiratory Rate 15 Respiratory Effort / Characteristics Respiratory Depth Respiratory Pattern Blood Pressure 125/88 125/88 Blood Pressure [Left Arm] Blood Pressure Mean 110 110 Blood Pressure Mean [Left Arm] Pulse Oximetry 96 Oxygen Delivery Method Sepsis Recent Fever Within 48 Hours Sepsis New/Unexplained Change in Mental Status Sepsis Action Taken by Nursing 09/14/24 13:03 09/14/24 13:21 09/14/24 13:30 Temperature Temperature Source Pulse Rate 116 H 93 H 108 H Pulse Rate [Finger] Pulse Rate from SpO2 Sensor 105 H 80 79 Pulse Rhythm Respiratory Rate 17 17 18 Respiratory Effort / Characteristics Respiratory Depth Respiratory Pattern Blood Pressure 114/73 Blood Pressure [Left Arm] Blood Pressure Mean 86 Blood Pressure Mean [Left Arm] Pulse Oximetry 82 L 97 96 Oxygen Delivery Method Sepsis Recent Fever Within 48 Hours Sepsis New/Unexplained Change in Mental Status Sepsis Action Taken by Nursing 09/14/24 13:30 09/14/24 14:00 Temperature Temperature Source Pulse Rate 98 H Pulse Rate [Finger] Pulse Rate from SpO2 Sensor Pulse Rhythm Respiratory Rate 17 Respiratory Effort / Characteristics Respiratory Depth Respiratory Pattern Blood Pressure 114/73 90/68 L Blood Pressure [Left Arm] Blood Pressure Mean 94 77 Blood Pressure Mean [Left Arm] Pulse Oximetry 95 Oxygen Delivery Method Sepsis Recent Fever Within 48 Hours Sepsis New/Unexplained Change in Mental Status Sepsis Action Taken by Nursing Laboratory Data 09/14/24 15:17 09/14/24 10:55 Lab Results 09/14/24 09/14/24 Range/Units 10:55 11:49 WBC 5.37 (4.8-10.8) K/ul RBC 4.04 L (4.20-5.40) M/uL Hgb 14.0 (12.0-16.0) g/dl Hct 40.9 (37.0-47.0) % MCV 101.2 H (80.0-100.0) fL MCH 34.7 H (25.0-34.0) pg MCHC 34.2 (32.0-36.0) g/dL RDW Std Deviation 48.8 H (36.4-46.3) fL RDW Coeff of Rodrigo 13.1 (11.5-14.5) % Plt Count 213 (130-400) K/uL MPV 9.1 L (9.4-12.4) fL Immature Gran % (Auto) 0.4 % Neut % (Auto) 70.9 % Lymph % (Auto) 13.6 % Meigs % (Auto) 13.6 % Eos % (Auto) 1.1 % Baso % (Auto) 0.4 % Neut # (Auto) 3.81 (1.40-6.50) K/uL Lymph # (Auto) 0.73 L (1.20-3.40) K/uL Meigs # (Auto) 0.73 H (0.11-0.59) K/uL Eos # (Auto) 0.06 (0.00-0.50) K/uL Baso # (Auto) 0.02 (0.00-0.20) K/uL Immature Gran # (Auto) 0.02 (0.01-0.20) K/uL PT 11.4 (9.0-12.0) Seconds INR 1.1 (0.9-1.1) APTT 25 (21-31) Seconds PTT Ratio 0.9 Sodium 140 (136-145) mmol/L Potassium 4.0 (3.5-5.1) mmol/L Chloride 105 (98-107) mmol/L Carbon Dioxide 27 (21-32) mmol/L Anion Gap 8 (3-11) BUN 31 H (6-23) mg/dl Creatinine 1.29 H (0.6-1.2) mg/dl Est Cr Clr Drug Dosing 44.7 ml/min eGFR 44.10 BUN/Creatinine Ratio 24.0 H (10-20) Glucose 76 (70-99(Fasting)) mg/dl Calcium 8.9 (8.6-10.3) mg/dl Magnesium 2.1 (1.7-2.4) mg/dl Total Bilirubin 0.8 (0.2-1.0) mg/dl AST 19 (13-39) U/L ALT 13 (7-52) U/L Alkaline Phosphatase 106 H (34-104) U/L Total Protein 6.4 (6.0-8.3) gm/dl Albumin 3.9 (3.4-5.0) gm/dl Globulin 2.5 (2.5-4.0) gm/dl Albumin/Globulin Ratio 1.6 (0.9-2) Blood Type A Positive Antibody Screen NEGATIVE Administered Medications Metoprolol Tartrate (Metoprolol Tartrate 1 Mg/Ml Vial) 2.5 mg IV Q6 JESSIE Stop: 10/14/24 17:59 Last Admin: 09/14/24 17:44 Dose: 2.5 mg Documented By: MAYNOR Discontinued Medications Pantoprazole Sodium 40 mg/ (Dextrose) 100 mls @ 20 mls/hr IV Q5H JESSIE Stop: 09/14/24 18:59 Last Admin: 09/14/24 16:18 Dose: 8 mg/hr, 20 mls/hr Documented By: MAYNOR Pantoprazole Sodium 80 mg/ (Dextrose) 120 mls @ 480 mls/hr IV NOW ONE Stop: 09/14/24 14:03 Last Infusion: 09/14/24 14:46 Dose: Infused Documented By: Admin: 09/14/24 14:28 Dose: 480 mls/hr Documented By: STAN Ioversol (Optiray 320 100ml) 94 ml IV ONCE ONE Stop: 09/14/24 14:13 Last Admin: 09/14/24 14:12 Dose: 94 ml Documented By: KRISTYN Pantoprazole Sodium (Pantoprazole Bolus/Drip) 1 each IV NOW STA Stop: 09/14/24 13:50 Last Admin: 09/14/24 16:02 Dose: 1 each Documented By: MAYNOR Imaging Data Radiologist's Impression: Chest X-Ray 09/14/24 11:13 XR chest 1V portable CLINICAL HISTORY: GI bleed TECHNIQUE: Single frontal radiograph of the chest was obtained. Comparison: Comparison is made to chest radiograph 03/13/2024 FINDINGS: Right port catheter is unchanged. The cardiomediastinal silhouette is stable. The lungs are clear. No evidence of pleural effusion or pneumothorax. IMPRESSION: No acute chest disease. Cardiomegaly is noted. ACT 112: Negative or not required by law. Electronically signed by: Isra Wise M.D. 09/14/2024 11:53 AM Abdomen/Pelvis CT 09/14/24 13:49 CT OF THE ABDOMEN AND PELVIS WITH CONTRAST CLINICAL HISTORY: Upper GI bleed. History of lymphoma. COMPARISON STUDY: CT of the abdomen pelvis June 01, 2024. TECHNIQUE: Following IV administration of 94 mL of Optiray, axial images of the abdomen and pelvis were obtained from the lung bases to the proximal femurs. Images were reviewed in the axial, sagittal, and coronal planes. IV contrast was administered without complication. Automated exposure control was utilized for the study. A dose lowering technique was utilized adhering to the principles of ALARA. CT DOSE: 1299.06 mGy.cm FINDINGS: Lung bases are unremarkable. No pneumatosis, free air or portal venous gas is present. There is no biliary ductal dilatation status post cholecystectomy. Spleen, adrenal glands and pancreas are unremarkable. Water attenuation bilateral renal lesions represent cysts. Multiple subcentimeter renal lesions are too small to characterize. Left renal calculi measure up to 8 mm. No ureteral calculi. No hydronephrosis. Soft tissue thickening within the right renal hilum and mesentery remains unchanged. There is no evidence for a bowel obstruction status post Ngoc-en-Y gastric bypass. No intraluminal contrast within the bowel to suggest active GI bleed by CT is present. There are no fluid collections. No new sites of lymphadenopathy are present. IMPRESSION: 1. No acute process within the abdomen or pelvis. 2. No evidence for a bowel obstruction status post Ngoc-en-Y gastric bypass. No bowel wall thickening. 3. Left nephrolithiasis. No ureteral calculi or hydronephrosis. 4. No change in soft tissue thickening within the right renal hilum and mesentery suggestive of treated lymphoma. ACT 112: Negative or not required by law. Electronically signed by: Robe Patterson M.D. 09/14/2024 2:27 PM Discharge Plan Visit Data Chief Complaint: Rectal Bleed Stated Complaint: BLACK STOOL, ABD PAIN, FATIGUE ED Provider: Vincent Burgos Discharge Problem: Acute upper GI bleed Patient Disposition: Admitted As Inpatient Discharge Instructions Interventions: ED Discharge Assessment Last Done: 09/14/24 14:43
[2024-09-14 20:38] LABS: Hematocrit (blood only) 40.3 % (37.0-47.0); Hemoglobin 13.5 g/dl (12.0-16.0)
[2024-09-14] MEDS: PANTOprazole 40 MG/10 ML SYR IV SCH (21:32)
[2024-09-14] MEDS: METOPROLOL TARTRATE 50 MG TAB PO SCH (21:44)
[2024-09-15] MEDS: LACTATED RINGER'S 1,000 ML IV SCH (00:23)
[2024-09-15 03:00] LABS: BUN Creatinine Ratio 19.4 (10-20); Calcium 8.2 mg/dl (8.6-10.3); Creatinine Clr Calc Pharmacy 45.6 ml/min; Potassium 4.1 mmol/L (3.5-5.1)
[2024-09-15 03:01] LABS: Basophils # (auto) 0.02 K/uL (0.00-0.20); Basophils % (auto) 0.4 %; Eosinophils # (auto) 0.06 K/uL (0.00-0.50); Eosinophils % (auto) 1.3 %; Hematocrit (blood only) 38.5 % (37.0-47.0); Hemoglobin 13.1 g/dl (12.0-16.0); Immature Granulocytes # (auto) 0.01 K/uL (0.01-0.20); Immature Granulocytes % (auto) 0.2 %; Lymphocytes # (auto) 0.89 K/uL (1.20-3.40); Lymphocytes % (auto) 19.2 %; Mean Corpuscular Hemoglobin 34.4 pg (25.0-34.0); Mean Platelet Volume 8.8 fL (9.4-12.4); Monocytes # (auto) 0.56 K/uL (0.11-0.59); Monocytes % (auto) 12.1 %; Neutrophils % (auto) 66.8 %; Platelet Count 192 K/uL (130-400); RDW Coefficient of Variation 13.2 % (11.5-14.5); RDW Standard Deviation 48.7 fL (36.4-46.3); Red Blood Count 3.81 M/uL (4.20-5.40); White Blood Count 4.64 K/ul (4.8-10.8)
[2024-09-15] MEDS: METOPROLOL TARTRATE 1 MG/ML VIAL IV SCH (06:26)
[2024-09-15 09:17] LABS: Hematocrit (blood only) 43.2 % (37.0-47.0); Hemoglobin 14.3 g/dl (12.0-16.0)
--- NOTE | 2024-09-15 09:22 | Gastroenterology Progress Note ---
<Statement entered by Adan Benson MD - 09/15/24 12:58> I personally saw and examined the patient. I have reviewed the chart and agree with the documentation provided by the GAMING HOST including discussion about the assessment, treatment and plan. Briefly, hgb stable and no bleeding. 2 egds and 1 colon in past 6 months. at this point, feed the patient and we will do outpt vce (capsule endoscopy). She agrees to plan. Gi will sign off, please call with questions. Date of Service September 15, 2024 Assessment & Plan (1) Anemia: Plan: 74 year old female with history of HFpEF, prediabetes, carcinoid tumor, CKD-III, cirrhosis, sleep apnea, non-Hodgkin's lymphoma, B-cell lymphoma atrial fibrillation (on Eliquis), TIA, and hyperparathyroidism who presented through the ED w/ reports of black stools x 3 days. She is hemodynamically stable w/ stable HGB at 14 without BUN elevation. Suspected she has some oozing related to friable mucosa noted at anastomosis on EGD in July. No urgent indication for EGD today. She has remained stable overnight without further report of GI bleeding, HGB stable at 14.3 without BUN elevation. No plan for EGD evaluation. May advance diet. Advance diet as tolerated Increase PPI to twice daily shelter May add Carafate QID for 10 days Trend H&H Monitor and document GI output Transfuse PRN per primary service She has an extensive surgical history, however, she should follow up with [facility] for possible VCE evaluation Continued follow up with your hepatology providers through [facility] Recall GI As needed I spent a total of 40 minutes on the date of service in review of patient's record, and previously obtained information in person and appropriate medical visit, discussion and education of plan, with patient and/or caregiver, placing orders for tests/referral/procedures as medically necessary and documentation of pertinent clinical information in patient's medical records for their visit today. Thank you for allowing us to participate in the care of this patient. Please call with any acute changes, questions or concerns. Please see addendum below with additional recommendation from my supervising physician. Admission and Anticipated Discharge Date Admission Date: September 14, 2024 Subjective Pt was seen and evaluated, chart reviewed. Mild epigastric pain. No nausea, vomiting. No further BMs since admission. No fever, chills, CP, SOB. Review of Systems Review of Systems: All other findings negative except as noted in HPI. Physical Exam Constitutional: WD/WN, vitals as above Respiratory: normal respiratory effort, lungs clear to auscultation Cardiovascular: Rate/Rhythm: regular rate and regular rhythm Gastrointestinal (Abdomen): normal bowel sounds, soft, nontender, no hepatosplenomegaly Skin: no rashes, warm and dry Results & Data Results & Data Vital Signs (Past 12 Hours) Vital Signs Temp Pulse Pulse Resp BP BP BP 09/15/24 08:24 115/75 09/15/24 06:27 87 20 115/75 09/15/24 06:26 87 115/75 09/15/24 03:45 36.6 C 95 H 18 125/75 09/14/24 22:58 36.5 C 104 H 16 108/69 09/14/24 22:43 104 H 09/14/24 21:43 96 H 125/90 Pulse Ox O2 Del Method 09/15/24 08:24 09/15/24 06:27 09/15/24 06:26 09/15/24 03:45 94 Room Air 09/14/24 22:58 95 Room Air 09/14/24 22:43 09/14/24 21:43 Laboratory Results 09/15/24 09/15/24 09/14/24 Range/Units 09:02 02:31 20:21 WBC 4.64 L (4.8-10.8) K/ul RBC 3.81 L (4.20-5.40) M/uL Hgb 14.3 13.1 13.5 (12.0-16.0) g/dl Hct 43.2 38.5 40.3 (37.0-47.0) % MCV 101.0 H (80.0-100.0) fL MCH 34.4 H (25.0-34.0) pg MCHC 34.0 (32.0-36.0) g/dL RDW Std Deviation 48.7 H (36.4-46.3) fL RDW Coeff of Rodrigo 13.2 (11.5-14.5) % Plt Count 192 (130-400) K/uL MPV 8.8 L (9.4-12.4) fL Immature Gran % (Auto) 0.2 % Neut % (Auto) 66.8 % Lymph % (Auto) 19.2 % [place] % (Auto) 12.1 % Eos % (Auto) 1.3 % Baso % (Auto) 0.4 % Neut # (Auto) 3.10 (1.40-6.50) K/uL Lymph # (Auto) 0.89 L (1.20-3.40) K/uL [place] # (Auto) 0.56 (0.11-0.59) K/uL Eos # (Auto) 0.06 (0.00-0.50) K/uL Baso # (Auto) 0.02 (0.00-0.20) K/uL Immature Gran # (Auto) 0.01 (0.01-0.20) K/uL PT (9.0-12.0) Seconds INR (0.9-1.1) APTT (21-31) Seconds PTT Ratio Sodium 139 (136-145) mmol/L Potassium 4.1 (3.5-5.1) mmol/L Chloride 105 (98-107) mmol/L Carbon Dioxide 27 (21-32) mmol/L Anion Gap 7 (3-11) BUN 24 H (6-23) mg/dl Creatinine 1.24 H (0.6-1.2) mg/dl Est Cr Clr Drug Dosing 45.6 ml/min eGFR 46.24 BUN/Creatinine Ratio 19.4 (10-20) Glucose 96 (70-99(Fasting)) mg/dl Calcium 8.2 L (8.6-10.3) mg/dl Magnesium (1.7-2.4) mg/dl Total Bilirubin (0.2-1.0) mg/dl AST (13-39) U/L ALT (7-52) U/L Alkaline Phosphatase (34-104) U/L Total Protein (6.0-8.3) gm/dl Albumin (3.4-5.0) gm/dl Globulin (2.5-4.0) gm/dl Albumin/Globulin Ratio (0.9-2) Blood Type Antibody Screen 09/14/24 09/14/24 09/14/24 Range/Units 15:17 11:49 10:55 WBC 5.37 (4.8-10.8) K/ul RBC 4.04 L (4.20-5.40) M/uL Hgb 14.5 14.0 (12.0-16.0) g/dl Hct 43.3 40.9 (37.0-47.0) % MCV 101.2 H (80.0-100.0) fL MCH 34.7 H (25.0-34.0) pg MCHC 34.2 (32.0-36.0) g/dL RDW Std Deviation 48.8 H (36.4-46.3) fL RDW Coeff of Rodrigo 13.1 (11.5-14.5) % Plt Count 213 (130-400) K/uL MPV 9.1 L (9.4-12.4) fL Immature Gran % (Auto) 0.4 % Neut % (Auto) 70.9 % Lymph % (Auto) 13.6 % [place] % (Auto) 13.6 % Eos % (Auto) 1.1 % Baso % (Auto) 0.4 % Neut # (Auto) 3.81 (1.40-6.50) K/uL Lymph # (Auto) 0.73 L (1.20-3.40) K/uL [place] # (Auto) 0.73 H (0.11-0.59) K/uL Eos # (Auto) 0.06 (0.00-0.50) K/uL Baso # (Auto) 0.02 (0.00-0.20) K/uL Immature Gran # (Auto) 0.02 (0.01-0.20) K/uL PT 11.4 (9.0-12.0) Seconds INR 1.1 (0.9-1.1) APTT 25 (21-31) Seconds PTT Ratio 0.9 Sodium 140 (136-145) mmol/L Potassium 4.0 (3.5-5.1) mmol/L Chloride 105 (98-107) mmol/L Carbon Dioxide 27 (21-32) mmol/L Anion Gap 8 (3-11) BUN 31 H (6-23) mg/dl Creatinine 1.29 H (0.6-1.2) mg/dl Est Cr Clr Drug Dosing 44.7 ml/min eGFR 44.10 BUN/Creatinine Ratio 24.0 H (10-20) Glucose 76 (70-99(Fasting)) mg/dl Calcium 8.9 (8.6-10.3) mg/dl Magnesium 2.1 (1.7-2.4) mg/dl Total Bilirubin 0.8 (0.2-1.0) mg/dl AST 19 (13-39) U/L ALT 13 (7-52) U/L Alkaline Phosphatase 106 H (34-104) U/L Total Protein 6.4 (6.0-8.3) gm/dl Albumin 3.9 (3.4-5.0) gm/dl Globulin 2.5 (2.5-4.0) gm/dl Albumin/Globulin Ratio 1.6 (0.9-2) Blood Type A Positive Antibody Screen NEGATIVE PG Care Time/CCT Total # of Minutes Spent Total Time Spent with Patient: Total time spent is greater than 50% in coordination of care (as documented) at patient's floor/unit and/or counseling patient: Coding Level of Care Code 34683 SUB INP/OBS CARE 2/35MIN Diagnoses Anemia D64.9 Anemia type: unspecified type (1) Anemia Anemia type: unspecified type Qualified Code(s): D64.9 - Anemia, unspecified
[2024-09-15] MEDS: SUCRALFATE 1 GM/10 ML UDC PO SCH (17:46)
[2024-09-15] MEDS: HEPARIN 100 UNIT/ML 5ML FLUSH FLUSH PRN (21:17)
--- NOTE | 2024-09-15 21:58 | Hospitalist Progress Note ---
Date of Service September 15, 2024 Assessment & Plan (1) Acute GI bleeding: Plan: Melena, upper/mid GI bleed With recent GI bleed 08/01/2024 with nondiagnostic endoscopy 07/31/2024 but friable gastric bypass mucosa. GI consulted. Recommended for follow-up CTA/P, admission for observation, clears today, n.p.o. after midnight for GI reevaluation in the morning. Possible capsule endoscopy as outpatient pending hemoglobin stability. Appreciate recommendations CTA/P: No acute process of the abdomen or pelvis. No evidence for bowel obstruction. S/p gastric bypass. Left nephrolithiasis. No change in soft tissue of the right renal hilum and mesentery suggestive of treated lymphoma. No active bleeding/extravasation is noted. Continue PPI twice daily Transfusion threshold 8.0 given underlying cardiac disease. BUN slightly elevated at 31 N.p.o. at midnight Hemoglobin baseline approximately 1113. Hemoglobin on admission 14 Mildly tachycardic at 981 16. Normotensive Discontinued per GI recommendations, IV fluids avoided in period of critical shortage. Renal function at baseline on admission On 09/15 less dark stools. reviewed blood work (2) Chronic diastolic congestive heart failure: Plan: Heart failure with preserved ejection fraction Near euvolemic, clinically without chest pain/chest pressure. EKG is A-fib without ischemic changes Bumex held Metoprolol converted to IV while anticipated to be n.p.o. Aspirin temporarily held for acute GI bleed (3) Atrial fibrillation with slow ventricular response: Plan: A-fib Anticoagulation temporarily held for acute melena and pending hemoglobin stability EKG: A-fib without ischemic changes Atorvastatin, spironolactone held while n.p.o. Plan Chronic stable issues Anxiety/depression: Wellbutrin temporarily held, resume once tolerating p.o. DVT prophylaxis: Pharmacoprophylaxis deferred due to melena/GI bleed, patient previously anticoagulated Disposition: PCU CODE STATUS: Full code Diet: resumed diet. Admission and Anticipated Discharge Date Admission Date: September 14, 2024 Subjective Patient reports that her stools have improved. Physical Exam Physical Exam: General: A&Ox3. NAD. Cooperative. HEENT: Atraumatic, normocephalic. Vision and hearing grossly intact. Pupils equal and reactive to light. Pulm: CTAB A&P. Cardiac: Irregularly irregular, soft systolic murmur. Radial pulses intact and symmetrical. Abdominal: Mild tenderness to palpation at the epigastrium, left lower quadrant. No rebound/guarding. Abdomen is not rigid Extremities: Some diffuse muscle soreness of the lower extremities without focal tenderness, no calf swelling or asymmetry. No ankle edema Results & Data Results & Data Vital Signs (Past 12 Hours) Vital Signs Temp Pulse Pulse Pulse Resp BP BP 09/15/24 19:30 95 H 118/82 09/15/24 19:28 37.0 C 80 18 118/82 09/15/24 17:50 92 H 157/101 H 09/15/24 14:00 90 121/78 09/15/24 13:01 91 H 110/81 09/15/24 12:59 36.3 C L 91 H 19 BP Pulse Ox O2 Del Method 09/15/24 19:30 09/15/24 19:28 97 Room Air 09/15/24 17:50 09/15/24 14:00 09/15/24 13:01 09/15/24 12:59 110/81 98 Room Air PG Care Time/CCT Total # of Minutes Spent Total Time Spent with Patient: Total time spent is greater than 50% in coordination of care (as documented) at patient's floor/unit and/or counseling patient: Coding Level of Care Code 90905 SUB INP/OBS CARE 2/35MIN Diagnoses Acute GI bleeding K92.2 Chronic diastolic congestive heart failure I50.32 Atrial fibrillation with slow ventricular response I48.91
[2024-09-16 06:42] LABS: Basophils # (auto) 0.02 K/uL (0.00-0.20); Basophils % (auto) 0.5 %; Eosinophils # (auto) 0.05 K/uL (0.00-0.50); Eosinophils % (auto) 1.2 %; Hematocrit (blood only) 38.6 % (37.0-47.0); Hemoglobin 13.2 g/dl (12.0-16.0); Immature Granulocytes # (auto) 0.01 K/uL (0.01-0.20); Immature Granulocytes % (auto) 0.2 %; Lymphocytes % (auto) 16.2 %; Mean Corpuscular Hemoglobin 34.1 pg (25.0-34.0); Mean Corpuscular Hgb Conc 34.2 g/dL (32.0-36.0); Mean Corpuscular Volume 99.7 fL (80.0-100.0); Mean Platelet Volume 9.1 fL (9.4-12.4); Monocytes # (auto) 0.48 K/uL (0.11-0.59); Monocytes % (auto) 11.1 %; Neutrophils # (auto) 3.07 K/uL (1.40-6.50); Neutrophils % (auto) 70.8 %; Platelet Count 179 K/uL (130-400); RDW Coefficient of Variation 13.1 % (11.5-14.5); RDW Standard Deviation 47.5 fL (36.4-46.3); Red Blood Count 3.87 M/uL (4.20-5.40); White Blood Count 4.33 K/ul (4.8-10.8)
[2024-09-16 06:59] LABS: BUN Creatinine Ratio 19.7 (10-20); Calcium 8.7 mg/dl (8.6-10.3); Creatinine Clr Calc Pharmacy 44.4 ml/min; Potassium 4.2 mmol/L (3.5-5.1)
[2024-09-16 07:45] VITALS: RESP 18
[2024-09-16 11:10] VITALS: PULSE 98; TEMP 97.7; O2SAT 95
[2024-09-16 12:38] VITALS: BP 118/82
--- NOTE | 2024-09-18 14:53 | Discharge Summary ---
Discharge Summary Date of Service September 16, 2024 Principal Dx & Hospital Course #1 = Principal Diagnosis (1) Acute GI bleeding: Melena, upper/mid GI bleed With recent GI bleed 08/01/2024 with nondiagnostic endoscopy 07/31/2024 but friable gastric bypass mucosa. GI consulted. Recommended for follow-up CTA/P, admission for observation, clears today, n.p.o. after midnight for GI reevaluation in the morning. Possible capsule endoscopy as outpatient pending hemoglobin stability. Appreciate recommendations CTA/P: No acute process of the abdomen or pelvis. No evidence for bowel obstruction. S/p gastric bypass. Left nephrolithiasis. Appreciate input from GI: She has remained stable overnight without further report of GI bleeding, HGB stable at 14.3 without BUN elevation. No plan for EGD evaluation. May advance diet. Advance diet as tolerated Increase PPI to twice daily long-term May add Carafate QID for 10 days Patient is agreeable for discharge. will hold aspirin/ eliquis temporarily/ will defer to PCP as to when to restart. (2) Chronic diastolic congestive heart failure: Heart failure with preserved ejection fraction Near euvolemic, clinically without chest pain/chest pressure. EKG is A-fib without ischemic changes Aspirin temporarily held for acute GI bleed (3) Atrial fibrillation with slow ventricular response: A-fib Anticoagulation temporarily held for acute melena and pending hemoglobin stability EKG: A-fib without ischemic changes resume home meds Plan Chronic stable issues Anxiety/depression: Wellbutrin resumed at discharge. Admission HPI Per Admitting Provider Tea is a 74-year-old female with a past medical history of heart failure with preserved ejection fraction, carcinoid, CKD 3, gastric bypass, ROMULO, non- Hodgkin's lymphoma, B-cell lymphoma, atrial fibrillation on Eliquis, TIA, hyperparathyroidism with daily aspirin use and no NSAID use who presented to the ER with melena. Seen at the bedside. She reports that for the last 3 days she has had black bowel movements similar to past GI bleeding. She reports she did have some suprapubic discomfort and burning with urination a week ago was diagnosed with a UTI was put on Augmentin. She reports since that time the dysuria has improved although she deals still have some midline low abdominal/suprapubic discomfort to palpation. Denies epigastric pain. Has been on Eliquis and aspirin, denies history of heart/vascular stents. She took her metoprolol this morning at around 6 AM. She has not had any lightheadedness or dizziness. No chest pain chest pressure shortness of breath or difficulty breathing. Other than the melena and abdominal discomfort, denies other symptoms. Denies NSAID use. Medical History: Reviewed Medications: Reviewed Surgical History: Reviewed Family history: Reviewed Allergies: Reviewed Social History: Denies tobacco/alcohol use Code Status: Full code Discharge Exam General: A&Ox3. NAD. Cooperative. HEENT: Atraumatic, normocephalic. Vision and hearing grossly intact. Pupils equal and reactive to light. Pulm: CTAB A&P. Cardiac: Irregularly irregular, soft systolic murmur. Radial pulses intact and symmetrical. Abdominal: Mild tenderness to palpation at the epigastrium, left lower quadrant. No rebound/guarding. Abdomen is not rigid Extremities: Some diffuse muscle soreness of the lower extremities without focal tenderness, no calf swelling or asymmetry. No ankle edema Discharge Plan Discharge Items Patient Disposition: Home - Self-Care Reason For Visit: MELENA, GIB Discharge Diagnosis: GI bleed. Activity: Resume your previous activity Non-emergency contact: Primary Care Provider Call non-emergency contact if: you have any medication questions Follow-up/Referrals: Ashwin Foster DO [Physician] - 09/30/24 8:20 am (Hospital follow up scheduled September 30 at 8:20 with Claritza Barnard at the [place] location on the 4th floor) Christopher Guevara MD [Primary Care Provider] - 09/22/24 10:30 am (Hospital follow up scheduled with MOLLY Geiger on September 22, 2024 at 10:30am.) Diet: Regular Addtl Attending Provider Instructions: Hold blood thinning medications until followup with PCP in 1-2 weeks. 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 Foster from [facility] TO DISCUSS possible video capsule endoscopy. This can be done at [place]. Continued follow up with your hepatology providers through [facility]. Pending Studies at Discharge: No Stand-Alone Forms: My [employer] [facility], Smoking Cessation Medications and DC Order Prescriptions: Continued cholecalciferol (vitamin D3) [Vitamin D3] 25 mcg (1,000 unit) capsule 2,000 unit PO DAILY Hold Instructions: weekly dose bumetanide 2 mg tablet 2 mg PO UD Rx Instructions: 2 mg po qam.May increase to BID prn for weight gain, SOB, swelling cyanocobalamin (vitamin B-12) 1,000 mcg/mL solution 1,000 mcg IM .COMPLEX PRN (Reason: B12 Deficiency ) Qty: 4 1RF Rx Instructions: 1,000 mcg intramuscularly every week x 4 weeks then once monthly thereafter; PRN; bupropion HCl 150 mg tablet extended release 24 hr 150 mg PO QAM Qty: 90 3RF metoprolol tartrate 50 mg tablet 50 mg PO BID Qty: 180 3RF ferrous sulfate [FeroSul] 325 mg (65 mg iron) tablet 325 mg PO DAILY oxycodone 5 mg tablet 5 mg PO UD PRN (Reason: pain) Rx Instructions: 5 mg po q6h prn last filled 01/17/24 atorvastatin 40 mg tablet 40 mg PO QAM Rx Instructions: TAKE 1 TABLET BY MOUTH DAILY IN THE MORNING Changed pantoprazole [Protonix] 40 mg tablet,delayed release (DR/EC) 40 mg PO BID Qty: 60 0RF Held aspirin 81 mg Tablet,Delayed Release (Dr/Ec) 81 mg PO QAM Qty: 30 0RF Hold Instructions: Resume on 09/30/24. Discontinued amoxicillin-pot clavulanate 875-125 mg tablet 1 tab PO BID 7 Days Qty: 14 0RF No Action magnesium 400 mg PO HS Rx Instructions: rEPORTED DOSE BY PT AT [facility] Eliquis 5 mg tablet 5 mg PO BID Hold Instructions: Resume on 09/30/24. Rx Instructions: 5 mg po bid filled 03/18/24 folic acid 1 mg tablet 1,000 mg PO QAM Patient Comments: CONFIRMED W/ 07/31 spironolactone [Aldactone] 25 mg tablet 12.5 mg PO UD Rx Instructions: 12.5 mg po qam sucralfate [Carafate] 1 gram tablet 1 g PO QID Qty: 36 0RF Discharge Orders: Discharge Order (Routine); Ordered 09/16/24 Ordered By: Devon Zabala/Other Patient Handouts: VRE Infection, Urinary Tract Infections in Women Admission Data Admit Date/Time: 09/14/24 14:14 Attending Provider: Devon Ventura Admit Provider: Jesse Fu Primary Care Provider: Christopher Guevara Other Providers: Jesse Fu Other Interventions: Discharge Summary Assessment (RN) Last Done: 09/16/24 12:38 Hospital Stay Data Consultations 09/14/24 14:19 ED Decision to Admit Stat Diagnostic Imagining Performed 09/14/24 13:49 CT Abd and Pelvis [CT abd pelvis IV con only] Stat Pending Results Patient Have Any Pending Studies at Discharge: No Discharge Instructions Given to Patient (Per Discharging Provider) Hold blood thinning medications until followup with PCP in 1-2 weeks. 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 Follow[address] with [address] Foster from [facility] TO DISCUSS possible video capsule endoscopy. This can be done at [place]. Continued follow up with your hepatology providers through [facility]. Total Time Total Time Spent Total Time Spent (In Minutes): 32 Coding Level of Care Code 16307 INP/OBS DISCH >30 MIN Diagnoses Acute GI bleeding K92.2 Chronic diastolic congestive heart failure I50.32 Atrial fibrillation with slow ventricular response I48.91
== END 2024-09-16 12:38 | disposition home or self-care (01) | DRG 378 ==
LOC: ED 10:11 → 2E 14:14 → SUATTDRO 14:14 → 2E 14:43
DX: N18.30 Chronic kidney disease, stage 3 unspecified; K74.60 Unspecified cirrhosis of liver; Z98.84 Bariatric surgery status; I50.32 Chronic diastolic (congestive) heart failure; C85.10 Unspecified B-cell lymphoma, unspecified site; Z86.73 Personal history of transient ischemic attack (TIA), and cerebral infarction without residual deficits; I13.0 Hypertensive heart and chronic kidney disease with heart failure and stage 1 through stage 4 chronic kidney disease, or unspecified chronic kidney disease; D64.9 Anemia, unspecified; Z79.82 Long term (current) use of aspirin; Z79.01 Long term (current) use of anticoagulants; K92.1 Melena; Z87.891 Personal history of nicotine dependence; Z83.3 Family history of diabetes mellitus; I48.91 Unspecified atrial fibrillation; G47.33 Obstructive sleep apnea (adult) (pediatric)

== ENCOUNTER 2025-01-30 12:35 | Observation (INO) ==
--- OUTSIDE RECORDS SUMMARY | 2025-01-30 12:41 | External Medical Summary | Continuity of Care Document ---
Author Name Unknown Organization [facility] Address [address] [place] [id number] Care Team Providers Care Materials Planner Name Role Phone Christopher Guevara Primary Care Physician [phone] Encounter [facility] [id number] Date(s): 01/22/25 - 01/22/[address] [id number] [phone] Discharge Disposition: Home or Self Care Attending Physician: MD Angelia, Rafael Rodriguez Referring Physician: MD Galan Jonathan Gibson Encounter Type: Outpatient Hospital Allergies, Adverse Reactions, Alerts No Known Allergies Immunizations Given and Recorded Vaccine Date Status Refusal Reason influenza virus vaccine, inactivated 1 09/13/16 Gi makenna 1Early/Late Reason: Other : Medications aspirin 81 mg oral delayed release tablet Start: 06/19/24 2:20:00 PM EDT, 1 tab, PO, Daily Start Date: 06/19/24 Status: Ordered Repeat number: 1 atorvastatin 40 mg oral tablet Start: 02/19/19 3:03:00 PM EDT, 1 tab, PO, Daily Start Date: 02/19/19 Status: Ordered Repeat number: 1 bumetanide 2 mg oral tablet Start: 06/19/24 2:20:00 PM EDT, 1 tab, PO, Daily Start Date: 06/19/24 Status: Ordered Repeat number: 1 buPROPion 150 mg/24 hours (XL) oral tablet, extended release Start: 12/29/21 1:54:00 PM EST, 1 tab, PO, Daily Start Date: 12/29/21 Status: Ordered Repeat number: 1 DilTIAZem (Eqv-Cardizem CD) 120 mg/24 hours oral capsule, extended release Start: 01/25/23 11:39:00 AM EST, 1 cap, PO, Daily Start Date: 01/25/23 Status: Ordered Repeat number: 1 Eliquis 5 mg oral tablet Start: 01/25/23 11:39:00 AM EST, 1 tab, PO, bid Start Date: 01/25/23 Status: Ordered Repeat number: 1 folic acid Start: 10/31/23 8:12:00 AM EST Start Date: 10/31/23 Status: Ordered Repeat number: 1 Lasix 40 mg oral tablet Start: 11/20/23 1:16:00 PM EST, 1 tab, PO, bid, Disp# 60 tab, Refills: 11, take 1 tab daily., Pharmacy: [facility] Start Date: 11/20/23 Status: Ordered Quantity: 60.0 Unit: tab Repeat number: 12 magnesium sulfate Start: 10/31/23 8:12:00 AM EST Start Date: 10/31/23 Status: Ordered Repeat number: 1 pantoprazole 40 mg oral delayed release tablet Start: 01/22/20 5:16:00 PM EST, 1 tab, PO, bid Start Date: 01/22/20 Status: Ordered Repeat number: 1 spironolactone 25 mg oral tablet Start: 06/19/24 2:19:00 PM EDT, 0.5 tab, PO, Daily Start Date: 06/19/24 Status: Ordered Repeat number: 1 Vitamin D3 Start: 11/16/22 2:07:00 PM EST, PO, Daily Start Date: 11/16/22 Status: Ordered Repeat number: 1 Problem List Condition Confirmation Course Effective Dates [...] specimens collected. Repeat 10 YRS for screening. Social History Social History Type Response Smoking Status Current every day li ght smoker Sex Female Sex Representation Female (finding) Patient Care team information Care Team Personnel Name: MOLLY Su Ann Smith Position: Nurse Pract - Surgery Oncology Member Role: Lifetime Relationship Address: [address] [place] [address] [place] [employer]: [phone] Name: MD Paola, Christopher Henderson Position: Referring DIRECT Member Role: Primary Care Provider Address: [address] [place] [id number] [place] Telecom: [phone] Name: MD Montano Jay D Position: Physician - Urology Member Role: Lifetime Relationship Address: [address] [place] [address] [place] Telecom: [phone] Care Team Related Persons Name: JAMILA TEMPLE Name: MARY JO MCKEON Insurance Providers Guarantor name: GUSTABO MCKEON Health Plan Information #: 1 Payer: MEDICARE Member Number: [id number] Policy Number: NA Group Number: NA Health Plan Information #: 2 Payer: [employer] Member Number: [id number] Policy Number: NA Group Number: NA
--- NOTE | 2025-01-30 12:52 | Emergency Department Note ---
Impression & Plan Acute GI bleeding, Dark stools, Cirrhosis, Elevated BUN, Hyperglycemia ED Provider Note NAME: GUSTABO MCKEON AGE: 74 SEX: F : 1950 ARRIVES VIA: Walk-In INFORMANT: Patient ED PROVIDER(S): Darius Zimmerman DO CHIEF COMPLAINT: Abdominal pain HPI: Patient is a 74-year-old female with past medical history of A-fib, upper GI bleed, CHF, B-cell lymphoma, TIA, on apixaban who presents to the ER for black stools for the past 3 weeks. She notes that she has been having some bright red blood in combination with this which has been going on for the past 5 weeks. She denies any headache or change in vision. No chest pain or shortness of breath. Mid abdominal pain which is constant for the past month. No dysuria, urgency, or frequency. No other exacerbating or remitting factors. ADDITIONAL HISTORY OBTAINED: Per HPI Chronic Medical/Social Conditions Affecting Care: Per HPI PAST MEDICAL HISTORY:See Below PAST SURGICAL HISTORY:See Below FAMILY HISTORY:See Below SOCIAL HISTORY:See Below HOME MEDICATIONS:See Below ALLERGIES:See Below VITALS:See Below PHYSICAL EXAMINATION: GENERAL: Sitting up in bed, alert, well appearing, well nourished, no distress, non-toxic EYE EXAM: normal conjunctiva. OROPHARYNX: mucous membranes are moist LUNGS: Clear to auscultation. Normal chest wall mechanics HEART: no murmurs, S1 normal and S2 normal ABDOMEN: abdomen soft, non-tender, normo-active bowel sounds, no masses, no rebound or guarding. UPPER EXTREMITIES: upper extremities are grossly normal. LOWER EXTREMITIES: No pitting edema. NEURO EXAM: Normal sensorium, cranial nerves II-XII grossly intact, normal speech, no gross weakness of arms, no gross weakness of legs. MEDICAL DECISION MAKING: Patient is a 74-year-old female who presents ER for the below stated complaint. IV was established and blood work was obtained. Labs show no significant leukocytosis or anemia. BMP with a slightly elevated creatinine 1.4. BUN was elevated at 41. Glucose elevated at 150. LFTs and bilirubin were unremarkable. Lipase normal. UA was clean. Patient was typed and screened. Rectal heme positive with bright red blood performed by myself. With a history of cirrhosis and recent dark tarry stools although hemoglobin is 15 I did discuss case with the hospitalist for observation as she is at a high risk especially in light of being on blood thinners. Consults/Care Managements Discussions: Per MDM Triage Nursing notes reviewed. Limited review of prior medical records performed Vital Signs: reviewed and remarkable for HTN Differential diagnosis: Differential diagnoses includes but is not limited to gastritis, peptic ulcer disease, GERD, gallbladder disease, pancreatitis, small bowel obstruction, appendicitis, diverticulitis, hernia, urinary tract infection, torsion, /ectopic (if female), perforation, trauma, infectious. ER treatment provided: See below Diagnostics interpreted by me include EKG and cardiac monitoring as listed below: -Cardiac Monitoring: An order was placed for continuous cardiac monitoring. The monitor shows a rate of 90 with sinus rhythm. -ECG: none -Laboratory studies:Interpreted by me as stated above in MDM and shown below. Imaging studies: Xrays: As interpreted by me:none CTs show: none Procedures:none Critical Care: None Past Med/Surg History Problem List (Updated 01/30/25 @ 17:49 by Darius Zimmerman DO) Hyperglycemia (Acute) Elevated BUN (Acute) Dark stools (Acute) Acute GI bleeding (Acute) Acute upper GI bleed (Acute) Atrial fibrillation with RVR Atrial fibrillation with slow ventricular response Chronic diastolic congestive heart failure B-cell lymphoma dx ~03/2022, no longer in chemo Abdominal pain (Acute) Hyperparathyroidism Physical deconditioning Urinary symptom or sign History of TIA (transient ischemic attack) Chronic cerebral ischemia Complicated migraine Lymphocele after surgical procedure Pancytopenia due to antineoplastic chemotherapy Non Hodgkin's lymphoma (Acute) Current use of terminal operations manager anticoagulation (Acute) A-fib (Acute) History of back problems Fecal incontinence Permanent atrial fibrillation Mesenteric mass Nephrolithiasis Exertional dyspnea Vitamin D deficiency (Acute) Ventral hernia (Acute) Sleep apnea (Acute) Mesenteric fibrosis (Acute) Leukopenia (Acute) BMI 36.0-36.9,adult (Acute) B12 deficiency Kidney stones hx and at present Lesion of ureter biopsy 12/29/2020 Cirrhosis (Acute) CKD (chronic kidney disease), stage III follows with [place] [facility] per pt Carcinoid tumor PET SCAN AT [facility]> "PLANS TO TREAT FOR B CELL LYMPHOMA SHOULD TREAT CARCINOID TUMOR" > resolved per pt Prediabetes pt unaware (HFpEF) heart failure with preserved ejection fraction f/[facility] her[facility]andez[facility] Medical History Nausea Non-Hodgkin lymphoma in remission Neutropenia Pancytopenia Current use of terminal operations manager anticoagulation Hx of pancreatitis History of anemia History of COVID-19 Sleep apnea Lymphoma Liver 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 Iron deficiency PFO (patent foramen ovale) Abdominal discomfort, epigastric Morbid obesity SOB (shortness of breath) on exertion History of skin cancer Cardiac murmur TIA (transient ischemic attack) Hyperlipemia Fatigue Permanent atrial fibrillation Mesenteric mass Depression Chronic pain of inguinal region Anticoagulant long-term use Dissection of vertebral artery GERD (gastroesophageal reflux disease) Hypertension Surgical History Port-A-Cath in place (12/10/22) History of bowel resection Hx of lymph node biopsy History of bone marrow biopsy S/P ureteral stent placement History of cystoscopy History of tubal ligation History of umbilical hernia repair History of colostomy reversal History of esophagogastroduodenoscopy (EGD) History of colonoscopy (05/2022) History of cardiac radiofrequency ablation History of cardioversion History of gastric bypass Hx of laparoscopy Hx of abdominal surgery History of colostomy H/O: hysterectomy Hx of removal of cyst (11/14/23) Hx of cholecystectomy Family History Grandmother Diabetes Hypertension Mother Heart disease Hypertension Grandfather Stomach cancer Hypertension Father Pancreatic cancer Hypertension Other No family history of adverse response to anesthesia Denies family history of Ovarian cancer Breast cancer Colorectal cancer Social History Smoking Status: Former smoker Tobacco Type: Cigarettes Age Started Using Tobacco: 20; Age Quit Using Tobacco: 42; packs per day: 1; Second Hand Exposure: No; Do You Dip or Chew Tobacco: No; Hx Alcohol Use: No Hx Substance Use: No Preferred Language: Samoan Communication Ability: Effective Visual Impairment: No Limitations Hearing Ability: Normal Surveyor Oil Well Directional Required: No Beliefs That Will Affect Care: None marital status: Current Living Situation: Spouse Current Living Situation Comment: home with 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 status: retired 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) How many Children do You have: 1 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 Feels Safe at Home: Yes Diet: regular caffeine: No Dental Care, Regularly: Yes Physical Activity Frequency: Does not Exercise Seatbelt Use: always Sunscreen Use: No Assistive Devices: Cane and Walker Allergies Allergies Allergy/AdvReac Type Severity Reaction Status Date / Time No Known Allergies Allergy Verified 12/30/24 14:01 Home Meds Home Medications Medication Instructions Recorded Confirmed cholecalciferol (vitamin D3) 25 2,000 unit PO DAILY 03/16/24 01/30/25 mcg (1,000 unit) capsule (Vitamin D3) atorvastatin 40 mg tablet 40 mg PO QAM 07/29/24 01/30/25 bumetanide 2 mg tablet 2 mg PO UD 08/05/24 01/30/25 oxycodone 5 mg tablet 5 mg PO Q6H PRN pain 09/14/24 01/30/25 apixaban 5 mg tablet (Eliquis) 5 mg PO BID 09/17/24 01/30/25 folic acid 1 mg tablet 1,000 mg PO QAM 09/17/24 01/30/25 magnesium 400 mg PO HS 09/17/24 01/30/25 spironolactone 25 mg tablet 12.5 mg PO QAM 09/17/24 01/30/25 (Aldactone) Previous Rx's Medication Instructions Recorded cyanocobalamin (vitamin B-12) 1,000 mcg IM .COMPLEX PRN B12 08/13/23 1,000 mcg/mL injection solution Deficiency #4 mL bupropion HCl 150 mg 24 hr tablet, 150 mg PO QAM #90 tabs 03/24/24 extended release metoprolol tartrate 50 mg tablet 50 mg PO BID #180 tabs 03/24/24 ferrous sulfate 325 mg (65 mg 325 mg PO DAILY #30 tabs 11/06/24 iron) tablet (FeroSul) pantoprazole 40 mg tablet,delayed 40 mg PO BID #180 tabs 12/07/24 release (Protonix) Results & Data (ED) Vital Signs Vital Signs - 24 hr 01/30/25 12:40 01/30/25 14:56 01/30/25 15:30 Temperature 36.9 C Temperature Source Temporal Artery Scan Pulse Rate 97 H Pulse Rate [Finger] 83 Respiratory Rate 20 18 Respiratory Effort / Characteristics Non-Labored Non-Labored Spontaneous Respiratory Depth Normal Normal Respiratory Pattern Regular Blood Pressure 141/88 H Blood Pressure [Right Arm] 136/86 Blood Pressure Mean 105 Blood Pressure Mean [Right Arm] 102 Pulse Oximetry 97 98 98 Oxygen Delivery Method Room Air Room Air Room Air Sepsis Recent Fever Within 48 Hours No Sepsis New/Unexplained Change in Mental Status N/A Sepsis Action Taken by Nursing No Action Required Laboratory Data 01/30/25 13:06 01/30/25 13:06 Lab Results 01/30/25 01/30/25 01/30/25 Range/Units 13:06 13:11 14:52 WBC 5.40 (4.8-10.8) K/ul RBC 4.41 (4.20-5.40) M/uL Hgb 15.2 (12.0-16.0) g/dl POC Hgb 15.0 (12.0-16.0) g/dl Hct 44.3 (37.0-47.0) % POC Hct 44 (37-47) % MCV 100.5 H (80.0-100.0) fL MCH 34.5 H (25.0-34.0) pg MCHC 34.3 (32.0-36.0) g/dL RDW Std Deviation 49.2 H (36.4-46.3) fL RDW Coeff of Rodrigo 13.3 (11.5-14.5) % Plt Count 173 (130-400) K/uL MPV 9.0 L (9.4-12.4) fL Immature Gran % (Auto) 0.4 % Neut % (Auto) 74.8 % Lymph % (Auto) 14.6 % [place] % (Auto) 8.9 % Eos % (Auto) 0.9 % Baso % (Auto) 0.4 % Neut # (Auto) 4.04 (1.40-6.50) K/uL Lymph # (Auto) 0.79 L (1.20-3.40) K/uL [place] # (Auto) 0.48 (0.11-0.59) K/uL Eos # (Auto) 0.05 (0.00-0.50) K/uL Baso # (Auto) 0.02 (0.00-0.20) K/uL Immature Gran # (Auto) 0.02 (0.01-0.20) K/uL POC Sodium 141 (135-144) mmol/L Sodium 140 (136-145) mmol/L POC Potassium 3.5 (3.3-5.0) mmol/L Potassium 3.6 (3.5-5.1) mmol/L POC Chloride 106 (101-112) mmol/L Chloride 107 (98-107) mmol/L Carbon Dioxide 26 (21-32) mmol/L POC Total CO2 23 L (24-31) mmol/L Anion Gap 7 (3-11) POC Anion Gap 16.0 (16-25) mmol/L POC BUN 38 H (7-18) mg/dl BUN 41 H (6-23) mg/dl Creatinine 1.44 H (0.6-1.2) mg/dl POC Creatinine 1.5 H (0.6-1.3) mg/dl Est Cr Clr Drug Dosing 39.6 ml/min eGFR 38.64 BUN/Creatinine Ratio 28.5 H (10-20) Glucose 150 H (70-99(Fasting)) mg/dl POC Glucose (other) 149 H (70-99) mg/dl Calcium 8.3 L (8.6-10.3) mg/dl POC Ioniz Calcium Stella 1.08 L (1.12-1.32) mmol/l Total Bilirubin 1.1 H (0.2-1.0) mg/dl AST 20 (13-39) U/L ALT 16 (7-52) U/L Alkaline Phosphatase 107 H (34-104) U/L Total Protein 6.1 (6.0-8.3) gm/dl Albumin 3.6 (3.4-5.0) gm/dl Globulin 2.5 (2.5-4.0) gm/dl Albumin/Globulin Ratio 1.4 (0.9-2) Lipase 40 (11-82) U/L Urine Color Yellow Urine Appearance Clear (Clear) Urine pH 5.5 (4.5-7.5) Ur Specific [place] 1.011 (1.000-1.030) Urine Protein Negative (Negative) Urine Glucose (UA) Negative (Negative) Urine Ketones Negative (Negative) Urine Blood Negative (Negative) Urine Nitrite Negative (Negative) Urine Bilirubin Negative (Negative) Urine Urobilinogen Negative (Negative) Ur Leukocyte Esterase Negative (Negative) Blood Type A Positive Antibody Screen NEGATIVE Administered Medications Discontinued Medications Ioversol (Optiray 320 100ml) 93 ml IV ONCE ONE Stop: 01/30/25 13:31 Last Admin: 01/30/25 13:31 Dose: 93 ml Documented By: EDK Imaging Data Radiologist's Impression: Abdomen/Pelvis CT 01/30/25 12:49 CT OF THE ABDOMEN AND PELVIS WITH CONTRAST CLINICAL HISTORY: Mid abdominal pain for one month. History of lymphoma. COMPARISON STUDY: CT of the abdomen and pelvis September 14, 2024. TECHNIQUE: Following IV administration of 93 mL of Optiray, axial images of the abdomen and pelvis were obtained from the lung bases to the proximal femurs. Images were reviewed in the axial, sagittal, and coronal planes. IV contrast was administered without complication. Automated exposure control was utilized for the study. A dose lowering technique was utilized adhering to the principles of ALARA. CT DOSE: 1319.76 mGy.cm FINDINGS: A trace right pleural effusion is unchanged. No pneumatosis, free air or portal venous gas is present. There are no hepatic lesions. There is no biliary ductal dilatation status post cholecystectomy. There is no evidence for a bowel obstruction status post Ngoc-en-Y gastric bypass. Multiple left renal calculi measure up to 8 mm. There are no ureteral calculi. There is no hydronephrosis. Mild stranding within the right renal hilum and mesentery is unchanged. Caliber and wall thickness of small and large bowel are normal. There is colonic diverticulosis without evidence for acute diverticulitis. Numerous low-attenuation bilateral renal lesions favor cysts. Multiple subcentimeter renal lesions are too small to characterize. There is an enhancing 1.9 x 1.8 cm nodule within the right hemipelvis on image 259 of 349, along anterior aspect of the distal right ureter. In retrospect, this was likely present on prior exam but was tiny in size. Uterus is surgically absent. The ovaries are not visualized. Otherwise, the appearance of the abdomen and pelvis is unchanged. IMPRESSION: 1. No evidence for a bowel obstruction status post Ngoc-en-Y gastric bypass. 2. 1.9 x 1.8 cm enhancing nodule within the right hemipelvis, along anterior aspect of the distal right ureter, as described above. This is pathologically indeterminate and a neoplastic etiology cannot be excluded, particularly given the history of lymphoma. Nonemergent Oncology consultation is recommended. PET/CT could be considered as well. 3. Left nephrolithiasis. No ureteral calculi. No hydronephrosis. ACT 112: Positive. There are findings on this exam that require communication between the performing entity and the patient following Patient Test Result Information Act ([place] Act 112) guidelines. Electronically signed by: Robe Patterson M.D. 01/30/2025 1:50 PM Discharge Plan Visit Data Chief Complaint: Abdominal Pain Stated Complaint: BLOOD IN STOOL, STOMACH PAIN ED Provider: Darius Zimmerman Discharge Problem: Acute GI bleeding, Dark stools, Cirrhosis, Elevated BUN, Hyperglycemia Forms Stand Alone Forms: My [employer] Prescriptions Prescriptions: No Action cholecalciferol (vitamin D3) [Vitamin D3] 25 mcg (1,000 unit) capsule 2,000 unit PO DAILY Hold Instructions: weekly dose bumetanide 2 mg tablet 2 mg PO UD Rx Instructions: 2 mg po qam.May increase to BID prn for weight gain, SOB, swelling magnesium 400 mg PO HS Eliquis 5 mg tablet 5 mg PO BID Hold Instructions: HOLD TILL PCP Rx Instructions: 5 mg po bid filled 03/18/24 folic acid 1 mg tablet 1,000 mg PO QAM Patient Comments: CONFIRMED W/ 07/31 spironolactone [Aldactone] 25 mg tablet 12.5 mg PO QAM ferrous sulfate [FeroSul] 325 mg (65 mg iron) tablet 325 mg PO DAILY Qty: 30 3RF pantoprazole [Protonix] 40 mg tablet,delayed release (DR/EC) 40 mg PO BID Qty: 180 3RF cyanocobalamin (vitamin B-12) 1,000 mcg/mL solution 1,000 mcg IM .COMPLEX PRN (Reason: B12 Deficiency ) Qty: 4 1RF Rx Instructions: 1,000 mcg intramuscularly every week x 4 weeks then once monthly thereafter; PRN; bupropion HCl 150 mg tablet extended release 24 hr 150 mg PO QAM Qty: 90 3RF metoprolol tartrate 50 mg tablet 50 mg PO BID Qty: 180 3RF oxycodone 5 mg tablet 5 mg PO Q6H PRN (Reason: pain) atorvastatin 40 mg tablet 40 mg PO QAM Rx Instructions: TAKE 1 TABLET BY MOUTH DAILY IN THE MORNING Referrals Referrals: Christopher Guevara MD [Primary Care Provider] - Discharge Problem: Cirrhosis Qualifiers: Hepatic cirrhosis type: unspecified hepatic cirrhosis Ascites presence: u nspecified Qualified Code(s): K74.60 - Unspecified cirrhosis of liver
[2025-01-30 13:24] LABS: iSTAT Creatinine 1.5 mg/dl (0.6-1.3); iSTAT Ionized Calcium 1.08 mmol/l (1.12-1.32); iSTAT Potassium 3.5 mmol/L (3.3-5.0)
[2025-01-30 13:29] LABS: Basophils # (auto) 0.02 K/uL (0.00-0.20); Basophils % (auto) 0.4 %; Eosinophils # (auto) 0.05 K/uL (0.00-0.50); Eosinophils % (auto) 0.9 %; Hematocrit (blood only) 44.3 % (37.0-47.0); Hemoglobin 15.2 g/dl (12.0-16.0); Immature Granulocytes # (auto) 0.02 K/uL (0.01-0.20); Immature Granulocytes % (auto) 0.4 %; Lymphocytes # (auto) 0.79 K/uL (1.20-3.40); Lymphocytes % (auto) 14.6 %; Mean Corpuscular Hemoglobin 34.5 pg (25.0-34.0); Mean Corpuscular Hgb Conc 34.3 g/dL (32.0-36.0); Mean Corpuscular Volume 100.5 fL (80.0-100.0); Monocytes # (auto) 0.48 K/uL (0.11-0.59); Monocytes % (auto) 8.9 %; Neutrophils # (auto) 4.04 K/uL (1.40-6.50); Neutrophils % (auto) 74.8 %; Platelet Count 173 K/uL (130-400); RDW Coefficient of Variation 13.3 % (11.5-14.5); RDW Standard Deviation 49.2 fL (36.4-46.3); Red Blood Count 4.41 M/uL (4.20-5.40)
[2025-01-30] MEDS: OPTIRAY 320 100ml IV ONE (13:31)
[2025-01-30 13:46] LABS: Albumin Globulin Ratio 1.4 (0.9-2); Albumin Level 3.6 gm/dl (3.4-5.0); BUN Creatinine Ratio 28.5 (10-20); Bilirubin,Total 1.1 mg/dl (0.2-1.0); Calcium 8.3 mg/dl (8.6-10.3); Creatinine Clr Calc Pharmacy 39.6 ml/min; Globulin 2.5 gm/dl (2.5-4.0); Potassium 3.6 mmol/L (3.5-5.1); Total Protein 6.1 gm/dl (6.0-8.3)
--- NOTE | 2025-01-30 13:52 | CT Scan Report ---
CT OF THE ABDOMEN AND PELVIS WITH CONTRAST CLINICAL HISTORY: Mid abdominal pain for one month. History of lymphoma. COMPARISON STUDY: CT of the abdomen and pelvis September 14, 2024. TECHNIQUE: Following IV administration of 93 mL of Optiray, axial images of the abdomen and pelvis we re obtained from the lung bases to the proximal femurs. Images were reviewed in the axial, sagittal, and coronal planes. IV contrast was administered without complication. Automated exposure control wa s utilized for the study. A dose lowering technique was utilized adhering to the principles of ALARA . CT DOSE: 1319.76 mGy.cm FINDINGS: A trace right pleural effusion is unchanged. No pneumatosis, free air or portal venous gas is present. There are no hepatic lesions. There is no biliary ductal dilatation status post cholecyst ectomy. There is no evidence for a bowel obstruction status post Ngoc-en-Y gastric bypass. Multiple l eft renal calculi measure up to 8 mm. There are no ureteral calculi. There is no hydronephrosis. Mild stranding within the right renal hilum and mesentery is unchanged. Caliber and wall thickness of sma ll and large bowel are normal. There is colonic diverticulosis without evidence for acute diverticuli tis. Numerous low-attenuation bilateral renal lesions favor cysts. Multiple subcentimeter renal lesio ns are too small to characterize. There is an enhancing 1.9 x 1.8 cm nodule within the right hemipelv is on image 259 of 349, along anterior aspect of the distal right ureter. In retrospect, this was lik elliot present on prior exam but was tiny in size. Uterus is surgically absent. The ovaries are not visu alized. Otherwise, the appearance of the abdomen and pelvis is unchanged. IMPRESSION: 1. No evidence for a bowel obstruction status post Ngoc-en-Y gastric bypass. 2. 1.9 x 1.8 cm enhancing nodule within the right hemipelvis, along anterior aspect of the distal rig ht ureter, as described above. This is pathologically indeterminate and a neoplastic etiology cannot be excluded, particularly given the history of lymphoma. Nonemergent Oncology consultation is recomme nded. PET/CT could be considered as well. 3. Left nephrolithiasis. No ureteral calculi. No hydronephrosis. ACT 112: Positive. There are findings on this exam that require communication between the performing entity and the patient following Patient Test Result Information Act ([place] Act 112) guidelines. Electronically signed by: Robe Patterson M.D. 01/30/2025 1:50 PM
[2025-01-30 15:15] LABS: Appearance Urine Clear (Clear); Bilirubin Urine Negative (Negative); Blood Urine Negative (Negative); Color Urine Yellow; Glucose Urine UA Negative (Negative); Ketones Urine Negative (Negative); Leukocyte Esterase Urine Negative (Negative); Nitrite Urine Negative (Negative); Protein Urine Negative (Negative); Specific Gravity Urine 1.011 (1.000-1.030); Urobilinogen Urine Negative (Negative); pH Urine 5.5 (4.5-7.5)
--- NOTE | 2025-01-30 15:54 | History & Physical Report ---
Date of Service January 30, 2025 Assessment & Plan (1) Acute upper GI bleed: (2) Chronic diastolic congestive heart failure: (3) B-cell lymphoma: (4) Abdominal pain: (5) Permanent atrial fibrillation: Plan 74 yo F with PMHx of AFib on Apixaban, UGIB, CHF, B-cell lymphoma, TIA who pre sents to ER for evaluation of black stools for the past 4 weeks along with 1 episode of BRBPR. She is also concerned about pencil thin stools. #Melena #BRBPR #Pencil thin stool - pt currently hemodynamically stable - of note, pt does take iron, which could be causing melena. BRBPR could be due to internal hemorrhoids. Will need follow up regarding pencil thin stool - admit to obs - clear liquid diet at this time - Hgb wnl, trend q8h - GI consulted - IV PPI - hold Eliquis #Right pelvic mass #h/o lymphoma - 1.9 x 1.8 cm mass - pt follows with oncology as outpatient for hx of lymphoma, appointment coming up in 1 week #Afib - hold eliquis - cont metoprolol, monitor BP closely #Chronic diastolic failure - hold diuretics x24 hrs #HLD - hold statin History of Present Illness Chief Complaint: Black stool, Pencil thin stool, and bright red blood in the toilet Primary Care Provider: Christopher Guevara MD 74 yo F with PMHx of AFib on Apixaban, UGIB, CHF, B-cell lymphoma, TIA who presents to ER for evaluation of black stools for the past 4 weeks. She came to the ED due to BRBPR, which she states she has not had before. She had single episode this morning. She also states she has intermittent pencil thin stool as well. She also notes that she is consistently leaking light brownish liquid from her rectum for which she requires pads. She has had multiple episodes of melena in the past. Attempt was made for capsule endoscopy, but this was aborted due to obstruction. She also has some pelvic pain and epigastric pain. Other than that, she has no other symptoms. She does take Eliquis, last dose this morning. Allergies Allergy/AdvReac Type Severity Reaction Status Date / Time No Known Allergies Allergy Verified 12/30/24 14:01 Home Medications Medication Instructions Recorded Confirmed Type cyanocobalamin (vitamin B-12) 1,000 mcg IM .COMPLEX PRN B12 08/13/23 01/30/25 Rx 1,000 mcg/mL injection solution Deficiency #4 mL cholecalciferol (vitamin D3) 25 2,000 unit PO DAILY 03/16/24 01/30/25 History mcg (1,000 unit) capsule (Vitamin D3) bupropion HCl 150 mg 24 hr tablet, 150 mg PO QAM #90 tabs 03/24/24 01/30/25 Rx extended release metoprolol tartrate 50 mg tablet 50 mg PO BID #180 tabs 03/24/24 01/30/25 Rx atorvastatin 40 mg tablet 40 mg PO QAM 07/29/24 01/30/25 History bumetanide 2 mg tablet 2 mg PO UD 08/05/24 01/30/25 History oxycodone 5 mg tablet 5 mg PO Q6H PRN pain 09/14/24 01/30/25 History apixaban 5 mg tablet (Eliquis) 5 mg PO BID 09/17/24 01/30/25 History folic acid 1 mg tablet 1,000 mg PO QAM 09/17/24 01/30/25 History magnesium 400 mg PO HS 09/17/24 01/30/25 History spironolactone 25 mg tablet 12.5 mg PO QAM 09/17/24 01/30/25 History (Aldactone) ferrous sulfate 325 mg (65 mg 325 mg PO DAILY #30 tabs 11/06/24 01/30/25 Rx iron) tablet (FeroSul) pantoprazole 40 mg tablet,delayed 40 mg PO BID #180 tabs 12/07/24 01/30/25 Rx release (Protonix) Past Med/Surg History Problem List Acute upper GI bleed (Acute) Atrial fibrillation with RVR Atrial fibrillation with slow ventricular response Chronic diastolic congestive heart failure B-cell lymphoma dx ~03/2022, no longer in chemo Abdominal pain (Acute) Hyperparathyroidism Physical deconditioning Urinary symptom or sign History of TIA (transient ischemic attack) Chronic cerebral ischemia Complicated migraine Lymphocele after surgical procedure Pancytopenia due to antineoplastic chemotherapy Non Hodgkin's lymphoma (Acute) Current use of fci anticoagulation (Acute) A-fib (Acute) History of back problems Fecal incontinence Permanent atrial fibrillation Mesenteric mass Nephrolithiasis Exertional dyspnea Vitamin D deficiency (Acute) Ventral hernia (Acute) Sleep apnea (Acute) Mesenteric fibrosis (Acute) Leukopenia (Acute) BMI 36.0-36.9,adult (Acute) B12 deficiency Kidney stones hx and at present Lesion of ureter biopsy 12/29/2020 Cirrhosis CKD (chronic kidney disease), stage III follows with [facility] per pt Carcinoid tumor PET SCAN AT [facility]> "PLANS TO TREAT FOR B CELL LYMPHOMA SHOULD TREAT CARCINOID TUMOR" > resolved per pt Prediabetes pt unaware (HFpEF) heart failure with preserved ejection fraction f/u dr. 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 Iron deficiency PFO (patent foramen ovale) Abdominal discomfort, epigastric Morbid obesity SOB (shortness of breath) on exertion History of skin cancer Cardiac murmur TIA (transient ischemic attack) Hyperlipemia Fatigue Permanent atrial fibrillation Mesenteric mass Depression Chronic pain of inguinal region Anticoagulant long-term use Dissection of vertebral artery GERD (gastroesophageal reflux disease) Hypertension Surgical History Port-A-Cath in place (12/10/22) History of bowel resection Hx of lymph node biopsy History of bone marrow biopsy S/P ureteral stent placement History of cystoscopy History of tubal ligation History of umbilical hernia repair History of colostomy reversal History of esophagogastroduodenoscopy (EGD) History of colonoscopy (05/2022) History of cardiac radiofrequency ablation History of cardioversion History of gastric bypass Hx of laparoscopy Hx of abdominal surgery History of colostomy H/O: hysterectomy Hx of removal of cyst (11/14/23) Hx of cholecystectomy Family History Grandmother Diabetes Hypertension Mother Heart disease Hypertension Grandfather Stomach cancer Hypertension Father Pancreatic cancer Hypertension Other No family history of adverse response to anesthesia Denies family history of Ovarian cancer Breast cancer Colorectal cancer Social History Smoking Status: Former smoker Tobacco Type: Cigarettes Age Started Using Tobacco: 20; Age Quit Using Tobacco: 42; packs per day: 1; Second Hand Exposure: No; Do You Dip or Chew Tobacco: No; Hx Alcohol Use: No Hx Substance Use: No Preferred Language: Swedish Communication Ability: Effective Visual Impairment: No Limitations Hearing Ability: Normal 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 Physical Exam Physical Exam: Gen: no acute distress, in bed comfortable HEENT: NC/AT, anicteric, MMM Lungs: CTAB CVS: s1s2nl, irregular Abd: normal bowel sounds, soft, mild soreness in the epigastric region Ext: no edema Results & Data Results & Data Vital Signs (Past 12 Hours) Vital Signs Temp Pulse Pulse Resp BP BP Pulse Ox 01/30/25 15:30 98 01/30/25 14:56 83 18 136/86 98 01/30/25 12:40 36.9 C 97 H 20 141/88 H 97 O2 Del Method 01/30/25 15:30 Room Air 01/30/25 14:56 Room Air 01/30/25 12:40 Room Air PG Care Time/CCT Total # of Minutes Spent Total Time Spent with Patient: Total time spent is greater than 50% in coordination of care (as documented) at patient's floor/unit and/or counseling patient: Coding Level of Care Code 12349 INT INP/OBS CARE 2/55MIN Diagnoses Acute upper GI bleed K92.2 Chronic diastolic congestive heart failure I50.32 B-cell lymphoma C85.10 Abdominal pain R10.9 Permanent atrial fibrillation I48.21
[2025-01-30] MEDS: ACETAMINOPHEN 325 MG TAB PO PRN (19:02)
[2025-01-30] MEDS: PANTOprazole 40 MG/10 ML SYR IV SCH (22:09)
[2025-01-30] MEDS: METOPROLOL TARTRATE 50 MG TAB PO SCH (22:09)
[2025-01-30] MEDS: NYSTATIN POWDER 15GM BTL EXT PRN (23:58)
[2025-01-31 03:21] VITALS: RESP 18
[2025-01-31 07:52] LABS: Hematocrit (blood only) 44.2 % (37.0-47.0); Hemoglobin 15.4 g/dl (12.0-16.0); Mean Corpuscular Hgb Conc 34.8 g/dL (32.0-36.0); Mean Corpuscular Volume 100.5 fL (80.0-100.0); Mean Platelet Volume 9.1 fL (9.4-12.4); Platelet Count 171 K/uL (130-400); RDW Coefficient of Variation 13.3 % (11.5-14.5); RDW Standard Deviation 49.6 fL (36.4-46.3); White Blood Count 3.04 K/ul (4.8-10.8)
[2025-01-31 08:09] LABS: BUN Creatinine Ratio 25.5 (10-20); Calcium 8.6 mg/dl (8.6-10.3); Creatinine Clr Calc Pharmacy 41.2 ml/min; Magnesium 1.9 mg/dl (1.7-2.4); Phosphorus 3.8 mg/dl (2.5-4.9); Potassium 3.8 mmol/L (3.5-5.1)
--- NOTE | 2025-01-31 09:32 | Gastrointestinal Consultation ---
Date of Consultation January 31, 2025 Assessment & Plan (1) Dark stools: Pleasant lady with a history of obscure GI blood loss who presents with black stools and hematochezia. I suspect her black stools are related to the iron pills she is taking and I don't think she is bleeding. Her hemoglobin is normal . Her bright red blood she is seeing in the toilet water is most likely bleeding from hemorrhoids. Again her hemoglobin is normal. She had a colonoscopy last year so we don't have to worry about malignancy. Bleeding from diverticular disease would drop her hemoglobin. I also reassured her that she does not need to worry about her "pencil thin stools". Again, she had a colonoscopy last year so we don't have to worry about malignancy altering the shape of her stools and stool shape is most dictated by the anal canal so worsening hemorrhoids could be contributing. As long as her hemoglobin does not drop she does not need any testing done. Consideration could be given to [facility] to evaluate small bowel as an outpatient since capsule study couldn't be done. No reason from my standpoint that she can't go home. History of Present Illness Reason for Consultation: bleeding Attending Physician: Siria Gil MD History of Present Illness 74 year old female admitted with "bleeding". She has a history of GI bleeding of unclear origin and failed patency test prior to capsule endoscopy so that procedure was not done. She came in because for the last month she has had either black or "half black" stools. Her frequency is the same as it always has been. She also has been seeing blood in the toilet water as well over the past week or so. She is also complaining of "pencil thin" stools. She does not have abdominal pain, heartburn or indigestion. Last December she had a colonoscopy which was normal except for internal hemorrhoids and an EGD which showed prior gastric bypass procedure. She had another EGD later in the year which showed gastric bypass with "friable mucosa" at the anastomosis. Admit hemoglobin is 15.4 Allergies Allergy/AdvReac Type Severity Reaction Status Date / Time No Known Allergies Allergy Verified 12/30/24 14:01 Home Medications Medication Instructions Recorded Confirmed Type cyanocobalamin (vitamin B-12) 1,000 mcg IM .COMPLEX PRN B12 08/13/23 01/30/25 Rx 1,000 mcg/mL injection solution Deficiency #4 mL cholecalciferol (vitamin D3) 25 2,000 unit PO DAILY 03/16/24 01/30/25 History mcg (1,000 unit) capsule (Vitamin D3) bupropion HCl 150 mg 24 hr tablet, 150 mg PO QAM #90 tabs 03/24/24 01/30/25 Rx extended release metoprolol tartrate 50 mg tablet 50 mg PO BID #180 tabs 03/24/24 01/30/25 Rx atorvastatin 40 mg tablet 40 mg PO QAM 07/29/24 01/30/25 History bumetanide 2 mg tablet 2 mg PO UD 08/05/24 01/30/25 History oxycodone 5 mg tablet 5 mg PO Q6H PRN pain 09/14/24 01/30/25 History apixaban 5 mg tablet (Eliquis) 5 mg PO BID 09/17/24 01/30/25 History folic acid 1 mg tablet 1,000 mg PO QAM 09/17/24 01/30/25 History magnesium 400 mg PO HS 09/17/24 01/30/25 History spironolactone 25 mg tablet 12.5 mg PO QAM 09/17/24 01/30/25 History (Aldactone) ferrous sulfate 325 mg (65 mg 325 mg PO DAILY #30 tabs 11/06/24 01/30/25 Rx iron) tablet (FeroSul) pantoprazole 40 mg tablet,delayed 40 mg PO BID #180 tabs 12/07/24 01/30/25 Rx release (Protonix) Patient History Medical History Nausea Non-Hodgkin lymphoma in remission Neutropenia Pancytopenia Current use of superintendent container terminal anticoagulation Hx of pancreatitis no episodes since Jul 2023 History of anemia IRON INFUSIONS IN PAST History of COVID-19 07/2022 > RESOLVED Sleep apnea NO DEVICE Lymphoma hx 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 Brewer > med controlled Mesenteric mass recent PET scan --- RECENT B CELL LYMPHOMA CONFIRMED, growth has recently stopped due to chemo Depression Chronic pain of inguinal region Anticoagulant long-term use Dissection of vertebral artery pt unsure/unaware GERD (gastroesophageal reflux disease) Hypertension Surgical History Port-A-Cath in place (12/10/22) Access port placement and use of fluoroscopy. Dr. Leger History of bowel resection WITH COLOSTOMY R/T SBO > colostomy reversed Hx of lymph node biopsy groin area History of bone marrow biopsy S/P ureteral stent placement History of cystoscopy History of tubal ligation History of umbilical hernia repair History of colostomy reversal History of esophagogastroduodenoscopy (EGD) History of colonoscopy (05/2022) History of cardiac radiofrequency ablation D/T AFIB - PT REPORTS HAD 1 BUT MAYBE 2 - NOT SURE DATES ([facility]) History of cardioversion multiple History of gastric bypass Hx of laparoscopy Hx of abdominal surgery FOR REMOVAL OF CYST - PT NOT SURE TYPE History of colostomy r/t bowel blockage H/O: hysterectomy Hx of removal of cyst (11/14/23) FINAL DIAGNOSIS In office procedure Dr. Hernandez Skin, left flank mass, excision: - Epidermal inclusion cyst Hx of cholecystectomy Family History Grandmother Diabetes Hypertension Mother Heart disease Hypertension Grandfather Stomach cancer Hypertension Father , early 80s of pancreatic cancer Pancreatic cancer Hypertension Other No family history of adverse response to anesthesia Denies family history of Ovarian cancer Breast cancer Colorectal cancer Social History Smoking Status: Former smoker Tobacco Type: Cigarettes Age Started Using Tobacco: 20; Age Quit Using Tobacco: 42; packs per day: 1; Smoking End Date: 20 years ago; Second Hand Exposure: No; Do You Dip or Chew Tobacco: No; Tobacco Cessation Education Requested by Patient: No Hx Alcohol Use: No Hx Substance Use: No Preferred Language: Amharic Communication Ability: Effective Visual Impairment: No Limitations Hearing Ability: Normal Occupational Therapy Program Director Required: No Beliefs That Will Affect Care: None marital status: Current Living Situation: Spouse Current Living Situation Comment: at home with 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 status: retired 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) How many Children do You have: 1 Other 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 Helps Us Care for You: No 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 Feels Safe at Home: Yes Safety Concerns: Feels Safe At This Time Diet: regular caffeine: No Dental Care, Regularly: Yes Physical Activity Frequency: Does not Exercise Seatbelt Use: always Sunscreen Use: No Assistive Devices: None Assistive Devices Comment: glasses for reading only Review of Systems Review of Systems: All systems reviewed & are unremarkable except as noted in HPI & below Physical Exam Physical Exam: Pleasant woman in no distress Constitutional: WD/WN, vitals as above Neck: trachea midline, no thyromegaly Respiratory: normal respiratory effort, lungs clear to auscultation Cardiovascular: RRR, no murmur, no edema Gastrointestinal (Abdomen): normal bowel sounds, soft, nontender, no hepatosplenomegaly Results & Data Vital Signs (Past 12 Hours) Vital Signs Temp Pulse Pulse Resp BP Pulse Ox O2 Del Method 01/31/25 07:31 36.4 C L 87 18 105/70 93 Room Air 01/31/25 07:14 Room Air 01/31/25 02:59 36.3 C L 67 18 118/80 94 Room Air 01/30/25 21:45 88 Laboratory Results 01/31/25 01/30/25 01/30/25 Range/Units 07:33 23:00 14:52 WBC 3.04 L (4.8-10.8) K/ul RBC 4.40 (4.20-5.40) M/uL Hgb 15.4 14.8 (12.0-16.0) g/dl POC Hgb (12.0-16.0) g/dl Hct 44.2 (37.0-47.0) % POC Hct (37-47) % MCV 100.5 H (80.0-100.0) fL MCH 35.0 H (25.0-34.0) pg MCHC 34.8 (32.0-36.0) g/dL RDW Std Deviation 49.6 H (36.4-46.3) fL RDW Coeff of Rodrigo 13.3 (11.5-14.5) % Plt Count 171 (130-400) K/uL MPV 9.1 L (9.4-12.4) fL Immature Gran % (Auto) % Neut % (Auto) % Lymph % (Auto) % Hood % (Auto) % Eos % (Auto) % Baso % (Auto) % Neut # (Auto) (1.40-6.50) K/uL Lymph # (Auto) (1.20-3.40) K/uL Hood # (Auto) (0.11-0.59) K/uL Eos # (Auto) (0.00-0.50) K/uL Baso # (Auto) (0.00-0.20) K/uL Immature Gran # (Auto) (0.01-0.20) K/uL POC Sodium (135-144) mmol/L Sodium 141 (136-145) mmol/L POC Potassium (3.3-5.0) mmol/L Potassium 3.8 (3.5-5.1) mmol/L POC Chloride (101-112) mmol/L Chloride 106 (98-107) mmol/L Carbon Dioxide 29 (21-32) mmol/L POC Total CO2 (24-31) mmol/L Anion Gap 6 (3-11) POC Anion Gap (16-25) mmol/L POC BUN (7-18) mg/dl BUN 35 H (6-23) mg/dl Creatinine 1.37 H (0.6-1.2) mg/dl POC Creatinine (0.6-1.3) mg/dl Est Cr Clr Drug Dosing 41.2 ml/min eGFR 41.03 BUN/Creatinine Ratio 25.5 H (10-20) Glucose 103 H (70-99(Fasting)) mg/dl POC Glucose (other) (70-99) mg/dl Calcium 8.6 (8.6-10.3) mg/dl POC Ioniz Calcium Stella (1.12-1.32) mmol/l Phosphorus 3.8 (2.5-4.9) mg/dl Magnesium 1.9 (1.7-2.4) mg/dl Total Bilirubin (0.2-1.0) mg/dl AST (13-39) U/L ALT (7-52) U/L Alkaline Phosphatase (34-104) U/L Total Protein (6.0-8.3) gm/dl Albumin (3.4-5.0) gm/dl Globulin (2.5-4.0) gm/dl Albumin/Globulin Ratio (0.9-2) Lipase (11-82) U/L Urine Color Yellow Urine Appearance Clear (Clear) Urine pH 5.5 (4.5-7.5) Ur Specific [place] 1.011 (1.000-1.030) Urine Protein Negative (Negative) Urine Glucose (UA) Negative (Negative) Urine Ketones Negative (Negative) Urine Blood Negative (Negative) Urine Nitrite Negative (Negative) Urine Bilirubin Negative (Negative) Urine Urobilinogen Negative (Negative) Ur Leukocyte Esterase Negative (Negative) Blood Type Antibody Screen 01/30/25 01/30/25 Range/Units 13:11 13:06 WBC 5.40 (4.8-10.8) K/ul RBC 4.41 (4.20-5.40) M/uL Hgb 15.2 (12.0-16.0) g/dl POC Hgb 15.0 (12.0-16.0) g/dl Hct 44.3 (37.0-47.0) % POC Hct 44 (37-47) % MCV 100.5 H (80.0-100.0) fL MCH 34.5 H (25.0-34.0) pg MCHC 34.3 (32.0-36.0) g/dL RDW Std Deviation 49.2 H (36.4-46.3) fL RDW Coeff of Rodrigo 13.3 (11.5-14.5) % Plt Count 173 (130-400) K/uL MPV 9.0 L (9.4-12.4) fL Immature Gran % (Auto) 0.4 % Neut % (Auto) 74.8 % Lymph % (Auto) 14.6 % Hood % (Auto) 8.9 % Eos % (Auto) 0.9 % Baso % (Auto) 0.4 % Neut # (Auto) 4.04 (1.40-6.50) K/uL Lymph # (Auto) 0.79 L (1.20-3.40) K/uL Hood # (Auto) 0.48 (0.11-0.59) K/uL Eos # (Auto) 0.05 (0.00-0.50) K/uL Baso # (Auto) 0.02 (0.00-0.20) K/uL Immature Gran # (Auto) 0.02 (0.01-0.20) K/uL POC Sodium 141 (135-144) mmol/L Sodium 140 (136-145) mmol/L POC Potassium 3.5 (3.3-5.0) mmol/L Potassium 3.6 (3.5-5.1) mmol/L POC Chloride 106 (101-112) mmol/L Chloride 107 (98-107) mmol/L Carbon Dioxide 26 (21-32) mmol/L POC Total CO2 23 L (24-31) mmol/L Anion Gap 7 (3-11) POC Anion Gap 16.0 (16-25) mmol/L POC BUN 38 H (7-18) mg/dl BUN 41 H (6-23) mg/dl Creatinine 1.44 H (0.6-1.2) mg/dl POC Creatinine 1.5 H (0.6-1.3) mg/dl Est Cr Clr Drug Dosing 39.6 ml/min eGFR 38.64 BUN/Creatinine Ratio 28.5 H (10-20) Glucose 150 H (70-99(Fasting)) mg/dl POC Glucose (other) 149 H (70-99) mg/dl Calcium 8.3 L (8.6-10.3) mg/dl POC Ioniz Calcium Stella 1.08 L (1.12-1.32) mmol/l Phosphorus (2.5-4.9) mg/dl Magnesium (1.7-2.4) mg/dl Total Bilirubin 1.1 H (0.2-1.0) mg/dl AST 20 (13-39) U/L ALT 16 (7-52) U/L Alkaline Phosphatase 107 H (34-104) U/L Total Protein 6.1 (6.0-8.3) gm/dl Albumin 3.6 (3.4-5.0) gm/dl Globulin 2.5 (2.5-4.0) gm/dl Albumin/Globulin Ratio 1.4 (0.9-2) Lipase 40 (11-82) U/L Urine Color Urine Appearance (Clear) Urine pH (4.5-7.5) Ur Specific [place] (1.000-1.030) Urine Protein (Negative) Urine Glucose (UA) (Negative) Urine Ketones (Negative) Urine Blood (Negative) Urine Nitrite (Negative) Urine Bilirubin (Negative) Urine Urobilinogen (Negative) Ur Leukocyte Esterase (Negative) Blood Type A Positive Antibody Screen NEGATIVE Diagnostic Findings Abdomen/Pelvis CT 01/30/25 12:49 CT OF THE ABDOMEN AND PELVIS WITH CONTRAST CLINICAL HISTORY: Mid abdominal pain for one month. History of lymphoma. COMPARISON STUDY: CT of the abdomen and pelvis September 14, 2024. TECHNIQUE: Following IV administration of 93 mL of Optiray, axial images of the abdomen and pelvis were obtained from the lung bases to the proximal femurs. Images were reviewed in the axial, sagittal, and coronal planes. IV contrast was administered without complication. Automated exposure control was utilized for the study. A dose lowering technique was utilized adhering to the principles of ALARA. CT DOSE: 1319.76 mGy.cm FINDINGS: A trace right pleural effusion is unchanged. No pneumatosis, free air or portal venous gas is present. There are no hepatic lesions. There is no biliary ductal dilatation status post cholecystectomy. There is no evidence for a bowel obstruction status post Ngoc-en-Y gastric bypass. Multiple left renal calculi measure up to 8 mm. There are no ureteral calculi. There is no hydronephrosis. Mild stranding within the right renal hilum and mesentery is unchanged. Caliber and wall thickness of small and large bowel are normal. There is colonic diverticulosis without evidence for acute diverticulitis. Numerous low-attenuation bilateral renal lesions favor cysts. Multiple subcentimeter renal lesions are too small to characterize. There is an enhancing 1.9 x 1.8 cm nodule within the right hemipelvis on image 259 of [id number], along anterior aspect of the distal right ureter. In retrospect, this was likely present on prior exam but was tiny in size. Uterus is surgically absent. The ovaries are not visualized. Otherwise, the appearance of the abdomen and pelvis is unchanged. IMPRESSION: 1. No evidence for a bowel obstruction status post Ngoc-en-Y gastric bypass. 2. 1.9 x 1.8 cm enhancing nodule within the right hemipelvis, along anterior aspect of the distal right ureter, as described above. This is pathologically indeterminate and a neoplastic etiology cannot be excluded, particularly given the history of lymphoma. Nonemergent Oncology consultation is recommended. PET/CT could be considered as well. 3. Left nephrolithiasis. No ureteral calculi. No hydronephrosis. ACT 112: Positive. There are findings on this exam that require communication between the performing entity and the patient following Patient Test Result Information Act ([place] Act 112) guidelines. Electronically signed by: Robe Patterson M.D. 01/30/2025 1:50 PM
[2025-01-31 11:24] VITALS: PULSE 93; TEMP 98.1; O2SAT 92
--- NOTE | 2025-01-31 11:27 | Discharge Summary ---
Discharge Summary Date of Service January 31, 2025 Principal Dx & Hospital Course #1 = Principal Diagnosis (1) Acute upper GI bleed: (2) Chronic diastolic congestive heart failure: (3) B-cell lymphoma: (4) Abdominal pain: (5) Permanent atrial fibrillation: Plan 74 yo F with PMHx of AFib on Apixaban, UGIB, CHF, B-cell lymphoma, TIA who presents to ER for evaluation of black stools for the past 4 weeks along with 1 episode of BRBPR. She is also concerned about pencil thin stools. #Melena #BRBPR #Pencil thin stool - pt currently hemodynamically stable - Hgb unchanged - GI recs appreciated, agreed that black stool is from iron and BRBPR is likely from internal hemorrhoids. Also added that iven normal C-scope last year, stool caliber of no concern and cleared pt to resume eliquis #Right pelvic mass #h/o lymphoma - 1.9 x 1.8 cm mass, discussed with pt and will follow up with her oncologist - pt follows with oncology as outpatient for hx of lymphoma, appointment coming up in 1 week #Afib - cont eliquis on discharge - cont metoprolol, monitor BP closely #Chronic diastolic failure - resume home meds #HLD - cont statin Admission HPI Per Admitting Provider 74 yo F with PMHx of AFib on Apixaban, UGIB, CHF, B-cell lymphoma, TIA who presents to ER for evaluation of black stools for the past 4 weeks. She came to the ED due to BRBPR, which she states she has not had before. She had single episode this morning. She also states she has intermittent pencil thin stool as well. She also notes that she is consistently leaking light brownish liquid from her rectum for which she requires pads. She has had multiple episodes of melena in the past. Attempt was made for capsule endoscopy, but this was aborted due to obstruction. She also has some pelvic pain and epigastric pain. Other than that, she has no other symptoms. She does take Eliquis, last dose this morning. Discharge Exam Gen: no acute distress, in bed comfortable HEENT: NC/AT, anicteric, MMM Lungs: CTAB CVS: [id number], irregular Abd: normal bowel sounds, soft, mild soreness in the epigastric region Ext: no edema Discharge Plan Discharge Items Patient Disposition: Home - Self-Care Reason For Visit: MELENA Discharge Diagnosis: Internal hemorrhoidal bleed Activity: Resume your previous activity Non-emergency contact: Primary Care Provider Call non-emergency contact if: you have any medication questions and your symptoms worsen Follow-up/Referrals: Christopher Guevara MD [Primary Care Provider] - Diet: Heart Healthy Addtl Attending Provider Instructions: Follow with PCP as outpatient Follow with GI as outpatient Please discuss with your Oncologist about the mass in the right pelvis area Pending Studies at Discharge: No Stand-Alone Forms: My [employer] Smoking Cessation Medications and DC Order Prescriptions: Continued cholecalciferol (vitamin D3) [Vitamin D3] 25 mcg (1,000 unit) capsule 2,000 unit PO DAILY Hold Instructions: weekly dose bumetanide 2 mg tablet 2 mg PO UD Rx Instructions: 2 mg po qam.May increase to BID prn for weight gain, SOB, swelling magnesium 400 mg PO HS Eliquis 5 mg tablet 5 mg PO BID Hold Instructions: HOLD TILL PCP Rx Instructions: 5 mg po bid filled 03/18/24 folic acid 1 mg tablet 1,000 mg PO QAM Patient Comments: CONFIRMED W/ 07/31 spironolactone [Aldactone] 25 mg tablet 12.5 mg PO QAM ferrous sulfate [FeroSul] 325 mg (65 mg iron) tablet 325 mg PO DAILY Qty: 30 3RF pantoprazole [Protonix] 40 mg tablet,delayed release (DR/EC) 40 mg PO BID Qty: 180 3RF cyanocobalamin (vitamin B-12) 1,000 mcg/mL solution 1,000 mcg IM .COMPLEX PRN (Reason: B12 Deficiency ) Qty: 4 1RF Rx Instructions: 1,000 mcg intramuscularly every week x 4 weeks then once monthly thereafter; PRN; bupropion HCl 150 mg tablet extended release 24 hr 150 mg PO QAM Qty: 90 3RF metoprolol tartrate 50 mg tablet 50 mg PO BID Qty: 180 3RF oxycodone 5 mg tablet 5 mg PO Q6H PRN (Reason: pain) atorvastatin 40 mg tablet 40 mg PO QAM Rx Instructions: TAKE 1 TABLET BY MOUTH DAILY IN THE MORNING Discharge Orders: Discharge Order (Routine); Ordered 01/31/25 Ordered By: Siria Gil Admission Data Admit Date/Time: 01/30/25 16:55 Attending Provider: Siria Gil Admit Provider: Siria Gil Primary Care Provider: Christopher Guevara Other Providers: Alba Tyson Jr; Jesse Fu Hospital Stay Data Consultations 01/30/25 14:44 ED Decision to Admit Stat 01/30/25 16:53 Consult Gastroenterology Routine Diagnostic Imagining Performed 01/30/25 12:49 CT abd pelvis IV con only Stat Discharge Instructions Given to Patient (Per Discharging Provider) Follow with PCP as outpatient Follow with GI as outpatient Please discuss with your Oncologist about the mass in the right pelvis area Total Time Total Time Spent Total Time Spent (In Minutes): 35 Coding Level of Care Code 26852 INP/OBS DISCH >30 MIN Diagnoses Acute upper GI bleed K92.2 Chronic diastolic congestive heart failure I50.32 B-cell lymphoma C85.10 Abdominal pain R10.9 Permanent atrial fibrillation I48.21
[2025-01-31 12:26] VITALS: BP 111/67
[2025-01-31] MEDS: HEPARIN 100 UNIT/ML 5ML FLUSH FLUSH PRN (12:49)
== END 2025-01-31 13:37 | disposition home or self-care (01) ==
LOC: EDINP 12:35 → ED 12:35 → 2W 20:20

== ENCOUNTER 2025-04-15 12:50 | Inpatient (IN) ==
--- NOTE | 2025-04-15 13:18 | Emergency Department Note ---
Impression & Plan Left hip pain, Ambulatory dysfunction ED Provider Note NAME: GUSTABO MCKEON AGE: 75 SEX: F : 1950 ARRIVES VIA: Ambulance INFORMANT: [Patient] ED PROVIDER(S): [Norberto Reynoso MD] CHIEF COMPLAINT: Hip pain HISTORY OF PRESENT ILLNESS: Patient is a 75-year-old female who has had 3 months of left hip pain. She thinks she may have injured the hip using a machine at the gym. She did not fall. The pain has been fairly severe but bearable. She saw her doctor's office and had x-rays showing bone on bone change to the left hip. She has not yet seen an orthopedist. The patient states that for some reason this morning, the pain was severe and she could not even get out of bed. She presents by ambulance. She states that she did receive IV fentanyl in route and IV Zofran, this has helped the pain some but she still cannot move without discomfort. No fever, no cough or congestion. No abdominal pain. No urinary complaints. She does take Eliquis for A-fib. PMHx/PSHx/Social Hx: See Below PHYSICAL EXAM: GENERAL: Patient is in no acute distress. HEENT: No acute trauma, normocephalic atraumatic, mucous membranes moist, no nasal congestion. NECK: No stridor, no adenopathy, no meningismus, trachea is midline. LUNGS: Clear to auscultation bilaterally, no wheeze, no rhonchi, breath sounds equal. HEART: Mildly tachycardic, no murmurs, irregular rhythm. ABDOMEN: Soft, nontender, no peritonitis. Obese. EXTREMITIES: No cyanosis. No gross deformity to the left lower extremity but she has severe pain with any movement of the left hip. NEUROLOGIC: Oriented x 3, no acute motor or sensory deficits, no focal weakness. SKIN: No jaundice, no diaphoresis. DIFFERENTIAL DIAGNOSIS: Arthritis, [id number] change, hemarthrosis, fracture, bursitis, among others. EMERGENCY DEPARTMENT PROCEDURES: MEDICAL DECISION MAKING: There is no leukocytosis or concerning anemia. There is a normal platelet count. PTT was somewhat elevated. There was an elevation to the creatinine but this appears baseline looking back at previous testing. Some subtle liver enzyme elevations were noted. Left hip CT showed arthritis, there was no fracture or lytic lesion. On exam, the patient was in severe pain around the left hip. Any movement caused significant discomfort. She was not toxic or febrile. She did not report any trauma. The patient had received fentanyl en route with some relief. She was ordered for IV morphine and IV Tylenol. The patient has been here now for multiple hours, her pain is so intense that she cannot get out of bed. I did discuss the case with orthopedics. The patient will be hospitalized on the medical service for pain control. Orthopedics will see the patient in the morning and decide on potential orthopedic intervention. The patient was happy with the care and plan. She understands the need for a hospital stay as she cannot function at home. I did speak with case management, the on-call hospitalist was consulted. Prior/Outside records/notes reviewed: Today's EMS notes describing her presentation and transport to this hospital. Imaging/x-ray results per my interpretation: Chronic Medical/Social conditions affecting care: Advanced age. Care/Management discussed with: On-call orthopedic service-Dr. Rowland. Case management and the on-call hospitalist. Level of care consideration(s): After review of the information above and other included data: --I believe the patient requires escalation of care to admission DISPOSITION: Admission Past Med/Surg History Problem List (Updated 04/15/25 @ 19:46 by Norberto Reynoso MD) Ambulatory dysfunction (Acute) Left hip pain (Acute) Solitary thyroid nodule Chronic diastolic congestive heart failure B-cell lymphoma dx ~03/2022, no longer in chemo Hyperparathyroidism Physical deconditioning History of TIA (transient ischemic attack) Chronic cerebral ischemia Complicated migraine Lymphocele after surgical procedure Non Hodgkin's lymphoma (Acute) Current use of research program assistant anticoagulation (Acute) History of back problems Fecal incontinence Permanent atrial fibrillation Mesenteric mass Exertional dyspnea Vitamin D deficiency (Acute) Ventral hernia (Acute) Sleep apnea (Acute) Mesenteric fibrosis (Acute) Leukopenia (Acute) BMI 36.0-36.9,adult (Acute) B12 deficiency Cirrhosis (Acute) CKD (chronic kidney disease), stage III follows with [place] [facility] per pt Carcinoid tumor PET SCAN AT [facility]> "PLANS TO TREAT FOR B CELL LYMPHOMA SHOULD TREAT CARCINOID TUMOR" > resolved per pt Prediabetes pt unaware (HFpEF) heart failure with preserved ejection fraction f/u dr. brewer, [facility] [place] Medical History Nephrolithiasis Lesion of ureter biopsy 12/29/2020 Kidney stones hx and at present Nausea Non-Hodgkin lymphoma in remission Neutropenia Pancytopenia Current use of research program assistant anticoagulation Hx of pancreatitis no episodes since Jul 2023 History of anemia IRON INFUSIONS IN PAST History of COVID-19 07/2022 > RESOLVED Sleep apnea NO DEVICE Lymphoma hx 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 Brewer > med controlled Mesenteric mass recent PET scan --- RECENT B CELL LYMPHOMA CONFIRMED, growth has recently stopped due to chemo Depression Chronic pain of inguinal region Anticoagulant long-term use Dissection of vertebral artery pt unsure/unaware GERD (gastroesophageal reflux disease) Hypertension Surgical History Port-A-Cath in place (12/10/22) Access port placement and use of fluoroscopy. Dr. Leger History of bowel resection WITH COLOSTOMY R/T SBO > colostomy reversed Hx of lymph node biopsy groin area History of bone marrow biopsy S/P ureteral stent placement History of cystoscopy History of tubal ligation History of umbilical hernia repair History of colostomy reversal History of esophagogastroduodenoscopy (EGD) History of colonoscopy (05/2022) History of cardiac radiofrequency ablation D/T AFIB - PT REPORTS HAD 1 BUT MAYBE 2 - NOT SURE DATES ([place]) History of cardioversion multiple History of gastric bypass Hx of laparoscopy Hx of abdominal surgery FOR REMOVAL OF CYST - PT NOT SURE TYPE History of colostomy r/t bowel blockage H/O: hysterectomy Hx of removal of cyst (11/14/23) FINAL DIAGNOSIS In office procedure Dr. Hernandez Skin, left flank mass, excision: - Epidermal inclusion cyst Hx of cholecystectomy Family History Grandmother Diabetes Hypertension Mother Heart disease Hypertension Grandfather Stomach cancer Hypertension Father , early 80s of pancreatic cancer Pancreatic cancer Hypertension Other No family history of adverse response to anesthesia Denies family history of Ovarian cancer Breast cancer Colorectal cancer Social History Smoking Status: Never smoker Tobacco Type: Cigarettes Age Started Using Tobacco: 20; Age Quit Using Tobacco: 42; packs per day: 1; Second Hand Exposure: No; Do You Dip or Chew Tobacco: No; Hx Alcohol Use: No Hx Substance Use: No Preferred Language: Croatian Communication Ability: Effective Visual Impairment: No Limitations Hearing Ability: Normal Station Master Required: No Beliefs That Will Affect Care: None marital status: Current Living Situation: Spouse Current Living Situation Comment: at home with 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 status: 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) How many Children do You have: 1 other: [employer] Feels Safe at Home: Yes Diet: regular caffeine: No Dental Care, Regularly: Yes Physical Activity Frequency: Does not Exercise Seatbelt Use: always Sunscreen Use: No Assistive Devices: None Allergies Allergies Allergy/AdvReac Type Severity Reaction Status Date / Time No Known Allergies Allergy Verified 04/15/25 18:49 Home Meds Home Medications Medication Instructions Recorded Confirmed cholecalciferol (vitamin D3) 25 2,000 unit PO DAILY 03/16/24 04/15/25 mcg (1,000 unit) capsule (Vitamin D3) atorvastatin 40 mg tablet 40 mg PO QAM 07/29/24 04/15/25 bumetanide 2 mg tablet 2 mg PO QAM 08/05/24 04/15/25 oxycodone 5 mg tablet 5 mg PO Q6H PRN pain 09/14/24 04/15/25 folic acid 1 mg tablet 1,000 mg PO QAM 09/17/24 04/15/25 spironolactone 25 mg tablet 12.5 mg PO QAM 09/17/24 04/15/25 (Aldactone) magnesium oxide 400 mg PO HS 04/15/25 04/15/25 pantoprazole 40 mg tablet,delayed 40 mg PO QAM 04/15/25 04/15/25 release (Protonix) Previous Rx's Medication Instructions Recorded cyanocobalamin (vitamin B-12) 1,000 mcg IM .COMPLEX PRN B12 08/13/23 1,000 mcg/mL injection solution Deficiency #4 mL bupropion HCl 150 mg 24 hr tablet, 150 mg PO QAM #90 tabs 03/24/24 extended release metoprolol tartrate 50 mg tablet 50 mg PO BID #180 tabs 03/24/24 ferrous sulfate 325 mg (65 mg 325 mg PO DAILY #30 tabs 11/06/24 iron) tablet (FeroSul) apixaban 5 mg tablet (Eliquis) 5 mg PO BID #180 tabs 03/23/25 escitalopram oxalate 10 mg tablet 10 mg PO DAILY #90 tabs 03/31/25 (Lexapro) Results & Data (ED) Vital Signs Vital Signs - 24 hr 04/15/25 12:58 04/15/25 12:58 04/15/25 14:35 Temperature 36.6 C Temperature Source Oral Pulse Rate 94 H 101 H Pulse Rate [Apical] 96 H Pulse Rate from SpO2 Sensor Respiratory Rate 22 23 Respiratory Effort / Characteristics Non-Labored Spontaneous Respiratory Depth Normal Blood Pressure 111/80 Blood Pressure [Right Arm] 119/68 Blood Pressure Mean 90 Blood Pressure Mean [Right Arm] 85 Blood Pressure Position Semi-fowlers Blood Pressure Position [Right Arm] Semi-fowlers Pulse Oximetry 97 98 Oxygen Delivery Method Nasal Cannula Nasal Cannula Oxygen Flow Rate 2 2 Sepsis Recent Fever Within 48 Hours No Sepsis New/Unexplained Change in Mental Status N/A Sepsis Action Taken by Nursing No Action Required 04/15/25 15:00 04/15/25 15:30 04/15/25 16:00 Temperature Temperature Source Pulse Rate 84 91 H 83 Pulse Rate [Apical] Pulse Rate from SpO2 Sensor Respiratory Rate 20 22 16 Respiratory Effort / Characteristics Respiratory Depth Blood Pressure 128/78 128/78 107/65 Blood Pressure [Right Arm] Blood Pressure Mean 94 94 79 Blood Pressure Mean [Right Arm] Blood Pressure Position Blood Pressure Position [Right Arm] Pulse Oximetry 100 99 98 Oxygen Delivery Method Oxygen Flow Rate Sepsis Recent Fever Within 48 Hours Sepsis New/Unexplained Change in Mental Status Sepsis Action Taken by Nursing 04/15/25 16:30 04/15/25 17:06 04/15/25 17:12 Temperature Temperature Source Pulse Rate 92 H 102 H Pulse Rate [Apical] Pulse Rate from SpO2 Sensor 83 Respiratory Rate 24 24 Respiratory Effort / Characteristics Respiratory Depth Blood Pressure 118/66 112/69 Blood Pressure [Right Arm] Blood Pressure Mean 83 83 Blood Pressure Mean [Right Arm] Blood Pressure Position Blood Pressure Position [Right Arm] Pulse Oximetry 98 99 Oxygen Delivery Method Oxygen Flow Rate Sepsis Recent Fever Within 48 Hours Sepsis New/Unexplained Change in Mental Status Sepsis Action Taken by Nursing 04/15/25 18:30 Temperature Temperature Source Pulse Rate Pulse Rate [Apical] Pulse Rate from SpO2 Sensor 88 Respiratory Rate 22 Respiratory Effort / Characteristics Respiratory Depth Blood Pressure 119/72 Blood Pressure [Right Arm] Blood Pressure Mean 87 Blood Pressure Mean [Right Arm] Blood Pressure Position Blood Pressure Position [Right Arm] Pulse Oximetry 98 Oxygen Delivery Method Oxygen Flow Rate Sepsis Recent Fever Within 48 Hours Sepsis New/Unexplained Change in Mental Status Sepsis Action Taken by Custodial Medications Current Medication List: was personally reviewed by me Laboratory Data Attestation: I reviewed the patient's lab results. 04/15/25 14:08 04/15/25 14:08 Lab Results 04/15/25 Range/Units 14:08 WBC 7.76 (4.8-10.8) K/ul RBC 4.43 (4.20-5.40) M/uL Hgb 15.7 (12.0-16.0) g/dl Hct 46.0 (37.0-47.0) % MCV 103.8 H (80.0-100.0) fL MCH 35.4 H (25.0-34.0) pg MCHC 34.1 (32.0-36.0) g/dL RDW Std Deviation 51.4 H (36.4-46.3) fL RDW Coeff of Rodrigo 13.3 (11.5-14.5) % Plt Count 147 (130-400) K/uL MPV 9.2 L (9.4-12.4) fL PT 11.4 (9.0-12.0) Seconds INR 1.1 (0.9-1.1) APTT 54 H (21-31) Seconds PTT Ratio 2.0 Sodium 143 (136-145) mmol/L Potassium 4.1 (3.5-5.1) mmol/L Chloride 108 H (98-107) mmol/L Carbon Dioxide 28 (21-32) mmol/L Anion Gap 7 (3-11) BUN 33 H (6-23) mg/dl Creatinine 1.38 H (0.6-1.2) mg/dl Est Cr Clr Drug Dosing 41.8 ml/min eGFR 40.42 BUN/Creatinine Ratio 23.9 H (10-20) Glucose 105 H (70-99(Fasting)) mg/dl Calcium 8.9 (8.6-10.3) mg/dl Total Bilirubin 1.6 H (0.2-1.0) mg/dl AST 96 H (13-39) U/L ALT 50 (7-52) U/L Alkaline Phosphatase 191 H (34-104) U/L Total Protein 6.2 (6.0-8.3) gm/dl Albumin 3.6 (3.4-5.0) gm/dl Globulin 2.6 (2.5-4.0) gm/dl Albumin/Globulin Ratio 1.4 (0.9-2) Administered Medications Morphine Sulfate (Morphine Sulfate 4 Mg/Ml 1 Ml Carp\\Vial) 4 mg IV Q15M PRN PRN Reason: Pain Stop: 04/29/25 13:17 Last Admin: 04/15/25 15:00 Dose: 4 mg Documented By: JAIME Discontinued Medications Acetaminophen (Ofirmev) 1,000 mg in 100 mls @ 400 mls/hr IV NOW STA Stop: 04/15/25 13:27 Last Infusion: 04/15/25 14:37 Dose: Infused Documented By: Admin: 04/15/25 14:05 Dose: 400 mls/hr Documented By: JAIME Morphine Sulfate (Morphine Sulfate 4 Mg/Ml 1 Ml Carp\\Vial) 4 mg IV NOW STA Stop: 04/15/25 16:35 Last Admin: 04/15/25 16:40 Dose: 4 mg Documented By: TENZIN Imaging Data Radiologist's Impression: Hip CT 04/15/25 13:13 Clinical history: Severe pain Technique: Axial computed tomography images were obtained of the left hip without intravenous contrast. Sagittal and coronal reconstructions were obtained Findings: No fracture is identified. No subluxation or dislocation is seen. There is mild to moderate severity left hip osteoarthritis. No focal osseous lesion is evident The visualized musculature appears unremarkable. No soft tissue mass or fluid collection is seen. No foreign body is evident Impression: 1. No definite fracture 2. Osteoarthritis Electronically signed by Eloy Hudson 04-15-2025 6:07 PM Discharge Plan Visit Data Chief Complaint: Hip Pain Stated Complaint: L HIP PAIN ED Provider: Norberto Reynoso Discharge Problem: Left hip pain, Ambulatory dysfunction Patient Disposition: Admitted As Inpatient Condition: Fair Forms Stand Alone Forms: My [facility] Prescriptions Prescriptions: No Action cholecalciferol (vitamin D3) [Vitamin D3] 25 mcg (1,000 unit) capsule 2,000 unit PO DAILY Hold Instructions: weekly dose bumetanide 2 mg tablet 2 mg PO QAM Rx Instructions: 2 mg po qam.May increase to BID prn for weight gain, SOB, swelling folic acid 1 mg tablet 1,000 mg PO QAM Patient Comments: CONFIRMED W/ 07/31 spironolactone [Aldactone] 25 mg tablet 12.5 mg PO QAM ferrous sulfate [FeroSul] 325 mg (65 mg iron) tablet 325 mg PO DAILY Qty: 30 3RF Eliquis 5 mg tablet 5 mg PO BID Qty: 180 3RF Hold Instructions: HOLD TILL PCP cyanocobalamin (vitamin B-12) 1,000 mcg/mL solution 1,000 mcg IM .COMPLEX PRN (Reason: B12 Deficiency ) Qty: 4 1RF Rx Instructions: 1,000 mcg intramuscularly every week x 4 weeks then once monthly thereafter; PRN; escitalopram oxalate [Lexapro] 10 mg tablet 10 mg PO DAILY Qty: 90 3RF bupropion HCl 150 mg tablet extended release 24 hr 150 mg PO QAM Qty: 90 3RF metoprolol tartrate 50 mg tablet 50 mg PO BID Qty: 180 3RF oxycodone 5 mg tablet 5 mg PO Q6H PRN (Reason: pain) atorvastatin 40 mg tablet 40 mg PO QAM Rx Instructions: TAKE 1 TABLET BY MOUTH DAILY IN THE MORNING magnesium oxide 400 mg magnesium Capsule 400 mg PO HS pantoprazole [Protonix] 40 mg tablet,delayed release (DR/EC) 40 mg PO QAM Referrals Referrals: Christopher Guevara MD [Primary Care Provider] -
[2025-04-15] MEDS: ACETAMINOPHEN 1,000 MG/100 ML VIAL IV STA (14:05)
[2025-04-15 14:25] LABS: Hemoglobin 15.7 g/dl (12.0-16.0); Mean Corpuscular Hemoglobin 35.4 pg (25.0-34.0); Mean Corpuscular Hgb Conc 34.1 g/dL (32.0-36.0); Mean Corpuscular Volume 103.8 fL (80.0-100.0); Mean Platelet Volume 9.2 fL (9.4-12.4); Platelet Count 147 K/uL (130-400); RDW Coefficient of Variation 13.3 % (11.5-14.5); RDW Standard Deviation 51.4 fL (36.4-46.3); Red Blood Count 4.43 M/uL (4.20-5.40); White Blood Count 7.76 K/ul (4.8-10.8)
[2025-04-15 14:50] LABS: Albumin Globulin Ratio 1.4 (0.9-2); Albumin Level 3.6 gm/dl (3.4-5.0); BUN Creatinine Ratio 23.9 (10-20); Bilirubin,Total 1.6 mg/dl (0.2-1.0); Calcium 8.9 mg/dl (8.6-10.3); Creatinine Clr Calc Pharmacy 41.8 ml/min; Globulin 2.6 gm/dl (2.5-4.0); Potassium 4.1 mmol/L (3.5-5.1); Total Protein 6.2 gm/dl (6.0-8.3)
[2025-04-15 14:52] LABS: INR 1.1 (0.9-1.1); Partial Thromboplastin Time 54 Seconds (21-31); Prothrombin Time 11.4 Seconds (9.0-12.0)
[2025-04-15] MEDS: MoRPHine SULFATE 4 MG/ML 1 ML CARP\\VIAL IV PRN (15:00)
[2025-04-15] MEDS: MoRPHine SULFATE 4 MG/ML 1 ML CARP\\VIAL IV STA (16:40)
--- NOTE | 2025-04-15 18:08 | CT Scan Report ---
Clinical history: Severe pain Technique: Axial computed tomography images were obtained of the left hip without intravenous contrast. Sagittal and coronal reconstructions were obtained Findings: No fracture is identified. No subluxation or dislocation is seen. There is mild to moderate severity left hip osteoarthritis. No focal osseous lesion is evident The visualized musculature appears unremarkable. No soft tissue mass or fluid collection is seen. No foreign body is evident Impression: 1. No definite fracture 2. Osteoarthritis Electronically signed by Eloy Hudson 04-15-2025 6:07 PM
--- NOTE | 2025-04-15 19:24 | History & Physical Report ---
Date of Service April 15, 2025 Assessment & Plan (1) Left hip pain: (2) Ambulatory dysfunction: Plan 75-year-old female PMHx HLD, prediabetes, HFpEF, A-fib on Eliquis, B-cell lymphoma, cirrhosis, CKD stage III, history of TIA, hyperparathyroidism, non- Hodgkin's lymphoma, sleep apnea, and vitamin B12 and D deficiency presenting for L hip pain x 3 months. ED evaluation reveals no leukocytosis, H&H stable; PT/INR WNL, APTT 54; CMP chloride 108, BUN 33, creatinine 1.3, ratio 23.9, glucose 105, bilirubin 1.6, AST 96, alkaline phosphatase 191; L hip XR no definite fracture, OA.; Provided with morphine 4 mg IV x 2 and Tylenol 1 g IV in ED. #L hip pain/ambulatory dysfunction Ongoing L hip pain for the past 3 months, worsening 1 week [employer]. No trauma. On Eliquis at baseline. Previously was treated with steroid pack in March which did not alleviate her symptoms much. Is to follow-up with orthopedics outpatient per PCP, but has been unable to do so. Now the point patient is unable to ambulate even with significant assistance. Given location of pain and symptoms occurring with use of muscle, suspect this is more so muscular in nature. - CBC without leukocytosis, stable H&H- Do not suspect infection at present - Prior outpatient XR without acute findings - Hip CT (L) no definite fracture, does reveal OA - Morphine prn pain, Narcan ordered if needed - adjust pain meds as appropriate - Zofran prn N/V - Voltaren gel to piriformis area BID - (Mg 2.0) - Mag sulfate 4g IV to provide muscle spasm relief - Can consider valium HS for relief -- deferred at admission given slight sleepiness from pain meds - PT/OT ordered -- appreciate assistance - Ortho consulted - appreciate input + recs #Permanent A-fib - Eliquis, metoprolol tartrate - continue #HLD - Atorvastatin - continue #GERD - Pantoprazole - continue #HFpEF - Bumetanide, spironolactone - continue #Mood - Bupropion, escitalopram - continue Of note, patient does have port in L chest which she states has been present x 2 years for Lymphoma-- if not actively using, may consider removal. Dispo: Admit, med/sx VTE prophylaxis: Eliquis This document was dictated utilizing [employer]. Please excuse any grammatical errors that may be secondary to use of this software. Admission and Anticipated Discharge Date Admission Date: 04/15/2025 History of Present Illness Chief Complaint: Hip pain, L Primary Care Provider: Christopher Guevara MD 75-year-old female PMHx HLD, prediabetes, HFpEF, A-fib on Eliquis, B-cell lymphoma, cirrhosis, CKD stage III, history of TIA, hyperparathyroidism, non- Hodgkin's lymphoma, sleep apnea, and vitamin B12 and D deficiency presenting for L hip pain x 3 months, worsening the day of arrival. States initially, around 2- 3 months ago, she was at the gym exercising and feels as though she may have irritated the area at that point. Since then, she has been having worsening L hip pain, mainly noticeable whenever she is adjusting from positions such as going sitting to standing or vice versa. States that the pain mainly waxes and wanes and is normally a sharp pain rather localized to her lateral hip, with radiation to the buttocks. She has never experienced any numbness or tingling. States that on the day of arrival, she was try to get out of bed and was unable to because the pain was severe. States it was always a 10 out of 10 pain and never is less than this. States that the difference today was that it was a constant sharp pain compared to only with movement. At time of evaluation, the pain is still rated 10 out of 10 by the patient but is described as soreness and burning compared to sharp pain. No reported trauma or injuries per patient. States that she is not very fond of urinating into the external catheter and that is where she is holding it, but is not having LUTS otherwise. Overall denying chest pain, shortness of breath, palpitations, abdominal pain, N/V/D/C, numbness/tingling, fever/chills, URI symptoms, weakness, or syncope. ED evaluation reveals no leukocytosis, H&H stable; PT/INR WNL, APTT 54; CMP chloride 108, BUN 33, creatinine 1.3, ratio 23.9, glucose 105, bilirubin 1.6, AST 96, alkaline phosphatase 191; L hip XR no definite fracture, OA.; Provided with morphine 4 mg IV x 2 and Tylenol 1 g IV in ED. Please see Dr. Bates's attestation for adjustments/additions to treatment plan. Allergies Allergy/AdvReac Type Severity Reaction Status Date / Time No Known Allergies Allergy Verified 04/15/25 18:49 Home Medications Medication Instructions Recorded Confirmed Type cyanocobalamin (vitamin B-12) 1,000 mcg IM .COMPLEX PRN B12 08/13/23 04/15/25 Rx 1,000 mcg/mL injection solution Deficiency #4 mL cholecalciferol (vitamin D3) 25 2,000 unit PO DAILY 03/16/24 04/15/25 History mcg (1,000 unit) capsule (Vitamin D3) bupropion HCl 150 mg 24 hr tablet, 150 mg PO QAM #90 tabs 03/24/24 04/15/25 Rx extended release metoprolol tartrate 50 mg tablet 50 mg PO BID #180 tabs 03/24/24 04/15/25 Rx atorvastatin 40 mg tablet 40 mg PO QAM 07/29/24 04/15/25 History bumetanide 2 mg tablet 2 mg PO QAM 08/05/24 04/15/25 History oxycodone 5 mg tablet 5 mg PO Q6H PRN pain 09/14/24 04/15/25 History folic acid 1 mg tablet 1,000 mg PO QAM 09/17/24 04/15/25 History spironolactone 25 mg tablet 12.5 mg PO QAM 09/17/24 04/15/25 History (Aldactone) ferrous sulfate 325 mg (65 mg 325 mg PO DAILY #30 tabs 11/06/24 04/15/25 Rx iron) tablet (FeroSul) apixaban 5 mg tablet (Eliquis) 5 mg PO BID #180 tabs 03/23/25 04/15/25 Rx escitalopram oxalate 10 mg tablet 10 mg PO DAILY #90 tabs 03/31/25 04/15/25 Rx (Lexapro) magnesium oxide 400 mg PO HS 04/15/25 04/15/25 History pantoprazole 40 mg tablet,delayed 40 mg PO QAM 04/15/25 04/15/25 History release (Protonix) Past Med/Surg History Problem List Ambulatory dysfunction (Acute) Left hip pain (Acute) Solitary thyroid nodule Chronic diastolic congestive heart failure B-cell lymphoma dx ~03/2022, no longer in chemo Hyperparathyroidism Physical deconditioning History of TIA (transient ischemic attack) Chronic cerebral ischemia Complicated migraine Lymphocele after surgical procedure Non Hodgkin's lymphoma (Acute) 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> "PLANS TO TREAT FOR B CELL LYMPHOMA SHOULD TREAT CARCINOID TUMOR" > resolved per pt Prediabetes pt unaware (HFpEF) heart failure with preserved ejection fraction [place] [facility] [place] Nephrolithiasis Lesion of ureter biopsy 12/29/2020 Kidney stones hx and at present Nausea Non-Hodgkin lymphoma in remission Neutropenia Pancytopenia Current use of detention anticoagulation Hx of pancreatitis no episodes since Jul 2023 History of anemia IRON INFUSIONS IN PAST History of COVID-19 07/2022 > RESOLVED Sleep apnea NO DEVICE Lymphoma hx 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 Brewer > med controlled Mesenteric mass recent PET scan --- RECENT B CELL LYMPHOMA CONFIRMED, growth has recently stopped due to chemo Depression Chronic pain of inguinal region Anticoagulant long-term use Dissection of vertebral artery pt unsure/unaware GERD (gastroesophageal reflux disease) Hypertension Surgical History Port-A-Cath in place (12/10/22) Access port placement and use of fluoroscopy. Dr. Leger History of bowel resection WITH COLOSTOMY R/T SBO > colostomy reversed Hx of lymph node biopsy groin area History of bone marrow biopsy S/P ureteral stent placement History of cystoscopy History of tubal ligation History of umbilical hernia repair History of colostomy reversal History of esophagogastroduodenoscopy (EGD) History of colonoscopy (05/2022) History of cardiac radiofrequency ablation D/T AFIB - PT REPORTS HAD 1 BUT MAYBE 2 - NOT SURE DATES ([place]) History of cardioversion multiple History of gastric bypass Hx of laparoscopy Hx of abdominal surgery FOR REMOVAL OF CYST - PT NOT SURE TYPE History of colostomy r/t bowel blockage H/O: hysterectomy Hx of removal of cyst (11/14/23) FINAL DIAGNOSIS In office procedure Dr. David Bryson, left flank mass, excision: - Epidermal inclusion cyst Hx of cholecystectomy Family History Grandmother Diabetes Hypertension Mother Heart disease Hypertension Grandfather Stomach cancer Hypertension Father , early 80s of pancreatic cancer Pancreatic cancer Hypertension Other No family history of adverse response to anesthesia Denies family history of Ovarian cancer Breast cancer Colorectal cancer Social History Smoking Status: Never smoker Tobacco Type: Cigarettes Age Started Using Tobacco: 20; Age Quit Using Tobacco: 42; packs per day: 1; Second Hand Exposure: No; Do You Dip or Chew Tobacco: No; Hx Alcohol Use: No Hx Substance Use: No Preferred Language: Slovenian Communication Ability: Effective Visual Impairment: No Limitations Hearing Ability: Normal Printed Circuit Board Panels Developer Required: No Beliefs That Will Affect Care: None marital status: Current Living Situation: Spouse Current Living Situation Comment: at home with 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 status: retired 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) How many Children do You have: 1 other: VP [employer]IOV[employer] PARTTIME Feels Safe at Home: Yes Diet: regular caffeine: No Dental Care, Regularly: Yes Physical Activity Frequency: Does not Exercise Seatbelt Use: always Sunscreen Use: No Assistive Devices: None Physical Exam Physical Exam: General: No acute distress Skin: Warm and dry Head: Normocephalic, atraumatic Eyes: PERRL, conjunctivae clear, sclera non-icteric ENT: External ear and ear canal without swelling; nose atraumatic; good dentition, tongue normal appearance, pharynx normal Neck: Supple, no LAD Cardio: Irregularly irregular rhythm, borderline tachycardic 90s-100s, no M/G/R, S1 and S2 normal; R chest with port in place, no erythema or edema, no drainage from area Resp: No respiratory distress, Lungs CTA in all lobes bilaterally, no wheezes, rales, or rhonchi Abdomen: Soft, symmetric, nontender; No masses or hepatosplenomegaly; Bowel sounds normoactive MSK: Tenderness to palpation L hip, No deformities; pulses palpable and equal; no edema. Neuro: Awake, alert; Sensation intact bilaterally; CN grossly intact Psych: Appropriate mood and affect; good judgement and insight. Results & Data Results & Data Vital Signs (Past 12 Hours) Vital Signs Temp Pulse Pulse Resp BP BP Pulse Ox 04/15/25 18:30 22 119/72 98 04/15/25 17:12 102 H 04/15/25 17:06 24 112/69 99 04/15/25 16:30 92 H 24 118/66 98 04/15/25 16:00 83 16 107/65 98 04/15/25 15:30 91 H 22 128/78 99 04/15/25 15:00 84 20 128/78 100 04/15/25 14:35 96 H 23 119/68 98 04/15/25 12:58 101 H 04/15/25 12:58 36.6 C 94 H 22 111/80 97 O2 Del Method O2 Flow Rate 04/15/25 18:30 04/15/25 17:12 04/15/25 17:06 04/15/25 16:30 04/15/25 16:00 04/15/25 15:30 04/15/25 15:00 04/15/25 14:35 Nasal Cannula 2 04/15/25 12:58 04/15/25 12:58 Nasal Cannula 2 Laboratory Results 04/15/25 14:08 WBC 7.76 RBC 4.43 Hgb 15.7 Hct 46.0 MCV 103.8 H MCH 35.4 H MCHC 34.1 RDW Std Deviation 51.4 H RDW Coeff of Rodrigo 13.3 Plt Count 147 MPV 9.2 L PT 11.4 INR 1.1 APTT 54 H PTT Ratio 2.0 Sodium 143 Potassium 4.1 Chloride 108 H Carbon Dioxide 28 Anion Gap 7 BUN 33 H Creatinine 1.38 H Est Cr Clr Drug Dosing 41.8 eGFR 40.42 BUN/Creatinine Ratio 23.9 H Glucose 105 H Calcium 8.9 Total Bilirubin 1.6 H AST 96 H ALT 50 Alkaline Phosphatase 191 H Total Protein 6.2 Albumin 3.6 Globulin 2.6 Albumin/Globulin Ratio 1.[address] 04/15/25 13:13 Clinical history: Severe pain Technique: Axial computed tomography images were obtained of the left hip without intravenous contrast. Sagittal and coronal reconstructions were obtained Findings: No fracture is identified. No subluxation or dislocation is seen. There is mild to moderate severity left hip osteoarthritis. No focal osseous lesion is evident The visualized musculature appears unremarkable. No soft tissue mass or fluid collection is seen. No foreign body is evident Impression: 1. No definite fracture 2. Osteoarthritis Electronically signed by Eloy Hudson 04-15-2025 6:07 PM Medications Administered Morphine 4 mg IV x 2 Acetaminophen 1 g IV Code Status & VTE Plan Code Status Full Supervising Physician Co-Signing Physician Notes I personally examined the patient and verified all baxter points of history and exam, discussed case, and agree with decision making with Lissette Cheng clear inciting factor. Hip pain is really more from her trochanter across her buttock. Vitals noted, in general she is awake and alert pleasant no distress. HEENT normocephalic atraumatic mucous membranes moist. Breathing unlabored no accessory muscle use good effort. Skin without rashes pallor or icterus. Musculoskeletal shows exquisite tenderness posterior greater trochant er across her buttock in the region of piriformis. High tone, tender, decreased range of motion. Post isometric relaxation muscle energy down x 3, patient tolerated well although movements particularly with flexion and internal rotation exacerbated her pain somebut I was able to affect some improvement in range of motion. Neuro shows no focal deficits. Hip painappears to be heavily is not entirely biomechanicalfocused on piriformis. OMT as above. Mag 4 g IV, Voltaren gel, pain control, PT/OT eval and treat. Anticoagulated otherwise as above PG Care Time/CCT Total # of Minutes Spent Total Time Spent with Patient: Total time spent is greater than 50% in coordination of care (as documented) at patient's floor/unit and/or counseling patient: Coding Level of Care Code 29095 INT INP/OBS CARE 3/75MIN Diagnoses Left hip pain M25.552 Ambulatory dysfunction R26.2
[2025-04-15] MEDS: MAGNESIUM SULFATE / D5W 1 GM/100 ML BAG IV SCH (20:05)
[2025-04-15 20:21] LABS: Appearance Urine Clear (Clear); Bilirubin Urine Negative (Negative); Blood Urine Negative (Negative); Color Urine Yellow; Glucose Urine UA Negative (Negative); Ketones Urine Negative (Negative); Leukocyte Esterase Urine Negative (Negative); Nitrite Urine Negative (Negative); Protein Urine Negative (Negative); Specific Gravity Urine 1.012 (1.000-1.030); Urobilinogen Urine Negative (Negative)
[2025-04-15] MEDS ORDERED: POLYETHYLENE (MIRALAX) 17 GM PACK PO PRN (21:12)
[2025-04-15] MEDS ORDERED: MAGNESIUM HYDROXIDE SUSP 30 ML UDC PO PRN (21:12)
[2025-04-15] MEDS ORDERED: ONDANSETRON INJ 2 MG/ML 2 ML VIAL IV PRN (21:12)
[2025-04-15] MEDS ORDERED: MELATONIN 3 MG TAB PO PRN (21:12)
[2025-04-15] MEDS ORDERED: NALOXONE HCL 0.4 MG/1 ML VIAL/CARP IV PRN (22:02)
[2025-04-15] MEDS: APIXABAN 5 MG TABLET PO SCH (22:17)
[2025-04-15] MEDS: MAGNESIUM OXIDE 400 MG TAB PO SCH (22:17)
[2025-04-15] MEDS: MoRPHine SULFATE 2 MG/ML CARP IV PRN (22:18)
[2025-04-15] MEDS: METOPROLOL TARTRATE 50 MG TAB PO SCH (22:18)
[2025-04-16] MEDS: DICLOFENAC SOD 1% GEL 100 GM TUBE EXT SCH (00:23)
[2025-04-16] MEDS: MoRPHine SULFATE 4 MG/ML 1 ML CARP\\VIAL IV PRN (02:05)
--- NOTE | 2025-04-16 07:35 | Orthopedic Consultation ---
Date of Service April 16, 2025 Assessment & Plan (1) Trochanteric bursitis, left hip: Patient is being consulted today due to persistent left hip pain that began over the last 3 months but worsened over the last week. I do think that her symptoms are consistent with trochanteric bursitis. Unfortunately, the pain worsened before she was able to get to an outpatient orthopedic office visit. I do recommend an injection at today's visit. Please see procedure note for left hip trochanteric bursa injection. She is not a diabetic. This will raise her blood sugars. Patient is aware. Nursing staff also aware. She states that she has tolerated steroids in the past without any issues. She may follow-up as an outpatient in the orthopedic clinic. She may get these injections every 3 months if needed. I did also discussed with the patient that she may have some ischial bursitis as well. This is an injection that I would recommend one of our sports/primary care orthopedic providers should you ulnar ultrasound guidance. She is aware. We are going to see how she does with the trochanteric bursa injection. She may continue to be weightbearing as tolerated, range of motion as tolerated and activity as tolerated in the left lower extremity. Please reach out to orthopedics with any other questions or concerns. History of Present Illness Reason for Consultation: left hip pain Requesting Physician: . Attending Physician: Antonio Connolly MD Tea is a 75-year-old female who is being consulted today due to left lateral hip pain that began about 3 months ago without injury, trauma or eliciting event. She states that the pain has been increasing over the last 3 months. She did report to the emergency department on 04/15/2025 and she states that the left hip pain was so severe that she was unable to get out of bed. She was brought into the emergency department by EMS. She was admitted to the hospital for further treatment and management of this left hip pain. Patient states that her pain is lateral in nature. States that some also goes into the back of the buttock. She states that when she is resting, she is able to manage her pain, however when she goes to walk or move, she has significant pain in the left hip. She denies any numbness, tingling or pain going any further down into the left lower extremity. She denies any low back pain. She denies any groin pain. She denies any fever, chills or constitutional symptoms. Also to note, she did see Dr. Guevara on 03/31/2025 for a wellness exam. She did have left hip pain at that time. He stated that the clinical exam was consistent with possible left hip trochanteric bursitis. He discussed with her referral to orthopedics for further intervention as well as possible steroid injection pending orthopedic evaluation. She has not seen orthopedics yet. Allergies Allergy/AdvReac Type Severity Reaction Status Date / Time No Known Allergies Allergy Verified 04/15/25 18:49 Home Medications Medication Instructions Recorded Confirmed Type cyanocobalamin (vitamin B-12) 1,000 mcg IM .COMPLEX PRN B12 08/13/23 04/15/25 Rx 1,000 mcg/mL injection solution Deficiency #4 mL cholecalciferol (vitamin D3) 25 2,000 unit PO DAILY 03/16/24 04/15/25 History mcg (1,000 unit) capsule (Vitamin D3) bupropion HCl 150 mg 24 hr tablet, 150 mg PO QAM #90 tabs 03/24/24 04/15/25 Rx extended release metoprolol tartrate 50 mg tablet 50 mg PO BID #180 tabs 03/24/24 04/15/25 Rx atorvastatin 40 mg tablet 40 mg PO QAM 07/29/24 04/15/25 History bumetanide 2 mg tablet 2 mg PO QAM 08/05/24 04/15/25 History oxycodone 5 mg tablet 5 mg PO Q6H PRN pain 09/14/24 04/15/25 History folic acid 1 mg tablet 1,000 mg PO QAM 09/17/24 04/15/25 History spironolactone 25 mg tablet 12.5 mg PO QAM 09/17/24 04/15/25 History (Aldactone) ferrous sulfate 325 mg (65 mg 325 mg PO DAILY #30 tabs 11/06/24 04/15/25 Rx iron) tablet (FeroSul) apixaban 5 mg tablet (Eliquis) 5 mg PO BID #180 tabs 03/23/25 04/15/25 Rx escitalopram oxalate 10 mg tablet 10 mg PO DAILY #90 tabs 03/31/25 04/15/25 Rx (Lexapro) magnesium oxide 400 mg PO HS 04/15/25 04/15/25 History pantoprazole 40 mg tablet,delayed 40 mg PO QAM 04/15/25 04/15/25 History release (Protonix) docusate sodium 100 mg capsule 100 mg PO BID #60 caps 04/17/25 Rx gabapentin 100 mg capsule 100 mg PO BID PRN neuropathic pain 04/17/25 Rx #30 caps oxycodone 5 mg tablet 5 - 10 mg (1 - 2 x 5 mg) PO Q4H 04/17/25 Rx PRN moderate - severe pain #20 tabs polyethylene glycol 3350 17 gram 17 g PO DAILY PRN constipation #30 04/17/25 Rx oral powder packet (Miralax) ea sennosides 8.6 mg tablet (Senokot) 8.6 mg PO HS #30 tabs 04/17/25 Rx diclofenac sodium 1 % topical gel 2 g EXT BID #50 grams 04/20/25 Rx (Voltaren Arthritis Pain) Past Med/Surg History Problem List (Updated 04/16/25 @ 09:10 by Sapna Ambrocio PA-C) Trochanteric bursitis, left hip Ambulatory dysfunction (Acute) Left hip pain (Acute) Solitary thyroid nodule Chronic diastolic congestive heart failure B-cell lymphoma dx ~03/2022, no longer in chemo Hyperparathyroidism Physical deconditioning History of TIA (transient ischemic attack) Chronic cerebral ischemia Complicated migraine Lymphocele after surgical procedure Non Hodgkin's lymphoma (Acute) Current use of chcf anticoagulation (Acute) History of back problems Fecal incontinence Permanent atrial fibrillation Mesenteric mass Exertional dyspnea Vitamin D deficiency (Acute) Ventral hernia (Acute) Sleep apnea (Acute) Mesenteric fibrosis (Acute) Leukopenia (Acute) BMI 36.0-36.9,adult (Acute) B12 deficiency Cirrhosis (Acute) CKD (chronic kidney disease), stage III follows with [place] [facility] per pt Carcinoid tumor PET SCAN AT [facility]> "PLANS TO TREAT FOR B CELL LYMPHOMA SHOULD TREAT CARCINOID TUMOR" > resolved per pt Prediabetes pt unaware (HFpEF) heart failure with preserved ejection fraction f/u dr. brewer, [facility] Medical History Nephrolithiasis Lesion of ureter biopsy 12/29/2020 Kidney stones hx and at present Nausea Non-Hodgkin lymphoma in remission Neutropenia Pancytopenia Current use of chcf anticoagulation Hx of pancreatitis no episodes since Jul 2023 History of anemia IRON INFUSIONS IN PAST History of COVID-19 07/2022 > RESOLVED Sleep apnea NO DEVICE Lymphoma hx 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 Brewer > med controlled Mesenteric mass recent PET scan --- RECENT B CELL LYMPHOMA CONFIRMED, growth has recently stopped due to chemo Depression Chronic pain of inguinal region Anticoagulant long-term use Dissection of vertebral artery pt unsure/unaware GERD (gastroesophageal reflux disease) Hypertension Surgical History Port-A-Cath in place (12/10/22) Access port placement and use of fluoroscopy. Dr. Leger History of bowel resection WITH COLOSTOMY R/T SBO > colostomy reversed Hx of lymph node biopsy groin area History of bone marrow biopsy S/P ureteral stent placement History of cystoscopy History of tubal ligation History of umbilical hernia repair History of colostomy reversal History of esophagogastroduodenoscopy (EGD) History of colonoscopy (05/2022) History of cardiac radiofrequency ablation D/T AFIB - PT REPORTS HAD 1 BUT MAYBE 2 - NOT SURE DATES ([place]) History of cardioversion multiple History of gastric bypass Hx of laparoscopy Hx of abdominal surgery FOR REMOVAL OF CYST - PT NOT SURE TYPE History of colostomy r/t bowel blockage H/O: hysterectomy Hx of removal of cyst (11/14/23) FINAL DIAGNOSIS In office procedure Dr. Hernandez Skin, left flank mass, excision: - Epidermal inclusion cyst Hx of cholecystectomy Family History Grandmother Diabetes Hypertension Mother Heart disease Hypertension Grandfather Stomach cancer Hypertension Father , early 80s of pancreatic cancer Pancreatic cancer Hypertension Other No family history of adverse response to anesthesia Denies family history of Ovarian cancer Breast cancer Colorectal cancer Social History Smoking Status: Never smoker Tobacco Type: Declines Age Started Using Tobacco: 20; Age Quit Using Tobacco: 42; packs per day: 1; Second Hand Exposure: No; Do You Dip or Chew Tobacco: No; Tobacco Cessation Education Requested by Patient: No Hx Alcohol Use: No Hx Substance Use: No Preferred Language: Yakut Communication Ability: Effective Visual Impairment: No Limitations Hearing Ability: Normal Patient Financial Services Coordinator Required: No Beliefs That Will Affect Care: None marital status: Current Living Situation: Spouse Current Living Situation Comment: at home with 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 status: retired 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 Physical Exam General: Alert and oriented. In no acute distress. At my initial visit, the patient is resting comfortably in her hospital recliner eating breakfast. I did suspect at this time left hip trochanteric bursitis due to the tenderness that she experienced on palpation of the lateral hip. She had no groin pain with logroll. I did do another exam prior to injection at today's visit as well. E bianca is once again consistent with left hip trochanteric bursitis. She is tender along the trochanteric bursa. She does also have some tenderness near the ischial bursa. Negative logroll. Negative Stinchfield. Negative ARTEM and FADIR. She has 5 out of 5 glutes strength on lateral testing. Neurovascularly intact in the left lower extremity. Constitutional WD/WN, vitals as above Musculoskeletal Please see above Skin no rashes, warm and dry Results & Data Results & Data Laboratory Results . Diagnostic Findings I personally reviewed the following imaging below: Hip and pelvis x-ray left 2 view on 03/29/2025: I agree with the impression below. IMPRESSION: 1. Mild degenerative hip joint disease. 2. No acute fracture, dislocation or subluxation identified. CT of the left hip on 04/15/2025: I agree with the impression below. Impression: 1. No definite fracture 2. Osteoarthritis PG Care Time/CCT Total # of Minutes Spent Total Time Spent with Patient: Total time spent is greater than 50% in coordination of care (as documented) at patient's floor/unit and/or counseling patient: Coding Level of Care Code 22733 IN/OBS CONSULT LVL 3,45M Diagnoses Trochanteric bursitis, left hip M70.62
[2025-04-16] MEDS: PANTOprazole 40 MG TAB PO SCH (08:07)
[2025-04-16] MEDS: ESCITALOPRAM OXALATE 10 MG TAB PO SCH (08:07)
[2025-04-16] MEDS: FOLIC ACID 1 MG TAB PO SCH (08:07)
[2025-04-16] MEDS: ATORVASTATIN 40 MG TAB PO SCH (08:07)
[2025-04-16] MEDS: ACETAMINOPHEN 325 MG TAB PO SCH (08:07)
[2025-04-16] MEDS: buPROPion XL 150 MG TABCR PO SCH (08:07)
[2025-04-16] MEDS: SPIRONOLACTONE 12.5 MG TAB PO SCH (08:07)
[2025-04-16] MEDS: FERROUS SULFATE 325 MG TAB PO SCH (08:07)
[2025-04-16] MEDS: BUMETANIDE 1 MG TAB PO SCH (08:07)
--- NOTE | 2025-04-16 08:08 | Hospitalist Progress Note ---
Date of Service April 16, 2025 Assessment & Plan (1) Left hip pain: (2) Ambulatory dysfunction: Plan 75yo female with PMHx significant for hx B-cell lymphoma (recent thyroid FNA negative, monitoring R hemipelvis mass), HFpEF, afib (on eliquis), CKD III, hx TIA, hyperparathyroidism, cirrhosis, ROMULO, B12 deficiency presented for LEFT hip pain #L hip pain/ambulatory dysfunction LEFT hip pain reported x 3 months, worse in the past 1 week. No recent trauma/falls, recent steroid pack in March which was reported to not be effective. Was to f/u outpt orthopedics but now w/ pain limiting ability to ambulate without significant assistance In ER, CT hip without acute fracture but notes arthritis (note prior lesion noted on prior PET scan to L femoral head but resolved on repeat imaging) Vit D wnl Orthopedics consulted Mag IV provided for muscle spasm relief, topical voltaren Oxycodone 5mg prn added for PO option, had been taking 5mg at home and reported some improvement w/ such this morning but additional 5mg provided and will use 10mg as needed given reported effective. Consider low dose gabapentin. Added ice/continue Tylenol carson placed on hold given LFT elevation but does have prior elevation. No abdominal pain reported but will check tick studies/RUQ US for eval. Will hold statin, ?could also make pain worse. CK was checked and wnl PCP notes prior poss L troch bursitis --> s/p injection this morning with orthopedics and waiting PT/OT consults Monitor response to injection/pain medications and if improvement with ambulation/wanting to go home can arrange for outpatient therapy but if recs for IPR patient would be agreeable. CM to follow #Permanent A-fib - rates controlled and remains on eliquis/metoprolol #HLD - Atorvastatin continued but will place on hold w/ elevated LFTs. CK check ed and wnl #GERD - Pantoprazole continued, hx gastric bypass noted and also continues on B12/folate and levels wnl on prior check w/o deficiency #HFpEF - Bumetanide, spironolactone continued. Does NOT appear overloaded and actually on the dry side. #Mood - Bupropion, escitalopram continued #Hx lymphoma -- following w/ Dr Jade. Prior octreotide infusions for possible carcinoid. Repeat PET recently w/ uptake thyroid and R hemipelvis mass and did undergo FNA thyroid FNA which neg for malignancy Messaged primary oncologist re R hemipelvis mass and was unable to get w/ IR and are monitoring LFT elevated, note AFP earlier this year not elevated. Can contact if any issues but as noted on admission does have L post present which isn't being used currently (no issues on exam) but would NOT consider removal given new findings and continued f/u oncology at [facility] Notable on PO iron daily, iron level 03/09 elevated 154. Does have hx gastric bypass and on B12/folate supplementation (prior levels this year wnl). TSH wnl march. Hgb levels acceptable and will place on hold for now on pain meds to prevent constipation Dispo: continued inpatient stay for pain control/therapy evals, possible rehab if recommended. Monitor LFTs on repeat and hold statin/scheduled tylenol and PO iron Admission and Anticipated Discharge Date Admission Date: April 15, 2025 Supervising Physician Co-Signing Physician Notes The patient was not seen by me. The chart was reviewed. Case discussed with SKYLAR York. Agree with assessment and plan Subjective Evaluated this morning, sitting up in chair. Got injection this morning. Ice, removed to eat. Pain to lateral hip, just got oxycodone as added PO option. Did order repeat 5mg PO x 1 now and will increase prn to 10mg but discussed morphine available if needed. Denies issues with constipation at baseline. No fever/chills, chest pain, shortness of breath. No abdominal pain or nausea. Does have some low back pain but no CVA tenderness. Saw by therapy this morning and did report would be agreeable to rehab if needed but will alert CM and monitor w/ pain control and allow injection to take some time. Not able to use NSAIDs w/ hx gastric bypass and anticoagulation use. Questions/concerns addressed at this time. Physical Exam Physical Exam: General: 75yo female sitting up in chair, eating lunch, NAD but reporting mild- moderate discomfort to her LEFT hip HEENT: head atraumatic, normocephalic, mmm,trachea midline Chest: port to R chest, no erythema/drainage Resp: even/unlabored, on room air CV: irregularly irregular, rates 80s, no significant m/r/g, no pitting edema GI: +BS, soft/nt : no CVA tenderness MSK/Neuro: L hip/greater trochanter w/ +tenderness to palpation along lateral aspect, no fluid collection/hematoma, pain worsened w/ dorsiflexion/plantarflexion of her foot, sensation intact answering questions appropriately, not confused Psych: AOx3, cooperative but flat affect at times Results & Data Results & Data Vital Signs (Past 12 Hours) Vital Signs Temp Pulse Pulse Resp BP Pulse Ox O2 Del Method 04/16/25 07:19 36.4 C L 91 H 18 122/80 95 Room Air 04/15/25 20:40 36.5 C 95 H 20 129/82 94 Room Air 04/15/25 20:28 Room Air Laboratory Results 04/16/25 04/16/25 04/16/25 Range/Units 14:08 09:39 09:37 Sodium 142 (136-145) mmol/L Potassium 3.9 (3.5-5.1) mmol/L Chloride 108 H (98-107) mmol/L Carbon Dioxide 29 (21-32) mmol/L Anion Gap 5 (3-11) BUN 33 H (6-23) mg/dl Creatinine 1.52 H (0.6-1.2) mg/dl Est Cr Clr Drug Dosing 36.5 ml/min eGFR 35.99 BUN/Creatinine Ratio 21.7 H (10-20) Glucose 184 H (70-99(Fasting)) mg/dl Calcium 8.9 (8.6-10.3) mg/dl Magnesium (1.7-2.4) mg/dl Total Bilirubin 1.7 H (0.2-1.0) mg/dl Direct Bilirubin 0.3 H (0-0.2) mg/dl AST 100 H (13-39) U/L ALT 104 H (7-52) U/L Alkaline Phosphatase 216 H (34-104) U/L Total Creatine Kinase 27 (26-192) U/L Total Protein 6.1 (6.0-8.3) gm/dl Albumin 3.7 (3.4-5.0) gm/dl 25-OH Vitamin D Total 32.9 (30-100) ng/ml Urine Color Urine Appearance (Clear) Urine pH (4.5-7.5) Ur Specific [place] (1.000-1.030) Urine Protein (Negative) Urine Glucose (UA) (Negative) Urine Ketones (Negative) Urine Blood (Negative) Urine Nitrite (Negative) Urine Bilirubin (Negative) Urine Urobilinogen (Negative) Ur Leukocyte Esterase (Negative) Urine Comment Anaplasma Smear Pending Babesia Smear Pending Babesia microti DNA PCR Pending Lyme Disease Screen Pending 04/15/25 04/15/25 Range/Units 20:03 14:08 Sodium (136-145) mmol/L Potassium (3.5-5.1) mmol/L Chloride (98-107) mmol/L Carbon Dioxide (21-32) mmol/L Anion Gap (3-11) BUN (6-23) mg/dl Creatinine (0.6-1.2) mg/dl Est Cr Clr Drug Dosing ml/min eGFR BUN/Creatinine Ratio (10-20) Glucose (70-99(Fasting)) mg/dl Calcium (8.6-10.3) mg/dl Magnesium 2.0 (1.7-2.4) mg/dl Total Bilirubin (0.2-1.0) mg/dl Direct Bilirubin (0-0.2) mg/dl AST (13-39) U/L ALT (7-52) U/L Alkaline Phosphatase (34-104) U/L Total Creatine Kinase (26-192) U/L Total Protein (6.0-8.3) gm/dl Albumin (3.4-5.0) gm/dl 25-OH Vitamin D Total (30-100) ng/ml Urine Color Yellow Urine Appearance Clear (Clear) Urine pH 5.0 (4.5-7.5) Ur Specific [place] 1.012 (1.000-1.030) Urine Protein Negative (Negative) Urine Glucose (UA) Negative (Negative) Urine Ketones Negative (Negative) Urine Blood Negative (Negative) Urine Nitrite Negative (Negative) Urine Bilirubin Negative (Negative) Urine Urobilinogen Negative (Negative) Ur Leukocyte Esterase Negative (Negative) Urine Comment Anaplasma Smear Babesia Smear Babesia microti DNA PCR Lyme Disease Screen Diagnostic Findings Hip CT 04/15/25 13:13 Clinical history: Severe pain Technique: Axial computed tomography images were obtained of the left hip without intravenous contrast. Sagittal and coronal reconstructions were obtained Findings: No fracture is identified. No subluxation or dislocation is seen. There is mild to moderate severity left hip osteoarthritis. No focal osseous lesion is evident The visualized musculature appears unremarkable. No soft tissue mass or fluid collection is seen. No foreign body is evident Impression: 1. No definite fracture 2. Osteoarthritis Electronically signed by Eloy Hudson 04-15-2025 6:07 PM PG Care Time/CCT Total # of Minutes Spent Total Time Spent with Patient: Total time spent is greater than 50% in coordination of care (as documented) at patient's floor/unit and/or counseling patient: Coding Level of Care Code 37191 SUB INP/OBS CARE 3/50MIN Diagnoses Left hip pain M25.552 Ambulatory dysfunction R26.2
[2025-04-16] MEDS ORDERED: FOLIC ACID 1 MG TAB PO SCH (09:00)
--- NOTE | 2025-04-16 09:14 | Procedure Note ---
Procedure Note Date of Service April 16, 2025 PROCEDURE = LEFT TROCHANTERIC BURSA CORTICOSTEROID INJECTION: After discussion of the risks and benefits of a trochanteric bursal corticosteroid injection, the patient was agreeable to proceed. We confirmed the site and laterality. Patient was positioned in the lateral decubitus position with the affected hip up. The target area of the most tender aspect of the trochanteric bursal region on the lateral aspect of the greater trochanter was identified and skin in dentation was made with a pen. We then used a combination of alcohol and Betadine cleanse the skin. Ethyl chloride was used to anesthetize the skin and an additional alcohol wipe was utilized for sterilization. We then used a 22- gauge spinal needle to access the trochanteric bursa underneath the IT band, right against the trochanter. My stores assistant then passively abducting the hip by lifting the leg to open up the space below the IT band. Using sterile technique, a solution of 1 cc of Kenalog 40 and 4 cc of 0.25% Marcaine were injected. The site was then dressed with a Band-Aid. Patient tolerated procedure well. Postinjection instructions were provided. Coding Additional Codes Date of Service (PG.SURGERY)
[2025-04-16] MEDS: ETHYL CHLORIDE AER PER SPRAY 100 ML CAN EXT ONE (10:12)
[2025-04-16] MEDS: TRIAMCINOLONE ACET 40 MG/ML VIAL IA ONE (10:12)
[2025-04-16] MEDS: BUPIVACAINE 0.25% PF 30 ML VIAL INFIL ONE (10:12)
[2025-04-16] MEDS: oxyCODONE HCL IR 5 MG TAB (IMMEDIATE RELEASE) PO PRN ×2 (10:16→16:24)
[2025-04-16 10:26] LABS: Albumin Level 3.7 gm/dl (3.4-5.0); BUN Creatinine Ratio 21.7 (10-20); Bilirubin Direct 0.3 mg/dl (0-0.2); Bilirubin,Total 1.7 mg/dl (0.2-1.0); Calcium 8.9 mg/dl (8.6-10.3); Creatinine Clr Calc Pharmacy 36.5 ml/min; Potassium 3.9 mmol/L (3.5-5.1); Total Protein 6.1 gm/dl (6.0-8.3)
[2025-04-16] MEDS: oxyCODONE HCL IR 5 MG TAB (IMMEDIATE RELEASE) PO STA (12:26)
--- NOTE | 2025-04-16 16:10 | Ultrasound Report ---
US liver CLINICAL HISTORY: elevated LFTs COMPARISON STUDY: Ultrasound of 03/20/[address] of 01/30/2025. FINDINGS: There is a possible 1.7 cm hypoechoic finding at the pancreatic body versus artifact. Pancr eatic tail is obscured by bowel gas. Liver contour is mildly lobular, can be seen due to early cirrho sis. No focal liver abnormality seen. Gallbladder is surgically absent. There is mildly dilated commo n bile duct measuring 1 cm diameter, can be seen after cholecystectomy. There is normal direction of flow in the portal vein. No ascites. Right kidney shows no hydronephrosis. [facility]able [facility]. IMPRESSION: 1. Possible early cirrhosis with no focal liver abnormality seen. No ascites. 2. Pancreas not well seen. Possible pancreatic lesion versus artifact. Suggest follow-up CT scan with pancreatic protocol. ACT 112: Negative or not required by law. Electronically signed by: Damian Lazar M.D. 04/16/2025 4:09 PM
[2025-04-16] MEDS: GABAPENTIN 100 MG CAP PO ONE (16:52)
[2025-04-16] MEDS: ALUMINUM/MAGNESIUM SUSP 30 ML UDC PO PRN (17:00)
[2025-04-17 06:22] LABS: Albumin Level 3.5 gm/dl (3.4-5.0); BUN Creatinine Ratio 24.3 (10-20); Bilirubin Direct 0.3 mg/dl (0-0.2); Bilirubin,Total 1.2 mg/dl (0.2-1.0); Calcium 8.7 mg/dl (8.6-10.3); Creatinine Clr Calc Pharmacy 39.6 ml/min; Potassium 4.3 mmol/L (3.5-5.1); Total Protein 5.8 gm/dl (6.0-8.3)
--- NOTE | 2025-04-17 08:16 | Hospitalist Progress Note ---
Date of Service April 17, 2025 Assessment & Plan (1) Left hip pain: (2) Ambulatory dysfunction: Plan 75yo female with PMHx significant for hx B-cell lymphoma (recent thyroid FNA negative, monitoring R hemipelvis mass), HFpEF, afib (on eliquis), CKD III, hx TIA, hyperparathyroidism, cirrhosis, ROMULO, B12 deficiency presented for LEFT hip pain #L hip pain/ambulatory dysfunction LEFT hip pain reported x 3 months, worse in the past 1 week. No recent trauma/falls, recent steroid pack in March which was reported to not be effective. Was to f/u outpt orthopedics but now w/ pain limiting ability to ambulate without significant assistance In ER, CT hip without acute fracture but notes arthritis (note prior lesion noted on prior PET scan to L femoral head but resolved on repeat imaging). Mag IV provided for muscle spasm relief, topical voltaren. Vit D acceptable Orthopedics consulted s/p steroid injection to LEFT hip for troch bursitis on 04/16 Continue ice, pain control --oxycodone increased to 10mg as taking 5mg prn at home and improved/continued.. Gabapentin 100mg PO x 1 for some neuropathic type pain w/ improvement. Morphine available but has not needed. -->Tylenol carson placed on hold given LFT elevation. Reports underlying liver disease, RUQ US w/ possible early cirrhosis and is on bumex/spironolactone and volume status appears acceptable and no pain. CK checked and wnl but also placed statin on hold to help w/ myalgias --> LFTs tending down on repeat Bowel regimen-Added miralax scheduled, colace BID, senna HS and increase ambulation to be encouraged as last BM ~3 days ago. +BS on exam/soft/nontender but will continue to monitor. Pain much better today 04/17 and waiting therapy evals and patient agreeable to rehab if recommended. CM to follow and will monitor repeat LFTs #HFpEF - volume status acceptable. Continues on bumex, spironolactone (also for liver disease/early cirrhosis) Monitor volume status/adj diuretics as needed but does NOT appear overloaded at present time (probably more on dry side and could consider holding if needed) #Hx lymphoma -- following w/ Dr Jade. Prior octreotide infusions for possible carcinoid. Port noted to L chest/no issues. Repeat PET recently w/ uptake thyroid and R hemipelvis mass and did undergo FNA thyroid FNA which neg for malignancy. Notified primary oncologist about inpatient stay (reports monitoring R hemipelvis mass for now as unable to get bx w/ IR) AFT earlier this year reported not elevated but does have elevated LFTs as above. Monitor for any issues and can reach out for consult if needed. * *Also note on PO iron daily but acceptable hgb and iron level 154 on 03/09 and have placed on HOLD as overload could worsen liver dysfunction as well. Remains on B12/folate for hx gastric bypass but levels acceptable #Permanent A-fib - rates controlled and remains on eliquis/metoprolol w/ hold parameters #HLD - stain continued on admission, CK wnl but holding w/ myalgias/LFTs. Lyme neg, tick smear negative #GERD - PPI continued. Do note hx gastric bypass and on B12/folate #Mood - Bupropion, escitalopram continued. Monitor w/ liver dx for adj Dispo: continued inpatient stay for pain control/PT/OT evals. ?IPR pending evals and CM notified to follow (patient agreeable) Admission and Anticipated Discharge Date Admission Date: April 15, 2025 Supervising Physician Co-Signing Physician Notes The patient was not seen by me. The chart was reviewed. Case discussed with SKYLAR York. Agree with assessment and plan Subjective Eval this morning, sitting up in chair, friend in room. Pain under better control. Not yet seen by therapy. Flatus but not this morning, +BS but slow. Last BM reported ~3 days ago. Denies abdominal pain/tenderness but discussed adding bowel regimen. Discussed LFTs, she reports having known liver disease but again not having any pain. Discussed holding scheduled tylenol/statin w/ myalgia and suspect benefit w/ letting injection take effect. Does have some intermittent numbness/tingling but is improved and did get gabapentin yesterday and will make available as needed. Possible rehab pending therapy evals. No fever/chills, chest pain, shortness of breath or nausea/vomiting. Good appetite reported. Questions/concerns addressed at this time. Physical Exam Physical Exam: General: 75yo female sitting up in chair, eating lunch, NAD, friend in room, improvement to L hip HEENT: head atraumatic, normocephalic, mmm,trachea midline Chest: port to R chest, no erythema/drainage Resp: even/unlabored, on room air CV: irregularly irregular, rates 60-80s, no significant m/r/g, no pitting edema GI: +BS but slightly slow today compared to yesterday, remains SOFT/no overt tenderness/guarding/rebound : no CVA tenderness MSK/Neuro: L hip/greater trochanter w/ DECREASED tenderness to palpation. improvement in dorsiflexion/plantar flexion without significant pain. sensation intact/pulse present Psych: AOx3, cooperative but flat affect at times Results & Data Results & Data Vital Signs (Past 12 Hours) Vital Signs Temp Pulse Resp BP Pulse Ox O2 Del Method 04/17/25 07:37 36.7 C 65 16 112/78 94 Room Air Laboratory Results 04/17/25 04/16/25 04/16/25 Range/Units 05:45 14:08 09:39 Sodium 139 (136-145) mmol/L Potassium 4.3 (3.5-5.1) mmol/L Chloride 104 (98-107) mmol/L Carbon Dioxide 31 (21-32) mmol/L Anion Gap 4 (3-11) BUN 34 H (6-23) mg/dl Creatinine 1.40 H (0.6-1.2) mg/dl Est Cr Clr Drug Dosing 39.6 ml/min eGFR 39.73 BUN/Creatinine Ratio 24.3 H (10-20) Glucose 104 H (70-99(Fasting)) mg/dl Calcium 8.7 (8.6-10.3) mg/dl Total Bilirubin 1.2 H (0.2-1.0) mg/dl Direct Bilirubin 0.3 H (0-0.2) mg/dl AST 55 H (13-39) U/L ALT 79 H (7-52) U/L Alkaline Phosphatase 214 H (34-104) U/L Total Protein 5.8 L (6.0-8.3) gm/dl Albumin 3.5 (3.4-5.0) gm/dl Lipase 30 (11-82) U/L Anaplasma Smear See Comment Babesia Smear See Comment Babesia microti DNA PCR Pending Lyme Disease Screen Negative (Negative) Diagnostic Findings Liver Ultrasound 04/16/25 14:28 US liver CLINICAL HISTORY: elevated LFTs COMPARISON STUDY: Ultrasound of 03/20/[address] of 01/30/2025. FINDINGS: There is a possible 1.7 cm hypoechoic finding at the pancreatic body versus artifact. Pancreatic tail is obscured by bowel gas. Liver contour is mildly lobular, can be seen due to early cirrhosis. No focal liver abnormality seen. Gallbladder is surgically absent. There is mildly dilated common bile duct measuring 1 cm diameter, can be seen after cholecystectomy. There is normal direction of flow in the portal vein. No ascites. Right kidney shows no hyd ronephrosis. Stable 4 cm cyst at the right kidney. IMPRESSION: 1. Possible early cirrhosis with no focal liver abnormality seen. No ascites. 2. Pancreas not well seen. Possible pancreatic lesion versus artifact. Suggest follow-up CT scan with pancreatic protocol. ACT 112: Negative or not required by law. Electronically signed by: Damian Lazar M.D. 04/16/2025 4:09 PM PG Care Time/CCT Total # of Minutes Spent Total Time Spent with Patient: Total time spent is greater than 50% in coordination of care (as documented) at patient's floor/unit and/or counseling patient: Coding Level of Care Code 53632 SUB INP/OBS CARE 3/50MIN Diagnoses Left hip pain M25.552 Ambulatory dysfunction R26.2
[2025-04-17] MEDS: HEPARIN 100 UNIT/ML 5ML FLUSH FLUSH PRN (11:46)
[2025-04-17] MEDS: POLYETHYLENE (MIRALAX) 17 GM PACK PO SCH (12:06)
[2025-04-17] MEDS: DOCUSATE SODIUM 100 MG CAP PO SCH (12:06)
[2025-04-17] MEDS ORDERED: MoRPHine SULFATE 2 MG/ML CARP IV PRN (15:45)
[2025-04-17] MEDS ORDERED: bisacodyL 10 MG SUPP PR PRN (15:50)
[2025-04-17] MEDS: GABAPENTIN 100 MG CAP PO PRN (17:19)
[2025-04-17] MEDS: NYSTATIN POWDER 15GM BTL EXT SCH (20:15)
[2025-04-17] MEDS: SENNA 8.6 MG TAB PO SCH (20:15)
--- NOTE | 2025-04-18 07:32 | Hospitalist Progress Note ---
Date of Service April 18, 2025 Assessment & Plan (1) Left hip pain: (2) Ambulatory dysfunction: Plan 75yo female with PMHx significant for hx B-cell lymphoma (recent thyroid FNA negative, monitoring R hemipelvis mass), HFpEF, afib (on eliquis), CKD III, hx TIA, hyperparathyroidism, cirrhosis, ROMULO, B12 deficiency presented for LEFT hip pain #L hip pain/ambulatory dysfunction LEFT hip pain reported x 3 months, worse in the past 1 week. No recent trauma/falls, recent steroid pack in March which was reported to not be effective. Was to f/u outpt orthopedics but now w/ pain limiting ability to ambulate without significant assistance. CT hip without acute fracture but notes arthritis (note prior lesion noted on prior PET scan to L femoral head but resolved on repeat imaging). Ortho consulted s/p steroid injection to LEFT hip for troch bursitis on 04/16 Pain control: oxycodone 10mg as needed, changing prn gabapentin to 100mg BID scheduled for neuropathic pain. Morphine available for breakthrough. Holding tylenol/statin/iron w/ LFT/cirrhosis and constipation/iron level Bowel regimen w/ miralax BID, colace BID, senna daily and large BM 04/18. Will continue colace BID but dc senna and have miralax once daily if needed PT/OT consults pending, reports seen this morning and recs for rehab. CM to be notified to f/u for referrals[facility] if [facility] stable control (reports improving) #Hx lymphoma -- following w/ Dr Jade. Prior octreotide infusions for possible carcinoid/B cell lymphoma. Port noted to L chest/no issues. Note repeat PET recently w/ uptake thyroid and R hemipelvis mass and did undergo FNA thyroid FNA which neg for malignancy. Notified primary oncologist about inpatient stay (reports monitoring R hemipelvis mass for now as unable to get bx w/ IR). AFP this year not elevated 2.6 LFTs elevated, RUQ w/ early cirrhosis but no RUQ pain on exam and is s/p irwin in the past. Some prior ductal dilatation on imaging noted but lipase wnl. *Do note PO iron daily and iron level 154 on 03/19 and could worsen liver dysfunction w/ ongoing use (note ferritin was borderline and ?benefit IV transfusion/f/u oncology [facility])- elevated/ongoing use could worsen her chronic stomach pain/joint pain/weakness/constipation Continue to hold statin (CK wnl) and scheduled tylenol as ordered on admission and has improved on repeat F/u oncology [facility] recommended #HFpEF - volume status acceptable and remains on bumex/spironolactone (also for liver dz/early cirrhosis) #Permanent A-fib - rates controlled and remains on eliquis/metoprolol w/ hold parameters #HLD - stain continued on admission, CK wnl but holding w/ myalgias/LFTs. Lyme neg, tick smear negative #GERD - PPI continued. Do note hx gastric bypass and on B12/folate, consider iron IV in f/u pcp #Mood - Bupropion, escitalopram continued. Monitor w/ liver dx for adj Dispo: continued inpatient stay for pain control[facility]. CM notified of therapy eval and to f/u today to work on referrals. [facility] in next day or two pending rehab/bed availability Admission and Anticipated Discharge Date Admission Date: April 15, 2025 Supervising Physician Co-Signing Physician Notes The patient was not seen by me. The chart was reviewed. Case discussed with SKYLAR York. Agree with assessment and plan Subjective Eval this morning, resting in bed. Pain better control but just got oxycodone. Not bad at rest but does have pain w/ standing on it. +BM this morning and some diarrhea following likely overflow. WOrked w/ therapy, will alert CM of rec for rehab. Tylenol/iron/statin on hold. No abdominal pain, LFTs improved. Improvement in dorsiflexion/plantar flexion without pain. Gabapentin effective for near type pain and will make scheduled. No fever/chills, CP/SOB, nausea/vomiting reported Questions/concerns addressed at this time. Physical Exam Physical Exam: General: 75yo female sitting up bed, NAD, reports comfortable HEENT:head atraumatic, normocephalic, mmm,trachea midline Chest: port to R chest, no erythema/drainage Resp: even/unlabored, on room air CV: irregularly irregular, rates 60-80s, no significant m/r/g, no pitting edema GI: +BS, soft/NT : no CVA tenderness MSK/Neuro: L hip/greater trochanter w/ bandaid in place, decreased tenderness, improvement in dorsiflexion/plantar flexion without significant pain and strength intact bilaterally, NVI (reports increased pain w/ standing) Psych: AOx3, cooperative Results & Data Results & Data Vital Signs (Past 12 Hours) Vital Signs Temp Pulse Resp BP Pulse Ox O2 Del Method 04/18/25 07:04 36.3 C L 78 16 135/83 97 Room Air 04/17/25 20:11 36.7 C 95 H 16 115/77 92 Room Air Laboratory Results 04/18/25 Range/Units 05:43 Sodium 140 (136-145) mmol/L Potassium 4.4 (3.5-5.1) mmol/L Chloride 102 (98-107) mmol/L Carbon Dioxide 31 (21-32) mmol/L Anion Gap 7 (3-11) BUN 37 H (6-23) mg/dl Creatinine 1.31 H (0.6-1.2) mg/dl Est Cr Clr Drug Dosing 42.3 ml/min eGFR 43.02 BUN/Creatinine Ratio 28.2 H (10-20) Glucose 99 (70-99(Fasting)) mg/dl Calcium 9.1 (8.6-10.3) mg/dl Total Bilirubin 1.2 H (0.2-1.0) mg/dl Direct Bilirubin 0.3 H (0-0.2) mg/dl AST 32 (13-39) U/L ALT 56 H (7-52) U/L Alkaline Phosphatase 189 H (34-104) U/L Total Protein 5.9 L (6.0-8.3) gm/dl Albumin 3.6 (3.4-5.0) gm/dl PG Care Time/CCT Total # of Minutes Spent Total Time Spent with Patient: Total time spent is greater than 50% in coordination of care (as documented) at patient's floor/unit and/or counseling patient: Coding Level of Care Code 87635 SUB INP/OBS CARE 3/50MIN Diagnoses Left hip pain M25.552 Ambulatory dysfunction R26.2
[2025-04-18 08:17] LABS: Albumin Level 3.6 gm/dl (3.4-5.0); BUN Creatinine Ratio 28.2 (10-20); Bilirubin Direct 0.3 mg/dl (0-0.2); Bilirubin,Total 1.2 mg/dl (0.2-1.0); Calcium 9.1 mg/dl (8.6-10.3); Creatinine Clr Calc Pharmacy 42.3 ml/min; Potassium 4.4 mmol/L (3.5-5.1); Total Protein 5.9 gm/dl (6.0-8.3)
[2025-04-18] MEDS: GABAPENTIN 100 MG CAP PO SCH (11:05)
[2025-04-19 06:24] LABS: Albumin Globulin Ratio 1.3 (0.9-2); Albumin Level 3.4 gm/dl (3.4-5.0); BUN Creatinine Ratio 30.4 (10-20); Calcium 9.1 mg/dl (8.6-10.3); Creatinine Clr Calc Pharmacy 41.1 ml/min; Globulin 2.7 gm/dl (2.5-4.0); Magnesium 2.4 mg/dl (1.7-2.4); Potassium 4.6 mmol/L (3.5-5.1); Total Protein 6.1 gm/dl (6.0-8.3)
[2025-04-19 14:00] VITALS: RESP 16
--- NOTE | 2025-04-19 14:32 | Hospitalist Progress Note ---
Date of Service April 19, 2025 Assessment & Plan (1) Left hip pain: (2) Ambulatory dysfunction: Plan 75yo female with PMHx significant for hx B-cell lymphoma (recent thyroid FNA negative, monitoring R hemipelvis mass), HFpEF, afib (on eliquis), CKD III, hx TIA, hyperparathyroidism, cirrhosis, ROMULO, B12 deficiency presented for LEFT hip pain x 3 months, worse over past 1 week prior to admission. No recent trauma/falls. Recent steroid pack in March 2025 which was reported to be not effective. Hip CT without acute fracture but notes arthritis (note prior lesion noted on prior PET scan to left femoral head but resolved on repeat imaging). #Left hip pain/ambulatory dysfunction/trochanteric bursitis Ortho consulted - s/p steroid injection to LEFT hip for trochanteric bursitis on 04/16 Pain control: oxycodone 10mg as needed, gabapentin 100mg BID scheduled for neuropathic pain Holding tylenol/statin/iron w/ LFT/cirrhosis and constipation/iron level Bowel regimen w/ miralax BID, colace BID, senna daily and large BM 04/18. Will continue colace BID but dc senna and have miralax once daily if needed PT/OT recommend rehab, accepted at [facility] #Hx lymphoma -- following w/ Dr Jade. Prior octreotide infusions for possible carcinoid/B cell lymphoma. Port noted to L chest/no issues. Note repeat PET recently w/ uptake thyroid and R hemipelvis mass and did undergo FNA thyroid FNA which neg for malignancy. Notified primary oncologist about inpatient stay (reports monitoring R hemipelvis mass for now as unable to get bx w/ IR). AFP this year not elevated 2.6 LFTs elevated, RUQ w/ early cirrhosis but no RUQ pain on exam and is s/p irwin in the past. Some prior ductal dilatation on imaging noted but lipase wnl. *Do note PO iron daily and iron level 154 on 03/19 and could worsen liver dysfunction w/ ongoing use (note ferritin was borderline and ?benefit IV transfusion/f/u oncology [facility])- elevated/ongoing use could worsen her chronic stomach pain/joint pain/weakness/constipation Continue to hold statin (CK wnl) and scheduled tylenol as ordered on admission and has improved on repeat F/u oncology [facility] recommended #HFpEF - volume status acceptable and remains on bumex/spironolactone (also for liver dz/early cirrhosis) #Permanent A-fib - rates controlled and remains on eliquis/metoprolol w/ hold parameters #HLD - stain continued on admission, CK wnl but holding w/ myalgias/LFTs. Lyme neg, tick smear negative #GERD - PPI continued. Do note hx gastric bypass and on B12/folate, consider iron IV in f/u pcp #Mood - Bupropion, escitalopram continued. Monitor w/ liver dx for adj Dispo: Medically stable for discharge. Anticipate discharge to [facility] 04/20 if bed available Discontinued IV morphine Discussed discharge planning with case management Admission and Anticipated Discharge Date Admission Date: April 18, 2025 Subjective Patient seen and examined at bedside. She reports improvement in her pain. She states she has some pain with ambulation / weight bearing but only minimal if any pain at rest. She states she slept well overnight and has a good appetite. Waiting on rehab placement. No additional complaints or concerns at this time. Physical Exam Physical Exam: General: No acute distress, nondiaphoretic, well-developed, well-nourished. Flat affect. Cardiac: Irregular rhythm, rate controlled in 80s without murmurs gallops or rubs. Pulm: Clear to auscultation bilaterally without wheezes, rales or rhonchi. Normal respiratory effort. 95% on room air. Abdominal: Soft, nontender, nondistended. Bowel sounds present. MSK: Increased left hip pain with weightbearing. Sensation and motor function intact in LE. Neuro: A&O x3. No focal neurological deficits. Results & Data Results & Data Vital Signs (Past 12 Hours) Vital Signs Temp Pulse Pulse Resp BP Pulse Ox O2 Del Method 04/19/25 14:00 97.9 F 88 16 137/84 95 Room Air 04/19/25 12:21 97.7 F 98 H 18 121/82 94 Room Air 04/19/25 07:30 Room Air 04/19/25 07:21 97.3 F L 82 17 134/81 93 Room Air Laboratory Results Reviewed CMP Diagnostic Findings Reviewed hip CT, Liver US PG Care Time/CCT Total # of Minutes Spent Total Time Spent with Patient: Total time spent is greater than 50% in coordination of care (as documented) at patient's floor/unit and/or counseling patient: Coding Level of Care Code 55620 SUB INP/OBS CARE 50MIN Diagnoses Left hip pain M25.552 Ambulatory dysfunction R26.2
[2025-04-19 19:46] VITALS: O2SAT 96
[2025-04-20 07:04] VITALS: BP 159/95; PULSE 83; TEMP 97.5
--- NOTE | 2025-04-20 13:07 | Discharge Summary ---
Discharge Summary Date of Service April 20, 2025 Principal Dx & Hospital Course #1 = Principal Diagnosis (1) Left hip pain: (2) Ambulatory dysfunction: (3) Trochanteric bursitis, left hip: Plan 75yo female with PMHx significant for hx B-cell lymphoma (recent thyroid FNA negative, monitoring R hemipelvis mass), HFpEF, afib (on eliquis), CKD III, hx TIA, hyperparathyroidism, cirrhosis, ROMULO, B12 deficiency presented for LEFT hip pain x 3 months, worse over past 1 week prior to admission. No recent trauma/falls. Recent steroid pack in March 2025 which was reported to be not effective. Hip CT without acute fracture but notes arthritis (note prior lesion noted on prior PET scan to left femoral head but resolved on repeat imaging). #Left hip pain/ambulatory dysfunction/trochanteric bursitis Ortho consulted - s/p steroid injection to LEFT hip for trochanteric bursitis on 04/16. Follow-up as needed outpatient Pain control: oxycodone 10mg as needed, gabapentin 100mg BID scheduled for neuropathic pain Holding tylenol/statin/iron w/ LFT/cirrhosis and constipation/iron level Bowel regimen w/ colace BID but dc senna and have miralax once daily if needed PT/OT recommend rehab, accepted at [facility] #Hx lymphoma -- following w/ Dr Jade. Prior octreotide infusions for possible carcinoid/B cell lymphoma. Port noted to L chest/no issues. Note repeat PET recently w/ uptake thyroid and R hemipelvis mass and did undergo FNA thyroid FNA which neg for malignancy. Notified primary oncologist about inpatient stay (reports monitoring R hemipelvis mass for now as unable to get bx w/ IR). AFP this year not elevated 2.6 LFTs elevated, RUQ w/ early cirrhosis but no RUQ pain on exam and is s/p irwin in the past. Some prior ductal dilatation on imaging noted but lipase wnl. *Do note PO iron daily and iron level 154 on 03/19 and could worsen liver dysfunction w/ ongoing use (note ferritin was borderline and ?benefit IV transfusion/f/u oncology at [facility]) - elevated/ongoing use could worsen her chronic stomach pain/joint pain/weakness/constipation F/u oncology at [facility] recommended #HFpEF - volume status acceptable and remains on bumex/spironolactone (also for liver dz/early cirrhosis) #Permanent A-fib - rates controlled and remains on eliquis/metoprolol w/ hold parameters #HLD - stain continued on admission, CK wnl but holding w/ myalgias/LFTs. Lyme neg, tick smear negative #GERD - PPI continued. Do note hx gastric bypass and on B12/folate, consider iron IV in f/u pcp #Mood - Bupropion, escitalopram continued. Monitor w/ liver dx for adj Dispo: Discharged to [facility] 04/20 Notes For Next Care Provider Consider IV transfusion for borderline low ferritin Recommend orthopedics follow-up outpatient as needed for further trochanteric bursitis injections Recommend oncology follow-up with Dr. Jade Medication Changes From Visit New meds: Gabapentin 100 mg twice daily Oxycodone 5-10 mg as needed for moderatesevere pain Voltaren gel Bowel regimen with Senokot, docusate, MiraLAX Held/discontinued meds: Atorvastatin Iron supplement Tylenol Admission HPI Per Admitting Provider 75-year-old female PMHx HLD, prediabetes, HFpEF, A-fib on Eliquis, B-cell lymphoma, cirrhosis, CKD stage III, history of TIA, hyperparathyroidism, non- Hodgkin's lymphoma, sleep apnea, and vitamin B12 and D deficiency presenting for L hip pain x 3 months, worsening the day of arrival. States initially, around 2- 3 months ago, she was at the gym exercising and feels as though she may have irritated the area at that point. Since then, she has been having worsening L hip pain, mainly noticeable whenever she is adjusting from positions such as going sitting to standing or vice versa. States that the pain mainly waxes and wanes and is normally a sharp pain rather localized to her lateral hip, with radiation to the buttocks. She has never experienced any numbness or tingling. States that on the day of arrival, she was try to get out of bed and was unable to because the pain was severe. States it was always a 10 out of 10 pain and never is less than this. States that the difference today was that it was a constant sharp pain compared to only with movement. At time of evaluation, the pain is still rated 10 out of 10 by the patient but is described as soreness and burning compared to sharp pain. No reported trauma or injuries per patient. States that she is not very fond of urinating into the external catheter and that is where she is holding it, but is not having LUTS otherwise. Overall denying chest pain, shortness of breath, palpitations, abdominal pain, N/V/D/C, numbness/tingling, fever/chills, URI symptoms, weakness, or syncope. ED evaluation reveals no leukocytosis, H&H stable; PT/INR WNL, APTT 54; CMP chloride 108, BUN 33, creatinine 1.3, ratio 23.9, glucose 105, bilirubin 1.6, AST 96, alkaline phosphatase 191; L hip XR no definite fracture, OA.; Provided with morphine 4 mg IV x 2 and Tylenol 1 g IV in ED. Please see Dr. Bates's attestation for adjustments/additions to treatment plan. Discharge Exam General: No acute distress, nondiaphoretic, well-developed, well-nourished. Cardiac: Irregular rhythm, rate controlled in 80s without murmurs gallops or rubs. Pulm: Clear to auscultation bilaterally without wheezes, rales or rhonchi. Normal respiratory effort. 96% on room air. Abdominal: Soft, nontender, nondistended. Bowel sounds present. MSK: Increased left hip pain with weightbearing. Sensation and motor function intact in LE. Neuro: A&O x3. No focal neurological deficits. Discharge Plan Discharge Items Patient Disposition: Transfer Inpatient Rehab Fac Reason For Visit: AMBULATORY DYSFUNCTION, SEVERE L HIP PAIN Discharge Diagnosis: Trochanteric bursitis, left hip pain Condition on Discharge: Fair Activity: Per Instructions section Non-emergency contact: Primary Care Provider and Specialist Call non-emergency contact if: you have any medication questions and your symptoms worsen Follow-up/Referrals: Christopher Guevara MD [Primary Care Provider] - (Follow-up in 1-2 weeks) Lily Jade MD [Physician] - (Follow-up as directed) Ciro Marinelli PA-C [Physician Account Services Specialist] - (Follow-up as directed) Diet: Heart Healthy Addtl Attending Provider Instructions: Tea, You have been hospitalized for LEFT hip pain. Orthopedics was consulted and appeared like bursitis and provided with steroid injection and are to continue ice/medical management and follow up outpatient as needed. We have used oxycodone 10mg as needed for pain and can continue WITH BOWEL regimen to prevent constipation. Would recommend colace twice daily, senna once daily and miralax as needed. Please HOLD OFF TYLENOL for now given elevated LFT (liver function testing) which are improving. Hold off atorvastatin for now as well as can cause worse LFTs and myalgias at least for now. Can likely resume in next couple of days but if having worse pains on will need to discuss with primary care about possibly switching or reducing the dose. Your iron studies were ELEVATED earlier this year and would recommend STOPPING the oral iron for now as this can cause liver issues when taking too much and your hemoglobin is excellent and this can also contribute to constipation which we would like to avoid. Please follow up with primary care, orthopedics, and oncology after discharge to monitor your progress after discharge. Please return to the ER with any increased pain, swelling, fever, or for any other symptoms concerning for you. It has been a pleasure being a part of the medical team providing for you while you have been in the hospital. Take care! Pending Studies at Discharge: No Stand-Alone Forms: My SimpleOrder, Smoking Cessation Skilled Items Patient informed of condition?: Yes DNR: No Discharge Level of Care: Acute rehab Communicable Disease: No Discharge Prognosis: Stable Lines: None Urinary Catheter: No Medications and DC Order Prescriptions: New gabapentin 100 mg Capsule 100 mg PO BID PRN (Reason: neuropathic pain) Qty: 30 0RF oxycodone 5 mg Tablet 5 - 10 mg PO Q4H PRN (Reason: moderate - severe pain) Qty: 20 0RF docusate sodium 100 mg Capsule 100 mg PO BID Qty: 60 0RF sennosides [Senokot] 8.6 mg Tablet 8.6 mg PO HS Qty: 30 0RF polyethylene glycol 3350 [Miralax] 17 gram Powder In Packet 17 g PO DAILY PRN (Reason: constipation) Qty: 30 0RF diclofenac sodium [Voltaren Arthritis Pain] 1 % Gel 2 g EXT BID Qty: 50 0RF Continued cholecalciferol (vitamin D3) [Vitamin D3] 25 mcg (1,000 unit) capsule 2,000 unit PO DAILY Hold Instructions: weekly dose bumetanide 2 mg tablet 2 mg PO QAM Rx Instructions: 2 mg po qam.May increase to BID prn for weight gain, SOB, swelling folic acid 1 mg tablet 1,000 mg PO QAM Patient Comments: CONFIRMED W/ 07/31 spironolactone [Aldactone] 25 mg tablet 12.5 mg PO QAM Eliquis 5 mg tablet 5 mg PO BID Qty: 180 3RF Hold Instructions: HOLD TILL PCP cyanocobalamin (vitamin B-12) 1,000 mcg/mL solution 1,000 mcg IM .COMPLEX PRN (Reason: B12 Deficiency ) Qty: 4 1RF Rx Instructions: 1,000 mcg intramuscularly every week x 4 weeks then once monthly thereafter; PRN; escitalopram oxalate [Lexapro] 10 mg tablet 10 mg PO DAILY Qty: 90 3RF bupropion HCl 150 mg tablet extended release 24 hr 150 mg PO QAM Qty: 90 3RF metoprolol tartrate 50 mg tablet 50 mg PO BID Qty: 180 3RF magnesium oxide 400 mg magnesium Capsule 400 mg PO HS pantoprazole [Protonix] 40 mg tablet,delayed release (DR/EC) 40 mg PO QAM Held ferrous sulfate [FeroSul] 325 mg (65 mg iron) tablet 325 mg PO DAILY Qty: 30 3RF Hold Instructions: Provider's Order oxycodone 5 mg tablet 5 mg PO Q6H PRN (Reason: pain) Hold Instructions: Provider's Order atorvastatin 40 mg tablet 40 mg PO QAM Hold Instructions: Resume on 04/24/25. Rx Instructions: TAKE 1 TABLET BY MOUTH DAILY IN THE MORNING Discharge Orders: Discharge Order (Routine); Ordered 04/20/25 Ordered By: Amanda Muñoz Admission Data Admit Date/Time: 04/18/25 10:08 Attending Provider: Estela Alex Admit Provider: Darius Bates Primary Care Provider: Christopher Guevara Other Providers: Darius Bates; [facility]; Ciro Carmona; Amanda Wolff Other Interventions: Discharge Summary Assessment (RN) Last Done: 04/20/25 13:56 Hospital Stay Data Consultations 04/15/25 18:37 ED Decision to Admit Stat 04/15/25 18:39 ED Decision to Admit Stat 04/15/25 21:12 Consult Orthopedic Surgery Routine Diagnostic Imagining Performed Hip CT 04/15/25 13:13 Clinical history: Severe pain Technique: Axial computed tomography images were obtained of the left hip without intravenous contrast. Sagittal and coronal reconstructions were obtained Findings: No fracture is identified. No subluxation or dislocation is seen. There is mild to moderate severity left hip osteoarthritis. No focal osseous lesion is evident The visualized musculature appears unremarkable. No soft tissue mass or fluid collection is seen. No foreign body is evident Impression: 1. No definite fracture 2. Osteoarthritis Electronically signed by Eloy Hudson 04-15-2025 6:07 PM Liver Ultrasound 04/16/25 14:28 US liver CLINICAL HISTORY: elevated LFTs COMPARISON STUDY: Ultrasound of 03/20/[address] of 01/30/2025. FINDINGS: There is a possible 1.7 cm hypoechoic finding at the pancreatic body versus artifact. Pancreatic tail is obscured by bowel gas. Liver contour is mildly lobular, can be seen due to early cirrhosis. No focal liver abnormality seen. Gallbladder is surgically absent. There is mildly dilated common bile duct measuring 1 cm diameter, can be seen after cholecystectomy. There is normal dir ection of flow in the portal vein. No ascites. Right kidney shows no hydronephrosis. Stable 4 cm cyst at the right kidney. IMPRESSION: 1. Possible early cirrhosis with no focal liver abnormality seen. No ascites. 2. Pancreas not well seen. Possible pancreatic lesion versus artifact. Suggest follow-up CT scan with pancreatic protocol. ACT 112: Negative or not required by law. Electronically signed by: Damian Lazar M.D. 04/16/2025 4:09 PM Pending Results Patient Have Any Pending Studies at Discharge: No Discharge Instructions Given to Patient (Per Discharging Provider) Tea, You have been hospitalized for LEFT hip pain. Orthopedics was consulted and appeared like bursitis and provided with steroid injection and are to continue ice/medical management and follow up outpatient as needed. We have used oxycodone 10mg as needed for pain and can continue WITH BOWEL regimen to prevent constipation. Would recommend colace twice daily, senna once daily and miralax as needed. Please HOLD OFF TYLENOL for now given elevated LFT (liver function testing) which are improving. Hold off atorvastatin for now as well as can cause worse LFTs and myalgias at least for now. Can likely resume in next couple of days but if having worse pains on will need to discuss with primary care about possibly switching or reducing the dose. Your iron studies were ELEVATED earlier this year and would recommend STOPPING the oral iron for now as this can cause liver issues when taking too much and your hemoglobin is excellent and this can also contribute to constipation which we would like to avoid. Please follow up with primary care, orthopedics, and oncology after discharge to monitor your progress after discharge. Please return to the ER with any increased pain, swelling, fever, or for any other symptoms concerning for you. It has been a pleasure being a part of the medical team providing for you while you have been in the hospital. Take care! Supervising Physician Co-Signing Physician Notes SKYLAR Supervision Note: I did not personally see or examine the patient today, but I verified all baxter points of SKYLAR Muñoz's assessment and plan with the following ex ceptions/additions: None Total Time Total Time Spent Total Time Spent (In Minutes): Greater than 30 minutes spent completing this discharge process including direct patient care, medication reconciliation, documentation, review of labs and images, and coordination of care. Coding Level of Care Code 90381 INP/OBS DISCH >30 MIN Diagnoses Left hip pain M25.552 Ambulatory dysfunction R26.2 Trochanteric bursitis, left hip M70.62
[2025-04-21 05:24] LABS: Babesia microti DNA Not Detected (Not Detected)
== END 2025-04-20 14:26 | DRG 558 ==
LOC: 3E 12:50 → ED 12:50 → SUATTDRO 19:43 → 3E 20:28 → SUATTDRO 04-18 10:08